=== PATIENT | female | born 1965 | race Caucasian/White ===

== ENCOUNTER 2022-12-15 07:59 | Outpatient (OUT) | payer OTHER, SELFPAY ==
--- NOTE | 2022-12-15 08:07 | CT_ITS ---
The [address] [address] Patient Name: JOSE THOMAS MRN: [id number] date: 1965 Sex: F Assigned Patient Location: CT Current Patient Location: CT Accession/Order Number: [id number] Exam Date: 12/15/2022 08:12 Report Date: 12/15/2022 09:00 At the request of: KAITLYN JOY Procedure: CT lung screening low-dose EXAMINATION: CT lung screening low-dose HISTORY: Nicotine dependence F17.210 COMPARISON: No relevant comparison available. TECHNIQUE: Axial, Coronal, and Sagittal images were created without the administration of IV contrast material. Dose reduction techniques were achieved by using automated exposure control and/or adjustment of mA and/or kV according to patient size and/or use of iterative reconstruction technique. FINDINGS: LUNGS: Mild centrilobular and paraseptal emphysema with an upper lobe predominance. 0.8 x 0.5 cm subpleural density posterior medial left upper lobe axial image 32, nonspecific. Few scattered punctate pulmonary nodules, nonspecific PLEURA: No mass, effusion, or pneumothorax. VASCULATURE: No abnormality. KAY: No mass or pathologic adenopathy. MEDIASTINUM: No mass or pathologic adenopathy. CARDIAC: No enlargement, pericardial thickening, or significant calcification. AORTA: No aneurysm or dissection. CHEST WALL: No mass or axillary adenopathy BONES: No bone lesion or fracture. LIMITED ABDOMEN: Surgical clips from cholecystectomy OTHER: Negative. IMPRESSION: LUNG SCREENING: Lung-RADS Category 2- Benign Appearance or Behavior. Nodules with a very low likelihood of becoming a clinically active cancer due to size or lack of growth. 2. Continue annual screening with LDCT in 12 months. Electronically authenticated by: GUERRERO VELASQUEZ Date: 12/15/2022 09:00
== END 2022-12-15 08:00 ==
LOC: CT 08:03
PROVIDERS: PCP Family Medicine; Visit Provider Family Medicine
DX: F17.210 Nicotine dependence, cigarettes, uncomplicated (principal)
CPT/HCPCS: 71271

== ENCOUNTER 2023-01-11 09:04 | Outpatient (OUT) | payer OTHER, SELFPAY ==
--- NOTE | 2023-01-11 09:09 | FL_ITS ---
The [address] [address] Patient Name: JOSE THOMAS MRN: [id number] date: 1965 Sex: F Assigned Patient Location: [place] Current Patient Location: [place] Accession/Order Number: [id number] Exam Date: 01/11/2023 09:30 Report Date: 01/11/2023 20:05 At the request of: KAITLYN JOY Procedure: FL upper GI w air PROCEDURE: FL upper GI w air, FL small bowel follow through, FL cineradiography COMPARISON: None. HISTORY: Gastroesophageal Reflux Disease K21.9 TECHNIQUE: An air contrast upper gastrointestinal series with small bowel follow-through was performed in the usual manner. Standard level fluoroscopic mode of operation utilized. FINDINGS: ESOPHAGUS:Normal. No visible obstruction, dilatation, reflux or hernia STOMACH: Normal. No obstruction, mass, or ulceration. Normal motility. DUODENUM:Normal. No ulceration or diverticulum. OTHER: The patient vomited during the procedure and declined further oral contrast. Oral contrast seen flowing through the duodenum and proximal to mid jejunum with no contrast identified past the mid jejunum at 120 minutes. The patient declined further imaging. FL/FL upper GI w air IMPRESSION: No gastroesophageal reflux disease Normal appearance of the stomach No contrast identified past the mid jejunum at 2 hours Electronically authenticated by: GUERRERO VELASQUEZ Date: 01/11/2023 20:05
--- NOTE | 2023-01-11 09:09 | FL_ITS ---
The [address] [address] Patient Name: JOSE THOMAS MRN: [id number] date: 1965 Sex: F Assigned Patient Location: [place] Current Patient Location: [place] Accession/Order Number: [id number] Exam Date: 01/11/2023 10:05 Report Date: 01/11/2023 20:05 At the request of: KAITLYN JOY Procedure: FL small bowel follow through PROCEDURE: FL upper GI w air, FL small bowel follow through, FL cineradiography COMPARISON: None. HISTORY: Gastroesophageal Reflux Disease K21.9 TECHNIQUE: An air contrast upper gastrointestinal series with small bowel follow-through was performed in the usual manner. Standard level fluoroscopic mode of operation utilized. FINDINGS: ESOPHAGUS:Normal. No visible obstruction, dilatation, reflux or hernia STOMACH: Normal. No obstruction, mass, or ulceration. Normal motility. DUODENUM:Normal. No ulceration or diverticulum. OTHER: The patient vomited during the procedure and declined further oral contrast. Oral contrast seen flowing through the duodenum and proximal to mid jejunum with no contrast identified past the mid jejunum at 120 minutes. The patient declined further imaging. FL/FL small bowel follow through IMPRESSION: No gastroesophageal reflux disease Normal appearance of the stomach No contrast identified past the mid jejunum at 2 hours Electronically authenticated by: GUERRERO VELASQUEZ Date: 01/11/2023 20:05
== END 2023-01-11 09:05 | disposition home or self-care (01) ==
LOC: FL 09:04
PROVIDERS: PCP Family Medicine; Visit Provider Family Medicine
DX: K21.9 Gastro-esophageal reflux disease without esophagitis (principal); E11.9 Type 2 diabetes mellitus without complications
CPT/HCPCS: 74246; 74248; 76120

== ENCOUNTER 2023-07-28 13:53 | Outpatient (OUT) | payer OTHER, SELFPAY | END 2023-07-28 13:54 | disposition home or self-care (01) | LOC: MN 13:54 | PROVIDERS: PCP Family Medicine | DX: E11.9 Type 2 diabetes mellitus without complications (principal) | CPT/HCPCS: G0108 ==

== ENCOUNTER 2023-09-23 09:41 | Outpatient (OUT) | payer OTHER, SELFPAY ==
[2023-09-23 09:58] LABS: Basophils Percent Auto 0.6 % (0.2-2.0); Eosinophils Absolute Auto 0.1 10^3/uL (0.0-0.7); Eosinophils Percent Auto 1.6 % (0.9-7.0); Hematocrit 32.9 % (36.0-48.0); Hemoglobin 11.3 g/dL (12.0-16.0); Immature Granulocytes Abs Auto 0.11 10^3/uL (0.00-0.03); Immature Granulocytes Pct Auto 1.6 % (0.0-0.5); Lymphocytes Absolute Auto 1.5 10^3/uL (1.2-3.8); Lymphocytes Percent Auto 21.7 % (20.5-60.0); Mean Corpuscular HGB Conc 34.3 g/dL (29.9-35.2); Mean Corpuscular Hemoglobin 41.4 pg (26.7-34.0); Mean Platelet Volume 10.1 fL (9.5-13.5); Monocytes Absolute Auto 0.4 10^3/uL (0.3-0.8); Neutrophils Absolute Auto 4.6 10^3/uL (1.4-6.5); Neutrophils Percent Auto 68.5 % (43.0-75.0); Platelet Count 192 10^3/uL (150-450); Red Blood Count 2.73 10^6/uL (4.20-5.40); Red Cell Distribution Width 14.9 % (11.0-15.0); White Blood Count 6.7 10^3/uL (4.0-11.0)
[2023-09-23 10:31] LABS: Mean Corpuscular Volume 120.5 fL (81.0-99.0)
[2023-09-23 11:26] LABS: Estimated Average Glucose 151 mg/dL; Glycohemoglobin A1C 6.9 % (4.5-6.2)
[2023-09-23 11:40] LABS: Free T4 1.23 ng/dL (0.76-1.46)
[2023-09-23 11:44] LABS: Alanine Aminotransferase 48 U/L (14-59); Albumin Level 3.6 g/dL (3.4-5.0); Alkaline Phosphatase 157 U/L (46-116); Anion Gap 13.9; Aspartate Amino Transferase 25 U/L (15-37); BUN Creatinine Ratio 17.9; Bilirubin Total 0.7 mg/dL (0.2-1.0); Calcium 8.8 mg/dL (8.5-10.1); Carbon Dioxide 28.3 mmol/L (21.0-32.0); Chloride 100 mmol/L (98-107); Chol HDL Ratio 5.2; Cholesterol 151 mg/dL (<=200); Estimated GFR (African America >60 (>=60); Estimated GFR (Non-African Ame >60 (>=60); Globulin 3.6 g/dL; Glucose 138 mg/dL (74-106); HDL Cholesterol 29 mg/dL (40-60); Potassium 4.2 mmol/L (3.5-5.1); Sodium 138 mmol/L (136-145); Thyroid Stimulating Hormone 1.845 uIU/mL (0.358-3.740); Total Protein 7.2 g/dL (6.4-8.2); Triglycerides 165 mg/dL (<=150)
== END 2023-09-23 09:42 | disposition home or self-care (01) ==
LOC: LAB 09:44
PROVIDERS: PCP Family Medicine; Visit Provider Family Medicine
DX: Z00.00 Encounter for general adult medical examination without abnormal findings (principal); E78.00 Pure hypercholesterolemia, unspecified; E03.9 Hypothyroidism, unspecified; K57.30 Diverticulosis of large intestine without perforation or abscess without bleeding; R53.83 Other fatigue
CPT/HCPCS: 36415; 80053; 80061; 83036; 84439; 84443; 84481; 85025

== ENCOUNTER 2023-11-24 08:07 | Outpatient (OUT) | payer OTHER, SELFPAY ==
--- NOTE | 2023-11-24 08:12 | FL_ITS ---
The [address] [address] Patient Name: JOSE THOMAS MRN: [id number] date: 1965 Sex: F Assigned Patient Location: [place] Current Patient Location: [place] Accession/Order Number: [id number] Exam Date: 11/24/2023 08:20 Report Date: 11/24/2023 10:31 At the request of: KAITLYN JOY Procedure: FL cineradiography EXAMINATION: FL upper GI w air, FL small bowel follow through, FL cineradiography HISTORY: Gastroesophageal Reflux Disease K21.9 COMPARISON: No relevant comparison available. TECHNIQUE: Upper GI and small bowel series was performed in the usual manner. Standard level fluoroscopic mode of operation utilized. FINDINGS: ESOPHAGUS: Normal. No visible obstruction, dilatation, reflux or hernia. STOMACH: Normal. No obstruction, mass, or ulceration. Normal motility. DUODENUM: Normal. No ulceration or diverticulum. JEJUNUM: Normal. Normal motility. No obstruction or visible lesion. ILEUM: Normal. Normal motility. No obstruction or visible lesion. OTHER: Internal Communications Specialist image demonstrates rotatory dextrocurvature of the spine. Surgical clips from cholecystectomy. Degenerative spondylosis. Small bowel transit time between 30 and 45 minutes FL/FL cineradiography IMPRESSION: Normal upper GI and small bowel follow-through Electronically authenticated by: GUERRERO VELASQUEZ Date: 11/24/2023 10:31
--- NOTE | 2023-11-24 08:12 | FL_ITS ---
The [address] [address] Patient Name: JOSE THOMAS MRN: [id number] date: 1965 Sex: F Assigned Patient Location: [place] Current Patient Location: [place] Accession/Order Number: [id number] Exam Date: 11/24/2023 08:20 Report Date: 11/24/2023 10:31 At the request of: KAITLYN JOY Procedure: FL small bowel follow through EXAMINATION: FL upper GI w air, FL small bowel follow through, FL cineradiography HISTORY: Gastroesophageal Reflux Disease K21.9 COMPARISON: No relevant comparison available. TECHNIQUE: Upper GI and small bowel series was performed in the usual manner. Standard level fluoroscopic mode of operation utilized. FINDINGS: ESOPHAGUS: Normal. No visible obstruction, dilatation, reflux or hernia. STOMACH: Normal. No obstruction, mass, or ulceration. Normal motility. DUODENUM: Normal. No ulceration or diverticulum. JEJUNUM: Normal. Normal motility. No obstruction or visible lesion. ILEUM: Normal. Normal motility. No obstruction or visible lesion. OTHER: Senior Pensions Administrator image demonstrates rotatory dextrocurvature of the spine. Surgical clips from cholecystectomy. Degenerative spondylosis. Small bowel transit time between 30 and 45 minutes FL/FL small bowel follow through IMPRESSION: Normal upper GI and small bowel follow-through Electronically authenticated by: GUERRERO VELASQUEZ Date: 11/24/2023 10:31
--- NOTE | 2023-11-24 08:12 | FL_ITS ---
The [address] [address] Patient Name: JOSE THOMAS MRN: [id number] date: 1965 Sex: F Assigned Patient Location: [place] Current Patient Location: [place] Accession/Order Number: [id number] Exam Date: 11/24/2023 08:20 Report Date: 11/24/2023 10:31 At the request of: KAITLYN JOY Procedure: FL upper GI w air EXAMINATION: FL upper GI w air, FL small bowel follow through, FL cineradiography HISTORY: Gastroesophageal Reflux Disease K21.9 COMPARISON: No relevant comparison available. TECHNIQUE: Upper GI and small bowel series was performed in the usual manner. Standard level fluoroscopic mode of operation utilized. FINDINGS: ESOPHAGUS: Normal. No visible obstruction, dilatation, reflux or hernia. STOMACH: Normal. No obstruction, mass, or ulceration. Normal motility. DUODENUM: Normal. No ulceration or diverticulum. JEJUNUM: Normal. Normal motility. No obstruction or visible lesion. ILEUM: Normal. Normal motility. No obstruction or visible lesion. OTHER: Industrial Relations Worker image demonstrates rotatory dextrocurvature of the spine. Surgical clips from cholecystectomy. Degenerative spondylosis. Small bowel transit time between 30 and 45 minutes FL/FL upper GI w air IMPRESSION: Normal upper GI and small bowel follow-through Electronically authenticated by: GUERRERO VELASQUEZ Date: 11/24/2023 10:31
== END 2023-11-24 08:08 | disposition home or self-care (01) ==
LOC: FL 08:07
PROVIDERS: PCP Family Medicine; Visit Provider Family Medicine
DX: K21.9 Gastro-esophageal reflux disease without esophagitis (principal)
CPT/HCPCS: 74246; 74248; 76120

== ENCOUNTER 2023-12-28 11:16 | Outpatient (OUT) | payer OTHER, SELFPAY ==
--- NOTE | 2023-12-28 | US_ITS ---
The [address] [address] Patient Name: JOSE THOMAS MRN: [id number] date: 1965 Sex: F Assigned Patient Location: [place] Current Patient Location: [place] Accession/Order Number: [id number] Exam Date: 12/28/2023 11:30 Report Date: 12/28/2023 13:04 At the request of: KAITLYN JOY Procedure: US venous doppler LE LT EXAMINATION: US venous doppler LE LT HISTORY: Cellulitis ; trauma to left gaona one week ago COMPARISON: No relevant comparison available. FINDINGS: REGION: Left lower extremity THROMBI: None. COMPRESSIBILITY: Normal compressibility. FLOW: Normal waveform and antegrade flow between 5 and 20 cm/s. OTHER: None. US/US venous doppler LE LT IMPRESSION: 1. No deep vein thrombus within the left lower extremity. Electronically authenticated by: TERELL HINTON Date: 12/28/2023 13:04
--- NOTE | 2023-12-28 11:22 | XR_ITS ---
The [address] [address] Patient Name: JOSE THOMAS MRN: [id number] date: 1965 Sex: F Assigned Patient Location: Current Patient Location: Accession/Order Number: [id number] Exam Date: 12/28/2023 11:25 Report Date: 12/29/2023 13:40 At the request of: KAITLYN JOY Procedure: XR ankle LT min 3V PROCEDURE: XR tibia fibula LT 2V, XR ankle LT min 3V HISTORY: Cellulitis COMPARISON: None. FINDINGS: BONES:Prior mechanical fusion of the first tarsal-metatarsal joint. Unremarkable knee joint and ankle joint. No fracture, acute abnormality, or significant arthropathy. SOFT TISSUES:No visible soft tissue swelling. EFFUSION:None visible. OTHER: Negative. XR/XR ankle LT min 3V IMPRESSION: 1. No acute bone abnormality. 2. No significant degenerative joint disease. 3. No suspicious radiopaque foreign body. Electronically authenticated by: TERELL HINTON Date: 12/29/2023 13:40
--- NOTE | 2023-12-28 11:22 | XR_ITS ---
The [address] [address] Patient Name: JOSE THOMAS MRN: [id number] date: 1965 Sex: F Assigned Patient Location: Current Patient Location: Accession/Order Number: [id number] Exam Date: 12/28/2023 11:25 Report Date: 12/29/2023 13:40 At the request of: KAITLYN JOY Procedure: XR tibia fibula LT 2V PROCEDURE: XR tibia fibula LT 2V, XR ankle LT min 3V HISTORY: Cellulitis COMPARISON: None. FINDINGS: BONES:Prior mechanical fusion of the first tarsal-metatarsal joint. Unremarkable knee joint and ankle joint. No fracture, acute abnormality, or significant arthropathy. SOFT TISSUES:No visible soft tissue swelling. EFFUSION:None visible. OTHER: Negative. XR/XR tibia fibula LT 2V IMPRESSION: 1. No acute bone abnormality. 2. No significant degenerative joint disease. 3. No suspicious radiopaque foreign body. Electronically authenticated by: TERELL HINTON Date: 12/29/2023 13:40
== END 2023-12-28 11:17 | disposition home or self-care (01) ==
LOC: US 11:16
PROVIDERS: PCP Family Medicine; Visit Provider Family Medicine
DX: L03.90 Cellulitis, unspecified (principal)
CPT/HCPCS: 73590; 73610; 93971

== ENCOUNTER 2024-05-10 09:23 | Outpatient (OUT) | payer OTHER, SELFPAY ==
--- NOTE | 2024-05-10 09:28 | CT_ITS ---
[address] [address] Patient Name: JOSE THOMAS MRN: [id number] date: 1965 Sex: F Assigned Patient Location: CT Current Patient Location: Accession/Order Number: [id number] Exam Date: 05/10/2024 09:32 Report Date: 05/11/2024 06:05 At the request of: KAITLYN JOY Procedure: CT lung screening low-dose EXAMINATION: CT lung screening low-dose HISTORY: Cigarette Nicotine Dependence COMPARISON: No relevant comparison available. TECHNIQUE: Axial, Coronal, and Sagittal images were created without the administration of IV contrast material. Dose reduction techniques were achieved by using automated exposure control and/or adjustment of mA and/or kV according to patient size and/or use of iterative reconstruction technique. FINDINGS: LUNGS: Stable 8 x 5 mm opacity/infiltrate within posterior medial right lung apex adjacent the spine (previously inadvertently described on the left). Mild emphysematous changes. PLEURA: No mass, effusion, or pneumothorax. VASCULATURE: No abnormality. KAY: No mass or pathologic adenopathy. MEDIASTINUM: No mass or pathologic adenopathy. CARDIAC: No enlargement, pericardial thickening, or pericardial effusion. Coronary Artery calcifications: Coronary calcifications are absent. AORTA: No aneurysm or dissection. CHEST WALL: No mass or axillary adenopathy BONES: No bone lesion or fracture. LIMITED ABDOMEN: No suspicious findings. Limited images of the upper abdomen. OTHER: Negative. CT/CT lung screening low-dose IMPRESSION: 1. Lung-RADS 2- Benign Appearance or Behavior. Nodules with a very low likelihood of becoming a clinically active cancer due to size or lack of growth. Follow-up CT Chest in 1 year. Electronically authenticated by: TERELL HINTON Date: 05/11/2024 06:05
--- OUTSIDE RECORDS SUMMARY | 2024-05-10 09:41 | XMS_ITS | CCD ---
Author Organization [facility] CliniSyoh Care Team Providers Care Tack Welder Name Role Phone Stuart Juan Unavailable Dewey Davidson Attending Unavailable Dewey Davidson Admitting Unavailable Kaitlyn Downing Primary Care Unavailable Kaitlyn Downing Primary Care Physician [phone] RUFINO ., DR SAHNI Admitting Unavailable HOY ., DR SAHNI Attending Unavailable HOY ., DR SAHNI Primary Care Unavailable HOY ., DR SAHNI Consulting Unavailable HOY ., DR SAHNI Admitting Unavailable HOY ., DR SAHNI Attending Unavailable HOY ., DR SAHNI Primary Care Unavailable HOY ., DR SAHNI Consulting Unavailable TIMMIS, SHANNAN Admitting Unavailable TIMMIS, SHANNAN Attending Unavailable HOY ., DR SAHNI Primary Care Unavailable TIMMIS, SHANNAN Consulting Unavailable ZIEBER, DR TERELL Gambino Consulting Unavailable HOY ., DR SAHNI Admitting Unavailable HOY ., DR SAHNI Attending Unavailable HOY ., DR SAHNI Primary Care Unavailable SALAM, Pandey Referring Unavailable SALAM, Pandey Attending Unavailable SALAM, Pandey Admitting Unavailable SALAM, Pandey Attending Unavailable Odalys Lozano Attending Unavailable Timmis, Shannan H Referring Unavailable Timmis, Shannan H Attending Unavailable Timmis, Shannan H Admitting Unavailable Kaitlyn Downing MD Primary Care Provider ROSA KEVIN Attending Unavailable TIMMIS, SHANNAN H Attending Unavailable TIMMIS, SHANNAN H Attending Unavailable MISTY RAYA Attending Unavailable Allergies Allergy Classification Reported Allergen(s) Allergy Type Date of Onset Reaction(s) Facility (7 sources) Sulfonamides (Antibiotic) Propensity to adverse reactions (John) 07/08/2011 Nausea/Vomiting/Di [facility] [employer] Other (12 sources) Simvastatin; Translations: [simvastatin] Drug Allergy Unknown (qualifier value) [facility] [place] (8 sources) Sulfamethoxazole / Trimethoprim; Translations: [sulfamethoxazole- trimethoprim] Drug Allergy Influenza-like illness (finding) [facility] (4 sources) Sulfamethoxazole; Translations: [sulfamethoxazole] Drug Allergy Unknown [facility] (1 source) Sulfamethoxazole / Trimethoprim Drug Allergy 017 [facility] (2 sources) Sulfonamides (Antibiotic) Drug allergy (disorder) 017 [facility] (2 sources) Simvastatin Allergy to substance 023 [facility] Healthcare Work Phone: (2 sources) Sulfonamides (Antibiotic) Drug Intolerance 018 [facility] Healthcare (2 sources) Trimethoprim Drug Allergy 023 [facility] Healthcare (3 sources) metFORMIN Drug Allergy 024 [facility] (3 sources) Sulfonamides (Antibiotic) Allergy to substance 024 (John) 07/08/2011 Nausea/Vomiting/Di arrhea Nausea/Vomiting... [facility] (3 sources) glimeperide Allergy to substance 024 Gastrointestinal Upset [facility] Medications Current Medications Medication Drug Class(es) Dates Sig (Normalized) Sig (Original) [id number] 200 actuat albuterol 0.09 mg/actuat metered dose inhaler (9 sources) beta2-Adrenergic Agonist albuterol HFA (Proventil HFA) 90 mcg/act inhaler every 4 (four) hours. 0 Active take 2 puff(s) by in halation every four hours as needed Proventil HFA 108 (90 Base) MCG/ACT 2 puff as needed Inhalation every 4 hrs Not-Taking Blood Glucose Meter - (7 sources) Blood Glucose Me ter - as directed Active Blood-Glucose Sensor (Freest yle Ravin 3 Sensor) device (4 sources) Start: 04-10-2024 Blood-Glucose Sensor (Freestyle Ravin 3 Sensor) device Active 0 .ROUTE .MEDSUPPLY April 10, 2024 11:09am change every 14 days Start: 03-08-2024 End: 04-10-2024 Blood-Glucose Sensor (Freest yle Ravin 3 Sensor) device Discontinued 0 .ROUTE .MEDSUPPLY 2 March 08, 2024 12:00am April 10, 2024 11:11am change every 14 days Start: 03-08-2024 Blood-Glucose Sensor (Freestyle Ravin 3 Sensor) device Active 0 .ROUTE .MEDSUPPLY 2 March 08, 2024 12:00am change every 14 days cetirizine hydrochloride 10 mg oral tablet (2 sources) Histamine-1 Receptor Antagonist Start: 05-03-2023 End: 05-02-2024 take 1 tablet by mouth once daily as needed cetirizine (ZyrTEC) 10 MG tablet Indications: Chronic pansinusitis Take 1 tablet (10 mg) by mouth Daily as needed for allergies. 30 tablet 05/03/2023 05/02/2024 Active cholecalciferol 0.05 mg oral capsule (7 sources) Vitamin D take 1 capsule by mouth every twenty-four hours Vitamin D3 50 MCG (1999 UT) 1 capsule Orally Once a day Active citalopram 20 mg oral tablet (19 sources) Serotonin Reuptake Inhibitor Start: 03-08-2024 take 20 mg by mouth once daily Citalopram Active 20 MG PO Daily March 08, 2024 12:00am Start: 08-27-2017 take 20 mg by mouth once daily Celexa 20 mg, Oral, Daily, Other (see comment) Start Date: 08/27/17 Status: Ordered clonazePAM 2 mg oral tablet (19 sources) Benzodiazepine Start: 03-08-2024 take 2 mg by mouth twice daily Clonazepam Active 2 MG PO Twice daily March 08, 2024 12:00am Start: 08-27-2017 take 2 mg by mouth t hree times daily Klonopin 2 mg, Oral, TID, Other (see comment) Start Date: 08/27/17 Status: Ordered KlonoPIN 2 MG ta blet every 8 (eight) hours. 0 Active dicyclomine hydrochloride 10 mg oral capsule (3 sources) Anticholinergic Start: 05-22-2022 End: 05-17-2023 take 1 capsule by mouth four times daily Bentyl 10 mg Cap 10 mg = 1 cap(s), Oral, QID, X 30 day(s), # 120 cap(s), Refills(s) 11, Pharmacy: [id number], 154, cm, 05/22/22 7:21:00 EST, Height/Length Dosing, 74, kg, 05/22/22 7:21:00 EST, Weight Dosing Start Date: 05/22/22 Stop Date: 05/17/23 Status: Ordered famotidine 20 mg oral tablet (2 sources) Histamine-2 Receptor Antagonist Start: 06-03-2022 End: 09-01-2022 take 1 tablet by mouth once daily at bedtime Pepcid 20 mg Tab 20 mg = 1 tab(s), Oral, Once a day (at bedtime), X 90 day(s), # 90 tab(s), Refills(s) 0, Pharmacy: [facility] #[id number], 154, cm, 06/03/22 14:37:00 EST, Height/Length Dosing, 74.5, kg, 06/03/22 14:37:00 EST, Weight Dosing Start Date: 06/03/22 Stop Date: 09/01/22 Status: Ordered fluticasone propionate 0.05 mg/actuat metered dose nasal spray (2 sources) Corticosteroid Start: 05-03-2023 End: 05-02-2024 take 2 spray(s) nasal route in the morning fluticasone (Flonase) 50 MCG/ACT nasal spray Indications: Chronic pansinusitis Administer 2 sprays into each nostril in the morning. Shake gently. Before first use, prime pump. After use, clean tip and replace cap.. 16 g 11 05/03/2023 05/02/2024 Active FreeStyle Ravin 2 Sensor Systm - (7 sources) Start: 02-18-2022 FreeStyle Ravin 2 Sensor Systm - as directed use with ravin reader change q 14 days, check glucose ac, hs and prn for 84 days Jan, Active FreeStyle Ravin 2 Sensor Systm - as directed use with ravin reader change q 14 days, check glucose ac, hs and prn for 84 days Active glimepiride 4 mg oral tablet (7 sources) Sulfonylurea Start: 02-07-2020 take 1 tablet by mouth once daily Amaryl 4 mg Tab 4 mg = 1 tab(s), Oral, Daily, Refills(s) 0, Blood glucose Start Date: 02/07/20 Status: Ordered glipiZIDE er 5 mg 24 hr extended release oral tablet (2 sources) Sulfonylurea take 1 tablet by mouth every twenty-four hours in the morning glipiZIDE XL (Glucotrol XL) 5 MG 24 hr tablet Take 5 mg by mouth in the morning. Do not crush, chew, or split. . 0 Active Insulin Glargine-Yfgn (Semglee(Insulin Glarg-Yfgn)Pen) 100 unit/mL (3 mL) insulin pen (5 sources) Start: 03-08-2024 Insulin Glargine-Yfgn (Semglee(Insulin Glarg-Yfgn)Pen) 100 unit/mL (3 mL) insulin pen Active 36 UNIT SUBCUT Every evening 40 March 08, 2024 1:00pm Start: 03-08-2024 End: 03-08-2024 Insulin Glargine-Yfgn (Semgl ee(Insulin Glarg-Yfgn)Pen) 100 unit/mL (3 mL) insulin pen Discontinued 36 UNIT SUBCUT Every evening March 08, 2024 12:00am March 08, 2024 1:01pm Start: 03-08-2024 Insulin Glargi ne-Yfgn (Semglee(Insulin Glarg-Yfgn)Pen) 100 unit/mL (3 mL) insulin pen Active 36 UNIT SUBCUT Every evening March 08, 2024 12:00am levothyroxine sodium 0.125 mg oral tablet (19 sources) l-Thyroxine Start: 03-08-2024 take 1 tablet by mouth once daily in the morning Levothyroxine (Synthroid) 125 mcg tablet Active 125 MCG PO Every morning March 08, 2024 12:00am Start: 08-27-2017 Synthroid 125 microgram, Oral, Daily, Thyroid Start Date: 08/27/17 Status: Ordered levothyroxine (S ynthroid, Levoxyl) 100 MCG tablet Take 125 mcg by mouth in the morning. 0 Active take 1 tablet by coleen th every twenty-four hours Synthroid 125 MCG 1 tablet Orally Once a day Active liothyronine sodium 0.005 mg oral tablet (19 sources) l-Triiodothyronine Start: 03-08-2024 take 10 ug by mouth once daily in the morning Liothyronine Active 10 MCG PO Every morning March 08, 2024 12:00am Start: 04-14-2022 take 1 ug by mouth once daily Cytomel 5 mcg Tab mcg tab(s), Oral, Daily, Refills(s) 0, Thyroid Start Date: 04/14/22 Status: Ordered liothyronine (Cy tomel) 5 MCG tablet 1 (one) time each day at the same time. 0 Active take 2 tablets by mo [facility] every twenty-four hours Liothyronine Sodium 5 MCG 2 tablet on an empty stomach Orally Once a day Active meclizine hydrochloride 25 mg oral tablet (1 source) Antiemetic Start: 04-10-2024 take 25 mg by mouth four times daily Meclizine Active 25 MG PO Four times daily April 10, 2024 12:00am pantoprazole 40 mg delayed release oral tablet (15 sources) Proton Pump Inhibitor Start: 04-10-2024 Pantoprazole Active MG PO April 10, 2024 12:00am Start: 04-14-2022 take 1 tablet by coleen once daily pantoprazole 40 mg Oral EC Tab 40 mg = 1 tab(s), Oral, Daily, # 30 tab(s), Refills(s) 3, Pharmacy: [facility] #[id number], 154, cm, 04/14/22 12:07:00 EDT, Height/Length Dosing, 74, kg, 04/14/22 12:07:00 EDT, Weight Dosing Start Date: 04/14/22 Status: Ordered Start: 04-14-2022 take 1 tablet by coleen once daily pantoprazole 40 mg Oral EC Tab 40 mg = 1 tab(s), Oral, Daily, # 30 tab(s), Refills(s) 3, Pharmacy: [facility] #[id number], 154, cm, 04/14/22 12:07:00 EDT, Height/Length Dosing, 74, kg, 04/14/22 12:07:00 EDT, Weight Dosing Start Date: 04/14/22 Status: Ordered rosuvastatin 5 mg oral capsule (20 sources) HMG-CoA Reductase Inhibitor Start: 03-08-2024 take 5 mg by mouth once daily at bedtime Rosuvastatin Active 5 MG PO Daily at bedtime March 08, 2024 12:00am Start: 08-27-2017 take 5 mg by mouth o nce daily at bedtime Crestor 5 mg, Oral, Once a day (at bedtime), High cholesterol Start Date: 08/27/17 Status: Ordered rosuvastatin (Cr estor) 5 MG tablet 1 (one) time each day at the same time. 0 Active take 1 tablet by coleen th in the morning rosuvastatin (Crestor) 10 MG tablet Take 10 mg by mouth in the morning. 0 Active 0.25 mg, 0.5 mg dose 1.5 ml semaglutide 1.34 mg/ml pen injector (6 sources) Start: 02-18-2022 Ozempic (0.25 or 0.5 MG/DOSE) 2 MG/1.5ML as directed Subcutaneous once weekly Jan, Active SITagliptin 100 mg oral tablet (7 sources) Dipeptidyl Peptidase 4 Inhibitor take 1 tablet by mouth every twenty-four hours Januvia 100 MG 1 tablet Orally Once a day for 90 days Active Tirzepatide (1 source) Start: 04-10-2024 Tirzepatide (Mounjaro) 5 mg/0.5 mL pen injector Active 5 MG SUBCUT every week April 10, 2024 12:00am Completed/Discontinued Medications Medication Drug Class(es) Dates Sig (Normalized) Sig (Original) CPAP Machine (7 sources) CPAP Machine Not-Taking hydrocortisone 25 mg/ml topical cream (7 sources) Corticosteroid Start: 08-17-2017 Anusol-HC 2.5 % 1 application to affected area Rectal Twice a day for 30 day(s) Jul, Not-Taking hyoscyamine sulfate 0.125 mg sublingual tablet (7 sources) take 1 tablet under the tongue three times daily as needed Levsin/SL 0.125 MG 1 tablet under the tongue and allow to dissolve as needed Sublingual Three times a day Not-Taking metFORMIN hydrochloride 500 mg oral tablet (7 sources) Biguanide Start: 01-08-2015 take 1 tablet by mouth twice daily at mealtime metFORMIN HCl 500 MG 1 tablet with meals Orally Twice a day for 90 days Dec, Not-Taking 24 hr mirabegron 25 mg extended release oral tablet (7 sources) beta3-Adrenergic Agonist take 1 tablet by mouth every twenty-four hours Myrbetriq 25 MG 1 tablet Orally Once a day Not-Taking simvastatin 20 mg oral tablet (7 sources) HMG-CoA Reductase Inhibitor take 1 tablet by mouth every twenty-four hours Zocor 20 MG 1 tablet in the evening Orally Once a day Not-Taking Tirzepatide (3 sources) Start: 03-08-2024 End: 04-10-2024 Tirzepatide (Mounjaro) 2.5 mg/0.5 mL pen injector Discontinued 2.5 MG SUBCUT every week 2 March 08, 2024 12:00am April 10, 2024 11:10am pt has free 1 month trial offer voucher Start: 03-08-2024 Tirzepatide (M ounjaro) 2.5 mg/0.5 mL pen injector Active 2.5 MG SUBCUT every week 2 March 08, 2024 12:00am pt has free 1 month trial offer voucher Problems Active Problems Problem Classification Problem Date Documented Da te Episodic/Chronic Abdominal pain (19 sources) Abdominal pain; Translations: [Abdominal pain, other specified site] Onset: 2 Episodic Administrative/social admission (9 sources) Dietary counseling and surveillance; Translations: [Patient encounter status] Onset: 2 Resolved: 2 Episodic Allergic reactions (2 sources) Atopic dermatitis; Translations: [Other atopic dermatitis] Onset: 3 04-29-2023 Chronic Anal and rectal conditions (7 sources) Rectal pain; Translations: [Other specified diseases of anus and rectum] Episodic Anxiety disorders (14 sources) Agoraphobia; Translations: [Panic disorder] 02-07-2020 Chronic Congestive heart failure; nonhypertensive (1 source) Unspecified diastolic (congestive) heart failure; Translations: [UNSPECIFIED DIASTOLIC HEART FAILURE] Onset: 3 Chronic Deficiency and other anemia (1 source) Anemia, unspecified; Translations: [ANEMIA UNSPECIFIED] Onset: 3 Episodic Diabetes mellitus with complications (20 sources) Hypoglycemia due to type 2 diabetes mellitus; Translations: [Type 2 diabetes mellitus with hypoglycemia without coma] Onset: 2 Resolved: 2 Chronic Diabetes mellitus without complication (20 sources) Diabetes mellitus; Translations: [Type 2 diabetes mellitus] Onset: 3 02-07-2020 Chronic Diabetes mellitus without complication (8 sources) Prediabetes; Translations: [Other abnormal glucose] Onset: 3 Episodic Disorders of lipid metabolism (20 sources) Hyperlipidemia; Translations: [Hyperlipidemia, unspecified] Onset: 2 Resolved: 2 Chronic Diverticulosis and diverticulitis (7 sources) Diverticulitis 02-07-2020 Chronic Esophageal disorders (11 sources) Gastroesophageal reflux disease; Translations: [Gastroesophageal reflux disease without esophagitis] Onset: 2 02-07-2020 Chronic Esophageal disorders (6 sources) Esophagitis; Translations: [Esophagitis, other specified type] Episodic Essential hypertension (9 sources) Essential hypertension; Translations: [Essential (primary) hypertension] Onset: 2 Resolved: 2 Chronic Gastritis and duodenitis (5 sources) Gastritis; Translations: [Gastritis, unspecified, without bleeding] Onset: 2 Episodic Genitourinary symptoms and ill-defined conditions (7 sources) Genuine stress incontinence 02-07-2020 Chronic Hemorrhoids (7 sources) External hemorrhoids; Translations: [Residual hemorrhoidal skin tags] Episodic Hypertension with complications and secondary hypertension (1 source) Hypertensive heart disease with heart failure; Translations: [HTN HEART DISEASE W/HEART FAIL] Onset: 3 Chronic Mood disorders (7 sources) Depressive disorder 02-07-2020 Chronic Nausea and vomiting (1 source) Nausea; Translations: [Nausea] Onset: 2 Episodic Nutritional deficiencies (8 sources) Vitamin D deficiency; Translations: [Vitamin D deficiency, unspecified] Onset: 3 Chronic Other and unspecified benign neoplasm (7 sources) Hyperplastic polyp of large intestine 02-07-2020 Episodic Other and unspecified benign neoplasm (4 sources) History of polyp of colon; Translations: [Personal history of colonic polyps] Onset: 2 Episodic Other ear and sense organ disorders (1 source) Bilateral hearing loss; Translations: [Conductive hearing loss, unilateral, right ear with restricted hearing on the contralateral side] 08-11-2023 Chronic Other ear and sense organ disorders (7 sources) Lesion of external ear 02-14-2020 Episodic Other endocrine disorders (1 source) Hypoglycemia, unspecified; Translations: [Hypoglycemia, unspecified] 04-10-2024 Chronic Other gastrointestinal disorders (8 sources) Heartburn; Translations: [Heartburn] Onset: 2 Episodic Other gastrointestinal disorders (7 sources) History of pancreatitis 02-07-2020 Episodic Other nutritional; endocrine; and metabolic disorders (9 sources) Body mass index 30+ - obesity; Translations: [Body mass index (BMI) 30.0-30.9, adult] 03-08-2024 Chronic Other nutritional; endocrine; and metabolic disorders (4 sources) Body mass index (BMI) 30.0-30.9, adult; Translations: [Body Mass Index 30.0-30.9, adult] Onset: 2 Resolved: 2 Chronic Other nutritional; endocrine; and metabolic disorders (7 sources) Body mass index 25-29 - overweight; Translations: [Body mass index (BMI) 28.0-28.9, adult] Episodic Other nutritional; endocrine; and metabolic disorders (7 sources) Overweight; Translations: [Overweight] Episodic Other screening for suspected conditions (not mental disorders or infectious disease) (2 sources) Screening for malignant neoplasm of colon done; Translations: [Encounter for screening for malignant neoplasm of colon] Onset: 2 Episodic Other upper respiratory disease (4 sources) Chronic rhinitis; Translations: [CHRONIC RHINITIS] Onset: 2 Chronic Other upper respiratory disease (2 sources) Chronic laryngitis; Translations: [Chronic laryngitis] Onset: 3 04-29-2023 Chronic Other upper respiratory disease (2 sources) Chronic rhinitis; Translations: [Chronic rhinitis] Onset: 3 04-29-2023 Chronic Other upper respiratory infections (3 sources) Other chronic sinusitis; Translations: [Chronic sinusitis] Onset: 2 04-29-2023 Chronic Otitis media and related conditions (3 sources) Otitis media; Translations: [Unspecified nonsuppurative otitis media, left ear] Onset: 3 06-09-2023 Episodic Residual codes; unclassified (9 sources) Sleep apnea; Translations: [Sleep apnea, unspecified] Onset: 3 02-07-2020 Chronic Residual codes; unclassified (6 sources) Tobacco user; Translations: [Tobacco use disorder, current] Episodic Spondylosis; intervertebral disc disorders; other back problems (13 sources) Cervical disc disorder; Translations: [Lumbosacral spondylosis] Onset: 3 02-07-2020 Chronic Substance-related disorders (7 sources) Smoker 08-27-2017 Chronic Comment on above: Added secondary to d ocumentation in Social History. Thyroid disorders (20 sources) Hypothyroidism; Translations: [Unspecified hypothyroidism] Onset: 3 02-07-2020 Chronic Thyroid disorders (7 sources) Thyroid dysfunction 08-27-2017 Episodic Unclassified (7 sources) Patient encounter status 04-14-2022 Past or Other Problems Problem Classification Problem Date Documented Da te Episodic/Chronic Conditions associated with dizziness or vertigo (2 sources) Peripheral vertigo; Translations: [Other peripheral vertigo, unspecified ear] Onset: 04-29-2023 04-29-2023 Episodic Diseases of mouth; excluding dental (2 sources) Leukoplakia of oral mucosa and tongue; Translations: [Leukoplakia of oral mucosa, including tongue] Onset: 04-29-2023 Resolved: 04-29-2023 04-29-2023 Episodic Other nervous system disorders (1 source) Anosmia; Translations: [ANOSMIA] Onset: 03-18-2022 Episodic Other nervous system disorders (2 sources) Loss of sense of smell; Translations: [Anosmia] Onset: 04-29-2023 04-29-2023 Episodic Other non-epithelial cancer of skin (2 sources) Squamous cell carcinoma of skin of trunk; Translations: [Squamous cell carcinoma of skin of other part of trunk] Onset: 04-29-2023 04-29-2023 Episodic Other non-traumatic joint disorders (4 sources) Pain in unspecified joint; Translations: [PAIN IN UNSPECIFIED JOINT] Onset: 01-15-2022 Episodic Other non-traumatic joint disorders (2 sources) Pain in right knee; Translations: [Pain in joint, lower leg] Onset: 04-29-2023 04-29-2023 Episodic Other nutritional; endocrine; and metabolic disorders (1 source) Body mass index (BMI) 29.0-29.9, adult Onset: 03-11-2022 Resolved: 03-11-2022 Episodic Results Test Name Value Interpretation Reference Range Facility HbA1c HPLC (Bld) [Mass fract ion]on 03-08-2024 HbA1c (Bld) [Mass fraction] 8.5 % [facility] No Panel Informationon 03-08 Bedside Glucose 243 [facility] Auditory function testson Right Ear: Mild conductive hearing loss above 3K Hz Left Ear: Mild to moderate sensorineural hearing loss above 3K Hz [facility]illofacial w/o Contras ton 05-31-2023 CT Maxillofacial w/o Contrast Exam Date/Time: 05/31/2023 09:56 EST Reason for Exam: J32.4 Report IMPRESSION: NO ACUTE FINDINGS. CT MAXILLOFACIAL WITHOUT INTRAVENOUS CONTRAST MEDIUM. History: Sinus pressure for 18 months.. Technical factors: CT maxillofacial was obtained and formatted as 1 mm contiguous axial images. Sagittal and coronal reconstruction obtained during postprocessing. Comparison: None. Findings: Bilateral frontal, ethmoid, sphenoid, and maxillary sinuses are patent. Radiopaque cutaneous marker identified lateral to mid right maxillary sinus. Nasal septum midline. Ostiomeatal complexes patent bilaterally. Mastoid air cells well pneumatized bilaterally. Bilateral ocular globes, extraocular muscles, optic nerves, retrobulbar fat without anomaly. No fracture. No bone lesion. All CT scans at this facility use dose modulation, iterative reconstruction, and/or weight based dosing when appropriate to reduce radiation dose to as low as reasonably achievable. Ordering Provider: Shannan Morales FINAL REPORT Dictated: 05/31/2023 2:22 pm Aneesh Crowe MD Signed (Electronic Signature): 05/31/2023 2:22 pm Signed by: Aneesh Crowe MD Transcribed by: KERVIN Technologist: [facility] Consent for Treatmenton Consent for Treatment [id number] DC#1.00[facility] Physician Orderon 05-03-2023 Physician Order [id number]. [id number] 4D#[id number] [facility] Physician Order [id number]. [id number] AA#1.00TIFF [facility] Coding Summary.on 10-07-2022 Coding Summary. CD:[id number] bWw+PGhlYWQ+VM0WUUR nJ35yqFGwcN0uO7SWFC lOSywgQVBQTElOSyIgb dLiNO8poLHkSYNm IC8+WE8dCAQhXnhrbWK zh4E2zEK3U36zeu6rJJ svsCT9KOFgKwWhhfbqj 7sxkMn6GKplLtuxHaRb BWQavN17XEN6aE63Bc6 8xWDlbXKmx2cktQm9Bs AoPLKbBUS2qUvzLDlpt 2MfPAUkN81flMAjp6Z0 IGNvbGxhcHNlOyBlbXB 7uR1yTVyrypjqi9dize yhSzf3od13mCPoh8G5l IA3U3RnznU4KHYksTDx QgugtCCSaI8jtzdxd5c govlyKvRaAYXuPLg5BH w2OBEoaAetOiEyQL68V BP1GXTkngJjC9UpHVCk oWrcXzG1i6H3Yz0DQ8S RBmxvI7IPCNJQRFjmgW Q+SA90xi30V8AsEizrT qg9QIGnQCR7gAD7zM4f YTVaPBcyy2L9dET5I5I wdlFqip5aq1nqEPUbIU upG17zuXTzw3K5LMOzi BO2EXOogAhrLoGplH73 Oyc+BTMivDnlz6FqBtg tl4rhs4shtBr2VctdFT GjdbVnqRhcUFM3y4GhC v5lSKNojSU4lFK5aG7x GbUxUfY1IBbwM985UyH efKAaPezlI03nT0AtcW A+MMXyOrt1XXWszJypM L5dB1QcBWKosxxnwTWk nHfxSP5uMTAulzctSQE mkN8pIGTbC4h9VyIfHk B3JBvzK0FwAINuylqlH v45zY1xBdOfPtQ2QTnr M2AyooG6KCHqyNZjPGi vWML6J02nc8B6OTMbFW UbMDU0vQW3kX3uvTrow jogbGVmdDsgdmVydGlj OMgmEGflI822IQCkeMs nPkNvZGluZyBEYXRlOi AgMDQvMTIvMjAyMzwvd GQ+ONYpBXE7kAufPFQn wPIlWUtnYn6lqMciiJw bVZ3tECTczryuIUAhdT 9aDDTvaXGzcAkwTB6lE VLvphjbw156NuUqLIL1 IJSgxPZvT3VvqE3aFzQ nOCXgYUBiG6EymDLjIN eoB345FEreZnU1HEBvx bPlE6RxOZTiaWfhTbE6 g5M1Qf9Bq4JicoprX2F puSMjMcWsAjchFMp4H9 RkPjwvdHI+SH68IUQcC I79HIb0JSV6zLnfBSuk QOPwI0HomA5nHyCzDKT kZGRkOyc+PHRhYmxlIH dpZHRoPScxMDAlJyBzd KqaZQ7dGn1oQUVfKHKp gIksiEDfYhEvf8yzVJL dLInpUW9ezSasX7ThtP Q7ZNBwm7a3Au73T59sQ 3JvdXA+HEGerXZ5mJS9 dY6sJdMzUqG2CUfjR04 3QyTosNYuTpwsx7ojf2 pysCd9EpB6WCLcxvMsl RifKPF9i9IbQa53X02z IHdpZHRoPSIxNSUiIHZ tqCnqov4sjN5yOx5+PG KodYM4qIJ1aA0nTcIfW iM4DXbvK725PlLwcOEi Syyrp7nwf5pnzTt1OtP nYSXjtcCohAtfMVA3t7 DnTz30Q8HgyYzwm5GhE yt9vj85pKOxx0U8cAR3 W7JhHZYfvvzktXFzaSd mMX5uKCEtgcbuPPQigE 8tGGWbM2j6WiCiYoQ7O QywX8UtjgW0WDTfbGPh BPArrEWDqY4khquwa4q ptwbdMxIePTHqJPa8EQ b7EZYliAcfDuZeEOG8B aC1DYW1lCVboE4xhGnx plpslH9yDzd+TJB8uRK eiJFXWB5hAvjutBQ+PH YnEWK4pIruDFqbYMCco O1wKKRgG7z4QwGgWfU3 CMslT2KrprM5ARNxcWT vNEFjmXHNvC5ehulol3 kcbhzwKzUiVTJuEGe9U Ya7XAKqqMobZgWlJGW1 JxN1PPR7jSKhtD7djXr ophfhdY9lRzn+QmlydG rjWRJ1ZTq2J6XfRld0K OToaBpcUZ4zmSVxGNac Bc0hsHqdrWzoAZ0tTJG jpxhzq540BoVks9hxHI UbcCEmBXnvEOB6F67kb 3S9DCHdQHVfQJT9lDR2 nF4zvButduxkpRBviRv gdmVydGljYWwtYWxpZ2 58GALzxMyoHhHpLSb3T 5FqXak4UGMppSinJP9o qKNjQNxxXj5juLgcpTu hAM0iMAZrovztl332Xz Krk5vzLGCnzUXzIAxnQ EZ4J62sl6W5BVVrBNLf SAB6zVI9hJ9agFxzfnp gbGVmdDsgdmVydGljYW kpDZsvT873IZNysEemE sSymRu3N6ZwBos8LDVu vXhpON7ixPSpTNmeMq9 kmTmbhAzvBQ2kANAwek jvb313SuJzz0evUNUwv KVyXCcvCWS4N47wm8Q5 XTApXMOyUME5xIJ7nR7 hbGlnbjogbGVmdDsgdm YsaQotBIpfPPqbF655V HRvcDsnPlBhdGllbnQg MAdbCNx2I2OeGgjnoHT +ST29XWUfGC39iWMmxG Ezu5qraWa8LcOqBSQeT AW2gJyoSSqlb8SqXTMu Z00mlWWbq7C0HJIxgRr jvSPpTkImuIZ1jQ6kGC bkckrog6uwqzikJyyur 5ycdc27lP28Y66qJSlf ZHRoPSIzMCUiIHZhbGl qpq1rhM5gWb9+PGNvbC Q0lSP5xB8yTPOfShB8V WpbN381NmSftNZxViwn s8xcq9dyrNx3RhN0FQX hjcQcmTccGDM5z3NhXp 81B69jXTimFYHqPBRdX KIsHIYxeLavod6jkN0g Ii8+HVKclCI9uCP7pE0 pIoItQhJ8NLsiO398Ba ZghWTbYvwhT36oB6Wti XA+HLYnPny2JQJawJmb WT2vnDPlZMazSu1mYLZ 2RoXfDzQuVPebD9JjMC LfqtaftooomLK6XOUnC SItmV22Ai7lhEgbNDRm vDCNvT7gbbnni8qmfpy sScFzCZFoDMn8JWm9XH MrhBoxIbUzAJF0VpQ3B LG1yIXgtO3qvSnpocyl aF0lI5RcYKWpzyrpIq0 2zE9hKwVjXoM4RZcyWj c+WklMTEVTLCBCUkVOR EEgRTwvdGQ+PHRkIHN0 kQjnUYkyOONkxA9qMSC vI3u1YoPaZjY6LPquF2 UiBAEfrtwvAx78wA4cW nCrIkC4ERlqI9UqriU5 GHDwyXFlNRndLVV7O56 qa1T2CXWoYXTrWMV6yF N4sI8dwVaxocmlqSRsl DsgdmVydGljYWwtYWxp B784LEEuoXktWjRvMiU mWqE7GlM1Q4NtLri6SG DqmBapES2osDNfOGsfR c8vbQnxaJfkDP0tDKKf zibpWUGqaJ5nUCDfhDU vaRpnKF9mCLAflccdj4 31JdLcGGO1CGIxvETsM 9IqwI3wXbBlNGUhDVMl Y4YbgLUtQQrxM510NLv sJeR8YPZobaTtQ7QdQG JnrKdsYwO0d7I8Wd63F SBZZWFyczwvdGQ+PHRk AED7aAjtAVumWZLvvH9 kLURhQ2t7AwAiVfD8JU kqK1ZxEQNuxwikGf31q A8tVpAeXhW4XQokN0Vy dfL2YQYpoNMuFNnvMMP 0E03ex4V8JUSeUFMyMC O0mVJ7hI8hnJfcdbdbu GVmdDsgdmVydGljYWwt OSgvZ003AMTriWpsLlK lbWFsZTwvdGQ+PHRkIH H0eXskGHkfJXRlhL7pJ DRaX8e4TlLgQmW0IAwv H7AfTRCqpxmyGw45qM5 hHnUyQdX4PPxyM1Xygx C4TIXsaTViXQbvNZS3D 73ov6G9NBQxMJCbJCD7 wIO1qI7ngKhkhfiymOQ mdDsgdmVydGljYWwtYW tnU481LHDxrOpqYr65o AZvsAtlniK2F1MoTgxs dHI+TQ89SYWeYH47oWB tpNEzo8ajeFd4ToByAZ FoFTA6rUqwUZgjr9XmP XFdQ30psZAgy5K6GXFb iJnrhNQbGoZzgEY0mC5 kOUpliiaqi6xyctptEv hbs9olve23cZ29Q46uD HdpZHRoPSIzMCUiIHZh wZcpsv5bfB5dVj4+PGN whVA3vSM5oH9lGzXbIn R2FLrcC430XrWbfYQvA xmij7dgl5ozmLn0UgXx BMEhhiUopNczQDX5y1O wJo42U89lPSazJCLyQZ NtYTQcGCDoqJmokc8lz G9wIi8+RA4th3xanw59 mH88gNG+GPOfURQ9kGi jNWmrFMFtvB0eSSfqDz R7IYFzLiWppX89iRJeS TgrXl9qoHgemUhjCT1g ELHtpymjp325GsJbt4h uGWUdcQDjCVbtYFP1T7 6mt9J2FKMuQASzAFQ4q ZN0fD5qyQfuoharvFZi dDsgdmVydGljYWwtYWx eX748WWEnbYodFqZwkG KyV7zmvpYQSA0nJwxek GQ+RXJuAHV1gSuiDInv RJNcjI5vOMVhR3x0XeC jRjV4BTdlB6KwlcZ6YO OysAHtWLUcvXUCvM7xy rlyx5fxvtnwNdZwIAEs ZRb0MBu7UNBsxXafKuI qUJJ2KiP1HRY0gQYdkE 8amJmsyyyuwA6lQyn+R klOOjwvdGQ+PHRkIHN0 eXemAJgoQFZilU5kRJV cF7n3EfAtOcM5CBxqP1 GbqcG9EAOreRAcSOZtj ZEUyG1gasnxk1holyvw OrVaLYJuUKz5HIk0OPW brGnoMsNbPGW5GiH8NB T6sMTgjX9ldGldnzqgc G9wOyc+TVJOOjwvdGQ+ AFHnTDK4zMnsNZjgLYP jfL9tPBMpB6b6IiVpTq Q9CHcgP7SdozT7MJObg SBrDYHjrVNBlD5zjudu s5tkwbfpYjAhMZTzASw 6NNf7SPIjjYaaDtDrYA C0IiE3EDG6dRHjyX8uu EpigmhbeJ5rAcb+UGF5 VTR2JC20BW89F6OtSmb vdGFibGU+PHRhYmxlIH dpZHRoPScxMDAlJyBzd OiaNM7eFw2tPNGrOQVn bGxhcHNl (more content not included)... Normal [facility] INSULINon 09-14-2022 Insulin 36.5 uIU/mL Critically high 2.6-24.9 [facility] Comment on above: Performed By: #### I NSULIN #### [facility] [address] [place] [address] Dr. Kizzy Lebron BNPon 09-12-2022 Natriuretic peptide B (Bld) [Mass/Vol] 44.0 pg/mL Normal <=900.0 [facility] Comment on above: Performed By: #### C MP, BNP, TSH, LIPID, T7 #### [facility] [address] [place] [address] Dr. Kizzy Lebron CBC AUTO DIFFon 09-12-2022 BASO # 0.1 103/ul Normal 0.0-0.1 [facility] Comment on above: Performed By: #### C BC #### [facility] [address] [place] [address] Dr. Kizzy Lebron Basophils/100 WBC (Bld) 0.8 % Normal 0.2-2.0 [facility] Comment on above: Performed By: #### C BC #### [facility] [address] [place] [address] Dr. Kizzy Lebron EO # 0.1 103/ul Normal 0.0-0.7 [facility] Comment on above: Performed By: #### C BC #### [facility] [address] [place] [address] Dr. Kizzy Lebron Eosinophils/100 WBC (Bld) 1.9 % Normal 0.9-7.0 [facility] Comment on above: Performed By: #### C BC #### [facility] [address] [place] [address] Dr. Kizzy Lebron Erythrocyte distribution width (RBC) [Ratio] 16.0 % Critically high 11.0-15.0 [facility] Comment on above: Performed By: #### C BC #### [facility] [address] [place] [address] Dr. Kizzy Lebron Hematocrit (Bld) [Volume fraction] 41.1 % Normal 36.0-48.0 [facility] Comment on above: Performed By: #### C BC #### [facility] [address] [place] [address] Dr. Kizzy Lebron Hemoglobin (Bld) [Mass/Vol] 13.5 g/dL Normal 12.0-16.0 [facility] Comment on above: Performed By: #### C BC #### [facility] [address] [place] [address] Dr. Kizzy Lebron IG # 0.09 10e3/ul Critically high 0.00-0.03 [facility] Comment on above: Performed By: #### C BC #### [facility] [address] [place] [address] Dr. Kizzy Lebron IG % 1.2 % Critically high 0.0-0.5 [facility] Comment on above: Performed By: #### C BC #### [facility] [address] [place] [address] Dr. Kizzy Lebron LYMPH # 2.0 103/ul Normal 1.2-3.8 [facility] Comment on above: Performed By: #### C BC #### [facility] [address] [place] [address] Dr. Kizzy Lebron Lymphocytes/100 WBC (Bld) 27.0 % Normal 20.5-60.0 [facility] Comment on above: Performed By: #### C BC #### [facility] [address] [place] [address] Dr. Kizzy Lebron MANUAL DIFF REQ NO Normal [facility] Comment on above: Performed By: #### C BC #### [facility] [address] [place] [address] Dr. Kizzy Lebron MCH (RBC) [Entitic mass] 35.8 pg Critically high 26.7-34.0 [facility] Comment on above: Performed By: #### C BC #### [facility] [address] [place] [address] Dr. Kizzy Lebron MCHC (RBC) [Mass/Vol] 32.8 g/dL Normal 29.9-35.2 [facility] Comment on above: Performed By: #### C BC #### [facility] [address] [place] [address] Dr. Kizzy Lebron MCV (RBC) [Entitic vol] 109.0 fL Critically high 81.0-99.0 [facility] Comment on above: Performed By: #### C BC #### [facility] [address] [place] [address] Dr. Kizzy Lebron MONO # 0.5 103/ul Normal 0.3-0.8 [facility] Comment on above: Performed By: #### C BC #### [facility] [address] [place] [address] Dr. Kizzy Lebron Monocytes/100 WBC (Bld) 6.9 % Normal 1.7-12.0 [facility] Comment on above: Performed By: #### C BC #### [facility] [address] [place] [address] Dr. Kizzy Lebron NEUT # 4.6 103/ul Normal 1.4-6.5 [facility] Comment on above: Performed By: #### C BC #### [facility] [address] [place] [address] Dr. Kizzy Lebron Neutrophils/100 WBC (Bld) 62.2 % Normal 43.0-75.0 [facility] Comment on above: Performed By: #### C BC #### [facility] [address] [place] [address] Dr. Kizzy Lebron Platelet mean volume (Bld) [Entitic vol] 9.7 fL Normal 9.5-13.5 [facility] Comment on above: Performed By: #### C BC #### [facility] [address] [place] [address] Dr. Kizzy Lebron PLT 208 103/ul Normal 150-450 [facility] Comment on above: Performed By: #### C BC #### [facility] [address] [address] [address] Kizzy Lebron RBC 3.77 106/ul Critically low 4.20-5.40 [facility] Comment on above: Performed By: #### C BC #### [facility] [address] [address] [address] Kizzy Lebron WBC 7.4 103/ul Normal 4.0-11.0 [facility] Comment on above: Performed By: #### C BC #### [facility] [address] [address] [address] Kizzy Lebron FREE THYROXINE INDEX T7on FTI 2.60 Normal 1.30-4.50 [facility] Comment on above: Performed By: #### C MP, BNP, TSH, LIPID, T7 #### [facility] [address] [address] [address] Kizzy Lebron T3U 31.0 % Normal 30.0-39.0 [facility] Comment on above: Performed By: #### C MP, BNP, TSH, LIPID, T7 #### [facility] [address] [address] [address] Kizzy Lebron T4 [Mass/Vol] 8.40 ug/dL Normal 4.80-13.90 [facility] Comment on above: Performed By: #### C MP, BNP, TSH, LIPID, T7 #### [facility] [address] [place] [address] Dr. Kizzy Lebron GLYCOHEMOGLOBIN A1Con 2022 ADA RECOMMENDATION SEE BELOW Normal [facility] Comment on above: Result Comment: ADA RECOMMENDED LIMIT 4.0 - 6.0 ADA THERAPEUTIC TARGET < 7.0 ACTION SUGGESTED > 7.0 Performed By: #### A 1C ####[facility] [address] [address]Dr. Kizzy Lebron Glucose [Mass/Vol] 151 mg/dL Normal [facility] Comment on above: Performed By: #### A 1C ####[facility] [address] [place], [place] [address]Ky. Kizzy Lebron HbA1c (Bld) [Mass fraction] 6.9 % Critically high 4.5-6.2 [facility] Comment on above: Performed By: #### A 1C ####[facility] [address] [place], [place] [address]Po. Kizzy Lebron IRONon 09-12-2022 Iron [Mass/Vol] 57.0 ug/dL Normal 50.0-170.0 [facility] Comment on above: Performed By: #### I DEDE, VITAD ####[facility] [address] [id number] Kizzy Lebron LIPID PROFILEon 09-12-2022 CHOL-HDL RATIO NORM SEE BELOW Normal [facility] Comment on above: Result Comment: 3.3 - 4.4 LOW RISK 4.4 - 7.1 AVERAGE RISK 7.1 - 11.0 MODERATE RISK >11.0 HIGH RISK Performed By: #### C MP, BNP, TSH, LIPID, T7 #### [facility] [address] [address] [address] Kizzy Lebron Cholesterol [Mass/Vol] 185 mg/dL Normal <=200 [facility] Comment on above: Performed By: #### C MP, BNP, TSH, LIPID, T7 #### [facility] [address] [address] [address] Kizzy Lebron Cholesterol in HDL [Mass/Vol] 31 mg/dL Critically low 40-60 [facility] Comment on above: Performed By: #### C MP, BNP, TSH, LIPID, T7 #### [facility] [address] [address] [address] Kizzy Lebron Cholesterol in LDL [Mass/Vol] 109.8 mg/dL Normal [facility] Comment on above: Performed By: #### C MP, BNP, TSH, LIPID, T7 #### [facility] [address] [address] [address] Kizzy Lebron Cholesterol.total/Cho lesterol in HDL [Mass ratio] 6.0 {ratio} Normal [facility] Comment on above: Performed By: #### C MP, BNP, TSH, LIPID, T7 #### [facility] [address] [address] [address] Kizzy Lebron HDL NORMAL > or = 60 mg/dl - LOW CARDIOVASCULAR RISK <40 mg/dl - HIGH CARDIOVASCULAR RISK Normal [facility] Comment on above: Performed By: #### C MP, BNP, TSH, LIPID, T7 #### [facility] [address] [address] [address] Kizzy Lebron LDL CALC NORMAL SEE BELOW Normal [facility] Comment on above: Result Comment: <100 mg/dl OPTIMAL 100 - 129 mg/dl NEAR OR ABOVE OPTIMAL 130 - 159 mg/dl BORDERLINE HIGH 160 - 189 mg/dl HIGH >190 mg/dl VERY HIGH Performed By: #### C MP, BNP, TSH, LIPID, T7 #### [facility] [address] [place] [address] Dr. Kizzy Lebron Triglyceride [Mass/Vol] 221 mg/dL Critically high <=150 [facility] Comment on above: Performed By: #### C MP, BNP, TSH, LIPID, T7 #### [facility] [address] [address] [address] Kizzy Lebron VLDL CALC 44.2 mg/dL Normal [facility] Comment on above: Performed By: #### C MP, BNP, TSH, LIPID, T7 #### [facility] [address] [address] [address] Kizzy Lebron PROF 14(COMP METB)on 023 Albumin [Mass/Vol] 3.7 g/dL Normal 3.4-5.0 [facility] Comment on above: Performed By: #### C MP, BNP, TSH, LIPID, T7 #### [facility] [address] [place] [address] Dr. Kizzy Lebron Albumin/Globulin [Mass ratio] 1.1 {ratio} Normal [facility] Comment on above: Performed By: #### C MP, BNP, TSH, LIPID, T7 #### [facility] [address] [address] [address] Kizzy Lebron ALP [Catalytic activity/Vol] 166 U/L Critically high 46-116 [facility] Comment on above: Performed By: #### C MP, BNP, TSH, LIPID, T7 #### [facility] [address] [place] [address] Dr. Kizzy Lebron ALT [Catalytic activity/Vol] 50 U/L Normal 14-59 [facility] Comment on above: Performed By: #### C MP, BNP, TSH, LIPID, T7 #### [facility] [address] [place] [address] Dr. Kizzy Lebron Anion gap [Moles/Vol] 13.2 mmol/L Normal Th e [facility] Comment on above: Performed By: #### C MP, BNP, TSH, LIPID, T7 #### [facility] [address] [place] [address] Dr. Kizzy Lebron AST [Catalytic activity/Vol] 34 U/L Normal 15-37 [facility] Comment on above: Performed By: #### C MP, BNP, TSH, LIPID, T7 #### [facility] [address] [place] [address] Dr. Kizzy Lebron Bilirubin [Mass/Vol] 0.4 mg/dL Normal 0.2-1.0 [facility] Comment on above: Performed By: #### C MP, BNP, TSH, LIPID, T7 #### [facility] [address] [place] [address] Dr. Kizzy Lebron Calcium [Mass/Vol] 9.3 mg/dL Normal 8.5-10.1 [facility] Comment on above: Performed By: #### C MP, BNP, TSH, LIPID, T7 #### [facility] [address] [place] [address] Dr. Kizzy Lebron Chloride [Moles/Vol] 105 mmol/L Normal 98-107 [facility] Comment on above: Performed By: #### C MP, BNP, TSH, LIPID, T7 #### [facility] [address] [place] [address] Dr. Kizzy Lebron CO2 [Moles/Vol] 28.1 mmol/L Normal 21.0-32.0 [facility] Comment on above: Performed By: #### C MP, BNP, TSH, LIPID, T7 #### [facility] [address] [address] [address] Kizzy Lebron Creatinine [Mass/Vol] 0.59 mg/dL Normal 0.55-1.02 [facility] Comment on above: Performed By: #### C MP, BNP, TSH, LIPID, T7 #### [facility] [address] [place] [address] Dr. Kizzy Lebron EGFR-AF MONEGASQUE >60 Normal >=60 [facility] Comment on above: Performed By: #### C MP, BNP, TSH, LIPID, T7 #### [facility] [address] [place] [address] Dr. Kizzy Lebron EGFR-NON AF MONEGASQUE >60 Normal >=60 [facility] Comment on above: Performed By: #### C MP, BNP, TSH, LIPID, T7 #### [facility] [address] [place] [address] Dr. Kizzy Lebron Globulin (S) [Mass/Vol] 3.4 g/dL Normal [facility] Comment on above: Performed By: #### C MP, BNP, TSH, LIPID, T7 #### [facility] [address] [place] [address] Dr. Kizzy Lebron Glucose [Mass/Vol] 105 mg/dL Normal 74-106 [facility] Comment on above: Performed By: #### C MP, BNP, TSH, LIPID, T7 #### [facility] [address] [place] [address] Dr. Kizzy Lebron Potassium [Moles/Vol] 4.3 mmol/L Normal 3.5-5.1 [facility] Comment on above: Performed By: #### C MP, BNP, TSH, LIPID, T7 #### [facility] [address] [place] [address] Dr. Kizzy Lebron Protein [Mass/Vol] 7.1 g/dL Normal 6.4-8.[address] [facility] Comment on above: Performed By: #### C MP, BNP, TSH, LIPID, T7 #### [facility] [address] [address] [address] Kizzy Lebron Sodium [Moles/Vol] 142 mmol/L Normal 136-145 [facility] Comment on above: Performed By: #### C MP, BNP, TSH, LIPID, T7 #### [facility] [address] [address] [address] Kizzy Lebron Urea nitrogen [Mass/Vol] 11.0 mg/dL Normal 7.0-18.0 [facility] Comment on above: Performed By: #### C MP, BNP, TSH, LIPID, T7 #### [facility] [address] [address] [address] Kizzy Lebron Urea nitrogen/Creatinine [Mass ratio] 18.6 mg/mg Normal [facility] Comment on above: Performed By: #### C MP, BNP, TSH, LIPID, T7 #### [facility] [address] [place] [address] Dr. Kizzy Lebron TSHon 09-12-2022 TSH 0.444 uIU/mL Normal 0.358-3.740 [facility] Comment on above: Performed By: #### C MP, BNP, TSH, LIPID, T7 #### [facility] [address] [address] [address] Kizzy Lebron VITAMIN D 25 OHon 09-12-2022 VIT D 25-OH 17.6 ng/mL Normal [facility] Comment on above: Performed By: #### I HEMANT AGUAYO ####[facility] [address] [address]DrRomana Lebron VIT D RANGES SEE BELOW Normal [facility] Comment on above: Result Comment: <20 ng/mL Vit D deficient 20 - <30 ng/mL Vit D insufficient 30 - 100 ng/mL Vit D sufficient >100 ng/mL Potential Toxicity Performed By: #### I DEDE VITABDIAZIZ ####[facility] [address] [id number]. Kizzy Lebron Transfer Inon 09-02-2022 Transfer In [id number] C5#[id number]:127 Normal [facility] Auth for Release of Medical Recordson 09-01-2022 Auth for Release of Medical Records [id number] 00#[id number]:127 Normal [facility] Physician Orderon 08-17-2022 Physician Order [id number] [id number]#1.00CD:127 Normal [facility] MRI Cholangiogram Pancreatog jaida (mrcp)on 06-18-2022 MRI Cholangiogram Pancreatography (mrcp) Exam Date/Time: 06/16/2022 09:17 EST Reason for Exam: Elevated LFTs;Other (please specify) Report IMPRESSION: Cholecystectomy. No bile duct dilation. Hepatomegaly. No focal liver lesion within limitations of the study. EXAMINATION: MRI Cholangiogram Pancreatography (mrcp) HISTORY: Elevated LFTs. Enlarged liver. Abdominal pain. Nausea and vomiting. History of cholecystectomy. TECHNIQUE: Multiplanar MRI with multiple sequences without contrast. 3-D images were post-processed on a dedicated off-line workstation and were reviewed by the interpreting physician. Comparison: None. Contrast: IV contrast: None. Oral Contrast: None Noncontrast imaging has limitations in evaluation of some pathology. RESULT: Liver: Overall not well assessed on this noncontrast study focused to the biliary system. Within these limits, no focal lesion. Hepatomegaly. Biliary: Cholecystectomy. No bile duct dilation or filling defects in the biliary system. Spleen: No mass or splenomegaly. Pancreas: No mass or duct dilation. Adrenals: No mass. Kidneys: No hydronephrosis. No suspicious lesion. GI tract: Visualized bowel unremarkable. Lymph nodes: No lymphadenopathy. Mesentery / Peritoneum / Retroperitoneum: No ascites or mass. Report Vasculature: No aortic aneurysm. Bones/Soft Tissues: Unremarkable within limits of the study. Lower chest: Unremarkable within limits of the study. FINAL REPORT Dictated: 06/18/2022 2:51 pm Lul Bustillos MD Signed (Electronic Signature): 06/18/2022 2:51 pm Signed by: Lul Bustillos MD Transcribed by: KERVIN Technologist: STACIA Normal [facility] Consent for Treatmenton 05-29 Consent for Treatment [id number] [id number]#1.00CD:127 Normal [facility] RAD - MRI Screening Formon 1 08-17-2021 RAD - MRI Screening Form [id number] 62#1.00CD:127 Normal [facility] Physician Orderon 06-08-2022 Physician Order [id number]#[id number]:127 Normal [facility] Ambulatory Visit Summaryon 1 08-04-2021 Ambulatory Visit Summary ANDREIA THOMAS :1965 Visit Date:06/03/2022 Ambulatory Visit Instructions Your Diagnosis Epigastric pain Gastritis GERD (gastroesophageal reflux disease) History of colon polyps Your Care Team Attending Physician - Odalys Lozano CNP Primary Care Physician - Kaitlyn Downing MD This Is Your Medications List famotidine (Pepcid 20 mg Tab) Contact prescribing physician if questions or concerns citalopram (Celexa) clonazepam (Klonopin) dicyclomine (Bentyl 10 mg Cap) glimepiride (Amaryl 4 mg Tab) levothyroxine (Synthroid) liothyronine (Cytomel 5 mcg Tab) pantoprazole (pantoprazole 40 mg Oral EC Tab) rosuvastatin (Crestor) Procedures Performed Esophagogastroduode noscopy (05/22/2022), TVT with sling (09/10/2017), Abdominal hysterectomy, Cholecystectomy, Closed fracture of right wrist, feet, History of arthroplasty of right knee. Discharge Vitals Temperature (Temporal Artery) 36.1 ?C Heart Rate (Peripheral) 92 Blood Pressure 128/84 Height 154 cm Height 61 in Weight 74.5 kg Weight 163.9 lb BMI 31.41 Medications What How Much When Why Instructions New famotidine (Pepcid 20 mg Tab) 1 Tablets By Mouth Once a day (at bedtime) GERD (gastroesophageal reflux disease) Duration: 90 Days Pickup at [facility] Unchanged citalopram (Celexa) 20 Milligram By Mouth Every day Contact prescribing physician if questions or concerns Unchanged clonazepam (Klonopin) 2 Milligram By Mouth 3 times a day Contact prescribing physician if questions or concerns Unchanged dicyclomine (Bentyl 10 mg Cap) 1 Capsules By Mouth 4 times a day Duration: 30 Days Contact prescribing physician if questions or concerns Unchanged glimepiride (Amaryl 4 mg Tab) 1 Tablets By Mouth Every day Contact prescribing physician if questions or concerns Unchanged levothyroxine (Synthroid) 125 Microgram By Mouth Every day Contact prescribing physician if questions or concerns Unchanged liothyronine (Cytomel 5 mcg Tab) By Mouth Every day Contact prescribing physician if questions or concerns Unchanged pantoprazole (pantoprazole 40 mg Oral EC Tab) 1 Tablets By Mouth Every day Acute epigastric pain Nausea Abdominal pain Heartburn Contact prescribing physician if questions or concerns Unchanged rosuvastatin (Crestor) 5 Milligram By Mouth Once a day (at bedtime) Contact prescribing physician if questions or concerns Pharmacy Information [id number]: [address] [place], [place] [phone] Medications and Immunizations Administered Not Given influenza virus vaccine, inactivated, Patient Refuses Allergies Bactrim (Flu-like symptoms) Zocor (Unknown) simvastatin (Unknown, Unknown) sulfamethoxazole (Unknown) Problems Ongoing - Any problem that you are currently receiving treatment for. Acute epigastric pain Agoraphobia Cervical disc disease Depression Diabetes mellitus Diverticulitis Epigastric pain Gastritis GERD (gastroesophageal reflux disease) Heartburn History of colon polyps History of pancreatitis Hypercholesterolemi a Hyperplastic colon polyp Hypothyroidism Lesion of earlobe Screen for colon cancer Sleep apnea Smoker Stress incontinence Thyromegaly Normal [facility] Gastroenterology Office/Clin ic Noteon 06-03-2022 Gastroenterology Office/Clinic Note Chief Complaint EGD followup. HPI Staff This is a 56 year old female who presents today for a follow up to EGD. History of Present Illness Patient is a 56-year-old female who presents for follow-up from EGD completed 05/22/[address] Starks. PMH of Hypothyroidism and HLD- managed by patient's PCP. Patient was previously evaluated by Dr. Starks 04/14/2022 for nausea and abdominal pain. Note also indicated patient had COVID-19 3 months prior. Note from evaluation with Dr. Starks indicated patient with epigastric pain and was started on pantoprazole 40 mg daily. Patient also with reported nausea, heartburn. Patient was ordered EGD to further evaluate. Note also indicated patient had previous colonoscopy at outside facility 2 to 3 years ago?no record available to review during today's encounter and was requested for record 06/02/2022- no record available to review during today's encounter. EGD completed 05/22/2022 revealed normal esophagus, mild antral erythema, normal duodenum, stomach biopsy revealed mild chronic gastritis and hyperplastic regenerative changes, negative for intestinal metaplasia, negative for H. pylori, duodenal biopsy within normal limits?Dr. Starks recommended for patient to have an MRCP given abdominal pain and elevated LFTs. MRCP was denied by insurance and peer to peer to be planned on behalf of Dr. Starks. Labs completed 04/14/2022 revealed normal H&H, elevated RDW of 18.3, normal BUN, normal creatinine, elevated alk phos of 170, ALT of 83, and AST of 58?patient to follow-up with Dr. Starks for further work-up of elevated liver enzymes. During today's visit, patient reports she has hx. of elevated liver enzymes for years and explains her PCP told her in the past that her liver was enlarged- no results available to review during today's encounter. Sent message to staff to obtain record of colonoscopy that patient reports having completed in [place], [place] 2 years ago. Patient reports previous colonoscopy 2 years ago at outside facility revealed 2 polyps and was reportedly told to repeat in 10 years. Patient reports having previous ultrasound of abdomen within the last year at [facility]- requested for staff to obtain record, no outside record available to review during today's encounter. Is having epigastric pain for the last 6-7 months that has improved. Hx. cholecystectomy 10-15 years ago. Patient explains acid reflux has improved with pantoprazole 40mg daily however, is still having acid reflux occurring every night. Denies NSAID use. Denies ETOH use. Patient denies having any further nausea/vomiting. Denies fevers/chills, denies diarrhea, denies having any other GI complaints. Review of Systems ROS - Provider Constitutional: no fever, no chills. Skin: no Jaundice. ENMT: Denies dysphagia. Yes acid reflux- occurring most often at night. Respiratory: no shortness of breath. Cardiovascular: no chest pain. Gastrointestinal: no nausea, no vomiting, no diarrhea, no GI bleeding. Physical Exam Vitals & Measurements T: 36.1 ?C(Temporal Artery) HR: 92(Peripheral) BP: 128/84 HT: 61 in HT: 154 cm WT: 74.5 kg WT: 163.9 lb BMI: 31.41 General: Well developed, well nourished, in no acute distress Head: Normocephalic/atrau matic Lungs: Normal respiratory effort and clear to auscultation Cardio: Regular rate and rhythm, normal S1 and S2, no murmur, no rub Abdomen: Soft, non-distended, non-tender. Normoactive bowel sounds present in all 4 abdominal quadrants, bilaterally. Mental Status: Alert and oriented x3. Normal mood and affect Assessment/Plan 1. Epigastric pain (R10.13: Epigastric pain) Is having epigastric pain for the last 6-7 months that has improved. Patient reports having previous ultrasound of abdomen within the last year at [facility]- requested for staff to obtain record, no outside record available to review during today's encounter. Labs completed 04/14/2022 revealed normal H&H, elevated RDW of 18.3, normal BUN, normal creatinine, elevated alk phos of 170, ALT of 83, and AST of 58?patient to follow-up with Dr. Starks for further work-up of elevated liver enzymes. Reportedly had previous ultrasound of abdomen within the last year- requested for outside records regarding. EGD completed 05/22/2022 revealed normal esophagus, mild antral erythema, normal duodenum, stomach biopsy revealed mild chronic gastritis and hyperplastic regenerative changes, negative for intestinal metaplasia, negative for H. pylori, duodenal biopsy within normal limits?Dr. Starks ordered MRCP given abdominal pain and elevated LFTs. MRCP was denied by insurance and peer to peer to be planned on behalf of Dr. Starks. 2. Gastritis (K29.70: Gastritis, unspecified, without bleeding) EGD completed 05/22/2022 revealed mild antral erythema, stomach biopsy revealed mild chronic gastritis and hyperplastic regenerative changes, negative for intestinal metaplasia, negative for H. pylori- See HPI for further details regarding. Avoid NSAIDs. Leidy (more content not included)... Normal [facility] Comment on above: Result Comment: Elec tronically Signed By: Odalys Lozano CNP\.br\Date and Time Signed: 06/03/22 16:28 EST IntraOperative Documentson 1 08-04-2021 IntraOperative Documents [id number] [id number]:127 Normal [facility] CHEMISTRYOrdered By: SYSTEM SYSTEM on 04-14-2022 Albumin [Mass/Vol] 4.4 g/dL Normal 3.3 - 5.0 gm/dL [facility] Rem[facility] Albumin/Globulin [Mass ratio] 1.3 {ratio} Normal 1.1 - 2.2 [facility] ALP [Catalytic activity/Vol] 170 [iU]/d High 21 - 98 Int._Unit/L [facility] ALT No additional P-5'-P [Catalytic activity/Vol] 83 [iU]/d High 6 - 46 Int._Unit/L [facility] Anion gap [Moles/Vol] 14 mmol/L Normal 6 - 16 mEq/L [facility] AST [Catalytic activity/Vol] 58 [iU]/d High 5 - 43 Int._Unit/L [facility] Bilirubin [Mass/Vol] 0.4 mg/dL Normal 0.0 - 1 .1 mg/dL [facility] Calcium [Mass/Vol] 9.7 mg/dL Normal 8.9 - 11. 1 mg/dL [facility] Chloride [Moles/Vol] 101 mmol/L Normal 101 - 1 11 mmol/L [facility] CO2 [Moles/Vol] 27 mmol/L Normal 21 - 31 mmol/L [facility] Creatinine [Mass/Vol] 0.7 mg/dL Normal 0.5 - 1.3 mg/dL [facility] GFR/1.73 sq M.predicted among blacks MDRD (S/P/Bld) [Vol rate/Area] mL/min/1.73 m2 Normal >=59mL/min/1. 73 m2 [facility] Chem S GFR/1.73 sq M.predicted among non-blacks MDRD (S/P/Bld) [Vol rate/Area] mL/min/1.73 m2 Normal >=59mL/min/1. 73 m2 [facility] Chem S Globulin (S) [Mass/Vol] 3.3 g/dL Normal 1.4 - 4.0 gm/dL [facility] Glucose [Mass/Vol] 159 mg/dL Normal 55 - 199 mg/dL [facility] Lipase [Catalytic activity/Vol] 48 U/L Normal 13 - 58 unit/L [facility] Potassium [Moles/Vol] 4.1 mmol/L Normal 3.5 - 5.3 mmol/L [facility] Protein [Mass/Vol] 7.7 g/dL Normal 6.0 - 7.8 gm/dL [facility] Sodium [Moles/Vol] 138 mmol/L Normal 135 - 145 mmol/L [facility] Urea nitrogen [Mass/Vol] 8 mg/dL Normal 5 - 21 mg/dL [facility] Urea nitrogen/Creatinine [Mass ratio] 11 mg/mg Normal 10 - 20 [facility] HEMATOLOGYOrdered By: SYSTEM SYSTEM on 04-14-2022 Basophils/100 WBC (Bld) 0.6 % Normal 0.0 - 2.0 % [facility] HemeAutoSS Basophils/Leukocytes Auto (Bld) [Pure # fraction] 0.1 E9/L Normal 0.0 - 0.2 E9/L [facility]eAutoSS Eosinophils/100 WBC (Bld) 0.9 % Normal 0.0 - 8.0 % [facility]eAutoSS Eosinophils/Leukocyte s Auto (Bld) [Pure # fraction] 0.1 E9/L Normal 0.0 - 0.5 E9/L [facility]eAutoSS Lymphocytes/100 WBC (Bld) 22.4 % Normal 14.0 - 50.0 % [facility] HemeAutoSS Lymphocytes/Leukocyte s Auto (Bld) [Pure # fraction] 2.1 E9/L Normal 1.0 - 4.0 E9/L [facility] HemeAutoSS Monocytes/100 WBC (Bld) 7.1 % Normal 4.0 - 14.0 % [facility]eAutoSS Monocytes/Leukocytes Auto (Bld) [Pure # fraction] 0.7 E9/L Normal 0.2 - 1.0 E9/L [facility]eAutoSS Neutrophils/100 WBC (Bld) 69.0 % Normal 36.0 - 75.0 % [facility] HemeAutoSS Neutrophils/Leukocyte s Auto (Bld) [Pure # fraction] 6.4 E9/L Normal 2.0 - 7.5 E9/L [facility] HemeAutoSS HEMATOLOGYOrdered By: Katya jerez on 04-14-2022 Erythrocyte distribution width (RBC) [Ratio] 18.3 % High 10.9 - 14.2 % [facility] HemeAutoSS Hematocrit (Bld) [Volume fraction] 45.3 % Normal 34.0 - 46.0 % [facility] HemeAutoS S Hemoglobin (Bld) [Mass/Vol] 14.6 g/dL Normal 12.0 - 16.0 gm/dL [facility] HemeAutoSS MCH (RBC) [Entitic mass] 29.9 pg Normal 27.0 - 34.0 pg FT HemeAutoSS MCHC (RBC) [Mass/Vol] 32.2 g/dL Normal 31.4 - 36.0 gm/dL [facility] HemeAutoSS MCV (RBC) [Entitic vol] 92.7 fL Normal 80.0 - 100.0 fL [facility] HemeAutoSS Platelet mean volume (Bld) [Entitic vol] 7.8 fL Normal 6.4 - 10.8 fL [facility] HemeAut oSS Platelets (Bld) [#/Vol] 260.0 E9/L Normal 150.0 - 500.0 E9/L [facility] HemeAutoSS RBC (Bld) [#/Vol] 4.9 E12/L Normal 4.3 - 5.9 E12/L [facility] HemeAutoSS WBC corrected for nucl RBC Auto (Bld) [#/Vol] 9.2 E9/L Normal 4.0 - 11.0 E9/L [facility] HemeAutoSS XR SINUSES 3 VIEWS OR GREATE Dede 03-17-2022 XR SINUSES 3 VIEWS OR GREATER EXAMINATION: XR SINUSES 3 VIEWS OR GREATER HISTORY: Chronic rhinitis , sinus pressure, congestion COMPARISON: No relevant comparison available. FINDINGS: MAXILLARY: Suspect mild mucosal thickening bilaterally. ETHMOID: No mucosal thickening or fluid level. FRONTAL: No developed frontal sinuses versus completely opacified sinuses. SPHENOID: No mucosal thickening or fluid level. OTHER: Negative. IMPRESSION: 1. No fluid levels to suggest acute sinusitis. 2. Suspect mild chronic sinusitis. Electronically authenticated by: TERELL HINTON Date: 2022-03-17 07:21 Normal [facility] Glucose - FINGER STICKon Glucose [Mass/Vol] 190 mg/dL [employer] Other A1C HEMOGLOBINon 02-18-2022 HbA1c (Bld) [Mass fraction] 6.8 % Narrative [facility] [employer] Other Glucose - FINGER STICKon Glucose [Mass/Vol] 113 mg/dL [employer] Other HbA1c (Bld) [Mass fraction]o n 02-18-2022 A1C HEMOGLOBIN [facility] [employer] Other CIPRIANO by IFAon 01-19-2022 Antinuclear Antibodies, IFA Negative Normal [facility] Comment on above: Result Comment: Nega tive <1:80 Borderline 1:80 Positive >1:80 ICAP nomenclature: AC-0 For more information about Hep-2 cell patterns use ANApatterns.org, the official website for the International Consensus on Antinuclear Antibody (CIPRIANO) Patterns (ICAP). Performed By: #### A NAIFA ####[facility] [address] [place] [address]Dr. Kizzy Lebron ANTISTREPTOLYSIN O AB (ASO)o n 01-17-2022 Antistreptolysin O Ab 55.0 IU/mL Normal 0.0-200.0 [facility] Comment on above: Performed By: #### A SOAB #### [facility] [address] [place] [address] Dr. Kizzy Lebron RHEUMATOID FACTORon 01-18-20 22 RA Latex Turbid. <10.0 Normal <14.0 [facility] Comment on above: Performed By: #### R F ####[facility] [address] [place] [address]Dr. Kizzy Lebron CBC AUTO DIFFon 01-15-2022 BASO # 0.1 103/ul Normal 0.0-0.1 [facility] Comment on above: Performed By: #### C BC #### [facility] [address] [address] [address] Kizzy Lebron Basophils/100 WBC (Bld) 0.6 % Normal 0.2-2.0 [facility] Comment on above: Performed By: #### C BC #### [facility] [address] [address] [address] Kizzy Lebron EO # 0.1 103/ul Normal 0.0-0.7 [facility] Comment on above: Performed By: #### C BC #### [facility] [address] [place] [address] Dr. Kizzy Lebron Eosinophils/100 WBC (Bld) 1.3 % Normal 0.9-7.0 [facility] Comment on above: Performed By: #### C BC #### [facility] [address] [place] [address] Dr. Kizzy Lebron Erythrocyte distribution width (RBC) [Ratio] 17.0 % Critically high 11.0-15.0 [facility] Comment on above: Performed By: #### C BC #### [facility] [address] [place] [address] Dr. Kizzy Lebron Hematocrit (Bld) [Volume fraction] 41.7 % Normal 36.0-48.0 [facility] Comment on above: Performed By: #### C BC #### [facility] [address] [place] [address] Dr. Kizzy Lebron Hemoglobin (Bld) [Mass/Vol] 13.5 g/dL Normal 12.0-16.0 [facility] Comment on above: Performed By: #### C BC #### [facility] [address] [place] [address] Dr. Kizzy Lebron IG # 0.08 10e3/ul Critically high 0.00-0.03 [facility] Comment on above: Performed By: #### C BC #### [facility] [address] [place] [address] Dr. Kizzy Lebron IG % 0.9 % Critically high 0.0-0.5 The [facility] Comment on above: Performed By: #### C BC #### [facility] [address] [place] [address] Dr. Kizzy Lebron LYMPH # 1.7 103/ul Normal 1.2-3.8 [facility] Comment on above: Performed By: #### C BC #### [facility] [address] [place] [address] Dr. Kizzy Lebron Lymphocytes/100 WBC (Bld) 19.1 % Critically low 20.5-60.0 [facility] Comment on above: Performed By: #### C BC #### [facility] [address] [place] [address] Dr. Kizzy Lebron MANUAL DIFF REQ NO Normal [facility] Comment on above: Performed By: #### C BC #### [facility] [address] [place] [address] Dr. Kizzy Lebron MCH (RBC) [Entitic mass] 31.2 pg Normal 26.7-34.0 [facility] Comment on above: Performed By: #### C BC #### [facility] [address] [place] [address] Dr. Kizzy Lebron MCHC (RBC) [Mass/Vol] 32.4 g/dL Normal 29.9-35.2 [facility] Comment on above: Performed By: #### C BC #### [facility] [address] [place] [address] Dr. Kizzy Lebron MCV (RBC) [Entitic vol] 96.3 fL Normal 81.0-99.0 [facility] Comment on above: Performed By: #### C BC #### [facility] [address] [place] [address] Dr. Kizzy Lebron MONO # 0.6 103/ul Normal 0.3-0.8 [facility] Comment on above: Performed By: #### C BC #### [facility] [address] [place] [address] Dr. Kizzy Lebron Monocytes/100 WBC (Bld) 6.7 % Normal 1.7-12.0 [facility] Comment on above: Performed By: #### C BC #### [facility] [address] [place] [address] Dr. Kizzy Lebron NEUT # 6.2 103/ul Normal 1.4-6.5 [facility] Comment on above: Performed By: #### C BC #### [facility] [address] [place] [address] Dr. Kizzy Lebron Neutrophils/100 WBC (Bld) 71.4 % Normal 43.0-75.0 [facility] Comment on above: Performed By: #### C BC #### [facility] [address] [place] [address] Dr. Kizzy Lebron Platelet mean volume (Bld) [Entitic vol] 9.5 fL Normal 9.5-13.5 [facility] Comment on above: Performed By: #### C BC #### [facility] [address] [address] [address] Kizzy Lebron PLT 272 103/ul Normal 150-450 [facility] Comment on above: Performed By: #### C BC #### [facility] [address] [place] [address] Dr. Kizzy Lebron RBC 4.33 106/ul Normal 4.20-5.40 [facility] Comment on above: Performed By: #### C BC #### [facility] [address] [place] [address] Dr. Kizzy Lebron WBC 8.7 103/ul Normal 4.0-11.0 [facility] Comment on above: Performed By: #### C BC #### [facility] [address] [place] [address] Dr. Kizyz Lebron CRPon 01-15-2022 CRP 0.6 mg/dL Normal <=1.0 [facility] Comment on above: Performed By: #### C MP, T7, CRP, TSH, URIC ####[facility] [address] [place] [id number]. Kizzy Lebron FREE THYROXINE INDEX T7on FTI 2.85 Normal 1.30-4.50 [facility] Comment on above: Performed By: #### C MP, T7, CRP, TSH, URIC ####[facility] [address] [place] [address]Dr. Kizzy Lebron T3U 30.0 % Normal 30.0-39.0 [facility] Comment on above: Performed By: #### C MP, T7, CRP, TSH, URIC ####[facility] [address] [place] [address]Dr. Kizzy Lebron T4 [Mass/Vol] 9.50 ug/dL Normal 4.80-13.90 [facility] Comment on above: Performed By: #### C MP, T7, CRP, TSH, URIC ####[facility] [address] [place] [address]Dr. Kizzy Lebron PROF 14(COMP METB)on 022 Albumin [Mass/Vol] 4.0 g/dL Normal 3.4-5.0 [facility] Comment on above: Performed By: #### C MP, T7, CRP, TSH, URIC ####[facility] [address] [place] [address]Dr. Kizzy Lebron Albumin/Globulin [Mass ratio] 1.1 {ratio} Normal [facility] Comment on above: Performed By: #### C MP, T7, CRP, TSH, URIC ####[facility] [address] [place] [address]Dr. Kizzy Lebron ALP [Catalytic activity/Vol] 188 U/L Critically high 46-116 [facility] Comment on above: Performed By: #### C MP, T7, CRP, TSH, URIC ####[facility] [address] [place] [address]Dr. Kizzy Lebron ALT [Catalytic activity/Vol] 60 U/L Critically high 14-59 [facility] Comment on above: Performed By: #### C MP, T7, CRP, TSH, URIC ####[facility] [address] [place] [address]Dr. Kizzy Lebron Anion gap [Moles/Vol] 13.7 mmol/L Normal [facility] Comment on above: Performed By: #### C MP, T7, CRP, TSH, URIC ####[facility] [address] [place] [address]Dr. Kizzy Lebron AST [Catalytic activity/Vol] 27 U/L Normal 15-37 [facility] Comment on above: Performed By: #### C MP, T7, CRP, TSH, URIC ####[facility] [address] [place] [address]Dr. Kizzy Lebron Bilirubin [Mass/Vol] 0.3 mg/dL Normal 0.2-1.0 [facility] Comment on above: Performed By: #### C MP, T7, CRP, TSH, URIC ####[facility] [address] [place] [address]Dr. Kizzy Lebron Calcium [Mass/Vol] 9.3 mg/dL Normal 8.5-10.[address] [facility] Comment on above: Performed By: #### C MP, T7, CRP, TSH, URIC ####[facility] [address] [place] [address]Dr. Kizzy Lebron Chloride [Moles/Vol] 101 mmol/L Normal 98-107 [facility] Comment on above: Performed By: #### C MP, T7, CRP, TSH, URIC ####[facility] [address] [place], [place] [address]Dr. Kizzy Lebron CO2 [Moles/Vol] 27.4 mmol/L Normal 21.0-32.0 [facility] Comment on above: Performed By: #### C MP, T7, CRP, TSH, URIC ####[facility] [address] [place], [place] [address]Dr. Kizzy Lebron Creatinine [Mass/Vol] 0.65 mg/dL Normal 0.55-1.02 [facility] Comment on above: Performed By: #### C MP, T7, CRP, TSH, URIC ####[facility] [address] [place], [place] [address]Dr. Kizzy Lebron EGFR-AF MONEGASQUE >60 Normal >=60 [facility] Comment on above: Performed By: #### C MP, T7, CRP, TSH, URIC ####[facility] [address] [place], [place] [address]Dr. Kizzy Lebron EGFR-NON AF MONEGASQUE >60 Normal >=60 [facility] Comment on above: Performed By: #### C MP, T7, CRP, TSH, URIC ####[facility] [address] [place], [place] [address]Dr. Kizzy Lebron Globulin (S) [Mass/Vol] 3.5 g/dL Normal [facility] Comment on above: Performed By: #### C MP, T7, CRP, TSH, URIC ####[facility] [address] [place] [address]Dr. Kizzy Lebron Glucose [Mass/Vol] 162 mg/dL Critically high 74-106 T [facility] Comment on above: Performed By: #### C MP, T7, CRP, TSH, URIC ####[facility] [address] [place], [place] [address]Dr. Kizzy Lebron Potassium [Moles/Vol] 4.1 mmol/L Normal 3.5-5.1 [facility] Comment on above: Performed By: #### C MP, T7, CRP, TSH, URIC ####[facility] [address] [place], [place] [address]Dr. Kizzy Lebron Protein [Mass/Vol] 7.5 g/dL Normal 6.4-8.[address] [facility] Comment on above: Performed By: #### C MP, T7, CRP, TSH, URIC ####[facility] [address] [place], [place] [address]Dr. Kizzy Lebron Sodium [Moles/Vol] 138 mmol/L Normal 136-[address] [facility] Comment on above: Performed By: #### C MP, T7, CRP, TSH, URIC ####[facility] [address] [place], [place] [address]Dr. Kizzy Lebron Urea nitrogen [Mass/Vol] 11.0 mg/dL Normal 7.0-18.0 [facility] Comment on above: Performed By: #### C MP, T7, CRP, TSH, URIC ####[facility] [address] [place], [place] [address]Dr. Kizzy Lebron Urea nitrogen/Creatinine [Mass ratio] 16.9 mg/mg Normal [facility] Comment on above: Performed By: #### C MP, T7, CRP, TSH, URIC ####[facility] [address] [place], [place] [address]Dr. Kizzy Lebron TSHon 01-15-2022 TSH 0.466 uIU/mL Normal 0.358-3.740 [facility] Comment on above: Performed By: #### C MP, T7, CRP, TSH, URIC ####[facility] [address] [place], [place] [address]Ng. Kizzy Lebron URIC ACID SERUMon 01-15-2022 Urate [Mass/Vol] 3.6 mg/dL Normal 2.6-6.0 [facility] Comment on above: Performed By: #### C MP, T7, CRP, TSH, URIC ####[facility] [address] [place], [place] [address]Gk. Kizzy Bernardino Vital Signs Date Time Vital Sign Value Performing Clinician Facility 04-10-2024 07:16-0400 Body height 157.48 cm [facility] 04-10-2024 07:16-0400 Body mass index (BMI) [Ratio] 30.4 kg/m2 [facility] 04-10-2024 07:16-0400 Body weight 75.4 kg [facility] 04-10-2024 07:16-0400 Diastolic blood pressure 75 mm[Hg] [facility] 04-10-2024 07:16-0400 Heart rate 84 /min [facility] 04-10-2024 07:16-0400 Respiratory rate 18 /min [facility] 04-10-2024 07:16-0400 SaO2% (BldA) [Mass fraction] 94 % [facility] 04-10-2024 07:16-0400 Systolic blood pressure 122 mm[Hg] [facility] 03-08-2024 10:56-0400 Body height 157.48 cm [facility] 03-08-2024 10:56-0400 Body mass index (BMI) [Ratio] 30.8 kg/m2 [facility] 03-08-2024 10:56-0400 Body weight 76.43 kg [facility] 03-08-2024 10:56-0400 Diastolic blood pressure 91 mm[Hg] [facility] 03-08-2024 10:56-0400 Heart rate 87 /min [facility] 03-08-2024 10:56-0400 Respiratory rate 18 /min [facility] 03-08-2024 10:56-0400 SaO2% (BldA) [Mass fraction] 94 % [facility] 03-08-2024 10:56-0400 Systolic blood pressure 134 mm[Hg] [facility] 06-03-2022 14:33-0500 Blood Pressure Location Odalys Lozano [facility] 06-03-2022 14:33-0500 Body temperature 96.98 [degF] Odalys Lozano [facility] 06-03-2022 14:33-0500 Diastolic blood pressure 84 mm[Hg] Odalys Cruzmetz [facility] 06-03-2022 14:33-0500 Heart rate 92 /min Odalys Cruzmetz [facility] 06-03-2022 14:33-0500 Systolic blood pressure 128 mm[Hg] Odalys Cruzmetz [facility] 05-22-2022 08:50-0500 Diastolic blood pressure 95 mm[Hg] Pandey SALAM [facility] 05-22-2022 08:50-0500 Heart rate 77 /min Pandey SALAM [facility] 05-22-2022 08:50-0500 Respiratory rate 17 /min Pandey SALAM [facility] 05-22-2022 08:50-0500 SaO2% (BldA) [Mass fraction] 95 % Pandey SALAM [facility] 05-22-2022 08:50-0500 Systolic blood pressure 133 mm[Hg] Pandey SALAM [facility] 05-22-2022 08:35-0500 Diastolic blood pressure 89 mm[Hg] Pandey SALAM [facility] 05-22-2022 08:35-0500 Heart rate 80 /min Pandey SALAM [facility] 05-22-2022 08:35-0500 Respiratory rate 20 /min Pandey SALAM [facility] 05-22-2022 08:35-0500 SaO2% (BldA) [Mass fraction] 95 % Pandey SALAM [facility] 05-22-2022 08:35-0500 Systolic blood pressure 127 mm[Hg] Pandey SALAM [facility] 05-22-2022 08:30-0500 Diastolic blood pressure 87 mm[Hg] Pandey SALAM [facility] 05-22-2022 08:30-0500 Heart rate 85 /min Pandey SALAM [facility] 05-22-2022 08:30-0500 Respiratory rate 20 /min Pandey SALAM [facility] 05-22-2022 08:30-0500 SaO2% (BldA) [Mass fraction] 96 % Pandey SALAM [facility] 05-22-2022 08:30-0500 Systolic blood pressure 126 mm[Hg] Pandey SALAM [facility] 05-22-2022 08:24-0500 Body temperature 97.52 [degF] Pandey SALAM [facility] 05-22-2022 07:20-0500 Blood Pressure Location Pandey SALAM [facility] 05-22-2022 07:20-0500 Body temperature 97.88 [degF] Pandey SALAM [facility] 04-14-2022 12:03-0400 Blood Pressure Location Pandey SALAM [facility] 04-14-2022 12:03-0400 Diastolic blood pressure 64 mm[Hg] Pandey SALAM [facility] 04-14-2022 12:03-0400 Heart rate 88 /min Pandey SALAM [facility] 04-14-2022 12:03-0400 SaO2% (BldA) [Mass fraction] 96 % Pandey SALAM [facility] 04-14-2022 12:03-0400 Systolic blood pressure 131 mm[Hg] Pandey SALAM [facility] 03-11-2022 10:45-0400 Body height 157.48 cm Tondra Mapus Other [employer] Other 03-11-2022 10:45-0400 Body mass index (BMI) [Ratio] 29.81 kg/m2 Tondra Mapus Other [employer] Other 03-11-2022 10:45-0400 Body weight 73.94 kg Tondra Mapus Other [employer] Other 03-11-2022 10:45-0400 Diastolic blood pressure 79 mm[Hg] Tondra Mapus Other [employer] Other 03-11-2022 10:45-0400 Respiratory rate 16 /min Tondra Mapus Other [employer] Other 03-11-2022 10:45-0400 SaO2% (BldA) [Mass fraction] 97 % Tondra Mapus Other [employer] Other 03-11-2022 10:45-0400 Systolic blood pressure 115 mm[Hg] Tondra Mapus Other [employer] Other 02-18-2022 12:00-0400 Body height 157.48 cm Tondra Mapus Other [employer] Other 02-18-2022 12:00-0400 Body mass index (BMI) [Ratio] 30.36 kg/m2 Tondra Mapus Other [employer] Other 02-18-2022 12:00-0400 Body weight 75.3 kg Tondra Mapus Other [employer] Other 02-18-2022 12:00-0400 Diastolic blood pressure 79 mm[Hg] Tondra Mapus Other [employer] Other 02-18-2022 12:00-0400 Respiratory rate 16 /min Tondra Mapus Other [employer] Other 02-18-2022 12:00-0400 SaO2% (BldA) [Mass fraction] 98 % Tondra Mapus Other [employer] Other 02-18-2022 12:00-0400 Systolic blood pressure 112 mm[Hg] Tondra Mapus Other [employer] Other Encounters Encounter Date Encounter Type Care Provider Facility Start: 04-10-2024 End: 04-10-2024 [facility] Work Phone: Start: 04-10-2024 End: 04-10-2024 Patient encounter procedure [facility] Physician [facility] Work Phone: Start: 03-09-2024 End: 03-09-[address] [facility] Work Phone: Start: 03-09-2024 End: 03-09-2024 Patient encounter procedure [facility] Work Phone: Start: 03-08-2024 End: 03-08-[address] [facility] Work Phone: Start: 03-08-2024 End: 03-08-2024 Patient encounter procedure 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 Facility: Start: 09-02-2022 ambulatory [facility] Start: [address] KAITLYN DOWNING . Facili ty: Start: 06-16-2022 End: 06-17-2022 ambulatory Pandey SALAM Facility:[facility] Start: 06-16-2022 End: 06-16-2022 Patient encounter procedure Dannie LOWYESSI [facility] Start: 06-03-2022 End: 06-04-2022 ambulatory Odalys Lozano Facility:[facility] Start: 06-03-2022 End: 06-03-2022 Patient encounter procedure Odalys Lozano [facility] Start: 05-26-2022 End: 05-26-2022 ambulatory Tondra Mapus Other [employer] Other Start: 05-26-2022 Telephone encounter Tondra Mapus [facility] Start: 05-22-2022 End: 05-22-2022 Patient encounter procedure Dannie LOWAM [facility] Start: 04-15-2022 End: 04-15-2022 ambulatory Tondra Mapus Other [employer] Other Start: 04-15-2022 Telephone encounter Tondra Mapus [facility] Start: 04-14-2022 End: 04-14-2022 Patient encounter procedure Pandey SALAM [facility] Start: 04-09-2022 End: 04-09-2022 ambulatory Tondra Mapus Other [employer] Other Start: 04-09-2022 Telephone encounter Tondra Stuart Natar[facility] Start: 03-24-2022 End: 04-30-2022 Pre-admission assessment Shannan Morales [facility] Start: 03-16-2022 End: 03-17-2022 ambulatory SHANNAN MORALES Facility: Start: 03-11-2022 (DM) Diabetes Tondra Saidaus [facility] Start: 03-11-2022 End: 03-11-2022 ambulatory Tondra K Mapus Facility:[facility] Start: 03-10-2022 End: 03-10-2022 ambulatory Tondra Mapus Other [employer] Other Start: 03-10-2022 Telephone encounter Tondra Stuart Natarajan [facility] Start: 03-03-2022 End: 03-03-2022 ambulatory Tondra Mapus Other [employer] Other Start: 03-03-2022 Telephone encounter Tondra Stuart Natarajan [facility] Start: 02-18-2022 End: 02-18-2022 ambulatory Tondra Mapus Other [employer] Other Start: 02-18-2022 FQHC visit new patient Juandrmed Davidson [facility] Start: 01-15-2022 End: 01-16-[address] KAITLYN DOWNING . Facility: Procedures Date Procedure Procedure Detail Performing Clinician Start: 08-11-2023 AUDITORY FUNCTION TESTS Rosa Kevin [facility] Work Phone: Start: 05-22-2022 Esophagogastroduodenoscopy Dannie STARKS Comment on above: gastric biopsy, gastritis, duodenal biop sy r/o celiac disease Start: 09-10-2017 TVT with sling Dannie STARKS Abdominal hysterectomy Dannie STARKS Cholecystectomy Dannie STARKS Closed fracture of r ight wrist (disorder) aDnnie STARKS ft (qualifier value) Dannie TELLO History of arthropla sty of right knee Dannie STARKS Plan of Treatment Date Care Activity Detail Author Start: 01-11-2024 End: 01-11-2024 Patient encounter procedure 01/11/2024 11:00 AM EDT Office Visit [facility] [address] [place] [address] Misty Raya MD [address] [place] [address] [facility] Start: 08-25-2023 End: 08-25-2023 Patient encounter procedure 08/25/2023 9:10 AM EST Office Visit [facility] [address] [facility] [address] [place] [id number] Shannan Morales MD [address] [facility] [address] [place] [address] [facility] Start: 08-11-2023 End: 08-11-2023 Clinical Support 08/11/2023 9:30 AM EST Clinical Support [facility] [address] [facility] [address] [place] [id number] Rosa Kevin, [facility] [address] [place] [address] Arrived [facility] Comment on above: Arrived Start: 02-26-2023 Influenza vaccination Influenza Vacc ine (#1) [facility] Start: 2003 Screening for malign ant neoplasm of breast Mammogram [facility] Start: 1993 Screening for malign ant neoplasm of cervix [facility] Start: 1984 Screening for malign ant neoplasm of cervix Pap Smear [facility] Start: 1963 Screening for malign ant neoplasm of colon [facility] Patient Education [facility] Work Phone: Immunizations Immunization Date Immunization Notes Care Provider Jem henry 03-28-2022 influenza virus vaccine, unspecified formulation Pandey SALAM [facility] 05-29-2021 influenza virus vaccine, unspecified formulation Pandey SALAM [facility] 05-29-2021 SARS-CoV-2 (COVID-19 ) mRNA BNT-162b2 vax Pandey SALAM [facility] 09-28-2020 SARS-CoV-2 (COVID-19 ) mRNA BNT-162b2 vax Pandey SALAM [facility] 09-07-2020 SARS-CoV-2 (COVID-19 ) mRNA BNT-162b2 vax Pandey SALAM [facility] 05-16-2018 influenza virus vaccine, unspecified formulation Pandey SALAM [facility] 05-04-2018 influenza virus vaccine, unspecified formulation Pandey SALAM [facility] 01-31-2010 tetanus toxoid, reduced diphtheria toxoid, and acellular pertussis vaccine, adsorbed Pandey SALAM [facility] NEGATED: Highlighted row has not occurred!06-03-2022 influenza virus vaccine, unspecified formulation Odalys Lozano [facility] Payers Date Payer Category Payer Medicare [id number] 2022 Medicare [id number] 2022 Unknown [employer] [id number] 2022-Present [address] [place] [address] [id number] 2021 Self-pay 2021 Unknown [id number] 1965 Unknown [id number] 1963 Unknown [id number] 1963 Unknown [id number] 1963 Unknown [id number] 1963 Unknown [id number] 1963 Unknown [id number] 1963 Unknown [id number] 1963 Unknown [id number] 1963 Unknown [id number] 1963 Unknown [id number] 1963 Unknown [id number] 1963 Unknown [id number] 1959 Self-pay [id number] 1959 Unknown [id number] Unknown [id number] Social History Date Type Detail Facility Unknown if ever smoked [employer] Other Start: 06-09-2023 Sex Assigned At F [facility] Start: 04-14-2022 End: 06-03-2022 Tobacco smoking status Heavy tobacco smoker (finding) [facility] Tobacco smoking status Never Stephanie [facility] Start: 1965 Sex Assigned At Female F [facility] Start: 04-29-2023 Tobacco smoking stat [facility] Smokes tobacco daily [facility] History of tobacco use Cigarette Smoker [facility] Start: 04-29-2023 End: 06-09-2023 Cigarettes smoked current (pack per day) - Reported 1.5 [facility] Start: 04-29-2023 Tobacco use and exposure Smokeless tobacco non-user [facility] Start: 06-09-2023 Alcohol intake Ex-drinker (finding) [facility] Start: 05-02-2023 Alcohol Comment caffeine: yes, coffe e [facility] Start: 1965 Sex Assigned At Not on file [facility] Start: 08-17-2017 Tobacco smoking stat [facility] Smoker (finding) [facility] Medical Equipment Procedure Code Equipment Code Equipment Origin al Text Equipment Identifier Dates Test Strips as directed Pen Needle, Diab etic (Bd Ultra-Fine Susan Pen Needle) 32 gauge x 5/32 needle Start: 03-09-2024 Pen Needle, Diab etic (Bd Ultra-Fine Susan Pen Needle) 32 gauge x 5/32 needle Start: 03-09-2024 Functional Status Date Assessment Result Facility 06-03-2022 Functional Status N/A [facility] 05-22-2022 Functional Status N/A [facility] 04-14-2022 Functional Status N/A [facility] Clinical Notes 02-18-2022 to 08-11-2023 Rosa Kevin, [facility] - 08/11/2023 9:30 AM EST Note Date & Type Note Facility 08-11-2023 History of Presen t illness Narrative History: Pt is here for hearing test. She saw Dr. Morales in May and was diagnosed with left otitis media with effusion. Pt states she is still having difficulties with her sinuses and her ears. The ear still feels plugged and hurts periodically. She also developed sores on her tongue. History is positive for noise exposure. Otoscopic Exam: Ear canal clear and TM intact AU Pure Tone Audiometry Right Ear: Mild conductive hearing loss above 3K Hz Left Ear: Mild to moderate sensorineural hearing loss above 3K Hz Speech Audiometry Right SRT = 30 dB and word discrimination score at 55 dBHL = 100% Left SRT = 20 dB and word discrimination score at 55 dBHL = 96% Tympanometry Right Ear: Type A tympanogram Left Ear: Type A tympanogram documented in this encounter [facility] 05-22-2022 Hospital Discharg e instructions Patient Education 05/22/2022 08:35:59 Upper Endoscopy, Adult, Care After Upper Endoscopy, Adult, Care After This sheet gives you information about how to care for yourself after your procedure. Your health care provider may also give you more specific instructions. If you have problems or questions, contact your health care provider. What can I expect after the procedure? After the procedure, it is common to have: A sore throat. Mild stomach pain or discomfort. Bloating. Nausea. Follow these instructions at home: Follow instructions from your health care provider about what to eat or drink after your procedure. Return to your normal activities as told by your health care provider. Ask your health care provider what activities are safe for you. Take jmgq-sbl-fxadxex and prescription medicines only as told by your health care provider. Do not drive for 24 hours if you were given a sedative during your procedure. Keep all follow-up visits as told by your health care provider. This is important. Contact a health care provider if you have: A sore throat that lasts longer than one day. Trouble swallowing. Get help right away if: You vomit blood or your vomit looks like coffee grounds. You have: ?A fever. ?Bloody, black, or tarry stools. ?A severe sore throat or you cannot swallow. ?Difficulty breathing. ?Severe pain in your chest or abdomen. Summary After the procedure, it is common to have a sore throat, mild stomach discomfort, bloating, and nausea. Do not drive for 24 hours if you were given a sedative during the procedure. Follow instructions from your health care provider about what to eat or drink after your procedure. Return to your normal activities as told by your health care provider. This information is not intended to replace advice given to you by your health care provider. Make sure you discuss any questions you have with your health care provider. Document Released: 12/13/2012 Document Revised: 12/06/2018 Document Reviewed: 11/14/2018 [employer] Patient Education 2020 [employer]. 05/22/2022 08:35:59 Gastritis, Adult Gastritis, Adult Gastritis is inflammation of the stomach. There are two kinds of gastritis: Acute gastritis. This kind develops suddenly. Chronic gastritis. This kind is much more common and lasts for a long time. Gastritis happens when the lining of the stomach becomes weak or gets damaged. Without treatment, gastritis can lead to stomach bleeding and ulcers. What are the causes? This condition may be caused by: An infection. Drinking too much alcohol. Certain medicines. These include steroids, antibiotics, and some xpvw-vsl-rfpnafj medicines, such as aspirin or ibuprofen. Having too much acid in the stomach. A disease of the intestines or stomach. Stress. An allergic reaction. Crohn's disease. Some cancer treatments (radiation). Sometimes the cause of this condition is not known. What are the signs or symptoms? Symptoms of this condition include: Pain or a burning sensation in the upper abdomen. Nausea. Vomiting. An uncomfortable feeling of fullness after eating. Weight loss. Bad breath. Blood in your vomit or stools. In some cases, there are no symptoms. How is this diagnosed? This condition may be diagnosed with: Your medical history and a description of your symptoms. A physical exam. Tests. These can include: ?Blood tests. ?Stool tests. ?A test in which a thin, flexible instrument with a light and a camera is passed down the esophagus and into the stomach (upper endoscopy). ?A test in which a sample of tissue is taken for testing (biopsy). How is this treated? This condition may be treated with medicines. The medicines that are used vary depending on the cause of the gastritis: If the condition is caused by a bacterial infection, you may be given antibiotic medicines. If the condition is caused by too much acid in the stomach, you may be given medicines called H2 blockers, proton pump inhibitors, or antacids. Treatment may also involve stopping the use of certain medicines, such as aspirin, ibuprofen, or other NSAIDs. Follow these instructions at home: Medicines Take plny-tdc-hqynkke and prescription medicines only as told by your health care provider. If you were prescribed an antibiotic medicine, take it as told by your health care provider. Do not stop taking the antibiotic even if you start to feel better. Eating and drinking Eat small, frequent meals instead of large meals. Avoid foods and drinks that make your symptoms worse. Drink enough fluid to keep your urine pale yellow. Alcohol use Do not drink alcohol if: ?Your health care provider tells you not to drink. ?You are , may be , or are planning to become . If you drink alcohol: ?Limit your use to: ?0 1 drink a day for women. ?0 2 drinks a day for men. ?Be aware of how much alcohol is in your drink. In the [place] one drink equals one 12 oz bottle of beer (355 mL), one 5 oz glass of wine (148 mL), or one 1 oz glass of hard liquor (44 mL). General instructions Talk with your health care provider about ways to manage stress, such as getting regular exercise or practicing deep breathing, meditation, or yoga. Do not use any products that contain nicotine or tobacco, such as cigarettes and e-cigarettes. If you need help quitting, ask your health care provider. Keep all follow-up visits as told by your health care provider. This is important. Contact a health care provider if: Your symptoms get worse. Your symptoms return after treatment. Get help right away if: You vomit blood or material that looks like coffee grounds. You have black or dark red stools. You are unable to keep fluids down. Your abdominal pain gets worse. You have a fever. You do not feel better after one week. Summary Gastritis is inflammation of the lining of the stomach that can occur suddenly (acute) or develop slowly over time (chronic). This condition is diagnosed with a medical history, a physical exam, or tests. This condition may be treated with medicines to treat infection or medicines to reduce the amount of acid in your stomach. Follow your health care provider's instructions about taking medicines, making changes to your diet, and knowing when to call for help. This information is not intended to replace advice given to you by your health care provider. Make sure you discuss any questions you have with your health care provider. Document Released: 06/08/2002 Document Revised: 11/01/2018 Document Reviewed: 11/01/2018 [employer] Patient Education 2020 [employer]. 05/22/2022 08:35:59 Gluten-Free Diet for Celiac Disease, Adult Gluten-Free Diet for Celiac Disease, Adult The gluten-free diet includes all foods that do not contain gluten. Gluten is a protein that is found in wheat, rye, barley, and some other grains. Following the gluten-free diet is the only treatment for people with celiac disease. It helps to prevent damage to the intestines and improves or eliminates the symptoms of celiac disease. Following the gluten-free diet requires some planning. It can be challenging at first, but it gets easier with time and practice. There are more gluten-free options available today than ever before. If you need help finding gluten-free foods or if you have questions, talk with your diet and news content specialist (registered dietitian) or your health care provider. What do I need to know about a gluten-free diet? All fruits, vegetables, and meats are safe to eat and do not contain gluten. When grocery shopping, start by shopping in the produce, meat, and dairy sections. These sections are more likely to contain gluten-free foods. Then move to the aisles that contain packaged foods if you need to. Read all food labels. Gluten is often added to foods. Always check the ingredient list and look for warnings, such as may contain gluten. Talk with your dietitian or health care provider before taking a gluten-free multivitamin or mineral supplement. Be aware of gluten-free foods having contact with foods that contain gluten (cross-contamination). This can happen at home and with any processed foods. ?Talk with your health care provider or dietitian about how to reduce the risk of cross-contamination in your home. ?If you have questions about how a food is processed, ask the dry kiln loader. What frazier words help to identify gluten? Foods that list any of these frazier words on the label usually contain gluten: Wheat, flour, enriched flour, bromated flour, white flour, durum flour, georgiana flour, phosphated flour, self-rising flour, semolina, farina, barley (malt), rye, and oats. Starch, dextrin, modified food starch, or cereal. Thickening, fillers, or emulsifiers. Malt flavoring, malt extract, or malt syrup. Hydrolyzed vegetable protein. In the [place] packaged foods that are gluten-free are required to be labeled GF. These foods should be easy to identify and are safe to eat. In the [place] food companies are also required to list common food allergens, including wheat, on their labels. Recommended foods Grains Amaranth, meneses flours, 100% buckwheat flour, corn, millet, nut flours or nut meals, GF oats, quinoa, rice, sorghum, teff, rice wafers, pure cornmeal tortillas, popcorn, and hot cereals made from cornmeal. Deer, rice, wild rice. Some rice noodles or meneses noodles. Arrowroot starch, corn bran, corn flour, corn germ, cornmeal, corn starch, potato flour, potato starch flour, and rice bran. Plain, brown, and sweet rice flours. Rice indonesian, soy flour, and tapioca starch. Vegetables All plain fresh, frozen, and canned vegetables. Fruits All plain fresh, frozen, canned, and dried fruits, and 100% fruit juices. Meats and other protein foods All fresh beef, pork, poultry, fish, seafood, and eggs. Fish canned in water, oil, brine, or vegetable broth. Plain nuts and seeds, peanut butter. Some lunch meat and some frankfurters. Dried beans, dried peas, and lentils. Dairy Fresh plain, dry, evaporated, or condensed milk. Cream, butter, sour cream, whipping cream, and most yogurts. Unprocessed cheese, most processed cheeses, some cottage cheese, some cream cheeses. Beverages Coffee, tea, most herbal teas. Carbonated beverages and some root beers. Wine, sake, and distilled spirits, such as gin, vodka, and whiskey. Most hard ciders. Fats and oils Butter, margarine, vegetable oil, hydrogenated butter, olive oil, shortening, lard, cream, and some mayonnaise. Some commercial salad dressings. Olives. Sweets and desserts Sugar, honey, some syrups, molasses, jelly, and jam. Plain hard candy, marshmallows, and gumdrops. Pure cocoa powder. Plain chocolate. Custard and some pudding mixes. Gelatin desserts, sorbets, frozen ice pops, and sherbet. Cake, cookies, and other desserts prepared with allowed flours. Some commercial ice creams. Cornstarch, tapioca, and rice puddings. Seasoning and other foods Some canned or frozen soups. Monosodium glutamate (MSG). Cider, rice, and wine vinegar. Baking soda and baking powder. Cream of tartar. Baking and nutritional yeast. Certain soy sauces made without wheat (ask your dietitian about specific brands that are allowed). Nuts, coconut, and chocolate. Salt, pepper, herbs, spices, flavoring extracts, imitation or artificial flavorings, natural flavorings, and food colorings. Some medicines and supplements. Some lip glosses and other cosmetics. Rice syrups. The items listed may not be a complete list. Talk with your dietitian about what dietary choices are best for you. Foods to avoid Grains Barley, bran, bulgur, couscous, cracked wheat, Mitchell, farro, georgiana, malt, matzo, semolina, wheat germ, and all wheat and rye cereals including spelt and kamut. Cereals containing malt as a flavoring, such as rice cereal. Noodles, spaghetti, macaroni, most packaged rice mixes, and all mixes containing wheat, rye, barley, or triticale. Vegetables Most creamed vegetables and most vegetables canned in sauces. Some commercially prepared vegetables and salads. Fruits Thickened or prepared fruits and some pie fillings. Some fruit snacks and fruit roll-ups. Meats and other protein foods Any meat or meat alternative containing wheat, rye, barley, or gluten stabilizers. These are often marinated or packaged meats and lunch meats. Bread-containing products, such as Macedonian steak, croquettes, meatballs, and meatloaf. Most tuna canned in vegetable broth and turkey with hydrolyzed vegetable protein (HVP) injected as part of the basting. Seitan. Imitation fish. Eggs in sauces made from ingredients to avoid. Dairy Commercial chocolate milk drinks and malted milk. Some non-dairy creamers. Any cheese product containing ingredients to avoid. Beverages Certain cereal beverages. Beer, nighat, malted milk, and some root beers. Some hard ciders. Some instant flavored coffees. Some herbal teas made with barley or with barley malt added. Fats and oils Some commercial salad dressings. Sour cream containing modified food starch. Sweets and desserts Some toffees. Chocolate-coated nuts (may be rolled in wheat flour) and some commercial candies and candy bars. Most cakes, cookies, donuts, pastries, and other baked goods. Some commercial ice cream. Ice cream cones. Commercially prepared mixes for cakes, cookies, and other desserts. Bread pudding and other puddings thickened with flour. Products containing brown rice syrup made with barley malt enzyme. Desserts and sweets made with malt flavoring. Seasoning and other foods Some soriano powders, some dry seasoning mixes, some gravy extracts, some meat sauces, some ketchups, some prepared mustards, and horseradish. Certain soy sauces. Malt vinegar. Bouillon and bouillon cubes that contain HVP. Some chip dips, and some chewing gum. Yeast extract. Tovar s yeast. Caramel color. Some medicines and supplements. Some lip glosses and other cosmetics. The items listed may not be a complete list. Talk with your dietitian about what dietary choices are best for you. Summary Gluten is a protein that is found in wheat, rye, barley, and some other grains. The gluten-free diet includes all foods that do not contain gluten. If you need help finding gluten-free foods or if you have questions, talk with your diet and news content specialist (registered dietitian) or your health care provider. Read all food labels. Gluten is often added to foods. Always check the ingredient list and look for warnings, such as may contain gluten. This information is not intended to replace advice given to you by your health care provider. Make sure you discuss any questions you have with your health care provider. Document Released: 06/14/2006 Document Revised: 05/27/2018 Document Reviewed: 03/29/2017 Elsevier Patient Education 2020 USB Promos. 05/22/2022 08:35:59 Celiac Disease Celiac Disease Celiac disease is an allergy to the protein called gluten. When a person with celiac disease eats a food that has gluten in it, his or her natural defense system (immune system) attacks the cells that line the small intestine. Over time, this reaction damages the small intestine and makes the small intestine unable to absorb nutrients from food. Gluten is found in wheat, rye, and barley and in foods like pasta, pizza, and cereal. Celiac disease is also known as celiac sprue, nontropical sprue, and gluten-sensitive enteropathy. What are the causes? This condition is caused by a gene that is passed down through families (inherited). What increases the risk? You are more likely to develop this condition if you: Have a family member with the disease. Have an autoimmune condition, such as type 1 diabetes or a thyroid disorder. Are female. What are the signs or symptoms? Symptoms of this condition include: Recurring bloating and pain in the abdomen. Gas. Long-term (chronic) diarrhea. Pale, bad-smelling, greasy, or oily stool. Weight loss. Missed menstrual periods. Weakening bones (osteoporosis). Fatigue and weakness. Tingling or other signs of nerve damage. Depression. Poor appetite. Rash. In some cases, there are no symptoms of this condition. How is this diagnosed? This condition is diagnosed with a physical exam and tests. Tests may include: Blood tests to check for nutritional deficiencies. Blood tests to look for evidence that the body is attacking cells in the small intestine. A test in which a sample of tissue is taken from the small intestine and examined under a microscope (biopsy). X-rays of the intestine. Stool tests. Tests to check for nutrient absorption from the intestine. How is this treated? There is no cure for this condition, but it may be managed with a gluten-free diet. Treatment may also involve avoiding dairy foods, such as milk and cheese, because they are hard to digest. Most people who follow a gluten-free diet feel better and stop having symptoms. The intestine usually heals within 3 months to 2 years. In a small percentage of people, this condition does not improve on the gluten-free diet. If your condition does not improve, more tests will be done. You will also need to work with a specialist in celiac disease to find the best treatment for you. Follow these instructions at home: Follow instructions from your health care provider about diet. Monitor your body's response to the gluten-free diet. Write down any changes in your symptoms and changes in how you feel. If you decide to eat outside of the home, prepare your meal ahead of time, or make sure that the place where you are going has gluten-free options. Keep all follow-up visits as told by your health care provider. This is important. Suggest to family members that they get screened for early signs of the disease. Contact a health care provider if: You continue to have symptoms, even when you are eating a gluten-free diet. You have trouble sticking to the gluten-free diet. You develop an itchy rash with groups of tiny blisters. You develop severe weakness. You develop balance problems. You develop new symptoms. Summary Celiac disease is an allergy to the protein called gluten. Over time, this reaction damages the small intestine and makes the small intestine unable to absorb nutrients from food. There is no cure for this condition, but it may be managed with a gluten-free diet and by avoiding dairy foods. Follow instructions from your health care provider about diet. Write down any changes in your symptoms and changes in how you feel. Contact a health care provider if you continue to have symptoms, even when you are eating a gluten-free diet, or you have new symptoms. Keep all follow-up visits as told by your health care provider. This is important. This information is not intended to replace advice given to you by your health care provider. Make sure you discuss any questions you have with your health care provider. Document Released: 06/14/2006 Document Revised: 11/02/2018 Document Reviewed: 11/02/2018 [employer] Patient Education 2020 USB Promos. Follow Up Care 04/14/2022 12:39:34 With:Dannie STARKS Address: [address] [place] [address] Business (1) When: Unknown [facility] 04-15-2022 Evaluation note Encounter Date Diagnosis Assessment Notes Mar, Type 2 diabetes mellitus with hyperglycemia , without long-term current use of insulin (ICD-10 - E11.65) [employer] Other 09-14-2022 Evaluation note* Encounter Date Diagnosis Assessment Notes Treatment Notes Treatment Clinical Notes 14 Feb, 2022 Type 2 diabetes mellitus with hyperglycemia, without long-term current use of insulin (ICD-10 - E11.65) Managing type 2 diabetes material was published 1. Controlled, a Type 2 diabetes with A1c of 6.8% 02/18/22 2. Blood glucose levels according to raivn 2 cgm 02/19/22-03/04/22: Avg glucose 103. >250-0%, >180-0%, 70-180-98%, <70-2%, <54-0%. CV 19.3%. Reviewed cgm download with pt. Pt experiencing g/i s/e after second dose of ozempic 0.25mg- discussed with pt option of stopping ozempic and going back to januvia 100mg once daily. She is happy with glucose control and weight loss after being on ozempic; however, concern with g/i s/e. She has apt scheduled with gastroenterology 06/18. Discussed with pt option of stopping ozempic for 1 week and restarting at 9 clicks back from 0.25mg once weekly to see if more tolerable. Reviewed importance of eating nutrient dense foods, avoid fatty foods, and meal skipping, and increase water intake to 8 8oz glasses of water/day. Pt verbalizes understanding. 3. Patient is alert, oriented and receptive to making changes or counseling. Notes: Seen for an assessment of current glucose pattern, changes in treatment plan, counseling and coordination of care related to diabetes, risks, and benefits of treatment, medications, side effects. Given handouts to reinforce concepts reviewed during counseling, see scanned notes. TOPICS REVIEWED: 1. Time was spent reviewing: a. Basic concepts of diabetes, progressive beta cell , concepts of basal/bolus/correctiv e insulin requirements. b. Nutrition: Concepts of healthy diet, encouraged to decrease saturated fat in diet and increase non-starchy vegetables and fruits in diet. BMI: Pt. needs to select one small change to decrease caloric intake or increase physical activity to help decrease weight. c. Correct treatment of hypoglycemia, carry a glucose source at all times on your person, in vehicles, and at bedside. Can use glucose tablets/4, four ounces of pop or juice equal to 15 G of carbohydrate. Blood glucose should be 100 mg/dl or higher when driving. d. ADA glucose goals for age and medical complexity reviewed e. Patient questions addressed 2. Activity/exercise: Encouraged to start any form of physical activity. Start low level and increase slowly to a minimal goal of 150 minutes/week. Limit activity to what is allowed by other issues such as cardiac, pulmonary or orthopedic restrictions. 3. Standards of care: Reminded to have an annual dilated eye exam, A1C every 3 months, urine testing for microalbumin once/year, check feet daily and report any cuts or sores that do not appear to be healing. 4. Meter: Plan to check blood glucose: Please check blood glucose levels 4 times/day. Back to back meals reveal effectiveness of bolus dosing. 5. [facility]. Contact office if any issues or concerns with patterns of hypoglycemia, hyperglycemia, or diabetes medication issues. 6. Prescriptions: Sample ozempic 0.5mg x1 pen given today. Feb, Hyperlipidemia, unspecified hyperlipidemia type (ICD-10 - E78.5) Managing your cholesterol material was published ldl 103 on statin Feb, Hypertension, unspecified type (ICD-10 - I10) Managing high blood pressure material was published Feb, Dietary counseling and surveillance (ICD-10 - Z71.3) Healthy eating material was published Feb, Hypoglycemia associated with type 2 diabetes mellitus (ICD-10 - E11.649) Diabetes and foot care material was published Feb, BMI 29.0-29.9,adult (ICD-10 - Z68.29) Setting weight-loss goals material was published 3 pound weight loss from last visit, continue with weight loss efforts [employer] Other 08-24-2022 Evaluation note* Encounter Date Diagnosis Assessment Notes Treatment Notes Treatment Clinical Notes Jan, Type 2 diabetes mellitus with hyperglycemia, without long-term current use of insulin (ICD-10 - E11.65) Managing type 2 diabetes material was published 1. Controlled, a Type 2 diabetes with A1c of 6.8% 2. Blood glucose levels pt experiencing incidence of hypoglycemia, she had stopped januvia. Recommend reducing risk of hypoglycemia and stopping glimeperide and switching to long acting glp1. Reviewed common s/e. No hx pancreatitis/men/m tc. Pt agreeable to starting ozempic- she was given sample 0.5mg pen and administered first dose of 0.25mg to right abdomen, tolerated well. Reviewed with pt dosing 0.25mg once weekly x4 weeks then increase to 0.5mg once weekly. She is agreeable to wearing sample ravin 2. Pt added ravin 2 sruthi to her phone. Reviewed with pt how to use sruthi/apply cgm. Applied ravin 2 cgm to back of left arm and started sensor. 3. Patient is alert, oriented and receptive to making changes or counseling. Notes: Seen for 60 minutes for an assessment of current glucose pattern, changes in treatment plan, counseling and coordination of care related to diabetes, risks, and benefits of treatment, medications, side effects. Given handouts to reinforce concepts reviewed during counseling, see scanned notes. TOPICS REVIEWED: 1. Time was spent reviewing: a. Basic concepts of diabetes, progressive beta cell , concepts of basal/bolus/correc tive insulin requirements. b. Nutrition: Concepts of healthy diet, encouraged to decrease saturated fat in diet and increase non-starchy vegetables and fruits in diet. BMI: Pt. needs to select one small change to decrease caloric intake or increase physical activity to help decrease weight. c. Correct treatment of hypoglycemia, carry a glucose source at all times on your person, in vehicles, and at bedside. Can use glucose tablets/4, four ounces of pop or juice equal to 15 G of carbohydrate. Blood glucose should be 100 mg/dl or higher when driving. d. ADA glucose goals for age and medical complexity reviewed e. Patient questions addressed 2. Activity/exercise: Encouraged to start any form of physical activity. Start low level and increase slowly to a minimal goal of 150 minutes/week. Limit activity to what is allowed by other issues such as cardiac, pulmonary or orthopedic restrictions. 3. Standards of care: Reminded to have an annual dilated eye exam, A1C every 3 months, urine testing for microalbumin once/year, check feet daily and report any cuts or sores that do not appear to be healing. 4. Meter: Plan to check blood glucose: Please check blood glucose levels 4 times/day. Back to back meals reveal effectiveness of bolus dosing. 5. [facility]. Contact office if any issues or concerns with patterns of hypoglycemia, hyperglycemia, or diabetes medication issues. 6. Prescriptions: Uses [facility] or [facility]. Sample ravin 2 cgm and ozempic 0.5mg pen given today. Sent rx for ravin 2 to [facility]. Pt is to notify office if tolerating ozempic after week 5 so prescription may be [facility]. Jan, Hyperlipidemia, unspecified hyperlipidemia type (ICD-10 - E78.5) Managing your cholesterol material was published ldl 103 on statin Jan, Hypertension, unspecified type (ICD-10 - I10) Managing high blood pressure material was published Jan, Dietary counseling and surveillance (ICD-10 - Z71.3) Healthy eating material was published Jan, BMI 30.0-30.9,adult (ICD-10 - Z68.30) Setting weight-loss goals material was published Jan, Hypoglycemia associated with type 2 diabetes mellitus (ICD-10 - E11.649) Diabetes and foot care material was published Pt would greatly benefit from alf personal use of CGM device such as a Freestyle Ravin 2 with ability for high/low alarm feature. A CGM would improve ease of access to glucose results and reduce risk of hypoglcyemia/hyper glycemia. [employer] Other chief complaint+Reason for visit Narrative* Chief Complaint no meter Reason for Visit Dietary counseling a nd surveillance Hyperlipidemia Type [address] diabetes [address] [facility] Work Phone: Chirc complaint+Reason for visit Narrative* Chief Complaint no meter Reason for Visit BMI 30.0-30.9,adult Dietary counseling and surveillance Hyperlipidemia Type 2 diabetes mellitus Type [address] diabetes [address] [facility] Work Phone: Evaluation + Plan note Future Appointments Appointment Date:04/24/2022 11:00:00 AM Scheduled Provider: Location:.[facility] Appointment Type:CT Sinus/Orbits/Maxillofacial (FT) Appointment Date:05/22/2022 08:15:00 AM Scheduled Provider: Location:[facility] Appointment Type:Surgery FT Future Scheduled Tests Radiology* CT Maxillofacial w/o Contrast 04/24/22 [facility] Evaluation + Plan note Future Appointments Appointment Date:05/22/2022 08:15:00 AM Scheduled Provider: Location[facility] Radiology* MRI Cholangiogram Pancreatography (m[facility]ments Appointment Date:09/02/2022 09:00:00 AM Scheduled Provider:Dannie STAKRS MD Location:[facility] Appointment Type:[facility] Follow Up Future Scheduled Tests Radiology* MRI Cholangiogram Pancreatography (mrcp) 06/05/22 [facility] Evaluation + Plan note Future Appointments Appointment Date:09/02/2022 09:00:00 AM Scheduled Provider:Dannie STARKS MD Location:[facility] Digestive [facility] App[facility]ment Type:[facility] InformationNort [employer] Other evaluation noteNo assessment information available [facility] Work Phone: evaluation note* Diagnosis OME (otitis media with effusion), left- Primary Conductive hearing loss of right ear with restricted hearing of left ear documented in this encounter [facility] Diagnosis Onset Date Resolution Status Dietary counseling and surveillance acute Hyperlipidemia acute Type 2 diabetes mellitus acu te [facility] Work Phone: Evaluation note* Diagnosis Onset Date Resolution Status BMI 30.0-30.9,adult acute Dietary counseling and surveillance acute Hyperlipidemia acute Type 2 diabetes mellitus acu te Type 2 diabetes mellitus acu te [facility] Work Phone: Evaluation note* Diagnosis Onset Date Resolution Status BMI 30.0-30.9,adult acute Dietary counseling and surveillance acute Hyperlipidemia acute Type 2 diabetes mellitus acu te Type 2 diabetes mellitus acu te BMI 30.0-30.9,adult acute Dietary counseling and surveillance acute Hyperlipidemia acute Type 2 diabetes mellitus acu te Hypoglycemia noneactive [facility] Work Phone: History general Narrative - Reported* Type Description Date Medical History HYPOTHYROIDISM Medical History prediabetes Medical History chest pain Medical History internal hemorrhoids Medical History GI bleed Medical History pelvic congestion syndrome Medical History meniscus tear Medical History colon polyps Surgical History total hystrectomy Surgical History tonsils and and adnoids Surgical History bitlater foot surgery, multiple (7) Surgical History gallbladder Surgical History RT wrist surgery Surgical History ORIF TARSAL METATARSAL Hospitalization History SEE ABOVE SURGERY [facility] [employer] Other Hospital course Narrative No data available for this section [facility] Hospital Discharge instructions No data available for this section [facility] Progress note No data available for this section [facility] Reason for visit NarrativeSelf Referral, New patient Type 2 NIDDM 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, 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, [facility] [employer] Other Summary Purpose Family History Relationship Condition Age at Onset Recorded Date/T christian brother Diabetes mellitus Unknown father Chronic obstructive pulmonary disease Unk nown family member Unknown grandparent Diabetes mellitus Unknown Unknown grandparent Unknown mother Heart disease Unknown Diabetes mellitus Unknown Hypertension Unknown Advance Directives Advance Directive Response Recorded Date/ Time Advance Directives No February 14, 2019 2:17pm Chief Complaint and Reason for Visit Chief Complaint no meter 1 month f/u / no meter Reason for Visit BMI 30.0-30.9,adult Dietary counseling and surveillance Hyperlipidemia Type 2 diabetes mellitus Type 2 diabetes mellitus BMI 30.0-30.9,adult Dietary counseling and surveillance Hyperlipidemia Type 2 diabetes mellitus Hypoglycemia Additional Source Comments REASON FOR VISIT (unrecogniz ed section and content) TKM [facility] Ozempic side effectsOzempic side effects, Type 2 NIDDM 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, 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, BC-ADMTKM Blood sugar logsTKM Side effectsTKM Cancelled appt INFORMATION SOURCE (unrecogn ized section and content) DATE CREATED AUTHOR 03/25/2022 [facility] DATE CREATED AUTHOR AUTHOR'S ORGANIZ ATION 09/20/2022 [facility] DATE CREATED AUTHOR AUTHOR'S ORGANIZ ATION 06/01/2023 [facility] DATE CREATED AUTHOR AUTHOR'S ORGANIZ ATION 01/15/[address] [facility] EPIC Patient Care team informatio n (unrecognized section and content) Tack [employer]der Relationship Specialty Start Date End Date Kaitlyn Downing MD [address] [place] [address] PCP - General Family Medicine 05/03/23 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 Relationship Specialty Start Date End Date Kaitlyn Downing MD [address] [place] [address] PCP - General [facility] 05/03/23 Team Status: Active Member Role Status Dates Kaitlyn Downing MD Primary Care Provider Active Team Status: Inactive Member Role Status Dates Kaitlyn Downing MD Primary Care Provider Active Start: March 08, 2024 End: March 08, 2024 Dewey Davidson APRN Attending Provider Active Start: March 08, 2024 End: March 08, 2024 Team Status: Inactive Member Role Status Dates Kaitlyn Downing MD Primary Care Provider Active Start: March 09, 2024 End: March 09, 2024 Sophy Christianson RN Attending Provider Active Start: March 09, 2024 End: March 09, 2024 Dewey Davidson APRN Active Start: March 09, 2024 End: March 09, 2024 Team Status: Inactive Member Role Status Dates Kaitlyn Downing MD Primary Care Provider Active Start: April 10, 2024 End: April 10, 2024 Dewey Davidson APRN Attending Provider Active Start: April 10, 2024 End: April 10, 2024 Goals (unrecognized section and content) Goals may be documented in a n alternate section FOR RECORDS PERTAINING TO PATIENTS WHO ARE OR HAVE BEEN ENROLLED IN A CHEMICAL DEPENDENCY/SUBSTANCEABUSE PROGRAM, SOME INFORMATION MAY BE OMITTED. This clinical summary was aggregated from multiple sources. Caution should be exercised in using it in the provision of clinical care. This summary normalizes information from multiple sources, and as a consequence, information in this document may materially change the coding, format and clinical context of patient data. In addition, data may be omitted in some cases. CLINICAL DECISIONS SHOULD BE BASED ON THE PRIMARY CLINICAL RECORDS. [facility] provides no warranty or guarantee of the accuracy or completeness of information in this document.
== END 2024-05-10 09:24 | disposition home or self-care (01) ==
LOC: CT 09:23
PROVIDERS: PCP Family Medicine; Visit Provider Family Medicine
DX: F17.210 Nicotine dependence, cigarettes, uncomplicated (principal)
CPT/HCPCS: 71271

== ENCOUNTER 2024-09-07 11:55 | Outpatient (OUT) | payer OTHER, SELFPAY ==
--- OUTSIDE RECORDS SUMMARY | 2024-09-07 11:58 | XMS_ITS | CCD ---
Author Organization [facility] Care Team Providers Care Telecom Field Technician Name Role Phone Dewey Davidson Unavailable Dewey Davidson Attending Unavailable Dewey Davidson Admitting Unavailable Kaitlyn Downing Primary Care Unavailable Kaitlyn Downing Primary Care Physician RUFINO ., DR SAHNI Admitting Unavailable HOY ., DR SAHNI Attending Unavailable HOY ., DR SAHNI Primary Care Unavailable HOY ., DR SAHNI Consulting Unavailable HOY ., DR SAHNI Admitting Unavailable HOY ., DR SAHNI Attending Unavailable HOY ., DR SAHNI Primary Care Unavailable HOY ., DR SAHNI Consulting Unavailable DI MORALESARY Admitting Unavailable SHANNAN MORALES Attending Unavailable RANJITY ., DR SAHNI Primary Care Unavailable YENMISSHANNAN Consulting Unavailable ZIEBER, DR TERELL Gambino Consulting Unavailable HOY ., DR SAHNI Admitting Unavailable HOY ., DR SAHNI Attending Unavailable HOY ., DR SAHNI Primary Care Unavailable Kaitlyn Downing MD Primary Care Provider ROSA KEVIN Attending Unavailable TIMMIS, SHANNAN H Attending Unavailable TIMMISDISHANNAN H Attending Unavailable MISTY RAYA A Attending Unavailable Morodolfo Mohamad ARomana Referring Unavailable Mouchli, Mohamad A. Admitting Unavailable Mouchli Mohamad A. Attending Unavailable Mouchli, Mohamad A. Attending Unavailable Mouchli, Mohamad A. Attending Unavailable Allergies Allergy Classification Reported Allergen(s) Allergy Type Date of Onset Reaction(s) Facility (7 sources) Sulfonamides (Antibiotic) Propensity to adverse reactions (John) 07/08/2011 Nausea/Vomiting/Di [facility] [employer] Other (16 sources) Simvastatin; Translations: [simvastatin] Drug Allergy Unknown (qualifier value) [facility] (10 sources) Sulfamethoxazole / Trimethoprim; Translations: [sulfamethoxazole- trimethoprim] Drug Allergy Influenza-like illness (finding) [facility] (6 sources) Sulfamethoxazole; Translations: [sulfamethoxazole] Drug Allergy Unknown [facility] (1 source) Sulfamethoxazole / Trimethoprim Drug Allergy 017 [facility] (2 sources) Sulfonamides (Antibiotic) Drug allergy (disorder) 017 [facility] Repository (2 sources) Simvastatin Allergy to substance 023 [facility] Healthcare Work Phone: (2 sources) Sulfonamides (Antibiotic) Drug Intolerance 018 [facility] Healthcare (2 sources) Trimethoprim Drug Allergy 023 [facility] Healthcare (3 sources) metFORMIN Drug Allergy Gastrointestinal [facility] (3 sources) Sulfonamides (Antibiotic) Allergy to substance 024 (John) 07/08/2011 Nausea/Vomiting/Di arrhea Nausea/Vomiting... [facility] (3 sources) glimeperide Allergy to substance 024 [facility]astro[facility] Medications Current Medications Medication Drug Class(es) Dates Sig (Normalized) Sig (Original) [id number] 200 actuat albuterol 0.09 mg/actuat metered dose [...] day Active citalopram 20 mg oral tablet (20 sources) Serotonin Reuptake Inhibitor Start: 08-27-2017 take 20 mg by mouth once daily Celexa 20 mg, Oral, Daily, Other (see comment) Start Date: 08/27/17 Status: Ordered clonazePAM 2 mg oral tablet (20 sources) Benzodiazepine Start: 03-08-2024 take 2 mg [...] day(s), # 120 cap(s), Refills(s) 11, Pharmacy: [facility] #[id number], 154, cm, 05/22/22 7:21:00 EST, Height/Length Dosing, [...] day(s), # 90 tab(s), Refills(s) 0, Pharmacy: [facility] #[id number], 154, cm, 06/03/22 14:37:00 EST, Height/Length Dosing, [...] days Active glimepiride 4 mg oral tablet (9 sources) Sulfonylurea Start: 02-07-2020 take 1 tablet [...] crush, chew, or split. . 0 Active Semglee (2 sources) Insulin Analog Start: 06-02-2024 Semglee SubCutaneous, Daily, Refills(s) 0 Start Date: 06/02/24 Status: Ordered Insulin Glargine-Yfgn (Semglee(Insulin Glarg-Yfgn)Pen) 100 unit/mL (3 [...] 12:00am levothyroxine sodium 0.125 mg oral tablet (20 sources) l-Thyroxine Start: 03-08-2024 take 1 tablet [...] Active liothyronine sodium 0.005 mg oral tablet (20 sources) l-Triiodothyronine Start: 03-08-2024 take 10 ug [...] 0 Active take 2 tablets by mo [facility] every twenty-four hours Liothyronine Sodium 5 MCG 2 tablet on an empty stomach Orally Once a day Active meclizine hydrochloride 25 mg oral tablet (1 source) Antiemetic Start: 04-10-2024 take 25 mg by mouth four times daily Meclizine Active 25 MG PO Four times daily April 10, 2024 12:00am pantoprazole 40 mg delayed release oral tablet (17 sources) Proton Pump Inhibitor Start: 04-10-2024 Pantoprazole Active MG PO April 10, 2024 12:00am Start: 04-14-2022 take 1 tablet by [facility] once daily pantoprazole 40 mg Oral EC Tab 40 mg = 1 tab(s), Oral, Daily, # 30 tab(s), Refills(s) 3, Pharmacy: [facility] #[id number], 154, cm, 04/14/22 12:07:00 EDT, Height/Length Dosing, 74, kg, 04/14/22 12:07:00 EDT, Weight Dosing Start Date: 04/14/22 Status: Ordered Start: 04-14-2022 take 1 tablet by [facility] once daily pantoprazole 40 mg Oral EC Tab 40 mg = 1 tab(s), Oral, Daily, # 30 tab(s), Refills(s) 3, Pharmacy: [facility] #[id number], 154, cm, 04/14/22 12:07:00 EDT, Height/Length Dosing, 74, kg, 04/14/22 12:07:00 EDT, Weight Dosing Start Date: 04/14/22 Status: Ordered rosuvastatin 5 mg oral capsule (20 sources) HMG-CoA Reductase Inhibitor Start: 08-27-2017 take 5 mg by mouth once daily at bedtime Crestor 5 mg, Oral, Once a day (at bedtime), High cholesterol Start Date: 08/27/17 Status: Ordered rosuvastatin (Cr estor) 5 MG tablet 1 (one) time each day at the same time. 0 Active take 1 tablet by mouth in the mo rning rosuvastatin (Crestor) 10 MG tablet Take 10 [...] Once a day for 90 days Active sucralfate 1000 mg oral tablet (2 sources) Aluminum Complex Start: 06-02-2024 take 1 tablet by mouth four times daily Carafate 1 gram Tab 1 gm = 1 tab(s), Oral, QID, # 120 tab(s), Refills(s) 4, Pharmacy: [facility] #[id number], 158, cm, 06/02/24 9:26:00 EST, Height/Length Dosing, 72.6, kg, 06/02/24 9:26:00 EST, Weight Dosing Start Date: 06/02/24 Status: Ordered Tirzepatide (1 source) Start: 04-10-2024 Tirzepatide (Mounjaro) [...] Date Documented Da te Episodic/Chronic Abdominal pain (20 sources) Abdominal pain; Translations: [Abdominal pain, other specified site] Onset: 2 Episodic Administrative/social admission (9 sources) Dietary counseling and surveillance; Translations: [Patient encounter status] Onset: 2 Resolved: 2 Episodic Allergic reactions (2 sources) Atopic dermatitis; Translations: [Other atopic dermatitis] Onset: 3 04-29-2023 Chronic Anal and rectal conditions (7 sources) Rectal pain; Translations: [Other specified diseases of anus and rectum] Episodic Anxiety disorders (18 sources) Agoraphobia; Translations: [Panic disorder] 02-07-2020 Chronic [...] 2 Resolved: 2 Chronic Diverticulosis and diverticulitis (10 sources) Diverticulitis; Translations: [Diverticula of intestine] Onset: 4 02-07-2020 Chronic Esophageal disorders (13 sources) Gastroesophageal reflux disease; Translations: [Gastroesophageal reflux disease without esophagitis] Onset: 2 02-07-2020 Chronic Esophageal disorders (6 sources) Esophagitis; Translations: [Esophagitis, other specified type] Episodic Essential hypertension (9 sources) Essential hypertension; Translations: [Essential (primary) hypertension] Onset: 2 Resolved: 2 Chronic Gastritis and duodenitis (7 sources) Gastritis; Translations: [Gastritis, unspecified, without bleeding] Onset: 2 Episodic Genitourinary symptoms and ill-defined conditions (9 sources) Genuine stress incontinence 02-07-2020 Chronic Hemorrhoids (7 sources) External hemorrhoids; Translations: [Residual hemorrhoidal skin tags] Episodic Hypertension with complications and secondary hypertension (1 source) Hypertensive heart disease with heart failure; Translations: [HTN HEART DISEASE W/HEART FAIL] Onset: 3 Chronic Mood disorders (9 sources) Depressive disorder 02-07-2020 Chronic Nausea and vomiting (2 sources) Nausea; Translations: [Nausea] Onset: 2 Episodic Nutritional deficiencies (8 sources) Vitamin D deficiency; Translations: [Vitamin D deficiency, unspecified] Onset: 3 Chronic Other and unspecified benign neoplasm (9 sources) Hyperplastic polyp of large intestine 02-07-2020 Episodic Other and unspecified benign neoplasm (6 sources) History of polyp of colon; Translations: [Personal history of colonic polyps] Onset: 2 Episodic Other ear and sense organ disorders (1 source) Bilateral hearing loss; Translations: [Conductive hearing loss, unilateral, right ear with restricted hearing on the contralateral side] 08-11-2023 Chronic Other ear and sense organ disorders (9 sources) Lesion of external ear 02-14-2020 Episodic Other endocrine disorders (1 source) Hypoglycemia, unspecified; Translations: [Hypoglycemia, unspecified] 04-10-2024 Chronic Other gastrointestinal disorders (11 sources) Heartburn; Translations: [Heartburn] Onset: 2 Episodic Other gastrointestinal disorders (9 sources) History of pancreatitis 02-07-2020 Episodic Other gastrointestinal disorders (1 source) H/O: gastrointestinal disease; Translations: [Personal history of other diseases of the digestive system] Onset: 4 Episodic Other liver diseases (1 source) Enzyme level - finding; Translations: [Abnormal levels of other serum enzymes] Onset: 4 Episodic Other liver diseases (2 sources) Alkaline phosphatase raised 06-02-2024 Episodic Other nutritional; endocrine; and metabolic disorders [...] Onset: 3 06-09-2023 Episodic Residual codes; unclassified (11 sources) Sleep apnea; Translations: [Sleep apnea, unspecified] Onset: 3 02-07-2020 Chronic Residual codes; unclassified (6 sources) Tobacco user; Translations: [Tobacco use disorder, current] Episodic Residual codes; unclassified (1 source) Acquired absence of organ; Translations: [Acquired absence of other specified parts of digestive tract] Onset: 4 Episodic Residual codes; unclassified (3 sources) Early satiety; Translations: [Early satiety] Onset: 4 Episodic Spondylosis; intervertebral disc disorders; other back problems (15 sources) Cervical disc disorder; Translations: [Lumbosacral spondylosis] Onset: 3 02-07-2020 Chronic Substance-related disorders (9 sources) Smoker 08-27-2017 Chronic Comment on above: Added secondary to d ocumentation in Social History. Thyroid disorders (20 sources) Hypothyroidism; Translations: [Unspecified hypothyroidism] Onset: 3 02-07-2020 Chronic Thyroid disorders (9 sources) Thyroid dysfunction 08-27-2017 Episodic Unclassified (9 sources) Patient encounter status 04-14-2022 Past or Other Problems Problem Classification Problem Date Documented Date Episodic/Chronic Conditions associated with dizziness or vertigo [...] 29.0-29.9, adult Onset: 03-11-2022 Resolved: 03-11-2022 Episodic Unclassified (2 sources) Family history of cholecystectomy 06-02-2024 Results Test Name Value Interpretation Reference Range Facility Patient Educationon 06-13-20 Patient Education Patient Education [facility] Patient Letter [facility] June 13, 2024 JOSE THOMAS [address] [place] [address] : 1965 The anti-dumping diet, also known as the post-gastrectomy diet, helps manage dumping syndrome by eating smaller meals more frequently and avoiding foods that can cause rapid blood sugar shifts ??? Meals: Eat six to eight small meals or snacks throughout the day instead of three large meals. ??? Food: Eat more protein and healthy fats, and limit simple sugars and carbohydrates. Good sources of protein include poultry, red meat, fish, eggs, tofu, nuts, milk, yogurt, cheese, and peanut butter. ??? Liquids: Avoid fluids with meals, and limit fluids to 4 oz during meals. Drink other liquids 30 minutes to 1 hour before or after eating. ??? Temperature: Avoid very hot or very cold foods and liquids. ??? Rest: Lie down on your back for 30 minutes after eating. ??? Fiber: Eat more dietary fiber to add bulk to your meal and slow down its transit time. ??? Milk: Initially, milk and milk products may not be tolerated. Try lactose-free milk instead. Other tips include: Chew your food thoroughly, Eat room temperature foods, Increase your pectin intake to manage diarrhea, and Use low-fat cooking methods Normal [facility] Gastric Emptying Studyon 06-12-2024 NM Gastric Emptying Study Exam Date/Time: 06/12/2024 10:21 EST Reason for Exam: Nausea Report IMPRESSION: ACCELERATED RATE OF GASTRIC EMPTYING OF A SOLID MEAL. EXAMINATION: NM Gastric Emptying Study HISTORY: Nausea. TECHNIQUE: 0.8 mCi Tc-99m sulfur colloid was given orally in a meal of 4 oz egg beaters, 2 slices of toast and 120 ml water. RESULT: Static images of the upper abdomen were obtained over 2 hours after the ingestion of the radionuclide. The percent gastric retention at 2 hours measures 0 %. There is evidence of accelerated emptying of gastric contents, with 20% retention at 1 hour (rapid emptying is <30% retention at 1 hour). Ordering Provider: Roseline Melendrez FINAL REPORT Dictated: 06/12/2024 2:34 pm Lul Bustillos MD. Signed (Electronic Signature): 06/12/2024 2:34 pm Signed by: Lul Bustillos MD Transcribed by: KERVIN Technologist: SONAM Technical Comments Dose (mCi Tc99m Sulfur Colloid): 0.8 Dose Administered With: 4 oz egg beaters, 2 slices of toast, 120 ml of water Time Frame Required to Ingest the Meal (mins): 10 % Remainin.5 hr (Lower Limit 70%) 74 1.0 hr (Lower Limit 30%, Upper Limit 90%) 20 2.0 hr (Upper Limit 60%) 0 Normal [facility] Ambulatory Visit Summaryon 1 08-03-2023 Ambulatory Visit Summary Ambulatory Visit Summary JOSE THOMAS :1965 Visit Date:06/02/2024 Ambulatory Visit Instructions Your Diagnosis Abdominal pain Nausea Epigastric pain Early satiety Diverticulitis Heartburn History of pancreatitis Status post cholecystectomy Elevated alkaline phosphatase level Your Care Team Attending Physician - Roseline Melendrez MD Primary Care Physician - Kaitlyn Downing MD This Is Your Medications List Contact prescribing physician if questions or concerns citalopram (Celexa) clonazepam (Klonopin) glimepiride (Amaryl 4 mg Tab) insulin glargine (Semglee) levothyroxine (Synthroid) liothyronine (Cytomel 5 mcg Tab) pantoprazole (pantoprazole 40 mg Oral EC Tab) rosuvastatin (Crestor) Procedures Performed Esophagogastroduoden oscopy (05/22/2022), TVT with sling (09/10/2017), Abdominal hysterectomy, Cholecystectomy, Closed fracture of right wrist, feet, History of arthroplasty of right knee. Discharge Vitals Respiratory Rate 16 Blood Pressure 118/83 Height 158 cm Height 62 in Weight 72.6 kg Weight 160.055 lb BMI 29.08 What to do next Scheduled Follow-Up Appointments Wednesday 8:15 AM EST With: Parvin LAND, Roseline Chase Where: [facility] [address] [place] [address] [address] [place], [place] [id number]- You Need to Complete the Following Alkaline Phosphatase Isoenzymes, Blood, Routine collect, 06/02/24, Order for future visit, Lab Collect, Abdominal pain Nausea Epigastric pain Early satiety Diverticulitis Heartburn History of pancreatitis Status post cholecystectomy Elevated alkaline phosphatase level... Antimitochondrial Antibody, Quantitative, Blood, Routine collect, 06/02/24, Order for future visit, Lab Collect, Abdominal pain Nausea Epigastric pain Early satiety Diverticulitis Heartburn History of pancreatitis Status post cholecystectomy Elevated alkaline phosphatase level... CBC w/ Auto Diff, Blood, Routine collect, 06/02/24, Order for future visit, Lab Collect, Abdominal pain Nausea Epigastric pain Early satiety, Print Label By Order Location Comprehensive Metabolic Panel, Blood, Routine collect, 06/02/24, Order for future visit, Lab Collect, Abdominal pain Nausea Epigastric pain Early satiety, Print Label By Order Location NM Gastric Emptying Study, 06/02/24, Routine, Order for Future Visit, Transport Mode: Ambulatory, Reason: Nausea, Abdominal pain Nausea Epigastric pain, No, pp_set_radiology_sub specialty, [facility] Medications What How Much When Why Instructions Unchanged citalopram (Celexa) 20 Milligram By Mouth Every day Contact prescribing physician if questions or concerns Unchanged clonazepam (Klonopin) 2 Milligram By Mouth 3 times a day Contact prescribing physician if questions or concerns Unchanged glimepiride (Amaryl 4 mg Tab) 1 Tablets By Mouth Every day Contact prescribing physician if questions or concerns Unchanged insulin glargine (Semglee) Subcutaneous Every day Contact prescribing physician if questions [...] Contact prescribing physician if questions or concerns Allergies Bactrim (Flu-like symptoms) Zocor (Unknown) simvastatin (Unknown, Unknown) sulfamethoxazole (Unknown) Problems Ongoing - Any problem that you are currently receiving treatment for. Acute epigastric pain Agoraphobia Cervical disc disease Depression Diabetes mellitus Diverticulitis Early satiety Elevated alkaline phosphatase level Epigastric pain Gastritis GERD (gastroesophageal reflux disease) Heartburn History of colon polyps History of pancreatitis Hypercholesterolemia Hyperplastic colon polyp Hypothyroidism Lesion of earlobe Screen for colon cancer Sleep apnea Smoker Status post cholecystectomy Stress incontinence Thyromegaly Historical - Any problem that you are no longer receiving treatment for. FH: cholecystectomy Patient Survey You may receive a survey via text or e-mail asking about your office visit. Please share your experience with us by completing your survey. We appreciate your feedback and thank you for choosing us for your care. Normal [facility] Gastroenterology Office/Clin ic Noteon 06-02-2024 Gastroenterology Office/Clinic Note Gastroenterology Office/Clinic Note Chief Complaint Abdominal pain, nausea HPI Staff This is a 58 year old female who presents today for a sick call for complaints of abdominal pain and nausea. Denies Blood Thinners Denies GLP-1 Agonists Denies any family history of colon cancer. Her son and granddaughter both have Crohn's. Denies Dysphagia, constipation, diarrhea or bloody stools. Abdominal pain: When did you first have this pain: intermittent for 1-2 years Quality (sharp, dull): varies Constant or comes or go: intermittent location and radiation: Above umbilicus Relation to food: Tomato products and spicy foods make it a little worse Improving or worsening factors factors: certain foods make it worse. She has some improvement if she massages the area. She has tried acid reducers OTC but no relief. Pantoprazole helped for a couple days but stopped. Last office visit w/ Odalys 06/03/22 Assessment/Plan 1. Epigastric pain (R10.13: Epigastric pain) Is having epigastric pain for the last 6-7 months that has improved. 2. Gastritis (K29.70: Gastritis, unspecified, without bleeding) Avoid NSAIDs. Continue pantoprazole 40mg daily. 3. GERD (gastroesophageal reflux disease) (K21.9: Gastro-esophageal reflux disease without esophagitis) Acid reflux has improved with pantoprazole 40mg daily however, is still having acid reflux occurring every night. Ordered to start pepcid 20mg at bedtime- instructed regarding use. 4. History of colon polyps (Z86.010: Personal history of colonic polyps) Patient reports having previous colonoscopy completed in [place], [place] 2 years ago. Patient reports previous colonoscopy 2 years ago at outside facility revealed 2 polyps and was reportedly told to repeat in 10 years. EGD w/ Dr Starks 05/24/22 Impression and Plan Mild antral erythema, random gastric and duodenal biopsies obtained Recommendations: - Proceed with MRCP ( abdominal pain and elevated LFTs) Final Diagnosis (Verified) A: STOMACH, BIOPSY: ??? ANTRAL MUCOSA WITH MILD CHRONIC GASTRITIS AND HYPERPLASTIC REGENERATIVE CHANGES. ??? NO INTESTINAL METAPLASIA IDENTIFIED. ??? NO H. PYLORI MICROORGANISMS IDENTIFIED WITH IMMUNOSTAIN. B: DUODENUM, BIOPSY: ??? DUODENAL MUCOSA WITHIN NORMAL LIMITS. MRCP 06/16/22 IMPRESSION: Cholecystectomy. No bile duct dilation. Hepatomegaly. No focal liver lesion within limitations of the study. Upper GI and Small bowel follow through 11/24/23 Impression: Normal upper GI and small bowel follow through Labs 09/23/23 Hemoglobin 11.3 low Hematocrit 32.9 low Alk Phos 157 high History of Present Illness I have reviewed HPI staff note, most recent labs and imaging, I agree with the above documentation with the following additions/exceptions : PT with epigastric pain for a while worse with tomato juice underwent work up in the past which was negative early satiety vomiting foamy stuff in am Review of Systems PHQ Score Initial Depression Screen Score: 0 SCORE All systems reviewed, negative except as mentioned above Physical Exam Vitals & Measurements RR: 16 BP: 118/83 HT: 62 in HT: 158 cm WT: 72.6 kg WT: 160.055 lb BMI: 29.08 General: alert, no acute distress HEENT: atraumatic normocephalic Cardiovascular: regular rate and rhythm, normal peripheral perfusion Respiratory: Lungs CTA, respirations non labored Extremities: no deformity, no trauma Abdomen: Benign, soft, tender nondistended Assessment/Plan 1. Abdominal pain (R10.9: Unspecified abdominal pain) Ordered: Alkaline Phosphatase Isoenzymes Antimitochondrial Antibody, Quantitative CBC w/ Auto Diff Comprehensive Metabolic Panel NM Gastric Emptying Study 2. Nausea (R11.0: Nausea) Ordered: Alkaline Phosphatase Isoenzymes Antimitochondrial Antibody, Quantitative CBC w/ Auto Diff Comprehensive Metabolic Panel NM Gastric Emptying Study 3. Epigastric pain (R10.13: Epigastric pain) Ordered: Alkaline Phosphatase Isoenzymes Antimitochondrial Antibody, Quantitative CBC w/ Auto Diff Comprehensive Metabolic Panel NM Gastric Emptying Study 4. Early satiety (R68.81: Early satiety) Ordered: Alkaline Phosphatase Isoenzymes Antimitochondrial Antibody, Quantitative CBC w/ Auto Diff Comprehensive Metabolic Panel 5. Diverticulitis (K57.92: Diverticulitis of intestine, part unspecified, without perforation or abscess without bleeding) Ordered: Alkaline Phosphatase Isoenzymes Antimitochondrial Antibody, Quantitative 6. Heartburn (R12: Heartburn) Ordered: Alkaline Phosphatase Isoenzymes Antimitochondrial Antibody, Quantitative 7. History of pancreatitis (Z87.19: Personal history of other diseases of the digestive system) Ordered: Alkaline Phosphatase Isoenzymes Antimitochondrial Antibody, Quantitative 8. Status post cholecystectomy (Z90.49: Acquired absence of other specified parts of digestive tract) Ordered: Alkaline Phosphatase Isoenzymes Antim (more content not included)... Normal [facility] Comment on above: Result Comment: Elec tronically Signed By: Parvin LAND, Roseline Chase\.br\Date and Time Signed: 06/02/24 09:52 EST HbA1c HPLC (Bld) [Mass fract ion]on 03-08-2024 HbA1c (Bld) [Mass fraction] 8.5 % [facility] No Panel Informationon 03-08 Bedside Glucose 243 [facility] Auditory function testson Right Ear: Mild conductive hearing loss above 3K Hz Left Ear: Mild to moderate sensorineural hearing loss above 3K Hz [facility] INSULINon 09-14-2022 Insulin 36.5 uIU/mL Critically high 2.6-24.9 [facility] Comment on above: Performed By: #### I NSULIN #### [facility] [address] [place] [address] Dr. Kizzy Lebron BNPon 09-12-2022 Natriuretic peptide B (Bld) [Mass/Vol] 44.0 pg/mL Normal <=900.0 [facility] Comment on above: Performed By: #### C MP, BNP, TSH, LIPID, T7 #### [facility] [address] [place] [address] Dr. Kizzy Lebron CBC AUTO DIFFon 09-12-2022 BASO # 0.1 103/ul Normal 0.0-0.1 [facility] Comment on above: Performed By: #### C BC #### [facility] [address] [place] [address] Dr. Kizzy Lebron Basophils/100 WBC (Bld) 0.8 % Normal 0.2-2.0 [facility] [facility] Comment on above: Performed By: #### C BC #### [facility] [address] [place] [address] Dr. Kizzy Lebron EO # 0.1 103/ul Normal 0.0-0.7 [facility] Comment on above: Performed By: #### C BC #### [facility] [address] [place] [address] Dr. Kizzy Lebron Eosinophils/100 WBC (Bld) 1.9 % Normal 0.9-7.0 [facility] Comment on above: Performed By: #### C BC #### [facility] [address] [place] [address] Dr. Kizzy Lebron Erythrocyte distribution width (RBC) [Ratio] 16.0 % Critically high 11.0-15.0 [facility] Comment on above: Performed By: #### C BC #### [facility] [address] [place] [address] Dr. Kizzy Lebron Hematocrit (Bld) [Volume fraction] 41.1 % Normal 36.0-48.0 [facility] Comment on above: Performed By: #### C BC #### [facility] [address] [place] [address] Dr. Kizzy Lebron Hemoglobin (Bld) [Mass/Vol] 13.5 g/dL Normal 12.0-16.0 [facility] Comment on above: Performed By: #### C BC #### [facility] [address] [place] [address] Dr. Kizzy Lebron IG # 0.09 10e3/ul Critically high 0.00-0.03 [facility] Comment on above: Performed By: #### C BC #### [facility] [address] [place] [address] Dr. Kizzy Lebron IG % 1.2 % Critically high 0.0-0.5 [facility] Comment on above: Performed By: #### C BC #### [facility] [address] [place] [address] Dr. Kizzy Lebron LYMPH # 2.0 103/ul Normal 1.2-3.8 [facility] Comment on above: Performed By: #### C BC #### [facility] [address] [place] [address] Dr. Kizzy Lebron Lymphocytes/100 WBC (Bld) 27.0 % Normal 20.5-60.0 [facility] Comment on above: Performed By: #### C BC #### [facility] [address] [place] [address] Dr. Kizzy Lebron MANUAL DIFF REQ NO Normal [facility] Comment on above: Performed By: #### C BC #### [facility] [address] [place] [address] Dr. Kizzy Lebron MCH (RBC) [Entitic mass] 35.8 pg Critically high 26.7-34.0 [facility] Comment on above: Performed By: #### C BC #### [facility] [address] [place] [address] Dr. Kizzy Lebron MCHC (RBC) [Mass/Vol] 32.8 g/dL Normal 29.9-35.2 [facility] Comment on above: Performed By: #### C BC #### [facility] [address] [place] [address] Dr. Kizzy Lebron MCV (RBC) [Entitic vol] 109.0 fL Critically high 81.0-99.0 [facility] Comment on above: Performed By: #### C BC #### [facility] [address] [place] [address] Dr. Kizzy Lebron MONO # 0.5 103/ul Normal 0.3-0.8 [facility] Comment on above: Performed By: #### C BC #### [facility] [address] [place] [address] Dr. Kizzy Lebron Monocytes/100 WBC (Bld) 6.9 % Normal 1.7-12.0 [facility] Comment on above: Performed By: #### C BC #### [facility] [address] [place] [address] Dr. Kizzy Lebron NEUT # 4.6 103/ul Normal 1.4-6.5 [facility] Comment on above: Performed By: #### C BC #### [facility] [address] [place] [address] Dr. Kizzy Lebron Neutrophils/100 WBC (Bld) 62.2 % Normal 43.0-75.0 [facility] Comment on above: Performed By: #### C BC #### [facility] [address] [place] [address] Dr. Kizzy Lebron Platelet mean volume (Bld) [Entitic vol] 9.7 fL Normal 9.5-13.5 [facility] Comment on above: Performed By: #### C BC #### [facility] [address] [place] [address] Dr. Kizzy Lebron PLT 208 103/ul Normal 150-450 [facility] Comment on above: Performed By: #### C BC #### [facility] [address] [address] [address] Kizzy Lebron RBC 3.77 106/ul Critically low 4.20-5.40 [facility] Comment on above: Performed By: #### C BC #### [facility] [address] [address] [address] Kizzy Lebron WBC 7.4 103/ul Normal 4.0-11.0 [facility] Comment on above: Performed By: #### C BC #### [facility] [address] [address] [address] Kizzy Lebron FREE THYROXINE INDEX T7on FTI 2.60 Normal 1.30-4.50 [facility] Comment on above: Performed By: #### C MP, BNP, TSH, LIPID, T7 #### [facility] [address] [address] [address] Kizzy Lebron T3U 31.0 % Normal 30.0-39.0 [facility] Comment on above: Performed By: #### C MP, BNP, TSH, LIPID, T7 #### [facility] [address] [address] [address] Kizzy Lebron T4 [Mass/Vol] 8.40 ug/dL Normal 4.80-13.90 [facility] Comment on above: Performed By: #### C MP, BNP, TSH, LIPID, T7 #### [facility] [address] [address] [address] Kizzy Lebron GLYCOHEMOGLOBIN A1Con 2022 ADA RECOMMENDATION SEE BELOW Normal [facility] Comment on above: Result Comment: ADA RECOMMENDED LIMIT 4.0 - 6.0 ADA THERAPEUTIC TARGET < 7.0 ACTION SUGGESTED > 7.0 Performed By: #### A 1C ####[facility] [address] [address]Dr. Kizzy Lebron Glucose [Mass/Vol] 151 mg/dL Normal [facility] Comment on above: Performed By: #### A 1C ####[facility] [address] [place], [place] [address]KbRomana Lebron HbA1c (Bld) [Mass fraction] 6.9 % Critically high 4.5-6.2 [facility] Comment on above: Performed By: #### A 1C ####[facility] [address] [place], [place] [address]UwDr. Kizzy Lebron IRONon 09-12-2022 Iron [Mass/Vol] 57.0 ug/dL Normal 50.0-170.0 [facility] Comment on above: Performed By: #### I DEDE VITAD ####[facility] [address] [place], [place] [address]AiRomana Lebron LIPID PROFILEon 09-12-2022 CHOL-HDL RATIO NORM SEE BELOW Normal [facility] Comment on above: Result Comment: 3.3 - 4.4 LOW RISK 4.4 - 7.1 AVERAGE RISK 7.1 - 11.0 MODERATE RISK >11.0 HIGH RISK Performed By: #### C MP, BNP, TSH, LIPID, T7 #### [facility] [address] [address] [address] Kizzy Lebron Cholesterol [Mass/Vol] 185 mg/dL Normal <=200 [facility] Comment on above: Performed By: #### C MP, BNP, TSH, LIPID, T7 #### [facility] [address] [address] [address] Kizzy Lebron Cholesterol in HDL [Mass/Vol] 31 mg/dL Critically low 40-60 [facility] Comment on above: Performed By: #### C MP, BNP, TSH, LIPID, T7 #### [facility] [address] [address] [address] Kizzy Lebron Cholesterol in LDL [Mass/Vol] 109.8 mg/dL Normal [facility] Comment on above: Performed By: #### C MP, BNP, TSH, LIPID, T7 #### [facility] [address] [address] [address] Kizzy Lebron Cholesterol.total/Cho lesterol in HDL [Mass ratio] 6.0 {ratio} Normal [facility] Comment on above: Performed By: #### C MP, BNP, TSH, LIPID, T7 #### [facility] [address] [address] [address] Kizzy Lebron HDL NORMAL > or = 60 mg/dl - LOW CARDIOVASCULAR RISK <40 mg/dl - HIGH CARDIOVASCULAR RISK Normal [facility] Comment on above: Performed By: #### C MP, BNP, TSH, LIPID, T7 #### [facility] [address] [address] [address] Kizzy Lebron LDL CALC NORMAL SEE BELOW Normal [facility] Comment on above: Result Comment: <100 mg/dl OPTIMAL 100 - 129 mg/dl NEAR OR ABOVE OPTIMAL 130 - 159 mg/dl BORDERLINE HIGH 160 - 189 mg/dl HIGH >190 mg/dl VERY HIGH Performed By: #### C MP, BNP, TSH, LIPID, T7 #### [facility] [address] [address] [address] Kizzy Lebron Triglyceride [Mass/Vol] 221 mg/dL Critically high <=150 [facility] Comment on above: Performed By: #### C MP, BNP, TSH, LIPID, T7 #### [facility] [address] [address] [address] Kizzy Lebron VLDL CALC 44.2 mg/dL Normal [facility] Comment on above: Performed By: #### C MP, BNP, TSH, LIPID, T7 #### [facility] [address] [address] [address] Kizzy Lebron PROF 14(COMP METB)on 023 Albumin [Mass/Vol] 3.7 g/dL Normal 3.4-5.0 [facility] [place] [facility] Comment on above: Performed By: #### C MP, BNP, TSH, LIPID, T7 #### [facility] [address] [address] [address] Kizzy Lebron Albumin/Globulin [Mass ratio] 1.1 {ratio} Normal [facility] Comment on above: Performed By: #### C MP, BNP, TSH, LIPID, T7 #### [facility] [address] [address] [address] Kizzy Lebron ALP [Catalytic activity/Vol] 166 U/L Critically high 46-116 [facility] Comment on above: Performed By: #### C MP, BNP, TSH, LIPID, T7 #### [facility] [address] [place] [address] Dr. Kizzy Lebron ALT [Catalytic activity/Vol] 50 U/L Normal 14-59 [facility] Comment on above: Performed By: #### C MP, BNP, TSH, LIPID, T7 #### [facility] [address] [place] [address] Dr. Kizzy Lebron Anion gap [Moles/Vol] 13.2 mmol/L Normal [facility] Comment on above: Performed By: #### C MP, BNP, TSH, LIPID, T7 #### [facility] [address] [place] [address] Dr. Kizzy Lebron AST [Catalytic activity/Vol] 34 U/L Normal 15-37 [facility] Comment on above: Performed By: #### C MP, BNP, TSH, LIPID, T7 #### [facility] [address] [place] [address] Dr. Kizzy Lebron Bilirubin [Mass/Vol] 0.4 mg/dL Normal 0.2-1.0 [facility] Comment on above: Performed By: #### C MP, BNP, TSH, LIPID, T7 #### [facility] [address] [place] [address] Dr. Kizzy Lebron Calcium [Mass/Vol] 9.3 mg/dL Normal 8.5-10.1 [facility] [place] [facility] Comment on above: Performed By: #### C MP, BNP, TSH, LIPID, T7 #### [facility] [address] [place] [address] Dr. Kizzy Lebron Chloride [Moles/Vol] 105 mmol/L Normal 98-107 [facility] Comment on above: Performed By: #### C MP, BNP, TSH, LIPID, T7 #### [facility] [address] [place] [address] Dr. Kizzy Lebron CO2 [Moles/Vol] 28.1 mmol/L Normal 21.0-32.0 [facility] Comment on above: Performed By: #### C MP, BNP, TSH, LIPID, T7 #### [facility] [address] [address] [address] Kizzy Lebron Creatinine [Mass/Vol] 0.59 mg/dL Normal 0.55-1.02 [facility] Comment on above: Performed By: #### C MP, BNP, TSH, LIPID, T7 #### [facility] [address] [place] [address] Dr. Kizzy Lebron EGFR-AF BRUNEIAN >60 Normal >=60 [facility] Comment on above: Performed By: #### C MP, BNP, TSH, LIPID, T7 #### [facility] [address] [place] [address] Dr. Kizzy Lebron EGFR-NON AF BRUNEIAN >60 Normal >=60 [facility] Comment on above: Performed By: #### C MP, BNP, TSH, LIPID, T7 #### [facility] [address] [place] [address] Dr. Kizzy Lebron Globulin (S) [Mass/Vol] 3.4 g/dL Normal [facility] Comment on above: Performed By: #### C MP, BNP, TSH, LIPID, T7 #### [facility] [address] [place] [address] Dr. Kizzy Lebron Glucose [Mass/Vol] 105 mg/dL Normal 74-106 [facility] [place] [facility] Comment on above: Performed By: #### C MP, BNP, TSH, LIPID, T7 #### [facility] [address] [place] [address] Dr. Kizzy Lebron Potassium [Moles/Vol] 4.3 mmol/L Normal 3.5-5.1 [facility] Comment on above: Performed By: #### C MP, BNP, TSH, LIPID, T7 #### [facility] [address] [place] [address] Dr. Kizzy Lebron Protein [Mass/Vol] 7.1 g/dL Normal 6.4-8.2 [facility] Comment on above: Performed By: #### C MP, BNP, TSH, LIPID, T7 #### [facility] [address] [place] [address] Dr. Kizzy Lebron Sodium [Moles/Vol] 142 mmol/L Normal 136-145 [facility] [place] [facility] Comment on above: Performed By: #### C MP, BNP, TSH, LIPID, T7 #### [facility] [address] [address] [address] Kizzy Lebron Urea nitrogen [Mass/Vol] 11.0 mg/dL Normal 7.0-18.0 [facility] Comment on above: Performed By: #### C MP, BNP, TSH, LIPID, T7 #### [facility] [address] [address] [address] Kizzy Lebron Urea nitrogen/Creatinine [Mass ratio] 18.6 mg/mg Normal [facility] Comment on above: Performed By: #### C MP, BNP, TSH, LIPID, T7 #### [facility] [address] [address] [address] Kizzy Lebron TSHon 09-12-2022 TSH 0.444 uIU/mL Normal 0.358-3.740 [facility] Comment on above: Performed By: #### C MP, BNP, TSH, LIPID, T7 #### [facility] [address] [address] [address] Kizzy Lebron VITAMIN D 25 OHon 09-12-2022 VIT D 25-OH 17.6 ng/mL Normal [facility] Comment on above: Performed By: #### I DEDE VITAD ####[facility] [id number] [address]Dr. Kizzy Lebron VIT D RANGES SEE BELOW Normal [facility] Comment on above: Result Comment: <20 ng/mL Vit D deficient 20 - <30 ng/mL Vit D insufficient 30 - 100 ng/mL Vit D sufficient >100 ng/mL Potential Toxicity Performed By: #### I DEDE VITAD ####[facility] [id number] [address]Dr. Kizzy Lebron CHEMISTRYOrdered By: SYSTEM SYSTEM on 04-14-2022 Albumin [Mass/Vol] 4.4 g/dL Normal 3.3 - 5.0 gm/dL [facility] Remisol Albumin/Globulin [Mass ratio] 1.3 {ratio} Normal [...] 0.7 mg/dL Normal 0.5 - 1.3 mg/dL [facility] Remisol GFR/1.73 sq M.predicted among blacks MDRD (S/P/Bld) [Vol rate/Area] mL/min/1.73 m2 Normal >=59mL/min/1. 73 m2 FT Chem S GFR/1.73 sq M.predicted among non-blacks MDRD (S/P/Bld) [Vol rate/Area] mL/min/1.73 m2 Normal >=59mL/min/1. 73 m2 FT Chem S Globulin (S) [Mass/Vol] 3.3 g/dL Normal 1.4 - 4.0 gm/dL [facility] Glucose [Mass/Vol] 159 mg/dL Normal 55 - 199 mg/dL [facility] Lipase [Catalytic activity/Vol] 48 U/L Normal [...] 18.3 % High 10.9 - 14.2 % [facility] HemeAutoSS Hematocrit (Bld) [Volume fraction] 45.3 % Normal 34.0 - 46.0 % [facility] HemeAutoS S Hemoglobin (Bld) [Mass/Vol] 14.6 g/dL Normal 12.0 - 16.0 gm/dL [facility] HemeAutoSS MCH (RBC) [Entitic mass] 29.9 pg Normal 27.0 - 34.0 pg [facility] HemeAutoSS MCHC (RBC) [Mass/Vol] 32.2 g/dL Normal 31.4 - 36.0 gm/dL [facility] HemeAutoSS MCV (RBC) [Entitic vol] 92.7 fL Normal 80.0 - 100.0 fL [facility] HemeAutoSS Platelet mean volume (Bld) [Entitic vol] 7.8 fL Normal 6.4 - 10.8 fL [facility] HemeAut oSS Platelets (Bld) [#/Vol] 260.0 E9/L Normal 150.0 - 500.0 E9/L [facility] HemeAutoSS RBC (Bld) [#/Vol] 4.9 E12/L Normal 4.3 - 5.9 E12/L [facility] HemeAutoSS WBC corrected for nucl RBC Auto (Bld) [#/Vol] 9.2 E9/L Normal 4.0 - 11.0 E9/L [facility] HemeAutoSS XR SINUSES 3 VIEWS OR GREATE [...] by: TERELL HINTON Date: 2022-03-17 07:21 Normal [facility] Glucose - FINGER STICKon Glucose [Mass/Vol] 190 mg/dL [employer] Other A1C HEMOGLOBINon 02-18-2022 HbA1c (Bld) [Mass fraction] 6.8 % [employer] Other Glucose - FINGER STICKon Glucose [Mass/Vol] 113 mg/dL [employer] Other HbA1c (Bld) [Mass fraction]o n 02-18-2022 A1C HEMOGLOBIN [facility] [employer] Other CIPRIANO by IFAon 01-19-2022 Antinuclear Antibodies, IFA Negative Normal [facility] Comment on above: Result Comment: Nega tive <1:80 Borderline 1:80 Positive >1:80 ICAP nomenclature: AC-0 For more information about Hep-2 cell patterns use ANApatterns.org, the official website for the International Consensus on Antinuclear Antibody (CIPRIANO) Patterns (ICAP). Performed By: #### A NAIFA ####[facility] [id number] [address]Dr. Kizzy Lebron ANTISTREPTOLYSIN O AB (ASO)o n 01-17-2022 Antistreptolysin O Ab 55.0 IU/mL Normal 0.0-200.0 [facility] Comment on above: Performed By: #### A SOAB #### [facility] [address] [place] [address] Dr. Kizzy Lebron RHEUMATOID FACTORon 01-18-20 RA Latex Turbid. <10.0 Normal <14.0 [facility] Comment on above: Performed By: #### R F ####[facility] [id number] [place], [place] [address]Dr. Kizzy Lebron CBC AUTO DIFFon 01-15-2022 BASO # 0.1 103/ul Normal 0.0-0.1 [facility] Comment on above: Performed By: #### C BC #### [facility] [address] [place] [address] Dr. Kizzy Lebron Basophils/100 WBC (Bld) 0.6 % Normal 0.2-2.0 [facility] Comment on above: Performed By: #### C BC #### [facility] [address] [place] [address] Dr. Kizzy Lebron EO # 0.1 103/ul Normal 0.0-0.7 [facility] Comment on above: Performed By: #### C BC #### [facility] [address] [place] [address] Dr. Kizzy Lebron Eosinophils/100 WBC (Bld) 1.3 % Normal 0.9-7.0 [facility] Comment on above: Performed By: #### C BC #### [facility] [address] [place] [address] Dr. Kizzy Lebron Erythrocyte distribution width (RBC) [Ratio] 17.0 % Critically high 11.0-15.0 [facility] Comment on above: Performed By: #### C BC #### [facility] [address] [place] [address] Dr. Kizzy Lebron Hematocrit (Bld) [Volume fraction] 41.7 % Normal 36.0-48.0 [facility] Comment on above: Performed By: #### C BC #### [facility] [address] [place] [address] Dr. Kizzy Lebron Hemoglobin (Bld) [Mass/Vol] 13.5 g/dL Normal 12.0-16.0 [facility] Comment on above: Performed By: #### C BC #### [facility] [address] [place] [address] Dr. Kizzy Lebron IG # 0.08 10e3/ul Critically high 0.00-0.03 [facility] Comment on above: Performed By: #### C BC #### [facility] [address] [place] [address] Dr. Kizzy Lebron IG % 0.9 % Critically high 0.0-0.5 [facility] Comment on above: Performed By: #### C BC #### [facility] [address] [place] [address] Dr. Kizzy Lebron LYMPH # 1.7 103/ul Normal 1.2-3.8 [facility] Comment on above: Performed By: #### C BC #### [facility] [address] [place] [address] Dr. Kizzy Lebron Lymphocytes/100 WBC (Bld) 19.1 % Critically low 20.5-60.0 [facility] Comment on above: Performed By: #### C BC #### [facility] [address] [place] [address] Dr. Kizzy Lebron MANUAL DIFF REQ NO Normal [facility] Comment on above: Performed By: #### C BC #### [facility] [address] [address] [address] Kizzy Lebron MCH (RBC) [Entitic mass] 31.2 pg Normal 26.7-34.0 [facility] Comment on above: Performed By: #### C BC #### [facility] [address] [place] [address] Dr. Kizzy Lebron MCHC (RBC) [Mass/Vol] 32.4 g/dL Normal 29.9-35.2 [facility] Comment on above: Performed By: #### C BC #### [facility] [address] [place] [address] Dr. Kizzy Lebron MCV (RBC) [Entitic vol] 96.3 fL Normal 81.0-99.0 [facility] Comment on above: Performed By: #### C BC #### [facility] [address] [place] [address] Dr. Kizzy Lebron MONO # 0.6 103/ul Normal 0.3-0.8 [facility] Comment on above: Performed By: #### C BC #### [facility] [address] [place] [address] Dr. Kizzy Lebron Monocytes/100 WBC (Bld) 6.7 % Normal 1.7-12.0 [facility] Comment on above: Performed By: #### C BC #### [facility] [address] [place] [address] Dr. Kizzy Lebron NEUT # 6.2 103/ul Normal 1.4-6.5 [facility] Comment on above: Performed By: #### C BC #### [facility] [address] [place] [address] Dr. Kizzy Lebron Neutrophils/100 WBC (Bld) 71.4 % Normal 43.0-75.0 [facility] Comment on above: Performed By: #### C BC #### [facility] [address] [place] [address] Dr. Kizzy Lebron Platelet mean volume (Bld) [Entitic vol] 9.5 fL Normal 9.5-13.5 [facility] Comment on above: Performed By: #### C BC #### [facility] [address] [address] [address] Kizzy Lebron PLT 272 103/ul Normal 150-450 [facility] Comment on above: Performed By: #### C BC #### [facility] [address] [address] [address] Kizzy Lebron RBC 4.33 106/ul Normal 4.20-5.40 [facility] Comment on above: Performed By: #### C BC #### [facility] [address] [address] [address] Kizzy Lebron WBC 8.7 103/ul Normal 4.0-11.0 [facility] Comment on above: Performed By: #### C BC #### [facility] [address] [address] [address] Kizzy Lebron CRPon 01-15-2022 CRP 0.6 mg/dL Normal <=1.0 [facility] Comment on above: Performed By: #### C MP, T7, CRP, TSH, URIC ####[facility] [address] [address]DrRomana Lebron FREE THYROXINE INDEX T7on FTI 2.85 Normal 1.30-4.50 [facility] Comment on above: Performed By: #### C MP, T7, CRP, TSH, URIC ####[facility] [address] [id number] Lebron T3U 30.0 % Normal 30.0-39.0 [facility] Comment on above: Performed By: #### C MP, T7, CRP, TSH, URIC ####[facility] [address] [id number] Lebron T4 [Mass/Vol] 9.50 ug/dL Normal 4.80-13.90 [facility] Comment on above: Performed By: #### C MP, T7, CRP, TSH, URIC ####[facility] [address] [id number] Lebron PROF 14(COMP METB)on 022 Albumin [Mass/Vol] 4.0 g/dL Normal 3.4-5.0 [facility] [place] [facility] Comment on above: Performed By: #### C MP, T7, CRP, TSH, URIC ####[facility] [id number] [address]Dr. Kizzy Lebron Albumin/Globulin [Mass ratio] 1.1 {ratio} Normal [facility] Comment on above: Performed By: #### C MP, T7, CRP, TSH, URIC ####[facility] [address] [place] [address]Dr. Kizzy Lebron ALP [Catalytic activity/Vol] 188 U/L Critically high 46-116 [facility] Comment on above: Performed By: #### C MP, T7, CRP, TSH, URIC ####[facility] [id number] [place], [place] [address]Dr. Kizzy Lebron ALT [Catalytic activity/Vol] 60 U/L Critically high 14-59 [facility] Comment on above: Performed By: #### C MP, T7, CRP, TSH, URIC ####[facility] Exmm[address] [place], [place] [address]Dr. Kizzy Lebron Anion gap [Moles/Vol] 13.7 mmol/L Normal [facility] Comment on above: Performed By: #### C MP, T7, CRP, TSH, URIC ####[facility] Wqnkpem[address] [place], [place] [address]Dr. Kizzy Lebron AST [Catalytic activity/Vol] 27 U/L Normal 15-37 [facility] Comment on above: Performed By: #### C MP, T7, CRP, TSH, URIC ####[facility] Wws[address] [place], [place] [address]Dr. Kizzy Lebron Bilirubin [Mass/Vol] 0.3 mg/dL Normal 0.2-1.0 [facility] Comment on above: Performed By: #### C MP, T7, CRP, TSH, URIC ####[facility] Q[address] [place], [place] [address]Dr. Kizzy Lebron Calcium [Mass/Vol] 9.3 mg/dL Normal 8.5-10.1 [facility] Comment on above: Performed By: #### C MP, T7, CRP, TSH, URIC ####[facility] [address] [place] [address]Dr. Kizzy Lebron Chloride [Moles/Vol] 101 mmol/L Normal 98-107 [facility] Comment on above: Performed By: #### C MP, T7, CRP, TSH, URIC ####[facility] [address] [place] [address]Dr. Kizzy Lebron CO2 [Moles/Vol] 27.4 mmol/L Normal 21.0-32.0 [facility] Comment on above: Performed By: #### C MP, T7, CRP, TSH, URIC ####[facility] K[address] [place], [place] [address]Dr. Kizzy Lebron Creatinine [Mass/Vol] 0.65 mg/dL Normal 0.55-1.02 [facility] Comment on above: Performed By: #### C MP, T7, CRP, TSH, URIC ####[facility] Uank[address] [place], [place] [address]Dr. Kizzy Lebron EGFR-AF BRUNEIAN >60 Normal >=60 [facility] Comment on above: Performed By: #### C MP, T7, CRP, TSH, URIC ####[facility] [address] [place] [address]Dr. Kizzy Lebron EGFR-NON AF BRUNEIAN >60 Normal >=60 [facility] Comment on above: Performed By: #### C MP, T7, CRP, TSH, URIC ####[facility] [address] [place] [address]Dr. Kizzy Lebron Globulin (S) [Mass/Vol] 3.5 g/dL Normal [facility] Comment on above: Performed By: #### C MP, T7, CRP, TSH, URIC ####[facility] [address] [place] [address]Dr. Kizzy Lebron Glucose [Mass/Vol] 162 mg/dL Critically high 74-106 [facility] Comment on above: Performed By: #### C MP, T7, CRP, TSH, URIC ####[facility] [address] [place] [address]Dr. Kizzy Lebron Potassium [Moles/Vol] 4.1 mmol/L Normal 3.5-5.1 [facility] Comment on above: Performed By: #### C MP, T7, CRP, TSH, URIC ####[facility] [address] [place] [address]Dr. Kizzy Lebron Protein [Mass/Vol] 7.5 g/dL Normal 6.4-8.2 [facility] Comment on above: Performed By: #### C MP, T7, CRP, TSH, URIC ####[facility] [address] [place] [address]Dr. Kizzy Lebron Sodium [Moles/Vol] 138 mmol/L Normal 136-145 [facility] Comment on above: Performed By: #### C MP, T7, CRP, TSH, URIC ####[facility] [address] [place] [address]Dr. Kizzy Lebron Urea nitrogen [Mass/Vol] 11.0 mg/dL Normal 7.0-18.0 [facility] Comment on above: Performed By: #### C MP, T7, CRP, TSH, URIC ####[facility] [address] [place], [place] [address]Dr. Kizzy Lebron Urea nitrogen/Creatinine [Mass ratio] 16.9 mg/mg Normal [facility] Comment on above: Performed By: #### C MP, T7, CRP, TSH, URIC ####[facility] [address] [place] [address]Dr. Kizzy Lebron TSHon 01-15-2022 TSH 0.466 uIU/mL Normal 0.358-3.740 [facility] Comment on above: Performed By: #### C MP, T7, CRP, TSH, URIC ####[facility] [address] [place] [address]Dr. Kizzy Lebron URIC ACID SERUMon 01-15-2022 Urate [Mass/Vol] 3.6 mg/dL Normal 2.6-6.0 [facility] Comment on above: Performed By: #### C MP, T7, CRP, TSH, URIC ####[facility] [address] [place], [place] [address]JoRomana Lebron Vital Signs Date Time Vital Sign Value Performing Clinician Facility 06-02-2024 09:22-0500 Blood Pressure Location Yeahka [facility] 06-02-2024 09:22-0500 Diastolic blood pressure 83 mm[Hg] Yeahka [facility] 06-02-2024 09:22-0500 Respiratory rate 16 /min Yeahka [facility] 06-02-2024 09:22-0500 Systolic blood pressure 118 mm[Hg] Yeahka [facility] 04-10-2024 07:16-0400 Body height 157.[address] [facility] 04-10-2024 07:16-0400 Body mass index (BMI) [Ratio] 30.4 kg/m2 [facility] 04-10-2024 07:16-0400 Body weight 75.[address] [facility] 04-10-2024 07:16-0400 Diastolic blood pressure 75 mm[Hg] [facility] 04-10-2024 07:16-0400 Heart rate 84 /min [facility] 04-10-2024 07:16-0400 Respiratory rate 18 /min [facility] 04-10-2024 07:16-0400 SaO2% (BldA) [Mass fraction] 94 % [facility] 04-10-2024 07:16-0400 Systolic blood pressure 122 mm[Hg] [facility] 03-08-2024 10:56-0400 Body height 157.[address] [facility] 03-08-2024 10:56-0400 Body mass index (BMI) [Ratio] 30.8 kg/m2 [facility] 03-08-2024 10:56-0400 Body weight 76.[address] [facility] 03-08-2024 10:56-0400 Diastolic blood pressure 91 mm[Hg] [facility] 03-08-2024 10:56-0400 Heart rate 87 /min [facility] 03-08-2024 10:56-0400 Respiratory rate 18 /min [facility] 03-08-2024 10:56-0400 SaO2% (BldA) [Mass fraction] 94 % [facility] 03-08-2024 10:56-0400 Systolic blood pressure 134 mm[Hg] [facility] 06-03-2022 14:33-0500 Blood Pressure Location Odalys Lozano [facility] 06-03-2022 14:33-0500 Body temperature 96.98 [degF] Odalys Lozano [facility] 06-03-2022 14:33-0500 Diastolic blood pressure 84 mm[Hg] Odalys Lozano [facility] 06-03-2022 14:33-0500 Heart rate 92 /min Odalys Lozano [facility] 06-03-2022 14:33-0500 Systolic blood pressure 128 mm[Hg] Odalys Lozano [facility] 05-22-2022 08:50-0500 Diastolic blood pressure 95 mm[Hg] Pandey SALAM [facility] 05-22-2022 08:50-0500 Heart rate 77 /min Pandey SALAM [facility] 05-22-2022 08:50-0500 Respiratory rate 17 /min Pandey SALAM [facility] 05-22-2022 08:50-0500 SaO2% (BldA) [Mass fraction] 95 % Pandey SALAM [facility] 05-22-2022 08:50-0500 Systolic blood pressure 133 mm[Hg] Pandey SALAM [facility] 05-22-2022 08:35-0500 Diastolic blood pressure 89 mm[Hg] Pandey SALAM [facility] 05-22-2022 08:35-0500 Heart rate 80 /min Pandey SALAM [facility] 05-22-2022 08:35-0500 Respiratory rate 20 /min Padney SALAM [facility] 05-22-2022 08:35-0500 SaO2% (BldA) [Mass fraction] 95 % Pandey SALAM [facility] 05-22-2022 08:35-0500 Systolic blood pressure 127 mm[Hg] Pandey SALAM [facility] 05-22-2022 08:30-0500 Diastolic blood pressure 87 mm[Hg] Pandey SALAM [facility] 05-22-2022 08:30-0500 Heart rate 85 /min Pandey SALAM [facility] 05-22-2022 08:30-0500 Respiratory rate 20 /min Pandey SALAM [facility] 05-22-2022 08:30-0500 SaO2% (BldA) [Mass fraction] 96 % Pandey SALAM [facility] 05-22-2022 08:30-0500 Systolic blood pressure 126 mm[Hg] Pandey SALAM [facility] 05-22-2022 08:24-0500 Body temperature 97.52 [degF] Pandey SALAM [facility] 05-22-2022 07:20-0500 Blood Pressure Location Pandey SALAM [facility] 05-22-2022 07:20-0500 Body temperature 97.88 [degF] Pandey SALAM [facility] 04-14-2022 12:03-0400 Blood Pressure Location Pandey SALAM [facility] 04-14-2022 12:03-0400 Diastolic blood pressure 64 mm[Hg] Pandey SALAM [facility] 04-14-2022 12:03-0400 Heart rate 88 /min Pandey SALAM [facility] 04-14-2022 12:03-0400 SaO2% (BldA) [Mass fraction] 96 % Pandey SALAM [facility] 04-14-2022 12:03-0400 Systolic blood pressure 131 mm[Hg] Pandey SALAM [facility] 03-11-2022 10:45-0400 Body height 157.48 cm [employer] Other [employer] Other 03-11-2022 10:45-0400 Body mass index (BMI) [Ratio] 29.81 kg/m2 Tondra [employer] Other [employer] Other 03-11-2022 10:45-0400 Body weight 73.94 kg [employer] Other [employer] Other 03-11-2022 10:45-0400 Diastolic blood pressure 79 mm[Hg] Tondra [employer] Other [employer] Other 03-11-2022 10:45-0400 Respiratory rate 16 /min Tondra Mapus Other [employer] Other 03-11-2022 10:45-0400 SaO2% (BldA) [Mass fraction] 97 % Tondra Mapus Other [employer] Other 03-11-2022 10:45-0400 Systolic blood pressure 115 mm[Hg] Tondra Mapus Other [employer] Other 02-18-2022 12:00-0400 Body height 157.48 cm Tondra Mapus Other [employer] Other 02-18-2022 12:00-0400 Body mass index (BMI) [Ratio] 30.36 kg/m2 Tondra Mapus Other [employer] Other 02-18-2022 12:00-0400 Body weight 75.3 kg Tondra Mapus Other [employer] Other 02-18-2022 12:00-0400 Diastolic blood pressure 79 mm[Hg] Tondra Mapus Other [employer] Other 02-18-2022 12:00-0400 Respiratory rate 16 /min Tondra Mapus Other [employer] Other 02-18-2022 12:00-0400 SaO2% (BldA) [Mass fraction] 98 % Tondra Mapus Other [employer] Other 02-18-2022 12:00-0400 Systolic blood pressure 112 mm[Hg] Tondra Mapus Other [employer] Other Encounters Encounter Date Encounter Type Care Provider Facility Start: 06-12-2024 End: 06-12-2024 ambulatory Roseline Melendrez Facility[facility] Start: 06-12-2024 End: 06-12-2024 Patient encounter procedure Roseline Melendrez [facility] Start: 06-02-2024 End: 06-02-2024 ambulatory Roseline Melendrez Facility:[facility] Start: 06-02-2024 End: 06-02-2024 Patient encounter procedure Roseline Melendrez [facility] Start: 04-10-2024 End: 04-10-2024 ambulatory [facility] Work Phone: Start: 04-10-2024 End: 04-10-2024 Patient encounter procedure [facility] Work Phone: Start: 03-09-2024 End: 03-09-2024 ambulatory [facility] Work Phone: Start: 03-09-2024 End: 03-09-2024 Patient encounter procedure [facility] Work Phone: Start: 03-08-2024 End: 03-08-2024 ambulatory [facility] Work Phone: Start: 03-08-2024 End: 03-08-2024 Patient encounter procedure [facility] Work Phone: Start: 01-11-2024 End: 01-11-2024 ambulatory MISTY Adair RAYA Not Available Start: 08-25-2023 End: 08-25-2023 ambulatory SHANNAN H TIMMIS Not Available Start: 08-11-2023 [facility] Work Phone: [facility] Start: 08-11-2023 Bamboo flowsheet Rosa jimenez CCC-A Work Phone: [facility] Start: 08-11-2023 End: 08-11-2023 Clinical Support Rosa Kevin CCC-A Work Phone: [facility] Comment on above: OME (otitis media wi th effusion), left (Primary Dx); Conductive hearing loss of right ear with restricted hearing of left ear Start: 06-09-2023 End: 06-09-2023 ambulatory SHANNAN MORALES Not Available Start: 05-31-2023 End: 05-31-2023 Patient encounter procedure Shannan H Yenreinaldobry [facility] Start: 09-12-2022 End: 09-13-[address] KAITLYN DOWNING . Facility: Start: [address] KAITLYN DOWNING . Facili ty:[facility]1 Start: 06-16-2022 End: 06-16-2022 Patient encounter procedure Pandey TAMMY [facility] Start: 06-03-2022 End: 06-03-2022 Patient encounter procedure Odalys Lozano [facility] Start: 05-26-2022 End: 05-26-2022 ambulatory Tondra Mapus Other [employer] Other Start: 05-26-2022 Telephone encounter Tondra Mapus [facility] Start: 05-22-2022 End: 05-22-2022 Patient encounter procedure Pandey SALAM [facility] Start: 04-15-2022 End: 04-15-2022 ambulatory Tondra Mapus Other [employer] Other Start: 04-15-2022 Telephone encounter Tondra Mapus [facility] Start: 04-14-2022 End: 04-14-2022 Patient encounter procedure Dannie STARKS [facility] Start: 04-09-2022 End: 04-09-2022 ambulatory Tondra Mapus Other [employer] Other Start: 04-09-2022 Telephone encounter Tondra Saidaus [facility] Start: 03-24-2022 End: 04-30-2022 Pre-admission assessment Shannan Morales [facility] Start: 03-16-2022 End: 03-17-2022 ambulatory SHANNAN BARLOWLAUREANO Facility: Start: 03-11-2022 (DM) Diabetes Tondra Mapus [facility] Start: 03-11-2022 End: 03-11-2022 ambulatory Tondra K Mapus Facility:[facility] Start: 03-10-2022 End: 03-10-2022 ambulatory Tondra Mapus Other [employer] Other Start: 03-10-2022 Telephone encounter Tondra Mapus [facility] Start: 03-03-2022 End: 03-03-2022 ambulatory Tondra Mapus Other [employer] Other Start: 03-03-2022 Telephone encounter Tondra Mapus [facility] Start: 02-18-2022 End: 02-18-2022 ambulatory Tondra Mapus Other [employer] Other Start: 02-18-2022 [facility] visit new patient Tondra Mapus [facility] Start: 01-15-2022 End: 01-16-[address] KAITLYN DOWNING . Facility: Procedures Date Procedure Procedure Detail Performing Clinician Start: 08-11-2023 AUDITORY FUNCTION TESTS Rosa Contiill [facility] Work Phone: Start: 05-22-2022 Esophagogastroduodenoscopy [employer] Comment on above: gastric biopsy, gastritis, duodenal biop sy r/o celiac disease Start: 09-10-2017 TVT with sling [employer] Abdominal hysterectomy [employer] Cholecystectomy Pandey [employer] Closed fracture of r ight wrist (disorder) [employer] ft (qualifier value) Pandey Bry ALAM History of arthropla sty of right knee [employer] History of cholecystectomy Statu s post cholecystectomy Cierrareena Melendrez Plan of Treatment Date Care Activity Detail Author Start: 09-11-2024 [facility]ulatory [facility] Start: 01-11-2024 End: 01-11-2024 Patient encounter procedure 01/11/2024 11:00 AM EDT Office Visit [facility] [address] [place] [address] Misty Raya MD [address] [place] [address] [facility] Start: 08-25-2023 End: 08-25-2023 Patient encounter procedure 08/25/2023 9:10 AM EST Office Visit [facility] [address] [facility] [address] [place] [id number] Shannan Morales MD [address] [place] [address] [facility] Start: 08-11-2023 End: 08-11-2023 Clinical Support 08/11/2023 9:30 AM EST Clinical Support [facility] [address] [place] [address] Rosa Kevin, [facility] [address] [place] [address] Arrived [facility] Comment on above: Arrived Start: 02-26-2023 Influenza vaccination Influenza Vacc ine (#1) [facility] Start: 2003 Screening for malign ant neoplasm of breast Mammogram [facility] Start: 1993 Screening for malign ant neoplasm of cervix [facility] Start: 1984 Screening for malign ant neoplasm of cervix Pap Smear [facility] Start: 1963 Screening for malign ant neoplasm of colon [facility] Patient Education [facility] Work Phone: Immunizations Immunization Date Immunization Notes Care Provider Fa cility 03-28-2022 influenza virus vaccine, unspecified formulation Pandey SALAM [facility] 05-29-2021 influenza virus vaccine, unspecified formulation Pandey SALAM [facility] 05-29-2021 SARS-CoV-2 (COVID-19 ) mRNA BNT-162z6 vax Pandey SALAM [facility] 09-28-2020 SARS-CoV-2 (COVID-19 ) mRNA BNT-162b2 vax Pandey SALAM [facility] 09-07-2020 SARS-CoV-2 (COVID-19 ) mRNA BNT-162w0 vax Pandey SALAM [facility] 05-16-2018 influenza virus vaccine, unspecified formulation Pandey SALAM [facility] 05-04-2018 influenza virus vaccine, unspecified formulation Pandey SALAM [facility] 03-28-2015 influenza virus vaccine, unspecified formulation Roseline Melendrez [facility] 01-31-2010 tetanus toxoid, reduced diphtheria toxoid, and acellular pertussis vaccine, adsorbed Pandey SALAM [facility] NEGATED: Highlighted row has not occurred!06-03-2022 influenza virus vaccine, unspecified formulation Odalys Lozano [facility] Payers Date Payer Category Payer Medicare [id number] 2022 Unknown [employer] [id number] 2022-Present [address] [place] [address] [id number] 2021 Self-pay 2021 Unknown [id number] 1965 Unknown [id number] 1963 Unknown [id number] 1963 Unknown [id number] 1963 Unknown [id number] 1963 Unknown [id number] 1963 Unknown [id number] 1963 Unknown [id number] 1963 Unknown [id number] 1963 Unknown [id number] 1963 Unknown [id number] 1963 Unknown [id number] 1959 Self-pay [id number] 1959 Unknown [id number] Unknown [id number] Social History Date Type Detail Facility Unknown if ever smoked [employer] Other Start: 06-09-2023 Sex Assigned At F [facility] Start: 04-14-2022 End: 06-02-2024 Tobacco smoking status Heavy tobacco smoker (finding) [facility] Tobacco smoking status Never [facility] Start: 1965 Sex Assigned At Female F [facility] Start: 04-29-2023 [facility] History of tobacco use Cigarette Smoker [facility] Start: 04-29-2023 End: 06-09-2023 Cigarettes smoked current (pack per day) - Reported 1.5 [facility] Start: 04-29-2023 Tobacco use and exposure Smokeless tobacco non-user [facility] Start: 06-09-2023 Alcohol intake Ex-drinker (finding) [facility] Start: 05-02-2023 Alcohol Comment caffeine: yes, coffe e [facility] Start: 1965 Sex Assigned At Not on file [facility] Start: 08-17-2017 [facility] Medical Equipment Procedure Code Equipment Code Equipment Origin al Text Equipment Identifier Dates Test Strips as directed Pen Needle, Diab etic (Bd Ultra-Fine Susan Pen Needle) 32 gauge x 5/32 needle Start: 03-09-2024 Pen Needle, Diab etic (Bd Ultra-Fine Susan Pen Needle) 32 gauge x 5/32 needle Start: 03-09-2024 Functional Status Date Assessment Result Facility 06-02-2024 Functional Status N/A [facility] 06-03-2022 Functional Status N/A [facility] 05-22-2022 Functional Status N/A [facility] 04-14-2022 Functional Status N/A [facility] Clinical Notes 02-18-2022 to 08-11-2023 SOPHIE Arellano - 08/11/2023 9:30 AM EST Note Date [...] tympanogram documented in this encounter [facility] 05-22-2022 Hospital Discharg e instructions [...] what activities are safe for you. Take aebz-qkz-bmkmhho and prescription medicines only as told by [...] 12/13/2012 Document Revised: 12/06/2018 Document Reviewed: 11/14/2018 [employer] Patient Education 2020 [employer]. 05/22/2022 08:35:59 Gastritis, Adult Gastritis, Adult Gastritis [...] medicines. These include steroids, antibiotics, and some hnjz-xcq-rfoayzx medicines, such as aspirin or ibuprofen. Having [...] Follow these instructions at home: Medicines Take kjng-vce-ldstckn and prescription medicines only as told by [...] 06/08/2002 Document Revised: 11/01/2018 Document Reviewed: 11/01/2018 [employer] Patient Education 2020 [employer]. 05/22/2022 08:35:59 Gluten-Free Diet for Celiac Disease, [...] have questions, talk with your diet and nutrition tech (registered dietitian) or your health care provider. [...] how a food is processed, ask the separating machine operator. What frazier words help to identify gluten? [...] popcorn, and hot cereals made from cornmeal. Caraway, rice, wild rice. Some rice noodles or meneses noodles. Arrowroot starch, corn bran, corn flour, corn germ, cornmeal, corn starch, potato flour, potato starch flour, and rice bran. Plain, brown, and sweet rice flours. Rice wolof, soy flour, and tapioca starch. Vegetables All [...] and lunch meats. Bread-containing products, such as [place] steak, croquettes, meatballs, and meatloaf. Most tuna [...] have questions, talk with your diet and nutrition tech (registered dietitian) or your health care provider. [...] 06/14/2006 Document Revised: 05/27/2018 Document Reviewed: 03/29/2017 [employer] Patient Education 2020 [employer]. 05/22/2022 08:35:59 Celiac Disease Celiac Disease Celiac [...] 06/14/2006 Document Revised: 11/02/2018 Document Reviewed: 11/02/2018 [employer] Patient Education 2020 [employer]. Follow Up Care 04/14/2022 12:39:34 With:Pandey DEVANTEYESSI Address: [facility] [address] [place] [address] Business (1) When: Unknown [facility] 04-15-2022 Evaluation note Encounter Date Diagnosis Assessment Notes Mar, Type 2 diabetes mellitus with hyperglycemia , without long-term current use of insulin (ICD-10 - E11.65) [employer] Other 09-14-2022 Evaluation note* Encounter Date Diagnosis Assessment Notes Treatment Notes Treatment Clinical Notes Feb, Type 2 diabetes mellitus with hyperglycemia, without long-term current use of insulin (ICD-10 - E11.65) Managing type 2 diabetes material was published 1. Controlled, a Type 2 diabetes with A1c of 6.8% 02/18/22 2. Blood glucose levels according to ravin 2 cgm 02/19/22-03/04/22: Avg glucose 103. >250-0%, [...] last visit, continue with weight loss efforts [employer] Other 08-24-2022 Evaluation note* Encounter Date Diagnosis [...] or diabetes medication issues. 6. Prescriptions: Uses Vaybee or RA Rubalcava. Sample ravin 2 cgm and ozempic 0.5mg pen given today. Sent rx for ravin 2 to [facility]. Pt is to notify office if tolerating ozempic after week 5 so prescription may be sent to [facility]. Jan, Hyperlipidemia, unspecified hyperlipidemia type (ICD-10 - [...] results and reduce risk of hypoglcyemia/hyper glycemia. [employer] Other Chidp complaint+Reason for visit Narrative* Chief Complaint no meter Reason for Visit Dietary counseling a nd surveillance Hyperlipidemia Type 2 diabetes mellitus [facility] Work Phone: Chiwe complaint+Reason for visit Narrative* Chief Complaint no meter Reason for Visit BMI 30.0-30.9,adult Dietary counseling and surveillance Hyperlipidemia Type 2 diabetes mellitus Type 2 diabetes mellitus [facility] Work Phone: Evaluation + Plan note Future Appointments Appointment Date:04/24/2022 11:00:00 AM Scheduled Provider: Location:.[facility] Appointment Type:CT Sinus/Orbits/Maxillofacial (FT) Appointment Date:05/22/2022 08:15:00 AM Scheduled Provider: Location:[facility] Appointment Type:Surgery FT Future Scheduled Tests Radiology* CT Maxillofacial w/o Contrast 04/24/22 [facility] Evaluation + Plan note Future Appointments Appointment Date:05/22/2022 08:15:00 AM Scheduled Provider: Location:[facility] Future Scheduled Tests Radiology* MRI Cholangiogram Pancreatography (mrcp) 06/05/[address] [address] [facility] Future Appointments Appointment Date:09/02/2022 09:00:00 AM Scheduled Provider:Dannie STARKS MD Location[place] Appointment Type:[facility] Follow Up Future Scheduled Tests Radiology* MRI Cholangiogram Pancreatography (mrcp) 06/05/22 [facility] Evaluation + Plan note Future Appointments Appointment Date:09/02/2022 09:00:00 AM Scheduled Provider:Dannie STARKS MD Location:[facility] Appointment Type:BAD [facility] Future Appointments Appointment Date:06/12/2024 08:00:00 AM Scheduled Provider: [facility] Appointment Type:NM Gastric Emptying Study () Appointment Date:07/28/2024 08:15:00 AM Scheduled Provider:Roseline Melendrez MD Location:[facility] Appointment Type:BAD Follow Up Future Scheduled Tests Laboratory* Antimitochondrial Antibody, Quantitative 06/02/24 * Alkaline Phosphatase Isoenzymes 06/02/24 * CBC w/ Auto Diff 06/02/24 * Comprehensive Metabolic Panel 06/02/24 Radiology* NM Gastric Emptying Study 06/12/24 [facility] Evaluation + Plan note Future Appointments Appointment Date:07/28/2024 08:15:00 AM Scheduled Provider:Roseline Melendrez MD Location:[facility] Appointment Type:[facility] Follow Up Future Scheduled Tests Laboratory* Antimitochondrial Antibody, Quantitative 06/02/24 * Alkaline Phosphatase Isoenzymes 06/02/24 * CBC w/ Auto Diff 06/02/24 * Comprehensive Metabolic Panel 06/02/[address] [facility] Evaluvgtyx noteNo InformationNort Focus IP Other Evsayyrumb noteNo assessment information available [facility] Work Phone: Evaluation note* Diagnosis OME (otitis media with effusion), left- Primary Conductive hearing loss of right ear with restricted hearing of left ear documented in this encounter [facility] Diagnosis Onset Date Resolution Status Dietary counseling and surveillance acute Hyperlipidemia acute Type 2 diabetes mellitus acu te [facility] Work Phone: Evaluation note* Diagnosis Onset Date Resolution Status BMI 30.0-30.9,adult acute Dietary counseling and surveillance acute Hyperlipidemia acute Type 2 diabetes mellitus acu te Type 2 diabetes mellitus acu te [facility] Work Phone: Evaluation note* Diagnosis Onset Date Resolution Status BMI 30.0-30.9,adult acute Dietary counseling and surveillance acute Hyperlipidemia acute Type 2 diabetes mellitus acu te Type 2 diabetes mellitus acu te BMI 30.0-30.9,adult acute Dietary counseling and surveillance acute Hyperlipidemia acute Type 2 diabetes mellitus acu te Hypoglycemia noneactive [facility] Work Phone: History general Narrative - Reported* [...] TARSAL METATARSAL Hospitalization History SEE ABOVE SURGERY [facility] [employer] Other Hospital course Narrative No data available for this section [facility] Hospital Discharge instructions No data available for this section [facility] Progress note No data available for this section [facility] Reason for visit NarrativeSelf Referral, New patient Type 2 NIDDM 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, 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, [facility] [employer] Other Summary Purpose Family History No Family History Records Found Relationship Condition Age at Onset Recorded Date/T christian brother Diabetes mellitus Unknown father Chronic obstructive pulmonary disease Unk nown family member Unknown grandparent Diabetes mellitus Unknown Unknown grandparent Unknown mother Heart disease Unknown Diabetes mellitus Unknown Hypertension Unknown Advance Directives No Advanced Directives Records Found Advance Directive Response Recorded Date/ Time Advance [...] effects, Type 2 NIDDM 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 DATE CREATED AUTHOR AUTHOR'S ORGANIZ ATION [facility] DATE CREATED AUTHOR AUTHOR'S ORGANIZ ATION 01/15/2024 [facility] EPIC DATE CREATED AUTHOR AUTHOR'S ORGANIZ ATION 08/19/2024 [facility] Patient Care team informatio n (unrecognized section and content) [employer] Field Technician Relationship Specialty Start Date End Date Kaitlyn Downing MD [address] [place] [address] PCP - General Family Medicine 05/03/23 [employer] Field Technician Relationship Specialty Start Date End Date Kaitlyn Downing MD [address] [place] [address] PCP - General Family Medicine 05/03/23 Team Status: Active Member Role Status [...] 2024 End: March 09, 2024 Dewey Davidson , RETORT FIREMAN Active Start: March 09, 2024 End: March [...] BE BASED ON THE PRIMARY CLINICAL RECORDS. [facility]. provides no warranty or guarantee of the accuracy or completeness of information in this document.
[2024-09-07 12:39] LABS: Estimated Average Glucose 154 mg/dL
[2024-09-07 12:54] LABS: Basophils Percent Auto 0.7 % (0.2-2.0); Eosinophils Absolute Auto 0.1 10^3/uL (0.0-0.7); Eosinophils Percent Auto 2.1 % (0.9-7.0); Hematocrit 33.4 % (36.0-48.0); Hemoglobin 11.4 g/dL (12.0-16.0); Immature Granulocytes Pct Auto 2.3 % (0.0-0.5); Lymphocytes Absolute Auto 1.1 10^3/uL (1.2-3.8); Lymphocytes Percent Auto 26.3 % (20.5-60.0); Mean Corpuscular HGB Conc 34.1 g/dL (29.9-35.2); Mean Corpuscular Hemoglobin 42.1 pg (26.7-34.0); Mean Corpuscular Volume 123.2 fL (81.0-99.0); Mean Platelet Volume 10.5 fL (9.5-13.5); Monocytes Absolute Auto 0.2 10^3/uL (0.3-0.8); Monocytes Percent Auto 4.2 % (1.7-12.0); Neutrophils Absolute Auto 2.8 10^3/uL (1.4-6.5); Neutrophils Percent Auto 64.4 % (43.0-75.0); Platelet Count 112 10^3/uL (150-450); Red Blood Count 2.71 10^6/uL (4.20-5.40); Red Cell Distribution Width 17.1 % (11.0-15.0); White Blood Count 4.3 10^3/uL (4.0-11.0)
[2024-09-07 12:58] LABS: Erythrocyte Sedimentation Rate 3 mm/hr (<=30)
[2024-09-07 13:06] LABS: Alanine Aminotransferase 31 U/L (14-59); Albumin Globulin Ratio 1.4; Albumin Level 3.8 g/dL (3.4-5.0); Alkaline Phosphatase 105 U/L (46-116); Anion Gap 10.3; Aspartate Amino Transferase 35 U/L (15-37); BUN Creatinine Ratio 17.7; Bilirubin Total 1.2 mg/dL (0.2-1.0); Calcium 8.9 mg/dL (8.5-10.1); Chloride 109 mmol/L (98-107); Chol HDL Ratio 4.5; Cholesterol 141 mg/dL (<=200); Estimated GFR (African America >60 (>=60 mL/min/1.73m^2); Estimated GFR (Non-African Ame >60 (>=60 mL/min/1.73m^2); Free T3 1.62 pg/mL (2.18-3.98); Globulin 2.7 g/dL; Glucose 103 mg/dL (74-106); HDL Cholesterol 31 mg/dL (40-60); Potassium 4.3 mmol/L (3.5-5.1); Sodium 146 mmol/L (136-145); Thyroid Stimulating Hormone 17.412 uIU/mL (0.358-3.740); Total Protein 6.5 g/dL (6.4-8.2); Triglycerides 154 mg/dL (<=150); VLDL CHOLESTEROL 30.8 mg/dL
== END 2024-09-07 11:56 | disposition home or self-care (01) ==
LOC: LAB 11:55
PROVIDERS: PCP Family Medicine; Visit Provider Family Medicine
DX: R00.2 Palpitations (principal); K21.9 Gastro-esophageal reflux disease without esophagitis; E03.9 Hypothyroidism, unspecified; M25.50 Pain in unspecified joint; R73.09 Other abnormal glucose; E55.9 Vitamin D deficiency, unspecified
CPT/HCPCS: 36415; 80053; 80061; 82306; 83036; 83540; 83880; 84436; 84443; 84481; 85025; 85652

== ENCOUNTER 2024-10-10 12:14 | Outpatient (OUT) | payer OTHER, SELFPAY ==
[2024-10-10 12:38] LABS: Basophils Percent Auto 0.5 % (0.2-2.0); Eosinophils Percent Auto 0.8 % (0.9-7.0); Hematocrit 24.8 % (36.0-48.0); Hemoglobin 8.6 g/dL (12.0-16.0); Immature Granulocytes Abs Auto 0.06 10^3/uL (0.00-0.03); Immature Granulocytes Pct Auto 1.5 % (0.0-0.5); Lymphocytes Absolute Auto 1.1 10^3/uL (1.2-3.8); Lymphocytes Percent Auto 27.3 % (20.5-60.0); Mean Corpuscular HGB Conc 34.7 g/dL (29.9-35.2); Mean Corpuscular Hemoglobin 42.6 pg (26.7-34.0); Monocytes Absolute Auto 0.1 10^3/uL (0.3-0.8); Monocytes Percent Auto 2.6 % (1.7-12.0); Neutrophils Absolute Auto 2.6 10^3/uL (1.4-6.5); Neutrophils Percent Auto 67.3 % (43.0-75.0); Platelet Count 73 10^3/uL (150-450); Red Blood Count 2.02 10^6/uL (4.20-5.40); Red Cell Distribution Width 13.2 % (11.0-15.0); White Blood Count 3.9 10^3/uL (4.0-11.0)
[2024-10-10 12:57] LABS: Alanine Aminotransferase 37 U/L (14-59); Albumin Globulin Ratio 1.4; Albumin Level 3.8 g/dL (3.4-5.0); Alkaline Phosphatase 83 U/L (46-116); Anion Gap 14.2; Aspartate Amino Transferase 61 U/L (15-37); BUN Creatinine Ratio 21.1; Bilirubin Total 1.2 mg/dL (0.2-1.0); Calcium 8.9 mg/dL (8.5-10.1); Carbon Dioxide 28.7 mmol/L (21.0-32.0); Chloride 105 mmol/L (98-107); Estimated GFR (African America >60 (>=60 mL/min/1.73m^2); Estimated GFR (Non-African Ame >60 (>=60 mL/min/1.73m^2); Globulin 2.7 g/dL; Glucose 95 mg/dL (74-106); Potassium 3.9 mmol/L (3.5-5.1); Sodium 144 mmol/L (136-145); Total Protein 6.5 g/dL (6.4-8.2)
[2024-10-10 13:00] LABS: Mean Corpuscular Volume 122.8 fL (81.0-99.0)
== END 2024-10-10 12:15 | disposition home or self-care (01) ==
LOC: LAB 12:14
PROVIDERS: PCP Family Medicine; Visit Provider Internal Medicine
DX: R68.81 Early satiety (principal); R74.8 Abnormal levels of other serum enzymes; R10.13 Epigastric pain; R10.9 Unspecified abdominal pain; R11.0 Nausea; K57.92 Diverticulitis of intestine, part unspecified, without perforation or abscess without bleeding; Z90.49 Acquired absence of other specified parts of digestive tract; Z87.19 Personal history of other diseases of the digestive system
CPT/HCPCS: 36415; 80053; 84080; 85025; 86381

== ENCOUNTER 2024-11-07 09:34 | Inpatient (IN) | payer OTHER, SELFPAY ==
[2024-11-07] VITALS (37 sets, daily range): BP systolic 71–114; BP diastolic 45–67; PULSE 72–93; TEMP 36.8–36.9; O2SAT 85–100; BMI 28.3; BMI 26.3
--- NOTE | 2024-11-07 09:45 | ECG_ITS ---
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 Measurements Intervals [place] Rate: 80 P: 61 MO: 132 QRS: 16 QRSD: 86 T: 38 QT: 404 QTc: 440 Interpretive Statements 1100 Sinus rhythm 8102 Low QRS voltage in chest leads Abnormal ECG No previous ECG available for comparison Electronically Signed On 11-07-2024 17:53:39 EDT by GONZALEZ BEVERLY M.D.
--- NOTE | 2024-11-07 09:46 | ED.GENADUL1 ---
HPI HPI - General Adult General Chief complaint: Syncope Stated complaint: WEAKVONNIE,SYNCOPAL EPISODE Time Seen by Provider: 11/07/24 09:37 History of Present Illness HPI narrative: 59-year-old female presents to the emergency for syncopal episode. She was apparently sitting in her wheelchair when she passed out. She did not fall but may have slid out of the wheelchair. There was no injury. She was reportedly coming to the hospital today for some outpatient blood test because she has been feeling weak for a few weeks. The patient is confused and is unable to give an accurate history. Related Data Home Medications ?Medication ?Instructions ?Recorded ?Confirmed citalopram 20 mg tablet 20 mg PO DAILY 11/07/24 11/07/24 clonazepam 2 mg tablet 2 mg PO Q12H 11/07/24 11/07/24 esomeprazole magnesium 40 mg 40 mg PO Q24H 11/07/24 11/07/24 capsule,delayed release insulin glargine-yfgn 100 unit/mL 20 unit subcut DAILY 11/07/24 11/07/24 (3 mL) subcutaneous pen (Semglee (insulin glargine-yfgn) Pen) levothyroxine 125 mcg tablet 125 mcg PO DAILY 11/07/24 11/07/24 (Levo-T) liothyronine 5 mcg tablet 5 mcg PO DAILY 11/07/24 11/07/24 pantoprazole 40 mg tablet,delayed 80 mg PO DAILY 11/07/24 11/07/24 release rosuvastatin 5 mg tablet 5 mg PO DAILY 11/07/24 11/07/24 sucralfate 100 mg/mL oral 10 ml PO Q6H 11/07/24 11/07/24 suspension Allergies Allergy/AdvReac Type Severity Reaction Status Date / Time Sulfa (Sulfonamide Allergy Unknown Unknown Verified 11/07/24 10:00 Antibiotics) Review of Systems ROS Narrative Not obtainable, not oriented Exam Narrative Exam Narrative: Nurses note and vital signs reviewed and patient is not hypoxic. General: The patient appears in no acute respiratory distress. Skin: Warm, dry, pallor noted. There is no rash noted. Head: Normocephalic, atraumatic Eye: Conjunctiva are pale Ears, Nose, Mouth, and Throat: oral mucosa is moist. Nares patent. Cardiovascular: Regular Rate and Rhythm Respiratory: Patient is in no distress, no accessory muscle use, lungs are clear to auscultation, no wheezing, rales or rhonchi Back: non-tender GI: Soft and nontender and nondistended. Musculoskeletal: The patient has no evidence of calf tenderness, no pitting edema, symmetrical pulses noted bilaterally Neurological: She is awake and alert. She is able to tell me her name but cannot tell me the year or where she is or why she is here. Psychiatric: Cooperative Constitutional Vital Signs, click to edit/add: Last Vital Signs Temp 98.3 F 11/07/24 09:40 Pulse 74 11/07/24 11:10 Resp 22 H 11/07/24 11:10 BP 89/58 11/07/24 11:01 Pulse Ox 100 11/07/24 11:10 O2 Del Method Room Air 11/07/24 10:46 Course Vital Signs Vital signs: Vital Signs Pulse Rate 80 11/07/24 09:39 Respiratory Rate 22 H 11/07/24 09:39 Temperature 98.3 F 11/07/24 09:40 Pulse Rate 74 11/07/24 11:10 Respiratory Rate 22 H 11/07/24 11:10 Blood Pressure 89/58 11/07/24 11:01 Pulse Oximetry 100 11/07/24 11:10 Oxygen Delivery Method Room Air 11/07/24 10:46 Medical Decision Making [facility] Narrative Medical decision making narrative: Her workup indicates a hemoglobin of 5.4 with heme-negative stool. The rest of her workup is essentially negative with ammonia level pending. Abdominal CT shows no acute abnormality in the CT brain also shows no acute intracranial abnormality. Case discussed with Dr. Downing and the patient will be admitted. Blood is ordered for transfusion. Differential Diagnosis Differential Diagnosis: Anemia, GI bleed, altered mental status Lab Data Lab results reviewed: Yes I reviewed the patient's lab results Labs: Lab Results 11/07/24 11/07/24 11/07/24 Range/Units 09:55 10:04 10:38 WBC 2.2 L (4.0-11.0) 10^3/uL RBC 1.26 L (4.20-5.40) 10^6/uL Hgb 5.3 L* (12.0-16.0) g/dL Hct 15.6 L* (36.0-48.0) % MCV 123.8 H (81.0-99.0) fL MCH 42.1 H (26.7-34.0) pg MCHC 34.0 (29.9-35.2) g/dL RDW 13.3 (11.0-15.0) % Plt Count 31 L (150-450) 10^3/uL MPV 12.2 (9.5-13.5) fL Neut % (Auto) Not Reportable Lymph % (Auto) Not Reportable [place] % (Auto) Not Reportable Eos % (Auto) Not Reportable Baso % (Auto) Not Reportable Neut # (Auto) Not Reportable Lymph # (Auto) Not Reportable [place] # (Auto) Not Reportable Eos # (Auto) Not Reportable Baso # (Auto) Not Reportable Abs Immat Gran (auto) Not Reportable Seg Neuts % (Manual) 56.0 (43.0-75.0) Lymphocytes % (Manual) 42.0 (20.5-60.0) % Monocytes % (Manual) 2.0 (1.7-12.0) % Eosinophils % (Manual) 0.0 L (0.9-7.0) % Basophils % (Manual) 0.0 L (0.2-2.0) % Imm/Tot Granulo (auto) Not Reportable Neutrophils # (Manual) 1.23 L (1.4-6.5) 10^3/uL Lymphocytes # (Manual) 0.92 L (1.20-3.80) 10^3/uL Monocytes # (Manual) 0.04 L (0.30-0.80) 10^3/uL Eosinophils # (Manual) 0.00 (0.00-0.70) 10^3/uL Basophils # (Manual) 0.00 (0.00-0.10) 10^3/uL Macrocytosis 2+ PT 13.7 H (9.0-11.6) sec INR 1.33 APTT 25.3 (22.3-36.2) sec Sodium 144 (136-145) mmol/L Potassium 2.7 L* (3.5-5.1) mmol/L Chloride 106 (98-107) mmol/L Carbon Dioxide 27.2 (21.0-32.0) mmol/L Anion Gap 13.5 BUN 28.0 H (7.0-18.0) mg/dL Creatinine 0.81 (0.55-1.02) mg/dL Est GFR ( Amer) >60 (>=60 mL/min/1.73m^2) Est GFR (Non-Af Amer) >60 (>=60 mL/min/1.73m^2) BUN/Creatinine Ratio 34.6 Glucose 109 H (74-106) mg/dL Calcium 8.3 L (8.5-10.1) mg/dL Total Bilirubin 1.7 H (0.2-1.0) mg/dL Direct Bilirubin 0.4 H (0.0-0.2) mg/dL AST 122 H (15-37) U/L ALT 30 (14-59) U/L Alkaline Phosphatase 98 (46-116) U/L Troponin I High Sens 4.2 (4.0-51.3) pg/mL Total Protein 5.7 L (6.4-8.2) g/dL Albumin 3.3 L (3.4-5.0) g/dL Globulin 2.4 g/dL Albumin/Globulin Ratio 1.4 Urine Color Yellow (YELLOW) Urine Clarity Cloudy A (CLEAR) Urine pH 6.0 (5.0-9.0) Ur Specific [place] 1.025 (1.005-1.025) Urine Protein 100 A (NEG/TRACE) mg/dL Urine Glucose (UA) Negative (NEGATIVE) mg/dL Urine Ketones Negative (NEGATIVE) mg/dL Urine Occult Blood Small A (NEGATIVE) Urine Nitrite Negative (NEGATIVE) Urine Bilirubin Small A (NEGATIVE) Urine Urobilinogen 2.0 A (0.2-1.0) EU/dL Ur Leukocyte Esterase Trace A (NEGATIVE) Urine RBC 2-5 A (0-2) #/HPF Urine WBC 5-10 A (NONE SEEN) #/HPF Ur Squamous Epith Cells Few A (NONE/RARE) #/LPF Urine Crystals None seen (None Seen) #/HPF Urine Bacteria Large A (NONE SEEN) #/HPF Urine Casts None seen (NONE SEEN) #/LPF Urine Mucus None seen (NONE SEEN) Ur Culture Indicated? Yes-[facility] Stool Occult Blood Negative Blood Type O Positive Antibody Screen Positive Imaging Data Chest x-ray: Radiologist's impression: No acute process CT brain, chest x-ray, CT abdomen: Radiologist's impression: CT brain: No acute intracranial abnormality CT abdomen: No acute abnormality Chest x-ray: No acute process ECG Data Attestation: I personally reviewed and interpreted this ECG as follows: (EKG on my interpretation shows sinus rhythm with rate of 80 and no acute change) Discharge Plan Discharge Chief Complaint: Syncope Clinical Impression: Anemia Patient Disposition: Admitted As Inpatient Time of Disposition Decision: 12:08 Condition: Fair
[2024-11-07] MEDS: 0.9 % SODIUM CHLORIDE 1,000 ML 1000 ML IV ×2 (10:00→10:46)
--- NOTE | 2024-11-07 10:08 | PC.NURSE ---
pt was sitting in rollator chair with next to her and had a syncopal episode. Pt was lowered to floor by no injuries. per pt , pt has been altered for approx 6 weeks and has been dealing with abd pain issues. has been seeing a Dr in [place] and has gotten some abd scans. unable to remember results. Pt has no complaints at this time. Pt had incontinent episode during syncope - this RN and other RN complleted skin care in room and linens were changed.
[2024-11-07 10:12] LABS: Internal Control Within Normal Limits; Occult Blood Negative
[2024-11-07 10:16] LABS: Mean Corpuscular Hemoglobin 42.1 pg (26.7-34.0); Mean Corpuscular Volume 123.8 fL (81.0-99.0); Mean Platelet Volume 12.2 fL (9.5-13.5); Platelet Count 31 10^3/uL (150-450); Red Blood Count 1.26 10^6/uL (4.20-5.40); Red Cell Distribution Width 13.3 % (11.0-15.0); White Blood Count 2.2 10^3/uL (4.0-11.0)
[2024-11-07 10:18] LABS: Hematocrit 15.6 % (36.0-48.0); Hemoglobin 5.3 g/dL (12.0-16.0)
[2024-11-07 10:27] LABS: Alanine Aminotransferase 30 U/L (14-59); Albumin Globulin Ratio 1.4; Albumin Level 3.3 g/dL (3.4-5.0); Alkaline Phosphatase 98 U/L (46-116); Aspartate Amino Transferase 122 U/L (15-37); Bilirubin Direct 0.4 mg/dL (0.0-0.2); Bilirubin Total 1.7 mg/dL (0.2-1.0); Globulin 2.4 g/dL; Total Protein 5.7 g/dL (6.4-8.2)
[2024-11-07 10:30] LABS: INR 1.33; Partial Thromboplastin Time 25.3 sec (22.3-36.2); Prothrombin Time 13.7 sec (9.0-11.6)
[2024-11-07 10:31] LABS: Anion Gap 13.5; BUN Creatinine Ratio 34.6; Calcium 8.3 mg/dL (8.5-10.1); Carbon Dioxide 27.2 mmol/L (21.0-32.0); Chloride 106 mmol/L (98-107); Estimated GFR (African America >60 (>=60 mL/min/1.73m^2); Estimated GFR (Non-African Ame >60 (>=60 mL/min/1.73m^2); Glucose 109 mg/dL (74-106); Sodium 144 mmol/L (136-145); Troponin I High Sensitivity 4.2 pg/mL (4.0-51.3)
[2024-11-07 10:35] LABS: Potassium 2.7 mmol/L (3.5-5.1)
--- NOTE | 2024-11-07 10:54 | PC.NURSE ---
1040 - assisted pt onto bedpan at this time, urine sample collected
[2024-11-07 10:57] LABS: Lymphocytes Absolute Manual 0.92 10^3/uL (1.20-3.80); Monocytes Absolute Manual 0.04 10^3/uL (0.30-0.80); Segmented Neut Absolute Manual 1.23 10^3/uL (1.4-6.5)
[2024-11-07 11:05] LABS: Bilirubin Urine SMALL (NEGATIVE); Blood Urine SMALL (NEGATIVE); Clarity Urine CLOUDY (CLEAR); Color Urine YELLOW (YELLOW); Glucose Urine UA NEGATIVE (NEGATIVE); Ketones Urine NEGATIVE (NEGATIVE); Leukocyte Esterase Urine TRACE (NEGATIVE); Nitrite Urine NEGATIVE (NEGATIVE); Protein Urine 100 mg/dL (NEG/TRACE); Specific Gravity Urine 1.025 (1.005-1.025)
[2024-11-07 11:10] LABS: Macrocytosis 2+
[2024-11-07 11:21] LABS: Bacteria Urine LARGE #/HPF (NONE SEEN); Squamous Epithelial Cell Urine FEW #/LPF (NONE/RARE)
[2024-11-07 11:22] LABS: Cast Seen? NONE SEEN #/LPF (NONE SEEN); Crystals Seen? None Seen #/HPF (None Seen); Mucus Urine NONE SEEN (NONE SEEN); Urine Culture Indicated YES-FRMC
[2024-11-07 12:21] LABS: Ammonia 16 umol/L (11-32)
--- NOTE | 2024-11-07 13:01 | P.HP_ITS ---
HPI H&P: HPI History of Present Illness Chief complaint: WEAKNES,SYNCOPAL EPISODE, ANEMIA Narrative: Pt seen in office with increasing weakness looked pale unable to get labs done last night - more confusing over night so brought to ER - in ER found hgb <6, plt <40, WBC <3 When i saw patient in ER resting comfortabley in bed, says confusion is better, no other complaints from patient Review of Systems ROS Status of ROS 10 or more systems reviewed and unremark able except as noted in history and below [facility] Medical History (Updated 11/07/24 @ 13:20 by Henrik Downing MD) Diabetes ?E11.9 - Type 2 diabetes mellitus without complications (ICD-10) Hypotension ?I95.9 - Hypotension, unspecified (ICD-10) Cirrhosis ?K74.60 - Unspecified cirrhosis of liver (ICD-10) Enlarged liver ?R16.0 - Hepatomegaly, not elsewhere classified (ICD-10) Panic attack ?F41.0 - Panic disorder [episodic paroxysmal anxiety] (ICD-10) Anxiety ?F41.9 - Anxiety disorder, unspecified (ICD-10) Surgical History (Updated 11/07/24 @ 13:11 by Tereza Tavera) Hx of tonsillectomy ?Z90.89 - Acquired absence of other organs (ICD-10) History of foot surgery ?Z98.890 - Other specified postprocedural states (ICD-10) Hx of appendectomy ?Z90.49 - Acquired absence of other specified parts of digestive tract (ICD- 10) History of hysterectomy ?Z90.710 - Acquired absence of both cervix and uterus (ICD-10) History of cholecystectomy ?Z90.49 - Acquired absence of other specified parts of digestive tract (ICD- 10) Family History (Updated 11/07/24 @ 13:12 by Tereza Tavera) Father Family history of COPD (chronic obstructive pulmonary disease) Mother Family history of COPD (chronic obstructive pulmonary disease) Family history of diabetes mellitus Brother Family history of cancer Family history of diabetes mellitus Family history of hypertension Grandmother Family history of stroke Social History (Updated 11/07/24 @ 13:13 by Tereza Tavera) Within the past year, how often did you have a drink containing alcohol: never Within the past year, how often did you have six or more drinks on one occasion: never Score interpretation: A score less than 3 is consistent with normal alcohol consumption. Smoking status: Current every day smoker Non-prescribed substance use: denies use Previous occupational history: retired Highest level of school completed/degree received: high school graduate Are you now , , , , never or living with a partner: In a typical week, how many times do you talk on the telephone with family, friends, or neighbors: 3 or more times per week How often do you get together with friends or relatives: 3 or more times per week How often do you attend baptism or latter day services: 4 or more times per year Do you belong to any clubs or organizations such as baptism groups unions, [employer] or athletic groups, or school groups: no Total score: 3 Score interpretation: A score of greater than or equal to 2 indicates the lowest level of social isolation. Little interest or pleasure in doing things: not at all Feeling down, depressed, or hopeless: not at all Feel stressed/tense/nervous/anxious/difficulty sleeping: not at all Do you think of yourself as: straight/heterosexual Gender Identity: female Meds Home Medications and Allergies Home Medications ?Medication ?Instructions ?Recorded ?Confirmed ?Type citalopram 20 mg tablet 20 mg PO DAILY 11/07/2410/26 History clonazepam 2 mg tablet 2 mg PO Q12H 11/07/24 History esomeprazole magnesium 40 mg 40 mg PO Q24H 11/07/24 History capsule,delayed release insulin glargine-yfgn 100 unit/mL 20 unit subcut DAILY 11/07/24 11/07/24 History (3 mL) subcutaneous pen (Semglee (insulin glargine-yfgn) Pen) levothyroxine 125 mcg tablet 125 mcg PO DAILY 11/07/24 11/07/24 History (Levo-T) liothyronine 5 mcg tablet 5 mcg PO DAILY 11/07/2410/26 History rosuvastatin 5 mg tablet 5 mg PO DAILY 11/07/2411/07 History sucralfate 100 mg/mL oral 10 ml PO Q6H 11/07/24 History suspension Allergies Allergy/AdvReac Type Severity Reaction Status Date / Time Sulfa (Sulfonamide Allergy Unknown Unknown Verified 11/07/24 10:00 Antibiotics) Exam Constitutional Vital Signs, click to edit/add: Last Vital Signs Temp 98.3 F 11/07/24 09:40 Pulse 75 11/07/24 12:30 Resp 19 11/07/24 12:30 BP 103/67 11/07/24 12:30 Pulse Ox 100 11/07/24 12:30 O2 Del Method Room Air 11/07/24 10:46 Documenting provider has reviewed patient's vital signs: yes Common normals: no apparent distress Respiratory Common normals: normal respiratory effort Cardio Common normals: regular rate, regular rhythm and no murmurs GI Common normals: Normal to inspection, nondistended, normoactive bowel sounds present and soft to palpation; tender (epigastric tenderness) Results Labs Labs: Short CBC 11/07/24 Range/Units 10:04 WBC 2.2 L (4.0-11.0) 10^3/uL Hgb 5.3 L* (12.0-16.0) g/dL Hct 15.6 L* (36.0-48.0) % Plt Count 31 L (150-450) 10^3/uL BMP 11/07/24 10:04 Sodium 144 Potassium 2.7 L* Chloride 106 Carbon Dioxide 27.2 BUN 28.0 H Creatinine 0.81 Glucose 109 H Calcium 8.3 L Liver Function 11/07/24 Range/Units 10:04 Total Bilirubin 1.7 H (0.2-1.0) mg/dL Direct Bilirubin 0.4 H (0.0-0.2) mg/dL AST 122 H (15-37) U/L ALT 30 (14-59) U/L Alkaline Phosphatase 98 (46-116) U/L Albumin 3.3 L (3.4-5.0) g/dL Urine 11/07/24 Range/Units 10:38 Urine Color Yellow (YELLOW) Urine Clarity Cloudy A (CLEAR) Urine pH 6.0 (5.0-9.0) Ur Specific [place] 1.025 (1.005-1.025) Urine Protein 100 A (NEG/TRACE) mg/dL Urine Glucose (UA) Negative (NEGATIVE) mg/dL Assessment and Plan Assessment and Plan (1) Anemia: (2) Diabetes: (3) Hypotension: (4) Cirrhosis: (5) Enlarged liver: (6) Neutropenia: (7) Thrombocytopenia: (8) Hypokalemia: (9) Acute UTI: (10) Coagulopathy: Plan admission finding: severe anemia, neutropenia, thrombocytopenia, hypokalmeia Severe anemia - recent endocopy negative, on PPI, hemoccult neg - type cross and transfuse 2 U - repeat cbc Thrombocytopenia - consult to oncology Neutropenia - consult ot oncology Cirrhosis with coagulopathy -= Vit k - may need FFP but no obvious active bleeding - recent endocscopy without esop[hageal varices Hypokalemia - supplement Hypotension (71/53) - likely related to anemia DM - insulin sliding scale Acute UTI - IV AB due to not sure her ability to absorb orally Admission status: Neutropenia, thrombocytopenia. sever anemia, with coagul opathy related to cirrhosis - medically neccessary treatment will span 2 midnights - inpatient status
--- NOTE | 2024-11-07 13:16 | CA_ITS ---
Patient Name: JOSE THOMAS MR#: [id number] : 1965 Exam Date: 11/07/2024 Ordering Doctor: DR KAITLYN JOY . ECHOCARDIOGRAM REPORT PROCEDURE: CA ECHO DOPPLER COMPLETE INDICATIONS: dyspnea, AMS COMPARISON: None. DESCRIPTION: COMPLETE ECHOCARDIOGRAM Real-time transthoracic echocardiography with 2D, M-mode, spectral and color flow Doppler performed. QUALITY: Technical quality was good. LEFT VENTRICLE: Normal chamber size. Normal left ventricular wall thickness. LV EF: Global left ventricular systolic function is hyperdynamic; visually estimated ejection fraction is 65 to 70%. No regional wall motion abnormalities. DIASTOLIC: Normal diastolic function. ATRIAL SEPTUM: Inadequately seen. LEFT ATRIUM: Normal chamber size. RIGHT ATRIUM: Normal chamber size. RIGHT VENTRICLE: Appears enlarged. Normal right ventricular systolic function. TRICUSPID VALVE: Normal mobility and thickness. Mild regurgitation. Doppler studies reveal mildly (35-45) elevated right sided pressures. RVSP 43 mmHg MITRAL VALVE: Normal mobility and thickness. No evidence of mitral valve stenosis. There is no mitral annular calcification. No mitral regurgitation. AORTIC VALVE: Normal trileaflet appearance. No visible sclerosis. Normal leaflet mobility. No evidence of aortic valve stenosis. No aortic regurgitation. AORTIC ROOT: Normal diameter and appearance. Ascending aorta is normal in size. PULMONIC VALVE: Normal thickness and mobility. No stenosis. No regurgitation. PERICARDIUM: Anterior free space; trivial effusion versus fat pad. IVC: IVC is normal in size, does not fully collapse. CONCLUSION: 1. Global left ventricular systolic function is hyperdynamic; visually estimated ejection fraction is 65 to 70% 2. The right ventricle appears enlarged with preserved systolic function 3. Normal diastolic function 4. The left atrium is normal in size 5. Mild tricuspid regurgitation 6. Mildly elevated right ventricular systolic pressure; RVSP 43 mmHg 7. Anterior free space; trivial effusion versus fat pad Adult Echocardiography Procedure Report Left Ventricle LVEDD (3.7 - 5.6 cm): 4.32 cm LVESD (2.2 - 4.0 cm): 2.58 cm LVIVS thickness (0.6 - 1.2 cm): 1.01 cm LVPW thickness (0.5 - 1.0 cm): 0.98 cm e': 0.10 m/s E - e': 11.10 LVOT Max Gradient: 7.52 mm[Hg], 7.91 mm[Hg] LVOT Area (cm2): 1.41 m/s, 1.37 m/s Peak Velocity (LVOT): 1.41 m/s, 1.37 m/s Mean Velocity (LVOT): 0.88 m/s LVOT Diameter 1.84 cm Left Atrium LA Volume Index (2D A2C): 30.38 ml/m2 Left Atrium Systolic Dimension: 4.57 cm Mitral Valve MV E to A Ratio: 0.94 Mitral Valve A-Wave Peak Velocity: 1.14 m/s Mitral Valve E-Wave Peak Velocity: 1.07 m/s Right Ventricle Aorta AO Root Diam: 3.01 cm Ascending Ao Diam: 2.87 cm Aortic Valve AoV Area (Peak Carlos A): 1.67 cm2, 1.67 cm2, 1.63 cm2, 1.63 cm2 AoV Area (VTI): 1.86 cm2, 1.86 cm2 Peak Velocity(Antegrade Flow): 2.23 m/s Peak Gradient(Antegrade Flow): 19.94 mm[Hg] Mean Velocity(Antegrade Flow): 1.31 m/s Mean Gradient(Antegrade Flow): 8.58 mm[Hg] Velocity Time Integral: 43.15 cm Tricuspid Valve Peak Velocity (Regurgitant Flow): 3.21 m/s, 2.96 m/s Pulmonic Valve Mean Gradient: 4.15 mm[Hg] Mean Velocity: 0.96 m/s Peak Velocity: 1.31 m/s, 1.20 m/s Peak Gradient: 6.88 mm[Hg], 5.80 mm[Hg] Right Atrium Right Atrium Systolic Pressure: 40.94 ml, 40.94 ml Dictated by: Sendy Sanabria M.D. on 11/08/2024 at 11:45 Approved by: Sendy Sanabria M.D. on 11/08/2024 at 11:48
[2024-11-07 13:52] LABS: PCO2 VBG 41.9 mmHg (40.0-52.0)
[2024-11-07 14:00] LABS: Free T3 1.85 pg/mL (2.18-3.98); Lactate Dehydrogenase 5257 U/L (81-234); Magnesium 1.9 mg/dL (1.8-2.4); Thyroid Stimulating Hormone 0.052 uIU/mL (0.358-3.740)
[2024-11-07 14:00] LABS: Lactate/Lactic Acid 0.9 mmol/L (0.4-2.0)
[2024-11-07 14:13] LABS: Fibrinogen 275 mg/dL (200-400)
[2024-11-07] MEDS: POTASSIUM CHLORIDE 40 MEQ in 0.9 % SODIUM CHLORIDE 250 ML 54 MEQ IV (14:37)
[2024-11-07] MEDS: PHYTONADIONE (VIT K1) 10 MG/ML AMPUL 5 MG PO (14:38)
[2024-11-07] MEDS: CEFTRIAXONE 1,000 MG in 0.9 % SODIUM CHLORIDE 50 ML 100 MG IV (14:38)
[2024-11-07] MEDS: LEVOFLOXACIN IN DEXTROSE 5 % 750 MG/150 ML PREMIX 100 MG IV (15:30)
[2024-11-07] MEDS: PANTOPRAZOLE SODIUM 40 MG VIAL IV ×2 (15:38→20:54)
--- NOTE | 2024-11-07 19:32 | PM.CN ---
Consult Note: HPI Data of Consult Requesting Physician: Henrik Downing MD Primary Care Provider: Henrik Downing MD Consult Narrative Reason for consult: anemia, thrombocytopenia, high LDH Narrative: 59 y/o female who follows with Dr Downing from primary care. We are consulted for anemia, thrombocytopenia, very high LDH. She was recently admitted to [facility] for abd pain and elevated LFTs. She was admitted for liver workup which was reportedly negative. She has had nausea, abd distension. She does have CT a/p on file showing no acute pathology, organomegaly, or hepatosplenomegaly. She has had AMS for the past 4-6 weeks per family at the bedside. She has had episode of syncope. She was admitted to [facility] for further evaluation. Work-up has shown WBC 2.2, Hgb 5.3, MCV 123, plt 31K. On 10/10, diff was WNL. Differential from 11/07/2024 is listed as not reportable, but manual performed shows diff is WNL. She has been informed that she has antibodies in her blood. She is awaiting [place] evaluation for T+S. She does have orders for PRBC transfusion. Her fibrinogen is 275. Bili is elevated at 1.7. LDH is 5257. Her med list was reviewed and is notable for Abx for UTI. She is on PPI. I discussed retic count, haptoglobin, direct antonella / CHARLIE, B12, folic acid, iron studies, flow cytometry. I have added ADAMTS-13 level. I have added peripheral smear to ensure no schistocytes or fragmented RBC. If she has signs of hemolysis and specifically schistocytes, she would need to be transferred for plasma exchange. In the interim, I will start prednisone 80 mg daily, and await peripheral smear review. ECOG PS 3. cc:: CC: Henrik Downing MD Review of Systems ROS Narrative A detailed 12 point review of systems was conducted and negative other than that reported in the history of present illness. [facility] Medical History (Updated 11/07/24 @ 19:43 by Margo Schwartz MD) Diabetes ?E11.9 - Type 2 diabetes mellitus without complications (ICD-10) Hypotension ?I95.9 - Hypotension, unspecified (ICD-10) Cirrhosis ?K74.60 - Unspecified cirrhosis of liver (ICD-10) Enlarged liver ?R16.0 - Hepatomegaly, not elsewhere classified (ICD-10) Panic attack ?F41.0 - Panic disorder [episodic paroxysmal anxiety] (ICD-10) Anxiety ?F41.9 - Anxiety disorder, unspecified (ICD-10) Surgical History (Updated 11/07/24 @ 13:11 by Tereza Tavera) Hx of tonsillectomy ?Z90.89 - Acquired absence of other organs (ICD-10) History of foot surgery ?Z98.890 - Other specified postprocedural states (ICD-10) Hx of appendectomy ?Z90.49 - Acquired absence of other specified parts of digestive tract (ICD-10) History of hysterectomy ?Z90.710 - Acquired absence of both cervix and uterus (ICD-10) History of cholecystectomy ?Z90.49 - Acquired absence of other specified parts of digestive tract (ICD-10) Family History (Updated 11/07/24 @ 13:12 by Tereza Tavera) Father Family history of COPD (chronic obstructive pulmonary disease) Mother Family history of COPD (chronic obstructive pulmonary disease) Family history of diabetes mellitus Brother Family history of cancer Family history of diabetes mellitus Family history of hypertension Grandmother Family history of stroke Social History (Updated 11/07/24 @ 13:13 by Tereza Tavera) Within the past year, how often did you have a drink containing alcohol: never Within the past year, how often did you have six or more drinks on one occasion: never Score interpretation: A score less than 3 is consistent with normal alcohol consumption. Smoking status: Current every day smoker Non-prescribed substance use: denies use Previous occupational history: retired Highest level of school completed/degree received: high school graduate Are you now , , , , never or living with a partner: In a typical week, how many times do you talk on the telephone with family, friends, or neighbors: 3 or more times per week How often do you get together with friends or relatives: 3 or more times per week How often do you attend adventist or mu-ism services: 4 or more times per year Do you belong to any clubs or organizations such as adventist groups unions, fraternal or athletic groups, or school groups: no Total score: 3 Score interpretation: A score of greater than or equal to 2 indicates the lowest level of social isolation. Little interest or pleasure in doing things: not at all Feeling down, depressed, or hopeless: not at all Feel stressed/tense/nervous/anxious/difficulty sleeping: not at all Do you think of yourself as: straight/heterosexual Gender Identity: female Meds Home Medications and Allergies Home Medications ?Medication ?Instructions ?Recorded ?Confirmed ?Type cholecalciferol (vitamin D3) 50 50 mcg PO DAILY 11/07/24 11/07/24 History mcg (2,000 unit) tablet citalopram 20 mg tablet 20 mg PO DAILY 11/07/24 11/07/24 History clonazepam 2 mg tablet 2 mg PO Q12H 11/07/24 11/07/24 History esomeprazole magnesium 40 mg 40 mg PO Q24H 11/07/24 11/07/24 History capsule,delayed release insulin glargine-yfgn 100 unit/mL 20 unit subcut .QHS 11/07/24 11/07/24 History (3 mL) subcutaneous pen (Semglee (insulin glargine-yfgn) Pen) levothyroxine 150 mcg tablet 150 mcg PO .ACB 11/07/24 11/07/24 History (Synthroid) liothyronine 5 mcg tablet 10 mcg PO DAILY 11/07/24 11/07/24 History rosuvastatin 5 mg tablet 5 mg PO DAILY 11/07/24 11/07/24 History sucralfate 100 mg/mL oral 10 ml PO Q6H 11/07/24 11/07/24 History suspension Allergies Allergy/AdvReac Type Severity Reaction Status Date / Time Sulfa (Sulfonamide Allergy Unknown Unknown Verified 11/07/24 10:00 Antibiotics) Exam Narrative Exam Narrative: General: The patient appears in no acute respiratory distress. Appears pale. Skin: Warm, dry, pallor noted. There is no rash noted. Head: Normocephalic, atraumatic Eye: Conjunctiva are pale Ears, Nose, Mouth, and Throat: oral mucosa is moist. Nares patent. Cardiovascular: Regular Rate and Rhythm Respiratory: Patient is in no distress, no accessory muscle use, lungs are clear to auscultation, no wheezing, rales or rhonchi Back: non-tender GI: Soft and nontender and nondistended. Musculoskeletal: The patient has no evidence of calf tenderness, no pitting edema, symmetrical pulses noted bilaterally Neurological: She is awake and alert. She is able to tell me her name but cannot tell me the year or where she is or why she is here. Psychiatric: Cooperative Constitutional Vital Signs, click to edit/add: Last Vital Signs Temp 98.4 F 11/07/24 13:00 Pulse 87 11/07/24 17:58 Resp 16 11/07/24 13:00 BP 84/53 L 11/07/24 13:00 Pulse Ox 98 11/07/24 14:37 O2 Del Method Nasal Cannula 11/07/24 14:37 O2 Flow Rate 2 11/07/24 14:37 Results Labs Labs: Short CBC 11/07/24 Range/Units 10:04 WBC 2.2 L (4.0-11.0) 10^3/uL Hgb 5.3 L* (12.0-16.0) g/dL Hct 15.6 L* (36.0-48.0) % Plt Count 31 L (150-450) 10^3/uL BMP 11/07/24 10:04 Sodium 144 Potassium 2.7 L* Chloride 106 Carbon Dioxide 27.2 BUN 28.0 H Creatinine 0.81 Glucose 109 H Calcium 8.3 L Liver Function 11/07/24 Range/Units 10:04 Total Bilirubin 1.7 H (0.2-1.0) mg/dL Direct Bilirubin 0.4 H (0.0-0.2) mg/dL AST 122 H (15-37) U/L ALT 30 (14-59) U/L Alkaline Phosphatase 98 (46-116) U/L Albumin 3.3 L (3.4-5.0) g/dL Urine 11/07/24 Range/Units 10:38 Urine Color Yellow (YELLOW) Urine Clarity Cloudy A (CLEAR) Urine pH 6.0 (5.0-9.0) Ur Specific [place] 1.025 (1.005-1.025) Urine Protein 100 A (NEG/TRACE) mg/dL Urine Glucose (UA) Negative (NEGATIVE) mg/dL ABG ABG results: 11/07/24 13:38 VBG pH 7.400 VBG pCO2 41.9 Assessment and Plan Assessment and Plan (1) Anemia: Qualifiers: Anemia type: unspecified type Qualified Code(s): D64.9 - Anemia, unspecified (2) Neutropenia: Qualifiers: Neutropenia type: unspecified Qualified Code(s): D70.9 - Neutropenia, unspecified (3) Thrombocytopenia: Plan 59 y/o female who follows with Dr Downing from primary care. We are consulted for anemia, thrombocytopenia, very high LDH. Impression: # Thrombocytopenia # Macrocytic anemia # Leukopenia / neutropenia # Markedly high LDH # Normal differential # AMS / confusion She was recently admitted to [facility] for abd pain and elevated LFTs. She was admitted for liver workup which was reportedly negative. She has had nausea, abd distension. She does have CT a/p on file showing no acute pathology, organomegaly, or hepatosplenomegaly. She has had AMS for the past 4-6 weeks per family at the bedside. She has had episode of syncope. She was admitted to [facility] for further evaluation. Work-up has shown WBC 2.2, Hgb 5.3, MCV 123, plt 31K. On 10/10, diff was WNL. Differential from 11/07/2024 is listed as not reportable, but manual performed shows diff is WNL. She has been informed that she has antibodies in her blood. She is awaiting [place] evaluation for T+S. She does have orders for PRBC transfusion. I would maintain Hgb > 7 g/dL. Her fibrinogen is 275. Bili is elevated at 1.7. LDH is 5257. Her med list was reviewed and is notable for Abx for UTI. She is on PPI. I discussed my concern for peripheral blood destruction / hemolysis. We will need to exlude hemolytic anemia and specifically MAHA / TTP. I will facilitate retic count, haptoglobin, direct antonella / CHARLIE, B12, folic acid, iron studies, flow cytometry. I have added ADAMTS-13 level. I have added peripheral smear to ensure no schistocytes or fragmented RBC. If she has signs of hemolysis and specifically schistocytes, she would need to be transferred for plasma exchange. In the interim, I will start prednisone 80 mg daily, and await peripheral smear review. I discussed above with pt, family at the bedside. Also RNs. Also Dr Downing. I will be available tomorrow via cell for any q's and concerns. Thank you for the consult. Will follow very closely. Margo Schwartz MD Hematology Oncology Face to face time: 60 mins
[2024-11-07] MEDS: LACTATED RINGER'S SOLUTION 1,000 ML 50 ML IV (19:37)
[2024-11-07 19:58] LABS: Glucometer 120 mg/dL (74-106)
[2024-11-07 20:21] LABS: Percent Iron Saturation 43.4 %
[2024-11-07 20:22] LABS: Bilirubin Direct 0.3 mg/dL (0.0-0.2); Bilirubin Total 1.3 mg/dL (0.2-1.0)
[2024-11-07 20:25] LABS: Mean Corpuscular HGB Conc 34.2 g/dL (29.9-35.2); Mean Corpuscular Hemoglobin 41.6 pg (26.7-34.0); Mean Corpuscular Volume 121.6 fL (81.0-99.0); Platelet Count 30 10^3/uL (150-450); Red Blood Count 1.25 10^6/uL (4.20-5.40); Red Cell Distribution Width 13.6 % (11.0-15.0); White Blood Count 1.9 10^3/uL (4.0-11.0)
[2024-11-07 20:29] LABS: Hemoglobin 5.2 g/dL (12.0-16.0)
[2024-11-07 20:30] LABS: Hematocrit 15.2 % (36.0-48.0)
[2024-11-07 20:32] LABS: Reticulocyte Pct Auto 1.31 % (0.60-3.10)
[2024-11-07] MEDS: CLONAZEPAM 0.5 MG TABLET 2 MG PO (20:54)
[2024-11-07] MEDS: PREDNISONE 20 MG TABLET 80 MG PO (20:55)
[2024-11-07] MEDS: SUCRALFATE 1 GM TABLET PO (20:55)
[2024-11-07] MEDS: POTASSIUM CHLORIDE 10 MEQ ER TABLET PO (20:55)
[2024-11-07] MEDS: FOLIC ACID 1 MG TABLET PO (20:55)
[2024-11-07 21:44] LABS: Lymphocytes Absolute Manual 0.98 10^3/uL (1.20-3.80); Segmented Neut Absolute Manual 0.89 10^3/uL (1.4-6.5)
[2024-11-07 21:51] LABS: Schistocytes 1+
[2024-11-07 21:53] LABS: Macrocytosis 1+
[2024-11-07 21:55] LABS: Monocytes Absolute Manual 0.01 10^3/uL (0.30-0.80)
[2024-11-08] VITALS (21 sets, daily range): BP systolic 107–145; BP diastolic 59–84; PULSE 69–87; TEMP 36.4–36.9; O2SAT 89–98
[2024-11-08 04:07] LABS: Vitamin B12 150 pg/mL (232-1245)
[2024-11-08] MEDS: FUROSEMIDE 40 MG/4 ML VIAL IV (05:46)
[2024-11-08] MEDS: LEVOTHYROXINE SODIUM 75 MCG TABLET 150 MCG PO (05:46)
--- NOTE | 2024-11-08 07:33 | P.PN_ITS ---
Progress Note: Subjective Subjective Interval history: Patient more awake and alert this morning, in room, no complaints, no flatus, no chest pain no shortness of breath, just generally weak currently getting her second transfusion Exam Constitutional Vital Signs, click to edit/add: Last Vital Signs Temp 98.1 F 11/08/24 06:41 Pulse 87 11/08/24 06:41 Resp 16 11/08/24 06:41 BP 116/75 11/08/24 06:41 Pulse Ox 90 L 11/08/24 06:41 O2 Del Method Room Air 11/08/24 06:41 O2 Flow Rate 1 11/08/24 05:10 Documenting provider has reviewed patient's vital signs: yes Common normals: no apparent distress Chest Common normals: inspection of chest normal and palpation of chest normal Respiratory Common normals: normal respiratory effort and no retractions Cardio Common normals: regular rate, regular rhythm and no murmurs GI Common normals: Normal to inspection, nondistended, normoactive bowel sounds present and soft to palpation; tender (Epigastric tenderness persisting) Progress Note: Objective Labs Labs: Short CBC 11/07/24 11/07/24 Range/Units 10:04 19:09 WBC 2.2 L 1.9 L (4.0-11.0) 10^3/uL Hgb 5.3 L* 5.2 L* (12.0-16.0) g/dL Hct 15.6 L* 15.2 L* (36.0-48.0) % Plt Count 31 L 30 L (150-450) 10^3/uL BMP 11/07/24 10:04 Sodium 144 Potassium 2.7 L* Chloride 106 Carbon Dioxide 27.2 BUN 28.0 H Creatinine 0.81 Glucose 109 H Calcium 8.3 L Liver Function 11/07/24 11/07/24 Range/Units 10:04 19:09 Total Bilirubin 1.7 H 1.3 H (0.2-1.0) mg/dL Direct Bilirubin 0.4 H 0.3 H (0.0-0.2) mg/dL AST 122 H (15-37) U/L ALT 30 (14-59) U/L Alkaline Phosphatase 98 (46-116) U/L Albumin 3.3 L (3.4-5.0) g/dL Urine 11/07/24 Range/Units 10:38 Urine Color Yellow (YELLOW) Urine Clarity Cloudy A (CLEAR) Urine pH 6.0 (5.0-9.0) Ur Specific [place] 1.025 (1.005-1.025) Urine Protein 100 A (NEG/TRACE) mg/dL Urine Glucose (UA) Negative (NEGATIVE) mg/dL Progress Note: A&P Assessment and Plan (1) Anemia: Qualifiers: Anemia type: unspecified type Qualified Code(s): D64.9 - Anemia, unspecified (2) Neutropenia: Qualifiers: Neutropenia type: unspecified Qualified Code(s): D70.9 - Neutropenia, unspecified (3) Thrombocytopenia: (4) Coagulopathy: (5) Acute UTI: (6) Hypokalemia: (7) Cirrhosis: (8) Hypotension: (9) Diabetes: (10) Enlarged liver: (11) Anxiety: (12) Elevated LDH: (13) Elevated liver enzymes: (14) B12 deficiency: (15) Hypothyroid: (16) Hypoxia, sleep related: (17) Vitamin D deficiency: (18) Hypercholesterolemia: (19) Depressed: (20) GERD (gastroesophageal reflux disease): Plan admission finding: severe anemia, neutropenia, thrombocytopenia, hypokalemia, acute UTI Severe anemia - recent endoscopy negative, on PPI, hemoccult neg -due to crossmatch issue she is just getting her second unit currently. Repeat CBC post, long discussion with family and with oncology, concern for myelo dyspl astic disorder with the thrombocytopenia progressive over the last month. Working on transfer to [facility] for further workup, bone marrow biopsy Thrombocytopenia -repeat labs are pending this morning, see above Neutropenia -repeat labs are pending this morning, see above Elevated liver function test with cirrhosis with coagulopathy -given vitamin K yesterday,, labs pending morning Hypokalemia - supplement Hypotension (71/53) --improved DM - insulin sliding scale-stable Acute UTI - IV AB due to not sure her ability to absorb orally Depression and anxiety-continue with home medications Hypercholesterolemia continue with home medications B12 deficiency-supplement supplement Acute hypoxia with sleep-improved and improved this morning off supplemental oxygen when I saw her in the room Hypothyroidism-continue supplementation, adding Cytomel-continue supplementation, adding Cytomel Admission status: Neutropenia, thrombocytopenia. sever anemia, with coagulopathy related to cirrhosis - medically neccessary treatment will span 2 midnights - inpatient status ?
[2024-11-08 07:34] LABS: Glucometer 203 mg/dL (74-106)
[2024-11-08] MEDS: SUCRALFATE 1 GM TABLET PO ×3 (08:31→21:23)
[2024-11-08] MEDS: PREDNISONE 20 MG TABLET 80 MG PO (08:32)
[2024-11-08] MEDS: FOLIC ACID 1 MG TABLET PO (08:32)
[2024-11-08] MEDS: LIOTHYRONINE SODIUM 5 MCG TABLET 15 MCG PO (08:32)
[2024-11-08] MEDS: CHOLECALCIFEROL (VITAMIN D3) 25 MCG/1,000 UNITS TABLET 50 MCG PO (08:32)
[2024-11-08] MEDS: INSULIN ASPART 300 UNIT/3 ML PEN SUBQ ×2 (08:33→16:37)
[2024-11-08] MEDS: CLONAZEPAM 0.5 MG TABLET 2 MG PO ×2 (08:33→21:23)
[2024-11-08] MEDS: POTASSIUM CHLORIDE 10 MEQ ER TABLET PO ×2 (08:33→21:23)
[2024-11-08] MEDS: CITALOPRAM HYDROBROMIDE 20 MG TABLET PO (08:33)
[2024-11-08] MEDS: CYANOCOBALAMIN 1,000 MCG/ML VIAL 1000 MCG IM (08:40)
[2024-11-08] MEDS: PANTOPRAZOLE SODIUM 40 MG VIAL IV ×2 (08:53→21:22)
--- NOTE | 2024-11-08 10:19 | SWNOTE1 ---
SW did see recommendation of home health. Plan is for pt to be transferred to higher level of care. SW to continue to follow.
[2024-11-08 10:55] LABS: Hematocrit 24.4 % (36.0-48.0); Hemoglobin 8.5 g/dL (12.0-16.0); Mean Corpuscular HGB Conc 34.8 g/dL (29.9-35.2); Mean Corpuscular Hemoglobin 36.2 pg (26.7-34.0); Mean Corpuscular Volume 103.8 fL (81.0-99.0); Platelet Count 34 10^3/uL (150-450); Red Blood Count 2.35 10^6/uL (4.20-5.40)
[2024-11-08 11:09] LABS: INR 1.19; Prothrombin Time 12.4 sec (9.0-11.6)
[2024-11-08 11:10] LABS: Alanine Aminotransferase 39 U/L (14-59); Albumin Globulin Ratio 1.4; Albumin Level 3.7 g/dL (3.4-5.0); Alkaline Phosphatase 118 U/L (46-116); Aspartate Amino Transferase 123 U/L (15-37); BUN Creatinine Ratio 26.6; Bilirubin Total 1.6 mg/dL (0.2-1.0); Calcium 8.9 mg/dL (8.5-10.1); Carbon Dioxide 27.8 mmol/L (21.0-32.0); Chloride 106 mmol/L (98-107); Estimated GFR (African America >60 (>=60 mL/min/1.73m^2); Estimated GFR (Non-African Ame >60 (>=60 mL/min/1.73m^2); Globulin 2.6 g/dL; Glucose 130 mg/dL (74-106); Potassium 3.8 mmol/L (3.5-5.1); Sodium 143 mmol/L (136-145); Total Protein 6.3 g/dL (6.4-8.2)
[2024-11-08 11:14] LABS: Glucometer 153 mg/dL (74-106)
[2024-11-08 11:36] LABS: Monocytes Absolute Manual 0.12 10^3/uL (0.30-0.80); Segmented Neut Absolute Manual 1.28 10^3/uL (1.4-6.5)
[2024-11-08 11:37] LABS: Anisocytosis 1+; Macrocytosis 1+
--- NOTE | 2024-11-08 13:23 | PC.NURSE ---
Patient oriented to self, current year and date of . Asked patient if she knew where she currently was, patient stated she is at Dr. Downing's apartment. When asked if she could recall any events from the day before (11/07/24), patient stated she went on a golf cart ride. Patient's spouse corrected her and stated she she took an ambulance ride and she responded with oh yeah thats right .
[2024-11-08] MEDS: CEFTRIAXONE 1,000 MG in 0.9 % SODIUM CHLORIDE 50 ML 100 MG IV (13:45)
[2024-11-08] MEDS: 0.9 % SODIUM CHLORIDE 250 ML 10 ML IV (13:45)
[2024-11-08] MEDS: LEVOFLOXACIN IN DEXTROSE 5 % 750 MG/150 ML PREMIX 100 MG IV (14:44)
[2024-11-08 16:10] LABS: Basophils Percent Auto 0.5 % (0.2-2.0); Hematocrit 24.4 % (36.0-48.0); Hemoglobin 8.4 g/dL (12.0-16.0); Immature Granulocytes Abs Auto 0.13 10^3/uL (0.00-0.03); Immature Granulocytes Pct Auto 6.5 % (0.0-0.5); Lymphocytes Absolute Auto 0.6 10^3/uL (1.2-3.8); Lymphocytes Percent Auto 32.2 % (20.5-60.0); Mean Corpuscular HGB Conc 34.4 g/dL (29.9-35.2); Mean Corpuscular Hemoglobin 35.4 pg (26.7-34.0); Monocytes Absolute Auto 0.1 10^3/uL (0.3-0.8); Neutrophils Absolute Auto 1.1 10^3/uL (1.4-6.5); Neutrophils Percent Auto 56.8 % (43.0-75.0); Platelet Count 30 10^3/uL (150-450); Red Blood Count 2.37 10^6/uL (4.20-5.40)
[2024-11-08 16:21] LABS: Alanine Aminotransferase 43 U/L (14-59); Albumin Globulin Ratio 1.4; Albumin Level 3.6 g/dL (3.4-5.0); Alkaline Phosphatase 121 U/L (46-116); Amylase 37 U/L (25-115); Anion Gap 11.4; Aspartate Amino Transferase 104 U/L (15-37); BUN Creatinine Ratio 26.5; Bilirubin Total 1.3 mg/dL (0.2-1.0); Calcium 9.1 mg/dL (8.5-10.1); Carbon Dioxide 28.7 mmol/L (21.0-32.0); Chloride 105 mmol/L (98-107); Estimated GFR (African America >60 (>=60 mL/min/1.73m^2); Estimated GFR (Non-African Ame >60 (>=60 mL/min/1.73m^2); Globulin 2.6 g/dL; Glucose 192 mg/dL (74-106); Potassium 4.1 mmol/L (3.5-5.1); Sodium 141 mmol/L (136-145); Total Protein 6.2 g/dL (6.4-8.2)
[2024-11-08 16:24] LABS: Lactate/Lactic Acid 0.8 mmol/L (0.4-2.0)
[2024-11-08 16:29] LABS: Ammonia 34 umol/L (11-32)
[2024-11-08 16:34] LABS: Glucometer 231 mg/dL (74-106)
[2024-11-08] MEDS: OLANZapine 5 MG TABLET 2.5 MG PO (18:14)
[2024-11-08 19:35] LABS: Glucometer 128 mg/dL (74-106)
[2024-11-08] MEDS: NICOTINE 21 MG PATCH.TD24 TD (21:22)
[2024-11-08] MEDS: QUETIAPINE FUMARATE 25 MG TABLET PO (21:23)
[2024-11-08] MEDS: OLANZAPINE 10 MG VIAL 5 MG IM (21:23)
[2024-11-08] MEDS: ZIPRASIDONE MESYLATE 20 MG VIAL 10 MG IM (23:11)
[2024-11-08] MEDS: LORAZEPAM 2 MG/ML VIAL 0.5 MG IV (23:30)
--- NOTE | 2024-11-09 00:28 | PC.NURSE ---
2014-Pt trying to leave the hospital stating she needed to go out to the garage and smoke. RN and aide tried to re-orient the patient to the hospital and patient was not understanding she was not at home. RN and aide did get the patient to turn around and walk back to her room. However, the patient stated this was not her room and still believed she was at home. RN tried to offer patient a nicotine patch at this time which the patient refused and continued to say she just wanted a cigarette. 2022- night hospitalist was made aware of the situation and added PRN order for Zyprexa which was given by RN per the order. hospitalist also ordered seroquel which was given with the patient's night time medications. 2129- pt was still trying to get out of bed and leave. At this time the aide director television was at the bedside continuously. 2229- pt was still continuing to try to leave and go outside to the garage. RN and supervisor files unable to orient patient (who still believed she was at home). Pt got upset that she could not go outside and then proceeded to sit on the floor in the middle of the hallway. RN convinced the patient to get off the floor and go back to her room by bribing her with a cup of coffee. At this time the patient went back to her room and sat on the couch. 2239- patient trying to go outside again. Pt stated that the window was the door to go out to her front deck. RN tried to explain that it was a window, pt then asked for it to be opened. RN told patient the window did not open. patient then began to head-butt the window. 2253- Night hospitalist messaged again and placed order for lance. Which was given by RN per the order.; Family was also called and daughter-in law, Dalia, stated she would be able to come in and try to help the patient. 2299- Pt again tried to leave and go to the front room and proceeded to walk into the wall and then tried to slam the bathroom door on the nurse supervisor files while screaming, get the oly out of my house pt's [id number] is currently in the room with the patient and another nurse was called in to be a 1:1. pt is still aggressive and uncooperative at this time with staff and family member.
--- NOTE | 2024-11-09 01:08 | PC.NURSE ---
patient very restless. Patient up and down, walks unsteadily around room, gets in recliner, gets in bed, back up. Patient finally in bed. Patient keeps asking for toast, chicken, biscuits and gravy. Patient keeps looking for doors to other rooms. Daughter in law in room. Daughter in law tries to keep patient in bed.
[2024-11-09] MEDS: LORAZEPAM 2 MG/ML VIAL 0.5 MG IV ×2 (01:14→06:22)
--- NOTE | 2024-11-09 02:06 | PC.NURSE ---
Patient resting in bed with eyes closed. Resp even and nonlabored. No s/s distress observed.
[2024-11-09 04:07] LABS: Vitamin B12 150 pg/mL (232-1245)
[2024-11-09 05:07] LABS: Haptoglobin <10 mg/dL (37-355)
[2024-11-09 05:43] VITALS: O2SAT 92
[2024-11-09 05:54] VITALS: BP 99/58; PULSE 77; TEMP 36.2; O2SAT 92
[2024-11-09] MEDS: LEVOTHYROXINE SODIUM 75 MCG TABLET 150 MCG PO (06:27)
--- NOTE | 2024-11-09 06:35 | PC.NURSE ---
Patient awake and knows she's in the hospital. She is cooperative at this time. electronics engineering technologist up to draw labs. Patient took am meds without difficulty
[2024-11-09 06:46] LABS: Basophils Percent Auto 0.3 % (0.2-2.0); Hematocrit 25.8 % (36.0-48.0); Hemoglobin 8.7 g/dL (12.0-16.0); Immature Granulocytes Pct Auto 3.2 % (0.0-0.5); Lymphocytes Absolute Auto 1.4 10^3/uL (1.2-3.8); Lymphocytes Percent Auto 45.3 % (20.5-60.0); Mean Corpuscular HGB Conc 33.7 g/dL (29.9-35.2); Mean Corpuscular Hemoglobin 35.7 pg (26.7-34.0); Monocytes Absolute Auto 0.3 10^3/uL (0.3-0.8); Monocytes Percent Auto 7.9 % (1.7-12.0); Neutrophils Absolute Auto 1.4 10^3/uL (1.4-6.5); Neutrophils Percent Auto 43.3 % (43.0-75.0); White Blood Count 3.2 10^3/uL (4.0-11.0)
[2024-11-09 06:55] LABS: Ammonia 15 umol/L (11-32)
[2024-11-09 06:57] LABS: Alanine Aminotransferase 39 U/L (14-59); Albumin Globulin Ratio 1.5; Albumin Level 3.7 g/dL (3.4-5.0); Alkaline Phosphatase 109 U/L (46-116); Anion Gap 11.1; Aspartate Amino Transferase 65 U/L (15-37); BUN Creatinine Ratio 29.6; Bilirubin Total 1.2 mg/dL (0.2-1.0); Calcium 9.4 mg/dL (8.5-10.1); Carbon Dioxide 31.1 mmol/L (21.0-32.0); Chloride 108 mmol/L (98-107); Estimated GFR (African America >60 (>=60 mL/min/1.73m^2); Estimated GFR (Non-African Ame >60 (>=60 mL/min/1.73m^2); Globulin 2.5 g/dL; Glucose 121 mg/dL (74-106); Potassium 3.2 mmol/L (3.5-5.1); Sodium 147 mmol/L (136-145); Total Protein 6.2 g/dL (6.4-8.2)
[2024-11-09 07:00] LABS: INR 1.14; Prothrombin Time 11.9 sec (9.0-11.6)
[2024-11-09 07:39] LABS: Platelet Count 29 10^3/uL (150-450)
[2024-11-09 07:40] LABS: Red Cell Distribution Width 23.9 % (11.0-15.0)
[2024-11-09 07:44] LABS: Mean Corpuscular Volume 105.7 fL (81.0-99.0)
[2024-11-09 07:45] LABS: Red Blood Count 2.44 10^6/uL (4.20-5.40)
--- NOTE | 2024-11-09 08:05 | P.PN_ITS ---
Progress Note: Subjective Subjective Interval history: Difficult night with increasing confusion Exam Constitutional Vital Signs, click to edit/add: Last Vital Signs Temp 97.2 F L 11/09/24 05:54 Pulse 77 11/09/24 05:54 Resp 18 11/09/24 05:54 BP 99/58 11/09/24 05:54 Pulse Ox 92 L 11/09/24 05:54 O2 Del Method Room Air 11/09/24 05:54 O2 Flow Rate 2 11/08/24 19:35 Documenting provider has reviewed patient's vital signs: yes Common normals: no apparent distress (Sedated) Chest Common normals: inspection of chest normal and palpation of chest normal Respiratory Common normals: normal respiratory effort, no retractions and clear to auscultation bilaterally Cardio Common normals: regular rate, regular rhythm, S1 normal heart sound and S2 normal heart sound GI Common normals: Normal to inspection, nondistended, normoactive bowel sounds present, soft to palpation and non-tender (no tendenress but pt sedated) Progress Note: Objective Labs Labs: Short CBC 11/08/24 11/08/24 11/09/24 Range/Units 10:41 15:53 06:34 WBC 2.0 L 2.0 L 3.2 L (4.0-11.0) 10^3/uL Hgb 8.5 L 8.4 L 8.7 L (12.0-16.0) g/dL Hct 24.4 L 24.4 L 25.8 L (36.0-48.0) % Plt Count 34 L 30 L 29 L* (150-450) 10^3/uL BMP 11/08/24 11/08/24 11/09/24 10:41 15:53 06:34 Sodium 143 141 147 H Potassium 3.8 4.1 3.2 L Chloride 106 105 108 H Carbon Dioxide 27.8 28.7 31.1 BUN 17.0 18.0 24.0 H Creatinine 0.64 0.68 0.81 Glucose 130 H 192 H 121 H Calcium 8.9 9.1 9.4 Liver Function 11/08/24 11/08/24 11/09/24 Range/Units 10:41 15:53 06:34 Total Bilirubin 1.6 H 1.3 H 1.2 H (0.2-1.0) mg/dL AST 123 H 104 H 65 H (15-37) U/L ALT 39 43 39 (14-59) U/L Alkaline Phosphatase 118 H 121 H 109 (46-116) U/L Albumin 3.7 3.6 3.7 (3.4-5.0) g/dL Progress Note: A&P Assessment and Plan (1) Anemia: Qualifiers: Anemia type: unspecified type Qualified Code(s): D64.9 - Anemia, unspecified (2) Neutropenia: Qualifiers: Neutropenia type: unspecified Qualified Code(s): D70.9 - Neutropenia, unspecified (3) Thrombocytopenia: (4) Coagulopathy: (5) Acute UTI: (6) Hypokalemia: (7) Cirrhosis: (8) Hypotension: (9) Diabetes: (10) Enlarged liver: (11) Anxiety: (12) Elevated LDH: (13) Elevated liver enzymes: (14) B12 deficiency: (15) Hypothyroid: (16) Hypoxia, sleep related: (17) Vitamin D deficiency: (18) Hypercholesterolemia: (19) Depressed: (20) GERD (gastroesophageal reflux disease): Plan admission finding: severe anemia, neutropenia, thrombocytopenia, hypokalemia, acute UTI Severe anemia - recent endoscopy negative, on PPI, hemoccult neg -2 units of blood yesterday hemoglobin remaining stable remaining stable, platelet count Thrombocytopenia -down down slightly today Neutropenia -improved today Altered mental status, deteriorated overnight, really started yesterday afternoon, ammonia levels up yesterday and added lactulose that is better today, medications adjusted overnight we will continue to adjust throughout the day today, CT head was negative, consider MRI but no focal neurological deficits Elevated liver function test with cirrhosis with coagulopathy - and hyperammnemia - better today Hypokalemia - supplement Hypotension (71/53) --Down slightly today, add IV fluids back DM - insulin sliding scale-stable Acute UTI - IV AB due to not sure her ability to absorb orally-culture pending Depression and anxiety-continue with home medications Hypercholesterolemia continue with home medications B12 deficiency-supplement supplement Acute hypoxia with sleep-improved and improved this morning off supplemental oxygen when I saw her in the room Hypothyroidism-continue supplementation, adding Cytomel-continue supplementation, adding Cytomel Admission status: Neutropenia, thrombocytopenia. sever anemia, with coagulopathy related to cirrhosis - medically neccessary treatment will span 2 midnights - inpatient status-still awaiting transfer, medically necessary treatment persists ?
[2024-11-09] MEDS: PANTOPRAZOLE SODIUM 40 MG VIAL IV (08:33)
[2024-11-09] MEDS: LACTATED RINGER'S SOLUTION 1,000 ML 75 ML IV (08:33)
--- NOTE | 2024-11-09 11:00 | PT.DAILY ---
Physical Therapy Daily Note PT Daily Note/Assess Start: 11/09/24 10:59 Freq: Status: Active Protocol: Document 11/09/24 10:59 ANTONY (Rec: 11/09/24 11:00 ANTONY [id number]) Visit Not Completed Visit Not Completed Visit Not Completed Inability to participate Due to: Other Reason Visit Nursing reports that patient is very drowsy this Not Completed morning, and would not be able to participate in purposeful skilled therapy. Will attempt RX this PM if able. Physical Therapy Daily Note/Assessment Time In/Time Out Time In 11:00 Time Out 11:00 GG. Functional Abilities and Goals-Complete for Swing Bed Patients Only [id number]. Self-Care [id number]. Mobility
[2024-11-09] MEDS: CEFTRIAXONE 1,000 MG in 0.9 % SODIUM CHLORIDE 50 ML 100 MG IV (11:14)
[2024-11-09 11:22] VITALS: BP 90/44; PULSE 63; TEMP 37.2; O2SAT 93
[2024-11-09 11:27] LABS: Glucometer 104 mg/dL (74-106)
[2024-11-09 12:04] VITALS: O2SAT 83
[2024-11-09] MEDS: LEVOFLOXACIN IN DEXTROSE 5 % 750 MG/150 ML PREMIX 100 MG IV (12:07)
[2024-11-09 15:27] VITALS: BP 102/63; PULSE 64; TEMP 36.7; O2SAT 94
[2024-11-09] MEDS: SUCRALFATE 1 GM TABLET PO (15:34)
--- NOTE | 2024-11-09 16:20 | PC.NURSE ---
report called to Lizabeth VIZCAINO at [facility], Dr Colbert accepting physician. Informed will be leaving here by squad at approx 17:15-17:30
== END 2024-11-09 17:18 | disposition short-term general hospital (02) | DRG 812 ==
LOC: ER 12:08 → MS 13:05
PROVIDERS: Internal Medicine Hematology & Oncology; Admitting Provider Family Medicine; Emergency Provider Emergency Medicine; PCP Family Medicine; Visit Provider Family Medicine
DX: D50.9 Iron deficiency anemia, unspecified (principal); D68.4 Acquired coagulation factor deficiency; N39.0 Urinary tract infection, site not specified; J96.11 Chronic respiratory failure with hypoxia; E72.20 Disorder of urea cycle metabolism, unspecified; D51.9 Vitamin B12 deficiency anemia, unspecified; R74.02 Elevation of levels of lactic acid dehydrogenase [LDH]; E87.6 Hypokalemia; E11.9 Type 2 diabetes mellitus without complications; K74.60 Unspecified cirrhosis of liver; F41.9 Anxiety disorder, unspecified; F17.200 Nicotine dependence, unspecified, uncomplicated; Z79.899 Other long term (current) drug therapy; Z79.4 Long term (current) use of insulin; Z79.890 Hormone replacement therapy; Z88.2 Allergy status to sulfonamides; D70.9 Neutropenia, unspecified; D75.839 Thrombocytosis, unspecified; E03.9 Hypothyroidism, unspecified; E55.9 Vitamin D deficiency, unspecified; E78.00 Pure hypercholesterolemia, unspecified; F32.A Depression, unspecified; K21.9 Gastro-esophageal reflux disease without esophagitis
CPT/HCPCS: 36415; 36430; 70450; 71045; 74177; 80048; 80053; 80076; 81001; 82140; 82150; 82247; 82248; 82607; 82728; 82746; 82800; 82948; 83010; 83540; 83550; 83605; 83615; 83690; 83735; 84436; 84443; 84481; 84484; 85007; 85025; 85027; 85045; 85384; 85397; 85610; 85730; 86850; 86870; 86880; 86885; 86900; 86901; 86905; 86906; 86922; 87040; 87086; 87088; 87186; 93005; 93306; 93880; 94761; 97161; 97165; 97530; 97535; 99285; 99406; 99999; G0328; J0696; J1938; J2060; J2359; J3420; J3430; J3480; J3486; J7512; P9016; Q9967

== ENCOUNTER 2024-11-17 07:38 | Outpatient (OUT) | payer OTHER, SELFPAY ==
--- OUTSIDE RECORDS SUMMARY | 2024-11-09 18:46 | XMS_ITS | Encounter Summary ---
Author Organization [facility] Address [address] [place] [address] Care Team Providers Care Teacher Resource Name Role Phone Henrik Downing MD Primary Care Provider [phone] Reason for Referral * (Emergency) - Pending Review Specialty Diagnoses / Procedures Referred By Contac t Referred To Contact Procedures ECG 12 lead Rebecca Lang CNP [address] [place] [address] Referral ID Status Reason Start Date Expiration Date V isits Requested Visits Authorized [id number] Pending Review 11/09/2024 11/09/2025 1 1 Reason for Visit * Auth/Cert (Routine) Specialty Diagnoses / Procedures Referred By Contac t Referred To Contact Diagnoses Pancytopenia (CMS/HCC) neutropenia, anemia, thromboctyopenia Procedures NO CODED SERVICE Micky Colbert MD [address] [place] [address] [place] [address] Referral ID Status Reason Start Date Expiration Date Visits Re quested Visits Authorized [id number] 1 1 Encounter Details Date Type Department Care Team (Late st Contact Info) Description 11/09/2024 6:46 PM EDT - 11/14/2024 2:56 PM EDT Hospital Encounter [facility] 4AB Urology [address] [place] [address] Micky Colbert MD [address] [facility] [place] [address] Hal Bajwa MD [address] [place], [place] [id number] Harry Lebron MD [address] [place], [place] [id number] Pancytopenia (CMS/HCC) (Primary Dx); Vitamin D deficiency; Vitamin B12 deficiency Discharge Disposition: Home or Self Care () Social History Tobacco Use Types Packs/Day Years Used Date Smoking Tobacco: Former Cigarettes 1 48.4 S tarted: 06/28/1976 Smokeless Tobacco: Never Tobacco Cessation:Counseling Given: Not Answered Alcohol Use Standard Drinks/Week Comments Never 0 (1 standard drink = 0.6 oz pur e alcohol) [facility] Utilities Answer Date Recorded In the past 12 months has th e Tasted Menu, gas, oil, or water [employer] threatened to shut off services in your home? No 11/09/2024 Humiliation, Afraid, Rape, and Kick questionnair e Answer Date Recorded Within the last year, have y ou been afraid of your partner or ex-partner? No 11/09/2024 Emotionally Abused Not on file 11/09/2024 Physically Abused Not on file 11/09/2024 Sexually Abused Not on file 11/09/2024 Overall Financial Resource Strain (CARDIA) Answe r Date Recorded How hard is it for you to pa y for the very basics like food, housing, medical care, and heating? Not hard at all 11/09/2024 Transportation Answer Date Recorded In the past 12 months, has l ack of transportation kept you from medical appointments or from getting medications? No 11/09/2024 Lack of Transportation (Non-Medical) Not on file 11/09/2024 Housing Stability Vital Sign Answer Juan Manuel e Recorded Unable to Pay for Housing in the Last Year Not o n file 11/09/2024 Number of Times Moved in the Last Year Not on fi le 11/09/2024 At any time in the past 12 m [facility], were you homeless or living in a longterm (including now)? No 11/09/2024 Hunger Vital Sign Answer Date Recorded Within the past 12 months, y ou worried that your food would run out before you got the money to buy more. Never true 11/10/19 25 Ran Out of Food in the Last Year Not on file 11/09/2024 Sex and Gender Information Value Date Recorded Sex Assigned at Female 11/10/2024 8:57 AM EDT Gender Identity Female 11/10/2024 8:57 AM EDT Sexual Orientation Heterosexual or Straight 10/26 8:57 AM EDT documented as of this encounter Last Filed Vital Signs Vital Sign Reading Time Taken Comments Blood Pressure 128/67 11/14/2024 1:15 PM EDT Pulse 67 11/14/2024 1:15 PM EDT Temperature 36.6 C (97.9 F) 11/14/2024 1:15 PM EDT Respiratory Rate 19 11/14/2024 1:1 5 PM EDT Oxygen Saturation 97% 11/14/2024 1:15 PM EDT Inhaled Oxygen Concentration - - Weight 70.3 kg (154 lb 15.7 oz) 11/14/2024 4:39 AM EDT Height 157.5 cm (5' 2 ) 11/09/2024 8:36 PM EDT Body Mass Index 28.35 11/09/2024 8:36 PM EDT documented in this encounter Discharge Summaries * Harry Lebron MD - 11/14/2024 1:49 PM EDT Images from the original note were not included. Hospital Medicine Discharge Summary Final Discharge Diagnosis: Pancytopenia - improving Status post bone marrow biopsy Symptomatic anemia Syncope - resolved Vitamin B12 deficiency Iron deficiency Acute encephalopathy - resolved Acute cystitis without hematuria Vitamin D deficiency Transaminitis - resolved Insulin dependent diabetes mellitus type II Acquired hypothyroidism GERD Anxiety Moderate protein-calorie malnutrition Admission Diagnosis: Pancytopenia (CMS/HCC) [D61.818] Hospital course: Ms. Andreia Cid is an 59 y.o. female who came from home with past medical history of DM2, hypothyroidism, GERD, hyperlipidemia, anxiety. She presented as a direct admission from [facility] with pancytopenia. Patient reports that she has had intermittent confusion over the last few days. at bedside also reports a syncopal episode this past Wednesday. Patient denies any prodromal symptoms. She is unclear if she hit her head. At [facility], CT of the head was completed showing no acute intracranial abnormality. CT ofthe abdomen was completed showing no acute abnormality. Initial labs were completed showing WBC 2.2, RBC 1.26, hemoglobin 5.3, hematocrit 15.6, platelet count 31, INR 1.33, sodium 144, potassium 2.7, chloride 106, BUN 28, creatinine 0.81, calcium 8.3, total bilirubin 1.7, direct bilirubin 0.4, AST 122, ALT 30, alkaline phosphatase 98, troponin 4.2. UA was reportedly found positive for UTI and patient was started on ceftriaxone. Patient was given 2 units of blood which did improve hemoglobin. Physician at [facility] reached out to her hematology/oncology team and they recommend transferring patient for further workup and bone marrow biopsy. Patient was admitted to hospitalist services for further evaluation and management. Patient was seen by hematology team as inpatient. She underwent significant work up for her pancytopenia. Labs ordered include, HIV (negative), [id number], LDH (high), retic count (normal). Sneha negative. CT chest, CT abd/pelvis were negative for lymphadenopathy. Patient underwent bone marrow biopsy on 11/10. Patient's blood count improved during hospitalization and her hemoglobin stabilized around 8.5 as well as leukopenia stabilizing around 3.3. Platelet count has improved from 26 to 113. Patient was seen and examined on 5 AM. She was resting in bed. She was doing well and was feeling ready to be discharged. Patient denied chest pain, shortness of breath, abdominal pain. She did not have any recurrence of syncopal episodes. Although the syncopal episodes are most likely due to significant anemia (5.3 at outside hospital while 2019 CBC showed Hgb 14), other etiologies are possible. This was discussed with the family and instructions placed into DC paperwork and they were agreeable to discuss with PCP about possible further syncopal work up. Of note, ECG and telemetry were reviewed and they only showed sinus rhythm and occasional sinus bradycardia. Hematology was agreeable to discharging the patient. Patient is discharged in stable condition to home on 11/14/2024. Surgical, Invasive or Diagnostic Procedures Done During Admission: Biopsy of bone marrow Consultations During Admission: Hematology/Oncology Dear MD Downing Brenda is advised to follow up with you within 1-2 weeks. Items to follow up in ambulatory setting: Follow-up serial CBCs, Follow-up serial BMPs, and Follow-up serial LFTs Follow-up with: Hematology/Oncology Scheduled appointments: Future Appointments Date Time Provider Department Center 11/30/2024 10:00 AM Haroldo Brown MD [facility] Your medication list START taking these medications Instructions Last Dose Given Next Dose Due cyanocobalamin 1,000 mcg tablet Commonly known as: Vitamin B-12 Start taking on: November 15, 2024 Take 1 tablet (1,000 mcg) by mouth in the morning for 97 doses. ergocalciferol 1.25 MG (00746 Units) capsule Commonly known as: Vitamin D-2 Start taking on: November 20, 2024 Take 1 capsule (50,000 Units) by mouth 1 (one) time per week for 14 doses. CONTINUE taking these medications Instructions Last Dose Given Next Dose Due citalopram 20 mg tablet Commonly known as: CeleXA clonazePAM 2 mg tablet Commonly known as: KlonoPIN esomeprazole [address] capsule Commonly known as: NexIUM levothyroxine 125 mcg tablet Commonly known as: Synthroid, Levoxyl liothyronine 5 mcg tablet Commonly known as: Cytomel rosuvastatin 5 mg tablet Commonly known as: Crestor sucralfate 100 mg/mL suspension Commonly known as: Carafate STOP taking these medications insulin glargine 100 unit/mL injection vial Commonly known as: Lantus Where to Get Your Medications These medications were sent to [facility] - [address] [place] [address] [address] [place] [address], [facility] [address] cyanocobalamin 1,000 mcg tablet ergocalciferol 1.25 MG (62881 Units) capsule Andreia has No Known Allergies. Disposition: Home or Self Care () Discharge Condition: Stable Code Status: Full Code Diagnostic Results Hematology: Results from last 7 days Lab Units 11/14/24 0453 11/13/24 0443 11/10/24 0513 11/09/24 1946 WBC AUTO 10*3/uL 3.30* 2.60* < > 3.49* HEMOGLOBIN g/dL 8.5* 8.2* < > 8.4* HEMATOCRIT % 27.7* 26.4* < > 24.8* MCV fL 106.9* 109.5* < > 103.8* PLATELETS AUTO 10*3/uL 113* 36* < > 26* INR -- -- -- 1.20* < > = values in this interval not displayed. Chemistry: Results from last 7 days Lab Units 11/14/24 0453 11/13/24 0443 11/10/24 0513 11/09/24 1946 SODIUM mmol/L 142 143 143 142 POTASSIUM mmol/L 3.8 3.4* 3.6 3.6 CHLORIDE mmol/L 111* 110* 109* 107 CO2 mmol/L 29 30 33* 37* BUN mg/dL 11 10 20 23 CREATININE mg/dL 0.58* 0.48* 0.76 0.79 GLUCOSE mg/dL 122* 120* 92 93 MAGNESIUM mg/dL -- 2.1 -- 1.9 CALCIUM mg/dL 8.3* 8.2* 8.8 8.9 PHOSPHORUS mg/dL -- -- -- 2.9 Results from last 7 days Lab Units 11/13/243 11/09/24 1946 AMMONIA umol/L -- 31 AST U/L 12* 27 ALT U/L 12 22 ALK PHOS U/L 81 89 BILIRUBIN TOTAL mg/dL 0.7 1.0 Test Results Pending At Discharge: Pending Labs Order Current Status HIV COMBO 4G Collected (11/12/24 1041) CIPRIANO In process Bone marrow cell differential In process Bone marrow exam In process CMV IgM In process Cold agglutinin screen In process Mari-Rivas virus VCA, IgM In process HSV 1 and 2 glycoprotein g-specific antibody, IgG In process IMMUNOFIXATION ELECTROPHORESIS & KAPPA/LAMBDA LIGHT CHAINS, BLOOD In process Immunofixation electrophoresis In process [place]: LCMS, CHRBM, EXHD, HOLDF - Miscellaneous Test In process Methylmalonic acid, serum In process Parvovirus B19 antibody, IgG and IgM In process Protein electrophoresis, serum In process Blood culture, peripheral #1 Preliminary result Blood culture, peripheral #2 Preliminary result Diet at the time of discharge: regular diet Nutrition Screen Clinical Indicators of Malnutrition: reduced energy intake, unintentional weight loss, impaired ability to prepare meals, poor appetite, loss of subcutaneous fat with locations identified, loss of muscle mass with location identified Malnutrition Assessment (Completed by RD) Moderate (non-severe) PCM: Acute Illness: severity of body fat loss (mild depletion), severity of reduced muscle mass (mild depletion), decreased energy intake (<75% for > 7days) Treatment & Intervention Plan: RD to change supplement, monitor intakes and adjust recommendations as needed, recommend ordering snacks, vitamin/medication recommendations Nutrition Goals: intake > 75% meals, intake > 75% supplements, wt maintenance, advance diet, maitain visceral protein Activity: Objective Blood pressure 128/67, pulse 67, temperature 36.6 ??C (97.9 ??F), resp. rate 19, height 1.575 m (5'2 ), weight 70.3 kg (154 lb 15.7 oz), SpO2 97%. Physical Exam Vitals reviewed. Constitutional: General: She is not in acute distress. Appearance: She is not ill-appearing or toxic-appearing. HENT: Head: Normocephalic and atraumatic. Mouth/Throat: Mouth: Mucous membranes are moist. Eyes: General: No scleral icterus. Extraocular Movements: Extraocular movements intact. Pupils: Pupils are equal, round, and reactive to light. Cardiovascular: Rate and Rhythm: Normal rate. Pulmonary: Effort: Pulmonary effort is normal. No respiratory distress. Breath sounds: No stridor. Abdominal: General: There is no distension. Palpations: Abdomen is soft. Skin: Findings: No rash. Neurological: Mental Status: She is alert. Cranial Nerves: No cranial nerve deficit. Psychiatric: Mood and Affect: Mood normal. Behavior: Behavior normal. Thought Content: Thought content normal. Judgment: Judgment normal. Total time for discharge - review of data, exam, discussion with providers and care-team, med-rec and orders, arranging follow up, counseling of patient and/or family and documentation was 38 minutes. Signed Harry Lebron MD [facility] Medicine 11/14/2024 1:49 PM CC: MD [place] documented in this encounter Discharge Instructions * Discharge Instructions* Harry Lebron MD - 11/14/2024 11:59 AM EDT Please follow up with primary care physician within 1 week. - Ultrasound of your thyroid showed Small heterogeneous thyroid gland likely sequelae of chronic thyroiditis. Please discuss this finding with your primary care physician. - Please discuss regarding further syncopal work up with your primary care physician. Please follow up with hematology within 1 week. Please take medications as prescribed. Please have lab works (CBC and BMP) done on 11/17/2024. Please do not hesitate to return to the hospital if you have any concerning symptoms. * Discharge Instr - Activity* Shannen Leonard RN - 11/14/2024 11:05 AM EDT * Discharge Instr - Diet* Bessie Feldman LPN - 11/14/2024 11:04 AM EDT * Appointments* Shannen Leonard RN - 11/14/2024 11:05 AM EDT Office Visit DERMATOLOGY 12/27/2024 9:00 AM EDT [address] [place] [id number] Misty Peng MD [address] [place] [address] documented in this encounter Medications at Time of Discharge Medication Sig Dispensed Refills Start Date End Date citalopram (CeleXA) 20 mg tablet Take 20 mg by mouth in the morning. clonazePAM (KlonoPIN) 2 mg tablet Take 2 mg by mouth if needed in the morning, at noon, and at bedtime for anxiety. May take 2-3 tablets daily cyanocobalamin (Vitamin B-12) 1,000 mcg tabletIndications:Vitam in B12 deficiency Take 1 tablet (1,000 mcg) by mouth in the morning for 97 doses. 30 tablet 3 11/15/2024 02/20/2025 ergocalciferol (Vitamin D-2) 1.25 MG (16866 Units) capsuleIndications:Zofia min D deficiency Take 1 capsule (50,000 Units) by mouth 1 (one) time per week for 14 doses. 4 capsule 3 11/20/2024 02/20/2025 esomeprazole (NexIUM) [address] capsule Take 40 mg by mouth before breakfast. Do not open capsule. folic acid (Folvite) 1 mg tabletIndications:Pancy topenia (CMS/HCC) Take 1 tablet (1 mg) by mouth in the morning. 30 tablet 11/14/2024 12/14/2024 levothyroxine (Synthroid, Levoxyl) 125 mcg tablet Take 125 mcg by mouth before breakfast. liothyronine (Cytomel) 5 mcg tablet Take 2 tablets by mouth in the morning. rosuvastatin (Crestor) 5 mg tablet Take 5 mg by mouth in the morning. sucralfate (Carafate) 100 mg/mL suspension Take 10 mL by mouth four times daily. X14 days 11/02/2024 11/16/2024 documented as of this encounter Progress Notes * Kevin Morales MD - 11/14/2024 1:41 PM EDT Images from the original note were not included. HEMATOLOGY and MEDICAL ONCOLOGY: [facility] ([facility]) MD Dr. Юлия Mehta MD Patient name: Andreia Cid Patient Today's Date and Time: 11/14/2024, 1:41 PM Admission Date: 11/09/2024 Impression: New onset pancytopenia Peripheral smear showed pancyopenia, LDH high, Haptoglobin low, bili was slightly elevated at [facility], normal here. Altered mental status, resolved here Macrocytosis Hypothyroidism DM2 Anxiety Recommendations: Bone marrow biopsy result pending, initial eval did not show schistocytes, blasts or promyelocytes.LDH high, Haptoglobin is low, retic count is normal, Sneha negative. [facility] flow cytometry, cold agglutinins and myeloma work up pending. BM biopsy done. Iron levels, B12 and Folate levels are adequate. ADAMTS [address] C/A/P negative for LAD to r/o lymphoma due to elevated LDH. Hb has been stable since 2 U PRBC transfusion at [facility]. PLT count has now improved over past 2 days from 17-36-113, WBC is 2-3 with ANC 1800. We will see her in office to recheck counts and discuss biopsy report and other work up. OK to discharge from Hem-Onc standpoint. Kevin Morales MD PGY-4 Hematology & Oncology Fellow Inpatient Hematology/Oncology Fellow availability Wednesday - 830am-500pm, Wednesday 830am-430pm and Wednesday 830am-1200pm During these hours, Please contact Hematology/Oncology Fellow through [employer] Chat first For Hematology Oncology needs on weekends and after hours, please page the on- call fellow through the hospital spreader operator automatic. Subjective Reason for consultation / Chief complaint: Pancytopenia History of Present Illness Andreia Cid is a 59 y.o.-year-old female with PMH of DM2, dyslipidemia, hypothyroidism and anxiety who was admitted to [facility] due to confusion and weakness for the past 4-6 weeks. Spouseat bedside reports that she had been confused ON and OFF, although she is completely alert and oriented today. CT Head at [facility] was unremarkable, CT A/P was unremarkable. She was noted to have pancytopenia with WBC 2.2, Hb 5.3 and PLT 31, for which she was transferred to [facility]. Her blood work up available from 2019 showed normal counts. Pt reports that she had recently blood work up done and it was normal. We are waiting on records to be faxed. She reports fatigue for past few weeks. She denies blood in stool or urine, or vomiting blood. She denies bruising. She had a colonoscopy around 5 years ago which was normal. Blood work up done here showed WBC 3.49 with neutrophil count 1.4, Hb 8.4, MCV 103.8, INR 1.20, LFTs normal, TSH 0.13, LD 3489, Haptoglobin <3.5, peripheral smear showed leukopenia, anemia and thrombocytopenia without specific cell type. Interval History: Pt is doing well. She wants to go Home. Objective Past Medical History: History reviewed. No pertinent past medical history. Past Surgical History: History reviewed. No pertinent surgical history. Medications: Scheduled: citalopram, 20 mg, oral, Nightly cyanocobalamin, 1,000 mcg, oral, Daily ergocalciferol, 50,000 Units, oral, Weekly insulin lispro, 0-5 Units, subcutaneous, TID with meals And insulin lispro, 0-4 Units, subcutaneous, Nightly iron sucrose, 200 mg, intravenous, q24h levothyroxine, 125 mcg, oral, Daily before breakfast liothyronine, 10 mcg, oral, Daily pantoprazole, 40 mg, oral, Daily rosuvastatin, 5 mg, oral, Nightly sucralfate, 1 g, oral, 4x daily Infusions: Social History: Social History Socioeconomic History Marital status: Spouse name: None Number of children: None Years of education: None Highest education level: None Occupational History None Tobacco Use Smoking status: Former Current packs/day: 1.00 Average packs/day: 1 pack/day for 48.4 years (48.4 ttl pk-yrs) Types: Cigarettes Start date: 06/28/1976 Smokeless tobacco: Never Vaping Use Vaping status: Never Used Substance and Sexual Activity Alcohol use: Never Drug use: Never Sexual activity: None Other Topics Concern None Social History Narrative None Social Determinants of Health Financial Resource Strain: Low Risk (11/09/2024) Overall Financial Resource Strain (CARDIA) Difficulty of Paying Living Expenses: Not hard at all Food Insecurity: No Food Insecurity (11/09/2024) Hunger Vital Sign Worried About Running Out of Food in the Last Year: Never true Ran Out of Food in the Last Year: Not on file Transportation Needs: No Transportation Needs (11/09/2024) Transportation Lack of Transportation (Medical): No Lack of Transportation (Non-Medical): Not on file Physical Activity: Not on file Stress: Not on file Social Connections: Not on file Intimate Partner Violence: Unknown (11/09/2024) Humiliation, Afraid, Rape, and Kick questionnaire Fear of Current or Ex-Partner: No Emotionally Abused: Not on file Physically Abused: Not on file Sexually Abused: Not on file Housing Stability: Low Risk (11/09/2024) Housing Stability Vital Sign Unable to Pay for Housing in the Last Year: Not on file Number of Times Moved in the Last Year: Not on file Homeless in the Last Year: No Family History: No family history on file. Oncology History: Oncology History No history exists. Physical Examination: BP 128/67 Pulse 67 Temp 36.6 ??C (97.9 ??F) Resp 19 Ht 1.575 m (5' 2 ) Wt 70.3 kg (154 lb15.7 oz) SpO2 97% BMI 28.35 kg/m?? Temperature Range: Temp: 36.6 ??C (97.9 ??F) Temp Av.5 ??C (97.7 ??F) Min: 36.2 ??C (97.1 ??F)Max: 36.7 ??C (98.1 ??F) General Appearance: Awake, alert, and in no apparent distress Eyes: Sclera anicteric Neck: Supple. Pulmonary/Chest: Regular respiratory rate, no resp distress Cardiovascular: Regular rate Abdomen: soft, non distended Extremities: No cyanosis, edema, erythema. No rash. Neurologic: Alert and oriented x 3, nonfocal; strength and sensation grossly normal Skin: No rash no lesions. + pallor Labs: Results from last 7 days Lab Units 11/14/2445211/13/24 0443 11/12/24 0444 WBC AUTO 10*3/uL 3.30* 2.60* 2.32* HEMOGLOBIN g/dL 8.5* 8.2* 8.2* HEMATOCRIT % 27.7* 26.4* 25.4* MCV fL 106.9* 109.5* 108.5* PLATELETS AUTO 10*3/uL 113* 36* 17* NEUTROS ABS 10*3/uL 1.8 1.2* 1.0* EOS ABSOLUTE 10*3/uL 0.07 0.04 0.03 BASOS ABSOLUTE 10*3/uL 0.01 0.01 0.00 Results from last 7 days Lab Units 11/14/24 0453 11/13/24 0443 11/10/24 0513 11/09/24 1946 POTASSIUM mmol/L 3.8 3.4* 3.6 3.6 CHLORIDE mmol/L 111* 110* 109* 107 CO2 mmol/L 29 30 33* 37* BUN mg/dL 11 10 20 23 CREATININE mg/dL 0.58* 0.48* 0.76 0.79 CALCIUM mg/dL 8.3* 8.2* 8.8 8.9 TOTAL PROTEIN g/dL -- 5.1* -- 5.9* BILIRUBIN TOTAL mg/dL -- 0.7 -- 1.0 ALK PHOS U/L -- 81 -- 89 ALT U/L -- 12 -- 22 AST U/L -- 12* -- 27 Lab Results Component Value Date INR 1.20 (H) 11/09/2024 PATHOLOGY RESULTS: Imaging Studies: I have reviewed myself the following imaging studies performed in the past 3 days: No X-ray results found for the past [address] results found for the past 3 days No MRI results found for the past 3 days Associated attestation - Betty Edmondson MD - 11/15/2024 1:59 PM EDT Images from the original note were not included. Late Entry, patient was not seen during bedside rounds 11/14/2024 with fellow, Dr Morales. Has follow up scheduled with hem/onc. By using the attestations below, the signing clinician agrees that I have read and verify that thedocumentation has been personally reviewed by me and ensure that the documentation accurately reflects the encounter. GC: I personally DID NOT see this patient on the day of the encounter, performed the frazier portion(s)of the service and participated in the management and confirm the resident's documentation. Please note there may be an additional personal documentation from me. Additional Comments: (as above or edited in note) Betty Edmondson MD [employer]ger Benjamin Shell M.D. Endowed Professor in Hematology Chief of Hematology/Oncology Technician Automatic, Hematology and Medical Oncology Fellowship Hematology/Oncology. Internal Medicine. [place] [facility]. [facility]. Clinic: [phone] Office: [phone] * Hal Bajwa MD - 11/13/2024 6:50 AM EDT Images from the original note were not included. [facility] Medicine Daily Progress Note - 11/13/2024 6:50 AM; Room: [address] [place] [address] Admission: 11/09/2024 6:46 PM; Length of stay: 4 days THE HOSPITALIST TEAM PREFERS TO USE [employer] FOR NON-URGENT COMMUNICATION 7AM- 7PM. IF I DO NOT RESPOND WITHIN 20 MINUTES OR URGENT MATTERS, PLEASE CALL THROUGH THE TECH INTERN. FROM 7PM-7AM, PLEASE PAGE [phone](COVR). Code Status: Full Code Barriers to Discharge: Pancytopenia Expected Discharge Date: 1-2 days Discharge Destination: TBD Overview Patient is seen for evaluation and management of pancytopenia. Subjective Patient seen and examined. patient continues to do well with no acute complaints today. She is hopeful for discharging home today. Platelets are somewhat improved Physical Exam Visit Vitals BP 122/74 (BP Location: Right arm, Patient Position: Lying) Pulse 68 Temp 36.3 ??C (97.3 ??F) (Temporal) Resp 16 Intake/Output Summary (Last 24 hours) at 11/13/2024 0650 Last data filed at 11/12/2024 1741 Gross per 24 hour Intake 1100 ml Output -- Net 1100 ml Estimated body mass index is 28.23 kg/m?? as calculated from the following: Height as of this encounter: 1.575 m (5' 2 ). Weight as of this encounter: 70 kg (154 lb 5.2 oz). Constitutional: NAD, AOx3 Eyes: EOMI, normal conjunctiva Mouth: Moist, no lesions CV: RRR, normal S1-S2, systolic murmur Resp: CTA, no crackles or wheezing Lymph: no appreciable LAD Neck: tender R thyroid with small goiter Abd: Soft, non-tender Extremities: No swelling, 2+ distal pulses Skin : Warm, dry Neuro: AOx3, no focal deficits Psych: Appropriate mood and affect Assessment and Plan Assessment & Plan Pancytopenia (CMS/HCC) -Concerning for B12 deficiency vs iatrogenic vs MDS vs MPN vs malignancy, less likely MAHA process -OSH smear showing rare schistocytes, repeat smear here negative for schistocytes -[id number] activity mildly low which is nonspecific, however patient did receive blood products at OSH -f/u [facility] flow, BMBx results -CT imaging negative for LAD -Did have 5 days nitrofurantoin appx 1 month ago -HemOnc on board, grateful for their input -Daily CBC however minimize phlebotomy as much as possible (re: CMP every Mon/Thurs) -Transfuse for Hgb <7 -Transfuse for Plt <10 or <20 and active bleeding Vitamin B12 deficiency -Low at OSH and received multiple doses IM replacement -Appropriate levels on recheck here Acute encephalopathy -?2/2 UTI vs above process -Aox2 on presentation however improved today -Did have syncopal episode prior to initial presentation -CT of the head negative at outside hospital Acute cystitis without hematuria -Treated with 3 days CTX and levofloxacin 11/07-15 at outside hospital -UA negative -Currently asymptomatic Transaminitis -Elevated at OSH but were unremarkable here -Hyperbilirubinemia, AST>ALT DM2 (diabetes mellitus, type 2) (CMS/HCC) -ISS, ACHS Acquired hypothyroidism -Continue levothyroxine -TSH low with normal T4 -Does have tender thyroid, check US thyroid -On chart review, several changes to liothyronine, check T3 GERD (gastroesophageal reflux disease) -Continue Protonix HLD (hyperlipidemia) -Continue rosuvastatin Anxiety -Continue Celexa Heart murmur -quiet systolic murmur that was not heard on admission -likely this is high output -without schistocytes I do not feel overly compelled to obtain TTE at this point Moderate protein-calorie malnutrition -RD following, see below Nutrition Screen: Clinical Indicators of Malnutrition: reduced energy intake, unintentional weight loss, impaired ability to prepare meals, poor appetite, loss of subcutaneous fat with locations identified, loss of muscle mass with location identified Malnutrition Assessment (Completed by RD) Moderate (non-severe) PCM: Acute Illness: severity of body fat loss (mild depletion), severity of reduced muscle mass (mild depletion), decreased energy intake (<75% for > 7days) Treatment & Intervention Plan: RD to change supplement, monitor intakes and adjust recommendations as needed, recommend ordering snacks, vitamin/medication recommendations Nutrition Goals: intake > 75% meals, intake > 75% supplements, wt maintenance, advance diet, maitain visceral protein Malnutrition Attestation: I attest to the following: I have personally seen this patient. The patient has been assessed for malnutrition as documentation above, and based on the criteria set by the Academy of [employer] and Dietetics and the [place] [employer] Enteral and Parenteral Nutrition, meets the diagnosis for malnutrition. A care plan has been established for this patient. VTE Prophylaxis: Contraindicated due to thrombocytopenia Scheduled Meds citalopram, 20 mg, oral, Nightly ergocalciferol, 50,000 Units, oral, Weekly insulin lispro, 0-5 Units, subcutaneous, TID with meals And insulin lispro, 0-4 Units, subcutaneous, Nightly iron sucrose, 200 mg, intravenous, q24h levothyroxine, 125 mcg, oral, Daily before breakfast liothyronine, 10 mcg, oral, Daily pantoprazole, 40 mg, oral, Daily potassium chloride CR, 20 mEq, oral, q1h rosuvastatin, 5 mg, oral, Nightly sucralfate, 1 g, oral, 4x daily Pertinent Investigations Hematology: Results from last 7 days Lab Units 11/12/2444311/11/24 0734 11/10/2451211/09/241945 WBC AUTO 10*3/uL 2.32* 2.87* < > 3.49* HEMOGLOBIN g/dL 8.2* 8.2* < > 8.4* HEMATOCRIT % 25.4* 25.4* < > 24.8* MCV fL 108.5* 108.1* < > 103.8* PLATELETS AUTO 10*3/uL 17* 19* < > 26* INR -- -- -- 1.20* < > = values in this interval not displayed. Chemistry: Results from last 7 days Lab Units 11/13/2444211/10/2451211/09/241945 SODIUM mmol/L 143 143 142 POTASSIUM mmol/L 3.4* 3.6 3.6 CHLORIDE mmol/L 110* 109* 107 CO2 mmol/L 30 33* 37* BUN mg/dL 10 20 23 CREATININE mg/dL 0.48* 0.76 0.79 GLUCOSE mg/dL 120* 92 93 MAGNESIUM mg/dL -- -- 1.9 CALCIUM mg/dL 8.2* 8.8 8.9 PHOSPHORUS mg/dL -- -- 2.9 Results from last 7 days Lab Units 11/13/2444211/09/241945 AMMONIA umol/L -- 31 AST U/L 12* 27 ALT U/L 12 22 ALK PHOS U/L 81 89 BILIRUBIN TOTAL mg/dL 0.7 1.0 Results from last 7 days Lab Units 11/12/24 2133 11/12/24 1653 11/12/24 1125 11/12/24 0758 11/11/24205611/11/24 1624 POCT GLUCOSE mg/dL 156* 144* 149* 135* 190* 144* Historical Values: (Includes values prior to this admission) Lab Results Component Value Date TSH 0.13 (L) 11/09/2024 T3FREE 3.0 11/12/2024 FREET4 1.41 11/09/2024 Lab Results Component Value Date [id number] 1,113 (H) 11/09/2024 IRON 24 (L) 11/10/2024 TIBC 247 (L) 11/10/2024 Imaging US thyroid Narrative: US THYROID 11/11/2024 3:27 PM CLINICAL INDICATIONS]: Right-sided thyroid enlargement COMPARISON: None. FINDINGS: Right and left thyroid lobes are normal in size and echotexture. The right thyroid lobe measures 3.1 x 1.2 x 0.9 cm and the left thyroid lobe measures 3.3 x 1.5 x 0.9 cm. The isthmus measures 0.2 cm. Gland is heterogeneous. No thyroid nodules are present. No cervical lymphadenopathy is noted. Impression: Small heterogeneous thyroid gland likely sequelae of chronic thyroiditis Electronically signed: David Law. Discharge Planning Expected Discharge Disposition: Home or Self Care () Signed Hal Bajwa MD Hospital Medicine 11/13/2024 6:50 AM * Hal Bajwa MD - 11/12/2024 10:16 AM EDT Images from the original note were not included. [facility] Daily Progress Note - 11/12/2024 10:16 AM; Room: [address] [place], [place] [id number]- Admission: 11/09/2024 6:46 PM; Length of stay: 3 days THE HOSPITALIST TEAM PREFERS TO USE [employer] FOR NON-URGENT COMMUNICATION 7AM- 7PM. IF I DO NOT RESPOND WITHIN 20 MINUTES OR URGENT MATTERS, PLEASE CALL THROUGH THE TECH INTERN. FROM 7PM-7AM, PLEASE PAGE [phone](COVR). Code Status: Full Code Barriers to Discharge: Pancytopenia Expected Discharge Date: 3-4 days Discharge Destination: TBD Overview Patient is seen for evaluation and management of pancytopenia. Subjective Patient seen and examined. patient is doing well today and mentation has seemed to have improved aswell. No episodes of bleeding and patient is asymptomatic today overall. Physical Exam Visit Vitals BP 115/65 Pulse 70 Temp 36.4 ??C (97.5 ??F) Resp 24 No intake or output data in the 24 hours ending 11/12/24 1016 Estimated body mass index is 26.01 kg/m?? as calculated from the following: Height as of this encounter: 1.575 m (5' 2 ). Weight as of this encounter: 64.5 kg (142 lb 3.2 oz). Constitutional: NAD, AOx3 Eyes: EOMI, normal conjunctiva Mouth: Moist, no lesions CV: RRR, normal S1-S2, systolic murmur Resp: CTA, no crackles or wheezing Lymph: no appreciable LAD Neck: tender R thyroid with small goiter Abd: Soft, non-tender Extremities: No swelling, 2+ distal pulses Skin : Warm, dry Neuro: AOx3, no focal deficits Psych: Appropriate mood and affect Assessment and Plan Assessment & Plan Pancytopenia (CMS/HCC) -Concerning for B12 deficiency vs iatrogenic vs MDS vs MPN vs malignancy, less likely MAHA process -OSH smear showing rare schistocytes, repeat smear here negative for schistocytes -f/u [id number] activity, [facility] flow, BMBx results -CT imaging negative for LAD -Did have 5 days nitrofurantoin appx 1 month ago -HemOnc on board, grateful for their input -Daily CBC however minimize phlebotomy as much as possible (re: CMP every Mon/Thurs) -Transfuse for Hgb <7 -Transfuse for Plt <10 or <20 and active bleeding Vitamin B12 deficiency -Low at OSH and received multiple doses IM replacement -Appropriate levels on recheck here Acute encephalopathy -?2/2 UTI vs above process -Aox2 on presentation however improved today -Did have syncopal episode prior to initial presentation -CT of the head negative at outside hospital Acute cystitis without hematuria -Treated with 3 days CTX and levofloxacin 11/07-15 at outside hospital -UA negative -Currently asymptomatic Transaminitis -Elevated at OSH but were unremarkable here -Hyperbilirubinemia, AST>ALT DM2 (diabetes mellitus, type 2) (CMS/HCC) -ISS, ACHS Acquired hypothyroidism -Continue levothyroxine -TSH low with normal T4 -Does have tender thyroid, check US thyroid -On chart review, several changes to liothyronine, check T3 GERD (gastroesophageal reflux disease) -Continue Protonix HLD (hyperlipidemia) -Continue rosuvastatin Anxiety -Continue Celexa Heart murmur -quiet systolic murmur that was not heard on admission -likely this is high output -without schistocytes I do not feel overly compelled to obtain TTE at this point Moderate protein-calorie malnutrition -RD following, see below Nutrition Screen: Clinical Indicators of Malnutrition: reduced energy intake, unintentional weight loss, impaired ability to prepare meals, poor appetite, loss of subcutaneous fat with locations identified, loss of muscle mass with location identified Malnutrition Assessment (Completed by RD) Moderate (non-severe) PCM: Acute Illness: severity of body fat loss (mild depletion), severity of reduced muscle mass (mild depletion), decreased energy intake (<75% for > 7days) Treatment & Intervention Plan: RD to change supplement, monitor intakes and adjust recommendations as needed, recommend ordering snacks, vitamin/medication recommendations Nutrition Goals: intake > 75% meals, intake > 75% supplements, wt maintenance, advance diet, maitain visceral protein Malnutrition Attestation: I attest to the following: I have personally seen this patient. The patient has been assessed for malnutrition as documentation above, and based on the criteria set by the Academy of [employer] and Dietetics and the [place] [employer] Enteral and Parenteral Nutrition, meets the diagnosis for malnutrition. A care plan has been established for this patient. VTE Prophylaxis: Contraindicated due to thrombocytopenia Scheduled Meds citalopram, 20 mg, oral, Nightly insulin lispro, 0-5 Units, subcutaneous, TID with meals And insulin lispro, 0-4 Units, subcutaneous, Nightly iron sucrose, 200 mg, intravenous, q24h levothyroxine, 125 mcg, oral, Daily before breakfast liothyronine, 10 mcg, oral, Daily pantoprazole, 40 mg, oral, Daily rosuvastatin, 5 mg, oral, Nightly sucralfate, 1 g, oral, 4x daily Pertinent Investigations Hematology: Results from last 7 days Lab Units 11/12/24 0444 11/11/24 0734 11/10/24 0513 11/09/241945 WBC AUTO 10*3/uL 2.32* 2.87* < > 3.49* HEMOGLOBIN g/dL 8.2* 8.2* < > 8.4* HEMATOCRIT % 25.4* 25.4* < > 24.8* MCV fL 108.5* 108.1* < > 103.8* PLATELETS AUTO 10*3/uL 17* 19* < > 26* INR -- -- -- 1.20* < > = values in this interval not displayed. Chemistry: Results from last 7 days Lab Units 11/10/24 0513 11/09/241945 SODIUM mmol/L 143 142 POTASSIUM mmol/L 3.6 3.6 CHLORIDE mmol/L 109* 107 CO2 mmol/L 33* 37* BUN mg/dL 20 23 CREATININE mg/dL 0.76 0.79 GLUCOSE mg/dL 92 93 MAGNESIUM mg/dL -- 1.9 CALCIUM mg/dL 8.8 8.9 PHOSPHORUS mg/dL -- 2.9 Results from last 7 days Lab Units 11/09/24 194 AMMONIA umol/L 31 AST U/L 27 ALT U/L 22 ALK PHOS U/L 89 BILIRUBIN TOTAL mg/dL 1.0 Results from last 7 days Lab Units 11/12/24 0758 11/11/24 2057 11/11/24 1624 11/11/24 1113 11/11/24 0707 11/10/242050 POCT GLUCOSE mg/dL 135* 190* 144* 133* 115* 156* Historical Values: (Includes values prior to this admission) Lab Results Component Value Date TSH 0.13 (L) 11/09/2024 FREET4 1.41 11/09/2024 Lab Results Component Value Date [id number] 1,113 (H) 11/09/2024 IRON 24 (L) 11/10/2024 TIBC 247 (L) 11/10/2024 Imaging US thyroid Narrative: US THYROID 11/11/2024 3:27 PM CLINICAL INDICATIONS]: Right-sided thyroid enlargement COMPARISON: None. FINDINGS: Right and left thyroid lobes are normal in size and echotexture. The right thyroid lobe measures 3.1 x 1.2 x 0.9 cm and the left thyroid lobe measures 3.3 x 1.5 x 0.9 cm. The isthmus measures 0.2 cm. Gland is heterogeneous. No thyroid nodules are present. No cervical lymphadenopathy is noted. Impression: Small heterogeneous thyroid gland likely sequelae of chronic thyroiditis Electronically signed: David Law. Discharge Planning Expected Discharge Disposition: Home or Self Care (01) Signed Hal Bajwa MD [facility] 11/12/2024 10:16 AM * Hal Bajwa MD - 11/11/2024 6:52 AM EDT Images from the original note were not included. [facility] Daily Progress Note - 11/11/2024 6:52 AM; Room: [address] [place] [address] Admission: 11/09/2024 6:46 PM; Length of stay: 2 days THE HOSPITALIST TEAM PREFERS TO USE [employer] FOR NON-URGENT COMMUNICATION 7AM- 7PM. IF I DO NOT RESPOND WITHIN 20 MINUTES OR URGENT MATTERS, PLEASE CALL THROUGH THE TECH INTERN. FROM 7PM-7AM, PLEASE PAGE [phone](COVR). Code Status: Full Code Barriers to Discharge: Pancytopenia Expected Discharge Date: 3-4 days Discharge Destination: TBD Overview Patient is seen for evaluation and management of pancytopenia. Subjective Patient seen and examined. Overnight the patient had persistent bleeding from peripheral IV site. She denies any other signs or symptoms of bleeding at this point. She denies lightheadedness, dizziness, shortness of breath, chest pain. She does admit to right sided neck tenderness with mild swelling that she states has been there for a while as she has thyroid issues Physical Exam Visit Vitals BP 93/55 Pulse 53 Temp 36.4 ??C (97.5 ??F) Resp 15 Intake/Output Summary (Last 24 hours) at 11/11/2024 0640 Last data filed at 11/11/2024 0336 Gross per 24 hour Intake 250 ml Output -- Net 250 ml Estimated body mass index is 26.01 kg/m?? as calculated from the following: Height as of this encounter: 1.575 m (5' 2 ). Weight as of this encounter: 64.5 kg (142 lb 3.2 oz). Constitutional: NAD, AOx2 Eyes: EOMI, normal conjunctiva Mouth: Moist, no lesions CV: RRR, normal S1-S2, systolic murmur Resp: CTA, no crackles or wheezing Lymph: no appreciable LAD Neck: tender R thyroid with small goiter Abd: Soft, non-tender Extremities: No swelling, 2+ distal pulses Skin : Warm, dry Neuro: AOx2, no focal deficits Psych: Appropriate mood and affect Assessment and Plan Assessment & Plan Pancytopenia (CMS/HCC) -Concerning for MDS vs MPN vs malignancy, less likely MAHA process -OSH smear showing rare schistocytes, repeat smear here negative for schistocytes -f/u [id number] activity, [facility] flow, BMBx results -CT imaging negative for LAD -HemOnc on board, grateful for their input -Daily CBC however minimize phlebotomy as much as possible (re: BMP every Mon/Thurs) -Transfuse for Hgb <7 -Transfuse for Plt <10 or <20 and active bleeding Acute encephalopathy -?2/2 UTI vs above process -Aox2, reporting delirium that pt herself denies -Did have syncopal episode -CT of the head negative at outside hospital Acute cystitis without hematuria -Treated with CTX at outside hospital -UA negative -Currently asymptomatic DM2 (diabetes mellitus, type 2) (CMS/HCC) -ISS, ACHS Acquired hypothyroidism -Continue levothyroxine -TSH low with normal T4 -Does have tender thyroid, check US thyroid GERD (gastroesophageal reflux disease) -Continue Protonix HLD (hyperlipidemia) -Continue rosuvastatin Anxiety -Continue Celexa Heart murmur -quiet systolic murmur that was not heard on admission -likely this is high output -without schistocytes I do not feel overly compelled to obtain TTE at this point Moderate protein-calorie malnutrition -RD following, see below Nutrition Screen: Clinical Indicators of Malnutrition: reduced energy intake, unintentional weight loss, impaired ability to prepare meals, poor appetite, loss of subcutaneous fat with locations identified, loss of muscle mass with location identified Malnutrition Assessment (Completed by RD) Moderate (non-severe) PCM: Acute Illness: severity of body fat loss (mild depletion), severity of reduced muscle mass (mild depletion), decreased energy intake (<75% for > 7days) Treatment & Intervention Plan: RD to change supplement, monitor intakes and adjust recommendations as needed, recommend ordering snacks, vitamin/medication recommendations Nutrition Goals: intake > 75% meals, intake > 75% supplements, wt maintenance, advance diet, mabriseydain visceral protein Malnutrition Attestation: I attest to the following: I have personally seen this patient. The patient has been assessed for malnutrition as documentation above, and based on the criteria set by the Academy of [employer] and Dietetics and the [place] [employer] Enteral and Parenteral Nutrition, meets the diagnosis for malnutrition. A care plan has been established for this patient. VTE Prophylaxis: Contraindicated due to thrombocytopenia Scheduled Meds citalopram, 20 mg, oral, Daily insulin lispro, 0-5 Units, subcutaneous, TID with meals And insulin lispro, 0-4 Units, subcutaneous, Nightly levothyroxine, 125 mcg, oral, Daily before breakfast liothyronine, 10 mcg, oral, Daily pantoprazole, 40 mg, oral, Daily rosuvastatin, 5 mg, oral, Daily sucralfate, 1 g, oral, 4x daily Pertinent Investigations Hematology: Results from last 7 days Lab Units 11/10/2451211/09/241945 WBC AUTO 10*3/uL 3.48* 3.49* HEMOGLOBIN g/dL 8.7* 8.4* HEMATOCRIT % 25.9* 24.8* MCV fL 107.0* 103.8* PLATELETS AUTO 10*3/uL 24* 26* INR -- 1.20* Chemistry: Results from last 7 days Lab Units 11/10/2451211/09/241945 SODIUM mmol/L 143 142 POTASSIUM mmol/L 3.6 3.6 CHLORIDE mmol/L 109* 107 CO2 mmol/L 33* 37* BUN mg/dL 20 23 CREATININE mg/dL 0.76 0.79 GLUCOSE mg/dL 92 93 MAGNESIUM mg/dL -- 1.9 CALCIUM mg/dL 8.8 8.9 PHOSPHORUS mg/dL -- 2.9 Results from last 7 days Lab Units 11/09/241945 AMMONIA umol/L 31 AST U/L 27 ALT U/L 22 ALK PHOS U/L 89 BILIRUBIN TOTAL mg/dL 1.0 Results from last 7 days Lab Units 11/10/24 2051 11/10/24 1728 11/10/24 1112 11/10/24 0750 11/09/24 2109 POCT GLUCOSE mg/dL 156* 125* 105 108* 156* Historical Values: (Includes values prior to this admission) Lab Results Component Value Date TSH 0.13 (L) 11/09/2024 FREET4 1.41 11/09/2024 Lab Results Component Value Date [id number] 1,113 (H) 11/09/2024 IRON 24 (L) 11/10/2024 TIBC 247 (L) 11/10/[address] guided biopsy bone marrow Narrative: History: Pancytopenia Procedure: 1. CT guided bone marrow aspiration. 2. CT guided bone marrow biopsy. Radiologist: Dr. Rodriguez Anesthesia: Continuous cardiopulmonary monitoring and sedation provided by independent qualified radiology nursing personnel under physician supervision. Medications: 1 mg of Versed and 50 mcg of fentanyl Contrast: None Dose: 178.50 mGy*centimeter = dose length product Complications None. Conscious sedation time: 30 minutes Technique: Risks, benefits, and alternatives were discussed. All questions were answered and informed consent was obtained. All CT scans at this facility use dose modulation, iterative reconstruction, and/or weight based dosing when appropriate to reduce radiation dose to as low as reasonably achievable. All elements of maximal sterile barrier techniques followed including: cap and mask and sterile gown and sterile gloves and a large sterile sheet and hand hygiene and 2% chlorhexidine for cutaneous antiseptics. The patient was placed in the prone position on the CT table, and the left lower back was prepped and draped in a sterile fashion and the skin was infiltrated with 1% lidocaine to the level of the iliac bone periosteum. A small skin serina with an 11 blade was made. Under CT guidance, an 11-gauge bone biopsy needle was advanced in the left iliac bone from a posterior approach, and CT images were obtained and saved in PACS. Using a 10 cc syringe, a bone marrow aspirate was obtained, and the preliminary interpretation by the hematology [facility] revealed adequate spicules. Repeat bone marrow aspirate with a heparinized syringe was obtained. After confirming the presence of adequate spicules, I proceeded for a core biopsy. The 11-gauge needle was advanced using CT guidance in the left iliac bone, and an 11-gauge core biopsy was obtained and submitted in formalin. The needle was removed and hemostasis obtained by manual compression. A dressing was placed. Patient left the angiography suite in stable condition. Impression: Impression: Status post CT-guided bone marrow aspiration and bone marrow biopsy Electronically signed: Scott Rodriguez. Discharge Planning Expected Discharge Disposition: Home or Self Care () Signed Hal Bajwa MD [facility] 11/11/2024 6:52 AM * Kerrie Barba, BRANDON - 11/10/2024 1:29 PM EDT Adult Nutrition Assessment: Name: Andreia Cid Date: 1965 Date of Visit: 11/10/24 Admission Dx: Pancytopenia (CMS/HCC) [D61.818] Reason for assessment: high risk Information obtained from: patient, family, and medical record ( at bedside) PMH: DM 2, hypothyroid, GERD, HLD, anxiety Current Medications: citalopram, 20 mg, oral, Daily insulin lispro, 0-5 Units, subcutaneous, TID with meals And insulin lispro, 0-4 Units, subcutaneous, Nightly levothyroxine, 125 mcg, oral, Daily before breakfast liothyronine, 10 mcg, oral, Daily pantoprazole, 40 mg, oral, Daily rosuvastatin, 5 mg, oral, Daily sucralfate, 1 g, oral, 4x daily Labs: 0 Lab Value Date/Time POCGLU 105 11/10/2024 1112 BUN 20 11/10/2024 0513 CREATININE 0.76 11/10/2024 0513 NA 143 11/10/2024 0513 K 3.6 11/10/2024 0513 PHOS 2.9 11/09/2024 194 MG 1.9 11/09/20241945 HGB 8.7 (L) 11/10/2024 0513 AMMONIA 31 11/09/20241945 WBC 3.48 (L) 11/10/2024 0513 POC glucose 105-156 Allergies: No Known Allergies Nutrition Problems: Swallowing Assessment: No chewing or swallowing problems. Appetite: Poor Cognition: Confusion Nutrition Deficits Prior to Admission: Calories and protein Feeding Skills: has been preparing meals at home. NFPE, completed on (11/10/24): Muscle depletion: Temporalis (head): Mild Deltoid (shoulder): Mild Quadriceps (patellar region, anterior thigh): Mild Gastrocnemius (post-calf region): Mild Adipose depletion: Triceps: Mild Skin Integrity: intact Edema: BL LE edema Other Factors: UTI Nutrition Data/Clinical Indicators of Nutrition Status: Height: 157.5 cm (5' 2 ) Weight: 64.5 kg (142 lb 3.2 oz) BMI (Calculated): 26 Wt Readings from Last 10 Encounters: 11/09/24 64.5 kg (142 lb 3.2 oz) IBW: 50 kg Weight change: reports weight loss 7# over the past month. Last documented weight was 74.8kg 08/25/23 % weight change: -4.7% in one month -13.8% in the past year Severity of weight change: moderate Nutrition Assessment: 11/10/24: The patient was seen today for high risk nutrition assessment due to weight loss and decreased PO intakes. The patient states that her weight loss was intentional after her doctor told her to lose weight. Her replied that she has been confused and has been to sick/weak to eat anything over the past 6-8 weeks. He states she would only take a few bites of eggs or toast in the morning and would skip meals. She reports having abdominal pain for several weeks. Normally follows a regular diet. She does not use oral nutrition supplements. Dietary Orders (From admission, onward) Start Ordered 11/10/24 1400 Regular Diet Diabetic Female (carb 45g/meal) Diet effective now Question Answer Comment Room Service? Yes Carbohydrate restriction: Diabetic Female (carb 45g/meal) 11/10/24 1359 Meal Intakes: 0-25% Nutrition Risk: High Nutrition Needs: Needs based on: ideal body weight (50 kg) Calorie needs: 2456-1861 kcals/day based on Equation: 25-30 kcal/kg Protein needs: 50- 60g/day based on 1-1.2 g/kg Fluid needs: 1500 ml/day based on 30 ml/kg Nutrition Diagnosis: Moderate PCM r/t acute illness as evidenced by <75% energy intake compared to estimated energy needs for >7 days and mild depletion of body fat and muscle mass. Malnutrition Assessment: Assessment Reason for Referral: high risk Nutrition information obtained from:: Patient, Family Clinical Indicators of Malnutrition: reduced energy intake, unintentional weight loss, impaired ability to prepare meals, poor appetite, loss of subcutaneous fat with locations identified, loss of muscle mass with location identified Malnutrition Assessment (Completed by RD) Moderate (non-severe) PCM: Acute Illness: severity of body fat loss (mild depletion), severity of reduced muscle mass (mild depletion), decreased energy intake (<75% for > 7days) Nutritional Problems: Abdominal:: Abdominal pain Nutrition Treatment and Intervention Plan Treatment & Intervention Plan: RD to change supplement, monitor intakes and adjust recommendations as needed, recommend ordering snacks, vitamin/medication recommendations Nutrition Goals: intake > 75% meals, intake > 75% supplements, wt maintenance, advance diet, maitain visceral protein Inflammation: Effectiveness of interventions: pt continues to have decreased intakes Treatment Plan: Diet: Regular, diabetic. Small frequent meals while appetite is poor. Supplements: Boost glucose control 8oz BID (190kcal, 16g protein each) Recommend daily MVI Monitor PO intakes. Monitor weight daily Monitor nutrition labs (potassium, phosphorus and magnesium) Goals: Adequate po intakes (kcals and protein); >75% meals Adherence/tolerance to ONS; >75% supplements Weight maintenance Maintain visceral protein Tolerate diet advancements Nutrition-related labs (magnesium, phosphorus, BMP) wnl To reach the Clinical Dietitian, please utilize [employer] chat Wednesday-Wednesday from 8AM-4PM or call extension [phone]. For weekends (Wednesday-Wednesday) and holidays, the Clinical Dietitian can be reached via pager [phone]) from 9AM-3PM. The Clinical Nutrition Department is unable to respond to [employer] chat messages on Sundays and s. * Hal Bajwa MD - 11/10/2024 11:12 AM EDT Images from the original note were not included. Hospital Medicine Daily Progress Note - 11/10/2024 3:16 PM; Room: [address] [place], [place] [address] Admission: 11/09/2024 6:46 PM; Length of stay: 1 days THE HOSPITALIST TEAM PREFERS TO USE [employer] FOR NON-URGENT COMMUNICATION 7AM- 7PM. IF I DO NOT RESPOND WITHIN 20 MINUTES OR URGENT MATTERS, PLEASE CALL THROUGH THE TECH INTERN. FROM 7PM-7AM, PLEASE PAGE [phone](COVR). Code Status: Full Code Barriers to Discharge: BMBx Expected Discharge Date: 3-4 days Discharge Destination: TBD Overview Patient is seen for evaluation and management of pancytopenia. Subjective Patient seen and examined. AOx2, however in no distress. she denies fever, sweats, chills, lightheadedness, chest pain, shortness of breath, abdominal pain, issues with urination. No signs or symptoms of bleeding. Patient is due for bone marrow biopsy today Physical Exam Visit Vitals BP 122/78 (BP Location: Right arm, Patient Position: Lying) Pulse 62 Temp 36.6 ??C (97.9 ??F) Resp 18 No intake or output data in the 24 hours ending 11/10/24 1516 Estimated body mass index is 26.01 kg/m?? as calculated from the following: Height as of this encounter: 1.575 m (5' 2 ). Weight as of this encounter: 64.5 kg (142 lb 3.2 oz). Constitutional: NAD, AOx2 Eyes: EOMI, normal conjunctiva Mouth: Moist, no lesions CV: RRR, normal S1-S2, no murmurs Resp: CTA, no crackles or wheezing, satting well on 2 L Abd: Soft, non-tender Extremities: No swelling, 2+ distal pulses Skin : Warm, dry Neuro: AOx2, no focal deficits Psych: Appropriate mood and affect Assessment and Plan Assessment & Plan Pancytopenia (CMS/HCC) -Concerning for MDS vs MPN vs malignancy, less likely MAHA process -OSH smear showing rare schistocytes, repeat smear here -Check hemolysis labs, [id number] -HemOnc on board, grateful for their input -Will be undergoing BMBx today -Daily CBC however minimize phlebotomy as much as possible Acute encephalopathy -?2/2 UTI vs above process -Aox2, reporting delirium that pt herself denies -Did have syncopal episode -CT of the head negative at outside hospital Acute cystitis without hematuria -Treated with CTX at outside hospital -Currently asymptomatic DM2 (diabetes mellitus, type 2) (CMS/HCC) -ISS, ACHS Acquired hypothyroidism -Continue levothyroxine -TSH low with normal T4 GERD (gastroesophageal reflux disease) -Continue Protonix HLD (hyperlipidemia) -Continue rosuvastatin Anxiety -Continue Celexa Moderate protein-calorie malnutrition -RD following, see below Nutrition Screen: Clinical Indicators of Malnutrition: reduced energy intake, unintentional weight loss, impaired ability to prepare meals, poor appetite, loss of subcutaneous fat with locations identified, loss of muscle mass with location identified Malnutrition Assessment (Completed by RD) Moderate (non-severe) PCM: Acute Illness: severity of body fat loss (mild depletion), severity of reduced muscle mass (mild depletion), decreased energy intake (<75% for > 7days) Treatment & Intervention Plan: RD to change supplement, monitor intakes and adjust recommendations as needed, recommend ordering snacks, vitamin/medication recommendations Nutrition Goals: intake > 75% meals, intake > 75% supplements, wt maintenance, advance diet, maitain visceral protein Malnutrition Attestation: I attest to the following: I have personally seen this patient. The patient has been assessed for malnutrition as documentation above, and based on the criteria set by the Academy of Nutrition and Dietetics and the [place] [employer] Enteral and Parenteral Nutrition, meets the diagnosis for malnutrition. A care plan has been established for this patient. VTE Prophylaxis: Contraindicated due to thrombocytopenia Scheduled Meds citalopram, 20 mg, oral, Daily insulin lispro, 0-5 Units, subcutaneous, TID with meals And insulin lispro, 0-4 Units, subcutaneous, Nightly levothyroxine, 125 mcg, oral, Daily before breakfast liothyronine, 10 mcg, oral, Daily pantoprazole, 40 mg, oral, Daily rosuvastatin, 5 mg, oral, Daily sucralfate, 1 g, oral, 4x daily Pertinent Investigations Hematology: Results from last 7 days Lab Units 11/10/2451211/09/241945 WBC AUTO 10*3/uL 3.48* 3.49* HEMOGLOBIN g/dL 8.7* 8.4* HEMATOCRIT % 25.9* 24.8* MCV fL 107.0* 103.8* PLATELETS AUTO 10*3/uL 24* 26* INR -- 1.20* Chemistry: Results from last 7 days Lab Units 11/10/2451211/09/241945 SODIUM mmol/L 143 142 POTASSIUM mmol/L 3.6 3.6 CHLORIDE mmol/L 109* 107 CO2 mmol/L 33* 37* BUN mg/dL 20 23 CREATININE mg/dL 0.76 0.79 GLUCOSE mg/dL 92 93 MAGNESIUM mg/dL -- 1.9 CALCIUM mg/dL 8.8 8.9 PHOSPHORUS mg/dL -- 2.9 Results from last 7 days Lab Units 11/09/24 1946 AMMONIA umol/L 31 AST U/L 27 ALT U/L 22 ALK PHOS U/L 89 BILIRUBIN TOTAL mg/dL 1.0 Results from last 7 days Lab Units 11/10/24 1112 11/10/24 0750 11/09/24 2109 POCT GLUCOSE mg/dL 105 108* 156* Historical Values: (Includes values prior to this admission) Lab Results Component Value Date TSH 0.13 (L) 11/09/2024 FREET4 1.41 11/09/2024 Lab Results Component Value Date [id number] 1,113 (H) 11/09/[address] guided biopsy bone marrow Narrative: History: Pancytopenia Procedure: 1. CT guided bone marrow aspiration. 2. CT guided bone marrow biopsy. Radiologist: Dr. Rodriguez Anesthesia: Continuous cardiopulmonary monitoring and sedation provided by independent qualified radiology nursing personnel under physician supervision. Medications: 1 mg of Versed and 50 mcg of fentanyl Contrast: None Dose: 178.50 mGy*centimeter = dose length product Complications None. Conscious sedation time: 30 minutes Technique: Risks, benefits, and alternatives were discussed. All questions were answered and informed consent was obtained. All CT scans at this facility use dose modulation, iterative reconstruction, and/or weight based dosing when appropriate to reduce radiation dose to as low as reasonably achievable. All elements of maximal sterile barrier techniques followed including: cap and mask and sterile gown and sterile gloves and a large sterile sheet and hand hygiene and 2% chlorhexidine for cutaneous antiseptics. The patient was placed in the prone position on the CT table, and the left lower back was prepped and draped in a sterile fashion and the skin was infiltrated with 1% lidocaine to the level of the iliac bone periosteum. A small skin serina with an 11 blade was made. Under CT guidance, an 11-gauge bone biopsy needle was advanced in the left iliac bone from a posterior approach, and CT images were obtained and saved in PACS. Using a 10 cc syringe, a bone marrow aspirate was obtained, and the preliminary interpretation by the hematology [facility] revealed adequate spicules. Repeat bone marrow aspirate with a heparinized syringe was obtained. After confirming the presence of adequate spicules, I proceeded for a core biopsy. The 11-gauge needle was advanced using CT guidance in the left iliac bone, and an 11-gauge core biopsy was obtained and submitted in formalin. The needle was removed and hemostasis obtained by manual compression. A dressing was placed. Patient left the angiography suite in stable condition. Impression: Impression: Status post CT-guided bone marrow aspiration and bone marrow biopsy Electronically signed: Scott Rodriguez. Discharge Planning Expected Discharge Disposition: Home or Self Care () Signed Hal Bajwa MD Hospital Medicine 11/10/2024 3:16 PM documented in this encounter H&P Notes * Cookie Louis MD - 11/10/2024 4:26 AM EDT Case was discussed with the NANCY on 11/09/2024. I agree with the history, physical, assessment, and plan of care. I discussed the findings and therapeutic plan. I agree with the documentation, except for any updates below. Cookie Louis MD * Rebecca Lang CNP - 11/09/2024 11:22 PM EDT Images from the original note were not included. Hospital Medicine History and Physical 11/09/2024 11:41 PM THE HOSPITALIST TEAM PREFERS TO USE [employer] CHAT FOR NON-URGENT COMMUNICATION 7AM- 7PM. IF I DO NOT RESPOND WITHIN 20 MINUTES OR URGENT MATTERS, PLEASE CALL THROUGH THE TECH INTERN. FROM 7PM-7AM, PLEASE PAGE [phone](COVR). Chief Complaint Direct admission with pancytopenia History of Present Illness Andreia Cid is an 59 y.o. female who came from home with past medical history of DM2, hypothyroidism, GERD, hyperlipidemia, anxiety presents as a direct admission from [facility] with pancytopenia. Patient reports that she has had intermittent confusion over the last few days. at bedside also reports a syncopal episode this past Wednesday. Patient denies any prodromal symptoms. She is unclear if she hit her head. At [facility], CT of the head was completed showing no acute intracranial abnormality. CT of the abdomen was completed showing no acute abnormality. Initial labswere completed showing WBC 2.2, RBC 1.26, hemoglobin 5.3, hematocrit 15.6, platelet count 31, INR 1.33, sodium 144, potassium 2.7, chloride 106, BUN 28, creatinine 0.81, calcium 8.3, total bilirubin 1.7, direct bilirubin 0.4, AST 122, ALT 30, alkaline phosphatase 98, troponin 4.2. UA was reportedlyfound positive for UTI and patient was started on ceftriaxone. Patient was given 2 units of blood which did improve hemoglobin. Physician at [facility] reached out to her hematology/oncology team and they recommend transferring patient for further workup and bone marrow biopsy. Review of System and Physical Exam Temp: [36.6 ??C (97.9 ??F)-36.9 ??C (98.5 ??F)] 36.6 ??C (97.9 ??F) Heart Rate: [70] 70 Resp: [21-22] 22 BP: (101-112)/(47-78) 101/47 Physical Exam Vitals reviewed. Constitutional: Appearance: She is normal weight. HENT: Head: Normocephalic and atraumatic. Nose: Nose normal. Mouth/Throat: Mouth: Mucous membranes are dry. Pharynx: Oropharynx is clear. Eyes: Conjunctiva/sclera: Conjunctivae normal. Cardiovascular: Rate and Rhythm: Normal rate and regular rhythm. Pulses: Normal pulses. Heart sounds: Normal heart sounds. Pulmonary: Effort: Pulmonary effort is normal. Breath sounds: Normal breath sounds. Abdominal: General: Abdomen is flat. Bowel sounds are normal. Palpations: Abdomen is soft. Musculoskeletal: General: Normal range of motion. Skin: General: Skin is warm and dry. Capillary Refill: Capillary refill takes less than 2 seconds. Neurological: General: No focal deficit present. Mental Status: She is alert and oriented to person, place, and time. Mental status is at baseline. Psychiatric: Mood and Affect: Mood normal. Review of Systems Constitutional: Positive for fatigue. Negative for chills and diaphoresis. HENT: Negative for congestion and dental problem. Eyes: Negative for photophobia and visual disturbance. Respiratory: Negative for chest tightness and shortness of breath. Gastrointestinal: Positive for nausea and vomiting. Negative for abdominal pain, constipation and diarrhea. Genitourinary: Negative for difficulty urinating and dyspareunia. Musculoskeletal: Negative for arthralgias and back pain. Skin: Negative for color change and pallor. Neurological: Positive for dizziness, syncope, weakness and light-headedness. Negative for seizures, facial asymmetry, speech difficulty, numbness and headaches. Psychiatric/Behavioral: Positive for confusion and decreased concentration. Negative for agitation and behavioral problems. Assessment and Plan Assessment & Plan Pancytopenia ([facility]) - Initial labs at [facility] found to be WBC 2.2, hemoglobin 5.3, platelet count 31 Repeat labs at [facility] show WBC 3.49, hemoglobin 8.4, platelet count 26 -Concern for TTP -Type and screen is been completed -Transfuse for hemoglobin less than 7 and a platelet count less than 10 unless actively bleeding -Hematology/oncology consult -N.p.o. at midnight for bone marrow biopsy Acute encephalopathy - Patient with intermittent confusion as well as a syncopal episode which has since resolved -CT of the head negative at outside hospital -Suspect likely secondary to low hemoglobin Acute cystitis without hematuria - Patient reportedly with a positive UTI at outside hospital and was given Rocephin, patient currently denies any UTI symptoms, will hold on antibiotics at this time DM2 (diabetes mellitus, type 2) ([facility]) - ISS, ACHS Acquired hypothyroidism - Continue levothyroxine GERD (gastroesophageal reflux disease) - Continue Protonix HLD (hyperlipidemia) - Continue rosuvastatin Anxiety - Continue Celexa VTE Prophylaxis: Contraindicated due to thrombocytopenia ----- Focus of this inpatient stay will remain on problems that need acute care setting for care. We will review available studies and will order additional labs, imaging and other studies as appropriate. As needed medicines are ordered as appropriate. VTE Prophylaxis will be ordered as appropriate. Please see above for management plan for individual hospital problems. Home medications are reviewed and will be continued as appropriate. Patient will be continued to be followed during this hospital stay by a member of [facility]. Past Medical History History reviewed. No pertinent past medical history. Past Surgical History History reviewed. No pertinent surgical history. Social History Social History Socioeconomic History Marital status: Spouse name: Not on file Number of children: Not on file Years of education: Not on file Highest education level: Not on file Occupational History Not on file Tobacco Use Smoking status: Former Current packs/day: 1.00 Average packs/day: 1 pack/day for 48.4 years (48.4 ttl pk-yrs) Types: Cigarettes Start date: 06/28/1976 Smokeless tobacco: Never Vaping Use Vaping status: Never Used Substance and Sexual Activity Alcohol use: Never Drug use: Never Sexual activity: Not on file Other Topics Concern Not on file Social History Narrative Not on file Social Determinants of Health Financial Resource Strain: Low Risk (11/09/2024) Overall Financial Resource Strain (CARDIA) Difficulty of Paying Living Expenses: Not hard at all Food Insecurity: No Food Insecurity (11/09/2024) Hunger Vital Sign Worried About Running Out of Food in the Last Year: Never true Ran Out of Food in the Last Year: Not on file Transportation Needs: No Transportation Needs (11/09/2024) Transportation Lack of Transportation (Medical): No Lack of Transportation (Non-Medical): Not on file Physical Activity: Not on file Stress: Not on file Social Connections: Not on file Intimate Partner Violence: Unknown (11/09/2024) Humiliation, Afraid, Rape, and Kick questionnaire Fear of Current or Ex-Partner: No Emotionally Abused: Not on file Physically Abused: Not on file Sexually Abused: Not on file Housing Stability: Low Risk (11/09/2024) Housing Stability Vital Sign Unable to Pay for Housing in the Last Year: Not on file Number of Times Moved in the Last Year: Not on file Homeless in the Last Year: No Family History family history is not on file. Allergies has No Known Allergies. Prior to Admission Medications Medications Prior to Admission Medication Sig Dispense Refill Last Dose citalopram (CeleXA) 20 mg tablet Take 20 mg by mouth in the morning. clonazePAM (KlonoPIN) 2 mg tablet Take 2 mg by mouth if needed in the morning, at noon, and at bedtime for anxiety. May take 2-3 tablets daily esomeprazole (NexIUM) [address] capsule Take 40 mg by mouth before breakfast. Do not open capsule. insulin glargine (Lantus) 100 unit/mL injection vial Inject 20 Units under the skin at bedtime. levothyroxine (Synthroid, Levoxyl) 125 mcg tablet Take 125 mcg by mouth before breakfast. liothyronine (Cytomel) 5 mcg tablet Take 2 tablets by mouth in the morning. rosuvastatin (Crestor) 5 mg tablet Take 5 mg by mouth in the morning. sucralfate (Carafate) 100 mg/mL suspension Take 10 mL by mouth four times daily. X14 days Labs Labs Reviewed COMPREHENSIVE METABOLIC PANEL - Abnormal Result Value Sodium 142 Potassium 3.6 Chloride 107 CO2 37 (*) Anion Gap 2 (*) BUN 23 Creatinine 0.79 BUN/Creatinine Ratio 29.1 Glucose 93 Calcium 8.9 AST 27 ALT (SGPT) 22 Alkaline Phosphatase 89 Total Protein 5.9 (*) Albumin 4.0 Total Bilirubin 1.0 eGFR 85.0 PROTIME-INR - Abnormal Protime 15.1 (*) INR 1.20 (*) CBC WITH AUTO DIFFERENTIAL - Abnormal Auto WBC 3.49 (*) RBC 2.39 (*) Hemoglobin 8.4 (*) Hematocrit 24.8 (*) MCV 103.8 (*) MCH 35.1 (*) MCHC 33.9 Platelets 26 (*) nRBC % 2.9 (*) Immature Platelet Fraction % 8.0 (*) VENOUS BLOOD GAS WITH IONIZED CALCIUM - Abnormal pH, Krystian 7.43 (*) pCO2, Krystian 44 pO2, Krystian 45 HCO3, Venous 29.2 Calcium, Ion 1.24 O2 Sat, Krystian 75.0 Base Excess, Krystian 4.2 CK TOTAL AND CKMB - Abnormal Total CK 43.0 CK-MB Index 3.0 (*) CK-MB 1.3 VITAMIN B12 - Abnormal Vitamin B-12 1,113 (*) TSH3 REFLEX TO FT4 - Abnormal TSH 0.13 (*) VITAMIN D 25 HYDROXY - Abnormal Vit D, 25-Hydroxy 10.2 (*) POCT GLUCOSE METER UNSOLICITED RESULTS - Abnormal Glucose POC 156 (*) Narrative: Waived Testing in the ED is performed under the ED CLIA certificate #[id number]. MANUAL DIFFERENTIAL - Abnormal Immature Granulocytes % 3.4 (*) Neutrophils Absolute 1.4 (*) Lymphocytes Absolute 1.63 Monocytes Absolute 0.29 Eosinophils Absolute 0.00 Basophils Absolute 0.01 Anisocytosis Moderate Poikilocytes Slight Polychromasia Slight Neutrophils % 41.3 Lymphocytes % 46.7 (*) Monocytes % 8.3 Eosinophils % 0.0 Basophils % 0.3 Immature Granulocytes Absolute 0.12 MAGNESIUM - Normal Magnesium 1.9 PHOSPHORUS - Normal Phosphorus 2.9 LACTIC ACID, PLASMA - Normal Lactate 0.7 AMMONIA - Normal Ammonia 31 HIGH SENSITIVITY TROPONIN I - Normal High Sensitivity Troponin I 7 T4, FREE - Normal Free T4 1.41 BLOOD CULTURE BLOOD CULTURE CBC AND DIFFERENTIAL Narrative: The following orders were created for panel order CBC and differential. Procedure Abnormality Status --------- ------ CBC auto differential[[id number]] Abnormal Final result Manual Differential[[id number]] Abnormal Final result Please view results for these tests on the individual orders. TYPE AND SCREEN ABO Grouping O Rh Type POS Ab Scrn POS ANTI IGG JUAN MANUEL Anti IgG JUAN MANUEL NEG ANTIBODY IDENTIFICATION Antibody ID E POCT GLUCOSE METER Imaging ECG 12 lead Sinus bradycardia Otherwise normal ECG No previous ECGs available Confirmed by Amadou Gage ([id number]) on 11/09/2024 9:47:55 PM [facility] 11/09/2024 11:41 PM documented in this encounter Consult Notes * Kevin Morales MD - 11/11/2024 3:09 PM EDT Images from the original note were not included. HEMATOLOGY and MEDICAL ONCOLOGY: [facility] ([facility]) MD Dr. Юлия Mehta MD Patient name: Andreia Cid Patient Today's Date and Time: 11/11/2024, 3:09 PM Admission Date: 11/09/2024 Impression: New onset pancytopenia Peripheral smear showed pancyopenia, LDH high, Haptoglobin low, bili was slightly elevated at [facility], normal here. Altered mental status, resolved here Macrocytosis Hypothyroidism DM2 Anxiety Recommendations: Bone marrow biopsy done yesterday, initial eval did not show schistocytes, blasts or promyelocytes.LDH high, Haptoglobin is low, retic count is normal, Sneha negative. PN flow cytometry, cold agglutinins and myeloma work up pending. Follow BM biopsy report. Iron levels, B12 and Folate levels are adequate. ADAMTS [address] C/A/P negative for LAD to r/o lymphoma due to elevated LDH. Continue to monitor Hb with transfusion for Hb<7, PLT<10,000 or PLT<20,000 with bleeding. Will continue to follow. Kevin oMrales MD PGY-4 Hematology & Oncology Fellow Inpatient Hematology/Oncology Fellow availability Wednesday - 830am-500pm, Wednesday 830am-430pm and Wednesday 830am-1200pm During these hours, Please contact Hematology/Oncology Fellow through [employer] Chat first For Hematology Oncology needs on weekends and after hours, please page the on- call fellow through the hospital spreader operator automatic. Subjective Reason for consultation / Chief complaint: Pancytopenia History of Present Illness Andreia Cid is a 59 y.o.-year-old female with PMH of DM2, dyslipidemia, hypothyroidism and anxiety who was admitted to [facility] due to confusion and weakness for the past 4-6 weeks. Spouseat bedside reports that she had been confused ON and OFF, although she is completely alert and oriented today. CT Head at [facility] was unremarkable, CT A/P was unremarkable. She was noted to have pancytopenia with WBC 2.2, Hb 5.3 and PLT 31, for which she was transferred to [facility]. Her blood work up available from 2019 showed normal counts. Pt reports that she had recently blood work up done and it was normal. We are waiting on records to be faxed. She reports fatigue for past few weeks. She denies blood in stool or urine, or vomiting blood. She denies bruising. She had a colonoscopy around 5 years ago which was normal. Blood work up done here showed WBC 3.49 with neutrophil count 1.4, Hb 8.4, MCV 103.8, INR 1.20, LFTs normal, TSH 0.13, LD 3489, Haptoglobin <3.5, peripheral smear showed leukopenia, anemia and thrombocytopenia without specific cell type. Interval History: Pt is doing well. Spouse reports she has trouble recalling certain events. She is alert and oriented. Objective Past Medical History: History reviewed. No pertinent past medical history. Past Surgical History: History reviewed. No pertinent surgical history. Medications: Scheduled: citalopram, 20 mg, oral, Daily insulin lispro, 0-5 Units, subcutaneous, TID with meals And insulin lispro, 0-4 Units, subcutaneous, Nightly iron sucrose, 200 mg, intravenous, q24h levothyroxine, 125 mcg, oral, Daily before breakfast liothyronine, 10 mcg, oral, Daily pantoprazole, 40 mg, oral, Daily rosuvastatin, 5 mg, oral, Daily sucralfate, 1 g, oral, 4x daily Infusions: Social History: Social History Socioeconomic History Marital status: Spouse name: None Number of children: None Years of education: None Highest education level: None Occupational History None Tobacco Use Smoking status: Former Current packs/day: 1.00 Average packs/day: 1 pack/day for 48.4 years (48.4 ttl pk-yrs) Types: Cigarettes Start date: 06/28/1976 Smokeless tobacco: Never Vaping Use Vaping status: Never Used Substance and Sexual Activity Alcohol use: Never Drug use: Never Sexual activity: None Other Topics Concern None Social History Narrative None Social Determinants of Health Financial Resource Strain: Low Risk (11/09/2024) Overall Financial Resource Strain (CARDIA) Difficulty of Paying Living Expenses: Not hard at all Food Insecurity: No Food Insecurity (11/09/2024) Hunger Vital Sign Worried About Running Out of Food in the Last Year: Never true Ran Out of Food in the Last Year: Not on file Transportation Needs: No Transportation Needs (11/09/2024) Transportation Lack of Transportation (Medical): No Lack of Transportation (Non-Medical): Not on file Physical Activity: Not on file Stress: Not on file Social Connections: Not on file Intimate Partner Violence: Unknown (11/09/2024) Humiliation, Afraid, Rape, and Kick questionnaire Fear of Current or Ex-Partner: No Emotionally Abused: Not on file Physically Abused: Not on file Sexually Abused: Not on file Housing Stability: Low Risk (11/09/2024) Housing Stability Vital Sign Unable to Pay for Housing in the Last Year: Not on file Number of Times Moved in the Last Year: Not on file Homeless in the Last Year: No Family History: No family history on file. Oncology History: Oncology History No history exists. Physical Examination: BP 97/55 Pulse 59 Temp 36.4 ??C (97.5 ??F) Resp 15 Ht 1.575 m (5' 2 ) Wt 64.5 kg (142 lb 3.2 oz) SpO2 96% BMI 26.01 kg/m?? Temperature Range: Temp: 36.4 ??C (97.5 ??F) Temp Av.6 ??C (97.9 ??F) Min: 36.4 ??C (97.5 ??F)Max: 36.8 ??C (98.2 ??F) General Appearance: Awake, alert, and in no apparent distress Eyes: Sclera anicteric Neck: Supple. Pulmonary/Chest: Regular respiratory rate, no resp distress Cardiovascular: Regular rate Abdomen: soft, non distended Extremities: No cyanosis, edema, erythema. No rash. Neurologic: Alert and oriented x 3, nonfocal; strength and sensation grossly normal Skin: No rash no lesions. + pallor Labs: Results from last 7 days Lab Units 11/11/24 0734 11/10/2451211/09/241945 WBC AUTO 10*3/uL 2.87* 3.48* 3.49* HEMOGLOBIN g/dL 8.2* 8.7* 8.4* HEMATOCRIT % 25.4* 25.9* 24.8* MCV fL 108.1* 107.0* 103.8* PLATELETS AUTO 10*3/uL 19* 24* 26* NEUTROS ABS 10*3/uL 1.1* -- 1.4* EOS ABSOLUTE 10*3/uL 0.01 -- 0.00 BASOS ABSOLUTE 10*3/uL 0.01 -- 0.01 Results from last 7 days Lab Units 11/10/2451211/09/241945 POTASSIUM mmol/L 3.6 3.6 CHLORIDE mmol/L 109* 107 CO2 mmol/L 33* 37* BUN mg/dL 20 23 CREATININE mg/dL 0.76 0.79 CALCIUM mg/dL 8.8 8.9 TOTAL PROTEIN g/dL -- 5.9* BILIRUBIN TOTAL mg/dL -- 1.0 ALK PHOS U/L -- 89 ALT U/L -- 22 AST U/L -- 27 Lab Results Component Value Date INR 1.20 (H) 11/09/2024 PATHOLOGY RESULTS: Imaging Studies: I have reviewed myself the following imaging studies performed in the past 3 days: No X-ray results found for the past [address] chest w IV contrast Result Date: 11/11/2024 * No acute findings in the chest. * No lymphadenopathy. Electronically signed: Yordy Brothers MD. IR CT guided biopsy bone marrow Result Date: 11/10/2024 Impression: Status post CT-guided bone marrow aspiration and bone marrow biopsy Electronically signed: Scott Leiwerner. No MRI results found for the past 3 days Associated attestation - Haroldo Brown MD - 11/11/2024 6:50 PM EDT I performed a history and physical examination of the patient and discussed his management with theresident. I reviewed the resident???s note and agree with the documented findings and plan of care. Aaron Brown MD [facility] [place]ematology [place] [address] * Kevin Morales MD - 11/10/2024 11:08 AM EDTAssociated Order(s): IP CONSULT TO HEMATOLOGY ONCOLOGY Images from the original note were not included. HEMATOLOGY and MEDICAL ONCOLOGY: [facility] ([facility] MD Dr. Юлия Mehta MD Patient name: Andreia Cid Patient Today's Date and Time: 11/10/2024, 11:08 AM Admission Date: 11/09/2024 Impression: New onset pancytopenia Peripheral smear showed pancyopenia, LDH high, Haptoglobin low, bili was slightly elevated at [facility], normal here. Altered mental status, resolved here Macrocytosis Hypothyroidism DM2 Anxiety Recommendations: We suspect MPS given pancytopenia. We have ordered BM biopsy which will be done today. Meanwhile, continue to monitor Hb with transfusion for Hb<7, PLT<10,000 or PLT<20,000 with bleeding. Check iron levels, Ferritin, B12 and Folate. ADAMTS 13 activity pending. Check retic count, PNH screen. Kevin Morales MD PGY-4 Hematology & Oncology Fellow Inpatient Hematology/Oncology Fellow availability Wednesday - 830am-500pm, Wednesday 830am-430pm and Wednesday 830am-1200pm During these hours, Please contact Hematology/Oncology Fellow through [employer] Chat first For Hematology Oncology needs on weekends and after hours, please page the on- call fellow through the hospital spreader operator automatic. Subjective Reason for consultation / Chief complaint: Pancytopenia History of Present Illness Andreia Cid is a 59 y.o.-year-old female with PMH of DM2, dyslipidemia, hypothyroidism and anxiety who was admitted to [facility] due to confusion and weakness for the past 4-6 weeks. Spouseat bedside reports that she had been confused ON and OFF, although she is completely alert and oriented today. CT Head at [facility] was unremarkable, CT A/P was unremarkable. She was noted to have pancytopenia with WBC 2.2, Hb 5.3 and PLT 31, for which she was transferred to [facility]. Her blood work up available from 2019 showed normal counts. Pt reports that she had recently blood work up done and it was normal. We are waiting on records to be faxed. She reports fatigue for past few weeks. She denies blood in stool or urine, or vomiting blood. She denies bruising. She had a colonoscopy around 5 years ago which was normal. Blood work up done here showed WBC 3.49 with neutrophil count 1.4, Hb 8.4, MCV 103.8, INR 1.20, LFTs normal, TSH 0.13, LD 3489, Haptoglobin <3.5, peripheral smear showed leukopenia, anemia and thrombocytopenia without specific cell type. Objective Past Medical History: History reviewed. No pertinent past medical history. Past Surgical History: History reviewed. No pertinent surgical history. Medications: Scheduled: citalopram, 20 mg, oral, Daily insulin lispro, 0-5 Units, subcutaneous, TID with meals And insulin lispro, 0-4 Units, subcutaneous, Nightly levothyroxine, 125 mcg, oral, Daily before breakfast liothyronine, 10 mcg, oral, Daily pantoprazole, 40 mg, oral, Daily rosuvastatin, 5 mg, oral, Daily sucralfate, 1 g, oral, 4x daily Infusions: Social History: Social History Socioeconomic History Marital status: Spouse name: None Number of children: None Years of education: None Highest education level: None Occupational History None Tobacco Use Smoking status: Former Current packs/day: 1.00 Average packs/day: 1 pack/day for 48.4 years (48.4 ttl pk-yrs) Types: Cigarettes Start date: 06/28/1976 Smokeless tobacco: Never Vaping Use Vaping status: Never Used Substance and Sexual Activity Alcohol use: Never Drug use: Never Sexual activity: None Other Topics Concern None Social History Narrative None Social Determinants of Health Financial Resource Strain: Low Risk (11/09/2024) Overall Financial Resource Strain (CARDIA) Difficulty of Paying Living Expenses: Not hard at all Food Insecurity: No Food Insecurity (11/09/2024) Hunger Vital Sign Worried About Running Out of Food in the Last Year: Never true Ran Out of Food in the Last Year: Not on file Transportation Needs: No Transportation Needs (11/09/2024) Transportation Lack of Transportation (Medical): No Lack of Transportation (Non-Medical): Not on file Physical Activity: Not on file Stress: Not on file Social Connections: Not on file Intimate Partner Violence: Unknown (11/09/2024) Humiliation, Afraid, Rape, and Kick questionnaire Fear of Current or Ex-Partner: No Emotionally Abused: Not on file Physically Abused: Not on file Sexually Abused: Not on file Housing Stability: Low Risk (11/09/2024) Housing Stability Vital Sign Unable to Pay for Housing in the Last Year: Not on file Number of Times Moved in the Last Year: Not on file Homeless in the Last Year: No Family History: No family history on file. Oncology History: Oncology History No history exists. Physical Examination: BP 133/79 Pulse 67 Temp 36.6 ??C (97.9 ??F) Resp 19 Ht 1.575 m (5' 2 ) Wt 64.5 kg (142 lb3.2 oz) SpO2 100% BMI 26.01 kg/m?? Temperature Range: Temp: 36.6 ??C (97.9 ??F) Temp Av.7 ??C (98.1 ??F) Min: 36.6 ??C (97.9 ??F)Max: 36.9 ??C (98.5 ??F) General Appearance: Awake, alert, and in no apparent distress Eyes: Sclera anicteric Neck: Supple. Pulmonary/Chest: Regular respiratory rate, no resp distress Cardiovascular: Regular rate Abdomen: soft, non distended Extremities: No cyanosis, edema, erythema. No rash. Neurologic: Alert and oriented x 3, nonfocal; strength and sensation grossly normal Skin: No rash no lesions. + pallor Labs: Results from last 7 days Lab Units 11/10/24 0513 11/09/24 194 WBC AUTO 10*3/uL 3.48* 3.49* HEMOGLOBIN g/dL 8.7* 8.4* HEMATOCRIT % 25.9* 24.8* MCV fL 107.0* 103.8* PLATELETS AUTO 10*3/uL 24* 26* NEUTROS ABS 10*3/uL -- 1.4* EOS ABSOLUTE 10*3/uL -- 0.00 BASOS ABSOLUTE 10*3/uL -- 0.01 Results from last 7 days Lab Units 11/10/24 0513 11/09/241945 POTASSIUM mmol/L 3.6 3.6 CHLORIDE mmol/L 109* 107 CO2 mmol/L 33* 37* BUN mg/dL 20 23 CREATININE mg/dL 0.76 0.79 CALCIUM mg/dL 8.8 8.9 TOTAL PROTEIN g/dL -- 5.9* BILIRUBIN TOTAL mg/dL -- 1.0 ALK PHOS U/L -- 89 ALT U/L -- 22 AST U/L -- 27 Lab Results Component Value Date INR 1.20 (H) 11/09/2024 PATHOLOGY RESULTS: Imaging Studies: I have reviewed myself the following imaging studies performed in the past 3 days: No X-ray results found for the past [address] results found for the past 3 days No MRI results found for the past 3 days Associated attestation - Юлия Guerra MD - 11/10/2024 4:10 PM EDT By using the attestations below, the signing clinician agrees that I have read and verify that thedocumentation has been personally reviewed by me and ensure that the documentation accurately reflects the encounter. As noted by Dr. Andrew OLIVERA: I personally saw this patient on the day of the encounter, performed the frazier portion(s) of the service and participated in the management and confirm the resident's documentation. Please note there may be an additional personal documentation from me. Additional Comments: Patient is a 59-year-old admitted in [place] since Wednesday with pancytopenia , mild neutropenia [id number] and (confusion which currently is fully resolved) Patients records from [place] is currently pending Thereby the tempo of the pancytopenia unknown Patient was transfused The pancytopenia Personally discussed with pathology and no evidence of schistocytes blast or promyelocytes on the smear. Personally discussed with pathology and radiology and set up a bone marrow expeditiously and also discussed with pathology with no initial pointers on the bone marrow smear from today as well No evidence of nutritional deficiency like B12 folate leading to the hemolysis as B12 level was high unclear if she was repleted in [place] Will add a comprehensive workup not limited to consumptive disorders, production disorders( bone marrow ) and peripheral destruction Independently with LDH elevated and haptoglobin reduced and bilirubin normal she did have Sneha which was negative,. We will expand that workup to evaluate for Sneha negative hemolysis and PNH. Ferritin was normal thereby ruling out HLH Will get scans from [place]. Will add CT of the chest Reticulocyte count added as well No evidence of schistocytes on smear and personally discussed with pathology As data unfold for recommendations will be made Patient's PT marginal and fibrinogen and PTT normal as well Patient seen for the first time today after transfer from [place] and appreciate radiology pathology hospitalists for expeditious workup which is currently underway . We will Follow along Юлия Guerra MD documented in this encounter Miscellaneous Notes * Care Plan - Sulema Ku RN - 11/14/2024 11:52 AM EDT The patient is Moderately Stable - Low risk of patient condition declining or worsening The patient's goals for the shift include sleep The clinical goals for the shift include vss, improved labs , free from falls, comfort, sleep * Care Plan - Ebony Rojas RN - 11/14/2024 1:03 AM EDT The patient is Moderately Stable - Low risk of patient condition declining or worsening The patient's goals for the shift include sleep The clinical goals for the shift include VSS, improved labs, free from falls, comfort, sleep * Assessment & Plan Note - Hal Bajwa MD - 11/13/2024 7:00 AM EDT Associated Problem(s): Pancytopenia (CMS/HCC) -Concerning for B12 deficiency vs iatrogenic vs MDS vs MPN vs malignancy, less likely MAHA process -OSH smear showing rare schistocytes, repeat smear here negative for schistocytes -[id number] activity mildly low which is nonspecific, however patient did receive blood products at OSH -f/u PNH flow, BMBx results -CT imaging negative for LAD -Did have 5 days nitrofurantoin appx 1 month ago -HemOnc on board, grateful for their input -Daily CBC however minimize phlebotomy as much as possible (re: CMP every Mon/Thurs) -Transfuse for Hgb <7 -Transfuse for Plt <10 or <20 and active bleeding * Assessment & Plan Note - Hal Bajwa MD - 11/13/2024 6:50 AM EDT Associated Problem(s): Acute cystitis without hematuria -Treated with 3 days CTX and levofloxacin 11/07-15 at outside hospital -UA negative -Currently asymptomatic * Assessment & Plan Note - Hal Bajwa MD - 11/13/2024 6:50 AM EDT Associated Problem(s): Transaminitis -Elevated at OSH but were unremarkable here -Hyperbilirubinemia, AST>ALT * Assessment & Plan Note - Hal Bajwa MD - 11/13/2024 6:50 AM EDT Associated Problem(s): DM2 (diabetes mellitus, type 2) ([facility]) -ISS, ACHS * Assessment & Plan Note - Hal Bajwa MD - 11/13/2024 6:50 AM EDT Associated Problem(s): Acquired hypothyroidism -Continue levothyroxine -TSH low with normal T4 -Does have tender thyroid, check US thyroid -On chart review, several changes to liothyronine, check T3 * Assessment & Plan Note - Hal Bajwa MD - 11/13/2024 6:50 AM EDT Associated Problem(s): GERD (gastroesophageal reflux disease) -Continue Protonix * Assessment & Plan Note - Hal Bajwa MD - 11/13/2024 6:50 AM EDT Associated Problem(s): HLD (hyperlipidemia) -Continue rosuvastatin * Assessment & Plan Note - Hal Bajwa MD - 11/13/2024 6:50 AM EDT Associated Problem(s): Anxiety -Continue Celexa * Assessment & Plan Note - Hal Bajwa MD - 11/13/2024 6:50 AM EDT Associated Problem(s): Heart murmur -quiet systolic murmur that was not heard on admission -likely this is high output -without schistocytes I do not feel overly compelled to obtain TTE at this point * Assessment & Plan Note - Hal Bajwa MD - 11/13/2024 6:50 AM EDT Associated Problem(s): Moderate protein-calorie malnutrition -RD following, see below * Assessment & Plan Note - Hal Bajwa MD - 11/13/2024 6:50 AM EDT Associated Problem(s): Vitamin B12 deficiency -Low at OSH and received multiple doses IM replacement -Appropriate levels on recheck here * Assessment & Plan Note - Hal Bajwa MD - 11/13/2024 6:50 AM EDT Associated Problem(s): Acute encephalopathy -?2/2 UTI vs above process -Aox2 on presentation however improved today -Did have syncopal episode prior to initial presentation -CT of the head negative at outside hospital * Care Plan - Justino Ledezma RN - 11/12/2024 11:44 PM EDT The patient is Moderately Stable - Low risk of patient condition declining or worsening The patient's goals for the shift include sleep The clinical goals for the shift include VSS, improved labs, free from falls, comfort, sleep Problem: Neurosensory - Adult Goal: Achieves stable or improved neurological status Outcome: Progressing Problem: Neurosensory - Adult Goal: Achieves maximal functionality and self care Outcome: Progressing Problem: Respiratory - Adult Goal: Achieves optimal ventilation and oxygenation Outcome: Progressing Problem: Cardiovascular - Adult Goal: Maintains optimal cardiac output and hemodynamic stability Outcome: Progressing Goal: Absence of cardiac dysrhythmias or at baseline Outcome: Progressing Problem: Skin/Tissue Integrity - Adult Goal: Skin integrity remains intact Outcome: Progressing Problem: Musculoskeletal - Adult Goal: Return mobility to safest level of function Outcome: Progressing Problem: Musculoskeletal - Adult Goal: Return ADL status to a safe level of function Outcome: Progressing Problem: Gastrointestinal - Adult Goal: Minimal or absence of nausea and vomiting Outcome: Progressing Problem: Gastrointestinal - Adult Goal: Maintains or returns to baseline bowel function Outcome: Progressing Problem: Gastrointestinal - Adult Goal: Maintains adequate nutritional intake Outcome: Progressing Problem: Genitourinary - Adult Goal: Absence of urinary retention Outcome: Progressing Problem: Infection - Adult Goal: Absence of infection at discharge Outcome: Progressing Flowsheets (Taken 11/12/20242029) Absence of infection at discharge: Assess and monitor for signs and symptoms of infection Monitor lab/diagnostic results Monitor all insertion sites i.e., indwelling lines, tubes and drains Administer medications as ordered Instruct and encourage patient and family to use good hand hygiene technique Identify and instruct in appropriate isolation precautions for identified infection/condition Problem: Infection - Adult Goal: Absence of infection during hospitalization Outcome: Progressing Problem: Infection - Adult Goal: Absence of fever/infection during anticipated neutropenic period Outcome: Progressing Flowsheets (Taken 11/12/20242029) Absence of fever/infection during anticipated neutropenic period: Monitor white blood cell count Problem: Metabolic/Fluid and Electrolytes - Adult Goal: Electrolytes maintained within normal limits Outcome: Progressing Flowsheets (Taken 11/12/20242029) Electrolytes maintained within normal limits: Monitor response to electrolyte replacements, including repeat lab results as appropriate Monitor labs and assess patient for signs and symptoms of electrolyte imbalances Administer electrolyte replacement as ordered Instruct patient on fluid and nutrition restrictions as appropriate Goal: Hemodynamic stability and optimal renal function maintained Outcome: Progressing Flowsheets (Taken 11/12/20242029) Hemodynamic stability and optimal renal function maintained: Monitor labs and assess for signs and symptoms of volume excess or deficit Monitor intake, output and patient weight Monitor response to interventions for patient's volume status, including labs, urine output, blood pressure (other measures as available) Encourage oral intake as appropriate Instruct patient on fluid and nutrition restrictions as appropriate Goal: Glucose maintained within prescribed range Outcome: Progressing Flowsheets (Taken 11/12/20242029) Glucose maintained within prescribed range: Monitor blood glucose as ordered Assess for signs and symptoms of hyperglycemia and hypoglycemia Problem: Hematologic - Adult Goal: Maintains hematologic stability Outcome: Progressing Flowsheets (Taken 11/12/20242029) Maintains hematologic stability: Assess for signs and symptoms of bleeding or hemorrhage Monitor labs for bleeding or clotting disorders Administer blood products/factors as ordered Problem: Pain - Adult Goal: Verbalizes/displays adequate comfort level or baseline comfort level Outcome: Progressing Problem: Safety - Adult Goal: Free from fall injury Outcome: Progressing Flowsheets (Taken 11/12/20242029) Free from fall injury: Assess patient frequently for physical needs Identify cognitive and physical deficits and behaviors that affect risk of falls [place] fall precautions as indicated by assessment Educate patient/family on patient safety, including physical limitations Instruct patient to call for assistance with activity based on assessment Modify environment to reduce risk of injury Problem: Discharge Planning Goal: Discharge to home or other facility with appropriate resources Outcome: Progressing Problem: Chronic Conditions and Co-morbidities Goal: Patient's chronic conditions and co-morbidity symptoms are monitored and maintained or improved Outcome: Progressing Flowsheets (Taken 11/12/20242029) Care Plan - Patient's Chronic Conditions and Co-Morbidity Symptoms are Monitored and Maintained or Improved: Monitor and assess patient's chronic conditions and comorbid symptoms for stability, deterioration,or improvement Collaborate with multidisciplinary team to address chronic and comorbid conditions and prevent exacerbation or deterioration Update acute care plan with appropriate goals if chronic or comorbid symptoms are exacerbated and prevent overall improvement and discharge * Assessment & Plan Note - Hal Bajwa MD - 11/12/2024 12:41 PM EDT Associated Problem(s): Acute encephalopathy -?2/2 UTI vs above process -Aox2 on presentation however improved today -Did have syncopal episode prior to initial presentation -CT of the head negative at outside hospital * Assessment & Plan Note - Hal Bajwa MD - 11/12/2024 10:40 AM EDT Associated Problem(s): Acute cystitis without hematuria -Treated with 3 days CTX and levofloxacin 11/07- at outside hospital -UA negative -Currently asymptomatic * Assessment & Plan Note - Hal Bajwa MD - 11/12/2024 10:40 AM EDT Associated Problem(s): DM2 (diabetes mellitus, type 2) ([facility]) -ISS, ACHS * Assessment & Plan Note - Hal Bajwa MD - 11/12/2024 10:40 AM EDT Associated Problem(s): Acquired hypothyroidism -Continue levothyroxine -TSH low with normal T4 -Does have tender thyroid, check US thyroid -On chart review, several changes to liothyronine, check T3 * Assessment & Plan Note - Hal Bajwa MD - 11/12/2024 10:40 AM EDT Associated Problem(s): GERD (gastroesophageal reflux disease) -Continue Protonix * Assessment & Plan Note - Hal Bajwa MD - 11/12/2024 10:40 AM EDT Associated Problem(s): HLD (hyperlipidemia) -Continue rosuvastatin * Assessment & Plan Note - Hal Bajwa MD - 11/12/2024 10:40 AM EDT Associated Problem(s): Anxiety -Continue Celexa * Assessment & Plan Note - Hal Bajwa MD - 11/12/2024 10:40 AM EDT Associated Problem(s): Heart murmur -quiet systolic murmur that was not heard on admission -likely this is high output -without schistocytes I do not feel overly compelled to obtain TTE at this point * Assessment & Plan Note - Hal Bajwa MD - 11/12/2024 10:40 AM EDT Associated Problem(s): Moderate protein-calorie malnutrition -RD following, see below * Assessment & Plan Note - Hal Bajwa MD - 11/12/2024 10:40 AM EDT Associated Problem(s): Vitamin B12 deficiency -Low at OSH and received multiple doses IM replacement -Appropriate levels on recheck here * Assessment & Plan Note - Hal Bajwa MD - 11/12/2024 10:40 AM EDT Associated Problem(s): Transaminitis -Elevated at OSH but were unremarkable here -Hyperbilirubinemia, AST>ALT * Assessment & Plan Note - Hal Bajwa MD - 11/12/2024 10:40 AM EDT Associated Problem(s): Pancytopenia (CMS/HCC) -Concerning for B12 deficiency vs iatrogenic vs MDS vs MPN vs malignancy, less likely MAHA process -OSH smear showing rare schistocytes, repeat smear here negative for schistocytes -f/u [id number] activity, [facility] flow, BMBx results -CT imaging negative for LAD -Did have 5 days nitrofurantoin appx 1 month ago -HemOnc on board, grateful for their input -Daily CBC however minimize phlebotomy as much as possible (re: CMP every Wed/Th) -Transfuse for Hgb <7 -Transfuse for Plt <10 or <20 and active bleeding * Care Plan - Linh Schmitt RN - 11/12/2024 8:09 AM EDT The patient is Moderately Stable - Low risk of patient condition declining or worsening The patient's goals for the shift include comfort, rest The clinical goals for the shift include VSS, safety Problem: Pain - Adult Goal: Verbalizes/displays adequate comfort level or baseline comfort level Outcome: Progressing Flowsheets (Taken 11/12/2024807) Verbalizes/displays adequate comfort level or baseline comfort level: Encourage patient to monitor pain and request assistance Assess pain using appropriate pain scale Administer analgesics based on type and severity of pain and evaluate response Problem: Safety - Adult Goal: Free from fall injury Outcome: Progressing Flowsheets (Taken 11/12/2024807) Free from fall injury: Assess patient frequently for physical needs [place] fall precautions as indicated by assessment Problem: Discharge Planning Goal: Discharge to home or other facility with appropriate resources Outcome: Progressing Flowsheets (Taken 11/12/2024807) Discharge to home or other facility with appropriate resources: Identify barriers to discharge with patient and caregiver Arrange for needed discharge resources and transportation as appropriate Identify discharge learning needs (meds, wound care, etc) Problem: Chronic Conditions and Co-morbidities Goal: Patient's chronic conditions and co-morbidity symptoms are monitored and maintained or improved Outcome: Progressing Flowsheets (Taken 11/12/2024807) Care Plan - Patient's Chronic Conditions and Co-Morbidity Symptoms are Monitored and Maintained or Improved: Monitor and assess patient's chronic conditions and comorbid symptoms for stability, deterioration, or improvement * Care Plan - Joaquina Tavera RN - 11/11/2024 10:20 PM EDT The patient is Moderately Stable - Low risk of patient condition declining or worsening The patient's goals for the shift include Rest The clinical goals for the shift include VSS safety * Assessment & Plan Note - Hal Bajwa MD - 11/11/2024 2:30 PM EDT Associated Problem(s): Pancytopenia (CMS/HCC) -Concerning for MDS vs MPN vs malignancy, less likely MAHA process -OSH smear showing rare schistocytes, repeat smear here negative for schistocytes -f/u [id number] activity, [facility] flow, BMBx results -CT imaging negative for LAD -HemOnc on board, grateful for their input -Daily CBC however minimize phlebotomy as much as possible (re: BMP every Mon/Thurs) -Transfuse for Hgb <7 -Transfuse for Plt <10 or <20 and active bleeding * Assessment & Plan Note - Hal Bajwa MD - 11/11/2024 2:30 PM EDT Associated Problem(s): Acute cystitis without hematuria -Treated with CTX at outside hospital -UA negative -Currently asymptomatic * Assessment & Plan Note - Hal Bajwa MD - 11/11/2024 2:30 PM EDT Associated Problem(s): Acquired hypothyroidism -Continue levothyroxine -TSH low with normal T4 -Does have tender thyroid, check US thyroid * Assessment & Plan Note - Hal Bajwa MD - 11/11/2024 2:18 PM EDT Associated Problem(s): Heart murmur -quiet systolic murmur that was not heard on admission -likely this is high output -without schistocytes I do not feel overly compelled to obtain TTE at this point * Assessment & Plan Note - Hal Bajwa MD - 11/11/2024 6:52 AM EDT Associated Problem(s): Acute encephalopathy -?2/2 UTI vs above process -Aox2, reporting delirium that pt herself denies -Did have syncopal episode -CT of the head negative at outside hospital * Assessment & Plan Note - Hal Bajwa MD - 11/11/2024 6:52 AM EDT Associated Problem(s): DM2 (diabetes mellitus, type 2) ([facility]) -ISS, ACHS * Assessment & Plan Note - Hal Bajwa MD - 11/11/2024 6:52 AM EDT Associated Problem(s): GERD (gastroesophageal reflux disease) -Continue Protonix * Assessment & Plan Note - Hal Bajwa MD - 11/11/2024 6:52 AM EDT Associated Problem(s): HLD (hyperlipidemia) -Continue rosuvastatin * Assessment & Plan Note - Hal Bajwa MD - 11/11/2024 6:52 AM EDT Associated Problem(s): Anxiety -Continue Celexa * Assessment & Plan Note - Hal Bajwa MD - 11/11/2024 6:52 AM EDT Associated Problem(s): Moderate protein-calorie malnutrition -RD following, see below * Care Plan - Joaquina Tavera RN - 11/11/2024 6:31 AM EDT The patient is Moderately Stable - Low risk of patient condition declining or worsening The patient's goals for the shift include rest The clinical goals for the shift include VSS * Assessment & Plan Note - Hal Bajwa MD - 11/10/2024 3:28 PM EDT Associated Problem(s): Pancytopenia (CMS/HCC) -Concerning for MDS vs MPN vs malignancy, less likely MAHA process -OSH smear showing rare schistocytes, repeat smear here -Check hemolysis labs, [id number] -HemOnc on board, grateful for their input -Will be undergoing BMBx today -Daily CBC however minimize phlebotomy as much as possible * Assessment & Plan Note - Hal Bajwa MD - 11/10/2024 3:28 PM EDT Associated Problem(s): Acute encephalopathy -?2/2 UTI vs above process -Aox2, reporting delirium that pt herself denies -Did have syncopal episode -CT of the head negative at outside hospital * Assessment & Plan Note - Hal Bajwa MD - 11/10/2024 3:28 PM EDT Associated Problem(s): Acute cystitis without hematuria -Treated with CTX at outside hospital -Currently asymptomatic * Assessment & Plan Note - Hal Bajwa MD - 11/10/2024 3:28 PM EDT Associated Problem(s): DM2 (diabetes mellitus, type 2) (CMS/[facility]) -ISS, ACHS * Assessment & Plan Note - Hal Bajwa MD - 11/10/2024 3:28 PM EDT Associated Problem(s): Acquired hypothyroidism -Continue levothyroxine -TSH low with normal T4 * Assessment & Plan Note - Hal Bajwa MD - 11/10/2024 3:28 PM EDT Associated Problem(s): GERD (gastroesophageal reflux disease) -Continue Protonix * Assessment & Plan Note - Hal Bajwa MD - 11/10/2024 3:28 PM EDT Associated Problem(s): HLD (hyperlipidemia) -Continue rosuvastatin * Assessment & Plan Note - Hal Bajwa MD - 11/10/2024 3:28 PM EDT Associated Problem(s): Anxiety -Continue Celexa * Assessment & Plan Note - Hal Bajwa MD - 11/10/2024 3:28 PM EDT Associated Problem(s): Moderate protein-calorie malnutrition -RD following, see below * Significant Event - Earline Lemons RN - 11/10/2024 11:08 AM EDT 11/10/24 1100 Admission Assessment Questions Verify insurance with patient Yes Do you understand medical disease or what brought you into the hospital? Yes Who is your current PCP? Henrik Downing Can I schedule a follow up appointment for you at the time of discharge? Yes Do you understand why you are taking your current medications? Yes Are you taking your medications as prescribed? Yes Did patient provide teach back? No Pharmacy Bedside Delivery Status Interested Does the patient have a rn case management assigned to them through their insurance? No Living Arrangement (Current/Prior to Hospitalization) Home self care (Lives at home with ) Does the patient have history of HHC or SNF? No Assistive Device Other (Comment) (Has a scooter) Patient's goal for discharge Goal is to discharge home Was patient reminded that goal for discharge is 11am? No Does the patient have transportation at discharge? Yes Type of Residence Private residence Is PT/OT appropriate? No Is PT/OT ordered? No Is SW consult appropriate? No Is SW consult ordered? No Do you understand the benefits of MyChart? Yes Were you able to send link and activate MyChart? No * Care Arleth - Migdalia Denton RN - 11/10/2024 9:14 AM EDT Problem: Infection - Adult Goal: Absence of infection at discharge Outcome: Progressing Goal: Absence of infection during hospitalization Outcome: Progressing Goal: Absence of fever/infection during anticipated neutropenic period Outcome: Progressing Problem: Metabolic/Fluid and Electrolytes - Adult Goal: Electrolytes maintained within normal limits Outcome: Progressing Goal: Hemodynamic stability and optimal renal function maintained Outcome: Progressing Goal: Glucose maintained within prescribed range Outcome: Progressing Problem: Pain - Adult Goal: Verbalizes/displays adequate comfort level or baseline comfort level Outcome: Progressing Problem: Safety - Adult Goal: Free from fall injury Outcome: Progressing Problem: Discharge Planning Goal: Discharge to home or other facility with appropriate resources Outcome: Progressing Problem: Chronic Conditions and Co-morbidities Goal: Patient's chronic conditions and co-morbidity symptoms are monitored and maintained or improved Outcome: Progressing The patient is Moderately Stable - Low risk of patient condition declining or worsening The patient's goals for the shift include rest The clinical goals for the shift include VSS, safety * Care Plan - Joaquina Tavera RN - 11/10/2024 1:48 AM EDT The patient is Moderately Stable - Low risk of patient condition declining or worsening The patient's goals for the shift include rest The clinical goals for the shift include VSS, safety * Assessment & Plan Note - Rebecca Lang CNP - 11/09/2024 11:41 PM EDTAssociated Problem(s): Pancytopenia (CMS/HCC) - Initial labs at [facility] found to be WBC 2.2, hemoglobin 5.3, platelet count 31 Repeat labs at [facility] show WBC 3.49, hemoglobin 8.4, platelet count 26 -Concern for TTP -Type and screen is been completed -Transfuse for hemoglobin less than 7 and a platelet count less than 10 unless actively bleeding -Hematology/oncology consult -N.p.o. at midnight for bone marrow biopsy * Assessment & Plan Note - Rebecca Lang CNP - 11/09/2024 11:34 PM EDTAssociated Problem(s): Acquired hypothyroidism - Continue levothyroxine * Assessment & Plan Note - Rebecca Lang CNP - 11/09/2024 11:34 PM EDTAssociated Problem(s): GERD (gastroesophageal reflux disease) - Continue Protonix * Assessment & Plan Note - Rebecca Lang CNP - 11/09/2024 11:34 PM EDTAssociated Problem(s): HLD (hyperlipidemia) - Continue rosuvastatin * Assessment & Plan Note - Rebecca Lang CNP - 11/09/2024 11:34 PM EDTAssociated Problem(s): Anxiety - Continue Celexa * Assessment & Plan Note - Rebecca Lang CNP - 11/09/2024 11:34 PM EDTAssociated Problem(s): Acute encephalopathy - Patient with intermittent confusion as well as a syncopal episode which has since resolved -CT of the head negative at outside hospital -Suspect likely secondary to low hemoglobin * Assessment & Plan Note - Rebecca Lang CNP - 11/09/2024 11:34 PM EDTAssociated Problem(s): Acute cystitis without hematuria - Patient reportedly with a positive UTI at outside hospital and was given Rocephin, patient currently denies any UTI symptoms, will hold on antibiotics at this time * Assessment & Plan Note - Rebecca Lang CNP - 11/09/2024 11:34 PM EDTAssociated Problem(s): DM2 (diabetes mellitus, type 2) ([facility]) - ISS, ACHS * Care Plan - Migdalia Denton RN - 11/09/2024 7:01 PM EDT The patient is Moderately Stable - Low risk of patient condition declining or worsening The patient's goals for the shift include feel better The clinical goals for the shift include documented in this encounter Plan of Treatment Upcoming Encounters Date Type Department Care Team (Late st Contact Info) Description 11/23/2024 10:00 AM EDT Follow-Up [facility] [address] [place] [address] Юлия Guerra MD [address] [place] [address] Pending Results Name Type Priority Associated Diagnoses Date/Time Bone marrow exam Pathology and Cytology Routine Pancytopenia (CMS/HCC) 11/10/2024 1:00 PM EDT Bone marrow cell differential Pathology and Cytology Routine 11/10/2024 2:00 PM EDT [place]: LCMS, CHRBM, EXHD, HOLDF - Miscellaneous Test Lab Routine 11/10/2024 2: 00 PM EDT Methylmalonic acid, serum Lab Pending Discharge 11/12/2024 10:41 AM EDT IMMUNOFIXATION ELECTROPHORESIS & KAPPA/LAMBDA LIGHT CHAINS, BLOOD Lab Add-On 11/12/2024 10:41 AM EDT Immunofixation electrophoresis Lab Add-On 11/12/2024 10:41 AM EDT Scheduled Orders Name Type Priority Associated Diagnoses Order Schedule Bone marrow exam Pathology and Cytology Timed Pancytopenia (CMS/HCC) Release Upon Ordering for 1 Occurrences starting 11/10/2024, 1 completed Bone marrow cell differential Pathology and Cytology Routine Once (Lab) for 1 Occurrences starting 11/10/2024 until 11/10/2024 [place]: LCMS, CHRBM, EXHD, HOLDF - Miscellaneous Test Lab Routine Once (Lab) fo r 1 Occurrences starting 11/10/2024 until 11/10/2024 IMMUNOFIXATION ELECTROPHORESIS & KAPPA/LAMBDA LIGHT CHAINS, BLOOD Lab Add-On Once (Lab) for 1 Occurrences starting 11/13/2024 until 11/13/2024 HIV COMBO 4G Lab Add-On Once (Lab) f or 1 Occurrences starting 11/12/2024 until 11/12/2024 Methylmalonic acid, serum Lab Routine Once (Lab) for 1 Occurrences starting 11/12/2024 until 11/12/2024 Immunofixation electrophoresis Lab Add-On Once (Lab) for 1 Occurrences starting 11/13/2024 until 11/13/2024, 1 completed Basic metabolic panel Lab Routine Pancytopenia (CMS/HCC) Expected: 11/17/2024 (Approximate), Expires: 11/14/2025 CBC and differential Lab Routine Pancytopenia (CMS/[facility]) Expected: 11/17/2024 (Approximate), Expires: 11/14/2025 documented as of this encounter Procedures Procedure Name Priority Date/Time Associated Diagnosis Comments POCT GLUCOSE METER UNSOLICITED RESULTS Routine 11/14/2024 11:33 AM EDT POCT GLUCOSE METER UNSOLICITED RESULTS Routine 11/14/2024 7:07 AM EDT HIV COMBO 4G STAT Add-on 11/14/2024 4:53 AM EDT EXTRA TUBES Routine 11/14/2024 4:53 AM EDT CBC WITH AUTO DIFFERENTIAL Pending Discharge 11/14/2024 4:53 AM EDT LIGHT GREEN TOP Routine 11/14/2024 4:53 AM EDT MANUAL DIFFERENTIAL Pending Discharge 11/14/2024 4:53 AM EDT CBC AND DIFFERENTIAL Routine 11/14/2024 4:53 AM EDT BASIC METABOLIC PANEL STAT Add-on 11/14/2024 4:53 AM EDT POCT GLUCOSE METER UNSOLICITED RESULTS Routine 11/13/2024 9:34 PM EDT POCT GLUCOSE METER UNSOLICITED RESULTS Routine 11/13/2024 5:07 PM EDT POCT GLUCOSE METER UNSOLICITED RESULTS Routine 11/13/2024 11:40 AM EDT POCT GLUCOSE METER UNSOLICITED RESULTS Routine 11/13/2024 7:35 AM EDT PREPARE RBC Routine 11/13/2024 7:33 AM EDT CBC WITH AUTO DIFFERENTIAL Pending Discharge 11/13/2024 4:43 AM EDT HSV 1 AND 2 GLYCOPROTEIN G-SPECIFIC ANTIBODY, IGG Pending Discharge 11/13/2024 4:43 AM EDT COLD AGGLUTININ SCREEN Pending Discharge 11/13/2024 4:43 AM EDT MANUAL DIFFERENTIAL Pending Discharge 11/13/2024 4:43 AM EDT CBC AND DIFFERENTIAL Routine 11/13/2024 4:43 AM EDT PROTEIN ELECTROPHORESIS, SERUM Pending Discharge 11/13/2024 4:43 AM EDT MAGNESIUM Add-On 11/13/2024 4:43 AM EDT COMPREHENSIVE METABOLIC PANEL Pending Discharge 11/13/2024 4:43 AM EDT POCT GLUCOSE METER UNSOLICITED RESULTS Routine 11/12/2024 9:33 PM EDT POCT GLUCOSE METER UNSOLICITED RESULTS Routine 11/12/2024 4:53 PM EDT POCT GLUCOSE METER UNSOLICITED RESULTS Routine 11/12/2024 11:25 AM EDT HOMOCYSTEINE (CARDIO), FPIA Pending Discharge 11/12/2024 10:41 AM EDT PARVOVIRUS B19 ANTIBODY, IGG AND IGM Pending Discharge 11/12/2024 10:41 AM EDT MARI-RIVAS VIRUS VCA, IGM Add-On 11/12/2024 10:41 AM EDT CMV IGM Add-On 11/12/2024 10:41 AM EDT POCT GLUCOSE METER UNSOLICITED RESULTS Routine 11/12/2024 7:58 AM EDT CBC WITH AUTO DIFFERENTIAL Pending Discharge 11/12/2024 4:44 AM EDT LIGHT GREEN TOP Routine 11/12/2024 4:44 AM EDT RAINBOW DRAW Routine 11/12/2024 4:44 AM EDT HEPATITIS PANEL, ACUTE Add-On 11/12/2024 4:44 AM EDT MANUAL DIFFERENTIAL Pending Discharge 11/12/2024 4:44 AM EDT CBC AND DIFFERENTIAL Routine 11/12/2024 4:44 AM EDT CIPRIANO Pending Discharge 11/12/2024 4:44 AM EDT T3, FREE Add-On 11/12/2024 4:44 AM EDT POCT GLUCOSE METER UNSOLICITED RESULTS Routine 11/11/2024 8:57 PM EDT US THYROID Routine 11/11/2024 4:31 PM EDT POCT GLUCOSE METER UNSOLICITED RESULTS Routine 11/11/2024 4:24 PM EDT POCT GLUCOSE METER UNSOLICITED RESULTS Routine 11/11/2024 11:13 AM EDT MISCELLANEOUS LAB TEST Routine 11/11/2024 9:51 AM EDT EXTRA TUBES Routine 11/11/2024 7:34 AM EDT CBC WITH AUTO DIFFERENTIAL Pending Discharge 11/11/2024 7:34 AM EDT LAVENDER TOP Routine 11/11/2024 7:34 AM EDT LIGHT GREEN TOP Routine 11/11/2024 7:34 AM EDT COPPER, SERUM Routine 11/11/2024 7:34 AM EDT MANUAL DIFFERENTIAL Pending Discharge 11/11/2024 7:34 AM EDT CBC AND DIFFERENTIAL Routine 11/11/2024 7:34 AM EDT POCT GLUCOSE METER UNSOLICITED RESULTS Routine 11/11/2024 7:07 AM EDT POCT GLUCOSE METER UNSOLICITED RESULTS Routine 11/10/2024 8:51 PM EDT POCT GLUCOSE METER UNSOLICITED RESULTS Routine 11/10/2024 5:28 PM EDT URINALYSIS WITH REFLEX CULTURE Routine 11/10/2024 5:26 PM EDT PROTEIN, URINE, RANDOM Add-On 11/10/2024 5:26 PM EDT CREATININE, URINE, RANDOM Add-On 11/10/2024 5:[address] CHEST W IV CONTRAST Routine 11/10/2024 4:[address] GUIDED BIOPSY BONE MARROW STAT 11/10/2024 2:21 PM EDT ADAMTS 13 ACTIVITY Routine 11/10/2024 11 :55 AM EDT APTT Routine 11/10/2024 11:55 AM EDT FIBRINOGEN Routine 11/10/2024 11:55 AM EDT HAPTOGLOBIN Routine 11/10/2024 11:55 AM EDT POCT GLUCOSE METER UNSOLICITED RESULTS Routine 11/10/2024 11:12 AM EDT POCT GLUCOSE METER UNSOLICITED RESULTS Routine 11/10/2024 7:50 AM EDT IRON AND TIBC Add-On 11/10/2024 5:13 AM EDT PERIPHERAL BLOOD SMEAR Add-On 11/10/2024 5:13 AM EDT RETICULOCYTE PANEL Add-On 11/10/2024 5: 13 AM EDT CBC Routine 11/10/2024 5:13 AM EDT LACTATE DEHYDROGENASE Add-On 11/10/2024 5:13 AM EDT FOLATE Add-On 11/10/2024 5:13 AM EDT FERRITIN Add-On 11/10/2024 5:13 AM EDT BASIC METABOLIC PANEL Routine 11/10/2024 5:13 AM EDT POCT GLUCOSE METER UNSOLICITED RESULTS Routine 11/09/2024 9:09 PM EDT PREPARE RBC Routine 11/09/2024 9:04 PM EDT ECG 12-LEAD STAT 11/09/2024 8:20 PM EDT BLOOD CULTURE STAT 11/09/2024 7:47 PM EDT BLOOD CULTURE STAT 11/09/2024 7:47 PM EDT LACTIC ACID, PLASMA STAT 11/09/2024 7 :47 PM EDT HIGH SENSITIVITY TROPONIN I STAT 11/09/2024 7:46 PM EDT TSH3 REFLEX TO FT4 STAT 11/09/2024 7: 46 PM EDT VENOUS BLOOD GAS WITH IONIZED CALCIUM STAT 11/09/2024 7:46 PM EDT CBC WITH AUTO DIFFERENTIAL STAT 11/09/2024 7:46 PM EDT ANTI C3 JUAN MANUEL Routine 11/09/2024 7:46 PM EDT ANTI IGG JUAN MANUEL Routine 11/09/2024 7:46 PM EDT ANTIBODY IDENTIFICATION Routine 11/09/2024 7:46 PM EDT VITAMIN D 25 HYDROXY STAT 11/09/2024 7:46 PM EDT MANUAL DIFFERENTIAL STAT 11/09/2024 7 :46 PM EDT PROTIME-INR STAT 11/09/2024 7:46 PM EDT CBC AND DIFFERENTIAL STAT 11/09/2024 7:46 PM EDT TYPE AND SCREEN Routine 11/09/2024 7:46 PM EDT T4, FREE STAT 11/09/2024 7:46 PM EDT PHOSPHORUS STAT 11/09/2024 7:46 PM EDT MAGNESIUM STAT 11/09/2024 7:46 PM EDT VITAMIN B12 STAT 11/09/2024 7:46 PM EDT CK TOTAL AND CKMB STAT 11/09/2024 7:4 6 PM EDT AMMONIA STAT 11/09/2024 7:46 PM EDT COMPREHENSIVE METABOLIC PANEL STAT 11/09/2024 7:46 PM EDT documented in this encounter Results * (ABNORMAL) POCT glucose meter (11/14/2024 11:33 AM EDT) [facility] Glucose POC 134(H) 70 - 105 mg/dL 11/14/2024 11:43 AM EDT [facility] ([facility]) Comment:[email or web address] Blood Capillary blood specimen / Unknown 11/14/2024 11:33 AM EDT 11/14/2024 11:43 AM EDT [facility] ([facility]) - 11/14/2024 11:43 AM EDT Waived Testing in the ED is performed under the ED CLIA certificate #[id number]. Harry Lebron MD LAB BLOOD ORDERABLES Performing Organization Address City/[facility]/ZIP Co de Phone Number [facility] ([facility]) [address] [place] [address] * (ABNORMAL) POCT glucose meter (11/14/2024 7:07 AM EDT) Glucose POC 155(H) 70 - 105 mg/dL 11/14/2024 7:17 AM EDT [facility] ([facility]) Comment:[email or web address] Blood Capillary blood specimen / Unknown 11/14/2024 7:07 AM EDT 11/14/2024 7:17 AM EDT [facility] ([facility]) - 11/14/2024 7:17 AM EDT Waived Testing in the ED is performed under the ED CLIA certificate #[id number]. Hal Bajwa MD LAB BLOOD ORDERABLES Performing Organization Address [facility] Co de Phone Number [facility]) [address] [place] [address] * (ABNORMAL) Basic metabolic panel (11/14/2024 4:53 AM EDT) Sodium 142 136 - 145 mmol/L 11/14/2024 1:25 PM EDT [facility] ([facility]) Potassium 3.8 3.5 - 5.1 mmol/L 11/14/2024 1:25 PM EDT [facility] ([facility]) Chloride 111(H) 98 - 107 mmol/L 11/14/2024 1:25 PM EDT [facility] ([facility]) CO2 29 21 - 31 mmol/L 11/14/2024 1:25 PM EDT [facility] ([facility]) BUN 11 7 - 25 mg/dL 11/14/2024 1:25 PM EDT [facility] ([facility]) Creatinine 0.58(L) 0.60 - 1.20 mg/dL 11/14/2024 1:25 PM EDT [facility] ([facility]) Glucose 122(H) 70 - 100 mg/dL 11/14/2024 1:25 PM EDT [facility] ([facility]) Calcium 8.3(L) 8.6 - 10.3 mg/dL 11/14/2024 1:25 PM EDT [facility] ([facility]) Anion Gap 6(L) 7 - 20 mmol/L 11/14/2024 1:25 PM EDT [facility] ([facility]) eGFR 102.9 >60.0 mL/min/1. 73m*2 11/14/2024 1:25 PM EDT [facility] ([facility]) Comment:The [facility] s estimated glomerular filtration rate (eGFR) will no longer include consideration of race in its calculation. The [employer] s eGFR Task Force developed new recommendations for the estimation of the glomerular filtration rate in the [place] They recommend immediate implementation of the new equation refit without the race variable in all laboratories because the calculation does not include race. In addition to not including race in the calculation and reporting, it included diversity in its development, and has acceptable performance characteristics and potential consequences that do not disproportionately affect any one group of individuals. BUN/Creatinine Ratio 19.0 10/27 1:25 PM EDT [facility] ([facility]) Blood Venous blood specimen / Unknown Venipuncture / Unknown 11/14/2024 4:53 AM EDT 11/14/2024 5:03 AM EDT Harry Lebron MD LAB BLOOD ORDERABLES [facility]) [address] [place] [address] * HIV COMBO 4G (11/14/2024 4:53 AM EDT) HIV Combo 4G Negative Negative 11/14/2024 10:06 AM EDT [facility] ([facility]) Comment:Received comment: Us er comments: Slide comments: Blood Venous blood specimen / Unknown Venipuncture / Unknown 11/14/2024 4:53 AM EDT 11/14/2024 4:56 AM EDT Harry Lebron MD LAB BLOOD ORDERABLES [facility] ([facility]) [address] [place] [address] * (ABNORMAL) Manual Differential (11/14/2024 4:53 AM EDT) Pathologist [facility] Immature Granulocytes % 2.4(H) 0.0 - 1.0 % 11/14/2024 7:54 AM EDT [facility] ([facility]) Neutrophils Absolute 1.8 1.6 - 7.6 10*3/uL 11/14/2024 7:54 AM EDT [facility] ([facility]) Lymphocytes Absolute 0.82(L) 1.20 - 4.00 10*3/uL 11/14/2024 7:54 AM EDT [facility] ([facility]) Monocytes Absolute 0.55 0.10 - 1.00 10*3/uL 11/14/2024 7:54 AM EDT [facility] ([facility]) Eosinophils Absolute 0.07 0.00 - 0.50 10*3/uL 11/14/2024 7:54 AM EDT [facility] ([facility]) Basophils Absolute 0.01 0.00 - 0.20 10*3/uL 11/14/2024 7:54 AM EDT [facility] ([facility]) Anisocytosis Moderate 11/14/2024 7:54 AM EDT [facility] ([facility]) Poikilocytes Slight 11/14/2024 7:54 AM EDT [facility] ([facility]) Polychromasia Slight 11/14/2024 7:54 AM EDT [facility] ([facility]) Neutrophils % 53.7 40.0 - 72.0 % 11/14/2024 7:54 AM EDT [facility] ([facility]) Lymphocytes % 24.8 20.0 - 45.0 % 11/14/2024 7:54 AM EDT [facility] ([facility]) Monocytes % 16.7(H) 5.0 - 12.0 % 11/14/2024 7:54 AM EDT [facility] ([facility]) Eosinophils % 2.1 0.0 - 6.0 % 11/14/2024 7:54 AM EDT [facility] ([facility]) Basophils % 0.3 0.0 - 1.0 % 11/14/2024 7:54 AM EDT [facility] ([facility]) Immature Granulocytes Absolute 0.08 0.00 - 0.20 10*3/uL 11/14/2024 7:54 AM EDT [facility] ([facility]) Blood Venous blood specimen / Unknown Venipuncture / Unknown 11/14/2024 4:53 AM EDT 11/14/2024 4:56 AM EDT Hal Bajwa MD LAB BLOOD ORDERABLES [facility]) [address] [place] [address] * Light Green Top (11/14/2024 4:53 AM EDT) Pathologist [facility] Extra Tube Hold for add-ons. 11/14/2024 7:01 AM EDT [facility]) Comment:Auto resulted. Blood Venous blood specimen / Unknown Venipuncture / Unknown 11/14/2024 4:53 AM EDT 11/14/2024 5:03 AM EDT Hal Bajwa MD LAB BLOOD ORDERABLES [facility]) [address] [place] [address] * (ABNORMAL) CBC auto differential (11/14/2024 4:53 AM EDT) Pathologist [facility] Auto WBC 3.30(L) 4.00 - 10.60 10*3/uL 11/14/2024 5:48 AM EDT [facility] ([facility]) RBC 2.59(L) 3.80 - 5.00 10*6/uL 11/14/2024 5:48 AM EDT [facility] ([facility]) Hemoglobin 8.5(L) 12.0 - 15.0 g/dL 11/14/2024 5:48 AM EDT [facility] ([facility]) Hematocrit 27.7(L) 36.0 - 45.0 % 11/14/2024 5:48 AM EDT [facility] ([facility]) MCV 106.9(H) 82.0 - 98.0 fL 11/14/2024 5:48 AM EDT [facility] ([facility]) MCH 32.8 27.0 - 33.0 pg 11/14/2024 5:48 AM EDT [facility] ([facility]) MCHC 30.7(L) 32.0 - 35.0 g/dL 11/14/2024 5:48 AM EDT [facility] ([facility]) RDW 20.9(H) 11.5 - 15.0 % 11/14/2024 5:48 AM EDT [facility] ([facility]) Platelets 113(L) 150 - 400 10*3/uL 11/14/2024 5:48 AM EDT [facility] ([facility]) nRBC % 1.8(H) 0 % 11/14/2024 5:48 AM EDT [facility] ([facility]) Immature Platelet Fraction % 5.0 0.8 - 6.3 % 11/14/2024 5:48 AM EDT [facility] ([facility]) Blood Venous blood specimen / Unknown Venipuncture / Unknown 11/14/2024 4:53 AM EDT 11/14/2024 4:56 AM EDT Hal Bajwa MD LAB BLOOD ORDERABLES [facility] ([facility]) [address] [place] [address] * (ABNORMAL) POCT glucose meter (11/13/2024 9:34 PM EDT) Glucose POC 141(H) 70 - 105 mg/dL 11/13/2024 9:47 PM EDT [facility] ([facility]) Comment:[email or web address] Blood Capillary blood specimen / Unknown 11/13/2024 9:34 PM EDT 11/13/2024 9:47 PM EDT [facility] ([facility]) - 11/13/2024 9:47 PM EDT Waived Testing in the ED is performed under the ED CLIA certificate #[id number]. Hal Bajwa MD LAB BLOOD ORDERABLES Performing Organization Address City/[facility]/ZIP Co de Phone Number [facility] ([facility]) [address] [place] [address] * (ABNORMAL) POCT glucose meter (11/13/2024 5:07 PM EDT) Glucose POC 156(H) 70 - 105 mg/dL 11/13/2024 5:17 PM EDT [facility] ([facility]) Comment:[email or web address] Blood Capillary blood specimen / Unknown 11/13/2024 5:07 PM EDT 11/13/2024 5:17 PM EDT [facility] ([facility]) - 11/13/2024 5:17 PM EDT Waived Testing in the ED is performed under the ED CLIA certificate #[id number]. Hal Bajwa MD LAB BLOOD ORDERABLES [facility] ([facility]) [address] [place] [address] * (ABNORMAL) POCT glucose meter (11/13/2024 11:40 AM EDT) Glucose POC 129(H) 70 - 105 mg/dL 11/13/2024 11:51 AM EDT [facility] ([facility]) Comment:[email or web address] Blood Capillary blood specimen / Unknown 11/13/2024 11:40 AM EDT 11/13/2024 11:51 AM EDT Narrative [facility] ([facility]) - 11/13/2024 11:51 AM EDT Waived Testing in the ED is performed under the ED CLIA certificate #[id number]. Hal Bajwa MD LAB BLOOD ORDERABLES Performing Organization Address City/[facility]/ZIP Co de Phone Number [facility] ([facility]) [address] [place] [address] * (ABNORMAL) POCT glucose meter (11/13/2024 7:35 AM EDT) Glucose POC 139(H) 70 - 105 mg/dL 11/13/2024 7:46 AM EDT [facility] ([facility]) Comment:[email or web address] Blood Capillary blood specimen / Unknown 11/13/2024 7:35 AM EDT 11/13/2024 7:46 AM EDT Narrative [facility] ([facility]) - 11/13/2024 7:46 AM EDT Waived Testing in the ED is performed under the ED CLIA certificate #[id number]. Hal Bajwa MD LAB BLOOD ORDERABLES Performing Organization Address City/[facility]/ZIP Co de Phone Number [facility] ([facility]) [address] [place] [address] * Prepare RBC (11/13/2024 7:33 AM EDT) PRODUCT CODE [id number] [facility] Unit Number [id number] [facility] Unit ABO O [facility] Unit Rh POS [facility] Dispense Status RE [facility] Blood Expiration Date [id number] [facility] Product Blood Type 5100 [facility]LO[facility] Unit Volume 300 mL [facility] BLO OD BANK PRODUCT CODE [id number] [facility] Unit Number [id number] [facility] BLOOD [facility] Unit ABO O [facility] BLOOD [facility] Unit Rh POS [facility] BLOOD [facility] Dispense Status RE [facility]LOOD [facility] Blood Expiration Date [id number] [facility] Product Blood Type 5100 [facility]LO[facility] Rebecca Lang CNP BLOOD BANK PRODUCT O RDERABLES [facility] * Magnesium (11/13/2024 4:43 AM EDT) Magnesium 2.1 1.9 - 2.7 mg/dL 11/13/2024 7:25 AM EDT [facility] ([facility]) Blood Venous blood specimen / Unknown Venipuncture / Unknown 11/13/2024 4:43 AM EDT 11/13/2024 5:20 AM EDT Hal Bajwa MD LAB BLOOD ORDERABLES [facility] ([facility]) [address] [place] [address] * (ABNORMAL) Manual Differential (11/13/2024 4:43 AM EDT) Immature Granulocytes % 3.8(H) 0.0 - 1.0 % 11/13/2024 7:14 AM EDT [facility] ([facility]) Neutrophils Absolute 1.2(L) 1.6 - 7.6 10*3/uL 11/13/2024 7:14 AM EDT [facility] ([facility]) Lymphocytes Absolute 0.78(L) 1.20 - 4.00 10*3/uL 11/13/2024 7:14 AM EDT [facility] ([facility]) Monocytes Absolute 0.45 0.10 - 1.00 10*3/uL 11/13/2024 7:14 AM EDT [facility] ([facility]) Eosinophils Absolute 0.04 0.00 - 0.50 10*3/uL 11/13/2024 7:14 AM EDT [facility] ([facility]) Basophils Absolute 0.01 0.00 - 0.20 10*3/uL 11/13/2024 7:14 AM EDT [facility] ([facility]) Anisocytosis Moderate 11/13/2024 7:14 AM EDT [facility] ([facility]) Poikilocytes Slight 11/13/2024 7:14 AM EDT [facility] ([facility]) Polychromasia Slight 11/13/2024 7:14 AM EDT [facility] ([facility]) Macrocytes Slight 11/13/2024 7:14 AM EDT [facility] ([facility]) Neutrophils % 47.0 40.0 - 72.0 % 11/13/2024 7:14 AM EDT [facility] ([facility]) Lymphocytes % 30.0 20.0 - 45.0 % 11/13/2024 7:14 AM EDT [facility] ([facility]) Monocytes % 17.3(H) 5.0 - 12.0 % 11/13/2024 7:14 AM EDT [facility] ([facility]) Eosinophils % 1.5 0.0 - 6.0 % 11/13/2024 7:14 AM EDT [facility] ([facility]) Basophils % 0.4 0.0 - 1.0 % 11/13/2024 7:14 AM EDT [facility] ([facility]) Immature Granulocytes Absolute 0.10 0.00 - 0.20 10*3/uL 11/13/2024 7:14 AM EDT [facility] ([facility]) Blood Venous blood specimen / Unknown Venipuncture / Unknown 11/13/2024 4:43 AM EDT 11/13/2024 5:20 AM EDT Hal Bajwa MD LAB BLOOD ORDERABLES [facility] ([facility]) [address] [place] [address] * (ABNORMAL) CBC auto differential (11/13/2024 4:43 AM EDT) Auto WBC 2.60(L) 4.00 - 10.60 10*3/uL 11/13/2024 7:07 AM EDT [facility] ([facility]) RBC 2.41(L) 3.80 - 5.00 10*6/uL 11/13/2024 7:07 AM EDT [facility] ([facility]) Hemoglobin 8.2(L) 12.0 - 15.0 g/dL 11/13/2024 7:07 AM EDT [facility] ([facility]) Hematocrit 26.4(L) 36.0 - 45.0 % 11/13/2024 7:07 AM EDT [facility] ([facility]) MCV 109.5(H) 82.0 - 98.0 fL 11/13/2024 7:07 AM EDT [facility] ([facility]) MCH 34.0(H) 27.0 - 33.0 pg 11/13/2024 7:07 AM EDT [facility] ([facility]) MCHC 31.1(L) 32.0 - 35.0 g/dL 11/13/2024 7:07 AM EDT [facility] ([facility]) RDW 21.3(H) 11.5 - 15.0 % 11/13/2024 7:07 AM EDT [facility] ([facility]) Platelets 36(L) 150 - 400 10*3/uL 11/13/2024 7:07 AM EDT [facility] ([facility]) nRBC % 3.1(H) 0 % 11/13/2024 7:07 AM EDT [facility] ([facility]) Immature Platelet Fraction % 6.7(H) 0.8 - 6.3 % 11/13/2024 7:07 AM T [facility] ([facility]) Blood Venous blood specimen / Unknown Venipuncture / Unknown 11/13/2024 4:43 AM EDT 11/13/2024 5:20 AM EDT Hal Bajwa MD LAB BLOOD ORDERABLES [facility] ([facility]) [address] [place] [address] * (ABNORMAL) Comprehensive metabolic panel (11/13/2024 4:43 AM EDT) Sodium 143 136 - 145 mmol/L 11/13/2024 5:46 AM [facility] ([facility]) Potassium 3.4(L) 3.5 - 5.1 mmol/L 11/13/2024 5:46 AM [facility] ([facility]) Chloride 110(H) 98 - 107 mmol/L 11/13/2024 5:46 AM [facility] ([facility]) CO2 30 21 - 31 mmol/L 11/13/2024 5:46 AM [facility] ([facility]) Anion Gap 6(L) 7 - 20 mmol/L 11/13/2024 5:46 AM [facility] ([facility]) BUN 10 7 - 25 mg/dL 11/13/2024 5:46 AM [facility] ([facility]) Creatinine 0.48(L) 0.60 - 1.20 mg/dL 11/13/2024 5:46 AM [facility] ([facility]) BUN/Creatinine Ratio 20.8 10/26 5:46 AM [facility] ([facility]) Glucose 120(H) 70 - 100 mg/dL 11/13/2024 5:46 AM [facility] ([facility]) Calcium 8.2(L) 8.6 - 10.3 mg/dL 11/13/2024 5:46 AM [facility] ([facility]) AST 12(L) 13 - 39 U/L 11/13/2024 5:46 AM [facility] ([facility]) ALT (SGPT) 12 7 - 52 U/L 11/13/2024 5:46 AM [facility] ([facility]) Alkaline Phosphatase 81 34 - 104 U/L 11/13/2024 5:46 AM [facility] ([facility]) Total Protein 5.1(L) 6.0 - 8.3 g/dL 11/13/2024 5:46 AM [facility] ([facility]) Albumin 3.2(L) 3.5 - 5.7 g/dL 11/13/2024 5:46 AM [facility] ([facility]) Total Bilirubin 0.7 0.3 - 1.0 mg/dL 11/13/2024 5:46 AM [facility] ([facility]) eGFR 107.7 >60.0 mL/min/1. 73m*2 11/13/2024 5:46 AM EDT [facility] ([facility]) Comment:The [facility] s estimated glomerular filtration rate (eGFR) will no longer include consideration of race in its calculation. The [employer] s eGFR Task Force developed new recommendations for the estimation of the glomerular filtration rate in the [place] They recommend immediate implementation of the new equation refit without the race variable in all laboratories because the calculation does not include race. In addition to not including race in the calculation and reporting, it included diversity in its development, and has acceptable performance characteristics and potential consequences that do not disproportionately affect any one group of individuals. Blood Venous blood specimen / Unknown Venipuncture / Unknown 11/13/2024 4:43 AM EDT 11/13/2024 5:20 AM EDT Hal Bajwa MD LAB BLOOD ORDERABLES [facility] ([facility]) [address] [place] [address] * (ABNORMAL) HSV 1 and 2 glycoprotein g-specific antibody, IgG (11/13/2024 4:43 AM EDT) [facility] HSV 1 Glycoprotein G Ab, IgG 8.77(H) <=0.89 IV 11/15/2024 1:11 AM EDT [facility]) Comment: REFERENCE INTERVAL: HSV 1 Glycoprotein G Ab, IgG 0.89 IV or less ...... Negative - No significant level of detectable IgG antibody to HSV type 1 glycoprotein G. 0.90 - 1.09 IV ....... Equivocal - Questionable presence of IgG antibody to HSV type 1 glycoprotein G. Repeat testing in 10 - 14 days may be helpful. 1.10 IV or greater ... Positive - IgG antibody to HSV type 1 glycoprotein G detected, which may indicate a current or past HSV infection. Individuals infected with HSV may not exhibit detectable IgG antibody to type-specific HSV antigens 1 and 2 in early stages of infection. Detection of antibody presence in these cases may only be possible using a non-type specific screening test. HSV 2 Glycoprotein G Ab, IgG 0.13 <=0.89 IV 11/15/2024 1:11 AM EDT [facility] ([facility]) Comment: REFERENCE INTERVAL: HSV 2 Glycoprotein G Ab, IgG 0.89 IV or less ....... Negative - No significant level of detectable IgG antibody to HSV type 2 glycoprotein G. 0.90 - 1.09 IV ........ Equivocal - Questionable presence of IgG antibody to HSV type 2 glycoprotein G. Repeat testing in 10 - 14 days may be helpful. 1.10 IV or greater .... Positive - IgG antibody to HSV type 2 glycoprotein G detected, which may indicate a current or past HSV infection. Individuals infected with HSV may not exhibit detectable IgG antibody to type-specific HSV antigens 1 and 2 in early stages of infection. Detection of antibody presence in these cases may only be possible using a non-type specific screening test. False positive results are possible. Consider additional testing for HSV-2, particularly if the result for HSV-2 is </= 3.0 IV. Performed By: [employer] [address] [place] [id number] Sales Technician: Cal Delgado MD, PhD CLIA Number: [id number] Blood Venous blood specimen / Unknown Venipuncture / Unknown 11/13/2024 4:43 AM EDT 11/13/2024 5:07 AM EDT Hal Bajwa MD LAB BLOOD ORDERABLES [facility]) [address] [place] [address] * (ABNORMAL) Protein electrophoresis, serum (11/13/2024 4:43 AM EDT) [facility] Total Protein 4.8(L) 6.0 - 8.3 g/dL 11/15/2024 2:20 PM EDT [facility] ([employer]) Protein Electrophoresis Interpretation Please see attached report. 11/15/2024 2:20 PM EDT [facility] ([facility]) Blood Venous blood specimen / Unknown Venipuncture / Unknown 11/13/2024 4:43 AM EDT 11/13/2024 5:20 AM EDT Hal Bajwa MD LAB BLOOD ORDERABLES Performing Organization Address City/State/[facility] Co de Phone Number [facility] ([facility]) [address] [place] [address] * Cold agglutinin screen (11/13/2024 4:43 AM EDT) Cold Agglutinin Titer <1:32 <1:32 11/15/2024 10:52 PM EDT [facility] ([facility]) Comment: INTERPRETIVE INFORMATION: Cold Agglutinins Titers of 1:32 or higher are considered elevated by this technique. Elevated titers are rarely seen except in primary atypical pneumonia and in certain hemolytic anemias. If the agglutination is not reversible after incubation at 37 degrees Celsius, then the reaction is not due to cold agglutinins. Primary atypical pneumonia can be caused by Mycoplasma pneumoniae, influenza A, influenza B, parainfluenza, and adenoviruses. However, a fourfold rise in the cold agglutinins usually begins to appear late in the first week or during the second week of the disease and begins to decrease between the fourth and sixth week. Low titers of cold agglutinins have been demonstrated in malaria, peripheral vascular disease, and common respiratory disease. Performed By: [employer] [address] [place] [address] Sales Technician: Cal Delgado MD, PhD CLIA Number: [id number] Blood Venous blood specimen / Unknown Venipuncture / Unknown 11/13/2024 4:43 AM EDT 11/13/2024 5:07 AM EDT Hal Bajwa MD LAB BLOOD ORDERABLES [facility] ([facility]) [address] [place] [address] * (ABNORMAL) POCT glucose meter (11/12/2024 9:33 PM EDT) Glucose POC 156(H) 70 - 105 mg/dL 11/12/2024 9:45 PM EDT [facility] ([facility]) Comment:[email or web address] Blood Capillary blood specimen / Unknown 11/12/2024 9:33 PM EDT 11/12/2024 9:45 PM EDT [facility] ([facility]) - 11/12/2024 9:45 PM EDT Waived Testing in the ED is performed under the ED CLIA certificate #[id number]. Hal Bajwa MD LAB BLOOD ORDERABLES Performing Organization Address [facility]/ZIP Co de Phone Number [facility] ([facility]) [address] [place] [address] * (ABNORMAL) POCT glucose meter (11/12/2024 4:53 PM EDT) Glucose POC 144(H) 70 - 105 mg/dL 11/12/2024 5:04 PM EDT [facility] ([facility]) Comment:[email or web address] Blood Capillary blood specimen / Unknown 11/12/2024 4:53 PM EDT 11/12/2024 5:04 PM EDT [facility] ([facility]) - 11/12/2024 5:04 PM EDT Waived Testing in the ED is performed under the ED CLIA certificate #[id number]. Hal Bajwa MD LAB BLOOD ORDERABLES Performing Organization Address [facility] Co de Phone Number [facility] ([facility]) [address] [place] [address] * (ABNORMAL) POCT glucose meter (11/12/2024 11:25 AM EDT) Glucose POC 149(H) 70 - 105 mg/dL 11/12/2024 11:36 AM EDT [facility] ([facility]) Comment:[email or web address] Blood Capillary blood specimen / Unknown 11/12/2024 11:25 AM EDT 11/12/2024 11:36 AM EDT [facility] ([facility]) - 11/12/2024 11:36 AM EDT Waived Testing in the ED is performed under the ED CLIA certificate #[id number]. Hal Bajwa MD LAB BLOOD ORDERABLES [facility] ([facility]) [address] [place], [place] [id number] * (ABNORMAL) Homocysteine (cardio), FPIA (11/12/2024 10:41 AM EDT) [facility] Homocysteine 20.5(H) 0.0 - 15.0 umol/L 11/12/2024 6:48 PM EDT [facility] Comment:Test Performed by [facility] [employer] [address] [place] [address] [id number] - [email or web address] 11/12/2024 18:48 Blood Venous blood specimen / Unknown Venipuncture / Unknown 11/12/2024 10:41 AM EDT 11/12/2024 10:46 AM EDT Hal Bajwa MD LAB BLOOD ORDERABLES Performing Organization Address City/[facility]/ZIP Co de Phone Number [facility] [address] [place] [address] * (ABNORMAL) Mari-Rivas virus VCA, IgM (11/12/2024 10:41 AM EDT) [facility] EBV VCA IGM INTERPRETATION Positive( A) Negative 11/15/2024 1:19 PM EDT [facility] ([facility]) MARI-RIVAS VIRUS VCA IGM 50.5(H) < 36.0 U/mL U/mL 11/15/2024 1:19 PM EDT [facility] ([facility]) Comment: NORMAL RANGE < 36.0 NEGATIVE ; NO SIGNIFICANT LEVEL OF DETECTABLE EBV-VCA IgM AB >= 36.0 AND < 44.0 EQUIVOCAL; REPEAT TESTING SUGGESTED >= 44.0 POSITIVE ; SIGNIFICANT LEVEL OF DETECTABLE EBV-VCA IgM AB Blood Venous blood specimen / Unknown Venipuncture / Unknown 11/12/2024 10:41 AM EDT 11/12/2024 10:48 AM EDT Hal Bajwa MD LAB BLOOD ORDERABLES Performing Organization Address [facility] Co de Phone Number [facility]) [address] [place] [address] * CMV IgM (11/12/2024 10:41 AM EDT) Pathologist [facility] Cytomegalovirus IgM Ab Interpretation Negative Negative 11/15/2024 1:11 PM EDT [facility] ([facility]) CYTOMEGALOVIRUS IGM ANTIBODY <8.0 < 30.0 AU/mL AU/mL 11/15/2024 1:11 PM EDT [facility] ([facility]) Comment: NORMAL RANGES: < 30.0 NEGATIVE; NO DETECTABLE IgM ANTIBODY TO CMV >= 30.0 and < 35.0 EQUIVOCAL; REPEAT TESTING SUGGESTED >= 35.0 POSITIVE; INDICATES PRESENCE OF DETECTABLE IgM ANTIBODY TO CMV Blood Venous blood specimen / Unknown Venipuncture / Unknown 11/12/2024 10:41 AM EDT 11/12/2024 10:48 AM EDT Hal Bajwa MD LAB BLOOD ORDERABLES Performing Organization Address [facility] Co de Phone Number [facility] [facility] [address] [place] [address] * (ABNORMAL) Parvovirus B19 antibody, IgG and IgM (11/12/2024 10:41 AM EDT) [facility] Parvovirus B19 IgG 7.31(H) <=0.90 IV 11/15/2024 5:15 AM EDT [facility] ([facility]) Comment: INTERPRETIVE INFORMATION: Parvovirus B19 Antibody, IgG 0.90 IV or less .......... Negative - No significant level of detectable Parvovirus B19 IgG antibody. 0.91 - 1.09 IV ........... Equivocal - Repeat testing in 7-21 days may be helpful. 1.10 IV or greater ....... Positive - IgG antibody to Parvovirus B19 detected which may indicate a current or past infection. The best evidence for current infection is a significant change on two appropriately timed specimens, where both tests are done in the same laboratory at the same time. Parvovirus B19 IgM 0.42 <=0.89 IV 11/15/2024 5:15 AM EDT [facility] ([facility]) Comment: INTERPRETIVE INFORMATION: Parvovirus B19 Antibody, IgM 0.89 IV or less .......... Negative - No significant level of detectable Parvovirus B19 IgM antibody. 0.90 - 1.10 IV ........... Equivocal - Repeat testing in 7-21 days may be helpful. 1.11 IV or greater ........ Positive - IgM antibody to Parvovirus B19 detected which may indicate a current or recent infection. However, low levels of IgM antibodies may occasionally persist for more than 12 months post-infection. The best evidence for current infection is a significant change on two appropriately timed specimens, where both tests are done in the same laboratory at the same time. Appearance of an IgM antibody response normally occurs 7 to 14 days after the onset of disease. Testing immediately post-exposure is of no value without a later convalescent specimen. A residual IgM response may be distinguished from early IgM response to infection by testing sera from patients three to four weeks later for changing levels of specific IgM antibodies. Performed By: [facility] [address] [place] [address] Sales Technician: Cal Delgado MD, PhD CLIA Number: [id number] Blood Venous blood specimen / Unknown Venipuncture / Unknown 11/12/2024 10:41 AM EDT 11/12/2024 10:48 AM EDT Hal Bajwa MD LAB BLOOD ORDERABLES [facility] ([facility]) [address] [place] [address] * (ABNORMAL) POCT glucose meter (11/12/2024 7:58 AM EDT) [facility] Glucose POC 135(H) 70 - 105 mg/dL 11/12/2024 8:09 AM EDT [facility] ([facility]) Comment:[email or web address] Blood Capillary blood specimen / Unknown 11/12/2024 7:58 AM EDT 11/12/2024 8:09 AM EDT Narrative [facility] ([facility]) - 11/12/2024 8:09 AM EDT Waived Testing in the ED is performed under the ED CLIA certificate #[id number]. Hal Bajwa MD LAB BLOOD ORDERABLES Performing Organization Address City/[facility]/ZIP Co de Phone Number [facility]) [address] [place] [address] * Hepatitis panel, acute (11/12/2024 4:44 AM EDT) Hepatitis B Surface Ag Nonreactive Nonreactive 11/12/2024 12:59 PM EDT [facility]) Hep A IgM Nonreactive Nonreactive 11/12/2024 12:59 PM EDT [facility] ([facility]) Hepatitis C Ab Nonreactive Nonreactive 11/12/2024 12:59 PM EDT [facility]) Hep B Core Total Ab Nonreactive Nonreactive 11/12/2024 12:59 PM EDT [facility] ([facility]) Blood Venous blood specimen / Unknown 11/12/2024 4:44 AM EDT 11/12/2024 4:53 AM EDT Hal Bajwa MD LAB BLOOD ORDERABLES Performing Organization Address [facility] Co de Phone Number [facility]) [address] [place] [id number] * T3, free (11/12/2024 4:44 AM EDT) T3, Free 3.0 2.5 - 3.9 pg/mL 11/12/2024 11:22 AM EDT [facility]) Blood Venous blood specimen / Unknown 11/12/2024 4:44 AM EDT 11/12/2024 4:53 AM EDT Hal Bajwa MD LAB BLOOD ORDERABLES [facility] ([facility]) [address] [place] [address] * (ABNORMAL) Manual Differential (11/12/2024 4:44 AM EDT) Metamyelocytes % 0.7(H) 0.0 - 0.0 % 11/12/2024 5:45 AM EDT [facility] ([facility]) Myelocytes % 2.7(H) 0.0 - 0.0 % 11/12/2024 5:45 AM EDT [facility] ([facility]) Atypical Lymphocytes % 0.0 0.0 - 0.0 % 11/12/2024 5:45 AM EDT [facility] ([facility]) Neutrophils Absolute 1.0(L) 1.6 - 7.6 10*3/uL 11/12/2024 5:45 AM EDT [facility] ([facility]) Lymphocytes Absolute 1.11(L) 1.20 - 4.00 10*3/uL 11/12/2024 5:45 AM EDT [facility] ([facility]) Monocytes Absolute 0.14 0.10 - 1.00 10*3/uL 11/12/2024 5:45 AM EDT [facility] ([facility]) Eosinophils Absolute 0.03 0.00 - 0.50 10*3/uL 11/12/2024 5:45 AM EDT [facility] ([facility]) Basophils Absolute 0.00 0.00 - 0.20 10*3/uL 11/12/2024 5:45 AM EDT [facility] ([facility]) Metamyelocytes Absolute 0.02(H) 0.00 10*3/uL 11/12/2024 5:45 AM EDT [facility] ([facility]) Myelocytes Absolute 0.06(H) 0.00 10*3/uL 11/12/2024 5:45 AM EDT [facility] ([facility]) Atypical Lymphs Absolute 0.00 0.00 10*3/uL 11/12/2024 5:45 AM EDT [facility] ([facility]) Anisocytosis Moderate 11/12/2024 5:45 AM EDT [facility] ([facility]) Poikilocytes Slight 11/12/2024 5:45 AM EDT [facility] ([facility]) Polychromasia Slight 11/12/2024 5:45 AM EDT [facility] ([facility]) Macrocytes Moderate 11/12/2024 5:45 AM EDT [facility] ([facility]) Giant PLTs Present 11/12/2024 5:45 AM EDT [facility] ([facility]) Neutrophils % 41.3 40.0 - 72.0 % 11/12/2024 5:45 AM EDT [facility] ([facility]) Lymphocytes % 48.0(H) 20.0 - 45.0 % 11/12/2024 5:45 AM EDT [facility] ([facility]) Monocytes % 6.0 5.0 - 12.0 % 11/12/2024 5:45 AM EDT [facility] ([facility]) Eosinophils % 1.3 0.0 - 6.0 % 11/12/2024 5:45 AM EDT [facility] ([facility]) Basophils % 0.0 0.0 - 1.0 % 11/12/2024 5:45 AM EDT [facility] ([facility]) Plasma Cells % 0 0 % 11/12/2024 5:45 AM EDT [facility] ([facility]) nRBC Present 11/12/2024 5:45 AM EDT [facility] ([facility]) Blood Venous blood specimen / Unknown Venipuncture / Unknown 11/12/2024 4:44 AM EDT 11/12/2024 4:51 AM EDT Hal Bajwa MD LAB BLOOD ORDERABLES [facility] ([facility]) [address] [place] [address] * Light Green Top (11/12/2024 4:44 AM EDT) Extra Tube Hold for add-ons. 11/12/2024 6:01 AM EDT [facility] ([facility]) Comment:Auto resulted. Blood Venous blood specimen / Unknown 11/12/2024 4:44 AM EDT 11/12/2024 4:53 AM EDT Hal Bajwa MD LAB BLOOD ORDERABLES [facility] ([facility]) [address] [place], [place] [id number] * (ABNORMAL) CBC auto differential (11/12/2024 4:44 AM EDT) Auto WBC 2.32(L) 4.00 - 10.60 10*3/uL 11/12/2024 5:27 AM EDT [facility] ([facility]) RBC 2.34(L) 3.80 - 5.00 10*6/uL 11/12/2024 5:27 AM EDT [facility] ([facility]) Hemoglobin 8.2(L) 12.0 - 15.0 g/dL 11/12/2024 5:27 AM EDT [facility] ([facility]) Hematocrit 25.4(L) 36.0 - 45.0 % 11/12/2024 5:27 AM EDT [facility] ([facility]) MCV 108.5(H) 82.0 - 98.0 fL 11/12/2024 5:27 AM EDT [facility] ([facility]) MCH 35.0(H) 27.0 - 33.0 pg 11/12/2024 5:27 AM EDT [facility] ([facility]) MCHC 32.3 32.0 - 35.0 g/dL 11/12/2024 5:27 AM EDT [facility] ([facility]) RDW 11/12/2024 5:27 AM EDT [facility] ([facility]) Comment:Unable to calculate Platelets 17(LL) 150 - 400 10*3/uL 11/12/2024 5:27 AM EDT [facility] ([facility]) nRBC % 4.7(H) 0 % 11/12/2024 5:27 AM EDT [facility] ([facility]) Immature Platelet Fraction % 7.7(H) 0.8 - 6.3 % 11/12/2024 5:27 AM EDT [facility] ([facility]) Blood Venous blood specimen / Unknown Venipuncture / Unknown 11/12/2024 4:44 AM EDT 11/12/2024 4:51 AM EDT Hal Bajwa MD LAB BLOOD ORDERABLES [facility] ([facility]) [address] [place] [address] * CIPRIANO (11/12/2024 4:44 AM EDT) CIPRIANO Titer <1:40 <=1:40 11/16/2024 7:08 PM EDT [facility] ([facility]) Comment:Test performed using [employer] IFA CIPRIANO Hep-2 Test, a pre-standardized assay designed for the qualitative and semi-quantitative detection of antinuclear antibodies. Blood Venous blood specimen / Unknown Venipuncture / Unknown 11/12/2024 4:44 AM EDT 11/14/2024 12:50 PM EDT Hal Bajwa MD LAB BLOOD ORDERABLES Performing Organization Address [facility] Co de Phone Number [facility] ([facility]) [address] [place] [address] * (ABNORMAL) POCT glucose meter (11/11/2024 8:57 PM EDT) Glucose POC 190(H) 70 - 105 mg/dL 11/11/2024 9:16 PM EDT [facility] ([facility]) Comment:[email or web address] Blood Capillary blood specimen / Unknown 11/11/2024 8:57 PM EDT 11/11/2024 9:16 PM EDT Narrative [facility] ([facility]) - 11/11/2024 9:16 PM EDT Waived Testing in the ED is performed under the ED CLIA certificate #[id number]. Hal Bajwa MD LAB BLOOD ORDERABLES [facility] ([facility]) [address] [place] [address] * US thyroid (11/11/2024 4:31 PM EDT) Anatomical Region Laterality Modality Head, Neck Ultrasound 11/12/2024 9:56 AM EDT Impressions 11/12/2024 9:57 AM EDT Small heterogeneous thyroid gland likely sequelae of chronic thyroiditis Electronically signed: David Law. Narrative 11/12/2024 9:57 AM EDT US THYROID 11/11/2024 3:27 PM CLINICAL INDICATIONS]: Right-sided thyroid enlargement COMPARISON: None. FINDINGS: Right and left thyroid lobes are normal in size and echotexture. The right thyroid lobe measures 3.1 x 1.2 x 0.9 cm and the left thyroid lobe measures 3.3 x 1.5 x 0.9 cm. The isthmus measures 0.2 cm. Gland is heterogeneous. No thyroid nodules are present. No cervical lymphadenopathy is noted. Procedure Note David Law MD - 11/12/2024 US THYROID 11/11/2024 3:27 PM CLINICAL INDICATIONS]: Right-sided thyroid enlargement COMPARISON: None. FINDINGS: Right and left thyroid lobes are normal in size and echotexture. Theright thyroid lobe measures 3.1 x 1.2 x 0.9 cm and the left thyroid lobemeasures 3.3 x 1.5 x 0.9 cm. The isthmus measures 0.2 cm. Gland is heterogeneous. No thyroid nodules are present. No cervical lymphadenopathy is noted. IMPRESSION: Small heterogeneous thyroid gland likely sequelae of chronic thyroiditis Electronically signed: David Law. Hal Bajwa MD IMG US PROCEDURES * (ABNORMAL) POCT glucose meter (11/11/2024 4:24 PM EDT) Glucose POC 144(H) 70 - 105 mg/dL 11/11/2024 4:36 PM EDT [facility] ([facility]) Comment:[email or web address] Blood Capillary blood specimen / Unknown 11/11/2024 4:24 PM EDT 11/11/2024 4:35 PM EDT Narrative [facility] ([facility]) - 11/11/2024 4:36 PM EDT Waived Testing in the ED is performed under the ED CLIA certificate #[id number]. Hal Bajwa MD LAB BLOOD ORDERABLES [facility] ([facility]) [address] [place] [address] * (ABNORMAL) POCT glucose meter (11/11/2024 11:13 AM EDT) Glucose POC 133(H) 70 - 105 mg/dL 11/11/2024 11:24 AM EDT [facility] ([facility]) Comment:[email or web address] Blood Capillary blood specimen / Unknown 11/11/2024 11:13 AM EDT 11/11/2024 11:24 AM EDT [facility] ([facility]) - 11/11/2024 11:24 AM EDT Waived Testing in the ED is performed under the ED CLIA certificate #[id number]. Hal Bajwa MD LAB BLOOD ORDERABLES Performing Organization Address City/[facility]/ZIP Co de Phone Number [facility] ([facility]) [address] [place] [address] * [facility] flow cytometry - Miscellaneous Test (11/11/2024 9:51 AM EDT) Blood Venous blood specimen / Unknown Venipuncture / Unknown 11/11/2024 9:51 AM EDT 11/11/2024 10:10 AM EDT [facility] [employer]) - 11/13/2024 12:41 PM EDT See scanned result. Hal Bajwa MD LAB BLOOD ORDERABLES [facility] ([employer]) [address] [place] [address] * (ABNORMAL) Manual Differential (11/11/2024 7:34 AM EDT) Immature Granulocytes % 2.8(H) 0.0 - 1.0 % 11/11/2024 12:15 PM EDT [facility] ([facility]) Neutrophils Absolute 1.1(L) 1.6 - 7.6 10*3/uL 11/11/2024 12:15 PM EDT [facility] ([facility]) Lymphocytes Absolute 1.33 1.20 - 4.00 10*3/uL 11/11/2024 12:15 PM T [facility] ([facility]) Monocytes Absolute 0.37 0.10 - 1.00 10*3/uL 11/11/2024 12:15 PM EDT [facility] ([facility]) Eosinophils Absolute 0.01 0.00 - 0.50 10*3/uL 11/11/2024 12:15 PM T [facility] ([facility]) Basophils Absolute 0.01 0.00 - 0.20 10*3/uL 11/11/2024 12:15 PM T [facility] ([facility]) Anisocytosis Moderate 11/11/2024 12:15 PM [facility] ([facility]) Poikilocytes Slight 11/11/2024 12:15 PM [facility] ([facility]) Polychromasia Slight 11/11/2024 12:15 PM [facility] ([facility]) Neutrophils % 37.4(L) 40.0 - 72.0 % 11/11/2024 12:15 PM [facility] ([facility]) Lymphocytes % 46.3(H) 20.0 - 45.0 % 11/11/2024 12:15 PM [facility] ([facility]) Monocytes % 12.9(H) 5.0 - 12.0 % 11/11/2024 12:15 PM [facility] ([facility]) Eosinophils % 0.3 0.0 - 6.0 % 11/11/2024 12:15 PM [facility] ([facility]) Basophils % 0.3 0.0 - 1.0 % 11/11/2024 12:15 PM T [facility] ([facility]) Immature Granulocytes Absolute 0.08 0.00 - 0.20 10*3/uL 11/11/2024 12:15 PM EDT [facility] ([facility]) Blood Venous blood specimen / Unknown 11/11/2024 7:34 AM EDT 11/11/2024 7:49 AM EDT Hal Bajwa MD LAB BLOOD ORDERABLES [facility] ([facility]) [address] [place] [address] * (ABNORMAL) CBC auto differential (11/11/2024 7:34 AM EDT) Auto WBC 2.87(L) 4.00 - 10.60 10*3/uL 11/11/2024 11:49 AM EDT [facility] ([facility]) RBC 2.35(L) 3.80 - 5.00 10*6/uL 11/11/2024 11:49 AM EDT [facility] ([facility]) Hemoglobin 8.2(L) 12.0 - 15.0 g/dL 11/11/2024 11:49 AM EDT [facility] ([facility]) Hematocrit 25.4(L) 36.0 - 45.0 % 11/11/2024 11:49 AM EDT [facility] ([facility]) MCV 108.1(H) 82.0 - 98.0 fL 11/11/2024 11:49 AM EDT [facility] ([facility]) MCH 34.9(H) 27.0 - 33.0 pg 11/11/2024 11:49 AM EDT [facility] ([facility]) MCHC 32.3 32.0 - 35.0 g/dL 11/11/2024 11:49 AM EDT [facility] ([facility]) RDW 11/11/2024 11:49 AM EDT [facility] ([facility]) Comment:Unable to calculate Platelets 19(LL) 150 - 400 10*3/uL 11/11/2024 11:49 AM EDT [facility] ([facility]) nRBC % 4.2(H) 0 % 11/11/2024 11:49 AM EDT [facility] ([facility]) Immature Platelet Fraction % 7.8(H) 0.8 - 6.3 % 11/11/2024 11:49 AM EDT [facility] ([facility]) Blood Venous blood specimen / Unknown 11/11/2024 7:34 AM EDT 11/11/2024 7:49 AM EDT Hal Bajwa MD LAB BLOOD ORDERABLES Performing Organization Address City/[facility]/ZIP Co de Phone Number [facility]) [address] [place] [address] * Lavender Top (11/11/2024 7:34 AM EDT) Extra Tube Hold for add-ons. 11/11/2024 9:01 AM EDT [facility]) Comment:Auto resulted. Blood Venous blood specimen / Unknown 11/11/2024 7:34 AM EDT 11/11/2024 7:49 AM EDT Hal Bajwa MD LAB BLOOD ORDERABLES Performing Organization Address [facility] Co de Phone Number [facility]) [address] [place] [address] * Light Green Top (11/11/2024 7:34 AM EDT) Extra Tube Hold for add-ons. 11/11/2024 9:01 AM EDT [facility] ([facility]) Comment:Auto resulted. Blood Venous blood specimen / Unknown 11/11/2024 7:34 AM EDT 11/11/2024 7:49 AM EDT Hal Bajwa MD LAB BLOOD ORDERABLES Performing Organization Address City/[facility] Co de Phone Number [facility]) [address] [place] [address] * Copper, serum (11/11/2024 7:34 AM EDT) Copper 129.2 80.0 - 155.0 ug/dL 11/13/2024 1:54 AM EDT [facility] ([facility]) Comment: INTERPRETIVE INFORMATION: Copper, Serum or Plasma Elevated results may be due to skin or collection-related contamination, including the use of a noncertified metal-free collection/transport tube. If contamination concerns exist due to elevated levels of serum/plasma copper, confirmation with a second specimen collected in a certified metal-free tube is recommended. Serum copper may be elevated with infection, inflammation, stress, and copper supplementation. In females, elevated copper may also be caused by oral contraceptives and (concentrations may be elevated up to 3 times normal during the third trimester). This test was developed and its performance characteristics determined by [facility]. It has not been cleared or approved by the [place] Food and Drug Administration. This test was performed in a CLIA certified laboratory and is intended for clinical purposes. Performed By: [facility] [address] [place] [address] Sales Technician: Cal Delgado MD, PhD CLIA Number: [id number] Blood Venous blood specimen / Unknown Venipuncture / Unknown 11/11/2024 7:34 AM EDT 11/11/2024 7:49 AM EDT Hal Bajwa MD LAB BLOOD ORDERABLES [facility] ([facility]) [address] [place] [address] * (ABNORMAL) POCT glucose meter (11/11/2024 7:07 AM EDT) [facility] Signature Glucose POC 115(H) 70 - 105 mg/dL 11/11/2024 7:18 AM EDT [facility] ([facility]) Comment:[email or web address] Blood Capillary blood specimen / Unknown 11/11/2024 7:07 AM EDT 11/11/2024 7:18 AM EDT Narrative [facility] ([facility]) - 11/11/2024 7:18 AM EDT Waived Testing in the ED is performed under the ED CLIA certificate #[id number]. Hal Bajwa MD LAB BLOOD ORDERABLES [facility] ([facility]) [address] [place] [address] * (ABNORMAL) POCT glucose meter (11/10/2024 8:51 PM EDT) Glucose POC 156(H) 70 - 105 mg/dL 11/10/2024 9:03 PM EDT [facility] ([facility]) Comment:[email or web address] Blood Capillary blood specimen / Unknown 11/10/2024 8:51 PM EDT 11/10/2024 9:03 PM EDT [facility] ([facility]) - 11/10/2024 9:03 PM EDT Waived Testing in the ED is performed under the ED CLIA certificate #[id number]. Hal Bajwa MD LAB BLOOD ORDERABLES Performing Organization Address [facility]/ZIP Co de Phone Number [facility] ([facility]) [address] [place] [address] * (ABNORMAL) POCT glucose meter (11/10/2024 5:28 PM EDT) Glucose POC 125(H) 70 - 105 mg/dL 11/10/2024 5:39 PM EDT [facility] ([facility]) Comment:[email or web address] Blood Capillary blood specimen / Unknown 11/10/2024 5:28 PM EDT 11/10/2024 5:39 PM EDT [facility] ([facility]) - 11/10/2024 5:39 PM EDT Waived Testing in the ED is performed under the ED CLIA certificate #[id number]. Hal Bjawa MD LAB BLOOD ORDERABLES [facility] ([facility]) [address] [place] [address] * Creatinine, urine, random (11/10/2024 5:26 PM EDT) Creatinine, Ur 142.0 26 - 299 mg/dL 11/12/2024 12:39 PM EDT [facility] ([facility]) Urine Urine specimen obtained by clean catch procedure / Unknown Non-blood Collection / Unknown 11/10/2024 5:26 PM EDT 11/10/2024 6:52 PM EDT Hal Bajwa MD LAB URINE ORDERABLES Performing Organization Address [facility] Co de Phone Number [facility] ([facility]) [address] [place] [address] * Protein, urine, random (11/10/2024 5:26 PM EDT) Protein, Ur 14.7 mg/dL 11/12/2024 12:39 PM EDT [facility] ([facility]) Comment:There are no establi shed reference values for random urine specimens. Urine Urine specimen obtained by clean catch procedure / Unknown Non-blood Collection / Unknown 11/10/2024 5:26 PM EDT 11/10/2024 6:52 PM EDT Hal Bajwa MD LAB URINE ORDERABLES Performing Organization Address [facility] Co de Phone Number [facility] ([facility]) [address] [place] [address] * (ABNORMAL) Urinalysis with reflex culture (11/10/2024 5:26 PM EDT) Color, Urine Yellow Colorless, Yellow, Light-Yellow 11/10/2024 7:15 PM EDT [facility] ([facility]) Clarity, Urine Clear Clear 11/10/2024 7:15 PM EDT [facility] ([facility]) pH, Urine 6.0 5.0 - 8.0 pH 11/10/2024 7:15 PM EDT [facility] ([facility]) Leukocytes, Urine Negative Negative 11/10/2024 7:15 PM EDT [facility] ([facility]) Nitrite, Urine Negative Negative 11/10/2024 7:15 PM EDT [facility] ([facility]) Protein, Urine Negative Negative mg/dL 11/10/2024 7:15 PM EDT [facility] ([facility]) Glucose, Urine Normal Normal mg/dL 11/10/2024 7:15 PM EDT [facility] ([facility]) Bilirubin, Urine Negative Negative 11/10/2024 7:15 PM EDT [facility] ([facility]) Specific [place], Urine >1.050(H) 1.010 - 1.030 11/10/2024 7:15 PM EDT [facility] ([facility]) Ketones, Urine Negative Negative mg/dL 11/10/2024 7:15 PM EDT [facility] ([facility]) Blood, Urine Negative Negative 11/10/2024 7:15 PM EDT [facility] ([facility]) Urobilinogen, Urine Normal Normal mg/dL 11/10/2024 7:15 PM EDT [facility] ([facility]) Urine Urine specimen obtained by clean catch procedure / Unknown Non-blood Collection / Unknown 11/10/2024 5:26 PM EDT 11/10/2024 6:52 PM EDT Narrative [facility] ([facility]) - 11/10/2024 7:15 PM EDT Microscopics not performed on urines with negative chemical reactions unless requested on original order. Hal Bajwa MD LAB URINE ORDERABLES [facility]) [address] [place] [address] * CT chest w IV contrast (11/10/2024 4:58 PM EDT) Anatomical Region Laterality Modality Body, Chest Computed Tomogra phy 11/11/2024 8:02 AM EDT Impressions 11/11/2024 8:04 AM EDT * No acute findings in the chest. * No lymphadenopathy. Electronically signed: Yordy Brothers MD. Narrative 11/11/2024 8:[address] CHEST W IV CONTRAST CLINICAL INFORMATION: Lymphoma.. COMPARISON: None. PROCEDURE: Routine CT chest obtained after the uncomplicated intravenous administration of contrast material. Multiplanar reformats were obtained from the axial data. All CT scans at this facility use dose modulation, iterative reconstruction, and/or weight based dosing when appropriate to reduce radiation dose to as low as reasonably achievable. FINDINGS: Arterial enhancement pattern in the spleen, spleen is borderline measuring 12.2 cm. Bibasilar atelectasis. Some scarring noted. Mild emphysema. No effusions. Atherosclerotic calcifications in the aorta. Mild coronary artery calcifications. Pulmonary arteries are of normal caliber. No enlarged lymph nodes. Trace fluid in the pericardial recesses. Degenerative changes. Old rib fractures. Procedure Note Yordy Brothers MD - 11/11/2024 CT CHEST W IV CONTRAST CLINICAL INFORMATION: Lymphoma.. COMPARISON: None. PROCEDURE: Routine CT chest obtained after the uncomplicated intravenous administration of contrast material. Multiplanar reformats were obtainedfrom the axial data. All CT scans at this facility use dose modulation,iterative reconstruction, and/or weight based dosing when appropriate to reduceradiation dose to as low as reasonably achievable. FINDINGS: Arterial enhancement pattern in the spleen, spleen is borderline [id number] cm. Bibasilar atelectasis. Some scarring noted. Mild emphysema. Noeffusions. Atherosclerotic calcifications in the aorta. Mild coronary artery calcifications. Pulmonary arteries are of normal caliber. No enlargedlymph nodes. Trace fluid in the pericardial recesses. Degenerative changes. Oldrib fractures. IMPRESSION: *No acute findings in the chest. *No lymphadenopathy. Electronically signed: Yordy Brothers MD. Hal Bajwa MD IMG CT PROCEDURES * IR CT guided biopsy bone marrow (11/10/2024 2:21 PM EDT) Anatomical Region Laterality Modality Body Computed Tomogra phy 11/10/2024 2:54 PM EDT Impressions 11/10/2024 3:03 PM EDT Impression: Status post CT-guided bone marrow aspiration and bone marrow biopsy Electronically signed: Scott Rodriguez. Narrative 11/10/2024 3:03 PM EDT History: Pancytopenia Procedure: 1. CT guided bone marrow aspiration. 2. CT guided bone marrow biopsy. Radiologist: Dr. Rodriguez Anesthesia: Continuous cardiopulmonary monitoring and sedation provided by independent qualified radiology nursing personnel under physician supervision. Medications: 1 mg of Versed and 50 mcg of fentanyl Contrast: None Dose: 178.50 mGy*centimeter = dose length product Complications None. Conscious sedation time: 30 minutes Technique: Risks, benefits, and alternatives were discussed. All questions were answered and informed consent was obtained. All CT scans at this facility use dose modulation, iterative reconstruction, and/or weight based dosing when appropriate to reduce radiation dose to as low as reasonably achievable. All elements of maximal sterile barrier techniques followed including: cap and mask and sterile gown and sterile gloves and a large sterile sheet and hand hygiene and 2% chlorhexidine for cutaneous antiseptics. The patient was placed in the prone position on the CT table, and the left lower back was prepped and draped in a sterile fashion and the skin was infiltrated with 1% lidocaine to the level of the iliac bone periosteum. A small skin serina with an 11 blade was made. Under CT guidance, an 11-gauge bone biopsy needle was advanced in the left iliac bone from a posterior approach, and CT images were obtained and saved in PACS. Using a 10 cc syringe, a bone marrow aspirate was obtained, and the preliminary interpretation by the [facility] revealed adequate spicules. Repeat bone marrow aspirate with a heparinized syringe was obtained. After confirming the presence of adequate spicules, I proceeded for a core biopsy. The 11-gauge needle was advanced using CT guidance in the left iliac bone, and an 11-gauge core biopsy was obtained and submitted in formalin. The needle was removed and hemostasis obtained by manual compression. A dressing was placed. Patient left the angiography suite in stable condition. Procedure Note Scott Rodriguez MD - 11/10/2024 History: Pancytopenia Procedure: 1. CT guided bone marrow aspiration. 2. CT guided bone marrow biopsy. Radiologist: Dr. Rodriguez Anesthesia: Continuous cardiopulmonary monitoring and sedation providedby independent qualified radiology nursing personnel under physiciansupervision. Medications: 1 mg of Versed and 50 mcg of fentanyl Contrast: None Dose: 178.50 mGy*centimeter = dose length product Complications None. Conscious sedation time: 30 minutes Technique: Risks, benefits, and alternatives were discussed. Allquestions were answered and informed consent was obtained. [facility] use dose modulation, iterative reconstruction, and/or weight based dosingwhen appropriate to reduce radiation dose to as low as reasonably achievable.All elements of maximal sterile barrier techniques followed including: cap andmask and sterile gown and sterile gloves and a large sterile sheet and handhygiene and 2% chlorhexidine for cutaneous antiseptics. The patient was placed inthe prone position on the CT table, and the left lower back was prepped anddraped in a sterile fashion and the skin was infiltrated with 1% lidocaine to thelevel of the iliac bone periosteum. A small skin serina with an 11 blade was made[address] CT guidance, an 11-gauge bone biopsy needle was advanced in the left iliacbone from a posterior approach, and CT images were obtained and saved in PACS.Using a 10 cc syringe, a bone marrow aspirate was obtained, and thepreliminary interpretation by the [facility] revealed adequatespicules. Repeat bone marrow aspirate with a heparinized syringe was obtained.After confirming the presence of adequate spicules, I proceeded for a corebiopsy. The 11-gauge needle was advanced using CT guidance in the left iliac bone, andan 11-gauge core biopsy was obtained and submitted in formalin. The needlewas removed and hemostasis obtained by manual compression. A dressing wasplaced. Patient left the angiography suite in stable condition. IMPRESSION: Impression: Status post CT-guided bone marrow aspiration and bone marrowbiopsy Electronically signed: Scott Rodriguez. Hal Bajwa MD IMG CT PROCEDURES * APTT (11/10/2024 11:55 AM EDT) aPTT 32.5 25.0 - 35.0 Seconds 11/10/2024 12:22 PM EDT [facility] ([facility]) Comment:Clinical significanc e of the APTT is questionable in the presence of heparin. Blood Venous blood specimen / Unknown Venipuncture / Unknown 11/10/2024 11:55 AM EDT 11/10/2024 12:01 PM EDT Hal Bajwa MD LAB BLOOD ORDERABLES [facility] ([facility]) [address] [place] [address] * Fibrinogen (11/10/2024 11:55 AM EDT) Fibrinogen 259 150 - 425 mg/dL 11/10/2024 12:21 PM EDT [facility] ([facility]) Blood Venous blood specimen / Unknown Venipuncture / Unknown 11/10/2024 11:55 AM EDT 11/10/2024 12:01 PM EDT Hal Bajwa MD LAB BLOOD ORDERABLES [facility] ([facility]) [address] [place] [id number] * (ABNORMAL) Haptoglobin (11/10/2024 11:55 AM EDT) Pathologist [facility] Haptoglobin <3.5(L) 32.0 - 197.0 mg/dL 11/10/2024 2:04 PM EDT [facility] ([facility]) Comment:Testing performed us ing a new methodology, turbidimetry. Normal ranges have been updated. Old normal range was 26-164 mg/dL. Blood Venous blood specimen / Unknown Venipuncture / Unknown 11/10/2024 11:55 AM EDT 11/10/2024 12:01 PM EDT Hal Bajwa MD LAB BLOOD ORDERABLES Performing Organization Address City/[facility]/ZIP Co de Phone Number [facility] ([facility]) [address] [place] [phone] * (ABNORMAL) ADAMTS 13 activity (11/10/2024 11:55 AM EDT) [id number] Activity 53(L) >=61 % 025 7:00 PM EDT [facility] ([facility]) Comment: INTERPRETIVE INFORMATION: [id number] Activity [id number] levels of less than 10 percent may be associated with either inherited (Wilmer-Felipe Syndrome) or acquired thrombotic thrombocytopenic purpura (TTP). A variety of medical conditions may result in a mild to moderate deficiency of RMCALL53 activity. Recent plasma exchange therapy may raise the observed FMXOLA53 activity. This test was developed and its performance characteristics determined by [facility]. It has not been cleared or approved by the [place] Food and Drug Administration. This test was performed in a CLIA certified laboratory and is intended for clinical purposes. Performed By: [facility] [address] [place] [address] Sales Technician: Cal Delgado MD, PhD CLIA Number: [id number] Blood Venous blood specimen / Unknown Venipuncture / Unknown 11/10/2024 11:55 AM EDT 11/10/2024 12:01 PM EDT Hal Bajwa MD LAB BLOOD ORDERABLES Performing Organization Address City/[facility]/ZIP Co de Phone Number [facility] [address] [place] [address] * POCT glucose meter (11/10/2024 11:12 AM EDT) Glucose POC 105 70 - 105 mg/dL 11/10/2024 11:25 AM EDT [facility] Comment:[email or web address] Blood Capillary blood specimen / Unknown 11/10/2024 11:12 AM EDT 11/10/2024 11:24 AM EDT Narrative [facility] ([facility]) - 11/10/2024 11:25 AM EDT Waived Testing in the ED is performed under the ED CLIA certificate #[id number]. Hal Bajwa MD LAB BLOOD ORDERABLES [facility] ([facility]) [address] [place] [address] * (ABNORMAL) POCT glucose meter (11/10/2024 7:50 AM EDT) Glucose POC 108(H) 70 - 105 mg/dL 11/10/2024 8:06 AM EDT [facility] Comment: Blood Capillary blood specimen / Unknown 11/10/2024 7:50 AM EDT 11/10/2024 8:06 AM EDT Narrative [facility] ([facility]) - 11/10/2024 8:06 AM EDT Waived Testing in the ED is performed under the ED CLIA certificate #[id number]. Hal Bajwa MD LAB BLOOD ORDERABLES [facility]) [address] [place], [place] [id number] * (ABNORMAL) Reticulocyte panel (11/10/2024 5:13 AM EDT) Retic Ct Abs 0.0425 0.0250 - 0.1000 10*6/uL 11/10/2024 5:28 PM EDT [facility] ([facility]) Retic Ct Pct 1.75 0.50 - 1.80 % 11/10/2024 5:28 PM EDT [facility] ([facility]) Immature Reticulocyte Fraction % 22.4(H) 2 - 16 % 11/10/2024 5:28 PM EDT [facility] ([facility]) Reticulocyte Hemoglobin 37.6(H) 28.0 - 36.0 pg 11/10/2024 5:28 PM EDT [facility] ([facility]) Blood Venous blood specimen / Unknown Venipuncture / Unknown 11/10/2024 5:13 AM EDT 11/10/2024 5:41 AM EDT Hal Bajwa MD LAB BLOOD ORDERABLES [facility]) [address] [place] [address] * Ferritin (11/10/2024 5:13 AM EDT) Ferritin 156.0 11.0 - 307.0 ng/mL 11/10/2024 12:36 PM EDT [facility] ([facility]) Blood Venous blood specimen / Unknown Venipuncture / Unknown 11/10/2024 5:13 AM EDT 11/10/2024 5:39 AM EDT Hal Bajwa MD LAB BLOOD ORDERABLES [facility]) [address] [place] [address] * (ABNORMAL) Iron and TIBC (11/10/2024 5:13 AM EDT) Iron 24(L) 50 - 212 ug/dL 11/10/2024 10:34 PM EDT [facility] ([facility]) TIBC 247(L) 250 - 450 ug/dL 11/10/2024 10:34 PM EDT [facility] ([facility]) Iron Saturation 10(L) 20 - 50 % 10:34 PM EDT [facility] ([facility]) UIBC 223.0 155.0 - 355.0 ug/dL 11/10/2024 10:34 PM EDT [facility] ([facility]) Blood Venous blood specimen / Unknown Venipuncture / Unknown 11/10/2024 5:13 AM EDT 11/10/2024 5:39 AM EDT Hal Bajwa MD LAB BLOOD ORDERABLES Performing Organization Address [facility] Co de Phone Number [facility]) [address] [place] [address] * Folate (11/10/2024 5:13 AM EDT) Folate 10.24 6.6 - 1,000 ng/mL 11/10/2024 12:41 PM EDT [facility]) Blood Venous blood specimen / Unknown Venipuncture / Unknown 11/10/2024 5:13 AM EDT 11/10/2024 5:39 AM EDT Hal Bajwa MD LAB BLOOD ORDERABLES [facility] ([facility]) [address] [place] [address] * (ABNORMAL) Lactate dehydrogenase (11/10/2024 5:13 AM EDT) Pathologist [facility] LD 3,489(H) 140 - 271 U/L 11/10/2024 12:12 PM EDT [facility] ([facility]) Blood Venous blood specimen / Unknown Venipuncture / Unknown 11/10/2024 5:13 AM EDT 11/10/2024 5:39 AM EDT Hal Bajwa MD LAB BLOOD ORDERABLES Performing Organization Address [facility]/ZIP Co de Phone Number [facility] ([facility]) [address] [place] [address] * Peripheral blood smear, path review (11/10/2024 5:13 AM EDT) [facility] WBC Comment Leukopenia, no abnormal cells seen. 11/10/2024 2:00 PM EDT [facility] ([facility]) RBC Comment Anemia, no specific RBC morphology. Macrocytosis , check B12, folate, liver and thyroid function. 11/10/2024 2:00 PM EDT [facility] ([facility]) Platelet Comment Severely decreased. 11/10/2024 2:00 PM EDT [facility] ([facility]) Blood Venous blood specimen / Unknown Venipuncture / Unknown 11/10/2024 5:13 AM EDT 11/10/2024 5:41 AM EDT Narrative [facility] ([facility]) - 11/10/2024 2:00 PM EDT Pancytopenia, bone marrow pending. . Hal Bajwa MD LAB PATHOLOGY ORDERA BLES Performing Organization Address City/[facility]/ZIP Co de Phone Number [facility] ([facility]) [address] [place] [address] * (ABNORMAL) CBC (11/10/2024 5:13 AM EDT) Auto WBC 3.48(L) 4.00 - 10.60 10*3/uL 11/10/2024 6:20 AM EDT [facility] ([facility]) RBC 2.42(L) 3.80 - 5.00 10*6/uL 11/10/2024 6:20 AM EDT [facility] ([facility]) Hemoglobin 8.7(L) 12.0 - 15.0 g/dL 11/10/2024 6:20 AM EDT [facility] ([facility]) Hematocrit 25.9(L) 36.0 - 45.0 % 11/10/2024 6:20 AM EDT [facility] ([facility]) MCV 107.0(H) 82.0 - 98.0 fL 11/10/2024 6:20 AM EDT [facility] ([facility]) MCH 36.0(H) 27.0 - 33.0 pg 11/10/2024 6:20 AM EDT [facility] ([facility]) MCHC 33.6 32.0 - 35.0 g/dL 11/10/2024 6:20 AM EDT [facility] ([facility]) RDW 11/10/2024 6:20 AM EDT [facility] ([facility]) Comment:Unable to calculate Platelets 24(L) 150 - 400 10*3/uL 11/10/2024 6:20 AM EDT [facility] ([facility]) Immature Platelet Fraction % 7.4(H) 0.8 - 6.3 % 11/10/2024 6:20 AM EDT [facility] ([facility]) Blood Venous blood specimen / Unknown Venipuncture / Unknown 11/10/2024 5:13 AM EDT 11/10/2024 5:41 AM EDT Rebecca Lang [facility] LAB BLOOD ORDERABLES [facility]) [address] [place] [address] * (ABNORMAL) Basic metabolic panel (11/10/2024 5:13 AM EDT) Sodium 143 136 - 145 mmol/L 11/10/2024 6:32 AM [facility] ([facility]) Potassium 3.6 3.5 - 5.1 mmol/L 11/10/2024 6:32 AM [facility] ([facility]) Chloride 109(H) 98 - 107 mmol/L 11/10/2024 6:32 AM T [facility] ([facility]) CO2 33(H) 21 - 31 mmol/L 11/10/2024 6:32 AM [facility] ([facility]) BUN 20 7 - 25 mg/dL 11/10/2024 6:32 AM [facility] ([facility]) Creatinine 0.76 0.60 - 1.20 mg/dL 11/10/2024 6:32 AM [facility] ([facility]) Glucose 92 70 - 100 mg/dL 11/10/2024 6:32 AM [facility] ([facility]) Calcium 8.8 8.6 - 10.3 mg/dL 11/10/2024 6:32 AM [facility] ([facility]) Anion Gap 5(L) 7 - 20 mmol/L 11/10/2024 6:32 AM [facility] ([facility]) eGFR 89.1 >60.0 mL/min/1. 73m*2 11/10/2024 6:32 AM [facility] ([facility]) Comment:The [facility] s estimated glomerular filtration rate (eGFR) will no longer include consideration of race in its calculation. The [employer] s eGFR Task Force developed new recommendations for the estimation of the glomerular filtration rate in the [place] They recommend immediate implementation of the new equation refit without the race variable in all laboratories because the calculation does not include race. In addition to not including race in the calculation and reporting, it included diversity in its development, and has acceptable performance characteristics and potential consequences that do not disproportionately affect any one group of individuals. BUN/Creatinine Ratio 26.3 10/26 6:32 AM [facility] ([facility]) Blood Venous blood specimen / Unknown Venipuncture / Unknown 11/10/2024 5:13 AM EDT 11/10/2024 5:39 AM EDT Rebecca Rickey CARDOZA LAB BLOOD ORDERABLES [facility] ([facility]) [address] [place] [address] * (ABNORMAL) POCT glucose meter (11/09/2024 9:09 PM EDT) Glucose POC 156(H) 70 - 105 mg/dL 11/09/2024 9:21 PM EDT [facility] ([facility]) Comment:[email or web address] Blood Capillary blood specimen / Unknown 11/09/2024 9:09 PM EDT 11/09/2024 9:21 PM EDT Narrative [facility] ([facility]) - 11/09/2024 9:21 PM EDT Waived Testing in the ED is performed under the ED CLIA certificate #[id number]. Micky Colbert MD LAB BLOOD ORDERABLES [facility] ([facility]) [address] [place] [address] * Prepare RBC (11/09/2024 9:04 PM EDT) PRODUCT CODE [id number] [facility] Unit Number [id number] [facility] Unit ABO O [facility] Unit Rh POS [facility] Crossmatch Interpretation COMP [facility] Dispense Status XM [facility] Blood Expiration Date [facility] Product Blood Type 5100 [facility] Unit Volume 300 mL [facility] PRODUCT CODE [id number] [facility] Unit Number [id number] [facility] Unit ABO O [facility] Unit Rh POS [facility] Crossmatch Interpretation COMP [facility] Dispense Status XM [facility] Blood Expiration Date [facility] Product Blood Type 5100 [facility] 11/09/2024 9:04 PM EDT Rebecca Lang [facility] PRODUCT O RDERABLES [facility] * ECG 12 lead (11/09/2024 8:20 PM EDT) Ventricular Rate 58 BPM GE MUSE Atrial Rate 58 BPM GE MUSE ID Interval 126 ms GE MUSE QRS DURATION 80 ms GE MUSE QT Interval 442 ms GE MUSE QTC CALCULATION(BAZE TT) 433 ms GE MUSE P [place] 37 degrees GE MUSE R-[place] -7 degrees GE MUSE T Wave [place] 18 degrees GE MUSE 11/09/2024 8:02 PM EDT 11/09/2024 9:47 PM EDT Impressions GE MUSE - 11/09/2024 9:47 PM EDT Sinus bradycardia Otherwise normal ECG No previous ECGs available Confirmed by Amadou Gage ([id number]) on 11/09/2024 9:47:55 PM Narrative Procedure Note Amadou Gage MD - 11/09/2024 IMPRESSION: Sinus bradycardia Otherwise normal ECG No previous ECGs available Confirmed by Amadou Gage ([id number]) on 11/09/2024 9:47:55 PM [facility] Performing Organization Address [facility] Co de Phone Number GE MUSE * Blood culture, peripheral #2 (11/09/2024 7:47 PM EDT) Blood Culture No growth at 5 days ILIA 11/14/2024 10:01 PM EDT [facility] ([facility]) Blood Venous blood specimen / Unknown Venipuncture / Unknown 11/09/2024 7:47 PM EDT 11/09/2024 9:01 PM EDT [facility]OLOGY - G ENERAL ORDERABLES Performing Organization Address City/[facility]/ZIP Co de Phone Number [facility] (BEAKER) [address] [place] [address] * Blood culture, peripheral #1 (11/09/2024 7:47 PM EDT) Blood Culture No growth at 5 days ILIA 11/14/2024 9:01 PM EDT [facility] ([facility]) Blood Venous blood specimen / Unknown Venipuncture / Unknown 11/09/2024 7:47 PM EDT 11/09/2024 9:00 PM EDT [facility] LAB MICROBIOLOGY - G ENERAL ORDERABLES [facility] ([facility]) [address] [place] [address] * Lactic acid, plasma (11/09/2024 7:47 PM EDT) Lactate 0.7 0.5 - 2.2 mmol/L 11/09/2024 8:52 PM EDT [facility]) Blood Venous blood specimen / Unknown Venipuncture / Unknown 11/09/2024 7:47 PM EDT 11/09/2024 8:05 PM EDT [facility] LAB BLOOD ORDERABLES [facility] ([facility]) [address] [place] [address] * Anti C3 JUAN MANUEL (11/09/2024 7:46 PM EDT) Anti C3 JUAN MANUEL NEG 11/09/2024 11:50 PM EDT [facility] Blood Venous blood specimen / Unknown Venipuncture / Unknown 11/09/2024 7:46 PM EDT 11/09/2024 9:01 PM EDT [facility] LAB BLOOD BANK TEST ORDERABLES [facility] * Antibody identification (11/09/2024 7:46 PM EDT) Antibody ID E 11/09/2024 11:27 PM EDT [facility] Blood Venous blood specimen / Unknown Venipuncture / Unknown 11/09/2024 7:46 PM EDT 11/09/2024 9:01 PM EDT Rebecca [facility] LAB BLOOD BANK TEST ORDERABLES Performing Organization Address City/[facility]/ZIP Co de Phone Number [facility] * Anti IgG JUAN MANUEL (11/09/2024 7:46 PM EDT) Anti IgG JUAN MANUEL NEG 11/09/2024 10:36 PM EDT [facility] Blood Venous blood specimen / Unknown Venipuncture / Unknown 11/09/2024 7:46 PM EDT 11/09/2024 9:01 PM EDT [facility] LAB BLOOD BANK TEST ORDERABLES Performing Organization Address City/[facility] Co de Phone Number [facility] * T4, free (11/09/2024 7:46 PM EDT) Free T4 1.41 0.71 - 1.85 ng/dL 11/09/2024 11:25 PM EDT [facility] Blood Venous blood specimen / Unknown Venipuncture / Unknown 11/09/2024 7:46 PM EDT 11/09/2024 9:03 PM EDT [facility] LAB BLOOD ORDERABLES Performing Organization Address City/[facility] Co de Phone Number [facility] (BEAKER) [address] [place], [place] [id number] * (ABNORMAL) Manual Differential (11/09/2024 7:46 PM EDT) Pathologist [facility] Immature Granulocytes % 3.4(H) 0.0 - 1.0 % 11/09/2024 9:46 PM EDT [facility] (BEAKER) Neutrophils Absolute 1.4(L) 1.6 - 7.6 10*3/uL 11/09/2024 9:46 PM EDT [facility] ([facility]) Lymphocytes Absolute 1.63 1.20 - 4.00 10*3/uL 11/09/2024 9:46 PM EDT [facility] ([facility]) Monocytes Absolute 0.29 0.10 - 1.00 10*3/uL 11/09/2024 9:46 PM EDT [facility] ([facility]) Eosinophils Absolute 0.00 0.00 - 0.50 10*3/uL 11/09/2024 9:46 PM T [facility] ([facility]) Basophils Absolute 0.01 0.00 - 0.20 10*3/uL 11/09/2024 9:46 PM T [facility] ([facility]) Anisocytosis Moderate 11/09/2024 9:46 PM [facility]) Poikilocytes Slight 11/09/2024 9:46 PM T [facility] ([facility]) Polychromasia Slight 11/09/2024 9:46 PM T [facility] ([facility]) Neutrophils % 41.3 40.0 - 72.0 % 11/09/2024 9:46 PM T [facility] ([facility]) Lymphocytes % 46.7(H) 20.0 - 45.0 % 11/09/2024 9:46 PM [facility] ([facility]) Monocytes % 8.3 5.0 - 12.0 % 11/09/2024 9:46 PM T [facility]) Eosinophils % 0.0 0.0 - 6.0 % 11/09/2024 9:46 PM [facility] ([facility]) Basophils % 0.3 0.0 - 1.0 % 11/09/2024 9:46 PM T [facility]) Immature Granulocytes Absolute 0.12 0.00 - 0.20 10*3/uL 11/09/2024 9:46 PM [facility]) Blood Venous blood specimen / Unknown Venipuncture / Unknown 11/09/2024 7:46 PM EDT 11/09/2024 9:03 PM EDT [facility] LAB BLOOD ORDERABLES [facility] ([facility]) [address] [place] [address] * Type and screen (11/09/2024 7:46 PM EDT) ABO Grouping O 11/09/2024 10:22 PM EDT [facility] Rh Type POS 11/09/2024 10:22 PM EDT [facility] Ab Scrn POS 11/09/2024 10:22 PM EDT [facility] Blood Venous blood specimen / Unknown Venipuncture / Unknown 11/09/2024 7:46 PM EDT 11/09/2024 9:01 PM EDT [facility] LAB BLOOD BANK TEST ORDERABLES Performing Organization Address City/[facility]/ZIP Co de Phone Number [facility] * (ABNORMAL) Vitamin D 25 hydroxy (11/09/2024 7:46 PM EDT) Vit D, 25-Hydroxy 10.2(L) 30.0 - 80.0 ng/mL 11/09/2024 9:54 PM EDT [facility] ([facility]) Comment:>80.0 Toxicity possi ble Blood Venous blood specimen / Unknown Venipuncture / Unknown 11/09/2024 7:46 PM EDT 11/09/2024 9:03 PM EDT [facility] LAB BLOOD ORDERABLES Performing Organization Address City/[facility]/ZIP Co de Phone Number [facility] ([facility]) [address] [place] [address] * (ABNORMAL) TSH3 Reflex to FT4 (11/09/2024 7:46 PM EDT) TSH 0.13(L) 0.34 - 5.60 mIU/L 11/09/2024 9:53 PM EDT [facility] ([facility]) Blood Venous blood specimen / Unknown Venipuncture / Unknown 11/09/2024 7:46 PM EDT 11/09/2024 9:03 PM EDT [facility] BLOOD ORDERABLES [facility] ([facility]) [address] [place] [address] * (ABNORMAL) Vitamin B12 (11/09/2024 7:46 PM EDT) [facility] Vitamin B-12 1,113(H) 180 - 914 pg/mL 11/09/2024 9:56 PM EDT [facility] ([facility]) Comment: REFERENCE RANGES: 180-914 pg/mL Normal 145-179 pg/mL Indeterminate <145 pg/mL Deficient Blood Venous blood specimen / Unknown Venipuncture / Unknown 11/09/2024 7:46 PM EDT 11/09/2024 9:03 PM EDT Rebecca [facility] LAB BLOOD ORDERABLES [facility]) [address] [place], [place] [id number] * High Sensitivity Troponin I (11/09/2024 7:46 PM EDT) [facility] High Sensitivity Troponin I 7 <15 ng/L 11/09/2024 9:39 PM EDT [facility]) Blood Venous blood specimen / Unknown Venipuncture / Unknown 11/09/2024 7:46 PM EDT 11/09/2024 9:03 PM EDT [facility] LAB BLOOD ORDERABLES [facility]) [address] [place] [address] * (ABNORMAL) CK total and CKMB (11/09/2024 7:46 PM EDT) [facility] Total CK 43.0 30.0 - 223.0 U/L 11/09/2024 9:39 PM EDT [facility] ([facility]) CK-MB Index 3.0(H) 0.0 - 1.9 11/09/2024 9:39 PM EDT [facility] ([facility]) CK-MB 1.3 0.0 - 5.0 ng/mL 11/09/2024 9:39 PM EDT [facility] ([facility]) Blood Venous blood specimen / Unknown Venipuncture / Unknown 11/09/2024 7:46 PM EDT 11/09/2024 9:03 PM EDT [facility] LAB BLOOD ORDERABLES [facility] (JOSEY) [address] [place] [address] * (ABNORMAL) Venous blood gas with ionized calcium (11/09/2024 7:46 PM EDT) pH, Krystian 7.43(H) 7.31 - 7.41 11/09/2024 8:17 PM EDT [facility] pCO2, Krystian 44 40 - 50 mmHg 11/09/2024 8:17 PM EDT [facility] pO2, Krystian 45 35 - 45 mmHg 11/09/2024 8:17 PM EDT [facility] HCO3, Venous 29.2 mmol/L 11/09/2024 8:17 PM EDT [facility] Calcium, Ion 1.24 1.15 - 1.33 mmol/L 11/09/2024 8:17 PM EDT [facility] O2 Sat, Krystian 75.0 65.0 - 75.0 % 11/09/2024 8:17 PM EDT [facility]ER[facility] Base Excess, Krystian 4.2 mmol/L 11/09/2024 8:17 PM EDT [facility] Blood Venous blood specimen / Unknown Venipuncture / Unknown 11/09/2024 7:46 PM EDT 11/09/2024 8:15 PM EDT [facility] LAB BLOOD ORDERABLES [facility] [address] [place] [address], * Ammonia (11/09/2024 7:46 PM EDT) [facility] Ammonia 31 18 - 72 umol/L 11/09/2024 8:53 PM EDT [facility] ([facility]) Blood Venous blood specimen / Unknown Venipuncture / Unknown 11/09/2024 7:46 PM EDT 11/09/2024 8:05 PM EDT [facility] LAB BLOOD ORDERABLES [facility] ([facility]) [address] [place] [address] * (ABNORMAL) CBC auto differential (11/09/2024 7:46 PM EDT) [facility] Auto WBC 3.49(L) 4.00 - 10.60 10*3/uL 11/09/2024 9:46 PM EDT [facility] ([facility]) RBC 2.39(L) 3.80 - 5.00 10*6/uL 11/09/2024 9:46 PM EDT [facility] ([facility]) Hemoglobin 8.4(L) 12.0 - 15.0 g/dL 11/09/2024 9:46 PM EDT [facility] ([facility]) Hematocrit 24.8(L) 36.0 - 45.0 % 11/09/2024 9:46 PM EDT [facility] ([facility]) MCV 103.8(H) 82.0 - 98.0 fL 11/09/2024 9:46 PM EDT [facility] ([facility]) MCH 35.1(H) 27.0 - 33.0 pg 11/09/2024 9:46 PM EDT [facility] ([facility]) MCHC 33.9 32.0 - 35.0 g/dL 11/09/2024 9:46 PM EDT [facility] ([facility]) Platelets 26(L) 150 - 400 10*3/uL 11/09/2024 9:46 PM EDT [facility] ([facility]) nRBC % 2.9(H) 0 % 11/09/2024 9:46 PM EDT [facility] ([facility]) Immature Platelet Fraction % 8.0(H) 0.8 - 6.3 % 11/09/2024 9:46 PM EDT [facility] ([facility]) Blood Venous blood specimen / Unknown Venipuncture / Unknown 11/09/2024 7:46 PM EDT 11/09/2024 9:03 PM EDT [facility] BLOOD ORDERABLES [facility] ([facility]) [address] [place] [address] * (ABNORMAL) Protime-INR (11/09/2024 7:46 PM EDT) Protime 15.1(H) 12.3 - 14.8 Seconds 11/09/2024 9:23 PM EDT [facility] ([facility]) INR 1.20(H) 0.90 - 1.10 11/09/2024 9:23 PM EDT [facility] ([facility]) Comment: [facility] RECOMMENDED INR FOR [facility] THERAPY CONDITION INR PROPHYLAXIS OF VENOUS THROMBOSIS 2-3 (HIGH-RISK SURGERY) TREATMENT OF VENOUS THROMBOSIS 2-3 TREATMENT OF PULMONARY EMBOLISM 2-3 PREVENTION OF SYSTEMIC EMBOLISM: 2-3 ACUTE MYOCARDIAL INFARCTION TISSUE HEART VALVES VALVULAR HEART DISEASE ATRIAL FIBRILLATION RECURRENT SYSTEMIC EMBOLISM MECHANICAL HEART VALVE 2.5-3.5 FROM: ORAL ANTICOAGULANTS. MECHANISM OF ACTION, CLINICAL EFFECTIVENESS, AND OPTIMAL THERAPEUTIC RANGE. CHEST 1995;[id number]. Blood Venous blood specimen / Unknown Venipuncture / Unknown 11/09/2024 7:46 PM EDT 11/09/2024 9:01 PM EDT Rebecca [facility] LAB BLOOD ORDERABLES Performing Organization Address City/[facility]/ZIP Co de Phone Number [facility]) [address] [place] [phone] * Phosphorus (11/09/2024 7:46 PM EDT) Phosphorus 2.9 2.5 - 5.0 mg/dL 11/09/2024 9:28 PM EDT [facility]) Blood Venous blood specimen / Unknown Venipuncture / Unknown 11/09/2024 7:46 PM EDT 11/09/2024 9:03 PM EDT [facility] LAB BLOOD ORDERABLES Performing Organization Address [facility]/ZIP Co de Phone Number [facility]) [address] [place] [phone] * Magnesium (11/09/2024 7:46 PM EDT) Magnesium 1.9 1.9 - 2.7 mg/dL 11/09/2024 9:28 PM EDT [facility]) Blood Venous blood specimen / Unknown Venipuncture / Unknown 11/09/2024 7:46 PM EDT 11/09/2024 9:03 PM EDT [facility] LAB BLOOD ORDERABLES Performing Organization Address City/[facility]/ZIP Co de Phone Number [facility]) [address] [place] [phone] * (ABNORMAL) Comprehensive metabolic panel (11/09/2024 7:46 PM EDT) Sodium 142 136 - 145 mmol/L 11/09/2024 9:28 PM EDT [facility] ([facility]) Potassium 3.6 3.5 - 5.1 mmol/L 11/09/2024 9:28 PM EDT [facility] ([facility]) Chloride 107 98 - 107 mmol/L 11/09/2024 9:28 PM EDT [facility] ([facility]) CO2 37(H) 21 - 31 mmol/L 11/09/2024 9:28 PM EDT [facility] ([facility]) Anion Gap 2(L) 7 - 20 mmol/L 11/09/2024 9:28 PM EDT [facility] ([facility]) BUN 23 7 - 25 mg/dL 11/09/2024 9:28 PM EDT [facility] ([facility]) Creatinine 0.79 0.60 - 1.20 mg/dL 11/09/2024 9:28 PM EDT [facility] ([facility]) BUN/Creatinine Ratio 29.1 10/26 9:28 PM EDT [facility] ([facility]) Glucose 93 70 - 100 mg/dL 11/09/2024 9:28 PM T [facility] ([facility]) Calcium 8.9 8.6 - 10.3 mg/dL 11/09/2024 9:28 PM EDT [facility] ([facility]) AST 27 13 - 39 U/L 11/09/2024 9:28 PM T [facility] ([facility]) ALT (SGPT) 22 7 - 52 U/L 11/09/2024 9:28 PM EDT [facility] ([facility]) Alkaline Phosphatase 89 34 - 104 U/L 11/09/2024 9:28 PM T [facility] ([facility]) Total Protein 5.9(L) 6.0 - 8.3 g/dL 11/09/2024 9:28 PM T [facility] ([facility]) Albumin 4.0 3.5 - 5.7 g/dL 11/09/2024 9:28 PM T [facility] ([facility]) Total Bilirubin 1.0 0.3 - 1.0 mg/dL 11/09/2024 9:28 PM EDT [facility] ([facility]) eGFR 85.0 >60.0 mL/min/1. 73m*2 11/09/2024 9:28 PM EDT [facility]) Comment:The [facility] s estimated glomerular filtration rate (eGFR) will no longer include consideration of race in its calculation. The [employer] s eGFR Task Force developed new recommendations for the estimation of the glomerular filtration rate in the [place] They recommend immediate implementation of the new equation refit without the race variable in all laboratories because the calculation does not include race. In addition to not including race in the calculation and reporting, it included diversity in its development, and has acceptable performance characteristics and potential consequences that do not disproportionately affect any one group of individuals. Blood Venous blood specimen / Unknown Venipuncture / Unknown 11/09/2024 7:46 PM EDT 11/09/2024 9:03 PM EDT Rebecca Rickey [facility] LAB BLOOD ORDERABLES [facility]) [address] [place] [address] documented in this encounter Visit Diagnoses Diagnosis Pancytopenia (CMS/HCC)- Primary Pancytopenia (CMS/HCC) Vitamin D deficiency Vitamin B12 deficiency Other B-complex deficiencies Acute encephalopathy Acute cystitis without hematuria DM2 (diabetes mellitus, type 2) (CMS/HCC) Acquired hypothyroidism Unspecified hypothyroidism GERD (gastroesophageal reflux disease) Esophageal reflux HLD (hyperlipidemia) Other and unspecified hyperlipidemia Anxiety Anxiety state, unspecified Moderate protein-calorie malnutrition Heart murmur Undiagnosed cardiac murmurs Vitamin B12 deficiency Other B-complex deficiencies Transaminitis Nonspecific elevation of levels of transaminase or lactic acid dehydrogenase (LDH) documented in this encounter Admitting Diagnoses Diagnosis Pancytopenia (CMS/HCC) documented in this encounter Administered Medications Inactive Administered Medications - up to 3 most recent administrations Medication Order MAR Action Action Date Dose Rate Site citalopram (CeleXA) tablet 20 mg 20 mg, oral, Daily, First dose on Wed11/10/24 at 1000, For 99 days Given 11/11/2024 9:48 AM EDT 20 mg Given 11/10/2024 10:27 AM EDT 20 mg citalopram (CeleXA) tablet 20 mg 20 mg, oral, Nightly, First dose (after last modification) on Wed11/12/24 at 2200 Given 11/13/2024 9:36 PM EDT 20 mg Given 11/12/2024 9:39 PM EDT 20 mg clonazePAM (KlonoPIN) tablet 2 mg 2 mg, oral, 3 times daily PRN, anxiety, Starting on Wed11/09/24 at 2320, For 99 days Given 11/14/2024 1:39 PM EDT 2 mg Given 11/13/2024 1:00 PM EDT 2 mg Given 11/11/2024 10:02 PM EDT 2 mg cyanocobalamin (Vitamin B-12) tablet 1,000 mcg 1,000 mcg, oral, Daily, First dose on Wed11/13/24 at 1000, For 99 days Given 11/14/2024 9:27 AM EDT 1,000 mcg Given 11/13/2024 9:08 AM EDT 1,000 mcg dextrose 50 % in water (D50W) syringe 25 g 25 g, intravenous, Every 15 min PRN, capillary blood glucose < 70 mg/dL and patient unable to take oral and has IV access, Starting on Dee 11/09/24 at 1947, For 99 days, - Recheck blood glucose 5 minutes after dextrose administration. - Repeat treatment as ordered until blood glucose is greater than or equal to 80 mg/dL. - Provide a snack/meal within 1 hour after correction of hypoglycemia if not NPO. - If patient NPO or on enteral tube feeds, contact physician for potential additional interventions(s) (i.e. 5% or 10% dextrose IV fluids or tube feeding bolus) ergocalciferol (Vitamin D-2) capsule 50,000 Units 50,000 Units, oral, Weekly, First dose on Wed11/13/24 at 0700, For 99 days Given 11/13/2024 6:31 AM EDT 50,000 Units fentaNYL (Sublimaze) injection intravenous, As needed, Starting on Wed11/10/24 at 1404, Intraprocedure Given 11/10/2024 2:04 PM EDT 50 mcg glucose chewable tablet 24 g 24 g, oral, Every 15 min PRN, capillary blood glucose < 70 mg/dL and patient alert and eating, Starting on Dee 11/09/24 at 1947, For 99 days, - Recheck blood glucose 5 minutes after dextrose administration. - Repeat treatment as ordered until blood glucose is greater than or equal to 80 mg/dL. - Provide a snack/meal within 1 hour after correction of hypoglycemia if not NPO. - If patient NPO or on enteral tube feeds, contact physician for potential additional interventions(s) (i.e. 5% or 10% dextrose IV fluids or tube feeding bolus) insulin lispro (HumaLOG) injection 0-4 Units 0-4 Units, subcutaneous, Nightly, First dose on Dee 11/09/24 at 2200, For 99 days, BG less than 110 instructions: Hold Insulin. If BG below 70, implement hypoglycemia orders., BG 110-150: 0, BG 151-200: 0, BG 201-250: 1, BG 251-300: 2, BG 301-350: 3, BG 351-400: 4, BG greater than 400 instructions: Call Physician insulin lispro (HumaLOG) injection 0-5 Units 0-5 Units, subcutaneous, 3 times daily with meals, First dose on Wed11/10/24 at 0800, For 99 days, BG less than 110 instructions: Hold Insulin. If BG below 70, implement hypoglycemia orders., BG 110-150: 0, BG 151-200: 1, BG 201-250: 2, BG 251-300: 3, BG 301-350: 4, BG 351-400: 5, BG greater than 400 instructions: Call Physician Given 11/14/2024 9:27 AM EDT 1 Units Left Lower Abdomen Given 11/13/2024 5:10 PM EDT 1 Units Le ft Upper Arm (Back) iohexol (OMNIPaque) 350 mg iodine/mL injection 100 mL 100 mL, intravenous, Once in imaging, Starting on Wed11/10/24 at 1658, For 1 dose Given 11/10/2024 4:58 PM E DT 100 mL iron sucrose (Venofer) injection 200 mg 200 mg, intravenous, Every 24 hours, First dose on Wed11/11/24 at 1315, For 5 doses, Give undiluted IV Push over 2 to 5 minutes. Given 11/14/2024 1:29 PM E DT 200 mg Given 11/13/2024 1:00 PM EDT 200 mg Given 11/12/2024 1:58 PM EDT 200 mg levothyroxine (Synthroid, Levoxyl) tablet 125 mcg 125 mcg, oral, Daily before breakfast, First dose on Wed11/10/24 at 0730, For 99 days Given 11/14/2024 6:46 AM EDT 125 mcg Given 11/13/2024 6:32 AM EDT 125 mcg Given 11/12/2024 6:34 AM EDT 125 mcg lidocaine HCl (Xylocaine) 10 mg/mL (1 %) injection infiltration, As needed, Starting on Wed11/10/24 at 1404, Intraprocedure Given 11/10/2024 2:04 PM EDT 20 mL Lower Back liothyronine (Cytomel) tablet 10 mcg 10 mcg, oral, Daily, First dose on Wed11/10/24 at 1000, For 99 days Given 11/14/2024 9:27 AM EDT 10 mcg Given 11/13/2024 9:08 AM EDT 10 mcg Given 11/12/2024 9:28 AM EDT 10 mcg midazolam (Versed) injection intravenous, As needed, Starting on Wed11/10/24 at 1400, Intraprocedure Given 11/10/2024 2:00 PM EDT 1 mg ondansetron HCl (PF) (Zofran) injection 4 mg 4 mg, intravenous, Every 6 hours PRN, nausea, vomiting, Starting on Wed11/09/24 at 2049, For 99 days, Give IV if patient is unable to take orally. Administer as an IV push over 2 to 5 minutes. ondansetron ODT (Zofran-ODT) disintegrating tablet 4 mg 4 mg, oral, Every 8 hours PRN, nausea, vomiting, Starting on Wed11/09/24 at 2049, For 99 days pantoprazole (ProtoNix) EC tablet 40 mg 40 mg, oral, Daily at 7am, First dose on Wed11/10/24 at 0700, Do not crush, chew, or split., Indication: GERD Given 11/14/2024 6:46 AM EDT 40 mg Given 11/13/2024 6:32 AM EDT 40 mg Given 11/12/2024 6:34 AM EDT 40 mg potassium chloride CR (Klor-Con M20) ER tablet 20 mEq 20 mEq, oral, Every 1 hour, First dose on Wed11/13/24 at 0615, For 2 doses, Serum K 3-3.4 Do not crush or chew. Given 11/13/2024 7:26 AM EDT 20 mEq Given 11/13/2024 6:32 AM EDT 20 mEq rosuvastatin (Crestor) tablet 5 mg 5 mg, oral, Daily, First dose on Wed11/10/24 at 1000, For 99 days Given 11/11/2024 9:48 AM EDT 5 mg Given 11/10/2024 10:27 AM EDT 5 mg rosuvastatin (Crestor) tablet 5 mg 5 mg, oral, Nightly, First dose (after last modification) on 11/12/24 at 2200 Given 11/13/2024 9:36 PM EDT 5 mg Given 11/12/2024 9:39 PM EDT 5 mg sodium chloride 0.9 % bolus 250 mL 250 mL, intravenous, at 250 mL/hr, Administer over 1 Hours, Once, On 11/11/24 at 0245, For 1 dose, Indication: low blood pressure New Bag 11/11/2024 2:37 AM EDT 250 mL 250 mL/hr sodium chloride flush 10 mL 10 mL, intravenous, Every 8 hours PRN, line care, Starting on Dee 11/09/24 at 2048, For 99 days sucralfate (Carafate) suspension 1 g 1 g, oral, 4 times daily, First dose on Dee 11/09/24 at 2330, For 99 days Given 11/14/2024 1:29 PM EDT 1 g Given 11/14/2024 9:27 AM EDT 1 g Given 11/13/2024 9:36 PM EDT 1 g documented in this encounter Active and Recently Administered Medications Times are shown in EDT. Scheduled Medication Order 11/12/2024 11/13/2024 11/14/2024 citalopram (CeleXA) tablet 20 mg 20 mg, oral, Nightly, First dose (after last modification) on Wed11/12/24 at 2200 213 (Given - Provider: Justino Ledezma RN) 2135 (Given - Provider: Ebony Rojas RN) cyanocobalamin (Vitamin B-12) tablet 1,000 mcg 1,000 mcg, oral, Daily, First dose on Wed11/13/24 at 1000, For 99 days 0908 (Given - Provider: Kady Guy RN) 0927 (Given - Provider: Sulema Ku RN) ergocalciferol (Vitamin D-2) capsule 50,000 Units 50,000 Units, oral, Weekly, First dose on Wed11/13/24 at 0700, For 99 days 0631 (Given - Provider: Justino Ledezma RN) insulin lispro (HumaLOG) injection 0-4 Units(Linked Group 1) 0-4 Units, subcutaneous, Nightly, First dose on Wed11/09/24 at 2200, For 99 days, BG less than 110 instructions: Hold Insulin. If BG below 70, implement hypoglycemia orders., BG 110-150: 0, BG 151-200: 0, BG 201-250: 1, BG 251-300: 2, BG 301-350: 3, BG 351-400: 4, BG greater than 400 instructions: Call Physician 2199 (Not Given - Provider: Justino Ledezma RN - Reason: Order parameters not met) 2199 (Not Given - Provider: Ebony Rojas RN - Reason: Order parameters not met) insulin lispro (HumaLOG) injection 0-5 Units(Linked Group 1) 0-5 Units, subcutaneous, 3 times daily with meals, First dose on Wed11/10/24 at 0800, For 99 days, BG less than 110 instructions: Hold Insulin. If BG below 70, implement hypoglycemia orders., BG 110-150: 0, BG 151-200: 1, BG 201-250: 2, BG 251-300: 3, BG 301-350: 4, BG 351-400: 5, BG greater than 400 instructions: Call Physician 0800 (Not Given - Provider: Linh Schmitt RN - Reason: Order parameters not met)1200 (Not Given - Provider: Linh Schmitt RN - Reason: Order parameters not met)1700 (Not Given - Provider: Linh Schmitt RN - Reason: Order parameters not met) 0800 (Not Given - Provider: Kady Guy RN - Reason: Order parameters not met)1200 (Not Given - Provider: Kady Guy RN - Reason: Order parameters not met)1710 (Given - Provider: Kady Guy RN) 0927 (Given - Provider: Sulema Ku, CHARIS)1200 (Not Given - Provider: Sulema Ku RN - Reason: Order parameters not met)1700 (Canceled Entry - Provider: Automatic Discharge Provider - Comment: Automatically canceled at discontinue of medication order) iron sucrose (Venofer) injection 200 mg 200 mg, intravenous, Every 24 hours, First dose on Wed11/11/24 at 1315, For 5 doses, Give undiluted IV Push over 2 to 5 minutes. 1358 (Given - Provider: Linh Schmitt RN) 1300 (Given - Provider: Kady Guy RN) 1329 (Given - Provider: Sulema Ku RN) levothyroxine (Synthroid, Levoxyl) tablet 125 mcg 125 mcg, oral, Daily before breakfast, First dose on Wed11/10/24 at 0730, For 99 days 0634 (Given - Provider: Joaquina Tavera RN) 0632 (Given - Provider: Justino Ledezma RN) 0646 (Given - Provider: Ebony Rojas, CHARIS) liothyronine (Cytomel) tablet 10 mcg 10 mcg, oral, Daily, First dose on Wed11/10/24 at 1000, For 99 days 0928 (Given - Provider: Linh Schmitt RN) 0908 (Given - Provider: Kady Guy, CHARIS) 0927 (Given - Provider: Sulema Ku, CHARIS) pantoprazole (ProtoNix) EC tablet 40 mg 40 mg, oral, Daily at 7am, First dose on Wed11/10/24 at 0700, Do not crush, chew, or split., Indication: GERD 0634 (Given - Provider: Joaquina Tavera RN) 0632 (Given - Provider: Justino Ledezma RN) 0646 (Given - Provider: Ebony Rojas RN) potassium chloride CR (Klor-Con M20) ER tablet 20 mEq (COMPLETED) 20 mEq, oral, Every 1 hour, First dose on Wed11/13/24 at 0615, For 2 doses, Serum K 3-3.4 Do not crush or chew. 0632 (Given - Provider: Justino Ledezma RN)0726 (Given - Provider: Justino Ledezma RN) rosuvastatin (Crestor) tablet 5 mg 5 mg, oral, Nightly, First dose (after last modification) on [place] 11/12/24 at 2200 2139 (Given - Provider: Justino Ledezma RN) 213 (Given - Provider: Ebony Rojas, CHARIS) sucralfate (Carafate) suspension 1 g 1 g, oral, 4 times daily, First dose on Dee 11/09/24 at 2330, For 99 days 0928 (Given - Provider: Linh Schmitt RN)1358 (Given - Provider: Linh Schmitt RN)1738 (Given - Provider: Linh Schmitt RN)213 (Given - Provider: Justino Ledezma RN) 0908 (Given - Provider: Kady Guy, CHARIS)1300 (Given - Provider: Kady Guy, RN)1711 (Given - Provider: Kady Guy, RN)213 (Given - Provider: Ebony Rojas, CHARIS) 0927 (Given - Provider: Sulema Ku, CHARIS)1329 (Given - Provider: Sulema Ku, CHARIS) PRN Medication Order 11/12/2024 11/13/2024 11/14/2024 acetaminophen (Tylenol) tablet 650 mg 650 mg, oral, Every 6 hours PRN, mild pain (1-3 pain score), (1-3), Starting on Dee 11/09/24 at 2048, For 99 days clonazePAM (KlonoPIN) tablet 2 mg 2 mg, oral, 3 times daily PRN, anxiety, Starting on Dee 11/09/24 at 2320, For 99 days 1300 (Given - Provider: Kady Guy, CHARIS) 1339 (Given - Provider: Sulema Ku, CHARIS) dextrose 50 % in water (D50W) syringe 25 g(Linked Group 2) 25 g, intravenous, Every 15 min PRN, capillary blood glucose < 70 mg/dL and patient unable to take oral and has IV access, Starting on Dee 11/09/24 at 1947, For 99 days, - Recheck blood glucose 5 minutes after dextrose administration. - Repeat treatment as ordered until blood glucose is greater than or equal to 80 mg/dL. - Provide a snack/meal within 1 hour after correction of hypoglycemia if not NPO. - If patient NPO or on enteral tube feeds, contact physician for potential additional interventions(s) (i.e. 5% or 10% dextrose IV fluids or tube feeding bolus) glucose chewable tablet 24 g(Linked Group 2) 24 g, oral, Every 15 min PRN, capillary blood glucose < 70 mg/dL and patient alert and eating, Starting on Dee 11/09/24 at 1947, For 99 days, - Recheck blood glucose 5 minutes after dextrose administration. - Repeat treatment as ordered until blood glucose is greater than or equal to 80 mg/dL. - Provide a snack/meal within 1 hour after correction of hypoglycemia if not NPO. - If patient NPO or on enteral tube feeds, contact physician for potential additional interventions(s) (i.e. 5% or 10% dextrose IV fluids or tube feeding bolus) melatonin tablet 5 mg 5 mg, oral, Nightly PRN, sleep, Starting on Wed11/09/24 at 2047, For 99 days ondansetron HCl (PF) (Zofran) injection 4 mg(Linked Group 3) 4 mg, intravenous, Every 6 hours PRN, nausea, vomiting, Starting on Dee 11/09/24 at 2049, For 99 days, Give IV if patient is unable to take orally. Administer as an IV push over 2 to 5 minutes. ondansetron ODT (Zofran-ODT) disintegrating tablet 4 mg(Linked Group 3) 4 mg, oral, Every 8 hours PRN, nausea, vomiting, Starting on Dee 11/09/24 at 2049, For 99 days sodium chloride flush 10 mL(Linked Group 4) 10 mL, intravenous, Every 8 hours PRN, line care, Starting on Dee 11/09/24 at 2047, For 99 days Linked Groups Order Group 1: insulin lispro (HumaLOG) injection 0-5 UnitsJump to med 0-5 Units, subcutaneous, 3 times daily with meals, First dose on Wed11/10/24 at 0800, For 99 days, BG less than 110 instructions: Hold Insulin. If BG below 70, implement hypoglycemia orders., BG 110-150: 0, BG 151-200: 1, BG 201-250: 2, BG 251-300: 3, BG 301-350: 4, BG 351-400: 5, BG greater than 400 instructions: Call Physician And insulin lispro (HumaLOG) injection 0-4 UnitsJump to med 0-4 Units, subcutaneous, Nightly, First dose on Wed11/09/24 at 2200, For 99 days, BG less than 110 instructions: Hold Insulin. If BG below 70, implement hypoglycemia orders., BG 110-150: 0, BG 151-200: 0, BG 201-250: 1, BG 251-300: 2, BG 301-350: 3, BG 351-400: 4, BG greater than 400 instructions: Call Physician Group 2: glucose chewable tablet 24 gJump to med 24 g, oral, Every 15 min PRN, capillary blood glucose < 70 mg/dL and patient alert and eating, Starting on Dee 11/09/24 at 1947, For 99 days, - Recheck blood glucose 5 minutes after dextrose administration. - Repeat treatment as ordered until blood glucose is greater than or equal to 80 mg/dL. - Provide a snack/meal within 1 hour after correction of hypoglycemia if not NPO. - If patient NPO or on enteral tube feeds, contact physician for potential additional interventions(s) (i.e. 5% or 10% dextrose IV fluids or tube feeding bolus) Or dextrose 50 % in water (D50W) syringe 25 gJump to med 25 g, intravenous, Every 15 min PRN, capillary blood glucose < 70 mg/dL and patient unable to take oral and has IV access, Starting on Dee 11/09/24 at 1947, For 99 days, - Recheck blood glucose 5 minutes after dextrose administration. - Repeat treatment as ordered until blood glucose is greater than or equal to 80 mg/dL. - Provide a snack/meal within 1 hour after correction of hypoglycemia if not NPO. - If patient NPO or on enteral tube feeds, contact physician for potential additional interventions(s) (i.e. 5% or 10% dextrose IV fluids or tube feeding bolus) Group 3: ondansetron ODT (Zofran-ODT) disintegrating tablet 4 mgJump to med 4 mg, oral, Every 8 hours PRN, nausea, vomiting, Starting on Dee 11/09/24 at 2050, For 99 days Or ondansetron HCl (PF) (Zofran) injection 4 mgJump to med 4 mg, intravenous, Every 6 hours PRN, nausea, vomiting, Starting on Dee 11/09/24 at 2050, For 99 days, Give IV if patient is unable to take orally. Administer as an IV push over 2 to 5 minutes. Group 4: Insert peripheral IV (CANCELED) Once, On Dee 11/09/24 at 2048, For 1 occurrence And Saline lock IV (CANCELED) Once, On Dee 11/09/24 at 2048, For 1 occurrence And sodium chloride flush 10 mLJump to med 10 mL, intravenous, Every 8 hours PRN, line care, Starting on Dee 11/09/24 at 2047, For 99 days documented in this encounter Care Teams Teacher Resource Relationship Specialty Start Date End Date Henrik Downing MD [address] [place], [place] [id number] [id number] PCP - General Family Medicine 11/10/24 documented as of this encounter
--- OUTSIDE RECORDS SUMMARY | 2024-11-11 15:27 | XMS_ITS ---
Author Name Auto Generated Organization OHIP Care Team Providers Care Denture Model Maker Name Role Phone HAL BRAN Referring Unavailable PIRKL, REBECCA Referring Unavailable HOY, KAITLYN Referring Unavailable HORANI, DAYTON Admitting Unavailable ROSA MARIA HOOK Attending Unavailable HAL BRAN T Referring Unavailable HAL BRAN T Referring Unavailable CADE RAYA A Attending Unavailable Mouchli, Mohamad A. Attending Unavailable Mouchli, Mohamad A. Referring Unavailable Mouchli, Mohamad A. Admitting Unavailable Mouchli, Mohamad A. Referring Unavailable Mouchli, Mohamad A. Admitting Unavailable Mouchli, Mohamad A. Attending Unavailable Mouchli, Mohamad A. Attending Unavailable Mouchli, Mohamad A. Referring Unavailable Mouchli, Mohamad A. Admitting Unavailable Mouchli, Mohamad A. Attending Unavailable Mouchli, Mohamad A. Attending Unavailable Mouchli, Mohamad A. Attending Unavailable Mouchli, Mohamad A. Attending Unavailable Mouchli, Mohamad A. Referring Unavailable Mouchli, Mohamad A. Admitting Unavailable Mouchli, Mohamad A. Attending Unavailable Mouchli, Mohamad A. Referring Unavailable Mouchli, Mohamad A. Admitting Unavailable Roseline Melendrez Attending Unavailable Roseline Melendrez Referring Unavailable Roseline Melendrez. Admitting Unavailable Roseline Melendrez Attending Unavailable Jose Eduardo Ann Attending Unavailable Jose Eduardo Ann Admitting Unavailable Kaitlyn Downing Attending Unavailable Kaitlyn Downing Admitting Unavailable PROBLEMS DATE TYPE CONDITION / CODE ATTENDING STATUS [facility] 11/12/2024 Admitting Diagnosis Deficiency of other specified B group vitamins / E53.8(ICD-10) ROSA MARIA HOOK Active [facility] 11/09/2024 Admitting Diagnosis Other pancytopenia / D61.818(ICD-10) ROSA MARIA HOOK Active [facility] 11/09/2024 Admitting Diagnosis Vitamin D deficiency, unspecified / E55.9(ICD-10) [facility] ROSA MARIALora LINK Active [facility] PROCEDURES No Procedure Records Found RESULTS DS Observed: 11/14/2024 1:49 PM Status: COMPLETED Source: [facility] Hospital Medicine Discharge Summary Final Discharge Diagnosis: Pancytopenia - improving Status post bone marrow biopsy Symptomatic anemia Syncope - resolved Vitamin B12 deficiency Iron deficiency Acute encephalopathy - resolved Acute cystitis without hematuria Vitamin D deficiency Transaminitis - resolved Insulin dependent diabetes mellitus type II Acquired hypothyroidism GERD Anxiety Moderate protein-calorie malnutrition Admission Diagnosis: Pancytopenia (CMS/[facility]) [D61.818] Hospital course: Ms. Andreia Thomas is an 59 y.o. female who came from home with past medical history of DM2, hypothyroidism, GERD, hyperlipidemia, anxiety. She presented as a direct admission from [facility] with pancytopenia. Patient reports that she has had intermittent confusion over the last few days. at bedside also reports a syncopal episode this past Wednesday. Patient denies any prodromal symptoms. She is unclear if she hit her head. At [facility], CT of the head was completed showing [...] blood which did improve hemoglobin. Physician at [facility] reached out to her hematology/oncology team and they recommend transferring patient for further workup and bone marrow biopsy. Patient was admitted to hospitalist services for further evaluation and management. Patient was seen by hematology team as inpatient. She underwent significant work up for her pancytopenia. Labs ordered include, HIV (negative), [id number], LDH (high), retic count (normal). Sneha negative. CT chest, CT abd/pelvis were negative for lymphadenopathy. Patient underwent bone marrow biopsy on 11/10. Patient's blood count improved during hospitalization and her hemoglobin stabilized around 8.5 as well as leukopenia stabilizing around 3.3. Platelet count has improved from 26 to 113. Patient was seen and examined on 11/14 AM. She was resting in bed. She [...] morning for 97 doses. ergocalciferol 1.25 MG (03087 Units) capsule Commonly known as: Vitamin D-2 [...] Medications These medications were sent to [facility] - [address] [place] [address] [address] [facility] [place] [address], [place] [id number] cyanocobalamin 1,000 mcg tablet ergocalciferol 1.25 MG (10214 Units) capsule Andreia has No Known Allergies. [...] In process Cold agglutinin screen In process Mari-Hernandez virus VCA, IgM In process HSV 1 and 2 glycoprotein g-specific antibody, IgG In process IMMUNOFIXATION ELECTROPHORESIS & KAPPA/LAMBDA LIGHT CHAINS, BLOOD In process Immunofixation electrophoresis In process RAVENNA: LCMS, CHRBM, EXHD, HOLDF - Miscellaneous Test [...] Blood pressure 128/67, pulse 67, temperature 36.6 ???C (97.9 ???F), resp. rate 19, height 1.575 m (5' 2 ), weight 70.3 kg (154 lb 15.7 [...] family and documentation was 38 minutes. Signed Rosa Maria Hook MD [facility] Medicine 11/14/2024 1:49 PM CC: MD [place] PROGRESS Observed: 11/14/2024 1:41 PM Status: COMPLETED Source: [facility] Attestation signed by Betty Edmondson MD at 11/15/2024 1:59 PM Late Entry, patient was not seen during bedside rounds 11/14/2024 with fellow, Dr Morales. Has follow up scheduled with hem/onc. By using the attestations below, the signing clinician agrees that I have read and verify that the documentation has been personally reviewed by me and [...] or edited in note) Betty Edmondson MD Manager Brand Benjamin Shell M.D. Endowed Professor in Hematology Chief of Hematology/Oncology [facility], Hematology and Medical Oncology Fellowship Hematology/Oncology. Internal Medicine. [facility]. [facility]. Clinic: [phone] Office: [phone] HEMATOLOGY and MEDICAL ONCOLOGY: [facility] MD Dr. Юлия Mehta MD Patient name: Andreia Thomas Patient Today's Date and Time: 11/14/2024, 1:41 PM Admission Date: 11/09/2024 Impression: New onset pancytopenia Peripheral smear showed pancyopenia, LDH high, Haptoglobin low, bili was slightly elevated at [facility], normal here. Altered mental status, resolved here Macrocytosis Hypothyroidism DM2 Anxiety Recommendations: Bone marrow biopsy result pending, initial eval did not show schistocytes, blasts or promyelocytes. LDH high, Haptoglobin is low, retic count is normal, Sneha negative. [facility] flow cytometry, cold agglutinins and myeloma work up pending. BM biopsy done. Iron levels, B12 and Folate levels are adequate. ADAMTS [address] C/A/P negative for LAD to r/o lymphoma due to elevated LDH. Hb has been stable since [address] [facility]. PLT count has now improved over past [...] these hours, Please contact Hematology/Oncology Fellow through [employer] Chat first For Hematology Oncology needs on weekends and after hours, please page the on-call fellow through the hospital acid retort operator. Subjective Reason for consultation / Chief complaint: Pancytopenia History of Present Illness Andreia Thomas is a 59 y.o.-year-old female with PMH of DM2, dyslipidemia, hypothyroidism and anxiety who was admitted to [facility] due to confusion and weakness for the past 4-6 weeks. Spouse at bedside reports that she had been confused ON and OFF, although she is completely alert and oriented today. CT Head at [facility] was unremarkable, CT A/P was unremarkable. She was noted to have pancytopenia with WBC 2.2, Hb 5.3 and PLT 31, for which she was transferred to [facility]. Her blood work up available from 2019 [...] Examination: BP 128/67 Pulse 67 Temp 36.6 ???C (97.9 ???F) Resp 19 Ht 1.575 m (5' 2 ) Wt 70.3 kg (154 lb 15.7 oz) SpO2 97% BMI 28.35 kg/m??? Temperature Range: Temp: 36.6 ???C (97.9 ???F) Temp Av.5 ???C (97.7 ???F) Min: 36.2 ???C (97.1 ???F) Max: 36.7 ???C (98.1 ???F) General Appearance: Awake, alert, and in no apparent distress Eyes: Sclera anicteric Neck: Supple. Pulmonary/Chest: Regular respiratory rate, no resp distress Cardiovascular: Regular rate Abdomen: soft, non distended Extremities: No cyanosis, edema, erythema. No rash. Neurologic: Alert and oriented x 3, nonfocal; strength and sensation grossly normal Skin: No rash no lesions. + pallor Labs: Results from last 7 days Lab Units 11/14/2445211/13/2444211/12/24 0444 WBC AUTO 10*3/uL 3.30* 2.60* 2.32* HEMOGLOBIN g/dL 8.5* 8.2* 8.2* HEMATOCRIT % 27.7* 26.4* 25.4* MCV fL 106.9* 109.5* 108.5* PLATELETS AUTO 10*3/uL 113* 36* 17* NEUTROS ABS 10*3/uL 1.8 1.2* 1.0* EOS ABSOLUTE 10*3/uL 0.07 0.04 0.03 BASOS ABSOLUTE 10*3/uL 0.01 0.01 0.00 Results from last 7 days Lab Units 11/14/2445211/13/24 0443 11/10/24 0513 11/09/24 1946 POTASSIUM mmol/L [...] results found for the past 3 days 30 Observed: 11/14/2024 11:52 AM Status: COMPLETED Source: [facility] The patient is Moderately St able - Low risk of patient condition declining or worsening The patient's goals for the shift include sleep The clinical goals for the shift include vss, improved labs , free from falls, comfort, sleep POCT GLUCOSE METER UNSOLICIT ED RESULTS Collected: 11/14/2024 11:33 AM Status: UNK Source: [facility] Order Comment: Waived Testin g in the ED is performed under the ED CLIA certificate #[id number]. TYPE CODE TESTS RESULT OUT OF RANGE REFERENCE UNITS LAB 885 POCT GLUCOSE 134 High 70-105 mg/dL Result Comment: [email or web address] Performed By: #### [id number] #### [facility] ([facility]) [address] [place] [address] POCT GLUCOSE METER UNSOLICIT ED RESULTS Collected: 11/14/2024 7:07 AM Status: UNK Source: [facility] Order Comment: Waived Testin g in the ED is performed under the ED CLIA certificate #[id number]. TYPE CODE TESTS RESULT OUT OF RANGE REFERENCE UNITS LAB 885 POCT GLUCOSE 155 High 70-105 mg/dL Result Comment: [email or web address] Performed By: #### [id number] #### [facility] (BEAKER) [address] [place] [address] HIV COMBO 4G Collected: 11/14/2024 4:53 AM Status: U NK Source: [facility] TYPE CODE TESTS RESULT OUT OF RANGE REFERENCE UNITS LAB 1388 HIV COMBO 4G Negative Negative Result Comment: Received com ment: User comments: Slide comments: Performed By: #### [id number] # ### [facility] ([facility]) [address] [place] [address] BASIC METABOLIC PANEL Collected: 2024 4:53 AM Status: UNK Source: [facility] TYPE CODE TESTS RESULT OUT OF RANGE REFERENCE UNITS LAB 8145318 SODIUM (MMOL/L) IN SER/PLAS 142 136-145 mmol/L LAB 0978909 POTASSIUM (MMOL/L) IN SER/PLAS 3.8 3.5-5.1 mmol/L LAB 7784953 CHLORIDE (MMOL/L) IN SER/PLAS 111 High 98-107 mmol/L LAB 3005207 CARBON DIOXIDE, TOTAL (MMOL/L) IN SER/PLAS 29 21-31 mmol/L LAB 1712460 UREA NITROGEN (MG/DL) IN SER/PLAS 11 7-25 mg/dL LAB 4956360 CREATININE (MG/DL) IN SER/PLAS 0.58 Low 0.60-1.20 mg/dL LAB 1376618 GLUCOSE (MG/DL) IN SER/PLAS 122 High 70-100 mg/dL LAB 1882002 CALCIUM (MG/DL) IN SER/PLAS 8.3 Low 8.6-10.3 mg/dL LAB 7372057 ANION GAP IN SER/PLAS 6 Low 7-20 mmol/L LAB 9107398 GLOMERULAR FILTRATION RATE ML/MIN/1.73 SQ M.PREDICTED 102.9 >60.0 mL/min/ 1.73m*2 Result Comment: [facility]???s estimated glomerular filtration rate (eGFR) will no longer include consideration of race in its calculation. The National Kidney Foundation???s eGFR Task Force developed new recommendations for [...] disproportionately affect any one group of individuals. LAB 0983905 UREA NITROGEN/CREA TININE (MASS RATIO) IN SER/PLAS 19.0 NA Performed By: #### [id number] ### # [facility] (BEAKER) [address] [place] [address] CBC WITH AUTO DIFFERENTIAL Collected: 11/14/2024 4:53 AM Status: UNK Source: [facility] TYPE CODE TESTS RESULT OUT OF RANGE REFERENCE UNITS LAB 8851668 LEUKOCYTES(10*3/ UL) IN BLOOD BY AUTOMATED COUNT 3.30 Low 4.00-10.60 10*3/uL LAB 3055833 ERYTHROCYTES (10*6/UL) IN BLOOD BY AUTOMATED COUNT 2.59 Low 3.80-5.00 10*6/uL LAB 8347026 HEMOGLOBIN (G/DL) IN BLOOD 8.5 Low 12.0-15.0 g/dL LAB 0529754 HEMATOCRIT (%) IN BLOOD BY AUTOMATED COUNT 27.7 Low 36.0-45.0 % LAB 3925631 ERYTHROCYTE MEAN CORPUSCULAR VOLUME (FL) BY AUTOMATED COUNT 106.9 High 82.0-98.0 fL LAB 1278899 ERYTHROCYTE MEAN CORPUSCULAR HEMOGLOBIN (PG) BY AUTOMATED COUNT 32.8 27.0-33.0 pg LAB 4534612 ERYTHROCYTE MEAN CORPUSCULAR HEMOGLOBIN CONCENTRATION (G/DL) BY AUTOMATED 30.7 Low 32.0-35.0 g/dL LAB 7176042 ERYTHROCYTE DISTRIBUTION WIDTH (RATIO) BY AUTOMATED COUNT 20.9 High 11.5-15.0 % LAB 9806845 PLATELETS (10*3/UL) IN BLOOD AUTOMATED COUNT 113 Low 150-400 10*3/uL LAB 254 NRBC (PER 100 WBCS) BY AUTOMATED COUNT 1.8 High 0 % LAB 2878 IMMATURE PLATELET FRACTION % 5.0 0.8-6.3 % Performed By: #### [id number] # ### [facility] (BEAKER) [address] [place] [address] MANUAL DIFFERENTIAL Collected: 11/14/2024 4:[address] atus: UNK Source: [facility] TYPE CODE TESTS RESULT OUT OF RANGE REFERENCE UNITS LAB 1767 IMMATURE GRANULOCYTES/100 LEUKOCYTES IN BLOOD BY AUTOMATED COUNT 2.4 High 0.0-1.0 % LAB 6839027 NEUTROPHILS (10*3/UL) IN BLOOD BY CALCULATION 1.8 1.6-7.6 10*3/uL LAB 7958538 LYMPHOCYTES (10*3/UL) IN BLOOD BY CALCULATION 0.82 Low 1.20-4.00 10*3/uL LAB 0684965 MONOCYTES (10*3/UL) IN BLOOD BY CALCUATION 0.55 0.10-1.00 10*3/uL LAB 3772600 EOSINOPHILS (10*3/UL) IN BLOOD BY CALCULATION 0.07 0.00-0.50 10*3/uL LAB 1115985 BASOPHILS (10*3/UL) IN BLOOD BY CALCULATION 0.01 0.00-0.20 10*3/uL LAB 6919402 ANISOCYTOSIS PRESENCE IN BLOOD BY LIGHT MICROSCOPY Moderate LAB 6121046 POIKILOCYTOSIS (PRESENCE) IN BLOOD BY LIGHT MICROSCOPY Slight LAB 9016226 POLYCHROMASIA IN BLOOD BY LIGHT MICROSCOPY Slight LAB 0524264 NEUTROPHILS/100 LEUKOCYTES IN BLOOD BY AUTOMATED COUNT 53.7 40.0-72.0 % LAB 2751113 LYMPHOCYTES/100 LEUKOCYTES IN BLOOD BY AUTOMATED COUNT 24.8 20.0-45.0 % LAB 4349506 MONOCYTES/100 LEUKOCYTES IN BLOOD BY AUTOMATED COUNT 16.7 High 5.0-12.0 % LAB 0417413 EOSINOPHILS/100 LEUKOCYTES IN BLOOD BY AUTOMATED COUNT 2.1 0.0-6.0 % LAB 1599684 BASOPHILS/100 LEUKOCYTES IN BLOOD BY AUTOMATED COUNT 0.3 0.0-1.0 % LAB 2631 IMMATURE GRANULOCYTES (10*3/UL) IN BLOOD BY CALCULATION 0.08 0.00-0.20 10*3/uL Performed By: #### [id number] # ### [facility] (BEAKER) [address] [place] [address] 30 Observed: 11/14/2024 1:03 AM Status: COMPLETED Source: [facility] The patient is Moderately St able - Low risk of patient condition declining or worsening The patient's goals for the shift include sleep The clinical goals for the shift include VSS, improved labs, free from falls, comfort, sleep POCT GLUCOSE METER UNSOLICIT ED RESULTS Collected: 11/13/2024 9:34 PM Status: UNK Source: [facility] Order Comment: Waived Testin g in the ED is performed under the ED CLIA certificate #[id number]. TYPE CODE TESTS RESULT OUT OF RANGE REFERENCE UNITS LAB 885 POCT GLUCOSE 141 High 70-105 mg/dL Result Comment: [email or web address] Performed By: #### [id number] #### [facility] (BEAKER) [address] [place] [address] POCT GLUCOSE METER UNSOLICIT ED RESULTS Collected: 11/13/2024 5:07 PM Status: UNK Source: [facility] Order Comment: Waived Testin g in the ED is performed under the ED CLIA certificate #[id number]. TYPE CODE TESTS RESULT OUT OF RANGE REFERENCE UNITS LAB 885 POCT GLUCOSE 156 High 70-105 mg/dL Result Comment: [email or web address] Performed By: #### [id number] #### [facility] (BEAKER) [address] [place] [address] POCT GLUCOSE METER UNSOLICIT ED RESULTS Collected: 11/13/2024 11:40 AM Status: UNK Source: [facility] Order Comment: Waived Testin g in the ED is performed under the ED CLIA certificate #[id number]. TYPE CODE TESTS RESULT OUT OF RANGE REFERENCE UNITS LAB 885 POCT GLUCOSE 129 High 70-105 mg/dL Result Comment: [email or web address] Performed By: #### [id number] #### [facility] [address] [place] [address] POCT GLUCOSE METER UNSOLICIT ED RESULTS Collected: 11/13/2024 7:35 AM Status: UNK Source: [facility] Order Comment: Waived Testin g in the ED is performed under the ED CLIA certificate #[id number]. TYPE CODE TESTS RESULT OUT OF RANGE REFERENCE UNITS LAB 885 POCT GLUCOSE 139 High 70-105 mg/dL Result Comment: [email or web address] Performed By: #### [id number] #### [facility] ([facility]) [address] [place] [address] PROGRESS Observed: 11/13/2024 7:00 AM Status: COMPLETED Source: [facility] -Concerning for B12 deficien cy vs iatrogenic vs MDS vs MPN vs malignancy, less likely MAHA process -OSH smear showing rare schistocytes, repeat smear here negative for schistocytes -[id number] activity mildly low which is nonspecific, however [...] Plt <10 or <20 and active bleeding PROGRESS Observed: 11/13/2024 6:50 AM Status: COMPLETED Source: [facility] -quiet systolic murmur that was not heard on admission -likely this is high output -without schistocytes I do not feel overly compelled to obtain TTE at this point PROGRESS Observed: 11/13/2024 6:50 AM Status: COMPLETED Source: [facility] -Continue rosuvastatin PROGRESS Observed: 11/13/2024 6:50 AM Status: COMPLETED Source: [facility] -Continue Protonix PROGRESS Observed: 11/13/2024 6:50 AM Status: COMPLETED Source: [facility] -Treated with 3 days CTX and levofloxacin 11/07- at outside hospital -UA negative -Currently asymptomatic PROGRESS Observed: 11/13/2024 6:50 AM Status: COMPLETED Source: [facility] -RD following, see below PROGRESS Observed: 11/13/2024 6:50 AM Status: COMPLETED Source: [facility] -Continue levothyroxine -TSH low with normal T4 -Does have tender thyroid, check US thyroid -On chart review, several changes to liothyronine, check T3 PROGRESS Observed: 11/13/2024 6:50 AM Status: COMP LETED Source: [facility] -ISS, ACHS PROGRESS Observed: 11/13/2024 6:50 AM Status: COMPLETED Source: [facility] -Elevated at OSH but were un remarkable here -Hyperbilirubinemia, AST>ALT PROGRESS Observed: 11/13/2024 6:50 AM Status: COMPLETED Source: [facility] -Continue Celexa PROGRESS Observed: 11/13/2024 6:50 AM Status: COMPLETED Source: [facility] -Low at OSH and received mul tiple doses IM replacement -Appropriate levels on recheck here PROGRESS Observed: 11/13/2024 6:50 AM Status: COMPLETED Source: [facility] -?2/2 UTI vs above process -Aox2 on presentation however improved today -Did have syncopal episode prior to initial presentation -CT of the head negative at outside hospital PROGRESS Observed: 11/13/2024 6:50 AM Status: COMPLETED Source: [facility] Hospital Medicine Daily Progress Note - 11/13/2024 6:50 AM; Room: [address] [place] [address] Admission: 11/09/2024 6:46 PM; Length of stay: 4 days THE HOSPITALIST TEAM PREFERS TO USE [facility] FOR NON-URGENT COMMUNICATION 7AM-7PM. IF I DO NOT RESPOND WITHIN 20 MINUTES OR URGENT MATTERS, PLEASE CALL THROUGH THE OCEAN IMPORT REPRESENTATIVE. FROM 7PM-7AM, PLEASE PAGE [phone](COVR). Code Status: Full Code Barriers to Discharge: [...] Patient Position: Lying) Pulse 68 Temp 36.3 ???C (97.3 ???F) (Temporal) Resp 16 Intake/Output Summary (Last 24 hours) at 11/13/2024 0650 Last data filed at 11/12/2024 1741 Gross per 24 hour Intake 1100 ml Output -- Net 1100 ml Estimated body mass index is 28.23 kg/m??? as calculated from the following: Height as [...] schistocytes, repeat smear here negative for schistocytes -[id number] activity mildly low which is nonspecific, however [...] > 75% supplements, wt maintenance, advance diet, rajwinder visceral protein Malnutrition Attestation: I attest to the following: I have personally seen this patient. The patient has been assessed for malnutrition as documentation above, and based on the criteria set by the Academy of Nutrition and Dietetics and the [place] [employer] of Enteral and Parenteral Nutrition, meets [...] Units 11/12/24 0444 11/11/24 0734 11/10/24 0513 11/09/246 WBC AUTO 10*3/uL 2.32* 2.87* < > 3.49* HEMOGLOBIN g/dL 8.2* 8.2* < > 8.4* HEMATOCRIT % 25.4* 25.4* < > 24.8* MCV fL 108.5* 108.1* < > 103.8* PLATELETS AUTO 10*3/uL 17* 19* < > 26* INR -- -- -- 1.20* < > = values in this interval not displayed. Chemistry: Results from last 7 days Lab Units 11/13/24 0443 11/10/24 0513 11/09/241945 SODIUM mmol/L 143 143 142 POTASSIUM mmol/L 3.4* 3.6 3.6 CHLORIDE mmol/L 110* 109* 107 CO2 mmol/L 30 33* 37* BUN mg/dL 10 20 23 CREATININE mg/dL 0.48* 0.76 0.79 GLUCOSE mg/dL 120* 92 93 MAGNESIUM mg/dL -- -- 1.9 CALCIUM mg/dL 8.2* 8.8 8.9 PHOSPHORUS mg/dL -- -- 2.9 Results from last 7 days Lab Units 11/13/24 0443 11/09/24 1946 AMMONIA umol/L -- 31 AST [...] 1.41 11/09/2024 Lab Results Component Value Date [id number] 1,113 (H) 11/09/2024 IRON 24 (L) 11/10/2024 [...] Home or Self Care () Signed Hal Bran MD Hospital Medicine 11/13/2024 6:50 AM CBC WITH AUTO DIFFERENTIAL Collected: 11/13/2024 4:43 AM Status: UNK Source: [facility] TYPE CODE TESTS RESULT OUT OF RANGE REFERENCE UNITS LAB [id number] LEUKOCYTES(10*3/ UL) IN BLOOD BY AUTOMATED COUNT 2.60 Low 4.00-10.60 10*3/uL LAB 4736610 ERYTHROCYTES (10*6/UL) IN BLOOD BY AUTOMATED COUNT 2.41 Low 3.80-5.00 10*6/uL LAB 0049624 HEMOGLOBIN (G/DL) IN BLOOD 8.2 Low 12.0-15.0 g/dL LAB 7521781 HEMATOCRIT (%) IN BLOOD BY AUTOMATED COUNT 26.4 Low 36.0-45.0 % LAB 2310264 ERYTHROCYTE MEAN CORPUSCULAR VOLUME (FL) BY AUTOMATED COUNT 109.5 High 82.0-98.0 fL LAB 0699346 ERYTHROCYTE MEAN CORPUSCULAR HEMOGLOBIN (PG) BY AUTOMATED COUNT 34.0 High 27.0-33.0 pg LAB 0972768 ERYTHROCYTE MEAN CORPUSCULAR HEMOGLOBIN CONCENTRATION (G/DL) BY AUTOMATED 31.1 Low 32.0-35.0 g/dL LAB 9993047 ERYTHROCYTE DISTRIBUTION WIDTH (RATIO) BY AUTOMATED COUNT 21.3 High 11.5-15.0 % LAB 6790683 PLATELETS (10*3/UL) IN BLOOD AUTOMATED COUNT 36 Low 150-400 10*3/uL LAB 254 NRBC (PER 100 WBCS) BY AUTOMATED COUNT 3.1 High 0 % LAB 2878 IMMATURE PLATELET FRACTION % 6.7 High 0.8-6.3 % Performed By: #### [id number] # ### [facility] (BEAKER) [address] [place] [address] MANUAL DIFFERENTIAL Collected: 11/13/2024 4:[address] atus: TUCKER Source: [facility] TYPE CODE TESTS RESULT OUT OF RANGE REFERENCE UNITS LAB 1767 IMMATURE GRANULOCYTES/100 LEUKOCYTES IN BLOOD BY AUTOMATED COUNT 3.8 High 0.0-1.0 % LAB 0835133 NEUTROPHILS (10*3/UL) IN BLOOD BY CALCULATION 1.2 Low 1.6-7.6 10*3/uL LAB 7551995 LYMPHOCYTES (10*3/UL) IN BLOOD BY CALCULATION 0.78 Low 1.20-4.00 10*3/uL LAB 5221952 MONOCYTES (10*3/UL) IN BLOOD BY CALCUATION 0.45 0.10-1.00 10*3/uL LAB 0355254 EOSINOPHILS (10*3/UL) IN BLOOD BY CALCULATION 0.04 0.00-0.50 10*3/uL LAB 6562636 BASOPHILS (10*3/UL) IN BLOOD BY CALCULATION 0.01 0.00-0.20 10*3/uL LAB 3471513 ANISOCYTOSIS PRESENCE IN BLOOD BY LIGHT MICROSCOPY Moderate LAB 6918569 POIKILOCYTOSIS (PRESENCE) IN BLOOD BY LIGHT MICROSCOPY Slight LAB 1460432 POLYCHROMASIA IN BLOOD BY LIGHT MICROSCOPY Slight LAB 5862625 MACROCYTES (PRESENCE) IN BLOOD BY LIGHT MICROSCOPY Slight LAB 6527119 NEUTROPHILS/100 LEUKOCYTES IN BLOOD BY AUTOMATED COUNT 47.0 40.0-72.0 % LAB 0651553 LYMPHOCYTES/100 LEUKOCYTES IN BLOOD BY AUTOMATED COUNT 30.0 20.0-45.0 % LAB 7772544 MONOCYTES/100 LEUKOCYTES IN BLOOD BY AUTOMATED COUNT 17.3 High 5.0-12.0 % LAB 3523111 EOSINOPHILS/100 LEUKOCYTES IN BLOOD BY AUTOMATED COUNT 1.5 0.0-6.0 % LAB 5033502 BASOPHILS/100 LEUKOCYTES IN BLOOD BY AUTOMATED COUNT 0.4 0.0-1.0 % LAB 2631 IMMATURE GRANULOCYTES (10*3/UL) IN BLOOD BY CALCULATION 0.10 0.00-0.20 10*3/uL Performed By: #### [id number] # ### [facility] (BEAKER) [address] [place] [address] COLD AGGLUTININ SCREEN Collected: 11/13/2024 4:43 AM Status: UNK Source: [facility] Order Comment: Retime per CHARIS Hall TYPE CODE TESTS RESULT OUT OF RANGE REFERENCE UNITS LAB [id number] COLD AGGLUTININ TITER <1:32 <1:32 Result Comment: INTERPRETIVE INFORMATION: Cold Agglutinins Titers of [...] disease, and common respiratory disease. Performed By: [facility] [address] [place] [address] Care Aide: Cal Delgado MD, PhD CLIA Number: [id number] Performed By: #### [id number] # ### [facility] (BEAKER) [address] [place] [address] MAGNESIUM Collected: 11/13/2024 4:43 AM Status: UN K Source: [facility] TYPE CODE TESTS RESULT OUT OF RANGE REFERENCE UNITS LAB [id number] MAGNESIUM (MG/DL) IN SER/PLAS 2.1 1.9-2.7 mg/dL Performed By: #### [id number] ## ## [facility] (BEAKER) [address] [place] [address] COMPREHENSIVE METABOLIC PANEL Collected: 11/13/2024 4 :43 AM Status: UNK Source: [facility] TYPE CODE TESTS RESULT OUT OF RANGE REFERENCE UNITS LAB 1639354 SODIUM (MMOL/L) IN SER/PLAS 143 136-145 mmol/L LAB 4768739 POTASSIUM (MMOL/ L) IN SER/PLAS 3.4 Low 3.5-5.1 mmol/L LAB 0230138 CHLORIDE (MMOL/L ) IN SER/PLAS 110 High 98-107 mmol/L LAB 0837889 CARBON DIOXIDE, TOTAL (MMOL/L) IN SER/PLAS 30 21-31 mmol/L LAB 2903648 ANION GAP IN SER/PLAS 6 Low 7-20 mmol/L LAB 7734697 UREA NITROGEN (MG/DL) IN SER/PLAS 10 7-25 mg/dL LAB 1324776 CREATININE (MG/D L) IN SER/PLAS 0.48 Low 0.60-1.20 mg/dL LAB 5206096 UREA NITROGEN/CREATININ E (MASS RATIO) IN SER/PLAS 20.8 NA LAB 2779143 GLUCOSE (MG/DL) IN SER/PLAS 120 High 70-100 mg/dL LAB 7717409 CALCIUM (MG/DL) IN SER/PLAS 8.2 Low 8.6-10.3 mg/dL LAB 1389525 ASPARTATE AMINOTRANSFERASE (SGOT) (U/L) IN SER/PLAS 12 Low 13-39 U/L LAB 1909156 ALANINE AMINOTRANSFERASE (SGPT) (U/L) IN SER/PLAS 12 7-52 U/L LAB 3368620 ALKALINE PHOSPHATASE (U/L) IN SER/PLAS 81 34-104 U/L LAB 8295737 PROTEIN (G/DL) I N SER/PLAS 5.1 Low 6.0-8.3 g/dL LAB 9309588 ALBUMIN (G/DL) I N SER/PLAS 3.2 Low 3.5-5.7 g/dL LAB 4497216 BILIRUBIN TOTAL (MG/DL) IN SER/PLAS 0.7 0.3-1.0 mg/dL LAB 8097521 GLOMERULAR FILTRATION RATE ML/MIN/1.73 SQ M.PREDICTED 107.7 >60.0 mL/min /1.73m *2 Result Comment: [facility]???s estimated glomerular filtration rate (eGFR) will no longer include consideration of race in its calculation. The National Kidney Foundation???s eGFR Task Force developed new recommendations for [...] disproportionately affect any one group of individuals. Performed By: #### [id number] ### # [facility] (BEAKER) [address] [place] [address] HSV 1 AND 2 GLYCOPROTEIN G-SPECIFIC ANTIBODY, IGG Collected: 11/13/2024 4:43 AM Status: FRANCHESCAK Binta e: [facility] TYPE CODE TESTS RESULT OUT OF RANGE REFERENCE UNITS LAB [id number] HSV 1 GLYCOPROTEIN G AB, IGG 8.77 High <=0.89 IV Result Comment: REFERENCE IN TERVAL: HSV 1 Glycoprotein G Ab, IgG 0.89 [...] possible using a non-type specific screening test. LAB [id number] HSV 2 GLYCOPROTEIN G AB, IGG 0.13 <=0.89 IV Result Comment: REFERENCE IN TERVAL: HSV 2 Glycoprotein G Ab, IgG 0.89 [...] HSV-2 is </= 3.0 IV. Performed By: [facility] [address] [place] [address] Care Aide: Cal Delgado MD, PhD CLIA Number: [id number] Performed By: #### [id number] # ### [facility] (BEAKER) [address] [place] [address] PROTEIN ELECTROPHORESIS, SERUM Collected: 11/13/2024 4:43 AM Status: UNK Source: [facility] Order Comment: Retime per CHARIS Hall TYPE CODE TESTS RESULT OUT OF RANGE REFERENCE UNITS LAB 7343468 PROTEIN (G/DL) I N SER/PLAS 4.8 Low 6.0-8.3 g/dL LAB 1681 PROTEIN FRACTION (INTERPRETATION) IN SER/PLAS BY ELECTROPHORESIS Please see attached report. Performed By: #### [id number] ## ## [facility] (BEAKER) [address] [place] [address] 30 Observed: 11/12/2024 11:44 PM Status: COMPLETED Source: [facility] The patient is Moderately St able - Low risk of patient condition declining [...] and behaviors that affect risk of falls [place] fall precautions as indicated by assessment Educate [...] comorbid symptoms for stability, deterioration, or improvement Collaborate with multidisciplinary team to address chronic and comorbid conditions and prevent exacerbation or deterioration Update acute care plan with appropriate goals if chronic or comorbid symptoms are exacerbated and prevent overall improvement and discharge POCT GLUCOSE METER UNSOLICIT ED RESULTS Collected: 11/12/2024 9:33 PM Status: UNK Source: [facility] Order Comment: Waived Testin g in the ED is performed under the ED CLIA certificate #[id number]. TYPE CODE TESTS RESULT OUT OF RANGE REFERENCE UNITS LAB 885 POCT GLUCOSE 156 High 70-105 mg/dL Result Comment: [email or web address] Performed By: #### [id number] #### [facility] (BEAKER) [address] [place] [address] POCT GLUCOSE METER UNSOLICIT ED RESULTS Collected: 11/12/2024 4:53 PM Status: UNK Source: [facility] Order Comment: Waived Testin g in the ED is performed under the ED CLIA certificate #[id number]. TYPE CODE TESTS RESULT OUT OF RANGE REFERENCE UNITS LAB 885 POCT GLUCOSE 144 High 70-105 mg/dL Result Comment: [email or web address] Performed By: #### [id number] #### [facility] (AKER) [address] [place] [address] PROGRESS Observed: 11/12/2024 12:41 PM Status: COMPLETED Source: [facility] -?2/2 UTI vs above process -Aox2 on presentation however improved today -Did have syncopal episode prior to initial presentation -CT of the head negative at outside hospital POCT GLUCOSE METER UNSOLICIT ED RESULTS Collected: 11/12/2024 11:25 AM Status: UNK Source: [facility] Order Comment: Waived Testin g in the ED is performed under the ED CLIA certificate #[id number]. TYPE CODE TESTS RESULT OUT OF RANGE REFERENCE UNITS LAB 885 POCT GLUCOSE 149 High 70-105 mg/dL Result Comment: [email or web address] Performed By: #### [id number] #### [facility] (BEAKER) [address] [place] [address] PARVOVIRUS B19 ANTIBODY, IGG AND IGM Collected: 11/12/2024 10:41 AM Status: UNK Source: [facility] TYPE CODE TESTS RESULT OUT OF RANGE REFERENCE UNITS LAB [id number] PARVOVIRUS B19 IGG ANTIBODY 7.31 High <=0.90 IV Result Comment: INTERPRETIVE INFORMATION: Parvovirus B19 Antibody, IgG [...] the same laboratory at the same time. LAB [id number] PARVOVIRUS B19 IGM ANTIBODY 0.42 <=0.89 IV Result Comment: INTERPRETIVE INFORMATION: Parvovirus B19 Antibody, IgM [...] levels of specific IgM antibodies. Performed By: [facility] [address] [place] [address] Care Aide: Cal Delgado MD, PhD CLIA Number: [id number] Performed By: #### [id number] ## ## [facility] (BEAKER) [address] [place] [address] HOMOCYSTEINE (CARDIO), FPIA Collected: 11/12/2024 10:41 AM Status: UNK Source: [facility] TYPE CODE TESTS RESULT OUT OF RANGE REFERENCE UNITS LAB [id number] HOMOCYSTEINE 20.5 High 0.0-15.0 umol/L Result Comment: Test Perform ed by [facility] [address] [place] [address] - Released 11/12/2024 18:48 Performed By: #### [id number] ## ## [facility] [address] [place] [address] PROGRESS Observed: 11/12/2024 10:40 AM Status: COMPLETED Source: [facility] -Continue levothyroxine -TSH low with normal T4 -Does have tender thyroid, check US thyroid -On chart review, several changes to liothyronine, check T3 PROGRESS Observed: 11/12/2024 10:40 AM Status: COMPLETED Source: [facility] -quiet systolic murmur that was not heard on admission -likely this is high output -without schistocytes I do not feel overly compelled to obtain TTE at this point PROGRESS Observed: 11/12/2024 10:40 AM Status: COMPLETED Source: [facility] -Elevated at OSH but were un remarkable here -Hyperbilirubinemia, AST>ALT PROGRESS Observed: 11/12/2024 10:40 AM Status: COMPLETED Source: [facility] -Low at OSH and received mul tiple doses IM replacement -Appropriate levels on recheck here PROGRESS Observed: 11/12/2024 10:40 AM Status: COMPLETED Source: [facility] -RD following, see below PROGRESS Observed: 11/12/2024 10:40 AM Status: COMPLETED Source: [facility] -Continue Celexa PROGRESS Observed: 11/12/2024 10:40 AM Status: COMPLETED Source: [facility] -ISS, ACHS PROGRESS Observed: 11/12/2024 10:40 AM Status: COMPLETED Source: [facility] -Treated with 3 days CTX and levofloxacin 11/07- at outside hospital -UA negative -Currently asymptomatic PROGRESS Observed: 11/12/2024 10:40 AM Status: COMPLETED Source: [facility] -Continue Protonix PROGRESS Observed: 11/12/2024 10:40 AM Status: COMPLETED Source: [facility] -Continue rosuvastatin PROGRESS Observed: 11/12/2024 10:40 AM Status: COMPLETED Source: [facility] -Concerning for B12 deficien cy vs iatrogenic vs MDS vs MPN vs malignancy, less likely MAHA process -OSH smear showing rare schistocytes, repeat smear here negative for schistocytes -f/u [id number] activity, PNH flow, BMBx results -CT imaging negative for LAD -Did have 5 days nitrofurantoin appx 1 month ago -HemOnc on board, grateful for their input -Daily CBC however minimize phlebotomy as much as possible (re: CMP every Mon/Thurs) -Transfuse for Hgb <7 -Transfuse for Plt <10 or <20 and active bleeding PROGRESS Observed: 11/12/2024 10:16 AM Status: COMPLETED Source: [facility] Hospital Medicine Daily Progress Note - 11/12/2024 10:16 AM; Room: [address] [place] [address] Admission: 11/09/2024 6:46 PM; Length of stay: 3 days THE HOSPITALIST TEAM PREFERS TO USE [employer] CHAT FOR NON-URGENT COMMUNICATION 7AM-7PM. IF I DO NOT RESPOND WITHIN 20 MINUTES OR URGENT MATTERS, PLEASE CALL THROUGH THE OCEAN IMPORT REPRESENTATIVE. FROM 7PM-7AM, PLEASE PAGE [phone](COVR). Code Status: Full Code Barriers to Discharge: Pancytopenia Expected Discharge Date: 3-4 days Discharge Destination: TBD Overview Patient is seen for evaluation and management of pancytopenia. Subjective Patient seen and examined. patient is doing well today and mentation has seemed to have improved as well. No episodes of bleeding and patient is asymptomatic today overall. Physical Exam Visit Vitals BP 115/65 Pulse 70 Temp 36.4 ???C (97.5 ???F) Resp 24 No intake or output data in the 24 hours ending 11/12/24 1016 Estimated body mass index is 26.01 kg/m??? as calculated from the following: Height as [...] repeat smear here negative for schistocytes -f/u [id number] activity, PNH flow, BMBx results -CT imaging [...] Academy of [employer] Dietetics and the [place] [employer]al [employer] Parenteral [employer], meets [...] from last 7 days Lab Units 11/10/24 0511/09/241945 SODIUM mmol/L 143 142 POTASSIUM mmol/L 3.6 [...] last 7 days Lab Units 11/12/24 0758 11/11/247 11/11/24 1624 11/11/24 1113 11/11/24 0707 11/10/242050 POCT GLUCOSE mg/dL 135* 190* 144* 133* 115* 156* Historical Values: (Includes values prior to this admission) Lab Results Component Value Date TSH 0.13 (L) 11/09/2024 FREET4 1.41 11/09/2024 Lab Results Component Value Date [id number] 1,113 (H) 11/09/2024 IRON 24 (L) 11/10/2024 [...] Home or Self Care () Signed Hal Bran MD [facility] Medicine 11/12/2024 10:16 AM 30 Observed: 11/12/2024 8:09 AM Status: COMPLETED Source: [facility] The patient is Moderately St able - Low risk of patient condition declining [...] from fall injury Outcome: Progressing Flowsheets (Taken 11/12/2024 08) Free from fall injury: Assess patient frequently for physical needs [place] fall precautions as indicated by assessment Problem: Discharge Planning Goal: Discharge to home or other facility with appropriate resources Outcome: Progressing Flowsheets (Taken 11/12/2024 08) Discharge to home or other facility with appropriate resources: Identify barriers to discharge with patient and caregiver Arrange for needed discharge resources and transportation as appropriate Identify discharge learning needs (meds, wound care, etc) Problem: Chronic Conditions and Co-morbidities Goal: Patient's chronic conditions and co-morbidity symptoms are monitored and maintained or improved Outcome: Progressing Flowsheets (Taken 11/12/2024 08) Care Plan - Patient's Chronic Conditions and Co-Morbidity Symptoms are Monitored and Maintained or Improved: Monitor and assess patient's chronic conditions and comorbid symptoms for stability, deterioration, or improvement POCT GLUCOSE METER UNSOLICIT ED RESULTS Collected: 11/12/2024 7:58 AM Status: UNK Source: [facility] Order Comment: Waived Testin g in the ED is performed under the ED CLIA certificate #[id number]. TYPE CODE TESTS RESULT OUT OF RANGE REFERENCE UNITS LAB 885 POCT GLUCOSE 135 High 70-105 mg/dL Result Comment: [email or web address] Performed By: #### [id number] #### [facility] (BEAKER) [address] [place] [address] MANUAL DIFFERENTIAL Collected: 11/12/2024 4:[address] atus: UNK Source: [facility] TYPE CODE TESTS RESULT OUT OF RANGE REFERENCE UNITS LAB 107 METAMYELOCYTES/1 0 0 LEUKOCYTES IN BLOOD CELLAVISION 0.7 High 0.0-0.0 % LAB [id number] MYELOCYTES/100 LEUKOCYTES IN BLOOD CELLAVISION 2.7 High 0.0-0.0 % LAB 109 VARIANT LYMPHOCYTES/100 LEUKOCYTES IN BLOOD CELLAVISION 0.0 0.0-0.0 % LAB 1971439 NEUTROPHILS (10*3/UL) IN BLOOD BY CALCULATION 1.0 Low 1.6-7.6 10*3/uL LAB 7763543 LYMPHOCYTES (10*3/UL) IN BLOOD BY CALCULATION 1.11 Low 1.20-4.00 10*3/uL LAB 3184802 MONOCYTES (10*3/UL) IN BLOOD BY CALCUATION 0.14 0.10-1.00 10*3/uL LAB 9024324 EOSINOPHILS (10*3/UL) IN BLOOD BY CALCULATION 0.03 0.00-0.50 10*3/uL LAB 3486659 BASOPHILS (10*3/UL) IN BLOOD BY CALCULATION 0.00 0.00-0.20 10*3/uL LAB 110 METAMYELOCYTES (10*3/UL) IN BLOOD BY CALCULATION 0.02 High 0.00 10*3/uL LAB 1410 MYELOCYTES (10*3/UL) IN BLOOD BY CALCULATION 0.06 High 0.00 10*3/uL LAB 114 VARIANT LYMPHOCYTES (10*3/UL) IN BLOOD BY CALCULATION 0.00 0.00 10*3/uL LAB 7217745 ANISOCYTOSIS PRESENCE IN BLOOD BY LIGHT MICROSCOPY Moderate LAB 3950714 POIKILOCYTOSIS (PRESENCE) IN BLOOD BY LIGHT MICROSCOPY Slight LAB 0469995 POLYCHROMASIA IN BLOOD BY LIGHT MICROSCOPY Slight LAB 5003356 MACROCYTES (PRESENCE) IN BLOOD BY LIGHT MICROSCOPY Moderate LAB 5396967 PLATELETS GIANT PRESENCE IN BLOOD BY LIGHT MICROSCOPY Present LAB 8559627 NEUTROPHILS/100 LEUKOCYTES IN BLOOD BY AUTOMATED COUNT 41.3 40.0-72.0 % LAB 7703325 LYMPHOCYTES/100 LEUKOCYTES IN BLOOD BY AUTOMATED COUNT 48.0 High 20.0-45.0 % LAB 2621543 MONOCYTES/100 LEUKOCYTES IN BLOOD BY AUTOMATED COUNT 6.0 5.0-12.0 % LAB 3236689 EOSINOPHILS/100 LEUKOCYTES IN BLOOD BY AUTOMATED COUNT 1.3 0.0-6.0 % LAB 3525529 BASOPHILS/100 LEUKOCYTES IN BLOOD BY AUTOMATED COUNT 0.0 0.0-1.0 % LAB 2633 PLASMA CELLS/100 LEUKOCYTES IN BLOOD 0 0 % LAB 6829589 NUCLEATED RED BLOOD CELLS IN BLOOD BY LIGHT MICROSCOPY Present Performed By: #### [id number] # ### [facility] ([facility]) [address] [place] [address] T3, FREE Collected: 11/12/2024 4:44 AM Status: UN K Source: [facility] TYPE CODE TESTS RESULT OUT OF RANGE REFERENCE UNITS LAB 2904954 TRIIODOTHYRONINE (T3) FREE (PG/ML) IN SER/PLAS 3.0 2.5-3.9 pg/mL Performed By: #### [id number] ## ## [facility] ([facility]) [address] [place] [address] CIPRIANO Collected: 4:44 AM Status: UNK Source: [facility] TYPE CODE TESTS RESULT OUT OF RANGE REFERENCE UNITS LAB 4127796 CIPRIANO TITER <1:40 <=1:40 NA Result Comment: Test perform ed using [employer]FA CIPRIANO Hep-2 Test, a pre-standardized assay designed for the qualitative and semi-quantitative detection of antinuclear antibodies. Performed By: #### [id number] ## ## [facility] ([facility]) [address] [place] [address] HEPATITIS PANEL, ACUTE Collected: 11/12/2024 4:44 AM Status: UNK Source: [facility] TYPE CODE TESTS RESULT OUT OF RANGE REFERENCE UNITS LAB 8621166 HEPATITIS B VIRUS SURFACE AG PRESENCE IN SERUM Nonreactive Nonreactive LAB 0445351 HEPATITIS A VIRUS IGM AB PRESENCE IN SER/PLAS Nonreactive Nonreactive LAB 8924850 HEPATITIS C VIRUS AB PRESENCE IN SERUM Nonreactive Nonreactive LAB 9944451 HEPATITIS B VIRUS CORE AB (PRESENCE) IN SER/PLAS BY IMM Nonreactive Nonreactive Performed By: #### [id number] ## ## [facility] [address] [place] [address] CBC WITH AUTO DIFFERENTIAL Collected: 11/12/2024 4:44 AM Status: UNK Source: [facility] TYPE CODE TESTS RESULT OUT OF RANGE REFERENCE UNITS LAB 5346401 LEUKOCYTES(10*3/ UL) IN BLOOD BY AUTOMATED COUNT 2.32 Low 4.00-10.60 10*3/uL LAB 9441068 ERYTHROCYTES (10*6/UL) IN BLOOD BY AUTOMATED COUNT 2.34 Low 3.80-5.00 10*6/uL LAB 8679980 HEMOGLOBIN (G/DL) IN BLOOD 8.2 Low 12.0-15.0 g/dL LAB 6404743 HEMATOCRIT (%) IN BLOOD BY AUTOMATED COUNT 25.4 Low 36.0-45.0 % LAB 3271360 ERYTHROCYTE MEAN CORPUSCULAR VOLUME (FL) BY AUTOMATED COUNT 108.5 High 82.0-98.0 fL LAB 8581989 ERYTHROCYTE MEAN CORPUSCULAR HEMOGLOBIN (PG) BY AUTOMATED COUNT 35.0 High 27.0-33.0 pg LAB 5196733 ERYTHROCYTE MEAN CORPUSCULAR HEMOGLOBIN CONCENTRATION (G/DL) BY AUTOMATED 32.3 32.0-35.0 g/dL LAB 6498247 ERYTHROCYTE DISTRIBUTION WIDTH (RATIO) BY AUTOMATED COUNT Result Comment: Unable to ca lculate LAB 1870952 PLATELETS (10*3/UL) IN BLOOD AUTOMATED COUNT 17 Unknown 150-400 10*3/uL LAB 254 NRBC (PER 100 WBCS) BY AUTOMATED COUNT 4.7 High 0 % LAB 2878 IMMATURE PLATELET FRACTION % 7.7 High 0.8-6.3 % Performed By: #### [id number] # ### [facility] (BEAKER) [address] [place] [address] 30 Observed: 11/11/2024 10:20 PM Status: COMPLETED Source: [facility] The patient is Moderately St able - Low risk of patient condition declining or worsening The patient's goals for the shift include Rest The clinical goals for the shift include VSS safety POCT GLUCOSE METER UNSOLICIT ED RESULTS Collected: 11/11/2024 8:57 PM Status: UNK Source: [facility] Order Comment: Waived Testin g in the ED is performed under the ED CLIA certificate #[id number]. TYPE CODE TESTS RESULT OUT OF RANGE REFERENCE UNITS LAB 885 POCT GLUCOSE 190 High 70-105 mg/dL Result Comment: [email or web address] Performed By: #### [id number] #### [facility] ([facility]) [address] [place] [address] POCT GLUCOSE METER UNSOLICIT ED RESULTS Collected: 11/11/2024 4:24 PM Status: UNK Source: [facility] Order Comment: Waived Testin g in the ED is performed under the ED CLIA certificate #[id number]. TYPE CODE TESTS RESULT OUT OF RANGE REFERENCE UNITS LAB 885 POCT GLUCOSE 144 High 70-105 mg/dL Result Comment: khai Performed By: #### [id number] #### [facility] ([facility]) [address] [place] [address] CONSULT Observed: 11/11/2024 3:09 PM Status: COMPLETED Source: [facility] Attestation signed by Haroldo Brown MD at 11/11/2024 6:50 PM I performed a history and physical examination of the patient and discussed his management with the resident. I reviewed the resident???s note and agree with the documented findings and plan of care. Aaron Brown MD [facility] Hematology and Oncology at [facility] [address] [facility] [place] [address] HEMATOLOGY and MEDICAL ONCOLOGY: [facility] MD Dr. Юлия Mehta MD Patient name: Andreia Thomas Patient Today's Date and Time: 11/11/2024, 3:09 PM Admission Date: 11/09/2024 Impression: New onset pancytopenia Peripheral smear showed pancyopenia, LDH high, Haptoglobin low, bili was slightly elevated at [facility], normal here. Altered mental status, resolved here Macrocytosis Hypothyroidism DM2 Anxiety Recommendations: Bone marrow biopsy done yesterday, initial eval did not show schistocytes, blasts or promyelocytes. LDH high, Haptoglobin is low, retic count is [...] with bleeding. Will continue to follow. Kevin Morales MD PGY-4 Hematology & Oncology Fellow Inpatient Hematology/Oncology Fellow availability Wednesday - 830am-500pm, Wednesday 830am-430pm and Wednesday 830am-1200pm During these hours, Please contact Hematology/Oncology Fellow through [employer] Chat first For Hematology Oncology needs on weekends and after hours, please page the on-call fellow through the hospital acid retort operator. Subjective Reason for consultation / Chief complaint: Pancytopenia History of Present Illness Andreia Thomas is a 59 y.o.-year-old female with PMH of DM2, dyslipidemia, hypothyroidism and anxiety who was admitted to [facility] due to confusion and weakness for the past 4-6 weeks. Spouse at bedside reports that she had been confused ON and OFF, although she is completely alert and oriented today. CT Head at [facility] was unremarkable, CT A/P was unremarkable. She was noted to have pancytopenia with WBC 2.2, Hb 5.3 and PLT 31, for which she was transferred to [facility]. Her blood work up available from 2019 [...] Examination: BP 97/55 Pulse 59 Temp 36.4 ???C (97.5 ???F) Resp 15 Ht 1.575 m (5' 2 ) Wt 64.5 kg (142 lb 3.2 oz) SpO2 96% BMI 26.01 kg/m??? Temperature Range: Temp: 36.4 ???C (97.5 ???F) Temp Av.6 ???C (97.9 ???F) Min: 36.4 ???C (97.5 ???F) Max: 36.8 ???C (98.2 ???F) General Appearance: Awake, alert, and in no [...] bone marrow biopsy Electronically signed: Scott Rodriguez. No MRI results found for the past 3 days PROGRESS Observed: 11/11/2024 2:30 PM Status: COMPLETED Source: [facility] -Continue levothyroxine -TSH low with normal T4 -Does have tender thyroid, check US thyroid PROGRESS Observed: 11/11/2024 2:30 PM Status: COMPLETED Source: [facility] -Concerning for MDS vs MPN v s malignancy, less likely MAHA process -OSH smear showing rare schistocytes, repeat smear here negative for schistocytes -f/u [id number] activity, PNH flow, BMBx results -CT imaging negative for LAD -HemOnc on board, grateful for their input -Daily CBC however minimize phlebotomy as much as possible (re: BMP every Wed/Thurs) -Transfuse for Hgb <7 -Transfuse for Plt <10 or <20 and active bleeding PROGRESS Observed: 11/11/2024 2:30 PM Status: COMPLETED Source: [facility] -Treated with CTX at outside hospital -UA negative -Currently asymptomatic PROGRESS Observed: 11/11/2024 2:18 PM Status: COMPLETED Source: [facility] -quiet systolic murmur that was not heard on admission -likely this is high output -without schistocytes I do not feel overly compelled to obtain TTE at this point POCT GLUCOSE METER UNSOLICIT ED RESULTS Collected: 11/11/2024 11:13 AM Status: UNK Source: [facility] Order Comment: Waived Testin g in the ED is performed under the ED CLIA certificate #[id number]. TYPE CODE TESTS RESULT OUT OF RANGE REFERENCE UNITS LAB 885 POCT GLUCOSE 133 High 70-105 mg/dL Result Comment: khai Performed By: #### [id number] #### [facility] (BEAKER) [address] [place] [address] CBC WITH AUTO DIFFERENTIAL Collected: 11/11/2024 7:34 AM Status: UNK Source: [facility] TYPE CODE TESTS RESULT OUT OF RANGE REFERENCE UNITS LAB 8583822 LEUKOCYTES(10*3/ UL) IN BLOOD BY AUTOMATED COUNT 2.87 Low 4.00-10.60 10*3/uL LAB 4714438 ERYTHROCYTES (10*6/UL) IN BLOOD BY AUTOMATED COUNT 2.35 Low 3.80-5.00 10*6/uL LAB 0174443 HEMOGLOBIN (G/DL) IN BLOOD 8.2 Low 12.0-15.0 g/dL LAB 0318732 HEMATOCRIT (%) IN BLOOD BY AUTOMATED COUNT 25.4 Low 36.0-45.0 % LAB 7251360 ERYTHROCYTE MEAN CORPUSCULAR VOLUME (FL) BY AUTOMATED COUNT 108.1 High 82.0-98.0 fL LAB 0306796 ERYTHROCYTE MEAN CORPUSCULAR HEMOGLOBIN (PG) BY AUTOMATED COUNT 34.9 High 27.0-33.0 pg LAB 7793174 ERYTHROCYTE MEAN CORPUSCULAR HEMOGLOBIN CONCENTRATION (G/DL) BY AUTOMATED 32.3 32.0-35.0 g/dL LAB 8587188 ERYTHROCYTE DISTRIBUTION WIDTH (RATIO) BY AUTOMATED COUNT Result Comment: Unable to ca lculate LAB [id number] PLATELETS (10*3/UL) IN BLOOD AUTOMATED COUNT 19 Unknown 150-400 10*3/uL LAB 254 NRBC (PER 100 WBCS) BY AUTOMATED COUNT 4.2 High 0 % LAB 2878 IMMATURE PLATELET FRACTION % 7.8 High 0.8-6.3 % Performed By: #### [id number] # ### [facility] (BEAKER) [address] [place] [address] MANUAL DIFFERENTIAL Collected: 11/11/2024 7:[address] atus: UNK Source: [facility] TYPE CODE TESTS RESULT OUT OF RANGE REFERENCE UNITS LAB 1767 IMMATURE GRANULOCYTES/100 LEUKOCYTES IN BLOOD BY AUTOMATED COUNT 2.8 High 0.0-1.0 % LAB [id number] NEUTROPHILS (10*3/UL) IN BLOOD BY CALCULATION 1.1 Low 1.6-7.6 10*3/uL LAB 0182545 LYMPHOCYTES (10*3/UL) IN BLOOD BY CALCULATION 1.33 1.20-4.00 10*3/uL LAB 1209118 MONOCYTES (10*3/UL) IN BLOOD BY CALCUATION 0.37 0.10-1.00 10*3/uL LAB 8422002 EOSINOPHILS (10*3/UL) IN BLOOD BY CALCULATION 0.01 0.00-0.50 10*3/uL LAB 1698725 BASOPHILS (10*3/UL) IN BLOOD BY CALCULATION 0.01 0.00-0.20 10*3/uL LAB 2172384 ANISOCYTOSIS PRESENCE IN BLOOD BY LIGHT MICROSCOPY Moderate LAB 6309607 POIKILOCYTOSIS (PRESENCE) IN BLOOD BY LIGHT MICROSCOPY Slight LAB 6074546 POLYCHROMASIA IN BLOOD BY LIGHT MICROSCOPY Slight LAB 6825446 NEUTROPHILS/100 LEUKOCYTES IN BLOOD BY AUTOMATED COUNT 37.4 Low 40.0-72.0 % LAB 7891256 LYMPHOCYTES/100 LEUKOCYTES IN BLOOD BY AUTOMATED COUNT 46.3 High 20.0-45.0 % LAB 4772776 MONOCYTES/100 LEUKOCYTES IN BLOOD BY AUTOMATED COUNT 12.9 High 5.0-12.0 % LAB 1346178 EOSINOPHILS/100 LEUKOCYTES IN BLOOD BY AUTOMATED COUNT 0.3 0.0-6.0 % LAB 9936674 BASOPHILS/100 LEUKOCYTES IN BLOOD BY AUTOMATED COUNT 0.3 0.0-1.0 % LAB 2631 IMMATURE GRANULOCYTES (10*3/UL) IN BLOOD BY CALCULATION 0.08 0.00-0.20 10*3/uL Performed By: #### [id number] # ### [facility] (BEAKER) [address] [place] [address] COPPER, SERUM Collected: 7:34 AM Status: UNK Source: [facility] TYPE CODE TESTS RESULT OUT OF RANGE REFERENCE UNITS LAB [id number] COPPER 129.2 80.0-155.0 ug/dL Result Comment: INTERPRETIVE INFORMATION: Copper, Serum or Plasma [...] developed and its performance characteristics determined by [facility]. It has not been cleared or approved by the US Food and Drug Administration. This test was performed in a CLIA certified laboratory and is intended for clinical purposes. Performed By: [facility] [address] [place] [address] Care Aide: Cal Delgado MD, PhD CLIA Number: [id number] Performed By: #### [id number] ## ## [facility] (BEAKER) [address] [place] [address] POCT GLUCOSE METER UNSOLICIT ED RESULTS Collected: 11/11/2024 7:07 AM Status: UNK Source: [facility] Order Comment: Waived Testin g in the ED is performed under the ED CLIA certificate #[id number]. TYPE CODE TESTS RESULT OUT OF RANGE REFERENCE UNITS LAB 885 POCT GLUCOSE 115 High 70-105 mg/dL Result Comment: [email or web address] Performed By: #### [id number] #### [facility] (LEANNA) [address] [place] [address] PROGRESS Observed: 11/11/2024 6:52 AM Status: COMPLETED Source: [facility] -Continue Protonix PROGRESS Observed: 11/11/2024 6:52 AM Status: COMPLETED Source: [facility] -Continue Celexa PROGRESS Observed: 11/11/2024 6:52 AM Status: COMP LETED Source: [facility] -ISS, ACHS PROGRESS Observed: 11/11/2024 6:52 AM Status: COMPLETED Source: [facility] -RD following, see below PROGRESS Observed: 11/11/2024 6:52 AM Status: COMPLETED Source: [facility] -Continue rosuvastatin PROGRESS Observed: 11/11/2024 6:52 AM Status: COMPLETED Source: [facility] -?2/2 UTI vs above process -Aox2, reporting delirium that pt herself denies -Did have syncopal episode -CT of the head negative at outside hospital PROGRESS Observed: 11/11/2024 6:52 AM Status: COMPLETED Source: [facility] Hospital Medicine Daily Progress Note - 11/11/2024 6:52 AM; Room: [address] [place] [address] Admission: 11/09/2024 6:46 PM; Length of stay: 2 days THE HOSPITALIST TEAM PREFERS TO USE [employer] FOR NON-URGENT COMMUNICATION 7AM-7PM. IF I DO NOT RESPOND WITHIN 20 MINUTES OR URGENT MATTERS, PLEASE CALL THROUGH THE OCEAN IMPORT REPRESENTATIVE. FROM 7PM-7AM, PLEASE PAGE [phone](COVR). Code Status: Full Code Barriers to Discharge: [...] Vitals BP 93/55 Pulse 53 Temp 36.4 ???C (97.5 ???F) Resp 15 Intake/Output Summary (Last 24 hours) at 11/11/2024 0652 Last data filed at 11/11/2024 0337 Gross per 24 hour Intake 250 ml Output -- Net 250 ml Estimated body mass index is 26.01 kg/m??? as calculated from the following: Height as [...] repeat smear here negative for schistocytes -f/u [id number] activity, PNH flow, BMBx results -CT imaging [...] Academy of Nutrition and Dietetics and the [place] [employer] of Enteral and Parenteral Nutrition, meets [...] from last 7 days Lab Units 11/10/24 20511/10/24 1728 11/10/24 1112 11/10/24 0750 11/09/24 2109 POCT GLUCOSE mg/dL 156* 125* 105 108* 156* Historical Values: (Includes values prior to this admission) Lab Results Component Value Date TSH 0.13 (L) 11/09/2024 FREET4 1.41 11/09/2024 Lab Results Component Value Date [id number] 1,113 (H) 11/09/2024 IRON 24 (L) 11/10/2024 [...] and the preliminary interpretation by the hematology nursery laborer revealed adequate spicules. Repeat bone marrow aspirate [...] Home or Self Care () Signed Hal Bran MD [facility] Medicine 11/11/2024 6:52 AM 30 Observed: 11/11/2024 6:31 AM Status: COMPLETED Source: [facility] The patient is Moderately St able - Low risk of patient condition declining or worsening The patient's goals for the shift include rest The clinical goals for the shift include VSS POCT GLUCOSE METER UNSOLICIT ED RESULTS Collected: 11/10/2024 8:51 PM Status: UNK Source: [facility] Order Comment: Waived Testin g in the ED is performed under the ED CLIA certificate #[id number]. TYPE CODE TESTS RESULT OUT OF RANGE REFERENCE UNITS LAB 885 POCT GLUCOSE 156 High 70-105 mg/dL Result Comment: [email or web address] Performed By: #### [id number] #### [facility] (BEAKER) [address] [place] [address] POCT GLUCOSE METER UNSOLICIT ED RESULTS Collected: 11/10/2024 5:28 PM Status: UNK Source: [facility] Order Comment: Waived Testin g in the ED is performed under the ED CLIA certificate #[id number]. TYPE CODE TESTS RESULT OUT OF RANGE REFERENCE UNITS LAB 885 POCT GLUCOSE 125 High 70-105 mg/dL Result Comment: [email or web address] Performed By: #### [id number] #### [facility] ([facility]) [address] [place] [address] URINALYSIS WITH REFLEX CULTURE Collected: 11/10/2024 5:26 PM Status: UNK Source: [facility] Order Comment: Microscopics not performed on urines with negative chemical reactions unless requested on original order. TYPE CODE TESTS RESULT OUT OF RANGE REFERENCE UNITS LAB 2343881 COLOR OF URINE Yellow Color less, Yellow, Light-Yellow LAB 0081222 CLARITY OF URINE Clear Clear LAB 2985887 PH OF URINE 6.0 5.0-8.0 pH LAB 1770266 LEUKOCYTE ESTERASE PRESENCE IN URINE BY TEST STRIP Negative Negative LAB 9204959 NITRITE PRESENCE IN URINE Negative Negative LAB 7875397 PROTEIN (MG/DL) IN URINE BY TEST STRIP Negative Negative mg/dL LAB 4652950 GLUCOSE (MG/DL) IN URINE Normal Normal mg/dL LAB 4571559 BILIRUBIN, TOTAL PRESENCE IN URINE Negative Negative LAB 9 SPECIFIC GRAVITY OF URINE >1.050 High 1.010-1.030 NA LAB 548 KETONES (MG/DL) IN URINE Negative Negative mg/dL LAB 549 HEMOGLOBIN PRESENCE IN URINE Negative Negative LAB 0285675 UROBILINOGEN (MG/DL) IN URINE Normal Normal mg/dL Performed By: #### [id number] # ### [facility] ([facility]) [address] [place] [address] PROTEIN, URINE, RANDOM Collected: 11/10 5:26 PM Status: UNK Source: [facility] TYPE CODE TESTS RESULT OUT OF RANGE REFERENCE UNITS LAB 11 PROTEIN (MG/DL) IN URINE 14.7 mg/dL Result Comment: There are no established reference values for random urine specimens. Performed By: #### [id number] ## ## [facility] ([facility]) [address] [place] [address] CREATININE, URINE, RANDOM Collected: 11/10/2024 5:26 PM Status: UNK Source: [facility] TYPE CODE TESTS RESULT OUT OF RANGE REFERENCE UNITS LAB 936 CREATININE (MG/DL) IN URINE 142.0 26-299 mg/dL Performed By: #### [id number] ## ## [facility] ([facility]) [address] [place] [address] CT CHEST W IV CONTRAST Observed: 025 3:40 PM Status: UNK Source: [facility] CT CHEST W IV CONTRAST CLINICAL INFORMATION: [...] pericardial recesses. Degenerative changes. Old rib fractures. IMPRESSION: * No acute findings in the chest. * No lymphadenopathy. Electronically signed: Yordy Brothers MD. Not Vldtd PROGRESS Observed: 11/10/2024 3:28 PM Status: COMPLETED Source: [facility] -?2/2 UTI vs above process -Aox2, reporting delirium that pt herself denies -Did have syncopal episode -CT of the head negative at outside hospital PROGRESS Observed: 11/10/2024 3:28 PM Status: COMPLETED Source: [facility] -Concerning for MDS vs MPN v s malignancy, less likely MAHA process -OSH smear showing rare schistocytes, repeat smear here -Check hemolysis labs, [id number] -HemOnc on board, grateful for their input -Will be undergoing BMBx today -Daily CBC however minimize phlebotomy as much as possible PROGRESS Observed: 11/10/2024 3:28 PM Status: COMPLETED Source: [facility] -Continue Protonix PROGRESS Observed: 11/10/2024 3:28 PM Status: COMPLETED Source: [facility] -Treated with CTX at outside hospital -Currently asymptomatic PROGRESS Observed: 11/10/2024 3:28 PM Status: COMPLETED Source: [facility] -RD following, see below PROGRESS Observed: 11/10/2024 3:28 PM Status: COMP LETED Source: [facility] -ISS, ACHS PROGRESS Observed: 11/10/2024 3:28 PM Status: COMPLETED Source: [facility] -Continue rosuvastatin PROGRESS Observed: 11/10/2024 3:28 PM Status: COMPLETED Source: [facility] -Continue levothyroxine -TSH low with normal T4 PROGRESS Observed: 11/10/2024 3:28 PM Status: COMPLETED Source: [facility] -Continue Celexa PROGRESS Observed: 11/10/2024 1:29 PM Status: COMPLETED Source: [facility] Adult Nutrition Assessment: Name: Andreia Thomas Date: 1965 Date of Visit: 11/10/24 Admission [...] 0513 K 3.6 11/10/2024 0513 PHOS 2.9 11/09/20241945 MG 1.9 11/09/20241945 HGB 8.7 (L) 11/10/2024 [...] ideal body weight (50 kg) Calorie needs: 0344-8654 kcals/day based on Equation: 25-30 kcal/kg Protein [...] To reach the Clinical Dietitian, please utilize [employer] chat Wednesday-Wednesday from 8AM-4PM or call extension [phone]. For weekends (Wednesday-Wednesday) and holidays, the Clinical Dietitian can be reached via pager ([phone]) from 9AM-3PM. The Clinical Nutrition Department is unable to respond to [employer] chat messages on Sundays and s. FIBRINOGEN Collected: 11/10/2024 11:55 AM Status: U NK Source: [facility] TYPE CODE TESTS RESULT OUT OF RANGE REFERENCE UNITS LAB 3041591 FIBRINOGEN (MG/DL) IN PPP BY COAGULATION ASSAY 259 150-425 mg/dL Performed By: #### [id number] ## ## [facility] (BEAKER) [address] [place] [address] ADAMTS 13 ACTIVITY Collected: 11:55 AM Status: UNK Source: [facility] TYPE CODE TESTS RESULT OUT OF RANGE REFERENCE UNITS LAB [id number] BMFSYM21 ACTIVITY 53 Low >=61 % Result Comment: INTERPRETIVE INFORMATION: [id number] Activity EZAPCR16 levels of less than 10 percent may be associated with either inherited (Wilmer-Felipe Syndrome) or acquired thrombotic thrombocytopenic purpura (TTP). A variety of medical conditions may result in a mild to moderate deficiency of PKITTE37 activity. Recent plasma exchange therapy may raise the observed PHSFDM25 activity. This test was developed and its performance characteristics determined by [facility]. It has not been cleared or approved by the US Food and Drug Administration. This test was performed in a CLIA certified laboratory and is intended for clinical purposes. Performed By: [email or web address] [address] [place] [address] Care Aide: Cal Delgado MD, PhD CLIA Number: [id number] Performed By: #### [id number] # ### [facility] (BEAKER) [address] [place] [address] APTT Collected: 11/10/2024 11:55 AM Status: U NK Source: [facility] TYPE CODE TESTS RESULT OUT OF RANGE REFERENCE UNITS LAB 2293036 ACTIVATED PARTIA L THROMBOPLASTIN TIME IN PPP BY COAGULATION ASSAY 32.5 25.0-35.0 Seconds Result Comment: Clinical sig nificance of the APTT is questionable in the presence of heparin. Performed By: #### [id number] ## ## [facility] (BEAKER) [address] [place] [address] CT GUIDED BIOPSY BONE MARROW Observed: 0 11/10/2024 11:44 AM Status: UNK Source: [facility] History: Pancytopenia Procedure: 1. CT guided bone [...] and the preliminary interpretation by the hematology nursery laborer revealed adequate spicules. Repeat bone marrow aspirate [...] bone marrow biopsy Electronically signed: Scott Rodriguez. Not Vldtd PROGRESS Observed: 11/10/2024 11:12 AM Status: COMPLETED Source: [facility] Hospital Medicine Daily Progress Note - 11/10/2024 3:16 PM; Room: [address] [place] [address] Admission: 11/09/2024 6:46 PM; Length of stay: 1 days THE HOSPITALIST TEAM PREFERS TO USE [employer] CHAT FOR NON-URGENT COMMUNICATION 7AM-7PM. IF I DO NOT RESPOND WITHIN 20 MINUTES OR URGENT MATTERS, PLEASE CALL THROUGH THE OCEAN IMPORT REPRESENTATIVE. FROM 7PM-7AM, PLEASE PAGE [phone](COVR). Code Status: Full Code Barriers to Discharge: [...] Patient Position: Lying) Pulse 62 Temp 36.6 ???C (97.9 ???F) Resp 18 No intake or output data in the 24 hours ending 11/10/24 1516 Estimated body mass index is 26.01 kg/m??? as calculated from the following: Height as [...] schistocytes, repeat smear here -Check hemolysis labs, [id number] -HemOnc on board, grateful for their input [...] Academy of Nutrition and Dietetics and the [place] [employer] of Enteral and Parenteral Nutrition, meets [...] 1.41 11/09/2024 Lab Results Component Value Date [id number] 1,113 (H) 11/09/[address] guided [...] and the preliminary interpretation by the hematology nursery laborer revealed adequate spicules. Repeat bone marrow aspirate [...] Home or Self Care () Signed Hal Bran MD [facility] Medicine 11/10/2024 3:16 PM POCT GLUCOSE METER UNSOLICIT ED RESULTS Collected: 11/10/2024 11:12 AM Status: UNK Source: [facility] Order Comment: Waived Testin g in the ED is performed under the ED CLIA certificate #[id number]. TYPE CODE TESTS RESULT OUT OF RANGE REFERENCE UNITS LAB 885 POCT GLUCOSE 105 70-105 mg/dL Result Comment: [email or web address] Performed By: #### [id number] #### [facility] (BEAKER) [address] [place] [address] PROGRESS Observed: 11/10/2024 11:08 AM Status: COMPLETED Source: [facility] 11/10/24 1100 Admission Assessment Questions Verify insurance with patient Yes Do you understand medical disease or what brought you into the hospital? Yes Who is your current PCP? Kaitlyn Downing Can I schedule a follow up appointment for you at the time of discharge? Yes Do you understand why you are taking your current medications? Yes Are you taking your medications as prescribed? Yes Did patient provide teach back? No Pharmacy Bedside Delivery Status Interested Does the patient have a showcase trimmer assigned to them through their insurance? No [...] to send link and activate MyChart? No CONSULT Observed: 11/10/2024 11:08 AM Status: COMPLETED Source: [facility] Attestation signed by Юлия Guerra MD at 11/10/2024 4:10 PM By using the attestations below, the signing clinician agrees that I have read and verify that the documentation has been personally reviewed by me and [...] Comments: Patient is a 59-year-old admitted in [place] since Wednesday with pancytopenia , mild neutropenia at 1400 and (confusion which currently is fully resolved) Patients records from [place] is currently pending Thereby the tempo of [...] high unclear if she was repleted in [place] Will add a comprehensive workup not limited to consumptive disorders, production disorders( bone marrow ) and peripheral destruction Independently with LDH elevated and haptoglobin reduced and bilirubin normal she did have Sneha which was negative,. We will expand that workup to evaluate for Sneha negative hemolysis and PNH. Ferritin was normal thereby ruling out HLH Will get scans from [place]. Will add CT of the chest Reticulocyte count added as well No evidence of schistocytes on smear and personally discussed with pathology As data unfold for recommendations will be made Patient's PT marginal and fibrinogen and PTT normal as well Patient seen for the first time today after transfer from [place] and appreciate radiology pathology hospitalists for expeditious workup which is currently underway . We will Follow along Юлия Guerra MD HEMATOLOGY and MEDICAL ONCOLOGY: [facility] MD Dr. Юлия Mehta MD Patient name: Andreia Thomas Patient Today's Date and Time: 11/10/2024, 11:08 AM Admission Date: 11/09/2024 Impression: New onset pancytopenia Peripheral smear showed pancyopenia, LDH high, Haptoglobin low, bili was slightly elevated at [facility], normal here. Altered mental status, resolved here [...] these hours, Please contact Hematology/Oncology Fellow through [employer] Chat first For Hematology Oncology needs on weekends and after hours, please page the on-call fellow through the hospital acid retort operator. Subjective Reason for consultation / Chief complaint: Pancytopenia History of Present Illness Andreia Thomas is a 59 y.o.-year-old female with PMH of DM2, dyslipidemia, hypothyroidism and anxiety who was admitted to [facility] due to confusion and weakness for the past 4-6 weeks. Spouse at bedside reports that she had been confused ON and OFF, although she is completely alert and oriented today. CT Head at [facility] was unremarkable, CT A/P was unremarkable. She was noted to have pancytopenia with WBC 2.2, Hb 5.3 and PLT 31, for which she was transferred to [facility]. Her blood work up available from 2019 [...] Examination: BP 133/79 Pulse 67 Temp 36.6 ???C (97.9 ???F) Resp 19 Ht 1.575 m (5' 2 ) Wt 64.5 kg (142 lb 3.2 oz) SpO2 100% BMI 26.01 kg/m??? Temperature Range: Temp: 36.6 ???C (97.9 ???F) Temp Av.7 ???C (98.1 ???F) Min: 36.6 ???C (97.9 ???F) Max: 36.9 ???C (98.5 ???F) General Appearance: Awake, alert, and in no [...] results found for the past 3 days 30 Observed: 11/10/2024 9:14 AM Status: COMPLETED Source: [facility] Problem: Infection - Adult Goal: Absence of [...] goals for the shift include VSS, safety POCT GLUCOSE METER UNSOLICIT ED RESULTS Collected: 11/10/2024 7:50 AM Status: UNK Source: [facility] Order Comment: Waived Testin g in the ED is performed under the ED CLIA certificate #[id number]. TYPE CODE TESTS RESULT OUT OF RANGE REFERENCE UNITS LAB 885 POCT GLUCOSE 108 High 70-105 mg/dL Result Comment: lori Performed By: #### [id number] #### [facility] (BEAKER) [address] [place] [address] RETICULOCYTE PANEL Collected: 11/10/2024 5:13 AM Sta tus: UNK Source: [facility] TYPE CODE TESTS RESULT OUT OF RANGE REFERENCE UNITS LAB 1090400 RETICULOCYTES (10*6/UL) IN BLOOD 0.0425 0.0250-0.100 0 10*6/uL LAB 8501702 RETICULOCYTES/10 0 ERYTHROCYTES IN BLOOD BY AUTOMATED COUNT 1.75 0.50-1.80 % LAB 382 IMMATURE RETICULOCYTE FRACTION (%) 22.4 High 2-16 % LAB 923 HEMOGLOBIN (PG) IN RETICULOCYTES 37.6 High 28.0-36.0 pg Performed By: #### [id number] ## ## [facility] (BEAKER) [address] [place] [address] BASIC METABOLIC PANEL Collected: 2024 5:13 AM Status: UNK Source: [facility] TYPE CODE TESTS RESULT OUT OF RANGE REFERENCE UNITS LAB 7081725 SODIUM (MMOL/L) IN SER/PLAS 143 136-145 mmol/L LAB 9944223 POTASSIUM (MMOL/L) IN SER/PLAS 3.6 3.5-5.1 mmol/L LAB 2357765 CHLORIDE (MMOL/L) IN SER/PLAS 109 High 98-107 mmol/L LAB 8599422 CARBON DIOXIDE, TOTAL (MMOL/L) IN SER/PLAS 33 High 21-31 mmol/L LAB 1010049 UREA NITROGEN (MG/DL) IN SER/PLAS 20 7-25 mg/dL LAB 2738237 CREATININE (MG/DL) IN SER/PLAS 0.76 0.60-1.20 mg/dL LAB 8247463 GLUCOSE (MG/DL) IN SER/PLAS 92 70-100 mg/dL LAB 8652374 CALCIUM (MG/DL) IN SER/PLAS 8.8 8.6-10.3 mg/dL LAB 6871160 ANION GAP IN SER/PLAS 5 Low 7-20 mmol/L LAB 5587989 GLOMERULAR FILTRATION RATE ML/MIN/1.73 SQ M.PREDICTED 89.1 >60.0 mL/min/ 1.73m*2 Result Comment: [facility]???s estimated glomerular filtration rate (eGFR) will no longer include consideration of race in its calculation. The National Kidney Foundation???s eGFR Task Force developed new recommendations for [...] disproportionately affect any one group of individuals. LAB 2260605 UREA NITROGEN/CREA TININE (MASS RATIO) IN SER/PLAS 26.3 NA Performed By: #### [id number] ### # [facility] ([facility]) [address] [place] [address] CBC Collected: 11/10/2024 5:13 AM Status: UN K Source: [facility] TYPE CODE TESTS RESULT OUT OF RANGE REFERENCE UNITS LAB 8968732 LEUKOCYTES(10*3/ U L) IN BLOOD BY AUTOMATED COUNT 3.48 Low 4.00-10.60 10*3/uL LAB 6566089 ERYTHROCYTES (10*6/UL) IN BLOOD BY AUTOMATED COUNT 2.42 Low 3.80-5.00 10*6/uL LAB 8631534 HEMOGLOBIN (G/DL ) IN BLOOD 8.7 Low 12.0-15.0 g/dL LAB 3195507 HEMATOCRIT (%) I N BLOOD BY AUTOMATED COUNT 25.9 Low 36.0-45.0 % LAB 8232610 ERYTHROCYTE MEAN CORPUSCULAR VOLUME (FL) BY AUTOMATED COUNT 107.0 High 82.0-98.0 fL LAB 1027853 ERYTHROCYTE MEAN CORPUSCULAR HEMOGLOBIN (PG) BY AUTOMATED COUNT 36.0 High 27.0-33.0 pg LAB 1817996 ERYTHROCYTE MEAN CORPUSCULAR HEMOGLOBIN CONCENTRATION (G/DL) BY AUTOMATED 33.6 32.0-35.0 g/dL LAB 1109608 ERYTHROCYTE DISTRIBUTION WIDTH (RATIO) BY AUTOMATED COUNT Result Comment: Unable to ca lculate LAB 5439940 PLATELETS (10*3/UL) IN BLOOD AUTOMATED COUNT 24 Low 150-400 10*3/uL LAB 2878 IMMATURE PLATELE T FRACTION % 7.4 High 0.8-6.3 % Performed By: #### [id number] ## ## [facility] ([facility]) [address] [place] [address] FERRITIN Collected: 5:13 AM Status: UNK Source: [facility] TYPE CODE TESTS RESULT OUT OF RANGE REFERENCE UNITS LAB 2059402 FERRITIN (NG/ML) IN SER/PLAS 156.0 11.0-307.0 ng/mL Performed By: #### [id number] ### # [facility] ([facility]) [address] [place] [address] FOLATE Collected: 11/10/2024 5:13 AM Status: UN K Source: [facility] TYPE CODE TESTS RESULT OUT OF RANGE REFERENCE UNITS LAB 9658265 FOLATE (NG/ML) IN SER/PLAS 10.24 6.6-1000 ng/mL Performed By: #### [id number] ### # [facility] ([facility]) [address] [place] [address] LACTATE DEHYDROGENASE Collected: 11/10/2024 5:13 AM Status: UNK Source: [facility] TYPE CODE TESTS RESULT OUT OF RANGE REFERENCE UNITS LAB 7821425 LACTATE DEHYDROGENASE (U/L) IN SER/PLAS BY LAC->PYR RXN 3489 High 140-271 U/L Performed By: #### [id number] ### # [facility] ([facility]) [address] [place] [address] IRON AND TIBC Collected: 11/10/2024 5:13 AM Status: UNK Source: [facility] TYPE CODE TESTS RESULT OUT OF RANGE REFERENCE UNITS LAB 8936332 IRON (UG/DL) IN SER/PLAS 24 Low 50-212 ug/dL LAB 5234110 IRON BINDING CAPACITY (UG/DL) IN SER/PLAS 247 Low 250-450 ug/dL LAB 0477927 IRON SATURATION (%) IN SER/PLAS 10 Low 20-50 % LAB [id number] IRON BINDING CAPACITY.UNSATU RATED (UG/DL) IN SER/PLAS 223.0 155.0-355.0 ug/dL Performed By: #### [id number] ## ## [facility] ([facility]) [address] [place] [address] HP Observed: 11/10/2024 4:26 AM Status: COMPLETED Source: [facility] Case was discussed with the NANCY on 11/09/2024. I agree with the history, physical, assessment, and plan of care. I discussed the findings and therapeutic plan. I agree with the documentation, except for any updates below. Cookie Louis MD 30 Observed: 11/10/2024 1:48 AM Status: COMPLETED Source: [facility] The patient is Moderately St able - Low risk of patient condition declining or worsening The patient's goals for the shift include rest The clinical goals for the shift include VSS, safety PROGRESS Observed: 11/09/2024 11:41 PM Status: COMPLETED Source: [facility] - Initial labs at [facility] found to be WBC 2.2, hemoglobin 5.3, platelet count 31 Repeat labs at [facility] show WBC 3.49, hemoglobin 8.4, platelet count 26 -Concern for TTP -Type and screen is been completed -Transfuse for hemoglobin less than 7 and a platelet count less than 10 unless actively bleeding -Hematology/oncology consult -N.p.o. at midnight for bone marrow biopsy PROGRESS Observed: 11/09/2024 11:34 PM Status: COMPLETED Source: [facility] - Patient reportedly with a positive UTI at outside hospital and was given Rocephin, patient currently denies any UTI symptoms, will hold on antibiotics at this time PROGRESS Observed: 11/09/2024 11:34 PM Status: COMPLETED Source: [facility] - Continue rosuvastatin PROGRESS Observed: 11/09/2024 11:34 PM Status: COMPLETED Source: [facility] - Continue Celexa PROGRESS Observed: 11/09/2024 11:34 PM Status: COMPLETED Source: [facility] - ISS, ACHS PROGRESS Observed: 11/09/2024 11:34 PM Status: COMPLETED Source: [facility] - Continue Protonix PROGRESS Observed: 11/09/2024 11:34 PM Status: COMPLETED Source: [facility] - Continue levothyroxine PROGRESS Observed: 11/09/2024 11:34 PM Status: COMPLETED Source: [facility] - Patient with intermittent confusion as well as a syncopal episode which has since resolved -CT of the head negative at outside hospital -Suspect likely secondary to low hemoglobin HP Observed: 11/09/2024 11:22 PM Status: COMPLETED Source: [facility] Hospital Medicine History and Physical 11/09/2024 11:41 PM THE HOSPITALIST TEAM PREFERS TO USE [facility] FOR NON-URGENT COMMUNICATION 7AM-7PM. IF I DO NOT RESPOND WITHIN 20 MINUTES OR URGENT MATTERS, PLEASE CALL THROUGH THE [employer] REPRESENTATIVE. FROM 7PM-7AM, PLEASE PAGE [phone](COVR). Chief Complaint Direct admission with pancytopenia History of Present Illness Andreia Thomas is an 59 y.o. female who came from home with past medical history of DM2, hypothyroidism, GERD, hyperlipidemia, anxiety presents as a direct admission from [facility] with pancytopenia. Patient reports that she has had intermittent confusion over the last few days. at bedside also reports a syncopal episode this past Wednesday. Patient denies any prodromal symptoms. She is unclear if she hit her head. At [facility], CT of the head was completed showing no acute intracranial abnormality. CT of the abdomen was completed showing no acute abnormality. Initial labs were completed showing WBC 2.2, RBC 1.26, hemoglobin 5.3, hematocrit 15.6, platelet count 31, INR 1.33, sodium 144, potassium 2.7, chloride 106, BUN 28, creatinine 0.81, calcium 8.3, total bilirubin 1.7, direct bilirubin 0.4, AST 122, ALT 30, alkaline [id number], troponin 4.2. UA was reportedly found positive for UTI and patient was started on ceftriaxone. Patient was given 2 units of blood which did improve hemoglobin. Physician at [facility] reached out to her hematology/oncology team and they recommend transferring patient for further workup and bone marrow biopsy. Review of System and Physical Exam Temp: [36.6 ???C (97.9 ???F)-36.9 ???C (98.5 ???F)] 36.6 ???C (97.9 ???F) Heart Rate: [70] 70 Resp: [21-22] 22 [...] Assessment and Plan Assessment & Plan Pancytopenia ([facility]) - Initial labs at [facility] found to be WBC 2.2, hemoglobin 5.3, platelet count 31 Repeat labs at [facility] show WBC 3.49, hemoglobin 8.4, platelet count [...] this time DM2 (diabetes mellitus, type 2) ([facility]) - ISS, ACHS Acquired hypothyroidism - Continue [...] this hospital stay by a member of [facility]. Past Medical History History reviewed. No [...] is performed under the ED CLIA certificate #[id number]. MANUAL DIFFERENTIAL - Abnormal Immature Granulocytes % [...] Procedure Abnormality Status --------- ------ CBC auto differential[[id number]] Abnormal Final result Manual Differential[[id number]] Abnormal Final result Please view results for these tests on the individual orders. TYPE AND SCREEN ABO Grouping O Rh Type POS Ab Scrn POS ANTI IGG CHARLIE Anti IgG CHARLIE NEG ANTIBODY IDENTIFICATION Antibody ID E POCT GLUCOSE METER Imaging ECG 12 lead Sinus bradycardia Otherwise normal ECG No previous ECGs available Confirmed by Amadou Gage ([id number]) on 11/09/2024 9:47:55 PM [facility] 11/09/2024 11:41 PM POCT GLUCOSE METER UNSOLICIT ED RESULTS Collected: 11/09/2024 9:09 PM Status: UNK Source: [facility] Order Comment: Waived Testin g in the ED is performed under the ED CLIA certificate #[id number]. TYPE CODE TESTS RESULT OUT OF RANGE REFERENCE UNITS LAB 885 POCT GLUCOSE 156 High 70-105 mg/dL Result Comment: [email or web address] Performed By: #### [id number] #### [facility] ([facility]) [address] [place] [address] BLOOD CULTURE Collected: 11/09/2024 7:47 PM Status: UNK Source: [facility] Order Comment: From a differ ent site than #1., Blood TYPE CODE TESTS RESULT OUT OF RANGE REFERENCE UNITS LAB 1015048 BLOOD CULTURE No growth at 5 days Performed By: #### [id number] ## ## [facility] ([facility]) [address] [place] [address] LACTIC ACID, PLASMA Collected: 11/10/19 7:47 PM Status: UNK Source: [facility] TYPE CODE TESTS RESULT OUT OF RANGE REFERENCE UNITS LAB 1174945 LACTATE (MMOL/L) IN SER/PLAS 0.7 0.5-2.2 mmol/L Performed By: #### [id number] ### # [facility] ([facility]) [address] [place] [address] BLOOD CULTURE Collected: 11/09/2024 7:47 PM Status: UNK Source: [facility] TYPE CODE TESTS RESULT OUT OF RANGE REFERENCE UNITS LAB 5772539 BLOOD CULTURE No growth at 5 days Performed By: #### [id number] ## ## [facility] ([facility]) [address] [place] [address] VITAMIN B12 Collected: 7:46 PM Status: UNK Source: [facility] TYPE CODE TESTS RESULT OUT OF RANGE REFERENCE UNITS LAB [id number] COBALAMIN (VITAMIN B12) (PG/ML) IN SER/PLAS 1113 High 180-914 pg/mL Result Comment: REFERENCE RA NGES: 180-914 pg/mL Normal 145-179 pg/mL Indeterminate <145 pg/mL Deficient Performed By: #### [id number] ### # [facility] ([facility]) [address] [place] [address] VITAMIN D 25 HYDROXY Collected: 11/09/2024 7:46 PM S tatus: UNK Source: [facility] TYPE CODE TESTS RESULT OUT OF RANGE REFERENCE UNITS LAB 0994002 CALCIDIOL (25 [place] VITAMIN D3) (NG/ML) IN SER/PLAS 10.2 Low 30.0-80.0 ng/mL Result Comment: >80.0 Toxici ty possible Performed By: #### [id number] ## ## [facility] ([facility]) [address] [place] [address] TSH3 REFLEX TO FT4 Collected: 11/09/2024 7:46 PM Sta tus: UNK Source: [facility] TYPE CODE TESTS RESULT OUT OF RANGE REFERENCE UNITS LAB 8079015 THYROTROPIN (MIU/L) IN SER/PLAS BY DETECTION LIMIT <= 0.05 MIU/L 0.13 Low 0.34-5.60 mIU/L Performed By: #### [id number] # ### [facility] ([facility]) [address] [place] [address] CK TOTAL AND CKMB Collected: 11/09/2024 7:46 PM Stat us: UNK Source: [facility] TYPE CODE TESTS RESULT OUT OF RANGE REFERENCE UNITS LAB [id number] CREATINE KINASE (U/L) IN SER/PLAS 43.0 30.0-223.0 U/L LAB 8993628 CREATINE KINASE MB/CREATINE KINASE TOTAL BY CALCULATION 3.0 High 0.0-1.9 NA LAB 6894926 CREATINE KINASE-MB (NG/ML) IN SER/PLAS 1.3 0.0-5.0 ng/mL Performed By: #### [id number] ### # [facility] ([facility]) [address] [place] [address] COMPREHENSIVE METABOLIC PANEL Collected: 11/09/2024 7 :46 PM Status: UNK Source: [facility] TYPE CODE TESTS RESULT OUT OF RANGE REFERENCE UNITS LAB 4875966 SODIUM (MMOL/L) IN SER/PLAS 142 136-145 mmol/L LAB 9841446 POTASSIUM (MMOL/ L) IN SER/PLAS 3.6 3.5-5.1 mmol/L LAB 2894247 CHLORIDE (MMOL/L ) IN SER/PLAS 107 98-107 mmol/L LAB 7592968 CARBON DIOXIDE, TOTAL (MMOL/L) IN SER/PLAS 37 High 21-31 mmol/L LAB 0681804 ANION GAP IN SER/PLAS 2 Low 7-20 mmol/L LAB 1762547 UREA NITROGEN (MG/DL) IN SER/PLAS 23 7-25 mg/dL LAB 1497581 CREATININE (MG/D L) IN SER/PLAS 0.79 0.60-1.20 mg/dL LAB 3830211 UREA NITROGEN/CREATININ E (MASS RATIO) IN SER/PLAS 29.1 NA LAB 3652982 GLUCOSE (MG/DL) IN SER/PLAS 93 70-100 mg/dL LAB 4642860 CALCIUM (MG/DL) IN SER/PLAS 8.9 8.6-10.3 mg/dL LAB 8369547 ASPARTATE AMINOTRANSFERASE (SGOT) (U/L) IN SER/PLAS 27 13-39 U/L LAB 4348116 ALANINE AMINOTRANSFERASE (SGPT) (U/L) IN SER/PLAS 22 7-52 U/L LAB 4002569 ALKALINE PHOSPHATASE (U/L) IN SER/PLAS 89 34-104 U/L LAB 7474641 PROTEIN (G/DL) I N SER/PLAS 5.9 Low 6.0-8.3 g/dL LAB 3457749 ALBUMIN (G/DL) I N SER/PLAS 4.0 3.5-5.7 g/dL LAB 0232273 BILIRUBIN TOTAL (MG/DL) IN SER/PLAS 1.0 0.3-1.0 mg/dL LAB 6320295 GLOMERULAR FILTRATION RATE ML/MIN/1.73 SQ M.PREDICTED 85.0 >60.0 mL/min /1.73m *2 Result Comment: [facility]???s estimated glomerular filtration rate (eGFR) will no longer include consideration of race in its calculation. The National Kid[employer]???s eGFR Task Force developed new recommendations for [...] disproportionately affect any one group of individuals. Performed By: #### [id number] ### # [facility] ([facility]) [address] [place] [address] PHOSPHORUS Collected: 11/09/2024 7:46 PM Status: UN K Source: [facility] TYPE CODE TESTS RESULT OUT OF RANGE REFERENCE UNITS LAB 6400580 PHOSPHATE (MG/DL) IN SER/PLAS 2.9 2.5-5.0 mg/dL Performed By: #### [id number] ## ## [facility] ([facility]) [address] [place] [address] PROTIME-INR Collected: 11/09/2024 7:46 PM Status: UN K Source: [facility] TYPE CODE TESTS RESULT OUT OF RANGE REFERENCE UNITS LAB 0646144 PROTHROMBIN TIME (PT) IN PPP BY COAGULATION ASSAY 15.1 High 12.3-14.8 Seconds LAB 0160972 INR IN PPP BY COAGULATION ASSAY 1.20 High 0.90-1.10 NA Result Comment: [facility] RECOMM ENDED INR FOR [facility]ARFARIN THERAPY CONDITION INR PROPHYLAXIS OF VENOUS THROMBOSIS 2-3 (HIGH-RISK SURGERY) TREATMENT OF VENOUS THROMBOSIS 2-3 TREATMENT OF PULMONARY EMBOLISM 2-3 PREVENTION OF SYSTEMIC EMBOLISM: 2-3 ACUTE MYOCARDIAL INFARCTION TISSUE HEART VALVES VALVULAR HEART DISEASE ATRIAL FIBRILLATION RECURRENT SYSTEMIC EMBOLISM MECHANICAL HEART VALVE 2.5-3.5 FROM: ORAL ANTICOAGULANTS. MECHANISM OF ACTION, CLINICAL EFFECTIVENESS, AND OPTIMAL THERAPEUTIC RANGE. CHEST 1995;108:231S-246S. Performed By: #### [id number] ## ## [facility] ([facility]) [address] [place] [address] VENOUS BLOOD GAS WITH IONIZE D CALCIUM Collected: 11/09/2024 7:46 PM Status: UNK [facility]: [facility] TYPE CODE TESTS RESULT OUT OF RANGE REFERENCE UNITS LAB 9675543 PH OF VENOUS BLOOD 7.43 High 7.31-7.41 NA LAB 0710740 CARBON DIOXIDE (MM HG) IN VENOUS BLOOD 44 40-50 mmHg LAB 5932582 OXYGEN (MM HG) IN VENOUS BLOOD 45 35-45 mmHg LAB 3310469 BICARBONATE IN VENOUS BLOOD 29.2 mmol/L LAB 0331334 CALCIUM IONIZED (MMOL/L) IN BLOOD 1.24 1.15-1.33 mmol/L LAB 5192573 OXYGEN SATURATION (%) IN VENOUS BLOOD 75.0 65.0-75.0 % LAB 9886024 BASE EXCESS (MMOL/L) IN VENOUS BLOOD BY CALCULATION 4.2 mmol/L Performed By: #### [id number] # ### [facility] RESPIRATORY THERAPY [address] TYPE AND SCREEN Collected: 11/09/2024 7:46 PM Status : UNK Source: [facility] TYPE CODE TESTS RESULT OUT OF RANGE REFERENCE UNITS LAB [id number] ABO GROUP (TYPE) IN BLOOD O LAB [id number] RH TYPE IN BLOOD POS LAB [id number] AB SCREEN POS Performed By: #### [id number] ## ## [facility] BLOOD BANK , ANTI IGG CHARLIE Collected: 11/09/2024 7:46 PM Status: U NK Source: [facility] TYPE CODE TESTS RESULT OUT OF RANGE REFERENCE UNITS LAB [id number] ANTI IGG CHARLIE NEG Performed By: #### [id number] # ### [facility] BLOOD BANK , ANTI C3 CHARLIE Collected: 7:46 PM Status: UNK Source: [facility] TYPE CODE TESTS RESULT OUT OF RANGE REFERENCE UNITS LAB [id number] ANTI C3 CHARLIE NEG Performed By: #### [id number] # ### [facility] BLOOD BANK , MANUAL DIFFERENTIAL Collected: 11/09/2024 7:[address] atus: UNK Source: [facility] TYPE CODE TESTS RESULT OUT OF RANGE REFERENCE UNITS LAB 1767 IMMATURE GRANULOCYTES/100 LEUKOCYTES IN BLOOD BY AUTOMATED COUNT 3.4 High 0.0-1.0 % LAB 5110255 NEUTROPHILS (10*3/UL) IN BLOOD BY CALCULATION 1.4 Low 1.6-7.6 10*3/uL LAB 6716996 LYMPHOCYTES (10*3/UL) IN BLOOD BY CALCULATION 1.63 1.20-4.00 10*3/uL LAB 5877419 MONOCYTES (10*3/UL) IN BLOOD BY CALCUATION 0.29 0.10-1.00 10*3/uL LAB 5444669 EOSINOPHILS (10*3/UL) IN BLOOD BY CALCULATION 0.00 0.00-0.50 10*3/uL LAB 0937196 BASOPHILS (10*3/UL) IN BLOOD BY CALCULATION 0.01 0.00-0.20 10*3/uL LAB 6118190 ANISOCYTOSIS PRESENCE IN BLOOD BY LIGHT MICROSCOPY Moderate LAB 4880162 POIKILOCYTOSIS (PRESENCE) IN BLOOD BY LIGHT MICROSCOPY Slight LAB 6563888 POLYCHROMASIA IN BLOOD BY LIGHT MICROSCOPY Slight LAB 8008214 NEUTROPHILS/100 LEUKOCYTES IN BLOOD BY AUTOMATED COUNT 41.3 40.0-72.0 % LAB 3707925 LYMPHOCYTES/100 LEUKOCYTES IN BLOOD BY AUTOMATED COUNT 46.7 High 20.0-45.0 % LAB 7960313 MONOCYTES/100 LEUKOCYTES IN BLOOD BY AUTOMATED COUNT 8.3 5.0-12.0 % LAB 9459941 EOSINOPHILS/100 LEUKOCYTES IN BLOOD BY AUTOMATED COUNT 0.0 0.0-6.0 % LAB 3210727 BASOPHILS/100 LEUKOCYTES IN BLOOD BY AUTOMATED COUNT 0.3 0.0-1.0 % LAB 2631 IMMATURE GRANULOCYTES (10*3/UL) IN BLOOD BY CALCULATION 0.12 0.00-0.20 10*3/uL Performed By: #### [id number] # ### [facility] ([facility]) [address] [place] [address] CBC WITH AUTO DIFFERENTIAL Collected: 11/09/2024 7:46 PM Status: UNK Source: [facility] TYPE CODE TESTS RESULT OUT OF RANGE REFERENCE UNITS LAB 9410868 LEUKOCYTES(10*3/ UL) IN BLOOD BY AUTOMATED COUNT 3.49 Low 4.00-10.60 10*3/uL LAB 7841969 ERYTHROCYTES (10*6/UL) IN BLOOD BY AUTOMATED COUNT 2.39 Low 3.80-5.00 10*6/uL LAB 8149641 HEMOGLOBIN (G/DL) IN BLOOD 8.4 Low 12.0-15.0 g/dL LAB 5898259 HEMATOCRIT (%) IN BLOOD BY AUTOMATED COUNT 24.8 Low 36.0-45.0 % LAB 4088491 ERYTHROCYTE MEAN CORPUSCULAR VOLUME (FL) BY AUTOMATED COUNT 103.8 High 82.0-98.0 fL LAB 7082723 ERYTHROCYTE MEAN CORPUSCULAR HEMOGLOBIN (PG) BY AUTOMATED COUNT 35.1 High 27.0-33.0 pg LAB 2665471 ERYTHROCYTE MEAN CORPUSCULAR HEMOGLOBIN CONCENTRATION (G/DL) BY AUTOMATED 33.9 32.0-35.0 g/dL LAB 7164049 PLATELETS (10*3/UL) IN BLOOD AUTOMATED COUNT 26 Low 150-400 10*3/uL LAB 254 NRBC (PER 100 WBCS) BY AUTOMATED COUNT 2.9 High 0 % LAB 2878 IMMATURE PLATELET FRACTION % 8.0 High 0.8-6.3 % Performed By: #### [id number] # ### [facility] ([facility]) [address] [place] [address] MAGNESIUM Collected: 11/09/2024 7:46 PM Status: UN K Source: [facility] TYPE CODE TESTS RESULT OUT OF RANGE REFERENCE UNITS LAB 7102088 MAGNESIUM (MG/DL) IN SER/PLAS 1.9 1.9-2.7 mg/dL Performed By: #### [id number] ## ## [facility] ([facility]) [address] [place] [address] ANTIBODY IDENTIFICATION Collected: 11/09/2024 7:46 PM Status: UNK Source: [facility] TYPE CODE TESTS RESULT OUT OF RANGE REFERENCE UNITS LAB [id number] ANTIBODY IDENTIFICATION E Performed By: #### [id number] ## ## [facility] BLOOD BANK , HIGH SENSITIVITY TROPONIN I Collected: 11/09/2024 7:46 PM Status: UNK Source: [facility] TYPE CODE TESTS RESULT OUT OF RANGE REFERENCE UNITS LAB 3630 HS TROPONIN I (NG/L) 7 <15 ng/L Performed By: #### [id number] # ### [facility] ([facility]) [address] [place] [address] AMMONIA Collected: 7:46 PM Status: UNK Source: [facility] TYPE CODE TESTS RESULT OUT OF RANGE REFERENCE UNITS LAB 1981658 AMMONIA (UMOL/L) IN PLASMA 31 18-72 umol/L Performed By: #### [id number] ### # [facility] ([facility]) [address] [place] [address] 35849 T4, FREE Collected: 11/09/2024 7:46 PM Status: UN K Source: [facility] TYPE CODE TESTS RESULT OUT OF RANGE REFERENCE UNITS LAB 4363964 THYROXINE (T4) FREE (NG/DL) IN SER/PLAS 1.41 0.71-1.85 ng/dL Performed By: #### [id number] ## ## [facility] ([facility]) [address] [place] [address] 30 Observed: 11/09/2024 7:01 PM Status: COMPLETED Source: [facility] The patient is Moderately St able - Low risk of patient condition declining or worsening The patient's goals for the shift include feel better The clinical goals for the shift include L Observed: 11/07/2024 7:36 PM Status: F Source: [facility] ----- ------- Specimen: [id number] Received: 11/09/24 Status: DEZ Caal Num: [id number] Spec Type: Impression Subm Dr: Kaitlyn Downing MD Tissues: PATHPER Procedures: PATHREVIEW ----- ------- Age/ Patient Sex Location Account Attending Physician ----- ------- Andreia Thomas 59/F [facility] [id number] Kaitlyn Downing MD ----- ------- SPEC NUM: [id number] RECD: 11/09/24 STATUS: DEZ CAAL NUM: [id number] ROWENA: 11/07/[address] [facility] [address]: Kaitlyn Downing MD ENTERED: 11/09/[address] [facility] [address]: Joselyn Pantoja MD SPEC TYPE: Impression DEPT: RAUL Villalpando ENTERED BY: [id number] RECV BY: [id number] ORDERED: PATHREVIEW ORDERED: PATHREVIEW Pathologist Review Abnormal CBC for peripheral blood smear review - The findings of peripheral blood smear is compatible with the findings of CBC report - Severe pancytopenia, including moderate leukopenia with mild lymphocytopenia, moderate neutropenia, and severe monocytopenia, severe anemia of moderate macrocytic type, and severe thrombocytopenia - Mild macrocytosis with a few ovalocytes and teardrop cells, occasional schistocytes including occasional tiny microcytes, and rare polychromatophils - No morphological abnormality of the granulocyte population - No immature blast, granulocytic dysplasia, or any obvious precursor granulocytes - Rare reactive lymphocytes - Rare hypogranular platelets without other morphological abnormality of the platelet population Comment: - The cause of severe pancytopenia is compatible with the severe bone marrow suppression including aplastic or hypoplastic marrow. The other possibility is usually due to the suppression effect from treatment of malignancy requiring clinical correlation if applicable. There is significant teardrop cells suggesting possible underlying myelofibrosis. There is no obvious atypical cytological changes of the leukocyte popula tion, excluding the possibility of underlying hematological or lymphoid malignancy. Although there are occasional schistocytes, the normal percentage reticulocyte count without obvious polychromasia is not compatible with the features or effect of ongoing hemolysis. The patient is not in the advanced old age group, excluding possibility of the aging related ----- ------- Specimen: [id number] Received: 11/09/24 Status: DEZ Caal Num: [id number] Spec Type: Impression Subm Dr: Kaitlyn Downnig MD Tissues: PATHPER Procedures: PATHREVIEW ----- ------- Patient: Andreia Thomas [id number] (Continued) ----- ------- Specimen: [id number] Received: 11/09/24 (Continued) Pathologist Review (Continued) Signed (signature on file) Prema Hook MD 11/09/24 1025 ----- ------- Specimen: [id number] Received: 11/09/24 Status: DEZ Caal Num: [id number] Spec Type: Impression Subm Dr: Kaitlyn Downing MD Tissues: PATHPER Procedures: PATHREVIEW ----- ------- Patient: Andreia Thomas [id number] (Continued) ----- ------- Specimen: [id number] Received: 11/09/24 (Continued) Pathologist Review (Continued) effect. Continuous clinical and etiological correlation for the cause of marrow suppression, appropriate supportive medical management, and CBC laboratory follow-ups are also suggested. CPT 74644. ----- ------- ----- ------- Specimen: [id number] Received: 11/09/24 Status: DEZ Caal Num: [id number] Spec Type: Impression Subm Dr: Kaitlyn Downing MD Tissues: PATHPER Procedures: PATHREVIEW ----- ------- Patient: Andreia Thomas [id number] (Continued) ----- ------- Signed (signature on file) Prema Hook MD 11/09/24 1025 URINE CULTURE Observed: 11/07/2024 10:38 AM Status: F Source: [facility] ORGANISM: Escherichia coli ( O:ESCCOL) [place] Count >100,000 Aerobic ILIA Charge ([id number]) SUSCEPTIBILITY ORGANISM: O:ESCCOL ANTIBIOTIC INTERPRETATION ILIA Amikacin S <16 Amoxacillin/K Clavulanate S <8 Ampicillin S <8 Ampicillin/Sulbactam S <4 Aztreonam S <4 Cefazolin S <2 Cefepime S <2 Ceftazidime S <1 Ceftazidime/Avibactam S <4 Ceftolozane/Tazobactam S <2 Ceftriaxone S <1 Cefuroxime S <4 Ciprofloxacin S <0.25 Ertapenem S <0.5 Gentamicin S <2 Levofloxacin S <0.5 Meropenem S <1 Meropenem/Vaborbactam S <2 Nitrofurantoin S <32 Piperacillin/Tazobactam S <8 Tetracycline S <4 Tigecycline S <2 Tobramycin S <2 Trimethoprim/Sulfamethoxazole S <0.5 S = SUSCEPTIBLE I = INTERMEDIATE R = RESISTANT BLANK = DATA NOT AVAILABLE, OR DRUG NOT ADVISABLE OR TESTED R* = RESISTANCE DUE TO EXTENDED SPECTRUM BETA-LACTAMASES ESBL = EXTENDED SPECTRUM BETA-LACTAMASE TFG = THYMIDINE-DEPENDENT STRAIN CADEN = BETA-LACTAMASE POSITIVE IB = INDUCIBLE BETA-LACTAMASE. APPEARS IN PLACE OF 'S' WITH SPECIES KNOWN TO POSSESS INDUCIBLE BETA-LACTAMASES. POTENTIALLY THEY MAY BECOME RESISTANT TO ALL B-LACTAM DRUGS. PERFORMED BY: [place] [address] PATHOLOGIST CATTLE BROKER SOLANGE HAMMOND M.D. Performed By: #### CUU #### [address] GASTROENTEROLOGY OFFICE/CLINIC NOTE Obse rved: 10/31/2024 12:45 PM Status: F Source: [facility] Gastroenterology Office/Clin ic Note Chief Complaint f/u EGD, labs HPI Staff This is a 59 year old female who presents today for a follow up to EGD. Continues to have same symptoms as previous visit. Last office visit w/ Dr Melendrez History of Present Illness Patient continues to have pain in the epigastric area Just got blood work at [facility] and showed platelet count of 73 Other complaints Blood sugars not under good control Has had diabetes for a very long time Patient drinks coffee every day She does not drink alcohol at all Assessment/Plan 1. Abdominal pain (R10.9: Unspecified abdominal pain) 2. Nausea (R11.0: Nausea) 3. Epigastric pain (R10.13: Epigastric pain) 4. Early satiety (R68.81: Early satiety) 5. Diverticulitis (K57.92: Diverticulitis of intestine, part unspecified, without perforation or abscess without bleeding) 6. Heartburn (R12: Heartburn) 7. History of pancreatitis (Z87.19: Personal history of other diseases of the digestive system) 8. Status post cholecystectomy (Z90.49: Acquired absence of other specified parts of digestive tract) 9. Elevated alkaline phosphatase level (R74.8: Abnormal levels of other serum enzymes) 10. Thrombocytopenia (D69.6: Thrombocytopenia, unspecified) 11. Cirrhosis (K74.60: Unspecified cirrhosis of liver) 12. 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 If positive, will proceed with colonoscopy Obtain ultrasound of the abdomen to check for cirrhosis and ascites Obtain iron studies, hepatitis panel, autoimmune panel, AMA, Pressman, and alpha antitrypsin Check alpha-1 protein Advised to drink 2 to 3 cups of medium roast coffee every day Advised to lose 10% of current weight Advised to avoid drinking alcohol Advised to avoid hepatotoxic medications Also get diabetes under good control Cologuard 10/19/24- Negative US 10/27/24 IMPRESSION: CHOLECYSTECTOMY. EGD w/ Dr Melendrez 10/16/24 Findings 1. Normal esophagus. Small hernia. Mild reflux apicitis 2. Erythema in the antrum, patchy with erosions. Biopsies of the stomach were taken to rule out H. pylori. 3. 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 Biopsies obtained Impression and Plan hiatal hernia Reflux esophagitis Gastropathy Lymph ectasia of the duodenum Final Diagnosis (Verified) A: STOMACH, BIOPSY: MILD CHRONIC GASTRITIS; REACTIVE GASTROPATHY - CAN NOT EXCLUDE RARE FOCAL EARLY INTESTINAL METAPLASIA - SPECIAL IHC STAIN FOR H. pylori: NEGATIVE B: DUODENUM, BIOPSY: NORMAL TO MILD VILLOUS BLUNDED VILLOUS INTESTINAL MUCOSA; - QUANTITATIVELY LIMITED SPECIMEN Laboratory Results CBC CMP PT Basophil Absolute: 0 E9/L (10/27/24) A/G Ratio: 2.1 (10/27/24) INR: 1.23 (10/27/24) Basophil Auto: 0.4 % (10/27/24) AGAP: 9 mEq/L (10/27/24) PT: 13.8 second(s) High (10/27/24) Eos Absolute: 0 E9/L (10/27/24) Albumin Lvl: 4.6 gm/dL (10/27/24) Eos Auto: 1.1 % (10/27/24) Alk Phos: 85 Int._Unit/L (10/27/24) Hct: 21.8 % Low (10/27/24) ALT: 38 Int._Unit/L (10/27/24) HGB: 7.5 gm/dL Low (10/27/24) AST: 59 Int._Unit/L High (10/27/24) Lymph Absolute: 0.8 E9/L Low (10/27/24) Bili Total: 1.6 mg/dL High (10/27/24) Lymph Auto: 27.9 % (10/27/24) BUN: 16 mg/dL (10/27/24) MCH: 43 pg High (10/27/24) BUN/Creat Ratio: 27 High (10/27/24) MCHC: 34.5 gm/dL (10/27/24) Calcium Lvl: 9.3 mg/dL (10/27/24) MCV: 124.6 fL High (10/27/24) Chloride: 105 mmol/L (10/27/24) Hunt Absolute: 0.1 E9/L Low (10/27/24) CO2: 31 mmol/L (10/27/24) Hunt Auto: 2 % Low (10/27/24) Creatinine: 0.6 mg/dL (10/27/24) MPV: 8.2 fL (10/27/24) Globulin: 2.2 gm/dL (10/27/24) Neutro Absolute: 2 E9/L (10/27/24) Glucose Lvl: 103 mg/dL (10/27/24) Neutro Auto: 68.6 % (10/27/24) Potassium Lvl: 3.5 mmol/L (10/27/24) Platelet: 60 E9/L Low (10/27/24) Sodium Lvl: 141 mmol/L (10/27/24) RBC: 1.8 E12/L Low (10/27/24) Total Protein: 6.8 gm/dL (10/27/24) RDW: 14.9 % High (10/27/24) WBC: 2.9 E9/L Low (10/27/24) Liver Studies A-1-AT: 219 High (10/27/24) AMA Ab Scr: <20.0 (10/27/24) CIPRIANO Direct: Negative (10/27/24) Ceruloplasmin: 36.3 (10/27/24) HCV Ab: Non Reactive (10/27/24) Hep A Ab: Negative (10/27/24) Hep A IgM: Negative (10/27/24) Hep B Core IgM: Negative (10/27/24) Hep Bs Ag: Negative (10/27/24) Iron: 127 mcg/dL (10/27/24) SMA Scr: 19 (10/27/24) TIBC: 301 mcg/dL (10/27/24) Celiac Panel IgA Quant: 118 (10/27/24) t-Transglutaminase IgA: <2 (10/27/24) MELD Lab Values Event Name Event Result Date/Time INR 1.23 10/27/24 Creatinine 0.6 mg/dL 10/27/24 Sodium Lvl 141 mmol/L 10/27/24 Albumin Lvl 4.6 gm/dL 10/27/24 Bili Total 1.6 mg/dL High 10/27/24 History of Present Illness I have reviewed HPI staff note, most recent labs and imaging, I agree with the above documentation with the following additions/exceptions : Patient continues to have pain in the epigastric area and continues to have forming reflux and nausea She could be performed History of gastric emptying test with no gastroparesis History of cholecystectomy Repeat liver imaging did not show cirrhosis Review of Systems PHQ Score Initial Depression Screen Score: 0 SCORE All systems reviewed, negative except as mentioned above Physical Exam Vitals & Measurements BP: 102/71 HT: 158 cm HT: 62 in WT: 65.5 kg WT: 144.403 lb BMI: 26.24 General: alert, no acute distress HEENT: atraumatic normocephalic Cardiovascular: regular rate and rhythm, normal peripheral perfusion Respiratory: Lungs CTA, respirations non labored Extremities: no deformity, no trauma Abdomen: Benign, soft, tender nondistended Assessment/Plan 1. Elevated alkaline phosphatase level (R74.8: Abnormal levels of other serum enzymes) Ordered: esomeprazole, 40 mg = 1 cap(s), Oral, Daily, # 30 cap(s), Refills(s) 8, Pharmacy: [facility] #[id number], 158, cm, 10/31/24 13:10:00 EDT, Height/Length Dosing, 65.5, kg, 10/31/24 13:10:00 EDT, Weight Dosing sucralfate, 1 gm = 10 mL, Oral, QID, X 14 day(s), # 560 mL, Refills(s) 5, Pharmacy: [email or web address] #[id number], 158, cm, 10/31/24 13:10:00 EDT, Height/Length Dosing, 65.5, kg, 10/31/24 13:10:00 EDT, Weight Dosing Acute Hepatitis A B C Panel Alkaline Phosphatase Isoenzymes Alpha Fetoprotein Tumor Marker Yrtcb-5-Uobefciywbf CIPRIANO w/Reflex if POS Antimitochondrial Antibody, Quantitative CBC w/ Auto Diff Ceruloplasmin Comprehensive Metabolic Panel Hepatitis A Virus (HAV) Antibody, Total Hepatitis B Surface Antibody IgA, Quant. IgG, Quant. Smooth Muscle Antibody Screen t-Transglutaminase IgA 2. Thrombocytopenia (D69.6: Thrombocytopenia, unspecified) Ordered: esomeprazole, 40 mg = 1 cap(s), Oral, Daily, # 30 cap(s), Refills(s) 8, Pharmacy: [email or web address] #[id number], 158, cm, 10/31/24 13:10:00 EDT, Height/Length Dosing, 65.5, kg, 10/31/24 13:10:00 EDT, Weight Dosing sucralfate, 1 gm = 10 mL, Oral, QID, X 14 day(s), # 560 mL, Refills(s) 5, Pharmacy: [email or web address] #[id number], 158, cm, 10/31/24 13:10:00 EDT, Height/Length Dosing, 65.5, kg, 10/31/24 13:10:00 EDT, Weight Dosing CBC w/ Auto Diff Comprehensive Metabolic Panel 3. 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 Abdominal pain (R10.9: Unspecified abdominal pain) Ordered: esomeprazole, 40 mg = 1 cap(s), Oral, Daily, # 30 cap(s), Refills(s) 8, Pharmacy: [email or web address] #[id number], 158, cm, 10/31/24 13:10:00 EDT, Height/Length Dosing, 65.5, kg, 10/31/24 13:10:00 EDT, Weight Dosing sucralfate, 1 gm = 10 mL, Oral, QID, X 14 day(s), # 560 mL, Refills(s) 5, Pharmacy: [email or web address] #[id number], 158, cm, 10/31/24 13:10:00 EDT, Height/Length Dosing, 65.5, kg, 10/31/24 13:10:00 EDT, Weight Dosing Acute Hepatitis A B C Panel Alkaline Phosphatase Isoenzymes Alpha Fetoprotein Tumor Marker Waczb-7-Jpskyyipddk CIPRIANO w/Reflex if POS Antimitochondrial Antibody, Quantitative Ceruloplasmin Hepatitis A Virus (HAV) Antibody, Total Hepatitis B Surface Antibody IgA, Quant. IgG, Quant. Smooth Muscle Antibody Screen t-Transglutaminase IgA 5. Nausea (R11.0: Nausea) Ordered: esomeprazole, 40 mg = 1 cap(s), Oral, Daily, # 30 cap(s), Refills(s) 8, Pharmacy: [email or web address] #[id number], 158, cm, 10/31/24 13:10:00 EDT, Height/Length Dosing, 65.5, kg, 10/31/24 13:10:00 EDT, Weight Dosing sucralfate, 1 gm = 10 mL, Oral, QID, X 14 day(s), # 560 mL, Refills(s) 5, Pharmacy: [email or web address] #[id number], 158, cm, 10/31/24 13:10:00 EDT, Height/Length Dosing, 65.5, kg, 10/31/24 13:10:00 EDT, Weight Dosing Acute Hepatitis A B C Panel Alkaline Phosphatase Isoenzymes Alpha Fetoprotein Tumor Marker Pojrg-3-Otaqipnoivg CIPRIANO w/Reflex if POS Antimitochondrial Antibody, Quantitative Ceruloplasmin Hepatitis A Virus (HAV) Antibody, Total Hepatitis B Surface Antibody IgA, Quant. IgG, Quant. Smooth Muscle Antibody Screen t-Transglutaminase IgA 6. Epigastric pain (R10.13: Epigastric pain) Ordered: esomeprazole, 40 mg = 1 cap(s), Oral, Daily, # 30 cap(s), Refills(s) 8, Pharmacy: [email or web address] #[id number], 158, cm, 10/31/24 13:10:00 EDT, Height/Length Dosing, 65.5, kg, 10/31/24 13:10:00 EDT, Weight Dosing sucralfate, 1 gm = 10 mL, Oral, QID, X 14 day(s), # 560 mL, Refills(s) 5, Pharmacy: [email or web address] #[id number], 158, cm, 10/31/24 13:10:00 EDT, Height/Length Dosing, 65.5, kg, 10/31/24 13:10:00 EDT, Weight Dosing Acute Hepatitis A B C Panel Alkaline Phosphatase Isoenzymes Alpha Fetoprotein Tumor Marker Wkhrl-5-Mthzdzuuuov CIPRIANO w/Reflex if POS Antimitochondrial Antibody, Quantitative Ceruloplasmin Hepatitis A Virus (HAV) Antibody, Total Hepatitis B Surface Antibody IgA, Quant. IgG, Quant. Smooth Muscle Antibody Screen t-Transglutaminase IgA 7. Early satiety (R68.81: Early satiety) Ordered: esomeprazole, 40 mg = 1 cap(s), Oral, Daily, # 30 cap(s), Refills(s) 8, Pharmacy: [email or web address] #[id number], 158, cm, 10/31/24 13:10:00 EDT, Height/Length Dosing, 65.5, kg, 10/31/24 13:10:00 EDT, Weight Dosing sucralfate, 1 gm = 10 mL, Oral, QID, X 14 day(s), # 560 mL, Refills(s) 5, Pharmacy: [email or web address] #[id number], 158, cm, 10/31/24 13:10:00 EDT, Height/Length Dosing, 65.5, kg, 10/31/24 13:10:00 EDT, Weight Dosing Acute Hepatitis A B C Panel Alkaline Phosphatase Isoenzymes Alpha Fetoprotein Tumor Marker Eowiv-6-Zouqunothzy CIPRIANO w/Reflex if POS Antimitochondrial Antibody, Quantitative Ceruloplasmin Hepatitis A Virus (HAV) Antibody, Total Hepatitis B Surface Antibody IgA, Quant. IgG, Quant. Smooth Muscle Antibody Screen t-Transglutaminase IgA 8. Heartburn (R12: Heartburn) Ordered: esomeprazole, 40 mg = 1 cap(s), Oral, Daily, # 30 cap(s), Refills(s) 8, Pharmacy: [email or web address] #[id number], 158, cm, 10/31/24 13:10:00 EDT, Height/Length Dosing, 65.5, kg, 10/31/24 13:10:00 EDT, Weight Dosing sucralfate, 1 gm = 10 mL, Oral, QID, X 14 day(s), # 560 mL, Refills(s) 5, Pharmacy: [email or web address] #[id number], 158, cm, 10/31/24 13:10:00 EDT, Height/Length Dosing, 65.5, kg, 10/31/24 13:10:00 EDT, Weight Dosing Acute Hepatitis A B C Panel Alkaline Phosphatase Isoenzymes Alpha Fetoprotein Tumor Marker Mdksu-7-Bcyofdanowl CIPRIANO w/Reflex if POS Antimitochondrial Antibody, Quantitative Ceruloplasmin Hepatitis A Virus (HAV) Antibody, Total Hepatitis B Surface Antibody IgA, Quant. IgG, Quant. Smooth Muscle Antibody Screen t-Transglutaminase IgA 9. History of pancreatitis (Z87.19: Personal history of other diseases of the digestive system) Ordered: esomeprazole, 40 mg = 1 cap(s), Oral, Daily, # 30 cap(s), Refills(s) 8, Pharmacy: [email or web address] #[id number], 158, cm, 10/31/24 13:10:00 EDT, Height/Length Dosing, 65.5, kg, 10/31/24 13:10:00 EDT, Weight Dosing sucralfate, 1 gm = 10 mL, Oral, QID, X 14 day(s), # 560 mL, Refills(s) 5, [facility][id number], 158, cm, 10/31/24 13:10:00 EDT, Height/Length Dosing, 65.5, kg, 10/31/24 13:10:00 EDT, Weight Dosing Acute Hepatitis A B C Panel Alkaline Phosphatase Isoenzymes Alpha Fetoprotein Tumor Marker Gyddd-3-Nlusrhfrluq CIPRIANO w/Reflex if POS Antimitochondrial Antibody, Quantitative Ceruloplasmin Hepatitis A Virus (HAV) Antibody, Total Hepatitis B Surface Antibody IgA, Quant. IgG, Quant. Smooth Muscle Antibody Screen t-Transglutaminase IgA 10. Gastropathy (K31.9: Disease of stomach and duodenum, unspecified) Orders: .Interpretation: WRITTEN AUTHORIZATION Advised the patient to start Nexium 40 mg and Carafate 1 g 4 times daily Patient may benefit from Questran or ursodiol for possible bile reflux Follow antidumping diet Repeat CBC and CMP and consider repeating liver imaging in the future Continue to drink 2 to 3 cups of medium roast coffee every day Continue to avoid alcohol consumption Follow-up No qualifying data available Problem List/Past Medical History Ongoing Abdominal pain Acute epigastric pain Agoraphobia Blood loss anemia Cervical disc disease Cirrhosis Depression Diabetes mellitus Diverticulitis Early satiety Elevated alkaline phosphatase level Epigastric pain Gastritis Gastropathy GERD (gastroesophageal reflux disease) Heartburn History of colon polyps History of pancreatitis Hypercholesterolemia Hyperplastic colon polyp Hypothyroidism Lesion of earlobe Nausea Screen for colon cancer Sleep apnea Smoker Status post cholecystectomy Stress incontinence Thrombocytopenia Thyromegaly Historical FH: cholecystectomy Procedure/Surgical History Esophagogastroduodenoscopy (10/16/2024), Esophagogastroduodenoscopy (05/22/2022), TVT with sling (09/10/2017), Abdominal hysterectomy, Cholecystectomy, Closed fracture of right wrist, feet, History of arthroplasty of right knee, History of cholecystectomy. Medications Amaryl 4 mg Tab, 4 mg= 1 tab(s), Oral, Daily Carafate 1 g/10 mL Susp-Oral, 1 gm= 10 mL, Oral, QID, 5 refills Carafate 1 gram Tab, 1 gm= 1 tab(s), Oral, QID, 4 refills, Not taking Celexa, 20 mg, Oral, Daily Crestor, 5 mg, Oral, Once a day (at bedtime) Cytomel 5 mcg Tab, Oral, Daily Klonopin, 2 mg, Oral, TID Nexium 40 mg Cap-EC, 40 mg= 1 cap(s), Oral, Daily, 8 refills pantoprazole 40 mg Oral EC Tab, 40 mg= 1 tab(s), Oral, Daily, 3 refills, Not taking Semglee, SubCutaneous, Daily Synthroid, 125 mcg, Oral, Daily Allergies Bactrim (Flu-like symptoms) Zocor (Unknown) simvastatin (Unknown, Unknown) sulfamethoxazole (Unknown) Social History Alcohol - Denies Alcohol Use, 08/27/2017 Never., 05/30/2024 Substance Abuse - Denies Substance Abuse, 08/27/2017 Never., 05/30/2024 Tobacco - High Risk, 08/27/2017 10 or more cigarettes (1/2 pack or more)/day in last 30 days Tobacco Use:., 10/31/2024 Family History Diabetes mellitus type 2: Mother and Brother. Hypertension: Mother and Brother. Primary malignant neoplasm of brain: Brother. Primary malignant neoplasm of prostate: Father. Immunizations Vaccine Date Status Comments influenza virus vaccine, inactivated - Not Given Patient Refuses influenza virus vaccine, inactivated 03/2022 Recorded influenza virus vaccine, inactivated 05/29/2021 Recorded SARS-CoV-2 (COVID-19) mRNA BNT-162b2 vax 05/29/2021 Recorded SARS-CoV-2 (COVID-19) mRNA BNT-162b2 vax 09/28/2020 Recorded SARS-CoV-2 (COVID-19) mRNA BNT-162b2 vax 09/07/2020 Recorded influenza virus vaccine, inactivated 05/16/2018 Recorded influenza virus vaccine, inactivated 05/04/2018 Recorded influenza virus vaccine, inactivated 03/28/2015 Recorded diphtheria/pertussis, acel/tetanus adult 01/31/2010 Recorded Result Comment: Electronical ly Signed By: Parvin LAND, Roseline Cook.[email or web address]\Date and Time Signed: 10/31/24 13:37 EDT AMBULATORY VISIT SUMMARY Observed: 10/31 12:45 PM Status: F Source: [facility] Ambulatory Visit Summary ANDREIA THOMAS :1965 Visit Date:10/31/2024 Ambulatory Visit Instructions Your Diagnosis Elevated alkaline phosphatase level Thrombocytopenia Blood loss anemia Abdominal pain Nausea Epigastric pain Early satiety Heartburn History of pancreatitis Gastropathy Your Care Team Attending Physician - Parvin LAND, Roseline Chase Primary Care Physician - Kaitlyn Downing MD This Is Your Medications List citalopram (Celexa) clonazepam (Klonopin) esomeprazole (Nexium 40 mg Cap-EC) glimepiride (Amaryl 4 mg Tab) insulin glargine (Semglee) levothyroxine (Synthroid) liothyronine (Cytomel 5 mcg Tab) pantoprazole (pantoprazole 40 mg Oral EC Tab) rosuvastatin (Crestor) sucralfate (Carafate 1 g/10 mL Susp-Oral) sucralfate (Carafate 1 gram Tab) Procedures Performed Esophagogastroduodenoscopy (10/16/2024), Esophagogastroduodenoscopy (05/22/2022), TVT with sling (09/10/2017), Abdominal hysterectomy, Cholecystectomy, Closed fracture of right wrist, feet, History of arthroplasty of right knee, History of cholecystectomy. Discharge Vitals Blood Pressure 102/71 Height 158 cm Height 62 in Weight 65.5 kg Weight 144.403 lb BMI 26.24 What to do next Scheduled Follow-Up Appointments 2024 9:30 AM EDT With: Parvin LAND, Roseline Chase Where: [facility] [address] [place] [address] [place] [phone]- Medications What How Much When Why Instructions New esomeprazole (Nexium 40 mg Cap-EC) 1 Capsules By Mouth Every day Elevated alkaline phosphatase level Cirrhosis Thrombocytopenia Blood loss anemia Abdominal pain Nausea Epigastric pain Early satiety Heartburn History of pancreatitis Refills: 8 Pickup at [email or web address] #[id number] Changed sucralfate (Carafate 1 g/ 10 mL Susp-Oral) 10 Milliliter By Mouth 4 times a day Elevated alkaline phosphatase level Cirrhosis Thrombocytopenia Blood loss anemia Abdominal pain Nausea Epigastric pain Early satiety Heartburn History of pancreatitis Duration: 14 Days Pickup at [email or web address] #[id number] Changed sucralfate (Carafate 1 gram Tab) 1 Tablets By Mouth 4 times a day Unchanged citalopram (Celexa) 20 Milligram By Mouth Every day Unchanged clonazepam (Klonopin) 2 Milligram By Mouth 3 times a day Unchanged glimepiride (Amaryl 4 mg Tab) 1 Tablets By Mouth Every day Unchanged insulin glargine (Semglee) Subcutaneous Every day Unchanged levothyroxine (Synthroid) 125 Microgram By Mouth Every day Unchanged liothyronine (Cytomel 5 mcg Tab) By Mouth Every day Unchanged pantoprazole (pantoprazole 40 mg Oral EC Tab) 1 Tablets By Mouth Every day Acute epigastric pain Nausea Abdominal pain Heartburn Unchanged rosuvastatin (Crestor) 5 Milligram By Mouth Once a day (at bedtime) Pharmacy Information [facility] #[id number]: [address], [place] [id number] [phone] Allergies Bactrim (Flu-like symptoms) Zocor (Unknown) simvastatin (Unknown, Unknown) sulfamethoxazole (Unknown) Problems Ongoing - Any problem that you are currently receiving treatment for. Abdominal pain Acute epigastric pain Agoraphobia Blood loss anemia Cervical disc disease Cirrhosis Depression Diabetes mellitus Diverticulitis Early satiety Elevated alkaline phosphatase level Epigastric pain Gastritis Gastropathy GERD (gastroesophageal reflux disease) Heartburn History of colon polyps History of pancreatitis Hypercholesterolemia Hyperplastic colon polyp Hypothyroidism Lesion of earlobe Nausea Screen for colon cancer Sleep apnea Smoker Status post cholecystectomy Stress incontinence Thrombocytopenia Thyromegaly Historical - Any problem that you are no longer receiving treatment for. FH: cholecystectomy Patient Survey You may receive a survey via text or e-mail asking about your office visit. Please share your experience with us by completing your survey. We appreciate your feedback and thank you for choosing us for your care. CBC W/ AUTO DIFF Collected: 10/27/2024 9:23 AM Statu s: F Source: [facility] TYPE CODE TESTS RESULT OUT OF RANGE REFERENCE UNITS LAB 63181-0(LOINC) LEUKOCYTES^^COR RECTED FOR NUCLEATED ERYTHROCYTES:NC NC:PT:BLD:QN:AU TOMATED COUNT 2.9 Low 4.0-11.0 E9/L LAB 789-8(LOINC) ERYTHROCYTES:NC NC:PT:BLD:QN:AU TOMATED COUNT 1.8 Low 4.3-5.9 E12/L LAB 718-7([facility]) HEMOGLOBIN:MCNC :PT:BLD:QN: 7.5 Low 12.0-16.0 gm/dL LAB 4544-3([facility]) ERYTHROCYTE/BLO OD:VFR:PT:BLD:Q N:AUTOMATED COUNT 21.8 Low 34.0-46.0 % LAB 788-0([facility]) OBSERVATION:DIS TWIDTH:PT:RBC:Q N:AUTOMATED COUNT 14.9 High 10.9-14.2 % LAB 785-6([facility]) HEMOGLOBIN:ENTM ASS:PT:RBC:QN:A UTOMATED COUNT 43.0 High 27.0-34.0 pg LAB 786-4([facility]) HEMOGLOBIN:ENTM CNC:PT:RBC:QN:A UTOMATED COUNT 34.5 Normal 31.4-36.0 gm/dL LAB 787-2([facility]) OBSERVATION:ENT MEANVOL:PT:RBC: QN:AUTOMATED COUNT 124.6 High 80.0-100.0 fL LAB 54738-8([facility]) PLATELET:ENTMEA NVOL:PT:BLD:QN: AUTOMATED COUNT 8.2 Normal 6.4-10.8 fL LAB 777-3([facility]) PLATELETS:NCNC: PT:BLD:QN:AUTOM ATED COUNT 60.0 Low 150.0-500.0 E9/L LAB 92605-8([facility]) NEUTROPHILS/SHAR KOCYTES:NFR:PT: BLD:QN: 68.6 Normal 36.0-75.0 % LAB 731-0([facility]) LYMPHOCYTES:NCN C:PT:BLD:QN:AUT OMATED COUNT 27.9 Normal 14.0-50.0 % LAB 742-7([facility]) MONOCYTES:NCNC: PT:BLD:QN:AUTOM ATED COUNT 0.1 Low 0.2-1.0 E9/L LAB 713-8([facility]) EOSINOPHILS/SHAR KOCYTES:NFR:PT: BLD:QN:AUTOMATE D COUNT 1.1 Normal 0.0-8.0 % LAB 704-7([facility]) BASOPHILS:NCNC: PT:BLD:QN:AUTOM ATED COUNT 0.4 Normal 0.0-2.0 % LAB 751-8([facility]) NEUTROPHILS:NCN C:PT:BLD:QN:AUT OMATED COUNT 2.0 Normal 2.0-7.5 E9/L LAB 42595-3([facility]) LYMPHOCYTES:NCN C:PT:BLD:QN: 0.8 Low 1.0-4.0 E9/L LAB 43520-5([facility]) EOSINOPHILS:NCN C:PT:BLD:QN: 0.0 Normal 0.0-0.5 E9/L LAB 17736-9([facility]) BASOPHILS/LEUKO CYTES:NFR.DF:PT :BLD:QN:AUTOMAT ED COUNT 0.0 Normal 0.0-0.2 E9/L LAB 46138-8([facility]) ERYTHROCYTE SIZE:MORPH:PT:B LD:NOM: SEE MORPHOLOGY Unknown LAB 74378-1([facility]) HYPOCHROMIA:PRT HR:PT:BLD:ORD:A UTOMATED COUNT PRESENT Unknown LAB 38113-6([facility]) POLYCHROMASIA:P RTHR:PT:BLD:ORD :MICROSCOPY.LIG HT PRESENT Unknown LAB 702-1([facility]) ANISOCYTOSIS:OK THR:PT:BLD:ORD: MICROSCOPY.LIGH T PRESENT Unknown LAB 79879-3([facility]) MICROCYTES:PRTH R:PT:BLD:ORD:AU TOMATED COUNT PRESENT Unknown LAB 774-0([facility]) OVALOCYTES:PRTH R:PT:BLD:ORD:AR CROSCOPY.LIGHT PRESENT Unknown Performed By: #### [id number] # ### [facility] [address] [place] [address] HEP BS AB Collected: 5 9:23 AM Status: F Source: [facility] TYPE CODE TESTS RESULT OUT OF RANGE REFERENCE UNITS LAB 74115-4([facility]) HEPATITIS B VIRUS SURFACE AB:PRTHR:PT:S ER:ORD: Non Reactive Unknown Result Comment: Non Reactive : Not immune to HBV infection. Equivocal: Unable to determine if anti-HBs is present at levels consistent with immunity. Reactive: Anti-HBs concentration detected at greater than 10 mIU/mL. Individual is considered to be immune to infection with HBV. Performed at: [address] [id number] PhD Jean Schmidt Performed By: #### [id number] # ### [facility] [address] [place] [id number] HEPATITIS A VIRUS (HAV) ANTI BODY, TOTAL Collected: 10/27/2024 9:23 AM Status: F Source: [facility] TYPE CODE TESTS RESULT OUT OF RANGE REFERENCE UNITS LAB 85349-9(LOINC) HEPATITIS A VIRUS AB:PRTHR:PT:S ER:ORD:IA Negative Unknown Negative Result Comment: Comment: The HAV total antibody assay detects both IgG and IgM but does not differentiate between them. A negative result suggests susceptibility to infection. A positive result could be due to vaccination, previously resolved infection or active infection. Testing for HAV IgM should be performed if active HAV infection is suspected. [facility] offers profiles that will automatically reflex positive HAV total antibody results to IgM (e.g., panel #[id number] HAV Antibody w/ Rfx). Performed at: [address] [id number] PhD Jean Schmidt Performed By: #### [id number] #### [facility] [address] [place] [id number] AFP Collected: 9:23 AM Status: F Source: [facility] TYPE CODE TESTS RESULT OUT OF RANGE REFERENCE UNITS LAB 17511-4(LOINC ) ALPHA-1-FE TOPROTEIN. TUMOR MARKER:MCN C:PT:SER/P LAS:QN: 3.6 Unknown 0.0-9.2 ng/mL Result Comment: [employer] Electrochemiluminescence Immunoassay (ECLIA) Values obtained with different assay methods or kits cannot be used interchangeably. Results cannot be interpreted as absolute evidence of the presence or absence of malignant disease. This test is not interpretable in females. Performed at: [address] [id number] PhD Jean Schmidt Performed By: #### [id number] # ### [facility] [address] [place] [address] 33558 ALK PHOS ISOS Collected: 9:23 AM Status: F Source: [facility] TYPE CODE TESTS RESULT OUT OF RANGE REFERENCE UNITS LAB 11344-1([facility]) ALKALINE PHOSPHATASE.B ONE/ALKALINE PHOSPHATASE.T OTAL:CFR:PT:S ER/PLAS:QN: 28 Unknown 14-68 % LAB 26301-4([facility]) ALKALINE PHOSPHATASE.I NTESTINAL/ALK NIC PHOSPHATASE.T OTAL:CFR:PT:S ER/PLAS:QN: 0 Unknown 0-18 % Result Comment: Performed at : [address] [id number] PhD Jean Schmidt LAB 72154-2([facility]) ALKALINE PHOSPHATASE.L IVER/ALKALINE PHOSPHATASE.T OTAL:CFR:PT:S ER/PLAS:QN: 72 Unknown 18-85 % LAB 6768-6([facility]) ALKALINE PHOSPHATASE:C CNC:PT:SER/PL :QN: 104 Unknown 44-121 Int._Unit /L Performed By: #### [id number] #### [facility] [address] [place] [address] 12642 IGA, QUANT. Collected: 10/27/2024 9:23 AM Status: F Source: [facility] TYPE CODE TESTS RESULT OUT OF RANGE REFERENCE UNITS LAB 2458-8([facility]) IGA:MCNC:PT:S ER/PLAS:QN: 118 Unknown 87-352 mg/dL Result Comment: Performed at : [address] [id number] PhD Jean Schmidt Performed By: #### [id number] #### [facility] [address] [place] [address] IGG, QUANT. Collected: 10/27/2024 9:23 AM Status: F Source: [facility] TYPE CODE TESTS RESULT OUT OF RANGE REFERENCE UNITS LAB 2465-3([facility]) IGG:MCNC:PT:S ER/PLAS:QN: 652 Unknown 586-1602 mg/dL Result Comment: Performed at : [address] [id number] PhD Jean Schmidt Performed By: #### [id number] #### [facility] [address] [place] [address] PT Collected: 5 9:23 AM Status: F Source: [facility] TYPE CODE TESTS RESULT OUT OF RANGE REFERENCE UNITS LAB 6301-6([facility]) COAGULATION TISSUE FACTOR INDUCED.INR:RE LTIME:PT:PPP:Q N:COAG 1.23 Unknown Result Comment: INR results are specifically intended to assess patients stabilized on long-term Anticoagulation therapy suggested INR???s ???Less Intensive Anticoagulation??? 2.0 ??? 3.0 Conventional Range 3.0 ??? 4.5 LAB 5902-2([facility]) COAGULATION TISSUE FACTOR INDUCED:TIME:P T:PPP:QN:COAG 13.8 High 9.4-12.5 second(s ) Result Comment: 15 days - 4 weeks 1 - 5 months 6 -11 months 1 ??? 5 years 6 ??? 10 years 11 -17 years Mean: 11.2 (9.5 ??? 12.6) Mean: 11.0 (9.7 ??? 12.8) Mean: 11.0 (9.8 ??? 13.0) Mean: 11.3 (9.9 ??? 13.4) Mean: 11.7 (10.0 ??? 14.6) Mean: 11.8 (10.0 - 14.1) Pediatric Reference ranges were obtained from a study by Cali Conde et al. prepared from 1437 samples obtained at 7 different centers using the same coagulation reagent and instrumentation as [facility]. Currently there are no coagulation studies available worldwide for children to 14 days, and no normal ranges. Performed By: #### [id number] # ### [facility] [address] [place] [address] EGFR Collected: 5 9:23 AM Status: F Source: [facility] TYPE CODE TESTS RESULT OUT OF RANGE REFERENCE UNITS LAB 73309756(INC) eGFR 102 Normal >=59 mL/min/1 .7 3 m2 Performed By: #### [id number] #### [facility] [address] [place] [address] 73592 IRON Collected: 9:23 AM Status: F Source: [facility] TYPE CODE TESTS RESULT OUT OF RANGE REFERENCE UNITS LAB 2498-4([facility]) IRON:MCNC:PT :SER/PLAS:QN : 127 Normal 35-153 microgram/ dL Performed By: #### [id number] # ### [facility] [address] [place] [address] 80564 ALPHA 1 ANTITRP Collected: 10/27/2024 9:23 AM Status : F Source: [facility] TYPE CODE TESTS RESULT OUT OF RANGE REFERENCE UNITS LAB 1825-9([facility]) ALPHA 1 ANTITRYPSIN:M CNC:PT:SER/PL :QN: 219 High 101-187 mg/dL Result Comment: Performed at : [facility] [address] [id number] PhD Jean Schmidt Performed By: #### [id number] #### [facility] [address] [place] [address] 35648 VITAMIN D 25 HYDROXY Collected: 10/27/2024 9:23 AM S tatus: F Source: [facility] TYPE CODE TESTS RESULT OUT OF RANGE REFERENCE UNITS LAB 1988-3([facility]) CALCIDIOL:MCN C:PT:SER/PLAS :QN: 9.6 Low 30.0-100.0 ng/mL Performed By: #### [id number] #### [facility] [address] [place] [address] 21720 ACUTE HEPATITIS A B C PANEL Collected: 10/27/2024 9:23 AM Status: F Source: [facility] TYPE CODE TESTS RESULT OUT OF RANGE REFERENCE UNITS LAB 21214-4([facility]) HEPATITIS A VIRUS AB.IGM:PRTHR: PT:SER/PLAS:O RD:IA Negative Unknown Negative Result Comment: A negative a nti-HAV IgM result suggests no recent or current HAV infection. LAB 5196-1([facility]) HEPATITIS B VIRUS SURFACE AG:PRTHR:PT:S ER/PLAS:ORD:I A Negative Unknown Negative LAB 85374-7([facility]) HEPATITIS B VIRUS CORE AB.IGM:PRTHR: PT:SER/PLAS:O RD:IA Negative Unknown Negative LAB 44805-7([facility]) HEPATITIS C VIRUS AB:PRTHR:PT:S ER/PLAS:ORD:I A Non Reactive Unknown Non Reactive Result Comment: Performed at : [address] [id number] PhD Jean cShmidt Performed By: #### [id number] #### [facility] [address] [place] [address] SMOOTH MUSCLE AB Collected: 9:23 AM Status: F Source: [facility] TYPE CODE TESTS RESULT OUT OF RANGE REFERENCE UNITS LAB 93868-5([facility]) ACTIN.SMOOTH MUSCLE AB.IGG:ACNC: PT:SER:QN: 19 Unknown 0-19 unit(s) Result Comment: Negative 0 - 19 Weak positive 20 - 30 Moderate to strong positive >30 Actin Antibodies are found in 52-85% of patients with autoimmune hepatitis or chronic active hepatitis and in 22% of patients with primary biliary cirrhosis. Performed at: [address] [id number] PhD Jean Schmidt Performed By: #### [id number] #### [facility] [address] [place], [place] [id number] .INTERPRETATION: Collected: 9:23 AM Status: F Source: [facility] TYPE CODE TESTS RESULT OUT OF RANGE REFERENCE UNITS LAB 92893-9([facility]) HEPATITIS C VIRUS AB:PRTHR:PT:S ER/PLAS:ORD:I A Comment Unknown Result Comment: Not infected with HCV unless early or acute infection is suspected (which may be delayed in an immunocompromised individual), or other evidence exists to indicate HCV infection. Performed at: [address] [id number] PhD Jean Schmidt Performed By: #### [id number] #### [facility] [address] [place] [address] WRITTEN AUTHORIZATION Collected: 10/27/2024 9:23 AM Status: F Source: [facility] TYPE CODE TESTS RESULT OUT OF RANGE REFERENCE UNITS LAB [id number]([facility] ) Written Authorization Comment Unknown Result Comment: Written Auth orization Received. Authorization received from [employer] 10-30-2024 Logged by Kateryna Bowser Performed at: [facility] [address] [id number] PhD Jean Schmidt Performed By: #### [id number] #### [facility] [address] [place] [address] CMP Collected: 10/27/2024 9:23 AM Status: F Source: [facility] TYPE CODE TESTS RESULT OUT OF RANGE REFERENCE UNITS LAB 2345-7([facility]) GLUCOSE:MCNC:P T:SER/PLAS:QN: 103 Normal 55-199 mg/dL LAB 3094-0([facility]) UREA NITROGEN:MCNC: PT:SER/PLAS:QN : 16 Normal 5-21 mg/dL LAB 2160-0([facility]) CREATININE:MCN C:PT:SER/PLAS: QN: 0.6 Normal 0.5-1.3 mg/dL LAB 57601-2([facility]) CALCIUM:MCNC:P T:SER/PLAS:QN: 9.3 Normal 8.9-11.1 mg/dL LAB 2951-2([facility]) SODIUM:SCNC:PT :SER/PLAS:QN: 141 Normal 135-145 mmol/L LAB 2823-3([facility]) POTASSIUM:SCNC :PT:SER/PLAS:Q N: 3.5 Normal 3.5-5.3 mmol/L LAB 2075-0([facility]) CHLORIDE:SCNC: PT:SER/PLAS:QN : 105 Normal 101-111 mmol/L LAB 8-9([facility]) CARBON DIOXIDE:SCNC:P T:SER/PLAS:QN: 31 Normal 21-31 mmol/L LAB 6768-6([facility]) ALKALINE PHOSPHATASE:CC NC:PT:SER/PLAS :QN: 85 Normal 21-98 Int._Unit /L LAB 1975-2([facility]) BILIRUBIN:MCNC :PT:SER/PLAS:Q N: 1.6 High 0.0-1.1 mg/dL LAB 1751-7([facility]) ALBUMIN:MCNC:P T:SER/PLAS:QN: 4.6 Normal 3.3-5.0 gm/dL LAB 2885-2([facility]) PROTEIN:MCNC:P T:SER/PLAS:QN: 6.8 Normal 6.0-7.8 gm/dL LAB 1744-2([facility]) ALANINE AMINOTRANSFERA SE:CCNC:PT:SER /PLAS:QN:NO ADDITION OF P-5'-P 38 Normal 6-46 Int._Unit /L LAB 1920-8([facility]) ASPARTATE AMINOTRANSFERA SE:CCNC:PT:SER /PLAS:QN: 59 High 5-43 Int._Unit /L LAB 3097-3([facility]) UREA NITROGEN/CREAT ININE:MRTO:PT: SER/PLAS:QN: 27 High 10-20 No Units LAB 98805-3([facility]) ANION GAP:SCNC:PT:SE R/PLAS:QN:CALC ULATED 9 Normal 6-16 mEq/L LAB 75030-0([facility]) GLOBULIN:MCNC: PT:SER:QN:CALC ULATED 2.2 Normal 1.4-4.0 gm/dL LAB 79753-2([facility]) ALBUMIN/GLOBUL IN:MCRTO:PT:SE R:QN: 2.1 Normal 1.1-2.2 Performed By: #### [id number] # ### [facility] [address] [place] [address] AMA AB SCR Collected: 10/27/2024 9:23 AM Status: F Source: [facility] TYPE CODE TESTS RESULT OUT OF RANGE REFERENCE UNITS LAB 15865-9([facility]) MITOCHONDRIA M2 AB.IGG:ACNC:PT:S ER:QN: <20.0 Unknown 0.0-20.0 unit(s) Result Comment: Negative 0.0 - 20.0 Equivocal 20.1 - 24.9 Positive >24.9 Mitochondrial (M2) Antibodies are found in 90-96% of patients with primary biliary cirrhosis. Performed at: [facility] [address] [place], [place] [id number] PhD Jean Schmidt Performed By: #### [id number] #### [facility] [address] [place] [address] CIPRIANO W/REFLEX IF POS Collected: 10/28/19 9:23 AM Status: F Source: [facility] TYPE CODE TESTS RESULT OUT OF RANGE REFERENCE UNITS LAB 8061-4([facility]) NUCLEAR AB:PRTHR:PT: SER:ORD: Negative Unknown Negative Result Comment: Performed at : [address] [id number] PhD Jean Schmidt Performed By: #### [id number] #### [facility] [address] [place] [address]158 CERULOPLASMIN Collected: 9:23 AM Status: F Source: [facility] TYPE CODE TESTS RESULT OUT OF RANGE REFERENCE UNITS LAB 2064-4([facility]) CERULOPLASMI N:MCNC:PT:SE R/PLAS:QN: 36.3 Unknown 19.0-39.0 mg/dL Result Comment: Performed at : [address] [id number] PhD Jean Schmidt Performed By: #### [id number] #### [facility] [address] [place] [address] 52256 T-TG IGA Collected: 10/27/2024 9:23 AM Status: F Source: [facility] TYPE CODE TESTS RESULT OUT OF RANGE REFERENCE UNITS LAB 79196-3([facility] ) TISSUE TRANSGLUTAMINASE AB.IGA:ACNC:PT:SER :QN: <2 Unknown 0-3 unit/mL Result Comment: Negative 0 - 3 Weak Positive 4 - 10 Positive >10 Tissue Transglutaminase (tTG) has been identified as the endomysial antigen. Studies have demonstr- ated that endomysial IgA antibodies have over 99% specificity for gluten sensitive enteropathy. Performed at: [address] [id number] PhD Jean Schmidt Performed By: #### [id number] #### [facility] [address] [place] [address] 72663 TIBC CALCULATED Collected: 10/27/2024 9:23 AM Status : F Source: [facility] TYPE CODE TESTS RESULT OUT OF RANGE REFERENCE UNITS LAB 2500-7([facility]) IRON BINDING CAPACITY:MCNC:P T:SER/PLAS:QN: 301 Normal 250-400 microgram /dL LAB 82381332([facility]) Transferrin 215 Normal 200-370 mg/d L Performed By: #### [id number] #### [facility] [address] [place] [address] US ABDOMEN, LIMITED Observed: 10/27/2024 8:46 AM Status: F Source: [facility] Exam Date/Time: 10/27/2024 09:17 EDT Reason for Exam: K74.60;Cirrhosis Report IMPRESSION: CHOLECYSTECTOMY. CLINICAL HISTORY: Cirrhosis, K74.60 COMPARISON: NONE. FINDINGS: Liver normal in size, shape, and echogenicity. No intrahepatic, and no extrahepatic ductal dilatation identified. Common duct measures 2 mm. Color-flow without anomaly. Gallbladder surgically absent. Pancreas obscured by overlying bowel gas. Technical Comments: Ordering Provider: Roseline Melendrez FINAL REPORT Dictated: 10/27/2024 9:54 am Aneesh Crowe MD Signed (Electronic Signature): 10/27/2024 9:54 am Signed by: Aneesh Crowe MD Transcribed by: KERVIN Technologist: ABDIAZIZ REMINDERS Observed: 10/24/2024 12:21 PM Status: F Source: [facility] Reminders From: Tamiko Celis MA To: Sowmya Estes Michelle L; Sent: 10/24/2024 12:21:39 EDT Show up: 11/26/2024 12:21:00 EDT Subject: Ambulatory Reminder Due Date/Time: 01/15/2025 12:21:00 EDT Reminder/Recall EGD 12/2024 Addendum by Tamiko Celis MA on October 24, 2024 12:20:36 EDT order placed, reminder in chart From: Roseline Melendrez MD To: Tamiko Celis MA; Sent: 10/24/2024 07:58:11 EDT Subject: General Message Caller Name: ANDREIA THOMAS; Caller Number: Main , M repeat EGD after 3 months with mapping bx PROVIDER LETTER Observed: 10/19/2024 1:03 PM Status: F Source: [facility] Provider Letter October 19, 2024 ANDREIA THOMAS [address] [place] [address] : 1965 To Whom It May Concern, Please excuse the patient above from Jury Duty. They have multiple medical conditions that would prohibit sitting through jury duty. Respectfully, Roseline Melendrez MD [facility] P: [phone] F: [phone] PROGRESS NOTE-PHYSICIAN Observed: 2024 2:59 PM Status: F Source: [facility] Progress Note-Physician Patient: ANDREIA THOMAS Age: 59 years Sex: Female : 1965 Associated Diagnoses: None Author: Mike Cheng Jr, DO Postoperative Information Postoperative disposition: Postoperative disposition: To PACU. Optimetrix number: Optimetrix number [phone]. Anesthetic utilized: General. Health Status Allergies: Allergic Reactions (Selected) Severity Not Documented Bactrim- Flu-like symptoms. Simvastatin- Unknown and unknown. Sulfamethoxazole- Unknown. Zocor- Unknown. Physical Examination Vital Signs 10/16/2024 10:20 EDT Heart Rate Monitored 73 bpm Respiratory Rate Monitored 18 br/min Systolic Blood Pressure 120 mmHg Diastolic Blood Pressure 76 mmHg Mean Arterial Pressure, Cuff 91 mmHg SpO2 97 % 10/16/2024 10:05 EDT SpO2 96 % 10/16/2024 10:05 EDT Respiratory Rate Monitored 18 br/min 10/16/2024 10:05 EDT Heart Rate Monitored 77 bpm 10/16/2024 10:05 EDT Systolic Blood Pressure 90 mmHg Diastolic Blood Pressure 52 mmHg LOW Mean Arterial Pressure, Cuff 65 mmHg 10/16/2024 10:00 EDT Heart Rate Monitored 78 bpm 10/16/2024 10:00 EDT SpO2 97 % 10/16/2024 10:00 EDT Respiratory Rate Monitored 19 br/min 10/16/2024 10:00 EDT Temperature Temporal Artery 36.5 DegC Systolic Blood Pressure 87 mmHg LOW Diastolic Blood Pressure 54 mmHg LOW Mean Arterial Pressure, Cuff 65 mmHg Pain Assessment: Controlled. General: Awake, Alert, Appropriate. Respiratory: Adequate air exchange. Cardiovascular: Stable, Normal peripheral perfusion. Neurological: Normal sensory function, Normal motor function. Assessment Anesthetic outcome No anesthetic complications noted. Adequate pain relief. able to void without difficulty, able to ambulate with assist, tolerating PO intake, no N/V. Review / Management Condition: Stable. Plan Transfer/Discharge: Transfer/Discharge Discharge when meets criteria ( To home ). Result Comment: Electronical ly Signed By: Mike Cheng Jr, DO\.br\Date and Time Signed: 10/18/24 07:31 EDT PATIENT EDUCATION - TEXT Observed: 10/16 10:08 AM Status: C Source: [facility] Patient Education - Text Endoscopy Care After Procedure Please read the instructions outlined below and refer to this sheet in the next few weeks. These discharge instructions provide you with general information on caring for yourself after you leave the hospital. Your doctor may also give you specific instructions. While your treatment has been planned according to the most current medical practices available, unavoidable complications occasionally occur. If you have any problems or questions after discharge, please call your doctor. ACTIVITY ??? You may resume your regular activity but move at a slower pace for the next 24 hours. ??? Take frequent rest periods for the next 24 hours. ??? Walking will help expel (get rid of) the air and reduce the bloated feeling in your abdomen. ??? No driving for 24 hours (because of the anesthesia (medicine) used during the test). ??? You may shower. ??? Do not sign any important legal documents or operate any machinery for 24 hours (because of the anesthesia used during the test). NUTRITION ??? Drink plenty of fluids. ??? You may resume your normal diet. ??? Begin with a light meal and progress to your normal diet. ??? Avoid alcoholic beverages for 24 hours or as instructed by your caregiver. MEDICATIONS ??? You may resume your normal medications unless your caregiver tells you otherwise. WHAT YOU CAN EXPECT TODAY ??? You may experience abdominal discomfort such as a feeling of fullness or ???gas??? pains. FOLLOW-UP ??? Your doctor will discuss the results of your test with you. seek immediate medical attention if any of the following occur: ??? Excessive nausea (feeling sick to your stomach) and/or vomiting. ??? Severe abdominal pain and distention (swelling). ??? Trouble swallowing. ??? Temperature over 100 F (37.8??? C). ??? Rectal bleeding or vomiting of blood. Document Released: 01/26/2005 Document Re-Released: 12/06/2006 ExitCare??? Patient Information ???2009 [employer]. Gastroenterology Esophagitis Esophagitis is inflammation of the esophagus. The esophagus is the tube that carries food from the mouth to the stomach. Esophagitis can cause soreness or pain in the esophagus. This condition can make it difficult and painful to swallow. What are the causes? Most causes of esophagitis are not serious. Common causes of this condition include: ??? Gastroesophageal reflux disease (GERD). This is when stomach contents move back up into the esophagus (reflux). ??? Repeated vomiting. ??? An allergic reaction, especially caused by food allergies (eosinophilic esophagitis). ??? Injury to the esophagus by swallowing large pills with or without water, or swallowing certain types of medicines. ??? Swallowing harmful chemicals, such as household cleaning products. ??? Drinking a lot of alcohol. ??? An infection of the esophagus. This most often occurs in people who have a weakened immune system. ??? Radiation or chemotherapy treatment for cancer. ??? Certain diseases such as sarcoidosis, Crohn's disease, and scleroderma. What are the signs or symptoms? Symptoms of this condition include: ??? Difficult or painful swallowing. ??? Pain with swallowing acidic liquids, such as citrus juices. You may also have pain when you burp. ??? Chest pain and difficulty breathing. ??? Nausea and vomiting. ??? Pain in the abdomen. ??? Weight loss. ??? Ulcers in the mouth and white patches in the mouth (candidiasis). ??? Fever. ??? Coughing up blood or vomiting blood. ??? Stool that is black, tarry, or bright red. How is this diagnosed? This condition may be diagnosed based on your medical history and a physical exam. You may also have other tests, including: ??? A test to examine your esophagus and stomach with a small flexible tube with a camera (endoscopy). ??? A test that measures the acidity level in your esophagus. ??? A test that measures how much pressure is on your esophagus. ??? A barium swallow or modified barium swallow to show the shape, size, and functioning of your esophagus. ??? Allergy tests. How is this treated? Treatment for this condition depends on the cause of your esophagitis. In some cases, steroids or other medicines may be given to help relieve your symptoms or to treat the underlying cause of your condition. You may have to make some lifestyle changes, such as: ??? Avoiding alcohol. ??? Quitting any products that contain nicotine or tobacco. These products include cigarettes, chewing tobacco, and vaping devices, such as e-cigarettes. If you need help quitting, ask your health care provider. ??? Changing your diet. ??? Exercising. ??? Changing your sleep habits and your sleep environment. Follow these instructions at home: Medicines ??? Take hdvd-uyr-ejswxth and prescription medicines only as told by your health care provider. ??? Do not take aspirin, ibuprofen, or other NSAIDs unless your health care provider told you to do so. ??? If you have trouble taking pills: ? Use a pill splitter to decrease the size of the pill. This will decrease the chance of the pill getting stuck or injuring your esophagus. ? Drink water after you take a pill. Eating and drinking ??? Avoid foods and drinks that seem to make your symptoms worse. ??? Follow a diet as recommended by your health care provider. This may involve avoiding foods and drinks such as: ? Coffee and tea, with or without caffeine. ? Drinks that contain alcohol. ? Energy drinks and sports drinks. ? Carbonated drinks or sodas. ? Chocolate and cocoa. ? Peppermint and mint flavorings. ? Garlic and onions. ? Horseradish. ? Spicy and acidic foods, including peppers, chili powder, soriano powder, vinegar, hot sauces, and barbecue sauce. ? Anon Raices fruit juices and citrus fruits, such as oranges, karl, and limes. ? Tomato-based foods, such as red sauce, chili, salsa, and pizza with red sauce. ? Fried and fatty foods, such as donuts, paraguayan fries, potato chips, and high- fat dressings. ? High-fat meats, such as hot dogs and fatty cuts of red and white meats, such as rib eye steak, sausage, ham, and jasso. ? High-fat dairy items, such as whole milk, butter, and cream cheese. Lifestyle ??? Eat small, frequent meals instead of large meals. ??? Avoid drinking large amounts of liquid with your meals. ??? Avoid eating meals during the 2?3 hours before bedtime. ??? Avoid lying down right after you eat. ??? Do not exercise right after you eat. ??? Do not use any products that contain nicotine or tobacco. These products include cigarettes, chewing tobacco, and vaping devices, such as e-cigarettes. If you need help quitting, ask your health care provider. General instructions ??? Pay attention to any changes in your symptoms. Let your health care provider know about them. ??? Wear loose-fitting clothing. Do not wear anything tight around your waist that causes pressure on your abdomen. ??? Raise (elevate) the head of your bed about 6 inches (15 cm). You may need to use a wedge to do this. ??? Try relaxation strategies such as yoga, deep breathing, or meditation to manage stress. If you need help reducing stress, ask your health care provider. ??? If you are overweight, reduce your weight to an amount that is healthy for you. Ask your health care provider for guidance about a safe weight loss goal. ??? Keep all follow-up visits. This is important. Contact a health care provider if: ??? You have new symptoms. ??? You have unexplained weight loss. ??? You have difficulty swallowing, or it hurts to swallow. ??? You have wheezing or a cough that does not go away. ??? Your symptoms do not improve with treatment. ??? You have frequent heartburn for more than two weeks. Get help right away if: ??? You have sudden severe pain in your arms, neck, jaw, teeth, or back. ??? You suddenly feel sweaty, dizzy, or light-headed. ??? You have chest pain or shortness of breath. ??? You vomit and the vomit is green, yellow, or black, or it looks like blood or coffee grounds. ??? Your stool is red, bloody, or black. ??? You have a fever. ??? You cannot swallow, drink, or eat. These symptoms may represent a serious problem that is an emergency. Do not wait to see if the symptoms will go away. Get medical help right away. Call your local emergency services (911 in the [place] Do not drive yourself to the hospital. Summary ??? Esophagitis is inflammation of the esophagus. ??? Most causes of esophagitis are not serious. ??? Follow your health care provider's instructions about eating and drinking. ??? Contact a health care provider if you have new symptoms, have weight loss, or coughing that does not stop. ??? Get help right away if you have severe pain in the arms, neck, jaw, teeth, or back, or if you have chest pain, shortness of breath, or fever. This information is not intended to replace advice given to you by your health care provider. Make sure you discuss any questions you have with your health care provider. Document Revised: 12/23/2020 Document Reviewed: 12/23/2020 [email or web address] Patient Education ? 2023 [employer].Hiatal Hernia A hiatal hernia occurs when part of the stomach slides above the muscle that separates the abdomen from the chest (diaphragm). A person can be born with a hiatal hernia (congenital), or it may develop over time. In almost all cases of hiatal hernia, only the top part of the stomach pushes through the diaphragm. Many people have a hiatal hernia with no symptoms. The larger the hernia, the more likely it is that you will have symptoms. In some cases, a hiatal hernia allows stomach acid to flow back into the tube that carries food from your mouth to your stomach (esophagus). This may cause heartburn symptoms. The development of heartburn symptoms may mean that you have a condition called gastroesophageal reflux disease (GERD). What are the causes? This condition is caused by a weakness in the opening (hiatus) where the esophagus passes through the diaphragm to attach to the upper part of the stomach. A person may be born with a weakness in the hiatus, or a weakness can develop over time. What increases the risk? This condition is more likely to develop in: ??? Older people. Age is a major risk factor for a hiatal hernia, especially if you are over the age of 50. ??? women. ??? People who are overweight. ??? People who have frequent constipation. What are the signs or symptoms? Symptoms of this condition usually develop in the form of GERD symptoms. Symptoms include: ??? Heartburn. ??? Upset stomach (indigestion). ??? Trouble swallowing. ??? Coughing or wheezing. Wheezing is making high-pitched whistling sounds when you breathe. ??? Sore throat. ??? Chest pain. ??? Nausea and vomiting. How is this diagnosed? This condition may be diagnosed during testing for GERD. Tests that may be done include: ??? X-rays of your stomach or chest. ??? An upper gastrointestinal (GI) series. This is an X-ray exam of your GI tract that is taken after you swallow a chalky liquid that shows up clearly on the X- ray. ??? Endoscopy. This is a procedure to look into your stomach using a thin, flexible tube that has a tiny camera and light on the end of it. How is this treated? This condition may be treated by: ??? Dietary and lifestyle changes to help reduce GERD symptoms. ??? Medicines. These may include: ? Nxer-cty-cbmqmjp antacids. ? Medicines that make your stomach empty more quickly. ? Medicines that block the production of stomach acid (H2 blockers). ? Stronger medicines to reduce stomach acid (proton pump inhibitors). ??? Surgery to repair the hernia, if other treatments are not helping. If you have no symptoms, you may not need treatment. Follow these instructions at home: Lifestyle and activity ??? Do not use any products that contain nicotine or tobacco. These products include cigarettes, chewing tobacco, and vaping devices, such as e-cigarettes. If you need help quitting, ask your health care provider. ??? Try to achieve and maintain a healthy body weight. ??? Avoid putting pressure on your abdomen. Anything that puts pressure on your abdomen increases the amount of acid that may be pushed up into your esophagus. ? Avoid bending over, especially after eating. ? Raise the head of your bed by putting blocks under the legs. This keeps your head and esophagus higher than your stomach. ? Do not wear tight clothing around your chest or stomach. ? Try not to strain when having a bowel movement, when urinating, or when lifting heavy objects. Eating and drinking ??? Avoid foods that can worsen GERD symptoms. These may include: ? Fatty foods, like fried foods. ? Anon Raices fruits, like oranges or lemon. ? Other foods and drinks that contain acid, like orange juice or tomatoes. ? Spicy food. ? Chocolate. ??? Eat frequent small meals instead of three large meals a day. This helps prevent your stomach from getting too full. ? Eat slowly. ? Do not lie down right after eating. ? Do not eat 1?2 hours before bed. ??? Do not drink beverages with caffeine. These include cola, coffee, cocoa, and tea. ??? Do not drink alcohol. General instructions ??? Take eikc-fch-zygeywh and prescription medicines only as told by your health care provider. ??? Keep all follow-up visits. Your health care provider will want to check that any new prescribed medicines are helping your symptoms. Contact a health care provider if: ??? Your symptoms are not controlled with medicines or lifestyle changes. ??? You are having trouble swallowing. ??? You have coughing or wheezing that will not go away. ??? Your pain is getting worse. ??? Your pain spreads to your arms, neck, jaw, teeth, or back. ??? You feel nauseous or you vomit. Get help right away if: ??? You have shortness of breath. ??? You vomit blood. ??? You have bright red blood in your stools. ??? You have black, tarry stools. These symptoms may be an emergency. Get help right away. Call 911. ??? Do not wait to see if the symptoms will go away. ??? Do not drive yourself to the hospital. Summary ??? A hiatal hernia occurs when part of the stomach slides above the muscle that separates the abdomen from the chest. ??? A person may be born with a weakness in the hiatus, or a weakness can develop over time. ??? Symptoms of a hiatal hernia may include heartburn, trouble swallowing, or sore throat. ??? Management of a hiatal hernia includes eating frequent small meals instead of three large meals a day. ??? Get help right away if you vomit blood, have bright red blood in your stools, or have black, tarry stools. This information is not intended to replace advice given to you by your health care provider. Make sure you discuss any questions you have with your health care provider. Document Revised: 08/11/2022 Document Reviewed: 08/11/2022 [email or web address] Patient Education ? 2023 [employer].Infectious Disease Gastritis, Adult Gastritis is irritation and swelling (inflammation) of the stomach. There are two kinds of gastritis: ??? Acute gastritis. This kind develops quickly. ??? Chronic gastritis. This kind is much more common. It develops slowly and lasts for a long time. It is important to get help for this condition. If you do not get help, your stomach can bleed, and you can get sores (ulcers) in your stomach. What are the causes? This condition may be caused by: ??? Germs that get to your stomach and cause an infection. ??? Drinking too much alcohol. ??? Medicines you are taking. ??? Having too much acid in the stomach. ??? Having a disease of the stomach. Other causes may include: ??? An allergic reaction. ??? Some cancer treatments (radiation). ??? Smoking cigarettes or using products that contain nicotine or tobacco. In some cases, the cause of this condition is not known. What increases the risk? Having a disease of the intestines. ??? Having Crohn's disease. ??? Using aspirin or ibuprofen and other NSAIDs to treat other conditions. ??? Stress. What are the signs or symptoms? Pain in your stomach. ??? A burning feeling in your stomach. ??? Feeling like you may vomit (nauseous). ??? Vomiting or vomiting blood. ??? Feeling too full after you eat. ??? Weight loss. ??? Bad breath. ??? Blood in your poop (stool). In some cases, there are no symptoms. How is this treated? This condition is treated with medicines. The medicines that are used depend on what caused the condition. You may be given: ??? Antibiotic medicine, if your condition was caused by an infection from germs. ??? H2 blockers and similar medicines, if your condition was caused by too much acid in the stomach. Treatment may also include stopping the use of certain medicines, such as aspirin or ibuprofen. Follow these instructions at home: Medicines ??? Take ggfh-aje-vxikcrt and prescription medicines only as told by your doctor. ??? If you were prescribed an antibiotic medicine, take it as told by your doctor. Do not stop taking it even if you start to feel better. Alcohol use ??? Do not drink alcohol if: ? Your doctor tells you not to drink. ? You are , may be , or are planning to become . ??? If you drink alcohol: ? Limit your use to: ? 0?1 drink a day for women. ? 0?2 drinks a day for men. ? Know how much alcohol is in your drink. In the [place] one drink equals one 12 oz bottle of beer (355 mL), one 5 oz glass of wine (148 mL), or one 1? oz glass of hard liquor (44 mL). General instructions ??? Eat small meals often, instead of large meals. ??? Avoid foods and drinks that make you feel worse. ??? Drink enough fluid to keep your pee (urine) pale yellow. ??? Talk with your doctor about ways to manage stress. You can exercise or do deep breathing, meditation, or yoga. ??? Do not smoke or use any products that contain nicotine or tobacco. If you need help quitting, ask your doctor. ??? Keep all follow-up visits. Contact a doctor if: ??? Your symptoms get worse. ??? Your stomach pain gets worse. ??? Your symptoms go away and then come back. ??? You have a fever. Get help right away if: ??? You vomit blood or something that looks like coffee grounds. ??? You have black or dark red poop. ??? You throw up any time you try to drink fluids. These symptoms may be an emergency. Get help right away. Call your local emergency services (911 in the [place] ??? Do not wait to see if the symptoms will go away. ??? Do not drive yourself to the hospital. Summary ??? Gastritis is irritation and swelling (inflammation) of the stomach. ??? You must get help for this condition. If you do not get help, your stomach can bleed, and you can get sores (ulcers) in your stomach. ??? You can be treated with medicines for germs or medicines to block too much acid in your stomach. This information is not intended to replace advice given to you by your health care provider. Make sure you discuss any questions you have with your health care provider. Document Revised: 10/18/2021 Document Reviewed: 10/18/2021 [email or web address] Patient Education ? 2023 [employer]. OPERATIVE REPORT Observed: 10/16/2024 9:55 AM Status: F Source: [facility] Operative Report Patient: ANDREIA THOMAS Age: 59 years Sex: Female : 1965 Associated Diagnoses: None Author: Roseline Melendrez MD Pre-Procedure Procedure Date 10/16/2024 09:56:00 . Procedure Type: Esophagogastroduodenoscopy with biopsy. Procedure provider Performed by Roseline Melendrez MD. Current history and physical Documented on chart. Informed Consent After discussing the rationale, risks and benefits, and alternatives to this procedure, the patient provided signed consent for the procedure. Pre-procedure diagnosis: anemia. Medications (Selected) Inpatient Medications Ordered Sodium Chloride 0.9% IV Cheri 1000 mL 1,000 mL: 1,000 mL, IV, 20 mL/hr, Routine, Start date 10/16/24 6:38:00 EDT, 50 hour(s), Total volume (mL): 1,000, 68.5 kg, 1.73, m2 Prescriptions Prescribed Carafate 1 gram Tab: 1 gm = 1 tab(s), Oral, QID, # 120 tab(s), Refills(s) 4, [id number], 158, cm, 06/02/24 9:26:00 EST, Height/Length Dosing, 72.6, kg, 06/02/24 9:26:00 EST, Weight Dosing pantoprazole 40 mg Oral EC Tab: 40 mg = 1 tab(s), Oral, Daily, # 30 tab(s), Refills(s) 3, Pharmacy: [id number], 154, cm, 04/14/22 12:07:00 EDT, Height/Length Dosing, 74, kg, 04/14/22 12:07:00 EDT, Weight Dosing Documented Medications Documented Amaryl 4 mg Tab: 4 mg = 1 tab(s), Oral, Daily, Refills(s) 0, Blood glucose Celexa: 20 mg, Oral, Daily, Other (see comment) Crestor: 5 mg, Oral, Once a day (at bedtime), High cholesterol Cytomel 5 mcg Tab: mcg tab(s), Oral, Daily, Refills(s) 0, Thyroid Klonopin: 2 mg, Oral, TID, Other (see comment) Semglee: SubCutaneous, Daily, Refills(s) 0 Synthroid: 125 microgram, Oral, Daily, Thyroid Anticoagulant/antiplatelet None. ASA Classification: Class II. . Monitoring: See anesthesia record. . Procedure The procedure was performed in the hospital. See anesthesia record for sedation given during procedure. The patient was positioned starting in the left lateral decubitus position and with safety measures. Endoscope type used was an adult-size, introduced orally, advanced to the 3rd portion of the duodenum. No difficulty was encountered during the procedure. Views were excellent. The patient tolerated the procedure well. Findings 1. Normal esophagus. Small hernia. Mild reflux apicitis 2. Erythema in the antrum, patchy with erosions. Biopsies of the stomach were taken to rule out H. pylori. 3. 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 Biopsies obtained Images Procedure images: Rec_hd_video____[id number].jpg Rec_hd_video 572.jpg Rec_hd_video____[id number].jpg Rec_hd_video____[id number].jpg Rec1_hd_video__[id number].jpg Rec1_hd_video____[id number].jpg Rec1_hd_video__[id number].jpg Rec1_hd_video_2024__[id number].jpg Rec1_hd_video__09__[id number].jpg . Post-Procedure Complications: none. Estimated blood loss: minimal. Specimens: sent to pathology. Devices/ implants: none left in place. Impression and Plan hiatal hernia Reflux esophagitis Gastropathy Lymph ectasia of the duodenum Recommendations: -Resume previous diet -Resume home medications -Await pathology results, follow in GI clinic in 1-2 after discharge Result Comment: Electronical ly Signed By: Parvin LAND, Roseline Cook.br\Date and Time Signed: 10/16/24 09:57 EDT Other Comment: Missing Attac hment - attachment storage system not supported [id number] Can be viewed in source system Missing Attachment - attachment storage system not supported [id number] Can be viewed in source systemMissing Attachment - attachment storage system not supported [id number] Can be viewed in source systemMissing Attachment - attachment storage system not supported [id number] Can be viewed in source systemMissing Attachment - attachment storage system not supported [id number] Can be viewed in source systemMissing Attachment - attachment storage system not supported [id number] Can be viewed in source systemMissing Attachment - attachment storage system not supported [id number] Can be viewed in source systemMissing Attachment - attachment storage system not supported [id number] Can be viewed in source systemMissing Attachment - attachment storage system not supported [id number] Can be viewed in source system SURGICAL PATHOLOGY REPORT Observed: 09/27 9:51 AM Status: F Source: [facility] [place] [address]- Surgical Pathology Report Collected Date/Time: 10/16/2024 09:51 EDT Pathologist: Pepito Rueda MD Received Date/Time: 10/16/2024 10:39 EDT Roseline Melendrez MD, MD, Mohamad A. 07 Surgical Pathology Report - 10/20/2024 13:12 EDT - Auth (Verified) Final Diagnosis A: STOMACH, BIOPSY: MILD CHRONIC GASTRITIS; REACTIVE GASTROPATHY - CAN NOT EXCLUDE RARE FOCAL EARLY INTESTINAL METAPLASIA - SPECIAL IHC STAIN FOR H. pylori: NEGATIVE B: DUODENUM, BIOPSY: NORMAL TO MILD VILLOUS BLUNDED VILLOUS INTESTINAL MUCOSA; - QUANTITATIVELY LIMITED SPECIMEN (Electronic Signature) Pepito Rueda MD 10/20/2024 13:12 Clinical Information Epigastric pain, anemia Pre-Op Diagnosis: Epigastric pain, anemia Procedure: EGD Post-Op Diagnosis: 1. Hiatal hernia 2. Reflux esophagitis 3. Gastropathy 4. Lymphectasia of the duodenum Specimen(s) Received A.Gastric biopsy B.Duodenal biopsy Gross Description A: Received in formalin labeled with patient name, number, and gastric biopsy are multiple fragments of ortiz/pink tissue ranging from less than 0.1 cm up to 0.4 cm in greatest dimension. Specimen is entirely submitted in one cassette. B: Received in formalin labeled with patient name, number, and duodenal biopsy are two fragments of ortiz/pink tissue measuring 0.1 and 0.3 cm. Specimen is entirely submitted in one cassette. (DC) DC:MCA Microscopic Description Microscopic examination performed unless gross only specified. This report was transcribed using voice recognition technology and might contain unintended computerized pick pulling machine operator errors.The use of one or more reagents in the above tests is regulated as an analyte specific reagent (ASR). The test or tests are ordered following initial H&E microscopic examination. The performance characteristics were determined by the [facility] Surgical Pathology. They have not been cleared or approved by the US Food and Drug Administration. The FDA has determined that such clearance or approval is not necessary. These tests are used for clinical Surgical Pathology Report Collected Date/Time: 10/16/2024 09:51 EDT Pathologist: Pepito Rueda MD Received Date/Time: 10/16/2024 10:39 EDT Mouchli MD, Roseline Melendrez MD, Roseline Chase Microscopic Description purposes. They should not be regarded as investigational or for research. Appropriate positive and negative controls are performed and are acceptable. This report was transcribed using voice recognition technology and might contain unintended computerized pick pulling machine operator errors. Performed By: #### [id number] # ### [facility] [address] [place] [address] SURGICAL PATHOLOGY REPORT Observed: 09/27 9:51 AM Status: F Source: [facility] [address] [facility] [place] [address]- Surgical Pathology Report Collected Date/Time: 10/16/2024 09:51 EDT Pathologist: Pepito Rueda MD Received Date/Time: 10/16/2024 10:39 EDT Parvin LAND, Roseline Melendrez MD, Roseline Cahse 07 Surgical Pathology Report - 10/20/2024 13:12 EDT - Auth (Verified) Final Diagnosis A: STOMACH, BIOPSY: MILD CHRONIC GASTRITIS; REACTIVE GASTROPATHY - CAN NOT EXCLUDE RARE FOCAL EARLY INTESTINAL METAPLASIA - SPECIAL IHC STAIN FOR H. pylori: NEGATIVE B: DUODENUM, BIOPSY: NORMAL TO MILD VILLOUS BLUNDED VILLOUS INTESTINAL MUCOSA; - QUANTITATIVELY LIMITED SPECIMEN (Electronic Signature) Pepito Rueda MD 10/20/2024 13:12 Clinical Information Epigastric pain, anemia Pre-Op Diagnosis: Epigastric pain, anemia Procedure: EGD Post-Op Diagnosis: 1. Hiatal hernia 2. Reflux esophagitis 3. Gastropathy 4. Lymphectasia of the duodenum Specimen(s) Received A.Gastric biopsy B.Duodenal biopsy Gross Description A: Received in formalin labeled with patient name, number, and gastric biopsy are multiple fragments of ortiz/pink tissue ranging from less than 0.1 cm up to 0.4 cm in greatest dimension. Specimen is entirely submitted in one cassette. B: Received in formalin labeled with patient name, number, and duodenal biopsy are two fragments of ortiz/pink tissue measuring 0.1 and 0.3 cm. Specimen is entirely submitted in one cassette. (DC) DC:MCA Microscopic Description Microscopic examination performed unless gross only specified. This report was transcribed using voice recognition technology and might contain unintended computerized pick pulling machine operator errors.The use of one or more reagents in the above tests is regulated as an analyte specific reagent (ASR). The test or tests are ordered following initial H&E microscopic examination. The performance characteristics were determined by the [facility] Surgical Pathology. They have not been cleared or approved by the [place] Food and Drug Administration. The FDA has determined that such clearance or approval is not necessary. These tests are used for clinical Surgical Pathology Report Collected Date/Time: 10/16/2024 09:51 EDT Pathologist: Pepito Rueda MD Date/Time: 10/16/2024 10:39 EDT Roseline Melendrez MD, MD, Mohamad A. Microscopic Description purposes. They should not be regarded as investigational or for research. Appropriate positive and negative controls are performed and are acceptable. This report was transcribed using voice recognition technology and might contain unintended computerized pick pulling machine operator errors. Performed By: #### [id number] # ### [facility] [address] [place] [address] MAIN OR PACU II RECORD Observed: 025 9:49 AM Status: F Source: [facility] Main OR PACU II Record PACU Phase II Document Type FT Summary Primary Physician: Roseline Melendrez MD Finalized Date/Time: 10/16/24 10:29:38 Pt. Name: ANDREIA THOMAS/Sex: 1965 Female Med Rec #: [id number] Physician: Roseline Melendrez MD Financial #: [id number] Pt. Type: O Room/Bed: / Admit/Disch: 10/16/24 08:00:41 - Institution: Case Times PACU II FT Pre-Care Text: Identifies barriers to communication and implements measures to provide psychological support and determines knowledge level Develops individualized plan of care, and ensures continuity of care Maintains patient's dignity and privacy, and maintains patient confidentiality Identifies and reports philosophical, cultural, and spiritual beliefs and values Identifies individual values and wishes concerning care administers prescribed antibiotic therapy and immunizing agents as ordered, Evaluates postoperative tissue perfusion Implements thermoregulation measures, and monitors body temperature Evaluates postoperative respiratory status Evaluates postoperative cardiac status Evaluates postoperative neurological status Assesses pain control, collaborated in initiating patient-controlled analgesia and implements alternative methods of pain control Verifies allergies, administers prescribed medications and solutions, evaluates response to medications Entry 1 In PACU II 10/16/24 10:00:00 Discharge from PACU 10/16/24 10:25:00 II Outcomes Met? Yes Last Modified By: Guerita Jones I 10/16/24 10:29:34 Post-Care Text: The patient demonstrates knowledge of the expected response to the operative or invasive procedure The patient's care is consistent with the individualized perioperative plan of care The patient's right to privacy is maintained The patient's value system, lifestyle, ethnicity, and culture are considered, respected, and incorporated into the perioperative plan of care The patient participates in decisions affecting his or her perioperative plan of care. The patient is free from signs and symptoms of infection The patient has wound/tissue perfusion consistent with or improved from baseline levels established preoperatively The patient is at or returning to normothermia at the conclusion of the immediate postoperative period The patient's respiratory function is consistent with or improved from baseline levels established preoperatively The patient's cardiovascular status is consistent with or improved from baseline levels established preoperatively The patient's neurological status is consistent with or improved from baseline levels established preoperatively The patient demonstrates and/or reports adequate pain control throughout the perioperative period The patient received appropriate medication(s), safely administered during the perioperative period Finalized By: Guerita Jones I Document Signatures Signed By: Guerita Jones I 10/16/24 10:29 MAIN OR INTRAOPERATIVE RECORD Observed: 10/16/2024 9:49 AM Status: C Source: [facility] Main OR Intraoperative Recor d IntraOp Document Type FT Summary Primary Physician: Roseline Melendrez MD Finalized Date/Time: 10/17/24 10:13:23 Pt. Name: ANDREIA THOMAS/Sex: 1965 Female Med Rec #: [id number] Physician: Roseline Melendrez MD Financial #: [id number] Pt. Type: O Room/Bed: / Admit/Disch: 10/16/24 08:00:41 - 10/16/24 23:59:59 Institution: Case Times FT Entry 1 Patient Times In Room 10/16/24 09:44:00 Out Room 10/16/24 09:57:00 Procedure Times Start 10/16/24 09:49:00 Stop 10/16/24 09:54:00 Anesthesia Times Start 10/16/24 09:44:00 Stop 10/16/24 09:57:00 Last Modified By: Martha VIZCAINO, Cassy 10/16/24 09:57:35 Case Attendance FT Entry 1 Entry 2 Entry 3 Case Attendee Chasity DNP, ETCH OPERATOR [employer] WAFERS, Queen Martha VIZCAINO, Sissy Browning Role Performed ETCH OPERATOR [employer] Supplier Quality Engineer - Primary Staff - Other Time In 10/16/24 09:44:00 10/16/24 09:44:00 10/16/24 09:44:00 Time Out 10/16/24 09:57:00 10/16/24 09:57:00 10/16/24 09:57:00 Procedure EGD(.) EGD(.) EGD(.) Comments Dr. Cheng supervising help in room Last Modified By: Martha RN, Cassy Thomas RN, Cassy Thomas RN, Cassy 10/16/24 09:57:36 10/16/24 09:57:36 10/16/24 09:57:36 Entry 4 Entry 5 Case Attendee Marty FLOOD, Pretty Melendrez MD, Roseline Nieto Role Performed Scrub - Primary Surgeon - Primary Time In 10/16/24 09:44:00 10/16/24 09:44:00 Time Out 10/16/24 09:57:00 10/16/24 09:57:00 Procedure EGD(.) EGD(.) Comments Last Modified By: Martha VIZCAINO, Cassy Thomas RN, Cassy 10/16/24 09:57:36 10/16/24 09:57:36 Perioperative Protocols FT Pre-Care Text: Implements protective measures prior to operative or invasive procedure, confirms identity before the operative or invasive procedure, verifies operative procedure, surgical site, and laterality Entry 1 Procedure(s) EGD(.) Patient Identity Birthday, ID Band Verified (select at Check, Patient least 2): Participation Consents / H and P Anesthesia Consent, Operative Site N/A Verified H&P, Surgery/Procedure Marking Verified Consent Surgical Site No Laterality Verified n/a Verified Procedure Verified Yes Correct Patient Yes Position Verified Availability Equipment, Medication Prep Dry n/a Verified (If Applicable) PreOp Antibiotic No Time Out Chasity HARMON, ETCH OPERATOR [employer] WAFERS, Queen Lyssa Harley NRomana, Cassy Thomas RN, Miles, Kirstyn K, Marty DIET ATTENDANT, Parvin Tanner MD, Roseline Chase Time Out Complete 10/16/24 09:47:00 Outcomes Met? Yes Last Modified By: Cassy Thomas RN 10/16/24 09:48:22 Post-Care Text: The patient is free from signs and symptoms of injury caused by extraneous objects Allergy Information FT Pre-Care Text: Verifies allergies Entry 1 Allergies Reviewed? Yes Allergies Reviewed Self/Patient With Outcomes Met? Yes Last Modified By: Cassy Thomas RN 10/16/24 09:48:31 Post-Care Text: The patient received appropriate medication(s) safely administered during the perioperative period Surgical Procedures FT Entry 1 Procedure Description Procedure EGD Modifiers . Surgeon Description EGD with duodenal and gastric biopsies Primary Procedure Yes Primary Surgeon Parvin LAND, Roseline Chase Start 10/16/24 09:49:00 Stop 10/16/24 09:54:00 Anesthesia Type General Surgical Service Gastroenterology Wound Class 2 - Clean-Contaminated Last Modified By: Cassy Thomas RN 10/16/24 09:55:45 General Case Data FT Pre-Care Text: Classifies surgical wound, implements aseptic technique, initiates traffic control Entry 1 Case Information OR ENDO 1 FT Case Level Level 2 Wound Class 2 - Clean-Contaminated Specialty Gastroenterology ASA Class 3 Preop Diagnosis Epigastric pain, anemia Postop Same As Preop No Postop Diagnosis Erosive Outcomes Met? Yes gastropathy,lymphangiect tamiko, hiatal hernia, reflux esophagitis Last Modified By: Cassy Thomas RN 10/16/24 09:57:32 Post-Care Text: The patient is free from signs and symptoms of infection Skin Assessment (Pre Procedure) FT Pre-Care Text: Implements protective measures to prevent skin/ tissue injury due to thermal or mechanical sources Evaluates for signs and symptoms of physical injury to skin and tissue Entry 1 Skin Integrity Intact, Marquez, Warm, & Skin Abnormality No Dry Outcomes Met? Yes Last Modified By: Cassy Thomas RN 10/16/24 09:49:23 Post-Care Text: The patient is free from signs and symptoms of injury caused by extraneous objects Patient Positioning FT Pre-Care Text: Identifies physical alterations that require additional precautions for procedure-specific positioning, verifies presence of prosthetics or corrective devices, positions the patient, evaluates the patient for signs and symptoms of injury as a result of positioning Entry 1 Procedure EGD(.) Body Position Lateral, right side up Feet Uncrossed? Yes Left Arm Position Resting at Side Right Arm Position Resting at Side Left Leg Position Extended Right Leg Position Extended Positioning Device Safety Strap, Pillow Under Head Large Press Points Checked Yes By Cassy Thomas RN Outcomes Met? Yes Last Modified By: Cassy Thomas RN 10/16/24 09:49:31 Post-Care Text: The patient is free from signs and symptoms of injury related to positioning Patient Care Devices FT Pre-Care Text: Implements protective measures to prevent skin/ tissue injury due to thermal or mechanical sources Entry 1 Entry 2 Equipment Type ENDOSCOPY VIDEO SYSTEM MONITOR CHARGE SURGERY Equipment Number [id number] [id number] Equipment Setting Outcomes Met? Yes Yes Last Modified By: Cassy Thomas RN, RN, Angela 10/16/24 09:49:51 10/16/24 09:49:51 Post-Care Text: The patient is free from signs and symptoms of injury caused by extraneous objects Transport To OR Pre-Care Text: Transports according to individual needs. Evaluates for signs and symptoms of skin and tissue injury as a result of transfer or transport Entry 1 Via Cart By Cassy Thomas RN Safety Precautions Side Rails Up Outcomes Met? Yes Last Modified By: Cassy Thomas RN 10/16/24 09:49:57 Post-Care Text: The patient is free from signs and symptoms of injury related to transfer/transport Departure From OR Pre-Care Text: Transports according to individual needs. Evaluates for signs and symptoms of skin and tissue injury as a result of transfer or transport. Entry 1 Via Cart Safety Precautions Side Rails Up PostOp Destination PACU Transported By Cassy Thomas RN Patient Status Stable Skin. Condition Intact, Marquez, Warm, & Dry Airway Maintenance Oxygen in Use? No Airway Device N/A Outcomes Met? Yes Last Modified By: Cassy Thomas RN 10/16/24 09:50:15 Post-Care Text: The patient is free from signs and symptoms of injury related to transfer/transport General Comments: Report given to NETWORK ANALYST/AW salesperson men's furnishings Administration FT Pre-Care Text: Verifies allergies, administers prescribed medications and solutions, administers prescribed antibiotic therapy and immunizing agents as ordered, evaluates response to medications Administers prescribed medications and solutions Entry 1 Expiration Date Yes Outcomes Met? Yes Verified Last Modified By: Cassy Thomas RN 10/16/24 09:50:21 Post-Care Text: The patient received appropriate medication(s) safely administered during the perioperative period For [facility] please see scanned medication reconcilliation form for medications used at the field during the procedure. Cultures & Specimens FT Pre-Care Text: Manages specimen handling and disposition Manages culture specimen collection Entry 1 Cultures Ordered n/a Specimens Ordered Yes Specimen Disposition Designated OR Area Frozen Section Times Outcomes Met? Yes Last Modified By: Cassy Thomas RN 10/16/24 09:50:28 Post-Care Text: The patient is free from signs and symptoms of injury caused by extraneous objects The patient is free from signs and symptoms of infection Sign Out FT Entry 1 Before Patient Leaves OR Nurse verbally Yes Nurse verbally n/a confirms with the confirms with the team the name of team that the procedure(s) instrument, sponge, recorded and needle counts are correct (or N/A) Nurse verbally Yes Nurse verbally Yes confirms with the confirms with the team how the team whether there specimen is labeled are any equipment (including patient problems to be name), if applicable addressed Sign Out Complete 10/16/24 09:54:00 Last Modified By: Cassy Thomas RN 10/16/24 09:55:50 Case Comments <None> Finalized By: Mery VIZCAINO, Ashley WILSON Document Signatures Signed By: Cassy Thomas RN 10/16/24 09:58 KATIE Ordonez RN, Melinda 10/17/24 10:13 Unfinalized History Date/Time Username Reason for Unfinalizing Freetext Reason for Unfinalizing 10/17/24 10:10 [id number] Other - See Nurses Notes Opened for charge review. H&P UPDATE Observed: 10/16/2024 9:46 AM Status: F Source: [facility] H&P Update Patient: ANDREIA THOMAS Age: 59 years Sex: Female : 1965 Associated Diagnoses: None Author: Roseline Melendrez MD Preoperative Information Chief compliant/Indication for procedure: Epigastric pain and anemia Chief Complaint as above Review of Systems All systems reviewed, negative except as mentioned above Physical Examination Vital Signs (last 24 hrs) Last Charted Temp Temporal L 36 DegC (OCT 16 08:13) Heart Rate Monitored 81 bpm (OCT 16 08:13) SBP 111 mmHg (OCT 16 08:) DBP 76 mmHg (OCT 16 08:13) Weight 68.5 kg (OCT 16 08:08) General: in Nad Abdomen: Soft, NTND Impression and Plan Diagnosis: Epigastric pain and anemia -EGD MAIN OR PREOPERATIVE RECORD Observed: 9:00 AM Status: F Source: [facility] Main OR Preoperative Record Holding Area Document Type FT Summary Primary Physician: Roseline Melendrez MD Finalized Date/Time: 10/16/24 08:12:24 Pt. Name: TERRANCESALOMEANDREIA/Sex: 1965 Female Med Rec #: [id number] Physician: Roseline Melendrez MD Financial #: [id number] Pt. Type: O Room/Bed: / Admit/Disch: 10/16/24 08:00:41 - Institution: Case Times Holding FT Pre-Care Text: Verifies consent for planned procedure, identifies individual values and wishes concerning care, includes family members in perioperative teaching Secures patient's records' belongings, and valuables, maintains patient's dignity and privacy, and maintains patient confidentiality Entry 1 In Holding 10/16/24 08:04:00 Outcomes Met? Yes Last Modified By: Macie Sorto RN 10/16/24 08:08:33 Post-Care Text: The patient participates in decisions affecting his or her perioperative plan of care The patient's right to privacy is maintained Surgery Checklist FT Entry 1 Patient Birthday, ID Band Procedure History and Physical, Identification: Check, Patient Verification: Surgical Consent, With Participation Patient NPO after Midnight: Yes Results Reviewed n/a Comments: Personal Items: Cataract Lens Implant, Personal Items Glassess, dentures, Dentures, Glasses Comment: left foot metal, bilat IOL Limitations: Vision Complaints of Pain: Yes Pain Comment: Abd 01/04 Operative Site n/a Marking: Availability Equipment Verified: Does Patient Smoke Yes If Yes to Smoking. 1ppd Cigars or Cigarettes. How much per day? Patient states Yes Comment - Adult Spouse postop adult Supervision supervision available Case Cancelled in No Holding Area see comments below for reason Last Modified By: Macie Sorto RN 10/16/24 08:12:19 Finalized By: Macie Sorto RN Document Signatures Signed By: Macie Sorto RN 10/16/24 08:12 DISCHARGE INSTRUCTIONS Observed: 025 8:00 AM Status: F Source: [facility] Discharge Instructions TERRANCESALOMEANDREIA :1965 Visit Date:10/16/2024 Inpatient Discharge Instructions Your Care Team Admitting Physician - Roseline Melendrez MD Referring Physician - Roseline Melendrez MD Reason for Your Visit ABDOMINAL PAIN, NAUSEA, EPIGASTRIC PAIN, EARLY SATIETY Your Diagnosis Erosive gastropathy Hernia, hiatal Tests Performed Pathology Tissue Exam -- Results Pending -- Please visit your patient portal for your results or contact your primary care physician. This Is Your Medications List citalopram (Celexa) clonazepam (Klonopin) glimepiride (Amaryl 4 mg Tab) insulin glargine (Semglee) levothyroxine (Synthroid) liothyronine (Cytomel 5 mcg Tab) pantoprazole (pantoprazole 40 mg Oral EC Tab) rosuvastatin (Crestor) sucralfate (Carafate 1 gram Tab) What to do next Instructions From Your Doctor No qualifying data available. Previously Scheduled Follow-Up Appointments Wednesday 9:00 AM EDT With: Where: [facility] Wednesday 12:45 PM EDT With: Roselnie Melendrez MD Where: [facility] [address] [place] [address] [place] [phone]- Medications What How Much When Why Instructions Next Dose Unchanged citalopram (Celexa) 20 Milligram By Mouth Every day Unchanged clonazepam (Klonopin) 2 Milligram By Mouth 3 times a day Unchanged glimepiride (Amaryl 4 mg Tab) 1 Tablets By Mouth Every day Unchanged insulin glargine (Semglee) Subcutaneous Every day Unchanged levothyroxine (Synthroid) 125 Microgram By Mouth Every day Unchanged liothyronine (Cytomel 5 mcg Tab) By Mouth Every day Unchanged pantoprazole (pantoprazole 40 mg Oral EC Tab) 1 Tablets By Mouth Every day Acute epigastric pain Nausea Abdominal pain Heartburn Unchanged rosuvastatin (Crestor) 5 Milligram By Mouth Once a day (at bedtime) Unchanged sucralfate (Carafate 1 gram Tab) 1 Tablets By Mouth 4 times a day Test Results No qualifying data available. Allergies Bactrim (Flu-like symptoms) Zocor (Unknown) simvastatin (Unknown, Unknown) sulfamethoxazole (Unknown) Problems Ongoing - Any problem that you are currently receiving treatment for. Abdominal pain Acute epigastric pain Agoraphobia Blood loss anemia Cervical disc disease Cirrhosis Depression Diabetes mellitus Diverticulitis Early satiety Elevated alkaline phosphatase level Epigastric pain Gastritis GERD (gastroesophageal reflux disease) Heartburn History of colon polyps History of pancreatitis Hypercholesterolemia Hyperplastic colon polyp Hypothyroidism Lesion of earlobe Nausea Screen for colon cancer Sleep apnea Smoker Status post cholecystectomy Stress incontinence Thrombocytopenia Thyromegaly Historical - Any problem that you are no longer receiving treatment for. FH: cholecystectomy Education Materials Esophagitis Esophagitis is inflammation of the esophagus. The esophagus is the tube that carries food from the mouth to the stomach. Esophagitis can cause soreness or pain in the esophagus. This condition can make it difficult and painful to swallow. What are the causes? Most causes of esophagitis are not serious. Common causes of this condition include: ??? Gastroesophageal reflux disease (GERD). This is when stomach contents move back up into the esophagus (reflux). ??? Repeated vomiting. ??? An allergic reaction, especially caused by food allergies (eosinophilic esophagitis). ??? Injury to the esophagus by swallowing large pills with or without water, or swallowing certain types of medicines. ??? Swallowing harmful chemicals, such as household cleaning products. ??? Drinking a lot of alcohol. ??? An infection of the esophagus. This most often occurs in people who have a weakened immune system. ??? Radiation or chemotherapy treatment for cancer. ??? Certain diseases such as sarcoidosis, Crohn's disease, and scleroderma. What are the signs or symptoms? Symptoms of this condition include: ??? Difficult or painful swallowing. ??? Pain with swallowing acidic liquids, such as citrus juices. You may also have pain when you burp. ??? Chest pain and difficulty breathing. ??? Nausea and vomiting. ??? Pain in the abdomen. ??? Weight loss. ??? Ulcers in the mouth and white patches in the mouth (candidiasis). ??? Fever. ??? Coughing up blood or vomiting blood. ??? Stool that is black, tarry, or bright red. How is this diagnosed? This condition may be diagnosed based on your medical history and a physical exam. You may also have other tests, including: ??? A test to examine your esophagus and stomach with a small flexible tube with a camera (endoscopy). ??? A test that measures the acidity level in your esophagus. ??? A test that measures how much pressure is on your esophagus. ??? A barium swallow or modified barium swallow to show the shape, size, and functioning of your esophagus. ??? Allergy tests. How is this treated? Treatment for this condition depends on the cause of your esophagitis. In some cases, steroids or other medicines may be given to help relieve your symptoms or to treat the underlying cause of your condition. You may have to make some lifestyle changes, such as: ??? Avoiding alcohol. ??? Quitting any products that contain nicotine or tobacco. These products include cigarettes, chewing tobacco, and vaping devices, such as e-cigarettes. If you need help quitting, ask your health care provider. ??? Changing your diet. ??? Exercising. ??? Changing your sleep habits and your sleep environment. Follow these instructions at home: Medicines ??? Take [id number] and prescription medicines only as told by your health care provider. ??? Do not take aspirin, ibuprofen, or other NSAIDs unless your health care provider told you to do so. ??? If you have trouble taking pills: ? Use a pill splitter to decrease the size of the pill. This will decrease the chance of the pill getting stuck or injuring your esophagus. ? Drink water after you take a pill. Eating and drinking ??? Avoid foods and drinks that seem to make your symptoms worse. ??? Follow a diet as recommended by your health care provider. This may involve avoiding foods and drinks such as: ? Coffee and tea, with or without caffeine. ? Drinks that contain alcohol. ? Energy drinks and sports drinks. ? Carbonated drinks or sodas. ? Chocolate and cocoa. ? Peppermint and mint flavorings. ? Garlic and onions. ? Horseradish. ? Spicy and acidic foods, including peppers, chili powder, soriano powder, vinegar, hot sauces, and barbecue sauce. ? Anon Raices fruit juices and citrus fruits, such as oranges, karl, and limes. ? Tomato-based foods, such as red sauce, chili, salsa, and pizza with red sauce. ? Fried and fatty foods, such as donuts, paraguayan fries, potato chips, and high-fat dressings. ? High-fat meats, such as hot dogs and fatty cuts of red and white meats, such as rib eye steak, sausage, ham, and jasso. ? High-fat dairy items, such as whole milk, butter, and cream cheese. Lifestyle ??? Eat small, frequent meals instead of large meals. ??? Avoid drinking large amounts of liquid with your meals. ??? Avoid eating meals during the 2???3 hours before bedtime. ??? Avoid lying down right after you eat. ??? Do not exercise right after you eat. ??? Do not use any products that contain nicotine or tobacco. These products include cigarettes, chewing tobacco, and vaping devices, such as e-cigarettes. If you need help quitting, ask your health care provider. General instructions ??? Pay attention to any changes in your symptoms. Let your health care provider know about them. ??? Wear loose-fitting clothing. Do not wear anything tight around your waist that causes pressure on your abdomen. ??? Raise (elevate) the head of your bed about 6 inches (15 cm). You may need to use a wedge to do this. ??? Try relaxation strategies such as yoga, deep breathing, or meditation to manage stress. If you need help reducing stress, ask your health care provider. ??? If you are overweight, reduce your weight to an amount that is healthy for you. Ask your health care provider for guidance about a safe weight loss goal. ??? Keep all follow-up visits. This is important. Contact a health care provider if: ??? You have new symptoms. ??? You have unexplained weight loss. ??? You have difficulty swallowing, or it hurts to swallow. ??? You have wheezing or a cough that does not go away. ??? Your symptoms do not improve with treatment. ??? You have frequent heartburn for more than two weeks. Get help right away if: ??? You have sudden severe pain in your arms, neck, jaw, teeth, or back. ??? You suddenly feel sweaty, dizzy, or light-headed. ??? You have chest pain or shortness of breath. ??? You vomit and the vomit is green, yellow, or black, or it looks like blood or coffee grounds. ??? Your stool is red, bloody, or black. ??? You have a fever. ??? You cannot swallow, drink, or eat. These symptoms may represent a serious problem that is an emergency. Do not wait to see if the symptoms will go away. Get medical help right away. Call your local emergency services (911 in the [place] Do not drive yourself to the hospital. Summary ??? Esophagitis is inflammation of the esophagus. ??? Most causes of esophagitis are not serious. ??? Follow your health care provider's instructions about eating and drinking. ??? Contact a health care provider if you have new symptoms, have weight loss, or coughing that does not stop. ??? Get help right away if you have severe pain in the arms, neck, jaw, teeth, or back, or if you have chest pain, shortness of breath, or fever. This information is not intended to replace advice given to you by your health care provider. Make sure you discuss any questions you have with your health care provider. Document Revised: 12/23/2020 Document Reviewed: 12/23/2020 [email or web address] Patient Education ??? 2023 [employer] Gastritis, Adult Gastritis is irritation and swelling (inflammation) of the stomach. There are two kinds of gastritis: ??? Acute gastritis. This kind develops quickly. ??? Chronic gastritis. This kind is much more common. It develops slowly and lasts for a long time. It is important to get help for this condition. If you do not get help, your stomach can bleed, and you can get sores (ulcers) in your stomach. What are the causes? This condition may be caused by: ??? Germs that get to your stomach and cause an infection. ??? Drinking too much alcohol. ??? Medicines you are taking. ??? Having too much acid in the stomach. ??? Having a disease of the stomach. Other causes may include: ??? An allergic reaction. ??? Some cancer treatments (radiation). ??? Smoking cigarettes or using products that contain nicotine or tobacco. In some cases, the cause of this condition is not known. What increases the risk? Having a disease of the intestines. ??? Having Crohn's disease. ??? Using aspirin or ibuprofen and other NSAIDs to treat other conditions. ??? Stress. What are the signs or symptoms? Pain in your stomach. ??? A burning feeling in your stomach. ??? Feeling like you may vomit (nauseous). ??? Vomiting or vomiting blood. ??? Feeling too full after you eat. ??? Weight loss. ??? Bad breath. ??? Blood in your poop (stool). In some cases, there are no symptoms. How is this treated? This condition is treated with medicines. The medicines that are used depend on what caused the condition. You may be given: ??? Antibiotic medicine, if your condition was caused by an infection from germs. ??? H2 blockers and similar medicines, if your condition was caused by too much acid in the stomach. Treatment may also include stopping the use of certain medicines, such as aspirin or ibuprofen. Follow these instructions at home: Medicines ??? Take mjvt-izr-voowgoq and prescription medicines only as told by your doctor. ??? If you were prescribed an antibiotic medicine, take it as told by your doctor. Do not stop taking it even if you start to feel better. Alcohol use ??? Do not drink alcohol if: ? Your doctor tells you not to drink. ? You are , may be , or are planning to become . ??? If you drink alcohol: ? Limit your use to: ? 0???1 drink a day for women. ? 0???2 drinks a day for men. ? Know how much alcohol is in your drink. In the [place] one drink equals one 12 oz bottle of beer (355 mL), one 5 oz glass of wine (148 mL), or one 1??? oz glass of hard liquor (44 mL). General instructions ??? Eat small meals often, instead of large meals. ??? Avoid foods and drinks that make you feel worse. ??? Drink enough fluid to keep your pee (urine) pale yellow. ??? Talk with your doctor about ways to manage stress. You can exercise or do deep breathing, meditation, or yoga. ??? Do not smoke or use any products that contain nicotine or tobacco. If you need help quitting, ask your doctor. ??? Keep all follow-up visits. Contact a doctor if: ??? Your symptoms get worse. ??? Your stomach pain gets worse. ??? Your symptoms go away and then come back. ??? You have a fever. Get help right away if: ??? You vomit blood or something that looks like coffee grounds. ??? You have black or dark red poop. ??? You throw up any time you try to drink fluids. These symptoms may be an emergency. Get help right away. Call your local emergency services (911 in the [place] ??? Do not wait to see if the symptoms will go away. ??? Do not drive yourself to the hospital. Summary ??? Gastritis is irritation and swelling (inflammation) of the stomach. ??? You must get help for this condition. If you do not get help, your stomach can bleed, and you can get sores (ulcers) in your stomach. ??? You can be treated with medicines for germs or medicines to block too much acid in your stomach. This information is not intended to replace advice given to you by your health care provider. Make sure you discuss any questions you have with your health care provider. Document Revised: 10/18/2021 Document Reviewed: 10/18/2021 [email or web address] Patient Education ??? 2023 [email or web address] Hiatal Hernia A hiatal hernia occurs when part of the stomach slides above the muscle that separates the abdomen from the chest (diaphragm). A person can be born with a hiatal hernia (congenital), or it may develop over time. In almost all cases of hiatal hernia, only the top part of the stomach pushes through the diaphragm. Many people have a hiatal hernia with no symptoms. The larger the hernia, the more likely it is that you will have symptoms. In some cases, a hiatal hernia allows stomach acid to flow back into the tube that carries food from your mouth to your stomach (esophagus). This may cause heartburn symptoms. The development of heartburn symptoms may mean that you have a condition called gastroesophageal reflux disease (GERD). What are the causes? This condition is caused by a weakness in the opening (hiatus) where the esophagus passes through the diaphragm to attach to the upper part of the stomach. A person may be born with a weakness in the hiatus, or a weakness can develop over time. What increases the risk? This condition is more likely to develop in: ??? Older people. Age is a major risk factor for a hiatal hernia, especially if you are over the age of 50. ??? women. ??? People who are overweight. ??? People who have frequent constipation. What are the signs or symptoms? Symptoms of this condition usually develop in the form of GERD symptoms. Symptoms include: ??? Heartburn. ??? Upset stomach (indigestion). ??? Trouble swallowing. ??? Coughing or wheezing. Wheezing is making high-pitched whistling sounds when you breathe. ??? Sore throat. ??? Chest pain. ??? Nausea and vomiting. How is this diagnosed? This condition may be diagnosed during testing for GERD. Tests that may be done include: ??? X-rays of your stomach or chest. ??? An upper gastrointestinal (GI) series. This is an X-ray exam of your GI tract that is taken after you swallow a chalky liquid that shows up clearly on the X-ray. ??? Endoscopy. This is a procedure to look into your stomach using a thin, flexible tube that has a tiny camera and light on the end of it. How is this treated? This condition may be treated by: ??? Dietary and lifestyle changes to help reduce GERD symptoms. ??? Medicines. These may include: ? Ohkc-wnu-twqcztq antacids. ? Medicines that make your stomach empty more quickly. ? Medicines that block the production of stomach acid (H2 blockers). ? Stronger medicines to reduce stomach acid (proton pump inhibitors). ??? Surgery to repair the hernia, if other treatments are not helping. If you have no symptoms, you may not need treatment. Follow these instructions at home: Lifestyle and activity ??? Do not use any products that contain nicotine or tobacco. These products include cigarettes, chewing tobacco, and vaping devices, such as e-cigarettes. If you need help quitting, ask your health care provider. ??? Try to achieve and maintain a healthy body weight. ??? Avoid putting pressure on your abdomen. Anything that puts pressure on your abdomen increases the amount of acid that may be pushed up into your esophagus. ? Avoid bending over, especially after eating. ? Raise the head of your bed by putting blocks under the legs. This keeps your head and esophagus higher than your stomach. ? Do not wear tight clothing around your chest or stomach. ? Try not to strain when having a bowel movement, when urinating, or when lifting heavy objects. Eating and drinking ??? Avoid foods that can worsen GERD symptoms. These may include: ? Fatty foods, like fried foods. ? Anon Raices fruits, like oranges or lemon. ? Other foods and drinks that contain acid, like orange juice or tomatoes. ? Spicy food. ? Chocolate. ??? Eat frequent small meals instead of three large meals a day. This helps prevent your stomach from getting too full. ? Eat slowly. ? Do not lie down right after eating. ? Do not eat 1???2 hours before bed. ??? Do not drink beverages with caffeine. These include cola, coffee, cocoa, and tea. ??? Do not drink alcohol. General instructions ??? Take jyna-fpw-nkrwljq and prescription medicines only as told by your health care provider. ??? Keep all follow-up visits. Your health care provider will want to check that any new prescribed medicines are helping your symptoms. Contact a health care provider if: ??? Your symptoms are not controlled with medicines or lifestyle changes. ??? You are having trouble swallowing. ??? You have coughing or wheezing that will not go away. ??? Your pain is getting worse. ??? Your pain spreads to your arms, neck, jaw, teeth, or back. ??? You feel nauseous or you vomit. Get help right away if: ??? You have shortness of breath. ??? You vomit blood. ??? You have bright red blood in your stools. ??? You have black, tarry stools. These symptoms may be an emergency. Get help right away. Call 911. ??? Do not wait to see if the symptoms will go away. ??? Do not drive yourself to the hospital. Summary ??? A hiatal hernia occurs when part of the stomach slides above the muscle that separates the abdomen from the chest. ??? A person may be born with a weakness in the hiatus, or a weakness can develop over time. ??? Symptoms of a hiatal hernia may include heartburn, trouble swallowing, or sore throat. ??? Management of a hiatal hernia includes eating frequent small meals instead of three large meals a day. ??? Get help right away if you vomit blood, have bright red blood in your stools, or have black, tarry stools. This information is not intended to replace advice given to you by your health care provider. Make sure you discuss any questions you have with your health care provider. Document Revised: 08/11/2022 Document Reviewed: 08/11/2022 [email or web address] Patient Education ??? 2023 [email or web address] Endoscopy Care After Procedure Please read the instructions outlined below and refer to this sheet in the next few weeks. These discharge instructions provide you with general information on caring for yourself after you leave the hospital. Your doctor may also give you specific instructions. While your treatment has been planned according to the most current medical practices available, unavoidable complications occasionally occur. If you have any problems or questions after discharge, please call your doctor. ACTIVITY ??? You may resume your regular activity but move at a slower pace for the next 24 hours. ??? Take frequent rest periods for the next 24 hours. ??? Walking will help expel (get rid of) the air and reduce the bloated feeling in your abdomen. ??? No driving for 24 hours (because of the anesthesia (medicine) used during the test). ??? You may shower. ??? Do not sign any important legal documents or operate any machinery for 24 hours (because of the anesthesia used during the test). NUTRITION ??? Drink plenty of fluids. ??? You may resume your normal diet. ??? Begin with a light meal and progress to your normal diet. ??? Avoid alcoholic beverages for 24 hours or as instructed by your caregiver. MEDICATIONS ??? You may resume your normal medications unless your caregiver tells you otherwise. WHAT YOU CAN EXPECT TODAY ??? You may experience abdominal discomfort such as a feeling of fullness or ???gas??? pains. FOLLOW-UP ??? Your doctor will discuss the results of your test with you. SEEK IMMEDIATE MEDICAL ATTENTION IF ANY OF THE FOLLOWING OCCUR: ??? Excessive nausea (feeling sick to your stomach) and/or vomiting. ??? Severe abdominal pain and distention (swelling). ??? Trouble swallowing. ??? Temperature over 100 F (37.8??? C). ??? Rectal bleeding or vomiting of blood. Document Released: 01/26/2005 Document Re-Released: 12/06/2006 [employer]Care??? Patient Information ???2010 [employer]. Common Emergency Awareness Tips IS IT A STROKE? Act FAST and Check for these signs: FACE Does the face look uneven? ARM Does one arm drift down? SPEECH Does their speech sound strange? TIME Call at any sign of stroke Heart Attack Signs Chest discomfort: Most heart attacks involve discomfort in the center of the chest and lasts more than a few minutes, or goes away and comes back. It can feel like uncomfortable pressure, squeezing, fullness or pain. Discomfort in upper body: Symptoms can include pain or discomfort in one or both arms, back, neck, jaw or stomach. Shortness of breath: With or without discomfort. Other signs: Breaking out in a cold sweat, nausea, or lightheaded. Remember, MINUTES DO MATTER. If you experience any of these heart attack warning signs, call to get immediate medical attention! Patient Survey You may receive a survey in the mail asking you about your stay with us. We want to hear from you, please share your experience with us by completing your survey. Thank you for choosing [facility] Award Nomination The JAYESH (Diseases Attacking the Immune SYstem) Award is an international recognition program that honors and celebrates the skillful, compassionate care nurses provide every day. Anyone who experiences or observes amazing care being provided by a nurse is encouraged to submit a nomination. To nominate your nurse, use your smart phone to scan the QR code below. Patient Portal You may access all of your results and other medical record information on our secure patient portal. If you are not signed up for this yet, please contact [facility] at [phone] to get signed up today. Patient Name: ANDREIA THOMAS I have received this information and my questions have been answered. 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 Anesthesia history: Patient history: None. Family history+: None. Informed consent: Signed by patient. Re-evaluation prior to induction: Initial evaluation reviewed: No significant change. Review of Systems Eye: Negative except as documented in history of present illness. Ear/Nose/Mouth/Throat: Negative except as documented in history of present illness. Respiratory: Negative except as documented in history of present illness. Cardiovascular: Negative except as documented in history of present illness. Musculoskeletal: Negative except as documented in history of present illness. Neurologic: Negative except as documented in history of present illness. Health Status Allergies: Allergic Reactions (Selected) Severity Not Documented Bactrim- Flu-like symptoms. Simvastatin- Unknown and unknown. Sulfamethoxazole- Unknown. Zocor- Unknown. Problem list: All Problems Type 2 diabetes mellitus / SNOMED CT 696860722 / Confirmed Thrombocytopenia / SNOMED CT 066295085 / Confirmed Smoker / IMO 022647 / Confirmed Added secondary to documentation in Social History. Sleep apnea / SNOMED CT 938972277 / Confirmed Pure hypercholesterolemia / SNOMED CT 055332657 / Confirmed Screen for colon cancer / SNOMED CT 054101175 / Confirmed Nausea / SNOMED CT 8405230451 / Confirmed Lesion of earlobe / SNOMED CT 967002730 / Confirmed Hypothyroidism / SNOMED CT 13409641 / Confirmed Hyperplastic colon polyp / SNOMED CT 2378479678 / Confirmed Hypercholesterolemia / SNOMED CT 84880669 / Confirmed History of colon polyps / SNOMED CT 0839004266 / Confirmed History of pancreatitis / SNOMED CT 6082897166 / Confirmed Status post cholecystectomy / SNOMED CT 1599164944 / Confirmed Heartburn / SNOMED CT 27239937 / Confirmed Thyromegaly / SNOMED CT 8308017 / Confirmed Stress incontinence / SNOMED CT 022884673 / Confirmed GERD (gastroesophageal reflux disease) / SNOMED CT 113016201 / Confirmed Gastritis / SNOMED CT 6013802 / Confirmed Acute epigastric pain / SNOMED CT 793307148 / Confirmed Epigastric pain / SNOMED CT 301200171 / Confirmed Early satiety / SNOMED CT 2594833958 / Confirmed Diverticulitis / SNOMED CT 421524997 / Confirmed Diabetes mellitus / SNOMED CT 609804456 / Confirmed Depression / SNOMED CT 78045071 / Confirmed Cirrhosis / SNOMED CT 08599092 / Confirmed Cervical disc disease / SNOMED CT 1443681705 / Confirmed Blood loss anemia / SNOMED CT 0605167174 / Confirmed Elevated alkaline phosphatase level / SNOMED CT 3115886615 / Confirmed Agoraphobia / SNOMED CT 072624009 / Confirmed Abdominal pain / SNOMED CT 04652795 / Confirmed Resolved: Thyroid dysfunction / SNOMED CT 624394457 Resolved: Panic disorder / SNOMED CT 8775762023 Resolved: FH: cholecystectomy / SNOMED CT 0536762576 Canceled: Abnormal cardiac CT angiography / SNOMED CT 9957876606 Histories Procedure history: Esophagogastroduodenoscopy (714045725) on 05/22/2022 at 56 Years. Comments: 05/22/2022 9:42 Salena Davidson RN gastric biopsy, gastritis, duodenal biopsy r/o celiac disease TVT with sling on 09/10/2017 at 52 Years. Abdominal hysterectomy (543334370). Cholecystectomy (41719593). History of arthroscopy right knee (821959290682314). feet b/l surgery (126803286). Closed fracture of right wrist (430447567004932). History of cholecystectomy (situation) (0113469606). Social History Social & Psychosocial Habits Alcohol 10/10/2024 Risk Assessment: Denies Alcohol Use Substance Abuse 10/10/2024 Risk Assessment: Denies Substance Abuse Tobacco 10/10/2024 Risk Assessment: High Risk 10/10/2024 Tobacco Use: 10 or more cigarettes (1/ . Physical Examination Airway: Mallampati classification: II (soft palate, fauces, uvula visible). Respiratory: adequate air exchange. Cardiovascular: Regular rhythm. Plan [place] [employer]est[employer] (ASA) physical status classification: Class III. Anesthetic Preoperative Plan: Anesthesia General, and Patient educated on benefits, alternatives and inherent risk of anesthesia including, but not all inclusive, Allergic reactions, dental damage, nerve damage and cardio-pulmonary complications and wishes to proceed with anesthetic plan.. Result Comment: Electronical ly Signed By: Mike Cheng Jr, DO\aliyah\Date and Time Signed: 10/18/24 07:32 EDT GASTROENTEROLOGY OFFICE/CLIN IC NOTE Observed: 10/10/2024 1:10 PM Status: F Source: [facility] Gastroenterology Office/Clin ic Note Chief Complaint 4 month follow up HPI Staff Established patient is a(n) 59 year old female who presents today for a(n) 4 month follow up. Labs done at [facility] She can pull the results up on her portal Still having abdominal pain, some days are worse Constant No known triggers Any blood thinners? no Any GLP-1 agonists? no Last visit 06/02/24 w/Dr. Melendrez: History of Present Illness PT with epigastric pain for a while worse with tomato juice underwent work up in the past which was negative early satiety vomiting foamy stuff in am Assessment/Plan 1. Abdominal pain (R10.9: Unspecified abdominal pain) 2. Nausea (R11.0: Nausea) 3. Epigastric pain (R10.13: Epigastric pain) 4. Early satiety (R68.81: Early satiety) 5. Diverticulitis (K57.92: Diverticulitis of intestine, part unspecified, without perforation or abscess without bleeding) 6. Heartburn (R12: Heartburn) 7. History of pancreatitis (Z87.19: Personal history of other diseases of the digestive system) 8. Status post cholecystectomy (Z90.49: Acquired absence of other specified parts of digestive tract) 9. Elevated alkaline phosphatase level (R74.8: Abnormal levels of other serum enzymes) Obtain CBC and CMP And alkaline phosphatase isoenzymes and AMA Might benefit from further workup for elevated alkaline phosphatase Obtain gastric emptying test Start on Carafate 1 g 4 times daily Might benefit from neuromodulator such as amitriptyline versus Questran in the future GES 06/12/24: IMPRESSION: ACCELERATED RATE OF GASTRIC EMPTYING OF A SOLID MEAL. Technical Comments Dose (mCi Tc99m Sulfur Colloid): 0.8 Dose Administered With: 4 oz egg beaters, 2 slices of toast, 120 ml of water Time Frame Required to Ingest the Meal (mins): 10 % Remainin.5 hr (Lower Limit 70%) 74 1.0 hr (Lower Limit 30%, Upper Limit 90%) 20 2.0 hr (Upper Limit 60%) 0 EGD w/ Dr Starks 05/24/22 Impression and [...] GI and small bowel follow through Labs 09/07/24 @ [facility]: RBC 2.71 (L) HGB 11.4 (L) HCT 33.4 (L) MCV 123.2 (H) MCH 42.1 (H) RDW 17.1 (H) Platelet 112 (L) Immature Granulocytes Pct Auto 2.3 (H) Lymphocytes Absolute Auto 1.1 (L) Monocytes Absolute Auto 0.2 (L) Immature Granulocytes Abs Auto 0.10 (H) Sodium 146 (H) Chloride 109 (H) Bilirubin Total 1.2 (H) TSH 17.412 (H) History of Present Illness I have reviewed HPI staff note, most recent labs and imaging, I agree with the above documentation with the following additions/exceptions : Patient continues to have pain in the epigastric area Just got blood work at [facility] and showed platelet count of 73 Other complaints Blood sugars not under good control Has had diabetes for a very long time Patient drinks coffee every day She does not drink alcohol at all Review of Systems PHQ Score Initial Depression Screen Score: 0 SCORE All systems reviewed, negative except as mentioned above Physical Exam Vitals & Measurements HR: 85(Peripheral) RR: 12 BP: 107/68 HT: 158 cm HT: 62 in WT: 68.5 kg WT: 151.016 lb BMI: 27.44 General: alert, no acute distress HEENT: atraumatic normocephalic Cardiovascular: regular rate and rhythm, normal peripheral perfusion Respiratory: Lungs CTA, respirations non labored Extremities: no deformity, no trauma Abdomen: Benign, soft, nontender nondistended Assessment/Plan 1. Abdominal pain (R10.9: Unspecified abdominal pain) Ordered: Acute Hepatitis A B C Panel Alpha Fetoprotein Tumor Marker Alpha Fetoprotein Tumor Marker Qttqv-4-Aspkhlvcwiq CIPRIANO w/Reflex if POS Antimitochondrial Antibody, Quantitative Ceruloplasmin EGD Endoscopy (Hospital Procedure) Hepatitis A Virus (HAV) Antibody, Total Hepatitis B Surface Antibody IgA, Quant. IgG, Quant. Iron Level PT Smooth Muscle Antibody Screen t-Transglutaminase IgA TIBC Calculated US Abdomen Complete Vitamin D 25 Hydroxy 2. Nausea (R11.0: Nausea) Ordered: Acute Hepatitis A B C Panel Alpha Fetoprotein Tumor Marker Alpha Fetoprotein Tumor Marker Dfzaf-6-Drvfgyrhhos CIPRIANO w/Reflex if POS Antimitochondrial Antibody, Quantitative Ceruloplasmin EGD Endoscopy (Hospital Procedure) Hepatitis A Virus (HAV) Antibody, Total Hepatitis B Surface Antibody IgA, Quant. IgG, Quant. Iron Level PT Smooth Muscle Antibody Screen t-Transglutaminase IgA TIBC Calculated Vitamin D 25 Hydroxy 3. Epigastric pain (R10.13: Epigastric pain) Ordered: Acute Hepatitis A B C Panel Alpha Fetoprotein Tumor Marker Alpha Fetoprotein Tumor Marker Ssrlz-8-Gdwczpxrgnm CIPRIANO w/Reflex if POS Antimitochondrial Antibody, Quantitative Ceruloplasmin EGD Endoscopy (Hospital Procedure) Hepatitis A Virus (HAV) Antibody, Total Hepatitis B Surface Antibody IgA, Quant. IgG, Quant. Iron Level PT Smooth Muscle Antibody Screen t-Transglutaminase IgA TIBC Calculated Vitamin D 25 Hydroxy 4. Early satiety (R68.81: Early satiety) Ordered: Acute Hepatitis A B C Panel Alpha Fetoprotein Tumor Marker Alpha Fetoprotein Tumor Marker Tcpti-4-Ndieidnfkqx CIPRIANO w/Reflex if POS Antimitochondrial Antibody, Quantitative Ceruloplasmin EGD Endoscopy (Hospital Procedure) Hepatitis A Virus (HAV) Antibody, Total Hepatitis B Surface Antibody IgA, Quant. IgG, Quant. Iron Level PT Smooth Muscle Antibody Screen t-Transglutaminase IgA TIBC Calculated Vitamin D 25 Hydroxy 5. Diverticulitis (K57.92: Diverticulitis of intestine, part unspecified, without perforation or abscess without bleeding) Ordered: Acute Hepatitis A B C Panel Alpha Fetoprotein Tumor Marker Alpha Fetoprotein Tumor Marker Lpjzf-8-Xqtyyywlezm CIPRIANO w/Reflex if POS Antimitochondrial Antibody, Quantitative Ceruloplasmin EGD Endoscopy (Hospital Procedure) Hepatitis A Virus (HAV) Antibody, Total Hepatitis B Surface Antibody IgA, Quant. IgG, Quant. Iron Level PT Smooth Muscle Antibody Screen t-Transglutaminase IgA TIBC Calculated Vitamin D 25 Hydroxy 6. Heartburn (R12: Heartburn) Ordered: Acute Hepatitis A B C Panel Alpha Fetoprotein Tumor Marker Alpha Fetoprotein Tumor Marker Wuyrv-5-Odzbaornrsg CIPRIANO w/Reflex if POS Antimitochondrial Antibody, Quantitative Ceruloplasmin EGD Endoscopy (Hospital Procedure) Hepatitis A Virus (HAV) Antibody, Total Hepatitis B Surface Antibody IgA, Quant. IgG, Quant. Iron Level PT Smooth Muscle Antibody Screen t-Transglutaminase IgA TIBC Calculated Vitamin D 25 Hydroxy 7. History of pancreatitis (Z87.19: Personal history of other diseases of the digestive system) Ordered: Acute Hepatitis A B C Panel Alpha Fetoprotein Tumor Marker Alpha Fetoprotein Tumor Marker Hawoj-0-Fvbalexgbei CIPRIANO w/Reflex if POS Antimitochondrial Antibody, Quantitative Ceruloplasmin EGD Endoscopy (Hospital Procedure) Hepatitis A Virus (HAV) Antibody, Total Hepatitis B Surface Antibody IgA, Quant. IgG, Quant. Iron Level PT Smooth Muscle Antibody Screen t-Transglutaminase IgA TIBC Calculated US Abdomen Complete Vitamin D 25 Hydroxy 8. Status post cholecystectomy (Z90.49: Acquired absence of other specified parts of digestive tract) Ordered: Acute Hepatitis A B C Panel Alpha Fetoprotein Tumor Marker Alpha Fetoprotein Tumor Marker Etmhp-4-Zvkitbpghsr CIPRIANO w/Reflex if POS Antimitochondrial Antibody, Quantitative Ceruloplasmin EGD Endoscopy (Hospital Procedure) Hepatitis A Virus (HAV) Antibody, Total Hepatitis B Surface Antibody IgA, Quant. IgG, Quant. Iron Level PT Smooth Muscle Antibody Screen t-Transglutaminase IgA TIBC Calculated Vitamin D 25 Hydroxy 9. Elevated alkaline phosphatase level (R74.8: Abnormal levels of other serum enzymes) Ordered: Acute Hepatitis A B C Panel Alpha Fetoprotein Tumor Marker Alpha Fetoprotein Tumor Marker Bjunh-3-Orabdjmqcxv CIPRIANO w/Reflex if POS Antimitochondrial Antibody, Quantitative Ceruloplasmin EGD Endoscopy (Hospital Procedure) Hepatitis A Virus (HAV) Antibody, Total Hepatitis B Surface Antibody IgA, Quant. IgG, Quant. Iron Level PT Smooth Muscle Antibody Screen t-Transglutaminase IgA TIBC Calculated Vitamin D 25 Hydroxy 10. Thrombocytopenia (D69.6: Thrombocytopenia, unspecified) 11. Cirrhosis (K74.60: Unspecified cirrhosis of liver) Ordered: US Abdomen Complete 12. 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 If positive, will proceed with colonoscopy Obtain ultrasound of the abdomen to check for cirrhosis and ascites Obtain iron studies, hepatitis panel, autoimmune panel, AMA, Pressman, and alpha antitrypsin Check alpha-1 protein Advised to drink 2 to 3 cups of medium roast coffee every day Advised to lose 10% of current weight Advised to avoid drinking alcohol Advised to avoid hepatotoxic medications Also get diabetes under good control Follow-up No qualifying data available Problem List/Past Medical History Ongoing Abdominal pain Acute epigastric pain Agoraphobia Blood loss anemia Cervical disc disease Cirrhosis Depression Diabetes mellitus Diverticulitis Early satiety Elevated alkaline phosphatase level Epigastric pain Gastritis GERD (gastroesophageal reflux disease) Heartburn History of colon polyps History of pancreatitis Hypercholesterolemia Hyperplastic colon polyp Hypothyroidism Lesion of earlobe Nausea Screen for colon cancer Sleep apnea Smoker Status post cholecystectomy Stress incontinence Thrombocytopenia Thyromegaly Historical FH: cholecystectomy Procedure/Surgical History Esophagogastroduodenoscopy (05/22/2022), TVT with sling (09/10/2017), Abdominal hysterectomy, Cholecystectomy, Closed fracture of right wrist, feet, History of arthroplasty of right knee, History of cholecystectomy. Medications Amaryl 4 mg Tab, 4 mg= 1 tab(s), Oral, Daily, Not taking Carafate 1 gram Tab, 1 gm= 1 tab(s), Oral, QID, 4 refills, Not taking Celexa, 20 mg, Oral, Daily Crestor, 5 mg, Oral, Once a day (at bedtime) Cytomel 5 mcg Tab, Oral, Daily Klonopin, 2 mg, Oral, TID pantoprazole 40 mg Oral EC Tab, 40 mg= 1 tab(s), Oral, Daily, 3 refills Semglee, SubCutaneous, Daily Synthroid, 125 mcg, Oral, Daily Allergies Bactrim (Flu-like symptoms) Zocor (Unknown) simvastatin (Unknown, Unknown) sulfamethoxazole (Unknown) Social History Alcohol - Denies Alcohol Use, 08/27/2017 Never., 05/30/2024 Substance Abuse - Denies Substance Abuse, 08/27/2017 Never., 05/30/2024 Tobacco - High Risk, 08/27/2017 10 or more cigarettes (1/2 pack or more)/day in last 30 days Tobacco Use:., 10/10/2024 Family History Diabetes mellitus type 2: Mother and Brother. Hypertension: Mother and Brother. Primary malignant neoplasm of brain: Brother. Primary malignant neoplasm of prostate: Father. Immunizations Vaccine Date Status Comments influenza virus vaccine, inactivated - Not Given Patient Refuses influenza virus vaccine, inactivated 03/2022 Recorded influenza virus vaccine, inactivated 05/29/2021 Recorded SARS-CoV-2 (COVID-19) mRNA BNT-162b2 vax 05/29/2021 Recorded SARS-CoV-2 (COVID-19) mRNA BNT-162b2 vax 09/28/2020 Recorded SARS-CoV-2 (COVID-19) mRNA BNT-162b2 vax 09/07/2020 Recorded influenza virus vaccine, inactivated 05/16/2018 Recorded influenza virus vaccine, inactivated 05/04/2018 Recorded influenza virus vaccine, inactivated 03/28/2015 Recorded diphtheria/pertussis, acel/tetanus adult 01/31/2010 Recorded Result Comment: Electronical ly Signed By: Parvin LAND, Roseline Chase\.br\Date and Time Signed: 10/10/24 14:17 EDT AMBULATORY VISIT SUMMARY Observed: 10/10 1:10 PM Status: F Source: [facility] Ambulatory Visit Summary ANDREIA THOMAS :1965 Visit Date:10/10/2024 Ambulatory Visit Instructions Your Diagnosis Abdominal pain Nausea Epigastric pain Early satiety Diverticulitis Heartburn History of pancreatitis Status post cholecystectomy Elevated alkaline phosphatase level Thrombocytopenia Cirrhosis Blood loss anemia Your Care Team Attending Physician - Roseline Melendrez MD Primary Care Physician - Kaitlyn Downing MD This Is Your Medications List Contact prescribing physician if questions or concerns citalopram (Celexa) clonazepam (Klonopin) glimepiride (Amaryl 4 mg Tab) insulin glargine (Semglee) levothyroxine (Synthroid) liothyronine (Cytomel 5 mcg Tab) pantoprazole (pantoprazole 40 mg Oral EC Tab) rosuvastatin (Crestor) sucralfate (Carafate 1 gram Tab) Procedures Performed Esophagogastroduodenoscopy (05/22/2022), TVT with sling (09/10/2017), Abdominal hysterectomy, Cholecystectomy, Closed fracture of right wrist, feet, History of arthroplasty of right knee, History of cholecystectomy. Discharge Vitals Heart Rate (Peripheral) 85 Respiratory Rate 12 Blood Pressure 107/68 Height 158 cm Height 62 in Weight 68.5 kg Weight 151.016 lb BMI 27.44 What to do next Scheduled Follow-Up Appointments Wednesday. 2024 12:45 PM EDT With: Parvin LAND, Roseline Chase Where: [facility] [address] [place] [address] [place], [place] [id number]- You Need to Complete the Following Acute Hepatitis A B C Panel, Blood, Routine collect, 10/10/24, Order for future visit, Lab Collect, Abdominal pain Nausea Epigastric pain Early satiety Diverticulitis Heartburn History of pancreatitis Status post cholecystectomy Elevated alkaline phosphatase level... Alpha Fetoprotein Tumor Marker, Blood, Routine collect, *Est. 10/10/24 +/- 28 day(s), Order for future visit, Lab Collect, Abdominal pain Nausea Epigastric pain Early satiety Diverticulitis Heartburn History of pancreatitis Status post cholecystectomy Elevated alkali... Alpha Fetoprotein Tumor Marker, Blood, Routine collect, *Est. 04/11/25 +/- 28 day(s), Order for future visit, Lab Collect, Abdominal pain Nausea Epigastric pain Early satiety Diverticulitis Heartburn History of pancreatitis Status post cholecystectomy Elevated alkali... [id number], Blood, Routine collect, 10/10/24, Order for future visit, Lab Collect, Abdominal pain Nausea Epigastric pain Early satiety Diverticulitis Heartburn History of pancreatitis Status post cholecystectomy Elevated alkaline phosphatase level... CIPRIANO w/Reflex if POS, Blood, Routine collect, 10/10/24, Order for future visit, Lab Collect, Abdominal pain Nausea Epigastric pain Early satiety Diverticulitis Heartburn History of pancreatitis Status post cholecystectomy Elevated alkaline phosphatase level... Antimitochondrial Antibody, Quantitative, Blood, Routine collect, 10/10/24, Order for future visit, Lab Collect, Abdominal pain Nausea Epigastric pain Early satiety Diverticulitis Heartburn History of pancreatitis Status post cholecystectomy Elevated alkaline phosphatase level... Ceruloplasmin, Blood, Routine collect, 10/10/24, Order for future visit, Lab Collect, Abdominal pain Nausea Epigastric pain Early satiety Diverticulitis Heartburn History of pancreatitis Status post cholecystectomy Elevated alkaline phosphatase level... Hepatitis A Virus (HAV) Antibody, Total, Blood, Routine collect, 10/10/24, Order for future visit, Lab Collect, Abdominal pain Nausea Epigastric pain Early satiety Diverticulitis Heartburn History of pancreatitis Status post cholecystectomy Elevated alkaline phosphatase level... Hepatitis B Surface Antibody, Blood, Routine collect, 10/10/24, Order for future visit, Lab Collect, Abdominal pain Nausea Epigastric pain Early satiety Diverticulitis Heartburn History of pancreatitis Status post cholecystectomy Elevated alkaline phosphatase level... IgA, Quant., Blood, Routine collect, 10/10/24, Order for future visit, Lab Collect, Abdominal pain Nausea Epigastric pain Early satiety Diverticulitis Heartburn History of pancreatitis Status post cholecystectomy Elevated alkaline phosphatase level... IgG, Quant., Blood, Routine collect, 10/10/24, Order for future visit, Lab Collect, Abdominal pain Nausea Epigastric pain Early satiety Diverticulitis Heartburn History of pancreatitis Status post cholecystectomy Elevated alkaline phosphatase level... Iron Level, Blood, Routine collect, 10/10/24, Order for future visit, Lab Collect, Abdominal pain Nausea Epigastric pain Early satiety Diverticulitis Heartburn History of pancreatitis Status post cholecystectomy Elevated alkaline phosphatase level... PT, Blood, Routine collect, 10/10/24, Order for future visit, Lab Collect, Abdominal pain Nausea Epigastric pain Early satiety Diverticulitis Heartburn History of pancreatitis Status post cholecystectomy Elevated alkaline phosphatase level... Smooth Muscle Antibody Screen, Blood, Routine collect, 10/10/24, Order for future visit, Lab Collect, Abdominal pain Nausea Epigastric pain Early satiety Diverticulitis Heartburn History of pancreatitis Status post cholecystectomy Elevated alkaline phosphatase level... t-Transglutaminase IgA, Blood, Routine collect, 10/10/24, Order for future visit, Lab Collect, Abdominal pain Nausea Epigastric pain Early satiety Diverticulitis Heartburn History of pancreatitis Status post cholecystectomy Elevated alkaline phosphatase level... TIBC Calculated, Blood, Routine collect, 10/10/24, Order for future visit, Lab Collect, Abdominal pain Nausea Epigastric pain Early satiety Diverticulitis Heartburn History of pancreatitis Status post cholecystectomy Elevated alkaline phosphatase level... Vitamin D 25 Hydroxy, Blood, Routine collect, 10/10/24, Order for future visit, Lab Collect, Abdominal pain Nausea Epigastric pain Early satiety Diverticulitis Heartburn History of pancreatitis Status post cholecystectomy Elevated alkaline phosphatase level... US Abdomen Complete, 10/10/24, Routine, Order for future visit, Transport Mode: Ambulatory, Reason: Cirrhosis, No, Liver cirrhosis Abdominal pain History of pancreatitis, pp_set_radiology_subspecialty, [facility] [place] Medications What How Much When Why Instructions [...] prescribing physician if questions or concerns Unchanged sucralfate (Carafate 1 gram Tab) 1 Tablets By Mouth 4 times a day Contact prescribing physician if questions or concerns Allergies Bactrim (Flu-like symptoms) Zocor (Unknown) simvastatin (Unknown, Unknown) sulfamethoxazole (Unknown) Problems Ongoing - Any problem that you are currently receiving treatment for. Abdominal pain Acute epigastric pain Agoraphobia Blood loss anemia Cervical disc disease Cirrhosis Depression Diabetes mellitus Diverticulitis Early satiety Elevated alkaline phosphatase level Epigastric pain Gastritis GERD (gastroesophageal reflux disease) Heartburn History of colon polyps History of pancreatitis Hypercholesterolemia Hyperplastic colon polyp Hypothyroidism Lesion of earlobe Nausea Screen for colon cancer Sleep apnea Smoker Status post cholecystectomy Stress incontinence Thrombocytopenia Thyromegaly Historical - Any problem that you are no longer receiving treatment for. FH: cholecystectomy Patient Survey You may receive a survey via text or e-mail asking about your office visit. Please share your experience with us by completing your survey. We appreciate your feedback and thank you for choosing us for your care. PATIENT LETTER [facility] Observed: 06/13/2024 1:07 PM Status: F Source: [facility] Patient Letter [facility] June 13, 2024 ANDREIA GIPSONARNOLDSALOME [address] [place] [address] : 1965 The anti-dumping diet, also known [...] milk products may not be tolerated. Try lactose- free milk instead. Other tips include: Chew your food thoroughly, Eat room temperature foods, Increase your pectin intake to manage diarrhea, and Use low-fat cooking methods PATIENT EDUCATION Observed: 06/13/2024 1:02 PM Status: C Source: [facility] Patient Education NM GASTRIC EMPTYING STUDY Observed: 05/28 7:53 AM Status: F Source: [facility] Exam Date/Time: 06/12/2024 10:21 EST Reason for [...] REPORT Dictated: 06/12/2024 2:34 pm Lul Bustillos MD Signed (Electronic Signature): 06/12/2024 2:34 pm Signed [...] 20 2.0 hr (Upper Limit 60%) 0 AMBULATORY VISIT SUMMARY Observed: 06/02 9:52 AM Status: F Source: [facility] Ambulatory Visit Summary ANDREIA THOMAS :1965 Visit Date:06/02/2024 Ambulatory Visit Instructions [...] Oral EC Tab) rosuvastatin (Crestor) Procedures Performed Esophagogastroduodenoscopy (05/22/2022), TVT with sling (09/10/2017), Abdominal hysterectomy, Cholecystectomy, Closed fracture of right wrist, feet, History of arthroplasty of right knee. Discharge Vitals Respiratory Rate 16 Blood Pressure 118/83 Height 158 cm Height 62 in Weight 72.6 kg Weight 160.055 lb BMI 29.08 What to do next Scheduled Follow-Up Appointments Wednesday 8:15 AM EST With: Parvin LAND, Roseline Chase Where: [facility] [address] [place], [place] [address]- You Need to Complete the Following Alkaline [...] Nausea, Abdominal pain Nausea Epigastric pain, No, pp_set_radiology_subspecialty, [facility] Medications What How Much When Why Instructions [...] you for choosing us for your care. GASTROENTEROLOGY OFFICE/CLIN IC NOTE Observed: 06/02/2024 9:52 AM Status: F Source: [facility] Gastroenterology Office/Clin ic Note Chief Complaint Abdominal pain, nausea HPI [...] Patient reports having previous colonoscopy completed in [place], [place] 2 years ago. Patient reports previous [...] of digestive tract) Ordered: Alkaline Phosphatase Isoenzymes Antimitochondrial Antibody, Quantitative 9. Elevated alkaline phosphatase level (R74.8: Abnormal levels of other serum enzymes) Ordered: Alkaline Phosphatase Isoenzymes Antimitochondrial Antibody, Quantitative Obtain CBC and CMP And alkaline phosphatase isoenzymes and AMA Might benefit from further workup for elevated alkaline phosphatase Obtain gastric emptying test Start on Carafate 1 g 4 times daily Might benefit from neuromodulator such as amitriptyline versus Questran in the future Follow-up No qualifying data available Problem List/Past Medical History Ongoing Acute epigastric pain Agoraphobia Cervical disc disease Depression Diabetes mellitus Diverticulitis Early satiety Elevated alkaline phosphatase level Epigastric pain Gastritis GERD (gastroesophageal reflux disease) Heartburn History of colon polyps History of pancreatitis Hypercholesterolemia Hyperplastic colon polyp Hypothyroidism Lesion of earlobe Screen for colon cancer Sleep apnea Smoker Status post cholecystectomy Stress incontinence Thyromegaly Historical FH: cholecystectomy Procedure/Surgical History Esophagogastroduodenoscopy (05/22/2022), TVT with sling (09/10/2017), Abdominal hysterectomy, Cholecystectomy, Closed fracture of right wrist, feet, History of arthroplasty of right knee. Medications Amaryl 4 mg Tab, 4 mg= 1 tab(s), Oral, Daily Celexa, 20 mg, Oral, Daily Crestor, 5 mg, Oral, Once a day (at bedtime) Cytomel 5 mcg Tab, Oral, Daily Klonopin, 2 mg, Oral, TID pantoprazole 40 mg Oral EC Tab, 40 mg= 1 tab(s), Oral, Daily, 3 refills, Not taking Semglee, SubCutaneous, Daily Synthroid, 125 mcg, Oral, Daily Allergies Bactrim (Flu-like symptoms) Zocor (Unknown) simvastatin (Unknown, Unknown) sulfamethoxazole (Unknown) Social History Alcohol - Denies Alcohol Use, 08/27/2017 Never., 05/30/2024 Substance Abuse - Denies Substance Abuse, 08/27/2017 Never., 05/30/2024 Tobacco - High Risk, 08/27/2017 10 or more cigarettes (1/2 pack or more)/day in last 30 days Tobacco Use:., 06/02/2024 Family History Diabetes mellitus type 2: Mother and Brother. Hypertension: Mother and Brother. Primary malignant neoplasm of brain: Brother. Primary malignant neoplasm of prostate: Father. Immunizations Vaccine Date Status Comments influenza virus vaccine, inactivated - Not Given Patient Refuses influenza virus vaccine, inactivated 03/2022 Recorded influenza virus vaccine, inactivated 05/29/2021 Recorded SARS-CoV-2 (COVID-19) mRNA BNT-162b2 vax 05/29/2021 Recorded SARS-CoV-2 (COVID-19) mRNA BNT-162b2 vax 09/28/2020 Recorded SARS-CoV-2 (COVID-19) mRNA BNT-162b2 vax 09/07/2020 Recorded influenza virus vaccine, inactivated 05/16/2018 Recorded influenza virus vaccine, inactivated 05/04/2018 Recorded influenza virus vaccine, inactivated 03/28/2015 Recorded diphtheria/pertussis, acel/tetanus adult 01/31/2010 Recorded Result Comment: Electronical ly Signed By: Parvin LAND, Roseline Chase\.br\Date and Time Signed: 06/02/24 09:52 EST ALLERGIES DATE TYPE / CODE NAME / CODE REACTION SEVERITY SOURCE SYSTEMIC/[id number](SNOMED CT) NO KNOWN ALLERGIES [facility] [place] /[id number](S NOMED CT) sulfamethoxazole Unknown Primitivo [facility] [id number](S NOMED CT) simvastatin [id number]~Unknown [facility] [id number](S NOMED CT) Bactrim [id number] [facility] [place] [facility] ical [place] [id number](S NOMED CT) Zocor [id number] [facility] ENCOUNTERS ADMIT/DISCHARGE ACCOUNT NUMBER ADMITTING ENCOUNTER CLASS LOCATION SOURCE 11/11/2024 [id number] Inpatient Encounter Buildin [id number] [facility] 11/10/2024 [id number] Inpatient Encounter Buildin 15452 [facility] 11/10/2024 [id number] Inpatient Encounter Buildin 40586 [facility] 11/09/2024 [id number] Inpatient Encounter Building:[facility] 11/09/2024/11/15/19 [id number] [place] [facility] Inpatient Encounter Building:MED SURGRoom: [id number]: 4116-01 [facility] 11/07/2024/11/08/19 [id number] [facility] Downing [facility] 11/07/2024/11/08/19 [id number] Jose Eduardo Ann [facility] 10/31/2024/11/01/19 [id number] Ambulatory [facility] DHBuilding:[facility] DHRoom: CD:[id number] [address] [place] [address] 10/27/2024/10/28/19 [id number] Roseline Melendrez Ambulatory FTBuilding :[facility] 10/27/2024 [id number] Roseline Melendrez Ambulatory FTBuilding :[facility] 10/27/2024/10/28/19 [id number] Roseline Melendrez Ambulatory FTBuilding :[facility] 10/16/2024/10/17/19 [id number] Roseline Melendrez Ambulatory FTBuilding :FT END [facility] 10/16/2024/10/17/19 [id number] Roseline Melendrez [facility] 10/10/2024/10/11/19 [id number] [facility] DHRoom: CD:[id number] [facility] 09/11/2024/09/12/19 [id number] Ambulatory [facility] DHBuilding:F [facility] 06/12/2024/06/12/20 24 [id number] Roseline Melendrez [facility] [place] [facility] 06/02/2024/06/02/20 24 [id number] [facility] DHRoom: CD:[id number] [facility] 01/11/2024/01/11/20 24 [id number] Ambulatory Building:[facility] 03/13/2022 [id number] Ambulatory [facility] DHBuilding:F [facility] PAYERS ENCOUNTER GUARANTOR PAYER SUBSCRIBER SOURCE 11/11/2024 Primary Insurance:MEDICAL MUTUALPolicy Number: [id number] e Date:2024-06-28 RICCI LARSEN: [id number] [place], [place] [address] [place] [address] 11/10/2024 Primary Insurance:MEDICAL MUTUALPolicy Number: [id number] e Date:2024-06-28 RICCI LARSEN: [id number] [place] [address] [facility] 11/10/2024 Primary Insurance:MEDICAL MUTUALPolicy Number: [id number] e Date:2024-06-28 RICIC SPAULDINGB: [id number] [place], [place] [address] [place] [address] 11/09/2024 Primary Insurance:MEDICAL MUTUALPolicy Number: [id number] e Date:2024-06-28 RICCI THOMASB: [id number] [place] [address] [facility] 11/09/2024 Primary Insurance:MEDICAL MUTUALPolicy Number: [id number] e Date:2024-06-28 RICCI Hall BRANDANKWADWOB: [id number] [place] [address] [facility] 10/31/2024 ANDREIA E JASSONB: [place] LNTel: ~~(4 1 (HP) Primary Insurance:MEDICAL MUTUALPolicy Number: [id number] e Date:9260-42-94[address] [address], [place] [address]KU: [facility] 10/27/2024 ANDREIA E JASSONB: [place] LNTel: ~~(4 1 (HP) Primary Insurance:MEDICAL MUTUALPolicy Number: [id number] e Date:9679-10-19[address] [address], [place] [address]SZ: [facility] 10/27/2024 Secondary Insurance:MEDICAREPo licy Number: [id number] Date:5894-73-83[address], [place] [address]QO: ANDREIA E ZIARNOLDSNOW [facility] 10/27/2024 ANDREIA Devora JASSONB: [place] LNTel: ~~(4 1 (HP) Primary Insurance:MEDICAL MUTUALPolicy Number: [id number] e Date:2516-91-26[address] [address], [place] [address]OR: RICCI BUCKLEY [facility] 10/27/2024 Secondary Insurance:MEDICAREPo licy Number: [id number] Date:1104-85-27E[address], [place] [address]SG: ANDREIAAdair BUCKLEY [facility] 10/16/2024 ANDREIA Devora BRANDANLLESDOB: [place] LNTel: ~~(4 1 (HP) Primary Insurance:MEDICAL MUTUALPolicy Number: [id number] e Date:7550-44-52[address] [address], [place] [address]UM: RICCI BUCKLEY [facility] 10/16/2024 Secondary Insurance:MEDICAREPo licy Number: [id number] Date:1600-10-83ET [address], [place] [address]MH: ANDREIAAdair BUCKLEY [facility] 10/16/2024 ANDREIA Devora ZILLESDOB: [place] LNTel: ~~(4 1 (HP) Primary Insurance:MEDICAL MUTUALPolicy Number: [id number] e Date:[id number] [address]OO: RICCI BUCKLEY [facility] 10/16/2024 Secondary Insurance:MEDICAREPo licy Number: [id number] Date:9356-29-94[address] [place] [address]SR: ANDREIAAdair BUCKLEY [facility] 10/10/2024 ANDREIA E ZILLESDOB: [place] LNTel: ~~(4 1 (HP) Primary Insurance:MEDICAL MUTUALPolicy Number: [id number] e Date:1086-08-49[address] [address], [place] [address]PO: RICCI BUCKLEY [facility] 09/11/2024 ANDREIA Devora TERRANCEESDOB: [place] LNTel: ~~(4 1 (HP) Primary Insurance:MEDICAL MUTUALPolicy Number: [id number] e Date:0600-15-16[address] [address], [place] [address]MB: RICCI BUCKLEY [facility] 06/12/2024 ANDREIA E WILLIAMDOB: [place] LNTel: ~~(4 1 (HP) Primary Insurance:MEDICAL MUTUALPolicy Number: [id number] e Date:1991-51-57[address] [place] [address]DL: RICCI BUCKLEY [facility] 06/12/2024 Secondary Insurance:MEDICAREPo licy Number: [id number] Date:7937-64-40LC [address]vf, [place] [address]ZX: ANDREIAAdair BUCKLEY [facility] 06/02/2024 ANDREIA Devora CARLOSESDOB: [place] LNTel: ~~(4 1 (HP) Primary Insurance:MEDICAL MUTUALPolicy Number: [id number] e Date:1609-07-45JM [address] [address], [place] [address]MJ: RICCI BUCKLEY [facility] 01/11/2024 ANDREIA Devora BRANDANLLESD[place]: [place] [address]Zea: () Primary Insurance:MEDICAL MUTUALPolicy Number: [id number] e Date:2022-06-28 ANDREIA LARSEN: [id number] [place], [place] [address] [place] [address] [facility]
--- OUTSIDE RECORDS SUMMARY | 2024-11-15 04:43 | XMS_ITS ---
Author Organization [facility] [place] Address [address] [place] [address] Care Team Providers Care Churn Driller Helper Name Role Phone Salazar Downing Primary Care Provider [phone] Encounters Encounter Location Date Provider Diagnosis [facility] [address] [place] [address] 11/15/2024 Salazar Downing Plan Of Treatment Next Appt Details Provider Name:Salazar Gerson Downing, 02:00:00 PM, [address] [place], [address], Progress Notes * Andreia CID EDOB:[birth year] (59 yo F)Acc No.[id number]:11/15/2024 Patient: Andreia OLIVIER :1965 A ge:59 Y S ex:Female Address:[address] [place], [address] * true * Date: Generated for Printi ng/Faxing/eTransmitting on: 0 11/17/2024 07:41 AM EDT
--- OUTSIDE RECORDS SUMMARY | 2024-11-16 12:26 | XMS_ITS ---
Author Organization [facility] [place] Address [address] [place] [address] Care Team Providers Care Service Writer Name Role Phone Salazar Downing Primary Care Provider [phone] Encounters Encounter Location Date Provider Diagnosis [facility] [address] [place] [id number] 11/16/2024 Salazar Downing Plan Of Treatment Next Appt Details Provider Name:Salazar Gerson Downing, 02:00:00 PM, [address] [place], [address], Progress Notes * Andreia CID EDOB:[birth year] (59 yo F)Acc No.[id number]:11/16/2024 Patient: Andreia OLIVIER :1965 A ge:59 Y S ex:Female Address:[address] [place], [address] * true * Date: Generated for Printi ng/Faxing/eTransmitting on: 0 11/17/2024 07:40 AM EDT
--- OUTSIDE RECORDS SUMMARY | 2024-11-17 07:41 | XMS_ITS | Patient Health Record ---
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 Name Role Phone Salazar Downing Primary Care Provider [phone] KAITLYN DOWNING Unavailable [phone] Allergies Allergen (clinical drug ingredient) Drug/Non Drug Allergy documented on EMR Reaction Allergy Type Onset Date Status sulfamethoxazole / trimethoprim Bactrim flu like symptoms Drug Allergy Active simvastatin Zocor muscle aching Drug Allergy A ctive Substance with sulfonamide structure and antibacterial mechanism of action (substance) Sulfa Antibiotics diarrhea Drug Allergy Active Results Component Value Reference Range Notes AMMONIA Reviewed date:11/07/2024 03:13:58 PM Interpretation: Performing Lab: Notes/Report: [facility] , Ammonia 16 11-32 umol/L Performing Lab: see note ML - The [facility] LB PTT Reviewed date:11/07/2024 03:13:58 PM Interpretation: Performing Lab: Notes/Report: [facility] , Partial Thromboplastin Time 25.3 22.3-36.2 sec Performing Lab: see note ML - The [facility] LB US venous doppler LE BI Reviewed date:12/28/2023 10:20:20 PM Interpretation: Performing Lab: Notes/Report: Source Facility: [facility]-[address] [place] [address] [place] [address] Ultrasound Report Signed Patient: WILLIAMANDREIA Devora MR#: [id number] : 1965 Acct:[id number] Age/Sex: 58 / F ADM Date: 12/28/23 Loc: US Attending Dr: Kaitlyn Downing M.D. Ordering Physician: Kaitlyn Downing M.D. Date of Service: 12/28/23 Procedure(s): US venous doppler LE LT Accession Number(s): [id number] cc: Kaitlyn Downing M.D. [address] [id number] Patient Name: ANDREIA THOMAS MRN: [id number] date: 1965 Sex: F Assigned Patient Location: US Current Patient Location: US Accession/Order Number: [id number] Exam Date: 12/28/2023 11:30 Report Date: 12/28/2023 13:04 At the request of: KAITLYN DOWNING Procedure: US venous doppler LE LT EXAMINATION: US venous doppler LE LT HISTORY: Cellulitis ; trauma to left gaona one week ago COMPARISON: No relevant comparison available. FINDINGS: REGION: Left lower extremity THROMBI: None. COMPRESSIBILITY: Normal compressibility. FLOW: Normal waveform and antegrade flow between 5 and 20 cm/s. OTHER: None. US/US venous doppler LE LT IMPRESSION: 1. No deep vein thrombus within the left lower extremity. Electronically authenticated by: АЛЕКСАНДР VELIZ Date: 12/28/2023 13:04 Dictated By: Александр Veliz M.D. Signed By: 12/28/23 1306 DD/ 1304 TD/TT: Brick Off Bearer: [place] [address] Ultrasound Report Signed Patient: TY THOMAS MR#: [id number] : 1965 Acct:[id number] Age/Sex: 58 / F ADM Date: 12/28/23 Loc: US Attending Dr: Monica Downing M.D. Ordering Physician: Kaitlyn Downing M.D. Date of Service: 12/28/23 Procedure(s): US davi ous doppler LE LT Accession Number(s): [id number] cc: Kaitlyn Downing M.D. [address] [address] Patient Name: ANDREIA THOMAS MRN: [id number] date: 1965 Sex: F Assigned Patient Location: US Current Patient Location: US Accession/Order Numb er: [id number] Exam Date: 12/28/2023 11:30 Report Date: 12/28/2023 13:04 At the request of: KAITLYN DOWNING Procedure: US venous doppler LE LT EXAMINATION: US veno us doppler LE LT HISTORY: Cellulitis ; trauma to left gaona one week ago COMPARISON: No relev ant comparison available. FINDINGS: REGION: Left lower extremity THROMBI: None. COMPRESSIBILITY: Nor mal compressibility. FLOW: Normal wavefor m and antegrade flow between 5 and 20 cm/s. OTHER: None. U S/US venous doppler LE LT IMPRESSION: 1. No deep vein thro mbus within the left lower extremity. Electronically authenticated by: АЛЕКСАНДР VELIZ Date: 12/28/2023 13:04 Dictated By: Александр Veliz M.D. Signed By: 12/28/23 1306 DD/ 1304 TD/TT: Brick Off Bearer: CT lung screening low-dose Reviewed date:05/14/2024 02:32:46 PM Interpretation: Performing Lab: Notes/Report: Source Facility: [place] [address] [place] [address] CT Scan Report Signed Patient: ANDREIA THOMAS MR#: [id number] : 1965 Acct:[id number] Age/Sex: 58 / F ADM Date: 05/10/24 Loc: CT Attending Dr: Kaitlyn Downing M.D. Ordering Physician: Kaitlyn Downing M.D. Date of Service: 05/10/24 Procedure(s): CT lung screening low-dose Accession Number(s): [id number] cc: Kailtyn Downing M.D. [place] [address] Patient Name: ANDREIA THOMAS MRN: [id number] date: 1965 Sex: F Assigned Patient Location: CT Current Patient Location: Accession/Order Number: [id number] Exam Date: 05/10/2024 09:32 Report Date: 05/11/2024 06:05 At the request of: KAITLYN DOWNING Procedure: CT lung screening low-dose EXAMINATION: CT lung screening low-dose HISTORY: Cigarette Nicotine Dependence COMPARISON: No relevant comparison available. TECHNIQUE: Axial, Coronal, and Sagittal images were created without the administration of IV contrast material. Dose reduction techniques were achieved by using automated exposure control and/or adjustment of mA and/or kV according to patient size and/or use of iterative reconstruction technique. FINDINGS: LUNGS: Stable 8 x 5 mm opacity/infiltrate within posterior medial right lung apex adjacent the spine (previously inadvertently described on the left). Mild emphysematous changes. PLEURA: No mass, effusion, or pneumothorax. VASCULATURE: No abnormality. KAY: No mass or pathologic adenopathy. MEDIASTINUM: No mass or pathologic adenopathy. CARDIAC: No enlargement, pericardial thickening, or pericardial effusion. Coronary Artery calcifications: Coronary calcifications are absent. AORTA: No aneurysm or dissection. CHEST WALL: No mass or axillary adenopathy BONES: No bone lesion or fracture. LIMITED ABDOMEN: No suspicious findings. Limited images of the upper abdomen. OTHER: Negative. CT/CT lung screening low-dose IMPRESSION: 1. Lung-RADS 2- Benign Appearance or Behavior. Nodules with a very low likelihood of becoming a clinically active cancer due to size or lack of growth. Follow-up CT Chest in 1 year. Electronically authenticated by: АЛЕКСАНДР VELIZ Date: 05/11/2024 06:05 Dictated By: Александр Veliz M.D. Signed By: 05/11/2408 DD/ 4 TD/TT: Brick Off Bearer: [place] [address] CT Scan Report Signed Patient: TY THOMAS MR#: [id number] : 1965 Acct:[id number] Age/Sex: 58 / F ADM Date: 05/10/24 Loc: CT Attending Dr: Monica Downing M.D. Ordering Physician: Kaitlyn Downing M.D. Date of Service: 05/10/24 Procedure(s): CT ketan g screening low-dose Accession Number(s): [id number] cc: Kaitlyn Downing M.D. [address] [address] Patient Name: ANDREIA THOMAS MRN: [id number] date: 1965 Sex: F Assigned Patient Location: CT Current Patient Location: Accession/Order Numb er: [id number] Exam Date: 09:32 Report Date: 05/11/2024 06:05 At the request of: KAITLYN DOWNING Procedure: CT lung screening low-dose EXAMINATION: CT lung screening low-dose HISTORY: Cigarette Nicotine Dependence COMPARISON: No relev ant comparison available. TECHNIQUE: Axial, Coronal, and Sagittal images were created without the administration of IV contrast material. Dose reduction techniques were achieved by using automated exposure control and/or adjustment of mA and/or kV according to patient size and/ or use of iterative reconstruction technique. FINDINGS: LUNGS: Stable 8 x 5 mm opacity/infiltrate within posterior medial right lung apex adjacent the sp ine (previously inadvertently described on the left). Mild emphysematous changes. PLEURA: No mass, effusion, or pneumothorax. VASCULATURE: No abnormality. KAY: No mass or pathologic adenopathy. MEDIASTINUM: No mass or pathologic adenopathy. CARDIAC: No enlargem ent, pericardial thickening, or pericardial effusion. Coronary Artery calcifications: Coronary calcifications are absent. AORTA: No aneurysm o r dissection. CHEST WALL: No mass or axillary adenopathy BONES: No bone lesio n or fracture. LIMITED ABDOMEN: No suspicious findings. Limited images of the upper abdomen. OTHER: Negative. C T/CT lung screening low-dose IMPRESSION: 1. Lung-RADS 2- Stephen gn Appearance or Behavior. Nodules with a very low likelihood of becomi ng a clinically active cancer due to size or lack of growth. Follow-up CT Chest in 1 year. Electronically authenticated by: АЛЕКСАНДР VELIZ Date: 05/11/2024 06:05 Dictated By: Александр Veliz M.D. Signed By: 05/11/24607 DD/ 4 TD/TT: Brick Off Bearer: ALVARADO T3 Reviewed date:11/07/2024 03:13:58 PM Interpretation: Performing Lab: Notes/Report: [facility] , Free T3 1.85 2.18-3.98 pg/mL Performing Lab: see note ML - [facility] LB LACTATE or LACTIC ACID Reviewed date:11/07/2024 03:13:58 PM Interpretation: Performing Lab: Notes/Report: [facility] , Lactate/Lactic Acid 0.9 0.4-2.0 mmol/L Performing Lab: see note ML - [facility] LB LDH Reviewed date:11/07/2024 03:13:58 PM Interpretation: Performing Lab: Notes/Report: [facility] , Lactate Dehydrogenase 5257 81-234 U/L Performing Lab: see note ML - [facility] LB LIVER PROFILE Reviewed date:11/07/2024 03:13:58 PM Interpretation: Performing Lab: Notes/Report: [facility] , Bilirubin Total 1.7 0.2-1.0 mg/dL Bilirubin Direct 0.4 0.0-0.2 mg/dL Aspartate Amino Transferase 122 15-37 U/L Alanine Aminotransferase 30 14-59 U/L Alkaline Phosphatase 98 46-116 U/L Total Protein 5.7 6.4-8.2 g/dL Albumin Level 3.3 3.4-5.0 g/dL Globulin 2.4 Albumin Globulin Ratio 1.4 Performing Lab: see note ML - [facility] LB MAGNESIUM Reviewed date:11/07/2024 03:13:58 PM Interpretation: Performing Lab: Notes/Report: [facility] , Magnesium 1.9 1.8-2.4 mg/dL Performing Lab: see note ML - [facility] LB PERIPHERAL SMEAR Reviewed date:11/09/2024 09:02:01 PM Interpretation: Performing Lab: Notes/Report: [facility] , Peripheral Smear SEE SCANNED REPORT Performing Lab: see note ML - [facility] LB T4 Reviewed date:11/07/2024 03:13:58 PM Interpretation: Performing Lab: Notes/Report: [facility] , T4 Thyroxine 10.50 4.80-13.90 ug/dL Performing Lab: see note ML - [facility] LB TSH Reviewed date:11/07/2024 03:13:58 PM Interpretation: Performing Lab: Notes/Report: [facility] , Thyroid Stimulating Hormone 0.052 0.358-3.740 uIU/mL Performing Lab: see note - [facility] LB UA RANDOM W or MICROSCOPIC Reviewed date:11/07/2024 03:13:58 PM Interpretation: Performing Lab: Notes/Report: [facility] , Color Urine YELLOW YELLOW Clarity Urine CLOUDY CLEAR Specific [place] Urine 1.025 1.005-1.025 pH Urine 6.0 5.0-9.0 Protein Urine 100 NEG/TRACE mg/dL Glucose Urine UA NEGATIVE NEGATIVE mg/dL Bilirubin Urine SMALL NEGATIVE Ketones Urine NEGATIVE NEGATIVE mg/dL Blood Urine SMALL NEGATIVE Nitrite Urine NEGATIVE NEGATIVE Urobilinogen Urine 2.0 0.2-1.0 EU/dL Leukocyte Esterase Urine TRACE NEGATIVE WBC Urine 5-10 NONE SEEN #/HPF RBC Urine 2-5 0-2 #/HPF Bacteria Urine LARGE NONE SEEN #/HPF Mucus Urine NONE SEEN NONE SEEN Squamous Epithelial Cell Urine FEW NONE/RARE #/LPF Crystals Seen? None Seen None Seen #/HPF Cast Seen? NONE SEEN NONE SEEN #/LPF Urine Culture Indicated YES-[facility] [place] Performing Lab: see note ML - [facility] LB Manual Differential Reviewed date:11/07/2024 03:13:58 PM Interpretation: Performing Lab: Notes/Report: [facility] , Segmented Neutrophils % Manual 56.0 43.0-75.0 Lymphocytes Percent Manual 42.0 20.5-60.0 % Monocytes Percent Manual 2.0 1.7-12.0 % Eosinophils Percent Manual 0.0 0.9-7.0 % Basophils Percent Manual 0.0 0.2-2.0 % Segmented Neut Absolute Manual 1.23 1.4-6.5 10 3/uL Lymphocytes Absolute Manual 0.92 1.20-3.80 10 3/uL Monocytes Absolute Manual 0.04 0.30-0.80 10 3/uL Eosinophils Absolute Manual 0.00 0.00-0.70 10 3/uL Basophils Abs Manual 0.00 0.00-0.10 1 0 3/uL Macrocytosis 2+ Performing Lab: see note ML - [facility] LB Troponin I High Sensitivity Reviewed date:11/07/2024 03:13:58 PM Interpretation: Performing Lab: Notes/Report: [facility] , Troponin I High Sensitivity 4.2 4.0-51.3 pg/mL CUT-OFF POINTS HAVE BEEN ESTABLISHED BASED ON THE FOURTH UNIVERSAL DEFINITION OF MYOCARDIAL INFARCTION. THE UPPER REFERENCE LIMIT (URL) OF TROPONIN, DEFINED THE 99TH PERCENTILE OF cTnI DISTRIBUTION IN A REFERENCE POPULATION, HAS BEEN CONFIRMED THE DECISION THRESHOLD FOR ME DIAGNOSIS. 99TH PERCENTILE = 51.4 PG/ML NOTE: HIGH-SENSITIVITY TROPONIN ASSAY IS NOT INTENDED TO BE USED IN ISOLATION BUT SHOULD BE INTERPRETED IN CONJUNCTION WITH OTHER DIAGNOSTIC AND CLINICAL INFORMATION. Performing Lab: see note ML - [facility] Venous Blood Gas Reviewed date:11/07/2024 03:13:58 PM Interpretation: Performing Lab: Notes/Report: [facility] , pH VBG 7.400 7.330-7.430 PCO2 VBG 41.9 40.0-52.0 mmHg Performing Lab: see note - [facility] LAB TESTING Reviewed date:11/12/2024 10:59:29 PM Interpretation: Performing Lab: Notes/Report: [id number] ACTIVITY [facility] , Miscellaneous Test COMMENT . Test Ordered: [id number] Activity [id number] Activity 92.0 % Reference Range: >66.8 This test was developed and its performance characteristics determined by [facility]. It has not been cleared or approved by the Food and Drug Administration. Comment Comment BN Reference Range: . Severe deficiency of AFOFNY29 (less than 10% activity) is a relatively specific finding in patients with a clinical diagnosis of either hereditary or acquired thrombotic thrombocytopenic purpura (TTP). Normal to moderately reduced BOTFIQ53 activity results do not exclude a diagnosis of TTP. Conditions that could have PXNVLU56 activity greater than 10% include hemolytic uremic syndrome (HUS), atypical hemolytic uremic syndrome (aHUS), and other thrombotic microangiopathies associated with hematopoietic stem cell and solid organ transplantation, liver disease, DIC, sepsis, , or effects of certain medications (eg, clopidogrel, cyclosporine, mitomycin C, quinine). Performed at: [facility] [address] [id number] Computer Network Support Specialist: Ana Cristina Torres MD, Phone: [phone] Performed at: [address] [id number] Computer Network Support Specialist: Brayan Pena PhD, Phone: [phone] Performing Lab: see note LC - [facility] LB Prothrombin Time INR Reviewed date:11/09/2024 09:02:01 PM Interpretation: Performing Lab: Notes/Report: [facility] , Prothrombin Time 11.9 9.0-11.6 sec INR 1.14 DESIRED INR: 2.0-3.0 CONDITIONS NOT LISTED BELOW 2.5-3.5 FOR PROSTHETIC HEART VALVE REPLACEMENT 2.5-3.5 RECURRENT THROMBOSIS Performing Lab: see note - [facility] LB PROF 14(COMP METB) Reviewed date:11/09/2024 09:02:01 PM Interpretation: Performing Lab: Notes/Report: [facility] , Sodium 147 136-145 mmol/L Potassium 3.2 3.5-5.1 mmol/L Chloride 108 98-107 mmol/L Carbon Dioxide 31.1 21.0-32.0 mmol/L Anion Gap 11.1 Glucose 121 74-106 mg/dL Blood Urea Nitrogen 24.0 7.0-18.0 mg/dL Creatinine 0.81 0.55-1.02 mg/dL Estimated GFR ( Mendy >60 >=60 mL/min/1.73m 2 Estimated GFR (Non- Radha >60 >=60 mL/min/1.73m 2 BUN Creatinine Ratio 29.6 Calcium 9.4 8.5-10.1 mg/dL Bilirubin Total 1.2 0.2-1.0 mg/dL Aspartate Amino Transferase 65 15-37 U/L Alanine Aminotransferase 39 14-59 U/L Alkaline Phosphatase 109 46-116 U/L Total Protein 6.2 6.4-8.2 g/dL Albumin Level 3.7 3.4-5.0 g/dL Globulin 2.5 Albumin Globulin Ratio 1.5 Performing Lab: see note ML - [facility] LB CBC AUTO DIFF Reviewed date:11/09/2024 09:02:01 PM Interpretation: Performing Lab: Notes/Report: [facility] , White Blood Count 3.2 4.0-11.0 10 3/uL Red Blood Count 2.44 4.20-5.40 10 6/uL TEAR DROP 1+ DIMORPHIC POPULATION 2+ Hemoglobin 8.7 12.0-16.0 g/dL Hematocrit 25.8 36.0-48.0 % Mean Corpuscular Volume 105.7 81.0-99.0 fL MACR OCYTOSIS 2+ Mean Corpuscular Hemoglobin 35.7 26.7-34.0 pg Mean Corpuscular HGB Conc 33.7 29.9-35.2 g/dL Red Cell Distribution Width 23.9 11.0-15.0 % ANISOCYTOSIS 3+ Platelet Count 29 150-450 10 3/uL RESULTS CA LLED TO KACY REYES RN at 0736 Neutrophils Percent Auto 43.3 43.0-75.0 % Lymphocytes Percent Auto 45.3 20.5-60.0 % Monocytes Percent Auto 7.9 1.7-12.0 % Eosinophils Percent Auto 0.0 0.9-7.0 % Basophils Percent Auto 0.3 0.2-2.0 % Immature Granulocytes Pct Auto 3.2 0.0-0.5 % Neutrophils Absolute Auto 1.4 1.4-6.5 10 3/uL Lymphocytes Absolute Auto 1.4 1.2-3.8 10 3/uL Monocytes Absolute Auto 0.3 0.3-0.8 10 3/uL Eosinophils Absolute Auto 0.0 0.0-0.7 10 3/uL Basophils Absolute Auto 0.0 0.0-0.1 10 3/uL Immature Granulocytes Abs Auto 0.10 0.00-0.03 10 3/uL Performing Lab: see note [facility] LB AMMONIA Reviewed date:11/09/2024 09:02:01 PM Interpretation: Performing Lab: Notes/Report: [facility] , Ammonia 15 11-32 umol/L Performing Lab: see note - [facility] Comp panel: Leukemia/Lymphom a Reviewed date:11/12/2024 10:59:29 PM Interpretation: Performing Lab: Notes/Report: [facility] , Flow Interpretation Comment . No significant immunophenotypic abnormality detected. B cell clonality could not be evaluated due to non specific staining, see comment. Flow Comment Comment . Nonspecific light chain binding can sometimes be seen in the setting of increased serum proteins. Clinical correlation is recommended. Repeat testing may be useful. Clinical Information Comment . A recent CBC was not available for review at the time this report was prepared. Specimen Type Comment . Peripheral blo od Assessment of Leukocytes Comment . Cool and lambda staining cannot be interpreted due to nonspecific light chain binding. There is no loss of, or aberrant expression of, the ramos T cell antigens to suggest a neoplastic T cell process. CD4:CD8 ratio 6.0 1% myeloblasts with normal phenotype are detected. Granulocytes show left-shifted maturation. Viability Comment . 74% Cell viability in this sample is sufficient for analysis but is less than optimal. Analysis and Gating Strategy Comment . 8 color analysis with CD45/SSC gating Technical-Analysis performed at [place] [address], [facility], [address], [facility] [address], Director: Alon Altman, [facility], Phenotype Chart Comment . CD2 Normal CD3 Normal CD4 Normal CD5 Normal CD7 Normal CD8 Normal CD10 Normal CD11b Normal CD13 Normal CD14 Normal CD16 Normal CD19 Normal CD20 Normal CD33 Normal CD34 Normal CD38 Normal CD45 Normal CD56 Normal CD57 Normal CD64 Normal CD117 Normal HLA-DR Normal KAPPA See Text LAMBDA See Text Resulting Path Name Comment . Nivia mcclendon M.D. Comment: Comment . Each antibody in this assay was utilized to assess for potential abnormalities of studied cell populations or to characterize identified abnormalities. This test was developed and its performance characteristics determined by [facility]. It has not been cleared or approved by the U.S. Food and Drug Administration. The FDA has determined that such clearance or approval is not necessary. This test is used for clinical purposes. It should not be regarded as investigational or for research. Performed at: -Y - [facility] [address] [place], [place] [id number] Computer Network Support Specialist: Alon Altman [facility], Phone: [phone] Performed at: - [facility] [address] [place], [place] [id number] Computer Network Support Specialist: Alon Altman [facility], Phone: [phone] Performing Lab: see note - [facility] LB PROF 14(COMP METB) Reviewed date:11/08/2024 05:26:51 PM Interpretation: Performing Lab: Notes/Report: [facility] , Sodium 141 136-145 mmol/L Potassium 4.1 3.5-5.1 mmol/L Chloride 105 98-107 mmol/L Carbon Dioxide 28.7 21.0-32.0 mmol/L Anion Gap 11.4 Glucose 192 74-106 mg/dL Blood Urea Nitrogen 18.0 7.0-18.0 mg/dL Creatinine 0.68 0.55-1.02 mg/dL Estimated GFR ( Mendy >60 >=60 mL/min/1.73m 2 Estimated GFR (Non- Radha >60 >=60 mL/min/1.73m 2 BUN Creatinine Ratio 26.5 Calcium 9.1 8.5-10.1 mg/dL Bilirubin Total 1.3 0.2-1.0 mg/dL Aspartate Amino Transferase 104 15-37 U/L Alanine Aminotransferase 43 14-59 U/L Alkaline Phosphatase 121 46-116 U/L Total Protein 6.2 6.4-8.2 g/dL Albumin Level 3.6 3.4-5.0 g/dL Globulin 2.6 Albumin Globulin Ratio 1.4 Performing Lab: see note ML - [facility] LB CBC AUTO DIFF Reviewed date:11/08/2024 05:26:51 PM Interpretation: Performing Lab: Notes/Report: [facility] , White Blood Count 2.0 4.0-11.0 10 3/uL Red Blood Count 2.37 4.20-5.40 10 6/uL Hemoglobin 8.4 12.0-16.0 g/dL Hematocrit 24.4 36.0-48.0 % Mean Corpuscular Volume 103.0 81.0-99.0 fL Mean Corpuscular Hemoglobin 35.4 26.7-34.0 pg Mean Corpuscular HGB Conc 34.4 29.9-35.2 g/dL Platelet Count 30 150-450 10 3/uL Neutrophils Percent Auto 56.8 43.0-75.0 % Lymphocytes Percent Auto 32.2 20.5-60.0 % Monocytes Percent Auto 4.0 1.7-12.0 % Eosinophils Percent Auto 0.0 0.9-7.0 % Basophils Percent Auto 0.5 0.2-2.0 % Immature Granulocytes Pct Auto 6.5 0.0-0.5 % Neutrophils Absolute Auto 1.1 1.4-6.5 10 3/uL Lymphocytes Absolute Auto 0.6 1.2-3.8 10 3/uL Monocytes Absolute Auto 0.1 0.3-0.8 10 3/uL Eosinophils Absolute Auto 0.0 0.0-0.7 10 3/uL Basophils Absolute Auto 0.0 0.0-0.1 10 3/uL Immature Granulocytes Abs Auto 0.13 0.00-0.03 10 3/uL Performing Lab: see note ML - [facility] LB PROF 14(COMP METB) Reviewed date:11/08/2024 05:26:51 PM Interpretation: Performing Lab: Notes/Report: [facility] , Sodium 143 136-145 mmol/L Potassium 3.8 3.5-5.1 mmol/L Chloride 106 98-107 mmol/L Carbon Dioxide 27.8 21.0-32.0 mmol/L Anion Gap 13.0 Glucose 130 74-106 mg/dL Blood Urea Nitrogen 17.0 7.0-18.0 mg/dL Creatinine 0.64 0.55-1.02 mg/dL Estimated GFR ( Mendy >60 >=60 mL/min/1.73m 2 Estimated GFR (Non- Radha >60 >=60 mL/min/1.73m 2 BUN Creatinine Ratio 26.6 Calcium 8.9 8.5-10.1 mg/dL Bilirubin Total 1.6 0.2-1.0 mg/dL Aspartate Amino Transferase 123 15-37 U/L Alanine Aminotransferase 39 14-59 U/L Alkaline Phosphatase 118 46-116 U/L Total Protein 6.3 6.4-8.2 g/dL Albumin Level 3.7 3.4-5.0 g/dL Globulin 2.6 Albumin Globulin Ratio 1.4 Performing Lab: see note ML - [facility] LIPASE Reviewed date:11/08/2024 05:26:51 PM Interpretation: Performing Lab: Notes/Report: [facility] , Lipase 55.0 16.0-77.0 U/L Performing Lab: see note ML - [facility] LB LACTATE or LACTIC ACID Reviewed date:11/08/2024 05:26:51 PM Interpretation: Performing Lab: Notes/Report: [facility] , Lactate/Lactic Acid 0.8 0.4-2.0 mmol/L Performing Lab: see note ML - [facility] LB AMYLASE Reviewed date:11/08/2024 05:26:51 PM Interpretation: Performing Lab: Notes/Report: [facility] , Amylase 37 25-115 U/L Performing Lab: see note ML - [facility] LB AMMONIA Reviewed date:11/08/2024 05:26:51 PM Interpretation: Performing Lab: Notes/Report: [facility] , Ammonia 34 11-32 umol/L Performing Lab: see note - [facility] LB Bilirubin Total Reviewed date:11/08/2024 05:26:51 PM Interpretation: Performing Lab: Notes/Report: [facility] , Bilirubin Total 1.3 0.2-1.0 mg/dL Performing Lab: see note - [facility] LB Reticulocyte Pct Auto Reviewed date:11/08/2024 05:26:51 PM Interpretation: Performing Lab: Notes/Report: [facility] [facility] , Reticulocyte Pct Auto 1.31 0.60-3.10 % Performing Lab: see note - [facility] Manual Differential Reviewed date:11/08/2024 05:26:51 PM Interpretation: Performing Lab: Notes/Report: [facility] , Segmented Neutrophils % Manual 47.0 43.0-75.0 Lymphocytes Percent Manual 52.0 20.5-60.0 % Monocytes Percent Manual 1.0 1.7-12.0 % Eosinophils Percent Manual 0.0 0.9-7.0 % Basophils Percent Manual 0.0 0.2-2.0 % Segmented Neut Absolute Manual 0.89 1.4-6.5 10 3/uL Lymphocytes Absolute Manual 0.98 1.20-3.80 10 3/uL Monocytes Absolute Manual 0.01 0.30-0.80 10 3/uL Eosinophils Absolute Manual 0.00 0.00-0.70 10 3/uL Basophils Abs Manual 0.00 0.00-0.10 1 0 3/uL Macrocytosis 1+ Schistocytes 1+ Performing Lab: see note - [facility] LB IRON AND TIBC Reviewed date:11/08/2024 05:26:51 PM Interpretation: Performing Lab: Notes/Report: [facility] , Iron 95.0 50.0-170.0 ug/dL Total Iron Binding Capacity 219.0 250.0-450.0 ug/dL Percent Iron Saturation 43.4 Performing Lab: see note - [facility] LB FOLATE Reviewed date:11/08/2024 05:26:51 PM Interpretation: Performing Lab: Notes/Report: [facility] , Folate 22.30 8.60-58.90 ng/mL Performing Lab: see note ML - [facility] LB FERRITIN Reviewed date:11/08/2024 05:26:51 PM Interpretation: Performing Lab: Notes/Report: [facility] , Ferritin 300.0 8.0-252.0 ng/mL Performing Lab: see note ML - [facility] LB CBC AUTO DIFF Reviewed date:11/08/2024 05:26:51 PM Interpretation: Performing Lab: Notes/Report: [facility] , White Blood Count 1.9 4.0-11.0 10 3/uL Red Blood Count 1.25 4.20-5.40 10 6/uL Hemoglobin 5.2 12.0-16.0 g/dL RESULTS JACOBS D TO JUANA HERNANDEZ RN at 2027 Hematocrit 15.2 36.0-48.0 % RESULTS CALLED TO JUANA HERNANDEZ RN at 2027 Mean Corpuscular Volume 121.6 81.0-99.0 fL Mean Corpuscular Hemoglobin 41.6 26.7-34.0 pg Mean Corpuscular HGB Conc 34.2 29.9-35.2 g/dL Red Cell Distribution Width 13.6 11.0-15.0 % Platelet Count 30 150-450 10 3/uL Performing Lab: see note ML - [facility] LB BILIRUBIN CONJUGATED (DIRECT ) Reviewed date:11/08/2024 05:26:51 PM Interpretation: Performing Lab: Notes/Report: [facility] , Bilirubin Direct 0.3 0.0-0.2 mg/dL Performing Lab: see note ML - [facility] LB ECG 12 lead Reviewed date:11/07/2024 06:10:41 PM Interpretation: Performing Lab: Notes/Report: Source Facility: [facility]-[address] [place] [address] [place] [address] Electrocardiograph Report Signed Patient: ANDREIA THOMAS MR#: [id number] : 1965 Acct:[id number] Age/Sex: 59 / F ADM Date: 11/07/24 Loc: [place] 218-[address]: Kaitlyn Downing M.D. Ordering Physician: Chance Ware M.D. Date of Service: 11/07/24 Procedure(s): ECG 12 lead Accession Number(s): [id number] cc: [facility] Test Date: 2024-11-07 Pat Name: ANDREIA THOMAS Department: Room: - Gender: Female Tafe Registrar: : 1965 Requested By: 1030 Order Number: [id number] Reading MD: GONZALEZ BEVERLY M.D. Measurements Intervals [place] Rate: 80 P: 61 LA: 132 QRS: 16 QRSD: 86 T: 38 QT: 404 QTc: 440 Interpretive Statements 1100 Sinus rhythm 8102 Low QRS voltage in chest leads Abnormal ECG No previous ECG available for comparison Electronically Signed On 11-07-2024 17:53:39 EDT by GONZALEZ BEVERLY M.D. Dictated By: GONZALEZ BEVERLY Signed By: 11/07/24 1753 DD/ 0939 TD/TT: Brick [employer] Bearer: [place] [address] Electrocardiograph Report Signed Patient: TY THOMAS MR#: [id number] : 1965 Acct:[id number] Age/Sex: 59 / F ADM Date: 11/07/24 Loc: MS 218-[address]: Monica Downing M.D. Ordering Physician: Chance Ware M.D. Date of Service: 11/07/24 Procedure(s): ECG 12 lead Accession Number(s): [id number] cc: [facility] Test Date: 2024-11-07 Pat Name: ANDREIA TREVINO Department: 07 Room: - Gender: Female Tafe Registrar: : 1965 Requested By: 1030 Order Number: [id number] Reading MD: GONZALEZ BEVERLY M.D. Measurements Intervals [place] Rate: 80 P: 61 LA: 132 QRS: 16 QRSD: 86 T: 38 QT: 404 QTc: 440 Interpretive Statements 1100 Sinus rhythm 8102 Low QRS voltage in chest leads Abnormal ECG No previous ECG available for comparison Electronically Reena d On 11-07-2024 17:53:39 EDT by GONZALEZ BEVERLY M.D. Dictated By: GONZALEZ BEVERLY Signed By: 11/07/24 1753 DD/ 0939 TD/TT: Brick Off Bearer: Urine Culture - [facility] Reviewed date:11/09/2024 09:02:01 PM Interpretation: Performing Lab: Notes/Report: [facility] , Urine Culture - [facility] See Below For Report Urine [facility] - [facility] Testing performed at [facility] O:ESCCOL Isolated Urine Culture - [facility] Panaca Count Organism: 1.1 Antibiotic Interpretation ILIA Status Urine Culture - [facility] [address] [place] [address] Urine Culture - [facility] Testing performed at [facility] O:ESCCOL Isolated Urine Culture - [facility] Panaca Count Organism: 1.1 Antibiotic Interpretation ILIA Status Urine Culture - [facility] See Below For Report Urine Culture - [facility] Testing performed at [facility] O:ESCCOL Isolated Urine Culture - [facility] Panaca Count Organism: 1.1 Antibiotic Interpretation ILIA Status Urine Culture - [facility] See Below For Report Urine Culture - [facility] Testing performed at [facility] O:ESCCOL Isolated Urine Culture - [facility] Panaca Count Organism: 1.1 Antibiotic Interpretation ILIA Status Urine Culture [facility] >100,000 Urine Culture - [facility] Testing performed at [facility] O:ESCCOL Isolated Urine Culture - [facility] Panaca Count Organism: 1.1 Antibiotic Interpretation ILIA Status Urine Culture - [facility] See Below For Report Urine Culture - [facility] Testing performed at [facility] O:ESCCOL Isolated Urine Culture - [facility] Panaca Count Organism: 1.1 Antibiotic Interpretation ILIA Status Urine Culture - [facility] Amikacin S F Urine Culture - [facility] Testing performed at [facility] O:ESCCOL Isolated Urine Culture - [facility] Panaca Count Organism: 1.1 Antibiotic Interpretation ILIA Status Urine Culture - [facility] Amoxicillin/Clavula gonsalo S F Urine Culture - [facility] Testing performed at [facility] O:ESCCOL Isolated Urine Culture - [facility] Panaca Count Organism: 1.1 Antibiotic Interpretation ILIA Status Urine Culture - [facility] Ampicillin S F Urine Culture - [facility] Testing performed at [facility] O:ESCCOL Isolated Urine Culture - [facility] Panaca Count Organism: 1.1 Antibiotic Interpretation ILIA Status Urine Culture [facility] Aztreonam S F Urine Culture - [facility] Testing performed at [facility] O:ESCCOL Isolated Urine Culture - [facility] Panaca Count Organism: 1.1 Antibiotic Interpretation ILIA Status Urine Culture - [facility] Ceftazidime S F Urine Culture - [facility] Testing performed at [facility] O:ESCCOL Isolated Urine Culture - [facility] Panaca Count Organism: 1.1 Antibiotic Interpretation ILIA Status Urine Culture - [facility] Ceftazidime/Avibact am S F Urine Culture - [facility] Testing performed at [facility] O:ESCCOL Isolated Urine Culture - [facility] Panaca Count Organism: 1.1 Antibiotic Interpretation ILIA Status Urine Culture - [facility] Ceftolozane/Tazobac cohn S F Urine Culture - [facility] Testing performed at [facility] O:ESCCOL Isolated Urine Culture - [facility] Panaca Count Organism: 1.1 Antibiotic Interpretation ILIA Status Urine Culture - [facility] Ciprofloxacin S F Urine Culture - [facility] Testing performed at [facility] O:ESCCOL Isolated Urine Culture - [facility] Panaca Count Organism: 1.1 Antibiotic Interpretation ILIA Status Urine Culture - [facility] Ertapenem S F Urine Culture - [facility] Testing performed at [facility] O:ESCCOL Isolated Urine Culture - [facility] Panaca Count Organism: 1.1 Antibiotic Interpretation ILIA Status Urine Culture - [facility] Gentamicin S F Urine Culture - [facility] Testing performed at [facility] O:ESCCOL Isolated Urine Culture - [facility] Panaca Count Organism: 1.1 Antibiotic Interpretation ILIA Status Urine Culture [facility] Levofloxacin S F Urine Culture - [facility] Testing performed at [facility] O:ESCCOL Isolated Urine Culture - [facility] Panaca Count Organism: 1.1 Antibiotic Interpretation ILIA Status Urine [facility] Meropenem S F Urine Culture - [facility] Testing performed at [facility] O:ESCCOL Isolated Urine Culture - [facility] Panaca Count Organism: 1.1 Antibiotic Interpretation ILIA Status Urine Culture [facility] Meropenem/Vaborbact am S F Urine Culture - [facility] Testing performed at [facility] O:ESCCOL Isolated Urine Culture - [facility] Panaca Count Organism: 1.1 Antibiotic Interpretation ILIA Status Urine Culture - [facility] Nitrofurantoin S F Urine Culture - [facility] Testing performed at [facility] O:ESCCOL Isolated Urine Culture - [facility] Panaca Count Organism: 1.1 Antibiotic Interpretation ILIA Status Urine Culture [facility] Tetracycline S F Urine Culture - [facility] Testing performed at [facility] O:ESCCOL Isolated Urine Culture - [facility] Panaca Count Organism: 1.1 Antibiotic Interpretation ILIA Status Urine Culture [facility] Tigecycline S F Urine Culture - [facility] Testing performed at [facility] O:ESCCOL Isolated Urine Culture - [facility] Panaca Count Organism: 1.1 Antibiotic Interpretation ILIA Status Urine Culture [facility] Tobramycin S F Urine Culture - [facility] Testing performed at [facility] O:ESCCOL Isolated Urine Culture - [facility] Panaca Count Organism: 1.1 Antibiotic Interpretation ILIA Status Urine Culture [facility] Ampicillin/Sulbactam S F Urine Culture - [facility] Testing performed at [facility] O:ESCCOL Isolated Urine Culture - [facility] Panaca Count Organism: 1.1 Antibiotic Interpretation ILIA Status Urine Culture [facility] Cefazolin S F Urine Culture - [facility] Testing performed at [facility] O:ESCCOL Isolated Urine Culture - [facility] Panaca Count Organism: 1.1 Antibiotic Interpretation ILIA Status Urine Culture [facility] Cefepime S F Urine Culture - [facility] Testing performed at [facility] O:ESCCOL Isolated Urine Culture - [facility] Panaca Count Organism: 1.1 Antibiotic Interpretation ILIA Status Urine Culture [facility] Ceftriaxone S F Urine Culture - [facility] Testing performed at [facility] O:ESCCOL Isolated Urine Culture - [facility] Panaca Count Organism: 1.1 Antibiotic Interpretation ILIA Status Urine Culture [facility] Cefuroxime S F Urine Culture - [facility] Testing performed at [facility] O:ESCCOL Isolated Urine Culture - [facility] Panaca Count Organism: 1.1 Antibiotic Interpretation ILIA Status Urine Culture [facility] Piperacillin/Tazoba ctam S F Urine Culture - [facility] Testing performed at [facility] O:ESCCOL Isolated Urine Culture - [facility] Panaca Count Organism: 1.1 Antibiotic Interpretation ILIA Status Urine Culture [facility] Trimethoprim/Sulfa S F Urine Culture - [facility] Testing performed at [facility] O:ESCCOL Isolated Urine Culture - [facility] Panaca Count Organism: 1.1 Antibiotic Interpretation ILIA Status Performing Lab: see note ML - [facility] SEE REPORT - Edge Cutter Id information not found for OBX-specific remote operations producer legend Vitamin B12 Reviewed date:11/08/2024 05:26:51 PM Interpretation: Performing Lab: Notes/Report: [facility] , Vitamin B12 [phone] pg/mL Performed at: [facility] [address] [id number] Computer Network Support Specialist: Brayan Pena PhD, Phone: [phone] Performing Lab: see note [facility] LB Occult Blood* Reviewed date:11/07/2024 03:13:58 PM Interpretation: Performing Lab: Notes/Report: [facility] , Occult Blood Negative Performing Lab: see note [facility] LB Type and Screen Reviewed date:11/08/2024 07:38:21 PM Interpretation: Performing Lab: Notes/Report: [facility] , Blood Type O Positive Antibody Screen POSITIVE Packed Red Blood Cells Reviewed date:11/08/2024 07:38:21 PM Interpretation: Performing Lab: Notes/Report: Packed Red Blood Cells [id number] OP RC TRANSFUSED 11/08/24 0241 [id number] OP RC TRANSFUSED 11/08/24 0617 Second ABO/RH Type Reviewed date:11/07/2024 03:13:58 PM Interpretation: Performing Lab: Notes/Report: [facility] , Blood Type #2 O Positive Prothrombin Time INR Reviewed date:11/07/2024 03:13:58 PM Interpretation: Performing Lab: Notes/Report: [facility] , Prothrombin Time 13.7 9.0-11.6 sec INR 1.33 DESIRED INR: 2.0-3.0 CONDITIONS NOT LISTED BELOW 2.5-3.5 FOR PROSTHETIC HEART VALVE REPLACEMENT 2.5-3.5 RECURRENT THROMBOSIS Performing Lab: see note [facility] LB Blood Culture 2 Reviewed date:11/12/2024 10:59:29 PM Interpretation: Performing Lab: Notes/Report: [facility] , Blood Culture 2 See Below For Report Blood Culture 2 NG5D NO GROWTH AT 5 DAYS.^NO GROWTH AT 5 DAYS. Performing Lab: see note [facility] LB Blood Culture 1 Reviewed date:11/12/2024 10:59:29 PM Interpretation: Performing Lab: Notes/Report: [facility] , Blood Culture 1 See Below For Report Blood Culture 1 NG5D NO GROWTH AT 5 DAYS.^NO GROWTH AT 5 DAYS. Performing Lab: see note [facility] LB PROF CHEM 8 (BAS METB) Reviewed date:11/07/2024 03:13:58 PM Interpretation: Performing Lab: Notes/Report: [facility] , Sodium 144 136-145 mmol/L Potassium 2.7 3.5-5.1 mmol/L RESULTS JACOBS D TO Dr. Ware Chloride 106 98-107 mmol/L Carbon Dioxide 27.2 21.0-32.0 mmol/L Anion Gap 13.5 Glucose 109 74-106 mg/dL Blood Urea Nitrogen 28.0 7.0-18.0 mg/dL Creatinine 0.81 0.55-1.02 mg/dL Estimated GFR ( Mendy >60 >=60 mL/min/1.73m 2 Estimated GFR (Non- Radha >60 >=60 mL/min/1.73m 2 BUN Creatinine Ratio 34.6 Calcium 8.3 8.5-10.1 mg/dL Performing Lab: see note ML - [facility] LB FOLATE Reviewed date:11/07/2024 03:13:58 PM Interpretation: Performing Lab: Notes/Report: [facility] , Folate 21.10 8.60-58.90 ng/mL Performing Lab: see note ML - [facility] LB FIBRINOGEN Reviewed date:11/07/2024 03:13:58 PM Interpretation: Performing Lab: Notes/Report: [facility] , Fibrinogen 275 200-400 mg/dL Performing Lab: see note ML - [facility] LB CBC AUTO DIFF Reviewed date:11/07/2024 03:13:58 PM Interpretation: Performing Lab: Notes/Report: [facility] , White Blood Count 2.2 4.0-11.0 10 3/uL Red Blood Count 1.26 4.20-5.40 10 6/uL Hemoglobin 5.3 12.0-16.0 g/dL RESULTS JACOBS D TO DR. CHANCE WARE at 1016 Hematocrit 15.6 36.0-48.0 % RESULTS CALLED TO DR. CHANCE WARE at 1016 Mean Corpuscular Volume 123.8 81.0-99.0 fL Mean Corpuscular Hemoglobin 42.1 26.7-34.0 pg Mean Corpuscular HGB Conc 34.0 29.9-35.2 g/dL Red Cell Distribution Width 13.3 11.0-15.0 % Platelet Count 31 150-450 10 3/uL Mean Platelet Volume 12.2 9.5-13.5 fL Performing Lab: see note ML - [facility] LB ANTIBODY ID PANEL Reviewed date:11/08/2024 07:38:21 PM Interpretation: Performing Lab: Notes/Report: [facility] , Antibody Identification E LAB TESTING Reviewed date:10/11/2024 08:14:00 PM Interpretation: Performing Lab: Notes/Report: [id number] Alkaline Phosphatase Isoenzymes [facility] , Miscellaneous Test COMMENT . Test Ordered: [id number] Alk Phos Isoenzyme Alkaline Phosphatase 80 IU/L CB Reference Range: 44-121 Liver Fraction: 78 % CB Reference Range: 18-85 Bone Fraction: 22 % CB Reference Range: 14-68 Intestinal Frac.: 0 % CB Reference Range: 0-18 Performed at: CB - [facility] [address] [id number] Computer Network Support Specialist: Brayan Pena PhD, Phone: [phone] Performing Lab: see note - [facility] LB PROF 14(COMP METB) Reviewed date:10/10/2024 01:39:20 PM Interpretation: Performing Lab: Notes/Report: [facility] , Sodium 144 136-145 mmol/L Potassium 3.9 3.5-5.1 mmol/L Chloride 105 98-107 mmol/L Carbon Dioxide 28.7 21.0-32.0 mmol/L Anion Gap 14.2 Glucose 95 74-106 mg/dL Blood Urea Nitrogen 15.0 7.0-18.0 mg/dL Creatinine 0.71 0.55-1.02 mg/dL Estimated GFR ( Mendy >60 >=60 mL/min/1.73m 2 Estimated GFR (Non- Radha >60 >=60 mL/min/1.73m 2 BUN Creatinine Ratio 21.1 Calcium 8.9 8.5-10.1 mg/dL Bilirubin Total 1.2 0.2-1.0 mg/dL Aspartate Amino Transferase 61 15-37 U/L Alanine Aminotransferase 37 14-59 U/L Alkaline Phosphatase 83 46-116 U/L Total Protein 6.5 6.4-8.2 g/dL Albumin Level 3.8 3.4-5.0 g/dL Globulin 2.7 Albumin Globulin Ratio 1.4 Performing Lab: see note ML - [facility] LB LAB TESTING Reviewed date:10/11/2024 08:14:00 PM Interpretation: Performing Lab: Notes/Report: [id number] Mitochondrial (M2) Antibody [facility] , Miscellaneous Test COMMENT . Test Ordered: [id number] Mitochondrial (M2) Antibody Mitochondrial (M2) Antibody <20.0 Units CB Reference Range: 0.0-20.0 Negative 0.0 - 20.0 Equivocal 20.1 - 24.9 Positive >24.9 Mitochondrial (M2) Antibodies are found in 90-96% of patients with primary biliary cirrhosis. Performed at: - [facility] [address] [id number] Computer Network Support Specialist: Brayan Pena PhD, Phone: [phone] Performing Lab: see note - [facility] LB CBC AUTO DIFF Reviewed date:10/10/2024 01:39:20 PM Interpretation: Performing Lab: Notes/Report: [facility] , White Blood Count 3.9 4.0-11.0 10 3/uL Red Blood Count 2.02 4.20-5.40 10 6/uL Hemoglobin 8.6 12.0-16.0 g/dL Hematocrit 24.8 36.0-48.0 % Mean Corpuscular Volume 122.8 81.0-99.0 fL MACR OCYTOSIS 3+ Mean Corpuscular Hemoglobin 42.6 26.7-34.0 pg Mean Corpuscular HGB Conc 34.7 29.9-35.2 g/dL Red Cell Distribution Width 13.2 11.0-15.0 % Platelet Count 73 150-450 10 3/uL Mean Platelet Volume 12.0 9.5-13.5 fL Neutrophils Percent Auto 67.3 43.0-75.0 % Lymphocytes Percent Auto 27.3 20.5-60.0 % Monocytes Percent Auto 2.6 1.7-12.0 % Eosinophils Percent Auto 0.8 0.9-7.0 % Basophils Percent Auto 0.5 0.2-2.0 % Immature Granulocytes Pct Auto 1.5 0.0-0.5 % Neutrophils Absolute Auto 2.6 1.4-6.5 10 3/uL Lymphocytes Absolute Auto 1.1 1.2-3.8 10 3/uL Monocytes Absolute Auto 0.1 0.3-0.8 10 3/uL Eosinophils Absolute Auto 0.0 0.0-0.7 10 3/uL Basophils Absolute Auto 0.0 0.0-0.1 10 3/uL Immature Granulocytes Abs Auto 0.06 0.00-0.03 10 3/uL Performing Lab: see note ML - [facility] LB VITAMIN D 25 [place] Reviewed date:09/07/2024 07:57:57 PM Interpretation: Performing Lab: Notes/Report: [facility] , Vitamin D 13.2 <20 ng/mL Vit D deficient 20-<30 ng/mL Vit D insufficient 30-100 ng/mL Vit D sufficient >100 ng/mL Potential Toxicity Performing Lab: see note ML - [facility] LB CBC AUTO DIFF Reviewed date:09/07/2024 07:57:57 PM Interpretation: Performing Lab: Notes/Report: [facility] , White Blood Count 4.3 4.0-11.0 10 3/uL Red Blood Count 2.71 4.20-5.40 10 6/uL Hemoglobin 11.4 12.0-16.0 g/dL Hematocrit 33.4 36.0-48.0 % Mean Corpuscular Volume 123.2 81.0-99.0 fL Mean Corpuscular Hemoglobin 42.1 26.7-34.0 pg Mean Corpuscular HGB Conc 34.1 29.9-35.2 g/dL Red Cell Distribution Width 17.1 11.0-15.0 % Platelet Count 112 150-450 10 3/uL Mean Platelet Volume 10.5 9.5-13.5 fL Neutrophils Percent Auto 64.4 43.0-75.0 % Lymphocytes Percent Auto 26.3 20.5-60.0 % Monocytes Percent Auto 4.2 1.7-12.0 % Eosinophils Percent Auto 2.1 0.9-7.0 % Basophils Percent Auto 0.7 0.2-2.0 % Immature Granulocytes Pct Auto 2.3 0.0-0.5 % Neutrophils Absolute Auto 2.8 1.4-6.5 10 3/uL Lymphocytes Absolute Auto 1.1 1.2-3.8 10 3/uL Monocytes Absolute Auto 0.2 0.3-0.8 10 3/uL Eosinophils Absolute Auto 0.1 0.0-0.7 10 3/uL Basophils Absolute Auto 0.0 0.0-0.1 10 3/uL Immature Granulocytes Abs Auto 0.10 0.00-0.03 10 3/uL Performing Lab: see note ML - [facility] LB XR tibia fibula LT 2V Reviewed date:12/30/2023 01:03:25 PM Interpretation: Performing Lab: Notes/Report: Source Facility: [place] [address] [place] [address] XRay Report Signed Patient: ANDREIA THOMAS MR#: [id number] : 1965 Acct:[id number] Age/Sex: 58 / F ADM Date: 12/28/23 Loc: US Attending Dr: Kaitlyn Downing M.D. Ordering Physician: Kaitlyn Downing M.D. Date of Service: 12/28/23 Procedure(s): XR tibia fibula LT 2V Accession Number(s): [id number] cc: Kaitlyn Downing M.D. [place] [address] Patient Name: ANDREIA THOMAS MRN: [id number] date: 1965 Sex: F Assigned Patient Location: Current Patient Location: Accession/Order Number: [id number] Exam Date: 12/28/2023 11:25 Report Date: 12/29/2023 13:40 At the request of: KAITLYN DOWNING Procedure: XR tibia fibula LT 2V PROCEDURE: XR tibia fibula LT 2V, XR ankle LT min 3V HISTORY: Cellulitis COMPARISON: None. FINDINGS: BONES:Prior mechanical fusion of the first tarsal-metatarsal joint. Unremarkable knee joint and ankle joint. No fracture, acute abnormality, or significant arthropathy. SOFT TISSUES:No visible soft tissue swelling. EFFUSION:None visible. OTHER: Negative. XR/XR tibia fibula LT 2V IMPRESSION: 1. No acute bone abnormality. 2. No significant degenerative joint disease. 3. No suspicious radiopaque foreign body. Electronically authenticated by: АЛЕКСАНДР VELIZ Date: 12/29/2023 13:40 Dictated By: Александр Veliz M.D. Signed By: 12/29/23 134 DD/ 1340 TD/TT: Brick Off Bearer: [facility] [place] [id number] XRay Report Signed Patient: TY THOMAS MR#: [id number] : 1965 Acct:[id number] Age/Sex: 58 / F ADM Date: 12/28/23 Loc: US Attending Dr: Monica Downing M.D. Ordering Physician: Kaitlyn Downing M.D. Date of Service: 12/28/23 Procedure(s): XR tib ia fibula LT 2V Accession Number(s): [id number] cc: Kaitlyn Downing M.D. [place] [address] Patient Name: ANDREIA THOMAS MRN: [id number] date: 1965 Sex: F Assigned Patient Location: Current Patient Location: Accession/Order Numb er: [id number] Exam Date: 12/28/2023 11:25 Report Date: 12/29/2023 13:40 At the request of: KAITLYN DOWNING Procedure: XR tibia fibula LT 2V PROCEDURE: XR tibia fibula LT 2V, XR ankle LT min 3V HISTORY: Cellulitis COMPARISON: None. 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 Unremarkable knee zac int and ankle joint. No fracture, acute abnormality, or significant arthropathy. SOFT TISSUES:No visi ble soft tissue swelling. EFFUSION:None visible. OTHER: Negative. X R/XR tibia fibula LT 2V IMPRESSION: 1. No acute bone abnormality. 2. No significant degenerative joint disease. 3. No suspicious radiopaque foreign body. Electronically authenticated by: АЛЕКСАНДР VELIZ Date: 12/29/2023 13:40 Dictated By: Александр Veliz M.D. Signed By: 12/29/23 134 DD/ 1340 TD/TT: Brick Off Bearer: XR ankle LT min 3V Reviewed date:12/30/2023 01:03:25 PM Interpretation: Performing Lab: Notes/Report: Source Facility: [place] [address] [place] [address] XRay Report Signed Patient: ANDREIA THOMAS MR#: [id number] : 1965 Acct:[id number] Age/Sex: 58 / F ADM Date: 12/28/23 Loc: US Attending Dr: Kaitlyn Downing M.D. Ordering Physician: Kaitlyn Downing M.D. Date of Service: 12/28/23 Procedure(s): XR ankle LT min 3V Accession Number(s): [id number] cc: Kaitlyn Downing M.D. [place] [address] Patient Name: ANDREIA THOMAS MRN: [id number] date: 1965 Sex: F Assigned Patient Location: Current Patient Location: Accession/Order Number: [id number] Exam Date: 12/28/2023 11:25 Report Date: 12/29/2023 13:40 At the request of: KAITLYN DOWNING Procedure: XR ankle LT min 3V PROCEDURE: XR tibia fibula LT 2V, XR ankle LT min 3V HISTORY: Cellulitis COMPARISON: None. FINDINGS: BONES:Prior mechanical fusion of the first tarsal-metatarsal joint. Unremarkable knee joint and ankle joint. No fracture, acute abnormality, or significant arthropathy. SOFT TISSUES:No visible soft tissue swelling. EFFUSION:None visible. OTHER: Negative. XR/XR ankle LT min 3V IMPRESSION: 1. No acute bone abnormality. 2. No significant degenerative joint disease. 3. No suspicious radiopaque foreign body. Electronically authenticated by: АЛЕКСАНДР VELIZ Date: 12/29/2023 13:40 Dictated By: Александр Veliz M.D. Signed By: 12/29/23 1342 DD/ 1340 TD/TT: Brick Off Bearer: [place] [address] XRay Report Signed Patient: TY THOMAS MR#: [id number] : 1965 Acct:[id number] Age/Sex: 58 / F ADM Date: 12/28/23 Loc: US Attending Dr: Monica Downing M.D. Ordering Physician: Kaitlyn Downing M.D. Date of Service: 12/28/23 Procedure(s): XR ank le LT min 3V Accession Number(s): [id number] cc: Kaitlyn Downing M.D. [facility] [place] [address] Patient Name: ANDREIA THOMAS MRN: [id number] date: 1965 Sex: F Assigned Patient Location: [place] Current Patient Location: Accession/Order Numb er: [id number] Exam Date: 12/28/2023 11:25 Report Date: 12/29/2023 13:40 At the request of: KAITLYN ODWNING Procedure: XR ankle LT min 3V PROCEDURE: XR tibia fibula LT 2V, XR ankle LT min 3V HISTORY: Cellulitis COMPARISON: None. 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 Unremarkable knee zac int and ankle joint. No fracture, acute abnormality, or significant arthropathy. SOFT TISSUES:No visi ble soft tissue swelling. EFFUSION:None visible. OTHER: Negative. X R/XR ankle LT min 3V IMPRESSION: 1. No acute bone abnormality. 2. No significant degenerative joint disease. 3. No suspicious radiopaque foreign body. Electronically authenticated by: АЛЕКСАНДР VELIZ Date: 12/29/2023 13:40 Dictated By: Александр Veliz M.D. Signed By: 12/29/23 1342 DD/ 1340 TD/TT: Brick Off Bearer: MARTI echo doppler complete Reviewed date:11/08/2024 05:26:51 PM Interpretation: Performing Lab: Notes/Report: Source Facility: [place] [address] [place] [address] Cardiology Report Signed Patient: ANDREIA THOMAS MR#: [id number] : 1965 Acct:[id number] Age/Sex: 59 / F ADM Date: 11/07/24 Loc: [place] 218-[address]: Kaitlyn Downing M.D. Ordering Physician: Kaitlyn Downing M.D. Date of Service: 11/07/24 Procedure(s): CA echo doppler complete Accession Number(s): [id number] cc: Kaitlyn Downing M.D. Patient Name: ANDREIA THOMAS MR#: [id number] : 1965 Exam Date: 11/07/2024 Ordering Doctor: DR KAITLYN DOWNING . ECHOCARDIOGRAM REPORT PROCEDURE: CA ECHO DOPPLER COMPLETE INDICATIONS: dyspnea, AMS COMPARISON: None. DESCRIPTION: COMPLETE ECHOCARDIOGRAM Real-time transthoracic echocardiography with 2D, M-mode, spectral and color flow Doppler performed. QUALITY: Technical quality was good. LEFT VENTRICLE: Normal chamber size. Normal left ventricular wall thickness. LV EF: Global left ventricular systolic function is hyperdynamic; visually estimated ejection fraction is 65 to 70%. No regional wall motion abnormalities. DIASTOLIC: Normal diastolic function. ATRIAL SEPTUM: Inadequately seen. LEFT ATRIUM: Normal chamber size. RIGHT ATRIUM: Normal chamber size. RIGHT VENTRICLE: Appears enlarged. Normal right ventricular systolic function. TRICUSPID VALVE: Normal mobility and thickness. Mild regurgitation. Doppler studies reveal mildly (35-45) elevated right sided pressures. RVSP 43 mmHg MITRAL VALVE: Normal mobility and thickness. No evidence of mitral valve stenosis. There is no mitral annular calcification. No mitral regurgitation. AORTIC VALVE: Normal trileaflet appearance. No visible sclerosis. Normal leaflet mobility. No evidence of aortic valve stenosis. No aortic regurgitation. AORTIC ROOT: Normal diameter and appearance. Ascending aorta is normal in size. PULMONIC VALVE: Normal thickness and mobility. No stenosis. No regurgitation. PERICARDIUM: Anterior free space; trivial effusion versus fat pad. IVC: IVC is normal in size, does not fully collapse. CONCLUSION: 1. Global left ventricular systolic function is hyperdynamic; visually estimated ejection fraction is 65 to 70% 2. The right ventricle appears enlarged with preserved systolic function 3. Normal diastolic function 4. The left atrium is normal in size 5. Mild tricuspid regurgitation 6. Mildly elevated right ventricular systolic pressure; RVSP 43 mmHg 7. Anterior free space; trivial effusion versus fat pad Adult Echocardiography Procedure Report Left Ventricle LVEDD (3.7 - 5.6 cm): 4.32 cm LVESD (2.2 - 4.0 cm): 2.58 cm LVIVS thickness (0.6 - 1.2 cm): 1.01 cm LVPW thickness (0.5 - 1.0 cm): 0.98 cm e': 0.10 m/s E - e': 11.10 LVOT Max Gradient: 7.52 mm[Hg], 7.91 mm[Hg] LVOT Area (cm2): 1.41 m/s, 1.37 m/s Peak Velocity (LVOT): 1.41 m/s, 1.37 m/s Mean Velocity (LVOT): 0.88 m/s LVOT Diameter 1.84 cm Left Atrium LA Volume Index (2D A2C): 30.38 ml/m2 Left Atrium Systolic Dimension: 4.57 cm Mitral Valve MV E to A Ratio: 0.94 Mitral Valve A-Wave Peak Velocity: 1.14 m/s Mitral Valve E-Wave Peak Velocity: 1.07 m/s Right Ventricle Aorta AO Root Diam: 3.01 cm Ascending Ao Diam: 2.87 cm Aortic Valve AoV Area (Peak Carlos A): 1.67 cm2, 1.67 cm2, 1.63 cm2, 1.63 cm2 AoV Area (VTI): 1.86 cm2, 1.86 cm2 Peak Velocity(Antegrade Flow): 2.23 m/s Peak Gradient(Antegrade Flow): 19.94 mm[Hg] Mean Velocity(Antegrade Flow): 1.31 m/s Mean Gradient(Antegrade Flow): 8.58 mm[Hg] Velocity Time Integral: 43.15 cm Tricuspid Valve Peak Velocity (Regurgitant Flow): 3.21 m/s, 2.96 m/s Pulmonic Valve Mean Gradient: 4.15 mm[Hg] Mean Velocity: 0.96 m/s Peak Velocity: 1.31 m/s, 1.20 m/s Peak Gradient: 6.88 mm[Hg], 5.80 mm[Hg] Right Atrium Right Atrium Systolic Pressure: 40.94 ml, 40.94 ml Dictated by: Sendy Sanabria M.D. on 11/08/2024 at 11:45 Approved by: Sendy Sanabria M.D. on 11/08/2024 at 11:48 Dictated By: Sendy Sanabria M.D. Signed By: 11/08/24 1149 DD/ 1148 TD/TT: Brick Off Bearer: [place] [address] Cardiology Report Signed Patient: TY THOMAS MR#: [id number] : 1965 Acct:[id number] Age/Sex: 59 / F ADM Date: 11/07/24 Loc: [place] 218-[address]: Monica Downing M.D. Ordering Physician: Kaitlyn Downing M.D. Date of Service: 11/07/24 Procedure(s): CA ech o doppler complete Accession Number(s): [id number] cc: Kaitlyn Downing M.D. Patient Name: ANDREIA THOMAS MR#: [id number] : 1965 Exam Date: 11/07/2024 Ordering Doctor: DR KAITLYN DOWNING . ECHOCARDIOGRAM REPORT PROCEDURE: CA ECHO DOPPLER COMPLETE INDICATIONS: dyspnea , AMS COMPARISON: None. DESCRIPTION: COMPLET E ECHOCARDIOGRAM Real-time transthoracic echocardiography wit h 2D, M-mode, spectral and color flow Doppler performed. QUALITY: Technical quality was good. LEFT VENTRICLE: Norm al chamber size. Normal left ventricular wall thickness. LV EF: Global left ventricular systolic function is hyperdynamic; visually estimated ejection fraction is 65 to 70%. No regional wall motion abnormalities. DIASTOLIC: Normal diastolic function. ATRIAL SEPTUM: Inadequately seen. LEFT ATRIUM: Normal chamber size. RIGHT ATRIUM: Normal chamber size. RIGHT VENTRICLE: Eliana ears enlarged. Normal right ventricular systolic function. TRICUSPID VALVE: Nor mal mobility and thickness. Mild regurgitation. Doppler studies reve al mildly (35-45) elevated right sided pressures. RVSP 43 mmHg MITRAL VALVE: Normal mobility and thickness. No evidence of mitral valve stenosis. There is n o mitral annular calcification. No mitral regurgitation. AORTIC VALVE: Normal trileaflet appearance. No visible sclerosis. Normal leaflet mobility. No evidence of aortic valve stenosis. No aortic regurgitation. AORTIC ROOT: Normal diameter and appearance. Ascending aorta is normal in size. PULMONIC VALVE: Norm al thickness and mobility. No stenosis. No regurgitation. PERICARDIUM: Anterio r free space; trivial effusion versus fat pad. IVC: IVC is normal i n size, does not fully collapse. CONCLUSION: 1. Global left ventricular systolic function is hyperdynamic; visually estimated ejection fraction is 65 to 70% 2. The right ventric le appears enlarged with preserved systolic function 3. Normal diastolic function 4. The left atrium i s normal in size 5. Mild tricuspid regurgitation 6. Mildly elevated r ight ventricular systolic pressure; RVSP 43 mmHg 7. Anterior free spa ce; trivial effusion versus fat pad Adult Echocardiograp hy Procedure Report Left Ventricle LVEDD (3.7 - 5.6 cm) : 4.32 cm LVESD (2.2 - 4.0 cm) : 2.58 cm LVIVS thickness (0.6 - 1.2 cm): 1.01 cm LVPW thickness (0.5 - 1.0 cm): 0.98 cm e': 0.10 m/s E - e': 11.10 LVOT Max Gradient: 7 .52 mm[Hg], 7.91 mm[Hg] LVOT Area (cm2): 1.4 1 m/s, 1.37 m/s Peak Velocity (LVOT) : 1.41 m/s, 1.37 m/s Mean Velocity (LVOT) : 0.88 m/s LVOT Diameter 1.84 cm Left Atrium LA Volume Index (2D A2C): 30.38 ml/m2 Left Atrium Systolic Dimension: 4.57 cm Mitral Valve MV E to A Ratio: 0.94 Mitral Valve A-Wave Peak Velocity: 1.14 m/s Mitral Valve E-Wave Peak Velocity: 1.07 m/s Right Ventricle Aorta AO Root Diam: 3.01 cm Ascending Ao Diam: 2 .87 cm Aortic Valve AoV Area (Peak Carlos A): 1.67 cm2, 1.67 cm2, 1.63 cm2, 1.63 cm2 AoV Area (VTI): 1.86 cm2, 1.86 cm2 Peak Velocity(Antegr kenny Flow): 2.23 m/s Peak Gradient(Antegr kenny Flow): 19.94 mm[Hg] Mean Velocity(Antegr kenny Flow): 1.31 m/s Mean Gradient(Antegr kenny Flow): 8.58 mm[Hg] Velocity Time Integr al: 43.15 cm Tricuspid Valve Peak Velocity (Regurgitant Flow): 3.21 m/s, 2.96 m/s Pulmonic Valve Mean Gradient: 4.15 mm[Hg] Mean Velocity: 0.96 m/s Peak Velocity: 1.31 m/s, 1.20 m/s Peak Gradient: 6.88 mm[Hg], 5.80 mm[Hg] Right Atrium Right Atrium Systoli c Pressure: 40.94 ml, 40.94 ml Dictated by: Sendy Sanabria M.D. on 11/08/2024 at 11:45 Approved by: Sendy Sanabria M.D. on 11/08/2024 at 11:48 Dictated By: Sendy Sanabria M.D. Signed By: 11/08/24 1149 DD/ 1148 TD/TT: Brick Off Bearer: Manual Differential Reviewed date:11/08/2024 05:26:51 PM Interpretation: Performing Lab: Notes/Report: [facility] , Segmented Neutrophils % Manual 64.0 43.0-75.0 Lymphocytes Percent Manual 30.0 20.5-60.0 % Monocytes Percent Manual 6.0 1.7-12.0 % Eosinophils Percent Manual 0.0 0.9-7.0 % Basophils Percent Manual 0.0 0.2-2.0 % Segmented Neut Absolute Manual 1.28 1.4-6.5 10 3/uL Lymphocytes Absolute Manual 0.60 1.20-3.80 10 3/uL Monocytes Absolute Manual 0.12 0.30-0.80 10 3/uL Eosinophils Absolute Manual 0.00 0.00-0.70 10 3/uL Basophils Abs Manual 0.00 0.00-0.10 1 0 3/uL Anisocytosis 1+ Macrocytosis 1+ Performing Lab: see note - [facility] LB Prothrombin Time INR Reviewed date:11/08/2024 05:26:51 PM Interpretation: Performing Lab: Notes/Report: [facility] , Prothrombin Time 12.4 9.0-11.6 sec INR 1.19 DESIRED INR: 2.0-3.0 CONDITIONS NOT LISTED BELOW 2.5-3.5 FOR PROSTHETIC HEART VALVE REPLACEMENT 2.5-3.5 RECURRENT THROMBOSIS Performing Lab: see note - [facility] LB CBC AUTO DIFF Reviewed date:11/08/2024 05:26:51 PM Interpretation: Performing Lab: Notes/Report: [facility] , White Blood Count 2.0 4.0-11.0 10 3/uL Red Blood Count 2.35 4.20-5.40 10 6/uL Hemoglobin 8.5 12.0-16.0 g/dL Hematocrit 24.4 36.0-48.0 % Mean Corpuscular Volume 103.8 81.0-99.0 fL Mean Corpuscular Hemoglobin 36.2 26.7-34.0 pg Mean Corpuscular HGB Conc 34.8 29.9-35.2 g/dL Platelet Count 34 150-450 10 3/uL Performing Lab: see note - [facility] LB Vitamin B12 Reviewed date:11/09/2024 09:02:01 PM Interpretation: Performing Lab: Notes/Report: [facility] , Vitamin B12 765 382-0103 pg/mL Performed at: [place] [address] Computer Network Support Specialist: Brayan Pena PhD, Phone: [employer] Performing Lab: see note [facility] LB Haptoglobin Reviewed date:11/09/2024 09:02:01 PM Interpretation: Performing Lab: Notes/Report: [facility] , Haptoglobin <10 37-355 mg/dL Performed at: [address] [id number] Computer Network Support Specialist: Brayan Pena PhD, Phone: [employer] Performing Lab: see note [facility] LB Erythrocyte Sedimentation Ra te Reviewed date:09/07/2024 07:57:57 PM Interpretation: Performing Lab: Notes/Report: [facility] , Erythrocyte Sedimentation Rate 3 <=30 mm/hr Performing Lab: see note - [facility] LB TSH Reviewed date:09/07/2024 07:57:57 PM Interpretation: Performing Lab: Notes/Report: [facility] , Thyroid Stimulating Hormone 17.412 0.358-3.740 uIU/mL Performing Lab: see note - [facility] LB T4 Reviewed date:09/07/2024 07:57:57 PM Interpretation: Performing Lab: Notes/Report: [facility] , T4 Thyroxine 5.10 4.80-13.90 ug/dL Performing Lab: see note ML - [facility] LB PROF 14(COMP METB) Reviewed date:09/07/2024 07:57:57 PM Interpretation: Performing Lab: Notes/Report: [facility] , Sodium 146 136-145 mmol/L Potassium 4.3 3.5-5.1 mmol/L Chloride 109 98-107 mmol/L Carbon Dioxide 31.0 21.0-32.0 mmol/L Anion Gap 10.3 Glucose 103 74-106 mg/dL Blood Urea Nitrogen 11.0 7.0-18.0 mg/dL Creatinine 0.62 0.55-1.02 mg/dL Estimated GFR ( Mendy >60 >=60 mL/min/1.73m 2 Estimated GFR (Non- Radha >60 >=60 mL/min/1.73m 2 BUN Creatinine Ratio 17.7 Calcium 8.9 8.5-10.1 mg/dL Bilirubin Total 1.2 0.2-1.0 mg/dL Aspartate Amino Transferase 35 15-37 U/L Alanine Aminotransferase 31 14-59 U/L Alkaline Phosphatase 105 46-116 U/L Total Protein 6.5 6.4-8.2 g/dL Albumin Level 3.8 3.4-5.0 g/dL Globulin 2.7 Albumin Globulin Ratio 1.4 Performing Lab: see note ML - [facility] LB LIPID PROFILE Reviewed date:09/07/2024 07:57:57 PM Interpretation: Performing Lab: Notes/Report: [facility] , Triglycerides 154 <=150 mg/dL Cholesterol 141 <=200 mg/dL HDL Cholesterol 31 40-60 mg/dL > or =60 mg/dl - LOW CARDIOVASCULAR RISK <40 mg/dl - HIGH CARDIOVASCULAR RISK LDL Cholesterol Calculated 80.0 <100 mg/dl OPTIMAL 100-129 mg/dl NEAR OR ABOVE OPTIMAL 130-159 mg/dl BORDERLINE HIGH 160-189 mg/dl HIGH >190 mg/dl VERY HIGH VLDL CHOLESTEROL 30.8 Chol HDL Ratio 4.5 3.3 - 4.4 LOW RISK 4.4 - 7.1 AVERAGE RISK 7.1 - 11.0 MODERATE RISK >11.0 HIGH RISK Performing Lab: see note ML - [facility] LB IRON Reviewed date:09/07/2024 07:57:57 PM Interpretation: Performing Lab: Notes/Report: [facility] , Iron 134.0 50.0-170.0 ug/dL Performing Lab: see note - [facility] LB GLYCOHEMOGLOBIN A1C Reviewed date:09/07/2024 07:57:57 PM Interpretation: Performing Lab: Notes/Report: [facility] , Glycohemoglobin A1C 7.0 4.5-6.2 % ADA RECOMMENDED LIMIT 4.0 - 6.0 ADA THERAPEUTIC TARGET < 7.0 ACTION SUGGESTED > 7.0 Estimated Average Glucose 154 Performing Lab: see note - [facility] FREE T3 Reviewed date:09/07/2024 07:57:57 PM Interpretation: Performing Lab: Notes/Report: [facility] , Free T3 1.62 2.18-3.98 pg/mL Performing Lab: see note - [facility] FL small bowel follow throug h Reviewed date:11/24/2023 12:33:15 PM Interpretation: Performing Lab: Notes/Report: Source Facility: [place] [address] Fluoroscopy Report Signed Patient: ANDREIA THOMAS MR#: [id number] : 1965 Acct:[id number] Age/Sex: 58 / F ADM Date: 11/24/23 Loc: [place] Attending Dr: Kaitlyn Downing M.D. Ordering Physician: Kaitlyn Downing M.D. Date of Service: 11/24/23 Procedure(s): FL small bowel follow through Accession Number(s): [id number] cc: Kaitlyn Downing M.D. [place] [address] Patient Name: ANDREIA THOMAS MRN: [id number] date: 1965 Sex: F Assigned Patient Location: [facility] Current Patient Location: [place] Accession/Order Number: [id number] Exam Date: 11/24/2023 08:20 Report Date: 11/24/2023 10:31 At the request of: KAITLYN DOWNING Procedure: FL small bowel follow through EXAMINATION: FL upper GI w air, FL small bowel follow through, FL cineradiography HISTORY: Gastroesophageal Reflux Disease K21.9 COMPARISON: No relevant comparison available. TECHNIQUE: Upper GI and small bowel series was performed in the usual manner. Standard level fluoroscopic mode of operation utilized. FINDINGS: ESOPHAGUS: Normal. No visible obstruction, dilatation, reflux or hernia. STOMACH: Normal. No obstruction, mass, or ulceration. Normal motility. DUODENUM: Normal. No ulceration or diverticulum. JEJUNUM: Normal. Normal motility. No obstruction or visible lesion. ILEUM: Normal. Normal motility. No obstruction or visible lesion. OTHER: Pattern Duplicator image demonstrates rotatory dextrocurvature of the spine. Surgical clips from cholecystectomy. Degenerative spondylosis. Small bowel transit time between 30 and 45 minutes FL/FL small bowel follow through IMPRESSION: Normal upper GI and small bowel follow-through Electronically authenticated by: GUERRERO VELASQUEZ Date: 11/24/2023 10:31 Dictated By: Guerrero Velasquez M.D. Signed By: 11/24/23 1034 DD/ 1031 TD/TT: Brick Off Bearer: [place] [address] Fluoroscopy Report Signed Patient: TY THOMAS MR#: [id number] : 1965 Acct:[id number] Age/Sex: 58 / F ADM Date: 11/24/23 Loc: [place] Att[place] Dr: Monica Downing M.D. Ordering Physician: Kaitlyn Downing M.D. Date of Service: 11/24/23 Procedure(s): FL sma ll bowel follow through Accession Number(s): [id number] cc: Kaitlyn Downing M.D. [place] [address] Patient Name: ANDREIA THOMAS MRN: [id number] date: 1965 Sex: F Assigned Patient Location: [facility] Current Patient Location: [facility] Accession/Order Numb er: [id number] Exam Date: 11/24/2023 08:20 Report Date: 11/24/2023 10:31 At the request of: KAITLYN DOWNING Procedure: FL small bowel follow through EXAMINATION: FL uppe r GI w air, [place] small bowel follow through, [place] cineradiography HISTORY: Gastroesophageal Reflux Disease K21.9 COMPARISON: No relev ant comparison available. TECHNIQUE: Upper GI and small bowel series was performed in the usual manner. Standard level fluoroscopic mode of operation utilized. FINDINGS: ESOPHAGUS: Normal. N o visible obstruction, dilatation, reflux or hernia. STOMACH: Normal. No obstruction, mass, or ulceration. Normal motility. DUODENUM: Normal. No ulceration or diverticulum. JEJUNUM: Normal. Nor mal motility. No obstruction or visible lesion. ILEUM: Normal. Bety l motility. No obstruction or visible lesion. OTHER: Pattern Duplicator image demonstrates rotatory dextrocurvature of the spine. Surgical clips from cholecystectomy. Degenerative spondylosis. Small bowel transit time between 30 and 45 minutes F L/FL small bowel follow through IMPRESSION: Normal upper GI and small bowel follow-through Electronically authenticated by: GUERRERO VELASQUEZ Date: 11/24/2023 10:31 Dictated By: Scott Velasquez M.D. Signed By: 11/24/23 1034 DD/ 1031 TD/TT: Brick Off Bearer: [place] upper GI w air Reviewed date:11/24/2023 12:33:15 PM Interpretation: Performing Lab: Notes/Report: Source Facility: [place] [address] Fluoroscopy Report Signed Patient: ANDREIA THOMAS MR#: [id number] : 1965 Acct:[id number] Age/Sex: 58 / F ADM Date: 11/24/23 Loc: [place] Attending Dr: Kaitlyn Downing M.D. Ordering Physician: Kaitlyn Downing M.D. Date of Service: 11/24/23 Procedure(s): [place] upper GI w air Accession Number(s): [id number] cc: Kaitlyn Downing M.D. [place] [address] Patient Name: ANDREIA THOMAS MRN: [id number] date: 1965 Sex: F Assigned Patient Location: [facility] Current Patient Location: [facility] Accession/Order Number: [id number] Exam Date: 11/24/2023 08:20 Report Date: 11/24/2023 10:31 At the request of: KAITLYN DOWNING Procedure: FL upper GI w air EXAMINATION: FL upper GI w air, FL small bowel follow through, FL cineradiography HISTORY: Gastroesophageal Reflux Disease K21.9 COMPARISON: No relevant comparison available. TECHNIQUE: Upper GI and small bowel series was performed in the usual manner. Standard level fluoroscopic mode of operation utilized. FINDINGS: ESOPHAGUS: Normal. No visible obstruction, dilatation, reflux or hernia. STOMACH: Normal. No obstruction, mass, or ulceration. Normal motility. DUODENUM: Normal. No ulceration or diverticulum. JEJUNUM: Normal. Normal motility. No obstruction or visible lesion. ILEUM: Normal. Normal motility. No obstruction or visible lesion. OTHER: Pattern Duplicator image demonstrates rotatory dextrocurvature of the spine. Surgical clips from cholecystectomy. Degenerative spondylosis. Small bowel transit time between 30 and 45 minutes FL/FL upper GI w air IMPRESSION: Normal upper GI and small bowel follow-through Electronically authenticated by: GUERRERO VELASQUEZ Date: 11/24/2023 10:31 Dictated By: Guerrero Velasquez M.D. Signed By: 11/24/23 1034 DD/ 1031 TD/TT: Brick Off Bearer: [place] [address] Fluoroscopy Report Signed Patient: TY THOMAS MR#: [id number] : 1965 Acct:[id number] Age/Sex: 58 / F ADM Date: 11/24/23 Loc: [facility] Att[facility] Dr: Monica Downing M.D. Ordering Physician: Kaitlyn Downing M.D. Date of Service: 11/24/23 Procedure(s): FL upp er GI w air Accession Number(s): [id number] cc: Kaitlyn Downing M.D. [address] [address] Patient Name: ANDREIA THOMAS MRN: [id number] date: 1965 Sex: F Assigned Patient Location: [facility] Current Patient Location: [facility] Accession/Order Numb er: [id number] Exam Date: 11/24/2023 08:20 Report Date: 11/24/2023 10:31 At the request of: KAITLYN DOWNING Procedure: FL upper GI w air EXAMINATION: FL uppe r GI w air, FL small bowel follow through, FL cineradiography HISTORY: Gastroesophageal Reflux Disease K21.9 COMPARISON: No relev ant comparison available. TECHNIQUE: Upper GI and small bowel series was performed in the usual manner. Standard level fluoroscopic mode of operation utilized. FINDINGS: ESOPHAGUS: Normal. N o visible obstruction, dilatation, reflux or hernia. STOMACH: Normal. No obstruction, mass, or ulceration. Normal motility. DUODENUM: Normal. No ulceration or diverticulum. JEJUNUM: Normal. Nor mal motility. No obstruction or visible lesion. ILEUM: Normal. Bety l motility. No obstruction or visible lesion. OTHER: Pattern Duplicator image demonstrates rotatory dextrocurvature of the spine. Surgical clips from cholecystectomy. Degenerative spondylosis. Small bowel transit time between 30 and 45 minutes F L/FL upper GI w air IMPRESSION: Normal upper GI and small bowel follow-through Electronically authenticated by: GUERRERO VELASQUEZ Date: 11/24/2023 10:31 Dictated By: Scott Velasquez M.D. Signed By: 11/24/23 1034 DD/ 1031 TD/TT: Brick Off Bearer: [facility] cineradiography Reviewed date:11/24/2023 12:33:15 PM Interpretation: Performing Lab: Notes/Report: Source Facility: [place] [address] [place] [address] Fluoroscopy Report Signed Patient: ANDREIA THOMAS MR#: [id number] : 1965 Acct:[id number] Age/Sex: 58 / F ADM Date: 11/24/23 Loc: [place] Att[place] Dr: Kaitlyn Downing M.D. Ordering Physician: Kaitlyn Downing M.D. Date of Service: 11/24/23 Procedure(s): [place] cineradiography Accession Number(s): [id number] cc: Kaitlyn Downing M.D. [place] [address] Patient Name: ANDREIA THOMAS MRN: [id number] date: 1965 Sex: F Assigned Patient Location: [facility] Current Patient Location: [facility] Accession/Order Number: [id number] Exam Date: 11/24/2023 08:20 Report Date: 11/24/2023 10:31 At the request of: KAITLYN DOWNING Procedure: FL cineradiography EXAMINATION: FL upper GI w air, FL small bowel follow through, FL cineradiography HISTORY: Gastroesophageal Reflux Disease K21.9 COMPARISON: No relevant comparison available. TECHNIQUE: Upper GI and small bowel series was performed in the usual manner. Standard level fluoroscopic mode of operation utilized. FINDINGS: ESOPHAGUS: Normal. No visible obstruction, dilatation, reflux or hernia. STOMACH: Normal. No obstruction, mass, or ulceration. Normal motility. DUODENUM: Normal. No ulceration or diverticulum. JEJUNUM: Normal. Normal motility. No obstruction or visible lesion. ILEUM: Normal. Normal motility. No obstruction or visible lesion. OTHER: Pattern Duplicator image demonstrates rotatory dextrocurvature of the spine. Surgical clips from cholecystectomy. Degenerative spondylosis. Small bowel transit time between 30 and 45 minutes FL/FL cineradiography IMPRESSION: Normal upper GI and small bowel follow-through Electronically authenticated by: GUERRERO VELASQUEZ Date: 11/24/2023 10:31 Dictated By: Guerrero Velasquez M.D. Signed By: 11/24/23 1034 DD/ 1031 TD/TT: Brick Off Bearer: [place] [address] Fluoroscopy Report Signed Patient: TY THOMAS MR#: [id number] : 1965 Acct:[id number] Age/Sex: 58 / F ADM Date: 11/24/23 Loc: [facility] Att[facility] Dr: Monica Downing M.D. Ordering Physician: Kaitlyn Downing M.D. Date of Service: 11/24/23 Procedure(s): FL cineradiography Accession Number(s): [id number] cc: Kaitlyn Downing M.D. The [address] [address] Patient Name: ANDREIA THOMAS MRN: [id number] date: 1965 Sex: F [facility] Accession/Order Numb er: [id number] Exam Date: 11/24/2023 08:20 Report Date: 11/24/2023 10:31 At the request of: KAITLYN DOWNING Procedure: FL cineradiography EXAMINATION: FL uppe r GI w air, FL small bowel follow through, FL cineradiography HISTORY: Gastroesophageal Reflux Disease K21.9 COMPARISON: No relev ant comparison available. TECHNIQUE: Upper GI and small bowel series was performed in the usual manner. Standard level fluoroscopic mode of operation utilized. FINDINGS: ESOPHAGUS: Normal. N o visible obstruction, dilatation, reflux or hernia. STOMACH: Normal. No obstruction, mass, or ulceration. Normal motility. DUODENUM: Normal. No ulceration or diverticulum. JEJUNUM: Normal. Nor mal motility. No obstruction or visible lesion. ILEUM: Normal. Bety l motility. No obstruction or visible lesion. OTHER: Pattern Duplicator image demonstrates rotatory dextrocurvature of the spine. Surgical clips from cholecystectomy. Degenerative spondylosis. Small bowel transit time between 30 and 45 minutes F L/FL cineradiography IMPRESSION: Normal upper GI and small bowel follow-through Electronically authenticated by: GUERRERO VELASQUEZ Date: 11/24/2023 10:31 Dictated By: Scott Velasquez M.D. Signed By: 11/24/23 1034 DD/ 1031 TD/TT: Brick Off Bearer: NKECHI Reviewed date:09/07/2024 07:57:57 PM Interpretation: Performing Lab: Notes/Report: [facility] , NT Pro B Type Natriuretic Pept 168.0 <=900.0 pg/mL Performing Lab: see note ML - [facility] Reason For Referral Diagnosis 1 GERD (gastroesophage al reflux disease) (K21.9) Referral Organization [facility] Referring Provider First Name Salazar Referring Provider Last Name Salina Referring Provider Speciality Family [facility] alexandra Referred Provider Kenan Wynne Referred Provider Specialty General Surg eugenia Referral Priority Routine Medications Medication SIG (Take, Route, Frequency, Duration) Notes Start Date End Date Status Pyridium 200 MG 1 tablet after meals Orally Three times a day for 2 days 09/28/2024 Active Protonix 40 MG 2 tablet Orally Once a day for 30 days 04/04/2024 Active Meclizine HCl 25 MG 1 tablet as needed Orally Q 6 hours PRN 04/04/2024 Active Levothyroxine Sodium 150 MCG 1 tablet Or ally in the morning on an empty stomach for 90 days Active DULoxetine HCl 30 MG 1 capsule Orally On ce a day for 30 day(s) 07/03/2024 Active clonazePAM 2 MG 2-3 Oral daily for 9 0 days 09/13/2024 Active Vitamin D 50 MCG (1999) 1 tablet Oral ly Once a day for 90 day(s) 09/08/2024 Active Liothyronine Sodium 5 MCG TAKE 2 TABLETS DAILY Active Esomeprazole Magnesium 40 MG 1 capsule 1 /2 to 1 hour before morning meal Orally Once a day Active Sucralfate 1 GM 1 tablet on an empty stomach Orally qid for 30 days 05/10/2024 Active Rosuvastatin Calcium 5 mg TAKE 1 TABLET DAILY Active Reglan 10 MG 1 tablet before meal s Orally ac and hs for 7 days 07/03/2024 Active Ondansetron 4 MG 1 tablet on the tong ue and allow to dissolve Orally qid 11/06/2024 Active Social History Tobacco Use: Social History Observation Description Date Details (start date - stop date) Current Smoker 06/28/1974 - NA Tobacco Use/Smoking Question Answer Notes Patient is a current smoker When did you start smoking? 06/28/1974 How often do you smoke cigarettes? every day How many cigarettes a day do you smoke? 11-20 How soon after you wake up do you smoke your fir st cigarette? 6-30 minutes Are you interested in quitting? Not ready to carla t Alcohol Screen (Audit-C) Question Answer Notes Did you have a drink containing alcohol in the p ast year? No Points 0 Interpretation Negative AUDIT-C (Standard) Question Answer Notes Did you have a drink containing alcohol in the p ast year? No Points 0 Interpretation Negative Problems Problem Type SNOMED Code ICD Code Onset Dates Problem Status W/U Status Risk Notes Problem [id number] Unspecified nonsuppurative otitis media, left ear (H65.92) Active confirmed Problem 699272164 Other diseases o f tongue (K14.8) Active confirmed Problem Palpitations (30980437) Palpitations (R00.2) Active confirmed Problem 98586318 Nasal congestion (R09.81) Active confirmed Problem 913225251 Solitary pulmona ry nodule (R91.1) Active confirmed Problem Gastroesophageal reflux disease (179027001) GERD (gastroesophageal reflux disease) (K21.9) Active confirmed Problem Hypothyroid (03115527) Hypothyroid (E03.9) Activ e confirmed Problem Sleep apnea (34935454) Sleep clinical quality analyst ea (G47.30) Active confirmed Problem Vertigo (436796788) Vertigo (R42) Active confir med Problem Elevated liver enzym es level (561204475) Elevated liver enzymes (R74.8) Active confirmed Problem Vitamin D deficiency (02699017) Vitamin D deficiency (E55.9) Active confirmed Problem Arthralgia (15471635) Arthralgia (M25.50) Active confirmed Problem Allergic rhinitis (07173035) Allergic rhinitis (J30.9) Active confirmed Problem Cervical disc diseas e (383805030) Cervical disc disease (M50.90) Active confirmed Problem Cellulitis (185215038) Cellulitis (L03.90) Activ e confirmed Problem Degenerative disc disease (53039633) DDD (degenerative disc disease), lumbar (M51.36) Active confirmed Problem Tobacco user (032128695) Cigarette nicotine dependence without complication (F17.210) Active confirmed Problem Thrombocytopenia (857418577) Thrombocytopenia (D69.6) Active confirmed Problem Diabetic neuropathy (704124358) Diabetic neuropathy (E11.40) Active confirmed Problem Neutropenia (111976442) Neutropenia (D70.9) Active confirmed Problem Diverticular disease of colon (398200225) Diverticula of colon (K57.30) Active confirmed Problem Anemia (903151209) Severe anemia (D64.9) Active confirmed Problem Abnormal hemoglobin (4774678) Abnormal hemoglobin (D58.2) Active confirmed Problem SI - Stress incontinence (01558959) Stress incontinence (N39.3) Active confirmed Problem Acute urinary tract infection (923299396) Acute UTI (N39.0) Active confirmed Problem Agoraphobia (38886509) Agoraphob ia (F40.00) Active confirmed Problem 58847272 Acute non-recurr ent sinusitis, unspecified location (J01.90) Active confirmed Problem hypercholesterolemia (disorder) (65416819) Hypercholesteremia (E78.00) Active confirmed Problem Type II diabetes mellitus without complication (748886890) Controlled type 2 diabetes mellitus (E11.9) Active confirmed Problem Thyromegaly (8650890) Thyromegaly (E01.0) Active confirmed Vital Signs Blood pressure diastolic 64 mm Hg 11/06/2024 Height 62 in 11/06/2024 Blood pressure systolic 104 mm Hg 11/06/2024 Weight 156.6 lbs 09/27/2024 BMI 28.64 kg/m2 09/27/2024 Encounters Encounter Location Date Provider Diagnosis [facility] [address] [facility] [place] [address] 11/09/2024 [facility] [address] [facility] [place] [address] 11/09/2024 [facility] [address] [place] [address] 11/14/2024 [facility] [address] [place] [address] 11/15/2024 Salazar [facility] [address] [place] [address] 11/16/2024 Salazar [facility] [address] [place] [address] 09/07/2024 Salazar Downing Abnormal hemoglobin D58.2 [facility] [address] [place] [address] 09/27/2024 Salazar Downing Acute non-recurrent sinusitis, unspecified location J01.90 [facility] [address] [facility] [place] [address] 09/28/2024 Salazar [facility] [address] [place] [address] 10/10/2024 Salazar [facility] [address] [place] [address] 10/18/2024 [facility] [address] [place] [address] 11/06/[address] [facility] [address] [place] [address] 04/28/2024 Salazar Downing Cigarette nicotine dependence without complication F17.210 [facility] [address] [place] [address] 05/11/[address] [facility] [address] [place] [address] 05/14/[address] [facility] [address] [place] [address] 06/30/2024 Salazar Downing Controlled type 2 diabetes mellitus E11.9 [facility] [address] [place] [address] 08/01/[address] [facility] [address] [place] [address] 08/28/2024 Salazar Downing Wellness examination Z01.89 [facility] [address] [place] [address] 01/07/[address] [facility] [address] [place] [address] 01/10/[address] [facility] [address] [place] [address] 01/10/2024 Salazar Downing Controlled type [address] [facility] [address] [place] [address] 01/14/2024 Salazar Churchy [facility] [address] [place] [address] 02/10/[address] [facility] [address] [place] [address] 02/25/2024 Salazar Downing Controlled type 2 diabetes mellitus E11.9 [facility] [address] [place] [address] 11/24/2023 KAITLYN DOWNING [facility] [address] [place] [address] 12/23/[address] [facility] [address] [place] [address] 12/28/[address] [facility] [address] [place] [address] 12/30/[address] [facility] [address] [place] [address] 01/04/[address] [facility] [address] [place] [address] 02/15/2024 Salazar Churchy Controlled type [address] [facility] [address] [place] [address] 04/04/2024 Salazar Downing Acute non-recurrent sinusitis, unspecified location J01.90 ; Nasal congestion R09.81 ; Vertigo R42 ; GERD (gastroesophageal reflux disease) K21.9 and Diabetic neuropathy E11.40 [facility] [address] [place] [address] 05/10/2024 Salazar Hoy GERD (gastroesophage al reflux disease) K21.9 [facility] [address] [place] [address] 07/03/2024 Salazar Hoy GERD (gastroesophage al reflux disease) K21.9 ; Hypothyroid E03.9 ; Controlled type 2 diabetes mellitus E11.9 ; Solitary pulmonary nodule R91.[address] [facility] [address] [place] [address] 09/27/2024 Salazar Hoy Hypothyroid E03.9 an d GERD (gastroesophageal reflux disease) K21.9 [facility] [address] [place] [address] 11/06/2024 Salazar Hoy GERD (gastroesophage al reflux disease) K21.9 ; Elevated liver enzymes R74.[address] [facility] [address] [place] [address] 01/10/2024 Salazar Hoy Controlled type 2 diabetes mellitus E11.[address] [facility] [address] [place] [address] 09/05/2024 Salazar Hoy Palpitations R00.2 ; GERD (gastroesophageal reflux disease) K21.9 and Hypothyroid E03.9 [facility] [place] [address] [place] [address] 12/28/2023 Salazar Hoy Cellulitis L03.90 Assessments Encounter Date Diagnosis (ICD Code) Assessment Notes Treatment Notes Treatment Clinical Notes Section Notes 12/28/2023 Cellulitis (ICD-10 - L03.90) 01/10/2024 Controlled type 2 diabetes mellitus (ICD-10 - E11.9) 01/10/2024 Cellulitis (ICD-10 - L03.90) 02/15/2024 Controlled type 2 diabetes mellitus (ICD-10 - E11.9) Sugars up - inc to 26 U [employer]glee 04/04/2024 Acute non-recurrent sinusitis, unspecified location (ICD-10 - J01.90) Rest and drink more liquids, especially water. You may use a humidifier or vaporizer to help keep the drainage moist. Ntlk-vqk-jabaqmj Nasal Saline may help the stuffy and runny nose. Use Ibuprofen and or Tylenol as needed for fever, chills, body aches or pain. Children 5 years old should not be given lewo-rwo-dlqxfpg cough and cold medications such as guaifenesin and dextromethorphan. If you're over age 5, you may try iozb-qeq-crixday cold medications such as guaifenesin and dextromethorphan, or multi-symptom cold reliever such as Dayquil to help reduce the symptoms. Antibiotics have been prescribed. You should take these until completed and follow the directions. Antibiotics can sometimes cause upset stomach, and in rare cases, serious allergic reactions or serious gastrointestinal problems. If you start having severe abdominal pain, severe vomiting, or bloody diarrhea, you should be reevaluated by your physician or urgent care immediately. Follow up with your Primary Care Provider or return to clinic if symptoms do not improve within 3-5 days 04/04/2024 Nasal congestion (ICD-10 - R09.81) 05/10/2024 GERD (gastroesophagea l reflux disease) (ICD-10 - K21.9) 07/03/2024 GERD (gastroesophagea l reflux disease) (ICD-10 - K21.9) 07/03/2024 Hypothyroid (ICD-10 - E03.9) 09/05/2024 Palpitations (ICD-10 - R00.2) 09/05/2024 GERD (gastroesophagea l reflux disease) (ICD-10 - K21.9) 09/27/2024 Hypothyroid (ICD-10 - E03.9) 09/27/2024 GERD (gastroesophagea l reflux disease) (ICD-10 - K21.9) 11/06/2024 GERD (gastroesophagea l reflux disease) (ICD-10 - K21.9) 11/06/2024 Elevated liver enzymes (ICD-10 - R74.8) 01/10/2024 Controlled type 2 diabetes mellitus (ICD-10 - E11.9) 02/25/2024 Controlled type 2 diabetes mellitus (ICD-10 - E11.9) 04/28/2024 Cigarette nicotine dependence without complication (ICD-10 - F17.210) 06/30/2024 Controlled type 2 diabetes mellitus (ICD-10 - E11.9) 08/28/2024 Wellness examination (ICD-10 - Z01.89) 09/07/2024 Abnormal hemoglobin (ICD-10 - D58.2) 09/27/2024 Acute non-recurrent sinusitis, unspecified location (ICD-10 - J01.90) 11/06/2024 Hypothyroid (ICD-10 - E03.9) 09/05/2024 Hypothyroid (ICD-10 - E03.9) 07/03/2024 Controlled type 2 diabetes mellitus (ICD-10 - E11.9) 04/04/2024 Vertigo (ICD-10 - R42) 04/04/2024 GERD (gastroesophagea l reflux disease) (ICD-10 - K21.9) 07/03/2024 Solitary pulmonary nodule (ICD-10 - R91.1) 07/03/2024 Vertigo (ICD-10 - R42) 04/04/2024 Diabetic neuropathy (ICD-10 - E11.40) Plan Of Treatment Pending Test Test Name Order Date CMP (COMPLETE METABOLIC PANEL) HEMOGLOBIN A1C (GLYCO) 09/05/2024 IRON, TOTAL 09/05/2024 IRON, TOTAL 11/06/2024 LIPID PANEL (CHOL/TRIG/HDL/LDL) 09/06/19 25 VITAMIN D, 25 LEVEL (TOTAL) 09/05/2024 T3 FREE, T4 FREE and TSH 09/17/2023 FECAL OCCULT BLOOD 09/17/2023 FECAL OCCULT BLOOD 08/28/2024 CMP - Comprehensive Metabolic Panel 08/2024 CT Chest Low Dose for Screening* 023 CBC W/AUTO DIFF 09/07/2024 FLUORO UPPER GI WITH AIR WITH KUB AND SM ALL BOWEL 12/04/2022 STOOL OCCULT BLOOD 09/05/2024 BNP 11/06/2024 CBC AUTO DIFF 08/28/2024 GLYCOHEMOGLOBIN A1C 08/28/2024 LIPID PROFILE 08/28/2024 PROTIME 11/06/2024 SED RATE WESTERGREN 09/05/2024 US DVAI DOP LEG LT 12/28/2023 XR ANKLE LT MIN 3 V 12/28/2023 XR GI UPPER AIR KUB DUAL CONTRAST 2023 XR SMALL BOWEL FOLLOW THOUGH 11/11/2023 XR TIB_FIB LT 2V 12/28/2023 THYROID PANEL (T4/TSH/FREE T3) 5 THYROID PANEL (T4/TSH/FREE T3) 5 THYROID PANEL (T4/TSH/FREE T3) 5 CT LUNG CANCER SCREENING 04/28/2024 CMP (COMP MET RAMOS) w/eGFR CKD-EPI 2024 CMP (COMP MET RAMOS) w/eGFR CKD-EPI 2024 CBC WITH DIFF 09/05/2024 CBC WITH DIFF 11/06/2024 Next Appt Details Provider Name:Salazar Downing, 02:00:00 PM, [address] [place], [address], Insurance Providers Payer Name Payer Address Payer Phone Subscriber Number Group Number Insured Name Patient Relationship to Insured Coverage Start Date Coverage End Date MMO [employer] [address] [place] [address] [id number] Yemi Thomas Spouse - patient is the spouse of the insured Medical (General) History Medical History History ICD Code GI bleed K92.2 Colon polyps K63.5 Meniscus tear S83.209A Elevated liver enzymes R74.8 Arthralgia M25.50 Gastritis K29.70 Vitamin D deficiency E55.9 Pancreatitis 577.0 Vertigo R42 Near syncope R55 Diverticula of colon K57.30 Stress incontinence N39.3 Controlled type 2 diabetes mellitus E11. 9 Cervical disc disease M50.90 DDD (degenerative disc disease), lumbar M51.36 Diverticula of colon K57.30 Hyperplastic colonic polyp K63.5 Thyromegaly E01.0 Sleep apnea G47.30 GERD (gastroesophageal reflux disease) K 21.9 Palpitations R00.2 Agoraphobia F40.00 Hypercholesteremia E78.00 Hypothyroid E03.9 Allergic rhinitis J30.9 Surgical History Surgery Date(Month/Year) EGD 10/16/24 Appendix Right Knee Left Foot Right Wrist Tonsills Total Hysterectomy ORIF Tarsal Metatarsal
--- OUTSIDE RECORDS SUMMARY | 2024-11-17 07:41 | XMS_ITS | Clinical Summary ---
Author Organization [facility] Address [address] [place] [address] Care Team Providers Care Automotive Lube Technician Name Role Phone Henrik Downing MD Primary Care Provider [phone] Allergies Active Allergy Reactions Criticality Noted Date Comments Simvastatin 04/29/2023 Other Reaction(s): Unknown Sulfa Antibiotics 11/14/2017 Other Reaction(s): Unknown, Vomiting Trimethoprim 04/29/2023 Other Reaction(s): Unknown Medications albuterol HFA (Proventil HFA) 90 mcg/act inhaler every 4 (four) hours. Active CeleXA 20 MG tablet 1 (one) time each day at the same time. Active KlonoPIN 2 MG tablet every 8 (eight) hours. Active levothyroxine (Synthroid, Levoxyl) 100 MCG tablet Take 125 mcg by mouth in the morning. Active liothyronine (Cytomel) 5 MCG tablet 1 (one) time each day at the same time. Active rosuvastatin (Crestor) 10 MG tablet Take 10 mg by mouth in the morning. Active rosuvastatin (Crestor) 5 MG tablet 1 (one) time each day at the same time. Active glipiZIDE XL (Glucotrol XL) 5 MG 24 hr tablet Take 5 mg by mouth in the morning. Do not crush, chew, or split. . Active fluticasone (Flonase) 50 MCG/ACT nasal sprayIndications: Chronic pansinusitis Administer 2 sprays into each nostril in the morning. Shake gently. Before first use, prime pump. After use, clean tip and replace cap.. 16 g 11 3 Active cetirizine (ZyrTEC) 10 MG tabletIndications :Chronic pansinusitis Take 1 tablet (10 mg) by mouth Daily as needed for allergies. 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 04/29/2023 Other atopic dermatitis 04/29/2023 Chronic laryngitis 04/29/2023 Chronic rhinitis 04/29/2023 Other chronic sinusitis 04/29/2023 Pain in right knee 04/29/2023 Peripheral vertigo 04/29/2023 Pure hypercholesterolemia 04/29/2023 Sleep apnea 04/29/2023 Spondylosis of lumbosacral region 04/29/2023 Squamous cell carcinoma of skin of trunk 023 Hypothyroidism 04/29/2023 Thyromegaly 04/29/2023 DDD (degenerative disc disease), cervical 2022 DDD (degenerative disc disease), lumbar 04/29/20 23 Resolved Problems Problem Noted Date Diagnosed Date Resolved Date 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 04/29/2023 Immunizations Immunization Administration Dates Next Due Tdap 01/31/2010 Family History Medical History Relation Name Comments Cancer Father Diabetes Mother Hypertension Mother Brain cancer Sister Diabetes Sister Hypertension Sister Multiple myeloma Neg Hx Relation Name Status Comments Father Alive Mother Alive Sister Social History Tobacco Use Types Packs/Day Years Used Date Smoking Tobacco: Every Day Cigarettes Smokeless Tobacco: Never Tobacco Cessation:Ready to Q uit: Not Asked; Counseling Given: Not Answered Alcohol Use Standard Drinks/Week Comments Not Currently 0 (1 standard drink = 0.6 oz pur e alcohol) caffeine: yes, coffee Comments Unknown Sex and Gender Information Value Date Recorded Sex Assigned at Not on file Legal Sex Female 6:59 PM EDT Gender Identity Not on file Sexual Orientation Not on file Last Filed Vital Signs Vital Sign Reading Time Taken Comments Blood Pressure 145/83 08/25/2023 9:03 AM EST Pulse - - Temperature - - Respiratory Rate - - Oxygen Saturation - - Inhaled Oxygen Concentration - - Weight 74.8 kg (165 lb) 08/25/2023 9:03 AM EST Height 157.5 cm (5' 2 ) 08/25/2023 9:03 AM EST Body Mass Index 30.18 08/25/2023 9:03 AM EST Plan of Treatment Upcoming Encounters Date Type Department Care Team (Late st Contact Info) Description 12/27/2024 9:00 AM EDT Office Visit [facility] [address] [place] [address] Misty Peng MD [address] [place] [address] Health Maintenance Due Date Last Done Comments CT Colonography 1965 Colonoscopy 1965 Colorectal Cancer Screening 1965 FIT-DNA 1965 FIT 1965 FOBT 1965 Sigmoidoscopy 1965 Pap Smear 1984 Cervical Cancer Screening 1993 HPV/Cotest 1993 Mammogram 2003 Influenza Vaccine (Season Ended) 2025 05/29/2021, 05/16/2018, 05/04/2018, Additional history exists Insurance [employer] Care Teams Automotive Lube Technician Relationship Specialty Start Date End Date Henrik Downing MD PCP - General Family Medicine 05/03/23
--- OUTSIDE RECORDS SUMMARY | 2024-11-17 07:41 | XMS_ITS | Clinical Summary ---
Author Organization [facility] Address [address] [place] [address] Care Team Providers Care Salon Assistant Name Role Phone Unavailable Primary Care Provider Unavailabl e Allergies Active Allergy Reactions Criticality Noted Date Comments Simvastatin Unknown 04/29/2023 Other Reaction(s): Unknown Sulfa (Sulfonamide Antibiotics) Vomiting 11/14/2017 Other Reaction(s): Unknown, Vomiting Trimethoprim Unknown 04/29/2023 Other Reaction(s): Unknown Medications levothyroxine (SYNTHROID) 100 mcg tablet Take 125 mcg by mouth once daily. Active liothyronine (CYTOMEL) 5 mcg tablet Take 5 mcg by mouth once daily. Active rosuvastatin (CRESTOR) 5 mg tablet Take 5 mg by mouth once daily. 03/29/[address] (PROTONIX) 40 mg tablet Take 2 tablets by mouth once daily. 09/27/2024 Active RESTASIS 0.05 % ophthalmic emulsion Use 1 drop in both eyes two times a day. 08/09/2024 Active CELEXA 20 mg tablet Take 20 mg by mouth once daily. 12/07/2018 Active KLONOPIN 2 mg tablet Take 2 mg by mouth three times a day as needed for anxiety. 11/23/2018 Active cholecalciferol (VITAMIN D3) 50 mcg (2,000 unit) tablet Take 2,000 Units by mouth once daily. 09/08/2024 Active Active Problems Problem Noted Date Diagnosed Date Vitamin D deficiency 11/08/2024 Vertigo 11/08/2024 Type 2 diabetes mellitus without complications 0 11/08/2024 Tobacco user 11/08/2024 Stress incontinence of urine 11/08/2024 Solitary pulmonary nodule 11/08/2024 Elevated liver enzymes 11/08/2024 Diverticular disease of colon 11/08/2024 Diabetic neuropathy 11/08/2024 Agoraphobia 11/08/2024 Abnormal hemoglobin 11/08/2024 Gastroesophageal reflux disease 04/29/2023 Hypothyroidism 04/29/2023 Pure hypercholesterolemia 04/29/2023 Sleep apnea 04/29/2023 DDD (degenerative disc disease), lumbar 04/29/20 23 DDD (degenerative disc disease), cervical 2022 Squamous cell carcinoma of skin of trunk 023 Peripheral vertigo 04/29/2023 Other atopic dermatitis 04/29/2023 Encounters Date Type Department Care Team Description 11/08/2024 [place] [address] Gael Pandey MD from Last 3 Months Immunizations Immunization Administration Dates Next Due tetanus diphtheria pertussis (Tdap) vaccine, age 7+ yr (ADACEL, BOOSTRIX) 01/31/2010 Social History Tobacco Use Types Packs/Day Years Used Date Smoking Tobacco: Never Assessed Comments Unknown Sex and Gender Information Value Date Recorded Sex Assigned at Not on file Legal Sex Female 7:19 AM EDT Gender Identity Not on file Sexual Orientation Not on file Last Filed Vital Signs Vital Sign Reading Time Taken Comments Blood Pressure 116/75 11/08/2024 7:22 AM EDT Pulse 87 11/08/2024 7:22 AM EDT Temperature 36.7 C (98.1 F) 11/08/2024 7:22 AM EDT Respiratory Rate 16 11/08/2024 7:22 AM EDT Oxygen Saturation 90% 11/08/2024 7:22 AM EDT Inhaled Oxygen Concentration - - Weight 65 kg (143 lb 4.8 oz) 11/08/2024 7:22 AM EDT Height - - Body Mass Index - - Plan of Treatment Not on file Procedures Procedure Name Priority Date/Time Associated Diagnosis Comments CT OUTSIDE CD DICOM IMPORT 11/07/2024 US OUTSIDE CD DICOM IMPORT 11/07/2024 XR OUTSIDE CD DICOM IMPORT 11/07/2024 CT OUTSIDE CD DICOM IMPORT 11/07/2024 from Last 3 Months Results * OT-XR CHEST 1V IMPORT (11/07/2024) Anatomical Region Laterality Modality Other 11/07/2024 Narrative 11/08/2024 2:22 PM EDT Images were obtained outside of [facility] Procedure Note Provider, [facility] [place] - 11/08/2024 Images were obtained outside of [facility] us [facility] Provider RADIOLOGY Final Result * US-US CAROTID DUPLEX BI IMPORT (11/07/2024) Anatomical Region Laterality Modality Other 11/07/2024 Narrative 11/08/2024 2:22 PM EDT Images were obtained outside of [facility] Procedure Note Provider, [facility] [place] - 11/08/2024 Images were obtained outside of [facility] Provider RADIOLOGY Final Result * CT-CT HEAD/BRAIN WO CON IMPORT (11/07/2024) Anatomical Region Laterality Modality Other 11/07/2024 Narrative 11/08/2024 2:42 PM EDT Images were obtained outside of [facility] Procedure Note Provider, [facility] [place] - 11/08/2024 Images were obtained outside of [facility] us [facility] Provider RADIOLOGY Final Result * CT-CT ABDOMEN PELVIS W CON IMPORT (11/07/2024) Anatomical Region Laterality Modality Other 11/07/2024 Narrative 11/08/2024 2:18 PM EDT Images were obtained outside of [facility] Procedure Note Provider, [facility] [place] - 11/08/2024 Images were obtained outside of [facility] us [facility] Provider RADIOLOGY Final Result from Last 3 Months Insurance MEDICARE [facility] PPO
--- OUTSIDE RECORDS SUMMARY | 2024-11-17 07:41 | XMS_ITS | Clinical Summary ---
Author Organization [facility] Address [id number] [address] [place] [address] Care Team Providers Care Plant Maintenance Technician Name Role Phone Henrik Downing MD Primary Care Provider [phone] Allergies Active Allergy Reactions Criticality Noted Date Comments Sulfa (Sulfonamide Antibiotics) Vomiting 10/27 Medications rosuvastatin (CRESTOR) 10 mg tablet Take 10 mg by mouth daily. Active levothyroxine (SYNTHROID, LEVOTHROID) 100 MCG tablet Take 125 mcg by mouth daily. Active citalopram (CeleXA) 20 mg tablet 9 Active glimepiride (AMARYL) 4 mg tablet 9 Active clonazePAM (KlonoPIN) 2 mg tablet 9 Active oxyCODONE-acetam inophen (PERCOCET) 5-325 mg per tabletIndication s:Hemorrhoids, unspecified hemorrhoid type Take 1 tablet by mouth every 6 (six) hours as needed for pain for up to 20 doses. Max Daily Amount: 4 tablets 20 tablet 9 Active Additional Information Patient not taking.Reported on 04/24/2019 erythromycin (ILOTYCIN) ophthalmic ointment apply to BILATERAL UPPER EYELIDS (INCISIONS) three times a day 0 9 Active SYNTHROID 125 mcg tablet 9 Active rosuvastatin (CRESTOR) 5 mg tablet 9 Active Active Problems No known active problems Family History Medical History Relation Name Comments Brain cancer Brother 1 Prostate cancer Brother 2 Prostate cancer Father Relation Name Status Comments Brother 1 Brother 2 Alive Father Alive Mother Alive Social History Tobacco Use Types Packs/Day Years Used Date Smoking Tobacco: Every Day Cigarettes Smokeless Tobacco: Never Tobacco Cessation:Ready to Q uit: No; Counseling Given: Yes Alcohol Use Standard Drinks/Week Comments No 0 (1 standard drink = 0.6 oz pur e alcohol) Childcare Answer Date Recorded Childcare Unknown 12/07/2018 Employment Answer Date Recorded Employment Unknown 12/07/2018 Purpose - Life Answer Date Recorded Purpose and direction in life Unknown Comments No Sex and Gender Information Value Date Recorded Sex Assigned at Not on file Legal Sex Female 11:21 AM EDT Gender Identity Not on file Sexual Orientation Not on file Last Filed Vital Signs Vital Sign Reading Time Taken Comments Blood Pressure 138/80 04/24/2019 2:24 PM EDT Pulse 72 02/28/2019 9:40 AM EDT Temperature 36.4 C (97.5 F) 02/28/2019 8:30 AM EDT Respiratory Rate 14 02/28/2019 8:50 AM EDT Oxygen Saturation 93% 02/28/2019 9:40 AM EDT Inhaled Oxygen Concentration - - Weight 67.6 kg (149 lb) 04/24/2019 2:24 PM EDT Height 157.5 cm (5' 2 ) 04/24/2019 2:24 PM EDT Body Mass Index 27.25 04/24/2019 2:24 PM EDT Plan of Treatment Health Maintenance Due Date Last Done Comments Depression Screening 1975 Tobacco Screening 1975 Adult BMI Screening 1981 DTaP,Tdap and Td Vaccines (1 - Tdap) 1982 Zoster (Shingles) Vaccine (1 of 2) 2013 Colonoscopy 02/28/2022 02/28/2019, 02/28/2019 Influenza Vaccine 02/26/2025 Medical Devices Not on file Procedures Procedure Name Priority Date/Time Associated Diagnosis Comments COLONOSCOPY 02/28/2019 7:14 AM EDT from Last 3 Months or Most Recently Relevant to Health Maintenance Results * Colonoscopy (02/28/2019 7:14 AM EDT) 02/28/2019 7:14 AM EDT Narrative PM CARDIOVASCULAR - 02/28/2019 8:13 AM [facility] Patient Name: Andreia Thomas Procedure Date No Time: 02/28/2019 CSN : [id number] Date of : 1965 Admit Type: Outpatient Age: 53 Room: [place] [address] Gender: Female Note Status: Finalized Attending MD: Kenan Johnson DO Procedure: Colonoscopy Indications: Rectal bleeding Providers: Kenan Johnson DO Referring MD: Kenan Johnson DO Medicines: General Anesthesia Complications: No immediate complications. Procedure: After I obtained informed consent, the scope was passed under direct vision. Throughout the procedure, the patient's blood pressure, pulse, and oxygen saturations were monitored continuously. The OLYMPUS CF-190L # [id number] ADULT COLONOSCOPE was introduced through the anus and advanced to the cecum, identified by appendiceal orifice and ileocecal valve. The colonoscopy was performed without difficulty. The patient tolerated the procedure well. The quality of the bowel preparation was adequate to identify polyps. Findings: Hemorrhoids were found on perianal exam. Five sessile polyps were found in the rectum and splenic flexure. The polyps were 4 to 7 mm in size. These polyps were removed with a hot snare. Resection and retrieval were complete. A localized area of mildly ulcerated mucosa was found at the splenic flexure. Biopsies were taken with a cold forceps for histology. A 4 mm polyp was found in the recto-sigmoid colon. The polyp was sessile. Fulguration to ablate the lesion by monopolar probe was successful. Estimated Blood Loss: Estimated blood loss was minimal. Impression: - Hemorrhoids found on perianal exam. - Five 4 to 7 mm polyps in the rectum and at the splenic flexure, removed with a hot snare. Resected and retrieved. - Ulcerated mucosa at the splenic flexure. Biopsied. - One 4 mm polyp at the recto-sigmoid colon. Treated with a monopolar probe. Recommendation: - Repeat colonoscopy in 3 years for surveillance based on pathology results. - Return to my office in 1 week. Procedure Code(s): --- Professional --- 18997, Colonoscopy, flexible; with ablation of tumor(s), polyp(s), or other lesion(s) (includes pre- and post-dilation and guide wire passage, when performed) 76598, 59, Colonoscopy, flexible; with removal of tumor(s), polyp(s), or other lesion(s) by snare technique [id number], 59, Colonoscopy, flexible; with biopsy, single or multiple Diagnosis Code(s): --- Professional --- K64.9, Unspecified hemorrhoids K62.1, Rectal polyp D12.3, Benign neoplasm of transverse colon (hepatic flexure or splenic flexure) K63.3, Ulcer of intestine D12.7, Benign neoplasm of rectosigmoid junction CPT copyright 2017 [employer]. All rights reserved. The codes documented in this report are preliminary and upon surgical coder review may be revised to meet current compliance requirements. DO Kenan Wang DO 02/28/2019 8:10:51 AM Number of Addenda: 0 Note Initiated On: 02/28/2019 7:14 AM Procedure Note Kenan Johnson DO - 02/28/2019 [facility] Patient Name: Andreia Thomas Procedure Date No Time: 02/28/2019 CSN : [id number] Date of : 1965 Admit Type: Outpatient Age: 53 Room: [place] [address] Gender: Female Note Status: Finalized Attending MD: Kenan Johnson DO Procedure: Colonoscopy Indications: Rectal bleeding Providers: Kenan Johnson DO Referring MD: Kenan Johnson DO Medicines: General Anesthesia Complications: No immediate complications. Procedure: After I obtained informed consent, the scope waspassed under direct vision. Throughout the procedure, the patient's blood pressure, pulse, and oxygensaturations were monitored continuously. The OLYMPUS CF-190L # [id number] ADULT COLONOSCOPE was introduced through the anus and advanced to the cecum, identified by appendiceal orifice and ileocecal valve. The colonoscopy was performed without difficulty. The patient tolerated the procedure well. The quality of the bowel preparation was adequate to identifypolyps. Findings: Hemorrhoids were found on perianal exam. Five sessile polyps were found in the rectum and splenic flexure. The polyps were 4 to 7 mm in size. These polyps were removed with a hot snare. Resection and retrieval were complete. A localized area of mildly ulcerated mucosa was found at the splenic flexure. Biopsies were taken with a cold forceps for histology. A 4 mm polyp was found in the recto-sigmoid colon. The polyp was sessile. Fulguration to ablate the lesion by monopolar probe was successful. Estimated Blood Loss: Estimated blood loss was minimal. Impression: - Hemorrhoids found on perianal exam. - Five 4 to 7 mm polyps in the rectum and at the splenic flexure, removed with a hot snare. Resectedand retrieved. - Ulcerated mucosa at the splenic flexure.Biopsied. - One 4 mm polyp at the recto-sigmoid colon. Treated with a monopolar probe. Recommendation: - Repeat colonoscopy in 3 years for surveillancebased on pathology results. - Return to my office in 1 week. Procedure Code(s): --- Professional --- 27873, Colonoscopy, flexible; with ablation of tumor(s), polyp(s), or other lesion(s) (includespre- and post-dilation and guide wire passage, when performed) 05313, 59, Colonoscopy, flexible; with removal of tumor(s), polyp(s), or other lesion(s) by snare technique [id number], 59, Colonoscopy, flexible; with biopsy,single or multiple Diagnosis Code(s): --- Professional --- K64.9, Unspecified hemorrhoids K62.1, Rectal polyp D12.3, Benign neoplasm of transverse colon (hepatic flexure orsplenic flexure) K63.3, Ulcer of intestine D12.7, Benign neoplasm of rectosigmoid junction CPT copyright 2017 [employer]. All rights reserved. The codes documented in this report are preliminary and upon surgical coder reviewmay be revised to meet current compliance requirements. DO Kenan Wang DO 02/28/2019 8:10:51 AM Number of Addenda: 0 Note Initiated On: 02/28/2019 7:14 AM Kenan Johnson DO GI PROCEDURE ORDERABLES Fin al Result PM CARDIOVASCULAR from Last 3 Months or Most Recently Relevant to Health Maintenance Insurance [employer] Care Teams Plant Maintenance Technician Relationship Specialty Start Date End Date Henrik Downing MD PCP - General 11/14/17
--- OUTSIDE RECORDS SUMMARY | 2024-11-17 07:41 | XMS_ITS | Encounter Summary ---
Author Organization [facility] Address [address] [place] [address] Care Team Providers Care Satellite Project Site Monitor Name Role Phone Henrik Downing MD Primary Care Provider [phone] Encounter Details Date Type Department Care Team (Late st Contact Info) Description 05/31/2023 Clinisync Result Encounter [facility] External Department Unsolicited Shannan Velez MD [address] [facility] [address] [place] [address] Social History Tobacco Use Types Packs/Day Years Used Date Smoking Tobacco: Every Day Cigarettes Smokeless Tobacco: Never Alcohol Use Standard Drinks/Week Comments Not Currently 0 (1 standard drink = 0.6 oz pur e alcohol) caffeine: yes, coffee Comments Unknown Sex and Gender Information Value Date Recorded Sex Assigned at Not on file Legal Sex Female 6:59 PM EDT Gender Identity Not on file Sexual Orientation Not on file documented as of this encounter Plan of Treatment Upcoming Encounters Date Type Department Care Team (Late st Contact Info) Description 12/27/2024 9:00 AM EDT Office Visit [facility] [address] [place] [address] Misty Peng MD [address] [place] [address] documented as of this encounter Procedures Procedure Name Priority Date/Time Associated Diagnosis Comments CT MAXILLOFACIAL W/O CONTRAST 05/31/2023 9:41 AM EST documented in this encounter Results * CT MAXILLOFACIAL W/O CONTRAST (05/31/2023 9:41 AM EST) Anatomical Region Laterality Modality Other 05/31/2023 9:41 AM EST Narrative 05/31/2023 2:25 PM EST Exam Date/Time: 05/31/2023 09:56 EST Reason for [...] low as reasonably achievable. Ordering Provider: Shannan Velez FINAL REPORT Dictated: 05/31/2023 2:22 pm SignAneesh stevens MD Signed (Electronic Signature): 05/31/2023 2:22 pm Signed by: Aneesh Crowe MD Transcribed by: KERVIN Technologist: MATTI Procedure Note Radiology, Radiologist, - 05/31/2023 Exam Date/Time: 05/31/2023 09:56 EST Reason for Exam: J32.4 Report IMPRESSION: NO ACUTE FINDINGS. CT MAXILLOFACIAL WITHOUT INTRAVENOUS CONTRAST MEDIUM. History: Sinus pressure for 18 months.. Technical factors: CT maxillofacial was obtained and formatted as 1 mmcontiguous axial images. Sagittal and coronal reconstruction obtained duringpostprocessing. Comparison: None. Findings: Bilateral frontal, ethmoid, sphenoid, and maxillary sinuses are patent. Radiopaque cutaneous marker identified lateral to mid right maxillarysinus. Nasal septum midline. Ostiomeatal complexes patent bilaterally. Mastoid air cells well pneumatized bilaterally. Bilateral ocular globes, extraocular muscles, optic nerves, retrobulbarfat without anomaly. No fracture. No bone lesion. All CT scans at this facility use dose modulation, iterativereconstruction, and/or weight based dosing when appropriate to reduce radiation dose to as low asreasonably achievable. Ordering Provider: Shannan Velez FINAL REPORT Dictated: 05/31/2023 2:22 pm Aneesh Crowe MD Signed (Electronic Signature): 05/31/2023 2:22 pm Signed by: Aneesh Crowe MD Transcribed by: DP Technologist: MATTI Shannan Velez MD [facility] Final Resul t documented in this encounter Visit Diagnoses Not on filedocumented in this encounter Care Teams Satellite Project Site Monitor Relationship Specialty Start Date End Date Henrik Downing MD PCP - General Family Medicine 05/03/23 documented as of this encounter
--- OUTSIDE RECORDS SUMMARY | 2024-11-17 07:41 | XMS_ITS | Encounter Summary ---
Author Organization [facility] Address [address] [place] [address] Care Team Providers Care Boom Pump Operator Name Role Phone Unavailable Primary Care Provider Unavailabl e Encounter Details Date Type Department Care Team (Latest Contact Info) Description 11/09/2024 Travel Social History Tobacco Use Types Packs/Day Years Used Date Smoking Tobacco: Former Cigarettes 1 48.4 S tarted: 06/28/1976 Smokeless Tobacco: Never Alcohol Use Standard Drinks/Week Comments Never 0 (1 standard drink = 0.6 oz pur e alcohol) [facility] Utilities Answer Date Recorded In the past 12 months has th e electric, gas, oil, or water company threatened to shut off services in your [...] any time in the past 12 m [facility], were you homeless or living in a custodial (including now)? No 11/09/2024 Hunger Vital Sign [...] AM EDT documented as of this encounter Plan of Treatment Upcoming Encounters Date Type Department Care Team (Late st Contact Info) Description 11/23/2024 10:00 AM EDT Follow-Up [facility] [address] [place] [address] Юлия Guerra MD [address] [place] [address] documented as of this encounter Visit Diagnoses Not on filedocumented in this encounter
--- OUTSIDE RECORDS SUMMARY | 2024-11-17 07:41 | XMS_ITS | Encounter Summary ---
Author Organization [facility] Address [address] [place], [place] [id number] Care Team Providers Care Drywall Mechanic Name Role Phone Unavailable Primary Care Provider Unavailabl e Source Comments In the event this information is protected by the Federal Confidentiality of Alcohol and Drug AbusePatient Records regulations: The Federal rules restrict any use of the information to criminally investigate or prosecute any alcohol or drug abuse patient.[facility] Encounter Details Date Type Department Care Team (Late st Contact Info) Description 11/08/2024 Orders Only Pediatrics [facility] [address] [place] [address] Gael Pandey MD [address] [place] [address] Social History Tobacco Use Types Packs/Day Years Used Date Smoking Tobacco: Never Assessed Comments Unknown Sex and Gender Information Value Date Recorded Sex Assigned at Not on file Legal Sex Female 7:19 AM EDT Gender Identity Not on file Sexual Orientation Not on file documented as of this encounter Plan of Treatment Not on file documented as of this encounter Visit Diagnoses Not on filedocumented in this encounter
--- OUTSIDE RECORDS SUMMARY | 2024-11-17 07:42 | XMS_ITS | Referral Summary ---
Author Organization [facility] Address [address] [place] [address] Care Team Providers Care Junior Net Developer Name Role Phone Henrik Downing MD Primary Care Provider [phone] Encounters Date Type Department Care Team Description 11/09/2024 6:46 PM EDT - 11/14/2024 2:56 PM EDT Hospital Encounter [facility] 4AB Urology [address] [place] [id number] Micky Colbert MD Spencer, Caleb T, MD Chang, Kyu Chul, MD Pancytopenia (CMS/HCC) (Primary Dx); Vitamin D deficiency; Vitamin B12 deficiency Discharge Disposition: Home or Self Care () 11/09/2024 Travel from Last 3 Months Allergies No known active allergies Medications Medication Sig Dispensed Refills Start Date End Date Status levothyroxine (Synthroid, Levoxyl) 125 mcg tablet Take 125 mcg by mouth before breakfast. Active liothyronine (Cytomel) 5 mcg tablet Take 2 tablets by mouth in the morning. Active citalopram (CeleXA) 20 mg tablet Take 20 mg by mouth in the morning. Active rosuvastatin (Crestor) 5 mg tablet Take 5 mg by mouth in the morning. Active clonazePAM (KlonoPIN) 2 mg tablet Take 2 mg by mouth if needed in the morning, at noon, and at bedtime for anxiety. May take 2-3 tablets daily Active esomeprazole (NexIUM) [address] capsule Take 40 mg by mouth before breakfast. Do not open capsule. Active ergocalciferol (Vitamin D-2) 1.25 MG (69423 Units) capsuleIndication s:Vitamin D deficiency Take 1 capsule (50,000 Units) by mouth 1 (one) time per week for 14 doses. 4 capsule 3 11/20/2024 02/20/2025 Active cyanocobalamin (Vitamin B-12) 1,000 mcg tabletIndications :Vitamin B12 deficiency Take 1 tablet (1,000 mcg) by mouth in the morning for 97 doses. 30 tablet 3 11/15/2024 02/20/2025 Active folic acid (Folvite) 1 mg tabletIndications :Pancytopenia (CMS/HCC) Take 1 tablet (1 mg) by mouth in the morning. 30 tablet 11/14/2024 12/14/2024 Active sucralfate (Carafate) 100 mg/mL suspension Take 10 mL by mouth four times daily. X14 days 11/02/2024 11/16/2024 insulin glargine (Lantus) 100 unit/mL injection vial Inject 20 Units under the skin at bedtime. 11/14/2024 Discontinued( Stop Taking at Discharge) Active Problems Problem Noted Date Diagnosed Date Vitamin B12 deficiency 11/12/2024 Assessment & Plan (11/13/2024 6:50 AM EDT): -Low at OSH and received multiple doses IM replacement -Appropriate levels on recheck here Assessment & Plan (11/12/2024 10:40 AM EDT): -Low at OSH and received multiple doses IM replacement -Appropriate levels on recheck here Transaminitis 11/12/2024 Assessment & Plan (11/13/2024 6:50 AM EDT): -Elevated at OSH but were unremarkable here -Hyperbilirubinemia, AST>ALT Assessment & Plan (11/12/2024 10:40 AM EDT): -Elevated at OSH but were unremarkable here -Hyperbilirubinemia, AST>ALT Heart murmur 11/11/2024 Assessment & Plan (11/13/2024 6:50 AM EDT): -quiet systolic murmur that was not heard on admission -likely this is high output -without schistocytes I do not feel overly compelled to obtain TTE at this point Assessment & Plan (11/12/2024 10:40 AM EDT): -quiet systolic murmur that was not heard on admission -likely this is high output -without schistocytes I do not feel overly compelled to obtain TTE at this point Assessment & Plan (11/11/2024 2:18 PM EDT): -quiet systolic murmur that was not heard on admission -likely this is high output -without schistocytes I do not feel overly compelled to obtain TTE at this point Moderate protein-calorie malnutrition 11/10/2024 Assessment & Plan (11/13/2024 6:50 AM EDT): -RD following, see below Assessment & Plan (11/12/2024 10:40 AM EDT): -RD following, see below Assessment & Plan (11/11/2024 6:52 AM EDT): -RD following, see below Assessment & Plan (11/10/2024 3:28 PM EDT): -RD following, see below Pancytopenia 11/09/2024 Assessment & Plan (11/13/2024 7:00 AM EDT): -Concerning for B12 deficiency vs iatrogenic vs MDS vs MPN vs malignancy, less likely MAHA process -OSH smear showing rare schistocytes, repeat smear here negative for schistocytes -[id number] activity mildly low which is nonspecific, however [...] Plt <10 or <20 and active bleeding Assessment & Plan (11/12/2024 10:40 AM EDT): -Concerning for B12 deficiency vs iatrogenic vs MDS vs MPN vs malignancy, less likely MAHA process -OSH smear showing rare schistocytes, repeat smear here negative for schistocytes -f/u [id number] activity, P[facility] flow, BMBx results -CT imaging negative for LAD -Did have 5 days nitrofurantoin appx 1 month ago -HemOnc on board, grateful for their input -Daily CBC however minimize phlebotomy as much as possible (re: CMP every Mon/Th) -Transfuse for Hgb <7 -Transfuse for Plt <10 or <20 and active bleeding Assessment & Plan (11/11/2024 2:30 PM EDT): -Concerning for MDS vs MPN vs malignancy, less likely MAHA process -OSH smear showing rare schistocytes, repeat smear here negative for schistocytes -f/u [id number] activity, PNH flow, BMBx results -CT imaging negative for LAD -HemOnc on board, grateful for their input -Daily CBC however minimize phlebotomy as much as possible (re: BMP every Mon/) -Transfuse for Hgb <7 -Transfuse for Plt <10 or <20 and active bleeding Assessment & Plan (11/10/2024 3:28 PM EDT): -Concerning for MDS vs MPN vs malignancy, less likely MAHA process -OSH smear showing rare schistocytes, repeat smear here -Check hemolysis labs, [id number] -HemOnc on board, grateful for their input -Will be undergoing BMBx today -Daily CBC however minimize phlebotomy as much as possible Assessment & Plan (11/09/2024 11:41 PM EDT): - Initial labs at [facility] found to be WBC 2.2, hemoglobin 5.3, platelet count 31 Repeat labs at [facility] show WBC 3.49, hemoglobin 8.4, platelet count 26 -Concern for TTP -Type and screen is been completed -Transfuse for hemoglobin less than 7 and a platelet count less than 10 unless actively bleeding -Hematology/oncology consult -N.p.o. at midnight for bone marrow biopsy Acute encephalopathy 11/09/2024 Assessment & Plan (11/13/2024 6:50 AM EDT): -?2/2 UTI vs above process -Aox2 on presentation however improved today -Did have syncopal episode prior to initial presentation -CT of the head negative at outside hospital Assessment & Plan (11/12/2024 12:41 PM EDT): -?2/2 UTI vs above process -Aox2 on presentation however improved today -Did have syncopal episode prior to initial presentation -CT of the head negative at outside hospital Assessment & Plan (11/11/2024 6:52 AM EDT): -?2/2 UTI vs above process -Aox2, reporting delirium that pt herself denies -Did have syncopal episode -CT of the head negative at outside hospital Assessment & Plan (11/10/2024 3:28 PM EDT): -?2/2 UTI vs above process -Aox2, reporting delirium that pt herself denies -Did have syncopal episode -CT of the head negative at outside hospital Assessment & Plan (11/09/2024 11:34 PM EDT): - Patient with intermittent confusion as well as a syncopal episode which has since resolved -CT of the head negative at outside hospital -Suspect likely secondary to low hemoglobin Acute cystitis without hematuria 11/09/2024 Assessment & Plan (11/13/2024 6:50 AM EDT): -Treated with 3 days CTX and levofloxacin 5/-15 at outside hospital -UA negative -Currently asymptomatic Assessment & Plan (11/12/2024 10:40 AM EDT): -Treated with 3 days CTX and levofloxacin 5/13-15 at outside hospital -UA negative -Currently asymptomatic Assessment & Plan (11/11/2024 2:30 PM EDT): -Treated with CTX at outside hospital -UA negative -Currently asymptomatic Assessment & Plan (11/10/2024 3:28 PM EDT): -Treated with CTX at outside hospital -Currently asymptomatic Assessment & Plan (11/09/2024 11:34 PM EDT): - Patient reportedly with a positive UTI at outside hospital and was given Rocephin, patient currently denies any UTI symptoms, will hold on antibiotics at this time DM2 (diabetes mellitus, type 2) 11/09/2024 Assessment & Plan (11/13/2024 6:50 AM EDT): -ISS, ACHS Assessment & Plan (11/12/2024 10:40 AM EDT): -ISS, ACHS Assessment & Plan (11/11/2024 6:52 AM EDT): -ISS, ACHS Assessment & Plan (11/10/2024 3:28 PM EDT): -ISS, ACHS Assessment & Plan (11/09/2024 11:34 PM EDT): - ISS, ACHS Acquired hypothyroidism 11/09/2024 Assessment & Plan (11/13/2024 6:50 AM EDT): -Continue levothyroxine -TSH low with normal T4 -Does have tender thyroid, check US thyroid -On chart review, several changes to liothyronine, check T3 Assessment & Plan (11/12/2024 10:40 AM EDT): -Continue levothyroxine -TSH low with normal T4 -Does have tender thyroid, check US thyroid -On chart review, several changes to liothyronine, check T3 Assessment & Plan (11/11/2024 2:30 PM EDT): -Continue levothyroxine -TSH low with normal T4 -Does have tender thyroid, check US thyroid Assessment & Plan (11/10/2024 3:28 PM EDT): -Continue levothyroxine -TSH low with normal T4 Assessment & Plan (11/09/2024 11:34 PM EDT): - Continue levothyroxine GERD (gastroesophageal reflux disease) Assessment & Plan (11/13/2024 6:50 AM EDT): -Continue Protonix Assessment & Plan (11/12/2024 10:40 AM EDT): -Continue Protonix Assessment & Plan (11/11/2024 6:52 AM EDT): -Continue Protonix Assessment & Plan (11/10/2024 3:28 PM EDT): -Continue Protonix Assessment & Plan (11/09/2024 11:34 PM EDT): - Continue Protonix HLD (hyperlipidemia) 11/09/2024 Assessment & Plan (11/13/2024 6:50 AM EDT): -Continue rosuvastatin Assessment & Plan (11/12/2024 10:40 AM EDT): -Continue rosuvastatin Assessment & Plan (11/11/2024 6:52 AM EDT): -Continue rosuvastatin Assessment & Plan (11/10/2024 3:28 PM EDT): -Continue rosuvastatin Assessment & Plan (11/09/2024 11:34 PM EDT): - Continue rosuvastatin Anxiety 11/09/2024 Assessment & Plan (11/13/2024 6:50 AM EDT): -Continue Celexa Assessment & Plan (11/12/2024 10:40 AM EDT): -Continue Celexa Assessment & Plan (11/11/2024 6:52 AM EDT): -Continue Celexa Assessment & Plan (11/10/2024 3:28 PM EDT): -Continue Celexa Assessment & Plan (11/09/2024 11:34 PM EDT): - Continue Celexa Social History Tobacco Use Types Packs/Day Years Used Date Smoking Tobacco: Former Cigarettes 1 48.4 S tarted: 06/28/1976 Smokeless Tobacco: Never Tobacco Cessation:Counseling Given: Not Answered Alcohol Use Standard Drinks/Week Comments Never 0 (1 standard drink = 0.6 oz pur e alcohol) [facility] Utilities Answer Date Recorded In the [...] time in the past 12 m [facility], were you homeless or living in a jail (including now)? No 11/09/2024 Hunger Vital Sign [...] Heterosexual or Straight 10/26 8:57 AM EDT Last Filed Vital Signs Vital Sign Reading Time Taken Comments Blood Pressure 128/67 11/14/2024 1:15 PM EDT Pulse 67 11/14/2024 1:15 PM EDT Temperature 36.6 C (97.9 F) 11/14/2024 1:15 PM EDT Respiratory Rate 19 11/14/2024 1:15 PM EDT Oxygen Saturation 97% 11/14/2024 1:15 PM EDT Inhaled Oxygen Concentration - - Weight 70.3 kg (154 lb 15.7 oz) 11/14/2024 4:39 AM EDT Height 157.5 cm (5' 2 ) 11/09/2024 8:36 PM EDT Body Mass Index 28.35 11/09/2024 8:36 PM EDT Plan of Treatment Upcoming Encounters Date Type Department Care Team (Late st Contact Info) Description 11/23/2024 10:00 AM EDT Follow-Up Liat Toscano [facility] [address] [place] [phone] Юлия Guerra MD [address] [place] [phone] Procedures Procedure Name Priority Date/Time Associated Diagnosis Comments POCT GLUCOSE METER UNSOLICITED RESULTS Routine 11/14/2024 11:33 AM EDT POCT GLUCOSE METER UNSOLICITED RESULTS Routine 11/14/2024 7:07 AM EDT MANUAL DIFFERENTIAL Pending Discharge 11/14/2024 4:53 AM EDT BASIC METABOLIC PANEL STAT Add-on 11/14/2024 4:53 AM EDT HIV COMBO 4G STAT Add-on 11/14/2024 4:53 AM EDT LIGHT GREEN TOP Routine 11/14/2024 4:53 AM EDT EXTRA TUBES Routine 11/14/2024 4:53 AM EDT CBC WITH AUTO DIFFERENTIAL Pending Discharge 11/14/2024 4:53 AM EDT CBC AND DIFFERENTIAL Routine 11/14/2024 4:53 AM EDT POCT GLUCOSE METER UNSOLICITED RESULTS Routine 11/13/2024 9:34 PM EDT POCT GLUCOSE METER UNSOLICITED RESULTS Routine 11/13/2024 5:07 PM EDT POCT GLUCOSE METER UNSOLICITED RESULTS Routine 11/13/2024 11:40 AM EDT POCT GLUCOSE METER UNSOLICITED RESULTS Routine 11/13/2024 7:35 AM EDT PREPARE RBC Routine 11/13/2024 7:33 AM EDT MANUAL DIFFERENTIAL Pending Discharge 11/13/2024 4:43 AM EDT MAGNESIUM Add-On 11/13/2024 4:43 AM EDT CBC WITH AUTO DIFFERENTIAL Pending Discharge 11/13/2024 4:43 AM EDT HSV 1 AND 2 GLYCOPROTEIN G-SPECIFIC ANTIBODY, IGG Pending Discharge 11/13/2024 4:43 AM EDT COMPREHENSIVE METABOLIC PANEL Pending Discharge 11/13/2024 4:43 AM EDT PROTEIN ELECTROPHORESIS, SERUM Pending Discharge 11/13/2024 4:43 AM EDT COLD AGGLUTININ SCREEN Pending Discharge 11/13/2024 4:43 AM EDT CBC AND DIFFERENTIAL Routine 11/13/2024 4:43 AM EDT POCT GLUCOSE METER UNSOLICITED RESULTS Routine 11/12/2024 9:33 PM EDT POCT GLUCOSE METER UNSOLICITED RESULTS Routine 11/12/2024 4:53 PM EDT POCT GLUCOSE METER UNSOLICITED RESULTS Routine 11/12/2024 11:25 AM EDT HOMOCYSTEINE (CARDIO), FPIA Pending Discharge 11/12/2024 10:41 AM EDT MARI-RIVAS VIRUS VCA, IGM Add-On 11/12/2024 10:41 AM EDT CMV IGM Add-On 11/12/2024 10:41 AM EDT PARVOVIRUS B19 ANTIBODY, IGG AND IGM Pending Discharge 11/12/2024 10:41 AM EDT POCT GLUCOSE METER UNSOLICITED RESULTS Routine 11/12/2024 7:58 AM EDT MANUAL DIFFERENTIAL Pending Discharge 11/12/2024 4:44 AM EDT HEPATITIS PANEL, ACUTE Add-On 11/12/2024 4:44 AM EDT T3, FREE Add-On 11/12/2024 4:44 AM EDT LIGHT GREEN TOP Routine 11/12/2024 4:44 AM EDT RAINBOW DRAW Routine 11/12/2024 4:44 AM EDT CBC WITH AUTO DIFFERENTIAL Pending Discharge 11/12/2024 4:44 AM EDT CIPRIANO Pending Discharge 11/12/2024 4:44 AM EDT CBC AND DIFFERENTIAL Routine 11/12/2024 4:44 AM EDT POCT GLUCOSE METER UNSOLICITED RESULTS Routine 11/11/2024 8:57 PM EDT US THYROID Routine 11/11/2024 4:31 PM EDT POCT GLUCOSE METER UNSOLICITED RESULTS Routine 11/11/2024 4:24 PM EDT POCT GLUCOSE METER UNSOLICITED RESULTS Routine 11/11/2024 11:13 AM EDT MISCELLANEOUS LAB TEST Routine 11/11/2024 9:51 AM EDT MANUAL DIFFERENTIAL Pending Discharge 11/11/2024 7:34 AM EDT CBC WITH AUTO DIFFERENTIAL Pending Discharge 11/11/2024 7:34 AM EDT CBC AND DIFFERENTIAL Routine 11/11/2024 7:34 AM EDT LAVENDER TOP Routine 11/11/2024 7:34 AM EDT LIGHT GREEN TOP Routine 11/11/2024 7:34 AM EDT EXTRA TUBES Routine 11/11/2024 7:34 AM EDT COPPER, SERUM Routine 11/11/2024 7:34 AM EDT POCT GLUCOSE METER UNSOLICITED RESULTS Routine 11/11/2024 7:07 AM EDT POCT GLUCOSE METER UNSOLICITED RESULTS Routine 11/10/2024 8:51 PM EDT POCT GLUCOSE METER UNSOLICITED RESULTS Routine 11/10/2024 5:28 PM EDT CREATININE, URINE, RANDOM Add-On 11/10/2024 5:26 PM EDT PROTEIN, URINE, RANDOM Add-On 11/10/2024 5:26 PM EDT URINALYSIS WITH REFLEX CULTURE Routine 11/10/2024 5:[address] CHEST W IV CONTRAST Routine 11/10/2024 4:[address] GUIDED BIOPSY BONE MARROW STAT 11/10/2024 2:21 PM EDT APTT Routine 11/10/2024 11:55 AM EDT FIBRINOGEN Routine 11/10/2024 11:55 AM EDT HAPTOGLOBIN Routine 11/10/2024 11:55 AM EDT ADAMTS 13 ACTIVITY Routine 11/10/2024 11 :55 AM EDT POCT GLUCOSE METER UNSOLICITED RESULTS Routine 11/10/2024 11:12 AM EDT POCT GLUCOSE METER UNSOLICITED RESULTS Routine 11/10/2024 7:50 AM EDT PERIPHERAL BLOOD SMEAR Add-On 11/10/2024 5:13 AM EDT RETICULOCYTE PANEL Add-On 11/10/2024 5: 13 AM EDT FERRITIN Add-On 11/10/2024 5:13 AM EDT IRON AND TIBC Add-On 11/10/2024 5:13 AM EDT FOLATE Add-On 11/10/2024 5:13 AM EDT LACTATE DEHYDROGENASE Add-On 11/10/2024 5:13 AM EDT CBC Routine 11/10/2024 5:13 AM EDT BASIC METABOLIC PANEL Routine 11/10/2024 5:13 AM EDT POCT GLUCOSE METER UNSOLICITED RESULTS Routine 11/09/2024 9:09 PM EDT PREPARE RBC Routine 11/09/2024 9:04 PM EDT ECG 12-LEAD STAT 11/09/2024 8:20 PM EDT LACTIC ACID, PLASMA STAT 11/09/2024 7 :47 PM EDT BLOOD CULTURE STAT 11/09/2024 7:47 PM EDT BLOOD CULTURE STAT 11/09/2024 7:47 PM EDT MANUAL DIFFERENTIAL STAT 11/09/2024 7 :46 PM EDT ANTI C3 JUAN MANUEL Routine 11/09/2024 7:46 PM EDT ANTIBODY IDENTIFICATION Routine 11/09/2024 7:46 PM EDT ANTI IGG JUAN MANUEL Routine 11/09/2024 7:46 PM EDT T4, FREE STAT 11/09/2024 7:46 PM EDT TYPE AND SCREEN Routine 11/09/2024 7:46 PM EDT VITAMIN D 25 HYDROXY STAT 11/09/2024 7:46 PM EDT TSH3 REFLEX TO FT4 STAT 11/09/2024 7: 46 PM EDT VITAMIN B12 STAT 11/09/2024 7:46 PM EDT HIGH SENSITIVITY TROPONIN I STAT 11/09/2024 7:46 PM EDT CK TOTAL AND CKMB STAT 11/09/2024 7:4 6 PM EDT VENOUS BLOOD GAS WITH IONIZED CALCIUM STAT 11/09/2024 7:46 PM EDT AMMONIA STAT 11/09/2024 7:46 PM EDT CBC WITH AUTO DIFFERENTIAL STAT 11/09/2024 7:46 PM EDT PROTIME-INR STAT 11/09/2024 7:46 PM EDT CBC AND DIFFERENTIAL STAT 11/09/2024 7:46 PM EDT PHOSPHORUS STAT 11/09/2024 7:46 PM EDT MAGNESIUM STAT 11/09/2024 7:46 PM EDT COMPREHENSIVE METABOLIC PANEL STAT 11/09/2024 7:46 PM EDT from Last 3 Months Results * (ABNORMAL) POCT glucose meter (11/14/2024 11:33 AM EDT) Only the most recent of19 resultswithin the time period is included. Glucose POC 134(H) 70 - 105 mg/dL 11/14/2024 11:43 AM EDT [facility] ([place]) Comment:[email or web address] Blood Capillary blood specimen / Unknown 11/14/2024 11:33 AM EDT 11/14/2024 11:43 AM EDT Narrative [facility] ([place]) - 11/14/2024 11:43 AM EDT Waived Testing in the ED is performed under the ED CLIA certificate #[id number]. Harry Lebron MD LAB BLOOD ORDERABLES [facility] ([facility]) [address] [place] [address] * HIV COMBO 4G (11/14/2024 4:53 AM EDT) HIV Combo 4G Negative Negative 11/14/2024 10:06 AM EDT [facility] ([facility]) Comment:Received comment: Us er comments: Slide comments: Blood Venous blood specimen / Unknown Venipuncture / Unknown 11/14/2024 4:53 AM EDT 11/14/2024 4:56 AM EDT Harry Lebron MD LAB BLOOD ORDERABLES [facility] ([facility]) [address] [place] [address] * (ABNORMAL) CBC auto differential (11/14/2024 4:53 AM EDT) Only the most recent of5 resultswithin the time period is included. Pathologist [facility] Auto WBC 3.30(L) 4.00 - 10.60 10*3/uL 11/14/2024 5:48 AM EDT [facility] ([facility]) RBC 2.59(L) 3.80 - 5.00 10*6/uL 11/14/2024 5:48 AM EDT [facility] ([facility]) Hemoglobin 8.5(L) 12.0 - 15.0 g/dL 11/14/2024 5:48 AM EDT [facility] ([facility]) Hematocrit 27.7(L) 36.0 - 45.0 % 11/14/2024 5:48 AM EDT [facility] ([facility]) MCV 106.9(H) 82.0 - 98.0 fL 11/14/2024 5:48 AM EDT [facility] ([facility]) MCH 32.8 27.0 - 33.0 pg 11/14/2024 5:48 AM EDT [facility] ([facility]) MCHC 30.7(L) 32.0 - 35.0 g/dL 11/14/2024 5:48 AM EDT [facility] ([facility]) RDW 20.9(H) 11.5 - 15.0 % 11/14/2024 5:48 AM EDT [facility] ([facility]) Platelets 113(L) 150 - 400 10*3/uL 11/14/2024 5:48 AM EDT [facility] ([facility]) nRBC % 1.8(H) 0 % 11/14/2024 5:48 AM EDT [facility] ([facility]) Immature Platelet Fraction % 5.0 0.8 - 6.3 % 11/14/2024 5:48 AM EDT [facility] ([facility]) Blood Venous blood specimen / Unknown Venipuncture / Unknown 11/14/2024 4:53 AM EDT 11/14/2024 4:56 AM EDT Hal Bajwa MD LAB BLOOD ORDERABLES Performing Organization Address City/[facility]/ZIP Co de Phone Number [facility]) [address] [place] [id number] * Light Green Top (11/14/2024 4:53 AM EDT) Only the most recent of3 resultswithin the time period is included. Extra Tube Hold for add-ons. 11/14/2024 7:01 AM EDT [facility]) Comment:Auto resulted. Blood Venous blood specimen / Unknown Venipuncture / Unknown 11/14/2024 4:53 AM EDT 11/14/2024 5:03 AM EDT Hal Bajwa MD LAB BLOOD ORDERABLES Performing Organization Address City/[facility]/ZIP Co de Phone Number [facility]) [address] [place] [address] * (ABNORMAL) Manual Differential (11/14/2024 4:53 AM EDT) Only the most recent of5 resultswithin the time period is included. Immature Granulocytes % 2.4(H) 0.0 - 1.0 % 11/14/2024 7:54 AM EDT [facility]) Neutrophils Absolute 1.8 1.6 - 7.6 10*3/uL 11/14/2024 7:54 AM EDT [facility] ([facility]) Lymphocytes Absolute 0.82(L) 1.20 - 4.00 10*3/uL 11/14/2024 7:54 AM EDT [facility] ([facility]) Monocytes Absolute 0.55 0.10 - 1.00 10*3/uL 11/14/2024 7:54 AM EDT [facility] ([facility]) Eosinophils Absolute 0.07 0.00 - 0.50 10*3/uL 11/14/2024 7:54 AM EDT [facility] ([facility]) Basophils Absolute 0.01 0.00 - 0.20 10*3/uL 11/14/2024 7:[address] [facility] ([facility]) Anisocytosis Moderate 11/14/2024 7:[address] [facility] ([facility]) Poikilocytes Slight 11/14/2024 7:[address] [facility] ([facility]) Polychromasia Slight 11/14/2024 7:54 AM [facility] ([facility]) Neutrophils % 53.7 40.0 - 72.0 % 11/14/2024 7:54 AM T [facility] ([facility]) Lymphocytes % 24.8 20.0 - 45.0 % 11/14/2024 7:[address] [facility] ([facility]) Monocytes % 16.7(H) 5.0 - 12.0 % 11/14/2024 7:54 AM [facility] ([facility]) Eosinophils % 2.1 0.0 - 6.0 % 11/14/2024 7:54 AM T [facility] ([facility]) Basophils % 0.3 0.0 - 1.0 % 11/14/2024 7:54 AM [facility] ([facility]) Immature Granulocytes Absolute 0.08 0.00 - 0.20 10*3/uL 11/14/2024 7:54 AM [facility]) Blood Venous blood specimen / Unknown Venipuncture / Unknown 11/14/2024 4:53 AM EDT 11/14/2024 4:56 AM EDT Hal Bajwa MD LAB BLOOD ORDERABLES [facility] ([facility]) [address] [place] [address] * (ABNORMAL) Basic metabolic panel (11/14/2024 4:53 AM EDT) Only the most recent of2 resultswithin the time period is included. Sodium 142 136 - 145 mmol/L 11/14/2024 1:25 PM EDT [facility] ([facility]) Potassium 3.8 3.5 - 5.1 mmol/L 11/14/2024 1:25 PM EDT [facility] ([facility]) Chloride 111(H) 98 - 107 mmol/L 11/14/2024 1:25 PM EDT [facility] ([facility]) CO2 29 21 - 31 mmol/L 11/14/2024 1:25 PM EDT [facility] ([facility]) BUN 11 7 - 25 mg/dL 11/14/2024 1:25 PM EDT [facility] ([facility]) Creatinine 0.58(L) 0.60 - 1.20 mg/dL 11/14/2024 1:25 PM EDT [facility] ([facility]) Glucose 122(H) 70 - 100 mg/dL 11/14/2024 1:25 PM EDT [facility] ([facility]) Calcium 8.3(L) 8.6 - 10.3 mg/dL 11/14/2024 1:25 PM EDT [facility] ([facility]) Anion Gap 6(L) 7 - 20 mmol/L 11/14/2024 1:25 PM EDT [facility] ([facility]) eGFR 102.9 >60.0 mL/min/1. 73m*2 11/14/2024 1:25 PM EDT [facility] ([facility]) Comment:[facility] s estimated glomerular filtration rate (eGFR) [...] BUN/Creatinine Ratio 19.0 10/27 1:25 PM EDT [facility] ([place]) Blood Venous blood specimen / Unknown Venipuncture / Unknown 11/14/2024 4:53 AM EDT 11/14/2024 5:03 AM EDT Harry Lebron MD LAB BLOOD ORDERABLES [facility] ([facility]) [address] [place] [address] * Prepare RBC (11/13/2024 7:33 AM EDT) Only the most recent of2 resultswithin the time period is included. PRODUCT CODE [id number] [facility] Unit Number [id number] [facility] Unit ABO O [facility] Unit Rh POS [facility] Dispense Status RE [facility] Blood Expiration Date [facility] Product Blood Type 5100 [facility] Unit Volume 300 mL [facility] PRODUCT CODE [id number] [facility] Unit Number [id number] [facility] Unit ABO O [facility] Unit Rh POS [facility] Dispense Status RE [facility] Blood Expiration Date [id number] [facility] Product Blood Type 5100 [facility] Rebecca Lang [facility] PRODUCT O RDERABLES [facility] * (ABNORMAL) HSV 1 and 2 glycoprotein g-specific antibody, IgG (11/13/2024 4:43 AM EDT) HSV 1 Glycoprotein G Ab, IgG 8.77(H) <=0.89 IV 11/15/2024 1:11 AM EDT [facility] ([facility]) Comment: REFERENCE INTERVAL: HSV 1 Glycoprotein G [...] 0.13 <=0.89 IV 11/15/2024 1:11 AM EDT [facility]) Comment: REFERENCE INTERVAL: HSV 2 Glycoprotein G [...] HSV-2 is </= 3.0 IV. Performed By: [facility] [address] [place] [id number] [employer] Operator: Cal Delgado MD, PhD CLIA Number: [id number] Blood Venous blood specimen / Unknown Venipuncture / Unknown 11/13/2024 4:43 AM EDT 11/13/2024 5:07 AM EDT Hal Bajwa MD LAB BLOOD ORDERABLES [email or web address]) [address] [place] [address] * Cold agglutinin screen (11/13/2024 4:43 AM EDT) Cold Agglutinin Titer <1:32 <1:32 11/15/2024 10:52 PM EDT [facility] ([place]) Comment: INTERPRETIVE INFORMATION: Cold Agglutinins Titers of [...] disease, and common respiratory disease. Performed By: [facility] [employer] [address] [place] [address] [employer] Operator: Cal Delgado MD, PhD CLIA Number: [id number] Blood Venous blood specimen / Unknown Venipuncture / Unknown 11/13/2024 4:43 AM EDT 11/13/2024 5:07 AM EDT Hal Bajwa MD LAB BLOOD ORDERABLES [facility] ([facility]) [address] [place], [place] [id number] * (ABNORMAL) Protein electrophoresis, serum (11/13/2024 4:43 AM EDT) Pathologist [facility] Total Protein 4.8(L) 6.0 - 8.3 g/dL 11/15/2024 2:20 PM EDT [facility] ([place]) Protein Electrophoresis Interpretation Please see attached report. 11/15/2024 2:20 PM EDT [facility] ([place]) Blood Venous blood specimen / Unknown Venipuncture / Unknown 11/13/2024 4:43 AM EDT 11/13/2024 5:20 AM EDT Hal Bajwa MD LAB BLOOD ORDERABLES Performing Organization Address City/[facility]/ZIP Co de Phone Number [facility]) [address] [place] [address] * Magnesium (11/13/2024 4:43 AM EDT) Only the most recent of2 resultswithin the time period is included. Magnesium 2.1 1.9 - 2.7 mg/dL 11/13/2024 7:25 AM EDT [facility] ([facility]) Blood Venous blood specimen / Unknown Venipuncture / Unknown 11/13/2024 4:43 AM EDT 11/13/2024 5:20 AM EDT Hal Bajwa MD LAB BLOOD ORDERABLES Performing Organization Address City/[facility] Co de Phone Number [facility] ([facility]) [address] [place] [address] * (ABNORMAL) Comprehensive metabolic panel (11/13/2024 4:43 AM EDT) Only the most recent of2 resultswithin the time period is included. Sodium 143 136 - 145 mmol/L 11/13/2024 5:46 AM EDT [facility] ([facility]) Potassium 3.4(L) 3.5 - 5.1 mmol/L 11/13/2024 5:46 AM EDT [facility] ([facility]) Chloride 110(H) 98 - 107 mmol/L 11/13/2024 5:46 AM EDT [facility] ([facility]) CO2 30 21 - 31 mmol/L 11/13/2024 5:46 AM EDT [facility] ([facility]) Anion Gap 6(L) 7 - 20 mmol/L 11/13/2024 5:46 AM EDT [facility] ([facility]) BUN 10 7 - 25 mg/dL 11/13/2024 5:46 AM EDT [facility] ([facility]) Creatinine 0.48(L) 0.60 - 1.20 mg/dL 11/13/2024 5:46 AM [facility] ([facility]) BUN/Creatinine Ratio 20.8 10/26 5:46 AM [facility] ([facility]) Glucose 120(H) 70 - 100 mg/dL 11/13/2024 5:46 AM [facility] ([facility]) Calcium 8.2(L) 8.6 - 10.3 mg/dL 11/13/2024 5:46 AM [facility] ([facility]) AST 12(L) 13 - 39 U/L 11/13/2024 5:46 AM [facility] ([facility]) ALT (SGPT) 12 7 - 52 U/L 11/13/2024 5:46 AM [facility] ([facility]) Alkaline Phosphatase 81 34 - 104 U/L 11/13/2024 5:46 AM [facility] ([facility]) Total Protein 5.1(L) 6.0 - 8.3 g/dL 11/13/2024 5:46 AM [facility] ([facility]) Albumin 3.2(L) 3.5 - 5.7 g/dL 11/13/2024 5:46 AM [facility] ([facility]) Total Bilirubin 0.7 0.3 - 1.0 mg/dL 11/13/2024 5:46 AM [facility] ([facility]) eGFR 107.7 >60.0 mL/min/1. 73m*2 11/13/2024 5:46 AM [facility] ([facility]) Comment:[facility] s estimated glomerular filtration rate (eGFR) [...] EDT Hal Bajwa MD LAB BLOOD ORDERABLES [facility] ([place]) [address] [place] [address] * (ABNORMAL) Homocysteine (cardio), FPIA (11/12/2024 10:41 AM EDT) [facility] Homocysteine 20.5(H) 0.0 - 15.0 umol/L 11/12/2024 6:48 PM EDT [facility] Comment:Test Performed by [facility] [employer] [facility] [place] [address] - Released 11/12/2024 18:48 Blood Venous blood specimen / Unknown Venipuncture / Unknown 11/12/2024 10:41 AM EDT 11/12/2024 10:46 AM EDT Hal Bajwa MD LAB BLOOD ORDERABLES Performing Organization Address City/[facility]/ZIP Co de Phone Number [facility] [address] [place] [address] * (ABNORMAL) Parvovirus B19 antibody, IgG and IgM (11/12/2024 10:41 AM EDT) [facility] Parvovirus B19 IgG 7.31(H) <=0.90 IV 11/15/2024 5:15 AM EDT [facility] ([place]) Comment: INTERPRETIVE INFORMATION: Parvovirus B19 Antibody, IgG [...] 0.42 <=0.89 IV 11/15/2024 5:15 AM EDT [facility] ([place]) Comment: INTERPRETIVE INFORMATION: Parvovirus B19 [...] levels of specific IgM antibodies. Performed By: [facility] [address] [place] [address] [employer] Operator: Cal Delgado MD, PhD CLIA Number: [id number] Blood Venous blood specimen / Unknown Venipuncture / Unknown 11/12/2024 10:41 AM EDT 11/12/2024 10:48 AM EDT Hal Bajwa MD LAB BLOOD ORDERABLES [facility] [place] ([place]) [address] [place] [address] * (ABNORMAL) Mari-Rivas virus VCA, IgM (11/12/2024 10:41 AM EDT) [facility] EBV VCA IGM INTERPRETATION Positive( A) Negative 11/15/2024 1:19 PM EDT [facility] ([place]) MARI-RIVAS VIRUS VCA IGM 50.5(H) < 36.0 U/mL U/mL 11/15/2024 1:19 PM EDT [facility] ([facility]) Comment: NORMAL RANGE < 36.0 NEGATIVE ; NO SIGNIFICANT LEVEL OF DETECTABLE EBV-VCA IgM AB >= 36.0 AND < 44.0 EQUIVOCAL; REPEAT TESTING SUGGESTED >= 44.0 POSITIVE ; SIGNIFICANT LEVEL OF DETECTABLE EBV-VCA IgM AB Blood Venous blood specimen / Unknown Venipuncture / Unknown 11/12/2024 10:41 AM EDT 11/12/2024 10:48 AM EDT Hal Bajwa MD LAB BLOOD ORDERABLES Performing Organization Address [facility]/ZIP Co de Phone Number [facility] ([facility]) [address] [place] [address] * CMV IgM (11/12/2024 10:41 AM EDT) Pathologist [facility] Cytomegalovirus IgM Ab Interpretation Negative Negative 11/15/2024 1:11 PM EDT [facility] ([facility]) CYTOMEGALOVIRUS IGM ANTIBODY <8.0 < 30.0 AU/mL AU/mL 11/15/2024 1:11 PM EDT [facility] ([facility]) Comment: NORMAL RANGES: < 30.0 NEGATIVE; NO DETECTABLE IgM ANTIBODY TO CMV >= 30.0 and < 35.0 EQUIVOCAL; REPEAT TESTING SUGGESTED >= 35.0 POSITIVE; INDICATES PRESENCE OF DETECTABLE IgM ANTIBODY TO CMV Blood Venous blood specimen / Unknown Venipuncture / Unknown 11/12/2024 10:41 AM EDT 11/12/2024 10:48 AM EDT Hal Bajwa MD LAB BLOOD ORDERABLES [facility]) [address] [place] [address] * Hepatitis panel, acute (11/12/2024 4:44 AM EDT) Pathologist [facility] Hepatitis B Surface Ag Nonreactive Nonreactive 11/12/2024 12:59 PM EDT [facility] ([facility]) Hep A IgM Nonreactive Nonreactive 11/12/2024 12:59 PM EDT [facility] ([facility]) Hepatitis C Ab Nonreactive Nonreactive 11/12/2024 12:59 PM EDT [facility] ([facility]) Hep B Core Total Ab Nonreactive Nonreactive 11/12/2024 12:59 PM EDT [facility] ([facility]) Blood Venous blood specimen / Unknown 11/12/2024 4:44 AM EDT 11/12/2024 4:53 AM EDT Hal Bajwa MD LAB BLOOD ORDERABLES Performing Organization Address City/[facility] Co de Phone Number [facility]) [address] [place] [address] * CIPRIANO (11/12/2024 4:44 AM EDT) CIPRIANO Titer <1:40 <=1:40 11/16/2024 7:08 PM EDT [facility]) Comment:Test performed using [employer]FA CIPRIANO Hep-2 Test, a pre-standardized assay designed for the qualitative and semi-quantitative detection of antinuclear antibodies. Blood Venous blood specimen / Unknown Venipuncture / Unknown 11/12/2024 4:44 AM EDT 11/14/2024 12:50 PM EDT Hal Bajwa MD LAB BLOOD ORDERABLES Performing Organization Address [facility] de Phone Number [facility]) [address] [place] [address] * T3, free (11/12/2024 4:44 AM EDT) T3, Free 3.0 2.5 - 3.9 pg/mL 11/12/2024 11:22 AM EDT [facility]) Blood Venous blood specimen / Unknown 11/12/2024 4:44 AM EDT 11/12/2024 4:53 AM EDT Hal Bajwa MD LAB BLOOD ORDERABLES Performing Organization Address City/[facility] Co de Phone Number [facility] ([place]) [address] [place] [address] * US thyroid (11/11/2024 4:31 PM EDT) [...] Hal Bajwa MD IMG US PROCEDURES * [facility] flow cytometry - Miscellaneous Test (11/11/2024 9:51 AM EDT) Blood Venous blood specimen / Unknown Venipuncture / Unknown 11/11/2024 9:51 AM EDT 11/11/2024 10:10 AM EDT Narrative [facility] ([place]) - 11/13/2024 12:41 PM EDT See scanned result. Hal Bajwa MD LAB BLOOD ORDERABLES [facility] ([facility]) [address] [place] [address] * Lavender Top (11/11/2024 7:34 AM EDT) Extra Tube Hold for add-ons. 11/11/2024 9:01 AM EDT [facility] ([facility]) Comment:Auto resulted. Blood Venous blood specimen / Unknown 11/11/2024 7:34 AM EDT 11/11/2024 7:49 AM EDT Hal Bajwa MD LAB BLOOD ORDERABLES [facility] ([facility]) [address] [place] [address] * Copper, serum (11/11/2024 7:34 AM EDT) Copper 129.2 80.0 - 155.0 ug/dL 11/13/2024 1:54 AM EDT [facility] ([facility]) Comment: INTERPRETIVE INFORMATION: Copper, Serum or Plasma [...] developed and its performance characteristics determined by [facility]. It has not been cleared or approved by the US Food and Drug Administration. This test was performed in a CLIA certified laboratory and is intended for clinical purposes. Performed By: [facility] [address] [place] [address] [employer] Operator: Cal Delgado MD, PhD CLIA Number: [id number] Blood Venous blood specimen / Unknown Venipuncture / Unknown 11/11/2024 7:34 AM EDT 11/11/2024 7:49 AM EDT Hal Bajwa MD LAB BLOOD ORDERABLES [facility] ([facility]) [address] [place] [address] * (ABNORMAL) Urinalysis with reflex culture (11/10/2024 5:26 PM EDT) Color, Urine Yellow Colorless, Yellow, Light-Yellow 11/10/2024 7:15 PM EDT [facility] ([facility]) Clarity, Urine Clear Clear 11/10/2024 7:15 PM EDT [facility] ([facility]) pH, Urine 6.0 5.0 - 8.0 pH 11/10/2024 7:15 PM EDT [facility] ([facility]) Leukocytes, Urine Negative Negative 11/10/2024 7:15 PM EDT [facility] ([facility]) Nitrite, Urine Negative Negative 11/10/2024 7:15 PM EDT [facility] ([facility]) Protein, Urine Negative Negative mg/dL 11/10/2024 7:15 PM EDT [facility] ([facility]) Glucose, Urine Normal Normal mg/dL 11/10/2024 7:15 PM EDT [facility] ([facility]) Bilirubin, Urine Negative Negative 11/10/2024 7:15 PM EDT [facility] ([facility]) Specific [place], Urine >1.050(H) 1.010 - 1.030 11/10/2024 7:15 PM EDT [facility] ([facility]) Ketones, Urine Negative Negative mg/dL 11/10/2024 7:15 PM EDT [facility] Blood, Urine Negative Negative 11/10/2024 7:15 PM EDT [facility] ([facility]) Urobilinogen, Urine Normal Normal mg/dL 11/10/2024 7:15 PM EDT [facility] ([facility]) Urine Urine specimen obtained by clean catch procedure / Unknown Non-blood Collection / Unknown 11/10/2024 5:26 PM EDT 11/10/2024 6:52 PM EDT Narrative [facility] ([facility]) - 11/10/2024 7:15 PM EDT Microscopics not performed on urines with negative chemical reactions unless requested on original order. Hal Bajwa MD LAB URINE ORDERABLES Performing Organization Address City/[facility]/ZIP Co de Phone Number [facility] ([facility]) [address] [place] [address] * Protein, urine, random (11/10/2024 5:26 PM EDT) Protein, Ur 14.7 mg/dL 11/12/2024 12:39 PM EDT [facility] ([facility]) Comment:There are no establi shed reference values for random urine specimens. Urine Urine specimen obtained by clean catch procedure / Unknown Non-blood Collection / Unknown 11/10/2024 5:26 PM EDT 11/10/2024 6:52 PM EDT Hal Bajwa MD LAB URINE ORDERABLES Performing Organization Address [facility]/ZIP Co de Phone Number [facility] ([facility]) [address] [place] [address] * Creatinine, urine, random (11/10/2024 5:26 PM EDT) Creatinine, Ur 142.0 26 - 299 mg/dL 11/12/2024 12:39 PM EDT [facility] ([facility]) Urine Urine specimen obtained by clean catch procedure / Unknown Non-blood Collection / Unknown 11/10/2024 5:26 PM EDT 11/10/2024 6:52 PM EDT Hal Bajwa MD LAB URINE ORDERABLES [facility] ([facility]) [address] [place] [address] * CT chest w IV contrast (11/10/2024 4:58 PM EDT) Anatomical Region Laterality Modality Body, Chest Computed Tomogra phy 11/11/2024 8:0 2 AM EDT Impressions 11/11/2024 8:04 AM EDT [...] pattern in the spleen, spleen is borderline [id number] cm. Bibasilar atelectasis. Some scarring noted. Mild [...] and the preliminary interpretation by the hematology optical laboratory technician revealed adequate spicules. Repeat bone marrow aspirate [...] consent was obtained. All CT scans at [facility] use dose modulation, iterative reconstruction, and/or weight [...] obtained, and thepreliminary interpretation by the hematology optical laboratory technician revealed adequatespicules. Repeat bone marrow aspirate with [...] Electronically signed: Scott Rodriguez. Hal Bajwa MD [facility] CT PROCEDURES * (ABNORMAL) ADAMTS 13 activity (11/10/2024 11:55 AM EDT) [id number] Activity 53(L) >=61 % 025 7:00 PM EDT [facility] ([facility]) Comment: INTERPRETIVE INFORMATION: [id number] Activity [id number] levels of less than 10 percent may be associated with either inherited (Wilmer-Felipe Syndrome) or acquired thrombotic thrombocytopenic purpura (TTP). A variety of medical conditions may result in a mild to moderate deficiency of FEYHOE10 activity. Recent plasma exchange therapy may raise the observed [id number] activity. This test was developed and its performance characteristics determined by [employer]. It has not been cleared or approved by the [place] Food and Drug Administration. This test was performed in a CLIA certified laboratory and is intended for clinical purposes. Performed By: [facility] [employer] [address] [place] [address] [employer] Operator: Cal Delgado MD, PhD CLIA Number: [id number] Blood Venous blood specimen / Unknown Venipuncture / Unknown 11/10/2024 11:55 AM EDT 11/10/2024 12:01 PM EDT Hal Bajwa MD LAB BLOOD ORDERABLES Performing Organization Address City/[facility]/ZIP Co de Phone Number [facility] ([facility]) [address] [place] [address] * APTT (11/10/2024 11:55 AM EDT) aPTT 32.5 25.0 - 35.0 Seconds 11/10/2024 12:22 PM EDT [facility] ([facility]) Comment:Clinical significanc e of the APTT is questionable in the presence of heparin. Blood Venous blood specimen / Unknown Venipuncture / Unknown 11/10/2024 11:55 AM EDT 11/10/2024 12:01 PM EDT Hal Bajwa MD LAB BLOOD ORDERABLES [facility] ([facility]) [address] [place] [address] * Fibrinogen (11/10/2024 11:55 AM EDT) Fibrinogen 259 150 - 425 mg/dL 11/10/2024 12:21 PM EDT [facility] ([facility]) Blood Venous blood specimen / Unknown Venipuncture / Unknown 11/10/2024 11:55 AM EDT 11/10/2024 12:01 PM EDT Hal Bajwa MD LAB BLOOD ORDERABLES Performing Organization Address City/[facility]/ZIP Co de Phone Number [facility] ([facility]) [address] [place] [address] * (ABNORMAL) Haptoglobin (11/10/2024 11:55 AM EDT) Haptoglobin <3.5(L) 32.0 - 197.0 mg/dL 11/10/2024 2:04 PM EDT [facility] ([facility]) Comment:Testing performed us ing a new methodology, turbidimetry. Normal ranges have been updated. Old normal range was 26-164 mg/dL. Blood Venous blood specimen / Unknown Venipuncture / Unknown 11/10/2024 11:55 AM EDT 11/10/2024 12:01 PM EDT Hal Bajwa MD LAB BLOOD ORDERABLES Performing Organization Address City/[facility]/ZIP Co de Phone Number [facility] ([facility]) [address] [place] [address] * (ABNORMAL) Iron and TIBC (11/10/2024 5:13 AM EDT) Iron 24(L) 50 - 212 ug/dL 11/10/2024 10:34 PM EDT [facility] ([facility]) TIBC 247(L) 250 - 450 ug/dL 11/10/2024 10:34 PM EDT [facility] ([facility]) Iron Saturation 10(L) 20 - 50 % 10:34 PM EDT [facility] ([facility]) UIBC 223.0 155.0 - 355.0 ug/dL 11/10/2024 10:34 PM EDT [facility] ([facility]) Blood Venous blood specimen / Unknown Venipuncture / Unknown 11/10/2024 5:13 AM EDT 11/10/2024 5:39 AM EDT Hal Bajwa MD LAB BLOOD ORDERABLES Performing Organization Address [facility]/ZIP Co de Phone Number [facility] ([facility]) [address] [place] [address] * Peripheral blood smear, path review (11/10/2024 5:13 AM EDT) WBC Comment Leukopenia, no abnormal cells seen. 11/10/2024 2:00 PM EDT [facility] ([facility]) RBC Comment Anemia, no specific RBC morphology. Macrocytosis , check B12, folate, liver and thyroid function. 11/10/2024 2:00 PM EDT [facility] ([facility]) Platelet Comment Severely decreased. 11/10/2024 2:00 PM EDT [facility] ([facility]) Blood Venous blood specimen / Unknown Venipuncture / Unknown 11/10/2024 5:13 AM EDT 11/10/2024 5:41 AM EDT Narrative [facility] ([facility]) - 11/10/2024 2:00 PM EDT Pancytopenia, bone marrow pending. . Hal Bajwa MD LAB PATHOLOGY ORDERA BLES Performing Organization Address [facility] Co de Phone Number [facility] ([facility]) [address] [place] [address] * (ABNORMAL) Reticulocyte panel (11/10/2024 5:13 AM EDT) Retic Ct Abs 0.0425 0.0250 - 0.1000 10*6/uL 11/10/2024 5:28 PM EDT [facility] ([facility]) Retic Ct Pct 1.75 0.50 - 1.80 % 11/10/2024 5:28 PM EDT [facility] ([facility]) Immature Reticulocyte Fraction % 22.4(H) 2 - 16 % 11/10/2024 5:28 PM EDT [facility] ([facility]) Reticulocyte Hemoglobin 37.6(H) 28.0 - 36.0 pg 11/10/2024 5:28 PM EDT [facility] ([facility]) Blood Venous blood specimen / Unknown Venipuncture / Unknown 11/10/2024 5:13 AM EDT 11/10/2024 5:41 AM EDT Hal Bajwa MD LAB BLOOD ORDERABLES [facility] ([facility]) [address] [place] [address] * (ABNORMAL) CBC (11/10/2024 5:13 AM EDT) Auto WBC 3.48(L) 4.00 - 10.60 10*3/uL 11/10/2024 6:20 AM EDT [facility] ([facility]) RBC 2.42(L) 3.80 - 5.00 10*6/uL 11/10/2024 6:20 AM EDT [facility] ([facility]) Hemoglobin 8.7(L) 12.0 - 15.0 g/dL 11/10/2024 6:20 AM EDT [facility] ([facility]) Hematocrit 25.9(L) 36.0 - 45.0 % 11/10/2024 6:20 AM EDT [facility] ([facility]) MCV 107.0(H) 82.0 - 98.0 fL 11/10/2024 6:20 AM EDT [facility] ([facility]) MCH 36.0(H) 27.0 - 33.0 pg 11/10/2024 6:20 AM EDT [facility] ([facility]) MCHC 33.6 32.0 - 35.0 g/dL 11/10/2024 6:20 AM EDT [facility] ([facility]) RDW 11/10/2024 6:20 AM EDT [facility] ([facility]) Comment:Unable to calculate Platelets 24(L) 150 - 400 10*3/uL 11/10/2024 6:20 AM EDT [facility] ([facility]) Immature Platelet Fraction % 7.4(H) 0.8 - 6.3 % 11/10/2024 6:20 AM EDT [facility] ([facility]) Blood Venous blood specimen / Unknown Venipuncture / Unknown 11/10/2024 5:13 AM EDT 11/10/2024 5:41 AM EDT Rebecca Garsiamaylin CARDOZA LAB BLOOD ORDERABLES [facility]) [address] [place] [address] * (ABNORMAL) Lactate dehydrogenase (11/10/2024 5:13 AM EDT) LD 3,489(H) 140 - 271 U/L 11/10/2024 12:12 PM EDT [facility]) Blood Venous blood specimen / Unknown Venipuncture / Unknown 11/10/2024 5:13 AM EDT 11/10/2024 5:39 AM EDT Hal Bajwa MD LAB BLOOD ORDERABLES Performing Organization Address [facility] Co de Phone Number [facility]) [address] [place] [address] * Folate (11/10/2024 5:13 AM EDT) Folate 10.24 6.6 - 1,000 ng/mL 11/10/2024 12:41 PM EDT [facility]) Blood Venous blood specimen / Unknown Venipuncture / Unknown 11/10/2024 5:13 AM EDT 11/10/2024 5:39 AM EDT Hal Bajwa MD LAB BLOOD ORDERABLES Performing Organization Address City/[facility]/ZIP Co de Phone Number [facility]) [address] [place] [address] * Ferritin (11/10/2024 5:13 AM EDT) Ferritin 156.0 11.0 - 307.0 ng/mL 11/10/2024 12:36 PM EDT [facility] ([facility]) Blood Venous blood specimen / Unknown Venipuncture / Unknown 11/10/2024 5:13 AM EDT 11/10/2024 5:39 AM EDT Hal Bajwa MD LAB BLOOD ORDERABLES [facility] ([facility]) [address] [place] [address] * ECG 12 lead (11/09/2024 8:20 PM EDT) Ventricular Rate 58 BPM GE MUSE Atrial Rate 58 BPM GE MUSE TX Interval 126 ms GE MUSE QRS DURATION 80 ms GE MUSE QT Interval 442 ms GE MUSE QTC CALCULATION(BAZE TT) 433 ms GE MUSE P Humble 37 degrees GE MUSE R-Humble -7 degrees GE MUSE T Wave Humble 18 degrees GE MUSE 11/09/2024 8:02 PM [...] Gage (80) on 11/09/2024 9:47:55 PM Rebecca Lang CNP ECG ORDERABLES [employer] MUSE * Blood culture, peripheral #2 (11/09/2024 7:47 PM EDT) Only the most recent of2 resultswithin the time period is included. Blood Culture No growth at 5 days ILIA 11/14/2024 10:01 PM EDT [facility] ([facility]) Blood Venous blood specimen / Unknown Venipuncture / Unknown 11/09/2024 7:47 PM EDT 11/09/2024 9:01 PM EDT [facility] MICROBIOLOGY - G ENERAL ORDERABLES [facility]) [address] [place], [place] [id number] * Lactic acid, plasma (11/09/2024 7:47 PM EDT) Pathologist [facility] Lactate 0.7 0.5 - 2.2 mmol/L 11/09/2024 8:52 PM EDT [facility]) Blood Venous blood specimen / Unknown Venipuncture / Unknown 11/09/2024 7:47 PM EDT 11/09/2024 8:05 PM EDT [facility] LAB BLOOD ORDERABLES [facility]) [address] [place] [address] * High Sensitivity Troponin I (11/09/2024 7:46 PM EDT) Pathologist [facility] High Sensitivity Troponin I 7 <15 ng/L 11/09/2024 9:39 PM EDT [facility]) Blood Venous blood specimen / Unknown Venipuncture / Unknown 11/09/2024 7:46 PM EDT 11/09/2024 9:03 PM EDT [facility] LAB BLOOD ORDERABLES [facility]) [address] [place] [address] * (ABNORMAL) TSH3 Reflex to FT4 (11/09/2024 7:46 PM EDT) TSH 0.13(L) 0.34 - 5.60 mIU/L 11/09/2024 9:53 PM EDT [facility] ([facility]) Blood Venous blood specimen / Unknown Venipuncture / Unknown 11/09/2024 7:46 PM EDT 11/09/2024 9:03 PM EDT Rebecca Lang [facility] BLOOD ORDERABLES [facility] ([facility]) [address] [place] [address] * (ABNORMAL) Venous blood gas with ionized calcium (11/09/2024 7:46 PM EDT) Pathologist [facility] pH, Krystian 7.43(H) 7.31 - 7.41 11/09/2024 8:17 PM EDT [facility] pCO2, Krystian 44 40 - 50 mmHg 11/09/2024 8:17 PM EDT [facility] pO2, Krystian 45 35 - 45 mmHg 11/09/2024 8:17 PM EDT [facility] HCO3, Venous 29.2 mmol/L 11/09/2024 8:17 PM EDT [facility] Calcium, Ion 1.24 1.15 - 1.33 mmol/L 11/09/2024 8:17 PM EDT [facility] O2 Sat, Krystian 75.0 65.0 - 75.0 % 11/09/2024 8:17 PM EDT [facility] Base Excess, Krystian 4.2 mmol/L 11/09/2024 8:17 PM EDT [facility] Blood Venous blood specimen / Unknown Venipuncture / Unknown 11/09/2024 7:46 PM EDT 11/09/2024 8:15 PM EDT Rebecca Lang [facility] BLOOD ORDERABLES [facility] [address] [place] [address], * Anti C3 JUAN MANUEL (11/09/2024 7:46 PM EDT) Pathologist [facility] Anti C3 JUAN MANUEL NEG 11/09/2024 11:50 PM EDT [facility] Blood Venous blood specimen / Unknown Venipuncture / Unknown 11/09/2024 7:46 PM EDT 11/09/2024 9:01 PM EDT [facility] BLOOD BANK TEST ORDERABLES Performing Organization Address City/[facility]/ZIP Co de Phone Number [facility] * Anti IgG JUAN MANUEL (11/09/2024 7:46 PM EDT) Anti IgG JUAN MANUEL NEG 11/09/2024 10:36 PM EDT [facility] Blood Venous blood specimen / Unknown Venipuncture / Unknown 11/09/2024 7:46 PM EDT 11/09/2024 9:01 PM EDT [facility] BLOOD BANK TEST ORDERABLES Performing Organization Address City/[facility] Co de Phone Number [facility] * Antibody identification (11/09/2024 7:46 PM EDT) Antibody ID E 11/09/2024 11:27 PM EDT [facility] Blood Venous blood specimen / Unknown Venipuncture / Unknown 11/09/2024 7:46 PM EDT 11/09/2024 9:01 PM EDT [facility] BLOOD BANK TEST ORDERABLES Performing Organization Address City/[facility] Co de Phone Number [facility] * (ABNORMAL) Vitamin D 25 hydroxy (11/09/2024 7:46 PM EDT) Vit D, 25-Hydroxy 10.2(L) 30.0 - 80.0 ng/mL 11/09/2024 9:54 PM EDT [facility] ([facility]) Comment:>80.0 Toxicity possi ble Blood Venous blood specimen / Unknown Venipuncture / Unknown 11/09/2024 7:46 PM EDT 11/09/2024 9:03 PM EDT Rebecca Lang [facility] BLOOD ORDERABLES Performing Organization Address City/[facility]/ZIP Co de Phone Number [facility]) [address] [place], [place] [id number] * (ABNORMAL) Protime-INR (11/09/2024 7:46 PM EDT) Protime 15.1(H) 12.3 - 14.8 Seconds 11/09/2024 9:23 PM EDT [facility] ([facility]) INR 1.20(H) 0.90 - 1.10 11/09/2024 9:23 PM EDT [facility] ([facility]) Comment: [facility] RECOMMENDED INR FOR WARFARIN THERAPY CONDITION INR [...] PM EDT 11/09/2024 9:01 PM EDT Rebecca Lang [facility] BLOOD ORDERABLES Performing Organization Address City/[facility]/ZIP Co de Phone Number [facility]) [address] [place], [place] [phone] * Type and screen (11/09/2024 7:46 PM EDT) ABO Grouping O 11/09/2024 10:22 PM EDT [facility] Rh Type POS 11/09/2024 10:22 PM EDT [facility] Ab Scrn POS 11/09/2024 10:22 PM EDT [facility] Blood Venous blood specimen / Unknown Venipuncture / Unknown 11/09/2024 7:46 PM EDT 11/09/2024 9:01 PM EDT [facility] TEST ORDERABLES [facility] * T4, free (11/09/2024 7:46 PM EDT) Free T4 1.41 0.71 - 1.85 ng/dL 11/09/2024 11:25 PM EDT [facility] ([facility]) Blood Venous blood specimen / Unknown Venipuncture / Unknown 11/09/2024 7:46 PM EDT 11/09/2024 9:03 PM EDT [facility] BLOOD ORDERABLES Performing Organization Address City/[facility]/ZIP Co de Phone Number [facility] ([facility]) [address] [place] [address] * Phosphorus (11/09/2024 7:46 PM EDT) Phosphorus 2.9 2.5 - 5.0 mg/dL 11/09/2024 9:28 PM EDT [facility] ([facility]) Blood Venous blood specimen / Unknown Venipuncture / Unknown 11/09/2024 7:46 PM EDT 11/09/2024 9:03 PM EDT [facility] BLOOD ORDERABLES Performing Organization Address City/[facility]/ZIP Co de Phone Number [facility] ([facility]) [address] [place] [address] * (ABNORMAL) Vitamin B12 (11/09/2024 7:46 PM EDT) Vitamin B-12 1,113(H) 180 - 914 pg/mL 11/09/2024 9:56 PM EDT [facility] ([facility]) Comment: REFERENCE RANGES: 180-914 pg/mL Normal 145-179 pg/mL Indeterminate <145 pg/mL Deficient Blood Venous blood specimen / Unknown Venipuncture / Unknown 11/09/2024 7:46 PM EDT 11/09/2024 9:03 PM EDT [facility] BLOOD ORDERABLES [facility]) [address] [place] [address] * (ABNORMAL) CK total and CKMB (11/09/2024 7:46 PM EDT) Total CK 43.0 30.0 - 223.0 U/L 11/09/2024 9:39 PM EDT [facility] ([facility]) CK-MB Index 3.0(H) 0.0 - 1.9 11/09/2024 9:39 PM EDT [facility] ([facility]) CK-MB 1.3 0.0 - 5.0 ng/mL 11/09/2024 9:39 PM EDT [facility] ([facility]) Blood Venous blood specimen / Unknown Venipuncture / Unknown 11/09/2024 7:46 PM EDT 11/09/2024 9:03 PM EDT [facility] LAB BLOOD ORDERABLES [facility]) [address] [place] [address] * Ammonia (11/09/2024 7:46 PM EDT) Ammonia 31 18 - 72 umol/L 11/09/2024 8:53 PM EDT [facility] ([facility]) Blood Venous blood specimen / Unknown Venipuncture / Unknown 11/09/2024 7:46 PM EDT 11/09/2024 8:05 PM EDT Rebecca Lang [employer] LAB BLOOD ORDERABLES [facility] ([facility]) [address] [place] [address] from Last 3 Months Advance Directives * Full Code (Latest Code Status on File) Date Activated Date Inactivated Comments 11/09/2024 8:51 PM 11/14/2024 5:06 PM Care Teams Junior Net Developer Relationship Specialty Start Date End Date Henrik Downing MD [address] [facility] [place] [address] PCP - General Family Medicine 11/10/24
--- OUTSIDE RECORDS SUMMARY | 2024-11-17 07:43 | XMS_ITS | Clinical Summary ---
Author Organization [facility] Address [address] [place] [address] Care Team Providers Care Filter Tank Operator Name Role Phone Henrik Downing MD Primary Care Provider [phone] Allergies No known active allergies Medications Medication [...] capsule. Active ergocalciferol (Vitamin D-2) 1.25 MG (78727 Units) capsuleIndication s:Vitamin D deficiency Take 1 [...] schistocytes, repeat smear here negative for schistocytes -[id number] activity mildly low which is nonspecific, however [...] repeat smear here negative for schistocytes -f/u [id number] activity, [facility] flow, BMBx results -CT imaging [...] repeat smear here negative for schistocytes -f/u [id number] activity, [facility] flow, BMBx results -CT imaging negative for LAD -HemOnc on board, grateful for their input -Daily CBC however minimize phlebotomy as much as possible (re: BMP every Wed/) -Transfuse for Hgb <7 -Transfuse for Plt <10 or <20 and active bleeding Assessment & Plan (11/10/2024 3:28 PM EDT): -Concerning for MDS vs MPN vs malignancy, less likely MAHA process -OSH smear showing rare schistocytes, repeat smear here -Check hemolysis labs, [id number] -HemOnc on board, grateful for their input -Will be undergoing BMBx today -Daily CBC however minimize phlebotomy as much as possible Assessment & Plan (11/09/2024 11:41 PM EDT): - Initial labs at [facility] found to be WBC 2.2, hemoglobin 5.3, platelet count 31 Repeat labs at [facility] show WBC 3.49, hemoglobin 8.4, platelet count [...] (11/09/2024 11:34 PM EDT): - Continue Celexa Encounters Date Type Department Care Team Description 11/09/2024 6:46 PM EDT - 11/14/2024 2:56 PM EDT Hospital Encounter [facility] 4AB Urology [address] [place] [address] Micky Colbert MD Spencer, Caleb T, MD Chang, Kyu Chul, MD Pancytopenia (CMS/HCC) (Primary Dx); Vitamin D deficiency; Vitamin B12 deficiency Discharge Disposition: Home or Self Care () 11/09/2024 Travel from Last 3 Months Social History Tobacco Use Types Packs/Day Years Used Date Smoking Tobacco: Former Cigarettes 1 48.4 S tarted: 06/28/1976 Smokeless Tobacco: Never Tobacco Cessation:Counseling Given: Not Answered Alcohol Use Standard Drinks/Week Comments Never 0 (1 standard drink = 0.6 oz pur e alcohol) [facility] Utilities Answer Date Recorded In the [...] any time in the past 12 m onths, were you homeless or living in a half-way (including now)? No 11/09/2024 Hunger Vital Sign [...] Description 11/23/2024 10:00 AM EDT [facility] [address] [place] [address] Юлия Guerra MD [address] [place] [address] Health Maintenance Due Date Last Done Comments CT Colonography 1963 Diabetes: Hemoglobin A1C 1963 FIT-DNA 1963 FIT 1963 FOBT 1963 Sigmoidoscopy 1963 Pneumococcal Vaccine: Pediatrics (0 to 5 Years) and At-Risk Patients (6 to 64 Years) (1 of 2 - PCV) 1969 Diabetes: Retinopathy Screening 1973 Depression Screening 1975 Diabetes: Urine Protein Screening 1982 Pap Smear 1984 Cervical Cancer Screening 1993 HPV/Cotest 1993 Mammogram 2003 Zoster Vaccines (1 of 2) 2013 Adult Tetanus 02/01/2020 01/31/2010 COVID-19 Vaccine ( season) 2024 05/29/2021, 09/28/2020, 09/07/2020 Influenza Vaccine (Season Ended) 2025 05/29/2021, 05/16/2018, 05/04/2018, Additional history exists Colonoscopy 02/28/2029 02/28/2019 Colorectal Cancer Screening 02/28/2029 HIB Vaccines Aged Out No longer eligi ble based on patient's age to complete this topic HPV Vaccines Aged Out No longer eligi ble based on patient's age to complete this topic IPV Vaccines Aged Out No longer eligi ble based on patient's age to complete this topic Meningococcal B Vaccine Aged Out No l onger eligible based on patient's age to complete this topic Meningococcal Vaccine Aged Out No masood don eligible based on patient's age to complete this topic Rotavirus Vaccines Aged Out No longer eligible based on patient's age to complete this topic Procedures Procedure Name Priority Date/Time Associated Diagnosis [...] - 105 mg/dL 11/14/2024 11:43 AM EDT [facility] Comment:[email or web address] Blood Capillary blood specimen / Unknown 11/14/2024 11:33 AM EDT 11/14/2024 11:43 AM EDT Narrative [facility] - 11/14/2024 11:43 AM EDT Waived Testing in the ED is performed under the ED CLIA certificate #[id number]. Harry Lebron MD LAB BLOOD ORDERABLES Performing Organization Address City/[facility]/ZIP Co de Phone Number [facility]) [address] [place] [address] * HIV COMBO 4G (11/14/2024 4:53 AM EDT) HIV Combo 4G Negative Negative 11/14/2024 10:06 AM EDT [facility] Comment:Received comment: Us er comments: Slide comments: Blood Venous blood specimen / Unknown Venipuncture / Unknown 11/14/2024 4:53 AM EDT 11/14/2024 4:56 AM EDT Harry Lebron MD LAB BLOOD ORDERABLES [facility] [address] [place] [address] * (ABNORMAL) CBC auto differential (11/14/2024 4:53 AM EDT) Only the most recent of5 resultswithin the time period is included. Auto WBC 3.30(L) 4.00 - 10.60 10*3/uL 11/14/2024 5:48 AM EDT [facility] RBC 2.59(L) 3.80 - 5.00 10*6/uL 11/14/2024 5:48 AM EDT [facility] Hemoglobin 8.5(L) 12.0 - 15.0 g/dL 11/14/2024 5:48 AM EDT [facility] Hematocrit 27.7(L) 36.0 - 45.0 % 11/14/2024 5:48 AM EDT [facility] MCV 106.9(H) 82.0 - 98.0 fL 11/14/2024 5:48 AM EDT [facility] MCH 32.8 27.0 - 33.0 pg 11/14/2024 5:48 AM EDT [facility] MCHC 30.7(L) 32.0 - 35.0 g/dL 11/14/2024 5:48 AM EDT [facility] RDW 20.9(H) 11.5 - 15.0 % 11/14/2024 5:48 AM EDT [facility] Platelets 113(L) 150 - 400 10*3/uL 11/14/2024 5:48 AM EDT [facility] nRBC % 1.8(H) 0 % 11/14/2024 5:48 AM EDT [facility] Immature Platelet Fraction % 5.0 0.8 - 6.3 % 11/14/2024 5:48 AM EDT [facility] Blood Venous blood specimen / Unknown Venipuncture / Unknown 11/14/2024 4:53 AM EDT 11/14/2024 4:56 AM EDT Hal Bajwa MD LAB BLOOD ORDERABLES [facility]) [address] [place] [address] * Light Green Top (11/14/2024 4:53 AM EDT) Only the most recent of3 resultswithin the time period is included. Extra Tube Hold for add-ons. 11/14/2024 7:01 AM EDT [facility] Comment:Auto resulted. Blood Venous blood specimen / Unknown Venipuncture / Unknown 11/14/2024 4:53 AM EDT 11/14/2024 5:03 AM EDT Hal Bajwa MD LAB BLOOD ORDERABLES Performing Organization Address City/[facility]/ZIP Co de Phone Number [facility] [address] [place] [address] * (ABNORMAL) Manual Differential (11/14/2024 4:53 AM EDT) Only the most recent of5 resultswithin the time period is included. Immature Granulocytes % 2.4(H) 0.0 - 1.0 % 11/14/2024 7:54 AM EDT [facility]) Neutrophils Absolute 1.8 1.6 - 7.6 10*3/uL 11/14/2024 7:54 AM EDT [facility] Lymphocytes Absolute 0.82(L) 1.20 - 4.00 10*3/uL 11/14/2024 7:54 AM EDT [facility] Monocytes Absolute 0.55 0.10 - 1.00 10*3/uL 11/14/2024 7:54 AM EDT [facility] Eosinophils Absolute 0.07 0.00 - 0.50 10*3/uL 11/14/2024 7:54 AM EDT [facility] Basophils Absolute 0.01 0.00 - 0.20 10*3/uL 11/14/2024 7:54 AM EDT [facility] Anisocytosis Moderate 11/14/2024 7:54 AM EDT [facility] Poikilocytes Slight 11/14/2024 7:54 AM EDT [facility] Polychromasia Slight 11/14/2024 7:54 AM EDT [facility] Neutrophils % 53.7 40.0 - 72.0 % 11/14/2024 7:54 AM EDT [facility] Lymphocytes % 24.8 20.0 - 45.0 % 11/14/2024 7:54 AM EDT [facility] Monocytes % 16.7(H) 5.0 - 12.0 % 11/14/2024 7:54 AM EDT [facility] Eosinophils % 2.1 0.0 - 6.0 % 11/14/2024 7:54 AM EDT [facility] Basophils % 0.3 0.0 - 1.0 % 11/14/2024 7:54 AM EDT [facility] Immature Granulocytes Absolute 0.08 0.00 - 0.20 10*3/uL 11/14/2024 7:54 AM EDT [facility] Blood Venous blood specimen / Unknown Venipuncture / Unknown 11/14/2024 4:53 AM EDT 11/14/2024 4:56 AM EDT Hal Bajwa MD LAB BLOOD ORDERABLES [facility] [address] [place] [address] * (ABNORMAL) Basic metabolic panel (11/14/2024 4:53 AM EDT) Only the most recent of2 resultswithin the time period is included. Sodium 142 136 - 145 mmol/L 11/14/2024 1:25 PM EDT [facility] Potassium 3.8 3.5 - 5.1 mmol/L 11/14/2024 1:25 PM EDT [facility] Chloride 111(H) 98 - 107 mmol/L 11/14/2024 1:25 PM EDT [facility] CO2 29 21 - 31 mmol/L 11/14/2024 1:25 PM EDT [facility] BUN 11 7 - 25 mg/dL 11/14/2024 1:25 PM T [facility] Creatinine 0.58(L) 0.60 - 1.20 mg/dL 11/14/2024 1:25 PM T [facility] Glucose 122(H) 70 - 100 mg/dL 11/14/2024 1:25 PM T [facility] Calcium 8.3(L) 8.6 - 10.3 mg/dL 11/14/2024 1:25 PM T [facility] Anion Gap 6(L) 7 - 20 mmol/L 11/14/2024 1:25 PM T [facility] eGFR 102.9 >60.0 mL/min/1. 73m*2 11/14/2024 1:25 PM T [facility] Comment:[facility] s estimated glomerular filtration rate (eGFR) [...] individuals. BUN/Creatinine Ratio 19.0 10/27 1:25 PM T [facility] Blood Venous blood specimen / Unknown Venipuncture / Unknown 11/14/2024 4:53 AM EDT 11/14/2024 5:03 AM EDT Harry Lebron MD LAB BLOOD ORDERABLES [facility] [address] [place] [address] * Prepare RBC (11/13/2024 7:33 AM EDT) Only the most recent of2 resultswithin the time period is included. PRODUCT CODE [id number] [facility] Unit Number [id number] [facility] Unit ABO O [facility] Unit Rh POS [facility] Dispense Status RE [facility] Blood Expiration Date [facility] Product Blood Type 5100 [facility] Unit Volume 300 mL [facility] PRODUCT CODE [id number] [facility] Unit Number [id number] [facility] Unit ABO O [facility] Unit Rh POS [facility] Dispense Status RE [facility] Blood Expiration Date [facility] Product Blood Type 5100 [facility] Rebecca Lang [facility] PRODUCT O RDERABLES [facility] * (ABNORMAL) HSV 1 and 2 glycoprotein g-specific antibody, IgG (11/13/2024 4:43 AM EDT) HSV 1 Glycoprotein G Ab, IgG 8.77(H) <=0.89 IV 11/15/2024 1:11 AM EDT [facility] ([facility]) Comment: REFERENCE INTERVAL: HSV 1 Glycoprotein G [...] 0.13 <=0.89 IV 11/15/2024 1:11 AM EDT [facility] [employer]) Comment: REFERENCE INTERVAL: HSV 2 Glycoprotein G [...] HSV-2 is </= 3.0 IV. Performed By: [facility] [address] [place] [address] Olive Pitter: Cal Delgado MD, PhD CLIA Number: [id number] Blood Venous blood specimen / Unknown Venipuncture / Unknown 11/13/2024 4:43 AM EDT 11/13/2024 5:07 AM EDT Hal Bajwa MD LAB BLOOD ORDERABLES [facility]) [address] [place] [address] * Cold agglutinin screen (11/13/2024 4:43 AM EDT) Pathologist [facility] Cold Agglutinin Titer <1:32 <1:32 11/15/2024 10:52 PM EDT [facility] [employer]) Comment: INTERPRETIVE INFORMATION: Cold Agglutinins Titers of [...] disease, and common respiratory disease. Performed By: [facility] [address] [place] [address] Olive Pitter: Cal Delgado MD, PhD CLIA Number: [id number] Blood Venous blood specimen / Unknown Venipuncture / Unknown 11/13/2024 4:43 AM EDT 11/13/2024 5:07 AM EDT Hal Bajwa MD LAB BLOOD ORDERABLES Performing Organization Address City/[facility]/ZIP Co de Phone Number [facility] ([facility] [address] [place] [address] * (ABNORMAL) Protein electrophoresis, serum (11/13/2024 4:43 AM EDT) Total Protein 4.8(L) 6.0 - 8.3 g/dL 11/15/2024 2:20 PM EDT [facility] Protein Electrophoresis Interpretation Please see attached report. 11/15/2024 2:20 PM EDT [facility] Blood Venous blood specimen / Unknown Venipuncture / Unknown 11/13/2024 4:43 AM EDT 11/13/2024 5:20 AM EDT Hal Bajwa MD LAB BLOOD ORDERABLES Performing Organization Address City/[facility]/ZIP Co de Phone Number [facility] [address] [place] [address] * Magnesium (11/13/2024 4:43 AM EDT) Only the most recent of2 resultswithin the time period is included. Magnesium 2.1 1.9 - 2.7 mg/dL 11/13/2024 7:25 AM EDT [facility] Blood Venous blood specimen / Unknown Venipuncture / Unknown 11/13/2024 4:43 AM EDT 11/13/2024 5:20 AM EDT Hal Bajwa MD LAB BLOOD ORDERABLES [facility] [address] [place] [address] * (ABNORMAL) Comprehensive metabolic panel (11/13/2024 4:43 AM EDT) Only the most recent of2 resultswithin the time period is included. Sodium 143 136 - 145 mmol/L 11/13/2024 5:46 AM EDT [facility] Potassium 3.4(L) 3.5 - 5.1 mmol/L 11/13/2024 5:46 AM EDT [facility] Chloride 110(H) 98 - 107 mmol/L 11/13/2024 5:46 AM EDT [facility] CO2 30 21 - 31 mmol/L 11/13/2024 5:46 AM EDT [facility] Anion Gap 6(L) 7 - 20 mmol/L 11/13/2024 5:46 AM EDT [facility] BUN 10 7 - 25 mg/dL 11/13/2024 5:46 AM EDT [facility] Creatinine 0.48(L) 0.60 - 1.20 mg/dL 11/13/2024 5:46 AM EDT [facility] BUN/Creatinine Ratio 20.8 10/26 5:46 AM EDT [facility] Glucose 120(H) 70 - 100 mg/dL 11/13/2024 5:46 AM EDT [facility] Calcium 8.2(L) 8.6 - 10.3 mg/dL 11/13/2024 5:46 AM EDT [facility] AST 12(L) 13 - 39 U/L 11/13/2024 5:46 AM EDT [facility] ALT (SGPT) 12 7 - 52 U/L 11/13/2024 5:46 AM EDT [facility] Alkaline Phosphatase 81 34 - 104 U/L 11/13/2024 5:46 AM EDT [facility] Total Protein 5.1(L) 6.0 - 8.3 g/dL 11/13/2024 5:46 AM EDT [facility] Albumin 3.2(L) 3.5 - 5.7 g/dL 11/13/2024 5:46 AM EDT [facility] Total Bilirubin 0.7 0.3 - 1.0 mg/dL 11/13/2024 5:46 AM EDT [facility] eGFR 107.7 >60.0 mL/min/1. 73m*2 11/13/2024 5:46 AM EDT [facility] Comment:[facility] s estimated glomerular filtration rate (eGFR) [...] EDT Hal Bajwa MD LAB BLOOD ORDERABLES [facility] [address] [place] [address] * (ABNORMAL) Homocysteine (cardio), FPIA (11/12/2024 10:41 AM EDT) Homocysteine 20.5(H) 0.0 - 15.0 umol/L 11/12/2024 6:48 PM EDT [facility] Comment:Test Performed by [facility] [address] [place] [address] - Released 11/12/2024 18:48 Blood Venous blood specimen / Unknown Venipuncture / Unknown 11/12/2024 10:41 AM EDT 11/12/2024 10:46 AM EDT Hal Bajwa MD LAB BLOOD ORDERABLES [facility] [address] [place] [address] * (ABNORMAL) Parvovirus B19 antibody, IgG and IgM (11/12/2024 10:41 AM EDT) Parvovirus B19 IgG 7.31(H) <=0.90 IV 11/15/2024 5:15 AM EDT [facility] ([facility]) Comment: INTERPRETIVE INFORMATION: Parvovirus B19 [...] 0.42 <=0.89 IV 11/15/2024 5:15 AM EDT [employer] ([facility]) Comment: INTERPRETIVE INFORMATION: Parvovirus B19 Antibody, IgM [...] levels of specific IgM antibodies. Performed By: [facility] [address] [place] [address] Olive Pitter: Cal Delgado MD, PhD CLIA Number: [id number] Blood Venous blood specimen / Unknown Venipuncture / Unknown 11/12/2024 10:41 AM EDT 11/12/2024 10:48 AM EDT Hal Bajwa MD LAB BLOOD ORDERABLES [facility] ([facility]) [address] [place] [address] * (ABNORMAL) Mari-Rivas virus VCA, IgM (11/12/2024 10:41 AM EDT) Pathologist [facility] EBV VCA IGM INTERPRETATION Positive( A) Negative 11/15/2024 1:19 PM EDT [facility]) MARI-RIVAS VIRUS VCA IGM 50.5(H) < 36.0 U/mL U/mL 11/15/2024 1:19 PM EDT [facility]) Comment: NORMAL RANGE < 36.0 NEGATIVE ; NO SIGNIFICANT LEVEL OF DETECTABLE EBV-VCA IgM AB >= 36.0 AND < 44.0 EQUIVOCAL; REPEAT TESTING SUGGESTED >= 44.0 POSITIVE ; SIGNIFICANT LEVEL OF DETECTABLE EBV-VCA IgM AB Blood Venous blood specimen / Unknown Venipuncture / Unknown 11/12/2024 10:41 AM EDT 11/12/2024 10:48 AM EDT Hal Bajwa MD LAB BLOOD ORDERABLES Performing Organization Address City/[facility]/ZIP Co de Phone Number [facility]) [address] [place] [address] * CMV IgM (11/12/2024 10:41 AM EDT) [facility] Cytomegalovirus IgM Ab Interpretation Negative Negative 11/15/2024 1:11 PM EDT [facility] CYTOMEGALOVIRUS IGM ANTIBODY <8.0 < 30.0 AU/mL AU/mL 11/15/2024 1:11 PM EDT [facility] Comment: NORMAL RANGES: < 30.0 NEGATIVE; NO DETECTABLE IgM ANTIBODY TO CMV >= 30.0 and < 35.0 EQUIVOCAL; REPEAT TESTING SUGGESTED >= 35.0 POSITIVE; INDICATES PRESENCE OF DETECTABLE IgM ANTIBODY TO CMV Blood Venous blood specimen / Unknown Venipuncture / Unknown 11/12/2024 10:41 AM EDT 11/12/2024 10:48 AM EDT Hal Bajwa MD LAB BLOOD ORDERABLES Performing Organization Address City/[facility]/ZIP Co de Phone Number [facility]) [address] [place] [address] * Hepatitis panel, acute (11/12/2024 4:44 AM EDT) [facility] Hepatitis B Surface Ag Nonreactive Nonreactive 11/12/2024 12:59 PM EDT [facility] Hep A IgM Nonreactive Nonreactive 11/12/2024 12:59 PM EDT [facility] Hepatitis C Ab Nonreactive Nonreactive 11/12/2024 12:59 PM EDT [facility] Hep B Core Total Ab Nonreactive Nonreactive 11/12/2024 12:59 PM EDT [facility] Blood Venous blood specimen / Unknown 11/12/2024 4:44 AM EDT 11/12/2024 4:53 AM EDT Hal Bajwa MD LAB BLOOD ORDERABLES [facility]) [address] [place] [address] * CIPRIANO (11/12/2024 4:44 AM EDT) CIPRIANO Titer <1:40 <=1:40 11/16/2024 7:08 PM EDT [facility] Comment:Test performed using LEXX IFA CIPRIANO Hep-2 Test, a pre-standardized assay designed for the qualitative and semi-quantitative detection of antinuclear antibodies. Blood Venous blood specimen / Unknown Venipuncture / Unknown 11/12/2024 4:44 AM EDT 11/14/2024 12:50 PM EDT Hal Bajwa MD LAB BLOOD ORDERABLES Performing Organization Address [facility] Co de Phone Number [facility]) [address] [place] [address] * T3, free (11/12/2024 4:44 AM EDT) T3, Free 3.0 2.5 - 3.9 pg/mL 11/12/2024 11:22 AM EDT [facility] Blood Venous blood specimen / Unknown 11/12/2024 4:44 AM EDT 11/12/2024 4:53 AM EDT Hal Bajwa MD LAB BLOOD ORDERABLES Performing Organization Address City/[facility] Co de Phone Number [facility]) [address] [place] [address] * US thyroid (11/11/2024 4:31 PM EDT) Anatomical Region Laterality Modality Head, Neck Ultrasound 11/12/2024 9:56 AM EDT Impressions 11/12/2024 9:57 AM EDT Small heterogeneous thyroid gland likely sequelae of chronic thyroiditis Electronically signed: David Villarreal Narrative 11/12/2024 9:57 AM EDT US THYROID [...] Hal Bajwa MD IMG US PROCEDURES * [facility] flow cytometry - Miscellaneous Test (11/11/2024 9:51 AM EDT) Blood Venous blood specimen / Unknown Venipuncture / Unknown 11/11/2024 9:51 AM EDT 11/11/2024 10:10 AM EDT Narrative [facility] - 11/13/2024 12:41 PM EDT See scanned result. Hal Bajwa MD LAB BLOOD ORDERABLES [facility] ([facility]) [address] [place] [address] * Lavender Top (11/11/2024 7:34 AM EDT) Extra Tube Hold for add-ons. 11/11/2024 9:01 AM EDT [facility] Comment:Auto resulted. Blood Venous blood specimen / Unknown 11/11/2024 7:34 AM EDT 11/11/2024 7:49 AM EDT Hal Bajwa MD LAB BLOOD ORDERABLES [facility]) [address] [place] [address] * Copper, serum (11/11/2024 7:34 AM EDT) Copper 129.2 80.0 - 155.0 ug/dL 11/13/2024 1:54 AM EDT [facility] Comment: INTERPRETIVE INFORMATION: Copper, Serum or Plasma [...] developed and its performance characteristics determined by [facility]. It has not been cleared or approved by the [place] Food and Drug Administration. This test was performed in a CLIA certified laboratory and is intended for clinical purposes. Performed By: [facility] [address] [place] [address] Olive Pitter: Cal Delgado MD, PhD CLIA Number: [id number] Blood Venous blood specimen / Unknown Venipuncture / Unknown 11/11/2024 7:34 AM EDT 11/11/2024 7:49 AM EDT Hal Bajwa MD LAB BLOOD ORDERABLES [facility] [address] [place] [address] * (ABNORMAL) Urinalysis with reflex culture (11/10/2024 5:26 PM EDT) Color, Urine Yellow Colorless, Yellow, Light-Yellow 11/10/2024 7:15 PM EDT [facility] Clarity, Urine Clear Clear 11/10/2024 7:15 PM EDT [facility] pH, Urine 6.0 5.0 - 8.0 pH 11/10/2024 7:15 PM EDT [facility] Leukocytes, Urine Negative Negative 11/10/2024 7:15 PM EDT [facility] Nitrite, Urine Negative Negative 11/10/2024 7:15 PM EDT [facility] Protein, Urine Negative Negative mg/dL 11/10/2024 7:15 PM EDT [facility] Glucose, Urine Normal Normal mg/dL 11/10/2024 7:15 PM EDT [facility] Bilirubin, Urine Negative Negative 11/10/2024 7:15 PM EDT [facility] Specific [place], Urine >1.050(H) 1.010 - 1.030 11/10/2024 7:15 PM EDT [facility] Ketones, Urine Negative Negative mg/dL 11/10/2024 7:15 PM EDT [facility] Blood, Urine Negative Negative 11/10/2024 7:15 PM EDT [facility] Urobilinogen, Urine Normal Normal mg/dL 11/10/2024 7:15 PM EDT [facility] Urine Urine specimen obtained by clean catch procedure / Unknown Non-blood Collection / Unknown 11/10/2024 5:26 PM EDT 11/10/2024 6:52 PM EDT Narrative [facility] - 11/10/2024 7:15 PM EDT Microscopics not performed on urines with negative chemical reactions unless requested on original order. Hal Bajwa MD LAB URINE ORDERABLES [facility]) [address] [place] [address] * Protein, urine, random (11/10/2024 5:26 PM EDT) Protein, Ur 14.7 mg/dL 11/12/2024 12:39 PM EDT [facility] Comment:There are no establi shed reference values for random urine specimens. Urine Urine specimen obtained by clean catch procedure / Unknown Non-blood Collection / Unknown 11/10/2024 5:26 PM EDT 11/10/2024 6:52 PM EDT Hal Bajwa MD LAB URINE ORDERABLES Performing Organization Address City/[facility]/ZIP Co de Phone Number [facility]) [address], [place] [id number] * Creatinine, urine, random (11/10/2024 5:26 PM EDT) Creatinine, Ur 142.0 26 - 299 mg/dL 11/12/2024 12:39 PM EDT [facility] Urine Urine specimen obtained by clean catch procedure / Unknown Non-blood Collection / Unknown 11/10/2024 5:26 PM EDT 11/10/2024 6:52 PM EDT Hal Bajwa MD LAB URINE ORDERABLES Performing Organization Address City/[facility] Co de Phone Number [facility] [address] [place] [address] * CT chest w IV contrast (11/10/2024 [...] Degenerative changes. Old rib fractures. Procedure Note oYrdy Brothers MD - 11/11/2024 CT CHEST W [...] pattern in the spleen, spleen is borderline [id number] cm. Bibasilar atelectasis. Some scarring noted. Mild [...] and the preliminary interpretation by the hematology orthodontic laboratory technician revealed adequate spicules. Repeat bone [...] consent was obtained. All CT scans at [facility] use dose modulation, iterative reconstruction, [...] obtained, and thepreliminary interpretation by the hematology orthodontic laboratory technician revealed adequatespicules. Repeat bone marrow [...] Electronically signed: Scott Rodriguez. Hal Bajwa MD IM CT PROCEDURES * (ABNORMAL) ADAMTS 13 activity (11/10/2024 11:55 AM EDT) [id number] Activity 53(L) >=61 % 025 7:00 PM EDT [facility] ([place]) Comment: INTERPRETIVE INFORMATION: IGETIG20 Activity [id number] levels of less than 10 percent may be associated with either inherited (Wilmer-Felipe Syndrome) or acquired thrombotic thrombocytopenic purpura (TTP). A variety of medical conditions may result in a mild to moderate deficiency of YOQEPW21 activity. Recent plasma exchange therapy may raise the observed BFAIAI52 activity. This test was developed and its performance characteristics determined by [facility]. It has not been cleared or approved by the US Food and Drug Administration. This test was performed in a CLIA certified laboratory and is intended for clinical purposes. Performed By: [facility] [address] [place] [address] Olive Pitter: Cal Delgado MD, PhD CLIA Number: [id number] Blood Venous blood specimen / Unknown Venipuncture / Unknown 11/10/2024 11:55 AM EDT 11/10/2024 12:01 PM EDT Hal Bajwa MD LAB BLOOD ORDERABLES Performing Organization Address City/[facility]/ZIP Co de Phone Number [facility] ([facility]) [address] [place] [address] * APTT (11/10/2024 11:55 AM EDT) aPTT 32.5 25.0 - 35.0 Seconds 11/10/2024 12:22 PM EDT [facility] ([facility]) Comment:Clinical significanc e of the APTT is questionable in the presence of heparin. Blood Venous blood specimen / Unknown Venipuncture / Unknown 11/10/2024 11:55 AM EDT 11/10/2024 12:01 PM EDT Hal Bajwa MD LAB BLOOD ORDERABLES Performing Organization Address [facility] Co de Phone Number [facility]) [address] [place] [address] * Fibrinogen (11/10/2024 11:55 AM EDT) Fibrinogen 259 150 - 425 mg/dL 11/10/2024 12:21 PM EDT [facility] ([facility]) Blood Venous blood specimen / Unknown Venipuncture / Unknown 11/10/2024 11:55 AM EDT 11/10/2024 12:01 PM EDT Hal Bajwa MD LAB BLOOD ORDERABLES Performing Organization Address City/[facility]/ZIP Co de Phone Number [facility] ([facility]) [address] [place] [address] * (ABNORMAL) Haptoglobin (11/10/2024 11:55 AM EDT) Pathologist [facility] Haptoglobin <3.5(L) 32.0 - 197.0 mg/dL 11/10/2024 2:04 PM EDT [facility] ([facility]) Comment:Testing performed us ing a new methodology, turbidimetry. Normal ranges have been updated. Old normal range was 26-164 mg/dL. Blood Venous blood specimen / Unknown Venipuncture / Unknown 11/10/2024 11:55 AM EDT 11/10/2024 12:01 PM EDT Hal Bajwa MD LAB BLOOD ORDERABLES Performing Organization Address City/[facility]/ZIP Co de Phone Number [facility] ([facility]) [address], [place] [phone] * (ABNORMAL) Iron and TIBC (11/10/2024 5:13 AM EDT) [facility] Iron 24(L) 50 - 212 ug/dL 11/10/2024 10:34 PM EDT [facility] ([facility]) TIBC 247(L) 250 - 450 ug/dL 11/10/2024 10:34 PM EDT [facility] ([facility]) Iron Saturation 10(L) 20 - 50 % 10:34 PM EDT [facility] ([facility]) UIBC 223.0 155.0 - 355.0 ug/dL 11/10/2024 10:34 PM EDT [facility] ([facility]) Blood Venous blood specimen / Unknown Venipuncture / Unknown 11/10/2024 5:13 AM EDT 11/10/2024 5:39 AM EDT Hal Bajwa MD LAB BLOOD ORDERABLES Performing Organization Address City/[facility]/ZIP Co de Phone Number [facility] ([facility]) [address] [place] [address] * Peripheral blood smear, path review (11/10/2024 5:13 AM EDT) Pathologist [facility] WBC Comment Leukopenia, no abnormal cells seen. 11/10/2024 2:00 PM EDT [facility] ([facility]) RBC Comment Anemia, no specific RBC morphology. Macrocytosis , check B12, folate, liver and thyroid function. 11/10/2024 2:00 PM EDT [facility] ([facility]) Platelet Comment Severely decreased. 11/10/2024 2:00 PM EDT [facility] ([facility]) Blood Venous blood specimen / Unknown Venipuncture / Unknown 11/10/2024 5:13 AM EDT 11/10/2024 5:41 AM EDT Narrative [facility] ([facility]) - 11/10/2024 2:00 PM EDT Pancytopenia, bone marrow pending. . Hal Bajwa MD LAB PATHOLOGY ORDERA BLES Performing Organization Address City/State/[facility] Co de Phone Number [facility] ([facility]) [address] [place] [address] * (ABNORMAL) Reticulocyte panel (11/10/2024 5:13 AM EDT) Retic Ct Abs 0.0425 0.0250 - 0.1000 10*6/uL 11/10/2024 5:28 PM EDT [facility] ([facility]) Retic Ct Pct 1.75 0.50 - 1.80 % 11/10/2024 5:28 PM EDT [facility] ([facility]) Immature Reticulocyte Fraction % 22.4(H) 2 - 16 % 11/10/2024 5:28 PM EDT [facility] ([facility]) Reticulocyte Hemoglobin 37.6(H) 28.0 - 36.0 pg 11/10/2024 5:28 PM EDT [facility] ([facility]) Blood Venous blood specimen / Unknown Venipuncture / Unknown 11/10/2024 5:13 AM EDT 11/10/2024 5:41 AM EDT Hal Bajwa MD LAB BLOOD ORDERABLES [facility] ([facility]) [address] [place] [address] * (ABNORMAL) CBC (11/10/2024 5:13 AM EDT) Auto WBC 3.48(L) 4.00 - 10.60 10*3/uL 11/10/2024 6:20 AM EDT [facility] ([facility]) RBC 2.42(L) 3.80 - 5.00 10*6/uL 11/10/2024 6:20 AM EDT [facility] ([facility]) Hemoglobin 8.7(L) 12.0 - 15.0 g/dL 11/10/2024 6:20 AM EDT [facility] ([facility]) Hematocrit 25.9(L) 36.0 - 45.0 % 11/10/2024 6:20 AM EDT [facility] ([facility]) MCV 107.0(H) 82.0 - 98.0 fL 11/10/2024 6:20 AM EDT [facility] ([facility]) MCH 36.0(H) 27.0 - 33.0 pg 11/10/2024 6:20 AM EDT [facility] ([facility]) MCHC 33.6 32.0 - 35.0 g/dL 11/10/2024 6:20 AM EDT [facility] ([facility]) RDW 11/10/2024 6:20 AM EDT [facility] ([facility]) Comment:Unable to calculate Platelets 24(L) 150 - 400 10*3/uL 11/10/2024 6:20 AM EDT [facility] ([facility]) Immature Platelet Fraction % 7.4(H) 0.8 - 6.3 % 11/10/2024 6:20 AM EDT [facility] ([facility]) Blood Venous blood specimen / Unknown Venipuncture / Unknown 11/10/2024 5:13 AM EDT 11/10/2024 5:41 AM EDT Rebecca Lang CNP LAB BLOOD ORDERABLES [facility]) [address] [place] [address] * (ABNORMAL) Lactate dehydrogenase (11/10/2024 5:13 AM EDT) LD 3,489(H) 140 - 271 U/L 11/10/2024 12:12 PM EDT [facility] ([facility]) Blood Venous blood specimen / Unknown Venipuncture / Unknown 11/10/2024 5:13 AM EDT 11/10/2024 5:39 AM EDT Hal Bajwa MD LAB BLOOD ORDERABLES [facility]) [address], [place] [phone] * Folate (11/10/2024 5:13 AM EDT) Folate 10.24 6.6 - 1,000 ng/mL 11/10/2024 12:41 PM EDT [facility] ([facility]) Blood Venous blood specimen / Unknown Venipuncture / Unknown 11/10/2024 5:13 AM EDT 11/10/2024 5:39 AM EDT Hal Bajwa MD LAB BLOOD ORDERABLES [facility]) [address], [place] [id number] * Ferritin (11/10/2024 5:13 AM EDT) Ferritin 156.0 11.0 - 307.0 ng/mL 11/10/2024 12:36 PM EDT [facility]) Blood Venous blood specimen / Unknown Venipuncture / Unknown 11/10/2024 5:13 AM EDT 11/10/2024 5:39 AM EDT Hal Bajwa MD LAB BLOOD ORDERABLES Performing Organization Address City/[facility]/ZIP Co de Phone Number [facility] ([facility]) [address] [place] [address] * ECG 12 lead (11/09/2024 8:20 PM EDT) Ventricular Rate 58 BPM GE MUSE Atrial Rate 58 BPM GE MUSE ND Interval 126 ms GE MUSE QRS DURATION 80 ms GE MUSE QT Interval 442 ms GE MUSE QTC CALCULATION(BAZE TT) 433 ms GE MUSE P [place] 37 degrees GE MUSE R-[place] -7 degrees GE MUSE T Wave [place] 18 degrees GE MUSE 11/09/2024 8:02 PM [...] 9:47:55 PM Rebecca Lang CNP ECG ORDERABLES Performing Organization Address [facility] Co de Phone Number MUSE * Blood culture, peripheral #2 (11/09/2024 7:47 PM EDT) Only the most recent of2 resultswithin the time period is included. Blood Culture No growth at 5 days ILIA 11/14/2024 10:01 PM EDT [facility] ([facility]) Blood Venous blood specimen / Unknown Venipuncture / Unknown 11/09/2024 7:47 PM EDT 11/09/2024 9:01 PM EDT Rebecca Lang [facility] LAB MICROBIOLOGY - G ENERAL ORDERABLES Performing Organization Address City/[facility]/ZIP Co de Phone Number [facility] ([place]) [address], [place] [phone] * Lactic acid, plasma (11/09/2024 7:47 PM EDT) [facility] Lactate 0.7 0.5 - 2.2 mmol/L 11/09/2024 8:52 PM EDT [facility]) Blood Venous blood specimen / Unknown Venipuncture / Unknown 11/09/2024 7:47 PM EDT 11/09/2024 8:05 PM EDT [facility] LAB BLOOD ORDERABLES [facility]) [address] [place] [address] * High Sensitivity Troponin I (11/09/2024 7:46 PM EDT) [facility] High Sensitivity Troponin I 7 <15 ng/L 11/09/2024 9:39 PM EDT [facility]) Blood Venous blood specimen / Unknown Venipuncture / Unknown 11/09/2024 7:46 PM EDT 11/09/2024 9:03 PM EDT Rebecca [facility]De[facility] LAB BLOOD ORDERABLES Performing Organization Address City/[facility]/ZIP Co de Phone Number [facility]) [address] [place] [address] * (ABNORMAL) TSH3 Reflex to FT4 (11/09/2024 7:46 PM EDT) [facility] TSH 0.13(L) 0.34 - 5.60 mIU/L 11/09/2024 9:53 PM EDT [facility]) Blood Venous blood specimen / Unknown Venipuncture / Unknown 11/09/2024 7:46 PM EDT 11/09/2024 9:03 PM EDT RebeccaUrvew [facility] LAB BLOOD ORDERABLES Performing Organization Address City/[facility]/ZIP Co de Phone Number [facility]) [address] [place] [address] * (ABNORMAL) Venous blood gas with ionized calcium (11/09/2024 7:46 PM EDT) pH, Krystian 7.43(H) 7.31 - 7.41 11/09/2024 8:17 PM EDT [facility] RESPIRATORY THERAPY pCO2, Krystian 44 40 - 50 mmHg 11/09/2024 8:17 PM EDT [facility] RESPIRATORY THERAPY pO2, Krystian 45 35 - 45 mmHg 11/09/2024 8:17 PM EDT [facility] RESPIRATORY THERAPY HCO3, Venous 29.2 mmol/L 11/09/2024 8:17 PM EDT [facility] RESPIRATORY THERAPY Calcium, Ion 1.24 1.15 - 1.33 mmol/L 11/09/2024 8:17 PM EDT [facility] RESPIRATORY THERAPY O2 Sat, Krystian 75.0 65.0 - 75.0 % 11/09/2024 8:17 PM EDT [facility] RESPIRATORY THERAPY Base Excess, Krystian 4.2 mmol/L 11/09/2024 8:17 PM EDT [facility] RESPIRATORY THERAPY Blood Venous blood specimen / Unknown Venipuncture / Unknown 11/09/2024 7:46 PM EDT 11/09/2024 8:[address] [facility] LAB BLOOD ORDERABLES [facility] RESPIRATORY THERAPY [address] [place] [address], * Anti C3 JUAN MANUEL (11/09/2024 7:46 PM EDT) Anti C3 JUAN MANUEL NEG 11/09/2024 11:50 PM EDT [facility] B[facility]OD [facility]ANK Blood Venous blood specimen / Unknown Venipuncture / Unknown 11/09/2024 7:46 PM EDT 11/09/2024 9:[address] [facility] LAB BLOOD BANK TEST ORDERABLES [facility] BLOOD [facility] * Anti IgG JUAN MANUEL (11/09/2024 7:46 PM EDT) Pathologist [facility] Anti IgG JUAN MANUEL NEG 11/09/2024 10:36 PM EDT [facility] B[facility]OD [facility] Blood Venous blood specimen / Unknown Venipuncture / Unknown 11/09/2024 7:46 PM EDT 11/09/2024 9:[address] [facility] LAB BLOOD BANK TEST ORDERABLES Performing Organization Address City/[facility]/ZIP Co de Phone Number [facility] B[facility]OD [facility] * Antibody identification (11/09/2024 7:46 PM EDT) Pathologist [facility] Antibody ID E 11/09/2024 11:27 PM EDT [facility] Blood Venous blood specimen / Unknown Venipuncture / Unknown 11/09/2024 7:46 PM EDT 11/09/2024 9:[address] [facility] LAB BLOOD BANK TEST ORDERABLES Performing Organization Address City/[facility] Co de Phone Number [facility] B[facility]OD [facility] * (ABNORMAL) Vitamin D 25 hydroxy (11/09/2024 7:46 PM EDT) Pathologist [facility] Vit D, 25-Hydroxy 10.2(L) 30.0 - 80.0 ng/mL 11/09/2024 9:54 PM EDT [facility] ([facility]) Comment:>80.0 Toxicity possi ble Blood Venous blood specimen / Unknown Venipuncture / Unknown 11/09/2024 7:46 PM EDT 11/09/2024 9:[address] [facility] LAB BLOOD ORDERABLES Performing Organization Address City/[facility]/ZIP Co de Phone Number [facility] ([facility]) [address] [place] [address] * (ABNORMAL) Protime-INR (11/09/2024 7:46 PM EDT) Pathologist [facility] Protime 15.1(H) 12.3 - 14.8 Seconds 11/09/2024 9:23 PM EDT [facility] [place]) INR 1.20(H) 0.90 - 1.10 11/09/2024 9:23 PM EDT [facility] ([place]) Comment: [facility] RECOMMENDED INR FOR WARFARIN THERAPY CONDITION INR [...] EDT 11/09/2024 9:01 PM EDT Rebecca Lang [facility] LAB BLOOD ORDERABLES [facility] [place]) [address] [place] [phone] * Type and screen (11/09/2024 7:46 PM EDT) ABO Grouping O 11/09/2024 10:22 PM EDT [facility] Rh Type POS 11/09/2024 10:22 PM EDT [facility] Ab Scrn POS 11/09/2024 10:22 PM EDT [facility] Blood Venous blood specimen / Unknown Venipuncture / Unknown 11/09/2024 7:46 PM EDT 11/09/2024 9:01 PM EDT [facility] TEST ORDERABLES [facility] B[facility]OD [facility] * T4, free (11/09/2024 7:46 PM EDT) Pathologist [facility] Free T4 1.41 0.71 - 1.85 ng/dL 11/09/2024 11:25 PM EDT [facility] ([facility]) Blood Venous blood specimen / Unknown Venipuncture / Unknown 11/09/2024 7:46 PM EDT 11/09/2024 9:03 PM EDT [facility]asrini [facility] LAB BLOOD ORDERABLES Performing Organization Address City/[facility]/ZIP Co de Phone Number [facility] ([facility]) [address] [place] [address] * Phosphorus (11/09/2024 7:46 PM EDT) [facility] Phosphorus 2.9 2.5 - 5.0 mg/dL 11/09/2024 9:28 PM EDT [facility] ([facility]) Blood Venous blood specimen / Unknown Venipuncture / Unknown 11/09/2024 7:46 PM EDT 11/09/2024 9:03 PM EDT [facility]asrini [facility] LAB BLOOD ORDERABLES Performing Organization Address City/[facility]/ZIP Co de Phone Number [facility] ([facility]) [address] [place] [address] * (ABNORMAL) Vitamin B12 (11/09/2024 7:46 PM EDT) Pathologist [facility] Vitamin B-12 1,113(H) 180 - 914 pg/mL 11/09/2024 9:56 PM EDT [facility] ([facility]) Comment: REFERENCE RANGES: 180-914 pg/mL Normal 145-179 pg/mL Indeterminate <145 pg/mL Deficient Blood Venous blood specimen / Unknown Venipuncture / Unknown 11/09/2024 7:46 PM EDT 11/09/2024 9:03 PM EDT Rebecca Lang [facility] LAB BLOOD ORDERABLES [facility] ([facility]) [address] [facility] [place], [place] [id number] * (ABNORMAL) CK total and CKMB (11/09/2024 7:46 PM EDT) Total CK 43.0 30.0 - 223.0 U/L 11/09/2024 9:39 PM EDT [facility] ([facility]) CK-MB Index 3.0(H) 0.0 - 1.9 11/09/2024 9:39 PM EDT [facility] ([facility]) CK-MB 1.3 0.0 - 5.0 ng/mL 11/09/2024 9:39 PM EDT [facility] ([facility]) Blood Venous blood specimen / Unknown Venipuncture / Unknown 11/09/2024 7:46 PM EDT 11/09/2024 9:03 PM EDT Rebecca Lang [facility] LAB BLOOD ORDERABLES Performing Organization Address City/[facility]/ZIP Co de Phone Number [facility] ([facility]) [address], [place] [phone] * Ammonia (11/09/2024 7:46 PM EDT) Ammonia 31 18 - 72 umol/L 11/09/2024 8:53 PM EDT [facility] ([facility]) Blood Venous blood specimen / Unknown Venipuncture / Unknown 11/09/2024 7:46 PM EDT 11/09/2024 8:05 PM EDT Rebecca Lang [facility] LAB BLOOD ORDERABLES [facility] ([facility]) [address], [place] [phone] from Last 3 Months Advance Directives * Full Code (Latest Code Status on File) Date Activated Date Inactivated Comments 11/09/2024 8:51 PM 11/14/2024 5:06 PM Care Teams Filter Tank Operator Relationship Specialty Start Date End Date Henrik Downing MD [address] [facility] [place] [address] PCP - General Family Medicine 11/10/24
[2024-11-17 08:02] LABS: Hematocrit 33.3 % (36.0-48.0); Hemoglobin 10.3 g/dL (12.0-16.0); Mean Corpuscular HGB Conc 30.9 g/dL (29.9-35.2); Mean Corpuscular Hemoglobin 32.7 pg (26.7-34.0); Mean Corpuscular Volume 105.7 fL (81.0-99.0); Mean Platelet Volume 9.7 fL (9.5-13.5); Platelet Count 375 10^3/uL (150-450); Red Blood Count 3.15 10^6/uL (4.20-5.40); Red Cell Distribution Width 19.1 % (11.0-15.0); White Blood Count 6.1 10^3/uL (4.0-11.0)
[2024-11-17 08:32] LABS: Anion Gap 13.1; BUN Creatinine Ratio 18.4; Calcium 8.7 mg/dL (8.5-10.1); Carbon Dioxide 29.5 mmol/L (21.0-32.0); Chloride 109 mmol/L (98-107); Estimated GFR (African America >60 (>=60 mL/min/1.73m^2); Estimated GFR (Non-African Ame >60 (>=60 mL/min/1.73m^2); Glucose 104 mg/dL (74-106); Potassium 3.6 mmol/L (3.5-5.1); Sodium 148 mmol/L (136-145)
[2024-11-17 08:44] LABS: Anisocytosis 2+; Band Neutrophils Absolute 0.1 10^3/uL (0.0-0.3); Eosinophils Absolute Manual 0.18 10^3/uL (0.00-0.70); Lymphocytes Absolute Manual 1.15 10^3/uL (1.20-3.80); Macrocytosis 2+; Ovalocytes 1+; Polychromasia 1+; Segmented Neut Absolute Manual 4.39 10^3/uL (1.4-6.5)
--- OUTSIDE RECORDS SUMMARY | 2024-11-17 10:00 | XMS_ITS ---
Author Organization The [facility] in [place] Address [address] [place] [address] Care Team Providers Care Boom Stick Worker Name Role Phone Salazar Downing Primary Care Provider REASON FOR VISIT [facility] / Encounters Encounter Location Date Provider Diagnosis [facility] [address] [place] [address] 11/17/2024 Salazar Downing Plan Of Treatment Next Appt Details Provider Name:Salazar Downing, 02:00:00 PM, [address] [place], [address], Progress Notes * Andreia THOMAS EDOB:[birth year] (59 yo F)Acc No.[id number]:11/17/2024 UNLOCKED PROGRESS NOTE Progress Note Patient: Britta OLIVIERnda Devora Provider: Miguel Angel Downing ([facility] Henrik :1965 A ge:59 Y S ex:Female Date:11/17/2024 [address] [phone] Subjective: * Chief Complaints: * 1 . [facility] /. * Medical History: Objective: * Vitals: Assessment: Plan: * Treatment: * * Electronic signature of Salazar Downing MD, [id number] on 11/17/2024 at 07:41 AM EDT Sign off status: Pending Visit Status: Duncan BORGES (Voice) * Provider: Miguel Angel Downing ([facility])MD Date: 11/17/2024 Generated for Konstantin choi/Jose D/Rufusitting on: 11/17/2024 07:41 AM EDT
== END 2024-11-17 07:39 | disposition home or self-care (01) ==
PROVIDERS: PCP Family Medicine; Visit Provider Student in an Organized Health Care Education/Training Program
DX: D61.818 Other pancytopenia (principal)
CPT/HCPCS: 36415; 80048; 85007; 85027

== ENCOUNTER 2025-02-28 09:52 | Outpatient (OUT) | payer OTHER, SELFPAY ==
--- OUTSIDE RECORDS SUMMARY | 2025-01-22 12:14 | XMS_ITS ---
Author Organization The [facility] in [place] Address [address] [place] [address] Care Team Providers Care Pattern Chain Maker Supervisor Name Role Phone Salazar Downing Primary Care Provider REASON FOR VISIT Refill Clonazepam Medications Medication SIG (Take, Route, Fr equency, Duration) Notes Start Date End Date Status clonazePAM 2 MG 2-3 Oral daily for 90 days 025 Active Encounters Encounter Location Date Provider Diagnosis [address] [address] 01/22/2025 Salazar Downing GERD (gastroesophage al reflux disease) K21.9 Assessments Encounter Date Diagnosis (ICD Code) Assessment Notes Treatment Notes Treatment Clinical Notes Section Notes 01/22/2025 GERD (gastroesophage al reflux disease) (ICD-10 - K21.9) Plan Of Treatment Medication Medication Name Sig Start Date Stop Date Notes clonazePAM 2 MG 2-3 Oral daily for 90 days 01/22/2025 Progress Notes * Andreia THOMAS EDOB:[birth year] (59 yo F)Acc No.[id number]:01/22/2025 Patient: Taylor JOSEPHINEIsabel Andreia Lozoya :1965 A ge:59 Y S ex:Female Address:[address] [place] [address], [phone] * Refills Refill clonazePAM Tablet, 2 MG, Oral, 270, 2-3, daily, 90 days, Refills=0 * true * Date: Generated for Konstantin choi/Jose D/Rufusitting on: 0 02/28/2025 09:55 AM EDT
--- OUTSIDE RECORDS SUMMARY | 2025-01-29 07:48 | XMS_ITS ---
Author Organization The [facility] in [place] Address [address] [place] [address] Care Team Providers Care Farm Implement Engine Mechanic Name Role Phone Salazar Downing Primary Care Provider REASON FOR VISIT Refill Clonazepam Medications Medication SIG (Take, Route, Fr equency, Duration) Notes Start Date End Date Status clonazePAM 2 MG 2-3 Oral daily for 90 days 025 Active Encounters Encounter Location Date Provider Diagnosis [address] [address] 01/29/2025 Salazar Downing GERD (gastroesophage al reflux [...] Andreia THOMAS EDOB:[birth year] (59 yo F)Acc No.[id number]:01/29/2025 Patient: Taylor JOSEPHINEIsabel Andreia Lozoya :1965 A ge:59 Y S ex:Female Address:[address] [place] [address], [address] * Refills Refill clonazePAM Tablet, 2 MG, Oral, 270, 2-3, daily, 90 days, Refills=0 * true * Date: Generated for Konstantin choi/Jose D/Rufusitting on: 0 02/28/2025 09:54 AM EDT
--- OUTSIDE RECORDS SUMMARY | 2025-02-05 12:00 | XMS_ITS ---
Author Organization The [facility] in [place] Address [address] [place] [address] Care Team Providers Care Research Professor Of Biostatistics Name Role Phone Salazar Downing Primary Care [...] PRN 04/04/2024 Active Vitamin D3 1.25 MG (17308 UT) 1 capsule Orally weekly for 90 days 02/05/2025 Active Levothyroxine Sodium 150 MCG 1 tablet Orally in the morning on an empty stomach for 90 days Active DULoxetine HCl 20 MG 1 capsule Orally On ce a day for 30 days 07/03/2024 Active Cholecalciferol 1.25 MG (23233 UT) 1 capsule Orally once weekly for [...] W/U Status Risk Notes Problem Fatty liver (K76.0) Active confirmed Problem Anxiety state (144811001) Acute anxiety (F41.9) Active confirmed Vital Signs Blood pressure systolic 138 mm Hg 02/06/20 25 Blood pressure diastolic 72 mm Hg 025 Height 62 in 02/05/2025 Weight 147.8 lbs 02/05/2025 BMI 27.03 kg/m2 02/05/2025 Procedures Procedure Date Ordered Date Performed Result Body Sit e Holter Monitor - 3 days up to 14 days 02/05/2025 N/A Encounters Encounter Location Date Provider Diagnosis [facility] [address] [place] [address] 02/05/2025 Salazar Hoy Fatty liver K76.0 ; Palpitation R00.2 and Acute anxiety F41.9 Assessments Encounter Date Diagnosis (ICD Code) Assessment Notes Treatment Notes Treatment Clinical Notes Section Notes 02/05/2025 Fatty liver (ICD-10 - K76.0) 02/05/2025 Palpitation (ICD-10 - R00.2) 02/05/2025 Acute anxiety (ICD-10 - F41.9) Plan Of Treatment Medication Medication Name Sig Start Date Stop Date Notes Vitamin D3 1.25 MG (09421 UT) 1 capsule Orally weekly for 90 [...] Andreia THOMAS EDOB:[birth year] (59 yo F)Acc No.[id number]:02/05/2025 Progress Note Patient: Andreia OLIVIER Provider: Miguel Angel Downing ([facility])MD :1965 A ge:59 Y S ex:Female Date:02/05/2025 Address:[address] , [facility], [id number] Check In:03:44 PM ESTCheck O ut:04:47 PM [...] On:12/04/2022 Status:confirmed K57.30 Diverticula of colon Modified On:12/04/2022 Status:confirmed N39.3 Stress incontinence Modified On:12/04/2022 Status:confirmed F40.00 Agoraphobia Modified On:12/04/2022 Status:confirmed E78.00 [...] anemia Modified On:11/09/2024 Status:confirmed D61.818 Pancytopenia Modified On:11/17/2024U Status:confirmed D68.9 Coagulopathy Modified On:11/23/2024 Status:confirmed K74.60 Cirrhosis Modified On:11/23/2024 Status:confirmed J96.11 Chronic respiratory failure with hypoxia Modified On:12/13/2024U Status:confirmed E53.8 Vitamin B12 deficien cy Modified On:01/26/2025U Status:confirmed K76.0 Fatty liver Modified On:02/05/2025W/U Status:confirmed F41.9 Acute anxiety Modified On:02/05/2025W/U Status:confirmed * Medical History: * Surgical History: [...] egative * Medications: T akingCholecalciferol 1.25 MG (27776 UT) Capsule 1 capsule Orally once weekly [...] Once a day Taking Cholecalciferol 1.25 MG (81531 UT) Capsule 1 capsule Orally once weekly [...] Procedure Codes: * Preventive Medicine: Screenings/Counseling: B IN ACTION PLAN Above Normal BMI Follow-up D ietary management education, guidance, and counseling * * Sign off status: Completed Visit Status: C HK (Check Out) true * Provider: Miguel Angel Downing ([facility])MD Date: 0 02/05/2025 Generated for Printi ng/Faxing/eTransmitting on: 0 02/28/2025 09:55 AM EDT History and Physical Notes * HPI [...]
--- OUTSIDE RECORDS SUMMARY | 2025-02-05 12:33 | XMS_ITS ---
Author Organization The [facility] in [place] Address [address] [place] [address] Care Team Providers Care Diorama Model Maker Name Role Phone Salazar Downing Primary Care Provider REASON FOR VISIT looking for [facility] records Encounters Encounter Location Date Provider Diagnosis [address] [address] 02/05/2025 Salazar Downing Plan Of Treatment No Information Progress Notes * Andreia CID EDOB:[birth year] (59 yo F)Acc No.[id number]:02/05/2025 Patient: Taylor JOSEPHINEIsabel Andreia Lozoya :1965 A ge:59 Y S ex:Female Address:[address] [place], [address] * true * Date: Generated for Shashii steph/Fadomingog/eTransmitting on: 0 02/28/2025 09:54 AM EDT
--- OUTSIDE RECORDS SUMMARY | 2025-02-27 10:54 | XMS_ITS ---
Author Organization The [facility] in [place] Address [address] [place] [address] Care Team Providers Care Athletics Director Name Role Phone Salazar Downing Primary Care Provider [phone] REASON FOR VISIT Crestor refill Medications Medication SIG (Take, Route, Frequency, Duration) Notes Start Date End Date Status Rosuvastatin Calcium 5 mg TAKE 1 TABLET DAILY Active Encounters Encounter Location Date Provider Diagnosis [facility] [address] [place] [address] 02/27/2025 Salazar Downing Plan Of Treatment Medication Medication Name Sig Start Date Stop Date Notes Rosuvastatin Calcium 5 mg TAKE 1 TABLET DAILY Progress Notes * Andreia THOMAS EDOB:[birth year] (59 yo F)Acc No.[id number]:02/27/2025 Patient: Taylor Andreia GONZALEZ :1965 A ge:59 Y S ex:Female Address:[address] [facility] [place], [address] * Refills Refill Rosuvastatin Calcium Tablet, 5 mg, 90 Tablet, TAKE 1 TABLET DAILY, Refills=3 * true * Date: Generated for Konstantin choi/Jose D/eTransmitting on: 0 02/28/2025 09:55 AM EDT
--- OUTSIDE RECORDS SUMMARY | 2025-02-28 09:55 | XMS_ITS | Encounter Summary ---
Author Organization [facility] Address [address] [place] [address] Care Team Providers Care Money Room Supervisor Name Role Phone Henrik Downing MD Primary Care Provider [phone] Юлия Guerra MD Unavailable [phone] Encounter Details Date Type Department Care Team (Late st Contact Info) Description 02/23/2025 Results Follow-Up [facility] [address] [place] [address] Юлия Guerra MD [address] [place] [address] Comprehensive metabolic panel, Vitamin B12, CBC auto differential Social History Tobacco Use Types Packs/Day Years Used Date Smoking Tobacco: Former Cigarettes 1 48.3 S tarted: 06/28/1976 Smokeless Tobacco: Never Alcohol Use Standard Drinks/Week Comments Never 0 (1 standard drink = 0.6 oz pur e alcohol) [facility] Utilities Answer Date Recorded In the past 12 months has [employer], gas, oil, or water Lightera threatened to shut off services in your home? No 11/09/2024 Humiliation, Afraid, Rape, and Kick questionnair e Answer Date Recorded Within the last year, have y ou been afraid of your partner or ex-partner? No 01/23/2025 Emotionally Abused Not on file 01/23/2025 Physically Abused Not on file 01/23/2025 Sexually Abused Not on file 01/23/2025 Overall Financial Resource Strain (CARDIA) Answe r Date Recorded How hard is it for you to pa y for the very basics like food, housing, medical care, and heating? Not hard at all 11/09/2024 PHQ-2 Answer Date Recorded Patient Health Questionnaire-2 Score 0 01/23/2025 Transportation Answer Date Recorded In the past [...] any time in the past 12 [facility], were you homeless or living in a jail (including now)? No 11/09/2024 Hunger Vital Sign Answer Date Recorded Within the past 12 months, y ou worried that your food would run out before you got the money to buy more. Never true 11/10/19 25 Ran Out of Food in the Last Year Not on file 11/09/2024 Comments Unknown Sex and Gender Information Value Date Recorded Sex Assigned at Female 11/10/2024 8:57 AM EDT Legal Sex Female 10:47 PM EDT Gender Identity Female 11/10/2024 8:57 AM EDT Sexual Orientation Heterosexual or Straight 10/26 8:57 AM EDT documented as of this encounter Miscellaneous Notes * Result Encounter Note - Claudia Merrill RN - 02/27/2025 11:20 AM EDT Please send these results to patient's PCP * Result Encounter Note - Юлия Guerra MD - 02/23/2025 7:16 PM EDT Patient to follow up with pcp on elevated Ast and alphos . Ally, please give her a call on the same and ensure these results are sent to pcp . She may also follow up with me but pcp closer to home Юлия Guerra MD documented in this encounter Plan of Treatment Upcoming Encounters Date Type Department Care Team (Late st Contact Info) Description 07/24/2025 11:00 AM EST [facility] [address] [place] [address] Юлия Guerra MD [address] [place] [address] documented as of this encounter Visit Diagnoses Not on filedocumented in this encounter Care Teams Money Room Supervisor Relationship Specialty Start Date End Date Henrik Downing MD [address] [facility] [address] [address] PCP - General Family Medicine 11/10/24 Юлия Guerra MD [address] [place] [address] Consulting Physician Hematology and Oncology 11/23/24 documented as of this encounter
--- OUTSIDE RECORDS SUMMARY | 2025-02-28 09:55 | XMS_ITS | Clinical Summary ---
Author Organization [facility] Address [address] [place] [address] Care Team Providers Care Conference Center Manager Name Role Phone Henrik Downing MD Primary Care Provider [phone] Allergies Active Allergy Reactions Criticality Noted Date [...] of oral mucosa and tongue 04/29/2023 04/29/2023 Encounters Date Type Department Care Team Description 01/11/2025 2:45 PM EDT Office Visit [facility] [address] [place] [address] Misty Peng MD Seborrheic keratosis (Primary Dx); Lentigines; Epidermal inclusion cyst; Capillary angioma 01/11/2025 Bamboo flowsheet [facility] [address] [place] [address] Misty Peng MD 01/11/2025 Travel from Last 3 Months Immunizations Immunization Administration Dates Next Due Tdap [...] Care Team (Late st Contact Info) Description 01/10/2026 10:20 AM EDT Office Visit [facility] [address] [place] [address] Misty Peng MD [address] [place] [address] Health Maintenance Due Date Last Done Comments CT Colonography 1963 Colonoscopy 1963 Colorectal Cancer Screening 1963 FIT-DNA 1963 FIT 1963 FOBT 1963 Sigmoidoscopy 1963 Pap Smear 1984 Cervical Cancer Screening 1993 HPV/Cotest 1993 Mammogram 2003 Influenza Vaccine (#1) 2025 , 05/16/2018, 05/04/2018, Additional history exists Insurance [employer] Care Teams Conference Center Manager Relationship Specialty Start Date End Date Henrik Downing MD [address] [place] [address] PCP - General Family Medicine 05/03/23
--- OUTSIDE RECORDS SUMMARY | 2025-02-28 09:55 | XMS_ITS | Patient Health Record ---
Author Organization [facility] in [place] Address [address] [place] [address] Care Team Providers Care Window Caser Name Role Phone Salazar Downing Primary Care [...] Active Results Component Value Reference Range Notes PROF CHEM 8 (BAS METB) Reviewed date:11/07/2024 03:13:58 PM Interpretation: Performing Lab: Notes/Report: [facility] , Sodium 144 136-145 mmol/L Potassium 2.7 [...] Performing Lab: see note ML - [facility] LB UA RANDOM W or MICROSCOPIC Reviewed date:11/07/2024 03:13:58 PM Interpretation: Performing Lab: Notes/Report: [facility] , Color Urine YELLOW YELLOW Clarity Urine CLOUDY CLEAR Specific [place] Urine 1.025 1.005-1.025 pH Urine 6.0 5.0-9.0 [...] SEEN NONE SEEN #/LPF Urine Culture Indicated [facility] [place] Performing Lab: see note ML - [facility] LB Prothrombin Time INR Reviewed date:11/07/2024 03:13:58 PM Interpretation: Performing Lab: Notes/Report: [facility] , Prothrombin Time 13.7 9.0-11.6 sec INR 1.33 DESIRED INR: 2.0-3.0 CONDITIONS NOT LISTED BELOW 2.5-3.5 FOR PROSTHETIC HEART VALVE REPLACEMENT 2.5-3.5 RECURRENT THROMBOSIS Performing Lab: see note ML - [facility] LB Second ABO/RH Type Reviewed date:11/07/2024 03:13:58 PM Interpretation: Performing Lab: Notes/Report: [facility] , Blood Type #2 O Positive Packed Red Blood Cells Reviewed date:11/08/2024 07:38:21 PM Interpretation: Performing Lab: Notes/Report: Packed Red Blood Cells [id number] OP RC TRANSFUSED 11/08/24 0241 [id number] OP RC TRANSFUSED 11/08/24 0617 Type and Screen Reviewed date:11/08/2024 07:38:21 PM Interpretation: Performing Lab: Notes/Report: [facility] , Blood Type O Positive Antibody Screen POSITIVE Troponin I High Sensitivity Reviewed date:11/07/2024 03:13:58 PM Interpretation: Performing Lab: Notes/Report: [facility] , Troponin I High Sensitivity 4.2 4.0-51.3 pg/mL CUT-OFF POINTS HAVE BEEN ESTABLISHED BASED ON THE FOURTH UNIVERSAL DEFINITION OF MYOCARDIAL INFARCTION. THE UPPER REFERENCE LIMIT (URL) OF TROPONIN, DEFINED THE 99TH PERCENTILE OF cTnI DISTRIBUTION IN A REFERENCE POPULATION, HAS BEEN CONFIRMED THE DECISION THRESHOLD FOR IA DIAGNOSIS. 99TH PERCENTILE = 51.4 PG/ML NOTE: HIGH-SENSITIVITY TROPONIN ASSAY IS NOT INTENDED TO BE USED IN ISOLATION BUT SHOULD BE INTERPRETED IN CONJUNCTION WITH OTHER DIAGNOSTIC AND CLINICAL INFORMATION. Performing Lab: see note ML - [facility] LB Venous Blood Gas Reviewed date:11/07/2024 03:13:58 PM Interpretation: Performing Lab: Notes/Report: [facility] , pH VBG 7.400 7.330-7.430 PCO2 VBG 41.9 40.0-52.0 mmHg Performing Lab: see note ML - [facility] LB Occult Blood* Reviewed date:11/07/2024 03:13:58 PM Interpretation: Performing Lab: Notes/Report: [facility] , Occult Blood Negative Performing Lab: see note - [facility] LB Urine Culture - [facility] Reviewed date:11/09/2024 09:02:01 PM Interpretation: Performing Lab: Notes/Report: [facility] , Urine Culture - [facility] See Below For Report Urine Culture - [facility] Testing performed at [facility] O:ESCCOL Isolated Urine Culture - [facility] [place] Count Organism: 1.1 Antibiotic Interpretation ILIA Status Urine Culture - [facility] [address] [place] [address] Urine Culture - [facility] Testing performed at [facility] O:ESCCOL Isolated Urine Culture - [facility] [place] Count Organism: 1.1 Antibiotic Interpretation ILIA Status Urine Culture - [facility] See Below For Report Urine Culture - [facility] Testing performed at [facility] O:ESCCOL Isolated Urine Culture - [facility] [place] Count Organism: 1.1 Antibiotic Interpretation ILIA Status Urine Culture - [facility] See Below For Report Urine Culture - [facility] Testing performed at [facility] O:ESCCOL Isolated Urine Culture - [facility] [place] Count Organism: 1.1 Antibiotic Interpretation ILIA Status Urine Culture - [facility] >100,000 Urine Culture - [facility] Testing performed at [facility] O:ESCCOL Isolated Urine Culture - [facility] [place] Count Organism: 1.1 Antibiotic Interpretation ILIA Status Urine Culture - [facility] See Below For Report Urine Culture - [facility] Testing performed at [facility] O:ESCCOL Isolated Urine Culture - [facility] [place] Count Organism: 1.1 Antibiotic Interpretation ILIA Status Urine Culture - [facility] Amikacin S F Urine Culture - [facility] Testing performed at [facility] O:ESCCOL Isolated Urine Culture - [facility] [place] Count Organism: 1.1 Antibiotic Interpretation ILIA Status Urine Culture - [facility] Amoxicillin/Clavula gonsalo S F Urine Culture - [facility] Testing performed at [facility] O:ESCCOL Isolated Urine Culture - [facility] [place] Count Organism: 1.1 Antibiotic Interpretation ILIA Status Urine Culture - [facility] Ampicillin S F Urine Culture - [facility] Testing performed at [facility] O:ESCCOL Isolated Urine Culture - [facility] [place] Count Organism: 1.1 Antibiotic Interpretation ILIA Status Urine Culture - [facility] Aztreonam S F Urine Culture - [facility] Testing performed at [facility] O:ESCCOL Isolated Urine Culture - [facility] [place] Count Organism: 1.1 Antibiotic Interpretation ILIA Status Urine Culture - [facility] Ceftazidime S F Urine Culture - [facility] Testing performed at [facility] O:ESCCOL Isolated Urine Culture - [facility] [place] Count Organism: 1.1 Antibiotic Interpretation ILIA Status Urine Culture - [facility] Ceftazidime/Avibact am S F Urine Culture - [facility] Testing performed at [facility] O:ESCCOL Isolated Urine Culture - [facility] [place] Count Organism: 1.1 Antibiotic Interpretation ILIA Status Urine Culture - [facility] Ceftolozane/Tazobac cohn S F Urine Culture - [facility] Testing performed at [facility] O:ESCCOL Isolated Urine Culture - [facility] [place] Count Organism: 1.1 Antibiotic Interpretation ILIA Status Urine Culture - [facility] Ciprofloxacin S F Urine Culture - [facility] Testing performed at [facility] O:ESCCOL Isolated Urine Culture - [facility] [place] Count Organism: 1.1 Antibiotic Interpretation ILIA Status Urine Culture - [facility] Ertapenem S F Urine Culture - [facility] Testing performed at [facility] O:ESCCOL Isolated Urine Culture - [facility] [place] Count Organism: 1.1 Antibiotic Interpretation ILIA Status Urine Culture - [facility] Gentamicin S F Urine Culture - [facility] Testing performed at [facility] O:ESCCOL Isolated Urine Culture - [facility] [place] Count Organism: 1.1 Antibiotic Interpretation ILIA Status Urine Culture - [facility] Levofloxacin S F Urine Culture - [facility] Testing performed at [facility] O:ESCCOL Isolated Urine Culture - [facility] [place] Count Organism: 1.1 Antibiotic Interpretation ILIA Status Urine Culture - [facility] Meropenem S F Urine Culture - [facility] Testing performed at [facility] O:ESCCOL Isolated Urine Culture - [facility] [place] Count Organism: 1.1 Antibiotic Interpretation ILIA Status Urine Culture - [facility] Meropenem/Vaborbact am S F Urine Culture - [facility] Testing performed at [facility] O:ESCCOL Isolated Urine Culture - [facility] [place] Count Organism: 1.1 Antibiotic Interpretation ILIA Status Urine Culture - [facility] Nitrofurantoin S F Urine Culture - [facility] Testing performed at [facility] O:ESCCOL Isolated Urine Culture - [facility] [place] Count Organism: 1.1 Antibiotic Interpretation ILIA Status Urine Culture - [facility] Tetracycline S F Urine Culture - [facility] Testing performed at [facility] O:ESCCOL Isolated Urine Culture - [facility] [place] Count Organism: 1.1 Antibiotic Interpretation ILIA Status Urine Culture - [facility] Tigecycline S F Urine Culture - [facility] Testing performed at [facility] O:ESCCOL Isolated Urine Culture - [facility] [place] Count Organism: 1.1 Antibiotic Interpretation ILIA Status Urine Culture - [facility] Tobramycin S F Urine Culture - [facility] Testing performed at [facility] O:ESCCOL Isolated Urine Culture - [facility] [place] Count Organism: 1.1 Antibiotic Interpretation ILIA Status Urine Culture - [facility] Ampicillin/Sulbactam S F Urine Culture - [facility] Testing performed at [facility] O:ESCCOL Isolated Urine Culture - [facility] [place] Count Organism: 1.1 Antibiotic Interpretation ILIA Status Urine Culture - [facility] Cefazolin S F Urine Culture - [facility] Testing performed at [facility] O:ESCCOL Isolated Urine Culture - [facility] [place] Count Organism: 1.1 Antibiotic Interpretation ILIA Status Urine Culture - [facility] Cefepime S F Urine Culture - [facility] Testing performed at [facility] O:ESCCOL Isolated Urine Culture - [facility] [place] Count Organism: 1.1 Antibiotic Interpretation ILIA Status Urine Culture - [facility] Ceftriaxone S F Urine Culture - [facility] Testing performed at [facility] O:ESCCOL Isolated Urine Culture - [facility] [place] Count Organism: 1.1 Antibiotic Interpretation ILIA Status Urine Culture - [facility] Cefuroxime S F Urine Culture - [facility] Testing performed at [facility] O:ESCCOL Isolated Urine Culture - [facility] [place] Count Organism: 1.1 Antibiotic Interpretation ILIA Status Urine Culture - [facility] Piperacillin/Tazoba ctam S F Urine Culture - [facility] Testing performed at [facility] O:ESCCOL Isolated Urine Culture - [facility] [place] Count Organism: 1.1 Antibiotic Interpretation ILIA Status Urine Culture - [facility] Trimethoprim/Sulfa S F Urine Culture - [facility] Testing performed at [facility] O:ESCCOL Isolated Urine Culture - [facility] [place] Count Organism: 1.1 Antibiotic Interpretation ILIA Status Performing Lab: see note ML - [facility] LB SEE REPORT - Engineering Drawings Checker Id information not found for OBX-specific palliative care coordinator legend AMYLASE Reviewed date:11/08/2024 05:26:51 PM Interpretation: Performing Lab: Notes/Report: [facility] , Amylase 37 25-115 U/L Performing Lab: see note ML - [facility] LB LIPASE Reviewed date:11/08/2024 05:26:51 PM Interpretation: Performing Lab: Notes/Report: [facility] , Lipase 55.0 16.0-77.0 U/L Performing Lab: see note ML - [facility] LB PROF 14(COMP METB) Reviewed date:11/08/2024 05:26:51 PM Interpretation: Performing Lab: Notes/Report: [facility] , Sodium 141 136-145 mmol/L Potassium 4.1 [...] 1.4 Performing Lab: see note ML - [facility] LB PROF CHEM 8 (BAS METB) Reviewed date:11/18/2024 12:00:18 PM Interpretation: Performing Lab: Notes/Report: [facility] , Sodium 148 136-145 mmol/L Potassium 3.6 3.5-5.1 mmol/L Chloride 109 98-107 mmol/L Carbon Dioxide 29.5 21.0-32.0 mmol/L Anion Gap 13.1 Glucose 104 74-106 mg/dL Blood Urea Nitrogen 9.0 7.0-18.0 mg/dL Creatinine 0.49 0.55-1.02 mg/dL Estimated GFR ( Mendy >60 >=60 mL/min/1.73m 2 Estimated GFR (Non- Radha >60 >=60 mL/min/1.73m 2 BUN Creatinine Ratio 18.4 Calcium 8.7 8.5-10.1 mg/dL Performing Lab: see note ML - [facility] LB Manual Differential Reviewed date:11/18/2024 12:00:18 PM Interpretation: Performing Lab: Notes/Report: [facility] , Segmented Neutrophils % Manual 72.0 43.0-75.0 Band Neutrophils % 1.0 0-5 % Lymphocytes Percent Manual 19.0 20.5-60.0 % Monocytes Percent Manual 5.0 1.7-12.0 % Eosinophils Percent Manual 3.0 0.9-7.0 % Basophils Percent Manual 0.0 0.2-2.0 % Segmented Neut Absolute Manual 4.39 1.4-6.5 10 3/uL Band Neutrophils Absolute 0.1 0.0-0.3 10 3/uL Lymphocytes Absolute Manual 1.15 1.20-3.80 10 3/uL Monocytes Absolute Manual 0.30 0.30-0.80 10 3/uL Eosinophils Absolute Manual 0.18 0.00-0.70 10 3/uL Basophils Abs Manual 0.00 0.00-0.10 1 0 3/uL Polychromasia 1+ Anisocytosis 2+ Macrocytosis 2+ Ovalocytes 1+ Performing Lab: see note ML - [facility] LB CBC AUTO DIFF Reviewed date:11/18/2024 12:00:18 PM Interpretation: Performing Lab: Notes/Report: [facility] , White Blood Count 6.1 4.0-11.0 10 3/uL Red Blood Count 3.15 4.20-5.40 10 6/uL Hemoglobin 10.3 12.0-16.0 g/dL Hematocrit 33.3 36.0-48.0 % Mean Corpuscular Volume 105.7 81.0-99.0 fL Mean Corpuscular Hemoglobin 32.7 26.7-34.0 pg Mean Corpuscular HGB Conc 30.9 29.9-35.2 g/dL Red Cell Distribution Width 19.1 11.0-15.0 % Platelet Count 375 150-450 10 3/uL Mean Platelet Volume 9.7 9.5-13.5 fL Performing Lab: see note - [facility] LB Prothrombin Time INR Reviewed date:11/09/2024 09:02:01 PM Interpretation: Performing Lab: Notes/Report: [facility] , Prothrombin Time 11.9 9.0-11.6 sec INR 1.14 DESIRED INR: 2.0-3.0 CONDITIONS NOT LISTED BELOW 2.5-3.5 FOR PROSTHETIC HEART VALVE REPLACEMENT 2.5-3.5 RECURRENT THROMBOSIS Performing Lab: see note - [facility] LB PROF 14(COMP METB) Reviewed date:11/09/2024 09:02:01 PM Interpretation: Performing Lab: Notes/Report: [facility] , Sodium 147 136-145 mmol/L Potassium 3.2 [...] 1.5 Performing Lab: see note ML - [facility] LB AMMONIA Reviewed date:11/09/2024 09:02:01 PM Interpretation: Performing Lab: Notes/Report: [facility] , Ammonia 15 11-32 umol/L Performing Lab: see note ML - [facility] LB Comp panel: Leukemia/Lymphom a Reviewed date:11/12/2024 10:59:29 [...] blo od Assessment of Leukocytes Comment . Wilmore and lambda staining cannot be interpreted due [...] analysis with CD45/SSC gating Technical-Analysis performed at [place] [address], [employer] [facility], [address], [facility] [address], Director: Alon Altman, [facility], Phenotype Chart Comment . CD2 Normal CD3 [...] Performed at: -Y - [facility] [address] [facility] [place], [place] [id number] Liquor Merchant: Alon Altman [facility], Phone: [phone] Performed at: TG - [facility] [address] [facility] [place] [id number] Liquor Merchant: Alon Altman [facility], Phone: [phone] Performing Lab: see note - [facility] LB LAB TESTING Reviewed date:11/12/2024 10:59:29 PM Interpretation: Performing Lab: Notes/Report: [id number] ACTIVITY [facility] , Miscellaneous Test COMMENT . Test Ordered: [id number] Activity XVRJCC65 Activity 92.0 % Reference Range: >66.8 This test was developed and its performance characteristics determined by [facility]. It has not been cleared or approved by the Food and Drug Administration. Comment Comment BN Reference Range: . Severe deficiency of DIVAGO53 (less than 10% activity) is a relatively specific finding in patients with a clinical diagnosis of either hereditary or acquired thrombotic thrombocytopenic purpura (TTP). Normal to moderately reduced GBNJDU92 activity results do not exclude a diagnosis of TTP. Conditions that could have BVOUZM07 activity greater than 10% include hemolytic uremic syndrome (HUS), atypical hemolytic uremic syndrome (aHUS), and other thrombotic microangiopathies associated with hematopoietic stem cell and solid organ transplantation, liver disease, DIC, sepsis, , or effects of certain medications (eg, clopidogrel, cyclosporine, mitomycin C, quinine). Performed at: BN - [facility] [id number] Liquor Merchant: Ana Cristina Torres MD, Phone: [phone] Performed at: - [facility] [id number] Liquor Merchant: Brayan Pena PhD, Phone: [phone] Performing Lab: see note - [facility] LB CBC AUTO DIFF Reviewed date:11/08/2024 05:26:51 PM Interpretation: Performing Lab: Notes/Report: [facility] , White Blood Count 2.0 4.0-11.0 10 [...] Performing Lab: see note ML - [facility] CA echo doppler complete Reviewed date:11/08/2024 05:26:51 PM Interpretation: Performing Lab: Notes/Report: Source Facility: [facility] [place] [address] [place] [address] Cardiology Report Signed Patient: ANDREIA THOMAS MR#: [id number] : 1965 Acct:[id number] Age/Sex: 59 / F ADM Date: 11/07/24 Loc: [place] 218-[address]: Kaitlyn Downing M.D. Ordering Physician: Kaitlyn Downing M.D. Date of Service: 11/07/24 Procedure(s): CA echo doppler complete Accession Number(s): [id number] cc: Kaitlyn Downing M.D. Patient Name: ANDREIA THOMAS MR#: [id number] : 1965 Exam Date: 11/07/2024 Ordering Doctor: [...] Signed By: 11/08/24 1149 DD/ 1148 TD/TT: Muffle Worker: [place] [address] Cardiology Report Signed Patient: TY THOMAS MR#: [id number] : 1965 Acct:[id number] Age/Sex: 59 / F ADM Date: 11/07/24 Loc: [place] 218-[address]: Monica Downing M.D. Ordering Physician: Kaitlyn Downing M.D. Date of Service: 11/07/24 Procedure(s): CA ech o doppler complete Accession Number(s): [id number] cc: Kaitlyn Downing M.D. Patient Name: ANDREIA THOMAS MR#: [id number] : 1965 Exam Date: 11/07/2024 Ordering Doctor: [...] Signed By: 11/08/24 1149 DD/ 1148 TD/TT: Muffle Worker: Manual Differential Reviewed date:11/08/2024 05:26:51 PM Interpretation: Performing Lab: Notes/Report: [facility] , Segmented Neutrophils % Manual 64.0 43.0-75.0 [...] 1+ Macrocytosis 1+ Performing Lab: see note ML - [facility] LB Prothrombin Time INR Reviewed date:11/08/2024 05:26:51 PM Interpretation: Performing Lab: Notes/Report: [facility] , Prothrombin Time 12.4 9.0-11.6 sec INR 1.19 DESIRED INR: 2.0-3.0 CONDITIONS NOT LISTED BELOW 2.5-3.5 FOR PROSTHETIC HEART VALVE REPLACEMENT 2.5-3.5 RECURRENT THROMBOSIS Performing Lab: see note ML - [facility] LB PROF 14(COMP METB) Reviewed date:11/08/2024 05:26:51 PM Interpretation: Performing Lab: Notes/Report: [facility] , Sodium 143 136-145 mmol/L Potassium 3.8 [...] Globulin Ratio 1.4 Performing Lab: see note - [facility] LB LACTATE or LACTIC ACID Reviewed date:11/08/2024 05:26:51 PM Interpretation: Performing Lab: Notes/Report: [facility] , Lactate/Lactic Acid 0.8 0.4-2.0 mmol/L Performing Lab: see note - [facility] CBC AUTO DIFF Reviewed date:11/08/2024 05:26:51 PM Interpretation: Performing Lab: Notes/Report: [facility] , White Blood Count 2.0 4.0-11.0 10 3/uL Red Blood Count 2.35 4.20-5.40 10 6/uL Hemoglobin 8.5 12.0-16.0 g/dL Hematocrit 24.4 36.0-48.0 % Mean Corpuscular Volume 103.8 81.0-99.0 fL Mean Corpuscular Hemoglobin 36.2 26.7-34.0 pg Mean Corpuscular HGB Conc 34.8 29.9-35.2 g/dL Platelet Count 34 150-450 10 3/uL Performing Lab: see note - [facility] LB AMMONIA Reviewed date:11/08/2024 05:26:51 PM Interpretation: Performing Lab: Notes/Report: [facility] , Ammonia 34 11-32 umol/L Performing Lab: see note [facility] LB Bilirubin Total Reviewed date:11/08/2024 05:26:51 PM Interpretation: Performing Lab: Notes/Report: [facility] , Bilirubin Total 1.3 0.2-1.0 mg/dL Performing Lab: see note [facility] LB Vitamin B12 Reviewed date:11/09/2024 09:02:01 PM Interpretation: Performing Lab: Notes/Report: [facility] , Vitamin B12 526 614-0737 pg/mL Performed at: [address] [id number] Liquor Merchant: Brayan Pena PhD, Phone: [phone] Performing Lab: see note [facility] Haptoglobin Reviewed date:11/09/2024 09:02:01 PM Interpretation: Performing Lab: Notes/Report: [facility] , Haptoglobin <10 37-355 mg/dL Performed at: [address] [id number] Liquor Merchant: Brayan Pena PhD, Phone: [phone] Performing Lab: see note [facility] LB Reticulocyte Pct Auto Reviewed date:11/08/2024 05:26:51 PM Interpretation: Performing Lab: Notes/Report: [facility] , Reticulocyte Pct Auto 1.31 0.60-3.10 % Performing Lab: see note [facility] LB Manual Differential Reviewed date:11/08/2024 05:26:51 PM Interpretation: Performing Lab: Notes/Report: [facility] , Segmented Neutrophils % Manual 47.0 43.0-75.0 [...] 1+ Schistocytes 1+ Performing Lab: see note [facility] LB IRON AND TIBC Reviewed date:11/08/2024 05:26:51 PM Interpretation: Performing Lab: Notes/Report: [facility] , Iron 95.0 50.0-170.0 ug/dL Total Iron Binding Capacity 219.0 250.0-450.0 ug/dL Percent Iron Saturation 43.4 Performing Lab: see note ML - [facility] LB FOLATE Reviewed date:11/08/2024 05:26:51 PM Interpretation: Performing Lab: Notes/Report: [facility] , Folate 22.30 8.60-58.90 ng/mL Performing Lab: see note ML - [facility] LB FERRITIN Reviewed date:11/08/2024 05:26:51 PM Interpretation: Performing Lab: Notes/Report: [facility] , Ferritin 300.0 8.0-252.0 ng/mL Performing Lab: see note ML - [facility] LB CBC AUTO DIFF Reviewed date:11/08/2024 05:26:51 PM Interpretation: Performing Lab: Notes/Report: [facility] , White Blood Count 1.9 4.0-11.0 10 [...] Performing Lab: see note ML - [facility] LB BILIRUBIN CONJUGATED (DIRECT ) Reviewed date:11/08/2024 05:26:51 PM Interpretation: Performing Lab: Notes/Report: [facility] , Bilirubin Direct 0.3 0.0-0.2 mg/dL Performing Lab: see note ML - [facility] LB ECG 12 lead Reviewed date:11/07/2024 06:10:41 PM Interpretation: Performing Lab: Notes/Report: Source Facility: [facility] [place] [address] [place] [address] Electrocardiograph Report Signed Patient: ANDREIA THOMAS MR#: [id number] : 1965 Acct:[id number] Age/Sex: 59 / F ADM Date: 11/07/24 Loc: [place] 218-[address]: Kaitlyn Downing M.D. Ordering Physician: Chance Ware M.D. Date of Service: 11/07/24 Procedure(s): ECG 12 lead Accession Number(s): [id number] cc: [facility] Test Date: 2024-11-07 Pat Name: ANDREIA THOMAS Department: Room: - Gender: Female Test Architect: : 1965 Requested By: 1030 Order Number: [id number] Reading MD: GONZALEZ BEVERLY M.D. Measurements Intervals [place] Rate: 80 P: 61 [place]: 132 QRS: 16 QRSD: 86 T: 38 QT: 404 QTc: 440 Interpretive Statements 1100 Sinus rhythm 8102 Low QRS voltage in chest leads Abnormal ECG No previous ECG available for comparison Electronically Signed On 11-07-2024 17:53:39 EDT by GONZALEZ BEVERLY M.D. Dictated By: GONZALEZ BEVERLY Signed By: 11/07/24 1753 DD/ 0939 TD/TT: Muffle Worker: [place] [address] Electrocardiograph Report Signed Patient: TY THOMAS MR#: [id number] : 1965 Acct:[id number] Age/Sex: 59 / F ADM Date: 11/07/24 Loc: [place] 218-[address]: Monica Downing M.D. Ordering Physician: Chance Ware M.D. Date of Service: 11/07/24 Procedure(s): ECG 12 lead Accession Number(s): [id number] cc: [facility] Test Date: 2024-11-07 Pat Name: ANDREIA TREVINO Department: 07 Room: - Gender: Female Test Architect: : 1965 Requested By: 1030 Order Number: [id number] Reading MD: GONZALEZ BEVERLY M.D. Measurements Intervals [place] Rate: 80 P: 61 [place]: 132 QRS: 16 QRSD: 86 T: 38 QT: 404 QTc: 440 Interpretive Statements 1100 Sinus rhythm 8102 Low QRS voltage in chest leads Abnormal ECG No previous ECG available for comparison Electronically Reena d On 11-07-2024 17:53:39 EDT by GONZALEZ BEVERLY M.D. Dictated By: GONZALEZ BEVERLY Signed By: 11/07/24 1753 DD/ 0939 TD/TT: Muffle Worker: Vitamin B12 Reviewed date:11/08/2024 05:26:51 PM Interpretation: Performing Lab: Notes/Report: [facility] , Vitamin B12 065 279-2962 pg/mL Performed at: [facility] [address] [id number] Liquor Merchant: Brayan Pena PhD, Phone: [phone] Performing Lab: see note [facility] LB Manual Differential Reviewed date:11/07/2024 03:13:58 PM Interpretation: Performing Lab: Notes/Report: [facility] , Segmented Neutrophils % Manual 56.0 43.0-75.0 [...] 3/uL Macrocytosis 2+ Performing Lab: see note - [facility] LB Blood Culture 2 Reviewed date:11/12/2024 10:59:29 PM Interpretation: Performing Lab: Notes/Report: PEDS [facility] , Blood Culture 2 See Below For Report Blood Culture 2 NG5D NO GROWTH AT 5 DAYS.^NO GROWTH AT 5 DAYS. Performing Lab: see note ML - [facility] LB Blood Culture 1 Reviewed date:11/12/2024 10:59:29 PM Interpretation: Performing Lab: Notes/Report: [facility] , Blood Culture 1 See Below For Report Blood Culture 1 NG5D NO GROWTH AT 5 DAYS.^NO GROWTH AT 5 DAYS. Performing Lab: see note ML - [facility] LB TSH Reviewed date:11/07/2024 03:13:58 PM Interpretation: Performing Lab: Notes/Report: [facility] , Thyroid Stimulating Hormone 0.052 0.358-3.740 uIU/mL Performing Lab: see note ML - [facility] LB T4 Reviewed date:11/07/2024 03:13:58 PM Interpretation: Performing Lab: Notes/Report: [facility] , T4 Thyroxine 10.50 4.80-13.90 ug/dL Performing Lab: see note - [facility] LB PERIPHERAL SMEAR Reviewed date:11/09/2024 09:02:01 PM Interpretation: Performing Lab: Notes/Report: [facility] , Peripheral Smear SEE SCANNED REPORT Performing Lab: see note - [facility] LB MAGNESIUM Reviewed date:11/07/2024 03:13:58 PM Interpretation: Performing Lab: Notes/Report: [facility] , Magnesium 1.9 1.8-2.4 mg/dL Performing Lab: see note ML - [facility] LB LIVER PROFILE Reviewed date:11/07/2024 03:13:58 PM Interpretation: Performing Lab: Notes/Report: [facility] , Bilirubin Total 1.7 0.2-1.0 mg/dL Bilirubin Direct 0.4 0.0-0.2 mg/dL Aspartate Amino Transferase 122 15-37 U/L Alanine Aminotransferase 30 14-59 U/L Alkaline Phosphatase 98 46-116 U/L Total Protein 5.7 6.4-8.2 g/dL Albumin Level 3.3 3.4-5.0 g/dL Globulin 2.4 Albumin Globulin Ratio 1.4 Performing Lab: see note - [facility] LB LDH Reviewed date:11/07/2024 03:13:58 PM Interpretation: Performing Lab: Notes/Report: [facility] , Lactate Dehydrogenase 5257 81-234 U/L Performing Lab: see note ML - [facility] LB LACTATE or LACTIC ACID Reviewed date:11/07/2024 03:13:58 PM Interpretation: Performing Lab: Notes/Report: [facility] , Lactate/Lactic Acid 0.9 0.4-2.0 mmol/L Performing Lab: see note ML - [facility] LB FREE T3 Reviewed date:11/07/2024 03:13:58 PM Interpretation: Performing Lab: Notes/Report: [facility] , Free T3 1.85 2.18-3.98 pg/mL Performing Lab: see note ML - [facility] LB FOLATE Reviewed date:11/07/2024 03:13:58 PM Interpretation: Performing Lab: Notes/Report: [facility] , Folate 21.10 8.60-58.90 ng/mL Performing Lab: see note ML - [facility] LB FIBRINOGEN Reviewed date:11/07/2024 03:13:58 PM Interpretation: Performing Lab: Notes/Report: [facility] , Fibrinogen 275 200-400 mg/dL Performing Lab: see note ML - [facility] LB CBC AUTO DIFF Reviewed date:11/07/2024 03:13:58 PM Interpretation: Performing Lab: Notes/Report: [facility] , White Blood Count 2.2 4.0-11.0 10 [...] Performing Lab: see note ML - [facility] LB ANTIBODY ID PANEL Reviewed date:11/08/2024 07:38:21 PM Interpretation: Performing Lab: Notes/Report: [facility] , Antibody Identification E LAB TESTING Reviewed date:10/11/2024 08:14:00 PM Interpretation: Performing Lab: Notes/Report: [id number] Alkaline Phosphatase Isoenzymes [facility] , Miscellaneous Test COMMENT . Test Ordered: [id number] Alk Phos Isoenzyme Alkaline Phosphatase 80 IU/L CB Reference Range: 44-121 Liver Fraction: 78 % CB Reference Range: 18-85 Bone Fraction: 22 % CB Reference Range: 14-68 Intestinal Frac.: 0 % CB Reference Range: 0-18 Performed at: - [facility] [address] [id number] Liquor Merchant: Brayan Pena PhD, Phone: [phone] Performing Lab: see note - [facility] LB PROF 14(COMP METB) Reviewed date:10/10/2024 01:39:20 PM Interpretation: Performing Lab: Notes/Report: [facility] , Sodium 144 136-145 mmol/L Potassium 3.9 [...] 1.4 Performing Lab: see note ML - [facility] LB LAB TESTING Reviewed date:10/11/2024 08:14:00 PM Interpretation: Performing Lab: Notes/Report: [id number] Mitochondrial (M2) Antibody [facility] , Miscellaneous Test COMMENT . Test Ordered: [id number] Mitochondrial (M2) Antibody Mitochondrial (M2) Antibody <20.0 Units Reference Range: 0.0-20.0 Negative 0.0 - 20.0 Equivocal 20.1 - 24.9 Positive >24.9 Mitochondrial (M2) Antibodies are found in 90-96% of patients with primary biliary cirrhosis. Performed at: [facility] [address] [id number] Liquor Merchant: Brayan Pena PhD, Phone: [phone] Performing Lab: see note - [facility] LB CBC AUTO DIFF Reviewed date:10/10/2024 01:39:20 PM Interpretation: Performing Lab: Notes/Report: [facility] , White Blood Count 3.9 4.0-11.0 10 [...] 3/uL Performing Lab: see note ML - [facility] LB Erythrocyte Sedimentation Ra te Reviewed date:09/07/2024 07:57:57 PM Interpretation: Performing Lab: Notes/Report: [facility] , Erythrocyte Sedimentation Rate 3 <=30 mm/hr Performing Lab: see note ML - [facility] LB VITAMIN D 25 [place] Reviewed date:09/07/2024 07:57:57 PM Interpretation: Performing Lab: Notes/Report: [facility] , Vitamin D 13.2 <20 ng/mL Vit D deficient 20-<30 ng/mL Vit D insufficient 30-100 ng/mL Vit D sufficient >100 ng/mL Potential Toxicity Performing Lab: see note ML - [facility] LB TSH Reviewed date:09/07/2024 07:57:57 PM Interpretation: Performing Lab: Notes/Report: [facility] , Thyroid Stimulating Hormone 17.412 0.358-3.740 uIU/mL Performing Lab: see note ML - [facility] LB T4 Reviewed date:09/07/2024 07:57:57 PM Interpretation: Performing Lab: Notes/Report: [facility] , T4 Thyroxine 5.10 4.80-13.90 ug/dL Performing Lab: see note ML - [facility] LB PROF 14(COMP METB) Reviewed date:09/07/2024 07:57:57 PM Interpretation: Performing Lab: Notes/Report: [facility] , Sodium 146 136-145 mmol/L Potassium 4.3 [...] Performing Lab: see note ML - [facility] LB LIPID PROFILE Reviewed date:09/07/2024 07:57:57 PM Interpretation: Performing Lab: Notes/Report: [facility] , Triglycerides 154 <=150 mg/dL Cholesterol 141 [...] RISK Performing Lab: see note ML - [facility] IRON Reviewed date:09/07/2024 07:57:57 PM Interpretation: Performing Lab: Notes/Report: [facility] , Iron 134.0 50.0-170.0 ug/dL Performing Lab: see note ML - [facility] GLYCOHEMOGLOBIN A1C Reviewed date:09/07/2024 07:57:57 PM Interpretation: Performing Lab: Notes/Report: [facility] , Glycohemoglobin A1C 7.0 4.5-6.2 % ADA RECOMMENDED LIMIT 4.0 - 6.0 ADA THERAPEUTIC TARGET < 7.0 ACTION SUGGESTED > 7.0 Estimated Average Glucose 154 Performing Lab: see note ML - [facility] FREE T3 Reviewed date:09/07/2024 07:57:57 PM Interpretation: Performing Lab: Notes/Report: [facility] , Free T3 1.62 2.18-3.98 pg/mL Performing Lab: see note ML - [facility] CBC AUTO DIFF Reviewed date:09/07/2024 07:57:57 PM Interpretation: Performing Lab: Notes/Report: [facility] , White Blood Count 4.3 4.0-11.0 10 [...] Performing Lab: see note ML - [facility] CT lung screening low-dose Reviewed date:05/14/2024 02:32:46 PM Interpretation: Performing Lab: Notes/Report: Source Facility: [facility] [place] [address] [place] [address] [place] Scan Report Signed Patient: ANDREIA THOMAS MR#: [id number] : 1965 Acct:[id number] Age/Sex: 58 / F ADM Date: 05/10/24 Loc: CT Attending Dr: Kaitlyn Downing M.D. Ordering Physician: Kaitlyn Downing M.D. Date of Service: 05/10/24 Procedure(s): CT lung screening low-dose Accession Number(s): [id number] cc: Kaitlyn Downing M.D. The [address] [address] Patient Name: ANDREIA THOMAS MRN: [id number] date: 1965 Sex: F Assigned Patient Location: CT Current Patient Location: Accession/Order Number: [id number] Exam Date: 05/10/2024 09:32 Report Date: 05/11/2024 [...] M.D. Signed By: 05/11/24607 DD/ 4 TD/TT: Muffle Worker: [place] [address] CT Scan Report Signed Patient: TY THOMAS MR#: [id number] : 1965 Acct:[id number] Age/Sex: 58 / F ADM Date: 05/10/24 Loc: CT Attending Dr: Monica Downing M.D. Ordering Physician: Kaitlyn Downign M.D. Date of Service: 05/10/24 Procedure(s): CT ketan g screening low-dose Accession Number(s): [id number] cc: Kaitlyn Downing M.D. [place] [address] Patient Name: ANDREIA THOMAS MRN: [id number] date: 1965 Sex: F Assigned Patient Location: CT Current Patient Location: Accession/Order Numb er: [id number] Exam Date: 09:32 Report Date: 05/11/2024 06:05 [...] M.D. Signed By: 05/11/24607 DD/ 4 TD/TT: Muffle Worker: PTT Reviewed date:11/07/2024 03:13:58 PM Interpretation: Performing Lab: Notes/Report: [facility] , Partial Thromboplastin Time 25.3 22.3-36.2 sec Performing Lab: see note ML - [facility] LB AMMONIA Reviewed date:11/07/2024 03:13:58 PM Interpretation: Performing Lab: Notes/Report: [facility] , Ammonia 16 11-32 umol/L Performing Lab: see note ML - [facility] LB BNP Reviewed date:09/07/2024 07:57:57 PM Interpretation: Performing Lab: Notes/Report: [facility] , NT Pro B Type Natriuretic Pept 168.0 <=900.0 pg/mL Performing Lab: see note ML - [facility] LB CBC AUTO DIFF Reviewed date:11/09/2024 09:02:01 PM Interpretation: Performing Lab: Notes/Report: [facility] , White Blood Count 3.2 4.0-11.0 10 [...] Performing Lab: see note ML - [facility] LB Reason For Referral Diagnosis 1 GERD (gastroesophage al reflux disease) (K21.9) Referral Organization [facility] Referring Provider First Name Salazar Referring Provider Last Name Salina Referring Provider [facility] alexandra Referred Provider Kenan Wynne Referred Provider Specialty General Surg eugenia Referral Priority Routine Reason home health and phys ical therapy Diagnosis 1 Weakness (R53.1) Diagnosis 2 Vertigo (R42) Diagnosis 3 Arthralgia (M25.50) Referral Organization [facility] Referring Provider First Name Salazar Referring Provider Last Name Salina [facility] Referral Priority Routine Diagnosis 1 Neutropenia (D70.9) Diagnosis 2 Cirrhosis (K74.60) Diagnosis 3 Coagulopathy (D68.9) Diagnosis 4 Pancytopenia (D61.81 8) Diagnosis 5 Severe anemia (D64.9 ) Diagnosis 6 Thrombocytopenia (D6 9.6) Diagnosis 7 Diabetic neuropathy (E11.40) Referral Organization [facility] Referring Provider First Name Salazar Referring Provider Last Name Salina Referring Provider [facility] icine Referred Provider [facility] Referred Provider Specialty Home Health Agency Referral Priority Routine Medications Medication SIG (Take, Route, Frequency, Duration) Notes Start Date End Date Status Levothyroxine Sodium 150 MCG 1 tablet Orally in the morning on an empty stomach for 90 days Active DULoxetine HCl 20 MG 1 capsule Orally On ce a day for 30 days 07/03/2024 Active Cholecalciferol 1.25 MG (83584 UT) 1 capsule Orally once weekly for 90 days 12/15/2024 Active Ferrous Sulfate 325 (65 Fe) MG 1 tablet Orally twice a day for 90 days Active Folic Acid 1 MG 1 tablet Orally Once a day for 90 days 12/11/2024 Active Rosuvastatin Calcium 5 mg TAKE 1 TABLET DAILY Active clonazePAM 2 MG 1 tablets Oral BID - TID for 90 days 02/05/2025 Active Vitamin B12 1000 MCG 1 tablet Orally Onc e a day for 90 days Active Ondansetron 4 MG 1 tablet on the tongue and allow to dissolve Orally qid 11/06/2024 Not-Taking Meclizine HCl 25 MG 1 tablet as needed Orally Q 6 hours PRN 04/04/2024 Active Vitamin D3 1.25 MG (57608 UT) 1 capsule Orally weekly for 90 days 02/05/2025 Active Liothyronine Sodium 5 MCG TAKE 2 TABLETS DAILY Active Social History Tobacco Use: Social History Observation Description Date Details (start date - stop date) Former Smoker NA - NA Alcohol Screen (Audit-C) Question Answer Notes Did you have a drink containing alcohol in the p ast year? No Points 0 Interpretation Negative Tobacco Control (Standard) Question Answer Notes Tobacco use: Former smoker AUDIT-C (Standard) Question Answer Notes Did you have a drink containing alcohol in the p ast year? No Points 0 Interpretation Negative Problems Problem Type SNOMED Code ICD Code Onset Dates Problem Status W/U Status Risk Notes Problem [id number] Unspecified nonsuppurative otitis media, left ear (H65.92) Active confirmed Problem Chronic respiratory failure (06979579) Chronic respiratory failure with hypoxia (J96.11) Active confirmed Problem 151635621 Other diseases o f tongue (K14.8) Active confirmed Problem Palpitations (70651893) Palpitations (R00.2) Active confirmed Problem 05573970 Nasal congestion (R09.81) Active confirmed Problem 720009349 Solitary pulmona ry nodule (R91.1) Active confirmed Problem Gastroesophageal reflux disease (234380914) GERD (gastroesophageal reflux disease) (K21.9) Active confirmed Problem Hypothyroid (63220645) Hypothyroid (E03.9) Activ e confirmed Problem Anxiety state (306662632) Acute anxiety (F41.9) Active confirmed Problem Vitamin B12 deficien cy (092701501) Vitamin B12 deficiency (E53.8) Active confirmed Problem Sleep apnea (77502192) 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) Active confirmed Problem Vertigo (325454184) Vertigo (R42) Active confir med Problem Elevated liver enzym es level (536561464) Elevated liver enzymes (R74.8) Active confirmed Problem Vitamin D deficiency (46049146) Vitamin D deficiency (E55.9) Active confirmed Problem Arthralgia (51961884) Arthralgia (M25.50) Active confirmed Problem Allergic rhinitis (09809035) Allergic rhinitis (J30.9) Active confirmed Problem Fatty liver (457700487) Fatty liver (K76.0) Active confirmed Problem Cirrhotic (902508906) Cirrhosis (K74.60) Active confirmed Problem Cervical disc diseas e (799607209) Cervical disc disease (M50.90) Active confirmed Problem Cellulitis (039342954) Cellulitis (L03.90) Activ e confirmed Problem Pancytopenia (220529402) Pancytopenia (D61.818) Active confirmed Problem Degenerative disc disease (02894944) DDD (degenerative disc disease), lumbar (M51.36) Active confirmed Problem Tobacco user (020759491) Cigarette nicotine dependence without complication (F17.210) Active confirmed Problem Thrombocytopenia (638004259) Thrombocytopenia (D69.6) Active confirmed Problem Diabetic neuropathy (114405444) Diabetic neuropathy (E11.40) Active confirmed Problem Neutropenia (745009951) Neutropenia (D70.9) Active confirmed Problem Diverticular disease of colon (186837730) Diverticula of colon (K57.30) Active confirmed Problem Coagulopathy (73094323) Coagulopathy (D68.9) Active confirmed Problem Anemia (926253406) Severe anemia (D64.9) Active confirmed Problem Polycythemia (947216285) Polycythemia (D75.1) Active confirmed Problem Abnormal hemoglobin (0388928) Abnormal hemoglobin (D58.2) Active confirmed Problem SI - Stress incontinence (65667777) Stress incontinence (N39.3) Active confirmed Problem Acute urinary tract infection (129056451) Acute UTI (N39.0) Active confirmed Problem Agoraphobia (54400277) Agoraphob ia (F40.00) Active confirmed Problem 24734600 Acute non-recurr ent sinusitis, unspecified location (J01.90) Active confirmed Problem hypercholesterolemia (disorder) (12351949) Hypercholesteremia (E78.00) Active confirmed Problem Type II diabetes mellitus without complication (009678429) Controlled type 2 diabetes mellitus (E11.9) Active confirmed Problem Thyromegaly (1554453) Thyromegaly (E01.0) Active confirmed Vital Signs Blood pressure diastolic 72 mm Hg 02/05/2025 Height 62 in 02/05/2025 Blood pressure systolic 138 mm Hg 02/05/2025 Weight 147.8 lbs 02/05/2025 BMI 27.03 kg/m2 02/05/2025 Procedures Procedure Date Ordered Date Performed Result Body Sit e Holter Monitor - 3 days up to 14 days 02/05/2025 N/A Encounters Encounter Location Date Provider Diagnosis [address] [address] 01/29/2025 Salazar Downing GERD (gastroesophage al reflux disease) K21.[address] [address] 02/05/[address] [address] 02/27/2025 Salazar werner [address] [address] 11/17/2024 Salazar Downing Weakness R53.1 ; Arthralgia M25.50 and Vertigo R42 [address] [address] 11/23/2024 Salazar Hoy Neutropenia D70.9 ; Coagulopathy D68.9 ; UTI (urinary tract infection) N39.0 ; Hypokalemia E87.6 and Cirrhosis K74.[address] [address] 12/11/[address] [address] 12/15/[address] [address] 01/10/2025 Salazar werner [address] [place] [address] 01/22/2025 Salazar Downing GERD (gastroesophage al reflux disease) K21.9 [facility] [address] [place] [address] 11/09/2024 Salazar Riverawerner [facility] [address] [facility] [address] 11/09/2024 Salazar Downing [facility] [address] [place] [facility] [address] 11/14/2024 Salazar Downing [facility] [address] [place] [facility] [address] 11/15/2024 Salazar werner [facility] [address] [place] [facility] [address] 11/16/2024 Salazar werner [facility] [address] [place] [facility] [address] 11/17/2024 Salazar Downing [facility] [address] [place] [facility] [place] [address] 09/07/2024 Salazar Downing Abnormal hemoglobin D58.2 [facility] [address] [facility] [address] 09/27/2024 Salazar Downing Acute non-recurrent sinusitis, unspecified location J01.90 [facility] [address] [place] [address] 09/28/2024 Salazar Downing [facility] [address] [facility] [address] 10/10/2024 Salazar Downing [facility] [address] [place] [facility] [address] 10/18/2024 Salazar werner [facility] [address] [place] [facility] [address] 11/06/2024 Salazar Downing [facility] [address] [place] [facility] [address] 04/28/2024 Salazar Downing Cigarette nicotine dependence without complication F17.210 [facility] [address] [place] [place] [address] 05/11/2024 Salazar Miguely [facility] [address] [facility] [address] 05/14/2024 Salazar Miguely [facility] [address] [place] [facility] [address] 06/30/2024 Salazar Downing Controlled type 2 diabetes mellitus E11.9 [facility] [address] [place] [place] [facility] [address] 08/01/2024 Salazar Riveray [facility] [address] [facility] [address] 08/28/2024 Salazar Downing Wellness examination Z01.89 [facility] [address] [place] [address] 04/04/2024 Salazar Riveray Acute non-recurrent sinusitis, unspecified location J01.90 ; Nasal congestion R09.81 ; Vertigo R42 ; GERD (gastroesophageal reflux disease) K21.9 and Diabetic neuropathy E11.40 [facility] [address] [facility] [address] 05/10/2024 Salazar Hoy GERD (gastroesophage al reflux disease) K21.9 [facility] [address] [place] [facility] [address] 07/03/2024 Salazar Hoy GERD (gastroesophage al reflux disease) K21.9 ; Hypothyroid E03.9 ; Controlled type 2 diabetes mellitus E11.9 ; Solitary pulmonary nodule R91.1 and Vertigo R42 [facility] [address] [place] [address] 09/27/2024 Salazar Hoy Hypothyroid E03.9 an d GERD (gastroesophageal reflux disease) K21.9 [facility] [address] [place] [address] 02/05/2025 Salazar Hoy Fatty liver K76.0 ; Palpitation R00.2 and Acute anxiety F41.9 [facility] [address] [place] [address] 11/06/2024 Salazar Hoy GERD (gastroesophage al reflux disease) K21.9 ; Elevated liver enzymes R74.8 and Hypothyroid E03.9 [facility] [address] [place] [address] 11/17/2024 Salazar Downing Hypothyroid E03.9 ; GERD (gastroesophageal reflux disease) K21.9 and Pancytopenia D61.818 [facility] [address] [place] [address] 09/05/2024 Salazar Downing Palpitations R00.2 ; GERD (gastroesophageal reflux disease) K21.9 and Hypothyroid E03.9 Assessments Encounter Date Diagnosis (ICD Code) Assessment Notes Treatment Notes Treatment Clinical Notes Section Notes 04/04/2024 Acute non-recurrent sinusitis, unspecified location (ICD-10 - J01.90) Rest and drink more liquids, especially water. You may use a humidifier or vaporizer to help keep the drainage moist. Dauj-ffo-twgfuqz Nasal Saline may help the stuffy and runny nose. Use Ibuprofen and or Tylenol as needed for fever, chills, body aches or pain. Children 5 years old should not be given tcqp-jsf-eycziqe cough and cold medications such as guaifenesin and dextromethorphan. If you're over age 5, you may try zurf-xpa-vijlbhr cold medications such as guaifenesin and dextromethorphan, [...] 11/06/2024 Elevated liver enzymes (ICD-10 - R74.8) 04/28/2024 Cigarette nicotine dependence without complication (ICD-10 - F17.210) 06/30/2024 Controlled type 2 diabetes mellitus (ICD-10 - E11.9) 08/28/2024 Wellness examination (ICD-10 - Z01.89) 09/07/2024 Abnormal hemoglobin (ICD-10 - D58.2) 09/27/2024 Acute non-recurrent sinusitis, unspecified location (ICD-10 - J01.90) 11/17/2024 Weakness (ICD-10 - R53.1) 11/17/2024 Arthralgia (ICD-10 - M25.50) 11/17/2024 Hypothyroid (ICD-10 - E03.9) 11/17/2024 GERD (gastroesophagea l reflux disease) (ICD-10 - K21.9) 02/05/2025 Fatty liver (ICD-10 - K76.0) 11/23/2024 Neutropenia (ICD-10 - D70.9) 11/23/2024 Coagulopathy (ICD-10 - D68.9) 01/22/2025 GERD (gastroesophagea l reflux disease) (ICD-10 - K21.9) 01/29/2025 GERD (gastroesophagea l reflux disease) (ICD-10 - K21.9) 11/23/2024 UTI (urinary tract infection) (ICD-10 - N39.0) 02/05/2025 Palpitation (ICD-10 - R00.2) 11/17/2024 Pancytopenia (ICD-10 - D61.818) 11/17/2024 Vertigo (ICD-10 - R42) 11/06/2024 Hypothyroid (ICD-10 - E03.9) 09/05/2024 Hypothyroid (ICD-10 - E03.9) 07/03/2024 Controlled type 2 diabetes mellitus (ICD-10 - E11.9) 04/04/2024 Vertigo (ICD-10 - R42) 04/04/2024 GERD (gastroesophagea l reflux disease) (ICD-10 - K21.9) 07/03/2024 Solitary pulmonary nodule (ICD-10 - R91.1) 02/05/2025 Acute anxiety (ICD-10 - F41.9) 11/23/2024 Hypokalemia (ICD-10 - E87.6) 11/23/2024 Cirrhosis (ICD-10 - K74.60) 07/03/2024 Vertigo (ICD-10 - R42) 04/04/2024 Diabetic [...] PROTIME 11/06/2024 SED RATE WESTERGREN 09/05/2024 US ROC DOP LEG LT 12/28/2023 XR ANKLE LT MIN 3 V 12/28/2023 XR GI UPPER AIR KUB DUAL CONTRAST 2023 XR SMALL BOWEL FOLLOW THOUGH 11/11/2023 XR TIB_FIB LT 2V 12/28/2023 THYROID PANEL (T4/TSH/FREE T3) 5 THYROID PANEL (T4/TSH/FREE T3) 5 THYROID PANEL (T4/TSH/FREE T3) 5 CT LUNG CANCER SCREENING 04/28/2024 Holter Monitor - 3 days up to 14 days CMP (COMP MET RAMOS) w/eGFR CKD-EPI 2024 CMP (COMP MET RAMOS) w/eGFR CKD-EPI 2024 CBC WITH DIFF 09/05/2024 CBC WITH DIFF 11/06/2024 Insurance Providers Payer Name Payer Address Payer Phone Subscriber Number Group Number Insured Name Patient Relationship to Insured Coverage Start Date Coverage End Date [employer]MO [employer] [address] [place] [phone] [id number] Yemi Thomas Spouse - patient is the [...] Appendix Right Knee Left Foot Right Wrist Total Hysterectomy Tonsills ORIF Tarsal Metatarsal
--- OUTSIDE RECORDS SUMMARY | 2025-02-28 09:56 | XMS_ITS | Clinical Summary ---
Author Organization [facility] Address [address] [place] [address] Care Team Providers Care Ingredient Scaler Helper Name Role Phone Юлия Guerra MD Unavailable [phone] Henrik Downing MD Primary Care Provider [phone] Allergies Active Allergy Reactions Criticality Noted Date [...] Encounters Date Type Department Care Team Description 01/31/2025 12:30 PM EDT Visit (SP) Office Hematology/Oncolo gy [address] [place] [address] Loc Toribio MD, PhD Clonal hematopoiesis of indeterminate potential (Primary Dx) 01/31/2025 Abstract Hematology/Oncolo gy [address] [place] [address] Salome Cornejo, Research Coordinator Research (IRB [id number] Informed Consent) 01/31/2025 Travel 01/26/2025 Lab Requisition [facility] [address] [place] [address] Loc Toribio MD, PhD Person encountering health services to consult on behalf of another person from Last 3 Months Immunizations Immunization Administration Dates Next Due tetanus diphtheria pertussis (Tdap) vaccine, age 7+ yr (ADACEL, BOOSTRIX) 01/31/2010 Social History Tobacco Use Types Packs/Day Years Used Date Smoking Tobacco: Former Cigarettes Tobacco Cessation:Counseling Given: Not Answered Area Deprivation Index Answer Date Zi rded National Score (1-100), lower number is lower ri sk 83 01/31/2025 State Score (1-10), lower number is lower risk 7 01/31/2025 Data from: https://www.neighborhoodatlas.medicine.[facility].edu/. Last address used for calculation [address] 01/31/2025 Comments Unknown Sex and Gender Information Value Date Recorded Sex Assigned at Not on file Legal Sex Female 7:19 AM EDT Gender Identity Not on file Sexual Orientation Not on file Last Filed Vital Signs Vital Sign Reading Time Taken Comments Blood Pressure 146/95 01/31/2025 12:38 PM EDT Left arm sitting Pulse 85 01/31/2025 12:38 PM EDT Temperature 36.7 C (98 F) 01/31/2025 12:38 PM EDT Respiratory Rate 15 01/31/2025 12:3 8 PM EDT Oxygen Saturation 99% 01/31/2025 12: 38 PM EDT Inhaled Oxygen Concentration - - Weight 65 kg (143 lb 4.8 oz) 01/31/2025 12:38 PM EDT Height 156 cm (5' 1.42 ) 01/31/2025 12: 38 PM EDT Body Mass Index 26.71 01/31/2025 12:38 PM EDT Plan of Treatment Upcoming Encounters Date Type Department Care Team (Late st Contact Info) Description 05/02/2025 2:00 PM EST Visit (SP) Office Hematology/Oncology [address] [place] [address] [place] [address] [place] [address] FOLLOW UP Health Maintenance Due Date Last Done Comments Hib Vaccine (1 of 1 - Risk 1 -dose series) 09/27/1964 Meningococcal Conjugate Vacc ine (1 - Risk 2-dose series) 1965 HbA1C 1968 Diabetic Foot Exam 1973 Dilated Retinal Exam 1973 Meningococcal B Vaccine (1 o f 4 - Increased Risk) 1973 Urine Albumin:Creatinine Ratio 1973 Annual PCP Team Chronic Dise ase Visit 1981 Depression Screening 1981 Hepatitis C Screening 1981 LDL Cholesterol 1981 Pneumococcal Vaccine: 50+ (1 of 2 - PCV) 1982 Shingrix Vaccine (1 of 2) 1982 Cervical Cancer Screening [address] Colonography 2008 Fecal Occult Blood 2008 Sigmoidoscopy 2008 DTaP,Tdap,Td Vaccine (2 - Td or Tdap) 02/01/2020 01/31/2010 Colonoscopy 02/29/2020 02/28/2019 RSV Vaccine (1 - Risk 60-74 years 1-dose series) 2023 Influenza Vaccine (#1) 2025 , 05/16/2018, 05/04/2018, Additional history exists Cologuard (FIT-DNA) 10/20/2027 10/19/2024 Colorectal Cancer Screening 10/20/2027 HIV Screening Completed 11/14/2024 Procedures Procedure Name Priority Date/Time Associated Diagnosis Comments RBC MORPHOLOGY Routine 01/31/2025 2:22 PM EDT Clonal hematopoiesis of indeterminate potential IMMUNOFIXATION SCREEN, SERUM Routine 01/31/2025 2:22 PM EDT Clonal hematopoiesis of indeterminate potential PROTEIN TOTAL BLD Routine 01/31/2025 2:2 2 PM EDT Clonal hematopoiesis of indeterminate potential PROTEIN ELECTROPHORESIS SERUM WITH EFFIE (P) Routine 01/31/2025 2:22 PM EDT Clonal hematopoiesis of indeterminate potential LARGE GRANULAR LYMPH COUNT Routine 01/31/2025 2:22 PM EDT Clonal hematopoiesis of indeterminate potential PATHOLOGIST INTERPRETATION CBC/DIFF Routine 01/31/2025 2:22 PM EDT Clonal hematopoiesis of indeterminate potential CBC + DIFF Routine 01/31/2025 2:22 PM EDT Clonal hematopoiesis of indeterminate potential MISC SEND OUT TST 1 Routine 01/31/2025 2 :22 PM EDT Clonal hematopoiesis of indeterminate potential PROT ELECT SERUM WITH EFFIE AND INTERP Routine 01/31/2025 2:22 PM EDT Clonal hematopoiesis of indeterminate potential COPPER BLOOD Routine 01/31/2025 2:22 PM EDT Clonal hematopoiesis of indeterminate potential LEAD BLOOD Routine 01/31/2025 2:22 PM EDT Clonal hematopoiesis of indeterminate potential ZINC BLD Routine 01/31/2025 2:22 PM EDT Clonal hematopoiesis of indeterminate potential ERYTHROPOIETIN/EPO Routine 01/31/2025 2: 22 PM EDT Clonal hematopoiesis of indeterminate potential IMMUNOGLOBULINS GRAHAM Routine 01/31/2025 2 :22 PM EDT Clonal hematopoiesis of indeterminate potential LARGE GRANULAR LYMPH COUNT Routine 01/31/2025 2:22 PM EDT Clonal hematopoiesis of indeterminate potential LD LACTATE DEHYDRO Routine 01/31/2025 2: 22 PM EDT Clonal hematopoiesis of indeterminate potential COMPREHENSIVE METABOLIC PANEL Routine 01/31/2025 2:22 PM EDT Clonal hematopoiesis of indeterminate potential IMMATURE PLATELET FRACTION Routine 01/31/2025 2:22 PM EDT Clonal hematopoiesis of indeterminate potential HAPTOGLOBIN BLD Routine 01/31/2025 2:22 PM EDT Clonal hematopoiesis of indeterminate potential OUTSIDE BONE MARROW SLIDE REVIEW Routine 01/26/2025 11:03 AM EDT Person encountering health services to consult on behalf of another person from Last 3 Months Results * (ABNORMAL) IMMUNOFIXATION SCREEN, SERUM (01/31/2025 2:22 PM EDT) Pathologist [facility] MPA Result A poorly defined region of restricted mobility is present that may represent an M protein.(A) No M protein is identifie d. 02/04/2025 11:02 AM EDT [facility] Interpretation (MPA) Poorly defined region of restricted mobility in IgG and kappa lanes. Pattern is less well defined or fainter than typically seen in monoclonal gammopathy. This could represent either an atypical presentation of polyclonal immunoglobulins or the presence of a low level IgG kappa monoclonal gammopathy. If clinically indicated, urine monoclonal protein analysis and serum free light chain measurements are recommended to evaluate further for monoclonal gammopathy. Clinical correlation is necessary. 02/04/2025 11:02 AM EDT [facility] Staff Review (MPA) Reviewed by Dr. Benjamin Rai MD 02/04/2025 11:02 AM EDT [facility] Blood BLOOD SPECIMEN / Unknown Venipuncture / Unknown 01/31/2025 2:22 PM EDT 01/31/2025 2:23 PM EDT us Loc Toribio MD, PhD LABORATORY Fin al Result [facility] [address] [facility] [place] [address], * (ABNORMAL) PROTEIN ELECTROPHORESIS SERUM WITH EFFIE (P) (01/31/2025 2:22 PM EDT) Albumin for SPE 4.64 3.43 - 5.41 g/dL 02/05/2025 9:26 AM EDT [facility] Alpha 1 Globulin 0.36 0.18 - 0.43 g/dL 02/05/2025 9:26 AM T [facility] Alpha 2 Globulin 0.81 0.42 - 0.98 g/dL 02/05/2025 9:26 AM EDT [facility] Beta Globulin 0.93 0.61 - 1.17 g/dL 02/05/2025 9:26 AM T [facility] Gamma Globulin 1.07 0.53 - 1.51 g/dL 02/05/2025 9:26 AM T [facility] Interpretation (Prot Electro) An atypical region of restricted mobility is identified on protein electrophoresi s.(A) No definitive M protein is identified on protein electrophore sis. 02/05/2025 9:26 AM EDT [facility] M-Protein Location 02/05/2025 9:26 AM EDT [facility] Comment:Not Applicable. M-Protein Concentration 0.00 <=0.00 g/dL 02/05/2025 9:26 AM T [facility] SPE Staff Review Reviewed by Dr. Benjamin Rai MD 02/05/2025 9:26 AM EDT [facility] Comment (Serum Prot Electro) A reflex test for Monoclonal Protein analysis (immunofixatio n) has been ordered. 02/05/2025 9:26 AM EDT [facility] Interpretation Comment for Protein Electrophoresis The atypical region is relatively poorly defined and may represent an unusual presentation of polyclonal immunoglobulin s, but cannot rule out the presence of a low level M protein. If clinically indicated, monoclonal protein analysis and serum free light chain analysis are suggested to evaluate further for monoclonal gammopathy. 02/05/2025 9:26 AM EDT [facility] Blood BLOOD SPECIMEN / Unknown Venipuncture / Unknown 01/31/2025 2:22 PM EDT 01/31/2025 2:23 PM EDT Narrative [facility] - 02/05/2025 9:26 AM EDT Serum electrophoresis test was performed using the Ubiterra V8 NEXUS capillary electrophoresis method. Results obtained with different assay methods or kits cannot be used interchangeably. us Loc Toribio MD, PhD LABORATORY Fin al Result Performing Organization Address City/[facility]/ZIP Co de Phone Number [facility] [address] [place] [address], [place] * RBC MORPHOLOGY (01/31/2025 2:22 PM EDT) Platelet Estimate Adequate 02/01/2025 6:50 PM EDT [facility] Red Cell Morph Reviewed: unremarkable 02/01/2025 6:50 PM EDT [facility] Blood BLOOD SPECIMEN / Unknown Venipuncture / Unknown 01/31/2025 2:22 PM EDT 01/31/2025 2:23 PM EDT us Loc Toribio MD, PhD LABORATORY Fin al Result Performing Organization Address City/[facility]/ZIP Co de Phone Number [facility] [address] [address], [place] * LARGE GRANULAR LYMPH COUNT (01/31/2025 2:22 PM EDT) Percent LGL 7.0 % of Lymphocytes 025 6:53 PM EDT [facility] Absolute LGL 0.15 k/uL 02/01/2025 6:53 PM EDT [facility] Blood BLOOD SPECIMEN / Unknown Venipuncture / Unknown 01/31/2025 2:22 PM EDT 01/31/2025 2:23 PM EDT us Loc Toribio MD, PhD LABORATORY Fin al Result Performing Organization Address [facility]/ZIP Co de Phone Number [facility] [address] [place] [address], [place] * IMMATURE PLATELET FRACTION (01/31/2025 2:22 PM EDT) Pathologist [facility] Immature PLT Fract 4.4 0.9 - 7.2 % 01/31/2025 2:39 PM EDT [facility] Blood BLOOD SPECIMEN / Unknown Venipuncture / Unknown 01/31/2025 2:22 PM EDT 01/31/2025 2:23 PM EDT us Loc Toribio MD, PhD LABORATORY Fin al Result Performing Organization Address City/[facility] Co de Phone Number [place] [address], [place] * (ABNORMAL) LACTATE DEHYDROGENASE (01/31/2025 2:22 PM EDT) LD 218(H) 135 - 214 U/L 01/31/2025 3:44 PM EDT [facility] Blood BLOOD SPECIMEN / Unknown Venipuncture / Unknown 01/31/2025 2:22 PM EDT 01/31/2025 2:23 PM EDT us Loc Toribio MD, PhD LABORATORY Fin al Result [facility] [address] [facility] [address] [place] [address], [place] * MISC SEND OUT TST 1 (01/31/2025 2:22 PM EDT) Test 1 02/07/2025 3:01 PM EDT [facility] Comment:Research Test Results 1 02/07/2025 3:01 PM EDT [facility] Comment:Research Referral Lab 1 02/07/2025 3:01 PM EDT [facility] Comment:Research Blood BLOOD SPECIMEN / Unknown Venipuncture / Unknown 01/31/2025 2:22 PM EDT 01/31/2025 2:23 PM EDT us Loc Toribio MD, PhD LABORATORY Fin al Result Performing Organization Address [facility] Co de Phone Number [facility] [address] [place] [address] * ZINC BLD (01/31/2025 2:22 PM EDT) Zinc 77 60 - 120 ug/dL 02/01/2025 12:26 PM EDT [facility] Comment:This test was develo ped, and its performance characteristics determined by the [facility] Department of Pathology and Laboratory Medicine. It has not been cleared or approved by the FDA. The [facility] Department of Pathology and Laboratory Medicine is regulated under CLIA as qualified to perform high- complexity testing. This test is used for clinical purposes. It should not be regarded as investigational or for research. Blood BLOOD SPECIMEN / Unknown Venipuncture / Unknown 01/31/2025 2:22 PM EDT 01/31/2025 2:23 PM EDT us Loc Toribio MD, PhD LABORATORY Fin al Result [facility] [address] [facility] [address] [place] [address], [place] * PATHOLOGIST INTERPRETATION CBC/DIFF (01/31/2025 2:22 PM EDT) Pathologist Interpretation, CBCDIF Elevated hemoglobin 02/01/2025 6:54 PM EDT [facility] CBCDIF Pathologist Reviewed by Reviewed by Aysha Moseley M.D. 02/01/2025 6:54 PM EDT [facility] Blood BLOOD SPECIMEN / Unknown Venipuncture / Unknown 01/31/2025 2:22 PM EDT 01/31/2025 2:23 PM EDT us Loc Toribio MD, PhD LABORATORY Fin al Result Performing Organization Address City/[facility]/ZIP Co de Phone Number [facility] [address] [place] [address], [place] * PROTEIN, TOTAL (01/31/2025 2:22 PM EDT) Protein, Total 7.8 6.3 - 8.0 g/dL 01/31/2025 4:08 PM EDT [facility] Blood BLOOD SPECIMEN / Unknown Venipuncture / Unknown 01/31/2025 2:22 PM EDT 01/31/2025 2:23 PM EDT us Loc Toribio MD, PhD LABORATORY Fin al Result Performing Organization Address City/[facility] Co de Phone Number [facility] [address] [place] [address], [place] * LEAD BLOOD (01/31/2025 2:22 PM EDT) Lead <1.0 <3.5 ug/dL 02/01/2025 3:24 PM EDT [facility] Comment: The Centers for Disease Control and Prevention (CDC) recommends a blood lead reference value of less than 3.5 g/dL (Update of the Blood Lead Reference Value - [place], 2020). The CDC's updated Recommended Actions Based on Blood Lead Level can be accessed at www.cdc.gov. Consult your State Department of Health and/or applicable regulatory agencies for specific guidance on testing follow up and patient management. This test was developed, and its performance characteristics determined by the [facility] Department of Pathology and Laboratory Medicine. It has not been cleared or approved by the FDA. The [facility] Department of Pathology and Laboratory Medicine is regulated under CLIA as qualified to perform high- complexity testing. This test is used for clinical purposes. It should not be regarded as investigational or for research. Blood, Venous BLOOD SPECIMEN / Unknown Venipuncture / Unknown 01/31/2025 2:22 PM EDT 01/31/2025 2:23 PM EDT Loc Toribio MD, PhD LABORATORY Fin al Result Performing Organization Address [facility] Co de Phone Number [facility] [address] [place], [place] [id number], [place] * (ABNORMAL) IMMUNOGLOBULINS,IGG,IGA,IGM (01/31/2025 2:22 PM EDT) IgG 978 700 - 1,600 mg/dL 01/31/2025 8:02 PM EDT [facility] IgA 218 70 - 400 mg/dL 01/31/2025 8:02 PM EDT [facility] IgM 302(H) 40 - 230 mg/dL 01/31/2025 8:02 PM EDT [facility] Blood BLOOD SPECIMEN / Unknown Venipuncture / Unknown 01/31/2025 2:22 PM EDT 01/31/2025 2:23 PM EDT Loc Toribio MD, PhD LABORATORY Fin al Result Performing Organization Address City/[facility]/ZIP Co de Phone Number [facility] [address] [place], [place] [id number], [place] * HAPTOGLOBIN (01/31/2025 2:22 PM EDT) Haptoglobin 204 31 - 238 mg/dL 01/31/2025 4:08 PM EDT [facility] Blood BLOOD SPECIMEN / Unknown Venipuncture / Unknown 01/31/2025 2:22 PM EDT 01/31/2025 2:23 PM EDT us Loc Toribio MD, PhD LABORATORY Fin al Result Performing Organization Address [facility]/ZIP Co de Phone Number [facility] [address] [place] [address], [place] * (ABNORMAL) ERYTHROPOIETIN/EPO (01/31/2025 2:22 PM EDT) Erythropoietin 2.4(L) 2.6 - 18.5 mIU/mL 02/01/2025 10:09 AM EDT [facility] Blood BLOOD SPECIMEN / Unknown Venipuncture / Unknown 01/31/2025 2:22 PM EDT 01/31/2025 2:23 PM EDT Narrative [facility] - 02/01/2025 10:09 AM EDT Test analyzed by the Sharri DxI method. us Loc Toribio MD, PhD LABORATORY Fin al Result Performing Organization Address [facility] Co de Phone Number [facility] [place] [address], [place] * COPPER BLOOD (01/31/2025 2:22 PM EDT) Copper 155 80 - 155 ug/dL 02/01/2025 12:26 PM EDT [facility] Comment:This test was devfredio ped, and its performance characteristics determined by the [facility] Department of Pathology and Laboratory Medicine. It has not been cleared or approved by the FDA. The [facility] Department of Pathology and Laboratory Medicine is regulated under CLIA as qualified to perform high- complexity testing. This test is used for clinical purposes. It should not be regarded as investigational or for research. Blood BLOOD SPECIMEN / Unknown Venipuncture / Unknown 01/31/2025 2:22 PM EDT 01/31/2025 2:23 PM EDT us Loc Toribio MD, PhD LABORATORY Fin al Result [facility] [address] [facility] [address] [place] [address], [place] * (ABNORMAL) COMPREHENSIVE METABOLIC PANEL (01/31/2025 2:22 PM EDT) Protein, Total 8.2(H) 6.3 - 8.0 g/dL 01/31/2025 2:52 PM EDT [facility] Albumin 4.6 3.9 - 4.9 g/dL 01/31/2025 2:52 PM EDT [facility] Calcium, Total 10.1 8.5 - 10.2 mg/dL 01/31/2025 2:52 PM EDT [facility] Bilirubin, Total 0.3 0.2 - 1.3 mg/dL 01/31/2025 2:52 PM EDT [facility] Alkaline Phosphatase 271(H) 34 - 123 U/L 01/31/2025 2:52 PM EDT [facility] AST 26 13 - 35 U/L 01/31/2025 2:52 PM EDT [facility] ALT 46(H) 7 - 38 U/L 01/31/2025 2:52 PM EDT [facility] Glucose 119(H) 74 - 99 mg/dL 01/31/2025 2:52 PM EDT [facility] Comment: The [place] Diabetes Association (ADA) provides guidance for cutoff values for fasting glucose and random glucose. The ADA defines fasting as no caloric intake for at least 8 hours. Fasting plasma glucose results between 100 to 125 mg/dL indicate increased risk for diabetes (prediabetes). Fasting plasma glucose results greater than or equal to 126 mg/dL meet the criteria for diagnosis of diabetes. In the absence of unequivocal hyperglycemia, results should be confirmed by repeat testing. In a patient with classic symptoms of hyperglycemia or hyperglycemic crisis, random plasma glucose results greater than or equal to 200 mg/dL meet the criteria for diagnosis of diabetes. Reference: Standards of Medical Care in Diabetes 2016, [place] [employer]. Diabetes Care. 2016.39(Suppl 1). BUN 12 7 - 21 mg/dL 01/31/2025 2:52 PM EDT [facility] Creatinine 0.60 0.58 - 0.96 mg/dL 01/31/2025 2:52 PM EDT [facility] Sodium 141 136 - 144 mmol/L 01/31/2025 2:52 PM EDT [facility] Potassium 5.1 3.7 - 5.1 mmol/L 01/31/2025 2:52 PM EDT [facility] Chloride 101 98 - 107 mmol/L 01/31/2025 2:52 PM EDT [facility] CO2 28 22 - 30 mmol/L 01/31/2025 2:52 PM EDT [facility] Anion Gap 12 8 - 15 mmol/L 01/31/2025 2:52 PM EDT [facility] Estimated Glomerular Filtration Rate 102 >=60 mL/min/1.7 3m 01/31/2025 2:52 PM EDT [facility] Comment:Estimated Glomerular Filtration Rate (eGFR) is calculated using the 2020 CKD-EPI creatinine equation. This equation utilizes serum creatinine, sex, and age as parameters. The creatinine assay has traceable calibration to isotope dilution- mass spectrometry. Refer to KDIGO guidelines for clinical interpretation. In patients with unstable renal function, e.g. those with acute kidney injury, the eGFR may not accurately reflect actual GFR. Blood BLOOD SPECIMEN / Unknown Venipuncture / Unknown 01/31/2025 2:22 PM EDT 01/31/2025 2:23 PM EDT us Loc Toribio MD, PhD LABORATORY Fin al Result [facility] [address] [place] [address], [place] * (ABNORMAL) COMPLETE BLOOD COUNT AND DIFFERENTIAL (01/31/2025 2:22 PM EDT) WBC 10.28 3.70 - 11.00 k/uL 01/31/2025 2:39 PM EDT [facility] Comment:Results checked and verified.No clot detected. RBC 6.33(H) 3.90 - 5.20 m/uL 01/31/2025 2:39 PM EDT [facility] Hemoglobin 17.4(H) 11.5 - 15.5 g/dL 01/31/2025 2:39 PM EDT [facility] Hematocrit 53.4(H) 36.0 - 46.0 % 01/31/2025 2:39 PM EDT [facility] MCV 84.4 80.0 - 100.0 fL 01/31/2025 2:39 PM EDT [facility] MCH 27.5 26.0 - 34.0 pg 01/31/2025 2:39 PM EDT [facility] MCHC 32.6 30.5 - 36.0 g/dL 01/31/2025 2:39 PM EDT [facility] RDW-CV 12.7 11.5 - 15.0 % 01/31/2025 2:39 PM EDT [facility] Platelet Count 259 150 - 400 k/uL 01/31/2025 2:39 PM EDT [facility] MPV 10.0 9.0 - 12.7 fL 01/31/2025 2:39 PM EDT [facility] Neutrophils % 68.8 % 01/31/2025 2:39 PM EDT [facility] Abs Neut 7.08 1.45 - 7.50 k/uL 01/31/2025 2:39 PM EDT [facility] Lymphocytes % 20.6 % 01/31/2025 2:39 PM EDT [facility] Abs Lymph 2.12 1.00 - 4.00 k/uL 01/31/2025 2:39 PM EDT [facility] Monocytes % 8.0 % 01/31/2025 2:39 PM EDT [facility] Abs Shelby 0.82 <0.87 k/uL 01/31/2025 2:39 PM EDT [facility] Eosinophils % 1.3 % 01/31/2025 2:39 PM EDT [facility] Abs Eosin 0.13 <0.46 k/uL 01/31/2025 2:39 PM EDT [facility] Basophils % 0.8 % 01/31/2025 2:39 PM EDT [facility] Abs Baso 0.08 <0.11 k/uL 01/31/2025 2:39 PM EDT [facility] Immature Granulocytes % 0.5 % 01/31/2025 2:39 PM EDT [facility] Abs Immature Gran 0.05 <0.10 k/uL 025 2:39 PM EDT [facility] NRBC 0.0 /100 WBC 01/31/2025 2:39 PM EDT [facility] Absolute nRBC <0.01 <0.01 k/uL 01/31/2025 2:39 PM EDT [facility] Diff Type Auto 01/31/2025 2:39 PM EDT [facility] Blood BLOOD SPECIMEN / Unknown Venipuncture / Unknown 01/31/2025 2:22 PM EDT 01/31/2025 2:23 PM EDT us Loc Toribio MD, PhD LABORATORY Fin al Result Performing Organization Address City/State/[facility] Co de Phone Number [facility] [address] * OUTSIDE BONE MARROW SLIDE REVIEW (01/26/2025 11:03 AM EDT) Case Report Bone Marrow Patholog y Report Case: [id number] Authorizing Provider: Loc Toribio MD, Collected: 01/26/2025 11:03 AM PhD Ordering Location: [facility] Received: 01/26/2025 11:02 AM [facility] Pathologist: Luis Enrique Andrea MD Specimen: Slide(s), 13 SLIDES [id number] / [id number] 02/08/2025 10:15 AM EDT [facility] FINAL DIAGNOSIS A. [facility], [place], [place] [address]. [id number], 11/10/2024: Bone marrow, aspirate, core biopsy, and clot section: - Hypercellular bone marrow with prominent eythroid hyperplasia and occasional atypical erythroid precursors - Adequate megakaryocytes with unremarkable morphology - Increased iron stores without ring sideroblasts - See comment Peripheral blood, smear: - Pancytopenia with macrocytic anemia and thrombocytopenia - Neutropenia 02/08/2025 10:15 AM EDT [facility] at 1015 EDT Diagnosis Comment This 59-year-old female presented to an outside institution with pancytopenia and a history of vitamin B12 deficiency. The patient underwent a bone marrow study which was submitted to the [facility] for review. The bone marrow is hypercellular with prominent erythroid hyperplasia. Occasional atypical erythroid precursors (<5%) are present without evidence of significant dysmegakaryopoiesis or dysgranulopoiesis. There is no evidence of increased blasts. Received immunohistochemistry showed no evidence of parvovirus. Iron stores are increased without ring sideroblasts. 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 Conventional cytogenetics reported an abnormal female karyotype. Flow cytometry was unremarkable. The precise etiology of the bone marrow findings is not entirely certain. A component of reactive or secondary causes, such as therapy/drug, infection, nutriotional and others, should be excluded. A component or underlying evolving myeloid neoplasm may be considered in the right clinical and laboratory setting. There is no evidence of a myelodysplastic syndrome, but a clonal cytopenia of undetermined significance cannot be excluded (CCUS). Both the WHO 5th Edition and ICC 2021 suggest a minimum VAF threshold of >2% for a diagnosis of CCUS as a component of diagnosis. Correlation with the clinical findings is suggested. 02/08/2025 10:15 AM EDT [facility] Performing Lab Diagnostic interpretation performed at: [facility], [address] [place] [address], [address] [id number] Toter: León Eubanks MD 02/08/2025 10:15 AM EDT [facility] Microscopic Description PERIPHERAL BLOOD: CBC (11/10/2024) Diff: By Report WBC 3.47 k/uL Neutrophils % 33.7 Hemoglobin 8.6 g/dL Lymphocytes % 53.9 MCV 107.4 fL Monocytes % 8.9 RDW-CV N/A % Eosinophils % 0.6 Platelet Count 24 k/uL Basophils % 0.3 Immature Granulocytes % Morphology/Interpretat ion: Macrocytic anemia with occasional ovalocytes and teardrop cells. Leukopenia with neutropenia. Thrombocytopenia. BONE MARROW ASPIRATE: Result Normal Range 0 % Blasts 0-2 1 % Promyelocytes 1-5 21 % Myelos/Metas/Bands/Seg s 32-72 3 % Eosinophils 1-6 0 % Basophils 0-1 1 % Monocytes 0-4 68 % Erythroid precursors 13-37 5 % Lymphocytes 7-23 1 % Plasma cells 0-2 Myeloid/Erythro (1.5-4): 0.38. Cells counted: 300. Iron stain result: Increased iron. No evidence of ring sideroblasts. Specimen Quality: Cellular with spicules. Megakaryocytes: Present, unremarkable. Erythropoiesis: Progressive maturation with occasional atypical forms including irregular nuclear contours, nuclear budding, and megaloblastoid forms. Granulopoiesis: Progressive maturation. BONE MARROW BIOPSY: Adequacy: Adequate. Cellularity: Increased, 90%. ME ratio: Decreased. Hematopoiesis: Prominent erythroid hyperplasia. Megakaryocytes: Normal to mildly increased. Megakaryocyte morphology: Unremarkable. Lymphoid infiltrate: Not identified. Bone trabeculae: Unremarkable. Other: Received immunohistochemistry from the outside institution includes staining of the core biopsy for parvovirus which was negative. CLOT SECTION: Marrow particles: Many. Morphology: Similar to biopsy. Other: Received immunohistochemistry from the outside institution includes staining of the clot section for parvovirus which was negative. Received iron staining of the clot biopsy highlights increased stainable iron. ANCILLARY TESTS: Flow cytometry: Per the pathology report, flow cytometry reported a normal immunophenotyping result. No monotypic B-cell population or increase in blasts identified. Cytogenetics: Per the pathology report, conventional cytogenetics reported a normal female karyotype, 46,XX[20]. FISH: Not received. 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 02/08/2025 10:15 AM EDT [facility] Disclaimer Laboratory Developed Test (LDT) Disclaimer: Performance characteristics of immunohistochemical, immunofluorescent, and chromogenic in-situ hybridization tests have been determined by the performing laboratory within [facility]'s [facility] Laboratory Medicine Department ([facility], [facility], [facility], [facility], [facility], [facility], or [facility]) in a manner consistent with CLIA requirements. One or more of these tests may not have been cleared or approved by the FDA. [facility] is regulated under CLIA as qualified to perform high-complexity testing. These tests are used for clinical purposes. These should not be regarded as investigational or for research. Positive and negative controls stain appropriately. 02/08/2025 10:15 AM EDT [facility] Blocks or Slides MICROSCOPE SLIDE / Unknown 01/26/2025 11:03 AM EDT 01/26/2025 11:02 AM EDT us Loc Toribio MD, PhD SURGICAL PATHOLOGY Final Result [facility] [address] [facility] [address] [place] [address], [place] from Last 3 Months Insurance [facility] Care Teams Ingredient Scaler Helper Relationship Specialty Start Date End Date Henrik Downing MD [address] [place] [address] PCP - General Family Medicine 01/24/25 Юлия Guerra MD [address] [place] [phone] Referring Hematology/Oncology 01/24/25
--- OUTSIDE RECORDS SUMMARY | 2025-02-28 09:56 | XMS_ITS | Encounter Summary ---
Author Organization [facility] Address [address] [place] [address] Care Team Providers Care [employer] Name Role Phone Henrik Downing MD Primary Care Provider [phone] Encounter Details Date Type Department Care Team (Late st Contact Info) Description 05/31/2023 Clinisync Result Encounter [facility] Unsolicited Shannan Velez MD [address] [facility] [address] [place] [address] Social History Tobacco Use Types Packs/Day Years [...] Description 01/10/2026 10:20 AM EDT Office Visit [facility] [address] [place] [phone] Misty Peng MD [address] [facility] [address] [place] [address] documented as of this encounter [...] Crowe MD Transcribed by: KERVIN Technologist: MATTI us Shannan Velez MD [facility] Final Resul t documented in this encounter Visit Diagnoses Not on filedocumented in this encounter Care Teams [employer] Relationship Specialty Start Date End Date Henrik Downing MD [address] [place] [address] PCP - General Family Medicine 05/03/23 documented as of this encounter
--- OUTSIDE RECORDS SUMMARY | 2025-02-28 09:56 | XMS_ITS | Clinical Summary ---
Author Organization [facility] Address [id number] [address] [place] [address] Care Team Providers Care Locomotive Engineer Diesel Name Role Phone Henrik Downing MD Primary Care Provider [phone] Allergies Active Allergy Reactions Criticality Noted Date [...] Narrative PM CARDIOVASCULAR - 02/28/2019 8:13 AM [facility] Patient Name: Andreia Thomas Procedure Date No Time: 02/28/2019 CSN : [id number] Date of : 1965 Admit Type: Outpatient Age: 53 Room: [place] [address] Gender: Female Note Status: Finalized Attending MD: Kenan Johnson DO Procedure: Colonoscopy Indications: Rectal bleeding Providers: Kenan Johnson DO Referring MD: Kenan Johnson DO Medicines: General Anesthesia Complications: No immediate complications. Procedure: After I obtained informed consent, the scope was passed under direct vision. Throughout the procedure, the patient's blood pressure, pulse, and oxygen saturations were monitored continuously. The OLYMPUS CF-190L # [id number] ADULT COLONOSCOPE was introduced through the anus [...] 1 week. Procedure Code(s): --- Professional --- 33583, Colonoscopy, flexible; with ablation of tumor(s), polyp(s), or other lesion(s) (includes pre- and post-dilation and guide wire passage, when performed) 23853, 59, Colonoscopy, flexible; with removal of tumor(s), polyp(s), or other lesion(s) by snare technique 32388, 59, Colonoscopy, flexible; with biopsy, single or multiple Diagnosis Code(s): --- Professional --- K64.9, Unspecified hemorrhoids K62.1, Rectal polyp D12.3, Benign neoplasm of transverse colon (hepatic flexure or splenic flexure) K63.3, Ulcer of intestine D12.7, Benign neoplasm of rectosigmoid junction CPT copyright 2017 [employer]. All rights reserved. The codes documented in this report are preliminary and upon agricultural extension agent review may be revised to meet current compliance requirements. DO Kenan Wang DO 02/28/2019 8:10:51 AM Number of Addenda: 0 Note Initiated On: 02/28/2019 7:14 AM Procedure Note Kenan Johnson DO - 02/28/2019 [facility] Patient Name: Andreia Thomas Procedure Date No Time: 02/28/2019 CSN : [id number] Date of : 1965 Admit Type: Outpatient Age: 53 Room: [place] [address] Gender: Female Note Status: Finalized Attending MD: Kenan Johnson DO Procedure: Colonoscopy Indications: Rectal bleeding Providers: Kenan Johnson DO Referring MD: Kenan Johnson DO Medicines: General Anesthesia Complications: No immediate complications. Procedure: After I obtained informed consent, the scope waspassed under direct vision. Throughout the procedure, the patient's blood pressure, pulse, and oxygensaturations were monitored continuously. The OLYMPUS CF-190L # [id number] ADULT COLONOSCOPE was introduced through the anus [...] 1 week. Procedure Code(s): --- Professional --- 94117, Colonoscopy, flexible; with ablation of tumor(s), polyp(s), or other lesion(s) (includespre- and post-dilation and guide wire passage, when performed) 29051, 59, Colonoscopy, flexible; with removal of tumor(s), polyp(s), or other lesion(s) by snare technique 82532, 59, Colonoscopy, flexible; with biopsy,single or multiple Diagnosis Code(s): --- Professional --- K64.9, Unspecified hemorrhoids K62.1, Rectal polyp D12.3, Benign neoplasm of transverse colon (hepatic flexure orsplenic flexure) K63.3, Ulcer of intestine D12.7, Benign neoplasm of rectosigmoid junction CPT copyright 2017 [employer]. All rights reserved. The codes documented in this report are preliminary and upon agricultural extension agent reviewmay be revised to meet current compliance requirements. DO Kenan Wang DO 02/28/2019 8:10:51 AM Number of Addenda: 0 Note Initiated On: 02/28/2019 7:14 AM Kenan Johnson DO GI PROCEDURE ORDERABLES Fin al Result PM CARDIOVASCULAR from Last 3 Months or Most Recently Relevant to Health Maintenance Insurance [employer] Care Teams Locomotive Engineer Diesel Relationship Specialty Start Date End Date Henrik Downing MD PCP - General 11/14/17
--- OUTSIDE RECORDS SUMMARY | 2025-02-28 09:56 | XMS_ITS | Clinical Summary ---
Author Organization [facility] Address [address] [place] [address] Care Team Providers Care Predictive Maintenance Technician Name Role Phone Henrik Downing MD Primary Care Provider [phone] Юлия Guerra MD Unavailable Allergies No known active allergies Medications levothyroxine (Synthroid, Levoxyl) 125 mcg tablet Take [...] before breakfast. Do not open capsule. Active ferrous sulfate 325 (65 Fe) MG EC tablet Take 65 mg of iron by mouth in the morning. Do not crush, chew, or split. Active ergocalciferol (Vitamin D-2) 1.25 MG (34962 Units) capsuleIndicati ons:Vitamin D deficiency Take 1 capsule (50,000 Units) by mouth 1 (one) time per week for 14 doses. 4 capsule 3 11/20/2024 02/21/20 25 cyanocobalamin (Vitamin B-12) 1,000 mcg tabletIndicatio ns:Vitamin B12 deficiency Take 1 tablet (1,000 mcg) by mouth in the morning for 97 doses. 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 Vitamin B12 deficiency 11/12/2024 Assessment & Plan [...] schistocytes, repeat smear here negative for schistocytes -[id number] activity mildly low which is nonspecific, however [...] repeat smear here negative for schistocytes -f/u [id number] activity, PNH flow, BMBx results -CT imaging [...] repeat smear here negative for schistocytes -f/u [id number] activity, PNH flow, BMBx results -CT imaging [...] schistocytes, repeat smear here -Check hemolysis labs, [id number] -HemOnc on board, grateful for their input -Will be undergoing BMBx today -Daily CBC however minimize phlebotomy as much as possible Assessment & Plan (11/09/2024 11:41 PM EDT): - Initial labs at [facility] found to be WBC 2.2, hemoglobin 5.3, platelet count 31 Repeat labs at [facility] show WBC 3.49, hemoglobin 8.4, platelet [...] Encounters Date Type Department Care Team Description 02/23/2025 [facility] [address] [place] [phone] Юлия Guerra MD Comprehensive metabolic panel, Vitamin B12, CBC auto differential 01/23/2025 3:50 PM EDT Lab [facility] Station [address] [place] [address] Vitamin B12 deficiency 01/23/2025 3:00 PM EDT Office Visit [facility] [address] [place] [address] Юлия Guerra MD Vitamin B12 deficiency (Primary Dx); Bone marrow erythroid hyperplasia 01/19/2025 2:25 PM EDT [facility] [address] [place] [address] Pancytopenia (CMS/HCC) 01/04/2025 Abstract [facility] [address] [place] [address] Quique Thurman MD 12/27/2024 10:15 AM EDT Office Visit [facility] [address] [place] [address] Quique Thurman MD Pancytopenia (CMS/HCC) (Primary Dx); Recurrent cold sores 12/05/2024 Telephone [facility] [address] [place] [address] Samantha Patino MA from Last 3 Months Family History Medical History Relation Name Comments Brain cancer Brother COPD Father Prostate cancer Father Thyroid disease Father COPD Mother Heart failure Mother Thyroid disease Mother ckd Mother htn Mother Relation Name Status Comments Brother Father Mother Social History Tobacco Use Types Packs/Day Years Used Date Smoking Tobacco: Former Cigarettes 1 48.3 S tarted: 06/28/1976 Smokeless Tobacco: Never Tobacco Cessation:Counseling Given: Not Answered Alcohol Use Standard Drinks/Week Comments Never 0 (1 standard drink = 0.6 oz pur e alcohol) [facility] Utilities Answer Date Recorded In the past 12 months has e [employer], gas, oil, or water [employer] threatened to shut off services in your [...] any time in the past 12 [facility], were you homeless or living in a assisted (including now)? No 11/09/2024 Hunger Vital Sign Answer Date Recorded Within the past 12 months, y ou worried that your food would run out before you got the money to buy more. Never true 11/10/19 Ran Out of Food in the Last Year Not on file 11/09/2024 Comments Unknown Sex and Gender Information Value Date Recorded Sex Assigned at Female 11/10/2024 8:57 AM EDT Legal Sex Female 10:47 PM EDT Gender Identity Female 11/10/2024 8:57 AM EDT Sexual Orientation Heterosexual or Straight 10/26 8:57 AM EDT Last Filed Vital Signs Vital Sign Reading Time Taken Comments Blood Pressure 123/83 01/23/2025 3:19 PM EDT Pulse 92 01/23/2025 3:19 PM EDT Temperature 36.8 C (98.3 F) 01/23/2025 3:19 PM EDT Respiratory Rate 14 11/23/2024 10:03 AM EDT Oxygen Saturation 96% 01/23/2025 3:19 PM EDT Inhaled Oxygen Concentration - - Weight 67.6 kg (149 lb) 01/23/2025 3:19 PM EDT Height 157.5 cm (5' 2 ) 12/27/2024 10:13 AM EDT Body Mass Index 27.25 12/27/2024 10:13 AM EDT Plan of Treatment Upcoming Encounters Date Type Department Care Team (Late st Contact Info) Description 07/24/2025 11:00 AM EST Office Visit [facility] [address] [place] [address] Юлия Guerra MD [address] [place] [address] Health Maintenance Due Date Last Done Comments CT Colonography 1963 Diabetes: Hemoglobin A1C 1963 FOBT 1963 Sigmoidoscopy 1963 Diabetes: Retinopathy Screening 1973 Diabetes: Urine Protein Screening 1982 Pneumococcal Vaccine: Pediatrics (0 to 5 Years) and At-Risk Patients (6 to 64 Years) (1 of 2 - PCV) 1982 Pap Smear 1984 Cervical Cancer Screening 1993 HPV/Cotest 1993 Mammogram 2003 Zoster Vaccines (1 of 2) 2013 Adult Tetanus 02/01/2020 01/31/2010 COVID-19 Vaccine ( season) 2025 05/29/2021, 09/28/2020, 09/07/2020 Influenza Vaccine (#1) 2025 , 05/16/2018, 05/04/2018, Additional history exists FIT 10/19/2025 10/19/2024 Depression Screening 01/23/2026 01/23/2025 FIT-DNA 10/20/2027 10/19/2024 Colonoscopy 02/28/2029 02/28/2019 Colorectal Cancer Screening 02/28/2029 [...] Procedure Name Priority Date/Time Associated Diagnosis Comments CBC WITH AUTO DIFFERENTIAL Routine 01/23/2025 3:49 PM EDT Vitamin B12 deficiency VITAMIN B12 Routine 01/23/2025 3:49 PM EDT Vitamin B12 deficiency COMPREHENSIVE METABOLIC PANEL Routine 01/23/2025 3:49 PM EDT Vitamin B12 deficiency CBC AND DIFFERENTIAL Routine 01/23/2025 3:49 PM EDT Vitamin B12 deficiency CBC WITH AUTO DIFFERENTIAL Routine 01/19/2025 2:24 PM EDT Pancytopenia (CMS/HCC) CBC AND DIFFERENTIAL Routine 01/19/2025 2:24 PM EDT Pancytopenia (CMS/HCC) COMPREHENSIVE METABOLIC PANEL Routine 01/19/2025 2:24 PM EDT Pancytopenia (CMS/HCC) from Last 3 Months Results * (ABNORMAL) CBC auto differential (01/23/2025 3:49 PM EDT) Only the most recent of2 resultswithin the time period is included. Auto WBC 8.24 4.00 - 10.60 10*3/uL 01/23/2025 4:48 PM EDT [facility] ([facility]) RBC 5.82(H) 3.80 - 5.00 10*6/uL 01/23/2025 4:48 PM EDT [facility] ([facility]) Hemoglobin 16.0(H) 12.0 - 15.0 g/dL 01/23/2025 4:48 PM EDT [facility] ([facility]) Hematocrit 49.7(H) 36.0 - 45.0 % 01/23/2025 4:48 PM EDT [facility] ([facility]) MCV 85.4 82.0 - 98.0 fL 01/23/2025 4:48 PM EDT [facility] ([facility]) MCH 27.5 27.0 - 33.0 pg 01/23/2025 4:48 PM EDT [facility] ([facility]) MCHC 32.2 32.0 - 35.0 g/dL 01/23/2025 4:48 PM EDT [facility] ([facility]) RDW 12.9 11.5 - 15.0 % 01/23/2025 4:48 PM EDT [facility] ([facility]) Neutrophils % 67.5 40.0 - 72.0 % 01/23/2025 4:48 PM EDT [facility] ([facility]) Lymphocytes % 22.3 20.0 - 45.0 % 01/23/2025 4:48 PM EDT [facility] ([facility]) Monocytes % 7.4 5.0 - 12.0 % 01/23/2025 4:48 PM EDT [facility] ([facility]) Eosinophils % 1.6 0.0 - 6.0 % 01/23/2025 4:48 PM EDT [facility] ([facility]) Basophils % 0.7 0.0 - 1.0 % 01/23/2025 4:48 PM EDT [facility] ([facility]) Neutrophils Absolute 5.56 1.60 - 7.60 10*3/uL 01/23/2025 4:48 PM EDT [facility] ([facility]) Lymphocytes Absolute 1.84 1.20 - 4.00 10*3/uL 01/23/2025 4:48 PM EDT [facility] ([facility]) Monocytes Absolute 0.61 0.10 - 1.00 10*3/uL 01/23/2025 4:48 PM EDT [facility] ([facility]) Eosinophils Absolute 0.13 0.00 - 0.50 10*3/uL 01/23/2025 4:48 PM EDT [facility] ([facility]) Basophils Absolute 0.06 0.00 - 0.20 10*3/uL 01/23/2025 4:48 PM EDT [facility] ([facility]) Platelets 223 150 - 400 10*3/uL 01/23/2025 4:48 PM EDT [facility] ([facility]) nRBC % 0.0 0 % 01/23/2025 4:48 PM EDT [facility] ([facility]) Immature Granulocytes % 0.5 0.0 - 1.0 % 01/23/2025 4:48 PM EDT [facility] ([facility]) Immature Granulocytes Absolute 0.04 0.00 - 0.20 10*3/uL 01/23/2025 4:48 PM EDT [facility] ([facility]) Blood Venous blood specimen / Unknown Venipuncture / Unknown 01/23/2025 3:49 PM EDT 01/23/2025 4:33 PM EDT us Юлия Guerra MD LAB BLOOD ORDERABLES Final Res ult Performing Organization Address City/[facility]/ZIP Co de Phone Number [facility] ([facility]) [address] [place], [place] [id number] * Vitamin B12 (01/23/2025 3:49 PM EDT) Vitamin B-12 488 180 - 914 pg/mL 01/23/2025 5:24 PM EDT [facility]) Comment: REFERENCE RANGES: 180-914 pg/mL Normal 145-179 pg/mL Indeterminate <145 pg/mL Deficient Blood Venous blood specimen / Unknown Venipuncture / Unknown 01/23/2025 3:49 PM EDT 01/23/2025 4:32 PM EDT us Юлия Guerra MD LAB BLOOD ORDERABLES Final Res ult Performing Organization Address City/[facility]/ZIP Co de Phone Number [facility] ([facility]) [address] [place] [address] * (ABNORMAL) Comprehensive metabolic panel (01/23/2025 3:49 PM EDT) Only the most recent of2 resultswithin the time period is included. Sodium 135(L) 136 - 145 mmol/L 01/23/2025 5:01 PM EDT [facility] ([facility]) Potassium 4.5 3.5 - 5.1 mmol/L 01/23/2025 5:01 PM EDT [facility] ([facility]) Chloride 101 98 - 107 mmol/L 01/23/2025 5:01 PM T [facility] ([facility]) CO2 26 21 - 31 mmol/L 01/23/2025 5:[address] [facility] ([facility]) Anion Gap 13 7 - 20 mmol/L 01/23/2025 5:[address] [facility] ([facility]) BUN 10 7 - 25 mg/dL 01/23/2025 5:[address] [facility] ([facility]) Creatinine 0.62 0.60 - 1.20 mg/dL 01/23/2025 5:[address] [facility] ([facility]) BUN/Creatinine Ratio 16.1 12/27 5:[address] [facility] ([facility]) Glucose 204(H) 70 - 100 mg/dL 01/23/2025 5:[address] [facility] ([facility]) Calcium 9.5 8.6 - 10.3 mg/dL 01/23/2025 5:[address] [facility] ([facility]) AST 36 13 - 39 U/L 01/23/2025 5:[address] [facility] ([facility]) ALT (SGPT) 75(H) 7 - 52 U/L 01/23/2025 5:[address] [facility] ([facility]) Alkaline Phosphatase 248(H) 34 - 104 U/L 01/23/2025 5:[address] [facility] ([facility]) Total Protein 7.2 6.0 - 8.3 g/dL 01/23/2025 5:[address] [facility] ([facility]) Albumin 4.2 3.5 - 5.7 g/dL 01/23/2025 5:[address] [facility] ([facility]) Total Bilirubin 0.3 0.3 - 1.0 mg/dL 01/23/2025 5:[address] [facility] ([facility]) eGFR 101.3 >60.0 mL/min/1. 73m*2 01/23/2025 5:[address] [facility] ([facility]) Comment:[facility] s estimated glomerular filtration rate (eGFR) [...] blood specimen / Unknown Venipuncture / Unknown 01/23/2025 3:49 PM EDT 01/23/2025 4:32 PM EDT us Юлия Guerra MD LAB BLOOD ORDERABLES Final Res ult [facility] ([facility]) [address] [place] [address] from Last 3 Months Insurance [employer] Advance Directives * Full Code (Latest Code Status on File) Date Activated Date Inactivated Comments 11/09/2024 8:51 PM 11/14/2024 5:06 PM Care Teams Predictive Maintenance Technician Relationship Specialty Start Date End Date Henrik Downing MD [address] [facility] [place] [place] [address] PCP - General Family Medicine 11/10/24 Юлия Guerra MD [address] [place] [phone] Consulting Physician Hematology and Oncology 11/23/24
--- OUTSIDE RECORDS SUMMARY | 2025-02-28 09:56 | XMS_ITS | Encounter Summary ---
Author Organization [facility] Address [address] [place] [address] Care Team Providers Care Cooker Operator Name Role Phone Юлия Guerra MD Unavailable [phone] Henrik Downing MD Primary Care Provider [phone] Source Comments In the event this information is protected by the Federal Confidentiality of Alcohol and Drug AbusePatient Records regulations: The Federal rules restrict any use of the information to criminally investigate or prosecute any alcohol or drug abuse patient.[facility] Encounter Details Date Type Department Care Team ([facility] Contact Info) Description 01/26/2025 Lab Requisition [facility] [place] [address] [place] [address] [place] [phone] Person encountering health services to consult on behalf of another person Social History Tobacco Use Types Packs/Day Years Used Date Smoking Tobacco: Never Assessed Comments Unknown Sex and Gender Information Value Date Recorded Sex Assigned at Not on file Legal Sex Female 7:19 AM EDT Gender Identity Not on file Sexual Orientation Not on file documented as of this encounter Plan of Treatment Upcoming Encounters Date Type Department Care Team (Late Contact Info) Description 05/02/2025 2:00 PM EST Visit (SP) Office Hematology/Oncology [address] [place] [address] [place] [address] [place] [address] FOLLOW UP documented as of this encounter Procedures Procedure Name Priority Date/Time Associated Diagnosis Comments OUTSIDE BONE MARROW SLIDE REVIEW Routine 01/26/2025 11:03 AM EDT Person encountering health services to consult on behalf of another person documented in this encounter Results * OUTSIDE BONE MARROW SLIDE REVIEW (01/26/2025 11:03 AM EDT) Case Report Bone Marrow Patholog y Report Case: [id number] Authorizing Provider: Loc Toribio MD, Collected: 01/26/2025 11:03 AM PhD Ordering Location: [facility] Received: 01/26/2025 11:02 AM [facility] Pathologist: Luis Enrique Andrea MD Specimen: Slide(s), 13 SLIDES [id number] / [id number] 02/08/2025 10:15 AM EDT [facility] FINAL DIAGNOSIS A. [facility], [place], [place] [address]. [id number], 11/10/2024: Bone marrow, aspirate, core biopsy, and clot section: - Hypercellular bone marrow with prominent eythroid hyperplasia and occasional atypical erythroid precursors - Adequate megakaryocytes with unremarkable morphology - Increased iron stores without ring sideroblasts - See comment Peripheral blood, smear: - Pancytopenia with macrocytic anemia and thrombocytopenia - Neutropenia 02/08/2025 10:15 AM EDT [facility] at 1015 EDT Diagnosis Comment This 59-year-old female presented to an outside institution with pancytopenia and a history of vitamin B12 deficiency. The patient underwent a bone marrow study which was submitted to the [facility] for review. The bone marrow is [...] clinical findings is suggested. 02/08/2025 10:15 AM [facility] Performing Lab Diagnostic interpretation performed at: [facility], [address] [place] [address]# [id number] Front Desk Supervisor: León Eubanks MD 02/08/2025 10:15 AM [facility] Microscopic Description PERIPHERAL BLOOD: CBC (11/10/2024) [...] VAF of 3%. 02/08/2025 10:15 AM EDT [facility] Disclaimer Laboratory Developed Test (LDT) Disclaimer: Performance characteristics of immunohistochemical, immunofluorescent, and chromogenic in-situ hybridization tests have been determined by the performing laboratory within [facility]'s [facility] Pathology and Laboratory Medicine Department ([facility], [facility], [facility], [facility], [facility], [facility], or [facility]) in a manner consistent with CLIA requirements. One or more of these tests may not have been cleared or approved by the FDA. [facility] is regulated under CLIA as qualified to perform high-complexity testing. These tests are used for clinical purposes. These should not be regarded as investigational or for research. Positive and negative controls stain appropriately. 02/08/2025 10:15 AM EDT [facility] Blocks or Slides MICROSCOPE SLIDE / Unknown 01/26/2025 11:03 AM EDT 01/26/2025 11:02 AM EDT us Loc Toribio MD, PhD SURGICAL PATHOLOGY Final Result [facility] [address] [facility] [address] [place] [address], documented in this encounter Visit Diagnoses Diagnosis Person encountering health services to consult on behalf of another person Other person consulting on behalf of another person documented in this encounter Care Teams Cooker Operator Relationship Specialty Start Date End Date Henrik Downing MD [address] [place] [address] PCP - General Family Medicine 01/24/25 Юлия Guerra MD [address] [place] [address] Referring Hematology/Oncology 01/24/25 documented as of this encounter
--- OUTSIDE RECORDS SUMMARY | 2025-02-28 11:19 | XMS_ITS | CCD ---
Author Organization [facility] Care Team Providers Care Veterinarian Poultry Name Role Phone Dewey Davidson Unavailable Kaitlyn Joy Primary Care Physician [phone] RU[address] ., DR SAHNI Admitting Unavailable HOY ., DR SANHI Attending Unavailable HOY ., DR SAHNI Primary Care Unavailable HOY ., DR SAHNI Consulting Unavailable HOY ., DR SAHNI Admitting Unavailable HOY ., DR SAHNI Attending Unavailable HOY ., DR SAHNI Primary Care Unavailable HOY ., DR SAHNI Consulting Unavailable TIMMIS, SARAN Admitting Unavailable TIMMIS, SARAN Attending Unavailable HOY ., DR SAHNI Primary Care Unavailable TIMMIS, SARAN Consulting Unavailable ZIEBER, DR TERELL Gambino Consulting Unavailable HOY ., DR SAHNI Admitting Unavailable HOY ., DR SAHNI Attending Unavailable HOY ., DR SAHNI Primary Care Unavailable Kaitlyn Joy MD Primary Care Provider [phone] Mouchli, Mohamad A. Admitting Unavailable Mouchli, Mohamad A. Attending Unavailable Mouchli, Mohamad A. Referring Unavailable Mouchli, Mohamad A. Admitting Unavailable Mouchli, Mohamad A. Attending Unavailable Mouchli, Mohamad A. Referring Unavailable Mouchli, Mohamad A. Attending Unavailable Mouchli, Mohamad A. Attending Unavailable Mouchli, Mohamad A. Referring Unavailable Mouchli, Mohamad A. Admitting Unavailable Mouchli, Mohamad A. Attending Unavailable Mouchli, Mohamad A. Attending Unavailable Parvin, Mohamad ARomana Attending Unavailable Kaitlyn Joy Attending Unavailable Kaitlyn Joy Admitting Unavailable Jose Eduardo Ann Attending Unavailable Jose Eduardo Ann Admitting Unavailable Jose Eduardo Ann DO Attending Provider [phone] Kaitlyn Joy MD Attending Provider Roseline Melendrez Attending Unavailable Roseline Melendrez Admitting Unavailable Roseline Melendrez Attending Unavailable Roseline Melendrez Referring Unavailable Kaitlyn Joy MD Primary Care Provider [phone] ACDE PENG Attending Unavailable Юлия Starks MD Unavailable Kaitlyn Joy MD Primary Care Provider [phone] KAITLYN JOY Primary Care Unavailable ЮЛИЯ STARKS Referring Unavailab le SERENITY SAAVEDRA Attending Unavailabl e KAITLYN JOY Primary Care Unavailable SERENITY SAAVEDRA Referring Unavailabl e RAGUNANTQUIQUE BLANCO Attending Unavailabl e PIRKL, CORETTA Referring Unavailable KAITLYN JOY Referring Unavailable DAYTON SAVAGE Admitting Unavailable ROSA MARIA HOOK Attending Unavailable SHANT, HAL T Referring Unavailable SHANT, HAL T Referring Unavailable SHANT, HAL T Referring Unavailable VIJEJUNA PABLO RUBINYA Attending Unavailable ЮЛИЯ STARKS Attending Unavailable Allergies Allergy Classification Reported Allergen(s) Allergy Type Date of Onset Reaction(s) Facility (7 sources) Sulfonamides (Antibiotic) Propensity to adverse reactions (John) 07/08/2011 Nausea/Vomiting/Di arrhea Nausea/Vomiting/Di arrhea [employer] Other (20 sources) Simvastatin; Translations: [simvastatin] Drug Allergy 023 Unknown (qualifier value), Unknown [facility] (15 sources) Sulfamethoxazole / Trimethoprim; Translations: [sulfamethoxazole- trimethoprim] Drug Allergy Influenza-like illness (finding) [facility] (11 sources) Sulfamethoxazole; Translations: [sulfamethoxazole] Drug Allergy Unknown [facility] (1 source) Sulfamethoxazole / Trimethoprim Drug Allergy 017 [facility] (2 sources) Sulfonamides (Antibiotic) Drug allergy (disorder) 017 [facility] (5 sources) Simvastatin Allergy to substance [facility] Work Phone: (6 sources) Sulfonamides (Antibiotic) Drug Intolerance Vomiting [facility] (7 sources) Trimethoprim; Translations: [TRIMETHOPRIM] Drug Allergy 023 Unknown [facility] Healthcare (5 sources) metFORMIN Drug Allergy Gastrointestinal Upset [facility] (6 sources) Sulfonamides (Antibiotic); Translations: [SULFA (SULFONAMIDE ANTIBIOTICS)] Allergy to substance ([facility]) 07/08/2011 Nausea/Vomiting/Di arrhea Nausea/Vomiting... [facility] Comment on above: Reaction: ([facility]) 07/08/2011 Nausea/Vomiti ng/Diarrhea Nausea/Vomiting/Diarrhea (5 sources) glimeperide Allergy to substance Gastrointestinal Upset [facility] Medications Current Medications Medication Drug Class(es) Dates Sig (Normalized) Sig (Original) [id number] 200 actuat albuterol 0.09 mg/actuat metered dose inhaler (12 sources) beta2-Adrenergic Agonist albuterol HFA (Proventil HFA) 90 mcg/act inhaler every 4 (four) hours. Active take 2 puff(s) by in halation every four hours as needed Proventil HFA 108 (90 Base) MCG/ACT 2 puff as needed Inhalation every 4 hrs Not-Taking Blood Glucose Meter - (7 sources) Blood Glucose Me ter - as directed Active Blood-Glucose Sensor (Freest yle Aline 3 Sensor) device (8 sources) Start: 04-10-2024 Blood-Glucose Sensor (Freestyle Aline 3 Sensor) device Active 0 .ROUTE .MEDSUPPLY April 10, 2024 11:09am change every 14 days Start: 03-08-2024 End: 04-10-2024 Blood-Glucose Sensor (Freest yle Aline 3 Sensor) device Discontinued 0 .ROUTE .MEDSUPPLY March 08, 2024 12:00am April 10, 2024 11:11am change every 14 days Start: 03-08-2024 Blood-Glucose Sensor (Freestyle Aline 3 Sensor) device Active 0 .ROUTE .MEDSUPPLY 2 March 08, 2024 12:00am change every 14 days cetirizine hydrochloride 10 mg oral tablet (5 sources) Histamine-1 Receptor Antagonist Start: 05-03-2023 End: 05-02-2024 take 1 tablet by mouth once daily as needed cetirizine (ZyrTEC) 10 MG tablet Indications: Chronic pansinusitis Take 1 tablet (10 mg) by mouth Daily as needed for allergies. 30 tablet 11 05/03/2023 Active cholecalciferol 0.05 mg oral tablet (8 sources) Vitamin D Start: 09-08-2024 take 1 tablet by mouth once daily cholecalciferol (VITAMIN D3) 50 mcg (2,000 unit) tablet Take 2,000 Units by mouth once daily. 09/08/2024 Active take 1 capsule by [facility] every twenty-four hours Vitamin D3 50 MCG (2000 UT) 1 capsule Orally Once a day Active citalopram 20 mg oral tablet (20 sources) Serotonin Reuptake Inhibitor Start: 08-27-2017 take 1 tablet by mouth once daily CELEXA 20 mg tablet Take 20 mg by mouth once daily. 12/07/2018 Active clonazePAM 2 mg oral tablet (20 sources) Benzodiazepine Start: 03-08-2024 take 1 tablet by mouth twice daily Clonazepam 2 mg tablet Active 2 MG PO Twice daily March 08, 2024 12:00am Start: 08-27-2017 take 1 tablet by [facility] every eight hours as needed KLONOPIN 2 mg tablet Take 2 mg by mouth three times a day as needed for anxiety. 11/23/2018 Active KlonoPIN 2 MG ta blet every 8 (eight) hours. Active cycloSPORINE 0.5 mg/ml ophthalmic suspension (1 source) Calcineurin Inhibitor Immunosuppressant Start: 08-09-2024 take 1 drop(s) into the eye(s) twice daily RESTASIS 0.05 % ophthalmic emulsion Use 1 drop in both eyes two times a day. 08/09/2024 Active dicyclomine hydrochloride 10 mg oral capsule (3 sources) Anticholinergic Start: 05-22-2022 End: 05-17-2023 take 1 capsule by mouth four times daily Bentyl 10 mg Cap 10 mg = 1 cap(s), Oral, QID, X 30 day(s), # 120 cap(s), Refills(s) 11, [id number], 154, cm, 11/25/22 7:21:00 EST, Height/Length Dosing, 74, kg, 05/22/22 [...] day(s), # 90 tab(s), Refills(s) 0, [facility]acy: [facility] #[id number], 154, cm, 06/03/22 14:37:00 EST, Height/Length Dosing, 74.5, kg, 06/03/22 14:37:00 EST, Weight Dosing Start Date: 06/03/22 Stop Date: 09/01/22 Status: Ordered fluticasone propionate 0.05 mg/actuat metered dose nasal spray (5 sources) Corticosteroid Start: 05-03-2023 End: 05-02-2024 take 2 spray(s) nasal route in the morning fluticasone (Flonase) 50 MCG/ACT nasal spray Indications: Chronic pansinusitis Administer 2 sprays into each nostril in the morning. Shake gently. Before first use, prime pump. After use, clean tip and replace cap.. 16 g 11 05/03/2023 Active FreeStyle Aline 2 Sensor Systm - (7 sources) Start: 02-18-2022 FreeStyle Aline 2 Sensor Systm - as directed use with aline reader change q 14 days, check glucose ac, hs and prn for 84 days Jan, Active FreeStyle Aline 2 Sensor Systm - as directed use with aline reader change q 14 days, check glucose ac, hs and prn for 84 days Active glimepiride 4 mg oral tablet (9 sources) Sulfonylurea Start: 02-07-2020 take 1 tablet by mouth once daily Amaryl 4 mg Tab 4 mg = 1 tab(s), Oral, Daily, Refills(s) 0, Blood glucose Start Date: 02/07/20 Status: Ordered glipiZIDE er 5 mg 24 hr extended release oral tablet (5 sources) Sulfonylurea take 1 tablet by mouth every twenty-four hours in the morning glipiZIDE XL (Glucotrol XL) 5 MG 24 hr tablet Take 5 mg by mouth in the morning. Do not crush, chew, or split. . Active Semglee (5 sources) Insulin Analog Start: 06-02-2024 Semglee SubCutaneous, Daily, Refills(s) 0 Start Date: 06/02/24 Status: Ordered insulin glargine (Lantus) 100 UNIT/ML injection Inject under the skin at bedtime Active Insulin Glargine-Yfgn (Semglee(Insulin Glarg-Yfgn)Pen) 100 unit/mL (3 mL) insulin pen (11 sources) Start: 2024 Insulin Glargi ne-Yfgn (Semglee(Insulin Glarg-Yfgn)Pen) 100 unit/mL (3 mL) insulin pen Active 36 UNIT SUBCUT Every evening 2024 1:50pm Start: 03-08-2024 End: 2024 Insulin Glargine-Yfgn (Semgl ee(Insulin Glarg-Yfgn)Pen) 100 unit/mL (3 mL) insulin pen Discontinued 36 UNIT SUBCUT Every evening March 08, 2024 1:00pm 2024 1:50pm Start: 03-08-2024 Insulin Glargi ne-Yfgn (Semglee(Insulin Glarg-Yfgn)Pen) 100 unit/mL (3 mL) insulin pen Active 36 UNIT SUBCUT Every evening March 08, 2024 1:00pm Start: 03-08-2024 End: [...] Start Date: 08/27/17 Status: Ordered levothyroxine (S YNTHROID) 100 mcg tablet Take 125 mcg by mouth once daily. Active take 1 tablet by coleen every twenty-four hours Synthroid 125 MCG 1 tablet Orally Once a day Active liothyronine sodium 0.005 mg oral tablet (20 sources) l-Triiodothyronine Start: 03-08-2024 take 1 tablet by mouth once daily in the morning Liothyronine 5 mcg tablet Active 10 MCG PO Every morning March 08, 2024 12:00am Start: 03-08-2024 take 10 ug by mouth once daily in the morning Liothyronine Active 10 MCG PO Every morning March 08, 2024 12:00am Start: 04-14-2022 take 1 ug by mouth once daily Cytomel 5 mcg Tab mcg tab(s), Oral, Daily, Refills(s) 0, Thyroid Start Date: 04/14/22 Status: Ordered take 2 tablets by mo [facility] every twenty-four hours Liothyronine Sodium 5 MCG 2 tablet on an empty stomach Orally Once a day Active meclizine hydrochloride 25 mg oral tablet (3 sources) Antiemetic Start: 04-10-2024 take 1 tablet by mouth four times daily as needed Meclizine 25 mg tablet Active 25 MG PO Four times daily as needed April 10, 2024 12:00am pantoprazole 40 mg delayed release oral tablet (20 sources) Proton Pump Inhibitor Start: 09-27-2024 take 2 tablets by mouth once daily pantoprazole DR (PROTONIX) 40 mg tablet Take 2 tablets by mouth once daily. 09/27/2024 Active Start: 04-10-2024 Pantoprazole 4 0 mg tablet,delayed release (DR/EC) Active MG PO April 10, 2024 12:00am Start: 04-10-2024 Pantoprazole A ctive MG PO April 10, 2024 12:00am Start: 04-14-2022 take 1 tablet by coleen th once daily pantoprazole 40 mg Oral EC Tab 40 mg = 1 tab(s), Oral, Daily, # 30 tab(s), Refills(s) 3, [facility]acy: [facility] #[id number], 154, cm, 04/14/22 12:07:00 EDT, Height/Length Dosing, 74, kg, 04/14/22 12:07:00 EDT, Weight Dosing Start Date: 04/14/22 Status: Ordered Start: 04-14-2022 take 1 tablet by coleen th once daily pantoprazole 40 mg Oral EC Tab 40 mg = 1 tab(s), Oral, Daily, # 30 tab(s), Refills(s) 3, [facility]acy: [facility] #[id number], 154, cm, 04/14/22 12:07:00 EDT, Height/Length Dosing, 74, kg, 04/14/22 12:07:00 EDT, Weight Dosing Start Date: 04/14/22 Status: Ordered rosuvastatin calcium 5 mg oral tablet (20 sources) HMG-CoA Reductase Inhibitor Start: 03-29-2019 take 1 tablet by mouth once daily rosuvastatin (CRESTOR) 5 mg tablet Take 5 mg by mouth once daily. 03/29/2019 Active Start: 08-27-2017 take 1 tablet by coleen th once daily at bedtime Rosuvastatin 5 mg tablet Active 5 MG PO Daily at bedtime March 08, 2024 12:00am take 1 tablet by coleen th in the morning rosuvastatin (Crestor) 10 MG tablet Take 10 mg by mouth in the morning. Active 0.25 mg, 0.5 mg dose 1.5 [...] QID, # 120 tab(s), Refills(s) 4, Pharmacy: [facility] #[id number], 158, cm, 06/02/24 9:26:00 EST, Height/Length Dosing, 72.6, kg, 06/02/24 9:26:00 EST, Weight Dosing Start Date: 06/02/24 Status: Ordered Completed/Discontinued Medications Medication Drug Class(es) Dates Sig [...] evening Orally Once a day Not-Taking Tirzepatide (5 sources) Start: 03-08-2024 End: 04-10-2024 Tirzepatide (Mounjaro) 2.5 mg/0.5 mL pen injector Discontinued 2.5 MG SUBCUT every week 2 March 08, 2024 12:00am April 10, 2024 11:10am pt has free 1 month trial offer voucher Start: 03-08-2024 Tirzepatide (M raqueljaro) 2.5 mg/0.5 mL pen injector Active 2.5 MG SUBCUT every week 2 March 08, 2024 12:00am pt has free 1 month trial offer voucher Tirzepatide (3 sources) Start: 04-10-2024 End: 06-13-2024 Tirzepatide (Mounjaro) 5 mg/ 0.5 mL pen injector Discontinued 5 MG SUBCUT every week April 10, 2024 12:00am June 13, 2024 5:25pm Start: 04-10-2024 Tirzepatide (M ounjaro) 5 mg/0.5 mL pen injector Active 5 MG SUBCUT every week April 10, 2024 12:00am Problems Active Problems Problem Classification Problem Date Documented Da te Episodic/Chronic Abdominal pain (20 sources) Abdominal pain; Translations: [Abdominal pain, other specified site] Onset: 2 Episodic Administrative/social admission (11 sources) Dietary counseling and surveillance; Translations: [Patient encounter status] Onset: 2 Resolved: 2 Episodic Allergic reactions (6 sources) Atopic dermatitis; Translations: [Other atopic dermatitis] Onset: 3 04-29-2023 Chronic Anal and rectal conditions (7 sources) Rectal pain; Translations: [Other specified diseases of anus and rectum] Episodic Anxiety disorders (20 sources) Agoraphobia; Translations: [Panic disorder] Onset: 5 02-07-2020 Chronic Coagulation and hemorrhagic disorders (2 sources) Thrombocytopenic disorder 10-10-2024 Chronic Congestive heart failure; nonhypertensive (1 source) Unspecified diastolic (congestive) heart failure; Translations: [UNSPECIFIED DIASTOLIC HEART FAILURE] Onset: 3 Chronic Deficiency and other anemia (2 sources) Anemia due to blood loss 10-10-2024 Chronic Deficiency and other anemia (1 source) Hemoglobinopathy; Translations: [Other hemoglobinopathies] Onset: 5 11-08-2024 Chronic Deficiency and other anemia (2 sources) Other pancytopenia; Translations: [Other pancytopenia] Onset: 5 Chronic Deficiency and other anemia (2 sources) Acquired hemolytic anemia, unspecified; Translations: [Acquired hemolytic anemia, unspecified] Onset: 5 Chronic Deficiency and other anemia (1 source) [...] 2 Resolved: 2 Chronic Diverticulosis and diverticulitis (13 sources) Diverticulitis; Translations: [Diverticula of intestine] Onset: 4 02-07-2020 Chronic Esophageal disorders (19 sources) Gastroesophageal reflux disease; Translations: [Gastroesophageal reflux disease without esophagitis] Onset: 2 02-07-2020 Chronic Esophageal disorders (6 sources) Esophagitis; Translations: [Esophagitis, other specified type] Episodic Essential hypertension (9 sources) Essential hypertension; Translations: [Essential (primary) hypertension] Onset: 2 Resolved: 2 Chronic Gastritis and duodenitis (9 sources) Gastritis; Translations: [Gastritis, unspecified, without bleeding] Onset: 2 Episodic Genitourinary symptoms and ill-defined conditions (12 sources) Genuine stress incontinence; Translations: [Stress incontinence (female) (male)] Onset: 5 02-07-2020 Chronic Hemorrhoids (7 sources) External hemorrhoids; Translations: [Residual hemorrhoidal skin tags] Episodic Hypertension with complications and secondary hypertension (1 source) Hypertensive heart disease with heart failure; Translations: [HTN HEART DISEASE W/HEART FAIL] Onset: 3 Chronic Mood disorders (11 sources) Depressive disorder 02-07-2020 Chronic Nausea and vomiting (6 sources) Nausea; Translations: [Nausea] Onset: 2 Episodic Nutritional deficiencies (11 sources) Vitamin D deficiency; Translations: [Vitamin D deficiency, unspecified] Onset: 3 11-08-2024 Chronic Other and unspecified benign neoplasm (11 sources) Hyperplastic polyp of large intestine 02-07-2020 Episodic Other and unspecified benign neoplasm (8 sources) History of polyp of colon; Translations: [Personal history of colonic polyps] Onset: 2 Episodic Other circulatory disease (2 sources) Spider nevus; Translations: [Nevus, non-neoplastic] 01-11-2025 Episodic Other ear and sense organ disorders (1 source) Bilateral hearing loss; Translations: [Conductive hearing loss, unilateral, right ear with restricted hearing on the contralateral side] 08-11-2023 Chronic Other ear and sense organ disorders (11 sources) Lesion of external ear 02-14-2020 Episodic Other endocrine disorders (1 source) Hypoglycemia, unspecified; Translations: [Hypoglycemia, unspecified] 04-10-2024 Chronic Other gastrointestinal disorders (13 sources) Heartburn; Translations: [Heartburn] Onset: 2 Episodic Other gastrointestinal disorders (11 sources) History of pancreatitis 02-07-2020 Episodic Other gastrointestinal disorders (1 source) H/O: gastrointestinal disease; Translations: [Personal history of other diseases of the digestive system] Onset: 4 Episodic Other hematologic conditions (1 source) Disorder of hematopoietic morphology; Translations: [Other specified diseases of blood and blood-forming organs] 01-31-2025 Chronic Other hematologic conditions (1 source) Other specified diseases of blood and blood-forming organs; Translations: [Clonal hematopoiesis of indeterminate potential] Onset: 5 Chronic Other liver diseases (2 sources) Cirrhosis of liver 10-10-2024 Chronic Other liver diseases (1 source) Enzyme level - finding; Translations: [Abnormal levels of other serum enzymes] Onset: 4 Episodic Other liver diseases (4 sources) Alkaline phosphatase raised 06-02-2024 Episodic Other nutritional; endocrine; and metabolic disorders (11 sources) Body mass index 30+ - obesity; [...] (7 sources) Overweight; Translations: [Overweight] Episodic Other skin disorders (2 sources) Seborrheic keratosis; Translations: [Other seborrheic keratosis] 01-11-2025 Episodic Other skin disorders (2 sources) Lentiginosis; Translations: [Other melanin hyperpigmentation] 01-11-2025 Episodic Other skin disorders (2 sources) Epidermoid cyst; Translations: [Epidermal cyst] 01-11-2025 Episodic Other upper respiratory disease (4 sources) Chronic rhinitis; Translations: [CHRONIC RHINITIS] Onset: 2 Chronic Other upper respiratory disease (5 sources) Chronic laryngitis; Translations: [Chronic laryngitis] Onset: 3 04-29-2023 Chronic Other upper respiratory disease (5 sources) Chronic rhinitis; Translations: [Chronic rhinitis] Onset: 3 04-29-2023 Chronic Other upper respiratory infections (6 sources) Other chronic sinusitis; Translations: [Chronic sinusitis] Onset: 2 04-29-2023 Chronic Residual codes; unclassified (17 sources) Sleep apnea; Translations: [Sleep apnea, unspecified] Onset: 3 02-07-2020 Chronic Residual codes; unclassified (1 source) Acquired absence of organ; Translations: [Acquired absence of other specified parts of digestive tract] Onset: 4 Episodic Residual codes; unclassified (5 sources) Early satiety; Translations: [Early satiety] Onset: 4 Episodic Spondylosis; intervertebral disc disorders; other back problems (20 sources) Cervical disc disorder; Translations: [Lumbosacral spondylosis] Onset: 3 02-07-2020 Chronic Substance-related disorders (11 sources) Smoker 08-27-2017 Chronic Comment on above: Added secondary to d ocumentation in Social History. Thyroid disorders (20 sources) Hypothyroidism; Translations: [Unspecified hypothyroidism] Onset: 3 02-07-2020 Chronic Thyroid disorders (11 sources) Thyroid dysfunction 08-27-2017 Episodic Unclassified (11 sources) Patient encounter status 04-14-2022 Past or Other Problems Problem Classification Problem Date Documented Date Episodic/Chronic Conditions associated with dizziness or vertigo (7 sources) Peripheral vertigo; Translations: [Other peripheral vertigo, unspecified ear] Onset: 04-29-2023 04-29-2023 Episodic Diseases of mouth; excluding dental (5 sources) Leukoplakia of oral mucosa and tongue; Translations: [Leukoplakia of oral mucosa, including tongue] Onset: 04-29-2023 Resolved: 04-29-2023 04-29-2023 Episodic Nutritional deficiencies (2 sources) Deficiency of other specified B group vitamins; Translations: [Deficiency of other specified B group vitamins] Onset: 11-09-2024 Episodic Other liver diseases (1 source) Elevated liver enzymes level; Translations: [Abnormal levels of other serum enzymes] Onset: 11-08-2024 11-08-2024 Episodic Other lower respiratory disease (1 source) Solitary nodule of lung; Translations: [Solitary pulmonary nodule] Onset: 11-08-2024 11-08-2024 Episodic Other nervous system disorders (1 source) Anosmia; Translations: [ANOSMIA] Onset: 03-18-2022 Episodic Other nervous system disorders (5 sources) Loss of sense of smell; Translations: [Anosmia] Onset: 04-29-2023 04-29-2023 Episodic Other non-epithelial cancer of skin (6 sources) Squamous cell carcinoma of skin of trunk; Translations: [Squamous cell carcinoma of skin of other part of trunk] Onset: 04-29-2023 04-29-2023 Episodic Other non-traumatic joint disorders (4 sources) Pain in unspecified joint; Translations: [PAIN IN UNSPECIFIED JOINT] Onset: 01-15-2022 Episodic Other non-traumatic joint disorders (5 sources) Pain in right knee; Translations: [Pain in joint, lower leg] Onset: 04-29-2023 04-29-2023 Episodic Other nutritional; endocrine; and metabolic disorders (1 source) Body mass index (BMI) 29.0-29.9, adult Onset: 03-11-2022 Resolved: 03-11-2022 Episodic Other screening for suspected conditions (not mental disorders or infectious disease) (4 sources) Screening for malignant neoplasm of colon done; Translations: [Encounter for screening for malignant neoplasm of colon] Onset: 04-14-2022 Episodic Otitis media and related conditions (6 sources) Otitis media; Translations: [Unspecified nonsuppurative otitis media, left ear] Onset: 06-09-2023 06-09-2023 Episodic Residual codes; unclassified (7 sources) Tobacco user; Translations: [Tobacco use disorder, current] Onset: 11-08-2024 11-08-2024 Episodic Unclassified (4 sources) Family history of cholecystectomy 06-02-2024 Viral infection (6 sources) Herpesviral infection, unspecified; Translations: [Parvovirus infection, unspecified] Onset: 11-23-2024 Episodic Results Test Name Value Interpretation Reference Range Facility MISC SEND OUT TST 1on 2024 Test 1 [facility] Comment on above: Research Test Results 1 [facility] Comment on above: Research [facility] COPPER BLOODon 02-01-2025 Copper [Mass/Vol] 155 ug/dL 80 - 155 ug/dL [facility] Comment on above: This test was [facility], and its performance characteristics determined by the [facility] Department of Pathology and Laboratory Medicine. It has not been cleared or approved by the FDA. The [facility] Department of Pathology and Laboratory Medicine is regulated under CLIA as qualified to perform high-complexity testing. This test is used for clinical purposes. It should not be regarded as investigational or for research. ERYTHROPOIETIN/EPOon 025 Erythropoietin (EPO) Qn 2.4 [IU]/L Low [facility] Erythropoietin (EPO) Qnon Interpretation and review of laboratory results Abnormal [facility] Test analyzed by the Sharri DxI method. [facility] Lead (Bld) [Mass/Vol]Ordered By: Danielle Mariscal on 02-01-2025 Interpretation and review of laboratory results Normal [facility] Lead (BldV) [Mass/Vol] ug/dL NINF - 3.5 ug/dL [facility] Comment on above: The Centers for Dise ase Control and Prevention (CDC) recommends a blood [...] and its performance characteristics determined by the [facility] Department of Pathology and Laboratory Medicine. It has not been cleared or approved by the FDA. The [facility] Department of Pathology and Laboratory Medicine is regulated under CLIA as qualified to perform high-complexity testing. This test is used for clinical purposes. It should not be regarded as investigational or for research. [facility] No Panel Informationon 02-01 Interpretation and review of laboratory results Normal [facility] ZINC BLDOrdered By: Eulalia Shukla on 02-01-2025 Zinc [Mass/Vol] 77 ug/dL 60 - 120 ug/dL [facility] Comment on above: This test was develo ped, and its performance characteristics determined by the [facility] Department of Pathology and Laboratory Medicine. It has not been cleared or approved by the FDA. The [facility] Department of Pathology and Laboratory Medicine is regulated under CLIA as qualified to perform high-complexity testing. This test is used for clinical purposes. It should not be regarded as investigational or for research. CBC W Auto Differential pane l (Bld)on 01-31-2025 Basophils (Bld) [#/Vol] 0.08 10*3/uL Normal <0.11 [facility] Comment on above: Order Comment: Speci men Type: BLOOD SPECIMEN Ordering Facility: [facility] Address: [address] [place] [address] Performed By: #### 5 7021-8, IPFR #### [facility] [place] [id number] [address] [place] [address] [place] #### [id number], [id number], STFREV #### [facility] CLIA [id number] [address] [place] [address] [place] Basophils/100 WBC (Bld) 0.8 % Normal [facility] Comment on above: Order Comment: Speci men Type: BLOOD SPECIMEN Ordering Facility: [facility] Address: [address] [place] [address] Performed By: #### 5 7021-8, IPFR #### [facility] CLIA [id number] [address] [place] [address] [place] #### [id number], [id number], STFREV #### [facility] CLIA [id number] [address] [place] [address] [place] Differential cell count method Nom (Bld) Auto Normal [facility] Comment on above: Order Comment: Speci men Type: BLOOD SPECIMEN Ordering Facility: [facility] Address: [address] [place] [address] Performed By: #### 5 7021-8, IPFR #### [facility] [place] [id number] [address] [place] [address] [place] #### [id number], [id number], STFREV #### [facility] CLIA [id number] [address] [place] [address] [place] Eosinophils (Bld) [#/Vol] 0.13 10*3/uL Normal <0.46 [facility] Comment on above: Order Comment: Speci men Type: BLOOD SPECIMEN Ordering Facility: [facility] Address: [address] [place] [address] Performed By: #### 5 7021-8, IPFR #### [facility] [place] [id number] [address] [place] [address] [place] #### [id number], [id number], STFREV #### [facility] CLIA [id number] [address] [place] [address] [place] Eosinophils/100 WBC (Bld) 1.3 % Normal [facility] Comment on above: Order Comment: Speci men Type: BLOOD SPECIMEN Ordering Facility: [facility] Address: [address] [place] [address] Performed By: #### 5 7021-8, IPFR #### [facility] CLIA [id number] [address] [id number] [address] [place] #### [id number], [id number], STFREV #### [facility] CLIA [id number] [address] [place] [address] [place] Erythrocyte distribution width (RBC) [Ratio] 12.7 % Normal 11.5-15.0 [facility] Comment on above: Order Comment: Speci men Type: BLOOD SPECIMEN Ordering Facility: [facility] Address: [address] [place] [address] Performed By: #### 5 7021-8, IPFR #### [facility] [place] [id number] [address] [place] [address] [place] #### [id number], [id number], STFREV #### [facility] [place] [id number] [address] [place] [address] [place] Hematocrit (Bld) [Volume fraction] 53.4 % High 36.0-46.0 [facility] Comment on above: Order Comment: Speci men Type: BLOOD SPECIMEN Ordering Facility: [facility] Address: [address] [place] [address] Performed By: #### 5 7021-8, IPFR #### [facility] [place] [id number] [address] [place] [address] [place] #### [id number], [id number], STFREV #### [facility] CLIA [id number] [address] [place] [address] [place] Hemoglobin (Bld) [Mass/Vol] 17.4 g/dL High 11.5-15.5 [facility] Comment on above: Order Comment: Speci men Type: BLOOD SPECIMEN Ordering Facility: [facility] Address: [address] [place] [address] Performed By: #### 5 7021-8, IPFR #### [facility] [place] [id number] [address] [place] [address] [place] #### [id number], [id number], STFREV #### [facility] CLIA [id number] [address] [place] [address] [place] Immature granulocytes (Bld) [#/Vol] 0.05 10*3/uL Normal <0.10 [facility] Comment on above: Order Comment: Speci men Type: BLOOD SPECIMEN Ordering Facility: [facility] Address: [address] [place] [address] Performed By: #### 5 7021-8, IPFR #### [facility] [place] [id number] [address] [place] [address] [place] #### [id number], [id number], STFREV #### [facility] CLIA [id number] [address] [place] [address] [place] Immature granulocytes/100 WBC (Bld) 0.5 % Normal [facility] Comment on above: Order Comment: Speci men Type: BLOOD SPECIMEN Ordering Facility: [facility] Address: [address] [place] [address] Performed By: #### 5 7021-8, IPFR #### [facility] [place] [id number] [address] [place] [address] [place] #### [id number], [id number], STFREV #### [facility] CLIA [id number] [address] [place] [address] [place] Lymphocytes (Bld) [#/Vol] 2.12 10*3/uL Normal 1.00-4.00 [facility] Comment on above: Order Comment: Speci men Type: BLOOD SPECIMEN Ordering Facility: [facility] Address: [address] [place] [address] Performed By: #### 5 7021-8, IPFR #### [facility] CLIA [id number] [address] [place] [address] [place] #### [id number], [id number], STFREV #### [facility] CLIA [id number] [address] [place] [address] [place] Lymphocytes/100 WBC (Bld) 20.6 % Normal [facility] Comment on above: Order Comment: Speci men Type: BLOOD SPECIMEN Ordering Facility: [facility] Address: [address] [place] [address] Performed By: #### 5 7021-8, IPFR #### [facility] [place] [id number] [address] [place] [address] [place] #### [id number], [id number], STFREV #### [facility] [place] [id number] [address] [place] [address] [place] MCH (RBC) [Entitic mass] 27.5 pg Normal 26.0-34.0 [facility] Comment on above: Order Comment: Speci men Type: BLOOD SPECIMEN Ordering Facility: [facility] Address: [address] [place] [address] Performed By: #### 5 7021-8, IPFR #### [facility] [place] [id number] [address] [place] [address] [place] #### [id number], [id number], STFREV #### [facility] CLIA [id number] [address] [place] [address] [place] MCHC (RBC) [Mass/Vol] 32.6 g/dL Normal 30.5-36.0 [facility] Comment on above: Order Comment: Speci men Type: BLOOD SPECIMEN Ordering Facility: [facility] Address: [address] [place] [address] Performed By: #### 5 7021-8, IPFR #### [facility] [place] [id number] [address] [place] [address] [place] #### [id number], [id number], STFREV #### [facility] CLIA [id number] [address] [place] [address] [place] MCV (RBC) [Entitic vol] 84.4 fL Normal 80.0-100.0 [facility] Comment on above: Order Comment: Speci men Type: BLOOD SPECIMEN Ordering Facility: [facility] Address: [address] [place] [address] Performed By: #### 5 7021-8, IPFR #### [facility] [id number] [address] [place] [address] [place] #### [id number], [id number], STFREV #### [facility] CLIA [id number] [address] [place] [address] [place] Monocytes (Bld) [#/Vol] 0.82 10*3/uL Normal <0.87 [facility] Comment on above: Order Comment: Speci men Type: BLOOD SPECIMEN Ordering Facility: [facility] Address: [address] [place] [address] Performed By: #### 5 7021-8, IPFR #### [facility] [place] [id number] [address] [place] [address] [place] #### [id number], [id number], STFREV #### [facility] CLIA [id number] [address] [place] [address] [place] Monocytes/100 WBC (Bld) 8.0 % Normal [facility] Comment on above: Order Comment: Speci men Type: BLOOD SPECIMEN Ordering Facility: [facility] Address: [address] [place] [address] Performed By: #### 5 7021-8, IPFR #### [facility] CLIA [id number] [address] [place] [address] [place] #### [id number], [id number], STFREV #### [facility] CLIA [id number] [address] [place] [address] [place] Neutrophils (Bld) [#/Vol] 7.08 10*3/uL Normal 1.45-7.50 [facility] Comment on above: Order Comment: Speci men Type: BLOOD SPECIMEN Ordering Facility: [facility] Address: [address] [place] [address] Performed By: #### 5 7021-8, IPFR #### [facility] [place] [id number] [address] [place] [address] [place] #### [id number], [id number], STFREV #### [facility] CLIA [id number] [address] [place] [address] [place] Neutrophils/100 WBC (Bld) 68.8 % Normal [facility] Comment on above: Order Comment: Speci men Type: BLOOD SPECIMEN Ordering Facility: [facility] Address: [address] [place] [address] Performed By: #### 5 7021-8, IPFR #### [facility] [place] [id number] [address] [place] [address] [place] #### [id number], [id number], STFREV #### [facility] CLIA [id number] [address] [place] [address] [place] Nucleated RBC (Bld) [#/Vol] 10*3/uL Normal <0.01 [facility] Comment on above: Order Comment: Speci men Type: BLOOD SPECIMEN Ordering Facility: [facility] Address: [address] [place] [address] Performed By: #### 5 7021-8, IPFR #### [facility] CLIA [id number] [address] [place] [address] [place] #### [id number], [id number], STFREV #### [facility] CLIA [id number] [address] [place] [address] [place] Nucleated RBC/100 WBC (Bld) [Ratio] 0.0 /100 WBC Normal [facility] Comment on above: Order Comment: Speci men Type: BLOOD SPECIMEN Ordering Facility: [facility] Address: [address] [place] [address] Performed By: #### 5 7021-8, IPFR #### [facility] [id number] [address] [place] [address] [place] #### [id number], [id number], STFREV #### [facility] CLIA [id number] [address] [place] [address] [place] Platelet mean volume (Bld) [Entitic vol] 10.0 fL Normal 9.0-12.7 [facility] Comment on above: Order Comment: Speci men Type: BLOOD SPECIMEN Ordering Facility: [facility] Address: [address] [place] [address] Performed By: #### 5 7021-8, IPFR #### [facility] [id number] [address] [place] [address] [place] #### [id number], [id number], STFREV #### [facility] CLIA [id number] [address] [place] [address] [place] Platelets (Bld) [#/Vol] 259 10*3/uL Normal 150-400 [facility] Comment on above: Order Comment: Speci men Type: BLOOD SPECIMEN Ordering Facility: [facility] Address: [address] [place] [address] Performed By: #### 5 7021-8, IPFR #### [facility] CLIA [id number] [address] [place] [address] [place] #### [id number], [id number], STFREV #### [facility] [place] [id number] [address] [place] [address] [place] RBC (Bld) [#/Vol] 6.33 10*6/uL High 3.90-5.20 [facility] Comment on above: Order Comment: Speci men Type: BLOOD SPECIMEN Ordering Facility: [facility] Address: [address] [place] [address] Performed By: #### 5 7021-8, IPFR #### [facility] [place] [id number] [address] [place] [address] [place] #### [id number], [id number], STFREV #### [facility] [place] [id number] [address] [place] [address] [place] WBC (Bld) [#/Vol] 10.28 10*3/uL Normal 3.70-11.00 [facility] Comment on above: Order Comment: Speci men Type: BLOOD SPECIMEN Ordering Facility: [facility] Address: [address] [place] [address] Result Comment: Resu lts checked and verified.No clot detected. Performed By: #### 5 7021-8, IPFR #### [facility] [place] [id number] [address] [place] [address] [place] #### [id number], [id number], STFREV #### [facility] [place] [id number] [address] [place] [address] [place] CNOVSPon 01-31-2025 CNOVSP Visit (SP) Office (H EMAVA) -- ANDREIA THOMAS ([id number]) 1965 F Date Time Provider Department 01/31/25 12:30 PM SERENITY SAAVEDRA During your visit today, we recorded the following information about you: Temperature Pulse Respiration Blood pressure 98 degrees 85/minute 15/minute 146/95 Weight Height 65 kg 1.56 m Angi Haley MD 02/08/2025 1:11 PM Signed [facility] DEPARTMENT OF HEMATOLOGY AND MEDICAL ONCOLOGY [facility] NEW CONSULT STAFF PHYSICIAN: Dr. Serenity Saavedra MD, PhD Patient Name: Andreia Thomas DATE of SERVICE: February 01, 2025 Primary Care Physician: Kaitlyn Joy MD Reason for visit: pancytopenia r/o aplastic anemia History of Present Illness: Andreia Thomas is a 59 year old female with a PMHx of T2DM, hypothyroidism, presenting from [facility] after presenting with pancytopenia. Patient was initially admitted on 11/09/2024 at [facility] for confusion and weakness for the past 6 weeks. Her lab work was significant for pancytopenia (WBC 2.2, RBC 1.26, hemoglobin 5.3, hematocrit 15.6, platelet count 31, total bilirubin 1.7, direct bilirubin 0.4, Haptoglobin <3.5, LD 3489, AST 122, ALT 30, alkaline phosphatase 98), previous lab work in 2019 was normal. Patient required 2 U PRBCs. Her Plasma cell dyscrasia work up was negative, HIV, cold agglutinin and PNH panels reported negative. CT C/A/P was done to rule out lymphoma which was negative. Parvovirus IgG, EBV IgM and HSV IgG reported positive. Her blood count improved during her hospital stay and didn't require additional transfusions. BM on 11/10/2024 showed Hypercellular bone marrow for age with erythroid predominance and trilineage dysplasia; no increase in blasts. Mildly increased storage iron; ring sideroblasts present (5% of erythroid precursors DNMT3A: Chr2 (GRCh37):[id number]>A; NM_022552.4(DNMT3A):c.2311 C>T; p.Acl308* (3%). Karyotype: 46,XX[20]. Interval History: Patient, accompanied by her , presents to [facility]. She states that she feels well overall. She complaints of chronic earache and chronic mild lightheadedness when going from lying to standing. She denies fever, chills, chest pain, palpitations, sob, abdominal pain, changes in bowel or bladder habits. Past Medical History: No past medical history on file. Medications: Current Outpatient Medications Medication Sig levothyroxine (SYNTHROID) 100 mcg tablet Take 125 mcg by mouth once daily. liothyronine (CYTOMEL) 5 mcg tablet Take 5 mcg by mouth once daily. rosuvastatin (CRESTOR) 5 mg tablet Take 5 mg by mouth once daily. pantoprazole DR (PROTONIX) 40 mg tablet Take 2 tablets by mouth once daily. RESTASIS 0.05 % ophthalmic emulsion Use 1 drop in both eyes two times a day. CELEXA 20 mg tablet Take 20 mg by mouth once daily. KLONOPIN 2 mg tablet Take 2 mg by mouth three times a day as needed for anxiety. cholecalciferol (VITAMIN D3) 50 mcg (2,000 unit) tablet Take 2,000 Units by mouth once daily. No current facility-administered medications for this visit. Allergies: ALLERGIES Allergen Reactions Simvastatin Unknown Other Reaction(s): Unknown Sulfa (Sulfonamide * Vomiting Other Reaction(s): Unknown, Vomiting Trimethoprim Unknown Other Reaction(s): Unknown Family Hx: No family history on file. 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 Vital Signs: There were no vitals taken for this visit. Physical Exam: ECOG/KPS: 0 General appearance: Well appearing, alert, in no acute distress, well-hydrated, well nourished. Head: Normocephalic, no masses, lesions, tenderness or abnormalities Lungs: Lungs clear to auscultation. No wheezing, rhonchi, rales. Heart: RRR without murmur, gallop, or rubs. No ectopy Abdomen: Normal abdominal exam, Abdomen soft, non-tender. Bowel sounds normal. No masses, organomegaly Extremities: No deformities, edema, skin discoloration, clubbing or cyanosis. Good capillary refill. Neuro: Gait normal. Reflexes normal and symmetric. Sensation grossly intact. Labs: Recent Labs 01/31/25 1422 WBC 10.28 HB 17.4* HCT 53.4* PLT 259 (more content not included)... Normal [facility] COPPER BLOODon 01-31-2025 Copper [Mass/Vol] 155 ug/dL Normal 80-155 [facility] Comment on above: Order Comment: Speci men Type: BLOOD SPECIMEN Ordering Facility: [facility] Address: [address] [place] [address] Result Comment: This test was developed, and its performance characteristics determined by the [facility] Department of Pathology and Laboratory Medicine. It has not been cleared or approved by the FDA. The [facility] Department of Pathology and Laboratory Medicine is regulated under CLIA as qualified to perform high-complexity testing. This test is used for clinical purposes. It should not be regarded as investigational or for research. Performed By: #### 2 4323-8 #### [facility] CLIA [id number] [address] [place], [place] [address] [place] [address] [place] Comprehensive metabolic 2000 panelon 01-31-2025 Albumin [Mass/Vol] 4.6 g/dL 3.9 - 4.9 g/dL [facility] ALP [Catalytic activity/Vol] 271 U/L High 34 - 123 U/L [facility] ALT [Catalytic activity/Vol] 46 U/L High 7 - 38 U/L [facility] Anion gap [Moles/Vol] 12 mmol/L 8 - 15 mmol/L [facility] AST [Catalytic activity/Vol] 26 U/L 13 - 35 U/L [facility] Bilirubin [Mass/Vol] 0.3 mg/dL 0.2 - 1.3 mg/dL [facility] Calcium [Mass/Vol] 10.1 mg/dL 8.5 - 10. 2 mg/dL [facility] Chloride [Moles/Vol] 101 mmol/L 98 - 107 mmol/L [facility] CO2 [Moles/Vol] 28 mmol/L 22 - 30 mmol/L [facility] Creatinine [Mass/Vol] 0.60 mg/dL 0.58 - 0.96 mg/dL [facility] GFR/1.73 sq M.predicted among non-blacks MDRD (S/P/Bld) [Vol rate/Area] 102 mL/min/{1.73_m2} - PINF [facility] Comment on above: Estimated Glomerular Filtration Rate (eGFR) is calculated using the 2020 CKD-EPI creatinine equation. This equation utilizes serum creatinine, sex, and age as parameters. The creatinine assay has traceable calibration to isotope dilution-mass spectrometry. Refer to KDIGO guidelines for clinical interpretation. In patients with unstable renal function, e.g. those with acute kidney injury, the eGFR may not accurately reflect actual GFR. Glucose [Mass/Vol] 119 mg/dL High 74 - 99 mg/dL [facility] Comment on above: The [place] Diab[employer] Association (ADA) provides guidance for cutoff values [...] Standards of Medical Care in Diabetes 2016, [place] [employer]. Diabetes Care. 2016.39(Suppl 1). Interpretation and review of laboratory results Abnormal [facility] Potassium [Moles/Vol] 5.1 mmol/L 3.7 - 5.1 mmol/L [facility] Protein [Mass/Vol] 8.2 g/dL High 6.3 - 8.0 g/dL [facility] Sodium [Moles/Vol] 141 mmol/L 136 - 144 mmol/L [facility] Urea nitrogen [Mass/Vol] 12 mg/dL 7 - 21 mg/dL [facility] Albumin [Mass/Vol] 4.6 g/dL Normal 3.9-4.9 [facility] Comment on above: Order Comment: Speci men Type: BLOOD SPECIMEN Ordering Facility: [facility] Address: [address] [place] [address] Performed By: #### 2 4323-8 #### [facility] [id number] [address] [place] [address] [place] ALP [Catalytic activity/Vol] 271 U/L High 34-123 [facility] Comment on above: Order Comment: Speci men Type: BLOOD SPECIMEN Ordering Facility: [facility] Address: [address] [place] [address] Performed By: #### 2 4323-8 #### [facility] [id number] [address] [place] [address] [place] ALT [Catalytic activity/Vol] 46 U/L High 7-38 [facility] Comment on above: Order Comment: Speci men Type: BLOOD SPECIMEN Ordering Facility: [facility] Address: [address] [place] [address] Performed By: #### 2 4323-8 #### [facility] [id number] [address] [place] [address] [place] Anion gap [Moles/Vol] 12 mmol/L Normal 8-15 [facility] Comment on above: Order Comment: Speci men Type: BLOOD SPECIMEN Ordering Facility: [facility] Address: [address] [place] [address] Performed By: #### 2 4323-8 #### [facility] CLIA [id number] [address] [place] [address] [place] AST [Catalytic activity/Vol] 26 U/L Normal 13-35 [facility] Comment on above: Order Comment: Speci men Type: BLOOD SPECIMEN Ordering Facility: [facility] Address: [address] [place] [address] Performed By: #### 2 4323-8 #### [facility] [place] [id number] [address] [place] [address] [place] Bilirubin [Mass/Vol] 0.3 mg/dL Normal 0.2-1.3 [facility] Comment on above: Order Comment: Speci men Type: BLOOD SPECIMEN Ordering Facility: [facility] Address: [address] [place] [address] Performed By: #### 2 4323-8 #### [facility] [id number] [address] [place] [address] [place] Calcium [Mass/Vol] 10.1 mg/dL Normal 8.5-10.2 [facility] Comment on above: Order Comment: Speci men Type: BLOOD SPECIMEN Ordering Facility: [facility] Address: [address] [place] [address] Performed By: #### 2 4323-8 #### [facility] [id number] [address] [place] [address] [place] Chloride [Moles/Vol] 101 mmol/L Normal 98-107 [facility] Comment on above: Order Comment: Speci men Type: BLOOD SPECIMEN Ordering Facility: [facility] Address: [address] [place] [address] Performed By: #### 2 4323-8 #### [facility] CLIA [id number] [address] [place] [address] [place] CO2 [Moles/Vol] 28 mmol/L Normal 22-30 [facility] Comment on above: Order Comment: Speci men Type: BLOOD SPECIMEN Ordering Facility: [facility] Address: [address] [place] [address] Performed By: #### 2 4323-8 #### [facility] [id number] [address] [place] [address] [place] Creatinine [Mass/Vol] 0.60 mg/dL Normal 0.58-0.96 [facility] Comment on above: Order Comment: Felixi men Type: BLOOD SPECIMEN Ordering Facility: [facility] Address: [address] [place] [address] Performed By: #### 2 4323-8 #### [facility] [id number] [address] [place] [address] [place] eGFRcr SerPlBld CKD-EPI 2020 102 mL/min/1.73m??? Normal >=60 [facility] Comment on above: Order Comment: Gris juarez Type: BLOOD SPECIMEN Ordering Facility: [facility] Address: [address] [place] [address] Result Comment: Talita mated Glomerular Filtration Rate (eGFR) is calculated using the 2020 CKD-EPI creatinine equation. This equation utilizes serum creatinine, sex, and age as parameters. The creatinine assay has traceable calibration to isotope dilution-mass spectrometry. Refer to KDIGO guidelines for clinical interpretation. In patients with unstable renal function, e.g. those with acute kidney injury, the eGFR may not accurately reflect actual GFR. Performed By: #### 2 4323-8 #### [facility] [id number] [address] [place] [address] [place] Glucose [Mass/Vol] 119 mg/dL High 74-99 [facility] Comment on above: Order Comment: Felixi ann Type: BLOOD SPECIMEN Ordering Facility: [facility] Address: [address] [place] [address] Result Comment: The [place] [employer] (ADA) provides guidance for cutoff [...] Standards of Medical Care in Diabetes 2016, [place] [employer]. Diabetes Care. 2016.39(Suppl 1). Performed By: #### 2 4323-8 #### [facility] [id number] [address] [place] [address] [place] Potassium [Moles/Vol] 5.1 mmol/L Normal 3.7-5.1 [facility] Comment on above: Order Comment: Felixi ann Type: BLOOD SPECIMEN Ordering Facility: [facility] Address: [address] [place] [address] Performed By: #### 2 4323-8 #### [facility] [id number] [address] [place] [address] [place] Protein [Mass/Vol] 8.2 g/dL High 6.3-8.0 [facility] Comment on above: Order Comment: Felixi ann Type: BLOOD SPECIMEN Ordering Facility: [facility] Address: [address] [place] [address] Performed By: #### 2 4323-8 #### [facility] [place] [id number] [address] [place] [address] [place] Sodium [Moles/Vol] 141 mmol/L Normal 136-144 [facility] Comment on above: Order Comment: Felixi men Type: BLOOD SPECIMEN Ordering Facility: [facility] Address: [address] [place] [address] Performed By: #### 2 4323-8 #### [facility] [id number] [address] [place] [address] [place] Urea nitrogen [Mass/Vol] 12 mg/dL Normal 7-21 [facility] Comment on above: Order Comment: Speci men Type: BLOOD SPECIMEN Ordering Facility: [facility] Address: [address] [place] [address] Performed By: #### 2 4323-8 #### [facility] CLIA [id number] [address] [place] [address] [place] EPO SerPl-aCncon 01-31-2025 Erythropoietin (EPO) Qn 2.4 mIU/mL Low 2.6-18.5 [facility] Comment on above: Order Comment: Speci men Type: BLOOD SPECIMEN Ordering Facility: [facility] Address: [address] [place] [address] Performed By: #### 1 5061-5 #### [facility] CLIA [id number] [address] [place] [address] [place] HAPTOGLOBINon 01-31-2025 Haptoglobin [Mass/Vol] 204 mg/dL 31 - 238 mg/dL [facility] Haptoglob SerPl-mCncon 01-31 Haptoglobin [Mass/Vol] 204 mg/dL Normal 31-238 [facility] Comment on above: Order Comment: Felixi ann Type: BLOOD SPECIMEN Ordering Facility: [facility] Address: [address] [place] [address] Performed By: #### S ERIMM #### [facility] CLIA [id number] [address] [place] [address] [place] Haptoglobin [Mass/Vol]on Interpretation and review of laboratory results Normal [facility] IMMATURE PLATELET FRACTIONon 01-31-2025 Interpretation and review of laboratory results Normal [facility] Platelets reticulated/100 platelets Auto (Bld) 4.4 % 0.9 - 7.2 % [facility] Platelets reticulated/100 platelets Auto (Bld) 4.4 % Normal 0.9-7.2 [facility] Comment on above: Order Comment: Felixi men Type: BLOOD SPECIMEN Ordering Facility: [facility] Address: [address] [place] [address] Performed By: #### 5 7021-8, IPFR #### [facility] CLIA [id number] [address] [place] [address] [place] #### [id number], [id number], STFREV #### [facility] CLIA [id number] [address] [place] [address] [place] IMMUNOFIXATION SCREEN, SERUM on 01-31-2025 INTERPRETATION (MPA) Poorly defined region of restricted mobility [...] for monoclonal gammopathy. Clinical correlation is necessary. Normal [facility] Comment on above: Order Comment: Speci men Type: BLOOD SPECIMEN Ordering Facility: [facility] Address: [address] [place] [address] Performed By: #### L [id number], IFESC #### [facility] CLIA [id number] [address] [place] [address] MPA RESULT A poorly defined reg ion of restricted mobility is present that may represent an M protein. Abnormal No M protein is identified. [facility] Comment on above: Order Comment: Speci men Type: BLOOD SPECIMEN Ordering Facility: [facility] Address: [address] [place] [address] Performed By: #### L [id number], IFESC #### [facility] CLIA [id number] [address] [place] [address] [place] STAFF REVIEW (MPA) Reviewed by Dr. Sal Rai MD Normal [facility] Comment on above: Order Comment: Gris juarez Type: BLOOD SPECIMEN Ordering Facility: [facility] Address: [address] [place] [address] Performed By: #### L [id number], IFESC #### [facility] CLIA [id number] [address] [place] [address] [place] IMMUNOGLOBULINS,IGG,IGA,IGMo n 01-31-2025 IgA [Mass/Vol] 218 mg/dL 70 - 400 mg/dL [facility] IgG [Mass/Vol] 978 mg/dL 700 - 1600 mg/dL [facility] IgM [Mass/Vol] 302 mg/dL High 40 - 230 mg/dL [facility] Interpretation and review of laboratory results Abnormal [facility] IgA [Mass/Vol] 218 mg/dL Normal 70-400 [facility] Comment on above: Order Comment: Speci men Type: BLOOD SPECIMEN Ordering Facility: [facility] Address: [address] [place] [address] Performed By: #### S ERIMM #### [facility] CLIA [id number] [address] [place] [address] [place] IgG [Mass/Vol] 978 mg/dL Normal 700-1600 [facility] Comment on above: Order Comment: Speci men Type: BLOOD SPECIMEN Ordering Facility: [facility] Address: [address] [place] [address] Performed By: #### S ERIMM #### [facility] CLIA [id number] [address] [place] [address] [place] IgM [Mass/Vol] 302 mg/dL High 40-230 [facility] Comment on above: Order Comment: Speci men Type: BLOOD SPECIMEN Ordering Facility: [facility] Address: [address] [place] [address] Performed By: #### S ERIMM #### [facility] CLIA [id number] [address] [place] [address] [place] LACTATE DEHYDROGENASEon LDH [Catalytic activity/Vol] 218 U/L High 135 - 214 U/L [facility] LARGE GRANULAR LYMPH COUNTon 01-31-2025 ABSOLUTE LGL 0.15 k/uL Normal [facility] Comment on above: Order Comment: Speci men Type: BLOOD SPECIMEN Ordering Facility: [facility] Address: [address] [place] [address] Performed By: #### 5 7021-8, IPFR #### [facility] CLIA [id number] [address] [place] [address] [place] #### [id number], [id number], STFREV #### [facility] CLIA [id number] [address] [place] [address] [place] PERCENT LGL 7.0 % of Lymphocytes Normal [facility] Comment on above: Order Comment: Speci men Type: BLOOD SPECIMEN Ordering Facility: [facility] Address: [address] [place] [address] Performed By: #### 5 7021-8, IPFR #### [facility] CLIA [id number] [address] [place] [address] [place] #### [id number], [id number], STFREV #### [facility] CLIA [id number] [address] [place] [address] [place] LDH SerPl-cCncon 01-31-2025 LDH [Catalytic activity/Vol] 218 U/L High 135-214 [facility] Comment on above: Order Comment: Speci men Type: BLOOD SPECIMEN Ordering Facility: [facility] Address: [address] [place] [address] Performed By: #### S ERIMM #### [facility] CLIA [id number] [address] [place] [address] [place] LDH [Catalytic activity/Vol] on 01-31-2025 Interpretation and review of laboratory results Abnormal [facility] Lead (Bld) [Mass/Vol]on Lead (BldV) [Mass/Vol] <1.0 Normal <3.5 [facility] Comment on above: Order Comment: Speci men Type: BLOOD SPECIMEN Ordering Facility: [facility] Address: [address] [place] [address] Result Comment: The Centers for Disease Control and Prevention (CDC) recommends a blood lead reference value of less than 3.5 ???g/dL (Update of the Blood Lead Reference Value - [facility], 2020). The CDC's updated Recommended Actions Based on Blood Lead Level can be accessed at www.cdc.gov. Consult [facility] Department of Health and/or applicable regulatory agencies for specific guidance on testing follow up and patient management. This test was developed, and its performance characteristics determined by the [facility] Department of Pathology and Laboratory Medicine. It has not been cleared or approved by the FDA. The [facility] Department of Pathology and Laboratory Medicine is regulated under CLIA as qualified to perform high-complexity testing. This test is used for clinical purposes. It should not be regarded as investigational or for research. Performed By: #### S MARLENEIM #### [facility] CLIA [id number] [address] [place], [place] [address]K [address] [place] MISC SEND OUT TST 2024 MISC SCAN TEST RESULTS 1 Normal [facility] Comment on above: Order Comment: Speci men Type: BLOOD SPECIMEN Ordering Facility: [facility] Address: [address] [place] [address] Result Comment: Rese arch REFERRAL LAB 1 (DROP-DOWN) Normal [facility] Comment on above: Order Comment: Speci men Type: BLOOD SPECIMEN Ordering Facility: [facility] Address: [address] [place] [address] Result Comment: Rese arch TEST 1 Normal [facility] Comment on above: Order Comment: Speci men Type: BLOOD SPECIMEN Ordering Facility: [facility] Address: [address] [place] [address] Result Comment: Rese arch PATHOLOGIST INTERPRETATION C BC/DIFFon 01-31-2025 Base Draw Operator review Nba (Unsp spec) [Interp] Reviewed by Aysha Moseley M.D. Normal [facility] Comment on above: Order Comment: Speci men Type: BLOOD SPECIMEN Ordering Facility: [facility] Address: [address] [place] [address] Performed By: #### 5 7021-8, IPFR #### [facility] CLIA [id number] [address] [place] [address] [place] #### [id number], [id number], STFREV #### [facility] CLIA [id number] [address] [place] [address] [place] STAFF REVIEW, CBCDIF Elevated hemoglobin Normal [facility] Comment on above: Order Comment: Speci men Type: BLOOD SPECIMEN Ordering Facility: [facility] Address: [address] [place] [address] Performed By: #### 5 7021-8, IPFR #### [facility] CLIA [id number] [address] [place] [address] [place] #### [id number], [id number], STFREV #### [facility] CLIA [id number] [address] [place] [address] [place] PROTEIN ELECTROPHORESIS SERU M WITH EFFIE (P)on 01-31-2025 Albumin [Mass/Vol] 4.64 g/dL Normal 3.43-5.41 [facility] Comment on above: Order Comment: Speci men Type: BLOOD SPECIMEN Ordering Facility: [facility] Address: [address] [place] [address] Performed By: #### L [id number], IFESC #### [facility] CLIA [id number] [address] [place] [address] [place] Alpha 1 globulin Elph [Mass/Vol] 0.36 g/dL Normal 0.18-0.43 [facility] Comment on above: Order Comment: Speci men Type: BLOOD SPECIMEN Ordering Facility: [facility] Address: [address] [place] [address] Performed By: #### L [id number], IFESC #### [facility] CLIA [id number] [address] [place] [address] [place] Alpha 2 globulin Elph [Mass/Vol] 0.81 g/dL Normal 0.42-0.98 [facility] Comment on above: Order Comment: Speci men Type: BLOOD SPECIMEN Ordering Facility: [facility] Address: [address] [place] [address] Performed By: #### L [id number], IFESC #### [facility] CLIA [id number] [address] [place] [address] [place] Beta globulin Elph [Mass/Vol] 0.93 g/dL Normal 0.61-1.17 [facility] Comment on above: Order Comment: Speci men Type: BLOOD SPECIMEN Ordering Facility: [facility] Address: [address] [place] [address] Performed By: #### L [id number], IFESC #### [facility] CLIA [id number] [address] [place] [address] [place] COMMENT (SERUM PROT ELECTRO) A reflex test for Monoclonal Protein analysis (immunofixation) has been ordered. Normal [facility] Comment on above: Order Comment: Speci men Type: BLOOD SPECIMEN Ordering Facility: [facility] Address: [address] [place] [address] Performed By: #### L [id number], IFESC #### [facility] CLIA [id number] [address] [place] [address] [place] Gamma globulin Elph [Mass/Vol] 1.07 g/dL Normal 0.53-1.51 [facility] Comment on above: Order Comment: Speci men Type: BLOOD SPECIMEN Ordering Facility: [facility] Address: [address] [place] [address] Performed By: #### L [id number], IFESC #### [facility] CLIA [id number] [address] [place] [address] [place] INTERPRETATION COMMENT FOR PROTEIN ELECTROPHORESIS The atypical region is relatively poorly defined and may represent an unusual presentation of polyclonal immunoglobulins, but cannot rule out the presence of a low level M protein. If clinically indicated, monoclonal protein analysis and serum free light chain analysis are suggested to evaluate further for monoclonal gammopathy. Normal [facility] Comment on above: Order Comment: Gris juarez Type: BLOOD SPECIMEN Ordering Facility: [facility] Address: [address] [place] [address] Performed By: #### L [id number], IFESC #### [facility] CLIA [id number] [address] [place] [address] STATES [facility] M-PROTEIN LOCATION Normal [facility] Comment on above: Order Comment: Gris juarez Type: BLOOD SPECIMEN Ordering Facility: [facility] Address: [address] [place] [address] Result Comment: Not Applicable. Performed By: #### L [id number], IFESC #### [facility] CLIA [id number] [address] [place] [address] [place] Protein Fractions [Interp] An atypical region of restricted mobility is identified on protein electrophoresis. Abnormal No definitive M protein is identified on protein electrophore sis. [facility] Comment on above: Order Comment: Gris juarez Type: BLOOD SPECIMEN Ordering Facility: [facility] Address: [address] [place] [address] Performed By: #### L [id number], IFESC #### [facility] CLIA [id number] [address] [place] [address] [place] Protein.monoclonal Elph [Mass/Vol] 0.00 g/dL Normal <=0.00 [facility] Comment on above: Order Comment: Gris juarez Type: BLOOD SPECIMEN Ordering Facility: [facility] Address: [address] [place] [address] Performed By: #### L [id number], IFESC #### [facility] CLIA [id number] [address] [place] [address] [place] SPE STAFF REVIEW Reviewed by Dr. Sal Rai MD Normal [facility] Comment on above: Order Comment: Speci men Type: BLOOD SPECIMEN Ordering Facility: [facility] Address: [address] [place] [address] Performed By: #### L [id number], IFESC #### [facility] CLIA [id number] [address] [place] [address] [place] Prot SerPl-mCncon 01-31-2025 Protein [Mass/Vol] 7.8 g/dL Normal 6.3-8.0 [facility] Comment on above: Order Comment: Speci men Type: BLOOD SPECIMEN Ordering Facility: [facility] Address: [address] [place] [address] Performed By: #### S ERANNAM #### [facility] CLIA [id number] [address] [place] [address] [place] RBC MORPHOLOGYon 01-31-2025 Platelets Estimate (Bld) [#/Vol] Adequate Normal [facility] Comment on above: Order Comment: Speci men Type: BLOOD SPECIMEN Ordering Facility: [facility] Address: [address] [place] [address] Performed By: #### 5 7021-8, IPFR #### [facility] CLIA [id number] [address] [place] [address] [place] #### [id number], [id number], STFREV #### [facility] CLIA [id number] [address] [place] [address] [place] RBC morphology finding Nom (Bld) Reviewed: unremarkable Normal [facility] Comment on above: Order Comment: Speci men Type: BLOOD SPECIMEN Ordering Facility: [facility] Address: [address] [place] [address] Performed By: #### 5 7021-8, IPFR #### [facility] CLIA [id number] [address] [place] [address] [place] #### [id number], [id number], STFREV #### [facility] CLIA [id number] [address] [place] [address] [place] Zinc SerPl-mCncon 01-31-2025 Zinc [Mass/Vol] 77 ug/dL Normal 60-120 [facility] Comment on above: Order Comment: Gris juarez Type: BLOOD SPECIMEN Ordering Facility: [facility] Address: [address] [place] [address] Result Comment: This test was developed, and its performance characteristics determined by the [facility] Department of Pathology and Laboratory Medicine. It has not been cleared or approved by the FDA. The [facility] Department of Pathology and Laboratory Medicine is regulated under CLIA as qualified to perform high-complexity testing. This test is used for clinical purposes. It should not be regarded as investigational or for research. Performed By: #### S ERIMM #### [facility] CLIA [id number] [address] [place] [address] [place] OUTSIDE BONE MARROW SLIDE RE VIEWon 01-26-2025 AP DISCLAIMER Normal [facility] Comment on above: Order Comment: Gris juarez Type: BLOOD SPECIMEN Ordering Facility: [facility] Address: [address] [place] [address] Result Comment: Freddy powers Developed Test (LDT) Disclaimer: Performance characteristics of immunohistochemical, immunofluorescent, and chromogenic in-situ hybridization tests have been determined by the performing laboratory within [facility]'s [facility] Pathology and Laboratory Medicine Department ([facility], [facility], [facility], [facility], [facility], [facility], or [facility]) in a manner consistent with CLIA requirements. One or more of these tests may not have been cleared or approved by the FDA. [facility] is regulated under CLIA as qualified to perform high-complexity testing. These tests are used for clinical purposes. These should not be regarded as investigational or for research. Positive and negative controls stain appropriately. Performed By: #### S ERIMM #### [facility] CLIA [id number] [address] [place] [address] CASE REPORT Normal [facility] Comment on above: Order Comment: Gris juarez Type: BLOOD SPECIMEN Ordering Facility: [facility] Address: [address] [place] [address] Result Comment: Bone Marrow Pathology Report Case: [id number] Authorizing Provider: Serenity Saavedra MD, Collected: 01/26/2025 11:03 AM PhD Ordering Location: [facility] Received: 01/26/2025 11:02 AM [facility] Pathologist: Luis Enrique Andrea MD Specimen: Slide(s), 13 SLIDES [id number] / [id number] Performed By: #### S [facility] #### [facility] CLIA [id number] [address] [place] [address] DIAGNOSIS COMMENT Normal [facility] Comment on above: Order Comment: Gris juarez Type: BLOOD SPECIMEN Ordering Facility: [facility] Address: [address] [place] [address] Result Comment: This 59-year-old female presented to an outside institution with pancytopenia and a history of vitamin B12 deficiency. The patient underwent a bone marrow study which was submitted to the [facility] for review. The bone marrow is hypercellular [...] Correlation with the clinical findings is suggested. Performed By: #### S ERIMM #### [facility] CLIA [id number] [address] [place] [address] FINAL DIAGNOSIS Normal [facility] Comment on above: Order Comment: Speci men Type: BLOOD SPECIMEN Ordering Facility: [facility] Address: [address] [place] [address] Result Comment: Rena dela cruz [facility], [place], [place] [address]. [id number], 11/10/2024: Bone marrow, aspirate, core biopsy, and clot section: - Hypercellular bone marrow with prominent eythroid hyperplasia and occasional atypical erythroid precursors - Adequate megakaryocytes with unremarkable morphology - Increased iron stores without ring sideroblasts - See comment Peripheral blood, smear: - Pancytopenia with macrocytic anemia and thrombocytopenia - Neutropenia at 1015 EDT Performed By: #### S ERIMM #### [facility] CLIA [id number] [address] [place] [address] FINAL PERFORMING LAB Normal [facility] Comment on above: Order Comment: Gris juarez Type: BLOOD SPECIMEN Ordering Facility: [facility] Address: [address] [place] [address] Result Comment: Diag nostic interpretation performed at: [facility], [address] [place] [address] CLIA# [id number] Wildlife Management Professor: León Eubanks MD Performed By: #### S ERIMM #### [facility] CLIA [id number] [address] [place] [address] OF [place] MICROSCOPIC DESCRIPTION Normal [facility] Comment on above: Order Comment: Gris juarez Type: BLOOD SPECIMEN Ordering Facility: [facility] Address: [address] [place] [address] Result Comment: ZAYDA PHERAL BLOOD: CBC (11/10/2024) Diff: By Report WBC 3.47 k/uL Neutrophils % 33.7 Hemoglobin 8.6 g/dL Lymphocytes % 53.9 MCV 107.4 fL Monocytes % 8.9 RDW-CV N/A % Eosinophils % 0.6 Platelet Count 24 k/uL Basophils % 0.3 Immature Granulocytes % Morphology/Interpretation: Macrocytic anemia with occasional ovalocytes and teardrop cells. Leukopenia with neutropenia. Thrombocytopenia. BONE MARROW ASPIRATE: Result Normal Range 0 % Blasts 0-2 1 % Promyelocytes 1-5 21 % Myelos/Metas/Bands/Segs 32-72 3 % Eosinophils 1-6 0 % [...] involving DNMT3A with a VAF of 3%. Performed By: #### S GEMA #### [facility] CLIA [id number] [address] [place] [address] [place] CBC WITH AUTO DIFFERENTIALon 01-23-2025 Basophils (Bld) [#/Vol] 0.06 10*3/uL Normal 0.00-0.20 [facility] Comment on above: Performed By: #### L [id number] #### [facility] (BEAKER) [address] [place] [address] Basophils/100 WBC (Bld) 0.7 % Normal 0.0-1.0 [facility] Comment on above: Performed By: #### L [id number] #### [facility] [address] [place] [address] Eosinophils (Bld) [#/Vol] 0.13 10*3/uL Normal 0.00-0.50 [facility] Comment on above: Performed By: #### L [id number] #### [facility] ([facility]) [address] [place] [address] Eosinophils/100 WBC (Bld) 1.6 % Normal 0.0-6.0 [facility] Comment on above: Performed By: #### L [id number] #### [facility] ([facility]) [address] [place] [address] Erythrocyte distribution width (RBC) [Ratio] 12.9 % Normal 11.5-15.0 [facility] Comment on above: Performed By: #### L [id number] #### [facility] ([facility] [address] [place] [address] ERYTHROCYTE MEAN CORPUSCULAR HEMOGLOBIN CONCENTRATION (G/DL) BY AUTOMATED 32.2 g/dL Normal 32.0-35.0 [facility] Comment on above: Performed By: #### L [id number] #### [facility] ([facility] [address] [place] [address] Hematocrit (Bld) [Volume fraction] 49.7 % High 36.0-45.0 [facility] Comment on above: Performed By: #### L [id number] #### [facility] (BEAKER) [address] [place] [address] Hemoglobin (Bld) [Mass/Vol] 16.0 g/dL High 12.0-15.0 [facility] Comment on above: Performed By: #### L [id number] #### [facility] (BEAKER) [address] [place] [address] Immature granulocytes (Bld) [#/Vol] 0.04 10*3/uL Normal 0.00-0.20 [facility] Comment on above: Performed By: #### L [id number] #### [facility] (BE[facility]ER) [address] [address] Immature granulocytes/100 WBC (Bld) 0.5 % Normal 0.0-1.0 [facility] Comment on above: Performed By: #### L [id number] #### [facility] ([facility] [address] [place] [address] Lymphocytes (Bld) [#/Vol] 1.84 10*3/uL Normal 1.20-4.00 [facility] Comment on above: Performed By: #### L [id number] #### [facility] (BEAKER) [address] [place] [address] Lymphocytes/100 WBC (Bld) 22.3 % Normal 20.0-45.0 [facility] Comment on above: Performed By: #### L [id number] #### [facility] ([facility]) [address] [address] MCH (RBC) [Entitic mass] 27.5 pg Normal 27.0-33.0 [facility] Comment on above: Performed By: #### L [id number] #### [facility] (BEAKER) [address] [place] [address] MCV (RBC) [Entitic vol] 85.4 fL Normal 82.0-98.0 [facility] Comment on above: Performed By: #### L [id number] #### [facility] (BEAKER) [address] [place] [address] Monocytes (Bld) [#/Vol] 0.61 10*3/uL Normal 0.10-1.00 [facility] Comment on above: Performed By: #### L [id number] #### [facility] ([facility]) [address] [place] [address] Monocytes/100 WBC (Bld) 7.4 % Normal 5.0-12.0 [facility] Comment on above: Performed By: #### L [id number] #### [facility] ([facility]) [address] [place] [address] Neutrophils (Bld) [#/Vol] 5.56 10*3/uL Normal 1.60-7.60 [facility] Comment on above: Performed By: #### L [id number] #### [facility] ([facility]) [address] [place] [address] Neutrophils/100 WBC (Bld) 67.5 % Normal 40.0-72.0 [facility] Comment on above: Performed By: #### L [id number] #### [facility] ([facility]) [address] [place] [address] NRBC (PER 100 WBCS) BY AUTOMATED COUNT 0.0 % Normal 0 [facility] Comment on above: Performed By: #### L [id number] #### [facility] ([facility]) [address] [place] [address] PLATELETS (10*3/UL) IN BLOOD AUTOMATED COUNT 223 10*3/uL Normal 150-400 [facility] Comment on above: Performed By: #### L [id number] #### [facility] ([facility]) [address] [place] [address] RBC (Bld) [#/Vol] 5.82 10*6/uL High 3.80-5.00 [facility] Comment on above: Performed By: #### L [id number] #### [facility] ([facility] [address] [place] [address] WBC (Bld) [#/Vol] 8.24 10*3/uL Normal 4.00-10.60 [facility] Comment on above: Performed By: #### L [id number] #### [facility] ([facility]) [address] [place] [address] COMPREHENSIVE METABOLIC PANE Dayo 01-23-2025 Albumin [Mass/Vol] 4.2 g/dL Normal 3.5-5.7 [facility] Comment on above: Performed By: #### L [id number] #### [facility] ([facility]) [address] [place] [address] ALP [Catalytic activity/Vol] 248 U/L High 34-104 [facility] Comment on above: Performed By: #### L [id number] #### [facility] ([facility]) [address] [place] [address] ALT [Catalytic activity/Vol] 75 U/L High 7-52 [facility] Comment on above: Performed By: #### L [id number] #### [facility] ([facility]) [address] [place] [address] Anion gap [Moles/Vol] 13 mmol/L Normal 7-20 [facility] Comment on above: Performed By: #### L [id number] #### [facility] ([facility]) [address] [place] [address] AST [Catalytic activity/Vol] 36 U/L Normal 13-39 [facility] Comment on above: Performed By: #### L [id number] #### [facility] ([facility]) [address] [place] [address] Bilirubin [Mass/Vol] 0.3 mg/dL Normal 0.3-1.0 [facility] Comment on above: Performed By: #### L [id number] #### [facility] ([facility]) [address] [place] [address] Calcium [Mass/Vol] 9.5 mg/dL Normal 8.6-10.3 [facility] Comment on above: Performed By: #### L [id number] #### [facility] ([facility] [address] [place] [address] Chloride [Moles/Vol] 101 mmol/L Normal 98-107 [facility] Comment on above: Performed By: #### L [id number] #### [facility] ([facility]) [address] [place] [address] CO2 [Moles/Vol] 26 mmol/L Normal 21-31 [facility] Comment on above: Performed By: #### L [id number] #### [facility] ([facility]) [address] [place] [address] Creatinine [Mass/Vol] 0.62 mg/dL Normal 0.60-1.20 [facility] Comment on above: Performed By: #### L [id number] #### [facility] ([facility]) [address] [place] [address] GLOMERULAR FILTRATION RATE ML/MIN/1.73 SQ M.PREDICTED 101.3 mL/min/1.73m*2 Normal >60.0 [facility] Comment on above: Result Comment: The [facility]???s estimated glomerular filtration rate (eGFR) will no [...] one group of individuals. Performed By: #### L [id number] #### [facility] ([facility]) [address] [place] [address] Glucose [Mass/Vol] 204 mg/dL High 70-100 [facility] Comment on above: Performed By: #### L [id number] #### [facility] ([facility]) [address] [place] [address] Potassium [Moles/Vol] 4.5 mmol/L Normal 3.5-5.1 [facility] Comment on above: Performed By: #### L [id number] #### [facility] ([facility]) [address] [place] [address] Protein [Mass/Vol] 7.2 g/dL Normal 6.0-8.3 [facility] Comment on above: Performed By: #### L [id number] #### [facility] ([facility]) [address] [place] [address] Sodium [Moles/Vol] 135 mmol/L Low 136-145 [facility] Comment on above: Performed By: #### L [id number] #### [facility] ([facility]) [address] [place] [address] Urea nitrogen [Mass/Vol] 10 mg/dL Normal 7-25 [facility] Comment on above: Performed By: #### L [id number] #### [facility] ([facility]) [address] [place] [address] UREA NITROGEN/CREATININE (MASS RATIO) IN SER/PLAS 16.1 Normal [facility] Comment on above: Performed By: #### L [id number] #### [facility] ([facility]) [address] [place] [address] Labon 01-23-2025 Lab [id number] Elaine Thomas 1965 F Date Provider Department [place] 01/23/2025 2243-[facility] RESOURCE DCC DRAW DCC Family History Problem Relation Age of Onset COPD Mother Other Mother Thyroid disease Mother Heart failure Mother Other Mother COPD Father Thyroid disease Father Prostate cancer Father Brain cancer Brother Family Status - Relation Status Age at Mother Father Brother Normal [facility] VITAMIN B12on 01-23-2025 Cobalamin (Vitamin B12) [Mass/Vol] 488 pg/mL Normal 180-914 [facility] Comment on above: Result Comment: REFE RENCE RANGES: 180-914 pg/mL Normal 145-179 pg/mL Indeterminate <145 pg/mL Deficient Performed By: #### L [id number] #### [facility] [address] [place] [address] CBC WITH AUTO DIFFERENTIALon 01-19-2025 Basophils (Bld) [#/Vol] 0.07 10*3/uL Normal 0.00-0.20 [facility] Comment on above: Performed By: #### L [id number] #### [facility] ([facility]) [address] [place] [address] Basophils/100 WBC (Bld) 1.0 % Normal 0.0-1.0 [facility] Comment on above: Performed By: #### L [id number] #### [facility] ([facility]) [address] [place] [address] Eosinophils (Bld) [#/Vol] 0.15 10*3/uL Normal 0.00-0.50 [facility] Comment on above: Performed By: #### L [id number] #### [facility] ([facility]) [address] [place] [address] Eosinophils/100 WBC (Bld) 2.1 % Normal 0.0-6.0 [facility] Comment on above: Performed By: #### L [id number] #### [facility] ([facility]) [address] [place] [address] Erythrocyte distribution width (RBC) [Ratio] 12.7 % Normal 11.5-15.0 [facility] Comment on above: Performed By: #### L [id number] #### [facility] ([facility]) [address] [place] [address] ERYTHROCYTE MEAN CORPUSCULAR HEMOGLOBIN CONCENTRATION (G/DL) BY AUTOMATED 32.3 g/dL Normal 32.0-35.0 [facility] Comment on above: Performed By: #### L [id number] #### [facility] ([facility]) [address] [place] [address] Hematocrit (Bld) [Volume fraction] 49.3 % High 36.0-45.0 [facility] Comment on above: Performed By: #### L [id number] #### [facility] ([facility]) [address] [place] [address] Hemoglobin (Bld) [Mass/Vol] 15.9 g/dL High 12.0-15.0 [facility] Comment on above: Performed By: #### L [id number] #### [facility] (BEAKER) [address] [place] [address] Immature granulocytes (Bld) [#/Vol] 0.04 10*3/uL Normal 0.00-0.20 [facility] Comment on above: Performed By: #### L [id number] #### [facility] ([facility]) [address] [place] [address] Immature granulocytes/100 WBC (Bld) 0.6 % Normal 0.0-1.0 [facility] Comment on above: Performed By: #### L [id number] #### [facility] ([facility]) [address] [place] [address] Lymphocytes (Bld) [#/Vol] 1.57 10*3/uL Normal 1.20-4.00 [facility] Comment on above: Performed By: #### L [id number] #### [facility] [address] [place] [address] Lymphocytes/100 WBC (Bld) 21.7 % Normal 20.0-45.0 [facility] Comment on above: Performed By: #### L [id number] #### [facility] (BEAKER) [address] [place] [address] MCH (RBC) [Entitic mass] 27.4 pg Normal 27.0-33.0 [facility] Comment on above: Performed By: #### L [id number] #### [facility] (BEAKER) [address] [place] [address] MCV (RBC) [Entitic vol] 85.0 fL Normal 82.0-98.0 [facility] Comment on above: Performed By: #### L [id number] #### [facility] (BEAKER) [address] [place] [address] Monocytes (Bld) [#/Vol] 0.57 10*3/uL Normal 0.10-1.00 [facility] Comment on above: Performed By: #### L [id number] #### [facility] ([facility]) [address] [place] [address] Monocytes/100 WBC (Bld) 7.9 % Normal 5.0-12.0 [facility] Comment on above: Performed By: #### L [id number] #### [facility] ([facility]) [address] [place] [address] Neutrophils (Bld) [#/Vol] 4.84 10*3/uL Normal 1.60-7.60 [facility] Comment on above: Performed By: #### L [id number] #### [facility] ([facility]) [address] [place] [address] Neutrophils/100 WBC (Bld) 66.7 % Normal 40.0-72.0 [facility] Comment on above: Performed By: #### L [id number] #### [facility] ([facility]) [address] [place] [address] NRBC (PER 100 WBCS) BY AUTOMATED COUNT 0.0 % Normal 0 [facility] Comment on above: Performed By: #### L [id number] #### [facility] ([facility]) [address] [place] [address] PLATELETS (10*3/UL) IN BLOOD AUTOMATED COUNT 218 10*3/uL Normal 150-400 [facility] Comment on above: Performed By: #### L [id number] #### [facility] ([facility]) [address] [place] [address] RBC (Bld) [#/Vol] 5.80 10*6/uL High 3.80-5.00 [facility] Comment on above: Performed By: #### L [id number] #### [facility] ([facility]) [address] [place] [address] WBC (Bld) [#/Vol] 7.24 10*3/uL Normal 4.00-10.60 [facility] Comment on above: Performed By: #### L [id number] #### [facility] ([facility]) [address] [place] [address] COMPREHENSIVE METABOLIC PANE Dayo 01-19-2025 Albumin [Mass/Vol] 4.1 g/dL Normal 3.5-5.7 [facility] Comment on above: Performed By: #### L [id number] #### [facility] ([facility]) [address] [place] [address] ALP [Catalytic activity/Vol] 254 U/L High 34-104 [facility] Comment on above: Performed By: #### L [id number] #### [facility] ([facility]) [address] [place] [address] ALT [Catalytic activity/Vol] 96 U/L High 7-52 [facility] Comment on above: Performed By: #### L [id number] #### [facility] ([facility]) [address] [place] [address] Anion gap [Moles/Vol] 11 mmol/L Normal 7-20 [facility] Comment on above: Performed By: #### L [id number] #### [facility] ([facility]) [address] [place] [address] AST [Catalytic activity/Vol] 50 U/L High 13-39 [facility] Comment on above: Performed By: #### L [id number] #### [facility] ([facility]) [address] [place] [address] Bilirubin [Mass/Vol] 0.3 mg/dL Normal 0.3-1.0 [facility] Comment on above: Performed By: #### L [id number] #### [facility] ([facility]) [address] [place] [address] Calcium [Mass/Vol] 8.8 mg/dL Normal 8.6-10.3 [facility] Comment on above: Performed By: #### L [id number] #### [facility] [address] [place] [address] Chloride [Moles/Vol] 100 mmol/L Normal 98-107 [facility] Comment on above: Performed By: #### L [id number] #### [facility] ([facility]) [address] [place] [address] CO2 [Moles/Vol] 27 mmol/L Normal 21-31 [facility] Comment on above: Performed By: #### L [id number] #### [facility] ([facility]) [address] [place] [address] Creatinine [Mass/Vol] 0.57 mg/dL Low 0.60-1.20 [facility] Comment on above: Performed By: #### L [id number] #### [facility] ([facility]) [address] [place] [address] GLOMERULAR FILTRATION RATE ML/MIN/1.73 SQ M.PREDICTED 103.3 mL/min/1.73m*2 Normal >60.0 [facility] Comment on above: Result Comment: [facility]???s estimated glomerular filtration rate (eGFR) will no [...] one group of individuals. Performed By: #### L [id number] #### [facility] ([facility]) [address] [place] [address] Glucose [Mass/Vol] 173 mg/dL High 70-100 [facility] Comment on above: Performed By: #### L [id number] #### [facility] ([facility]) [address] [place] [address] Potassium [Moles/Vol] 4.2 mmol/L Normal 3.5-5.1 [facility] Comment on above: Performed By: #### L [id number] #### [facility] ([facility]) [address] [place] [address] Protein [Mass/Vol] 7.2 g/dL Normal 6.0-8.3 [facility] Comment on above: Performed By: #### L [id number] #### [facility] ([facility]) [address] [place] [address] Sodium [Moles/Vol] 134 mmol/L Low 136-145 [facility] Comment on above: Performed By: #### L [id number] #### [facility] ([facility]) [address] [place] [address] Urea nitrogen [Mass/Vol] 12 mg/dL Normal 7-25 [facility] Comment on above: Performed By: #### L [id number] #### [facility] ([facility]) [address] [place] [address] UREA NITROGEN/CREATININE (MASS RATIO) IN SER/PLAS 21.1 Normal [facility] Comment on above: Performed By: #### L [id number] #### [facility] ([facility]) [address] [place] [address] Labon 01-19-2025 Lab [id number] Elaine Thomas 1965 F Date Provider Department [place] 01/19/2025 2243-[facility] RESOURCE [facility] DRAW [facility] Family History Problem Relation Age of Onset COPD Mother Other Mother Thyroid disease Mother Heart failure Mother Other Mother COPD Father Thyroid disease Father Prostate cancer Father Brain cancer Brother Family Status - Relation Status Age at Mother Father Brother Normal [facility] Abstracton 01-04-2025 Abstract [id number] Elaine Thomas 1965 F Date Provider Department [place] 01/04/2025 [id number] THURMAN INF [facility] Family History Problem Relation Age of Onset COPD Mother Other Mother Thyroid disease Mother Heart failure Mother Other Mother COPD Father Thyroid disease Father Prostate cancer Father Brain cancer Brother Family Status - Relation Status Age at Mother Father Brother Normal [facility] Office Visiton 12-27-2024 Follow-up visit [id number] Elaine Thomas angie 1965 F Date Provider Department Center 12/27/2024 [id number] HERNADEZ INF [facility] Family History Problem Relation Age of Onset COPD Mother Other Mother Thyroid disease Mother Heart failure Mother Other Mother COPD Father Thyroid disease Father Prostate cancer Father Brain cancer Brother Family Status - Relation Status Age at Mother Father Brother Level of Service:54040 DE OFFICE/OUTPATIENT NEW MODERATE MDM 45 MINUTES (GC) Reason for Visit and Comments: HSV Infection [Other] Normal [facility] Reminderson 12-25-2024 Reminders Reminders From: Tamiko Celis MA To: Sowmya Estes; Ting Bueno; Sent: 10/24/2024 12:21:39 EDT Show up: 11/26/2024 12:21:00 EDT Subject: Ambulatory Reminder Due Date/Time: 01/15/2025 12:21:00 EDT Reminder/Recall EGD 12/2024 Addendum by Tamiko Celis MA on October 24, 2024 12:20:36 EDT order placed, reminder in chart From: Parvin LAND, Roseline Chase To: Tamiko Celis MA; Sent: 10/24/2024 07:58:11 EDT Subject: General Message Caller Name: ANDREIA THOMAS; Caller Number: Main , M repeat EGD after 3 months with mapping bx Patient has an appointment on 12/25/24. I called patient because she cancelled her appointment for 12/25/24. She stated she was unaware she needed a repeat. I sent to [employer] voicemail to call patient back to explain this. made Patient aware, they are willing to proceed with EGD patient is scheduled for 01/15/25 Normal [facility] CBC WITH AUTO DIFFERENTIALon 11-23-2024 Basophils (Bld) [#/Vol] 0.11 10*3/uL Normal 0.00-0.20 [facility] Comment on above: Order Comment: Pleas e fax to primary care physician and [facility] Hematology/oncology Clinic. Performed By: #### L [id number] #### [facility] ([facility]) [address] [place] [address] Basophils/100 WBC (Bld) 1.3 % High 0.0-1.0 [facility] Comment on above: Order Comment: Pleas e fax to primary care physician and [facility] Hematology/oncology Clinic. Performed By: #### L [id number] #### [facility] ([facility]) [address] [place] [address] Eosinophils (Bld) [#/Vol] 0.09 10*3/uL Normal 0.00-0.50 [facility] Comment on above: Order Comment: Pleas e fax to primary care physician and [facility] Hematology/oncology Clinic. Performed By: #### L [id number] #### [facility] ([facility]) [address] [place] [address] Eosinophils/100 WBC (Bld) 1.0 % Normal 0.0-6.0 [facility] Comment on above: Order Comment: Pleas e fax to primary care physician and [facility] Hematology/oncology Clinic. Performed By: #### L [id number] #### [facility] ([facility]) [address] [place] [address] Erythrocyte distribution width (RBC) [Ratio] 16.1 % High 11.5-15.0 [facility] Comment on above: Order Comment: Pleas e fax to primary care physician and [facility] Hematology/oncology Clinic. Performed By: #### L [id number] #### [facility] ([facility]) [address] [place] [address] ERYTHROCYTE MEAN CORPUSCULAR HEMOGLOBIN CONCENTRATION (G/DL) BY AUTOMATED 31.1 g/dL Low 32.0-35.0 [facility] Comment on above: Order Comment: Pleas e fax to primary care physician and [facility] Hematology/oncology Clinic. Performed By: #### L [id number] #### [facility] ([facility]) [address] [place] [address] Hematocrit (Bld) [Volume fraction] 39.5 % Normal 36.0-45.0 [facility] Comment on above: Order Comment: Pleas e fax to primary care physician and [facility] Hematology/oncology Clinic. Performed By: #### L [id number] #### [facility] ([facility]) [address] [place] [address] Hemoglobin (Bld) [Mass/Vol] 12.3 g/dL Normal 12.0-15.0 [facility] Comment on above: Order Comment: Pleas e fax to primary care physician and [facility] Hematology/oncology Clinic. Performed By: #### L [id number] #### [facility] [address] [place] [address] Immature granulocytes (Bld) [#/Vol] 0.05 10*3/uL Normal 0.00-0.20 [facility] Comment on above: Order Comment: Pleas e fax to primary care physician and [facility] Hematology/oncology Clinic. Performed By: #### L [id number] #### [facility] ([facility]) [address] [place] [address] Immature granulocytes/100 WBC (Bld) 0.6 % Normal 0.0-1.0 [facility] Comment on above: Order Comment: Pleas e fax to primary care physician and [facility] Hematology/oncology Clinic. Performed By: #### L [id number] #### [facility] ([facility]) [address] [place] [address] Lymphocytes (Bld) [#/Vol] 1.04 10*3/uL Low 1.20-4.00 [facility] Comment on above: Order Comment: Pleas e fax to primary care physician and [facility] Hematology/oncology Clinic. Performed By: #### L [id number] #### [facility] ([facility]) [address] [place] [address] Lymphocytes/100 WBC (Bld) 12.0 % Low 20.0-45.0 [facility] Comment on above: Order Comment: Pleas e fax to primary care physician and [facility] Hematology/oncology Clinic. Performed By: #### L [id number] #### [facility] ([facility]) [address] [place] [address] MCH (RBC) [Entitic mass] 30.5 pg Normal 27.0-33.0 [facility] Comment on above: Order Comment: Pleas e fax to primary care physician and [facility] Hematology/oncology Clinic. Performed By: #### L [id number] #### [facility] ([facility]) [address] [place] [address] MCV (RBC) [Entitic vol] 98.0 fL Normal 82.0-98.0 [facility] Comment on above: Order Comment: Pleas e fax to primary care physician and [facility] Hematology/oncology Clinic. Performed By: #### L [id number] #### [facility] ([facility]) [address] [place] [address] Monocytes (Bld) [#/Vol] 0.51 10*3/uL Normal 0.10-1.00 [facility] Comment on above: Order Comment: Pleas e fax to primary care physician and [facility] Hematology/oncology Clinic. Performed By: #### L [id number] #### [facility] ([facility]) [address] [place] [address] Monocytes/100 WBC (Bld) 5.9 % Normal 5.0-12.0 [facility] Comment on above: Order Comment: Pleas e fax to primary care physician and [facility] Hematology/oncology Clinic. Performed By: #### L [id number] #### [facility] ([facility]) [address] [place] [address] Neutrophils (Bld) [#/Vol] 6.86 10*3/uL Normal 1.60-7.60 [facility] Comment on above: Order Comment: Pleas e fax to primary care physician and [facility] Hematology/oncology Clinic. Performed By: #### L [id number] #### [facility] ([facility]) [address] [place] [address] Neutrophils/100 WBC (Bld) 79.2 % High 40.0-72.0 [facility] Comment on above: Order Comment: Pleas e fax to primary care physician and [facility] Hematology/oncology Clinic. Performed By: #### L [id number] #### [facility] ([facility]) [address] [place] [address] NRBC (PER 100 WBCS) BY AUTOMATED COUNT 0.0 % Normal 0 [facility] Comment on above: Order Comment: Pleas e fax to primary care physician and [facility] Hematology/oncology Clinic. Performed By: #### L [id number] #### [facility] ([facility]) [address] [place] [address] PLATELETS (10*3/UL) IN BLOOD AUTOMATED COUNT 419 10*3/uL High 150-400 [facility] Comment on above: Order Comment: Pleas e fax to primary care physician and [facility] Hematology/oncology Clinic. Performed By: #### L [id number] #### [facility] ([facility]) [address] [place] [address] RBC (Bld) [#/Vol] 4.03 10*6/uL Normal 3.80-5.00 [facility] Comment on above: Order Comment: Pleas e fax to primary care physician and [facility] Hematology/oncology Clinic. Performed By: #### L [id number] #### [facility] ([facility]) [address] [place] [address] WBC (Bld) [#/Vol] 8.66 10*3/uL Normal 4.00-10.60 [facility] Comment on above: Order Comment: Pleas e fax to primary care physician and [facility] Hematology/oncology Clinic. Performed By: #### L [id number] #### [facility] ([facility]) [address] [place] [address] COMPREHENSIVE METABOLIC PANE Dayo 11-23-2024 Albumin [Mass/Vol] 3.8 g/dL Normal 3.5-5.7 [facility] Comment on above: Performed By: #### L [id number] #### [facility] ([facility]) [address] [place] [address] ALP [Catalytic activity/Vol] 180 U/L High 34-104 [facility] Comment on above: Performed By: #### L [id number] #### [facility] ([facility]) [address] [place] [address] ALT [Catalytic activity/Vol] 12 U/L Normal 7-52 [facility] Comment on above: Performed By: #### L [id number] #### [facility] ([facility]) [address] [place] [address] Anion gap [Moles/Vol] 12 mmol/L Normal 7-20 [facility] Comment on above: Performed By: #### L [id number] #### [facility] ([facility]) [address] [place] [address] AST [Catalytic activity/Vol] 12 U/L Low 13-39 [facility] Comment on above: Performed By: #### L [id number] #### [facility] ([facility]) [address] [place] [address] Bilirubin [Mass/Vol] 0.6 mg/dL Normal 0.3-1.0 [facility] Comment on above: Performed By: #### L [id number] #### [facility] ([facility]) [address] [place] [address] Calcium [Mass/Vol] 8.9 mg/dL Normal 8.6-10.3 [facility] Comment on above: Performed By: #### L [id number] #### [facility] ([facility]) [address] [place] [address] Chloride [Moles/Vol] 105 mmol/L Normal 98-107 [facility] Comment on above: Performed By: #### L [id number] #### [facility] ([facility]) [address] [place] [address] CO2 [Moles/Vol] 27 mmol/L Normal 21-31 [facility] Comment on above: Performed By: #### L [id number] #### [facility] ([facility]) [address] [place] [address] Creatinine [Mass/Vol] 0.52 mg/dL Low 0.60-1.20 [facility] Comment on above: Performed By: #### L [id number] #### [facility] ([facility]) [address] [place] [address] GLOMERULAR FILTRATION RATE ML/MIN/1.73 SQ M.PREDICTED 105.6 mL/min/1.73m*2 Normal >60.0 [facility] Comment on above: Result Comment: [facility]???s estimated glomerular filtration rate (eGFR) will no [...] one group of individuals. Performed By: #### L [id number] #### [facility] ([facility]) [address] [place] [address] Glucose [Mass/Vol] 118 mg/dL High 70-100 [facility] Comment on above: Performed By: #### L [id number] #### [facility] ([facility]) [address] [place] [address] Potassium [Moles/Vol] 3.8 mmol/L Normal 3.5-5.1 [facility] Comment on above: Performed By: #### L [id number] #### [facility] ([facility]) [address] [facility] [place] [address] Protein [Mass/Vol] 6.7 g/dL Normal 6.0-8.3 [facility] Comment on above: Performed By: #### L [id number] #### [facility] ([facility]) [address] [place] [address] Sodium [Moles/Vol] 140 mmol/L Normal 136-145 [facility] Comment on above: Performed By: #### L [id number] #### [facility] ([facility]) [address] [place] [address] Urea nitrogen [Mass/Vol] 8 mg/dL Normal 7-25 [facility] Comment on above: Performed By: #### L [id number] #### [facility] ([facility]) [address] [place] [address] UREA NITROGEN/CREATININE (MASS RATIO) IN SER/PLAS 15.4 Normal [facility] Comment on above: Performed By: #### L [id number] #### [facility] ([facility]) [address] [place] [address] LACTATE DEHYDROGENASEon 10-27 LACTATE DEHYDROGENASE (U/L) IN SER/PLAS BY LAC->PYR RXN 273 U/L High 140-271 [facility] Comment on above: Performed By: #### L [id number] #### [facility] ([facility]) [address] [place] [address] Labon 11-23-2024 Lab [id number] Elaine Thomas 1965 F Date Provider Department [place] 11/23/2024 2243-[facility] LAB RESOURCE [facility] DRAW [facility] No family history on file Normal [facility] 30on 11-14-2024 30 The patient is Moder ately Stable - Low risk of patient condition declining or worsening The patient's goals for the shift include sleep The clinical goals for the shift include vss, improved labs , free from falls, comfort, sleep Normal [facility] 30 The patient is Moder ately Stable - Low risk of patient condition declining or worsening The patient's goals for the shift include sleep The clinical goals for the shift include VSS, improved labs, free from falls, comfort, sleep Normal [facility] BASIC METABOLIC PANELon 05-2 0-2024 Anion gap [Moles/Vol] 6 mmol/L Low 7-20 [facility] Comment on above: Performed By: #### L [id number] ####[facility] ([facility] [place] [address] Calcium [Mass/Vol] 8.3 mg/dL Low 8.6-10.3 [facility] Comment on above: Performed By: #### L [id number] ####[facility] ([facility])[address] [place] [address] Chloride [Moles/Vol] 111 mmol/L High 98-107 [facility] Comment on above: Performed By: #### L [id number] ####[facility] ([facility] [place] [address] CO2 [Moles/Vol] 29 mmol/L Normal 21-31 [facility] Comment on above: Performed By: #### L [id number] ####[facility] ([facility])[address] [place] [address] Creatinine [Mass/Vol] 0.58 mg/dL Low 0.60-1.20 [facility] Comment on above: Performed By: #### L [id number] ####[facility] ([facility])[address] [place] [address] GLOMERULAR FILTRATION RATE ML/MIN/1.73 SQ M.PREDICTED 102.9 mL/min/1.73m*2 Normal >60.0 [facility] Comment on above: Result Comment: [facility]???s estimated glomerular filtration rate (eGFR) will no [...] one group of individuals. Performed By: #### L [id number] ####[facility] ([facility])[address] [place] [address] Glucose [Mass/Vol] 122 mg/dL High 70-100 [facility] Comment on above: Performed By: #### L [id number] ####[facility] ([facility])[address] [place] [address] Potassium [Moles/Vol] 3.8 mmol/L Normal 3.5-5.1 [facility] Comment on above: Performed By: #### L [id number] ####[facility] ([facility])[address] [place] [address] Sodium [Moles/Vol] 142 mmol/L Normal 136-145 [facility] Comment on above: Performed By: #### L [id number] ####[facility] ([facility])[address] [place] [address] Urea nitrogen [Mass/Vol] 11 mg/dL Normal 7-25 [facility] Comment on above: Performed By: #### L [id number] ####[facility] ([facility])[address] [place] [address] UREA NITROGEN/CREATININE (MASS RATIO) IN SER/PLAS 19.0 Normal [facility] Comment on above: Performed By: #### L [id number] ####[facility] ([facility])[address] [place] [address] CBC WITH AUTO DIFFERENTIALon 11-14-2024 Erythrocyte distribution width (RBC) [Ratio] 20.9 % High 11.5-15.0 [facility] Comment on above: Performed By: #### L [id number] #### [facility] ([facility]) [address] [place] [address] ERYTHROCYTE MEAN CORPUSCULAR HEMOGLOBIN CONCENTRATION (G/DL) BY AUTOMATED 30.7 g/dL Low 32.0-35.0 [facility] Comment on above: Performed By: #### L [id number] #### [facility] ([facility]) [address] [place] [address] Hematocrit (Bld) [Volume fraction] 27.7 % Low 36.0-45.0 [facility] Comment on above: Performed By: #### L [id number] #### [facility] ([facility]) [address] [place] [address] Hemoglobin (Bld) [Mass/Vol] 8.5 g/dL Low 12.0-15.0 [facility] Comment on above: Performed By: #### L [id number] #### [facility] ([facility]) [address] [place] [address] IMMATURE PLATELET FRACTION % 5.0 % Normal 0.8-6.3 [facility] Comment on above: Performed By: #### L [id number] #### [facility] ([facility]) [address] [place] [address] MCH (RBC) [Entitic mass] 32.8 pg Normal 27.0-33.0 [facility] Comment on above: Performed By: #### L [id number] #### [facility] ([facility]) [address] [place] [address] MCV (RBC) [Entitic vol] 106.9 fL High 82.0-98.0 [facility] Comment on above: Performed By: #### L [id number] #### [facility] ([facility]) [address] [place] [address] NRBC (PER 100 WBCS) BY AUTOMATED COUNT 1.8 % High 0 [facility] Comment on above: Performed By: #### L [id number] #### [facility] ([facility]) [address] [place] [address] PLATELETS (10*3/UL) IN BLOOD AUTOMATED COUNT 113 10*3/uL Low 150-400 [facility] Comment on above: Performed By: #### L [id number] #### [facility] ([facility]) [address] [place] [address] RBC (Bld) [#/Vol] 2.59 10*6/uL Low 3.80-5.00 [facility] Comment on above: Performed By: #### L [id number] #### [facility] ([facility]) [address] [place] [address] WBC (Bld) [#/Vol] 3.30 10*3/uL Low 4.00-10.60 [facility] Comment on above: Performed By: #### L [id number] #### [facility] ([facility]) [address] [place] [address] HIV COMBO 4Gon 11-14-2024 HIV COMBO 4G Negative Normal Negative [facility] Comment on above: Result Comment: Rece ived comment: User comments: Slide comments: Performed By: #### L [id number] #### [facility] ([facility]) [address] [place] [address] MANUAL DIFFERENTIALon 2024 ANISOCYTOSIS PRESENCE IN BLOOD BY LIGHT MICROSCOPY Moderate Normal [facility] Comment on above: Performed By: #### L [id number] ####[facility] ([facility])[address] [place] [address] BASOPHILS (10*3/UL) IN BLOOD BY CALCULATION 0.01 10*3/uL Normal 0.00-0.20 [facility] Comment on above: Performed By: #### L [id number] ####[facility] ([facility])[address] [place] [address] BASOPHILS/100 LEUKOCYTES IN BLOOD BY AUTOMATED COUNT 0.3 % Normal 0.0-1.0 [facility] Comment on above: Performed By: #### L [id number] ####[facility] ([facility])[address] [place] [address] EOSINOPHILS (10*3/UL) IN BLOOD BY CALCULATION 0.07 10*3/uL Normal 0.00-0.50 [facility] Comment on above: Performed By: #### L [id number] ####[facility] ([facility])[address] [place] [address] EOSINOPHILS/100 LEUKOCYTES IN BLOOD BY AUTOMATED COUNT 2.1 % Normal 0.0-6.0 [facility] [facility] Comment on above: Performed By: #### L [id number] ####[facility] ([facility])[address] [place] [address] IMMATURE GRANULOCYTES (10*3/UL) IN BLOOD BY CALCULATION 0.08 10*3/uL Normal 0.00-0.20 [facility] Comment on above: Performed By: #### L [id number] ####[facility] ([facility])[address] [place] [address] IMMATURE GRANULOCYTES/100 LEUKOCYTES IN BLOOD BY AUTOMATED COUNT 2.4 % High 0.0-1.0 [facility] Comment on above: Performed By: #### L [id number] ####[facility] ([facility])[address] [place] [address] LYMPHOCYTES (10*3/UL) IN BLOOD BY CALCULATION 0.82 10*3/uL Low 1.20-4.00 [facility] Comment on above: Performed By: #### L [id number] ####[facility] ([facility])[address] [place] [address] LYMPHOCYTES/100 LEUKOCYTES IN BLOOD BY AUTOMATED COUNT 24.8 % Normal 20.0-45.0 [facility] Comment on above: Performed By: #### L [id number] ####[facility] ([facility])[address] [place] [address] MONOCYTES (10*3/UL) IN BLOOD BY CALCUATION 0.55 10*3/uL Normal 0.10-1.00 [facility] Comment on above: Performed By: #### L [id number] ####[facility] ([facility])[address] [place] [address] MONOCYTES/100 LEUKOCYTES IN BLOOD BY AUTOMATED COUNT 16.7 % High 5.0-12.0 [facility] Comment on above: Performed By: #### L [id number] ####[facility] ([facility])[address] [place] [address] NEUTROPHILS (10*3/UL) IN BLOOD BY CALCULATION 1.8 10*3/uL Normal 1.6-7.6 [facility] Comment on above: Performed By: #### L [id number] ####[facility] ([facility])[address] [place] [address] NEUTROPHILS/100 LEUKOCYTES IN BLOOD BY AUTOMATED COUNT 53.7 % Normal 40.0-72.0 [facility] Comment on above: Performed By: #### L [id number] ####[facility] ([facility])[address] [place] [address] POIKILOCYTOSIS (PRESENCE) IN BLOOD BY LIGHT MICROSCOPY Slight Normal [facility] Comment on above: Performed By: #### L [id number] ####[facility] ([facility])[address] [place] [address] POLYCHROMASIA IN BLOOD BY LIGHT MICROSCOPY Slight Normal [facility] Comment on above: Performed By: #### L [id number] ####[facility] ([facility])[address] [place] [address] POCT GLUCOSE METER UNSOLICIT ED RESULTSon 11-14-2024 Glucose [Mass/Vol] 134 mg/dL High 70-105 [facility] Comment on above: Order Comment: Waive d Testing in the ED is performed under the ED CLIA certificate #[id number]. Result Comment: [email or web address] Performed By: #### L [id number] #### [facility] ([facility]) [address] [place] [address] Glucose [Mass/Vol] 155 mg/dL High 70-105 [facility] Comment on above: Order Comment: Waive d Testing in the ED is performed under the ED CLIA certificate #[id number]. Result Comment: [email or web address] Performed By: #### L [id number] #### [facility] ([facility]) [address] [place] [address] CBC WITH AUTO DIFFERENTIALon 11-13-2024 Erythrocyte distribution width (RBC) [Ratio] 21.3 % High 11.5-15.0 [facility] Comment on above: Performed By: #### L [id number] #### [facility] ([facility]) [address] [place] [address] ERYTHROCYTE MEAN CORPUSCULAR HEMOGLOBIN CONCENTRATION (G/DL) BY AUTOMATED 31.1 g/dL Low 32.0-35.0 [facility] Comment on above: Performed By: #### L [id number] #### [facility] ([facility]) [address] [address] Hematocrit (Bld) [Volume fraction] 26.4 % Low 36.0-45.0 [facility] Comment on above: Performed By: #### L [id number] #### [facility] ([facility]) [address] [place] [address] Hemoglobin (Bld) [Mass/Vol] 8.2 g/dL Low 12.0-15.0 [facility] Comment on above: Performed By: #### L [id number] #### [facility] ([facility]) [address] [place] [address] IMMATURE PLATELET FRACTION % 6.7 % High 0.8-6.3 [facility] Comment on above: Performed By: #### L [id number] #### [facility] ([facility]) [address] [address] MCH (RBC) [Entitic mass] 34.0 pg High 27.0-33.0 [facility] Comment on above: Performed By: #### L [id number] #### [facility] ([facility]) [address] [place] [address] MCV (RBC) [Entitic vol] 109.5 fL High 82.0-98.0 [facility] Comment on above: Performed By: #### L [id number] #### [facility] ([facility]) [address] [address] NRBC (PER 100 WBCS) BY AUTOMATED COUNT 3.1 % High 0 [facility] Comment on above: Performed By: #### L [id number] #### [facility] ([facility]) [address] [place] [address] PLATELETS (10*3/UL) IN BLOOD AUTOMATED COUNT 36 10*3/uL Low 150-400 [facility] Comment on above: Performed By: #### L [id number] #### [facility] ([facility]) [address] [place] [address] RBC (Bld) [#/Vol] 2.41 10*6/uL Low 3.80-5.00 [facility] Comment on above: Performed By: #### L [id number] #### [facility] ([facility]) [address] [place] [address] WBC (Bld) [#/Vol] 2.60 10*3/uL Low 4.00-10.60 [facility] Comment on above: Performed By: #### L [id number] #### [facility] ([facility]) [address] [place] [address] COLD AGGLUTININ SCREENon COLD AGGLUTININ TITER <1:32 Normal <1:32 [facility] Comment on above: Order Comment: Bubba Hillman S Result Comment: INTE RPRETIVE INFORMATION: Cold Agglutinins Titers of 1:32 or [...] disease, and common respiratory disease. Performed By: [facility] [address] [place] [address] Wildlife [employer] Professor: Cal Delgado MD, PhD CLIA Number: [id number] Performed By: #### L [id number] ####[facility] ([facility])[address] [place] [address] COMPREHENSIVE METABOLIC PANE Dayo 11-13-2024 Albumin [Mass/Vol] 3.2 g/dL Low 3.5-5.7 [facility] Comment on above: Performed By: #### L [id number] ####[facility] ([facility])[address] [place] [address] ALP [Catalytic activity/Vol] 81 U/L Normal 34-104 [facility] Comment on above: Performed By: #### L [id number] ####[facility] ([facility])[address] [place] [address] ALT [Catalytic activity/Vol] 12 U/L Normal 7-52 [facility] Comment on above: Performed By: #### L [id number] ####[facility] ([facility])[address] [place] [address] Anion gap [Moles/Vol] 6 mmol/L Low 7-20 [facility] Comment on above: Performed By: #### L [id number] ####[facility] ([facility])[address] [place] [address] AST [Catalytic activity/Vol] 12 U/L Low 13-39 [facility] Comment on above: Performed By: #### L [id number] ####[facility] ([facility])[address] [place] [address] Bilirubin [Mass/Vol] 0.7 mg/dL Normal 0.3-1.0 [facility] Comment on above: Performed By: #### L [id number] ####[facility] ([facility])[address] [place] [address] Calcium [Mass/Vol] 8.2 mg/dL Low 8.6-10.3 [facility] Comment on above: Performed By: #### L [id number] ####[facility] ([facility])[address] [place] [address] Chloride [Moles/Vol] 110 mmol/L High 98-107 [facility] Comment on above: Performed By: #### L [id number] ####[facility] ([facility])[address] [place] [address] CO2 [Moles/Vol] 30 mmol/L Normal 21-31 [facility] Comment on above: Performed By: #### L [id number] ####[facility] ([facility])[address] [place] [address] Creatinine [Mass/Vol] 0.48 mg/dL Low 0.60-1.20 [facility] Comment on above: Performed By: #### L [id number] ####[facility] ([facility])[address] [place] [address] GLOMERULAR FILTRATION RATE ML/MIN/1.73 SQ M.PREDICTED 107.7 mL/min/1.73m*2 Normal >60.0 [facility] Comment on above: Result Comment: [facility]???s estimated glomerular filtration rate (eGFR) will no [...] one group of individuals. Performed By: #### L [id number] ####[facility] ([facility])[address] [place] [address] Glucose [Mass/Vol] 120 mg/dL High 70-100 [facility] Comment on above: Performed By: #### L [id number] ####[facility] ([facility])[address] [place] [address] Potassium [Moles/Vol] 3.4 mmol/L Low 3.5-5.1 [facility] Comment on above: Performed By: #### L [id number] ####[facility] ([facility])[address] [place] [address] Protein [Mass/Vol] 5.1 g/dL Low 6.0-8.3 [facility] Comment on above: Performed By: #### L [id number] ####[facility] ([facility])[address] [place] [address] Sodium [Moles/Vol] 143 mmol/L Normal 136-145 [facility] Comment on above: Performed By: #### L [id number] ####[facility] ([facility])[address] [place] [address] Urea nitrogen [Mass/Vol] 10 mg/dL Normal 7-25 [facility] Comment on above: Performed By: #### L [id number] ####[facility] ([facility])[address] [place] [address] UREA NITROGEN/CREATININE (MASS RATIO) IN SER/PLAS 20.8 Normal [facility] Comment on above: Performed By: #### L [id number] ####[facility] ([facility])[address] [place] [address] HSV 1 AND 2 GLYCOPROTEIN G-S PECIFIC ANTIBODY, IGGon 11-13-2024 HSV 1 GLYCOPROTEIN G AB, IGG 8.77 IV High <=0.89 [facility] Comment on above: Result Comment: REFE RENCE INTERVAL: HSV 1 Glycoprotein G Ab, IgG [...] possible using a non-type specific screening test. Performed By: #### L [id number] #### [facility] ([facility]) [address] [place] [address] HSV 2 GLYCOPROTEIN G AB, IGG 0.13 IV Normal <=0.89 [facility] Comment on above: Result Comment: REFE RENCE INTERVAL: HSV 2 Glycoprotein G Ab, IgG [...] particularly if the result for HSV-2 is Performed By: [facility] [address] [place] [address] Wildlife Management Professor: Cal Delgado MD, PhD CLIA Number: [id number] Performed By: #### L [id number] #### [facility] ([facility]) [address] [place] [address] MAGNESIUMon 11-13-2024 Magnesium [Mass/Vol] 2.1 mg/dL Normal 1.9-2.7 [facility] Comment on above: Performed By: #### L [id number] ####[facility] ([facility])[address] [place] [address] MANUAL DIFFERENTIALon 2024 ANISOCYTOSIS PRESENCE IN BLOOD BY LIGHT MICROSCOPY Moderate Normal [facility] Comment on above: Performed By: #### L [id number] #### [facility] ([facility]) [address] [place] [address] BASOPHILS (10*3/UL) IN BLOOD BY CALCULATION 0.01 10*3/uL Normal 0.00-0.20 [facility] Comment on above: Performed By: #### L [id number] #### [facility] ([facility]) [address] [place] [address] BASOPHILS/100 LEUKOCYTES IN BLOOD BY AUTOMATED COUNT 0.4 % Normal 0.0-1.0 [facility] Comment on above: Performed By: #### L [id number] #### [facility] ([facility]) [address] [place] [address] EOSINOPHILS (10*3/UL) IN BLOOD BY CALCULATION 0.04 10*3/uL Normal 0.00-0.50 [facility] Comment on above: Performed By: #### L [id number] #### [facility] ([facility]) [address] [place] [address] EOSINOPHILS/100 LEUKOCYTES IN BLOOD BY AUTOMATED COUNT 1.5 % Normal 0.0-6.0 [facility] Comment on above: Performed By: #### L [id number] #### [facility] ([facility]) [address] [place] [address] IMMATURE GRANULOCYTES (10*3/UL) IN BLOOD BY CALCULATION 0.10 10*3/uL Normal 0.00-0.20 [facility] Comment on above: Performed By: #### L [id number] #### [facility] ([facility]) [address] [place] [address] IMMATURE GRANULOCYTES/100 LEUKOCYTES IN BLOOD BY AUTOMATED COUNT 3.8 % High 0.0-1.0 [facility] Comment on above: Performed By: #### L [id number] #### [facility] ([facility]) [address] [place] [address] LYMPHOCYTES (10*3/UL) IN BLOOD BY CALCULATION 0.78 10*3/uL Low 1.20-4.00 [facility] Comment on above: Performed By: #### L [id number] #### [facility] ([facility]) [address] [place] [address] LYMPHOCYTES/100 LEUKOCYTES IN BLOOD BY AUTOMATED COUNT 30.0 % Normal 20.0-45.0 [facility] Comment on above: Performed By: #### L [id number] #### [facility] ([facility]) [address] [place] [address] MACROCYTES (PRESENCE) IN BLOOD BY LIGHT MICROSCOPY Slight Normal [facility] Comment on above: Performed By: #### L [id number] #### [facility] ([facility]) [address] [place] [address] MONOCYTES (10*3/UL) IN BLOOD BY CALCUATION 0.45 10*3/uL Normal 0.10-1.00 [facility] Comment on above: Performed By: #### L [id number] #### [facility] ([facility]) [address] [place] [address] MONOCYTES/100 LEUKOCYTES IN BLOOD BY AUTOMATED COUNT 17.3 % High 5.0-12.0 [facility] Comment on above: Performed By: #### L [id number] #### [facility] ([facility]) [address] [place] [address] NEUTROPHILS (10*3/UL) IN BLOOD BY CALCULATION 1.2 10*3/uL Low 1.6-7.6 [facility] Comment on above: Performed By: #### L [id number] #### [facility] ([facility]) [address] [place] [address] NEUTROPHILS/100 LEUKOCYTES IN BLOOD BY AUTOMATED COUNT 47.0 % Normal 40.0-72.0 [facility] Comment on above: Performed By: #### L [id number] #### [facility] ([facility]) [address] [place] [address] POIKILOCYTOSIS (PRESENCE) IN BLOOD BY LIGHT MICROSCOPY Slight Normal [facility] Comment on above: Performed By: #### L [id number] #### [facility] ([facility]) [address] [place] [address] POLYCHROMASIA IN BLOOD BY LIGHT MICROSCOPY Slight Normal [facility] Comment on above: Performed By: #### L [id number] #### [facility] ([facility]) [address] [place] [address] POCT GLUCOSE METER UNSOLICIT ED RESULTSon 11-13-2024 Glucose [Mass/Vol] 141 mg/dL High 70-105 [facility] Comment on above: Order Comment: Waive d Testing in the ED is performed under the ED CLIA certificate #[id number]. Result Comment: [email or web address] Performed By: #### L [id number] #### [facility] ([facility]) [address] [place] [address] Glucose [Mass/Vol] 156 mg/dL High 70-105 [facility] Comment on above: Order Comment: Waive d Testing in the ED is performed under the ED CLIA certificate #[id number]. Result Comment: kat [email or web address] Performed By: #### L [id number] #### [facility] ([facility]) [address] [place] [address] Glucose [Mass/Vol] 129 mg/dL High 70-105 [facility] Comment on above: Order Comment: Waive d Testing in the ED is performed under the ED CLIA certificate #[id number]. Result Comment: [email or web address] Performed By: #### L [id number] #### [facility] ([facility]) [address] [place] [address] Glucose [Mass/Vol] 139 mg/dL High 70-105 [facility] Comment on above: Order Comment: Waive d Testing in the ED is performed under the ED CLIA certificate #[id number]. Result Comment: [email or web address] Performed By: #### L [id number] #### [facility] ([facility]) [address] [place] [address] PROTEIN ELECTROPHORESIS, SER UMon 11-13-2024 Protein [Mass/Vol] 4.8 g/dL Low 6.0-8.3 [facility] Comment on above: Order Comment: Retim e per CHARIS Hillman S Performed By: #### L [id number] ####[facility] ([facility])[address] [place] [address] PROTEIN FRACTION (INTERPRETATION) IN SER/PLAS BY ELECTROPHORESIS Please see attached report. [facility] Comment on above: Order Comment: Retim e per RN Kady S Performed By: #### L [id number] ####[facility] ([facility])[address] [place] [address] 30on 11-12-2024 30 The patient is Moder ately Stable - Low risk of patient condition [...] and behaviors that affect risk of falls [place] fall precautions as indicated by assessment Educate [...] symptoms are monitored and maintained or improved Outc (more content not included)... Normal [facility] 30 The patient is Moder ately Stable - Low risk of patient condition declining or worsening The patient's goals for the shift include comfort, rest The clinical goals for the shift include VSS, safety Problem: Pain - Adult Goal: Verbalizes/displays adequate comfort level or baseline comfort level Outcome: Progressing Flowsheets (Taken 11/12/2024 0808) Verbalizes/displays adequate comfort level or baseline comfort level: Encourage patient to monitor pain and request assistance Assess pain using appropriate pain scale Administer analgesics based on type and severity of pain and evaluate response Problem: Safety - Adult Goal: Free from fall injury Outcome: Progressing Flowsheets (Taken 11/12/2024807) Free from fall injury: Assess patient frequently for physical needs [place] fall precautions as indicated by assessment Problem: [...] comorbid symptoms for stability, deterioration, or improvement Normal [facility] ANAon 11-12-2024 CIPRIANO TITER <1:40 Normal <=1:40 [facility] Comment on above: Result Comment: Test performed using LEXX IFA CIPRIANO Hep-2 Test, a pre-standardized assay designed for the qualitative and semi-quantitative detection of antinuclear antibodies. Performed By: #### L [id number] ####[facility] ([facility])[address] [place] [address] CBC WITH AUTO DIFFERENTIALon 11-12-2024 ERYTHROCYTE DISTRIBUTION WIDTH (RATIO) BY AUTOMATED COUNT Normal [facility] Comment on above: Result Comment: Unab le to calculate Performed By: #### L [id number] #### [facility] ([facility]) [address] [place] [address] ERYTHROCYTE MEAN CORPUSCULAR HEMOGLOBIN CONCENTRATION (G/DL) BY AUTOMATED 32.3 g/dL Normal 32.0-35.0 [facility] Comment on above: Performed By: #### L [id number] #### [facility] ([facility]) [address] [place] [address] Hematocrit (Bld) [Volume fraction] 25.4 % Low 36.0-45.0 [facility] Comment on above: Performed By: #### L [id number] #### [facility] ([facility]) [address] [place] [address] Hemoglobin (Bld) [Mass/Vol] 8.2 g/dL Low 12.0-15.0 [facility] Comment on above: Performed By: #### L [id number] #### [facility] ([facility]) [address] [place] [address] IMMATURE PLATELET FRACTION % 7.7 % High 0.8-6.3 [facility] Comment on above: Performed By: #### L [id number] #### [facility] ([facility]) [address] [place] [address] MCH (RBC) [Entitic mass] 35.0 pg High 27.0-33.0 [facility] Comment on above: Performed By: #### L [id number] #### [facility] ([facility]) [address] [place] [address] MCV (RBC) [Entitic vol] 108.5 fL High 82.0-98.0 [facility] Comment on above: Performed By: #### L [id number] #### [facility] ([facility]) [address] [place] [address] NRBC (PER 100 WBCS) BY AUTOMATED COUNT 4.7 % High 0 [facility] Comment on above: Performed By: #### L [id number] #### [facility] ([facility]) [address] [place] [address] PLATELETS (10*3/UL) IN BLOOD AUTOMATED COUNT 17 10*3/uL Invalid Interpretation Code 150-400 [facility] Comment on above: Performed By: #### L [id number] #### [facility] ([facility]) [address] [place] [address] RBC (Bld) [#/Vol] 2.34 10*6/uL Low 3.80-5.00 [facility] Comment on above: Performed By: #### L [id number] #### [facility] ([facility]) [address] [place] [address] WBC (Bld) [#/Vol] 2.32 10*3/uL Low 4.00-10.60 [facility] Comment on above: Performed By: #### L [id number] #### [facility] ([facility]) [address] [place] [address] HEPATITIS PANEL, ACUTEon HEPATITIS A VIRUS IGM AB PRESENCE IN SER/PLAS Non-Reactive Normal Nonreactive [facility] Comment on above: Performed By: #### L [id number] #### [facility] ([facility]) [address] [place] [address] HEPATITIS B VIRUS CORE AB (PRESENCE) IN SER/PLAS BY IMM Non-Reactive Normal Nonreactive [facility] Comment on above: Performed By: #### L [id number] #### [facility] ([facility]) [address] [place] [address] HEPATITIS B VIRUS SURFACE AG PRESENCE IN SERUM Non-Reactive Normal Nonreactive [facility] Comment on above: Performed By: #### L [id number] #### [facility] ([facility]) [address] [place] [address] HEPATITIS C VIRUS AB PRESENCE IN SERUM Non-Reactive Normal Nonreactive [facility] Comment on above: Performed By: #### L [id number] #### [facility] ([facility]) [address] [place] [address] HOMOCYSTEINE (CARDIO), FPIAo n 11-12-2024 HOMOCYSTEINE 20.5 umol/L High 0.0-15.0 [facility] Comment on above: Result Comment: Test Performed by [facility] [place] [address] - Released 11/12/2024 18:48 Performed By: #### L [id number] #### [facility] LAB ([facility]) [address] [place] [address] MANUAL DIFFERENTIALon 2024 ANISOCYTOSIS PRESENCE IN BLOOD BY LIGHT MICROSCOPY Moderate Normal [facility] Comment on above: Performed By: #### L [id number] #### [facility] ([facility]) [address] [place] [address] BASOPHILS (10*3/UL) IN BLOOD BY CALCULATION 0.00 10*3/uL Normal 0.00-0.20 [facility] Comment on above: Performed By: #### L [id number] #### [facility] ([facility]) [address] [place] [address] BASOPHILS/100 LEUKOCYTES IN BLOOD BY AUTOMATED COUNT 0.0 % Normal 0.0-1.0 [facility] Comment on above: Performed By: #### L [id number] #### [facility] ([facility]) [address] [place] [address] EOSINOPHILS (10*3/UL) IN BLOOD BY CALCULATION 0.03 10*3/uL Normal 0.00-0.50 [facility] Comment on above: Performed By: #### L [id number] #### [facility] ([facility]) [address] [place] [address] EOSINOPHILS/100 LEUKOCYTES IN BLOOD BY AUTOMATED COUNT 1.3 % Normal 0.0-6.0 [facility] Comment on above: Performed By: #### L [id number] #### [facility] ([facility]) [address] [place] [address] LYMPHOCYTES (10*3/UL) IN BLOOD BY CALCULATION 1.11 10*3/uL Low 1.20-4.00 [facility] Comment on above: Performed By: #### L [id number] #### [facility] ([facility]) [address] [place] [address] LYMPHOCYTES/100 LEUKOCYTES IN BLOOD BY AUTOMATED COUNT 48.0 % High 20.0-45.0 [facility] Comment on above: Performed By: #### L [id number] #### [facility] ([facility]) [address] [place] [address] MACROCYTES (PRESENCE) IN BLOOD BY LIGHT MICROSCOPY Moderate Normal [facility] Comment on above: Performed By: #### L [id number] #### [facility] ([facility]) [address] [place] [address] METAMYELOCYTES (10*3/UL) IN BLOOD BY CALCULATION 0.02 10*3/uL High 0.00 [facility] Comment on above: Performed By: #### L [id number] #### [facility] ([facility]) [address] [place] [address] METAMYELOCYTES/100 LEUKOCYTES IN BLOOD CELLAVISION 0.7 % High 0.0-0.0 [facility] Comment on above: Performed By: #### L [id number] #### [facility] ([facility]) [address] [place] [address] MONOCYTES (10*3/UL) IN BLOOD BY CALCUATION 0.14 10*3/uL Normal 0.10-1.00 [facility] Comment on above: Performed By: #### L [id number] #### [facility] ([facility]) [address] [place] [address] MONOCYTES/100 LEUKOCYTES IN BLOOD BY AUTOMATED COUNT 6.0 % Normal 5.0-12.0 [facility] Comment on above: Performed By: #### L [id number] #### [facility] ([facility]) [address] [place] [address] MYELOCYTES (10*3/UL) IN BLOOD BY CALCULATION 0.06 10*3/uL High 0.00 [facility] Comment on above: Performed By: #### L [id number] #### [facility] ([facility]) [address] [place] [address] MYELOCYTES/100 LEUKOCYTES IN BLOOD CELLAVISION 2.7 % High 0.0-0.0 [facility] Comment on above: Performed By: #### L [id number] #### [facility] ([facility]) [address] [place] [address] NEUTROPHILS (10*3/UL) IN BLOOD BY CALCULATION 1.0 10*3/uL Low 1.6-7.6 [facility] Comment on above: Performed By: #### L [id number] #### [facility] ([facility]) [address] [place] [address] NEUTROPHILS/100 LEUKOCYTES IN BLOOD BY AUTOMATED COUNT 41.3 % Normal 40.0-72.0 [facility] Comment on above: Performed By: #### L [id number] #### [facility] ([facility]) [address] [place] [address] NUCLEATED RED BLOOD CELLS IN BLOOD BY LIGHT MICROSCOPY Present Normal [facility] Comment on above: Performed By: #### L [id number] #### [facility] ([facility]) [address] [place] [address] PLASMA CELLS/100 LEUKOCYTES IN BLOOD 0 % Normal 0 [facility] Comment on above: Performed By: #### L [id number] #### [facility] ([facility]) [address] [place] [address] PLATELETS GIANT PRESENCE IN BLOOD BY LIGHT MICROSCOPY Present Normal [facility] Comment on above: Performed By: #### L [id number] #### [facility] ([facility]) [address] [place] [address] POIKILOCYTOSIS (PRESENCE) IN BLOOD BY LIGHT MICROSCOPY Slight Normal [facility] Comment on above: Performed By: #### L [id number] #### [facility] ([facility]) [address] [place] [address] POLYCHROMASIA IN BLOOD BY LIGHT MICROSCOPY Slight Normal [facility] Comment on above: Performed By: #### L [id number] #### [facility] ([facility]) [address] [facility] [place] [address] VARIANT LYMPHOCYTES (10*3/UL) IN BLOOD BY CALCULATION 0.00 10*3/uL Normal 0.00 [facility] Comment on above: Performed By: #### L [id number] #### [facility] ([facility]) [address] [place] [address] VARIANT LYMPHOCYTES/100 LEUKOCYTES IN BLOOD CELLAVISION 0.0 % Normal 0.0-0.0 [facility] Comment on above: Performed By: #### L [id number] #### [facility] ([facility]) [address] [place] [address] METHYLMALONIC ACID, SERUMon 11-12-2024 METHYLMALONIC ACID, S 3.04 umol/L High 0.00-0.40 [facility] Comment on above: Result Comment: Slight elevation 0.41-0.99 umol/L Consistent with mild vitamin B12 deficiency, renal insufficiency, or intravascular volume contraction. Moderate elevation 1.00-9.99 umol/L Consistent with mild vitamin B12 deficiency. Massive elevation - Greater than or equal to 10 umol/L Consistent with significant vitamin B12 deficiency or with inborn errors of metabolism. INTERPRETIVE INFORMATION: MMA Serum/Plasma, Vitamin B12 Status This test was developed and its performance characteristics determined by [facility]. It has not been cleared or approved by the US Food and Drug Administration. This test was performed in a CLIA certified laboratory and is intended for clinical purposes. Performed By: [facility] [address] [place] [address] Wildlife Management Professor: Cal Delgado MD, PhD CLIA Number: [id number] Performed By: #### L [id number] ####[facility] (BEAKER)[address] [place] [address] PARVOVIRUS B19 ANTIBODY, IGG AND IGMon 11-12-2024 PARVOVIRUS B19 IGG ANTIBODY 7.31 IV High <=0.90 [facility] Comment on above: Result Comment: INTE RPRETIVE INFORMATION: Parvovirus B19 Antibody, IgG 0.90 IV [...] the same laboratory at the same time. Performed By: #### L [id number] #### [facility] ([facility]ER) [address] [place] [address] PARVOVIRUS B19 IGM ANTIBODY 0.42 IV Normal <=0.89 [facility] Comment on above: Result Comment: INTE RPRETIVE INFORMATION: Parvovirus B19 Antibody, IgM 0.89 IV [...] levels of specific IgM antibodies. Performed By: [facility] [address] [place] [id number] Wildlife Management Professor: Cal Delgado MD, PhD CLIA Number: [id number] Performed By: #### L [id number] #### [facility] ([facility]) [address] [place] [address] POCT GLUCOSE METER UNSOLICIT ED RESULTSon 11-12-2024 Glucose [Mass/Vol] 156 mg/dL High 70-105 [facility] Comment on above: Order Comment: Waive d Testing in the ED is performed under the ED CLIA certificate #[id number]. Result Comment: fbar aka Performed By: #### L [id number] #### [facility] ([facility]) [address] [place] [address] Glucose [Mass/Vol] 144 mg/dL High 70-105 [facility] Comment on above: Order Comment: Waive d Testing in the ED is performed under the ED CLIA certificate #[id number]. Result Comment: smap e Performed By: #### L [id number] ####[facility] ([facility])[address] [place] [address] Glucose [Mass/Vol] 149 mg/dL High 70-105 [facility] Comment on above: Order Comment: Waive d Testing in the ED is performed under the ED CLIA certificate #[id number]. Result Comment: [email or web address] [email or web address] Performed By: #### L [id number] ####[facility] ([facility])[address] [place] [address] Glucose [Mass/Vol] 135 mg/dL High 70-105 [facility] Comment on above: Order Comment: Waive d Testing in the ED is performed under the ED CLIA certificate #[id number]. Result Comment: [email or web address] [email or web address] Performed By: #### L [id number] #### [facility] ([facility]) [address] [place] [address] T3, FREEon 11-12-2024 TRIIODOTHYRONINE (T3) FREE (PG/ML) IN SER/PLAS 3.0 pg/mL Normal 2.5-3.9 [facility] Comment on above: Performed By: #### L [id number] #### [facility] ([facility]) [address] [place] [address] 30on 11-11-2024 30 The patient is Moder ately Stable - Low risk of patient condition declining or worsening The patient's goals for the shift include Rest The clinical goals for the shift include VSS safety Normal [facility] 30 The patient is Moder ately Stable - Low risk of patient condition declining or worsening The patient's goals for the shift include rest The clinical goals for the shift include VSS Normal [facility] CBC WITH AUTO DIFFERENTIALon 11-11-2024 ERYTHROCYTE DISTRIBUTION WIDTH (RATIO) BY AUTOMATED COUNT Normal [facility] Comment on above: Result Comment: Unab le to calculate Performed By: #### L [id number] ####[facility] ([facility])[address] [place] [address] ERYTHROCYTE MEAN CORPUSCULAR HEMOGLOBIN CONCENTRATION (G/DL) BY AUTOMATED 32.3 g/dL Normal 32.0-35.0 [facility] Comment on above: Performed By: #### L [id number] ####[facility] LAB (BEAKER)[address] [place] [address] Hematocrit (Bld) [Volume fraction] 25.4 % Low 36.0-45.0 [facility] Comment on above: Performed By: #### L [id number] ####[facility] LAB (BEAKER)[address] [place] [address] Hemoglobin (Bld) [Mass/Vol] 8.2 g/dL Low 12.0-15.0 [facility] Comment on above: Performed By: #### L [id number] ####[facility] [place] [address] IMMATURE PLATELET FRACTION % 7.8 % High 0.8-6.3 [facility] Comment on above: Performed By: #### L [id number] ####[facility] [place] [address] MCH (RBC) [Entitic mass] 34.9 pg High 27.0-33.0 [facility] Comment on above: Performed By: #### L [id number] ####[facility] (BEAKER)[address] [place] [address] MCV (RBC) [Entitic vol] 108.1 fL High 82.0-98.0 [facility] Comment on above: Performed By: #### L [id number] ####[facility] [place] [address] NRBC (PER 100 WBCS) BY AUTOMATED COUNT 4.2 % High 0 [facility] Comment on above: Performed By: #### L [id number] ####[facility] ([facility] [place] [address] PLATELETS (10*3/UL) IN BLOOD AUTOMATED COUNT 19 10*3/uL Invalid Interpretation Code 150-400 [facility] Comment on above: Performed By: #### L [id number] ####[facility] LAB (BEAKER)[address] [place] [address] RBC (Bld) [#/Vol] 2.35 10*6/uL Low 3.80-5.00 [facility] Comment on above: Performed By: #### L [id number] ####[facility] (BEAKER)[address] [place] [address] WBC (Bld) [#/Vol] 2.87 10*3/uL Low 4.00-10.60 [facility] Comment on above: Performed By: #### L [id number] ####[facility] (BEAKER)[address] [place] [address] CONSULTon 11-11-2024 CONSULT ------ -- Attestation signed by Haroldo Brown MD at 11/11/2024 6:50 PM I performed a history and physical examination of the patient and discussed his management with the resident. I reviewed the resident???s note and agree with the documented findings and plan of care. Aaron Brown MD [facility] Hematology and Oncology at [facility] [address] [place] [address] -- HEMATOLOGY and MEDICAL ONCOLOGY: [facility] MD Dr. Юлия Mehta MD Patient name: Andreia Thomas Patient Today's Date and Time: 11/11/2024, 3:09 PM Admission Date: 11/09/2024 Impression: New onset pancytopenia Peripheral smear showed pancyopenia, LDH high, Haptoglobin low, bili was slightly elevated at [facility], normal here. Altered mental status, [...] these hours, Please contact Hematology/Oncology Fellow through [employer] first For Hematology Oncology needs on weekends and after hours, please page the on-call fellow through the hospital refining still operator. Subjective Reason for consultation / Chief complaint: Pancytopenia History of Present Illness Andreia Thomas is a 59 y.o.-year-old female with PMH of DM2, dyslipidemia, hypothyroidism and anxiety who was admitted to [facility] due to confusion and weakness for the past 4-6 weeks. Spouse at bedside reports that she had been confused ON and OFF, although she is completely alert and oriented today. CT Head at [facility] was unremarkable, CT A/P was unremarkable. She was noted to have pancytopenia with WBC 2.2, Hb 5.3 and PLT 31, for which she was transferred to [facility]. Her blood work up available from 2018 showed normal counts. Pt reports that she [...] of Food in the Last Year: Not o (more content not included)... Normal [facility] COPPER, SERUMon 11-11-2024 COPPER 129.2 ug/dL Normal 80.0-155.0 [facility] Comment on above: Result Comment: INTE RPRETIVE INFORMATION: Copper, Serum or Plasma Elevated results [...] developed and its performance characteristics determined by [facility]. It has not been cleared or approved by the US Food and Drug Administration. This test was performed in a CLIA certified laboratory and is intended for clinical purposes. Performed By: [facility] [address] [place] [address] Wildlife Management Professor: Cal Delgado MD, PhD CLIA Number: [id number] Performed By: #### L [id number] ####[facility] ([facility])[address] [place] [address] MANUAL DIFFERENTIALon 2024 ANISOCYTOSIS PRESENCE IN BLOOD BY LIGHT MICROSCOPY Moderate Normal [facility] Comment on above: Performed By: #### L [id number] #### [facility] (BEAKER) [address] [place] [address] BASOPHILS (10*3/UL) IN BLOOD BY CALCULATION 0.01 10*3/uL Normal 0.00-0.20 [facility] Comment on above: Performed By: #### L [id number] #### [facility] (BEAKER) [address] [place] [address] BASOPHILS/100 LEUKOCYTES IN BLOOD BY AUTOMATED COUNT 0.3 % Normal 0.0-1.0 [facility] Comment on above: Performed By: #### L [id number] #### [facility] (BEAKER) [address] [place] [address] EOSINOPHILS (10*3/UL) IN BLOOD BY CALCULATION 0.01 10*3/uL Normal 0.00-0.50 [facility] Comment on above: Performed By: #### L [id number] #### [facility] (BEAKER) [address] [place] [address] EOSINOPHILS/100 LEUKOCYTES IN BLOOD BY AUTOMATED COUNT 0.3 % Normal 0.0-6.0 [facility] Comment on above: Performed By: #### L [id number] #### [facility] ([facility]) [address] [place] [address] IMMATURE GRANULOCYTES (10*3/UL) IN BLOOD BY CALCULATION 0.08 10*3/uL Normal 0.00-0.20 [facility] Comment on above: Performed By: #### L [id number] #### [facility] ([facility]) [address] [place] [address] IMMATURE GRANULOCYTES/100 LEUKOCYTES IN BLOOD BY AUTOMATED COUNT 2.8 % High 0.0-1.0 [facility] Comment on above: Performed By: #### L [id number] #### [facility] ([facility]) [address] [place] [address] LYMPHOCYTES (10*3/UL) IN BLOOD BY CALCULATION 1.33 10*3/uL Normal 1.20-4.00 [facility] Comment on above: Performed By: #### L [id number] #### [facility] ([facility]) [address] [place] [address] LYMPHOCYTES/100 LEUKOCYTES IN BLOOD BY AUTOMATED COUNT 46.3 % High 20.0-45.0 [facility] Comment on above: Performed By: #### L [id number] #### [facility] ([facility]) [address] [place] [address] MONOCYTES (10*3/UL) IN BLOOD BY CALCUATION 0.37 10*3/uL Normal 0.10-1.00 [facility] Comment on above: Performed By: #### L [id number] #### [facility] ([facility]) [address] [place] [address] MONOCYTES/100 LEUKOCYTES IN BLOOD BY AUTOMATED COUNT 12.9 % High 5.0-12.0 [facility] Comment on above: Performed By: #### L [id number] #### [facility] ([facility]) [address] [place] [address] NEUTROPHILS (10*3/UL) IN BLOOD BY CALCULATION 1.1 10*3/uL Low 1.6-7.6 [facility] Comment on above: Performed By: #### L [id number] #### [facility] ([facility]) [address] [place] [address] NEUTROPHILS/100 LEUKOCYTES IN BLOOD BY AUTOMATED COUNT 37.4 % Low 40.0-72.0 [facility] Comment on above: Performed By: #### L [id number] #### [facility] ([facility]) [address] [place] [address] POIKILOCYTOSIS (PRESENCE) IN BLOOD BY LIGHT MICROSCOPY Slight Normal [facility] Comment on above: Performed By: #### L [id number] #### [facility] ([facility]) [address] [place] [address] POLYCHROMASIA IN BLOOD BY LIGHT MICROSCOPY Slight Normal [facility] Comment on above: Performed By: #### L [id number] #### [facility] ([facility]) [address] [place] [address] POCT GLUCOSE METER UNSOLICIT ED RESULTSon 11-11-2024 Glucose [Mass/Vol] 190 mg/dL High 70-105 [facility] Comment on above: Order Comment: Waive d Testing in the ED is performed under the ED CLIA certificate #[id number]. Result Comment: judy pedro Performed By: #### L [id number] ####[facility] ([facility])[address] [facility] [place] [place] [address] Glucose [Mass/Vol] 144 mg/dL High 70-105 [facility] Comment on above: Order Comment: Waive d Testing in the ED is performed under the ED CLIA certificate #[id number]. Result Comment: sara soto Performed By: #### L [id number] #### [facility] ([facility]) [address] [place] [address] Glucose [Mass/Vol] 133 mg/dL High 70-105 [facility] Comment on above: Order Comment: Waive d Testing in the ED is performed under the ED CLIA certificate #[id number]. Result Comment: saraosmany soto Performed By: #### L [id number] ####[facility] (BEAKER)[address] [place] [address] Glucose [Mass/Vol] 115 mg/dL High 70-105 [facility] Comment on above: Order Comment: Waive d Testing in the ED is performed under the ED CLIA certificate #[id number]. Result Comment: saraosmany soto Performed By: #### L [id number] ####[facility] (BEAKER)[address] [place] [address] 30on 11-10-2024 30 Problem: Infection - Adult Goal: Absence of [...] goals for the shift include VSS, safety Normal [facility] 30 The patient is Moder ately Stable - Low risk of patient condition declining or worsening The patient's goals for the shift include rest The clinical goals for the shift include VSS, safety Normal [facility] ADAMTS 13 ACTIVITYon 025 [id number] ACTIVITY 53 % Low >=61 [facility] Comment on above: Result Comment: INTE RPRETIVE INFORMATION: [id number] Activity [id number] levels of less than 10 percent may be associated with either inherited (Wilmer-Felipe Syndrome) or acquired thrombotic thrombocytopenic purpura (TTP). A variety of medical conditions may result in a mild to moderate deficiency of USRRSV68 activity. Recent plasma exchange therapy may raise the observed LLDVGC54 activity. This test was developed and its performance characteristics determined by [facility]. It has not been cleared or approved by the [place] Food and Drug Administration. This test was performed in a CLIA certified laboratory and is intended for clinical purposes. Performed By: [facility] [address] [place] [address] Wildlife Management Professor: Cal Delgado MD, PhD CLIA Number: [id number] Performed By: #### L [id number] ####[facility] [place] [address] APTTon 11-10-2024 ACTIVATED PARTIAL THROMBOPLASTIN TIME IN PPP BY COAGULATION ASSAY 32.5 Seconds Normal 25.0-35.0 [facility] Comment on above: Result Comment: Clin ical significance of the APTT is questionable in the presence of heparin. Performed By: #### L [id number] ####[facility] ([facility])[address] [place] [address] BASIC METABOLIC PANELon 10-26 Anion gap [Moles/Vol] 5 mmol/L Low 7-20 [facility] Comment on above: Performed By: #### L [id number] #### [facility] ([facility]) [address] [place] [address] Calcium [Mass/Vol] 8.8 mg/dL Normal 8.6-10.3 [facility] Comment on above: Performed By: #### L [id number] #### [facility] ([facility]) [address] [place] [address] Chloride [Moles/Vol] 109 mmol/L High 98-107 [facility] Comment on above: Performed By: #### L [id number] #### [facility] [address] [place] [address] CO2 [Moles/Vol] 33 mmol/L High 21-31 [facility] Comment on above: Performed By: #### L [id number] #### [facility] LAB (BEAKER) [address] [facility] [address] Creatinine [Mass/Vol] 0.76 mg/dL Normal 0.60-1.20 [facility] Comment on above: Performed By: #### L [id number] #### [facility] ([facility]) [address] [place] [address] GLOMERULAR FILTRATION RATE ML/MIN/1.73 SQ M.PREDICTED 89.1 mL/min/1.73m*2 Normal >60.0 [facility] Comment on above: Result Comment: [facility]???s estimated glomerular filtration rate (eGFR) will no [...] one group of individuals. Performed By: #### L [id number] #### [facility] ([facility]) [address] [place] [address] Glucose [Mass/Vol] 92 mg/dL Normal 70-100 [facility] [facility] Comment on above: Performed By: #### L [id number] #### [facility] ([facility]) [address] [place] [address] Potassium [Moles/Vol] 3.6 mmol/L Normal 3.5-5.1 [facility] Comment on above: Performed By: #### L [id number] #### [facility] ([facility]) [address] [place] [address] Sodium [Moles/Vol] 143 mmol/L Normal 136-145 [facility] Comment on above: Performed By: #### L [id number] #### [facility] ([facility]) [address] [place] [address] Urea nitrogen [Mass/Vol] 20 mg/dL Normal 7-25 [facility] Comment on above: Performed By: #### L [id number] #### [facility] ([facility]) [address] [place] [address] UREA NITROGEN/CREATININE (MASS RATIO) IN SER/PLAS 26.3 Normal [facility] Comment on above: Performed By: #### L [id number] #### [facility] ([facility]) [address] [place] [address] BONE MARROW CELL DIFFERENTIA Dayo 11-10-2024 BM TOTAL CELLS COUNTED Normal [facility] Comment on above: Order Comment: See B one Marrow Exam Report Performed By: #### L [id number] ####[facility] ([facility])[address] [place] [address] BONE MARROW EXAMon 5 LAB AP ADDENDUM 1 Normal [facility] Comment on above: Result Comment: Anci llary studies were completed at [facility]: Chromosomes, hematologic, bone marrow: - 46,XX[20]. 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 Addendum electronically signed by Krysten Foster MD on 11/28/2024 at 11:50 AM Performed By: #### L [id number] #### [facility] ([facility]) [address] [place] [address] LAB AP ADDENDUM 3 Normal [facility] Comment on above: Result Comment: Parv ovirus immunostains completed on the aspirate clot section and core biopsy are negative. Addendum electronically signed by Krysten Foster MD on 12/05/2024 at 3:01 PM Performed By: #### L [id number] #### [facility] ([facility]) [address] [place] [address] LAB AP ANCILLARY RESULTS Normal [facility] Comment on above: Result Comment: Emily alvarez studies were completed at [facility]: Chromosomes, hematologic, bone marrow: - Pending. Performed By: #### L [id number] #### [facility] ([facility]) [address] [place] [address] LAB AP ASPIRATE SMEAR Normal [facility] Comment on above: Result Comment: The aspirate smears are adequately spiculate. The irhvdwj-jq-phgaroclr ratio is decreased. Cells of the myeloid lineage are relatively decreased in number with nuclear/cytoplasmic dyssynchrony. There is no increase in blasts identified. Cells of the erythroid lineage are relatively increased in number with normal maturation. Occasional forms show irregular nuclear contours and/or nuclear budding. Megakaryocytes appear adequate in number with occasional dysplastic forms ( nuclear lobes and markedly hyperlobated nuclei). Plasma cells are not increased in number and show no atypical features. Cell count: Blasts, 1%; progranulocytes, 2%; myelocytes, 8%; metamyelocytes, 3%: bands/segmented neutrophils, 10%; eosinophils, 0%; basophils, 0%; monocytes, 1%; lymphocytes, 9%; plasma cells, 0%; nucleated erythroid precursors, 66% (500 cells counted). Performed By: #### L [id number] #### [facility] ([facility]) [address] [place] [address] LAB AP ASR DISCLAIMER The interpretation of this case included the use of immunohistochemistry or special stains. These tests have not been cleared or approved by the U.S. Food and Drug Administration. The FDA has determined that such clearance or approval is not necessary. These tests are used for clinical purposes and should not be regarded as investigational or for research. This laboratory is certified to perform high complexity testing under the Clinical Laboratory Improvement Amendments of 1998. Normal [facility] Comment on above: Performed By: #### L [id number] #### [facility] ([facility]) [address] [place] [address] LAB AP CASE REPORT Normal [facility] Comment on above: Result Comment: Bone Marrow Case: [id number] Authorizing Provider: Hal Bajwa MD Collected: 11/10/2024 1300 Ordering Location: [address] Urology Received: 11/10/2024 1449 Pathologist: Krysten Foster MD Specimens: A) - Bone Marrow Clot B) - Bone Marrow Biopsy C) - Bone Marrow Aspirate Performed By: #### L [id number] #### [facility] ([facility]) [address] [place] [address] LAB AP CBC AND DIFFERENTIAL Normal [facility] Comment on above: Result Comment: Comp lete blood count (CBC) done on 11/10/24 shows the following: WBC, 3.47 x 10^3/???L; hemoglobin, 8.6 g/dL; hematocrit, 26.1%; MCV, 107.4 fL; and platelet count, 24 x10^3/???L. Absolute neutrophil count, 1.17 x 10^3/???L; absolute lymphocyte count, 1.87 x 10^3/???L; absolute monocyte count, 0.31 x 10^3/???L; absolute eosinophil count, 0.02 x 10^3/???L; and absolute basophil count, 0.01 x 10^3/???L. Review of the peripheral blood smear reveals macrocytic anemia with anisocytosis and occasional ovalocytes and teardrop cells. There is mild neutropenia with adequate lymphocytes and monocytes; few immature granulocytes are present with rare circulating immature mononuclear cells and occasional dysplastic neutrophils. Thrombocytopenia is present with no evidence of hemolysis or platelet clumping. Performed By: #### L [id number] #### [facility] ([facility]) [address] [place] [address] LAB AP CLINICAL INFORMATION Order Diagnoses Normal [facility] Comment on above: Result Comment: D61. 818 - Pancytopenia (CMS/HCC) [ICD-10-CM] Performed By: #### L [id number] #### [facility] ([facility]) [address] [place] [address] LAB AP CLOT SECTION Normal [facility] Comment on above: Result Comment: The aspirate clot section reveals adequate marrow particles. Marrow cellularity and composition are similar to that identified in the core biopsy. Performed By: #### L [id number] #### [facility] ([facility]) [address] [place] [address] LAB AP CORE BIOPSY Normal [facility] Comment on above: Result Comment: The fragmented core biopsy reveals 1.6 cm of evaluable marrow with mild aspiration artifact. Marrow cellularity approximates 90%, markedly cellular for age. There is relative erythroid hyperplasia with dysplastic morphology. Megakaryocytes appear mildly increased in number with occasional loose clusters; subset shows atypical morphology. 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 OncoHeme NGS and karyotype evaluations are pending; results will be reported in an addendum. Performed By: #### L [id number] #### [facility] ([facility]) [address] [place] [address] LAB AP FLOW CYTOMETRY SUMMARY Normal [facility] Comment on above: Result Comment: Flow cytometry studies were completed at [facility]: Bone marrow, flow cytometric immunophenotyping: - Normal immunophenotyping results. No monotypic B-cell population or increase in blasts identified. Performed By: #### L [id number] #### [facility] ([facility]) [address] [place] [address] LAB AP GROSS DESCRIPTION Normal [facility] Comment on above: Result Comment: A. B one Marrow Clot. Received in formalin is a reddish-brown blood clot measuring 3.0 x 2.2 0.2 cm. It is submitted for routine histology in one cassette. B. Bone Marrow Biopsy. Received in formalin is a hard, reddish-ortiz, cylindrical fragment of tissue measuring 2.0 x 0.2 x 0.2 cm. The specimen is submitted for decalcification and subsequent microscopy. C. Bone Marrow Aspirate. Received are multiple prepared glass slides for Cool Giemsa staining. One slide is stained for iron. Performed By: #### L [id number] #### [facility] ([facility]) [address] [place] [address] LAB AP REPORT FINAL DIAGNOSIS NARRATIVE Normal [facility] Comment on above: Result Comment: A-C. Bone marrow, aspirate smears, aspirate clot section, core biopsy and peripheral blood smear: - Hypercellular bone marrow for age with erythroid predominance and trilineage dysplasia; no increase in blasts. - Mildly increased storage iron; ring sideroblasts present (5% of erythroid precursors). - See comment. Performed By: #### L [id number] #### [facility] ([facility]) [address] [place] [address] LAB AP SPECIAL STAINS Normal [facility] Comment on above: Result Comment: Iron stains were completed on the aspirate clot section, core biopsy and aspirate smear. Storage iron is mildly increased; few ring sideroblasts are identified (5% of erythroid precursors). Performed By: #### L [id number] #### [facility] ([facility]) [address] [place] [address] CBCon 11-10-2024 ERYTHROCYTE DISTRIBUTION WIDTH (RATIO) BY AUTOMATED COUNT Normal [facility] Comment on above: Result Comment: Unab le to calculate Performed By: #### L [id number] ####[facility] ([facility])[address] [place] [address] ERYTHROCYTE MEAN CORPUSCULAR HEMOGLOBIN CONCENTRATION (G/DL) BY AUTOMATED 33.6 g/dL Normal 32.0-35.0 [facility] Comment on above: Performed By: #### L [id number] ####[facility] ([facility])[address] [place] [address] Hematocrit (Bld) [Volume fraction] 25.9 % Low 36.0-45.0 [facility] Comment on above: Performed By: #### L [id number] ####[facility] ([facility])[address] [place] [address] Hemoglobin (Bld) [Mass/Vol] 8.7 g/dL Low 12.0-15.0 [facility] Comment on above: Performed By: #### L [id number] ####[facility] ([facility])[address] [place] [address] IMMATURE PLATELET FRACTION % 7.4 % High 0.8-6.3 [facility] Comment on above: Performed By: #### L [id number] ####[facility] ([facility])[place] [address] MCH (RBC) [Entitic mass] 36.0 pg High 27.0-33.0 [facility] Comment on above: Performed By: #### L [id number] ####[facility] ([facility])[address] [place] [address] MCV (RBC) [Entitic vol] 107.0 fL High 82.0-98.0 [facility] Comment on above: Performed By: #### L [id number] ####[facility] ([facility])[address] [place] [address] PLATELETS (10*3/UL) IN BLOOD AUTOMATED COUNT 24 10*3/uL Low 150-400 [facility] Comment on above: Performed By: #### L [id number] ####[facility] ([facility])[address] [place] [address] RBC (Bld) [#/Vol] 2.42 10*6/uL Low 3.80-5.00 [facility] Comment on above: Performed By: #### L [id number] ####[facility] ([facility])[address] [place] [address] WBC (Bld) [#/Vol] 3.48 10*3/uL Low 4.00-10.60 [facility] Comment on above: Performed By: #### L [id number] ####[facility] ([facility])[address] [place] [address] CONSULTon 11-10-2024 CONSULT ------ -- Attestation signed by Юлия Starks MD at 11/10/2024 4:10 PM By using [...] Comments: Patient is a 59-year-old admitted in [place] since Wednesday with pancytopenia , mild neutropenia at 1400 and (confusion which currently is fully resolved) Patients records from [place] is currently pending Thereby the tempo of [...] high unclear if she was repleted in [place] Will add a comprehensive workup not limited to consumptive disorders, production disorders( bone marrow ) and peripheral destruction Independently with LDH elevated and haptoglobin reduced and bilirubin normal she did have Sneha which was negative,. We will expand that workup to evaluate for Sneha negative hemolysis and PNH. Ferritin was normal thereby ruling out HLH Will get scans from [place]. Will add CT of the chest Reticulocyte count added as well No evidence of schistocytes on smear and personally discussed with pathology As data unfold for recommendations will be made Patient's PT marginal and fibrinogen and PTT normal as well Patient seen for the first time today after transfer from [place] and appreciate radiology pathology hospitalists for expeditious workup which is currently underway . We will Follow along Юлия Starks MD -- HEMATOLOGY and MEDICAL ONCOLOGY: [facility] MD Dr. Юлия Mehta MD Patient name: Andreia Thomas Patient Today's Date and Time: 11/10/2024, 11:08 AM Admission Date: 11/09/2024 Impression: New onset pancytopenia Peripheral smear showed pancyopenia, LDH high, Haptoglobin low, bili was slightly elevated at [facility], normal here. Altered mental status, [...] these hours, Please contact Hematology/Oncology Fellow through [employer] first For Hematology Oncology needs on weekends and after hours, please page the on-call fellow through the hospital refining still operator. Subjective Reason for consultation / Chief complaint: Pancytopenia History of Present Illness Andreia Thomas is a 59 y.o.-year-old female with PMH of DM2, dyslipidemia, hypothyroidism and anxiety who was admitted to [facility] due to confusion and weakness for the past 4-6 weeks. Spouse at bedside reports that she had been confused ON and OFF, although she is completely alert and oriented today. CT Head at [facility] was unremarkable, CT A/P was unremarkable. She was noted to have pancytopenia with WBC 2.2, Hb 5.3 and PLT 31, for which she was transferred to [facility]. Her blood work up [...] reviewed. No pertinent surgical history. Medications: Scheduled: (more content not included)... Normal [facility] CREATININE, URINE, RANDOMon 11-10-2024 Creatinine (U) [Mass/Vol] 142.0 mg/dL Normal 26-299 [facility] Comment on above: Performed By: #### L [id number] ####[facility] ([facility])[address] [place] [address] CT CHEST W IV CONTRASTon CT CHEST W IV CONTRAST CT CHEST W IV CONTRAST CLINICAL INFORMATION: [...] Electronically signed: Yordy Brothers MD. Not Vldtd Invalid Interpretation Code [facility] FERRITINon 11-10-2024 FERRITIN (NG/ML) IN SER/PLAS 156.0 ng/mL Normal 11.0-307.0 [facility] Comment on above: Performed By: #### L [id number] ####[facility] ([facility])[address] [place] [address] FIBRINOGENon 11-10-2024 Magnesium [Mass/Vol] 259 mg/dL Normal 150-425 [facility] Comment on above: Performed By: #### L [id number] #### [facility] ([facility]) [address] [place] [address] FOLATEon 11-10-2024 FOLATE (NG/ML) IN SER/PLAS 10.24 ng/mL Normal 6.6-1000 [facility] Comment on above: Performed By: #### L [id number] #### [facility] ([facility]) [address] [place] [address] IRON AND TIBCon 11-10-2024 IRON (UG/DL) IN SER/PLAS 24 ug/dL Low 50-212 [facility] Comment on above: Performed By: #### L [id number] #### [facility] ([employer]) [address] [place] [address] IRON BINDING CAPACITY (UG/DL) IN SER/PLAS 247 ug/dL Low 250-450 [facility] Comment on above: Performed By: #### L [id number] #### [facility] ([facility]) [address] [place] [address] IRON BINDING CAPACITY.UNSATURATE D (UG/DL) IN SER/PLAS 223.0 ug/dL Normal 155.0-355.0 [facility] Comment on above: Performed By: #### L [id number] #### [facility] ([facility]) [address] [place] [address] IRON SATURATION (%) IN SER/PLAS 10 % Low 20-50 [facility] Comment on above: Performed By: #### L [id number] #### [facility] ([facility]) [address] [place] [address] LACTATE DEHYDROGENASEon 10-26 LACTATE DEHYDROGENASE (U/L) IN SER/PLAS BY LAC->PYR RXN 3489 U/L High 140-271 [facility] Comment on above: Performed By: #### L [id number] #### [facility] ([facility]) [address] [place] [address] POCT GLUCOSE METER UNSOLICIT ED RESULTSon 11-10-2024 Glucose [Mass/Vol] 156 mg/dL High 70-105 [facility] Comment on above: Order Comment: Waive d Testing in the ED is performed under the ED CLIA certificate #[id number]. Result Comment: [email or web address] Performed By: #### L [id number] ####[facility] ([facility])[address] [place] [address] Glucose [Mass/Vol] 125 mg/dL High 70-105 [facility] Comment on above: Order Comment: Waive d Testing in the ED is performed under the ED CLIA certificate #[id number]. Result Comment: [email or web address] Performed By: #### L [id number] ####[facility] ([facility])[address] [place] [address] Glucose [Mass/Vol] 105 mg/dL Normal 70-105 [facility] Comment on above: Order Comment: Waive d Testing in the ED is performed under the ED CLIA certificate #[id number]. Result Comment: [email or web address] Performed By: #### L [id number] #### [facility] ([facility]) [address] [place] [address] Glucose [Mass/Vol] 108 mg/dL High 70-105 [facility] Comment on above: Order Comment: Waive d Testing in the ED is performed under the ED CLIA certificate #[id number]. Result Comment: [email or web address] Performed By: #### L [id number] #### [facility] ([facility]) [address] [place] [address] PROTEIN, URINE, RANDOMon Protein (U) [Mass/Vol] 14.7 mg/dL Normal [facility] Comment on above: Result Comment: Ther e are no established reference values for random urine specimens. Performed By: #### L [id number] #### [facility] ([facility]) [address] [place] [address] RETICULOCYTE PANELon 025 HEMOGLOBIN (PG) IN RETICULOCYTES 37.6 pg High 28.0-36.0 [facility] Comment on above: Performed By: #### L [id number] ####[facility] ([facility])[address] [place] [address] IMMATURE RETICULOCYTE FRACTION (%) 22.4 % High - [facility] Comment on above: Performed By: #### L [id number] ####[facility] ([facility])[address] [place] [address] RETICULOCYTES (10*6/UL) IN BLOOD 0.0425 10*6/uL Normal 0.0250-0.100 0 [facility] Comment on above: Performed By: #### L [id number] ####[facility] ([facility])[address] [place] [address] Reticulocytes/100 RBC (Bld) 1.75 % Normal 0.50-1.80 [facility] Comment on above: Performed By: #### L [id number] ####[facility] ([facility])[address] [place] [address] URINALYSIS WITH REFLEX CULTU REon 11-10-2024 BILIRUBIN, TOTAL PRESENCE IN URINE Negative Normal Negative [facility] Comment on above: Order Comment: Micro scopics not performed on urines with negative chemical reactions unless requested on original order. Performed By: #### L [id number] #### [facility] ([facility]) [address] [place] [address] Clarity (U) Clear Normal Clear [facility] Comment on above: Order Comment: Micro scopics not performed on urines with negative chemical reactions unless requested on original order. Performed By: #### L [id number] #### [facility] [address] [place] [address] Color (U) Yellow Normal Colorless, Yellow, Light-Yellow [facility] Comment on above: Order Comment: Micro scopics not performed on urines with negative chemical reactions unless requested on original order. Performed By: #### L [id number] #### [facility] ([facility]) [address] [place] [address] GLUCOSE (MG/DL) IN URINE Normal Normal Normal [facility] Comment on above: Order Comment: Micro scopics not performed on urines with negative chemical reactions unless requested on original order. Performed By: #### L [id number] #### [facility] ([facility]) [address] [place] [address] HEMOGLOBIN PRESENCE IN URINE Negative Normal Negative [facility] Comment on above: Order Comment: Micro scopics not performed on urines with negative chemical reactions unless requested on original order. Performed By: #### L [id number] #### [facility] ([facility]) [address] [place] [address] Ketones Ql (U) Negative Normal Negative [facility] Comment on above: Order Comment: Micro scopics not performed on urines with negative chemical reactions unless requested on original order. Performed By: #### L [id number] #### [facility] ([facility]) [address] [place] [address] LEUKOCYTE ESTERASE PRESENCE IN URINE BY TEST STRIP Negative Normal Negative [facility] Comment on above: Order Comment: Micro scopics not performed on urines with negative chemical reactions unless requested on original order. Performed By: #### L [id number] #### [facility] ([facility]) [address] [place] [address] NITRITE PRESENCE IN URINE Negative Normal Negative [facility] Comment on above: Order Comment: Micro scopics not performed on urines with negative chemical reactions unless requested on original order. Performed By: #### L [id number] #### [facility] ([facility]) [address] [place] [address] pH (U) 6.0 [pH] Normal 5.0-8.0 [facility] Comment on above: Order Comment: Micro scopics not performed on urines with negative chemical reactions unless requested on original order. Performed By: #### L [id number] #### [facility] ([facility]) [address] [address] Protein (U) [Mass/Vol] Negative Normal Negative [facility] Comment on above: Order Comment: Micro scopics not performed on urines with negative chemical reactions unless requested on original order. Performed By: #### L [id number] #### [facility] ([facility]) [address] [address] Specific gravity (U) [Rel density] >1.050 High 1.010-1.030 [facility] Comment on above: Order Comment: Micro scopics not performed on urines with negative chemical reactions unless requested on original order. Performed By: #### L [id number] #### [facility] ([facility]) [address] [place] [address] UROBILINOGEN (MG/DL) IN URINE Normal Normal Normal [facility] Comment on above: Order Comment: Micro scopics not performed on urines with negative chemical reactions unless requested on original order. Performed By: #### L [id number] #### [facility] ([facility]) [address] [place] [address] 30on 11-09-2024 30 The patient is Moder ately Stable - Low risk of patient condition declining or worsening The patient's goals for the shift include feel better The clinical goals for the shift include Normal [facility] AMMONIAon 11-09-2024 AMMONIA (UMOL/L) IN PLASMA 31 umol/L Normal 18-72 [facility] Comment on above: Performed By: #### L [id number] ####[facility] ([facility])[address] [place] [address] ANTI C3 DATon 11-09-2024 ANTI C3 CHARLIE Negative Normal [facility] Comment on above: Performed By: #### L [id number] ####[facility], ANTI IGG DATon 11-09-2024 ANTI IGG CHARLIE Negative Normal [facility] Comment on above: Performed By: #### L [id number] #### [facility] ([facility]) [address] [place] [address] ANTIBODY IDENTIFICATIONon ANTIBODY IDENTIFICATION E Normal [facility] Comment on above: Performed By: #### L [id number] ####[facility], BLOOD CULTUREon 11-09-2024 Bacteria identified Cx Nom (Bld) No growth at 5 days Normal [facility] Comment on above: Performed By: #### L [id number] ####[facility] ([facility])[address] [place] [address] Order Comment: From a different site than #1., Blood Performed By: #### L [id number] #### [facility] ([facility]) [address] [place] [address] CBC WITH AUTO DIFFERENTIALon 11-09-2024 ERYTHROCYTE MEAN CORPUSCULAR HEMOGLOBIN CONCENTRATION (G/DL) BY AUTOMATED 33.9 g/dL Normal 32.0-35.0 [facility] Comment on above: Performed By: #### L [id number] #### [facility] ([facility]) [address] [place] [address] Hematocrit (Bld) [Volume fraction] 24.8 % Low 36.0-45.0 [facility] Comment on above: Performed By: #### L [id number] #### [facility] ([facility]) [address] [place] [address] Hemoglobin (Bld) [Mass/Vol] 8.4 g/dL Low 12.0-15.0 [facility] Comment on above: Performed By: #### L [id number] #### [facility] ([facility]) [address] [place] [address] IMMATURE PLATELET FRACTION % 8.0 % High 0.8-6.3 [facility] Comment on above: Performed By: #### L [id number] #### [facility] ([facility]) [address] [place] [address] MCH (RBC) [Entitic mass] 35.1 pg High 27.0-33.0 [facility] Comment on above: Performed By: #### L [id number] #### [facility] ([facility]) [address] [place] [address] MCV (RBC) [Entitic vol] 103.8 fL High 82.0-98.0 [facility] Comment on above: Performed By: #### L [id number] #### [facility] ([facility]) [address] [place] [address] NRBC (PER 100 WBCS) BY AUTOMATED COUNT 2.9 % High 0 [facility] Comment on above: Performed By: #### L [id number] #### [facility] ([facility]) [address] [place] [address] PLATELETS (10*3/UL) IN BLOOD AUTOMATED COUNT 26 10*3/uL Low 150-400 [facility] Comment on above: Performed By: #### L [id number] #### [facility] ([facility]) [address] [place] [address] RBC (Bld) [#/Vol] 2.39 10*6/uL Low 3.80-5.00 [facility] Comment on above: Performed By: #### L [id number] #### [facility] ([facility]) [address] [place] [address] WBC (Bld) [#/Vol] 3.49 10*3/uL Low 4.00-10.60 [facility] Comment on above: Performed By: #### L [id number] #### [facility] ([facility]) [address] [address] CK TOTAL AND CKMBon 05-15-20 25 CREATINE KINASE (U/L) IN SER/PLAS 43.0 U/L Normal 30.0-223.0 [facility] Comment on above: Performed By: #### L [id number] #### [facility] [address] [place] [address] CREATINE KINASE MB/CREATINE KINASE TOTAL BY CALCULATION 3.0 High 0.0-1.9 [facility] Comment on above: Performed By: #### L [id number] #### [facility] ([facility]) [address] [place] [address] CREATINE KINASE-MB (NG/ML) IN SER/PLAS 1.3 ng/mL Normal 0.0-5.0 [facility] Comment on above: Performed By: #### L [id number] #### [facility] [address] [place] [address] COMPREHENSIVE METABOLIC PANE Dayo 11-09-2024 Albumin [Mass/Vol] 4.0 g/dL Normal 3.5-5.7 [facility] Comment on above: Performed By: #### L [id number] #### [facility] ([facility]) [address] [place] [address] ALP [Catalytic activity/Vol] 89 U/L Normal 34-104 [facility] Comment on above: Performed By: #### L [id number] #### [facility] ([facility]) [address] [place] [address] ALT [Catalytic activity/Vol] 22 U/L Normal 7-52 [facility] Comment on above: Performed By: #### L [id number] #### [facility] ([facility]) [address] [place] [address] Anion gap [Moles/Vol] 2 mmol/L Low 7-20 [facility] Comment on above: Performed By: #### L [id number] #### [facility] [address] [place] [address] AST [Catalytic activity/Vol] 27 U/L Normal 13-39 [facility] Comment on above: Performed By: #### L [id number] #### [facility] [address] [place] [address] Bilirubin [Mass/Vol] 1.0 mg/dL Normal 0.3-1.0 [facility] Comment on above: Performed By: #### L [id number] #### [facility] [address] [place] [address] Calcium [Mass/Vol] 8.9 mg/dL Normal 8.6-10.3 [facility] Comment on above: Performed By: #### L [id number] #### [facility] ([facility]) [address] [place] [address] Chloride [Moles/Vol] 107 mmol/L Normal 98-107 [facility] Comment on above: Performed By: #### L [id number] #### [facility] ([facility]) [address] [place] [address] CO2 [Moles/Vol] 37 mmol/L High 21-31 [facility] Comment on above: Performed By: #### L [id number] #### [facility] ([facility]) [address] [place] [address] Creatinine [Mass/Vol] 0.79 mg/dL Normal 0.60-1.20 [facility] Comment on above: Performed By: #### L [id number] #### [facility] ([facility]) [address] [place] [address] GLOMERULAR FILTRATION RATE ML/MIN/1.73 SQ M.PREDICTED 85.0 mL/min/1.73m*2 Normal >60.0 [facility] Comment on above: Result Comment: [facility]???s estimated glomerular filtration rate (eGFR) will no [...] one group of individuals. Performed By: #### L [id number] #### [facility] ([facility]) [address] [place] [address] Glucose [Mass/Vol] 93 mg/dL Normal 70-100 [facility] Comment on above: Performed By: #### L [id number] #### [facility] ([facility]) [address] [place] [address] Potassium [Moles/Vol] 3.6 mmol/L Normal 3.5-5.1 [facility] Comment on above: Performed By: #### L [id number] #### [facility] ([facility]) [address] [place] [address] Protein [Mass/Vol] 5.9 g/dL Low 6.0-8.3 [facility] Comment on above: Performed By: #### L [id number] #### [facility] ([facility]) [address] [place] [address] Sodium [Moles/Vol] 142 mmol/L Normal 136-145 [facility] Comment on above: Performed By: #### L [id number] #### [facility] ([facility]) [address] [place] [address] Urea nitrogen [Mass/Vol] 23 mg/dL Normal 7-25 [facility] Comment on above: Performed By: #### L [id number] #### [facility] ([facility]) [address] [place] [address] UREA NITROGEN/CREATININE (MASS RATIO) IN SER/PLAS 29.1 Normal [facility] Comment on above: Performed By: #### L [id number] #### [facility] ([facility]) [address] [place] [address] HIGH SENSITIVITY TROPONIN Io n 11-09-2024 HS TROPONIN I (NG/L) 7 ng/L Normal <15 [facility] Comment on above: Performed By: #### L [id number] ####[facility] ([facility])[address] [place] [address] LACTIC ACID, PLASMAon 2024 LACTATE (MMOL/L) IN SER/PLAS 0.7 mmol/L Normal 0.5-2.2 [facility] Comment on above: Performed By: #### L [id number] #### [facility] ([facility]) [address] [place] [address] MAGNESIUMon 11-09-2024 Magnesium [Mass/Vol] 1.9 mg/dL Normal 1.9-2.7 [facility] Comment on above: Performed By: #### L [id number] #### [facility] ([facility]) [address] [place] [address] MANUAL DIFFERENTIALon 2024 ANISOCYTOSIS PRESENCE IN BLOOD BY LIGHT MICROSCOPY Moderate Normal [facility] Comment on above: Performed By: #### L [id number] #### [facility] ([facility]) [address] [place] [address] BASOPHILS (10*3/UL) IN BLOOD BY CALCULATION 0.01 10*3/uL Normal 0.00-0.20 [facility] Comment on above: Performed By: #### L [id number] #### [facility] ([facility]) [address] [place] [address] BASOPHILS/100 LEUKOCYTES IN BLOOD BY AUTOMATED COUNT 0.3 % Normal 0.0-1.0 [facility] Comment on above: Performed By: #### L [id number] #### [facility] ([facility]) [address] [place] [address] EOSINOPHILS (10*3/UL) IN BLOOD BY CALCULATION 0.00 10*3/uL Normal 0.00-0.50 [facility] Comment on above: Performed By: #### L [id number] #### [facility] ([facility]) [address] [place] [address] EOSINOPHILS/100 LEUKOCYTES IN BLOOD BY AUTOMATED COUNT 0.0 % Normal 0.0-6.0 [facility] Comment on above: Performed By: #### L [id number] #### [facility] ([facility]) [address] [place] [address] IMMATURE GRANULOCYTES (10*3/UL) IN BLOOD BY CALCULATION 0.12 10*3/uL Normal 0.00-0.20 [facility] Comment on above: Performed By: #### L [id number] #### [facility] ([facility]) [address] [place] [address] IMMATURE GRANULOCYTES/100 LEUKOCYTES IN BLOOD BY AUTOMATED COUNT 3.4 % High 0.0-1.0 [facility] Comment on above: Performed By: #### L [id number] #### [facility] ([facility]) [address] [place] [address] LYMPHOCYTES (10*3/UL) IN BLOOD BY CALCULATION 1.63 10*3/uL Normal 1.20-4.00 [facility] Comment on above: Performed By: #### L [id number] #### [facility] ([facility]) [address] [place] [address] LYMPHOCYTES/100 LEUKOCYTES IN BLOOD BY AUTOMATED COUNT 46.7 % High 20.0-45.0 [facility] Comment on above: Performed By: #### L [id number] #### [facility] ([facility]) [address] [place] [address] MONOCYTES (10*3/UL) IN BLOOD BY CALCUATION 0.29 10*3/uL Normal 0.10-1.00 [facility] Comment on above: Performed By: #### L [id number] #### [facility] ([facility]) [address] [place] [address] MONOCYTES/100 LEUKOCYTES IN BLOOD BY AUTOMATED COUNT 8.3 % Normal 5.0-12.0 [facility] Comment on above: Performed By: #### L [id number] #### [facility] ([facility]) [address] [place] [address] NEUTROPHILS (10*3/UL) IN BLOOD BY CALCULATION 1.4 10*3/uL Low 1.6-7.6 [facility] Comment on above: Performed By: #### L [id number] #### [facility] ([facility]) [address] [place] [address] NEUTROPHILS/100 LEUKOCYTES IN BLOOD BY AUTOMATED COUNT 41.3 % Normal 40.0-72.0 [facility] Comment on above: Performed By: #### L [id number] #### [facility] ([facility]) [address] [place] [address] POIKILOCYTOSIS (PRESENCE) IN BLOOD BY LIGHT MICROSCOPY Slight Normal [facility] Comment on above: Performed By: #### L [id number] #### [facility] ([facility]) [address] [place] [address] POLYCHROMASIA IN BLOOD BY LIGHT MICROSCOPY Slight Normal [facility] Comment on above: Performed By: #### L [id number] #### [facility] ([facility]) [address] [place] [address] PHOSPHORUSon 11-09-2024 Magnesium [Mass/Vol] 2.9 mg/dL Normal 2.5-5.0 [facility] Comment on above: Performed By: #### L [id number] #### [facility] ([facility]) [address] [place] [address] POCT GLUCOSE METER UNSOLICIT ED RESULTSon 11-09-2024 Glucose [Mass/Vol] 156 mg/dL High 70-105 [facility] Comment on above: Order Comment: Waive d Testing in the ED is performed under the ED CLIA certificate #[id number]. Result Comment: judy pedro Performed By: #### L [id number] #### [facility] ([facility]) [address] [place] [address] PROTIME-INRon 11-09-2024 INR IN PPP BY COAGULATION ASSAY 1.20 High 0.90-1.10 [facility] Comment on above: Result Comment: ACCC P RECOMMENDED INR FOR WARFARIN THERAPY CONDITION INR [...] THERAPEUTIC RANGE. CHEST 1995;108:231S-246S. Performed By: #### L [id number] #### [facility] ([employer]) [address] [place] [address] PROTHROMBIN TIME (PT) IN PPP BY COAGULATION ASSAY 15.1 Seconds High 12.3-14.8 [facility] Comment on above: Performed By: #### L [id number] #### [facility] ([facility]) [address] [place] [address] Pathology study report docum entOrdered By: Prema Hook on 11-09-2024 Pathology study [facility] Other T4, FREEon 11-09-2024 THYROXINE (T4) FREE (NG/DL) IN SER/PLAS 1.41 ng/dL Normal 0.71-1.85 [facility] Comment on above: Performed By: #### L [id number] #### [facility] ([facility]) [address] [place] [address] TSH3 REFLEX TO FT4on 025 THYROTROPIN (MIU/L) IN SER/PLAS BY DETECTION LIMIT <= 0.05 MIU/L 0.13 mIU/L Low 0.34-5.60 [facility] Comment on above: Performed By: #### L [id number] #### [facility] ([facility]) [address] [place] [address] TYPE AND SCREENon 11-09-2024 AB SCREEN Positive Normal [facility] Comment on above: Performed By: #### L [id number] ####[facility], ABO group Nom (Bld) O Normal [facility] Comment on above: Performed By: #### L [id number] ####[facility], RH TYPE IN BLOOD Positive [facility] Comment on above: Performed By: #### L [id number] ####[facility], VENOUS BLOOD GAS WITH IONIZE D CALCIUMon 11-09-2024 Base excess Calc (BldV) [Moles/Vol] 4.2 mmol/L Normal [facility] Comment on above: Performed By: #### L [id number] #### [facility] ([facility]ER) [address] [place] [address] CALCIUM IONIZED (MMOL/L) IN BLOOD 1.24 mmol/L Normal 1.15-1.33 [facility] Comment on above: Performed By: #### L [id number] #### [facility] ([facility]ER) [address] [place] [address] CO2 (BldV) [Partial pressure] 44 mm[Hg] Normal 40-50 [facility] Comment on above: Performed By: #### L [id number] #### [facility] ([facility]ER) [address] [place] [address] HCO3 (Bld) [Moles/Vol] 29.2 mmol/L Normal [facility] Comment on above: Performed By: #### L [id number] #### [facility] ([facility]AKER) [address] [place] [address] Oxygen (BldV) [Partial pressure] 45 mm[Hg] Normal 35-45 [facility] Comment on above: Performed By: #### L [id number] #### [facility] ([facility]AKER) [address] [place] [address] OXYGEN SATURATION (%) IN VENOUS BLOOD 75.0 % Normal 65.0-75.0 [facility] Comment on above: Performed By: #### L [id number] #### [facility] (BEAKER) [address] [place] [address] PH OF VENOUS BLOOD 7.43 High 7.31-7.41 [facility] Comment on above: Performed By: #### L [id number] #### [facility] (BEAKER) [address] [place] [address] VITAMIN B12on 11-09-2024 Cobalamin (Vitamin B12) [Mass/Vol] 1113 pg/mL High 180-914 [facility] Comment on above: Result Comment: REFE RENCE RANGES: 180-914 pg/mL Normal 145-179 pg/mL Indeterminate <145 pg/mL Deficient Performed By: #### L [id number] #### [facility] (BEAKER) [address] [place] [address] VITAMIN D 25 HYDROXYon 11-09 CALCIDIOL (25 [place] VITAMIN D3) (NG/ML) IN SER/PLAS 10.2 ng/mL Low 30.0-80.0 [facility] Comment on above: Result Comment: >80. 0 Toxicity possible Performed By: #### L [id number] #### [facility] ([employer]) [address] [place] [address] [facility] 11-07-2024 L ------ Specimen: [id number] Received: 11/09/24 Status: DEZ Jackson Num: [id number] Spec Type: Impression Subm Dr: Kaitlyn Joy MD Tissues: PATHPER Procedures: PATHREVIEW Age/ Patient Sex Location Account Attending Physician Jose RobertoSelinaadair Lozoya 59/F [place] [id number] Kaitlyn Joy MD SPEC NUM: [id number] RECD: 11/09/24 STATUS: DEZ TEN NUM: [id number] ROWENA: 11/07/[address] [facility] DR: Kaitlyn Joy MD ENTERED: 11/09/[address] [facility] [address]: Joselyn Pantoja MD SPEC TYPE: Impression DEPT: RAUL Villalpando ENTERED BY: [id number] RECV BY: [id number] ORDERED: PATHREVIEW ORDERED: PATHREVIEW Pathologist Review Abnormal [...] group, excluding possibility of the aging related Specimen: [id number] Received: 11/09/24 Status: DEZ Jackson Num: [id number] Spec Type: Impression Subm Dr: Kaitlyn Joy MD Tissues: PATHPER Procedures: PATHREVIEW Patient: Andreia Thomas [id number] (Continued) Specimen: [id number] Received: 11/09/24 (Continued) Pathologist Review (Continued) Signed (signature on file) Prema Hook MD 11/09/24 1025 Specimen: [id number] Received: 11/09/24 Status: DEZ Jackson Num: [id number] Spec Type: Impression Subm Dr: Kaitlyn Joy MD Tissues: PATHPER Procedures: PATHREVIEW Patient: Andreia Thomas [id number] (Continued) Specimen: [id number] Received: 11/09/24 (Continued) Pathologist Review (Continued) effect. Continuous clinical and etiological correlation for the cause of marrow suppression, appropriate supportive medical management, and CBC laboratory follow-ups are also suggested. CPT 58496. Specimen: [id number] Received: 11/09/243426 Status: DEZ Jackson Num: [id number] Spec Type: Impression Subm Dr: Kaitlyn Joy MD Tissues: PATHPER Procedures: PATHREVIEW Patient: Andreia Thomas [id number] (Continued) Signed (signature on file) Prema Hook MD 11/09/24 1025 [facility] Urine Cultureon 11-07-2024 Bacteria identified Cx Nom (U) ORGANISM: Escherichia coli (O:ESCCOL) [place] Count >100,000 Aerobic ILIA Charge ([id number]) SUSCEPTIBILITY [...] <4 Tigecycline S <2 Tobramycin S <2 Trimethoprim/Sulfamethoxaz ole S <0.5 S = SUSCEPTIBLE I = INTERMEDIATE R = RESISTANT BLANK = DATA NOT AVAILABLE, OR DRUG NOT ADVISABLE OR TESTED R* = RESISTANCE DUE TO EXTENDED SPECTRUM BETA-LACTAMASES ESBL = EXTENDED SPECTRUM BETA-LACTAMASE TFG = THYMIDINE-DEPENDENT STRAIN ACDEN = BETA-LACTAMASE POSITIVE IB = INDUCIBLE BETA-LACTAMASE. APPEARS IN PLACE OF 'S' WITH SPECIES KNOWN TO POSSESS INDUCIBLE BETA-LACTAMASES. POTENTIALLY THEY MAY BECOME RESISTANT TO ALL B-LACTAM DRUGS. PERFORMED BY: [place] [address] PATHOLOGIST SKI PATROL SOLANGE HAMMOND M.D. Normal [facility] Comment on above: Performed By: #### C UU #### [address] Ambulatory Visit Summaryon 0 10-31-2024 Ambulatory Visit Summary Ambulatory Visit Summary ANDREIA THOMAS :1965 Visit Date:10/31/2024 Ambulatory Visit Instructions Your Diagnosis Elevated alkaline phosphatase level Thrombocytopenia Blood loss anemia Abdominal pain Nausea Epigastric pain Early satiety Heartburn History of pancreatitis Gastropathy Your Care Team Attending Physician - Parvin LAND, Roseline Chase Primary Care Physician - Kaitlyn Joy MD This Is Your Medications List citalopram [...] EDT With: Parvin LAND, Roseline Chase Where: [place] [phone] Medications What How Much When Why Instructions New esomeprazole (Nexium 40 mg Cap-EC) 1 Capsules By Mouth Every day Elevated alkaline phosphatase level Cirrhosis Thrombocytopenia Blood loss anemia Abdominal pain Nausea Epigastric pain Early satiety Heartburn History of pancreatitis Refills: 8 Pickup at [id number] Changed sucralfate (Carafate 1 g/ 10 mL Susp-Oral) 10 Milliliter By Mouth 4 times a day Elevated alkaline phosphatase level Cirrhosis Thrombocytopenia Blood loss anemia Abdominal pain Nausea Epigastric pain Early satiety Heartburn History of pancreatitis Duration: 14 Days Pickup at [facility] #[id number] Changed sucralfate (Carafate 1 gram Tab) 1 [...] Once a day (at bedtime) Pharmacy Information [facility] #[id number]: [address] [place], [place] [id number] [phone] Allergies Bactrim (Flu-like symptoms) Zocor (Unknown) simvastatin [...] for choosing us for your care. Normal [facility] Gastroenterology Office/Clin ic Noteon 10-31-2024 Gastroenterology Office/Clinic Note Gastroenterology Office/Clinic Note Chief Complaint f/u EGD, labs HPI Staff This is a 59 year old female who presents today for a follow up to EGD. Continues to have same symptoms as previous visit. Last office visit w/ Dr Melendrez History of Present Illness Patient continues to have pain in the epigastric area Just got blood work at [facility] and showed platelet count of 73 Other [...] fL High (10/27/24) Chloride: 105 mmol/L (10/27/24) Marin Absolute: 0.1 E9/L Low (10/27/24) CO2: 31 mmol/L (10/27/24) [place] Auto: 2 % Low (10/27/24) Creatinine: 0.6 [...] have reviewed HPI staff note, most recent la (more content not included)... Normal [facility] Comment on above: Result Comment: Elec tronically Signed By: Parvin LAND, Roseline Chase\.br\Date and Time Signed: 10/31/24 13:37 EDT .Interpretation:on HCV Ab IA Ql Comment Invalid Interpretation Code [facility] Comment on above: Result Comment: Not infected with HCV unless early or acute infection is suspected (which may be delayed in an immunocompromised individual), or other evidence exists to indicate HCV infection. Performed at: [facility] [address] [place], [place] [id number] [phone] PhD Jean Schmidt Performed By: #### 2 [id number] #### [facility] [address] [place] [address] AFPon 10-30-2024 AFP.tumor marker [Mass/Vol] 3.6 ng/mL Invalid Interpretation Code 0.0-9.2 [facility] Comment on above: Result Comment: [employer] Electrochemiluminescence Immunoassay (ECLIA) Values obtained with different assay methods or kits cannot be used interchangeably. Results cannot be interpreted as absolute evidence of the presence or absence of malignant disease. This test is not interpretable in females. Performed at: [address] [id number] [id number] PhD Jean Schmidt Performed By: #### 2 [id number] #### [facility] [address] [place] [address] AMA Ab Scron 10-30-2024 Mitochondria M2 IgG Qn (S) <20.0 Invalid Interpretation Code 0.0-20.0 [facility] Comment on above: Result Comment: Nega tive 0.0 - 20.0 Equivocal 20.1 - 24.9 Positive >24.9 Mitochondrial (M2) Antibodies are found in 90-96% of patients with primary biliary cirrhosis. Performed at: [address] [id number] [id number] PhD Jean Schmidt Performed By: #### 1 [id number] #### [facility] [address] [place] [address] CIPRIANO w/Reflex if POSon 2024 Nuclear Ab Ql (S) Negative Invalid Interpretation Code Negative [facility] Comment on above: Result Comment: Perf ormed at: [address] [id number] [id number] PhD Jean Schmidt Performed By: #### 1 [id number] #### [facility] [address] [place] [address] Acute Hepatitis A B C Panelo n 10-30-2024 HAV IgM IA Ql Negative Invalid Interpretation Code Negative [facility] Comment on above: Result Comment: A ne gative anti-HAV IgM result suggests no recent or current HAV infection. Performed By: #### 3 [id number] #### [facility] [address] [place] [address] HBV core IgM IA Ql Negative Invalid Interpretation Code Negative [facility] Comment on above: Performed By: #### 3 [id number] #### [facility] [address] [place], [place] [id number] HBV surface Ag IA Ql Negative Invalid Interpretation Code Negative [facility] Comment on above: Performed By: #### 3 [id number] #### [facility] [address] [place] [address] HCV Ab IA Ql Non-Reactive Invalid Interpretation Code Non Reactive [facility] Comment on above: Result Comment: Perf ormed at: [address] [id number] PhD Jean Schmidt Performed By: #### 3 [id number] #### [facility] [address] [place] [address] Alk Phos Isoson 10-30-2024 ALP [Catalytic activity/Vol] 104 Int._Unit/L Invalid Interpretation Code 44-121 [facility] Comment on above: Performed By: #### 1 [id number] #### [facility] [address] [place] [address] ALP Bone [Catalytic fraction] 28 % Invalid Interpretation Code 14 [facility] Comment on above: Performed By: #### 1 [id number] #### [facility] [address] [place] [address] ALP Intest [Catalytic fraction] 0 % Invalid Interpretation Code 0-18 [facility] Comment on above: Result Comment: Perf ormed at: [address] [id number] [id number] PhD Jean Schmidt Performed By: #### 1 [id number] #### [facility] [address] [place] [address] ALP Liver [Catalytic fraction] 72 % Invalid Interpretation Code 18 [facility] Comment on above: Performed By: #### 1 [id number] #### [facility] [address] [place] [address] Alpha 1 Antitrpon 10-30-2024 Alpha 1 antitrypsin [Mass/Vol] 219 mg/dL High 101-187 [facility] Comment on above: Result Comment: Perf ormed at: [place] [id number] [place], [place] [id number] PhD Jean Schmidt Performed By: #### 1 [id number] #### [facility] [address] [place] [address] Ceruloplasminon 10-30-2024 Ceruloplasmin [Mass/Vol] 36.3 mg/dL Invalid Interpretation Code 19.0-39.0 [facility] Comment on above: Result Comment: Perf ormed at: [address] [id number] PhD Jean Schmidt Performed By: #### 1 [id number] #### [facility] [address] [place] [address] Hep Bs Abon 10-30-2024 HBV surface Ab Ql (S) Non-Reactive Invalid Interpretation Code [facility] Comment on above: Result Comment: Non Reactive: Not immune to HBV infection. Equivocal: Unable to determine if anti-HBs is present at levels consistent with immunity. Reactive: Anti-HBs concentration detected at greater than 10 mIU/mL. Individual is considered to be immune to infection with HBV. Performed at: [address] [id number] [id number] PhD Jean Tangreyna Performed By: #### 2 [id number] #### [facility] [address] [place] [address] Hepatitis A Virus (HAV) Anti body, Totalon 10-30-2024 HAV Ab IA Ql (S) Negative Invalid Interpretation Code Negative [facility] Comment on above: Result Comment: Comm ent: The HAV total antibody assay detects both IgG and IgM but does not differentiate between them. A negative result suggests susceptibility to infection. A positive result could be due to vaccination, previously resolved infection or active infection. Testing for HAV IgM should be performed if active HAV infection is suspected. [facility] offers profiles that will automatically reflex positive HAV total antibody results to IgM (e.g., panel #[id number] HAV Antibody w/ Rfx). Performed at: [address] [id number] [id number] PhD Jean Schmidt Performed By: #### 1 [id number] #### [facility] [address] [place] [address] IgA, Quant.on 10-30-2024 IgA [Mass/Vol] 118 mg/dL Invalid Interpretation Code 87-352 [facility] Comment on above: Result Comment: Perf ormed at: [address] [id number] PhD Jean Schmidt Performed By: #### 1 [id number] #### [facility] [address] [place] [address] IgG, Quant.on 10-30-2024 IgG [Mass/Vol] 652 mg/dL Invalid Interpretation Code 586-6682 [facility] Comment on above: Result Comment: Perf ormed at: [address] [id number] [id number] PhD Jean Schmidt Performed By: #### 1 [id number] #### [facility] [address] [place] [address] Smooth Muscle Abon 5 Actin smooth muscle IgG Qn (S) 19 unit(s) Invalid Interpretation Code 0-19 [facility] Comment on above: Result Comment: Nega tive 0 - 19 Weak positive 20 - 30 Moderate to strong positive >30 Actin Antibodies are found in 52-85% of patients with autoimmune hepatitis or chronic active hepatitis and in 22% of patients with primary biliary cirrhosis. Performed at: [address] [id number] [phone] PhD Jean Schmidt Performed By: #### 1 [id number] #### [facility] [address] [place] [address] T-TG IGAon 10-30-2024 tTG IgA Qn (S) <2 Invalid Interpretation Code 0-3 [facility] Comment on above: Result Comment: Nega tive 0 - 3 Weak Positive 4 - 10 Positive >10 Tissue Transglutaminase (tTG) has been identified as the endomysial antigen. Studies have demonstr- ated that endomysial IgA antibodies have over 99% specificity for gluten sensitive enteropathy. Performed at: [address] [place] [id number] [id number] PhD Jean Schmidt Performed By: #### 1 [id number] #### [facility] [address] [place] [address] WRITTEN AUTHORIZATIONon Written Authorization Comment Invalid Interpretation Code [facility] Comment on above: Result Comment: Writ ten Authorization Received. Authorization received from [facility] DATA 10-30-2024 Logged by Kateryna Bowser Performed at: [facility] [place] [id number] [place], [place] [id number] [id number] PhD Jean Schmidt Performed By: #### 3 [id number] #### [facility] [address] [place] [address] CBC w/ Auto Diffon Anisocytosis Ql (Bld) PRESENT Invalid Interpretation Code [facility] Comment on above: Performed By: #### 2 [id number] #### [facility] [address] [place] [address] Basophils/100 WBC (Bld) 0.4 % Normal 0.0-2.0 [facility] Comment on above: Performed By: #### 2 [id number] #### [facility] [address] [place] [address] Basophils/Leukocyte s Auto (Bld) [Pure # fraction] 0.0 E9/L Normal 0.0-0.2 [facility] Comment on above: Performed By: #### 2 [id number] #### [facility] [address] [place] [address] Eosinophils (Bld) [#/Vol] 0.0 E9/L Normal 0.0-0.5 [facility] Comment on above: Performed By: #### 2 [id number] #### [facility] [address] [place] [address] Eosinophils/100 WBC (Bld) 1.1 % Normal 0.0-8.0 [facility] Comment on above: Performed By: #### 2 [id number] #### [facility] [address] [place] [address] Erythrocyte distribution width (RBC) [Ratio] 14.9 % High 10.9-14.2 [facility] Comment on above: Performed By: #### 2 [id number] #### [facility] [address] [place] [address] Hematocrit (Bld) [Volume fraction] 21.8 % Low 34.0-46.0 [facility] Comment on above: Performed By: #### 2 [id number] #### [facility] [address] [place] [address] Hemoglobin (Bld) [Mass/Vol] 7.5 g/dL Low 12.0-16.0 [facility] Comment on above: Performed By: #### 2 [id number] #### [facility] [address] [place] [address] Hypochromia Auto Ql (Bld) PRESENT Invalid Interpretation Code [facility] Comment on above: Performed By: #### 2 [id number] #### [facility] [address] [place] [address] Lymphocytes (Bld) [#/Vol] 0.8 E9/L Low 1.0-4.0 [facility] Comment on above: Performed By: #### 2 [id number] #### [facility] [address] [place] [address] Lymphocytes/100 WBC (Bld) 27.9 % Normal 14.0-50.0 [facility] Comment on above: Performed By: #### 2 [id number] #### [facility] [address] [place] [address] MCH (RBC) [Entitic mass] 43.0 pg High 27.0-34.0 [facility] Comment on above: Performed By: #### 2 [id number] #### [facility] [address] [place] [address] MCHC (RBC) [Mass/Vol] 34.5 g/dL Normal 31.4-36.0 [facility] Comment on above: Performed By: #### 2 [id number] #### [facility] [address] [place] [address] MCV (RBC) [Entitic vol] 124.6 fL High 80.0-100.0 [facility] Comment on above: Performed By: #### 2 [id number] #### [facility] [address] [place] [address] Microcytes Ql (Bld) PRESENT Invalid Interpretation Code [facility] Comment on above: Performed By: #### 2 [id number] #### [facility] [address] [place] [address] Monocytes (Bld) [#/Vol] 0.1 E9/L Low 0.2-1.0 [facility] Comment on above: Performed By: #### 2 [id number] #### [facility] [address] [place] [address] Neutrophils (Bld) [#/Vol] 2.0 E9/L Normal 2.0-7.5 [facility] Comment on above: Performed By: #### 2 [id number] #### [facility] [address] [place] [address] Neutrophils/100 WBC (Bld) 68.6 % Normal 36.0-75.0 [facility] Comment on above: Performed By: #### 2 [id number] #### [facility] [address] [place] [address] Ovalocytes LM Ql (Bld) PRESENT Invalid Interpretation Code [facility] Comment on above: Performed By: #### 2 [id number] #### [facility] [address] [place] [address] Platelet mean volume (Bld) [Entitic vol] 8.2 fL Normal 6.4-10.8 [facility] Comment on above: Performed By: #### 2 [id number] #### [facility] [address] [place] [address] Platelets (Bld) [#/Vol] 60.0 E9/L Low 150.0-500.0 [facility] Comment on above: Performed By: #### 2 [id number] #### [facility] [address] [place] [address] Polychromasia LM Ql (Bld) PRESENT Invalid Interpretation Code [facility] Comment on above: Performed By: #### 2 [id number] #### [facility] [address] [place] [address] RBC (Bld) [#/Vol] 1.8 E12/L Low 4.3-5.9 [facility] Comment on above: Performed By: #### 2 [id number] #### [facility] [address] [place] [address] RBC size Nom (Bld) SEE MORPHOLOGY Invalid Interpretation Code [facility] Comment on above: Performed By: #### 2 [id number] #### [facility] [address] [place] [address] WBC corrected for nucl RBC Auto (Bld) [#/Vol] 2.9 E9/L Low 4.0-11.0 [facility] Comment on above: Performed By: #### 2 488991 #### [facility] [address] [place] [address] CHEMISTRYOrdered By: SYSTEM SYSTEM on 10-27-2024 25-hydroxyvitamin D3 [Mass/Vol] 9.6 ng/mL Low 30.0 - 100.0 ng/mL Remisol Chem Albumin [Mass/Vol] 4.6 g/dL Normal 3.3 - 5.0 gm/dL Remisol Chem Albumin/Globulin [Mass ratio] 2.1 {ratio} Normal 1.1 - 2.2 Remisol Chem ALP [Catalytic activity/Vol] 85 [iU]/d Normal 21 - 98 Int._Unit/L Remisol Chem ALT No additional P-5'-P [Catalytic activity/Vol] 38 [iU]/d Normal 6 - 46 Int._Unit/L [facility] Chem Anion gap [Moles/Vol] 9 mmol/L Normal 6 - 16 mEq/L [facility] Chem AST [Catalytic activity/Vol] 59 [iU]/d High 5 - 43 Int._Unit/L [facility] Chem Bilirubin [Mass/Vol] 1.6 mg/dL High 0.0 - 1.1 mg/dL [facility] Chem Calcium [Mass/Vol] 9.3 mg/dL Normal 8.9 - 11. 1 mg/dL [facility] Chem Chloride [Moles/Vol] 105 mmol/L Normal 101 - 111 mmol/L [facility] Chem CO2 [Moles/Vol] 31 mmol/L Normal 21 - 31 mmol/L [facility] Chem Creatinine [Mass/Vol] 0.6 mg/dL Normal 0.5 - 1.3 mg/dL Rem[facility] Chem eGFR 102 mL/min/1.73 m2 Normal >=59mL/mi n/1 .73 m2 [facility] Chem Globulin (S) [Mass/Vol] 2.2 g/dL Normal 1.4 - 4.0 gm/dL [facility] Chem Glucose [Mass/Vol] 103 mg/dL Normal 55 - 199 mg/dL [facility] Chem Iron [Mass/Vol] 127 ug/dL Normal 35 - 153 mcg/dL [facility] Chem Iron binding capacity [Mass/Vol] 301 ug/dL Normal 250 - 400 mcg/dL [facility] Chem Potassium [Moles/Vol] 3.5 mmol/L Normal 3.5 - 5.3 mmol/L Remisol Chem Protein [Mass/Vol] 6.8 g/dL Normal 6.0 - 7.8 gm/dL [facility] Chem Sodium [Moles/Vol] 141 mmol/L Normal 135 - 145 mmol/L [facility] Chem Transferrin [Mass/Vol] 215 mg/dL Normal 200 - 370 mg/dL [facility] Urea nitrogen [Mass/Vol] 16 mg/dL Normal 5 - 21 mg/dL [facility] Chem Urea nitrogen/Creatinine [Mass ratio] 27 mg/mg High 10 - 20 Remisol Chem CMPon 10-27-2024 Albumin [Mass/Vol] 4.6 g/dL Normal 3.3-5.0 [facility] Comment on above: Performed By: #### 2 [id number] #### [facility] [address] [place] [address] Albumin/Globulin (S) [Mass conc ratio] 2.1 Normal 1.1-2.2 [facility] Comment on above: Performed By: #### 2 [id number] #### [facility] [address] [place] [address] ALP [Catalytic activity/Vol] 85 Int._Unit/L Normal 21-98 [facility] Comment on above: Performed By: #### 2 [id number] #### [facility] [address] [place] [address] ALT No additional P-5'-P [Catalytic activity/Vol] 38 Int._Unit/L Normal 6-46 [facility] Comment on above: Performed By: #### 2 [id number] #### [facility] [address] [place] [address] Anion gap [Moles/Vol] 9 mmol/L Normal 6-16 [facility] Comment on above: Performed By: #### 2 [id number] #### [facility] [address] [place] [address] AST [Catalytic activity/Vol] 59 Int._Unit/L High 5-43 [facility] Comment on above: Performed By: #### 2 [id number] #### [facility] [address] [place] [address] Bilirubin [Mass/Vol] 1.6 mg/dL High 0.0-1.1 [facility] Comment on above: Performed By: #### 2 115330 #### [facility] [address] [place] [address] Calcium [Mass/Vol] 9.3 mg/dL Normal 8.9-11.1 [facility] Comment on above: Performed By: #### 2 [id number] #### [facility] [address] [place] [address] Chloride [Moles/Vol] 105 mmol/L Normal 101-111 [facility] Comment on above: Performed By: #### 2 [id number] #### [facility] [address] [place] [address] CO2 [Moles/Vol] 31 mmol/L Normal 21-31 [facility] Comment on above: Performed By: #### 2 [id number] #### [facility] [address] [place] [address] Creatinine [Mass/Vol] 0.6 mg/dL Normal 0.5-1.3 [facility] Comment on above: Performed By: #### 2 [id number] #### [facility] [address] [place] [address] Globulin (S) [Mass/Vol] 2.2 g/dL Normal 1.4-4.0 [facility] Comment on above: Performed By: #### 2 [id number] #### [facility] [address] [place] [address] Glucose [Mass/Vol] 103 mg/dL Normal 55-199 [facility] Comment on above: Performed By: #### 2 [id number] #### [facility] [address] [place] [address] Potassium [Moles/Vol] 3.5 mmol/L Normal 3.5-5.3 [facility] Comment on above: Performed By: #### 2 [id number] #### [facility] [address] [place] [address] Protein [Mass/Vol] 6.8 g/dL Normal 6.0-7.8 [facility] Comment on above: Performed By: #### 2 [id number] #### [facility] [address] [place] [address] Sodium [Moles/Vol] 141 mmol/L Normal 135-145 [facility] Comment on above: Performed By: #### 2 038106 #### [facility] [address] [place] [address] Urea nitrogen [Mass/Vol] 16 mg/dL Normal 5-21 [facility] Comment on above: Performed By: #### 2 [id number] #### [facility] [address] [place] [address] Urea nitrogen/Creatinine [Mass ratio] 27 No Units High 10-20 [facility] Comment on above: Performed By: #### 2 [id number] #### [facility] [address] [place] [address] COAGULATIONOrdered By: Micah Jaeger on 10-27-2024 INR Coag (PPP) [Relative time] 1.23 {INR} Invalid Interpretation Code [facility] [place] [facility] Auto Coag Comment on above: Interpretive Data: I NR results are specifically intended to assess patients stabilized on long-term Anticoagulation therapy suggested INR s Less Intensive Anticoagulation 2.0 3.0 Conventional Range 3.0 4.5 PT Coag (PPP) [Time] 13.8 s High 9.4 - 12.5 second(s) [facility] [place] Auto Coag Comment on above: Interpretive Data: 1 5 days - 4 weeks 1 - 5 months 6 -11 months 1 5 years 6 10 years 11 -17 years Mean: 11.2 (9.5 12.6) Mean: 11.0 (9.7 12.8) Mean: 11.0 (9.8 13.0) Mean: 11.3 (9.9 13.4) Mean: 11.7 (10.0 14.6) Mean: 11.8 (10.0 - 14.1) Pediatric Reference ranges were obtained from a study by kelsea Cazares al. prepared from 1437 samples obtained at 7 different centers using the same coagulation reagent and instrumentation as [facility] [place]. Currently there are no coagulation studies available worldwide for children to 14 days, and no normal ranges. HEMATOLOGYOrdered By: SYSTEM SYSTEM on 10-27-2024 Anisocytosis Ql (Bld) PRESENT *NA* (10/27/24 9:23 AM) Invalid Interpretation Code Remisol Heme Basophils/100 WBC (Bld) 0.4 % Normal 0.0 - 2.0 % [facility] Heme Basophils/Leukocyte s Auto (Bld) [Pure # fraction] 0.0 E9/L Normal 0.0 - 0.2 E9/L [facility] Eosinophils (Bld) [#/Vol] 0.0 E9/L Normal 0.0 - 0.5 E9/L [facility] Eosinophils/100 WBC (Bld) 1.1 % Normal 0.0 - 8.0 % [facility] Erythrocyte distribution width (RBC) [Ratio] 14.9 % High 10.9 - 14.2 % [facility] Hematocrit (Bld) [Volume fraction] 21.8 % Low 34.0 - 46.0 % [facility] Hemoglobin (Bld) [Mass/Vol] 7.5 g/dL Low 12.0 - 16.0 gm/dL [facility] Hypochromia Auto Ql (Bld) PRESENT *NA* (10/27/24 9:23 AM) Invalid Interpretation Code [facility] Lymphocytes (Bld) [#/Vol] 0.8 E9/L Low 1.0 - 4.0 E9/L [facility] Lymphocytes/100 WBC (Bld) 27.9 % Normal 14.0 - 50.0 % [facility] MCH (RBC) [Entitic mass] 43.0 pg High 27.0 - 34.0 pg Rem[facility] Heme MCHC (RBC) [Mass/Vol] 34.5 g/dL Normal 31.4 - 36.0 gm/dL [facility] MCV (RBC) [Entitic vol] 124.6 fL High 80.0 - 100.0 fL [facility] Microcytes Ql (Bld) PRESENT *NA* (10/27/24 9:23 AM) Invalid Interpretation Code [facility] Monocytes (Bld) [#/Vol] 0.1 E9/L Low 0.2 - 1.0 E9/L [facility] Monocytes/100 WBC (Bld) 2.0 % Low 4.0 - 14.0 % [facility] Hem[facility] Neutrophils (Bld) [#/Vol] 2.0 E9/L Normal 2.0 - 7.5 E9/L [facility] Heme Neutrophils/100 WBC (Bld) 68.6 % Normal 36.0 - 75.0 % [facility] Heme Ovalocytes LM Ql (Bld) PRESENT *NA* (10/27/24 9:23 AM) Invalid Interpretation Code [facility]e Platelet mean volume (Bld) [Entitic vol] 8.2 fL Normal 6.4 - 10.8 fL [facility] Platelets (Bld) [#/Vol] 60.0 E9/L Low 150.0 - 500.0 E9/L [facility] Heme Polychromasia LM Ql (Bld) PRESENT *NA* (10/27/24 9:23 AM) Invalid Interpretation Code [facility] Heme RBC (Bld) [#/Vol] 1.8 E12/L Low 4.3 - 5.9 E12/L Rem[facility] Heme RBC size Nom (Bld) SEE MORPHOLOGY *NA* (10/27/24 9:23 AM) Invalid Interpretation Code [facility] Heme WBC corrected for nucl RBC Auto (Bld) [#/Vol] 2.9 E9/L Low 4.0 - 11.0 E9/L [facility] Heme Ironon 10-27-2024 Iron [Mass/Vol] 127 microgram/dL Normal 35-153 [facility] Comment on above: Performed By: #### 2 [id number] #### [facility] [address] [place] [address] TIBC Calculatedon 10-27-2024 Iron binding capacity [Mass/Vol] 301 microgram/dL Normal 250-400 [facility] Comment on above: Performed By: #### 1 [id number] #### [facility] [address] [place] [address] Transferrin [Mass/Vol] 215 mg/dL Normal 200-370 [facility] Comment on above: Performed By: #### 1 [id number] #### [facility] [address] [place] [address] Vitamin D 25 Hydroxyon 10-27 25-hydroxyvitamin D3 [Mass/Vol] 9.6 ng/mL Low 30.0-100.0 [facility] Comment on above: Performed By: #### 5 [id number] #### [facility] [address] [place] [address] eGFRon 10-27-2024 eGFR 102 mL/min/1.73 m2 Normal >=59 [facility] Comment on above: Performed By: #### 1 [id number] #### [facility] [address] [place] [address] Surgical Pathology Reporton 10-20-2024 Surgical Pathology Report [address] [address]- Surgical Pathology Report Collected Date/Time: 10/16/2024 09:51 EDT Pathologist: Pepito Rueda MD Date/Time: 10/16/2024 10:39 EDT Parvin LAND, Roseline Melendrez MD, Mohamad A. 07 Surgical Pathology Report [...] is entirely submitted in one cassette. (DC) DC:[facility] Microscopic Description Microscopic examination performed unless gross only specified. This report was transcribed using voice recognition technology and might contain unintended computerized wagon washer errors. The use of one or more reagents in the above tests is regulated as an analyte specific reagent (ASR). The test or tests are ordered following initial H&E microscopic examination. The performance characteristics were determined by the Laboratory of [facility] Surgical Pathology. They have not been cleared or approved by the US Food and Drug Administration. The FDA has determined that such clearance or approval is not necessary. These tests are used for clinical Surgical Pathology Report Collected Date/Time: 10/16/2024 09:51 EDT Pathologist: Pepito Rueda MD Received Date/Time: 10/16/2024 10:39 EDT Parvin LAND, Roseline Melendrez MD, Roseline Borrero. Microscopic Description purposes. They should not be regarded as investigational or for research. Appropriate positive and negative controls are performed and are acceptable. This report was transcribed using voice recognition technology and might contain unintended computerized wagon washer errors. [facility] Comment on above: Performed By: #### [id number] #### [facility] [address] [place] [address] Provider Letteron 10-19-2024 Provider Letter Provider Letter October 19, 2024 ANDREIA THOMAS [address] [place] [address] : 1965 To Whom It May Concern, Please excuse the patient above from Jury Duty. They have multiple medical conditions that would prohibit sitting through jury duty. Respectfully, Roseline Melendrez MD [facility] P: [phone] F: [phone] Normal [facility] Main OR Intraoperative Recor don 10-17-2024 Main OR Intraoperative Record Main OR Intraoperative Record IntraOp Document Type FT Summary Primary Physician: Roseline Melendrez MD Finalized Date/Time: 10/17/24 10:13:23 Pt. Name: ANDREIA THOMAS/Sex: 1965 Female Med Rec #: [id number] Physician: Roseline Melendrez MD Financial #: [id number] Pt. 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 Cheng supervising help in room Last Modified By: Martha VIZCAINO, Cassy Thomas RN, Cassy Thomas RN, Cassy [...] PreOp Antibiotic No Time Out Chasity HARMON, JORGE, [facility] Participants [place], Cassy Thomas RN, Miles, Kirstyn K, Schafer CST, Parvin Tanner MD, Roseline Chase Time Out [...] gastric biopsies Primary Procedure Yes Primary Surgeon Roseline Melendrez MD Start 10/16/24 09:49:00 Stop 10/16/24 09:54:00 Anesthesia [...] and tissue Entry 1 Skin Integrity Intact, [place], Warm, & Skin Abnormality No Dry Outcomes [...] Position Resting at Side Left Leg Position E (more content not included)... Normal [facility] Discharge Instructionson Discharge Instructions Discharge Instructions ANDREIA THOMAS :1965 Visit Date:10/16/2024 Inpatient Discharge Instructions Your [...] qualifying data available. Previously Scheduled Follow-Up Appointments Wednesday. 2024 9:00 AM EDT With: Where: [facility] Sound Wednesday 12:45 PM EDT With: Roseline Melendrez MD Where: [facility] [address] [place], [place] [id number]- Medications What How Much When Why Instructions [...] much pressure is on your esophagus. ??? (more content not included)... Normal [facility] Comment on above: Result Comment: Elec tronically Signed By: Guerita Jones I\.craig\Date and Time Signed: 10/16/24 10:08 EDT H&P Updateon 10-16-2024 H&P Update H&P Update Patient: ANDREIA THOMAS Age: 59 [...] 16 08:13) SBP 111 mmHg (OCT 16 08:13) DBP 76 mmHg (OCT 16 08:13) Weight 68.5 kg (OCT 16 08:08) General: in Nad Abdomen: Soft, NTND Impression and Plan Diagnosis: Epigastric pain and anemia -EGD Normal [facility] Main OR PACU II Recordon Main OR PACU II Record Main OR PACU II Record PACU Phase II Document Type FT Summary Primary Physician: Roseline Melendrez MD Finalized Date/Time: 10/16/24 10:29:38 Pt. Name: ANDREIA THOMAS Devora CornellB./Sex: 1965 Female Med Rec #: [id number] Physician: Roseline Melendrez MD Financial #: [id number] Pt. Type: O Room/Bed: / Admit/Disch: 10/16/24 [...] Signed By: Guerita Jones I 10/16/24 10:29 [facility] Main OR Preoperative Recordo n 10-16-2024 Main OR Preoperative Record Main OR Preoperative Record Holding Area Document Type FT Summary Primary Physician: Roseline Melendrez MD Finalized Date/Time: 10/16/24 08:12:24 Pt. Name: ANDREIA THOMAS./Sex: 1965 Female Med Rec #: [id number] Physician: Roseline Melendrez MD Financial #: [id number] Pt. Type: O Room/Bed: / Admit/Disch: 10/16/24 [...] Macie Sorto RN Document Signatures Signed By: aMcie Sorto RN 10/16/24 08:12 Normal [facility] Operative Reporton Operative Report Operative Report Patient: ANDREIA THOMAS Age: 59 [...] QID, # 120 tab(s), Refills(s) 4, Pharmacy: [facility] #[id number], 158, cm, 06/02/24 9:26:00 EST, Height/Length Dosing, 72.6, kg, 06/02/24 9:26:00 EST, Weight Dosing pantoprazole 40 mg Oral EC Tab: 40 mg = 1 tab(s), Oral, Daily, # 30 tab(s), Refills(s) 3, Pharmacy: [facility] #[id number], 154, cm, 04/14/22 12:07:00 EDT, Height/Length Dosing, [...] the duodenum. Biopsies obtained Images Procedure images: [id number]_hd_[id number]__[id number].jpg [id number]_hd_video__[id number].jpg [id number]_hd_video_[id number]__[id number] [id number].jpg [id number]_hd_video_2024__T0 9__[id number].jpg [id number]_hd_video_2024__[id number] 9__[id number].jpg [id number]_hd_video_2024__[id number] 9__[id number].jpg Rec1_hd_video_2024__[id number] 9__[id number].jpg Rec1_hd_video__21T0 9__04_136.jpg Rec1_hd_video__21T0 9__[id number].jpg . Post-Procedure Complications: none. Estimated blood loss: minimal. Specimens: sent to pathology. Devices/ implants: none left in place. Impression and Plan hiatal hernia Reflux esophagitis Gastropathy Lymph ectasia of the duodenum Recommendations: -Resume previous diet -Resume home medications -Await pathology results, follow in GI clinic in 1-2 after discharge [facility] Comment on above: Result Comment: Elec tronically Signed By: Parvin LAND, Roseline Cook.br\Date and Time Signed: 10/16/24 09:57 EDT Other Comment: Jessica choi Attachment - attachment storage system not supported [id number] Can be viewed in source systemMissing Attachment - attachment storage system not supported [id number] Can be viewed in source systemMissing Attachment - attachment storage system not supported [id number] Can be viewed in source systemMissing Attachment - attachment storage system not supported [id number] Can be viewed in source systemMissing Attachment - attachment storage system not supported [id number] Can be viewed in source systemMissing Attachment - attachment storage system not supported [id number] Can be viewed in source systemMissing Attachment - attachment storage system not supported [id number] Can be viewed in source systemMissing Attachment - attachment storage system not supported [id number] Can be viewed in source systemMissing Attachment - attachment storage system not supported [id number] Can be viewed in source system Ambulatory Visit Summaryon 0 10-10-2024 Ambulatory Visit Summary Ambulatory Visit Summary ANDREIA THOMAS :1965 Visit Date:10/10/2024 Ambulatory Visit Instructions Your Diagnosis Abdominal pain Nausea Epigastric pain Early satiety Diverticulitis Heartburn History of pancreatitis Status post cholecystectomy Elevated alkaline phosphatase level Thrombocytopenia Cirrhosis Blood loss anemia Your Care Team Attending Physician - Roseline Melendrez MD Primary Care Physician - Kaitlyn Joy MD This Is Your Medications List Contact [...] Appointments Wednesday. 2024 12:45 PM EDT With: Roseline Melendrez MD Where: [facility] [address] [place] [phone]- You Need to Complete the Following Acute [...] of pancreatitis Status post cholecystectomy Elevated alkali... Sccxr-9-Xssnptksxwk, Blood, Routine collect, 10/10/24, Order for future [...] cholecystectomy Elevated alkaline phosphatase level... PT, Blood, Routi (more content not included)... Normal [facility] Gastroenterology Office/Clin ic Noteon 10-10-2024 Gastroenterology Office/Clinic Note Gastroenterology Office/Clinic Note Chief Complaint 4 month follow up HPI Staff Established patient is a(n) 59 year old female who presents today for a(n) 4 month follow up. Labs done at [facility] She can pull the results up on [...] small bowel follow through Labs 09/07/24 @ [facility]: RBC 2.71 (L) HGB 11.4 (L) HCT [...] epigastric area Just got blood work at [facility] and showed platelet count of 73 Other [...] Fetoprotein Tumor Marker Alpha Fetoprotein Tumor Marker Afiwf-3-Xcwblfcytxv CIPRIANO w/Reflex if POS Antimitochondrial Antibody, Quantitative Ceruloplasmin EGD Endoscopy (Hospital Procedure) Hepatitis A Virus (HAV) Antibody, Total Hepatitis B Surface Antibody IgA, Quant. IgG, Quant. Iron Level PT Smooth Muscle Antibody Screen t-Transglutaminase IgA TIBC Calculated US Abdomen Complete Vitamin D 25 Hydroxy 2. Nausea (R11.0: Nausea) Ordered: Acute Hepatitis A B C Panel Alpha Fetoprotein Tumor Marker Alpha Fetoprotein Tumor Marker Wtpzn-1-Wkequvgqeik CIPRIANO w/Reflex if POS Antimitochondrial Antibody, Quantitative Ceruloplasmin EGD Endoscopy (Hospital Procedure) Hepatitis A Virus (HAV) Antibody, Total Hepatitis B (more content not included)... Normal [facility] Comment on above: Result Comment: Elec tronically Signed By: Parvin LAND, Roseline Chase\.br\Date and Time Signed: 10/10/24 14:17 EDT Patient Educationon 06-13-20 Patient Education Patient Education Normal [facility] Patient Letter FTon 2023 Patient Letter [facility] Patient Letter [facility] [facility] June 13, 20[address] TH[address]AS [address] [place] [address] : 1965 The anti-dumping diet, also known [...] manage diarrhea, and Use low-fat cooking methods [facility] Gastric Emptying Studyon 06-12-2024 [place] Gastric Emptying Study Exam Date/Time: 06/12/2024 10:21 EST Reason for Exam: Nausea Report IMPRESSION: ACCELERATED RATE OF GASTRIC EMPTYING OF A SOLID MEAL. EXAMINATION: [place] Gastric Emptying Study HISTORY: Nausea. TECHNIQUE: 0.8 [...] 2.0 hr (Upper Limit 60%) 0 Normal [facility] Ambulatory Visit Summaryon 1 08-03-2023 Ambulatory Visit Summary Ambulatory Visit Summary ANDREIA THOMAS :1965 Visit Date:06/02/2024 Ambulatory Visit Instructions Your Diagnosis Abdominal pain Nausea Epigastric pain Early satiety Diverticulitis Heartburn History of pancreatitis Status post cholecystectomy Elevated alkaline phosphatase level Your Care Team Attending Physician - Parvin LAND, Roseline Chase Primary Care Physician - Kaitlyn Joy MD This Is Your Medications List Contact [...] Follow-Up Appointments Wednesday 8:15 AM EST With: Pravin LAND, Roseline Chase Where: [facility] [address] [place], [place] [address] [address] [place] [phone]- You Need to Complete the Following Alkaline [...] Nausea, Abdominal pain Nausea Epigastric pain, No, pp_set_radiology_subspecia lty, [facility] Medications What How Much When Why Instructions [...] you for choosing us for your care. [facility] Gastroenterology Office/Clin ic Noteon 06-02-2024 Gastroenterology Office/Clinic [...] Patient reports having previous colonoscopy completed in [place], [place] 2 years ago. Patient reports previous [...] Isoenzymes Antim (more content not included)... Normal [facility] Comment on above: Result Comment: Elec tronically Signed By: Parvin LAND, Roseline Cook.br\Date and Time Signed: 06/02/24 09:52 EST HbA1c HPLC (Bld) [Mass fract ion]on 03-08-2024 HbA1c (Bld) [Mass fraction] 8.5 % [facility] No Panel Informationon 03-08 Bedside Glucose 243 [facility] Auditory function testson Right Ear: Mild cond uctive hearing loss above 3K Hz Left Ear: Mild to moderate sensorineural hearing loss above 3K Hz [facility] INSULINon 09-14-2022 Insulin 36.5 uIU/mL Critically high 2.6-24.9 [facility] Comment on above: Performed By: #### I NSULIN #### [facility] [address] [place] [address] Dr. Kizzy Hook BNPon 09-12-2022 Natriuretic peptide B (Bld) [Mass/Vol] 44.0 pg/mL Normal <=900.0 [facility] Comment on above: Performed By: #### C MP, BNP, TSH, LIPID, T7 #### [facility] [address] [address] [address] Kizzy Hook CBC AUTO DIFFon 09-12-2022 BASO # 0.1 103/ul Normal 0.0-0.1 [facility] Comment on above: Performed By: #### C BC #### [facility] [address] [place] [address] Dr. Kizzy Hook Basophils/100 WBC (Bld) 0.8 % Normal 0.2-2.0 [facility] Comment on above: Performed By: #### C BC #### [facility] [address] [place] [address] Dr. Kizzy Hook EO # 0.1 103/ul Normal 0.0-0.7 [facility] Comment on above: Performed By: #### C BC #### [facility] [address] [place] [address] Dr. Kizzy Hook Eosinophils/100 WBC (Bld) 1.9 % Normal 0.9-7.0 [facility] Comment on above: Performed By: #### C BC #### [facility] [address] [place] [address] Dr. Kizzy Hook Erythrocyte distribution width (RBC) [Ratio] 16.0 % Critically high 11.0-15.0 [facility] Comment on above: Performed By: #### C BC #### [facility] [address] [place] [address] Dr. Kizzy Hook Hematocrit (Bld) [Volume fraction] 41.1 % Normal 36.0-48.0 [facility] Comment on above: Performed By: #### C BC #### [facility] [address] [place] [address] Dr. Kizzy Hook Hemoglobin (Bld) [Mass/Vol] 13.5 g/dL Normal 12.0-16.0 [facility] Comment on above: Performed By: #### C BC #### [facility] [address] [place] [address] Dr. Kizzy Hook IG # 0.09 10e3/ul Critically high 0.00-0.03 [facility] Comment on above: Performed By: #### C BC #### [facility] [address] [place] [address] Dr. Kizzy Hook IG % 1.2 % Critically high 0.0-0.5 [facility] Comment on above: Performed By: #### C BC #### [facility] [address] [place] [address] Dr. Kizzy Hook LYMPH # 2.0 103/ul Normal 1.2-3.8 [facility] Comment on above: Performed By: #### C BC #### [facility] [address] [place] [address] Dr. Kizzy Hook Lymphocytes/100 WBC (Bld) 27.0 % Normal 20.5-60.0 [facility] Comment on above: Performed By: #### C BC #### [facility] [address] [place] [address] Dr. Kizzy Hook MANUAL DIFF REQ NO Normal [facility] Comment on above: Performed By: #### C BC #### [facility] [address] [place] [address] Dr. Kizzy Hook MCH (RBC) [Entitic mass] 35.8 pg Critically high 26.7-34.0 [facility] Comment on above: Performed By: #### C BC #### [facility] [address] [place] [address] Dr. Kizzy Hook MCHC (RBC) [Mass/Vol] 32.8 g/dL Normal 29.9-35.2 [facility] Comment on above: Performed By: #### C BC #### [facility] [address] [place] [address] Dr. Kizzy Hook MCV (RBC) [Entitic vol] 109.0 fL Critically high 81.0-99.0 [facility] Comment on above: Performed By: #### C BC #### [facility] [address] [place] [address] Dr. Kizzy Hook MONO # 0.5 103/ul Normal 0.3-0.8 [facility] Comment on above: Performed By: #### C BC #### [facility] [address] [place] [address] Dr. Kizzy Hook Monocytes/100 WBC (Bld) 6.9 % Normal 1.7-12.0 [facility] Comment on above: Performed By: #### C BC #### [facility] [address] [place] [address] Dr. Kizzy Hook NEUT # 4.6 103/ul Normal 1.4-6.5 [facility] Comment on above: Performed By: #### C BC #### [facility] [address] [place] [address] Dr. Kizzy Hook Neutrophils/100 WBC (Bld) 62.2 % Normal 43.0-75.0 [facility] Comment on above: Performed By: #### C BC #### [facility] [address] [place] [address] Dr. Kizzy Hook Platelet mean volume (Bld) [Entitic vol] 9.7 fL Normal 9.5-13.5 [facility] Comment on above: Performed By: #### C BC #### [facility] [address] [place] [address] Dr. Kizzy Hook PLT 208 103/ul Normal 150-450 [facility] Comment on above: Performed By: #### C BC #### [facility] [address] [place] [address] Dr. Kizzy Hook RBC 3.77 106/ul Critically low 4.20-5.40 [facility] Comment on above: Performed By: #### C BC #### [facility] [address] [place] [address] Dr. Kizzy Hook WBC 7.4 103/ul Normal 4.0-11.0 [facility] Comment on above: Performed By: #### C BC #### [facility] [address] [place] [address] Dr. Kizzy Hook FREE THYROXINE INDEX T7on FTI 2.60 Normal 1.30-4.50 [facility] Comment on above: Performed By: #### C MP, BNP, TSH, LIPID, T7 #### [facility] [address] [place] [address] Dr. Kizzy Hook T3U 31.0 % Normal 30.0-39.0 [facility] Comment on above: Performed By: #### C MP, BNP, TSH, LIPID, T7 #### [facility] [address] [place] [address] Dr. Kizzy Hook T4 [Mass/Vol] 8.40 ug/dL Normal 4.80-13.90 [facility] [place] [facility] Comment on above: Performed By: #### C MP, BNP, TSH, LIPID, T7 #### [facility] [address] [place] [address] Dr. Kizzy Hook GLYCOHEMOGLOBIN A1Con 2022 ADA RECOMMENDATION SEE BELOW Normal [facility] Comment on above: Result Comment: ADA RECOMMENDED LIMIT 4.0 - 6.0 ADA THERAPEUTIC TARGET < 7.0 ACTION SUGGESTED > 7.0 Performed By: #### A 1C ####[facility] [address] [place], [place] [address]WnRomana Hook Glucose [Mass/Vol] 151 mg/dL Normal [facility] Comment on above: Performed By: #### A 1C ####[facility] [address] [id number][address] Kizzy Hook HbA1c (Bld) [Mass fraction] 6.9 % Critically high 4.5-6.2 [facility] Comment on above: Performed By: #### A 1C ####[facility] [address] [id number] Hook IRONon 09-12-2022 Iron [Mass/Vol] 57.0 ug/dL Normal 50.0-170.0 [facility] Comment on above: Performed By: #### I RAGHAV VITAD ####[facility] [address] [id number] Hook LIPID PROFILEon 09-12-2022 CHOL-HDL RATIO NORM SEE BELOW Normal [facility] Comment on above: Result Comment: 3.3 - 4.4 LOW RISK 4.4 - 7.1 AVERAGE RISK 7.1 - 11.0 MODERATE RISK >11.0 HIGH RISK Performed By: #### C MP, BNP, TSH, LIPID, T7 #### [facility] [address] [address] [address] Kizzy Hook Cholesterol [Mass/Vol] 185 mg/dL Normal <=200 [facility] Comment on above: Performed By: #### C MP, BNP, TSH, LIPID, T7 #### [facility] [address] [id number] Kizzy Hook Cholesterol in HDL [Mass/Vol] 31 mg/dL Critically low 40-60 [facility] Comment on above: Performed By: #### C MP, BNP, TSH, LIPID, T7 #### [facility] [address] [address] [address] Kizzy Hook Cholesterol in LDL [Mass/Vol] 109.8 mg/dL Normal [facility] Comment on above: Performed By: #### C MP, BNP, TSH, LIPID, T7 #### [facility] [address] [address] [address] Kizzy Hook Cholesterol.total/C holesterol in HDL [Mass ratio] 6.0 {ratio} Normal [facility] Comment on above: Performed By: #### C MP, BNP, TSH, LIPID, T7 #### [facility] [address] [address] [address] Kizzy Hook HDL NORMAL > or = 60 mg/dl - LO W CARDIOVASCULAR RISK <40 mg/dl - HIGH CARDIOVASCULAR RISK Normal [facility] Comment on above: Performed By: #### C MP, BNP, TSH, LIPID, T7 #### [facility] [address] [address] [address] Kizzy Hook LDL CALC NORMAL SEE BELOW Normal [facility] Comment on above: Result Comment: <100 mg/dl OPTIMAL 100 - 129 mg/dl NEAR OR ABOVE OPTIMAL 130 - 159 mg/dl BORDERLINE HIGH 160 - 189 mg/dl HIGH >190 mg/dl VERY HIGH Performed By: #### C MP, BNP, TSH, LIPID, T7 #### [facility] [address] [address] [address] Kizzy Hook Triglyceride [Mass/Vol] 221 mg/dL Critically high <=150 [facility] Comment on above: Performed By: #### C MP, BNP, TSH, LIPID, T7 #### [facility] [address] [address] [address] Kizzy Hook VLDL CALC 44.2 mg/dL Normal [facility] Comment on above: Performed By: #### C MP, BNP, TSH, LIPID, T7 #### [facility] [address] [address] [address] Kizzy Hook PROF 14(COMP METB)on 023 Albumin [Mass/Vol] 3.7 g/dL Normal 3.4-5.0 [facility] Comment on above: Performed By: #### C MP, BNP, TSH, LIPID, T7 #### [facility] [address] [address] [address] Kizzy Hook Albumin/Globulin [Mass ratio] 1.1 {ratio} Normal [facility] Comment on above: Performed By: #### C MP, BNP, TSH, LIPID, T7 #### [facility] [address] [place] [address] Dr. Kizzy Hook ALP [Catalytic activity/Vol] 166 U/L Critically high 46-116 [facility] Comment on above: Performed By: #### C MP, BNP, TSH, LIPID, T7 #### [facility] [address] [place] [address] Dr. Kizzy Hook ALT [Catalytic activity/Vol] 50 U/L Normal 14-59 [facility] Comment on above: Performed By: #### C MP, BNP, TSH, LIPID, T7 #### [facility] [address] [place] [address] Dr. Kizzy Hook Anion gap [Moles/Vol] 13.2 mmol/L Normal [facility] Comment on above: Performed By: #### C MP, BNP, TSH, LIPID, T7 #### [facility] [address] [place] [address] Dr. Kizzy Hook AST [Catalytic activity/Vol] 34 U/L Normal 15-37 [facility] Comment on above: Performed By: #### C MP, BNP, TSH, LIPID, T7 #### [facility] [address] [address] [address] Kizzy Hook Bilirubin [Mass/Vol] 0.4 mg/dL Normal 0.2-1.0 [facility] Comment on above: Performed By: #### C MP, BNP, TSH, LIPID, T7 #### [facility] [address] [place] [address] Dr. Kizzy Hook Calcium [Mass/Vol] 9.3 mg/dL Normal 8.5-10.1 [facility] Comment on above: Performed By: #### C MP, BNP, TSH, LIPID, T7 #### [facility] [address] [place] [address] Dr. Kizzy Hook Chloride [Moles/Vol] 105 mmol/L Normal 98-107 [facility] Comment on above: Performed By: #### C MP, BNP, TSH, LIPID, T7 #### [facility] [address] [address] [address] Kizzy Hook CO2 [Moles/Vol] 28.1 mmol/L Normal 21.0-32.0 [facility] Comment on above: Performed By: #### C MP, BNP, TSH, LIPID, T7 #### [facility] [address] [address] [address] Kizzy Hook Creatinine [Mass/Vol] 0.59 mg/dL Normal 0.55-1.02 [facility] Comment on above: Performed By: #### C MP, BNP, TSH, LIPID, T7 #### [facility] [address] [address] [address] Kizzy Hook EGFR-AF FILIPINO >60 Normal >=60 [facility] Comment on above: Performed By: #### C MP, BNP, TSH, LIPID, T7 #### [facility] [address] [address] [address] iKzzy Hook EGFR-NON AF FILIPINO >60 Normal >=60 [facility] Comment on above: Performed By: #### C MP, BNP, TSH, LIPID, T7 #### [facility] [address] [address] [address] Kizzy Hook Globulin (S) [Mass/Vol] 3.4 g/dL Normal [facility] Comment on above: Performed By: #### C MP, BNP, TSH, LIPID, T7 #### [facility] [address] [address] [address] Kizzy Hook Glucose [Mass/Vol] 105 mg/dL Normal 74-106 [facility] Comment on above: Performed By: #### C MP, BNP, TSH, LIPID, T7 #### [facility] [address] [address] [address] Kizzy Hook Potassium [Moles/Vol] 4.3 mmol/L Normal 3.5-5.1 [facility] Comment on above: Performed By: #### C MP, BNP, TSH, LIPID, T7 #### [facility] [address] [address] [address] Kizzy Hook Protein [Mass/Vol] 7.1 g/dL Normal 6.4-8.2 [facility] Comment on above: Performed By: #### C MP, BNP, TSH, LIPID, T7 #### [facility] [address] [address] [address] Kizzy Hook Sodium [Moles/Vol] 142 mmol/L Normal 136-145 [facility] Comment on above: Performed By: #### C MP, BNP, TSH, LIPID, T7 #### [facility] [address] [place] [address] Dr. Kizzy Hook Urea nitrogen [Mass/Vol] 11.0 mg/dL Normal 7.0-18.0 [facility] Comment on above: Performed By: #### C MP, BNP, TSH, LIPID, T7 #### [facility] [address] [address] [address] Kizzy Hook Urea nitrogen/Creatinine [Mass ratio] 18.6 mg/mg Normal [facility] Comment on above: Performed By: #### C MP, BNP, TSH, LIPID, T7 #### [facility] [address] [address] [address] Kizzy Hook TSHon 09-12-2022 TSH 0.444 uIU/mL Normal 0.358-3.740 [facility] Comment on above: Performed By: #### C MP, BNP, TSH, LIPID, T7 #### [facility] [address] [address] [address] Kizzy Hook VITAMIN D 25 OHon 09-12-2022 VIT D 25-OH 17.6 ng/mL Normal [facility] Comment on above: Performed By: #### I RAGHAV VITAD ####[facility] [address] [place] [address]Dr. Kizzy Hook VIT D RANGES SEE BELOW Normal [facility] Comment on above: Result Comment: <20 ng/mL Vit D deficient 20 - <30 ng/mL Vit D insufficient 30 - 100 ng/mL Vit D sufficient >100 ng/mL Potential Toxicity Performed By: #### I HEMANT AGUAYO ####[facility] [address] [place], [place] [address]CqRomana Hook CHEMISTRYOrdered By: SYSTEM SYSTEM on 04-14-2022 Albumin [...] 14 mmol/L Normal 6 - 16 mEq/L [facility] Remisol AST [Catalytic activity/Vol] 58 [iU]/d High 5 - 43 Int._Unit/L [facility] Remisol Bilirubin [Mass/Vol] 0.4 mg/dL Normal 0.0 - 1.1 mg/dL [facility] Remisol Calcium [Mass/Vol] 9.7 mg/dL Normal 8.9 - 11. 1 mg/dL [facility] Remisol Chloride [Moles/Vol] 101 mmol/L Normal 101 - 111 mmol/L [facility] Remisol CO2 [Moles/Vol] 27 mmol/L Normal 21 - 31 mmol/L [facility] Remisol Creatinine [Mass/Vol] 0.7 mg/dL Normal 0.5 - 1.3 mg/dL [facility] Remisol GFR/1.73 sq M.predicted among blacks MDRD (S/P/Bld) [Vol rate/Area] mL/min/1.73 m2 Normal >=59mL/min/1 .73 m2 [facility] Chem S GFR/1.73 sq M.predicted among non-blacks MDRD (S/P/Bld) [Vol rate/Area] mL/min/1.73 m2 Normal >=59mL/min/1 .73 m2 [facility] Chem S Globulin (S) [Mass/Vol] [...] Normal 0.0 - 2.0 % [facility] HemeAutoSS Basophils/Leukocyte s Auto (Bld) [Pure # fraction] 0.1 E9/L Normal 0.0 - 0.2 E9/L [facility] HemeAutoSS Eosinophils/100 WBC (Bld) 0.9 % Normal 0.0 - 8.0 % [facility] HemeAutoSS Eosinophils/Leukocy sravani Auto (Bld) [Pure # fraction] 0.1 E9/L Normal 0.0 - 0.5 E9/L [facility] HemeAutoSS Lymphocytes/100 WBC (Bld) 22.4 % Normal 14.0 - 50.0 % [facility] HemeAutoSS Lymphocytes/Leukocy sravani Auto (Bld) [Pure # fraction] 2.1 E9/L Normal 1.0 - 4.0 E9/L [facility] HemeAutoSS Monocytes/100 WBC (Bld) 7.1 % Normal 4.0 - 14.0 % [facility] HemeAutoSS Monocytes/Leukocyte s Auto (Bld) [Pure # fraction] 0.7 E9/L Normal 0.2 - 1.0 E9/L [facility] HemeAutoSS Neutrophils/100 WBC (Bld) 69.0 % Normal 36.0 - 75.0 % [facility] HemeAutoSS Neutrophils/Leukocy sravani Auto (Bld) [Pure # fraction] 6.4 E9/L Normal 2.0 - 7.5 E9/L [facility] HemeAutoSS HEMATOLOGYOrdered By: Katya jerez on 04-14-2022 Erythrocyte distribution width (RBC) [Ratio] 18.3 % High 10.9 - 14.2 % [facility]eAutoSS Hematocrit (Bld) [Volume fraction] 45.3 % Normal 34.0 - 46.0 % [facility] HemeAutoSS Hemoglobin (Bld) [Mass/Vol] 14.6 g/dL Normal 12.0 - 16.0 gm/dL [facility]eAutoSS MCH (RBC) [Entitic mass] 29.9 pg Normal 27.0 - 34.0 pg [facility]eAutoSS MCHC (RBC) [Mass/Vol] 32.2 g/dL Normal 31.4 - 36.0 gm/dL [facility]eAutoSS MCV (RBC) [Entitic vol] 92.7 fL Normal 80.0 - 100.0 fL [facility] HemeAutoSS Platelet mean volume (Bld) [Entitic vol] 7.8 fL Normal 6.4 - 10.8 fL [facility] HemeAutoSS Platelets (Bld) [#/Vol] 260.0 E9/L Normal 150.0 - 500.0 E9/L [facility]eAutoSS RBC (Bld) [#/Vol] 4.9 E12/L Normal 4.3 - 5.9 E12/L [facility]eAutoSS WBC corrected for nucl RBC Auto (Bld) [#/Vol] 9.2 E9/L Normal 4.0 - 11.0 E9/L [facility] HemeAutoSS XR SINUSES 3 VIEWS OR GREATE Raghav 03-17-2022 XR SINUSES 3 VIEWS OR GREATER [...] by: TERELL HINTON Date: 2022-03-17 07:21 Normal [facility] Glucose - FINGER STICKon Glucose [Mass/Vol] 190 mg/dL [employer] Other A1C HEMOGLOBINon 02-18-2022 HbA1c (Bld) [Mass fraction] 6.8 % [facility] [employer] Other Glucose - FINGER STICKon Glucose [Mass/Vol] 113 mg/dL [facility] [employer] Other HbA1c (Bld) [Mass fraction]o n 02-18-2022 A1C HEMOGLOBIN [facility] [employer] Other CIPRIANO by IFAon 01-19-2022 Antinuclear Antibodies, IFA Negative Normal [facility] Comment on above: Result Comment: Nega tive <1:80 Borderline 1:80 Positive >1:80 ICAP nomenclature: AC-0 For more information about Hep-2 cell patterns use ANApatterns.org, the official website for the International Consensus on Antinuclear Antibody (CIPRIANO) Patterns (ICAP). Performed By: #### A NAIFA ####[facility] [id number] [place] [address]Dr. Kizzy Hook ANTISTREPTOLYSIN O AB (ASO)o n 01-17-2022 Antistreptolysin O Ab 55.0 IU/mL Normal 0.0-200.0 [facility] Comment on above: Performed By: #### A SOAB #### [facility] [address] [address] [address] Kizzy Hook RHEUMATOID FACTORon 01-18-20 RA Latex Turbid. <10.0 Normal <14.0 [facility] Comment on above: Performed By: #### R F ####[facility] [id number] [place] [id number]. Kizzy Hook CBC AUTO DIFFon 01-15-2022 BASO # 0.1 103/ul Normal 0.0-0.1 [facility] Comment on above: Performed By: #### C BC #### [facility] [address] [address] [address] Kizzy Hook Basophils/100 WBC (Bld) 0.6 % Normal 0.2-2.0 [facility] Comment on above: Performed By: #### C BC #### [facility] [address] [address] [address] Kizzy Hook EO # 0.1 103/ul Normal 0.0-0.7 [facility] Comment on above: Performed By: #### C BC #### [facility] [address] [address] [address] Kizzy Hook Eosinophils/100 WBC (Bld) 1.3 % Normal 0.9-7.0 [facility] Comment on above: Performed By: #### C BC #### [facility] [address] [place] [address] Dr. Kizzy Hook Erythrocyte distribution width (RBC) [Ratio] 17.0 % Critically high 11.0-15.0 [facility] Comment on above: Performed By: #### C BC #### [facility] [address] [place] [address] Dr. Kizzy Hook Hematocrit (Bld) [Volume fraction] 41.7 % Normal 36.0-48.0 [facility] Comment on above: Performed By: #### C BC #### [facility] [address] [place] [address] Dr. Kizzy Hook Hemoglobin (Bld) [Mass/Vol] 13.5 g/dL Normal 12.0-16.0 [facility] Comment on above: Performed By: #### C BC #### [facility] [address] [place] [address] Dr. Kizzy Hook IG # 0.08 10e3/ul Critically high 0.00-0.03 [facility] Comment on above: Performed By: #### C BC #### [facility] [address] [place] [address] Dr. Kizzy Hook IG % 0.9 % Critically high 0.0-0.5 [facility] Comment on above: Performed By: #### C BC #### [facility] [address] [place] [address] Dr. Kizzy Hook LYMPH # 1.7 103/ul Normal 1.2-3.8 [facility] Comment on above: Performed By: #### C BC #### [facility] [address] [place] [address] Dr. Kizzy Hook Lymphocytes/100 WBC (Bld) 19.1 % Critically low 20.5-60.0 [facility] Comment on above: Performed By: #### C BC #### [facility] [address] [place] [address] Dr. Kizzy Hook MANUAL DIFF REQ NO Normal [facility] Comment on above: Performed By: #### C BC #### [facility] [address] [place] [address] Dr. Kizzy Hook MCH (RBC) [Entitic mass] 31.2 pg Normal 26.7-34.0 [facility] Comment on above: Performed By: #### C BC #### [facility] [address] [place] [address] Dr. Kizzy Hook MCHC (RBC) [Mass/Vol] 32.4 g/dL Normal 29.9-35.2 [facility] Comment on above: Performed By: #### C BC #### [facility] [address] [place] [address] Dr. Kizzy Hook MCV (RBC) [Entitic vol] 96.3 fL Normal 81.0-99.0 [facility] Comment on above: Performed By: #### C BC #### [facility] [address] [place] [address] Dr. Kizzy Hook MONO # 0.6 103/ul Normal 0.3-0.8 [facility] Comment on above: Performed By: #### C BC #### [facility] [address] [place] [address] Dr. Kizzy Hook Monocytes/100 WBC (Bld) 6.7 % Normal 1.7-12.0 [facility] Comment on above: Performed By: #### C BC #### [facility] [address] [place] [address] Dr. Kizzy Hook NEUT # 6.2 103/ul Normal 1.4-6.5 [facility] Comment on above: Performed By: #### C BC #### [facility] [address] [address] [address] Kizzy Hoko Neutrophils/100 WBC (Bld) 71.4 % Normal 43.0-75.0 [facility] Comment on above: Performed By: #### C BC #### [facility] [address] [address] [address] Kizzy Hook Platelet mean volume (Bld) [Entitic vol] 9.5 fL Normal 9.5-13.5 [facility] Comment on above: Performed By: #### C BC #### [facility] [address] [address] [address] Kizzy Hook PLT 272 103/ul Normal 150-450 [facility] Comment on above: Performed By: #### C BC #### [facility] [address] [address] [address] Kizzy Hook RBC 4.33 106/ul Normal 4.20-5.40 [facility] Comment on above: Performed By: #### C BC #### [facility] [address] [address] [address] Kizzy Hook WBC 8.7 103/ul Normal 4.0-11.0 [facility] Comment on above: Performed By: #### C BC #### [facility] [address] [place] [address] Dr. Kizzy Hook CRPon 01-15-2022 CRP 0.6 mg/dL Normal <=1.0 [facility] Comment on above: Performed By: #### C MP, T7, CRP, TSH, URIC ####[facility] [address] [place] [id number]. Kizzy Hook FREE THYROXINE INDEX T7on FTI 2.85 Normal 1.30-4.50 [facility] Comment on above: Performed By: #### C MP, T7, CRP, TSH, URIC ####[facility] [address] [place] [id number]. Kizzy Hook T3U 30.0 % Normal 30.0-39.0 [facility] Comment on above: Performed By: #### C MP, T7, CRP, TSH, URIC ####[facility] [address] [place] [address]Dr. Kizzy Hook T4 [Mass/Vol] 9.50 ug/dL Normal 4.80-13.90 [facility] Comment on above: Performed By: #### C MP, T7, CRP, TSH, URIC ####[facility] [address] [place] [address]Dr. Kizzy Hook PROF 14(COMP METB)on 022 Albumin [Mass/Vol] 4.0 g/dL Normal 3.4-5.0 [facility] Comment on above: Performed By: #### C MP, T7, CRP, TSH, URIC ####[facility] [address] [place] [address]Dr. Kizzy Hook Albumin/Globulin [Mass ratio] 1.1 {ratio} Normal [facility] Comment on above: Performed By: #### C MP, T7, CRP, TSH, URIC ####[facility] [address] [place] [address]Dr. Kizzy Hook ALP [Catalytic activity/Vol] 188 U/L Critically high 46-116 [facility] Comment on above: Performed By: #### C MP, T7, CRP, TSH, URIC ####[facility] [address] [place] [address]Dr. Kizzy Hook ALT [Catalytic activity/Vol] 60 U/L Critically high 14-59 [facility] Comment on above: Performed By: #### C MP, T7, CRP, TSH, URIC ####[facility] [address] [place] [address]Dr. Kizzy Hook Anion gap [Moles/Vol] 13.7 mmol/L Normal [facility] Comment on above: Performed By: #### C MP, T7, CRP, TSH, URIC ####[facility] [address] [place] [address]Dr. Kizzy Hook AST [Catalytic activity/Vol] 27 U/L Normal 15-37 [facility] Comment on above: Performed By: #### C MP, T7, CRP, TSH, URIC ####[facility] [address] [place] [address]Dr. Kizzy Hook Bilirubin [Mass/Vol] 0.3 mg/dL Normal 0.2-1.0 [facility] Comment on above: Performed By: #### C MP, T7, CRP, TSH, URIC ####[facility] [address] [place] [address]Dr. Kizzy Hook Calcium [Mass/Vol] 9.3 mg/dL Normal 8.5-10.1 [facility] Comment on above: Performed By: #### C MP, T7, CRP, TSH, URIC ####[facility] [address] [place] [address]Dr. Kizzy Hook Chloride [Moles/Vol] 101 mmol/L Normal 98-107 [facility] Comment on above: Performed By: #### C MP, T7, CRP, TSH, URIC ####[facility] [address] [place], [place] [address]Dr. Kizzy Hook CO2 [Moles/Vol] 27.4 mmol/L Normal 21.0-32.0 [facility] Comment on above: Performed By: #### C MP, T7, CRP, TSH, URIC ####[facility] [address] [place], [place] [address]Dr. Kizzy Hook Creatinine [Mass/Vol] 0.65 mg/dL Normal 0.55-1.02 [facility] Comment on above: Performed By: #### C MP, T7, CRP, TSH, URIC ####[facility] [address] [place], [place] [address]Dr. Kizzy Hook EGFR-AF FILIPINO >60 Normal >=60 [facility] Comment on above: Performed By: #### C MP, T7, CRP, TSH, URIC ####[facility] [address] [place], [place] [address]Dr. Kizzy Hook EGFR-NON AF FILIPINO >60 Normal >=60 [facility] Comment on above: Performed By: #### C MP, T7, CRP, TSH, URIC ####[facility] [address] [place] [address]Dr. Kizzy Hook Globulin (S) [Mass/Vol] 3.5 g/dL Normal [facility] Comment on above: Performed By: #### C MP, T7, CRP, TSH, URIC ####[facility] [address] [place] [address]Dr. Kizzy Hook Glucose [Mass/Vol] 162 mg/dL Critically high 74-106 [facility] Comment on above: Performed By: #### C MP, T7, CRP, TSH, URIC ####[facility] [address] [place], [place] [address]Dr. Kizzy Hook Potassium [Moles/Vol] 4.1 mmol/L Normal 3.5-5.1 [facility] Comment on above: Performed By: #### C MP, T7, CRP, TSH, URIC ####[facility] [address] [place], [place] [address]Dr. Kizzy Hook Protein [Mass/Vol] 7.5 g/dL Normal 6.4-8.2 [facility] Comment on above: Performed By: #### C MP, T7, CRP, TSH, URIC ####[facility] [address] [place], [place] [address]Dr. Kizzy Hook Sodium [Moles/Vol] 138 mmol/L Normal 136-145 [facility] Comment on above: Performed By: #### C MP, T7, CRP, TSH, URIC ####[facility] [address] [place], [place] [address]Dr. Kizzy Hook Urea nitrogen [Mass/Vol] 11.0 mg/dL Normal 7.0-18.0 [facility] Comment on above: Performed By: #### C MP, T7, CRP, TSH, URIC ####[facility] [address] [place], [place] [address]Dr. Kizzy Hook Urea nitrogen/Creatinine [Mass ratio] 16.9 mg/mg Normal [facility] Comment on above: Performed By: #### C MP, T7, CRP, TSH, URIC ####[facility] [address] [place], [place] [address]Dr. Kizzy Hook TSHon 01-15-2022 TSH 0.466 uIU/mL Normal 0.358-3.740 [facility] Comment on above: Performed By: #### C MP, T7, CRP, TSH, URIC ####[facility] [address] [place], [place] [address]Wa. Kizzy Hook URIC ACID SERUMon 01-15-2022 Urate [Mass/Vol] 3.6 mg/dL Normal 2.6-6.0 [facility] Comment on above: Performed By: #### C MP, T7, CRP, TSH, URIC ####[facility] [address] [place], [place] [address]Cl. Kizzy Hook Vital Signs Date Time Vital Sign Value Performing Clinician Facility 01-31-2025 12:38-0400 Body height 156 cm Serenity Saavedra MD, PhD Work Phone: [facility] 01-31-2025 12:38-0400 Body mass index (BMI) [Ratio] 26.71 kg/m2 Serenity Saavedra MD, PhD Work Phone: [facility] 01-31-2025 12:38-0400 Body temperature 98.01 [degF] Serenity Saavedra MD, PhD Work Phone: [facility] 01-31-2025 12:38-0400 Body weight 65 kg Serenity Saavedra MD, PhD Work Phone: [facility] 01-31-2025 12:38-0400 Diastolic blood pressure 95 mm[Hg] Serenity Saavedra MD, PhD Work Phone: [facility] Comment on above: Left arm sitting 01-31-2025 12:38-0400 Heart rate 85 /min Serenity Saavedra MD, PhD Work Phone: [facility] 01-31-2025 12:38-0400 Respiratory rate 15 /min Serenity Saavedra MD, PhD Work Phone: [address]06-2025 12:38-0400 SaO2% (BldA) [Mass fraction] 99 % Serenity Saavedra MD, PhD Work Phone: [facility] 01-31-2025 12:38-0400 Systolic blood pressure 146 mm[Hg] Serenity Saavedra MD, PhD Work Phone: [facility] Comment on above: Left arm sitting 10-16-2024 10:20-0400 Diastolic blood pressure 76 mm[Hg] Mohamad Mouchli [facility] 10-16-2024 10:20-0400 Heart rate 73 /min Mohamad Mouchli [facility] 10-16-2024 10:20-0400 Mean blood pressure 91 mm[Hg] Mohamad Mouchli [facility] 10-16-2024 10:20-0400 Respiratory rate 18 /min Mohamad Mouchli [facility] 10-16-2024 10:20-0400 SaO2% (BldA) [Mass fraction] 97 % Mohamad Mouchli [facility] 10-16-2024 10:20-0400 Systolic blood pressure 120 mm[Hg] Mohamad Mouchli [facility] 10-16-2024 10:05-0400 SaO2% (BldA) [Mass fraction] 96 % Mohamad Mouchli [facility] 10-16-2024 10:05-0400 Respiratory rate 18 /min Mohamad Mouchli [facility] 10-16-2024 10:05-0400 Heart rate 77 /min Mohamad Mouchli [facility] 10-16-2024 10:05-0400 Diastolic blood pressure 52 mm[Hg] Mohamad Mouchli [facility] 10-16-2024 10:05-0400 Mean blood pressure 65 mm[Hg] Mohamad Mouchli [facility] 10-16-2024 10:05-0400 Systolic blood pressure 90 mm[Hg] Mohamad Mouchli [facility] 10-16-2024 10:00-0400 Heart rate 78 /min Mohamad Mouchli [facility] 10-16-2024 10:00-0400 SaO2% (BldA) [Mass fraction] 97 % Mohamad Mouchli [facility] 10-16-2024 10:00-0400 Respiratory rate 19 /min Mohamad Mouchli [facility] 10-16-2024 10:00-0400 Body temperature 97.7 [degF] Mohamad Mouchli [facility] 10-16-2024 10:00-0400 Diastolic blood pressure 54 mm[Hg] Mohamad Mouchli [facility] 10-16-2024 10:00-0400 Systolic blood pressure 87 mm[Hg] Mohamad Mouchli [facility] 10-16-2024 09:50-0400 Respiratory rate 22 /min Mohamad Mouchli [facility] 10-16-2024 09:45-0400 Respiratory rate 24 /min Mohamad Mouchli [facility] 10-16-2024 08:13-0400 Blood Pressure Location Mohamad Mouchli [facility] 10-16-2024 08:13-0400 Body temperature 96.8 [degF] Roseline Rosalescrystal [facility] 10-16-2024 08:13-0400 Respiratory rate 20 /min CierraVionicbecky Betorodolfo [facility] 06-02-2024 09:22-0500 Blood Pressure Location Daily [employer] [facility] 06-02-2024 09:22-0500 Diastolic blood pressure 83 mm[Hg] Daily [employer] [facility] 06-02-2024 09:22-0500 Respiratory rate 16 /min [employer] [facility] 06-02-2024 09:22-0500 Systolic blood pressure 118 mm[Hg] Daily [employer] [facility] 04-10-2024 07:16-0400 Body height 157.48 cm [facility] 04-10-2024 07:16-0400 Body mass index (BMI) [Ratio] 30.4 kg/m2 [facility] 04-10-2024 07:16-0400 Body weight 75.4 kg [facility] 04-10-2024 07:16-0400 Diastolic blood pressure 75 mm[Hg] [facility] 04-10-2024 07:16-0400 Heart rate 84 /min [facility] 04-10-2024 07:16-0400 Respiratory rate 18 /min [facility] 04-10-2024 07:16-0400 SaO2% (BldA) [Mass fraction] 94 % [facility] 04-10-2024 07:16-0400 Systolic blood pressure 122 mm[Hg] [facility] 03-08-2024 10:56-0400 Body height 157.48 cm [facility] 03-08-2024 10:56-0400 Body mass index (BMI) [Ratio] 30.8 kg/m2 [facility] 03-08-2024 10:56-0400 Body weight 76.43 kg [facility] 03-08-2024 10:56-0400 Diastolic blood pressure 91 mm[Hg] [facility] 03-08-2024 10:56-0400 Heart rate 87 /min [facility] 03-08-2024 10:56-0400 Respiratory rate 18 /min [facility] 03-08-2024 10:56-0400 SaO2% (BldA) [Mass fraction] 94 % [facility] 03-08-2024 10:56-0400 Systolic blood pressure 134 mm[Hg] [facility] 06-03-2022 14:33-0500 Blood Pressure Location Odalys Cruzmetz [facility] 06-03-2022 14:33-0500 Body temperature 96.98 [degF] Odalys Blake [facility] 06-03-2022 14:33-0500 Diastolic blood pressure 84 mm[Hg] Odalys Cruzmetz [facility] 06-03-2022 14:33-0500 Heart rate 92 /min Odalys Cruzmetz [facility] 06-03-2022 14:33-0500 Systolic blood pressure 128 mm[Hg] Odalys Cruzmetz [facility] 05-22-2022 08:50-0500 Diastolic blood pressure 95 mm[Hg] Pandey SALAM [facility] 05-22-2022 08:50-0500 Heart rate 77 /min Pandey SALAM [facility] 05-22-2022 08:50-0500 Respiratory rate 17 /min Pandey SALAM [facility] 05-22-2022 08:50-0500 SaO2% (BldA) [Mass fraction] 95 % Pandey SALAM [facility] 05-22-2022 08:50-0500 Systolic blood pressure 133 mm[Hg] Pandey SALAM [facility] 05-22-2022 08:35-0500 Diastolic blood pressure 89 mm[Hg] Pandey SALAM [facility] 05-22-2022 08:35-0500 Heart rate 80 /min Pandey SALAM [facility] 05-22-2022 08:35-0500 Respiratory rate 20 /min Pandey SALAM [facility] 05-22-2022 08:35-0500 SaO2% (BldA) [Mass fraction] 95 % Pandey SALAM [facility] 05-22-2022 08:35-0500 Systolic blood pressure 127 mm[Hg] Pandey SALAM [facility] 05-22-2022 08:30-0500 Diastolic blood pressure 87 mm[Hg] Pandey SALAM [facility] 05-22-2022 08:30-0500 Heart rate 85 /min Pandey SALAM [facility] 05-22-2022 08:30-0500 Respiratory rate 20 /min Pandey SALAM [facility] 05-22-2022 08:30-0500 SaO2% (BldA) [Mass fraction] 96 % Pandey SALAM [facility] 05-22-2022 08:30-0500 Systolic blood pressure 126 mm[Hg] Pandey SALAM [facility] 05-22-2022 08:24-0500 Body temperature 97.52 [degF] Pandey SALAM [facility] 05-22-2022 07:20-0500 Blood Pressure Location Pandey SALAM [facility] 05-22-2022 07:20-0500 Body temperature 97.88 [degF] Pandey SALAM [facility] 04-14-2022 12:03-0400 Blood Pressure Location Pandey SALAM [facility] 04-14-2022 12:03-0400 Diastolic blood pressure 64 mm[Hg] Pandey SALAM [facility] 04-14-2022 12:03-0400 Heart rate 88 /min Pandey SALAM [facility] 04-14-2022 12:03-0400 SaO2% (BldA) [Mass fraction] 96 % Pandey SALAM [facility] 04-14-2022 12:03-0400 Systolic blood pressure 131 mm[Hg] Pandey SALAM [facility] 03-11-2022 10:45-0400 Body height 157.48 cm [employer] Other [employer] Other 03-11-2022 10:45-0400 Body mass index (BMI) [Ratio] 29.81 kg/m2 Tondra [employer] Other [employer] Other 03-11-2022 10:45-0400 Body weight 73.94 kg Tondra Kunl[employer] Other [employer] Other 03-11-2022 10:45-0400 Diastolic blood pressure 79 mm[Hg] Tondra Mapus Other [employer] Other 03-11-2022 10:45-0400 Respiratory rate 16 /min Tondra Mapus Other [employer] Other 03-11-2022 10:45-0400 SaO2% (BldA) [Mass fraction] 97 % Tondra Mapus Other [employer] Other 03-11-2022 10:45-0400 Systolic blood pressure 115 mm[Hg] Tondra Mapus Other [employer] Other 02-18-2022 12:00-0400 Body height 157.48 cm Tondra Mapus Other [employer] Other 02-18-2022 12:00-0400 Body mass index (BMI) [Ratio] 30.36 kg/m2 Tondra Mapus Other [employer] Other 02-18-2022 12:00-0400 Body weight 75.3 kg Tondra Mapus Other [employer] Other 02-18-2022 12:00-0400 Diastolic blood pressure 79 mm[Hg] Tondra Mapus Other [employer] Other 02-18-2022 12:00-0400 Respiratory rate 16 /min Tondra Mapus Other [employer] Other 02-18-2022 12:00-0400 SaO2% (BldA) [Mass fraction] 98 % Tondra Mapus Other [employer] Other 02-18-2022 12:00-0400 Systolic blood pressure 112 mm[Hg] Dewey Davidson Other [place] [employer] Other Encounters Encounter Date Encounter Type Care Provider Facility Start: 01-31-2025 End: 01-31-2025 ambulatory KAITLYN JOY Facility:[facility] Start: 01-31-2025 End: 01-31-2025 Patient encounter procedure Serenity Saavedra MD, PhD Work Phone: Hematology/Oncology Start: 01-31-2025 End: 01-31-2025 ambulatory Serenity Saavedra MD, PhD Work Phone: Hematology/Oncology Comment on above: Clonal hematopoiesis of indeterminate potential (Primary Dx) Start: 01-23-2025 ambulatory [facility] Start: 01-23-2025 End: 01-23-2025 [facility] Start: 01-19-2025 ambulatory [facility] Start: 01-11-2025 End: 01-11-2025 Office outpatient visit 15 minutes Cade Peng MD Work Phone: [facility] Comment on above: Seborrheic keratosis (Primary Dx); Lentigines; Epidermal inclusion cyst; Capillary angioma Start: 01-11-2025 End: 01-11-2025 ambulatory CADE PENG Not Available Start: 01-11-2025 End: 01-11-2025 Go flowsheet Cade Peng MD Work Phone: [facility] Start: 01-11-2025 End: 01-11-2025 Go flowsjuan carlos Peng MD Work Phone: [facility] Start: 12-27-2024 End: 12-27-2024 ambulatory [facility] Start: 12-25-2024 ambulatory Roseline Verma lity:Michelle Start: 11-23-2024 [facility]ulatory [facility] Start: 11-23-2024 [facility] Start: 11-11-2024 Evaluation and management of inpatient HAL T [facility] Start: 11-10-2024 Evaluation and management of inpatient HAL T [facility] Start: 11-10-2024 Evaluation and management of inpatient HAL T [facility] Start: 11-09-2024 End: 11-14-2024 Evaluation and management of inpatient KAITLYN JOY [facility] Start: 11-07-2024 End: 11-07-2024 ambulatory Kaitlyn Joy Facility:[facility] Start: 11-07-2024 End: 11-07-2024 Departed Referred Jose Eduardo Ann DO Work Phone: [facility] Start: 11-07-2024 End: 11-07-2024 ambulatory Jose Eduardo Ann Facility:[facility] Start: 11-07-2024 End: 11-07-2024 Departed Referred Jose Eduardo Ann DO Work Phone: [facility] Start: 10-31-2024 End: 10-31-2024 ambulatory [facility] Start: 10-27-2024 End: 10-27-2024 ambulatory Roseline Melendrez Facility:[facility] Start: 10-27-2024 End: 10-27-2024 Patient encounter procedure Roseline Melendrez [facility] Start: 10-16-2024 End: 10-16-2024 ambulatory Roseline Melendrez Facility:[facility] Start: 10-16-2024 End: 10-16-2024 Patient encounter procedure Roseline Melendrez [facility] Start: 10-10-2024 End: 10-10-2024 ambulatory Roseline Melendrez Facility:[facility] Start: 09-11-2024 End: 09-11-2024 ambulatory Roseline Melendrez Facility:[facility] Start: 06-12-2024 End: 06-12-2024 ambulatory Roseline Melendrez Facility:[facility] Start: 06-12-2024 End: 06-12-2024 Patient encounter procedure Roseline Melendrez [facility] Start: 06-02-2024 End: 06-02-2024 ambulatory Roseline Melendrez Facility:[facility] Start: 06-02-2024 End: 06-02-2024 Patient encounter procedure Roseline Melendrez [facility] Start: 04-10-2024 End: 04-10-2024 ambulatory [facility] Work Phone: Start: 04-10-2024 End: 04-10-2024 Patient encounter procedure [facility] Work Phone: Start: 03-09-2024 End: 03-09-2024 ambulatory [facility] Work Phone: Start: 03-09-2024 End: 03-09-2024 Patient encounter procedure [facility] Work Phone: Start: 03-08-2024 End: 03-08-2024 ambulatory [facility] Work Phone: Start: 03-08-2024 End: 03-08-2024 Patient encounter procedure [facility] Work Phone: Start: 08-11-2023 Go jimenez CCC-A Work Phone: [facility] Start: 08-11-2023 Bamboo flowsheet Rosa jimenez CCC-A Work Phone: [facility] Start: 08-11-2023 End: 08-11-2023 Clinical Support Rosa Kevin CCC-A Work Phone: [facility] Comment on above: OME (otitis media wi th effusion), left (Primary Dx); 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 Facility: Start: [address] KAITLYN JOY . Facili ty:[facility]1 Start: 06-16-2022 End: 06-16-2022 Patient encounter procedure Dannie STARKS [facility] Start: 06-03-2022 End: 06-03-2022 Patient encounter procedure Odalys Borrero Blake [facility] Start: 05-26-2022 End: 05-26-2022 ambulatory Tondra Mapus Other [employer] Other Start: 05-26-2022 Telephone encounter Tondra Mapus [facility] Start: 05-22-2022 End: 05-22-2022 Patient encounter procedure Pandeymarlene LOWAM [facility] Start: 04-15-2022 End: 04-15-2022 ambulatory Tondra Mapus Other [employer] Other Start: 04-15-2022 Telephone encounter Tondra Saidaus [facility] Start: 04-14-2022 End: 04-14-2022 Patient encounter procedure Dannie STARKS [facility] Start: 04-09-2022 End: 04-09-2022 ambulatory Tondra Mapus Other [employer] Other Start: 04-09-2022 Telephone encounter Tondra Saidaus Delgado [facility] Start: 03-24-2022 End: 04-30-2022 Pre-admission assessment Saran Morales [facility] Start: 03-16-2022 End: 03-17-2022 ambulatory SARAN MORALES Facility: Start: 03-11-2022 (DM) Diabetes Tondra Saidaus [facility] Start: 03-11-2022 End: 03-11-2022 ambulatory Tondra Mapus Other [employer] Other Start: 03-10-2022 End: 03-10-2022 ambulatory Tondra Mapus Other [employer] Other Start: 03-10-2022 Telephone encounter Tondra Mapus Delgado [facility] Start: 03-03-2022 End: 03-03-2022 ambulatory Tondra Mapus Other [employer] Other Start: 03-03-2022 Telephone encounter Tondra Mapus Delgado [facility] Start: 02-18-2022 End: 02-18-2022 ambulatory Tondra Mapus Other [employer] Other Start: 02-18-2022 FQHC visit new patient Tondra Mapus [facility] Start: 01-15-2022 End: 01-16-[address] KAITLYN JOY . Facility: Procedures Date Procedure Procedure Detail Performing Clinician Start: 10-16-2024 Esophagogastroduodenoscopy Roseline rojas Start: 08-11-2023 AUDITORY FUNCTION TESTS Rosa Kevin [facility] Work Phone: Start: 05-22-2022 Esophagogastroduodenoscopy Dannie STARKS Comment on above: gastric biopsy, gastritis, duodenal biop sy r/o celiac disease Start: 02-28-2019 Colonoscopy Serenity Saavedra MD, PhD Work Phone: Start: 09-10-2017 TVT with sling Pandey [employer] Abdominal hysterectomy Pandey [employer] Cholecystectomy Pandey SALAM Closed fracture of r ight wrist (disorder) Pandey [employer] ft (qualifier value) Pandey S ALAM History of arthropla sty of right knee Pandey [employer] History of cholecystectomy Statu s post cholecystectomy Cierraclivebecky Melendrez History of cholecystectomy M nelida Melendrez Plan of Treatment Date Care Activity Detail Author Start: 10-20-2027 Screening for malign ant neoplasm of colon [facility] Start: 01-10-2026 End: 01-10-2026 Patient encounter procedure 01/10/2026 10:20 AM EDT Office Visit [facility] [address] [place] [address] Cade Peng MD [address] [place] [address] [facility] Start: 05-02-2025 End: 05-02-2025 Follow-up encounter 05/02/2025 2:00 PM EST Visit (SP) Office Hematology/Oncology [address] [place] [address] [place] [address] [place] [address] FOLLOW UP Hematology/Oncology Comment on above: FOLLOW UP Start: 02-26-2025 Influenza vaccination Influenza Vacc ine (#1) [facility] Start: 01-11-2025 End: 01-11-2025 Patient encounter procedure 01/11/2025 2:45 PM EDT Office Visit [facility] [address] [place] [address] Cade Peng MD [address] [place] [address] Arrived [facility] Comment on above: Arrived Start: 11-07-2024 Bacteria identified in Urine by Culture Urine Culture [facility] Start: 11-07-2024 End: 11-07-2024 Urine culture [facility] Start: 01-11-2024 End: 01-11-2024 Patient encounter procedure 01/11/2024 11:00 AM EDT Office Visit [facility] [address] [place] [address] Cade Peng MD [address] [place] [address] [facility] Start: 08-25-2023 End: 08-25-2023 Patient encounter procedure 08/25/2023 9:10 AM EST Office Visit [facility] [address] [email or web address] [address] [place] [id number] Saran Morales MD [address] [place] [address] [facility] Start: 08-11-2023 End: 08-11-2023 Clinical Support 08/11/2023 9:30 AM EST Clinical Support [facility] [address] [place] [address] Rosa Kevin, [facility] [address] [place] [address] Arrived [facility] Comment on above: Arrived Start: 2023 RSV Vaccine (1 - Ris k 60-74 years 1-dose series) RSV Vaccine (1 - Risk 60-74 years 1-dose series) [facility] Start: 02-26-2023 Influenza vaccination Influenza Vacc ine (#1) [facility] Start: 02-29-2020 Screening for malign ant neoplasm of colon Colonoscopy [facility] Start: 02-01-2020 Urine microalbumin profile DTaP,Tdap,Td Vaccine (2 - Td or Tdap) [facility] Start: 2008 Screening for malign ant neoplasm of colon [facility] Start: 2003 Screening for malign ant neoplasm of breast [facility] Start: 1993 Screening for malign ant neoplasm of cervix [facility] Start: 1984 Screening for malign ant neoplasm of cervix [facility] Start: 1982 Pneumococcal Vaccine : 50+ (1 of 2 - PCV) Pneumococcal Vaccine: 50+ (1 of 2 - PCV) [facility] Start: 1982 Shingrix Vaccine (1 of 2) Shingrix Vaccine (1 of 2) [facility] Start: 1981 Annual PCP Team [employer] babak Disease Visit Annual PCP Team Chronic Disease Visit [facility] Start: 1981 Depression Screening Depression Scre ening [facility] Start: 1981 Hepatitis B surface antibody level LDL Cholesterol [facility] Start: 1981 Hepatitis C screening Hepatitis C Sc maureen [facility] Start: 1973 Diabetic foot examination Diabetic Foot Exam [facility] Start: 1973 Glaucoma screening Dilated Retinal E xam [facility] Start: 1973 Hepatitis B screening Urine Albumin:Creatinine Ratio [facility] Start: 1973 Meningococcal B Vacc ine (1 of 4 - Increased Risk) Meningococcal B Vaccine (1 of 4 - Increased Risk) [facility] Start: 1968 Hemoglobin A1c measurement HbA1C [facility] Start: 1965 Meningococcal Conjug ate Vaccine (1 - Risk 2-dose series) Meningococcal Conjugate Vaccine (1 - Risk 2-dose series) [facility] Start: 09-27-1964 Hib Vaccine (1 of 1 - Risk 1-dose series) Hib Vaccine (1 of 1 - Risk 1-dose series) [facility] Start: 1963 Screening for malign ant neoplasm of colon [facility] Patient Education [facility] Work Phone: Immunizations Immunization Date Immunization Notes Care Provider Fa cili 03-28-2022 influenza virus vaccine, unspecified formulation Pandey SALAM [facility] 05-29-2021 influenza virus vaccine, unspecified formulation Pandey SALAM [facility] 05-29-2021 SARS-CoV-2 (COVID-19 ) mRNA BNT-162b2 vax Pandey SALAM [facility] 09-28-2020 SARS-CoV-2 (COVID-19 ) mRNA BNT-162b2 vax Pandey SALAM [facility] 09-07-2020 SARS-CoV-2 (COVID-19 ) mRNA BNT-162b2 vax Pandey SALAM [facility] 05-16-2018 influenza virus vaccine, unspecified formulation Pandey SALAM [facility] 05-04-2018 influenza virus vaccine, unspecified formulation Pandey SALAM [facility] 03-28-2015 influenza virus vaccine, unspecified formulation Roseline Melendrez [facility] 01-31-2010 tetanus toxoid, reduced diphtheria toxoid, and acellular pertussis vaccine, adsorbed Pandey SALAM [facility] NEGATED: Highlighted row has not occurred!06-03-2022 influenza virus vaccine, unspecified formulation Odalys Lozano [facility] Payers Date Payer Category Payer Medicare [id number] 2024 Medicare [id number] 2022 Private Health Insurance [id number] 2022 Unknown [id number] 1963 Unknown [id number] 2.16.84 [id number] 1963 Unknown [id number] 2.16.84 [id number] 1963 Unknown [id number] 2.16.84 [id number] 1963 Unknown [id number] 2.16.84 [id number] 1963 Unknown [id number] 2.16.8 [id number] 1963 Unknown [id number] 2.16.8 [id number] 1963 Unknown [id number] 2.16.8 40.1.108479.3.579.2.727 1963 Unknown [id number] 2.16.8 [id number] 1963 Unknown [id number] 2.16.8 40.1.265200.3.579.2.727 1963 Unknown [id number] 2.16.8 40.1.574786.3.579.2.727 1963 Unknown [id number] 2.16.8 40.1.689067.3.579.2.727 1963 Unknown [id number] 2.16.8 [id number] 1963 Unknown [id number] 2.16.8 [id number] 1963 Unknown [id number] 2.16.8 [id number] 1963 Unknown [id number] 2.16.8 [id number] 1959 Self-pay [id number] 1959 Unknown [id number] 2. [id number] Self-pay Self Pay [id number] Unknown O [id number] Social History Date Type Detail Facility Unknown if ever smoked [employer] Other Start: 06-09-2023 End: 01-31-2025 [facility] Assigned At [facility] Start: 04-14-2022 End: 10-10-2024 Tobacco smoking status Heavy tobacco smoker (finding) [facility] Start: 11-08-2024 Tobacco smoking status Never [facility] Start: 1965 Sex Assigned At Female F [facility] Start: 04-29-2023 End: 01-11-2024 Tobacco smoking status DCIS Smokes tobacco daily [facility] History of tobacco use Cigarette Smoker [facility] Start: 04-29-2023 End: 01-31-2025 Cigarettes smoked current (pack per day) - Reported 1.5 [facility] Start: 04-29-2023 End: 01-11-2024 Tobacco use and exposure Smokeless tobacco non-user [facility] Start: 06-09-2023 End: 01-11-2025 Alcohol intake Ex-drinker (finding) [facility] Start: 05-02-2023 Alcohol Comment caffeine: yes, marianna lozoya [facility] Start: 1965 Sex Assigned At Not on file N [facility] Start: 08-17-2017 Tobacco smoking stat [facility] Smoker (finding) [facility] Sexual Orientation [facility] Start: 10-09-2009 End: 11-09-2024 Sex Female (finding) [facility] Start: 02-02-2025 Tobacco smoking stat [facility] Ex-smoker [facility] Work Phone: Medical Equipment Procedure Code Equipment Code Equipment [...] 03-09-2024 Functional Status Date Assessment Result Facility 10-16-2024 Functional Status N/A [facility] 06-02-2024 Functional Status N/A [facility] 06-03-2022 Functional Status N/A [facility] 05-22-2022 Functional Status N/A [facility] 04-14-2022 Functional Status N/A [facility] Clinical Notes 02-18-2022 to 02-23-2025 Bridger Mitchell LPN - 01/31/2025 12:38 PM Angi Landeros MD - 01/31/2025 12:30 PM Sapna Peng MD - 01/11/2025 2:45 PM Newton Kevin CCC-[facility] - 08/11/2023 9:30 AM EST Note Date & Type Note Facility 02-23-2025 Note Patient to follow up with pcp on elevated Ast and alphos . Ally, please give her a call on the same and ensure these results are sent to pcp . She may also follow up with me but pcp closer to home Юлия Starks MD [facility] 02-07-2025 Note [facility] 1 025 3:01 PM EDT [facility] Comment on above: Research 01-31-2025 Note HNO ID: [id number] Author: BRIDGER MITCHELL LPN Service: ? Author Type: LICENSED NURSE Type: Progress Notes Filed: 01/31/2025 12:39 Note Text: Additional intake questions: Has the patient had fever, nausea, vomiting, diarrhea, constipation, fatigue for > 1 week? Yes, nausea, vomiting, fatigue, and Provider Notified Does the patient have a decreased appetite? No Does patient want to see a Clipper Machine? No (yes to any of above refer patient to schedulers for dietitian appointment) ) Does patient have any new or increased numbness or tingling of extremities? No Is patient interested in fertility information? No Does patient need any prescription refills? No Does patient have an advanced directive in place? No, Patient refused referral to Social Work or Resource Center Electronically Signed By: Bridger Mitchell LPN [facility] 01-31-2025 History of Present illness Narrative Additional intake questions: Has the patient had fever, nausea, vomiting, diarrhea, constipation, fatigue for > 1 week? Yes, nausea, vomiting, fatigue, and Provider Notified Does the patient have a decreased appetite? No Does patient want to see a Clipper Machine? No (yes to any of above refer patient to schedulers for dietitian appointment) ) Does patient have any new or increased numbness or tingling of extremities? No Is patient interested in fertility information? No Does patient need any prescription refills? No Does patient have an advanced directive in place? No, Patient refused referral to Social Work or Resource Center Electronically Signed By: Bridger Mitchell LPN Images from the original note were not included. [facility] DEPARTMENT OF HEMATOLOGY AND MEDICAL ONCOLOGY MDS/LEUKEMIA CLINIC NEW CONSULT ____ STAFF PHYSICIAN: Dr. Serenity Saavedra MD, PhD Patient Name: Andreia Thomas DATE of SERVICE: February 01, 2025 Primary Care Physician: Kaitlyn Joy MD Reason for visit: pancytopenia r/o aplastic anemia History of Present Illness: Andreia Thomas is a 59 year old female with a PMHx of T2DM, hypothyroidism, presenting from [facility] after presenting with pancytopenia. Patient was initially admitted on 11/09/2024 at [facility] for confusion and weakness for the past 6 weeks. Her lab work was significant for pancytopenia (WBC 2.2, RBC 1.26, hemoglobin 5.3, hematocrit 15.6, platelet count 31, total bilirubin 1.7, direct bilirubin 0.4, Haptoglobin <3.5, LD 3489, AST 122, ALT 30, alkaline phosphatase 98), previous lab work in 2019 was normal. Patient required 2 U PRBCs. Her Plasma cell dyscrasia work up was negative, HIV, cold agglutinin and PNH panels reported negative. CT C/A/P was done to rule out lymphoma which was negative. Parvovirus IgG, EBV IgM and HSV IgG reported positive. Her blood count improved during her hospital stay and didn't require additional transfusions. BM on 11/10/2024 showed Hypercellular bone marrow for age with erythroid predominance and trilineage dysplasia; no increase in blasts. Mildly increased storage iron; ring sideroblasts present (5% of erythroid precursors DNMT3A: Chr2 (GRCh37):[id number]>A; [id number](DNMT3A):c.2311C>T; p.[id number]* (3%). Karyotype: 46,XX[20]. Interval History: Patient, accompanied by her , presents to [facility]. She states that she feels well overall. She complaints of chronic earache and chronic mild lightheadedness when going from lying to standing. She denies fever, chills, chest pain, palpitations, sob, abdominal pain, changes in bowel or bladder habits. Past Medical History: No past medical history on file. Medications: Current Outpatient Medications Medication Sig levothyroxine (SYNTHROID) 100 mcg tablet Take 125 mcg by mouth once daily. liothyronine (CYTOMEL) 5 mcg tablet Take 5 mcg by mouth once daily. rosuvastatin (CRESTOR) 5 mg tablet Take 5 mg by mouth once daily. pantoprazole DR (PROTONIX) 40 mg tablet Take 2 tablets by mouth once daily. RESTASIS 0.05 % ophthalmic emulsion Use 1 drop in both eyes two times a day. CELEXA 20 mg tablet Take 20 mg by mouth once daily. KLONOPIN 2 mg tablet Take 2 mg by mouth three times a day as needed for anxiety. cholecalciferol (VITAMIN D3) 50 mcg (2,000 unit) tablet Take 2,000 Units by mouth once daily. No current facility-administered medications for this visit. Allergies: ALLERGIES Allergen Reactions Simvastatin Unknown Other Reaction(s): Unknown Sulfa (Sulfonamide * Vomiting Other Reaction(s): Unknown, Vomiting Trimethoprim Unknown Other Reaction(s): Unknown Family Hx: No family history on file. 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 Vital Signs: There were no vitals taken for this visit. Physical Exam: ECOG/KPS: 0 General appearance: Well appearing, alert, in no acute distress, well-hydrated, well nourished. Head: Normocephalic, no masses, lesions, tenderness or abnormalities Lungs: Lungs clear to auscultation. No wheezing, rhonchi, rales. Heart: RRR without murmur, gallop, or rubs. No ectopy Abdomen: Normal abdominal exam, Abdomen soft, non-tender. Bowel sounds normal. No masses, organomegaly Extremities: No deformities, edema, skin discoloration, clubbing or cyanosis. Good capillary refill. Neuro: Gait normal. Reflexes normal and symmetric. Sensation grossly intact. Labs: Recent Labs 01/31/25 1422 WBC 10.28 HB 17.4* HCT 53.4* PLT 259 NA 141 K 5.1 CHLOR 101 CO2 28 BUN 12 CREAT 0.60 GLUC 119* CA 10.1 Component Ref Range & Units 2 d ago Erythropoietin 2.6 - 18.5 mIU/mL 2.4 Low Component 01/23/2025 01/19/2025 11/23/2024 11/14/2024 11/13/2024 11/12/2024 11/11/2024 11/10/2024 11/09/2024 Auto WBC 8.24 7.24 8.66 3.3 Low 2.6 Low 2.32 Low 2.87 Low 3.48 Low 3.49 Low RBC 5.82 High 5.8 High 4.03 2.59 Low 2.41 Low 2.34 Low 2.35 Low 2.42 Low 2.39 Low Hemoglobin 16 High 15.9 High 12.3 8.5 Low 8.2 Low 8.2 Low 8.2 Low 8.7 Low 8.4 Low Hematocrit 49.7 High 49.3 High 39.5 27.7 Low 26.4 Low 25.4 Low 25.4 Low 25.9 Low 24.8 Low MCV 85.4 85 98 106.9 High 109.5 High 108.5 High 108.1 High 107 High 103.8 High MCH 27.5 27.4 30.5 32.8 34 High 35 High 34.9 High 36 High 35.1 High MCHC 32.2 32.3 -- 31.1 Low 30.7 Low 31.1 Low 32.3 32.3 33.6 Platelets 223 218 419 High 113 Low 36 Low 17 Low Panic 19 Low Panic 24 Low 26 Low Recent Labs 01/31/25 1422 TPROT 7.8 8.2* ALB 4.6 ALT 46* AST 26 ALKPHOS 271* TBILI 0.3 Assessment and Plan: 59 year old female with CHIP. # Clonal hematopoiesis of indeterminate potential (CHIP) # Pancytopenia, resolved # Polycythemia - Initially patient was pancytopenic and required 2 U PRBCs. She was found to have viral infection (Parvovirus IgG, EBV IgM and HSV IgG were positive). - BM on 11/10/2024 showed Hypercellular bone marrow for age with erythroid predominance and trilineage dysplasia; no increase in blasts. Mildly increased storage iron; ring sideroblasts present (5% of erythroid precursors DNMT3A: Chr2 (GRCh37):[id number]>A; NM_022552.4(DNMT3A):c.2311C>T; p.Qxy666* (3%). - Her Plasma cell dyscrasia work up was negative, HIV, cold agglutinin and PNH panels reported negative. CT C/A/P was done to rule out lymphoma which was negative. - LGL, Immunoglobulin within normal limits. - Patient pancytopenia resolved, currently she is polycythemic with low EPO levels (2.4). Her polycythemia unlikely to be secondary to smoking as her EPO is low. Differential diagnosis include PV. Plan - CBC in 3 weeks for polycythemia. - JAK2 to r/o PV. - Obtain age/sex apporpiate cancer screening with PCP (mammography). - Follow up in [address]. [address] Saavedra. Abe Doan MD [employer] in Hematology and Oncology Fellow January 28, 2025 3:13 PM documented in this encounter [facility] 01-31-2025 Note HNO ID: [id number] Author: ANGI HALEY MD Service: ? Author Type: Resident Type: Progress Notes Filed: 02/08/2025 13:11 Note Text: [facility] DEPARTMENT OF HEMATOLOGY AND MEDICAL ONCOLOGY MDS/LEUKEMIA CLINIC NEW CONSULT ____ STAFF PHYSICIAN: Dr. Serenity Saavedra MD, PhD Patient Name: Andreia Thomas DATE of SERVICE: February 01, 2025 Primary Care Physician: Kaitlyn Joy MD Reason for visit: pancytopenia r/o aplastic anemia History of Present Illness: Andreia Thomas is a 59 year old female with a PMHx of T2DM, hypothyroidism, presenting from [facility] after presenting with pancytopenia. Patient was initially admitted on 11/09/2024 at [facility] for confusion and weakness for the past 6 weeks. Her lab work was significant for pancytopenia (WBC 2.2, RBC 1.26, hemoglobin 5.3, hematocrit 15.6, platelet count 31, total bilirubin 1.7, direct bilirubin 0.4, Haptoglobin <3.5, LD 3489, AST 122, ALT 30, alkaline phosphatase 98), previous lab work in 2019 was normal. Patient required 2 U PRBCs. Her Plasma cell dyscrasia work up was negative, HIV, cold agglutinin and PNH panels reported negative. CT C/A/P was done to rule out lymphoma which was negative. Parvovirus IgG, EBV IgM and HSV IgG reported positive. Her blood count improved during her hospital stay and didn't require additional transfusions. BM on 11/10/2024 showed Hypercellular bone marrow for age with erythroid predominance and trilineage dysplasia; no increase in blasts. Mildly increased storage iron; ring sideroblasts present (5% of erythroid precursors DNMT3A: Chr2 (GRCh37):[id number]>A; NM_022552.4(DNMT3A):c.2311C>T; p.Nci577* (3%). Karyotype: 46,XX[20]. Interval History: Patient, accompanied by her , presents to [facility]. She states that she feels well overall. She complaints of chronic earache and chronic mild lightheadedness when going from lying to standing. She denies fever, chills, chest pain, palpitations, sob, abdominal pain, changes in bowel or bladder habits. Past Medical History: No past medical history on file. Medications: Current Outpatient Medications Medication Sig levothyroxine (SYNTHROID) 100 mcg tablet Take 125 mcg by mouth once daily. liothyronine (CYTOMEL) 5 mcg tablet Take 5 mcg by mouth once daily. rosuvastatin (CRESTOR) 5 mg tablet Take 5 mg by mouth once daily. pantoprazole DR (PROTONIX) 40 mg tablet Take 2 tablets by mouth once daily. RESTASIS 0.05 % ophthalmic emulsion Use 1 drop in both eyes two times a day. CELEXA 20 mg tablet Take 20 mg by mouth once daily. KLONOPIN 2 mg tablet Take 2 mg by mouth three times a day as needed for anxiety. cholecalciferol (VITAMIN D3) 50 mcg (2,000 unit) tablet Take 2,000 Units by mouth once daily. No current facility-administered medications for this visit. Allergies: ALLERGIES Allergen Reactions Simvastatin Unknown Other Reaction(s): Unknown Sulfa (Sulfonamide * Vomiting Other Reaction(s): Unknown, Vomiting Trimethoprim Unknown Other Reaction(s): Unknown Family Hx: No family history on file. 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 Vital Signs: There were no vitals taken for this visit. Physical Exam: ECOG/KPS: 0 General appearance: Well appearing, alert, in no acute distress, well-hydrated, well nourished. Head: Normocephalic, no masses, lesions, tenderness or abnormalities Lungs: Lungs clear to auscultation. No wheezing, rhonchi, rales. Heart: RRR without murmur, gallop, or rubs. No ectopy Abdomen: Normal abdominal exam, Abdomen soft, non-tender. Bowel sounds normal. No masses, organomegaly Extremities: No deformities, edema, skin discoloration, clubbing or cyanosis. Good capillary refill. Neuro: Gait normal. Reflexes normal and symmetric. Sensation grossly intact. Labs: Recent Labs 01/31/25 1422 WBC 10.28 HB 17.4* HCT 53.4* PLT 259 NA 141 K 5.1 CHLOR 101 CO2 28 BUN 12 CREAT 0.60 GLUC 119* CA 10.1 Component Ref Range AND Units 2 d ago Erythropoietin 2.6 - 18.5 mIU/mL 2.4 Low Component 01/23/2025 01/19/2025 11/23/2024 11/14/2024 11/13/2024 11/12/2024 11/11/2024 11/10/2024 11/09/2024 Auto WBC 8.24 7.24 8.66 3.3 Low 2.6 L (more content not included)... [facility] 01-23-2025 Note HEMATOLOGY and MEDIC AL ONCOLOGY Dr. Betty Edmondson MD / MD Gayb Suazo, AOCNP / Sophy Hurt CNP / Juli Harris APRN-NANI Patient Name: Andreia Thomas Date of : 1965 Encounter Date: 01/23/2025 Patient Care Team: Kaitlyn Joy MD as PCP - General (Family Medicine) Юлия Starks MD as Consulting Physician (Hematology and Oncology) IMPRESSION and ASSESSMENT: Andreia Thomas is a 59 y.o. female with: Cancer Staging No matching staging information was found for the patient. Diagnoses and all orders for this visit: Vitamin B12 deficiency - CBC and differential; Future - Comprehensive metabolic panel; Future - Vitamin B12; Future - Ambulatory referral to Hematology / Oncology; Future Bone marrow erythroid hyperplasia - Ambulatory referral to Hematology / Oncology; Future RECOMMENDATIONS and PLAN: Pancytopenia with recent B12 deficiency, fully recovered 12/2024 and with pathogenetic mutation and hypercellular marrow will refer to [facility] Bone marrow biopsy 11/10/2024 showed Hypercellular bone marrow for age with erythroid predominance and trilineage dysplasia; no increase in blasts. Mildly increased storage iron; ring sideroblasts present (5% of erythroid precursors , NGS shows pathogenetic mutation but counts fully recovered and Gaining weight Plan: [facility] and follow up cbc Follow up scope with GI 2. Positive Parvovirus, EBV and HSV Refer to ID and no further follow up 3. Homocystinemia Continue Folic acid supplementation. 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 OncoHeme NGS and karyotype evaluations are pending; results will be reported in an addendum. Addendum 2 Ancillary studies were completed at [facility]: Myeloid neoplasms, NGS, V, bone marrow: - Pathogenic mutations detected: 1.) DNMT3A: Chr2 (GRCh37):[id number]>A; NM_022552.4(DNMT3A):c.2311C>T; p.Qhj180* (3%). Addendum electronically signed by Krysten Foster MD on 11/28/2024 at 1150 EDT Addendum Ancillary studies were completed at [facility]: Chromosomes, hematologic, bone marrow: - 46,XX[20]. Addendum electronically signed by Krysten Foster MD on 11/22/2024 at 1618 EDT Final Diagnosis A-C. Bone marrow, aspirate smears, aspirate clot section, core biopsy and peripheral blood smear: - Hypercellular bone marrow for age with erythroid predominance and trilineage dysplasia; no increase in blasts. - Mildly increased storage iron; ring sideroblasts present (5% of erythroid precursors). - See comment. Lab Results Component Value Date WBC 8.24 01/23/2025 HGB 16.0 (H) 01/23/2025 HCT 49.7 (H) 01/23/2025 MCV 85.4 01/23/2025 PLT 223 01/23/2025 Lab Results Component Value Date NEUTROABS 5.56 01/23/2025 Seen ID for the parvovirus/triple virus that is currently gaining weight Her follow up marrow showed Addendum 3 Parvovirus immunostains completed on the aspirate clot section and core biopsy are negative. 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 Addendum electronically signed by Krysten Foster MD on 11/28/2024 at 1150 ED She is seeing GI for scopes, denies symptoms and is gaining weight HPI: Andreia Thomas is a 59 y.o.-year-old female with PMH of DM2, dyslipidemia, hypothyroidism and anxiety who was admitted to [facility] due to confusion and weakness for the past 4-6 weeks. Spouse at bedside reports that she had been confused ON and OFF, although she is completely alert and oriented today. CT Head at [facility] was unremarkable, CT A/P was unremarkable. She was noted to have pancytopenia with WBC 2.2, Hb 5.3 and PLT 31, for which she was transferred to [facility]. Her blood work up [...] which was normal. Blood work up done on admission showed WBC 3.49 with neutrophil count 1.4, Hb 8.4, MCV 103.8, INR 1.20, LFTs normal, TSH 0.13, LD 3489, Haptoglobin <3.5, reticulocyte count low for anemia, peripheral smear showed leukopenia, anemia and thrombocytopenia (more content not included)... [facility] 01-11-2025 History of Present illness Narrative Skin Check Location: Patient requests a full body skin examination Dermatologic history: history of Squamous Cell Carcinoma Last visit: 1 year ago Established patient All pertinent medical history, medications, and allergies were reviewed. General Exam: alert, oriented to person, place, and time, normal affect, well appearing Accompanied by spouse Scalp, Examined , exam limited by hair Right leg Examined Head, Face Examined Left leg Examined Neck Examined Right foot Examined Chest Examined Patient kept bra on Left foot Examined Back Examined Buttocks Examined Patient kept underwear on Abdomen Examined Digits,nails: Examined Right arm Examined Patient wearing nail latvian Left arm Examined Lymphatics: Not examined Hands Examined Skin Exam 1. SEBORRHEIC KERATOSIS Torso - Posterior (Back) Stuck on verrucous, ortiz-brown papules and plaques. Patient was counseled regarding these benign growths. Removal is normally not necessary, but they may be removed if they are symptomatic or for cosmetic reasons. 2. LENTIGINES Generalized Scattered ortiz macules in sun-exposed areas. The patient was informed that lentigines are benign pigmented lesions that occur on sun-exposed and sun-damaged skin. No treatment is necessary. Recommended regular use of broad spectrum sunscreen SPF 30 or higher 3. EPIDERMAL INCLUSION CYST Chest - Medial (Center) subcutaneous, mobile nodule WITHOUT central punctum. Patient was counseled regarding cysts. Although benign, cysts often slowly enlarge and can occasionally become inflamed. Discussed the only way to definitively diagnose the lesion would be to have it removed and tested. Discussed treatment options including observation vs. excision. Patient elected for observation. Notify office if lesion is enlarging or becomes symptomatic. 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 The patient was informed that angiomas are benign growths on the the skin. No treatment is necessary. Next Visit: 1 year skin check documented in this encounter [facility] 12-27-2024 Note Attestation signed by Bravo Stahl DO at 01/08/2025 1:56 PM I performed a history and physical examination of the patient Andreia Thomas, I independently reviewed the laboratory work and imaging as well as other studies mentioned in the above note; I have seen the patient along with and discussed the management with the Infectious Diseases fellow, Quique Thurman MD I have reviewed the above note, I agree with the findings and plan of care with the following additions and corrections: Agree with above, pancytopenia is improving without dedicated antivirals. Titers most likely consistent with previous infection rather than acute infection. She has a history of recurrent cold sores. Is not interested in suppressive therapy. Follow up as needed Thank you for allowing us to participate in the care of this patient. . Subjective Patient ID: Andreia Thomas is a 59 y.o. female who presents for HSV Infection. HPI 59 yo F with PMHx, Past Surg Hx, FMHx, and Social Hx per below presenting for a hospital follow up for pancytopenia with concerning serologies. Pancytopenia: - Patient presenting for a hospital follow up from October 2024. In brief: - Patient had intermittent confusion over past few days prior to October hospitalization. At [facility], CT of the head was completed showing [...] blood which did improve hemoglobin. Physician at [facility] reached out to her hematology/oncology team and they recommend transferring patient for further workup and bone marrow biopsy. Patient was seen by hematology team as inpatient. She underwent significant work up for her pancytopenia. Labs ordered include, HIV (negative), [id number], LDH (high), retic count (normal). Sneha negative. 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 Patient blood count improved and platelet count improved as well. - Patient today nearly at baseline. She is still having some neuropathic pain in toes and finger than run up her legs. - She has been on a walker for the last several months. - During workup of pancytopenia, patient had following labs: - CMV IgM negative - CMV IgM <8.0 - EBV VCA IgM Positive - EBV VCA IgM 50.5 - Parvovirus B19 IgG 7.31 - Parvovirus B19 IgM 0.42 - HSV1: 8.77; HSV 2: 0.13 Recurrent Cold Sores: - Patient frequently getting recurrent cold sores on lips. Last had one one week ago. - Patient not interested in viral suppressant therapy at this time. Past Medical History: Medical History[1] Problem List[2] Past Surgical History: Surgical History[3] Medications: Medications Ordered Prior to Encounter[4] Social History: Social History Socioeconomic History Marital status: Spouse name: None Number of children: None Years of education: None Highest education level: None Occupational History None Tobacco Use Smoking status: Former Current packs/day: 1.00 Average packs/day: 1 pack/day for 48.5 years (48.5 ttl pk-yrs) Types: Cigarettes Start date: 06/28/1976 Smokeless tobacco: Never Vaping Use Vaping status: Never Used Substance and Sexual Activity Alcohol use: Never Drug use: Never Sexual activity: None Other Topics Concern None Social History Narrative None Social Drivers of Health Financial Resource Strain: Low Risk [...] Social Connections: Not on file Intimate Partner Viol (more content not included)... [facility] 11-23-2024 Note Keep planned appoint ment Юлия Starks MD [facility] 11-23-2024 Note Attestation signed by Юлия Starks MD at 11/23/2024 10:28 PM By using the attestations below, the signing clinician agrees that I have read and verify that the documentation has been personally reviewed by me and ensure that the documentation accurately reflects the encounter. GC: I personally saw this patient on the day of the encounter, performed the frazier portion(s) of the service and participated in the management and confirm the resident's documentation. Please note there may be an additional personal documentation from me. As noted by Dr Morales Additional Comments: Pancytopenia and bone marrow negative, added ngs and parvo virus and anemia ID not able to be done. Will follow up hemolysis and he will see ID for the triple virus She is getting PT with pcp and will keep her follow ups Юлия Starks MD HEMATOLOGY and MEDICAL ONCOLOGY Dr. Betty Edmondson MD / MD Gaby Suazo, GIGI / Sophy Hurt CNP / Juli Harris APRN-NANI Patient Name: Andreia Thomas Date of : 1965 Encounter Date: 11/23/2024 Patient Care Team: Kaitlyn Joy MD as PCP - General (Family Medicine) IMPRESSION and ASSESSMENT: Andreia Thomas is a 59 y.o. female with: Cancer Staging No matching staging information was found for the patient. Diagnoses and all orders for this visit: Pancytopenia (CMS/HCC) - Lactate dehydrogenase; Future - Haptoglobin; Future - CBC and differential; Future - Comprehensive metabolic panel; Future Vitamin B12 deficiency - Lactate dehydrogenase; Future - Haptoglobin; Future - CBC and differential; Future - Comprehensive metabolic panel; Future Acquired hemolytic anemia (CMS/HCC) - Lactate dehydrogenase; Future - Haptoglobin; Future - CBC and differential; Future - Comprehensive metabolic panel; Future HSV infection - Ambulatory referral to Infectious Disease; Future Elevated homocysteine Parvovirus B19 infection - Ambulatory referral to Infectious Disease; Future EBV infection - Ambulatory referral to Infectious Disease; Future RECOMMENDATIONS and PLAN: Pancytopenia with recent B12 deficiency Bone marrow biopsy 11/10/2024 showed Hypercellular bone marrow for age with erythroid predominance and trilineage dysplasia; no increase in blasts. Mildly increased storage iron; ring sideroblasts present (5% of erythroid precursors). NGS and karyotype are pending. Plan: Check CBC, CMP, LDH and haptoglobin. Continue B12 and Folic acid supplementation. 2. Positive Parvovirus, EBV and HSV Refer to ID. 3. Homocystinemia Continue Folic acid supplementation. - Return to clinic in 2 months. Kevin Morales MD PGY-4 Hematology & Oncology Fellow SUBJECTIVE: HPI: Andreia Thomas is a 59 y.o.-year-old female with PMH of DM2, dyslipidemia, hypothyroidism and anxiety who was admitted to [facility] due to confusion and weakness for the past 4-6 weeks. Spouse at bedside reports that she had been confused ON and OFF, although she is completely alert and oriented today. CT Head at [facility] was unremarkable, CT A/P was unremarkable. She was noted to have pancytopenia with WBC 2.2, Hb 5.3 and PLT 31, for which she was transferred to [facility]. Her blood work up [...] which was normal. Blood work up done on admission showed WBC 3.49 with neutrophil count 1.4, Hb 8.4, MCV 103.8, INR 1.20, LFTs normal, TSH 0.13, LD 3489, Haptoglobin <3.5, reticulocyte count low for anemia, peripheral smear showed leukopenia, anemia and thrombocytopenia without specific cell type. CT C/A/P was done to rule out lymphoma which was negative. Patient underwent bone marrow biopsy. CBC showed continues improvements in WBC, hemoglobin and platelet count so she will discharge home in stable condition. She presented to office for care establishment. We reviewed her workup which showed normal myeloma workup, negative HIV, negative cold agglutinins, negative PNH, negative CMV, elevated methylmalonic acid and homocystine level, positive EBV, Parvovirus B19 and HSV 1. Patient reports weakness and has to use a walker to ambulate. She is in the process of establishing care with PT/OT. Spouse reports that she still has some forgetfulness. Oncology History No history exists. [No matching plan found] PMH: DM2, anxiety, dyslipidemia Social History Tobacco Use Smoking status: Former Current packs/day: 1.00 Average packs/day: 1 pack/day for 48.4 years (48.4 ttl pk-yrs (more content not included)... [facility] 11-14-2024 Note Hospital Medicine Discharge Summary Final Discharge Diagnosis: Pancytopenia - improving Status post bone marrow biopsy Symptomatic anemia Syncope - resolved Vitamin B12 deficiency Iron deficiency Acute encephalopathy - resolved Acute cystitis without hematuria Vitamin D deficiency Transaminitis - resolved Insulin dependent diabetes mellitus type II Acquired hypothyroidism GERD Anxiety Moderate protein-calorie malnutrition Admission Diagnosis: Pancytopenia (CMS/[facility]) [D61.818] Hospital course: Ms. Andreia Thomas is an 59 y.o. female who came from home with past medical history of DM2, hypothyroidism, GERD, hyperlipidemia, anxiety. She presented as a direct admission from [facility] with pancytopenia. Patient reports that she has had intermittent confusion over the last few days. at bedside also reports a syncopal episode this past Wednesday. Patient denies any prodromal symptoms. She is unclear if she hit her head. At [facility], CT of the head was completed showing [...] blood which did improve hemoglobin. Physician at [facility] reached out to her hematology/oncology team and they recommend transferring patient for further workup and bone marrow biopsy. Patient was admitted to hospitalist services for further evaluation and management. Patient was seen by hematology team as inpatient. She underwent significant work up for her pancytopenia. Labs ordered include, HIV (negative), [id number], LDH (high), retic count (normal). Sneha negative. [...] marrow Consultations During Admission: Hematology/Oncology Dear MD Joy Brenda is advised to follow up with [...] morning for 97 doses. ergocalciferol 1.25 MG (49092 Units) capsule Commonly known as: Vitamin D-2 [...] Medications These medications were sent to [facility] - [address] [place] [address] [address] [facility] [place] [address], [facility] [address] cyano (more content not included)... [facility] 11-14-2024 Note Attestation signed by Betty Edmondson MD at [...] or edited in note) Betty Edmondson MD Recruitment Internship Benjamin Shell M.D. Endowed Professor in Hematology Chief of Hematology/Oncology Relationship Executive, Hematology and Medical Oncology Fellowship Hematology/Oncology. Internal Medicine. [facility]. [facility]. Clinic: [phone] Office: [phone] HEMATOLOGY and MEDICAL ONCOLOGY: [facility] ([facility]) MD Dr. Юлия Mehta MD [...] stable since 2 U PRBC transfusion at [facility]. PLT count has now improved [...] these hours, Please contact Hematology/Oncology Fellow through [employer] Chat first For Hematology Oncology needs on weekends and after hours, please page the on-call fellow through the hospital refining still operator. Subjective Reason for consultation / Chief complaint: Pancytopenia History of Present Illness Andreia Thomas is a 59 y.o.-year-old female with PMH of DM2, dyslipidemia, hypothyroidism and anxiety who was admitted to [facility] due to confusion and weakness for the past 4-6 weeks. Spouse at bedside reports that she had been confused ON and OFF, although she is completely alert and oriented today. CT Head at [facility] was unremarkable, CT A/P was unremarkable. She was noted to have pancytopenia with WBC 2.2, Hb 5.3 and PLT 31, for which she was transferred to [facility]. Her blood work up [...] Highest education level: None Occupational History None T (more content not included)... [facility] 11-13-2024 Note -Concerning for B12 deficiency vs iatrogenic vs MDS vs MPN vs malignancy, less likely MAHA process -OSH smear showing rare schistocytes, repeat smear here negative for schistocytes -[id number] activity mildly low which is nonspecific, however [...] Plt <10 or <20 and active bleeding [facility] 11-13-2024 Note -RD following, see below [facility] 11-13-2024 Note -Continue rosuvastatin [facility] 11-13-2024 Note -Continue Protonix [facility] 11-13-2024 Note -Continue levothyrox ine -TSH low with normal T4 -Does have tender thyroid, check US thyroid -On chart review, several changes to liothyronine, check T3 [facility] 11-13-2024 Note -ISS, [facility] 11-13-2024 Note -Elevated at OSH but were unremarkable here -Hyperbilirubinemia, AST>ALT [facility] 11-13-2024 Note -Treated with 3 days CTX and levofloxacin 11/07-15 at outside hospital -UA negative -Currently asymptomatic [facility] 11-13-2024 Note -Continue Celexa [facility] 11-13-2024 Note -quiet systolic murm ur that was not heard on admission -likely this is high output -without schistocytes I do not feel overly compelled to obtain TTE at this point [facility] 11-13-2024 Note -Low at OSH and rece ived multiple doses IM replacement -Appropriate levels on recheck here [facility] 11-13-2024 Note -?2/2 UTI vs above p rocess -Aox2 on presentation however improved today -Did have syncopal episode prior to initial presentation -CT of the head negative at outside hospital [facility] 11-13-2024 Note Hospital Medicine Daily Progress Note - 11/13/2024 6:50 AM; Room: [address] [place] [address] Admission: 11/09/2024 6:46 PM; Length of stay: 4 days THE HOSPITALIST TEAM PREFERS TO USE [employer] [employer] FOR NON-URGENT COMMUNICATION 7AM-7PM. IF I DO NOT RESPOND WITHIN 20 MINUTES OR URGENT MATTERS, PLEASE CALL THROUGH THE LITERARY WRITER. FROM 7PM-7AM, PLEASE PAGE [phone](COVR). Code Status: Full Code Barriers to Discharge: [...] schistocytes, repeat smear here negative for schistocytes -[id number] activity mildly low which is nonspecific, however [...] Academy of Nutrition and Dietetics and the [place] [employer] of Enteral and Parenteral Nutrition, meets the diagnosis for malnutrition. A care plan has been established for this patient. VTE Prophylaxis: Contraindicated due to thrombocytopenia Scheduled Meds citalopram, 20 mg, oral, Nightly ergocalciferol, 50,000 Units, oral, Weekly insulin lispro, 0-5 Units, subcutaneous, TID with meals And insulin lispro, 0-4 Units, subcutaneous, Nightly iron sucrose, 200 mg, (more content not included)... [facility] 11-12-2024 Note -?2/2 UTI vs above p rocess -Aox2 on presentation however improved today -Did have syncopal episode prior to initial presentation -CT of the head negative at outside hospital [facility] 11-12-2024 Note -Elevated at OSH but were unremarkable here -Hyperbilirubinemia, AST>ALT [facility] 11-12-2024 Note -Low at OSH and rece ived multiple doses IM replacement -Appropriate levels on recheck here [facility] 11-12-2024 Note -RD following, see below [facility] 11-12-2024 Note -quiet systolic murm ur that was not heard on admission -likely this is high output -without schistocytes I do not feel overly compelled to obtain TTE at this point [facility] 11-12-2024 Note -Continue Celexa [facility] 11-12-2024 Note -[facility] -Continue levothyrox ine -TSH low with normal T4 -Does have tender thyroid, check US thyroid -On chart review, several changes to liothyronine, check T3 [facility] 11-12-2024 Note -[facility], [facility] 11-12-2024 Note -Treated with 3 days CTX and levofloxacin at outside hospital -UA negative -Currently asymptomatic [facility] 11-12-2024 Note -Continue Protonix [facility] 11-12-2024 Note -Concerning for B12 deficiency vs iatrogenic vs MDS vs MPN vs malignancy, less likely MAHA process -OSH smear showing rare schistocytes, repeat smear here negative for schistocytes -f/u [id number] activity, PNH flow, BMBx results -CT imaging negative for LAD -Did have 5 days nitrofurantoin appx 1 month ago -HemOnc on board, grateful for their input -Daily CBC however minimize phlebotomy as much as possible (re: CMP every Wed/Th) -Transfuse for Hgb <7 -Transfuse for Plt <10 or <20 and active bleeding [facility] 11-12-2024 Note Attestation signed by Haroldo Brown MD at 11/22/2024 9:54 PM I performed a history and physical examination of the patient on 11/09/2024 and discussed his management with the resident. I reviewed the resident???s note and agree with the documented findings and plan of care. Aaron Brown MD [facility] Hematology and Oncology at [facility] [address] [place] [address] HEMATOLOGY and MEDICAL ONCOLOGY: [facility] ([facility]) MD Dr. Юлия Mehta MD Patient name: Andreia Thomas Patient Today's Date and Time: 11/12/2024, 10:37 AM Admission Date: 11/09/2024 Impression: New onset pancytopenia Peripheral smear showed pancyopenia, LDH high, Haptoglobin low, bili was slightly elevated at [facility], normal here. P smear at [facility] does not show any schistocytes, CHARLIE negative, LDH ~3500, Hapto <3.5 Abs retic count is low for anemia. Bone marrow results awaited. [facility] flow awaited Recommend checking serology for CMV, EBV, Parvo, Adeno, HSV Altered mental status, resolved here Macrocytosis Hypothyroidism DM2 Anxiety Recommendations: Bone marrow biopsy done yesterday, initial eval did not show schistocytes, blasts or promyelocytes. LDH high, Haptoglobin is low, retic count is normal, Sneha negative. [facility] flow cytometry, cold agglutinins and myeloma work up pending. Follow BM biopsy report. Iron levels, B12 and Folate levels are adequate. ADAMTS [address] C/A/P negative for LAD to r/o lymphoma due to elevated LDH. Continue to monitor Hb with transfusion for Hb<7, PLT<10,000 or PLT<20,000 with bleeding. Will continue to follow. Long Elder MD PGY-6 Hematology & Oncology Fellow Inpatient Hematology/Oncology Fellow availability Wednesday - 830am-500pm, Wednesday 830am-430pm and Wednesday 830am-1200pm During these hours, Please contact Hematology/Oncology Fellow through [employer] Chat first For Hematology Oncology needs on weekends and after hours, please page the on-call fellow through the hospital refining still operator. Subjective Reason for consultation / Chief complaint: Pancytopenia History of Present Illness Andreia Thomas is a 59 y.o.-year-old female with PMH of DM2, dyslipidemia, hypothyroidism and anxiety who was admitted to [facility] due to confusion and weakness for the past 4-6 weeks. Spouse at bedside reports that she had been confused ON and OFF, although she is completely alert and oriented today. CT Head at [facility] was unremarkable, CT A/P was unremarkable. She was noted to have pancytopenia with WBC 2.2, Hb 5.3 and PLT 31, for which she was transferred to [facility]. Her blood work up [...] thrombocytopenia without specific cell type. Interval History: Patient seen in the room. is present and her son (Milad) joined in via voice call. The patient has improved cognitively per family >90%. She denies any fever, chills, CP, SOB, NVDC, skin rash or petechiae. Labs test still pending. No evidence of schistocytes on P smear. Objective Past Medical History: History reviewed. No pertinent past medical history. Past Surgical History: History reviewed. No pertinent surgical history. Medications: Scheduled: citalopram, 20 mg, oral, Nightly [START ON 11/13/2024] ergocalciferol, 50,000 Units, oral, Weekly insulin lispro, [...] Use Vaping status: Never Used Substance and S (more content not included)... [facility] 11-12-2024 Note Hospital Medicine Daily Progress Note - 11/12/2024 10:16 AM; Room: [address] [place] [address] Admission: 11/09/2024 6:46 PM; Length of stay: 3 days THE HOSPITALIST TEAM PREFERS TO USE [employer] FOR NON-URGENT COMMUNICATION 7AM-7PM. IF I DO NOT RESPOND WITHIN 20 MINUTES OR URGENT MATTERS, PLEASE CALL THROUGH THE LITERARY WRITER. FROM 7PM-7AM, PLEASE PAGE [phone](COVR). Code Status: Full Code Barriers to Discharge: [...] repeat smear here negative for schistocytes -f/u [id number] activity, PNH flow, BMBx results -CT imaging [...] Academy of Nutrition and Dietetics and the [place] [employer] of Enteral and Parenteral Nutrition, meets [...] 4x daily Pertinent Investigations Hematology: Results from [place] (more content not included)... [facility] 11-11-2024 Note -Continue levothyrox ine -TSH low with normal T4 -Does have tender thyroid, check US thyroid [facility] 11-11-2024 Note -Treated with CTX at outside hospital -UA negative -Currently asymptomatic [facility] 11-11-2024 Note -Concerning for MDS vs MPN vs malignancy, less likely MAHA process -OSH smear showing rare schistocytes, repeat smear here negative for schistocytes -f/u [id number] activity, PNH flow, BMBx results -CT imaging negative for LAD -HemOnc on board, grateful for their input -Daily CBC however minimize phlebotomy as much as possible (re: BMP every Mon/Thurs) -Transfuse for Hgb <7 -Transfuse for Plt <10 or <20 and active bleeding [facility] 11-11-2024 Note -quiet systolic murm ur that was not heard on admission -likely this is high output -without schistocytes I do not feel overly compelled to obtain TTE at this point [facility] 11-11-2024 Note -RD following, see below [facility] 11-11-2024 Note -Continue rosuvastatin [facility] 11-11-2024 Note -Continue Protonix [facility] 11-11-2024 Note -?2/2 UTI vs above p rocess -Aox2, reporting delirium that pt herself denies -Did have syncopal episode -CT of the head negative at outside hospital [facility] 11-11-2024 Note -Continue Celexa [facility] 11-11-2024 Note -ISS, [facility] 11-11-2024 Note Hospital Medicine Daily Progress Note - 11/11/2024 6:52 AM; Room: [address] [place] [address] Admission: 11/09/2024 6:46 PM; Length of stay: 2 days THE HOSPITALIST TEAM PREFERS TO USE [employer] FOR NON-URGENT COMMUNICATION 7AM-7PM. IF I DO NOT RESPOND WITHIN 20 MINUTES OR URGENT MATTERS, PLEASE CALL THROUGH THE LITERARY WRITER. FROM 7PM-7AM, PLEASE PAGE [phone](COVR). Code Status: Full Code Barriers to Discharge: [...] repeat smear here negative for schistocytes -f/u [id number] activity, PNH flow, BMBx results -CT imaging [...] Academy of Nutrition and Dietetics and the [place] [employer] of Enteral and Parenteral Nutrition, meets [...] 7 days Lab Units 11/10/24 0513 11/09/24 1946 WBC AUTO 10*3/uL 3.48* 3.49* HEMOGLOBIN g/dL 8.7* 8.4* HEMATOCRIT % 25.9* 24.8* MCV fL 107.0* 103.8* (more content not included)... [facility] 11-10-2024 Note -Continue Celexa [facility] 11-10-2024 Note -Continue rosuvastatin [facility] 11-10-2024 Note -RD following, see below [facility] 11-10-2024 Note -Continue levothyrox ine -TSH low with normal T4 [facility] 11-10-2024 Note -?2/2 UTI vs above p rocess -Aox2, reporting delirium that pt herself denies -Did have syncopal episode -CT of the head negative at outside hospital [facility] 11-10-2024 Note -ISS, [facility] 11-10-2024 Note -Treated with CTX at outside hospital -Currently asymptomatic [facility] 11-10-2024 Note -Concerning for MDS vs MPN vs malignancy, less likely MAHA process -OSH smear showing rare schistocytes, repeat smear here -Check hemolysis labs, [id number] -HemOnc on board, grateful for their input -Will be undergoing BMBx today -Daily CBC however minimize phlebotomy as much as possible [facility] 11-10-2024 Note -Continue Protonix [facility] 11-10-2024 Note Adult Nutrition Asse ssment: Name: Andreia Thomas Date: 1965 Date of [...] ideal body weight (50 kg) Calorie needs: 3312-0073 kcals/day based on Equation: 25-30 kcal/kg Protein [...] advancements Nutrition-related labs (magnesium, phosphorus, BMP) wnl (more content not included)... [facility] 11-10-2024 Note History: Pancytopeni a Procedure: 1. CT guided bone marrow aspiration. [...] and the preliminary interpretation by the hematology labor economist revealed adequate spicules. Repeat bone marrow aspirate [...] and bone marrow biopsy Electronically signed: Scott Adam Vlparveen [facility] 11-10-2024 Note Hospital Medicine Daily Progress Note - 11/10/2024 3:16 PM; Room: [address] [place] [address] Admission: 11/09/2024 6:46 PM; Length of stay: 1 days THE HOSPITALIST TEAM PREFERS TO USE [employer] FOR NON-URGENT COMMUNICATION 7AM-7PM. IF I DO NOT RESPOND WITHIN 20 MINUTES OR URGENT MATTERS, PLEASE CALL THROUGH THE LITERARY WRITER. FROM 7PM-7AM, PLEASE PAGE [phone](COVR). Code Status: Full Code Barriers to Discharge: [...] schistocytes, repeat smear here -Check hemolysis labs, [id number] -HemOnc on board, grateful for their input [...] Academy of Nutrition and Dietetics and the [place] [employer] of Enteral and Parenteral Nutrition, meets [...] last 7 days Lab Units 11/10/24 0511/09/241945 WBC AUTO 10*3/uL 3.48* 3.49* HEMOGLOBIN g/dL [...] Units 11/10/24 1112 11/10/24 0750 11/09/24 2109 (more content not included)... [facility] 11-10-2024 Note 11/10/24 1100 Admission Assessment Questions Verify insurance with patient Yes Do you understand medical disease or what brought you into the hospital? Yes Who is your current PCP? Kaitlyn Joy Can I schedule a follow up appointment for you at the time of discharge? Yes Do you understand why you are taking your current medications? Yes Are you taking your medications as prescribed? Yes Did patient provide teach back? No Pharmacy Bedside Delivery Status Interested Does the patient have a onsite case manager assigned to them through their insurance? No [...] to send link and activate MyChart? No [facility] 11-10-2024 Note Case was discussed w ith the NANCY on 11/09/2024. I agree with the history, physical, assessment, and plan of care. I discussed the findings and therapeutic plan. I agree with the documentation, except for any updates below. Cookie Louis MD [facility] 11-09-2024 Note - Initial labs at [facility] found to be WBC 2.2, hemoglobin 5.3, platelet count 31 Repeat labs at [facility] show WBC 3.49, hemoglobin 8.4, platelet count 26 -Concern for TTP -Type and screen is been completed -Transfuse for hemoglobin less than 7 and a platelet count less than 10 unless actively bleeding -Hematology/oncology consult -N.p.o. at midnight for bone marrow biopsy [facility] 11-09-2024 Note - [facility], [facility] 11-09-2024 Note - Patient with inter mittent confusion as well as a syncopal episode which has since resolved -CT of the head negative at outside hospital -Suspect likely secondary to low hemoglobin [facility] 11-09-2024 Note - Continue Celexa [facility] 11-09-2024 Note - Continue Protonix [facility] 11-09-2024 Note - Continue levothyroxine [facility] 11-09-2024 Note - Patient reportedly with a positive UTI at outside hospital and was given Rocephin, patient currently denies any UTI symptoms, will hold on antibiotics at this time [facility] 11-09-2024 Note - Continue rosuvastatin [facility] 11-09-2024 Note Hospital Medicine History and Physical 11/09/2024 11:41 PM THE HOSPITALIST TEAM PREFERS TO USE [employer] FOR NON-URGENT COMMUNICATION 7AM-7PM. IF I DO NOT RESPOND WITHIN 20 MINUTES OR URGENT MATTERS, PLEASE CALL THROUGH THE LITERARY WRITER. FROM 7PM-7AM, PLEASE PAGE [phone](COVR). Chief Complaint Direct admission with pancytopenia History of Present Illness Andreia Thomas is an 59 y.o. female who came from home with past medical history of DM2, hypothyroidism, GERD, hyperlipidemia, anxiety presents as a direct admission from [facility] with pancytopenia. Patient reports that she has had intermittent confusion over the last few days. at bedside also reports a syncopal episode this past Wednesday. Patient denies any prodromal symptoms. She is unclear if she hit her head. At [facility], CT of the head was completed showing no acute intracranial abnormality. CT of the abdomen was completed showing no acute abnormality. Initial labs were completed showing WBC 2.2, RBC 1.26, hemoglobin 5.3, hematocrit 15.6, platelet count 31, INR 1.33, sodium 144, potassium 2.7, chloride 106, BUN 28, creatinine 0.81, calcium 8.3, total bilirubin 1.7, direct bilirubin 0.4, AST 122, ALT 30, alkaline , troponin 4.2. UA was reportedly found positive for UTI and patient was started on ceftriaxone. Patient was given 2 units of blood which did improve hemoglobin. Physician at [facility] reached out to her hematology/oncology team and [...] Assessment and Plan Assessment & Plan Pancytopenia ([facility]) - Initial labs at [facility] found to be WBC 2.2, hemoglobin 5.3, platelet count 31 Repeat labs at [facility] show WBC 3.49, hemoglobin 8.4, platelet [...] this time DM2 (diabetes mellitus, type 2) ([facility]) - ISS, [facility] Acquired hypothyroidism - Continue levothyroxine GERD (gastroesophageal reflux disease) - Continue Protonix HLD (hyperlipidemia) - Continue rosuvastatin Anxiety - Continue Celexa VTE Prophylaxis: Contraindicated due to thrombocytopenia ----- Focus of this inpatient stay will remain on problems that need acute care setting for care. We will review available studies and will order additional (more content not included)... [facility] 10-18-2024 Note Progress Note-Karen daniels Patient: ANDREIA THOMAS Age: 59 years Sex: Female : 1965 Associated Diagnoses: None Author: Mike hCeng Jr, DO Preoperative Information Anesthesia Preop Info: [...] Type 2 diabetes mellitus / SNOMED CT 245537719 / Confirmed Thrombocytopenia / SNOMED CT 542042520 / Confirmed Smoker / IMO [id number] / Confirmed Added secondary to documentation in Social History. Sleep apnea / SNOMED CT 652571531 / Confirmed Pure hypercholesterolemia / SNOMED CT 031568109 / Confirmed Screen for colon cancer / SNOMED CT 090711082 / Confirmed Nausea / SNOMED CT 5315909043 / Confirmed Lesion of earlobe / SNOMED CT 188729292 / Confirmed Hypothyroidism / SNOMED CT 84812102 / Confirmed Hyperplastic colon polyp / SNOMED CT 2995768791 / Confirmed Hypercholesterolemia / SNOMED CT 90914855 / Confirmed History of colon polyps / SNOMED CT 8995393646 / Confirmed History of pancreatitis / SNOMED CT 6422014193 / Confirmed Status post cholecystectomy / SNOMED CT 2299366298 / Confirmed Heartburn / SNOMED CT 30398877 / Confirmed Thyromegaly / SNOMED CT 2664351 / Confirmed Stress incontinence / SNOMED CT 133277603 / Confirmed GERD (gastroesophageal reflux disease) / SNOMED CT 992046458 / Confirmed Gastritis / SNOMED CT 6857630 / Confirmed Acute epigastric pain / SNOMED CT [id number] / Confirmed Epigastric pain / SNOMED CT 380497876 / Confirmed Early satiety / SNOMED CT 4775722944 / Confirmed Diverticulitis / SNOMED CT 550687506 / Confirmed Diabetes mellitus / SNOMED CT 188368385 / Confirmed Depression / SNOMED CT 71689531 / Confirmed Cirrhosis / SNOMED CT 60449747 / Confirmed Cervical disc disease / SNOMED CT 4058613914 / Confirmed Blood loss anemia / SNOMED CT 1602443811 / Confirmed Elevated alkaline phosphatase level / SNOMED CT 8006525179 / Confirmed Agoraphobia / SNOMED CT 379406501 / Confirmed Abdominal pain / SNOMED CT 01153887 / Confirmed Resolved: Thyroid dysfunction / SNOMED CT 633036244 Resolved: Panic disorder / SNOMED CT 6327966452 Resolved: FH: cholecystectomy / SNOMED CT 8158766890 Canceled: Abnormal cardiac CT angiography / SNOMED CT 4605844432 Histories Procedure history: Esophagogastroduodenoscopy ([id number]) on 05/22/2022 at 56 Years. Comments: 05/22/2022 9:42 Salena Davidson RN gastric biopsy, gastritis, duodenal biopsy r/o celiac disease TVT with sling on 09/10/2017 at 52 Years. Abdominal hysterectomy (767447048). Cholecystectomy (46003716). History of arthroscopy right knee ([id number]). feet b/l surgery (960476086). Closed fracture of right wrist ([id number]). History of cholecystectomy (situation) (8782315577). Social History Social & Psychosocial Habits Alcohol 10/10/2024 Risk Assessment: Denies Alcohol Use Substance Abuse 10/10/2024 Risk Assessment: Denies Substance Abuse Tobacco 10/10/2024 Risk Assessment: High Risk 10/10/2024 Tobacco Use: 10 or more cigarettes (1/ . Physical Examination Airway: Mallampati classification: II (soft palate, fauces, uvula visible). Respiratory: adequate air exchange. Cardiovascular: Regular rhythm. Plan [place] [employer] Anesthesiologists (ASA) physical status classification: Class III. Anesthetic Preoperative Plan: Anesthesia General, and Patient educated on benefits, alternatives and inherent risk of anesthesia including, but not all inclusive, Allergic reactions, dental damage, nerve damage and cardio-pulmonary complications and wishes to proceed with anesthetic plan.. [facility] Comment on above: Result Comment: Elec tronically Signed By: Mike Cheng Jr, DO\.br\Date and Time Signed: 10/18/24 07:32 EDT 10-18-2024 Note Progress Note-Physic jeremiah Patient: ANDREIA THOMAS Age: 59 years Sex: Female : 1965 Associated Diagnoses: None Author: Mike Cheng Jr, DO Postoperative Information Postoperative disposition: Postoperative disposition: To PACU. Optimetrix number: Optimetrix number [id number]. Anesthetic utilized: General. Health Status Allergies: Allergic [...] when meets criteria ( To home ). [facility] Comment on above: Result Comment: Kenneth vizcaino Signed By: Mike Cheng Jr, DO.craig\Date and Time Signed: 10/18/24 07:31 EDT 10-16-2024 Hospital Discharge instructions Patient Education 10/16/2024 10:08:28 Esophagitis Esophagitis Esophagitis is inflammation of the esophagus. The esophagus is the tube that carries food from the mouth to the stomach. Esophagitis can cause soreness or pain in the esophagus. This condition can make it difficult and painful to swallow. What are the causes? Most causes of esophagitis are not serious. Common causes of this condition include: Gastroesophageal reflux disease (GERD). This is when stomach contents move back up into the esophagus (reflux). Repeated vomiting. An allergic reaction, especially caused by food allergies (eosinophilic esophagitis). Injury to the esophagus by swallowing large pills with or without water, or swallowing certain types of medicines. Swallowing harmful chemicals, such as household cleaning products. Drinking a lot of alcohol. An infection of the esophagus. This most often occurs in people who have a weakened immune system. Radiation or chemotherapy treatment for cancer. Certain diseases such as sarcoidosis, Crohn's disease, and scleroderma. What are the signs or symptoms? Symptoms of this condition include: Difficult or painful swallowing. Pain with swallowing acidic liquids, such as citrus juices. You may also have pain when you burp. Chest pain and difficulty breathing. Nausea and vomiting. Pain in the abdomen. Weight loss. Ulcers in the mouth and white patches in the mouth (candidiasis). Fever. Coughing up blood or vomiting blood. Stool that is black, tarry, or bright red. How is this diagnosed? This condition may be diagnosed based on your medical history and a physical exam. You may also have other tests, including: A test to examine your esophagus and stomach with a small flexible tube with a camera (endoscopy). A test that measures the acidity level in your esophagus. A test that measures how much pressure is on your esophagus. A barium swallow or modified barium swallow to show the shape, size, and functioning of your esophagus. Allergy tests. How is this treated? Treatment for this condition depends on the cause of your esophagitis. In some cases, steroids or other medicines may be given to help relieve your symptoms or to treat the underlying cause of your condition. You may have to make some lifestyle changes, such as: Avoiding alcohol. Quitting any products that contain nicotine or tobacco. These products include cigarettes, chewing tobacco, and vaping devices, such as e-cigarettes. If you need help quitting, ask your health care provider. Changing your diet. Exercising. Changing your sleep habits and your sleep environment. Follow these instructions at home: Medicines Take zeip-fvm-sozuhtj and prescription medicines only as told by your health care provider. Do not take aspirin, ibuprofen, or other NSAIDs unless your health care provider told you to do so. If you have trouble taking pills: ?Use a pill splitter to decrease the size of the pill. This will decrease the chance of the pill getting stuck or injuring your esophagus. ?Drink water after you take a pill. Eating and drinking Avoid foods and drinks that seem to make your symptoms worse. Follow a diet as recommended by your health care provider. This may involve avoiding foods and drinks such as: ?Coffee and tea, with or without caffeine. ?Drinks that contain alcohol. ?Energy drinks and sports drinks. ?Carbonated drinks or sodas. ?Chocolate and cocoa. ?Peppermint and mint flavorings. ?Garlic and onions. ?Horseradish. ?Spicy and acidic foods, including peppers, chili powder, soriano powder, vinegar, hot sauces, and barbecue sauce. ?[place] fruit juices and citrus fruits, such as oranges, karl, and limes. ?Tomato-based foods, such as red sauce, chili, salsa, and pizza with red sauce. ?Fried and fatty foods, such as donuts, rwandan fries, potato chips, and high-fat dressings. ?High-fat meats, such as hot dogs and fatty cuts of red and white meats, such as rib eye steak, sausage, ham, and jasso. ?High-fat dairy items, such as whole milk, butter, and cream cheese. Lifestyle Eat small, frequent meals instead of large meals. Avoid drinking large amounts of liquid with your meals. Avoid eating meals during the 2 3 hours before bedtime. Avoid lying down right after you eat. Do not exercise right after you eat. Do not use any products that contain nicotine or tobacco. These products include cigarettes, chewing tobacco, and vaping devices, such as e-cigarettes. If you need help quitting, ask your health care provider. General instructions Pay attention to any changes in your symptoms. Let your health care provider know about them. Wear loose-fitting clothing. Do not wear anything tight around your waist that causes pressure on your abdomen. Raise (elevate) the head of your bed about 6 inches (15 cm). You may need to use a wedge to do this. Try relaxation strategies such as yoga, deep breathing, or meditation to manage stress. If you need help reducing stress, ask your health care provider. If you are overweight, reduce your weight to an amount that is healthy for you. Ask your health care provider for guidance about a safe weight loss goal. Keep all follow-up visits. This is important. Contact a health care provider if: You have new symptoms. You have unexplained weight loss. You have difficulty swallowing, or it hurts to swallow. You have wheezing or a cough that does not go away. Your symptoms do not improve with treatment. You have frequent heartburn for more than two weeks. Get help right away if: You have sudden severe pain in your arms, neck, jaw, teeth, or back. You suddenly feel sweaty, dizzy, or light-headed. You have chest pain or shortness of breath. You vomit and the vomit is green, yellow, or black, or it looks like blood or coffee grounds. Your stool is red, bloody, or black. You have a fever. You cannot swallow, drink, or eat. These symptoms may represent a serious problem that is an emergency. Do not wait to see if the symptoms will go away. Get medical help right away. Call your local emergency services (911 in the [place] Do not drive yourself to the hospital. Summary Esophagitis is inflammation of the esophagus. Most causes of esophagitis are not serious. Follow your health care provider's instructions about eating and drinking. Contact a health care provider if you have new symptoms, have weight loss, or coughing that does not stop. Get help right away if you have severe pain in the arms, neck, jaw, teeth, or back, or if you have chest pain, shortness of breath, or fever. This information is not intended to replace advice given to you by your health care provider. Make sure you discuss any questions you have with your health care provider. Document Revised: 12/23/2020 Document Reviewed: 12/23/2020 [employer] Patient Education 2023 [employer]. 10/16/2024 10:08:24 Gastritis, Adult, Hvjc-zb-Anol Gastritis, Adult Gastritis is irritation and swelling (inflammation) of the stomach. There are two kinds of gastritis: Acute gastritis. This kind develops quickly. Chronic gastritis. This kind is much more common. It develops slowly and lasts for a long time. It is important to get help for this condition. If you do not get help, your stomach can bleed, and you can get sores (ulcers) in your stomach. What are the causes? This condition may be caused by: Germs that get to your stomach and cause an infection. Drinking too much alcohol. Medicines you are taking. Having too much acid in the stomach. Having a disease of the stomach. Other causes may include: An allergic reaction. Some cancer treatments (radiation). Smoking cigarettes or using products that contain nicotine or tobacco. In some cases, the cause of this condition is not known. What increases the risk? Having a disease of the intestines. Having Crohn's disease. Using aspirin or ibuprofen and other NSAIDs to treat other conditions. Stress. What are the signs or symptoms? Pain in your stomach. A burning feeling in your stomach. Feeling like you may vomit (nauseous). Vomiting or vomiting blood. Feeling too full after you eat. Weight loss. Bad breath. Blood in your poop (stool). In some cases, there are no symptoms. How is this treated? This condition is treated with medicines. The medicines that are used depend on what caused the condition. You may be given: Antibiotic medicine, if your condition was caused by an infection from germs. H2 blockers and similar medicines, if your condition was caused by too much acid in the stomach. Treatment may also include stopping the use of certain medicines, such as aspirin or ibuprofen. Follow these instructions at home: Medicines Take fnzm-dqy-ktuvdzm and prescription medicines only as told by your doctor. If you were prescribed an antibiotic medicine, take it as told by your doctor. Do not stop taking it even if you start to feel better. Alcohol use Do not drink alcohol if: ?Your doctor tells you not to drink. ?You are , may be , or are planning to become . If you drink alcohol: ?Limit your use to: ?0 1 drink a day for women. ?0 2 drinks a day for men. ?Know how much alcohol is in your drink. In the [place] one drink equals one 12 oz bottle of beer (355 mL), one 5 oz glass of wine (148 mL), or one 1 oz glass of hard liquor (44 mL). General instructions Eat small meals often, instead of large meals. Avoid foods and drinks that make you feel worse. Drink enough fluid to keep your pee (urine) pale yellow. Talk with your doctor about ways to manage stress. You can exercise or do deep breathing, meditation, or yoga. Do not smoke or use any products that contain nicotine or tobacco. If you need help quitting, ask your doctor. Keep all follow-up visits. Contact a doctor if: Your symptoms get worse. Your stomach pain gets worse. Your symptoms go away and then come back. You have a fever. Get help right away if: You vomit blood or something that looks like coffee grounds. You have black or dark red poop. You throw up any time you try to drink fluids. These symptoms may be an emergency. Get help right away. Call your local emergency services (911 in the [place] Do not wait to see if the symptoms will go away. Do not drive yourself to the hospital. Summary Gastritis is irritation and swelling (inflammation) of the stomach. You must get help for this condition. If you do not get help, your stomach can bleed, and you can get sores (ulcers) in your stomach. You can be treated with medicines for germs or medicines to block too much acid in your stomach. This information is not intended to replace advice given to you by your health care provider. Make sure you discuss any questions you have with your health care provider. Document Revised: 10/18/2021 Document Reviewed: 10/18/2021 [employer] Patient Education 2023 [employer] 10/16/2024 10:08:23 Hiatal Hernia Hiatal Hernia A hiatal hernia occurs when [...] condition is more likely to develop in: Older people. Age is a major risk factor for a hiatal hernia, especially if you are over the age of 50. women. People who are overweight. People who have frequent constipation. What are the signs or symptoms? Symptoms of this condition usually develop in the form of GERD symptoms. Symptoms include: Heartburn. Upset stomach (indigestion). Trouble swallowing. Coughing or wheezing. Wheezing is making high-pitched whistling sounds when you breathe. Sore throat. Chest pain. Nausea and vomiting. How is this diagnosed? This condition may be diagnosed during testing for GERD. Tests that may be done include: X-rays of your stomach or chest. An upper gastrointestinal (GI) series. This is an X-ray exam of your GI tract that is taken after you swallow a chalky liquid that shows up clearly on the X-ray. Endoscopy. This is a procedure to look into your stomach using a thin, flexible tube that has a tiny camera and light on the end of it. How is this treated? This condition may be treated by: Dietary and lifestyle changes to help reduce GERD symptoms. Medicines. These may include: ?Kdjh-ymj-qkebeee antacids. ?Medicines that make your stomach empty more quickly. ?Medicines that block the production of stomach acid (H2 blockers). ?Stronger medicines to reduce stomach acid (proton pump inhibitors). Surgery to repair the hernia, if other treatments are not helping. If you have no symptoms, you may not need treatment. Follow these instructions at home: Lifestyle and activity Do not use any products that contain nicotine or tobacco. These products include cigarettes, chewing tobacco, and vaping devices, such as e-cigarettes. If you need help quitting, ask your health care provider. Try to achieve and maintain a healthy body weight. Avoid putting pressure on your abdomen. Anything that puts pressure on your abdomen increases the amount of acid that may be pushed up into your esophagus. ?Avoid bending over, especially after eating. ?Raise the head of your bed by putting blocks under the legs. This keeps your head and esophagus higher than your stomach. ?Do not wear tight clothing around your chest or stomach. ?Try not to strain when having a bowel movement, when urinating, or when lifting heavy objects. Eating and drinking Avoid foods that can worsen GERD symptoms. These may include: ?Fatty foods, like fried foods. ?[place] fruits, like oranges or lemon. ?Other foods and drinks that contain acid, like orange juice or tomatoes. ?Spicy food. ?Chocolate. Eat frequent small meals instead of three large meals a day. This helps prevent your stomach from getting too full. ?Eat slowly. ?Do not lie down right after eating. ?Do not eat 1 2 hours before bed. Do not drink beverages with caffeine. These include cola, coffee, cocoa, and tea. Do not drink alcohol. General instructions Take hlct-aiy-icdmlld and prescription medicines only as told by your health care provider. Keep all follow-up visits. Your health care provider will want to check that any new prescribed medicines are helping your symptoms. Contact a health care provider if: Your symptoms are not controlled with medicines or lifestyle changes. You are having trouble swallowing. You have coughing or wheezing that will not go away. Your pain is getting worse. Your pain spreads to your arms, neck, jaw, teeth, or back. You feel nauseous or you vomit. Get help right away if: You have shortness of breath. You vomit blood. You have bright red blood in your stools. You have black, tarry stools. These symptoms may be an emergency. Get help right away. Call 911. Do not wait to see if the symptoms will go away. Do not drive yourself to the hospital. Summary A hiatal hernia occurs when part of the stomach slides above the muscle that separates the abdomen from the chest. A person may be born with a weakness in the hiatus, or a weakness can develop over time. Symptoms of a hiatal hernia may include heartburn, trouble swallowing, or sore throat. Management of a hiatal hernia includes eating frequent small meals instead of three large meals a day. Get help right away if you vomit blood, have bright red blood in your stools, or have black, tarry stools. This information is not intended to replace advice given to you by your health care provider. Make sure you discuss any questions you have with your health care provider. Document Revised: 08/11/2022 Document Reviewed: 08/11/2022 [employer] Patient Education 2023 [employer]. 10/16/2024 10:08:13 Endoscopy, Care After Procedure [facility] [place] [facility]) Endoscopy Care After Procedure Please read the [...] after discharge, please call your doctor. ACTIVITY You may resume your regular activity but move at a slower pace for the next 24 hours. Take frequent rest periods for the next 24 hours. Walking will help expel (get rid of) the air and reduce the bloated feeling in your abdomen. No driving for 24 hours (because of the anesthesia (medicine) used during the test). You may shower. Do not sign any important legal documents or operate any machinery for 24 hours (because of the anesthesia used during the test). NUTRITION Drink plenty of fluids. You may resume your normal diet. Begin with a light meal and progress to your normal diet. Avoid alcoholic beverages for 24 hours or as instructed by your caregiver. MEDICATIONS You may resume your normal medications unless your caregiver tells you otherwise. WHAT YOU CAN EXPECT TODAY You may experience abdominal discomfort such as a feeling of fullness or gas pains. FOLLOW-UP Your doctor will discuss the results of your test with you. SEEK IMMEDIATE MEDICAL ATTENTION IF ANY OF THE FOLLOWING OCCUR: Excessive nausea (feeling sick to your stomach) and/or vomiting. Severe abdominal pain and distention (swelling). Trouble swallowing. Temperature over 100 F (37.8 C). Rectal bleeding or vomiting of blood. Document Released: 01/26/2005 Document Re-Released: 12/06/2006 [employer] Patient Information 2009 [employer]. [facility] 10-16-2024 Note Patient Education - Text Endoscopy Care After [...] blood. Document Released: 01/26/2005 Document Re-Released: 12/06/2006 [facility]??? Patient Information ???2009 [employer]. Gastroenterology Esophagitis Esophagitis is inflammation of the [...] these instructions at home: Medicines ??? Take xiwh-tgd-tasuhtv and prescription medicines only as told by your health care provider. ??? Do not take aspirin, ibuprofen, or other NSAIDs unless yo (more content not included)... [facility] 08-11-2023 History of Present illness Narrative History: Pt is here for [...] Type A tympanogram documented in this encounter [facility] 05-22-2022 Hospital Discharge instructions Patient Education 05/22/2022 08:35:59 Upper Endoscopy, [...] what activities are safe for you. Take dqct-tbo-fjkjlmh and prescription medicines only as told by [...] 12/13/2012 Document Revised: 12/06/2018 Document Reviewed: 11/14/2018 [employer] Patient Education 2020 [employer]. 05/22/2022 08:35:59 Gastritis, Adult Gastritis, Adult Gastritis [...] medicines. These include steroids, antibiotics, and some mmsr-sam-jsbcael medicines, such as aspirin or ibuprofen. Having [...] Follow these instructions at home: Medicines Take sfdp-sqk-txynjfb and prescription medicines only as told by [...] 06/08/2002 Document Revised: 11/01/2018 Document Reviewed: 11/01/2018 [employer] Patient Education 2020 [employer]. 05/22/2022 08:35:59 Gluten-Free Diet for Celiac Disease, [...] have questions, talk with your diet and product development specialist (registered dietitian) or your health care [...] how a food is processed, ask the scrap crusher. What frazier words help to identify gluten? [...] are safe to eat. In the [place] [employer] are also required to list common food allergens, including wheat, on their labels. Recommended foods Grains Amaranth, meneses flours, 100% buckwheat flour, corn, millet, nut flours or nut meals, GF oats, quinoa, rice, sorghum, teff, rice wafers, pure cornmeal tortillas, popcorn, and hot cereals made from cornmeal. [place], rice, wild rice. Some rice noodles or meneses noodles. Arrowroot starch, corn bran, corn flour, corn germ, cornmeal, corn starch, potato flour, potato starch flour, and rice bran. Plain, brown, and sweet rice flours. Rice latvian, soy flour, and tapioca starch. Vegetables All [...] and lunch meats. Bread-containing products, such as Japanese steak, croquettes, meatballs, and meatloaf. Most tuna [...] have questions, talk with your diet and product development specialist (registered dietitian) or your health care [...] 06/14/2006 Document Revised: 05/27/2018 Document Reviewed: 03/29/2017 [employer] Patient Education 2020 [employer]. 05/22/2022 08:35:59 Celiac Disease Celiac Disease Celiac [...] 06/14/2006 Document Revised: 11/02/2018 Document Reviewed: 11/02/2018 [employer] Patient Education 2020 [employer]. Follow Up Care 04/14/2022 12:39:34 With:Dannie STARKS Address: [address] [place] [address] Business (1) When: Unknown [facility] 04-15-2022 Evaluation note Encounter Date Diagnosis Assessment Notes Mar, Type 2 diabetes mellitus with hyperglycemia , without long-term current use of insulin (ICD-10 - E11.65) [facility] Other 09-14-2022 Evaluation note* Encounter Date Diagnosis Assessment Notes Treatment Notes Treatment Clinical Notes Feb, Type 2 diabetes mellitus with hyperglycemia, without long-term current use of insulin (ICD-10 - E11.65) Managing type 2 diabetes material was published 1. Controlled, a Type 2 diabetes with A1c of 6.8% 02/18/22 2. Blood glucose levels according to aline 2 cgm 02/19/22-03/04/22: Avg glucose 103. >250-0%, [...] last visit, continue with weight loss efforts [facility] Other 08-24-2022 Evaluation note* Encounter Date Diagnosis [...] weekly. She is agreeable to wearing sample aline 2. Pt added aline 2 nancy to her phone. Reviewed with pt how to use nancy/apply cgm. Applied aline 2 cgm to back of left arm [...] or diabetes medication issues. 6. Prescriptions: Uses Sirigen or RA Rubalcava. Sample aline 2 cgm and ozempic 0.5mg pen given today. Sent rx for aline 2 to [facility]. Pt is to notify office if tolerating ozempic after week 5 so prescription may be sent to [facility]. Jan, Hyperlipidemia, unspecified hyperlipidemia type (ICD-10 - [...] was published Pt would greatly benefit from [facility] personal use of CGM device such as a Freestyle Aline 2 with ability for high/low alarm feature. A CGM would improve ease of access to glucose results and reduce risk of hypoglcyemia/hyper glycemia. [employer] Other Chief complaint+Reason for visit Narrative* Chief Complaint no meter Reason for Visit Dietary counseling a nd surveillance Hyperlipidemia Type 2 diabetes mellitus [facility] Work Phone: chief complaint+Reason for visit Narrative* Chief Complaint no meter Reason for Visit BMI 30.0-30.9,adult Dietary counseling and surveillance Hyperlipidemia Type 2 diabetes mellitus Type 2 diabetes mellitus [facility] Work Phone: Evaluation + Plan note Future Appointments Appointment Date:04/24/2022 11:00:00 AM Scheduled Provider: [facility] Type:CT Sinus/Orbits/Maxillofacial (FT) Appointment Date:05/22/2022 08:15:00 AM Scheduled Provider: Location:[facility] Surgical Services Appointment Type:Surgery FT Future Scheduled Tests Radiology* CT Maxillofacial w/o Contrast 04/24/22 [facility] Evaluation + Plan note Future Appointments Appointment Date:05/22/2022 08:15:00 AM Scheduled Provider: Location:[facility]uled Tests Radiology* MRI Cholangiogram Pancreatography ([facility]) 06[facility]05[facility]22 [facility] Future Appointments Appointment Date:09/02/2022 09:00:00 AM Scheduled Provider:Dannie STARKS MD Location:[facility] Appointment Type:[facility] Follow Up Future Scheduled Tests Radiology* MRI Cholangiogram Pancreatography (mrcp) 06/05/22 [facility] Evaluation + Plan note Future Appointments Appointment Date:09/02/2022 09:00:00 AM Scheduled Provider:Dannie STARKS MD Location:[facility] Appointment Type:BAD [facility] Future Appointments Appointment Date:06/12/2024 08:00:00 AM Scheduled Provider: [facility] Appoint[facility] Type:NM Gastric Emptying Study () Appointment Date:07/28/2024 08:15:00 AM Scheduled Provider:Roseline Melendrez MD Location:[facility] [facility] Appointment Type:BAD Follow Up Future Scheduled Tests Laboratory* Antimitochondrial Antibody, Quantitative 06/02/24 * Alkaline Phosphatase Isoenzymes 06/02/24 * CBC w/ Auto Diff 06/02/24 * Comprehensive Metabolic Panel 06/02/24 Radiology* NM Gastric Emptying Study 06/12/24 [facility] Evaluation + Plan note Future Appointments Appointment Date:07/28/2024 08:15:00 AM Scheduled Provider:Roseline Melendrez MD Location:[facility] Appointment Type:[facility] Follow Up Future Scheduled Tests Laboratory* Antimitochondrial Antibody, Quantitative 06/02/24 * Alkaline Phosphatase Isoenzymes 06/02/24 * CBC w/ Auto Diff 06/02/24 * Comprehensive Metabolic Panel 06/02/24 [facility] Evaluation + Plan note Future Appointments Appointment Date:10/27/2024 09:00:00 AM Scheduled Provider: [facility] Appoint[facility] Type:US Abdominal/Pelvis () Appointment Date:10/31/2024 12:45:00 PM Scheduled Provider:Roseline Melendrez MD Location:[facility] Appointment Type:[facility] Follow Up Future Scheduled Tests Laboratory* Oqbff-3-Nwzhancronq 10/10/24 * Ceruloplasmin 10/10/24 * Antimitochondrial Antibody, Quantitative 06/02/24 * Antimitochondrial Antibody, Quantitative 10/10/24 * Alkaline Phosphatase Isoenzymes 06/02/24 * Smooth Muscle Antibody Screen 10/10/24 * CIPRIANO w/Reflex if POS 10/10/24 * IgA, Quant. 10/10/24 * IgG, Quant. 10/10/24 * t-Transglutaminase IgA 10/10/24 * TIBC Calculated 10/10/24 * Hepatitis A Virus (HAV) Antibody, Total 10/10/24 * Acute Hepatitis A B C Panel 10/10/24 * Vitamin D 25 Hydroxy 10/10/24 * Alpha Fetoprotein Tumor Marker 10/10/24 * Alpha Fetoprotein Tumor Marker 04/11/25 * CBC w/ Auto Diff 06/02/24 * Comprehensive Metabolic Panel 06/02/24 * Hepatitis B Surface Antibody 10/10/24 * Iron Level 10/10/24 * PT 10/10/24 Radiology* US Abdomen Complete 10/27/24 [facility] evaluation + Plan note Future Appointments Appointment Date:10/31/2024 12:45:00 PM Scheduled Provider:Roseline Melendrez MD Location:[facility] Appointment Type:[facility] Follow Up Diagnostic Tests Pending * Alkaline Phosphatase Isoenzymes 10/27/24 * Hepatitis A Virus (HAV) Antibody, Total 10/27/24 * Hepatitis B Surface Antibody 10/27/24 * Wnhdr-4-Mnbbmsdmhfw 10/27/24 * CIPRIANO w/Reflex if POS 10/27/24 * Antimitochondrial Antibody, Quantitative 10/27/24 * Ceruloplasmin 10/27/24 * Acute Hepatitis A B C Panel 10/27/24 * IgA, Quant. 10/27/24 * IgG, Quant. 10/27/24 * Smooth Muscle Antibody Screen 10/27/24 * t-Transglutaminase IgA 10/27/24 * Alpha Fetoprotein Tumor Marker 10/27/24 Future Scheduled Tests Laboratory* Antimitochondrial Antibody, Quantitative 06/02/24 * Alpha Fetoprotein Tumor Marker 04/11/25 [facility] Evaluation noteNo InformationNort [employer] Other Evaluation noteNo assessment information available [facility] Work Phone: Evaluation note* Diagnosis OME (otitis media with effusion), left- Primary Conductive hearing loss of right ear with restricted hearing of left ear [facility] Diagnosis Onset Date Resolution Status Dietary counseling and surveillance acute Hyperlipidemia acute Type 2 diabetes mellitus acu te [facility] Work Phone: Evaluation note* Diagnosis Onset Date Resolution Status BMI 30.0-30.9,adult acute Dietary counseling and surveillance acute Hyperlipidemia acute Type 2 diabetes mellitus acu te Type 2 diabetes mellitus acu te [facility] Work Phone: Evaluation note* Diagnosis Onset Date Resolution Status BMI 30.0-30.9,adult acute Dietary counseling and surveillance acute Hyperlipidemia acute Type 2 diabetes mellitus acu te Type 2 diabetes mellitus acu te BMI 30.0-30.9,adult acute Dietary counseling and surveillance acute Hyperlipidemia acute Type 2 diabetes mellitus acu te Hypoglycemia noneactive [facility] Work Phone: Evaluation note* Diagnosis Seborrheic keratosis- Primary Lentigines Epidermal inclusion cyst Sebaceous cyst Capillary angioma Nevus, non-neoplastic documented [facility] encounter [facility]* Diagnosis Clonal hematopoiesis of indeterminate potential- Primary documented in this encounter [facility] general Narrative - Reported* Type Description Date [...] TARSAL METATARSAL Hospitalization History SEE ABOVE SURGERY [employer] Other Hospital course Narrative No data available for this section [facility] Hospital Discharge instructions No data available for this section [facility] Progress note No data available for this section [facility] Reason for visit NarrativeSelf Referral, New patient Type 2 NIDDM apt with [employer] 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, 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, 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 [employer] Other Summary Purpose Family History No Family [...] surveillance Hyperlipidemia Type 2 diabetes mellitus Hypoglycemia Chief Complaint Admit Date Unknown November 07, 2024 10:38 am Chief Complaint Admit Date Unknown November 07, 2024 10:38 am Unknown November 07, 2024 7:09p m Additional Source Comments REASON FOR VISIT (unrecogniz ed section and content) Reason Comments Skin Check Reason Comments Consult Specialty Diagnoses / Procedures Referred By Contac t Referred To Contact Hematology/Oncology Diagnoses Vitamin B12 deficiency Bone marrow erythroid hyperplasia Procedures OFFICE/OUTPATIENT [facility] 60 MINUTES [id number] (SNOMED CT) - AMB REFERRAL TO HEMATOLOGY / ONCOLOGY Юлия Starks MD [address] [place] [address] Phone: tel: fax: [place] [address] [place] [address] Phone: tel: fax: Referral ID Status Reason Start Date Expiration Date V isits Requested Visits Authorized [id number] Pending Review 01/23/2025 01/23/2026 1 1 Patient Care team informatio n (unrecognized section and content) Veterinarian Poultry Relationship Specialty Start Date End Date Kaitlyn Joy MD [address] [place] [address] PCP - General Family Medicine 05/03/23 Veterinarian Poultry Relationship Specialty Start Date End Date Kaitlyn Joy MD [address] [place] [address] PCP - General Family Medicine 05/03/23 Team Status: Active Member Role Status Niles Joy MD Primary Care Provider Active Team Status: Inactive Member Role Status Niles Joy MD Primary Care Provider Active Start: March 08, 2024 End: March 08, 2024 Dewey Davidson APRN Attending Provider Active Start: March 08, 2024 End: March 08, 2024 Team Status: Inactive Member Role Status Niles Joy MD Primary Care Provider Active Start: March 09, 2024 End: March 09, 2024 Sophy Christianson RN Attending Provider Active Start: March 09, 2024 End: March 09, 2024 Dewey Davidson APRN Active Start: March 09, 2024 End: March 09, 2024 Team Status: Inactive Member Role Status Dates Kaitlyn Joy MD Primary Care Provider Active Start: April 10, 2024 End: April 10, 2024 Dewey Davidson APRN Attending Provider Active Start: April 10, 2024 End: April 10, 2024 Team Status: Inactive Member Role Status Dates Jose Eduardo Ann DO Attending Provider Active S tart: November 07, 2024 End: November 07, 2024 Team Status: Inactive Member Role Status Dates Kaitlyn Joy MD Attending Provider Active Sta rt: November 07, 2024 End: November 07, 2024 Veterinarian Poultry Relationship Specialty Start Date End Date Kaitlyn Joy MD [address] [place] [address] PCP - General Family Medicine 05/03/23 Veterinarian Poultry Relationship Specialty Start Date End Date Kaitlyn Joy MD [address] [place] [address] PCP - General Family Medicine 05/03/23 Veterinarian Poultry Relationship Specialty Start Date End Date Kaitlyn Joy MD [address] [place] [address] PCP - General Family Medicine 01/24/25 Юлия Starks MD [address] [place] [phone] Referring Hematology/Oncology 01/24/25 INFORMATION SOURCE (unrecogn ized section and content) DATE CREATED AUTHOR 09/20/2022 [facility] DATE CREATED AUTHOR AUTHOR'S ORGANIZ ATION 10/24/2024 [facility] DATE CREATED AUTHOR AUTHOR'S ORGANIZ ATION 11/01/2024 [facility] DATE CREATED AUTHOR AUTHOR'S ORGANIZ ATION 11/02/2024 [facility] DATE CREATED AUTHOR AUTHOR'S ORGANIZ ATION 11/10/2024 [facility] DATE CREATED AUTHOR AUTHOR'S ORGANIZ ATION 11/23/2024 [facility] DATE CREATED AUTHOR AUTHOR'S ORGANIZ ATION 12/25/2024 [facility] DATE CREATED AUTHOR AUTHOR'S ORGANIZ ATION 01/15/2025 [facility] DATE CREATED AUTHOR AUTHOR'S ORGANIZ ATION 02/09/2025 [facility] DATE CREATED AUTHOR AUTHOR'S ORGANIZ ATION 02/25/2025 [facility] Goals (unrecognized section and content) Goals may be documented in a n alternate section Source Comments (unrecognize d section and content) In the event this informatio n is protected by the Federal Confidentiality of Alcohol and Drug Abuse Patient Records regulations: The Federal rules restrict any use of the information to criminally investigate or prosecute any alcohol or drug abuse patient.[facility] FOR RECORDS PERTAINING TO PATIENTS WHO ARE [...] BE BASED ON THE PRIMARY CLINICAL RECORDS. [facility]. provides no warranty or guarantee of the accuracy or completeness of information in this document.
== END 2025-02-28 09:53 | disposition home or self-care (01) ==
LOC: CARD 09:53
PROVIDERS: PCP Family Medicine; Visit Provider Family Medicine
DX: R00.2 Palpitations (principal)
CPT/HCPCS: 93242

== ENCOUNTER 2025-03-06 12:09 | Outpatient (OUT) | payer OTHER, SELFPAY ==
--- OUTSIDE RECORDS SUMMARY | 2025-01-22 12:14 | XMS_ITS ---
Author Organization The [facility] in [place] Address [address] [place] [address] Care Team Providers Care Vehicle Service Agent Name Role Phone Salazar Downing Primary Care Provider REASON FOR VISIT Refill Clonazepam Medications Medication SIG (Take, Route, Fr equency, Duration) Notes Start Date End Date Status clonazePAM 2 MG 2-3 Oral daily for 90 days 025 Active Encounters Encounter Location Date Provider Diagnosis [address] [address] 01/22/2025 Salazar Downing GERD (gastroesophage al reflux [...] Andreia THOMAS EDOB:[birth year] (59 yo F)Acc No.[id number]:01/22/2025 Patient: Taylor JOSEPHINEIsabel Andreia Lozoya :1965 A ge:59 Y S ex:Female Address:[address] [place] [address], [phone] * Refills Refill clonazePAM Tablet, 2 MG, Oral, 270, 2-3, daily, 90 days, Refills=0 * true * Date: Generated for Konstantin choi/Jose D/Rufusitting on: 0 03/06/2025 12:15 PM EDT
--- OUTSIDE RECORDS SUMMARY | 2025-01-29 07:48 | XMS_ITS ---
Author Organization The [facility] in [place] Address [address] [place] [address] Care Team Providers Care Head Scorer Name Role Phone Salazar Downing Primary Care Provider REASON FOR VISIT Refill Clonazepam Medications Medication SIG (Take, Route, Fr equency, Duration) Notes Start Date End Date Status clonazePAM 2 MG 2-3 Oral daily for 90 days 025 Active Encounters Encounter Location Date Provider Diagnosis [address] [address] 01/29/2025 Salazar Downing GERD (gastroesophage al reflux disease) K21.9 Assessments Encounter Date Diagnosis (ICD Code) Assessment Notes Treatment Notes Treatment Clinical Notes Section Notes 01/29/2025 GERD (gastroesophage al reflux disease) (ICD-10 - K21.9) Plan Of Treatment Medication Medication Name Sig Start Date Stop Date Notes clonazePAM 2 MG 2-3 Oral daily for 90 days 01/29/2025 Progress Notes * Andreia THOMAS EDOB:[birth year] (59 yo F)Acc No.[id number]:01/29/2025 Patient: Taylor JOSEPHINEIsabel Andreia Lozoya :1965 A ge:59 Y S ex:Female Address:[address] [place] [address], [phone] * Refills Refill clonazePAM Tablet, 2 MG, Oral, 270, 2-3, daily, 90 days, Refills=0 * true * Date: Generated for Konstantin choi/Jose D/Rufusitting on: 0 03/06/2025 12:14 PM EDT
--- OUTSIDE RECORDS SUMMARY | 2025-02-05 12:00 | XMS_ITS ---
Author Organization [facility] in [place] Address [address] [place] [address] Care Team Providers Care Peer Educator Name Role Phone Salazar Downing Primary Care Provider Allergies Allergen (clinical drug ingredient) Drug/Non Drug Allergy documented on EMR Reaction Allergy Type Onset Date Status sulfamethoxazole / trimethoprim Bactrim flu like symptoms Drug Allergy Active simvastatin Zocor muscle aching Drug Allergy A ctive Substance with sulfonamide structure and antibacterial mechanism of action (substance) Sulfa Antibiotics diarrhea Drug Allergy Active REASON FOR VISIT patient is co dizziness patient has concerns about liver issues Medications Medication SIG (Take, Route, Frequency, Duration) Notes Start Date End Date Status Vitamin B12 1000 MCG 1 tablet Orally Onc e a day for 90 days Active Rosuvastatin Calcium 5 mg TAKE 1 TABLET DAILY Active Ondansetron 4 MG 1 tablet on the tongue and allow to dissolve Orally qid 11/06/2024 Not-Taking Meclizine HCl 25 MG 1 tablet as needed Orally Q 6 hours PRN 04/04/2024 Active Vitamin D3 1.25 MG (02361 UT) 1 capsule Orally weekly for 90 days 02/05/2025 Active Levothyroxine Sodium 150 MCG 1 tablet Orally in the morning on an empty stomach for 90 days Active DULoxetine HCl 20 MG 1 capsule Orally On ce a day for 30 days 07/03/2024 Active Cholecalciferol 1.25 MG (41373 UT) 1 capsule Orally once weekly for 90 days 12/15/2024 Active clonazePAM 2 MG 1 tablets Oral BID - TID for 90 days 02/05/2025 Active Liothyronine Sodium 5 MCG TAKE 2 TABLETS DAILY Active Ferrous Sulfate 325 (65 Fe) MG 1 tablet Orally twice a day for 90 days Active Folic Acid 1 MG 1 tablet Orally Once a day for 90 days 12/11/2024 Active Social History Tobacco Use: Social History Observation Description Date Details (start date - stop date) Former Smoker NA - NA Tobacco Control (Standard) Question Answer Notes Tobacco use: Former smoker AUDIT-C (Standard) Question Answer Notes Did you have a drink containing alcohol in the p ast year? No Points 0 Interpretation Negative Problems Problem Type SNOMED Code ICD Code Onset Dates Problem Status W/U Status Risk Notes Problem Fatty liver (271205053) Fatty liver (K76.0) Active confirmed Problem Anxiety state (018802958) Acute anxiety (F41.9) Active confirmed Vital Signs Weight 147.8 lbs 02/05/2025 Height 62 in 02/05/2025 Blood pressure systolic 138 mm Hg 02/06/20 25 Blood pressure diastolic 72 mm Hg 025 BMI 27.03 kg/m2 02/05/2025 Procedures Procedure Date Ordered Date Performed Result Body Sit e Holter Monitor - 3 days up to 14 days 02/05/2025 N/A Encounters Encounter Location Date Provider Diagnosis [facility] [address] [place] [address] 02/05/2025 Salazar Hoy Fatty liver K76.0 ; Palpitation R00.2 and Acute anxiety F41.9 Assessments Encounter Date Diagnosis (ICD Code) Assessment Notes Treatment Notes Treatment Clinical Notes Section Notes 02/05/2025 Fatty liver (ICD-10 - K76.0) 02/05/2025 Palpitation (ICD-10 - R00.2) 02/05/2025 Acute anxiety (ICD-10 - F41.9) Plan Of Treatment Medication Medication Name Sig Start Date Stop Date Notes Vitamin D3 1.25 MG (96408 UT) 1 capsule Orally weekly for 90 days 02/05/2025 clonazePAM 2 MG 1 tablets Oral BID - TID for 90 days 02/05/2025 Ferrous Sulfate 325 (65 Fe) MG 1 tablet Orally twice a day for 90 days Folic Acid 1 MG 1 tablet Orally Once a day for 90 days 12/11/2024 Pending Test Test Name Order Date Holter Monitor - 3 days up to 14 days Progress Notes * Andreia THOMAS EDOB:[birth year] (59 yo F)Acc No.[id number]:02/05/2025 Progress Note Patient: Andreia OLIVIER Provider: Miguel Angel Downing ([facility])MD :1965 A ge:59 Y S ex:Female Date:02/05/2025 Address:[address] , [place] , [id number] Check In:03:44 PM ESTCheck O ut:04:47 PM EST Subjective: * Chief Complaints: * P atient is co dizziness patient has concerns about liver issues * HPI: G eneral: DM _discussed suba\gare - starteidn semaglutide. * ROS: E ENT: hearing changes d enies. v isual changes d enies.?non-healing mouth sores d enies. s wollen glands or neck lumps d enies. h oarseness d enies. s ore throat d enies. d ifficulty swallowing d enies. n ose bleeds d enies. n charly congestion d enies. e ar ache d enies. e ar discharge?denies. r inging in ears d enies. l ight sensitivity d enies. e ye pain d enies. b lurring d enies. e ye irritation d enies. d ouble vision d enies.?vision loss d enies. G eneral/Constitutional: Sweats: D enies. F atigue d enies. S leep problems d enies. A norexia d enies. M alaise d enies. W eight loss d enies.?Fatigue or Weakness d enies. F ever or Chills d enies. C ardiovascular: Shortness of Breath w/lying flat d enies. L ightheadedness/dizziness d enies. C hest tightness/ heavy pressure d enies. S welling of legs, ankles, or feet d enies. W aking up with shortness of breath d enies. C hest pain denies. P alpitations d enies. W eight gain d enies. R espiratory: Chronic or frequent cough d enies. C oughing up blood?denies. D ifficulty breathing d enies. P roductive cough d enies. S noring?denies. S hortness of breath that awakens from sleep (PND) d enies. C hest pain d enies. S putum production d enies. W heezing d enies. M usculoskeletal: Joint pain d enies. J oint Fluid d enies. B ack pain d enies. K nee pain d enies. N jovita pain d enies. J oint Stiffness d enies. M uscle cramps d enies. W eakness of muscles d enies. A rthritis d enies. M uscle aches d enies. P ain in shoulder(s) d enies. S wollen joints d enies. * Active Problem List R00.2 Palpitations Modified On:12/04/2022 Status:confirmed K21.9 GERD (gastroesophage al reflux disease) Modified On:07/19/2023 Status:confirmed E03.9 Hypothyroid Modified On:07/19/2023 Status:confirmed G47.30 Sleep apnea Modified On:12/04/2022 Status:confirmed R74.8 Elevated liver enzym es Modified On:12/04/2022 Status:confirmed E55.9 Vitamin D deficiency Modified On:12/04/2022 Status:confirmed M25.50 Arthralgia Modified On:12/04/2022 Status:confirmed J30.9 Allergic rhinitis Modified On:12/04/2022 Status:confirmed M50.90 Cervical disc diseas e Modified On:12/04/2022 Status:confirmed M51.36 DDD (degenerative di sc disease), lumbar Modified On:12/04/2022 Status:confirmed K57.30 Diverticula of colon Modified On:12/04/2022U Status:confirmed N39.3 Stress incontinence Modified On:12/04/2022U Status:confirmed F40.00 Agoraphobia Modified On:12/04/2022 Status:confirmed E78.00 Hypercholesteremia Modified On:06/09/2023 Status:confirmed E11.9 Controlled type 2 di abetes mellitus Modified On:08/10/2023 Status:confirmed E01.0 Thyromegaly Modified On:12/04/2022 Status:confirmed R91.1 Solitary pulmonary n odule Modified On:12/16/2022 Status:confirmed H65.92 Unspecified nonsuppu rative otitis media, left ear Modified On:06/09/2023 Status:confirmed N39.0 Acute UTI Modified On:08/10/2023 Status:confirmed K14.8 Other diseases of to ngue Modified On:08/26/2023 Status:confirmed E11.40 Diabetic neuropathy Modified On:11/11/2023 Status:confirmed L03.90 Cellulitis Modified On:12/28/2023 Status:confirmed R42 Vertigo Modified On:04/04/2024 Status:confirmed R09.81 Nasal congestion Modified On:04/04/2024 Status:confirmed J01.90 Acute non-recurrent sinusitis, unspecified location Modified On:04/04/2024 Status:confirmed F17.210 Cigarette nicotine d ependence without complication Modified On:05/01/2024 Status:confirmed D58.2 Abnormal hemoglobin Modified On:09/08/2024 Status:confirmed D70.9 Neutropenia Modified On:11/09/2024 Status:confirmed D69.6 Thrombocytopenia Modified On:11/09/2024 Status:confirmed D64.9 Severe anemia Modified On:11/09/2024 Status:confirmed D61.818 Pancytopenia Modified On:11/17/2024 Status:confirmed D68.9 Coagulopathy Modified On:11/23/2024 Status:confirmed K74.60 Cirrhosis Modified On:11/23/2024 Status:confirmed J96.11 Chronic respiratory failure with hypoxia Modified On:12/13/2024U Status:confirmed E53.8 Vitamin B12 deficien cy Modified On:08/01/2025W/U Status:confirmed K76.0 Fatty liver Modified On:02/05/2025W/U Status:confirmed F41.9 Acute anxiety Modified On:02/05/2025/U Status:confirmed * Medical History: * Surgical History: O RIF Tarsal Metatarsal Total Hysterectomy Tonsills Right Wrist Left Foot Right Knee Appendix EGD 10/16/24 * Hospitalization/Major Diagno stic Procedure: N o Hospitalization History. * Family History: F ather: alive, prostate cancer, diagnosed with Other malignant neoplasm of unspecified site.?Mother: alive, diagnosed with Diabetes mellitus without mention of complication, type II or unspecified type, not stated as uncontrolled, Unspecified essential hypertension. B rother(s): , Brain Cancer, diagnosed with Other malignant neoplasm of unspecified site. * Social History: T obacco Use: T obacco Control (Standard) T obacco use: F ormer smoker D rug/Alcohol: A NINA-C (Standard) D id you have a drink containing alcohol in the past year? N o P oints 0 I nterpretation N egative * Medications: T akingCholecalciferol 1.25 MG (30912 UT) Capsule 1 capsule Orally once weekly clonazePAM 2 MG Tablet 2-3 Oral daily DULoxetine HCl 20 MG Capsule Delayed Release Particles 1 capsule Orally Once a day Ferrous Sulfate 325 (65 Fe) MG Tablet 1 tablet Orally twice a day Folic Acid 1 MG Tablet 1 tablet Orally Once a day Levothyroxine Sodium 150 MCG Capsule 1 tablet Orally in the morning on an empty stomach Liothyronine Sodium 5 MCG Tablet TAKE 2 TABLETS DAILY Meclizine HCl 25 MG Tablet 1 tablet as needed Orally Q 6 hours , Notes to Pharmacist: PRNRosuvastatin Calcium 5 mg Tablet TAKE 1 TABLET DAILY Vitamin B12 1000 MCG Tablet 1 tablet Orally Once a day Taking Cholecalciferol 1.25 MG (88390 UT) Capsule 1 capsule Orally once weekly Taking clonazePAM 2 MG Tablet 2-3 Oral daily Taking DULoxetine HCl 20 MG Capsule Delayed Release Particles 1 capsule Orally Once a day Taking Ferrous Sulfate 325 (65 Fe) MG Tablet 1 tablet Orally twice a day Taking Folic Acid 1 MG Tablet 1 tablet Orally Once a day Taking Levothyroxine Sodium 150 MCG Capsule 1 tablet Orally in the morning on an empty stomach Taking Liothyronine Sodium 5 MCG Tablet TAKE 2 TABLETS DAILY Taking Meclizine HCl 25 MG Tablet 1 tablet as needed Orally Q 6 hours , Notes to Pharmacist: PRNTaking Rosuvastatin Calcium 5 mg Tablet TAKE 1 TABLET DAILY Taking Vitamin B12 1000 MCG Tablet 1 tablet Orally Once a day Not-Taking/PRNOndansetron 4 MG Tablet Disintegrating 1 tablet on the tongue and allow to dissolve Orally qid Medication List reviewed and reconciled with the patientNot-Taking/PRN Ondansetron 4 MG Tablet Disintegrating 1 tablet on the tongue and allow to dissolve Orally qid Medication List reviewed and reconciled with the patient * Allergies: S ulfa Antibiotics: diarrhea - Side EffectsZocor: muscle achingBactrim: flu like symptomsno[Allergies Verified] Objective: * Vitals: W t:147.8lbs, Ht: 62 in, BP:138/72mm Hg, BMI:27.03Index, Ht-cm: 157.48 cm, Wt-k.04 kg. * Examination: P hysical Exam: GENERAL: w ell developed, well nourished, in no acute distress. HEAD: n ormocephalic/atraumatic. EYES: p upils equal, round and reactive to light, conjunctivae and sclerae normal. EARS: n o deformity or lesion of external ear, canals and TM appear normal bilaterally, TM's intact, not inflamed with normal light reflex, hearing grossly normal to conversational speech. NOSE: n o deformity, discharge, inflammation, or lesions.? MOUTH: m ucous membranes moist, normal oropharynx and posterior pharynx without lesions or exudates, tongue normal, dentition normal. NECK: n jovita supple, no masses or palpable cervical nodes, trachea midline, thyroid without nodules, masses, tenderness, or enlargement. CHEST: n o chest wall deformity, no chest wall tenderness.? LUNGS: n ormal respiratory effort and clear to auscultation, no wheezes, rales, or rhonchi, good air exchange. CARDIO: r egular rate and rhythm, normal S1 and S2, nor murmur, rub, or gallop. PULSES: n ormal capillary refill. ABDOMEN: s oft, non-distended, non-tender, no masses. MUSCULOSKELETAL: n o deformity or scoliosis noted, normal range of motion, joints normal, no erythema, edema, effusion, or ecchymosis. EXTREMITY: n o clubbing, cyanosis, edema, or deformity with normal ROM in both upper and lower bilateral extremities. NEUROLOGIC: g rossly normal. SKIN: n o rashes, ulcerations, or suspicious lesions. LYMPH NODES: n o cervical adenopathy, nodes normal. MENTAL STATUS: a lert and oriented x3, normal mood and affect. Assessment: * Assessment: 1. F atty liver - K76.0 (Primary) 2 . P alpitation - R00.2 3 . A cute anxiety - F41.9 Plan: * Treatment: 2. P alpitation P rocedure: Holter Monitor - 3 days up to 14 days 3.?Acute anxiety? Refill clonazePAM Tablet, 2 MG, 1 tablets, Oral, BID - TID, 90 days, 270, Refills 0.?? * Procedure Codes: * Preventive Medicine: Screenings/Counseling: B MS ACTION PLAN Above Normal BMI Follow-up D ietary management education, guidance, and counseling * * Sign off status: Completed Visit Status: C HK (Check Out) true * Provider: Miguel Angel Downing ([facility])MD Date: 0 02/05/2025 Generated for Printi ng/Jose D/eTransmitting on: 0 03/06/2025 12:15 PM EDT History and Physical Notes * HPI (History of Present Illness) Category Sub-Category Detail Notes Category Not es General DM _discussed s uba\gare - starteidn semaglutide Examination Category Sub-Category Detail Notes Category Not es Physical Exam GENERAL: well developed, well nourished, in no acute distress HEAD: normocephalic/atraum atic EYES: pupils equal, round and reactive to light, conjunctivae and sclerae normal EARS: no deformity or lesi on of external ear, canals and TM appear normal bilaterally, TM's intact, not inflamed with normal light reflex, hearing grossly normal to conversational speech NOSE: no deformity, discha rge, inflammation, or lesions MOUTH: mucous membranes fatmata st, normal oropharynx and posterior pharynx without lesions or exudates, tongue normal, dentition normal NECK: neck supple, no mass es or palpable cervical nodes, trachea midline, thyroid without nodules, masses, tenderness, or enlargement CHEST: no chest wall deform ity, no chest wall tenderness LUNGS: normal respiratory e ffort and clear to auscultation, no wheezes, rales, or rhonchi, good air exchange CARDIO: regular rate and rhy thm, normal S1 and S2, nor murmur, rub, or gallop PULSES: normal capillary ref ill ABDOMEN: soft, non-distended, non-tender, no masses RECTAL: MUSCULOSKELETAL: no deformity or scol iosis noted, normal range of motion, joints normal, no erythema, edema, effusion, or ecchymosis EXTREMITY: no clubbing, cyanosi s, edema, or deformity with normal ROM in both upper and lower bilateral extremities NEUROLOGIC: grossly normal SKIN: no rashes, ulceratio ns, or suspicious lesions LYMPH NODES: no cervical adenopat hy, nodes normal MENTAL STATUS: alert and oriented x 3, normal mood and affect
--- OUTSIDE RECORDS SUMMARY | 2025-02-05 12:33 | XMS_ITS ---
Author Organization The [facility] in [place] Address [address] [place] [address] Care Team Providers Care Boiler Attendant Name Role Phone Salazar Downing Primary Care Provider REASON FOR VISIT looking for [facility] records Encounters Encounter Location Date Provider Diagnosis [address] [address] 02/05/2025 Salazar Downing Plan Of Treatment No Information Progress Notes * Andreia THOMAS EDOB:[birth year] (59 yo F)Acc No.[id number]:02/05/2025 Patient: Taylor GONZALEZ Andreia Lozoya :1965 A ge:59 Y S ex:Female Address:[address] [place], [address] * true * Date: Generated for Shashii steph/Fadomingog/eTransmitting on: 0 03/06/2025 12:14 PM EDT
--- OUTSIDE RECORDS SUMMARY | 2025-02-27 10:54 | XMS_ITS ---
Author Organization The [facility] in [place] Address [address] [place] [address] Care Team Providers Care Keyboard Instrument Tuner Name Role Phone Salazar Downing Primary Care Provider [phone] REASON FOR VISIT Crestor refill Medications Medication SIG (Take, Route, Frequency, Duration) Notes Start Date End Date Status Rosuvastatin Calcium 5 mg TAKE 1 TABLET DAILY Active Encounters Encounter Location Date Provider Diagnosis [facility] [address] [place] [address] 02/27/2025 Salazar Downing Plan Of Treatment Medication Medication Name Sig Start Date Stop Date Notes Rosuvastatin Calcium 5 mg TAKE 1 TABLET DAILY Progress Notes * Andreia THOMAS EDOB:[birth year] (59 yo F)Acc No.[id number]:02/27/2025 Patient: Taylor Andreia GONZALEZ :1965 A ge:59 Y S ex:Female Address:[address] [facility], [place], [address] * Refills Refill Rosuvastatin Calcium Tablet, 5 mg, 90 Tablet, TAKE 1 TABLET DAILY, Refills=3 * true * Date: Generated for Konstantin choi/Jose D/eTransmitting on: 0 03/06/2025 12:15 PM EDT
--- OUTSIDE RECORDS SUMMARY | 2025-03-06 12:15 | XMS_ITS | Encounter Summary ---
Author Organization [facility] Address [address] [place] [address] Care Team Providers Care Patient Support Representative Name Role Phone Henrik Downing MD Primary Care Provider [phone] Юлия Guerra MD Unavailable [phone] Encounter Details Date Type Department Care Team (Late st Contact Info) Description 02/23/2025 Results Follow-Up [facility] [address] [place] [address] Юлия Guerra MD [address] [place] [address] Comprehensive metabolic panel, Vitamin B12, CBC auto differential Social History Tobacco Use Types Packs/Day Years Used Date Smoking Tobacco: Former Cigarettes 1 48.3 S tarted: 06/28/1976 Smokeless Tobacco: Never Alcohol Use Standard Drinks/Week Comments Never 0 (1 standard drink = 0.6 oz pur e alcohol) [facility] Utilities Answer Date Recorded In the past 12 months has [employer], gas, oil, or water [employer] threatened to shut off services in your [...] any time in the past 12 m [facility], were you homeless or living in a detention (including now)? No 11/09/2024 Hunger Vital Sign [...] 07/24/2025 11:00 AM EST [facility] [address] [place] [place] [address] Юлия Guerra MD [address] [place] [address] documented as of this encounter Visit Diagnoses Not on filedocumented in this encounter Care Teams Patient Support Representative Relationship Specialty Start Date End Date Henrik Downing MD [address] [facility] [address] [address] PCP - General Family Medicine 11/10/24 Юлия Guerra MD [address] [place] [address] Consulting Physician Hematology and Oncology 11/23/24 documented as of this encounter
--- OUTSIDE RECORDS SUMMARY | 2025-03-06 12:15 | XMS_ITS | Encounter Summary ---
Author Organization [facility] Address [address] [place] [address] Care Team Providers Care Wheat Grower Name Role Phone Юлия Guerra MD Unavailable [phone] Henrik Downing MD Primary Care Provider [phone] Source Comments In the event this information is protected by the Federal Confidentiality of Alcohol and Drug AbusePatient Records regulations: The Federal rules restrict any use of the information to criminally investigate or prosecute any alcohol or drug abuse patient.[facility] Encounter Details Date Type Department Care Team ([facility] Contact Info) Description 01/26/2025 Lab Requisition [facility] [place] [address] [place] [address] [place] [phone] Person encountering health services to consult on [...] 2:00 PM EST Visit (SP) Office Hematology/Oncology [address] [place] [address] [place] [address] [place] [address] FOLLOW UP documented as of this encounter Procedures Procedure Name Priority Date/Time Associated Diagnosis Comments OUTSIDE BONE MARROW SLIDE REVIEW Routine 01/26/2025 11:03 AM EDT Person encountering health services to consult on behalf of another person documented in this encounter Results * OUTSIDE BONE MARROW SLIDE REVIEW (01/26/2025 11:03 AM EDT) Case Report Bone Marrow Patholog y Report Case: [id number] Authorizing Provider: Loc Toribio MD, Collected: 01/26/2025 11:03 AM PhD Ordering Location: [facility] Received: 01/26/2025 11:02 AM [facility] Pathologist: Luis Enrique Andrea MD Specimen: Slide(s), 13 SLIDES [id number] / [id number] 02/08/2025 10:15 AM EDT [facility] FINAL DIAGNOSIS A. [facility], [place], [place] [address]. [id number], 11/10/2024: Bone marrow, aspirate, core biopsy, and clot section: - Hypercellular bone marrow with prominent eythroid hyperplasia and occasional atypical erythroid precursors - Adequate megakaryocytes with unremarkable morphology - Increased iron stores without ring sideroblasts - See comment Peripheral blood, smear: - Pancytopenia with macrocytic anemia and thrombocytopenia - Neutropenia 02/08/2025 10:15 AM EDT [facility] at 1015 EDT Diagnosis Comment This 59-year-old female presented to an outside institution with pancytopenia and a history of vitamin B12 deficiency. The patient underwent a bone marrow study which was submitted to the [facility] for review. The bone marrow is [...] clinical findings is suggested. 02/08/2025 10:[address] [facility] Performing Lab Diagnostic interpretation performed at: [facility], [address] [place] [address]# [id number] [employer]: León Eubanks MD 02/08/2025 10:[address] [facility] Microscopic Description PERIPHERAL BLOOD: CBC (11/10/2024) [...] VAF of 3%. 02/08/2025 10:15 AM EDT [facility] Disclaimer Laboratory Developed Test (LDT) Disclaimer: Performance characteristics of immunohistochemical, immunofluorescent, and chromogenic in-situ hybridization tests have been determined by the performing laboratory within [facility]'s [facility] Pathology and Laboratory Medicine Department ([facility], [facility], [facility], [place], [facility], [facility], or [facility]) in a manner consistent with CLIA requirements. One or more of these tests may not have been cleared or approved by the FDA. [facility] is regulated under CLIA as qualified to perform high-complexity testing. These tests are used for clinical purposes. These should not be regarded as investigational or for research. Positive and negative controls stain appropriately. 02/08/2025 10:15 AM EDT [facility] Blocks or Slides MICROSCOPE SLIDE / Unknown 01/26/2025 11:03 AM EDT 01/26/2025 11:02 AM EDT us Loc Toribio MD, PhD SURGICAL PATHOLOGY Final Result [facility] [address] [facility] [address] [place] [address], documented in this encounter Visit Diagnoses Diagnosis Person encountering health services to consult on behalf of another person Other person consulting on behalf of another person documented in this encounter Care Teams Wheat Grower Relationship Specialty Start Date End Date Henrik Downing MD [address] [place] [address] PCP - General Family Medicine 01/24/25 Юлия Guerra MD [address] [place] [address] Referring Hematology/Oncology 01/24/25 documented as of this encounter
--- OUTSIDE RECORDS SUMMARY | 2025-03-06 12:15 | XMS_ITS | Clinical Summary ---
Author Organization [facility] Address [address] [place] [address] Care Team Providers Care In School Suspension Aide Name Role Phone Henrik Downing MD Primary [...] Description 01/11/2025 2:45 PM EDT Office Visit [facility] [address] [place] [address] Misty Peng MD Seborrheic keratosis (Primary Dx); Lentigines; Epidermal inclusion cyst; Capillary angioma 01/11/2025 Bamboo flowsheet [facility] D[facility]atology [address] [place] [address] Misty Peng MD 01/11/2025 Travel from Last [...] Dermatology [address] [place] [address] Misty Peng MD [address] [place] [address] Health Maintenance Due Date Last Done Comments CT Colonography 1963 Colonoscopy 1963 Colorectal Cancer Screening 1963 FIT-DNA 1963 FIT 1963 FOBT 1963 Sigmoidoscopy 1963 Pap Smear 1984 Cervical Cancer Screening 1993 HPV/Cotest 1993 Mammogram 2003 Influenza Vaccine (#1) 2025 , 05/16/2018, 05/04/2018, Additional history exists Insurance [employer] Care Teams In School Suspension Aide Relationship Specialty Start Date End Date Henrik Downing MD [address] [place] [address] PCP - General Family Medicine 05/03/23
--- OUTSIDE RECORDS SUMMARY | 2025-03-06 12:15 | XMS_ITS | Encounter Summary ---
Author Organization [facility] Address [address] [place] [address] Care Team Providers Care Shipping Assistant Name Role Phone Юлия Guerra MD Unavailable [phone] Henrik Downing MD Primary Care Provider [phone] Source Comments In the event this information is protected by the Federal Confidentiality of Alcohol and Drug AbusePatient Records regulations: The Federal rules restrict any use of the information to criminally investigate or prosecute any alcohol or drug abuse patient.[facility] Encounter Details Date Type Department Care Team (Late st Contact Info) Description 03/06/2025 Orders Only Hematology/Oncology [address] [place] [address] [place] [address] [place] [address] Clonal hematopoiesis of indeterminate potential (Primary Dx) Social History Tobacco Use Types Packs/Day Years Used Date Smoking Tobacco: Former Cigarettes Area Deprivation Index Answer Date Zi rded National Score (1-100), lower number is lower ri sk 83 01/31/2025 State Score (1-10), lower number is lower risk 7 01/31/2025 Data from: https://www.[facility]/. Last address used for calculation [address] 01/31/2025 Comments Unknown Sex and Gender Information Value Date Recorded Sex Assigned at Not on file Legal Sex Female 7:19 AM EDT Gender Identity Not on file Sexual Orientation Not on file documented as of this encounter Plan of Treatment Upcoming Encounters Date Type Department Care Team (Late st Contact Info) Description 05/02/2025 2:00 PM EST Visit (SP) Office Hematology/Oncology [address] [place] [address] [place] [address] [place] [address] FOLLOW UP Scheduled Orders Name Type Priority Associated Diagnoses Orde r Schedule COMPLETE BLOOD COUNT AND DIFFERENTIAL Lab Routine Clonal hematopoiesis of indeterminate potential Expected: 03/06/2025, Expires: 06/05/2025 COMPREHENSIVE METABOLIC PANEL Lab Routine Clonal hematopoiesis of indeterminate potential Expected: 03/06/2025, Expires: 06/05/2025 LACTATE DEHYDROGENASE Lab Routine Clonal hematopoiesis of indeterminate potential Expected: 03/06/2025, Expires: 06/05/2025 documented as of this encounter Visit Diagnoses Diagnosis Clonal hematopoiesis of indeterminate potential- Primary documented in this encounter Care Teams Shipping Assistant Relationship Specialty Start Date End Date Henrik Downing MD [address] [place] [address] PCP - General Family Medicine 01/24/25 Юлия Guerra MD [address] [place] [address] Referring Hematology/Oncology 01/24/25 documented as of this encounter
--- OUTSIDE RECORDS SUMMARY | 2025-03-06 12:15 | XMS_ITS | Encounter Summary ---
Author Organization [facility] Address [address] [place] [id number] Care Team Providers Care School Photograph Editor Name Role Phone Юлия Guerra MD Unavailable [phone] Henrik Downing MD Primary Care Provider [phone] Source Comments In the event this information is protected by the Federal Confidentiality of Alcohol and Drug AbusePatient Records regulations: The Federal rules restrict any use of the information to criminally investigate or prosecute any alcohol or drug abuse patient.[facility] Reason for Visit * Reason Comments Patient Question Encounter Details Date Type Department Care Team (Late st Contact Info) Description 03/05/2025 Telephone Hematology/Oncology [address] [place] [address] [place] [address] [place] [address] Patient Question Social History Tobacco Use Types Packs/Day Years Used Date Smoking Tobacco: Former Cigarettes Area Deprivation Index Answer Date Zi rded National Score (1-100), lower number is lower ri sk 83 01/31/2025 State Score (1-10), lower number is lower risk 7 01/31/2025 Data from: https://www.[facility]/. Last address used for calculation [address] 01/31/2025 Comments Unknown Sex and Gender Information Value Date Recorded Sex Assigned at Not on file Legal Sex Female 7:19 AM EDT Gender Identity Not on file Sexual Orientation Not on file documented as of this encounter Miscellaneous Notes * Telephone Encounter - Jaclyn Frey - 03/05/2025 9:43 AM EDT Ms. Cid called asking for lab orders to be faxed to [facility]; she wants to go for labstomorrow. The fax number is [phone]. Selena documented in this encounter Plan of Treatment Upcoming Encounters Date Type Department Care Team (Late st Contact Info) Description 05/02/2025 2:00 PM EST Visit (SP) Office Hematology/Oncology [address] [place] [address] [place] [address] [place] [address] FOLLOW UP documented as of this encounter Visit Diagnoses Not on filedocumented in this encounter Care Teams School Photograph Editor Relationship Specialty Start Date End Date Henrik Downing MD [address] [place] [address] PCP - General Family Medicine 01/24/25 Юлия Guerra MD [address] [place] [address] Referring Hematology/Oncology 01/24/25 documented as of this encounter
--- OUTSIDE RECORDS SUMMARY | 2025-03-06 12:15 | XMS_ITS | Patient Health Record ---
Author Organization The [facility] in [place] Address [address] [place] [address] Care Team Providers Care Director Digital Sales Name Role Phone Salazar Downing Primary Care Provider [phone] Allergies Allergen (clinical drug ingredient) Drug/Non Drug Allergy documented on EMR Reaction Allergy Type Onset Date Status sulfamethoxazole / trimethoprim Bactrim flu like symptoms Drug Allergy Active simvastatin Zocor muscle aching Drug Allergy A ctive Substance with sulfonamide structure and antibacterial mechanism of action (substance) Sulfa Antibiotics diarrhea Drug Allergy Active Results Component Value Reference Range Notes CBC AUTO DIFF Reviewed date:09/07/2024 07:57:57 PM Interpretation: Performing Lab: Notes/Report: [facility] , White Blood Count 4.3 [...] Performing Lab: see note ML - [facility] FREE T3 Reviewed date:09/07/2024 07:57:57 PM Interpretation: Performing Lab: Notes/Report: [facility] , Free T3 1.62 2.18-3.98 pg/mL Performing Lab: see note ML - [facility] LB LIPID PROFILE Reviewed date:09/07/2024 07:57:57 PM Interpretation: Performing Lab: Notes/Report: [facility] , Triglycerides 154 <=150 mg/dL [...] RISK Performing Lab: see note ML - [facility] LB PROF 14(COMP METB) Reviewed date:09/07/2024 07:57:57 PM Interpretation: Performing Lab: Notes/Report: [facility] , Sodium 146 136-145 mmol/L [...] 1.4 Performing Lab: see note ML - [facility] LB T4 Reviewed date:09/07/2024 07:57:57 PM Interpretation: Performing Lab: Notes/Report: [facility] , T4 Thyroxine 5.10 4.80-13.90 ug/dL Performing Lab: see note ML - [facility] TSH Reviewed date:09/07/2024 07:57:57 PM Interpretation: Performing Lab: Notes/Report: [facility] , Thyroid Stimulating Hormone 17.412 0.358-3.740 uIU/mL Performing Lab: see note ML - [facility] VITAMIN D 25 [place] Reviewed date:09/07/2024 07:57:57 PM Interpretation: Performing Lab: Notes/Report: [facility] , Vitamin D 13.2 <20 ng/mL Vit D deficient 20-<30 ng/mL Vit D insufficient 30-100 ng/mL Vit D sufficient >100 ng/mL Potential Toxicity Performing Lab: see note ML - [facility] LB LAB TESTING Reviewed date:10/11/2024 08:14:00 PM Interpretation: Performing Lab: Notes/Report: [id number] Mitochondrial (M2) Antibody [facility] , Miscellaneous Test COMMENT . Test Ordered: [id number] Mitochondrial (M2) Antibody Mitochondrial (M2) Antibody <20.0 Units CB Reference Range: 0.0-20.0 Negative 0.0 - 20.0 Equivocal 20.1 - 24.9 Positive >24.9 Mitochondrial (M2) Antibodies are found in 90-96% of patients with primary biliary cirrhosis. Performed at: - [facility] [address] [id number] Typesetting Machine Tender: Brayan Pena PhD, Phone: [phone] Performing Lab: see note - [facility] LB FIBRINOGEN Reviewed date:11/07/2024 03:13:58 PM Interpretation: Performing Lab: Notes/Report: [facility] , Fibrinogen 275 200-400 mg/dL Performing Lab: see note - [facility] LIVER PROFILE Reviewed date:11/07/2024 03:13:58 PM Interpretation: Performing Lab: Notes/Report: [facility] , Bilirubin Total 1.7 0.2-1.0 mg/dL Bilirubin Direct 0.4 0.0-0.2 mg/dL Aspartate Amino Transferase 122 15-37 U/L Alanine Aminotransferase 30 14-59 U/L Alkaline Phosphatase 98 46-116 U/L Total Protein 5.7 6.4-8.2 g/dL Albumin Level 3.3 3.4-5.0 g/dL Globulin 2.4 Albumin Globulin Ratio 1.4 Performing Lab: see note - [facility] PROF CHEM 8 (BAS METB) Reviewed date:11/07/2024 03:13:58 PM Interpretation: Performing Lab: Notes/Report: [facility] , Sodium 144 136-145 mmol/L Potassium 2.7 [...] 8.3 8.5-10.1 mg/dL Performing Lab: see note - [facility] Prothrombin Time INR Reviewed date:11/07/2024 03:13:58 PM Interpretation: Performing Lab: Notes/Report: [facility] , Prothrombin Time 13.7 9.0-11.6 sec INR 1.33 DESIRED INR: 2.0-3.0 CONDITIONS NOT LISTED BELOW 2.5-3.5 FOR PROSTHETIC HEART VALVE REPLACEMENT 2.5-3.5 RECURRENT THROMBOSIS Performing Lab: see note ML - [facility] LB Second ABO/RH Type Reviewed date:11/07/2024 03:13:58 PM Interpretation: Performing Lab: Notes/Report: [facility] , Blood Type #2 O Positive Packed Red Blood Cells Reviewed date:11/08/2024 07:38:21 PM Interpretation: Performing Lab: Notes/Report: Packed Red Blood Cells [id number] OP RC TRANSFUSED 11/08/24 0241 [id number] OP RC TRANSFUSED 11/08/24 0617 Type and Screen Reviewed date:11/08/2024 07:38:21 PM Interpretation: Performing Lab: Notes/Report: [facility] , Blood Type O Positive Antibody Screen POSITIVE Troponin I High Sensitivity Reviewed date:11/07/2024 03:13:58 PM Interpretation: Performing Lab: Notes/Report: [facility] , Troponin I High Sensitivity 4.2 4.0-51.3 pg/mL CUT-OFF POINTS HAVE BEEN ESTABLISHED BASED ON THE FOURTH UNIVERSAL DEFINITION OF MYOCARDIAL INFARCTION. THE UPPER REFERENCE LIMIT (URL) OF TROPONIN, DEFINED THE 99TH PERCENTILE OF cTnI DISTRIBUTION IN A REFERENCE POPULATION, HAS BEEN CONFIRMED THE DECISION THRESHOLD FOR ND DIAGNOSIS. 99TH PERCENTILE = 51.4 PG/ML NOTE: HIGH-SENSITIVITY TROPONIN ASSAY IS NOT INTENDED TO BE USED IN ISOLATION BUT SHOULD BE INTERPRETED IN CONJUNCTION WITH OTHER DIAGNOSTIC AND CLINICAL INFORMATION. Performing Lab: see note ML - [facility] LB Venous Blood Gas Reviewed date:11/07/2024 03:13:58 PM Interpretation: Performing Lab: Notes/Report: [facility] , pH VBG 7.400 7.330-7.430 PCO2 VBG 41.9 40.0-52.0 mmHg Performing Lab: see note ML - [facility] LB Occult Blood* Reviewed date:11/07/2024 03:13:58 PM Interpretation: Performing Lab: Notes/Report: [facility] , Occult Blood Negative Performing Lab: see note ML - [facility] LB Vitamin B12 Reviewed date:11/08/2024 05:26:51 PM Interpretation: Performing Lab: Notes/Report: [facility] , Vitamin B12 270 911-6952 pg/mL Performed at: - [facility] [address] [id number] Typesetting Machine Tender: Brayan Pena PhD, Phone: [phone] Performing Lab: see note LC - [facility] LB ECG 12 lead Reviewed date:11/07/2024 06:10:41 PM Interpretation: Performing Lab: Notes/Report: Source Facility: [place] [address] Electrocardiograph Report Signed Patient: ANDREIA THOMAS MR#: [id number] : 1965 Acct:[id number] Age/Sex: 59 / F ADM Date: 11/07/24 Loc: [place] 218-[address]: Kaitlyn Downing M.D. Ordering Physician: Chance Ware M.D. Date of Service: 11/07/24 Procedure(s): ECG 12 lead Accession Number(s): [id number] cc: [facility] Test Date: 2024-11-07 Pat Name: ANDREIA THOMAS Department: Room: - Gender: Female Board Machine Set Up Operator: TIFFANIE: 1965 Requested By: 1030 Order Number: [id number] Reading MD: GONZALEZ BEVERLY M.D. Measurements Intervals [place] Rate: 80 P: 61 WI: 132 QRS: 16 QRSD: 86 T: 38 QT: 404 QTc: 440 Interpretive Statements 1100 Sinus rhythm 8102 Low QRS voltage in chest leads Abnormal ECG No previous ECG available for comparison Electronically Signed On 11-07-2024 17:53:39 EDT by GONZALEZ BEVERLY M.D. Dictated By: GONZALEZ BEVERLY Signed By: 11/07/24 1753 DD/ 0939 TD/TT: Supervisor Wet Room: [place] [address] Electrocardiograph Report Signed Patient: TY THOMAS MR#: [id number] : 1965 Acct:[id number] Age/Sex: 59 / F ADM Date: 11/07/24 Loc: [place] 218-[address]: Monica Downing M.D. Ordering Physician: Chance Ware M.D. Date of Service: 11/07/24 Procedure(s): ECG 12 lead Accession Number(s): [id number] cc: [facility] Test Date: 2024-11-07 Pat Name: ANDREIA TREVINO Department: 07 Room: - Gender: Female Board Machine Set Up Operator: : 1965 Requested By: 1030 Order Number: [id number] Reading MD: GONZALEZ BEVERLY M.D. Measurements Intervals [place] Rate: 80 P: 61 WI: 132 QRS: 16 QRSD: 86 T: 38 QT: 404 QTc: 440 Interpretive Statements 1100 Sinus rhythm 8102 Low QRS voltage in chest leads Abnormal ECG No previous ECG available for comparison Electronically Reena d On 11-07-2024 17:53:39 EDT by GONZALEZ BEVERLY M.D. Dictated By: GONZALEZ BEVERLY Signed By: 11/07/24 1753 DD/ 0939 TD/TT: Supervisor Wet Room: BILIRUBIN CONJUGATED (DIRECT ) Reviewed date:11/08/2024 05:26:51 PM Interpretation: Performing Lab: Notes/Report: [facility] , Bilirubin Direct 0.3 0.0-0.2 mg/dL Performing Lab: see note ML - [facility] LB CBC AUTO DIFF Reviewed date:11/08/2024 05:26:51 PM Interpretation: Performing Lab: Notes/Report: [facility] , White Blood Count 1.9 [...] 10 3/uL Performing Lab: see note - [facility] LB FERRITIN Reviewed date:11/08/2024 05:26:51 PM Interpretation: Performing Lab: Notes/Report: [facility] , Ferritin 300.0 8.0-252.0 ng/mL Performing Lab: see note - [facility] LB FOLATE Reviewed date:11/08/2024 05:26:51 PM Interpretation: Performing Lab: Notes/Report: [facility] , Folate 22.30 8.60-58.90 ng/mL Performing Lab: see note - [facility] IRON AND TIBC Reviewed date:11/08/2024 05:26:51 PM Interpretation: Performing Lab: Notes/Report: [facility] , Iron 95.0 50.0-170.0 ug/dL Total Iron Binding Capacity 219.0 250.0-450.0 ug/dL Percent Iron Saturation 43.4 Performing Lab: see note - [facility] LB Manual Differential Reviewed date:11/08/2024 05:26:51 PM Interpretation: Performing Lab: Notes/Report: [facility] , Segmented Neutrophils % Manual [...] Schistocytes 1+ Performing Lab: see note - [facility] LB Reticulocyte Pct Auto Reviewed date:11/08/2024 05:26:51 PM Interpretation: Performing Lab: Notes/Report: [facility] , Reticulocyte Pct Auto 1.31 0.60-3.10 % Performing Lab: see note ML - [facility] LB Bilirubin Total Reviewed date:11/08/2024 05:26:51 PM Interpretation: Performing Lab: Notes/Report: [facility] , Bilirubin Total 1.3 0.2-1.0 mg/dL Performing Lab: see note - [facility] LB CA echo doppler complete Reviewed date:11/08/2024 05:26:51 PM Interpretation: Performing Lab: Notes/Report: Source Facility: [place] [address] Cardiology Report Signed Patient: ANDREIA THOMAS MR#: [id number] : 1965 Acct:[id number] Age/Sex: 59 / F ADM Date: 11/07/24 Loc: [place] 218-[address]: Kaitlyn Downing M.D. Ordering Physician: Kaitlyn Downing M.D. Date of Service: 11/07/24 Procedure(s): CA echo doppler complete Accession Number(s): [id number] cc: Kaitlyn Downing M.D. Patient Name: ANDREIA THOMAS MR#: [id number] : 1965 Exam Date: 11/07/2024 Ordering Doctor: [...] Signed By: 11/08/24 1149 DD/ 1148 TD/TT: Supervisor Wet Room: [place] [address] Cardiology Report Signed Patient: TY THOMAS MR#: [id number] : 1965 Acct:[id number] Age/Sex: 59 / F ADM Date: 11/07/24 Loc: MS 218-[address]: Monica Downing M.D. Ordering Physician: Kaitlyn Downing M.D. Date of Service: 11/07/24 Procedure(s): CA ech o doppler complete Accession Number(s): [id number] cc: Kaitlyn Downing M.D. Patient Name: ANDREIA THOMAS MR#: [id number] : 1965 Exam Date: 11/07/2024 Ordering Doctor: [...] Signed By: 11/08/24 1149 DD/ 1148 TD/TT: Supervisor Wet Room: CBC AUTO DIFF Reviewed date:11/08/2024 05:26:51 PM Interpretation: Performing Lab: Notes/Report: [facility] , White Blood Count 2.0 [...] Performing Lab: see note ML - [facility] LB LAB TESTING Reviewed date:11/12/2024 10:59:29 PM Interpretation: Performing Lab: Notes/Report: [id number] ACTIVITY [facility] , Miscellaneous Test COMMENT . Test Ordered: [id number] GZQWXF55 Activity CHKRGE07 Activity 92.0 % Reference Range: >66.8 This test was developed and its performance characteristics determined by [facility]. It has not been cleared or approved by the Food and Drug Administration. Comment Comment Reference Range: . Severe deficiency of SJDXNZ62 (less than 10% activity) is a relatively specific finding in patients with a clinical diagnosis of either hereditary or acquired thrombotic thrombocytopenic purpura (TTP). Normal to moderately reduced TTXUFA73 activity results do not exclude a diagnosis of TTP. Conditions that could have UHDZSW42 activity greater than 10% include hemolytic uremic syndrome (HUS), atypical hemolytic uremic syndrome (aHUS), and other thrombotic microangiopathies associated with hematopoietic stem cell and solid organ transplantation, liver disease, DIC, sepsis, , or effects of certain medications (eg, clopidogrel, cyclosporine, mitomycin C, quinine). Performed at: [address] [id number] Typesetting Machine Tender: Ana Cristina Torres MD, Phone: [phone] Performed at: [address] [id number] Typesetting Machine Tender: Brayan Pena PhD, Phone: [phone] Performing Lab: see note - [facility] Comp panel: Leukemia/Lymphom a Reviewed date:11/12/2024 [...] blo od Assessment of Leukocytes Comment . [place] and lambda staining cannot be interpreted due [...] analysis with CD45/SSC gating Technical-Analysis performed at [address] [employer], [address], [place] [address], Director: Alon Altman, [facility], Phenotype Chart Comment . CD2 [...] developed and its performance characteristics determined by [facility]. It has not been cleared or approved by the U.S. Food and Drug Administration. The FDA has determined that such clearance or approval is not necessary. This test is used for clinical purposes. It should not be regarded as investigational or for research. Performed at: - - [facility] [place] [address], [place], [place] [id number] Typesetting Machine Tender: Alon Altman [facility], Phone: [phone] Performed at: TG - [facility] [place] [address] [place], [place] [id number] Typesetting Machine Tender: Navyajaelynosmany Altman [facility], Phone: [phone] Performing Lab: see note LC - [facility] LB AMMONIA Reviewed date:11/09/2024 09:02:01 PM Interpretation: Performing Lab: Notes/Report: [facility] , Ammonia 15 11-32 umol/L Performing Lab: see note ML - [facility] LB CBC AUTO DIFF Reviewed date:11/09/2024 09:02:01 PM Interpretation: Performing Lab: Notes/Report: [facility] , White Blood Count 3.2 [...] 0.00-0.03 10 3/uL Performing Lab: see note - [facility] LB PROF 14(COMP METB) Reviewed date:11/09/2024 09:02:01 PM Interpretation: Performing Lab: Notes/Report: [facility] , Sodium 147 136-145 mmol/L [...] 1.5 Performing Lab: see note ML - [facility] LB Prothrombin Time INR Reviewed date:11/09/2024 09:02:01 PM Interpretation: Performing Lab: Notes/Report: [facility] , Prothrombin Time 11.9 9.0-11.6 sec INR 1.14 DESIRED INR: 2.0-3.0 CONDITIONS NOT LISTED BELOW 2.5-3.5 FOR PROSTHETIC HEART VALVE REPLACEMENT 2.5-3.5 RECURRENT THROMBOSIS Performing Lab: see note - [facility] LB CBC AUTO DIFF Reviewed date:11/18/2024 12:00:18 PM Interpretation: Performing Lab: Notes/Report: [facility] , White Blood Count 6.1 4.0-11.0 10 [...] 9.7 9.5-13.5 fL Performing Lab: see note ML - [facility] LB PROF 14(COMP METB) Reviewed date:11/08/2024 05:26:51 PM Interpretation: Performing Lab: Notes/Report: [facility] , Sodium 141 136-145 mmol/L [...] 1.4 Performing Lab: see note ML - [facility] LB Prothrombin Time INR Reviewed date:11/08/2024 05:26:51 PM Interpretation: Performing Lab: Notes/Report: [facility] , Prothrombin Time 12.4 9.0-11.6 sec INR 1.19 DESIRED INR: 2.0-3.0 CONDITIONS NOT LISTED BELOW 2.5-3.5 FOR PROSTHETIC HEART VALVE REPLACEMENT 2.5-3.5 RECURRENT THROMBOSIS Performing Lab: see note ML [facility] LB PROF 14(COMP METB) Reviewed date:11/08/2024 05:26:51 PM Interpretation: Performing Lab: Notes/Report: [facility] , Sodium 143 136-145 mmol/L [...] 1.4 Performing Lab: see note ML - [facility] LB LIPASE Reviewed date:11/08/2024 05:26:51 PM Interpretation: Performing Lab: Notes/Report: [facility] , Lipase 55.0 16.0-77.0 U/L Performing Lab: see note ML - [facility] LB LACTATE or LACTIC ACID Reviewed date:11/08/2024 05:26:51 PM Interpretation: Performing Lab: Notes/Report: [facility] , Lactate/Lactic Acid 0.8 0.4-2.0 mmol/L Performing Lab: see note ML - [facility] LB CBC AUTO DIFF Reviewed date:11/08/2024 05:26:51 PM Interpretation: Performing Lab: Notes/Report: [facility] , White Blood Count 2.0 4.0-11.0 10 3/uL Red Blood Count 2.35 4.20-5.40 10 6/uL Hemoglobin 8.5 12.0-16.0 g/dL Hematocrit 24.4 36.0-48.0 % Mean Corpuscular Volume 103.8 81.0-99.0 fL Mean Corpuscular Hemoglobin 36.2 26.7-34.0 pg Mean Corpuscular HGB Conc 34.8 29.9-35.2 g/dL Platelet Count 34 150-450 10 3/uL Performing Lab: see note - [facility] LB AMYLASE Reviewed date:11/08/2024 05:26:51 PM Interpretation: Performing Lab: Notes/Report: [facility] , Amylase 37 25-115 U/L Performing Lab: see note [facility] LB AMMONIA Reviewed date:11/08/2024 05:26:51 PM Interpretation: Performing Lab: Notes/Report: [facility] , Ammonia 34 11-32 umol/L Performing Lab: see note [facility] LB Vitamin B12 Reviewed date:11/09/2024 09:02:01 PM Interpretation: Performing Lab: Notes/Report: [facility] , Vitamin B12 114 499-6966 pg/mL Performed at: [address] [id number] Typesetting Machine Tender: Brayan Pena PhD, Phone: [employer] Performing Lab: see note [facility] LB Haptoglobin Reviewed date:11/09/2024 09:02:01 PM Interpretation: Performing Lab: Notes/Report: [facility] , Haptoglobin <10 37-355 mg/dL Performed at: [address] [id number] Typesetting Machine Tender: Brayan Pena PhD, Phone: [phone] Performing Lab: see note [facility] LB Urine Culture - [facility] Reviewed date:11/09/2024 09:02:01 PM Interpretation: Performing Lab: Notes/Report: [facility] , Urine Culture - [facility] See Below For Report Urine Culture - [facility] Testing performed at [facility] O:ESCCOL Isolated Urine Culture - [facility] [place] Count Organism: 1.1 Antibiotic Interpretation ILIA Status Urine Culture - [facility] [address] [place] [address] Urine Culture - [facility] Testing performed at [facility] O:ESCCOL Isolated Urine Culture - [facility] [place] Count Organism: 1.1 Antibiotic Interpretation ILIA Status Urine Culture - [facility] See Below For Report Urine Culture - [facility] Testing performed at [facility] O:ESCCOL Isolated Urine Culture - [facility] [place] Count Organism: 1.1 Antibiotic Interpretation ILIA Status Urine Culture - [facility] See Below For Report Urine Culture - [facility] Testing performed at [facility] O:ESCCOL Isolated Urine Culture - [facility] [place] Count Organism: 1.1 Antibiotic Interpretation ILIA Status Urine Culture - [facility] >100,000 Urine Culture - [facility] Testing performed at [facility] O:ESCCOL Isolated Urine Culture - [facility] [place] Count Organism: 1.1 Antibiotic Interpretation ILIA Status Urine Culture - [facility] See Below For Report Urine Culture - [facility] Testing performed at [facility] O:ESCCOL Isolated Urine Culture - [facility] [place] Count Organism: 1.1 Antibiotic Interpretation ILIA Status Urine Culture - [facility] Amikacin S F Urine Culture - [facility] Testing performed at [facility] O:ESCCOL Isolated Urine Culture - [facility] [place] Count Organism: 1.1 Antibiotic Interpretation ILIA Status Urine Culture - [facility] Amoxicillin/Clavula gonsalo S F Urine Culture - [facility] Testing performed at [facility] O:ESCCOL Isolated Urine Culture - [facility] [place] Count Organism: 1.1 Antibiotic Interpretation ILIA Status Urine Culture - [facility] Ampicillin S F Urine Culture - [facility] Testing performed at [facility] O:ESCCOL Isolated Urine Culture - [facility] [place] Count Organism: 1.1 Antibiotic Interpretation ILIA Status Urine Culture - [facility] Aztreonam S F Urine Culture - [facility] Testing performed at [facility] O:ESCCOL Isolated Urine Culture - [facility] [place] Count Organism: 1.1 Antibiotic Interpretation ILIA Status Urine Culture - [facility] Ceftazidime S F Urine Culture - [facility] Testing performed at [facility] O:ESCCOL Isolated Urine Culture - [facility] [place] Count Organism: 1.1 Antibiotic Interpretation ILIA Status Urine Culture - [facility] Ceftazidime/Avibact am S F Urine Culture - [facility] Testing performed at [facility] O:ESCCOL Isolated Urine Culture - [facility] [place] Count Organism: 1.1 Antibiotic Interpretation ILIA Status Urine Culture - [facility] Ceftolozane/Tazobac cohn S F Urine Culture - [facility] Testing performed at [facility] O:ESCCOL Isolated Urine Culture - [facility] [place] Count Organism: 1.1 Antibiotic Interpretation ILIA Status Urine Culture - [facility] Ciprofloxacin S F Urine Culture - [facility] Testing performed at [facility] O:ESCCOL Isolated Urine Culture - [facility] [place] Count Organism: 1.1 Antibiotic Interpretation ILIA Status Urine Culture - [facility] Ertapenem S F Urine Culture - [facility] Testing performed at [facility] O:ESCCOL Isolated Urine Culture - [facility] [place] Count Organism: 1.1 Antibiotic Interpretation ILIA Status Urine Culture - [facility] Gentamicin S F Urine Culture - [facility] Testing performed at [facility] O:ESCCOL Isolated Urine Culture - [facility] [place] Count Organism: 1.1 Antibiotic Interpretation ILIA Status Urine Culture - [facility] Levofloxacin S F Urine Culture - [facility] Testing performed at [facility] O:ESCCOL Isolated Urine Culture - [facility] [place] Count Organism: 1.1 Antibiotic Interpretation ILIA Status Urine Culture - [facility] Meropenem S F Urine Culture - [facility] Testing performed at [facility] O:ESCCOL Isolated Urine Culture - [facility] [place] Count Organism: 1.1 Antibiotic Interpretation ILIA Status Urine Culture - [facility] Meropenem/Vaborbact am S F Urine Culture - [facility] Testing performed at [facility] O:ESCCOL Isolated Urine Culture - [facility] [place] Count Organism: 1.1 Antibiotic Interpretation ILIA Status Urine Culture - [facility] Nitrofurantoin S F Urine Culture - [facility] Testing performed at [facility] O:ESCCOL Isolated Urine Culture - [facility] [place] Count Organism: 1.1 Antibiotic Interpretation ILIA Status Urine Culture - [facility] Tetracycline S F Urine Culture - [facility] Testing performed at [facility] O:ESCCOL Isolated Urine Culture - [facility] [place] Count Organism: 1.1 Antibiotic Interpretation ILIA Status Urine [facility] Tigecycline S F [facility] Testing performed at [facility] O:ESCCOL Isolated Urine Culture - [facility] [place] Count Organism: 1.1 Antibiotic Interpretation ILIA Status Urine [facility] - [facility] Tobramycin S F U[facility] - [facility] Testing performed at [facility] O:ESCCOL Isolated Urine Culture - [facility] [place] Count Organism: 1.1 Antibiotic Interpretation ILIA Status Urine [facility] Ampicillin/Sulbactam S F Urine Culture - [facility] Testing performed at [facility] O:ESCCOL Isolated Urine Culture - [facility] [place] Count Organism: 1.1 Antibiotic Interpretation ILIA Status Urine [facility] Cefazolin S F Urine Culture - [facility] Testing performed at [facility] O:ESCCOL Isolated Urine Culture - [facility] [place] Count Organism: 1.1 Antibiotic Interpretation ILIA Status Urine [facility] Cefepime S F Urine [facility] - [facility] Testing performed at [facility] O:ESCCOL Isolated Urine Culture - [facility] [place] Count Organism: 1.1 Antibiotic Interpretation ILIA Status Urine Culture [facility] Ceftriaxone S F Urine Culture - [facility] Testing performed at [facility] O:ESCCOL Isolated Urine Culture - [facility] [place] Count Organism: 1.1 Antibiotic Interpretation ILIA Status Urine Culture [facility] Cefuroxime S F Urine Culture - [facility] Testing performed at [facility] O:ESCCOL Isolated Urine Culture - [facility] [place] Count Organism: 1.1 Antibiotic Interpretation ILIA Status Urine Culture [facility] Piperacillin/Tazoba ctam S F Urine Culture - [facility] Testing performed at [facility] O:ESCCOL Isolated Urine Culture - [facility] [place] Count Organism: 1.1 Antibiotic Interpretation ILIA Status Urine Culture [facility] Trimethoprim/Sulfa S F Urine Culture - [facility] Testing performed at [facility] O:ESCCOL Isolated Urine Culture - [facility] [place] Count Organism: 1.1 Antibiotic Interpretation ILIA Status Performing Lab: see note - [facility] LB SEE REPORT - Global Engineering Manager Id information not found for OBX-specific promotions executive producer legend Manual Differential Reviewed date:11/07/2024 03:13:58 PM Interpretation: Performing Lab: Notes/Report: [facility] , Segmented Neutrophils % Manual 56.0 [...] Macrocytosis 2+ Performing Lab: see note - [facility] LB Blood Culture 2 Reviewed date:11/12/2024 10:59:29 PM Interpretation: Performing Lab: Notes/Report: [facility] , Blood Culture 2 See Below For Report Blood Culture 2 NG5D NO GROWTH AT 5 DAYS.^NO GROWTH AT 5 DAYS. Performing Lab: see note - [facility] LB Blood Culture 1 Reviewed date:11/12/2024 10:59:29 PM Interpretation: Performing Lab: Notes/Report: PEDS [facility] , Blood Culture 1 See Below For Report Blood Culture 1 NG5D NO GROWTH AT 5 DAYS.^NO GROWTH AT 5 DAYS. Performing Lab: see note [facility] [place] UA RANDOM W or MICROSCOPIC Reviewed date:11/07/2024 03:13:58 PM Interpretation: Performing Lab: Notes/Report: [facility] , Color Urine YELLOW YELLOW Clarity Urine CLOUDY CLEAR Specific [place] Urine 1.025 1.005-1.025 pH Urine 6.0 5.0-9.0 [...] SEEN NONE SEEN #/LPF Urine Culture Indicated YES-[facility] [place] Performing Lab: see note [facility] TSH Reviewed date:11/07/2024 03:13:58 PM Interpretation: Performing Lab: Notes/Report: [facility] , Thyroid Stimulating Hormone 0.052 0.358-3.740 uIU/mL Performing Lab: see note - [facility] LB T4 Reviewed date:11/07/2024 03:13:58 PM Interpretation: Performing Lab: Notes/Report: [facility] , T4 Thyroxine 10.50 4.80-13.90 ug/dL Performing Lab: see note - [facility] LB PERIPHERAL SMEAR Reviewed date:11/09/2024 09:02:01 PM Interpretation: Performing Lab: Notes/Report: [facility] , Peripheral Smear SEE SCANNED REPORT Performing Lab: see note - [facility] LB MAGNESIUM Reviewed date:11/07/2024 03:13:58 PM Interpretation: Performing Lab: Notes/Report: [facility] , Magnesium 1.9 1.8-2.4 mg/dL Performing Lab: see note ML - [facility] LB LDH Reviewed date:11/07/2024 03:13:58 PM Interpretation: Performing Lab: Notes/Report: [facility] , Lactate Dehydrogenase 5257 81-234 U/L Performing Lab: see note ML - [facility] LB LACTATE or LACTIC ACID Reviewed date:11/07/2024 03:13:58 PM Interpretation: Performing Lab: Notes/Report: [facility] , Lactate/Lactic Acid 0.9 0.4-2.0 mmol/L Performing Lab: see note ML - [facility] LB FREE T3 Reviewed date:11/07/2024 03:13:58 PM Interpretation: Performing Lab: Notes/Report: [facility] , Free T3 1.85 2.18-3.98 pg/mL Performing Lab: see note ML - [facility] LB FOLATE Reviewed date:11/07/2024 03:13:58 PM Interpretation: Performing Lab: Notes/Report: [facility] , Folate 21.10 8.60-58.90 ng/mL Performing Lab: see note ML - [facility] LB CBC AUTO DIFF Reviewed date:11/07/2024 03:13:58 PM Interpretation: Performing Lab: Notes/Report: [facility] , White Blood Count 2.2 [...] fL Performing Lab: see note ML - [facility] LB ANTIBODY ID PANEL Reviewed date:11/08/2024 07:38:21 PM Interpretation: Performing Lab: Notes/Report: [facility] , Antibody Identification E LAB TESTING Reviewed date:10/11/2024 08:14:00 PM Interpretation: Performing Lab: Notes/Report: [id number] Alkaline Phosphatase Isoenzymes [facility] , Miscellaneous Test COMMENT . Test Ordered: [id number] Alk Phos Isoenzyme Alkaline Phosphatase 80 IU/L CB Reference Range: 44-121 Liver Fraction: 78 % CB Reference Range: 18-85 Bone Fraction: 22 % CB Reference Range: 14-68 Intestinal Frac.: 0 % CB Reference Range: 0-18 Performed at: - [facility] [address] [id number] Typesetting Machine Tender: Brayan Pena PhD, Phone: [phone] Performing Lab: see note - [facility] LB PROF 14(COMP METB) Reviewed date:10/10/2024 01:39:20 PM Interpretation: Performing Lab: Notes/Report: [facility] , Sodium 144 136-145 mmol/L [...] 1.4 Performing Lab: see note ML - [facility] LB CBC AUTO DIFF Reviewed date:10/10/2024 01:39:20 PM Interpretation: Performing Lab: Notes/Report: [facility] , White Blood Count 3.9 [...] 3/uL Performing Lab: see note ML - [facility] LB Erythrocyte Sedimentation Ra te Reviewed date:09/07/2024 07:57:57 PM Interpretation: Performing Lab: Notes/Report: [facility] , Erythrocyte Sedimentation Rate 3 <=30 mm/hr Performing Lab: see note ML - [facility] LB IRON Reviewed date:09/07/2024 07:57:57 PM Interpretation: Performing Lab: Notes/Report: [facility] , Iron 134.0 50.0-170.0 ug/dL Performing Lab: see note - [facility] LB GLYCOHEMOGLOBIN A1C Reviewed date:09/07/2024 07:57:57 PM Interpretation: Performing Lab: Notes/Report: [facility] , Glycohemoglobin A1C 7.0 4.5-6.2 % ADA RECOMMENDED LIMIT 4.0 - 6.0 ADA THERAPEUTIC TARGET < 7.0 ACTION SUGGESTED > 7.0 Estimated Average Glucose 154 Performing Lab: see note ML - [facility] CT lung screening low-dose Reviewed date:05/14/2024 02:32:46 PM Interpretation: Performing Lab: Notes/Report: Source Facility: [place] [address] [place] [address] CT Scan Report Signed Patient: ANDREIA THOMAS MR#: [id number] : 1965 Acct:[id number] Age/Sex: 58 / F ADM Date: 05/10/24 Loc: CT Attending Dr: Kaitlyn Downing M.D. Ordering Physician: Kaitlyn Downing M.D. Date of Service: 05/10/24 Procedure(s): CT lung screening low-dose Accession Number(s): [id number] cc: Kaitlyn Downing M.D. [place] [address] Patient Name: ANDREIA THOMAS MRN: [id number] date: 1965 Sex: F Assigned Patient Location: CT Current Patient Location: Accession/Order Number: [id number] Exam Date: 05/10/2024 09:32 Report Date: 05/11/2024 [...] M.D. Signed By: 05/11/24607 DD/ 4 TD/TT: Supervisor Wet Room: [place] [address] CT Scan Report Signed Patient: TY THOMAS MR#: [id number] : 1965 Acct:[id number] Age/Sex: 58 / F ADM Date: 05/10/24 Loc: CT Attending Dr: Monica Downing M.D. Ordering Physician: Kaitlyn Downing M.D. Date of Service: 05/10/24 Procedure(s): CT ketan g screening low-dose Accession Number(s): [id number] cc: Kaitlyn Downing M.D. [place] [address] Patient Name: ANDREIA THOMAS MRN: [id number] date: 1965 Sex: F Assigned Patient Location: CT Current Patient Location: Accession/Order Numb er: [id number] Exam Date: 09:32 Report Date: 05/11/2024 06:05 [...] M.D. Signed By: 05/11/24607 DD/ 4 TD/TT: Supervisor Wet Room: PTT Reviewed date:11/07/2024 03:13:58 PM Interpretation: Performing Lab: Notes/Report: [facility] , Partial Thromboplastin Time 25.3 22.3-36.2 sec Performing Lab: see note ML - [facility] LB AMMONIA Reviewed date:11/07/2024 03:13:58 PM Interpretation: Performing Lab: Notes/Report: [facility] , Ammonia 16 11-32 umol/L Performing Lab: see note - [facility] LB BNP Reviewed date:09/07/2024 07:57:57 PM Interpretation: Performing Lab: Notes/Report: [facility] , NT Pro B Type Natriuretic Pept 168.0 <=900.0 pg/mL Performing Lab: see note - [facility] LB Manual Differential Reviewed date:11/18/2024 12:00:18 PM Interpretation: Performing Lab: Notes/Report: [facility] , Segmented Neutrophils % Manual 72.0 43.0-75.0 [...] 2+ Ovalocytes 1+ Performing Lab: see note - [facility] LB PROF CHEM 8 (BAS METB) Reviewed date:11/18/2024 12:00:18 PM Interpretation: Performing Lab: Notes/Report: [facility] , Sodium 148 136-145 mmol/L Potassium 3.6 3.5-5.1 mmol/L Chloride 109 98-107 mmol/L Carbon Dioxide 29.5 21.0-32.0 mmol/L Anion Gap 13.1 Glucose 104 74-106 mg/dL Blood Urea Nitrogen 9.0 7.0-18.0 mg/dL Creatinine 0.49 0.55-1.02 mg/dL Estimated GFR ( Mendy >60 >=60 mL/min/1.73m 2 Estimated GFR (Non- Radha >60 >=60 mL/min/1.73m 2 BUN Creatinine Ratio 18.4 Calcium 8.7 8.5-10.1 mg/dL Performing Lab: see note - [facility] LB Manual Differential Reviewed date:11/08/2024 05:26:51 PM Interpretation: Performing Lab: Notes/Report: [facility] , Segmented Neutrophils % Manual [...] Performing Lab: see note ML - [facility] LB Reason For Referral Diagnosis 1 GERD (gastroesophage al reflux disease) (K21.9) Referral Organization [facility] Referring Provider First Name Salazar Referring Provider Last Name Salina Referring Provider [facility] alexandra Referred Provider Kenan Wynne Referred Provider Specialty General Surg eugenia Referral Priority Routine Reason home health and phys ical therapy Diagnosis 1 Weakness (R53.1) Diagnosis 2 Vertigo (R42) Diagnosis 3 Arthralgia (M25.50) Referral Organization [facility] Referring Provider First Name Salazar Referring Provider Last Name Salina [facility]erred Provider [facility]erral Priority Routine Diagnosis 1 Neutropenia (D70.9) Diagnosis 2 Cirrhosis (K74.60) Diagnosis 3 Coagulopathy (D68.9) Diagnosis 4 Pancytopenia (D61.81 8) Diagnosis 5 Severe anemia (D64.9 ) Diagnosis 6 Thrombocytopenia (D6 9.6) Diagnosis 7 Diabetic neuropathy (E11.40) Referral Organization [facility] Referring Provider First Name Salazar Referring Provider Last Name Salina Referring Provider [facility] icine Referred Provider [facility] Referred Provider Specialty Home Health Agency Referral Priority Routine Medications Medication SIG (Take, Route, Frequency, Duration) Notes Start Date End Date Status Levothyroxine Sodium 150 MCG 1 tablet Orally in the morning on an empty stomach for 90 days Active DULoxetine HCl 20 MG 1 capsule Orally On ce a day for 30 days 07/03/2024 Active Cholecalciferol 1.25 MG (36193 UT) 1 capsule Orally once weekly for [...] PRN 04/04/2024 Active Vitamin D3 1.25 MG (20794 UT) 1 capsule Orally weekly for 90 [...] Problem Status W/U Status Risk Notes Problem [id number] Unspecified nonsuppurative otitis media, left ear (H65.92) Active confirmed Problem Chronic respiratory failure (02948793) Chronic respiratory failure with hypoxia (J96.11) Active confirmed Problem 618745387 Other diseases o f tongue (K14.8) Active confirmed Problem Palpitations (12639189) Palpitations (R00.2) Active confirmed Problem 88642707 Nasal congestion (R09.81) Active confirmed Problem 150857213 Solitary pulmona ry nodule (R91.1) Active confirmed Problem Gastroesophageal reflux disease (344156398) GERD (gastroesophageal reflux disease) (K21.9) Active confirmed Problem Hypothyroid (27310085) Hypothyroid (E03.9) Activ e confirmed Problem Anxiety state (800149804) Acute anxiety (F41.9) Active confirmed Problem Vitamin B12 deficien cy (188713396) Vitamin B12 deficiency (E53.8) Active confirmed Problem Sleep apnea (17678041) Sleep roofer ea (G47.30) Active confirmed Problem Vertigo (917019774) Vertigo (R42) Active confir med Problem Elevated liver enzym es level (550453155) Elevated liver enzymes (R74.8) Active confirmed Problem Vitamin D deficiency (07116531) Vitamin D deficiency (E55.9) Active confirmed Problem Arthralgia (28319872) Arthralgia (M25.50) Active confirmed Problem Allergic rhinitis (68442508) Allergic rhinitis (J30.9) Active confirmed Problem Fatty liver (269722125) Fatty liver (K76.0) Active confirmed Problem Cirrhotic (095803919) Cirrhosis (K74.60) Active confirmed Problem Cervical disc diseas e (178932103) Cervical disc disease (M50.90) Active confirmed Problem Cellulitis (813057151) Cellulitis (L03.90) Activ e confirmed Problem Pancytopenia (872976917) Pancytopenia (D61.818) Active confirmed Problem Degenerative disc disease (48893293) DDD (degenerative disc disease), lumbar (M51.36) Active confirmed Problem Tobacco user (420059045) Cigarette nicotine dependence without complication (F17.210) Active confirmed Problem Thrombocytopenia (940189595) Thrombocytopenia (D69.6) Active confirmed Problem Diabetic neuropathy (339410648) Diabetic neuropathy (E11.40) Active confirmed Problem Neutropenia (596630958) Neutropenia (D70.9) Active confirmed Problem Diverticular disease of colon (328967571) Diverticula of colon (K57.30) Active confirmed Problem Coagulopathy (36205052) Coagulopathy (D68.9) Active confirmed Problem Anemia (122416397) Severe anemia (D64.9) Active confirmed Problem Polycythemia (913522065) Polycythemia (D75.1) Active confirmed Problem Abnormal hemoglobin (6311279) Abnormal hemoglobin (D58.2) Active confirmed Problem SI - Stress incontinence (13757232) Stress incontinence (N39.3) Active confirmed Problem Acute urinary tract infection (106787070) Acute UTI (N39.0) Active confirmed Problem Agoraphobia (64019485) Agoraphob ia (F40.00) Active confirmed Problem 14315802 Acute non-recurr ent sinusitis, unspecified location (J01.90) Active confirmed Problem hypercholesterolemia (disorder) (51582958) Hypercholesteremia (E78.00) Active confirmed Problem Type II diabetes mellitus without complication (241418261) Controlled type 2 diabetes mellitus (E11.9) Active confirmed Problem Thyromegaly (3576157) Thyromegaly (E01.0) Active confirmed Vital Signs Blood pressure diastolic 72 mm Hg 02/05/2025 Height 62 in 02/05/2025 Blood pressure systolic 138 mm Hg 02/05/2025 Weight 147.8 lbs 02/05/2025 BMI 27.03 kg/m2 02/05/2025 Procedures Procedure Date Ordered Date Performed Result Body Sit e Holter Monitor - 3 days up to 14 days 02/05/2025 N/A Encounters Encounter Location Date Provider Diagnosis [address] [address] 09/05/2024 Salazar Hoy Palpitations R00.2 ; GERD (gastroesophageal reflux disease) K21.9 and Hypothyroid E03.[address] [address] 11/06/2024 Salazar Hoy GERD (gastroesophage al reflux disease) K21.9 ; Elevated liver enzymes R74.8 and Hypothyroid E03.[address] [address] 11/17/2024 Salazar Hoy Hypothyroid E03.9 ; GERD (gastroesophageal reflux disease) K21.9 and Pancytopenia D61.[address] [address] 04/04/2024 Salazar Hoy Acute non-recurrent sinusitis, unspecified location J01.90 ; Nasal congestion R09.81 ; Vertigo R42 ; GERD (gastroesophageal reflux disease) K21.9 and Diabetic neuropathy E11.[address] [address] 05/10/2024 Salazar Hoy GERD (gastroesophage al reflux disease) K21.[address] [address] 07/03/2024 Salazar Hoy GERD (gastroesophage al reflux disease) K21.9 ; Hypothyroid E03.9 ; Controlled type 2 diabetes mellitus E11.9 ; Solitary pulmonary nodule R91.1 and Vertigo R42 [facility] [address] [place] [address] 09/27/2024 Salazar Hoy Hypothyroid E03.9 an d GERD (gastroesophageal reflux disease) K21.9 [facility] [address] [place] [address] 02/05/2025 Salazar Hoy Fatty liver K76.0 ; Palpitation R00.2 and Acute anxiety F41.9 [facility] [address] [place] [address] 01/29/2025 Salazar Hoy GERD (gastroesophage al reflux disease) K21.9 [facility] [address] [place] [address] 02/05/2025 Salazar Hoy [facility] [address] [place] [address] 02/27/2025 Salazar Hoy [facility] [address] [place] [address] 11/17/2024 Salazar Hoy Weakness R53.1 ; Arthralgia M25.50 and Vertigo R42 [place] [address] [place] [address] 11/23/2024 Salazar Hoy Neutropenia D70.9 ; Coagulopathy D68.9 ; UTI (urinary tract infection) N39.0 ; Hypokalemia E87.6 and Cirrhosis K74.60 [facility] [address] [place] [address] 12/11/2024 Salazar Hoy [facility] [address] [place] [address] 12/15/2024 Salazar y [facility] [address] [place] [address] 01/10/2025 Salazar Hoy [facility] [address] [place] [address] 01/22/2025 Salazar Hoy GERD (gastroesophage al reflux disease) K21.9 [facility] [address] [facility] [place] [address] 11/09/2024 Salazar Riverawerner [facility] [address] [place] [facility] [address] 11/09/2024 Salazar Riverawerner [facility] [address] [place] [facility] [address] 11/14/2024 Salazar werner [facility] [address] [place] [facility] [address] 11/15/2024 Salazar Riverawerner [facility] [address] [place] [facility] [address] 11/16/2024 Salazar werner [facility] [address] [place] [facility] [address] 11/17/2024 Salazar werner [facility] [address] [place] [facility] [address] 09/07/2024 Salazar Downing Abnormal hemoglobin D58.2 [facility] [address] [place] [facility] [address] 09/27/2024 Salazar Downing Acute non-recurrent sinusitis, unspecified location J01.90 [facility] [address] [place] [facility] [place] [address] 09/28/2024 Salazar werner [facility] [address] [place] [facility] [address] 10/10/2024 Salazar Downing [facility] [address] [place] [facility] [address] 10/18/2024 Salazar Downing [facility] [address] [place] [facility] [address] 11/06/2024 Salazar Downing [facility] [address] [place] [facility] [address] 04/28/2024 Salazar Downing Cigarette nicotine dependence without complication F17.210 [facility] [address] [facility] [place] [address] 05/11/2024 Salazar Downing [facility] [address] [facility] [place] [address] 05/14/2024 Salazar Downing [facility] [address] [facility] [place] [address] 06/30/2024 Salazar Downing Controlled type 2 diabetes mellitus E11.9 [facility] [address] [place] [facility] [place] [address] 08/01/2024 Salazar Downing [facility] [address] [place] [facility] [address] 08/28/2024 Salazar Downing Wellness examination Z01.89 Assessments Encounter Date Diagnosis (ICD Code) Assessment Notes Treatment Notes Treatment Clinical Notes Section Notes 04/04/2024 Nasal congestion (ICD-10 - R09.81) 04/04/2024 Acute non-recurrent sinusitis, unspecified location (ICD-10 - J01.90) Rest and drink more liquids, especially water. You may use a humidifier or vaporizer to help keep the drainage moist. Swpu-kuk-wjopwlb Nasal Saline may help the stuffy and runny nose. Use Ibuprofen and or Tylenol as needed for fever, chills, body aches or pain. Children 5 years old should not be given vclw-wei-rapvnln cough and cold medications such as guaifenesin and dextromethorphan. If you're over age 5, you may try fwpp-omj-rsbvykn cold medications such as guaifenesin and dextromethorphan, [...] symptoms do not improve within 3-5 days 05/10/2024 GERD (gastroesophagea l reflux disease) (ICD-10 - K21.9) 07/03/2024 GERD (gastroesophagea l reflux disease) (ICD-10 - K21.9) 07/03/2024 Hypothyroid (ICD-10 - E03.9) 09/27/2024 GERD (gastroesophagea l reflux disease) (ICD-10 - K21.9) 09/27/2024 Hypothyroid (ICD-10 - E03.9) 11/06/2024 GERD (gastroesophagea l reflux disease) (ICD-10 - K21.9) 02/05/2025 Fatty liver (ICD-10 - K76.0) 04/28/2024 Cigarette nicotine dependence without complication (ICD-10 - F17.210) 06/30/2024 Controlled type 2 diabetes mellitus (ICD-10 - E11.9) 08/28/2024 Wellness examination (ICD-10 - Z01.89) 09/07/2024 Abnormal hemoglobin (ICD-10 - D58.2) 09/27/2024 Acute non-recurrent sinusitis, unspecified location (ICD-10 - J01.90) 11/17/2024 Weakness (ICD-10 - R53.1) 11/06/2024 Elevated liver enzymes (ICD-10 - R74.8) 11/17/2024 GERD (gastroesophagea l reflux disease) (ICD-10 - K21.9) 11/17/2024 Hypothyroid (ICD-10 - E03.9) 09/05/2024 Palpitations (ICD-10 - R00.2) 09/05/2024 GERD (gastroesophagea l reflux disease) (ICD-10 - K21.9) 11/17/2024 Arthralgia (ICD-10 - M25.50) 11/23/2024 Neutropenia (ICD-10 - D70.9) 11/23/2024 Coagulopathy (ICD-10 - D68.9) 01/22/2025 GERD (gastroesophagea l reflux disease) (ICD-10 - K21.9) 01/29/2025 GERD (gastroesophagea l reflux disease) (ICD-10 - K21.9) 11/23/2024 UTI (urinary tract infection) (ICD-10 - N39.0) 09/05/2024 Hypothyroid (ICD-10 - E03.9) 11/17/2024 Pancytopenia (ICD-10 - D61.818) 02/05/2025 Palpitation (ICD-10 - R00.2) 11/17/2024 Vertigo (ICD-10 - R42) 11/06/2024 Hypothyroid (ICD-10 - E03.9) 07/03/2024 Controlled type 2 diabetes mellitus (ICD-10 - E11.9) 04/04/2024 Vertigo (ICD-10 - R42) 04/04/2024 GERD (gastroesophagea l reflux disease) (ICD-10 - K21.9) 07/03/2024 Solitary pulmonary nodule (ICD-10 - R91.1) 02/05/2025 Acute anxiety (ICD-10 - F41.9) 11/23/2024 Hypokalemia (ICD-10 - E87.6) 11/23/2024 Cirrhosis (ICD-10 - K74.60) 04/04/2024 Diabetic neuropathy (ICD-10 - E11.40) 07/03/2024 Vertigo (ICD-10 - R42) Plan Of Treatment Pending Test Test Name [...] Date MMO [employer] [address] [place] [address] [id number] Yemi Thomas Spouse - patient is the [...] Allergic rhinitis J30.9 Surgical History Surgery Date(Month/Year) ORIF Tarsal Metatarsal Tonsills Total Hysterectomy Right Wrist Left Foot Right Knee Appendix EGD 10/16/24
--- OUTSIDE RECORDS SUMMARY | 2025-03-06 12:16 | XMS_ITS | Encounter Summary ---
Author Organization [facility] Address [address] [place] [address] Care Team Providers Care Training Personnel Supervisor Name Role Phone Henrik Downing MD Primary Care Provider [phone] Encounter Details Date Type Department Care Team (Late st Contact Info) Description 05/31/2023 Clinisync Result Encounter [facility] Department Unsolicited Shannan Velez MD [address] [facility] [address] [place] [address] Social History Tobacco Use Types Packs/Day Years [...] Office Visit [facility] [address] [place] [phone] Misty Peng MD [address] [facility] [address] [place] [address] documented as of this encounter [...] on filedocumented in this encounter Care Teams Training Personnel Supervisor Relationship Specialty Start Date End Date Henrik Downing MD [address] [place] [address] PCP - General Family Medicine 05/03/23 documented as of this encounter
--- OUTSIDE RECORDS SUMMARY | 2025-03-06 12:16 | XMS_ITS | Clinical Summary ---
Author Organization [facility] Address [address] [place] [address] Care Team Providers Care Industrial Relations Officer Name Role Phone Юлия Guerra MD Unavailable [phone] Henrik Downing MD Primary Care Provider [phone] Allergies Active Allergy Reactions Criticality Noted Date [...] Encounters Date Type Department Care Team Description 03/06/2025 Orders Only [place]ematology[place] [address] [place] [address] Loc Toribio MD, PhD Clonal hematopoiesis of indeterminate potential (Primary Dx) 03/05/2025 Telephone Hematology[place] [address] [place] [address] Loc Toribio MD, PhD Patient Question 01/31/2025 12:30 PM EDT Visit (SP) Office [place]ematology[place] [address] [place] [address] Loc Toribio MD, PhD Clonal hematopoiesis of indeterminate potential (Primary Dx) 01/31/2025 Abstract Hematology/[place] [address] [place] [address] Salome Cornejo, Research Coordinator Research (IRB [id number] Informed Consent) 01/31/2025 Travel 01/26/2025 Lab Requisition [facility] [address] [place] [address] Loc Toribio MD, PhD Person encountering health [...] is lower risk 7 01/31/2025 Data from: https://www.neighborhoodatlas.medicine.[facility]/. Last address used for calculation [address] [...] 2:00 PM EST Visit (SP) Office Hematology/Oncology [address] [place] [address] [place] [address] [place] [address] FOLLOW UP Health Maintenance Due Date Last [...] PM EDT Clonal hematopoiesis of indeterminate potential [facility] [place] 1 Routine 01/31/2025 2 [...] SCREEN, SERUM (01/31/2025 2:22 PM EDT) Pathologist [facility] MPA Result A poorly defined region of restricted mobility is present that may represent an M protein.(A) No M protein is identifie d. 02/04/2025 11:02 AM EDT [facility] Interpretation (MPA) Poorly defined region of [...] correlation is necessary. 02/04/2025 11:02 AM EDT [facility] Staff Review (MPA) Reviewed by Dr. Benjamin Rai MD 02/04/2025 11:02 AM EDT [facility] Blood BLOOD SPECIMEN / Unknown Venipuncture / Unknown 01/31/2025 2:22 PM EDT 01/31/2025 2:23 PM EDT us Loc Toribio MD, PhD LABORATORY Fin al Result [facility] [address] [place] [address], * (ABNORMAL) PROTEIN ELECTROPHORESIS SERUM WITH EFFIE (P) (01/31/2025 2:22 PM EDT) Albumin for SPE 4.64 3.43 - 5.41 g/dL 02/05/2025 9:26 AM EDT [facility] Alpha 1 Globulin 0.36 0.18 - 0.43 g/dL 02/05/2025 9:26 AM EDT [facility] Alpha 2 Globulin 0.81 0.42 - 0.98 g/dL 02/05/2025 9:26 AM EDT [facility] Beta Globulin 0.93 0.61 - 1.17 g/dL 02/05/2025 9:26 AM EDT [facility] Gamma Globulin 1.07 0.53 - 1.51 g/dL 02/05/2025 9:26 AM EDT [facility] Interpretation (Prot Electro) An atypical region of restricted mobility is identified on protein electrophoresi s.(A) No definitive M protein is identified on protein electrophore sis. 02/05/2025 9:26 AM EDT [facility] M-Protein Location 02/05/2025 9:26 AM EDT [facility] Comment:Not Applicable. M-Protein Concentration 0.00 <=0.00 g/dL 02/05/2025 9:26 AM EDT [facility] SPE Staff Review Reviewed by Dr. Benjamin Rai MD 02/05/2025 9:26 AM EDT [facility] Comment (Serum Prot Electro) A reflex test for Monoclonal Protein analysis (immunofixatio n) has been ordered. 02/05/2025 9:26 AM EDT [facility] Interpretation Comment for Protein Electrophoresis The atypical region is relatively poorly defined and may represent an unusual presentation of polyclonal immunoglobulin s, but cannot rule out the presence of a low level M protein. If clinically indicated, monoclonal protein analysis and serum free light chain analysis are suggested to evaluate further for monoclonal gammopathy. 02/05/2025 9:26 AM EDT [facility] Blood BLOOD SPECIMEN / Unknown Venipuncture / Unknown 01/31/2025 2:22 PM EDT 01/31/2025 2:23 PM EDT Narrative [facility] - 02/05/2025 9:26 AM EDT Serum electrophoresis test was performed using the Pin-Digital V8 NEXUS capillary electrophoresis method. Results obtained with different assay methods or kits cannot be used interchangeably. us Loc Toribio MD, PhD LABORATORY Fin al Result [facility] [address] [facility] [address] [address], * RBC MORPHOLOGY (01/31/2025 2:22 PM EDT) Platelet Estimate Adequate 02/01/2025 6:50 PM EDT [facility] Red Cell Morph Reviewed: unremarkable 02/01/2025 6:50 PM EDT [facility] Blood BLOOD SPECIMEN / Unknown Venipuncture / Unknown 01/31/2025 2:22 PM EDT 01/31/2025 2:23 PM EDT us Loc Toribio MD, PhD LABORATORY Fin al Result Performing Organization Address City/[facility]/ZIP Co de Phone Number [facility] [address] [place] [address], [place] * LARGE GRANULAR LYMPH COUNT (01/31/2025 2:22 PM EDT) [facility] Percent LGL 7.0 % of Lymphocytes 025 6:53 PM EDT [facility] Absolute LGL 0.15 k/uL 02/01/2025 6:53 PM EDT [facility] Blood BLOOD SPECIMEN / Unknown Venipuncture / Unknown 01/31/2025 2:22 PM EDT 01/31/2025 2:23 PM EDT us Loc Toribio MD, PhD LABORATORY Fin al Result Performing Organization Address [facility] Co de Phone Number [facility] [address] [place] [address], [place] * IMMATURE PLATELET FRACTION (01/31/2025 2:22 PM EDT) [facility] Immature PLT Fract 4.4 0.9 - 7.2 % 01/31/2025 2:39 PM EDT [facility] Blood BLOOD SPECIMEN / Unknown Venipuncture / Unknown 01/31/2025 2:22 PM EDT 01/31/2025 2:23 PM EDT us Loc Toribio MD, PhD LABORATORY Fin al Result [facility] [address] [place] [address], [place] * (ABNORMAL) LACTATE DEHYDROGENASE (01/31/2025 2:22 PM EDT) [facility] LD 218(H) 135 - 214 U/L 01/31/2025 3:44 PM EDT [facility] Blood BLOOD SPECIMEN / Unknown Venipuncture / Unknown 01/31/2025 2:22 PM EDT 01/31/2025 2:23 PM EDT us Loc Toribio MD, PhD LABORATORY Fin al Result [facility] [address] [facility] [address] [place] [address], * [facility] [place] 1 (01/31/2025 2:22 PM EDT) Test 1 02/07/2025 3:01 PM EDT [facility] Comment:Research Test Results 1 02/07/2025 3:01 PM EDT [facility] Comment:Research Referral Lab 1 02/07/2025 3:01 PM EDT [facility] Comment:Research Blood BLOOD SPECIMEN / Unknown Venipuncture / Unknown 01/31/2025 2:22 PM EDT 01/31/2025 2:23 PM EDT us Loc Toribio MD, PhD LABORATORY Fin al Result Performing Organization Address [facility] Co de Phone Number [facility] [address] [place] [address] * ZINC BLD (01/31/2025 2:22 PM EDT) Zinc 77 60 - 120 ug/dL 02/01/2025 12:26 PM EDT [facility] Comment:This test was develo ped, and its performance characteristics determined by the [facility] Department of Pathology and Laboratory Medicine. It has not been cleared or approved by the FDA. The [facility] Department of Pathology and Laboratory Medicine is regulated under CLIA as qualified to perform high- complexity testing. This test is used for clinical purposes. It should not be regarded as investigational or for research. Blood BLOOD SPECIMEN / Unknown Venipuncture / Unknown 01/31/2025 2:22 PM EDT 01/31/2025 2:23 PM EDT us Loc Toribio MD, PhD LABORATORY Fin al Result Performing Organization Address City/[facility]/ZIP Co de Phone Number [facility] [address] [place] [id number], [place] * PATHOLOGIST INTERPRETATION CBC/DIFF (01/31/2025 2:22 PM EDT) Pathologist Interpretation, CBCDIF Elevated hemoglobin 02/01/2025 6:54 PM EDT [facility] CBCDIF Pathologist Reviewed by Reviewed by Aysha Moseley M.D. 02/01/2025 6:54 PM EDT [facility] Blood BLOOD SPECIMEN / Unknown Venipuncture / Unknown 01/31/2025 2:22 PM EDT 01/31/2025 2:23 PM EDT us Loc Toribio MD, PhD LABORATORY Fin al Result Performing Organization Address [facility] Co de Phone Number [facility] [address] [place] [id number], [place] * PROTEIN, TOTAL (01/31/2025 2:22 PM EDT) Pathologist [facility] Protein, Total 7.8 6.3 - 8.0 g/dL 01/31/2025 4:08 PM EDT [facility] Blood BLOOD SPECIMEN / Unknown Venipuncture / Unknown 01/31/2025 2:22 PM EDT 01/31/2025 2:23 PM EDT us oLc Toribio MD, PhD LABORATORY Fin al Result [facility] [address] [place] [phone], [place] * LEAD BLOOD (01/31/2025 2:22 PM EDT) Pathologist [facility] Lead <1.0 <3.5 ug/dL 02/01/2025 3:24 PM EDT [facility] Comment: The Centers for Disease Control [...] and its performance characteristics determined by the [facility] Department of Pathology and Laboratory Medicine. It has not been cleared or approved by the FDA. The [facility] Department of Pathology and Laboratory Medicine is regulated under CLIA as qualified to perform high- complexity testing. This test is used for clinical purposes. It should not be regarded as investigational or for research. Blood, Venous BLOOD SPECIMEN / Unknown Venipuncture / Unknown 01/31/2025 2:22 PM EDT 01/31/2025 2:23 PM EDT Loc Toribio MD, PhD LABORATORY Fin al Result [facility] [address] [place] [address], * (ABNORMAL) IMMUNOGLOBULINS,IGG,IGA,IGM (01/31/2025 2:22 PM EDT) IgG 978 700 - 1,600 mg/dL 01/31/2025 8:02 PM EDT [facility] IgA 218 70 - 400 mg/dL 01/31/2025 8:02 PM EDT [facility] IgM 302(H) 40 - 230 mg/dL 01/31/2025 8:02 PM EDT [facility] Blood BLOOD SPECIMEN / Unknown Venipuncture / Unknown 01/31/2025 2:22 PM EDT 01/31/2025 2:23 PM EDT us Loc Toribio MD, PhD LABORATORY Fin al Result [facility] [address] [place] [phone], [place] * HAPTOGLOBIN (01/31/2025 2:22 PM EDT) Haptoglobin 204 31 - 238 mg/dL 01/31/2025 4:08 PM EDT [facility] Blood BLOOD SPECIMEN / Unknown Venipuncture / Unknown 01/31/2025 2:22 PM EDT 01/31/2025 2:23 PM EDT Loc Toribio MD, PhD LABORATORY Fin al Result Performing Organization Address City/[facility] Co de Phone Number [facility] [address] [place] [address], [place] * (ABNORMAL) ERYTHROPOIETIN/EPO (01/31/2025 2:22 PM EDT) Erythropoietin 2.4(L) 2.6 - 18.5 mIU/mL 02/01/2025 10:09 AM EDT [facility] Blood BLOOD SPECIMEN / Unknown Venipuncture / Unknown 01/31/2025 2:22 PM EDT 01/31/2025 2:23 PM EDT Narrative [facility] - 02/01/2025 10:09 AM EDT Test analyzed by the Sharri DxI method. Loc Toribio MD, PhD LABORATORY Fin al Result Performing Organization Address City/[facility]/ZIP Co de Phone Number [facility] [address] [place] [phone], [place] * COPPER BLOOD (01/31/2025 2:22 PM EDT) Copper 155 80 - 155 ug/dL 02/01/2025 12:26 PM EDT [facility] Comment:This test was develo ped, and its performance characteristics determined by the [facility] Department of Pathology and Laboratory Medicine. It has not been cleared or approved by the FDA. The [facility] Department of Pathology and Laboratory Medicine is regulated under CLIA as qualified to perform high- complexity testing. This test is used for clinical purposes. It should not be regarded as investigational or for research. Blood BLOOD SPECIMEN / Unknown Venipuncture / Unknown 01/31/2025 2:22 PM EDT 01/31/2025 2:23 PM EDT us Loc Toribio MD, PhD LABORATORY Fin al Result [facility] [address] [facility] [address] [place] [phone], [place] * (ABNORMAL) COMPREHENSIVE METABOLIC PANEL (01/31/2025 2:22 PM EDT) Protein, Total 8.2(H) 6.3 - 8.0 g/dL 01/31/2025 2:52 PM EDT [facility] Albumin 4.6 3.9 - 4.9 g/dL 01/31/2025 2:52 PM EDT [facility] Calcium, Total 10.1 8.5 - 10.2 mg/dL 01/31/2025 2:52 PM EDT [facility] Bilirubin, Total 0.3 0.2 - 1.3 mg/dL 01/31/2025 2:52 PM EDT [facility] Alkaline Phosphatase 271(H) 34 - 123 U/L 01/31/2025 2:52 PM EDT [facility] AST 26 13 - 35 U/L 01/31/2025 2:52 PM EDT [facility] ALT 46(H) 7 - 38 U/L 01/31/2025 2:52 PM EDT [facility] Glucose 119(H) 74 - 99 mg/dL 01/31/2025 2:52 PM EDT [facility] Comment: The [place] Diabetes Association (ADA) provides guidance for cutoff [...] Standards of Medical Care in Diabetes 2016, [place] Diabetes Association. Diabetes Care. 2016.39(Suppl 1). BUN 12 7 - 21 mg/dL 01/31/2025 2:52 PM EDT [facility] Creatinine 0.60 0.58 - 0.96 mg/dL 01/31/2025 2:52 PM EDT [facility] Sodium 141 136 - 144 mmol/L 01/31/2025 2:52 PM EDT [facility] Potassium 5.1 3.7 - 5.1 mmol/L 01/31/2025 2:52 PM T [facility] Chloride 101 98 - 107 mmol/L 01/31/2025 2:52 PM EDT [facility] CO2 28 22 - 30 mmol/L 01/31/2025 2:52 PM EDT [facility] Anion Gap 12 8 - 15 mmol/L 01/31/2025 2:52 PM EDT [facility] Estimated Glomerular Filtration Rate 102 >=60 mL/min/1.7 3m 01/31/2025 2:52 PM [facility] Comment:Estimated Glomerular Filtration Rate (eGFR) is [...] LABORATORY Fin al Result [facility] [address] [facility] [address] [address], [place] * (ABNORMAL) COMPLETE BLOOD COUNT AND DIFFERENTIAL (01/31/2025 2:22 PM EDT) WBC 10.28 3.70 - 11.00 k/uL 01/31/2025 2:39 PM EDT [facility] Comment:Results checked and verified.No clot detected. [...] 01/31/2025 2:39 PM EDT [facility] MCHC 32.6 30.5 - 36.0 g/dL 01/31/2025 2:39 PM EDT [facility] RDW-CV 12.7 11.5 - 15.0 % 01/31/2025 2:39 PM EDT [facility] Platelet Count 259 150 - 400 [...] EDT [facility] Abs [place] 0.82 <0.87 k/uL 01/31/2025 2:39 PM EDT [...] PM EDT [facility] Immature Granulocytes % 0.5 % 01/31/2025 2:39 PM EDT [facility] Abs Immature Gran 0.05 <0.10 k/uL 025 2:39 PM EDT [facility] NRBC 0.0 /100 WBC 01/31/2025 2:39 PM EDT [facility] Absolute nRBC <0.01 <0.01 k/uL 01/31/2025 2:39 PM EDT [facility] Diff Type Auto 01/31/2025 2:39 PM EDT [facility] Blood BLOOD SPECIMEN / Unknown Venipuncture / Unknown 01/31/2025 2:22 PM EDT 01/31/2025 2:23 PM EDT us Loc Toribio MD, PhD LABORATORY Fin al Result [facility] [address] [place] [address], * OUTSIDE BONE MARROW SLIDE REVIEW (01/26/2025 11:03 AM EDT) Case Report Bone Marrow Patholog y Report Case: [id number] Authorizing Provider: Loc Toribio MD, Collected: 01/26/2025 11:03 AM PhD Ordering Location: [facility] Received: 01/26/2025 11:02 AM [facility] Pathologist: Luis Enrique Andrea MD Specimen: Slide(s), 13 SLIDES [id number] / [id number] 02/08/2025 10:15 AM EDT [facility] FINAL DIAGNOSIS A. [facility], [place], [place] [address]. [id number], 11/10/2024: Bone marrow, aspirate, core biopsy, and clot section: - Hypercellular bone marrow with prominent eythroid hyperplasia and occasional atypical erythroid precursors - Adequate megakaryocytes with unremarkable morphology - Increased iron stores without ring sideroblasts - See comment Peripheral blood, smear: - Pancytopenia with macrocytic anemia and thrombocytopenia - Neutropenia 02/08/2025 10:15 AM EDT [facility] at 1015 EDT Diagnosis Comment This 59-year-old female presented to an outside institution with pancytopenia and a history of vitamin B12 deficiency. The patient underwent a bone marrow study which was submitted to the [facility] for review. The bone marrow is hypercellular [...] findings is suggested. 02/08/2025 10:15 AM EDT [facility] Performing Lab Diagnostic interpretation performed at: [facility], [address] [place] [address], [place] [address] CLIA# [id number] Candle Molder: León Eubanks MD 02/08/2025 10:15 AM EDT [facility] Microscopic Description PERIPHERAL BLOOD: CBC (11/10/2024) [...] VAF of 3%. 02/08/2025 10:15 AM EDT [facility] Disclaimer Laboratory Developed Test (LDT) Disclaimer: Performance characteristics of immunohistochemical, immunofluorescent, and chromogenic in-situ hybridization tests have been determined by the performing laboratory within [facility]'s [facility] Pathology and Laboratory Medicine Department ([facility], [facility], [facility], [facility], [facility], [facility], or [facility]) in a manner consistent with CLIA requirements. One or more of these tests may not have been cleared or approved by the FDA. [facility] is regulated under CLIA as qualified to perform high-complexity testing. These tests are used for clinical purposes. These should not be regarded as investigational or for research. Positive and negative controls stain appropriately. 02/08/2025 10:15 AM EDT [facility] Blocks or Slides MICROSCOPE SLIDE / Unknown 01/26/2025 11:03 AM EDT 01/26/2025 11:02 AM EDT us Loc Toribio MD, PhD SURGICAL PATHOLOGY Final Result [facility] [address] [address], from Last 3 Months [facility] Care Teams Industrial Relations Officer Relationship Specialty Start Date End Date Henrik Downing MD [address] [place] [address] PCP - General Family Medicine 01/24/25 Юлия Guerra MD [address] [place] [address] Referring Hematology/Oncology 01/24/25
--- OUTSIDE RECORDS SUMMARY | 2025-03-06 12:16 | XMS_ITS | Clinical Summary ---
Author Organization [facility] Address [address] [place] [address] Care Team Providers Care Cutter V Groove Name Role Phone Henrik Downing MD Primary Care Provider [phone] Юлия Guerra MD Unavailable [phone] Allergies No known active allergies Medications levothyroxine [...] split. Active ergocalciferol (Vitamin D-2) 1.25 MG (69913 Units) capsuleIndicati ons:Vitamin D deficiency Take 1 [...] schistocytes, repeat smear here negative for schistocytes -[id number] activity mildly low which is nonspecific, however [...] repeat smear here negative for schistocytes -f/u [id number] activity, [facility] flow, BMBx results -CT imaging [...] repeat smear here negative for schistocytes -f/u [id number] activity, [facility] flow, BMBx results -CT imaging [...] schistocytes, repeat smear here -Check hemolysis labs, [id number] -HemOnc on board, grateful for their input -Will be undergoing BMBx today -Daily CBC however minimize phlebotomy as much as possible Assessment & Plan (11/09/2024 11:41 PM EDT): - Initial labs at [facility] found to be WBC 2.2, hemoglobin 5.3, platelet count 31 Repeat labs at [facility] show WBC 3.49, hemoglobin 8.4, platelet [...] Department Care Team Description 02/23/2025 [facility] [address] [place] [phone] Юлия Guerra MD Comprehensive metabolic panel, Vitamin B12, CBC auto differential 01/23/2025 3:50 PM EDT Lab [facility] [address] [place] [address] Vitamin B12 deficiency 01/23/2025 3:00 PM EDT Office Visit [facility] [address] [place] [address] Юлия Guerra MD Vitamin B12 deficiency (Primary Dx); Bone marrow erythroid hyperplasia 01/19/2025 2:25 PM EDT [facility] [place] [address] [place] [address] Pancytopenia (CMS/HCC) 01/04/2025 Abstract [facility] [address] [place] [address] Quique Thurman MD 12/27/2024 10:15 AM EDT Office Visit [facility] [address] [place] [address] Quique Thurman MD Pancytopenia (CMS/HCC) (Primary Dx); Recurrent cold sores 12/05/2024 Telephone [facility] [address] [place] [address] Samantha Patino MA from Last 3 Months [...] drink = 0.6 oz pur e alcohol) [facility] Utilities Answer Date Recorded In the past 12 months has e [employer], gas, oil, or water [employer] threatened to shut off services in your [...] any time in the past 12 m [facility], were you homeless or living in a halfway (including now)? No 11/09/2024 Hunger Vital Sign [...] Center On[facility] [address] [place] [address] Юлия Guerra MD [address] [place] [address] Health Maintenance Due Date Last Done [...] - 10.60 10*3/uL 01/23/2025 4:48 PM EDT [facility] ([facility]) RBC 5.82(H) 3.80 - 5.00 10*6/uL 01/23/2025 4:48 PM EDT [facility] ([facility]) Hemoglobin 16.0(H) 12.0 - 15.0 g/dL 01/23/2025 4:48 PM EDT [facility] ([facility]) Hematocrit 49.7(H) 36.0 - 45.0 % 01/23/2025 4:48 PM EDT [facility] ([facility]) MCV 85.4 82.0 - 98.0 fL 01/23/2025 4:48 PM EDT [facility] ([facility]) MCH 27.5 27.0 - 33.0 pg 01/23/2025 4:48 PM EDT [facility] ([facility]) MCHC 32.2 32.0 - 35.0 g/dL 01/23/2025 4:48 PM EDT [facility] ([facility]) RDW 12.9 11.5 - 15.0 % 01/23/2025 4:48 PM EDT [facility] ([facility]) Neutrophils % 67.5 40.0 - 72.0 % 01/23/2025 4:48 PM EDT [facility] ([facility]) Lymphocytes % 22.3 20.0 - 45.0 % 01/23/2025 4:48 PM EDT [facility] ([facility]) Monocytes % 7.4 5.0 - 12.0 % 01/23/2025 4:48 PM EDT [facility] ([facility]) Eosinophils % 1.6 0.0 - 6.0 % 01/23/2025 4:48 PM EDT [facility] ([facility]) Basophils % 0.7 0.0 - 1.0 % 01/23/2025 4:48 PM EDT [facility] ([facility]) Neutrophils Absolute 5.56 1.60 - 7.60 10*3/uL 01/23/2025 4:48 PM EDT [facility] ([facility]) Lymphocytes Absolute 1.84 1.20 - 4.00 10*3/uL 01/23/2025 4:48 PM EDT [facility] ([facility]) Monocytes Absolute 0.61 0.10 - 1.00 10*3/uL 01/23/2025 4:48 PM EDT [facility] ([facility]) Eosinophils Absolute 0.13 0.00 - 0.50 10*3/uL 01/23/2025 4:48 PM EDT [facility] ([facility]) Basophils Absolute 0.06 0.00 - 0.20 10*3/uL 01/23/2025 4:48 PM EDT [facility] ([facility]) Platelets 223 150 - 400 10*3/uL 01/23/2025 4:48 PM EDT [facility] ([facility]) nRBC % 0.0 0 % 01/23/2025 4:48 PM EDT [facility] ([facility]) Immature Granulocytes % 0.5 0.0 - 1.0 % 01/23/2025 4:48 PM EDT [facility] ([facility]) Immature Granulocytes Absolute 0.04 0.00 - 0.20 10*3/uL 01/23/2025 4:48 PM EDT [facility] ([facility]) Blood Venous blood specimen / Unknown Venipuncture / Unknown 01/23/2025 3:49 PM EDT 01/23/2025 4:33 PM EDT us Юлия Guerra MD LAB BLOOD ORDERABLES Final Res ult Performing Organization Address City/[facility]/ZIP Co de Phone Number [facility] ([facility]) [address], [place] [id number] * Vitamin B12 (01/23/2025 3:49 PM EDT) Vitamin B-12 488 180 - 914 pg/mL 01/23/2025 5:24 PM EDT [facility] ([facility]) Comment: REFERENCE RANGES: 180-914 pg/mL Normal 145-179 pg/mL Indeterminate <145 pg/mL Deficient Blood Venous blood specimen / Unknown Venipuncture / Unknown 01/23/2025 3:49 PM EDT 01/23/2025 4:32 PM EDT us Юлия Guerra MD LAB BLOOD ORDERABLES Final Res ult Performing Organization Address City/[facility]/ZIP Co de Phone Number [facility] ([facility]) [address] [place] [address] * (ABNORMAL) Comprehensive metabolic panel (01/23/2025 3:49 PM EDT) Only the most recent of2 resultswithin the time period is included. Sodium 135(L) 136 - 145 mmol/L 01/23/2025 5:01 PM EDT [facility] ([facility]) Potassium 4.5 3.5 - 5.1 mmol/L 01/23/2025 5:01 PM EDT [facility] ([facility]) Chloride 101 98 - 107 mmol/L 01/23/2025 5:01 PM T [facility] ([facility]) CO2 26 21 - 31 mmol/L 01/23/2025 5:01 PM [facility] ([facility]) Anion Gap 13 7 - 20 mmol/L 01/23/2025 5:01 PM [facility] ([facility]) BUN 10 7 - 25 mg/dL 01/23/2025 5:01 PM [facility] ([facility]) Creatinine 0.62 0.60 - 1.20 mg/dL 01/23/2025 5:01 PM [facility] ([facility]) BUN/Creatinine Ratio 16.1 12/27 5:01 PM [facility] ([facility]) Glucose 204(H) 70 - 100 mg/dL 01/23/2025 5:01 PM [facility] ([facility]) Calcium 9.5 8.6 - 10.3 mg/dL 01/23/2025 5:01 PM [facility] ([facility]) AST 36 13 - 39 U/L 01/23/2025 5:01 PM [facility] ([facility]) ALT (SGPT) 75(H) 7 - 52 U/L 01/23/2025 5:01 PM [facility] ([facility]) Alkaline Phosphatase 248(H) 34 - 104 U/L 01/23/2025 5:01 PM [facility] ([facility]) Total Protein 7.2 6.0 - 8.3 g/dL 01/23/2025 5:01 PM [facility] ([facility]) Albumin 4.2 3.5 - 5.7 g/dL 01/23/2025 5:01 PM [facility] ([facility]) Total Bilirubin 0.3 0.3 - 1.0 mg/dL 01/23/2025 5:01 PM [facility] ([facility]) eGFR 101.3 >60.0 mL/min/1. 73m*2 01/23/2025 5:01 PM [facility] ([facility]) Comment:[facility] s estimated glomerular filtration rate (eGFR) will [...] MD LAB BLOOD ORDERABLES Final Res ult [facility] ([facility]) [address] [place] [address] from Last 3 Months Insurance [employer] Advance Directives * Full Code (Latest Code Status on File) Date Activated Date Inactivated Comments 11/09/2024 8:51 PM 11/14/2024 5:06 PM Care Teams Cutter V Groove Relationship Specialty Start Date End Date Henrik Downing MD [address] [facility] [address] PCP - General Family Medicine 11/10/24 Юлия Guerra MD [address] [place] [phone] Consulting Physician Hematology and Oncology 11/23/24
--- OUTSIDE RECORDS SUMMARY | 2025-03-06 12:16 | XMS_ITS | Clinical Summary ---
Author Organization [facility] Address [id number] [address] [place] [address] Care Team Providers Care Director Emergency Services Name Role Phone Henrik Downing MD Primary Care Provider [phone] Allergies Active Allergy Reactions Criticality Noted Date [...] Narrative PM CARDIOVASCULAR - 02/28/2019 8:13 AM [facility] Patient Name: Andreia Thomas Procedure Date No Time: 02/28/2019 CSN : [id number] Date of : 1965 Admit Type: Outpatient Age: 53 Room: [place] [address] Gender: Female Note Status: Finalized Attending MD: Kenan Johnson DO Procedure: Colonoscopy Indications: Rectal bleeding Providers: Kenan Johnson DO Referring MD: Kenan Johnson DO Medicines: General Anesthesia Complications: No immediate complications. Procedure: After I obtained informed consent, the scope was passed under direct vision. Throughout the procedure, the patient's blood pressure, pulse, and oxygen saturations were monitored continuously. The OLYMPUS CF-190L # [id number] ADULT COLONOSCOPE was introduced through the anus [...] 1 week. Procedure Code(s): --- Professional --- 98798, Colonoscopy, flexible; with ablation of tumor(s), polyp(s), or other lesion(s) (includes pre- and post-dilation and guide wire passage, when performed) 11262, 59, Colonoscopy, flexible; with removal of tumor(s), polyp(s), or other lesion(s) by snare technique 63825, 59, Colonoscopy, flexible; with biopsy, single or multiple Diagnosis Code(s): --- Professional --- K64.9, Unspecified hemorrhoids K62.1, Rectal polyp D12.3, Benign neoplasm of transverse colon (hepatic flexure or splenic flexure) K63.3, Ulcer of intestine D12.7, Benign neoplasm of rectosigmoid junction CPT copyright 2017 [employer] [place] [employer]. All rights reserved. The codes documented in this report are preliminary and upon high value associate review may be revised to meet current compliance requirements. DO Kenan Wang DO 02/28/2019 8:10:51 AM Number of Addenda: 0 Note Initiated On: 02/28/2019 7:14 AM Procedure Note Kenan Johnson DO - 02/28/2019 [facility] Patient Name: Andreia Thomas Procedure Date No Time: 02/28/2019 CSN : [id number] Date of : 1965 Admit Type: Outpatient Age: 53 Room: [place] [address] Gender: Female Note Status: Finalized Attending MD: Kenan Johnson DO Procedure: Colonoscopy Indications: Rectal bleeding Providers: Kenan Johnson DO Referring MD: Kenan Johnson DO Medicines: General Anesthesia Complications: No immediate complications. Procedure: After I obtained informed consent, the scope waspassed under direct vision. Throughout the procedure, the patient's blood pressure, pulse, and oxygensaturations were monitored continuously. The OLYMPUS CF-190L # [id number] ADULT COLONOSCOPE was introduced through the anus [...] 1 week. Procedure Code(s): --- Professional --- 96473, Colonoscopy, flexible; with ablation of tumor(s), polyp(s), or other lesion(s) (includespre- and post-dilation and guide wire passage, when performed) 67848, 59, Colonoscopy, flexible; with removal of tumor(s), polyp(s), or other lesion(s) by snare technique 77156, 59, Colonoscopy, flexible; with biopsy,single or multiple Diagnosis Code(s): --- Professional --- K64.9, Unspecified hemorrhoids K62.1, Rectal polyp D12.3, Benign neoplasm of transverse colon (hepatic flexure orsplenic flexure) K63.3, Ulcer of intestine D12.7, Benign neoplasm of rectosigmoid junction CPT copyright 2017 [employer]. All rights reserved. The codes documented in this report are preliminary and upon high value associate reviewmay be revised to meet current compliance requirements. DO Kenan Wang DO 02/28/2019 8:10:51 AM Number of Addenda: 0 Note Initiated On: 02/28/2019 7:14 AM Kenan Johnson DO GI PROCEDURE ORDERABLES Fin al Result PM CARDIOVASCULAR from Last 3 Months or Most Recently Relevant to Health Maintenance Insurance [employer] Care Teams Director Emergency Services Relationship Specialty Start Date End Date Henrik Downing MD PCP - General 11/14/17
--- OUTSIDE RECORDS SUMMARY | 2025-03-06 12:19 | XMS_ITS | CCD ---
Author Organization [facility] CliniSyny Care Team Providers Care Hook Loader Name Role Phone Dewey Davidson Unavailable Kaitlyn Joy Primary Care Physician [phone] SAHNI Admitting Unavailable HOY [...] Unavailable Kaitlyn Joy MD Primary Care Provider [phone] Mouchli, Mohamad A. Admitting Unavailable Mouchli, Mohamad A. Attending Unavailable Mouchli, Mohamad A. Referring Unavailable Mouchli, Mohamad A. Admitting Unavailable Mouchli, Mohamad A. Attending Unavailable Mouchli, Mohamad A. Referring Unavailable Mouchli, Mohamad A. Attending Unavailable Mouchli, Mohamad A. Attending Unavailable Mouchli, Mohamad A. Referring Unavailable Mouchli, Mohamad A. Admitting Unavailable Mouchli, Mohamad A. Attending Unavailable Mouchli, Mohamad A. Attending Unavailable Morodolfo, Mohamad ARomana Attending Unavailable Kaitlyn Joy Attending Unavailable Kaitlyn Joy Admitting Unavailable Jose Eduardo Ann Attending Unavailable Jose Eduardo Ann Admitting Unavailable Jose Eduardo Ann DO Attending Provider [phone] Kaitlyn Joy MD Attending Provider Roseline Melendrez Attending Unavailable Roseline Melendrez Admitting Unavailable Roseline Melendrez Attending Unavailable Roseline Melendrez Referring Unavailable Kaitlyn Joy MD Primary Care Provider [phone] CADE PENG Attending Unavailable Юлия Starks MD Unavailable Kaitlyn Joy MD Primary Care Provider [phone] QUIQUE THURMAN Attending Unavailabl e PIRKL, CORETTA Referring Unavailable KAITLYN JOY Referring Unavailable HORHARVEY APARICIOAR Admitting Unavailable ROSA MARIA HOOK Attending Unavailable SHANT, HAL T Referring Unavailable SHANT, HAL T Referring Unavailable SHANT, HAL T Referring Unavailable VIJUAN PABLO JIMYA Attending Unavailable ЮЛИЯ STARKS Attending Unavailable KAITLYN JOY Primary Care Unavailable SERENITY SAAVEDRA Referring Unavailabl e KAITLYN JOY Primary Care Unavailable TEREZA, ЮЛИЯ GOUTAM Referring Unavailab le SERENITY SAAVEDRA Attending Unavailabl e Allergies Allergy Classification Reported Allergen(s) Allergy Type Date of Onset Reaction(s) Facility (7 sources) Sulfonamides (Antibiotic) Propensity to adverse reactions (John) 07/08/2011 Nausea/Vomiting/Di arrhea Nausea/Vomiting/Di arrhea [employer] Other (20 sources) Simvastatin; Translations: [simvastatin] Drug Allergy 023 Unknown (qualifier value), Unknown [facility] [place] (15 sources) Sulfamethoxazole / Trimethoprim; Translations: [sulfamethoxazole- trimethoprim] Drug Allergy Influenza-like illness (finding) [facility] (11 sources) Sulfamethoxazole; Translations: [sulfamethoxazole] Drug Allergy Unknown [facility] (1 source) Sulfamethoxazole / Trimethoprim Drug Allergy 017 [facility] (2 sources) Sulfonamides (Antibiotic) Drug allergy (disorder) 017 [facility] (5 sources) Simvastatin Allergy to substance [facility] Work Phone: (7 sources) Sulfonamides (Antibiotic) Drug Intolerance Vomiting [facility] (8 sources) Trimethoprim; Translations: [TRIMETHOPRIM] Drug Allergy Unknown [facility] (5 sources) metFORMIN Drug Allergy Gastrointestinal Upset [facility] (6 sources) Sulfonamides (Antibiotic); Translations: [SULFA (SULFONAMIDE ANTIBIOTICS)] Allergy to substance ([facility]) 07/08/2011 Nausea/Vomiting/Di arrhea Nausea/Vomiting... [facility] Comment on above: Reaction: (John) 07/08/2011 Nausea/Vomiti ng/Diarrhea Nausea/Vomiting/Diarrhea (5 sources) glimeperide Allergy to substance Gastrointestinal Upset [facility] Medications Current Medications Medication Drug Class(es) Dates Sig (Normalized) Sig (Original) [id number] 200 actuat albuterol 0.09 mg/actuat metered dose [...] as directed Active Blood-Glucose Sensor (Freest yle Laine 3 Sensor) device (8 sources) Start: 04-10-2024 [...] 05/03/2023 Active cholecalciferol 0.05 mg oral tablet (9 sources) Vitamin D Start: 09-08-2024 take 1 tablet by mouth once daily cholecalciferol (VITAMIN D3) 50 mcg (2,000 unit) tablet Take 2,000 Units by mouth once daily. 09/08/2024 Active take 1 capsule by mo [facility] every twenty-four hours Vitamin D3 50 [...] 12:00am Start: 08-27-2017 take 1 tablet by [facility] every eight hours as needed KLONOPIN 2 mg tablet Take 2 mg by mouth three times a day as needed for anxiety. 11/23/2018 Active KlonoPIN 2 MG ta blet every 8 (eight) hours. Active cycloSPORINE 0.5 mg/ml ophthalmic suspension (2 sources) Calcineurin Inhibitor Immunosuppressant Start: 08-09-2024 take 1 [...] day(s), # 120 cap(s), Refills(s) 11, [id number], 154, cm, 05/22/22 7:21:00 EST, Height/Length Dosing, [...] day(s), # 90 tab(s), Refills(s) 0, Pharmacy: [facility] #[id number], 154, cm, 06/03/22 14:37:00 EST, Height/Length Dosing, [...] Status: Ordered take 2 tablets by mo [facility] every twenty-four hours Liothyronine Sodium 5 [...] 30 tab(s), Refills(s) 3, [facility]acy: [facility] #[id number], 154, cm, 04/14/22 12:07:00 EDT, Height/Length Dosing, 74, kg, 04/14/22 12:07:00 EDT, Weight Dosing Start Date: 04/14/22 Status: Ordered Start: 04-14-2022 take 1 tablet by coleen th once daily pantoprazole 40 mg Oral EC Tab 40 mg = 1 tab(s), Oral, Daily, # 30 tab(s), Refills(s) 3, Pharmacy: [facility] #[id number], 154, cm, 04/14/22 12:07:00 EDT, Height/Length Dosing, [...] QID, # 120 tab(s), Refills(s) 4, Pharmacy: [facility] #[id number], 158, cm, 06/02/24 9:26:00 EST, Height/Length Dosing, [...] month trial offer voucher Start: 03-08-2024 Tirzepatide (Gerson mcclellanro) 2.5 mg/0.5 mL pen injector Active 2.5 [...] Onset: 2 Resolved: 2 Episodic Allergic reactions (7 sources) Atopic dermatitis; Translations: [Other atopic dermatitis] [...] loss 10-10-2024 Chronic Deficiency and other anemia (2 sources) Hemoglobinopathy; Translations: [Other hemoglobinopathies] Onset: 5 11-08-2024 [...] 2 Resolved: 2 Chronic Diverticulosis and diverticulitis (14 sources) Diverticulitis; Translations: [Diverticula of intestine] Onset: 4 02-07-2020 Chronic Esophageal disorders (20 sources) Gastroesophageal reflux disease; Translations: [Gastroesophageal reflux disease without esophagitis] Onset: 2 02-07-2020 Chronic Esophageal disorders (6 sources) Esophagitis; Translations: [Esophagitis, other specified type] Episodic Essential hypertension (9 sources) Essential hypertension; Translations: [Essential (primary) hypertension] Onset: 2 Resolved: 2 Chronic Gastritis and duodenitis (9 sources) Gastritis; Translations: [Gastritis, unspecified, without bleeding] Onset: 2 Episodic Genitourinary symptoms and ill-defined conditions (13 sources) Genuine stress incontinence; Translations: [Stress incontinence [...] Translations: [Nausea] Onset: 2 Episodic Nutritional deficiencies (12 sources) Vitamin D deficiency; Translations: [Vitamin D [...] Onset: 2 04-29-2023 Chronic Residual codes; unclassified (18 sources) Sleep apnea; Translations: [Sleep apnea, unspecified] [...] Episodic/Chronic Conditions associated with dizziness or vertigo (9 sources) Peripheral vertigo; Translations: [Other peripheral vertigo, [...] vitamins] Onset: 11-09-2024 Episodic Other liver diseases (2 sources) Elevated liver enzymes level; Translations: [Abnormal levels of other serum enzymes] Onset: 11-08-2024 11-08-2024 Episodic Other lower respiratory disease (2 sources) Solitary nodule of lung; Translations: [Solitary pulmonary nodule] Onset: 11-08-2024 11-08-2024 Episodic Other nervous system disorders (1 source) Anosmia; Translations: [ANOSMIA] Onset: 03-18-2022 Episodic Other nervous system disorders (5 sources) Loss of sense of smell; Translations: [Anosmia] Onset: 04-29-2023 04-29-2023 Episodic Other non-epithelial cancer of skin (7 sources) Squamous cell carcinoma of skin of [...] Onset: 06-09-2023 06-09-2023 Episodic Residual codes; unclassified (8 sources) Tobacco user; Translations: [Tobacco use disorder, current] Onset: 11-08-2024 11-08-2024 Episodic Unclassified (4 sources) Family history of cholecystectomy 06-02-2024 Viral infection (6 sources) Herpesviral infection, unspecified; Translations: [Parvovirus infection, unspecified] Onset: 11-23-2024 Episodic Results Test Name Value Interpretation Reference Range Facility [facility] 03-05-2025 CNPN Telephone (HEMAMN) -- ANDREIA THOMAS ([id number]) 1965 F Date Time Provider Department 03/05/25 SERENITY SAAVEDRAAMN During your visit today, we recorded the following information about you: Jaclyn Montes 03/05/2025 9:45 AM Signed Ms. Thomas called asking for lab orders to be faxed to [facility]; she wants to go for labs tomorrow. The fax number is [phone]. Selena Allergies As of Date: 03/05/2025 Noted Allergy Reaction SIMVASTATIN 04/29/2023 16 - Unknown Comments: Other Reaction(s): Unknown SULFA (SULFONAMIDE ANTIBIOTICS) 11/14/2017 11 - Vomiting Comments: Other Reaction(s): Unknown, Vomiting TRIMETHOPRIM 04/29/2023 16 - Unknown Comments: Other Reaction(s): Unknown Date Reviewed: 01/31/2025 Reviewed by: Bridger Mitchell LPN - Fully Assessed Reason for Visit: Patient Question [6927] Prescriptions as of 03/05/2025 - levothyroxine (SYNTHROID) 100 mcg tablet Take 125 mcg by mouth once daily. - liothyronine (CYTOMEL) 5 mcg tablet Take 5 mcg by mouth once daily. - rosuvastatin (CRESTOR) 5 mg tablet Take 5 mg by mouth once daily. - pantoprazole DR (PROTONIX) 40 mg tablet Take 2 tablets by mouth once daily. - RESTASIS 0.05 % ophthalmic emulsion Use 1 drop in both eyes two times a day. - CELEXA 20 mg tablet Take 20 mg by mouth once daily. - KLONOPIN 2 mg tablet Take 2 mg by mouth three times a day as needed for anxiety. - cholecalciferol (VITAMIN D3) 50 mcg (2,000 unit) tablet Take 2,000 Units by mouth once daily. Problem List As Of Date 03/05/2025 Noted Resolved Gastroesophageal reflux disease [K21.9] 04/29/2023 Hypothyroidism [E03.9] 04/29/2023 Pure hypercholesterolemia [E78.00] 04/29/2023 Sleep apnea [G47.30] 04/29/2023 DDD (degenerative disc disease), lumbar [M51.36*04/29/2023 DDD (degenerative disc disease), cervical [M50.*04/29/2023 Squamous cell carcinoma of skin of trunk [C44.5*04/29/2023 Peripheral vertigo [H81.399] 04/29/2023 Other atopic dermatitis [L20.89] 04/29/2023 Vitamin D deficiency [E55.9] 11/08/2024 Vertigo [R42] 11/08/2024 Type 2 diabetes mellitus without complications *11/08/2024 Tobacco user [Z72.0] 11/08/2024 Stress incontinence of urine [N39.3] 11/08/2024 Solitary pulmonary nodule [R91.1] 11/08/2024 Elevated liver enzymes [R74.8] 11/08/2024 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] 11/08/2024 Diabetic neuropathy (HCC) [E11.40] 11/08/2024 Agoraphobia [F40.00] 11/08/2024 Abnormal hemoglobin [D58.2] 11/08/2024 Encounter Status:Closed by JACLYN MONTES on 03/05/25 Normal [facility] SEND OUT TST 1on 2024 Test 1 [facility] Comment on above: Research Test Results 1 [facility] Comment on above: Research [facility] COPPER BLOODon 02-01-2025 Copper [Mass/Vol] 155 ug/dL 80 - 155 ug/dL [facility] Comment on above: This test was develo ped, and its performance characteristics determined by the [facility] Department of Pathology and Laboratory Medicine. It has not been cleared or approved by the FDA. The [facility] Department of Pathology and Laboratory Medicine is regulated under CLIA as qualified to perform high-complexity testing. This test is used for clinical purposes. It should not be regarded as investigational or for research. ERYTHROPOIETIN/EPOon 025 Erythropoietin (EPO) Qn 2.4 [IU]/L Low [facility] Erythropoietin (EPO) Qnon Interpretation and review of laboratory results Abnormal [facility] Test analyzed by the [employer] DxI method. [facility] Lead (Bld) [Mass/Vol]Ordered By: Danielle Mariscal on 02-01-2025 Interpretation and review of laboratory results Normal [facility] Lead (BldV) [Mass/Vol] ug/dL NINF - 3.5 ug/dL [facility] Comment on above: [facility] [...] and its performance characteristics determined by the [facility] Department of Pathology and Laboratory Medicine. It has not been cleared or approved by the FDA. The [facility] Department of Pathology and Laboratory Medicine is regulated under CLIA as qualified to perform high-complexity testing. This test is used for clinical purposes. It should not be regarded as investigational or for research. [facility] No Panel Informationon 02-01 Interpretation and review of laboratory results Normal [facility] ZINC BLDOrdered By: Eulalia Shukla on 02-01-2025 Zinc [Mass/Vol] 77 ug/dL 60 - 120 ug/dL [facility] Comment on above: This test was develo ped, and its performance characteristics determined by the [facility] Department of Pathology and Laboratory Medicine. It has not been cleared or approved by the FDA. The [facility] Department of Pathology and Laboratory Medicine is regulated under CLIA as qualified to perform high-complexity testing. This test is used for clinical purposes. It should not be regarded as investigational or for research. CBC W Auto Differential pane l (Bld)on 01-31-2025 Basophils (Bld) [#/Vol] 0.08 10*3/uL Normal <0.11 [place] Comment on above: Order Comment: Speci men Type: BLOOD SPECIMEN Ordering Facility: [facility] Address: [address] [place] [address] Performed By: #### 5 7021-8, IPFR #### [facility] [id number] [address] [place] [address] [place] #### [id number], [id number], STFREV #### [facility] [place] [id number] [address] [place] [address] [place] Basophils/100 WBC (Bld) 0.8 % Normal [place] Comment on above: Order Comment: Speci men Type: BLOOD SPECIMEN Ordering Facility: [facility] Address: [address] [place] [address] Performed By: #### 5 7021-8, IPFR #### [facility] [id number] [address] [place] [address] [place] #### [id number], [id number], STFREV #### [facility] CLIA [id number] [address] [place] [address] [place] Differential cell count method Nom (Bld) Auto Normal [place] Comment on above: Order Comment: Speci men Type: BLOOD SPECIMEN Ordering Facility: [facility] Address: [address] [place] [address] Performed By: #### 5 7021-8, IPFR #### [facility] [place] [id number] [address] [place] [address] [place] #### [id number], [id number], STFREV #### [facility] CLIA [id number] [address] [place] [address] [place] Eosinophils (Bld) [#/Vol] 0.13 10*3/uL Normal <0.46 [place] Comment on above: Order Comment: Speci men Type: BLOOD SPECIMEN Ordering Facility: [facility] Address: [address] [place] [address] Performed By: #### 5 7021-8, IPFR #### [facility] [place] [id number] [address] [place] [address] [place] #### [id number], [id number], STFREV #### [facility] CLIA [id number] [address] [place] [address] [place] Eosinophils/100 WBC (Bld) 1.3 % Normal [place] Comment on above: Order Comment: Speci men Type: BLOOD SPECIMEN Ordering Facility: [facility] Address: [address] [place] [address] Performed By: #### 5 7021-8, IPFR #### [facility] [place] [id number] [address] [place] [address] [place] #### [id number], [id number], STFREV #### [facility] CLIA [id number] [address] [place] [address] [place] Erythrocyte distribution width (RBC) [Ratio] 12.7 % Normal 11.5-15.0 [place] Comment on above: Order Comment: Speci men Type: BLOOD SPECIMEN Ordering Facility: [facility] Address: [address] [place] [address] Performed By: #### 5 7021-8, IPFR #### [facility] CLIA [id number] [address] [place] [address] [place] #### [id number], [id number], STFREV #### [facility] CLIA [id number] [address] [place] [address] [place] Hematocrit (Bld) [Volume fraction] 53.4 % High 36.0-46.0 [place] Comment on above: Order Comment: Speci men Type: BLOOD SPECIMEN Ordering Facility: [facility] Address: [address] [place] [address] Performed By: #### 5 7021-8, IPFR #### [facility] [id number] [address] [place] [address] [place] #### [id number], [id number], STFREV #### [facility] CLIA [id number] [address] [place] [address] [place] Hemoglobin (Bld) [Mass/Vol] 17.4 g/dL High 11.5-15.5 [place] Comment on above: Order Comment: Speci men Type: BLOOD SPECIMEN Ordering Facility: [facility] Address: [address] [place] [address] Performed By: #### 5 7021-8, IPFR #### [facility] [id number] [address] [place] [address] [place] #### [id number], [id number], STFREV #### [facility] CLIA [id number] [address] [place] [address] [place] Immature granulocytes (Bld) [#/Vol] 0.05 10*3/uL Normal <0.10 [place] Comment on above: Order Comment: Speci men Type: BLOOD SPECIMEN Ordering Facility: [facility] Address: [address] [place] [address] Performed By: #### 5 7021-8, IPFR #### [facility] [place] [id number] [address] [place] [address] [place] #### [id number], [id number], STFREV #### [facility] CLIA [id number] [address] [place] [address] [place] Immature granulocytes/100 WBC (Bld) 0.5 % Normal [place] Comment on above: Order Comment: Speci men Type: BLOOD SPECIMEN Ordering Facility: [facility] Address: [address] [place] [address] Performed By: #### 5 7021-8, IPFR #### [facility] [place] [id number] [address] [place] [address] [place] #### [id number], [id number], STFREV #### [facility] CLIA [id number] [address] [place] [address] [place] Lymphocytes (Bld) [#/Vol] 2.12 10*3/uL Normal 1.00-4.00 [place] Comment on above: Order Comment: Speci men Type: BLOOD SPECIMEN Ordering Facility: [facility] Address: [address] [place] [address] Performed By: #### 5 7021-8, IPFR #### [facility] [place] [id number] [address] [place] [address] [place] #### [id number], [id number], STFREV #### [facility] CLIA [id number] [address] [place] [address] [place] Lymphocytes/100 WBC (Bld) 20.6 % Normal [place] Comment on above: Order Comment: Speci men Type: BLOOD SPECIMEN Ordering Facility: [facility] Address: [address] [place] [address] Performed By: #### 5 7021-8, IPFR #### [facility] CLIA [id number] [address] [place] [address] [place] #### [id number], [id number], STFREV #### [facility] [place] [id number] [address] [place] [address] [place] MCH (RBC) [Entitic mass] 27.5 pg Normal 26.0-34.0 [place] Comment on above: Order Comment: Speci men Type: BLOOD SPECIMEN Ordering Facility: [facility] Address: [address] [place] [address] Performed By: #### 5 7021-8, IPFR #### [facility] [place] [id number] [address] [place] [address] [place] #### [id number], [id number], STFREV #### [facility] [place] [id number] [address] [place] [address] [place] MCHC (RBC) [Mass/Vol] 32.6 g/dL Normal 30.5-36.0 [place] Comment on above: Order Comment: Speci men Type: BLOOD SPECIMEN Ordering Facility: [facility] Address: [address] [place] [address] Performed By: #### 5 7021-8, IPFR #### [facility] [place] [id number] [address] [place] [address] [place] #### [id number], [id number], STFREV #### [facility] CLIA [id number] [address] [place] [address] [place] MCV (RBC) [Entitic vol] 84.4 fL Normal 80.0-100.0 [place] Comment on above: Order Comment: Speci men Type: BLOOD SPECIMEN Ordering Facility: [facility] Address: [address] [place] [address] Performed By: #### 5 7021-8, IPFR #### [facility] [place] [id number] [address] [place] [address] [place] #### [id number], [id number], STFREV #### [facility] CLIA [id number] [address] [place] [address] [place] Monocytes (Bld) [#/Vol] 0.82 10*3/uL Normal <0.87 [place] Comment on above: Order Comment: Speci men Type: BLOOD SPECIMEN Ordering Facility: [facility] Address: [address] [place] [address] Performed By: #### 5 7021-8, IPFR #### [facility] [place] [id number] [address] [place] [address] [place] #### [id number], [id number], STFREV #### [facility] [place] [id number] [address] [place] [address] [place] Monocytes/100 WBC (Bld) 8.0 % Normal [place] Comment on above: Order Comment: Speci men Type: BLOOD SPECIMEN Ordering Facility: [facility] Address: [address] [place] [address] Performed By: #### 5 7021-8, IPFR #### [facility] [id number] [address] [place] [address] [place] #### [id number], [id number], STFREV #### [facility] CLIA [id number] [address] [place] [address] [place] Neutrophils (Bld) [#/Vol] 7.08 10*3/uL Normal 1.45-7.50 [place] Comment on above: Order Comment: Speci men Type: BLOOD SPECIMEN Ordering Facility: [facility] Address: [address] [place] [address] Performed By: #### 5 7021-8, IPFR #### [facility] CLIA [id number] [address] [place] [address] [place] #### [id number], [id number], STFREV #### [facility] CLIA [id number] [address] [place] [address] [place] Neutrophils/100 WBC (Bld) 68.8 % Normal [place] Comment on above: Order Comment: Speci men Type: BLOOD SPECIMEN Ordering Facility: [facility] Address: [address] [place] [address] Performed By: #### 5 7021-8, IPFR #### [facility] [place] [id number] [address] [place] [address] [place] #### [id number], [id number], STFREV #### [facility] CLIA [id number] [address] [place] [address] [place] Nucleated RBC (Bld) [#/Vol] 10*3/uL Normal <0.01 [place] Comment on above: Order Comment: Speci men Type: BLOOD SPECIMEN Ordering Facility: [facility] Address: [address] [place] [address] Performed By: #### 5 7021-8, IPFR #### [facility] [id number] [address] [place] [address] [place] #### [id number], [id number], STFREV #### [facility] CLIA [id number] [address] [place] [address] [place] Nucleated RBC/100 WBC (Bld) [Ratio] 0.0 /100 WBC Normal [place] Comment on above: Order Comment: Speci men Type: BLOOD SPECIMEN Ordering Facility: [facility] Address: [address] [place] [address] Performed By: #### 5 7021-8, IPFR #### [facility] CLIA [id number] [address] [place] [address] [place] #### [id number], [id number], STFREV #### [facility] CLIA [id number] [address] [place] [address] [place] Platelet mean volume (Bld) [Entitic vol] 10.0 fL Normal 9.0-12.7 [place] Comment on above: Order Comment: Speci men Type: BLOOD SPECIMEN Ordering Facility: [facility] Address: [address] [place] [address] Performed By: #### 5 7021-8, IPFR #### [facility] [place] [id number] [address] [place] [address] [place] #### [id number], [id number], STFREV #### [facility] CLIA [id number] [address] [place] [address] [place] Platelets (Bld) [#/Vol] 259 10*3/uL Normal 150-400 [place] Comment on above: Order Comment: Speci men Type: BLOOD SPECIMEN Ordering Facility: [facility] Address: [address] [place] [address] Performed By: #### 5 7021-8, IPFR #### [facility] [place] [id number] [address] [place] [address] [place] #### [id number], [id number], STFREV #### [facility] CLIA [id number] [address] [place] [address] [place] RBC (Bld) [#/Vol] 6.33 10*6/uL High 3.90-5.[address] [facility] Comment on above: Order Comment: Speci men Type: BLOOD SPECIMEN Ordering Facility: [facility] Address: [address] [place] [address] Performed By: #### 5 7021-8, IPFR #### [facility] [id number] [address] [place] [address] [place] #### [id number], [id number], STFREV #### [facility] [place] [id number] [address] [place] [address] [place] WBC (Bld) [#/Vol] 10.28 10*3/uL Normal 3.70-11.00 [facility] Comment on above: Order Comment: Speci men Type: BLOOD SPECIMEN Ordering Facility: [facility] Address: [address] [place] [address] Result Comment: Resu lts checked and verified.No clot detected. Performed By: #### 5 7021-8, IPFR #### [facility] [id number] [address] [place] [address] [place] #### [id number], [id number], STFREV #### [facility] [place] [id number] [address] [place] [address] [place] CNOVSPon 01-31-2025 CNOVSP Visit (SP) Office (H EMANM) -- ANDREIA THOMAS ([id number]) 1965 F Date Time Provider Department 01/31/25 12:30 PM SERENITY SAAVEDRA During your visit today, we recorded the following information about you: Temperature Pulse Respiration Blood pressure 98 degrees 85/minute 15/minute 146/95 Weight Height 65 kg 1.56 m Angi Haley MD 02/08/2025 1:11 PM Signed [facility] DEPARTMENT OF HEMATOLOGY AND MEDICAL ONCOLOGY [facility] NEW CONSULT STAFF PHYSICIAN: Dr. Serenity Saavedra MD, PhD Patient Name: Andreia Thomas DATE of SERVICE: February 01, 2025 Primary Care Physician: Kaitlyn Joy MD Reason for visit: pancytopenia r/o aplastic anemia History of Present Illness: Andreia Thomas is a 59 year old female with a PMHx of T2DM, hypothyroidism, presenting from [facility] after presenting with pancytopenia. 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 Karyotype: 46,XX[20]. Interval History: Patient, accompanied by her , presents to [facility]. She states that she feels well [...] PLT 259 (more content not included)... Normal [place] COPPER BLOODon 01-31-2025 Copper [Mass/Vol] 155 ug/dL Normal 80-155 [facility] Comment on above: Order Comment: Speci men Type: BLOOD SPECIMEN Ordering Facility: [facility] Address: [address] [place] [address] Result Comment: This test was developed, and its performance characteristics determined by the [facility] Department of Pathology and Laboratory Medicine. It has not been cleared or approved by the FDA. The [facility] Department of Pathology and Laboratory Medicine is regulated under CLIA as qualified to perform high-complexity testing. This test is used for clinical purposes. It should not be regarded as investigational or for research. Performed By: #### L [id number], IFESC #### [facility] CLIA [id number] [address] [place] [address] [place] Comprehensive metabolic 2000 panelon 01-31-2025 Albumin [Mass/Vol] 4.6 g/dL 3.9 - 4.9 g/dL [facility] ALP [Catalytic activity/Vol] 271 U/L High 34 - 123 U/L [facility] ALT [Catalytic activity/Vol] 46 U/L High 7 - 38 U/L [facility] Anion gap [Moles/Vol] 12 mmol/L 8 - 15 mmol/L [facility] AST [Catalytic activity/Vol] 26 U/L 13 - 35 U/L [facility] Bilirubin [Mass/Vol] 0.3 mg/dL 0.2 - 1.3 mg/dL [facility] Calcium [Mass/Vol] 10.1 mg/dL 8.5 - 10. 2 mg/dL [facility] Chloride [Moles/Vol] 101 mmol/L 98 - 107 mmol/L [facility] CO2 [Moles/Vol] 28 mmol/L 22 - 30 mmol/L [facility] Creatinine [Mass/Vol] 0.60 mg/dL 0.58 - 0.96 mg/dL [facility] GFR/1.73 sq M.predicted among non-blacks MDRD (S/P/Bld) [Vol rate/Area] 102 mL/min/{1.73_m2} - PINF [facility] Comment on above: Estimated Glomerular Filtration Rate [...] 119 mg/dL High 74 - 99 mg/dL [facility] Comment on above: The [place] Diab[employer] Association (ADA) provides guidance for [...] Standards of Medical Care in Diabetes 2016, [place] Diabetes Association. Diabetes Care. 2016.39(Suppl 1). Interpretation and review of laboratory results Abnormal [facility] Potassium [Moles/Vol] 5.1 mmol/L 3.7 - 5.1 mmol/L [facility] Protein [Mass/Vol] 8.2 g/dL High 6.3 - 8.0 g/dL [facility] Sodium [Moles/Vol] 141 mmol/L 136 - 144 mmol/L [facility] Urea nitrogen [Mass/Vol] 12 mg/dL 7 - 21 mg/dL [facility] Albumin [Mass/Vol] 4.6 g/dL Normal 3.9-4.9 [facility] Comment on above: Order Comment: Speci men Type: BLOOD SPECIMEN Ordering Facility: [facility] Address: [address] [place] [address] Performed By: #### 2 4323-8 #### [facility] CLIA [id number] [address] [place] [address] [place] ALP [Catalytic activity/Vol] 271 U/L High 34-123 [place] Comment on above: Order Comment: Speci men Type: BLOOD SPECIMEN Ordering Facility: [facility] Address: [address] [place] [address] Performed By: #### 2 4323-8 #### [facility] CLIA [id number] [address] [place] [address] [place] ALT [Catalytic activity/Vol] 46 U/L High 7-38 [place] Comment on above: Order Comment: Speci men Type: BLOOD SPECIMEN Ordering Facility: [facility] Address: [address] [place] [address] Performed By: #### 2 4323-8 #### [facility] [place] [id number] [address] [place] [address] [place] Anion gap [Moles/Vol] 12 mmol/L Normal 8-15 [place] Comment on above: Order Comment: Speci men Type: BLOOD SPECIMEN Ordering Facility: [facility] Address: [address] [place] [address] Performed By: #### 2 4323-8 #### [facility] IA [id number] [address] [place] [address] [place] AST [Catalytic activity/Vol] 26 U/L Normal 13-35 [place] Comment on above: Order Comment: Speci men Type: BLOOD SPECIMEN Ordering Facility: [facility] Address: [address] [place] [address] Performed By: #### 2 4323-8 #### [facility] IA [id number] [address] [place] [address] [place] Bilirubin [Mass/Vol] 0.3 mg/dL Normal 0.2-1.3 [place] Comment on above: Order Comment: Speci men Type: BLOOD SPECIMEN Ordering Facility: [facility] Address: [address] [place] [address] Performed By: #### 2 4323-8 #### [facility] [id number] [address] [place] [address] [place] Calcium [Mass/Vol] 10.1 mg/dL Normal 8.5-10.2 [facility] Comment on above: Order Comment: Speci men Type: BLOOD SPECIMEN Ordering Facility: [facility] Address: [address] [place] [address] Performed By: #### 2 4323-8 #### [facility] IA [id number] [address] [place] [address] [place] Chloride [Moles/Vol] 101 mmol/L Normal 98-107 [place] Comment on above: Order Comment: Speci men Type: BLOOD SPECIMEN Ordering Facility: [facility] Address: [address] [place] [address] Performed By: #### 2 4323-8 #### [facility] [id number] [address] [place] [address] [place] CO2 [Moles/Vol] 28 mmol/L Normal 22-30 [place] Comment on above: Order Comment: Speci men Type: BLOOD SPECIMEN Ordering Facility: [facility] Address: [address] [place] [address] Performed By: #### 2 4323-8 #### [facility] [id number] [address] [place] [address] [place] Creatinine [Mass/Vol] 0.60 mg/dL Normal 0.58-0.96 [place] Comment on above: Order Comment: Speci men Type: BLOOD SPECIMEN Ordering Facility: [facility] Address: [address] [place] [address] Performed By: #### 2 4323-8 #### [facility] CLIA [id number] [address] [place] [address] [place] eGFRcr SerPlBld CKD-EPI 2020 102 mL/min/1.73m??? Normal >=60 [place] Comment on above: Order Comment: Specwilliam juarez Type: BLOOD SPECIMEN Ordering Facility: [facility] Address: [address] [place] [address] Result Comment: Talita mated Glomerular Filtration Rate [...] #### 2 4323-8 #### [facility] IA [id number] [address] [place] [address] [place] Glucose [Mass/Vol] 119 mg/dL High 74-99 [facility] Comment on above: Order Comment: Gris juarez Type: BLOOD SPECIMEN Ordering Facility: [facility] Address: [address] [place] [address] Result Comment: The [place] Diabetes Association (ADA) provides guidance for cutoff [...] Standards of Medical Care in Diabetes 2016, [place] Diabetes Association. Diabetes Care. 2016.39(Suppl 1). Performed By: #### 2 4323-8 #### [facility] IA [id number] [address] [place] [address] [place] Potassium [Moles/Vol] 5.1 mmol/L Normal 3.7-5.1 [place] Comment on above: Order Comment: Speci men Type: BLOOD SPECIMEN Ordering Facility: [facility] Address: [address] [place] [address] Performed By: #### 2 4323-8 #### [facility] [id number] [address] [place] [address] [place] Protein [Mass/Vol] 8.2 g/dL High 6.3-8.0 [facility] Comment on above: Order Comment: Speci men Type: BLOOD SPECIMEN Ordering Facility: [facility] Address: [address] [place] [address] Performed By: #### 2 4323-8 #### [facility] [id number] [address] [place] [address] [place] Sodium [Moles/Vol] 141 mmol/L Normal 136-144 [facility] Comment on above: Order Comment: Speci men Type: BLOOD SPECIMEN Ordering Facility: [facility] Address: [address] [place] [address] Performed By: #### 2 4323-8 #### [facility] [id number] [address] [place] [address] [place] Urea nitrogen [Mass/Vol] 12 mg/dL Normal 7-21 [place] Comment on above: Order Comment: Speci men Type: BLOOD SPECIMEN Ordering Facility: [facility] Address: [address] [place] [address] Performed By: #### 2 4323-8 #### [facility] [id number] [address] [place] [address] [place] EPO SerPl-aCncon 01-31-2025 Erythropoietin (EPO) Qn 2.4 mIU/mL Low 2.6-18.5 [place] Comment on above: Order Comment: Speci men Type: BLOOD SPECIMEN Ordering Facility: [facility] Address: [address] [place] [address] Performed By: #### L [id number], IFESC #### [facility] CLIA [id number] [address] [place] [address] [place] HAPTOGLOBINon 01-31-2025 Haptoglobin [Mass/Vol] 204 mg/dL 31 - 238 mg/dL [facility] Haptoglob SerPl-mCncon 01-31 Haptoglobin [Mass/Vol] 204 mg/dL Normal 31-238 [place] Comment on above: Order Comment: Gris juarez Type: BLOOD SPECIMEN Ordering Facility: [facility] Address: [address] [place] [address] Performed By: #### 4 542-7, 2885-2 #### [facility] CLIA [id number] [address] [place] [address] [place] Haptoglobin [Mass/Vol]on Interpretation and review of laboratory results Normal [facility] IMMATURE PLATELET FRACTIONon 01-31-2025 Interpretation and review of laboratory results Normal [facility] Platelets reticulated/100 platelets Auto (Bld) 4.4 % 0.9 - 7.2 % [facility] Platelets reticulated/100 platelets Auto (Bld) 4.4 % Normal 0.9-7.2 [place] Comment on above: Order Comment: Gris juarez Type: BLOOD SPECIMEN Ordering Facility: [facility] Address: [address] [place] [address] Performed By: #### 5 7021-8, IPFR #### [facility] CLIA [id number] [address] [place] [address] [place] #### [id number], [id number], STFREV #### [facility] CLIA [id number] [address] [place] [address] [place] IMMUNOFIXATION SCREEN, SERUM on 01-31-2025 [...] monoclonal gammopathy. Clinical correlation is necessary. Normal [place] Comment on above: Order Comment: Gris juarez Type: BLOOD SPECIMEN Ordering Facility: [facility] Address: [address] [place] [address] Performed By: #### L [id number], IFESC #### [facility] CLIA [id number] [address] [place] [address] [place] MPA RESULT A poorly defined reg ion of restricted mobility is present that may represent an M protein. Abnormal No M protein is identified. [place] Comment on above: Order Comment: Gris juarez Type: BLOOD SPECIMEN Ordering Facility: [facility] Address: [address] [place] [address] Performed By: #### L [id number], IFESC #### [facility] CLIA [id number] [address] [place] [address] [facility] [place] STAFF REVIEW (MPA) Reviewed by Dr. Sal Rai MD Normal [place] Comment on above: Order Comment: Gris juarez Type: BLOOD SPECIMEN Ordering Facility: [facility] Address: [address] [place] [address] Performed By: #### L [id number], IFESC #### [facility] CLIA [id number] [address] [place] [address] [place] IMMUNOGLOBULINS,IGG,IGA,IGMo n 01-31-2025 IgA [Mass/Vol] 218 mg/dL 70 - 400 mg/dL [facility] IgG [Mass/Vol] 978 mg/dL 700 - 1600 mg/dL [facility] IgM [Mass/Vol] 302 mg/dL High 40 - 230 mg/dL [facility] Interpretation and review of laboratory results Abnormal [facility] IgA [Mass/Vol] 218 mg/dL Normal 70-400 [place] Comment on above: Order Comment: Speci men Type: BLOOD SPECIMEN Ordering Facility: [facility] Address: [address] [place] [address] Performed By: #### S ERIMM #### [facility] CLIA [id number] [address] [place] [address] [place] IgG [Mass/Vol] 978 mg/dL Normal 700-1600 [place] Comment on above: Order Comment: Speci men Type: BLOOD SPECIMEN Ordering Facility: [facility] Address: [address] [place] [address] Performed By: #### S ERIMM #### [facility] CLIA [id number] [address] [place] [address] [place] IgM [Mass/Vol] 302 mg/dL High 40-230 [place] Comment on above: Order Comment: Speci men Type: BLOOD SPECIMEN Ordering Facility: [facility] Address: [address] [place] [address] Performed By: #### S ERIMM #### [facility] CLIA [id number] [address] [place] [address] [place] LACTATE DEHYDROGENASEon 08-0 LDH [Catalytic activity/Vol] 218 U/L High 135 - 214 U/L [facility] LARGE GRANULAR LYMPH COUNTon 01-31-2025 ABSOLUTE LGL 0.15 k/uL Normal [place] Comment on above: Order Comment: Speci men Type: BLOOD SPECIMEN Ordering Facility: [facility] Address: [address] [place] [address] Performed By: #### 5 7021-8, IPFR #### [facility] CLIA [id number] [address] [place] [address] [place] #### [id number], [id number], STFREV #### [facility] CLIA [id number] [address] [place] [address] [place] PERCENT LGL 7.0 % of Lymphocytes Normal [facility] Comment on above: Order Comment: Speci men Type: BLOOD SPECIMEN Ordering Facility: [facility] Address: [address] [place] [address] Performed By: #### 5 7021-8, IPFR #### [facility] CLIA [id number] [address] [place] [address] [place] #### [id number], [id number], STFREV #### [facility] CLIA [id number] [address] [place] [address] [place] LDH SerPl-cCncon 01-31-2025 LDH [Catalytic activity/Vol] 218 U/L High 135-214 [place] Comment on above: Order Comment: Speci men Type: BLOOD SPECIMEN Ordering Facility: [facility] Address: [address] [place] [address] Performed By: #### 2 4323-8 #### [facility] [place] [id number] [address] [place] [address] [place] LDH [Catalytic activity/Vol] on 01-31-2025 Interpretation and review of laboratory results Abnormal [facility] Lead (Bld) [Mass/Vol]on Lead (BldV) [Mass/Vol] <1.0 Normal <3.5 [place] Comment on above: Order Comment: Gris juarez Type: BLOOD SPECIMEN Ordering Facility: [facility] Address: [address] [place] [address] Result Comment: The Centers for Disease Control and Prevention (CDC) recommends a blood lead reference value of less than 3.5 ???g/dL (Update of the Blood Lead Reference Value - [place], 2020). The CDC's updated Recommended Actions Based on Blood Lead Level can be accessed at www.cdc.gov. Consult your [facility] Department of Health and/or applicable regulatory agencies for specific guidance on testing follow up and patient management. This test was developed, and its performance characteristics determined by the [facility] Department of Pathology and Laboratory Medicine. It has not been cleared or approved by the FDA. The [facility] Department of Pathology and Laboratory Medicine is regulated under CLIA as qualified to perform high-complexity testing. This test is used for clinical purposes. It should not be regarded as investigational or for research. Performed By: #### 2 4323-8 #### [facility] CLIA [id number] [address] [place] [address] [place] MISC SEND OUT TST 2024 MISC SCAN TEST RESULTS 1 Normal [place] Comment on above: Order Comment: Speci men Type: BLOOD SPECIMEN Ordering Facility: [facility] Address: [address] [place] [address] Result Comment: Rese arch REFERRAL LAB 1 (DROP-DOWN) Normal [place] Comment on above: Order Comment: Speci men Type: BLOOD SPECIMEN Ordering Facility: [facility] Address: [address] [place] [address] Result Comment: Rese arch TEST 1 Normal [place] Comment on above: Order Comment: Speci men Type: BLOOD SPECIMEN Ordering Facility: [facility] Address: [address] [place] [address] Result Comment: Rese arch PATHOLOGIST INTERPRETATION C BC/DIFFon 01-31-2025 Operating Engineer Apprentice review Nba (Unsp spec) [Interp] Reviewed by Aysha Moseley M.D. Normal [place] Comment on above: Order Comment: Speci men Type: BLOOD SPECIMEN Ordering Facility: [facility] Address: [address] [place] [address] Performed By: #### 5 7021-8, IPFR #### [facility] CLIA [id number] [address] [place] [address] [place] #### [id number], [id number], STFREV #### [facility] CLIA [id number] [address] [place] [address] [place] STAFF REVIEW, CBCDIF Elevated hemoglobin Normal [place] Comment on above: Order Comment: Speci men Type: BLOOD SPECIMEN Ordering Facility: [facility] Address: [address] [place] [address] Performed By: #### 5 7021-8, IPFR #### [facility] CLIA [id number] [address] [place] [address] [place] #### [id number], [id number], STFREV #### [facility] CLIA [id number] [address] [place] [address] [place] PROTEIN ELECTROPHORESIS SERU M WITH EFFIE (P)on 01-31-2025 Albumin [Mass/Vol] 4.64 g/dL Normal 3.43-5.41 [facility] Comment on above: Order Comment: Speci men Type: BLOOD SPECIMEN Ordering Facility: [facility] Address: [address] [place] [address] Performed By: #### L [id number], IFESC #### [facility] CLIA [id number] [address] [place] [address] [place] Alpha 1 globulin Elph [Mass/Vol] 0.36 g/dL Normal 0.18-0.43 [place] Comment on above: Order Comment: Speci men Type: BLOOD SPECIMEN Ordering Facility: [facility] Address: [address] [place] [address] Performed By: #### L [id number], IFESC #### [facility] CLIA [id number] [address] [place] [address] [place] Alpha 2 globulin Elph [Mass/Vol] 0.81 g/dL Normal 0.42-0.98 [place] Comment on above: Order Comment: Speci men Type: BLOOD SPECIMEN Ordering Facility: [facility] Address: [address] [place] [address] Performed By: #### L [id number], IFESC #### [facility] CLIA [id number] [address] [place] [address] [place] Beta globulin Elph [Mass/Vol] 0.93 g/dL Normal 0.61-1.17 [place] Comment on above: Order Comment: Speci men Type: BLOOD SPECIMEN Ordering Facility: [facility] Address: [address] [place] [address] Performed By: #### L [id number], IFESC #### [facility] CLIA [id number] [address] [place] [address] [place] COMMENT (SERUM PROT ELECTRO) A reflex test for Monoclonal Protein analysis (immunofixation) has been ordered. Normal [place] Comment on above: Order Comment: Speci men Type: BLOOD SPECIMEN Ordering Facility: [facility] Address: [address] [place] [address] Performed By: #### L [id number], IFESC #### [facility] CLIA [id number] [address] [place] [address] [place] Gamma globulin Elph [Mass/Vol] 1.07 g/dL Normal 0.53-1.51 [place] Comment on above: Order Comment: Felixi men Type: BLOOD SPECIMEN Ordering Facility: [facility] Address: [address] [place] [address] Performed By: #### L [id number], IFESC #### [facility] CLIA [id number] [address] [place] [address] [place] INTERPRETATION COMMENT FOR PROTEIN ELECTROPHORESIS The atypical region is relatively poorly defined and may represent an unusual presentation of polyclonal immunoglobulins, but cannot rule out the presence of a low level M protein. If clinically indicated, monoclonal protein analysis and serum free light chain analysis are suggested to evaluate further for monoclonal gammopathy. Normal [place] Comment on above: Order Comment: Gris juarez Type: BLOOD SPECIMEN Ordering Facility: [facility] Address: [address] [place] [address] Performed By: #### L [id number], IFESC #### [facility] CLIA [id number] [address] [place] [address] [place] M-PROTEIN LOCATION Normal [facility] Comment on above: Order Comment: Speci men Type: BLOOD SPECIMEN Ordering Facility: [facility] Address: [address] [place] [address] Result Comment: Not Applicable. Performed By: #### L [id number], IFESC #### [facility] CLIA [id number] [address] [place] [address] [place] Protein Fractions [Interp] An atypical region of restricted mobility is identified on protein electrophoresis. Abnormal No definitive M protein is identified on protein electrophore sis. [place] Comment on above: Order Comment: Speci men Type: BLOOD SPECIMEN Ordering Facility: [facility] Address: [address] [place] [address] Performed By: #### L [id number], IFESC #### [facility] CLIA [id number] [address] [place] [address] [place] Protein.monoclonal Elph [Mass/Vol] 0.00 g/dL Normal <=0.00 [place] Comment on above: Order Comment: Speci men Type: BLOOD SPECIMEN Ordering Facility: [facility] Address: [address] [place] [address] Performed By: #### L [id number], IFESC #### [facility] CLIA [id number] [address] [place] [address] [place] SPE STAFF REVIEW Reviewed by Dr. Sal Rai MD Normal [place] Comment on above: Order Comment: Speci men Type: BLOOD SPECIMEN Ordering Facility: [facility] Address: [address] [place] [address] Performed By: #### L [id number], IFESC #### [facility] CLIA [id number] [address] [place] [address] [place] Prot SerPl-mCncon 01-31-2025 Protein [Mass/Vol] 7.8 g/dL Normal 6.3-8.0 [facility] Comment on above: Order Comment: Speci men Type: BLOOD SPECIMEN Ordering Facility: [facility] Address: [address] [place] [address] Performed By: #### 2 4323-8 #### [facility] [place] [id number] [address] [place] [address] [place] RBC MORPHOLOGYon 01-31-2025 Platelets Estimate (Bld) [#/Vol] Adequate Normal [place] Comment on above: Order Comment: Speci men Type: BLOOD SPECIMEN Ordering Facility: [facility] Address: [address] [place] [address] Performed By: #### 5 7021-8, IPFR #### [facility] [place] [id number] [address] [place] [address] [place] #### [id number], [id number], STFREV #### [facility] CLIA [id number] [address] [place] [address] [place] RBC morphology finding Nom (Bld) Reviewed: unremarkable Normal [facility] Comment on above: Order Comment: Speci men Type: BLOOD SPECIMEN Ordering Facility: [facility] Address: [address] [place] [address] Performed By: #### 5 7021-8, IPFR #### [facility] [place] [id number] [address] [place] [address] [place] #### [id number], [id number], STFREV #### [facility] CLIA [id number] [address] [place] [address] [place] Zinc SerPl-mCncon 01-31-2025 Zinc [Mass/Vol] 77 ug/dL Normal 60-120 [place] Comment on above: Order Comment: Speci men Type: BLOOD SPECIMEN Ordering Facility: [facility] Address: [address] [place] [address] Result Comment: This test was developed, and its performance characteristics determined by the [facility] Department of Pathology and Laboratory Medicine. It has not been cleared or approved by the FDA. The [facility] Department of Pathology and Laboratory Medicine is regulated under CLIA as qualified to perform high-complexity testing. This test is used for clinical purposes. It should not be regarded as investigational or for research. Performed By: #### 2 4323-8 #### [facility] [place] [id number] [address] [place] [address] [place] OUTSIDE BONE MARROW SLIDE RE VIEWon 01-26-2025 AP DISCLAIMER Normal [place] Comment on above: Order Comment: Speci men Type: BLOOD SPECIMEN Ordering Facility: [facility] Address: [address] [place] [address] Result Comment: Freddy Hicks Test (LDT) Disclaimer: Performance characteristics of immunohistochemical, immunofluorescent, and chromogenic in-situ hybridization tests have been determined by the performing laboratory within [facility]'s [facility] Pathology and Laboratory Medicine Department ([facility], [facility], [facility], [facility], [facility], [facility], or [facility]) in a manner consistent with CLIA requirements. One or more of these tests may not have been cleared or approved by the FDA. [facility] is regulated under CLIA as qualified to perform high-complexity testing. These tests are used for clinical purposes. These should not be regarded as investigational or for research. Positive and negative controls stain appropriately. Performed By: #### 2 4323-8 #### [facility] [place] [id number] [address] [place] [address] [place] CASE REPORT Normal [place] Comment on above: Order Comment: Speci men Type: BLOOD SPECIMEN Ordering Facility: [facility] Address: [address] [place] [address] Result Comment: Bone Marrow Pathology Report Case: [id number] Authorizing Provider: Serenity Saavedra MD, Collected: 01/26/2025 11:03 AM PhD Ordering Location: [facility] Received: 01/26/2025 11:02 AM [facility] Pathologist: Luis Enrique Andrea MD Specimen: Slide(s), 13 SLIDES [id number] / [id number] Performed By: #### 2 4323-8 #### [facility] [place] [id number] [address] [place] [address] DIAGNOSIS COMMENT Normal [facility] Comment on above: Order Comment: Speci men Type: BLOOD SPECIMEN Ordering Facility: [facility] Address: [address] [place] [address] Result Comment: This 59-year-old female presented to an outside institution with pancytopenia and a history of vitamin B12 deficiency. The patient underwent a bone marrow study which was submitted to the [facility] for review. The bone marrow is [...] (CCUS). Both the WHO 5th Edition and [facility] 2021 suggest a minimum VAF threshold of >2% for a diagnosis of CCUS as a component of diagnosis. Correlation with the clinical findings is suggested. Performed By: #### 2 4323-8 #### [facility] [id number] [address] [place] [address] [place] FINAL DIAGNOSIS Normal [place] Comment on above: Order Comment: Speci men Type: BLOOD SPECIMEN Ordering Facility: [facility] Address: [address] [place] [address] Result Comment: Rena dela cruz [facility], [place] [address]. [id number], 11/10/2024: Bone marrow, aspirate, core biopsy, and clot section: - Hypercellular bone marrow with prominent eythroid hyperplasia and occasional atypical erythroid precursors - Adequate megakaryocytes with unremarkable morphology - Increased iron stores without ring sideroblasts - See comment Peripheral blood, smear: - Pancytopenia with macrocytic anemia and thrombocytopenia - Neutropenia at 1015 EDT Performed By: #### 2 4323-8 #### [facility] CLIA [id number] [address] [place] [address] [place] FINAL PERFORMING LAB Normal [place] Comment on above: Order Comment: Gris juarez Type: BLOOD SPECIMEN Ordering Facility: [facility] Address: [address] [place] [address] Result Comment: Diag nostic interpretation performed at: [facility], [address] [place] [address] CLIA# [id number] [employer] Machine Mechanic: León Eubanks MD Performed By: #### 2 4323-8 #### [facility] CLIA [id number] [address] [place] [address] [place] MICROSCOPIC DESCRIPTION Normal [place] Comment on above: Order Comment: Gris juarez Type: BLOOD SPECIMEN Ordering Facility: [facility] Address: [address] [place] [address] Result Comment: ZAYDA PHERAL BLOOD: CBC (11/10/2024) [...] a VAF of 3%. Performed By: #### 2 4323-8 #### [facility] [place] [id number] [address] [place] [address] [place] CBC WITH AUTO DIFFERENTIALon 01-23-2025 Basophils (Bld) [#/Vol] 0.06 10*3/uL Normal 0.00-0.20 [facility] Comment on above: Performed By: #### L [id number] #### [facility] ([facility]) [address] [place] [address] Basophils/100 WBC (Bld) 0.7 % Normal 0.0-1.0 [facility] Comment on above: Performed By: #### L [id number] #### [facility] ([facility]) [address] [place] [address] Eosinophils (Bld) [#/Vol] 0.13 10*3/uL Normal 0.00-0.50 [facility] Comment on above: Performed By: #### L [id number] #### [facility] ([facility]AKER) [address] [place] [address] Eosinophils/100 WBC (Bld) 1.6 % Normal 0.0-6.0 [facility] Comment on above: Performed By: #### L [id number] #### [facility] [address] [place] [address] Erythrocyte distribution width (RBC) [Ratio] 12.9 % Normal 11.5-15.0 [facility] Comment on above: Performed By: #### L [id number] #### [facility] [address] [place] [address] ERYTHROCYTE MEAN CORPUSCULAR HEMOGLOBIN CONCENTRATION (G/DL) BY AUTOMATED 32.2 g/dL Normal 32.0-35.0 [facility] Comment on above: Performed By: #### L [id number] #### [facility] [address] [place] [address] Hematocrit (Bld) [Volume fraction] 49.7 % High 36.0-45.0 [facility] Comment on above: Performed By: #### L [id number] #### [facility] [address] [place] [address] Hemoglobin (Bld) [Mass/Vol] 16.0 g/dL High 12.0-15.0 [facility] Comment on above: Performed By: #### L [id number] #### [facility] ([facility]ER) [address] [place] [address] Immature granulocytes (Bld) [#/Vol] 0.04 10*3/uL Normal 0.00-0.20 [facility] Comment on above: Performed By: #### L [id number] #### [facility] ([facility]ER) [address] [place] [address] Immature granulocytes/100 WBC (Bld) 0.5 % Normal 0.0-1.0 [facility] Comment on above: Performed By: #### L [id number] #### [facility] [address] [place] [address] Lymphocytes (Bld) [#/Vol] 1.84 10*3/uL Normal 1.20-4.00 [facility] Comment on above: Performed By: #### L [id number] #### [facility] ([facility]) [address] [place] [address] Lymphocytes/100 WBC (Bld) 22.3 % Normal 20.0-45.0 [facility] Comment on above: Performed By: #### L [id number] #### [facility] ([facility]) [address] [place] [address] MCH (RBC) [Entitic mass] 27.5 pg Normal 27.0-33.0 [facility] Comment on above: Performed By: #### L [id number] #### [facility] ([facility]) [address] [place] [address] MCV (RBC) [Entitic vol] 85.4 fL Normal 82.0-98.0 [facility] Comment on above: Performed By: #### L [id number] #### [facility] [address] [place] [address] Monocytes (Bld) [#/Vol] 0.61 10*3/uL Normal 0.10-1.00 [facility] Comment on above: Performed By: #### L [id number] #### [facility] ([facility]AKER) [address] [place] [address] Monocytes/100 WBC (Bld) 7.4 % Normal 5.0-12.0 [facility] Comment on above: Performed By: #### L [id number] #### [facility] ([facility]) [address] [place] [address] Neutrophils (Bld) [#/Vol] 5.56 10*3/uL Normal 1.60-7.60 [facility] Comment on above: Performed By: #### L [id number] #### [facility] ([facility]) [address] [place] [address] Neutrophils/100 WBC (Bld) 67.5 % Normal 40.0-72.0 [facility] Comment on above: Performed By: #### L [id number] #### [facility] ([facility]) [address] [place] [address] NRBC (PER 100 WBCS) BY AUTOMATED COUNT 0.0 % Normal 0 [facility] Comment on above: Performed By: #### L [id number] #### [facility] ([facility]) [address] [place] [address] PLATELETS (10*3/UL) IN BLOOD AUTOMATED COUNT 223 10*3/uL Normal 150-400 [facility] Comment on above: Performed By: #### L [id number] #### [facility] ([facility]) [address] [place] [address] RBC (Bld) [#/Vol] 5.82 10*6/uL High 3.80-5.00 [facility] Comment on above: Performed By: #### L [id number] #### [facility] ([facility]) [address] [place] [address] WBC (Bld) [#/Vol] 8.24 10*3/uL Normal 4.00-10.60 [facility] Comment on above: Performed By: #### L [id number] #### [facility] ([facility]) [address] [place] [address] COMPREHENSIVE METABOLIC PANE Dayo 01-23-2025 Albumin [Mass/Vol] 4.2 g/dL Normal 3.5-5.7 [facility] Comment on above: Performed By: #### L [id number] #### [facility] [address] [place] [address] ALP [Catalytic activity/Vol] 248 U/L High 34-104 [facility] Comment on above: Performed By: #### L [id number] #### [facility] ([facility]) [address] [place] [address] ALT [Catalytic activity/Vol] 75 U/L High 7-52 [facility] Comment on above: Performed By: #### L [id number] #### [facility] ([facility]) [address] [place] [address] Anion gap [Moles/Vol] 13 mmol/L Normal 7-20 [facility] Comment on above: Performed By: #### L [id number] #### [facility] ([facility]) [address] [place] [address] AST [Catalytic activity/Vol] 36 U/L Normal 13-39 [facility] Comment on above: Performed By: #### L [id number] #### [facility] ([facility]) [address] [place] [address] Bilirubin [Mass/Vol] 0.3 mg/dL Normal 0.3-1.0 [facility] Comment on above: Performed By: #### L [id number] #### [facility] ([facility]) [address] [place] [address] Calcium [Mass/Vol] 9.5 mg/dL Normal 8.6-10.3 [facility] Comment on above: Performed By: #### L [id number] #### [facility] [address] [place] [address] Chloride [Moles/Vol] 101 mmol/L Normal 98-107 [facility] Comment on above: Performed By: #### L [id number] #### [facility] [address] [place] [address] CO2 [Moles/Vol] 26 mmol/L Normal 21-31 [facility] Comment on above: Performed By: #### L [id number] #### [facility] [address] [place] [address] Creatinine [Mass/Vol] 0.62 mg/dL Normal 0.60-1.20 [facility] Comment on above: Performed By: #### L [id number] #### [facility] ([facility]) [address] [place] [address] GLOMERULAR FILTRATION RATE ML/MIN/1.73 SQ M.PREDICTED 101.3 mL/min/1.73m*2 Normal >60.0 [facility] Comment on above: Result Comment: The [facility]???s estimated glomerular filtration rate (eGFR) will no [...] group of individuals. Performed By: #### L [id number] #### [facility] ([facility]) [address] [place] [address] Glucose [Mass/Vol] 204 mg/dL High 70-100 [facility] Comment on above: Performed By: #### L [id number] #### [facility] ([facility]) [address] [facility] [place] [address] Potassium [Moles/Vol] 4.5 mmol/L Normal 3.5-5.1 [facility] Comment on above: Performed By: #### L [id number] #### [facility] ([facility]) [address] [facility] [place] [address] Protein [Mass/Vol] 7.2 g/dL Normal 6.0-8.3 [facility] Comment on above: Performed By: #### L [id number] #### [facility] ([facility]) [address] [facility] [place] [address] Sodium [Moles/Vol] 135 mmol/L Low 136-145 [facility] Comment on above: Performed By: #### L [id number] #### [facility] ([facility]AKER) [address] [place] [address] Urea nitrogen [Mass/Vol] 10 mg/dL Normal 01-19 [facility] Comment on above: Performed By: #### L [id number] #### [facility] [address] [place] [address] UREA NITROGEN/CREATININE (MASS RATIO) IN SER/PLAS 16.1 Normal [facility] Comment on above: Performed By: #### L [id number] #### [facility] [address] [place] [address] Labon 01-23-2025 Lab [id number] Elaine Thomas 1965 F Date Provider Department Center 01/23/2025 2243-[facility] RESOURCE [facility] Family History Problem Relation Age of Onset COPD Mother Other Mother Thyroid disease Mother Heart failure Mother Other Mother COPD Father Thyroid disease Father Prostate cancer Father Brain cancer Brother Family Status - Relation Status Age at Mother Father Brother Normal [facility] VITAMIN B12on 01-23-2025 Cobalamin (Vitamin B12) [Mass/Vol] 488 pg/mL Normal 180-914 [facility] Comment on above: Result Comment: REFE RENCE RANGES: 180-914 pg/mL Normal 145-179 pg/mL Indeterminate <145 pg/mL Deficient Performed By: #### L [id number] #### [facility] ([facility]) [address] [place] [address] CBC WITH AUTO DIFFERENTIALon 01-19-2025 Basophils (Bld) [#/Vol] 0.07 10*3/uL Normal 0.00-0.20 [facility] Comment on above: Performed By: #### L [id number] #### [facility] ([facility]ER) [address] [place] [address] Basophils/100 WBC (Bld) 1.0 % Normal 0.0-1.0 [facility] Comment on above: Performed By: #### L [id number] #### [facility] (BEAKER) [address] [place] [address] Eosinophils (Bld) [#/Vol] 0.15 10*3/uL Normal 0.00-0.50 [facility] Comment on above: Performed By: #### L [id number] #### [facility] ([facility]) [address] [place] [address] Eosinophils/100 WBC (Bld) 2.1 % Normal 0.0-6.0 [facility] Comment on above: Performed By: #### L [id number] #### [facility] ([facility]) [address] [place] [address] Erythrocyte distribution width (RBC) [Ratio] 12.7 % Normal 11.5-15.0 [facility] Comment on above: Performed By: #### L [id number] #### [facility] ([facility]) [address] [place] [address] ERYTHROCYTE MEAN CORPUSCULAR HEMOGLOBIN CONCENTRATION (G/DL) BY AUTOMATED 32.3 g/dL Normal 32.0-35.0 [facility] Comment on above: Performed By: #### L [id number] #### [facility] ([facility]) [address] [place] [address] Hematocrit (Bld) [Volume fraction] 49.3 % High 36.0-45.0 [facility] Comment on above: Performed By: #### L [id number] #### [facility] [address] [place] [address] Hemoglobin (Bld) [Mass/Vol] 15.9 g/dL High 12.0-15.0 [facility] Comment on above: Performed By: #### L [id number] #### [facility] [address] [place] [address] Immature granulocytes (Bld) [#/Vol] 0.04 10*3/uL Normal 0.00-0.20 [facility] Comment on above: Performed By: #### L [id number] #### [facility] ([facility]ER) [address] [place] [address] Immature granulocytes/100 WBC (Bld) 0.6 % Normal 0.0-1.0 [facility] Comment on above: Performed By: #### L [id number] #### [facility] [address] [place] [address] Lymphocytes (Bld) [#/Vol] 1.57 10*3/uL Normal 1.20-4.00 [facility] Comment on above: Performed By: #### L [id number] #### [facility] ([facility]) [address] [place] [address] Lymphocytes/100 WBC (Bld) 21.7 % Normal 20.0-45.0 [facility] Comment on above: Performed By: #### L [id number] #### [facility] ([facility]) [address] [place] [address] MCH (RBC) [Entitic mass] 27.4 pg Normal 27.0-33.0 [facility] Comment on above: Performed By: #### L [id number] #### [facility] ([facility]) [address] [place] [address] MCV (RBC) [Entitic vol] 85.0 fL Normal 82.0-98.0 [facility] Comment on above: Performed By: #### L [id number] #### [facility] [address] [place] [address] Monocytes (Bld) [#/Vol] 0.57 10*3/uL Normal 0.10-1.00 [facility] Comment on above: Performed By: #### L [id number] #### [facility] [address] [place] [address] Monocytes/100 WBC (Bld) 7.9 % Normal 5.0-12.0 [facility] Comment on above: Performed By: #### L [id number] #### [facility] (BEAKER) [address] [place] [address] Neutrophils (Bld) [#/Vol] 4.84 10*3/uL Normal 1.60-7.60 [facility] Comment on above: Performed By: #### L [id number] #### [facility] [address] [place] [address] Neutrophils/100 WBC (Bld) 66.7 % Normal 40.0-72.0 [facility] Comment on above: Performed By: #### L [id number] #### [facility] ([facility]) [address] [place] [address] NRBC (PER 100 WBCS) BY AUTOMATED COUNT 0.0 % Normal 0 [facility] Comment on above: Performed By: #### L [id number] #### [facility] ([facility]) [address] [place] [address] PLATELETS (10*3/UL) IN BLOOD AUTOMATED COUNT 218 10*3/uL Normal 150-400 [facility] Comment on above: Performed By: #### L [id number] #### [facility] ([facility]) [address] [place] [address] RBC (Bld) [#/Vol] 5.80 10*6/uL High 3.80-5.00 [facility] Comment on above: Performed By: #### L [id number] #### [facility] [address] [place] [address] WBC (Bld) [#/Vol] 7.24 10*3/uL Normal 4.00-10.60 [facility] Comment on above: Performed By: #### L [id number] #### [facility] [address] [place] [address] COMPREHENSIVE METABOLIC PANE Dayo 01-19-2025 Albumin [Mass/Vol] 4.1 g/dL Normal 3.5-5.7 [facility] Comment on above: Performed By: #### L [id number] #### [facility] [address] [place] [address] ALP [Catalytic activity/Vol] 254 U/L High 34-104 [facility] Comment on above: Performed By: #### L [id number] #### [facility] ([facility]) [address] [place] [address] ALT [Catalytic activity/Vol] 96 U/L High 7-52 [facility] Comment on above: Performed By: #### L [id number] #### [facility] ([facility]) [address] [place] [address] Anion gap [Moles/Vol] 11 mmol/L Normal 7-20 [facility] Comment on above: Performed By: #### L [id number] #### [facility] ([facility]) [address] [place] [address] AST [Catalytic activity/Vol] 50 U/L High 13-39 [facility] Comment on above: Performed By: #### L [id number] #### [facility] ([facility]) [address] [place] [address] Bilirubin [Mass/Vol] 0.3 mg/dL Normal 0.3-1.0 [facility] Comment on above: Performed By: #### L [id number] #### [facility] ([facility]) [address] [place] [address] Calcium [Mass/Vol] 8.8 mg/dL Normal 8.6-10.3 [facility] Comment on above: Performed By: #### L [id number] #### [facility] ([facility]) [address] [place] [address] Chloride [Moles/Vol] 100 mmol/L Normal 98-107 [facility] Comment on above: Performed By: #### L [id number] #### [facility] [address] [place] [address] CO2 [Moles/Vol] 27 mmol/L Normal 21-31 [facility] Comment on above: Performed By: #### L [id number] #### [facility] ([facility]) [address] [place] [address] Creatinine [Mass/Vol] 0.57 mg/dL Low 0.60-1.20 [facility] Comment on above: Performed By: #### L [id number] #### [facility] ([facility]) [address] [place] [address] GLOMERULAR FILTRATION RATE ML/MIN/1.73 SQ M.PREDICTED 103.3 mL/min/1.73m*2 Normal >60.0 [facility] Comment on above: Result Comment: The [facility]???s estimated glomerular filtration rate (eGFR) will no [...] group of individuals. Performed By: #### L [id number] #### [facility] ([facility]) [address] [place] [address] Glucose [Mass/Vol] 173 mg/dL High 70-100 [facility] Comment on above: Performed By: #### L [id number] #### [facility] ([facility]) [address] [place] [address] Potassium [Moles/Vol] 4.2 mmol/L Normal 3.5-5.1 [facility] Comment on above: Performed By: #### L [id number] #### [facility] ([facility]) [address] [place] [address] Protein [Mass/Vol] 7.2 g/dL Normal 6.0-8.3 [facility] Comment on above: Performed By: #### L [id number] #### [facility] ([facility]) [address] [place] [address] Sodium [Moles/Vol] 134 mmol/L Low 136-145 [facility] Comment on above: Performed By: #### L [id number] #### [facility] (BEAKER) [address] [place] [address] Urea nitrogen [Mass/Vol] 12 mg/dL Normal 01-19 [facility] Comment on above: Performed By: #### L [id number] #### [facility] (AKER) [address] [place] [address] UREA NITROGEN/CREATININE (MASS RATIO) IN SER/PLAS 21.1 Normal [facility] Comment on above: Performed By: #### L [id number] #### [facility] (JOSEY) [address] [place] [address] Labon 01-19-2025 Lab [id number] Elaine Thomas 1965 F Date Provider Department Center 01/19/[address] [place] [address] LAB RESOURCE DCC DRAW [facility] Family History Problem Relation Age of Onset COPD Mother Other Mother Thyroid disease Mother Heart failure Mother Other Mother COPD Father Thyroid disease Father Prostate cancer Father Brain cancer Brother Family Status - Relation Status Age at Mother Father Brother Normal [facility] Abstracton 01-04-2025 Abstract [id number] Elaine Thomas 1965 F Date Provider Department Center 01/04/2025 [id number] HERNADEZ INF Jimymarzena Saha Family History Problem Relation Age of Onset COPD Mother Other Mother Thyroid disease Mother Heart failure Mother Other Mother COPD Father Thyroid disease Father Prostate cancer Father Brain cancer Brother Family Status - Relation Status Age at Mother Father Brother Normal [facility] Office Visiton 12-27-2024 Follow-up visit [id number] Elaine Thomas 1965 Date Provider Department Center 12/27/2024 ZULEIMA CHOE INF Jimy Heal Family History Problem Relation Age of Onset COPD Mother Other Mother Thyroid disease Mother Heart failure Mother Other Mother COPD Father Thyroid disease Father Prostate cancer Father Brain cancer Brother Family Status - Relation Status Age at Mother Father Brother Level of Service:46115 UT OFFICE/OUTPATIENT NEW MODERATE MDM 45 MINUTES (GC) Reason for Visit and Comments: HSV Infection [Other] Normal [facility] Reminderson 12-25-2024 Reminders Reminders From: Tamiko Celis [...] Message Caller Name: ANDREIA THOMAS; Caller Number: , M repeat EGD after 3 months with mapping bx Patient has an appointment on 12/25/24. I called patient because she cancelled her appointment for 12/25/24. She stated she was unaware she needed a repeat. I sent to [facility] voicemail to call patient back to explain this. made Patient aware, they are willing to proceed with EGD patient is scheduled for 01/15/25 Normal [facility] CBC WITH AUTO DIFFERENTIALon 11-23-2024 Basophils (Bld) [#/Vol] 0.11 10*3/uL Normal 0.00-0.20 [facility] Comment on above: Order Comment: Waive d Testing in the ED is performed under the ED CLIA certificate #[id number]. Performed By: #### L [id number] #### [facility] (BEAKER) [address] [place] [address] Basophils/100 WBC (Bld) 1.3 % High 0.0-1.0 [facility] Comment on above: Order Comment: Waive d Testing in the ED is performed under the ED CLIA certificate #[id number]. Performed By: #### L [id number] #### [facility] (BEAKER) [address] [place] [address] Eosinophils (Bld) [#/Vol] 0.09 10*3/uL Normal 0.00-0.50 [facility] Comment on above: Order Comment: Waive d Testing in the ED is performed under the ED CLIA certificate #[id number]. Performed By: #### L [id number] #### [facility] (BEAKER) [address] [place] [address] Eosinophils/100 WBC (Bld) 1.0 % Normal 0.0-6.0 [facility] Comment on above: Order Comment: Waive d Testing in the ED is performed under the ED CLIA certificate #[id number]. Performed By: #### L [id number] #### [facility] (BEAKER) [address] [place] [address] Erythrocyte distribution width (RBC) [Ratio] 16.1 % High 11.5-15.0 [facility] Comment on above: Order Comment: Waive d Testing in the ED is performed under the ED CLIA certificate #[id number]. Performed By: #### L [id number] #### [facility] (BEAKER) [address] [place] [address] ERYTHROCYTE MEAN CORPUSCULAR HEMOGLOBIN CONCENTRATION (G/DL) BY AUTOMATED 31.1 g/dL Low 32.0-35.0 [facility] Comment on above: Order Comment: Waive d Testing in the ED is performed under the ED CLIA certificate #[id number]. Performed By: #### L [id number] #### [facility] (BEAKER) [address] [place] [address] Hematocrit (Bld) [Volume fraction] 39.5 % Normal 36.0-45.0 [facility] Comment on above: Order Comment: Waive d Testing in the ED is performed under the ED CLIA certificate #[id number]. Performed By: #### L [id number] #### [facility] (BEAKER) [address] [place] [address] Hemoglobin (Bld) [Mass/Vol] 12.3 g/dL Normal 12.0-15.0 [facility] Comment on above: Order Comment: Waive d Testing in the ED is performed under the ED CLIA certificate #[id number]. Performed By: #### L [id number] #### [facility] (BEAKER) [address] [place] [address] Immature granulocytes (Bld) [#/Vol] 0.05 10*3/uL Normal 0.00-0.20 [facility] Comment on above: Order Comment: Waive d Testing in the ED is performed under the ED CLIA certificate #[id number]. Performed By: #### L [id number] #### [facility] (BEAKER) [address] [place] [address] Immature granulocytes/100 WBC (Bld) 0.6 % Normal 0.0-1.0 [facility] Comment on above: Order Comment: Waive d Testing in the ED is performed under the ED CLIA certificate #[id number]. Performed By: #### L [id number] #### [facility] (BEAKER) [address] [place] [address] Lymphocytes (Bld) [#/Vol] 1.04 10*3/uL Low 1.20-4.00 [facility] Comment on above: Order Comment: Waive d Testing in the ED is performed under the ED CLIA certificate #[id number]. Performed By: #### L [id number] #### [facility] (BEAKER) [address] [place] [address] Lymphocytes/100 WBC (Bld) 12.0 % Low 20.0-45.0 [facility] Comment on above: Order Comment: Waive d Testing in the ED is performed under the ED CLIA certificate #[id number]. Performed By: #### L [id number] #### [facility] (BEAKER) [address] [place] [address] MCH (RBC) [Entitic mass] 30.5 pg Normal 27.0-33.0 [facility] Comment on above: Order Comment: Waive d Testing in the ED is performed under the ED CLIA certificate #[id number]. Performed By: #### L [id number] #### [facility] (BEAKER) [address] [place] [address] MCV (RBC) [Entitic vol] 98.0 fL Normal 82.0-98.0 [facility] Comment on above: Order Comment: Waive d Testing in the ED is performed under the ED CLIA certificate #[id number]. Performed By: #### L [id number] #### [facility] (BEAKER) [address] [place] [address] Monocytes (Bld) [#/Vol] 0.51 10*3/uL Normal 0.10-1.00 [facility] Comment on above: Order Comment: Waive d Testing in the ED is performed under the ED CLIA certificate #[id number]. Performed By: #### L [id number] #### [facility] (BEAKER) [address] [facility] [place] [address] Monocytes/100 WBC (Bld) 5.9 % Normal 5.0-12.0 [facility] Comment on above: Order Comment: Waive d Testing in the ED is performed under the ED CLIA certificate #[id number]. Performed By: #### L [id number] #### [facility] (BEAKER) [address] [place] [address] Neutrophils (Bld) [#/Vol] 6.86 10*3/uL Normal 1.60-7.60 [facility] Comment on above: Order Comment: Waive d Testing in the ED is performed under the ED CLIA certificate #[id number]. Performed By: #### L [id number] #### [facility] (BEAKER) [address] [place] [address] Neutrophils/100 WBC (Bld) 79.2 % High 40.0-72.0 [facility] Comment on above: Order Comment: Waive d Testing in the ED is performed under the ED CLIA certificate #[id number]. Performed By: #### L [id number] #### [facility] ([email or web address]) [address] [place] [address] NRBC (PER 100 WBCS) BY AUTOMATED COUNT 0.0 % Normal 0 [facility] Comment on above: Order Comment: Waive d Testing in the ED is performed under the ED CLIA certificate #[id number]. Performed By: #### L [id number] #### [facility] (BEAKER) [address] [place] [address] PLATELETS (10*3/UL) IN BLOOD AUTOMATED COUNT 419 10*3/uL High 150-400 [facility] Comment on above: Order Comment: Waive d Testing in the ED is performed under the ED CLIA certificate #[id number]. Performed By: #### L [id number] #### [facility] [address] [place] [address] RBC (Bld) [#/Vol] 4.03 10*6/uL Normal 3.80-5.00 [facility] Comment on above: Order Comment: Waive d Testing in the ED is performed under the ED CLIA certificate #[id number]. Performed By: #### L [id number] #### [facility] ([email or web address]) [address] [place] [address] WBC (Bld) [#/Vol] 8.66 10*3/uL Normal 4.00-10.60 [facility] Comment on above: Order Comment: Waive d Testing in the ED is performed under the ED CLIA certificate #[id number]. Performed By: #### L [id number] #### [facility] [address] [place] [address] COMPREHENSIVE METABOLIC PANE Dayo 11-23-2024 Albumin [Mass/Vol] 3.8 g/dL Normal 3.5-5.7 [facility] Comment on above: Performed By: #### L [id number] #### [facility] [address] [place] [address] ALP [Catalytic activity/Vol] 180 U/L High 34-104 [facility] Comment on above: Performed By: #### L [id number] #### [facility] [address] [place] [address] ALT [Catalytic activity/Vol] 12 U/L Normal 7-52 [facility] Comment on above: Performed By: #### L [id number] #### [facility] ([facility]) [address] [place] [address] Anion gap [Moles/Vol] 12 mmol/L Normal 7-20 [facility] Comment on above: Performed By: #### L [id number] #### [facility] ([facility]) [address] [place] [address] AST [Catalytic activity/Vol] 12 U/L Low 13-39 [facility] Comment on above: Performed By: #### L [id number] #### [facility] ([facility]) [address] [place] [address] Bilirubin [Mass/Vol] 0.6 mg/dL Normal 0.3-1.0 [facility] Comment on above: Performed By: #### L [id number] #### [facility] ([facility]) [address] [place] [address] Calcium [Mass/Vol] 8.9 mg/dL Normal 8.6-10.3 [facility] Comment on above: Performed By: #### L [id number] #### [facility] [address] [place] [address] Chloride [Moles/Vol] 105 mmol/L Normal 98-107 [facility] Comment on above: Performed By: #### L [id number] #### [facility] (BEAKER) [address] [place] [address] CO2 [Moles/Vol] 27 mmol/L Normal 21-31 [facility] Comment on above: Performed By: #### L [id number] #### [facility] ([facility]) [address] [place] [address] Creatinine [Mass/Vol] 0.52 mg/dL Low 0.60-1.20 [facility] Comment on above: Performed By: #### L [id number] #### [facility] ([facility]) [address] [place] [address] GLOMERULAR FILTRATION RATE ML/MIN/1.73 SQ M.PREDICTED 105.6 mL/min/1.73m*2 Normal >60.0 [facility] Comment on above: Result Comment: The [facility]???s estimated glomerular filtration rate (eGFR) will no [...] group of individuals. Performed By: #### L [id number] #### [facility] ([facility]) [address] [place] [address] Glucose [Mass/Vol] 118 mg/dL High 70-100 [facility] Comment on above: Performed By: #### L [id number] #### [facility] ([facility]) [address] [place] [address] Potassium [Moles/Vol] 3.8 mmol/L Normal 3.5-5.1 [facility] Comment on above: Performed By: #### L [id number] #### [facility] ([facility]) [address] [place] [address] Protein [Mass/Vol] 6.7 g/dL Normal 6.0-8.3 [facility] Comment on above: Performed By: #### L [id number] #### [facility] ([facility]) [address] [place] [address] Sodium [Moles/Vol] 140 mmol/L Normal 136-145 [facility] Comment on above: Performed By: #### L [id number] #### [facility] ([facility]) [address] [place] [address] Urea nitrogen [Mass/Vol] 8 mg/dL Normal 7-25 [facility] Comment on above: Performed By: #### L [id number] #### [facility] ([facility]) [address] [place] [address] UREA NITROGEN/CREATININE (MASS RATIO) IN SER/PLAS 15.4 Normal [facility] Comment on above: Performed By: #### L [id number] #### [facility] ([facility]) [address] [place] [address] LACTATE DEHYDROGENASEon 10-27 LACTATE DEHYDROGENASE (U/L) IN SER/PLAS BY LAC->PYR RXN 273 U/L High 140-271 [facility] Comment on above: Performed By: #### L [id number] #### [facility] ([facility]) [address] [place] [address] Labon 11-23-2024 Lab [id number] Elaine Thomas 1965 F Date Provider Department [place] 11/23/2024 2243-[facility] LAB RESOURCE DCC DRAW DCC No family history on file Normal [facility] 30on 11-14-2024 30 The patient is Moder ately Stable - Low risk of patient condition declining or worsening The patient's goals for the shift include sleep The clinical goals for the shift include vss, improved labs , free from falls, comfort, sleep Normal [facility] 30 The patient is Moder ately Stable - Low risk of patient condition declining or worsening The patient's goals for the shift include sleep The clinical goals for the shift include VSS, improved labs, free from falls, comfort, sleep Normal [facility] BASIC METABOLIC PANELon 10-27 Anion gap [Moles/Vol] 6 mmol/L Low -20 [facility] Comment on above: Performed By: #### L [id number] #### [facility] (BEAKER) [address] [place] [address] Calcium [Mass/Vol] 8.3 mg/dL Low 8.6-10.3 [facility] Comment on above: Performed By: #### L [id number] #### [facility] (BEAKER) [address] [place] [address] Chloride [Moles/Vol] 111 mmol/L High 98-107 [facility] Comment on above: Performed By: #### L [id number] #### [facility] [address] [place] [address] CO2 [Moles/Vol] 29 mmol/L Normal 21-31 [facility] Comment on above: Performed By: #### L [id number] #### [facility] [address] [place] [address] Creatinine [Mass/Vol] 0.58 mg/dL Low 0.60-1.20 [facility] Comment on above: Performed By: #### L [id number] #### [facility] ([facility]) [address] [place] [address] GLOMERULAR FILTRATION RATE ML/MIN/1.73 SQ M.PREDICTED 102.9 mL/min/1.73m*2 Normal >60.0 [facility] Comment on above: Result Comment: The [facility]???s estimated glomerular filtration rate (eGFR) will no [...] group of individuals. Performed By: #### L [id number] #### [facility] [address] [place] [address] Glucose [Mass/Vol] 122 mg/dL High 70-100 [facility] Comment on above: Performed By: #### L [id number] #### [facility] ([facility]) [address] [place] [address] Potassium [Moles/Vol] 3.8 mmol/L Normal 3.5-5.1 [facility] Comment on above: Performed By: #### L [id number] #### [facility] ([facility]) [address] [place] [address] Sodium [Moles/Vol] 142 mmol/L Normal 136-145 [facility] Comment on above: Performed By: #### L [id number] #### [facility] ([facility]) [address] [place] [address] Urea nitrogen [Mass/Vol] 11 mg/dL Normal 7-25 [facility] Comment on above: Performed By: #### L [id number] #### [facility] ([facility]) [address] [place] [address] UREA NITROGEN/CREATININE (MASS RATIO) IN SER/PLAS 19.0 Normal [facility] Comment on above: Performed By: #### L [id number] #### [facility] ([facility]) [address] [place] [address] CBC WITH AUTO DIFFERENTIALon 11-14-2024 Erythrocyte distribution width (RBC) [Ratio] 20.9 % High 11.5-15.0 [facility] Comment on above: Performed By: #### L [id number] #### [facility] ([facility]) [address] [place] [address] ERYTHROCYTE MEAN CORPUSCULAR HEMOGLOBIN CONCENTRATION (G/DL) BY AUTOMATED 30.7 g/dL Low 32.0-35.0 [facility] Comment on above: Performed By: #### L [id number] #### [facility] ([facility]) [address] [place] [address] Hematocrit (Bld) [Volume fraction] 27.7 % Low 36.0-45.0 [facility] Comment on above: Performed By: #### L [id number] #### [facility] [address] [place] [address] Hemoglobin (Bld) [Mass/Vol] 8.5 g/dL Low 12.0-15.0 [facility] Comment on above: Performed By: #### L [id number] #### [facility] ([facility]) [address] [place] [address] IMMATURE PLATELET FRACTION % 5.0 % Normal 0.8-6.3 [facility] Comment on above: Performed By: #### L [id number] #### [facility] ([facility]) [address] [place] [address] MCH (RBC) [Entitic mass] 32.8 pg Normal 27.0-33.0 [facility] Comment on above: Performed By: #### L [id number] #### [facility] ([facility]) [address] [place] [address] MCV (RBC) [Entitic vol] 106.9 fL High 82.0-98.0 [facility] Comment on above: Performed By: #### L [id number] #### [facility] ([facility]) [address] [place] [address] NRBC (PER 100 WBCS) BY AUTOMATED COUNT 1.8 % High 0 [facility] Comment on above: Performed By: #### L [id number] #### [facility] ([facility]) [address] [place] [address] PLATELETS (10*3/UL) IN BLOOD AUTOMATED COUNT 113 10*3/uL Low 150-400 [facility] Comment on above: Performed By: #### L [id number] #### [facility] ([facility]) [address] [place] [address] RBC (Bld) [#/Vol] 2.59 10*6/uL Low 3.80-5.00 [facility] Comment on above: Performed By: #### L [id number] #### [facility] ([facility]) [address] [place] [address] WBC (Bld) [#/Vol] 3.30 10*3/uL Low 4.00-10.60 [facility] Comment on above: Performed By: #### L [id number] #### [facility] ([facility]) [address] [place] [address] HIV COMBO 4Gon 11-14-2024 HIV COMBO 4G Negative Normal Negative [facility] Comment on above: Result Comment: Rece ived comment: User comments: Slide comments: Performed By: #### L [id number] #### [facility] ([facility]) [address] [place] [address] MANUAL DIFFERENTIALon 2024 ANISOCYTOSIS PRESENCE IN BLOOD BY LIGHT MICROSCOPY Moderate Normal [facility] Comment on above: Performed By: #### L [id number] #### [facility] ([facility]) [address] [place] [place] [address] BASOPHILS (10*3/UL) IN BLOOD BY CALCULATION 0.01 10*3/uL Normal 0.00-0.20 [facility] Comment on above: Performed By: #### L [id number] #### [facility] ([facility]) [address] [place] [address] BASOPHILS/100 LEUKOCYTES IN BLOOD BY AUTOMATED COUNT 0.3 % Normal 0.0-1.0 [facility] Comment on above: Performed By: #### L [id number] #### [facility] ([facility]) [address] [place] [address] EOSINOPHILS (10*3/UL) IN BLOOD BY CALCULATION 0.07 10*3/uL Normal 0.00-0.50 [facility] Comment on above: Performed By: #### L [id number] #### [facility] ([facility]) [address] [place] [address] EOSINOPHILS/100 LEUKOCYTES IN BLOOD BY AUTOMATED COUNT 2.1 % Normal 0.0-6.0 [facility] Comment on above: Performed By: #### L [id number] #### [facility] ([facility]) [address] [place] [address] IMMATURE GRANULOCYTES (10*3/UL) IN BLOOD BY CALCULATION 0.08 10*3/uL Normal 0.00-0.20 [facility] Comment on above: Performed By: #### L [id number] #### [facility] ([facility]) [address] [place] [address] IMMATURE GRANULOCYTES/100 LEUKOCYTES IN BLOOD BY AUTOMATED COUNT 2.4 % High 0.0-1.0 [facility] Comment on above: Performed By: #### L [id number] #### [facility] ([facility]) [address] [place] [address] LYMPHOCYTES (10*3/UL) IN BLOOD BY CALCULATION 0.82 10*3/uL Low 1.20-4.00 [facility] Comment on above: Performed By: #### L [id number] #### [facility] ([facility]) [address] [place] [address] LYMPHOCYTES/100 LEUKOCYTES IN BLOOD BY AUTOMATED COUNT 24.8 % Normal 20.0-45.0 [facility] Comment on above: Performed By: #### L [id number] #### [facility] ([facility]) [address] [place] [address] MONOCYTES (10*3/UL) IN BLOOD BY CALCUATION 0.55 10*3/uL Normal 0.10-1.00 [facility] Comment on above: Performed By: #### L [id number] #### [facility] ([facility]) [address] [place] [address] MONOCYTES/100 LEUKOCYTES IN BLOOD BY AUTOMATED COUNT 16.7 % High 5.0-12.0 [facility] Comment on above: Performed By: #### L [id number] #### [facility] ([facility]) [address] [place] [address] NEUTROPHILS (10*3/UL) IN BLOOD BY CALCULATION 1.8 10*3/uL Normal 1.6-7.6 [facility] Comment on above: Performed By: #### L [id number] #### [facility] ([facility]) [address] [place] [address] NEUTROPHILS/100 LEUKOCYTES IN BLOOD BY AUTOMATED COUNT 53.7 % Normal 40.0-72.0 [facility] Comment on above: Performed By: #### L [id number] #### [facility] ([facility]) [address] [place] [address] POIKILOCYTOSIS (PRESENCE) IN BLOOD BY LIGHT MICROSCOPY Slight Normal [facility] Comment on above: Performed By: #### L [id number] #### [facility] ([facility]) [address] [place] [address] POLYCHROMASIA IN BLOOD BY LIGHT MICROSCOPY Slight Normal [facility] Comment on above: Performed By: #### L [id number] #### [facility] ([facility]) [address] [place] [address] POCT GLUCOSE METER UNSOLICIT ED RESULTSon 11-14-2024 Glucose [Mass/Vol] 134 mg/dL High 70-105 [facility] Comment on above: Order Comment: Waive d Testing in the ED is performed under the ED CLIA certificate #[id number]. Result Comment: [email or web address] Performed By: #### L [id number] #### [facility] ([facility]) [address] [place] [address] Glucose [Mass/Vol] 155 mg/dL High 70-105 [facility] Comment on above: Order Comment: Waive d Testing in the ED is performed under the ED CLIA certificate #[id number]. Result Comment: [email or web address] Performed By: #### L [id number] ####[facility] ([facility])[address] [place] [address] CBC WITH AUTO DIFFERENTIALon 11-13-2024 Erythrocyte distribution width (RBC) [Ratio] 21.3 % High 11.5-15.0 [facility] Comment on above: Performed By: #### L [id number] #### [facility] ([facility]) [address] [place] [address] ERYTHROCYTE MEAN CORPUSCULAR HEMOGLOBIN CONCENTRATION (G/DL) BY AUTOMATED 31.1 g/dL Low 32.0-35.0 [facility] Comment on above: Performed By: #### L [id number] #### [facility] [address] [place] [address] Hematocrit (Bld) [Volume fraction] 26.4 % Low 36.0-45.0 [facility] Comment on above: Performed By: #### L [id number] #### [facility] ([facility]) [address] [place] [address] Hemoglobin (Bld) [Mass/Vol] 8.2 g/dL Low 12.0-15.0 [facility] Comment on above: Performed By: #### L [id number] #### [facility] ([facility]) [address] [place] [address] IMMATURE PLATELET FRACTION % 6.7 % High 0.8-6.3 [facility] Comment on above: Performed By: #### L [id number] #### [facility] ([facility]) [address] [place] [address] MCH (RBC) [Entitic mass] 34.0 pg High 27.0-33.0 [facility] Comment on above: Performed By: #### L [id number] #### [facility] [address] [place] [address] MCV (RBC) [Entitic vol] 109.5 fL High 82.0-98.0 [facility] Comment on above: Performed By: #### L [id number] #### [facility] [address] [place] [address] NRBC (PER 100 WBCS) BY AUTOMATED COUNT 3.1 % High 0 [facility] Comment on above: Performed By: #### L [id number] #### [facility] [address] [place] [address] PLATELETS (10*3/UL) IN BLOOD AUTOMATED COUNT 36 10*3/uL Low 150-400 [facility] Comment on above: Performed By: #### L [id number] #### [facility] ([facility]) [address] [place] [address] RBC (Bld) [#/Vol] 2.41 10*6/uL Low 3.80-5.00 [facility] Comment on above: Performed By: #### L [id number] #### [facility] ([facility]) [address] [place] [address] WBC (Bld) [#/Vol] 2.60 10*3/uL Low 4.00-10.60 [facility] Comment on above: Performed By: #### L [id number] #### [facility] ([facility]) [address] [place] [address] COLD AGGLUTININ SCREENon COLD AGGLUTININ TITER <1:32 Normal <1:32 [facility] Comment on above: Order Comment: See B one Marrow Exam Report Result Comment: INTE RPRETIVE INFORMATION: Cold Agglutinins [...] disease, and common respiratory disease. Performed By: [employer] [address] [place] [id number] [employer] Machine Mechanic: Cal Delgado MD, PhD CLIA Number: [id number] Performed By: #### L [id number] #### [facility] ([facility]) [address] [place] [address] COMPREHENSIVE METABOLIC PANE Dayo 11-13-2024 Albumin [Mass/Vol] 3.2 g/dL Low 3.5-5.7 [facility] Comment on above: Performed By: #### L [id number] #### [facility] ([facility]) [address] [place] [address] ALP [Catalytic activity/Vol] 81 U/L Normal 34-104 [facility] Comment on above: Performed By: #### L [id number] #### [facility] ([facility]) [address] [place] [address] ALT [Catalytic activity/Vol] 12 U/L Normal 7-52 [facility] Comment on above: Performed By: #### L [id number] #### [facility] ([facility]) [address] [place] [address] Anion gap [Moles/Vol] 6 mmol/L Low 7-20 [facility] Comment on above: Performed By: #### L [id number] #### [facility] ([facility]) [address] [place] [address] AST [Catalytic activity/Vol] 12 U/L Low 13-39 [facility] Comment on above: Performed By: #### L [id number] #### [facility] ([facility]) [address] [place] [address] Bilirubin [Mass/Vol] 0.7 mg/dL Normal 0.3-1.0 [facility] Comment on above: Performed By: #### L [id number] #### [facility] ([facility]) [address] [place] [address] Calcium [Mass/Vol] 8.2 mg/dL Low 8.6-10.3 [facility] Comment on above: Performed By: #### L [id number] #### [facility] ([facility]) [address] [place] [address] Chloride [Moles/Vol] 110 mmol/L High 98-107 [facility] Comment on above: Performed By: #### L [id number] #### [facility] ([facility]) [address] [place] [address] CO2 [Moles/Vol] 30 mmol/L Normal 21-31 [facility] Comment on above: Performed By: #### L [id number] #### [facility] ([facility]) [address] [place] [address] Creatinine [Mass/Vol] 0.48 mg/dL Low 0.60-1.20 [facility] Comment on above: Performed By: #### L [id number] #### [facility] ([facility]) [address] [place] [address] GLOMERULAR FILTRATION RATE ML/MIN/1.73 SQ M.PREDICTED 107.7 mL/min/1.73m*2 Normal >60.0 [facility] Comment on above: Result Comment: The [facility]???s estimated glomerular filtration rate (eGFR) will no [...] group of individuals. Performed By: #### L [id number] #### [facility] ([facility]) [address] [place] [address] Glucose [Mass/Vol] 120 mg/dL High 70-100 [facility] Comment on above: Performed By: #### L [id number] #### [facility] ([facility]) [address] [place] [address] Potassium [Moles/Vol] 3.4 mmol/L Low 3.5-5.1 [facility] Comment on above: Performed By: #### L [id number] #### [facility] ([facility]) [address] [place] [address] Protein [Mass/Vol] 5.1 g/dL Low 6.0-8.3 [facility] Comment on above: Performed By: #### L [id number] #### [facility] ([facility]) [address] [place] [address] Sodium [Moles/Vol] 143 mmol/L Normal 136-145 [facility] Comment on above: Performed By: #### L [id number] #### [facility] ([facility]) [address] [place] [address] Urea nitrogen [Mass/Vol] 10 mg/dL Normal 7-25 [facility] Comment on above: Performed By: #### L [id number] #### [facility] ([facility]) [address] [place] [address] UREA NITROGEN/CREATININE (MASS RATIO) IN SER/PLAS 20.8 Normal [facility] Comment on above: Performed By: #### L [id number] #### [facility] ([facility]) [address] [place] [address] HSV 1 AND 2 GLYCOPROTEIN G-S PECIFIC ANTIBODY, IGGon 11-13-2024 HSV 1 GLYCOPROTEIN G AB, IGG 8.77 IV High <=0.89 [facility] Comment on above: Result Comment: REFE RENCE [...] specific screening test. Performed By: #### L [id number] #### [facility] ([facility]) [address] [place] [address] HSV 2 GLYCOPROTEIN G AB, IGG 0.13 IV Normal <=0.89 [facility] Comment on above: Result Comment: REFE RENCE [...] the result for HSV-2 is Performed By: [employer] [address] [place] [address] [employer] Mechanic: Cal Delgado MD, PhD CLIA Number: [id number] Performed By: #### L [id number] #### [facility] ([facility]) [address] [place] [address] MAGNESIUMon 11-13-2024 Magnesium [Mass/Vol] 2.1 mg/dL Normal 1.9-2.7 [facility] Comment on above: Performed By: #### L [id number] #### [facility] ([facility]) [address] [place] [address] MANUAL DIFFERENTIALon 2024 ANISOCYTOSIS PRESENCE IN BLOOD BY LIGHT MICROSCOPY Moderate Normal [facility] Comment on above: Performed By: #### L [id number] #### [facility] ([facility]) [address] [place] [address] BASOPHILS (10*3/UL) IN BLOOD BY CALCULATION 0.01 10*3/uL Normal 0.00-0.20 [facility] Comment on above: Performed By: #### L [id number] #### [facility] ([facility]) [address] [place] [address] BASOPHILS/100 LEUKOCYTES IN BLOOD BY AUTOMATED COUNT 0.4 % Normal 0.0-1.0 [facility] Comment on above: Performed By: #### L [id number] #### [facility] ([facility]) [address] [place] [address] EOSINOPHILS (10*3/UL) IN BLOOD BY CALCULATION 0.04 10*3/uL Normal 0.00-0.50 [facility] Comment on above: Performed By: #### L [id number] #### [facility] ([facility]) [address] [place] [address] EOSINOPHILS/100 LEUKOCYTES IN BLOOD BY AUTOMATED COUNT 1.5 % Normal 0.0-6.0 [facility] Comment on above: Performed By: #### L [id number] #### [facility] ([facility]) [address] [place] [address] IMMATURE GRANULOCYTES (10*3/UL) IN BLOOD BY CALCULATION 0.10 10*3/uL Normal 0.00-0.20 [facility] Comment on above: Performed By: #### L [id number] #### [facility] ([facility]) [address] [place] [address] IMMATURE GRANULOCYTES/100 LEUKOCYTES IN BLOOD BY AUTOMATED COUNT 3.8 % High 0.0-1.0 [facility] Comment on above: Performed By: #### L [id number] #### [facility] ([facility]) [address] [place] [address] LYMPHOCYTES (10*3/UL) IN BLOOD BY CALCULATION 0.78 10*3/uL Low 1.20-4.00 [facility] Comment on above: Performed By: #### L [id number] #### [facility] ([facility]) [address] [place] [address] LYMPHOCYTES/100 LEUKOCYTES IN BLOOD BY AUTOMATED COUNT 30.0 % Normal 20.0-45.0 [facility] Comment on above: Performed By: #### L [id number] #### [facility] ([facility]) [address] [place] [address] MACROCYTES (PRESENCE) IN BLOOD BY LIGHT MICROSCOPY Slight Normal [facility] Comment on above: Performed By: #### L [id number] #### [facility] ([facility]) [address] [place] [address] MONOCYTES (10*3/UL) IN BLOOD BY CALCUATION 0.45 10*3/uL Normal 0.10-1.00 [facility] Comment on above: Performed By: #### L [id number] #### [facility] ([facility]) [address] [place] [address] MONOCYTES/100 LEUKOCYTES IN BLOOD BY AUTOMATED COUNT 17.3 % High 5.0-12.0 [facility] Comment on above: Performed By: #### L [id number] #### [facility] ([facility]) [address] [place] [address] NEUTROPHILS (10*3/UL) IN BLOOD BY CALCULATION 1.2 10*3/uL Low 1.6-7.6 [facility] Comment on above: Performed By: #### L [id number] #### [facility] ([facility]) [address] [place] [address] NEUTROPHILS/100 LEUKOCYTES IN BLOOD BY AUTOMATED COUNT 47.0 % Normal 40.0-72.0 [facility] Comment on above: Performed By: #### L [id number] #### [facility] ([facility]) [address] [place] [address] POIKILOCYTOSIS (PRESENCE) IN BLOOD BY LIGHT MICROSCOPY Slight Normal [facility] Comment on above: Performed By: #### L [id number] #### [facility] ([facility]) [address] [place] [address] POLYCHROMASIA IN BLOOD BY LIGHT MICROSCOPY Slight Normal [facility] Comment on above: Performed By: #### L [id number] #### [facility] ([facility]) [address] [place] [address] POCT GLUCOSE METER UNSOLICIT ED RESULTSon 11-13-2024 Glucose [Mass/Vol] 141 mg/dL High 70-105 [facility] Comment on above: Order Comment: Waive d Testing in the ED is performed under the ED CLIA certificate #[id number]. Result Comment: [email or web address] Performed By: #### L [id number] #### [facility] ([facility]) [address] [place] [address] Glucose [Mass/Vol] 156 mg/dL High 70-105 [facility] Comment on above: Order Comment: Waive d Testing in the ED is performed under the ED CLIA certificate #[id number]. Result Comment: kat [email or web address] Performed By: #### L [id number] #### [facility] ([facility]) [address] [place] [address] Glucose [Mass/Vol] 129 mg/dL High 70-105 [facility] Comment on above: Order Comment: Waive d Testing in the ED is performed under the ED CLIA certificate #[id number]. Result Comment: [email or web address] Performed By: #### L [id number] #### [facility] ([facility]) [address] [place] [address] Glucose [Mass/Vol] 139 mg/dL High 70-105 [facility] Comment on above: Order Comment: Waive d Testing in the ED is performed under the ED CLIA certificate #[id number]. Result Comment: [email or web address] Performed By: #### L [id number] #### [facility] ([facility]) [address] [place] [address] PROTEIN ELECTROPHORESIS, SER UMon 11-13-2024 Protein [Mass/Vol] 4.8 g/dL Low 6.0-8.3 [facility] Comment on above: Order Comment: Retim e per RN Kady S Performed By: #### L [id number] #### [facility] ([facility]) [address] [place] [address] PROTEIN FRACTION (INTERPRETATION) IN SER/PLAS BY ELECTROPHORESIS Please see attached report. [facility] Comment on above: Order Comment: Retim e per CHARIS Hillman S Performed By: #### L [id number] #### [facility] ([facility]) [address] [place] [address] 30on 11-12-2024 30 The patient is Moder [...] and behaviors that affect risk of falls Randolph fall precautions as indicated by assessment Educate [...] improved Outc (more content not included)... Normal [facility] 30 The patient is Moder ately Stable [...] injury: Assess patient frequently for physical needs Randolph fall precautions as indicated by assessment Problem: [...] symptoms for stability, deterioration, or improvement Normal [facility] ANAon 11-12-2024 CIPRIANO TITER <1:40 Normal <=1:40 [facility] Comment on above: Result Comment: Test performed using [employer] IFA CIPRIANO Hep-2 Test, a pre-standardized assay designed for the qualitative and semi-quantitative detection of antinuclear antibodies. Performed By: #### L [id number] #### [facility] ([facility]) [address] [place] [address] CBC WITH AUTO DIFFERENTIALon 11-12-2024 ERYTHROCYTE DISTRIBUTION WIDTH (RATIO) BY AUTOMATED COUNT Normal [facility] Comment on above: Result Comment: Unab le to calculate Performed By: #### L [id number] #### [facility] ([facility]) [address] [place] [address] ERYTHROCYTE MEAN CORPUSCULAR HEMOGLOBIN CONCENTRATION (G/DL) BY AUTOMATED 32.3 g/dL Normal 32.0-35.0 [facility] Comment on above: Performed By: #### L [id number] #### [facility] ([facility]) [address] [place] [address] Hematocrit (Bld) [Volume fraction] 25.4 % Low 36.0-45.0 [facility] Comment on above: Performed By: #### L [id number] #### [facility] [address] [place] [address] Hemoglobin (Bld) [Mass/Vol] 8.2 g/dL Low 12.0-15.0 [facility] Comment on above: Performed By: #### L [id number] #### [facility] ([facility]) [address] [place] [address] IMMATURE PLATELET FRACTION % 7.7 % High 0.8-6.3 [facility] Comment on above: Performed By: #### L [id number] #### [facility] ([facility]) [address] [place] [address] MCH (RBC) [Entitic mass] 35.0 pg High 27.0-33.0 [facility] Comment on above: Performed By: #### L [id number] #### [facility] ([facility]) [address] [place] [address] MCV (RBC) [Entitic vol] 108.5 fL High 82.0-98.0 [facility] Comment on above: Performed By: #### L [id number] #### [facility] ([facility]) [address] [place] [address] NRBC (PER 100 WBCS) BY AUTOMATED COUNT 4.7 % High 0 [facility] Comment on above: Performed By: #### L [id number] #### [facility] ([facility]) [address] [place] [address] PLATELETS (10*3/UL) IN BLOOD AUTOMATED COUNT 17 10*3/uL Invalid Interpretation Code 150-400 [facility] Comment on above: Performed By: #### L [id number] #### [facility] ([facility]) [address] [place] [address] RBC (Bld) [#/Vol] 2.34 10*6/uL Low 3.80-5.00 [facility] Comment on above: Performed By: #### L [id number] #### [facility] ([facility]) [address] [place] [address] WBC (Bld) [#/Vol] 2.32 10*3/uL Low 4.00-10.60 [facility] Comment on above: Performed By: #### L [id number] #### [facility] ([facility]) [address] [place] [address] HEPATITIS PANEL, ACUTEon HEPATITIS A VIRUS IGM AB PRESENCE IN SER/PLAS Non-Reactive Normal Nonreactive [facility] Comment on above: Performed By: #### L [id number] #### [facility] ([facility]) [address] [place] [address] HEPATITIS B VIRUS CORE AB (PRESENCE) IN SER/PLAS BY IMM Non-Reactive Normal Nonreactive [facility] Comment on above: Performed By: #### L [id number] #### [facility] ([facility]) [address] [place] [address] HEPATITIS B VIRUS SURFACE AG PRESENCE IN SERUM Non-Reactive Normal Nonreactive [facility] Comment on above: Performed By: #### L [id number] #### [facility] ([facility]) [address] [place] [address] HEPATITIS C VIRUS AB PRESENCE IN SERUM Non-Reactive Normal Nonreactive [facility] Comment on above: Performed By: #### L [id number] #### [facility] ([facility]) [address] [place] [address] HOMOCYSTEINE (CARDIO), FPIAo n 11-12-2024 HOMOCYSTEINE 20.5 umol/L High 0.0-15.0 [facility] Comment on above: Result Comment: Test Performed by [employer] [id number] [place] [address] - Released 11/12/2024 18:48 Performed By: #### L [id number] ####[employer] [id number] [place] [address] MANUAL DIFFERENTIALon 2024 ANISOCYTOSIS PRESENCE IN BLOOD BY LIGHT MICROSCOPY Moderate Normal [facility] Comment on above: Performed By: #### L [id number] #### [facility] ([facility]) [address] [place] [address] BASOPHILS (10*3/UL) IN BLOOD BY CALCULATION 0.00 10*3/uL Normal 0.00-0.20 [facility] Comment on above: Performed By: #### L [id number] #### [facility] ([facility]) [address] [place] [address] BASOPHILS/100 LEUKOCYTES IN BLOOD BY AUTOMATED COUNT 0.0 % Normal 0.0-1.0 [facility] Comment on above: Performed By: #### L [id number] #### [facility] ([facility]) [address] [place] [address] EOSINOPHILS (10*3/UL) IN BLOOD BY CALCULATION 0.03 10*3/uL Normal 0.00-0.50 [facility] Comment on above: Performed By: #### L [id number] #### [facility] ([facility]) [address] [place] [address] EOSINOPHILS/100 LEUKOCYTES IN BLOOD BY AUTOMATED COUNT 1.3 % Normal 0.0-6.0 [facility] Comment on above: Performed By: #### L [id number] #### [facility] ([facility]) [address] [place] [address] LYMPHOCYTES (10*3/UL) IN BLOOD BY CALCULATION 1.11 10*3/uL Low 1.20-4.00 [facility] Comment on above: Performed By: #### L [id number] #### [facility] ([facility]) [address] [place] [address] LYMPHOCYTES/100 LEUKOCYTES IN BLOOD BY AUTOMATED COUNT 48.0 % High 20.0-45.0 [facility] Comment on above: Performed By: #### L [id number] #### [facility] ([facility]) [address] [place] [address] MACROCYTES (PRESENCE) IN BLOOD BY LIGHT MICROSCOPY Moderate Normal [facility] Comment on above: Performed By: #### L [id number] #### [facility] ([facility]) [address] [place] [address] METAMYELOCYTES (10*3/UL) IN BLOOD BY CALCULATION 0.02 10*3/uL High 0.00 [facility] Comment on above: Performed By: #### L [id number] #### [facility] ([facility]) [address] [place] [address] METAMYELOCYTES/100 LEUKOCYTES IN BLOOD CELLAVISION 0.7 % High 0.0-0.0 [facility] Comment on above: Performed By: #### L [id number] #### [facility] ([facility]) [address] [place] [address] MONOCYTES (10*3/UL) IN BLOOD BY CALCUATION 0.14 10*3/uL Normal 0.10-1.00 [facility] Comment on above: Performed By: #### L [id number] #### [facility] ([facility]) [address] [place] [address] MONOCYTES/100 LEUKOCYTES IN BLOOD BY AUTOMATED COUNT 6.0 % Normal 5.0-12.0 [facility] Comment on above: Performed By: #### L [id number] #### [facility] ([facility]) [address] [place] [address] MYELOCYTES (10*3/UL) IN BLOOD BY CALCULATION 0.06 10*3/uL High 0.00 [facility] Comment on above: Performed By: #### L [id number] #### [facility] ([facility]) [address] [place] [address] MYELOCYTES/100 LEUKOCYTES IN BLOOD CELLAVISION 2.7 % High 0.0-0.0 [facility] Comment on above: Performed By: #### L [id number] #### [facility] ([facility]) [address] [place] [address] NEUTROPHILS (10*3/UL) IN BLOOD BY CALCULATION 1.0 10*3/uL Low 1.6-7.6 [facility] Comment on above: Performed By: #### L [id number] #### [facility] ([facility]) [address] [place] [address] NEUTROPHILS/100 LEUKOCYTES IN BLOOD BY AUTOMATED COUNT 41.3 % Normal 40.0-72.0 [facility] Comment on above: Performed By: #### L [id number] #### [facility] ([facility]) [address] [place] [address] NUCLEATED RED BLOOD CELLS IN BLOOD BY LIGHT MICROSCOPY Present Normal [facility] Comment on above: Performed By: #### L [id number] #### [facility] ([facility]) [address] [place] [address] PLASMA CELLS/100 LEUKOCYTES IN BLOOD 0 % Normal 0 [facility] Comment on above: Performed By: #### L [id number] #### [facility] ([facility]) [address] [place] [address] PLATELETS GIANT PRESENCE IN BLOOD BY LIGHT MICROSCOPY Present Normal [facility] Comment on above: Performed By: #### L [id number] #### [facility] ([facility]) [address] [place] [address] POIKILOCYTOSIS (PRESENCE) IN BLOOD BY LIGHT MICROSCOPY Slight Normal [facility] Comment on above: Performed By: #### L [id number] #### [facility] ([facility]) [address] [place] [address] POLYCHROMASIA IN BLOOD BY LIGHT MICROSCOPY Slight Normal [facility] Comment on above: Performed By: #### L [id number] #### [facility] ([facility]) [address] [place] [address] VARIANT LYMPHOCYTES (10*3/UL) IN BLOOD BY CALCULATION 0.00 10*3/uL Normal 0.00 [facility] Comment on above: Performed By: #### L [id number] #### [facility] ([facility]) [address] [place] [address] VARIANT LYMPHOCYTES/100 LEUKOCYTES IN BLOOD CELLAVISION 0.0 % Normal 0.0-0.0 [facility] Comment on above: Performed By: #### L [id number] #### [facility] [address] [place] [address] METHYLMALONIC ACID, SERUMon 11-12-2024 METHYLMALONIC ACID, S 3.04 umol/L High 0.00-0.40 [facility] Comment on above: Result Comment: Slight elevation [...] developed and its performance characteristics determined by [employer]. It has not been cleared or approved by the US Food and Drug Administration. This test was performed in a CLIA certified laboratory and is intended for clinical purposes. Performed By: [facility] [address] [place] [address] [employer] T[employer] Machine Mechanic: Cal Delgado MD, PhD CLIA Number: [id number] Performed By: #### L [id number] #### [facility] ([facility]) [address] [place] [address] PARVOVIRUS B19 ANTIBODY, IGG AND IGMon 11-12-2024 PARVOVIRUS B19 IGG ANTIBODY 7.31 IV High <=0.90 [facility] Comment on above: Result Comment: INTE RPRETIVE [...] the same time. Performed By: #### L [id number] #### [facility] ([facility]) [address] [place] [address] PARVOVIRUS B19 IGM ANTIBODY 0.42 IV Normal <=0.89 [facility] Comment on above: Result Comment: INTE RPRETIVE [...] levels of specific IgM antibodies. Performed By: [facility] [address] [place] [address] [employer] Machine Mechanic: Cal Delgado MD, PhD CLIA Number: [id number] Performed By: #### L [id number] #### [facility] ([facility]) [address] [place] [address] POCT GLUCOSE METER UNSOLICIT ED RESULTSon 11-12-2024 Glucose [Mass/Vol] 156 mg/dL High 70-105 [facility] Comment on above: Order Comment: Waive d Testing in the ED is performed under the ED CLIA certificate #[id number]. Result Comment: fbar aka Performed By: #### L [id number] #### [facility] ([facility]) [address] [place] [address] Glucose [Mass/Vol] 144 mg/dL High 70-105 [facility] Comment on above: Order Comment: See B one Marrow Exam Report Result Comment: smap e Performed By: #### L [id number] #### [facility] [address] [place] [address] Glucose [Mass/Vol] 149 mg/dL High 70-105 [facility] Comment on above: Order Comment: Waive d Testing in the ED is performed under the ED CLIA certificate #[id number]. Result Comment: dnap [email or web address] Performed By: #### L [id number] #### [facility] ([facility]) [address] [place] [address] Glucose [Mass/Vol] 135 mg/dL High 70-105 [facility] Comment on above: Order Comment: Waive d Testing in the ED is performed under the ED CLIA certificate #[id number]. Result Comment: dnap ier3 Performed By: #### L [id number] #### [facility] ([facility]) [address] [place] [address] T3, FREEon 11-12-2024 TRIIODOTHYRONINE (T3) FREE (PG/ML) IN SER/PLAS 3.0 pg/mL Normal 2.5-3.9 [facility] Comment on above: Performed By: #### L [id number] #### [facility] ([facility]) [address] [place] [address] 30on 11-11-2024 30 The patient is Moder ately Stable - Low risk of patient condition declining or worsening The patient's goals for the shift include Rest The clinical goals for the shift include VSS safety Normal [facility] 30 The patient is Moder ately Stable - Low risk of patient condition declining or worsening The patient's goals for the shift include rest The clinical goals for the shift include VSS Normal [facility] CBC WITH AUTO DIFFERENTIALon 11-11-2024 ERYTHROCYTE DISTRIBUTION WIDTH (RATIO) BY AUTOMATED COUNT Normal [facility] Comment on above: Result Comment: Unab le to calculate Performed By: #### L [id number] #### [facility] ([facility]) [address] [place] [address] ERYTHROCYTE MEAN CORPUSCULAR HEMOGLOBIN CONCENTRATION (G/DL) BY AUTOMATED 32.3 g/dL Normal 32.0-35.0 [facility] Comment on above: Performed By: #### L [id number] #### [facility] ([facility]) [address] [address] Hematocrit (Bld) [Volume fraction] 25.4 % Low 36.0-45.0 [facility] Comment on above: Performed By: #### L [id number] #### [facility] ([facility]) [address] [place] [address] Hemoglobin (Bld) [Mass/Vol] 8.2 g/dL Low 12.0-15.0 [facility] Comment on above: Performed By: #### L [id number] #### [facility] ([facility]) [address] [place] [address] IMMATURE PLATELET FRACTION % 7.8 % High 0.8-6.3 [facility] Comment on above: Performed By: #### L [id number] #### [facility] ([facility]) [address] [place] [address] MCH (RBC) [Entitic mass] 34.9 pg High 27.0-33.0 [facility] Comment on above: Performed By: #### L [id number] #### [facility] ([facility]) [address] [place] [address] MCV (RBC) [Entitic vol] 108.1 fL High 82.0-98.0 [facility] Comment on above: Performed By: #### L [id number] #### [facility] ([facility]) [address] [place] [address] NRBC (PER 100 WBCS) BY AUTOMATED COUNT 4.2 % High 0 [facility] Comment on above: Performed By: #### L [id number] #### [facility] ([facility]) [address] [facility] [place] [address] PLATELETS (10*3/UL) IN BLOOD AUTOMATED COUNT 19 10*3/uL Invalid Interpretation Code 150-400 [facility] Comment on above: Performed By: #### L [id number] #### [facility] [address] [place] [address] RBC (Bld) [#/Vol] 2.35 10*6/uL Low 3.80-5.00 [facility] Comment on above: Performed By: #### L [id number] #### [facility] (AKER) [address] [place] [address] WBC (Bld) [#/Vol] 2.87 10*3/uL Low 4.00-10.60 [facility] Comment on above: Performed By: #### L [id number] #### [facility] ([facility]) [address] [facility] [place] [address] CONSULTon 11-11-2024 CONSULT ------ -- Attestation signed by Haroldo Brown MD at 11/11/2024 6:50 PM I performed a history and physical examination of the patient and discussed his management with the resident. I reviewed the resident???s note and agree with the documented findings and plan of care. Aaron Brown MD [facility] Hematology and Oncology at [facility] [address] [place] [address] -- HEMATOLOGY and MEDICAL ONCOLOGY: [facility] MD Dr. Юлия Mehta MD Patient name: Andreia Thomas Patient Today's Date and Time: 11/11/2024, 3:09 PM Admission Date: 11/09/2024 Impression: New onset pancytopenia Peripheral smear showed pancyopenia, LDH high, Haptoglobin low, bili was slightly elevated at [facility], normal here. Altered mental status, resolved here Macrocytosis Hypothyroidism DM2 Anxiety Recommendations: Bone marrow biopsy done yesterday, initial eval did not show schistocytes, blasts or promyelocytes. LDH high, Haptoglobin is low, retic count is normal, Sneha negative. [facility] flow cytometry, cold agglutinins and myeloma work [...] these hours, Please contact Hematology/Oncology Fellow through [facility] Chat first For Hematology Oncology needs on weekends and after hours, please page the on-call fellow through the hospital circle cutting saw operator. Subjective Reason for consultation / Chief complaint: Pancytopenia History of Present Illness Andreia Thomas is a 59 y.o.-year-old female with PMH of DM2, dyslipidemia, hypothyroidism and anxiety who was admitted to [facility] due to confusion and weakness for the past 4-6 weeks. Spouse at bedside reports that she had been confused ON and OFF, although she is completely alert and oriented today. CT Head at [facility] was unremarkable, CT A/P was unremarkable. She was noted to have pancytopenia with WBC 2.2, Hb 5.3 and PLT 31, for which she was transferred to [facility]. Her blood work up available from [...] Not o (more content not included)... Normal [facility] COPPER, SERUMon 11-11-2024 COPPER 129.2 ug/dL Normal 80.0-155.0 [facility] Comment on above: Result Comment: INTE RPRETIVE [...] developed and its performance characteristics determined by [employer]. It has not been cleared or approved by the [place] Food and Drug Administration. This test was performed in a CLIA certified laboratory and is intended for clinical purposes. Performed By: [facility] [address] [place] [address] [employer] T[employer] Machine Mechanic: Cal Delgado MD, PhD CLIA Number: [id number] Performed By: #### L [id number] #### [facility] ([facility]) [address] [place] [address] MANUAL DIFFERENTIALon 2024 ANISOCYTOSIS PRESENCE IN BLOOD BY LIGHT MICROSCOPY Moderate Normal [facility] Comment on above: Performed By: #### L [id number] ####[facility] ([facility] [place] [address] BASOPHILS (10*3/UL) IN BLOOD BY CALCULATION 0.01 10*3/uL Normal 0.00-0.20 [facility] Comment on above: Performed By: #### L [id number] ####[facility] ([facility])[address] [place] [address] BASOPHILS/100 LEUKOCYTES IN BLOOD BY AUTOMATED COUNT 0.3 % Normal 0.0-1.0 [facility] Comment on above: Performed By: #### L [id number] ####[facility] ([facility])[address] [place] [address] EOSINOPHILS (10*3/UL) IN BLOOD BY CALCULATION 0.01 10*3/uL Normal 0.00-0.50 [facility] Comment on above: Performed By: #### L [id number] ####[facility] ([facility]ER)[address] [place] [address] EOSINOPHILS/100 LEUKOCYTES IN BLOOD BY AUTOMATED COUNT 0.3 % Normal 0.0-6.0 [facility] Comment on above: Performed By: #### L [id number] ####[facility] ([facility])[address] [place] [address] IMMATURE GRANULOCYTES (10*3/UL) IN BLOOD BY CALCULATION 0.08 10*3/uL Normal 0.00-0.20 [facility] Comment on above: Performed By: #### L [id number] ####[facility] ([facility])[address] [place] [address] IMMATURE GRANULOCYTES/100 LEUKOCYTES IN BLOOD BY AUTOMATED COUNT 2.8 % High 0.0-1.0 [facility] Comment on above: Performed By: #### L [id number] ####[facility] ([facility])[address] [place] [address] LYMPHOCYTES (10*3/UL) IN BLOOD BY CALCULATION 1.33 10*3/uL Normal 1.20-4.00 [facility] Comment on above: Performed By: #### L [id number] ####[facility] ([facility])[address] [place] [address] LYMPHOCYTES/100 LEUKOCYTES IN BLOOD BY AUTOMATED COUNT 46.3 % High 20.0-45.0 [facility] Comment on above: Performed By: #### L [id number] ####[facility] ([facility])[address] [place] [address] MONOCYTES (10*3/UL) IN BLOOD BY CALCUATION 0.37 10*3/uL Normal 0.10-1.00 [facility] Comment on above: Performed By: #### L [id number] ####[facility] ([facility])[address] [place] [address] MONOCYTES/100 LEUKOCYTES IN BLOOD BY AUTOMATED COUNT 12.9 % High 5.0-12.0 [facility] Comment on above: Performed By: #### L [id number] ####[facility] ([facility])[address] [place] [address] NEUTROPHILS (10*3/UL) IN BLOOD BY CALCULATION 1.1 10*3/uL Low 1.6-7.6 [facility] Comment on above: Performed By: #### L [id number] ####[facility] ([facility])[address] [facility] [place] [address] NEUTROPHILS/100 LEUKOCYTES IN BLOOD BY AUTOMATED COUNT 37.4 % Low 40.0-72.0 [facility] Comment on above: Performed By: #### L [id number] ####[facility] ([facility])[address] [facility] [place] [address] POIKILOCYTOSIS (PRESENCE) IN BLOOD BY LIGHT MICROSCOPY Slight Normal [facility] Comment on above: Performed By: #### L [id number] ####[facility] ([facility])[address] [place] [address] POLYCHROMASIA IN BLOOD BY LIGHT MICROSCOPY Slight Normal [facility] Comment on above: Performed By: #### L [id number] ####[facility] ([facility])[address] [facility] [place] [address] POCT GLUCOSE METER UNSOLICIT ED RESULTSon 11-11-2024 Glucose [Mass/Vol] 190 mg/dL High 70-105 [facility] Comment on above: Order Comment: Waive d Testing in the ED is performed under the ED CLIA certificate #[id number]. Result Comment: judy pedro Performed By: #### L [id number] ####[facility] ([facility])[address] [facility] [place] [address] Glucose [Mass/Vol] 144 mg/dL High 70-105 [facility] Comment on above: Order Comment: Waive d Testing in the ED is performed under the ED CLIA certificate #[id number]. Result Comment: sara soto Performed By: #### L [id number] #### [facility] ([facility]) [address] [place] [place] [address] Glucose [Mass/Vol] 133 mg/dL High 70-105 [facility] Comment on above: Order Comment: See B one Marrow Exam Report Result Comment: sara soto Performed By: #### L [id number] #### [facility] ([facility]) [address] [place] [address] Glucose [Mass/Vol] 115 mg/dL High 70-105 [facility] Comment on above: Order Comment: Waive d Testing in the ED is performed under the ED CLIA certificate #[id number]. Result Comment: sara soto Performed By: #### L [id number] ####[facility] ([facility])[address] [place] [address] 30on 11-10-2024 30 Problem: Infection - Adult [...] for the shift include VSS, safety Normal [facility] 30 The patient is Moder ately Stable - Low risk of patient condition declining or worsening The patient's goals for the shift include rest The clinical goals for the shift include VSS, safety Normal [facility] ADAMTS 13 ACTIVITYon 025 [id number] ACTIVITY 53 % Low >=61 [facility] Comment on above: Result Comment: INTE RPRETIVE INFORMATION: [id number] Activity [id number] levels of less than 10 percent may be associated with either inherited (Wilmer-Felipe Syndrome) or acquired thrombotic thrombocytopenic purpura (TTP). A variety of medical conditions may result in a mild to moderate deficiency of HNXRMD45 activity. Recent plasma exchange therapy may raise the observed TYOPML52 activity. This test was developed and its performance characteristics determined by [employer]. It has not been cleared or approved by the [place] Food and Drug Administration. This test was performed in a CLIA certified laboratory and is intended for clinical purposes. Performed By: [facility] [address] [place] [address] [employer] Teller Machine Mechanic: Cal Delgado MD, PhD CLIA Number: [id number] Performed By: #### L [id number] #### [facility] ([facility]) [address] [facility] [address] APTTon 11-10-2024 ACTIVATED PARTIAL THROMBOPLASTIN TIME IN PPP BY COAGULATION ASSAY 32.5 Seconds Normal 25.0-35.0 [facility] Comment on above: Result Comment: Clin ical significance of the APTT is questionable in the presence of heparin. Performed By: #### L [id number] ####[facility] ([facility])[address] [place] [address] BASIC METABOLIC PANELon 10-26 Anion gap [Moles/Vol] 5 mmol/L Low 7-20 [facility] Comment on above: Performed By: #### L [id number] #### [facility] [address] [place] [place] [address] Calcium [Mass/Vol] 8.8 mg/dL Normal 8.6-10.3 [facility] Comment on above: Performed By: #### L [id number] #### [facility] [address] [place] [address] Chloride [Moles/Vol] 109 mmol/L High 98-107 [facility] Comment on above: Performed By: #### L [id number] #### [facility] [address] [place] [address] CO2 [Moles/Vol] 33 mmol/L High 21-31 [facility] Comment on above: Performed By: #### L [id number] #### [facility] [address] [facility] [place] [address] Creatinine [Mass/Vol] 0.76 mg/dL Normal 0.60-1.20 [facility] Comment on above: Performed By: #### L [id number] #### [facility] ([facility]) [address] [address] GLOMERULAR FILTRATION RATE ML/MIN/1.73 SQ M.PREDICTED 89.1 mL/min/1.73m*2 Normal >60.0 [facility] Comment on above: Result Comment: The [facility]???s estimated glomerular filtration rate (eGFR) will no [...] group of individuals. Performed By: #### L [id number] #### [facility] ([facility]) [address] [place] [address] Glucose [Mass/Vol] 92 mg/dL Normal 70-100 [facility] Comment on above: Performed By: #### L [id number] #### [facility] ([facility]) [address] [place] [address] Potassium [Moles/Vol] 3.6 mmol/L Normal 3.5-5.1 [facility] Comment on above: Performed By: #### L [id number] #### [facility] ([facility]) [address] [place] [address] Sodium [Moles/Vol] 143 mmol/L Normal 136-145 [facility] Comment on above: Performed By: #### L [id number] #### [facility] ([facility]) [address] [facility] [place] [address] Urea nitrogen [Mass/Vol] 20 mg/dL Normal 7-25 [facility] Comment on above: Performed By: #### L [id number] #### [facility] ([facility]) [address] [facility] [place] [address] UREA NITROGEN/CREATININE (MASS RATIO) IN SER/PLAS 26.3 Normal [facility] Comment on above: Performed By: #### L [id number] #### [facility] CENTER) [address] [place] [address] BONE MARROW CELL DIFFERENTIA Dayo 11-10-2024 BM TOTAL CELLS COUNTED Normal [facility] Comment on above: Order Comment: See B one Marrow Exam Report Performed By: #### L [id number] #### [facility] ([facility]) [address] [place] [address] BONE MARROW EXAMon 5 LAB AP ADDENDUM 1 Normal [facility] Comment on above: Result Comment: Anci llary studies were completed at [facility]: Chromosomes, hematologic, bone marrow: - 46,XX[20]. 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 Addendum electronically signed by Krysten Foster MD on 11/28/2024 at 11:50 AM Performed By: #### L [id number] ####[facility] ([facility])[address] [place] [address] LAB AP ADDENDUM 3 Normal [facility] Comment on above: Result Comment: Parv ovirus immunostains completed on the aspirate clot section and core biopsy are negative. Addendum electronically signed by Krysten Foster MD on 12/05/2024 at 3:01 PM Performed By: #### L [id number] ####[facility] [facility] [place] [address] LAB AP ANCILLARY RESULTS Normal [facility] Comment on above: Result Comment: Emily alvarez studies were completed at [facility]: Chromosomes, hematologic, bone marrow: - Pending. Performed By: #### L [id number] ####[facility] ([facility])[address] [facility] [place] [address] LAB AP ASPIRATE SMEAR Normal [facility] Comment on above: Result Comment: The aspirate smears are adequately spiculate. The fgcftpf-au-ngbcpmgmj ratio is decreased. Cells of the myeloid [...] (500 cells counted). Performed By: #### L [id number] ####[facility] ([facility])[address] [facility] [place] [address] LAB AP ASR DISCLAIMER The interpretation of [...] Clinical Laboratory Improvement Amendments of 1998. Normal [facility] Comment on above: Performed By: #### L [id number] ####[facility] ([facility])[address] [facility] [place] [address] LAB AP CASE REPORT Normal [facility] Comment on above: Result Comment: Bone Marrow Case: [id number] Authorizing Provider: Hal Bajwa MD Collected: 11/10/2024 1300 Ordering Location: [address] Urology Received: 11/10/2024 1447 Pathologist: Krysten Foster MD Specimens: A) - Bone Marrow Clot B) - Bone Marrow Biopsy C) - Bone Marrow Aspirate Performed By: #### L [id number] ####[facility] (BEAKER)[address] [place] [address] LAB AP CBC AND DIFFERENTIAL Normal [facility] Comment on above: Result Comment: Comp lete [...] or platelet clumping. Performed By: #### L [id number] ####[facility] (BEAKER)[address] [place] [address] LAB AP CLINICAL INFORMATION Order Diagnoses Normal [facility] Comment on above: Result Comment: D61. 818 - Pancytopenia (CMS/HCC) [ICD-10-CM] Performed By: #### L [id number] ####[facility] (BEAKER)[address] [place] [address] LAB AP CLOT SECTION Normal [facility] Comment on above: Result Comment: The aspirate clot section reveals adequate marrow particles. Marrow cellularity and composition are similar to that identified in the core biopsy. Performed By: #### L [id number] ####[facility] ([facility])[address] [place] [address] LAB AP CORE BIOPSY Normal [facility] Comment on above: Result Comment: The fragmented core biopsy reveals 1.6 cm of evaluable marrow with mild aspiration artifact. Marrow cellularity approximates 90%, markedly cellular for age. There is relative erythroid hyperplasia with dysplastic morphology. Megakaryocytes appear mildly increased in number with occasional loose clusters; subset shows atypical morphology. Performed By: #### L [id number] ####[facility] ([facility])[address] 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 OncoHeme NGS and karyotype evaluations are pending; results will be reported in an addendum. Performed By: #### L [id number] ####[facility] ([facility])[address] [facility] [place] [address] LAB AP FLOW CYTOMETRY SUMMARY Normal [facility] Comment on above: Result Comment: Flow cytometry studies were completed at [facility]: Bone marrow, flow cytometric immunophenotyping: - Normal immunophenotyping results. No monotypic B-cell population or increase in blasts identified. Performed By: #### L [id number] ####[facility] ([facility])[address] [place] [address] LAB AP GROSS DESCRIPTION Normal [facility] Comment on above: Result Comment: A. B [...] stained for iron. Performed By: #### L [id number] ####[facility] ([facility])[address] [facility] [place] [address] LAB AP REPORT FINAL DIAGNOSIS NARRATIVE Normal [facility] Comment on above: Result Comment: A-C. Bone marrow, aspirate smears, aspirate clot section, core biopsy and peripheral blood smear: - Hypercellular bone marrow for age with erythroid predominance and trilineage dysplasia; no increase in blasts. - Mildly increased storage iron; ring sideroblasts present (5% of erythroid precursors). - See comment. Performed By: #### L [id number] ####[facility] ([facility])[address] [place] [address] LAB AP SPECIAL STAINS Normal [facility] Comment on above: Result Comment: Iron stains were completed on the aspirate clot section, core biopsy and aspirate smear. Storage iron is mildly increased; few ring sideroblasts are identified (5% of erythroid precursors). Performed By: #### L [id number] ####[facility] ([facility])[address] [place] [address] CBCon 11-10-2024 ERYTHROCYTE DISTRIBUTION WIDTH (RATIO) BY AUTOMATED COUNT Normal [facility] Comment on above: Result Comment: Unab le to calculate Performed By: #### L [id number] #### [facility] ([facility]) [address] [place] [address] ERYTHROCYTE MEAN CORPUSCULAR HEMOGLOBIN CONCENTRATION (G/DL) BY AUTOMATED 33.6 g/dL Normal 32.0-35.0 [facility] Comment on above: Performed By: #### L [id number] #### [facility] ([facility]) [address] [place] [address] Hematocrit (Bld) [Volume fraction] 25.9 % Low 36.0-45.0 [facility] Comment on above: Performed By: #### L [id number] #### [facility] ([facility]) [address] [place] [address] Hemoglobin (Bld) [Mass/Vol] 8.7 g/dL Low 12.0-15.0 [facility] Comment on above: Performed By: #### L [id number] #### [facility] ([facility]) [address] [place] [address] IMMATURE PLATELET FRACTION % 7.4 % High 0.8-6.3 [facility] Comment on above: Performed By: #### L [id number] #### [facility] ([facility]) [address] [place] [address] MCH (RBC) [Entitic mass] 36.0 pg High 27.0-33.0 [facility] Comment on above: Performed By: #### L [id number] #### [facility] ([facility]) [address] [place] [address] MCV (RBC) [Entitic vol] 107.0 fL High 82.0-98.0 [facility] Comment on above: Performed By: #### L [id number] #### [facility] ([facility]) [address] [place] [address] PLATELETS (10*3/UL) IN BLOOD AUTOMATED COUNT 24 10*3/uL Low 150-400 [facility] Comment on above: Performed By: #### L [id number] #### [facility] ([facility]) [address] [place] [address] RBC (Bld) [#/Vol] 2.42 10*6/uL Low 3.80-5.00 [facility] Comment on above: Performed By: #### L [id number] #### [facility] ([facility]) [address] [place] [address] WBC (Bld) [#/Vol] 3.48 10*3/uL Low 4.00-10.60 [facility] Comment on above: Performed By: #### L [id number] #### [facility] ([facility]) [address] [place] [address] CONSULTon 11-10-2024 CONSULT ------ -- Attestation signed [...] Comments: Patient is a 59-year-old admitted in [place] since Wednesday with pancytopenia , mild neutropenia at 1400 and (confusion which currently is fully resolved) Patients records from [place] is currently pending Thereby the tempo of [...] high unclear if she was repleted in [place] Will add a comprehensive workup not limited to consumptive disorders, production disorders( bone marrow ) and peripheral destruction Independently with LDH elevated and haptoglobin reduced and bilirubin normal she did have Sneha which was negative,. We will expand that workup to evaluate for Sneha negative hemolysis and PNH. Ferritin was normal thereby ruling out HLH Will get scans from [place]. Will add CT of the chest Reticulocyte count added as well No evidence of schistocytes on smear and personally discussed with pathology As data unfold for recommendations will be made Patient's PT marginal and fibrinogen and PTT normal as well Patient seen for the first time today after transfer from [place] and appreciate radiology pathology hospitalists for expeditious workup which is currently underway . We will Follow along Юлия Starks MD -- HEMATOLOGY and MEDICAL ONCOLOGY: [facility] MD Dr. Юлия Mehta MD Patient name: Andreia Thomas Patient Today's Date and Time: 11/10/2024, 11:08 AM Admission Date: 11/09/2024 Impression: New onset pancytopenia Peripheral smear showed pancyopenia, LDH high, Haptoglobin low, bili was slightly elevated at H, normal here. Altered mental status, resolved here [...] these hours, Please contact Hematology/Oncology Fellow through [facility] Chat first For Hematology Oncology needs on weekends and after hours, please page the on-call fellow through the hospital circle cutting saw operator. Subjective Reason for consultation / Chief complaint: Pancytopenia History of Present Illness Andreia Thomas is a 59 y.o.-year-old female with PMH of DM2, dyslipidemia, hypothyroidism and anxiety who was admitted to [facility] due to confusion and weakness for the past 4-6 weeks. Spouse at bedside reports that she had been confused ON and OFF, although she is completely alert and oriented today. CT Head at [facility] was unremarkable, CT A/P was unremarkable. She was noted to have pancytopenia with WBC 2.2, Hb 5.3 and PLT 31, for which she was transferred to [facility]. Her blood work up available from [...] Medications: Scheduled: (more content not included)... Normal [facility] CREATININE, URINE, RANDOMon 11-10-2024 Creatinine (U) [Mass/Vol] 142.0 mg/dL Normal 26-299 [facility] Comment on above: Performed By: #### L [id number] #### [facility] ([facility]ER) [address] [place] [address] CT CHEST W IV CONTRASTon CT CHEST [...] Brothers MD. Not Vldtd Invalid Interpretation Code [facility] FERRITINon 11-10-2024 FERRITIN (NG/ML) IN SER/PLAS 156.0 ng/mL Normal 11.0-307.0 [facility] Comment on above: Performed By: #### L [id number] ####[facility] ([facility] [place] [address] FIBRINOGENon 11-10-2024 Magnesium [Mass/Vol] 259 mg/dL Normal 150-425 [facility] Comment on above: Performed By: #### L [id number] #### [facility] ([facility]) [address] [place] [address] FOLATEon 11-10-2024 FOLATE (NG/ML) IN SER/PLAS 10.24 ng/mL Normal 6.6-1000 [facility] Comment on above: Performed By: #### L [id number] #### [facility] ([facility]) [address] [place] [address] IRON AND TIBCon 11-10-2024 IRON (UG/DL) IN SER/PLAS 24 ug/dL Low 50-212 [facility] Comment on above: Performed By: #### L [id number] #### [facility] ([facility]) [address] [place] [address] IRON BINDING CAPACITY (UG/DL) IN SER/PLAS 247 ug/dL Low 250-450 [facility] Comment on above: Performed By: #### L [id number] #### [facility] ([facility]) [address] [place] [address] IRON BINDING CAPACITY.UNSATURATE D (UG/DL) IN SER/PLAS 223.0 ug/dL Normal 155.0-355.0 [facility] Comment on above: Performed By: #### L [id number] #### [facility] ([facility]) [address] [place] [address] IRON SATURATION (%) IN SER/PLAS 10 % Low 20-50 [facility] Comment on above: Performed By: #### L [id number] #### [facility] [address] [place] [address] LACTATE DEHYDROGENASEon 10-26 LACTATE DEHYDROGENASE (U/L) IN SER/PLAS BY LAC->PYR RXN 3489 U/L High 140-271 [facility] Comment on above: Performed By: #### L [id number] #### [facility] ([facility]) [address] [facility] [place] [address] POCT GLUCOSE METER UNSOLICIT ED RESULTSon 11-10-2024 Glucose [Mass/Vol] 156 mg/dL High 70-105 [facility] Comment on above: Order Comment: Waive d Testing in the ED is performed under the ED CLIA certificate #[id number]. Result Comment: [email or web address] Performed By: #### L [id number] ####[facility] ([facility])[address] [facility] [place] [address] Glucose [Mass/Vol] 125 mg/dL High 70-105 [facility] Comment on above: Order Comment: Waive d Testing in the ED is performed under the ED CLIA certificate #[id number]. Result Comment: [email or web address] Performed By: #### L [id number] #### [facility] ([facility]) [address] [place] [place] [address] Glucose [Mass/Vol] 105 mg/dL Normal 70-105 [facility] Comment on above: Order Comment: Waive d Testing in the ED is performed under the ED CLIA certificate #[id number]. Result Comment: [email or web address] Performed By: #### L [id number] #### [facility] ([email or web address]) [address] [place] [address] Glucose [Mass/Vol] 108 mg/dL High 70-105 [facility] Comment on above: Order Comment: Waive d Testing in the ED is performed under the ED CLIA certificate #[id number]. Result Comment: [email or web address] Performed By: #### L [id number] #### [facility] ([facility]) [address] [place] [address] PROTEIN, URINE, RANDOMon Protein (U) [Mass/Vol] 14.7 mg/dL Normal [facility] Comment on above: Result Comment: Ther e are no established reference values for random urine specimens. Performed By: #### L [id number] #### [facility] ([facility]) [address] [place] [address] RETICULOCYTE PANELon 025 HEMOGLOBIN (PG) IN RETICULOCYTES 37.6 pg High 28.0-36.0 [facility] Comment on above: Performed By: #### L [id number] #### [facility] ([facility]) [address] [place] [address] IMMATURE RETICULOCYTE FRACTION (%) 22.4 % High 2-16 [facility] Comment on above: Performed By: #### L [id number] #### [facility] ([facility]) [address] [place] [address] RETICULOCYTES (10*6/UL) IN BLOOD 0.0425 10*6/uL Normal 0.0250-0.100 0 [facility] Comment on above: Performed By: #### L [id number] #### [facility] ([facility]) [address] [place] [address] Reticulocytes/100 RBC (Bld) 1.75 % Normal 0.50-1.80 [facility] Comment on above: Performed By: #### L [id number] #### [facility] ([facility]) [address] [place] [address] URINALYSIS WITH REFLEX CULTU REon 11-10-2024 BILIRUBIN, TOTAL PRESENCE IN URINE Negative Normal Negative [facility] Comment on above: Order Comment: Micro scopics not performed on urines with negative chemical reactions unless requested on original order. Performed By: #### L [id number] #### [facility] ([facility]) [address] [place] [address] Clarity (U) Clear Normal Clear [facility] Comment on above: Order Comment: Micro scopics not performed on urines with negative chemical reactions unless requested on original order. Performed By: #### L [id number] #### [facility] ([facility]) [address] [place] [address] Color (U) Yellow Normal Colorless, Yellow, Light-Yellow [facility] Comment on above: Order Comment: Micro scopics not performed on urines with negative chemical reactions unless requested on original order. Performed By: #### L [id number] #### [facility] ([facility]) [address] [place] [address] GLUCOSE (MG/DL) IN URINE Normal Normal Normal [facility] Comment on above: Order Comment: Micro scopics not performed on urines with negative chemical reactions unless requested on original order. Performed By: #### L [id number] #### [facility] ([facility]) [address] [place] [address] HEMOGLOBIN PRESENCE IN URINE Negative Normal Negative [facility] Comment on above: Order Comment: Micro scopics not performed on urines with negative chemical reactions unless requested on original order. Performed By: #### L [id number] #### [facility] ([facility]) [address] [place] [address] Ketones Ql (U) Negative Normal Negative [facility] Comment on above: Order Comment: Micro scopics not performed on urines with negative chemical reactions unless requested on original order. Performed By: #### L [id number] #### [facility] ([facility]) [address] [place] [address] LEUKOCYTE ESTERASE PRESENCE IN URINE BY TEST STRIP Negative Normal Negative [facility] Comment on above: Order Comment: Micro scopics not performed on urines with negative chemical reactions unless requested on original order. Performed By: #### L [id number] #### [facility] ([facility]) [address] [place] [address] NITRITE PRESENCE IN URINE Negative Normal Negative [facility] Comment on above: Order Comment: Micro scopics not performed on urines with negative chemical reactions unless requested on original order. Performed By: #### L [id number] #### [facility] ([facility]) [address] [place] [address] pH (U) 6.0 [pH] Normal 5.0-8.0 [facility] Comment on above: Order Comment: Micro scopics not performed on urines with negative chemical reactions unless requested on original order. Performed By: #### L [id number] #### [facility] ([facility]) [address] [place] [address] Protein (U) [Mass/Vol] Negative Normal Negative [facility] Comment on above: Order Comment: Micro scopics not performed on urines with negative chemical reactions unless requested on original order. Performed By: #### L [id number] #### [facility] ([facility]) [address] [address] Specific gravity (U) [Rel density] >1.050 High 1.010-1.030 [facility] Comment on above: Order Comment: Micro scopics not performed on urines with negative chemical reactions unless requested on original order. Performed By: #### L [id number] #### [facility] ([facility]) [address] [place] [address] UROBILINOGEN (MG/DL) IN URINE Normal Normal Normal [facility] Comment on above: Order Comment: Micro scopics not performed on urines with negative chemical reactions unless requested on original order. Performed By: #### L [id number] #### [facility] ([facility]) [address] [place] [address] 30on 11-09-2024 30 The patient is Moder ately Stable - Low risk of patient condition declining or worsening The patient's goals for the shift include feel better The clinical goals for the shift include Normal [facility] AMMONIAon 11-09-2024 AMMONIA (UMOL/L) IN PLASMA 31 umol/L Normal 18-72 [facility] Comment on above: Performed By: #### L [id number] ####[facility] ([facility])[address] [facility] [address] ANTI C3 DATon 11-09-2024 ANTI C3 CHARLIE Negative Normal [facility] Comment on above: Performed By: #### L [id number] #### [facility] ([facility]) [address] [place] [address] ANTI IGG DATon 11-09-2024 ANTI IGG CHARLIE Negative Normal [facility] Comment on above: Performed By: #### L [id number] #### [facility] ([facility]) [address] [place] [address] ANTIBODY IDENTIFICATIONon ANTIBODY IDENTIFICATION E Normal [facility] Comment on above: Performed By: #### L [id number] #### [facility] ([facility]) [address] [place] [address] BLOOD CULTUREon 11-09-2024 Bacteria identified Cx Nom (Bld) No growth at 5 days Normal [facility] Comment on above: Performed By: #### L [id number] ####[facility] ([facility])[address] [place] [address] Order Comment: Waive d Testing in the ED is performed under the ED CLIA certificate #[id number]. Performed By: #### L [id number] #### [facility] ([facility]) [address] [place] [address] CBC WITH AUTO DIFFERENTIALon 11-09-2024 ERYTHROCYTE MEAN CORPUSCULAR HEMOGLOBIN CONCENTRATION (G/DL) BY AUTOMATED 33.9 g/dL Normal 32.0-35.0 [facility] Comment on above: Performed By: #### L [id number] #### [facility] ([facility]) [address] [place] [address] Hematocrit (Bld) [Volume fraction] 24.8 % Low 36.0-45.0 [facility] Comment on above: Performed By: #### L [id number] #### [facility] ([facility]) [address] [place] [address] Hemoglobin (Bld) [Mass/Vol] 8.4 g/dL Low 12.0-15.0 [facility] Comment on above: Performed By: #### L [id number] #### [facility] ([facility]) [address] [place] [address] IMMATURE PLATELET FRACTION % 8.0 % High 0.8-6.3 [facility] Comment on above: Performed By: #### L [id number] #### [facility] ([facility]) [address] [place] [address] MCH (RBC) [Entitic mass] 35.1 pg High 27.0-33.0 [facility] Comment on above: Performed By: #### L [id number] #### [facility] ([facility]) [address] [place] [address] MCV (RBC) [Entitic vol] 103.8 fL High 82.0-98.0 [facility] Comment on above: Performed By: #### L [id number] #### [facility] ([facility]) [address] [place] [address] NRBC (PER 100 WBCS) BY AUTOMATED COUNT 2.9 % High 0 [facility] Comment on above: Performed By: #### L [id number] #### [facility] ([facility]) [address] [place] [address] PLATELETS (10*3/UL) IN BLOOD AUTOMATED COUNT 26 10*3/uL Low 150-400 [facility] Comment on above: Performed By: #### L [id number] #### [facility] ([facility]) [address] [place] [address] RBC (Bld) [#/Vol] 2.39 10*6/uL Low 3.80-5.00 [facility] Comment on above: Performed By: #### L [id number] #### [facility] ([facility]) [address] [place] [address] WBC (Bld) [#/Vol] 3.49 10*3/uL Low 4.00-10.60 [facility] Comment on above: Performed By: #### L [id number] #### [facility] ([facility]) [address] [place] [address] CK TOTAL AND CKMBon 11-10-19 25 CREATINE KINASE (U/L) IN SER/PLAS 43.0 U/L Normal 30.0-223.0 [facility] Comment on above: Performed By: #### L [id number] #### [facility] [address] [place] [address] CREATINE KINASE MB/CREATINE KINASE TOTAL BY CALCULATION 3.0 High 0.0-1.9 [facility] Comment on above: Performed By: #### L [id number] #### [facility] [address] [place] [address] CREATINE KINASE-MB (NG/ML) IN SER/PLAS 1.3 ng/mL Normal 0.0-5.0 [facility] Comment on above: Performed By: #### L [id number] #### [facility] [address] [place] [address] COMPREHENSIVE METABOLIC PANE Dayo 11-09-2024 Albumin [Mass/Vol] 4.0 g/dL Normal 3.5-5.7 [facility] Comment on above: Performed By: #### L [id number] ####[facility] [place] [address] ALP [Catalytic activity/Vol] 89 U/L Normal 34-104 [facility] Comment on above: Performed By: #### L [id number] ####[facility] [place] [address] ALT [Catalytic activity/Vol] 22 U/L Normal 7-52 [facility] Comment on above: Performed By: #### L [id number] ####[facility] [place] [address] Anion gap [Moles/Vol] 2 mmol/L Low 7-20 [facility] Comment on above: Performed By: #### L [id number] ####[facility] [place] [address] AST [Catalytic activity/Vol] 27 U/L Normal 13-39 [facility] Comment on above: Performed By: #### L [id number] ####[facility] [place] [address] Bilirubin [Mass/Vol] 1.0 mg/dL Normal 0.3-1.0 [facility] Comment on above: Performed By: #### L [id number] ####[facility] [place] [address] Calcium [Mass/Vol] 8.9 mg/dL Normal 8.6-10.3 [facility] Comment on above: Performed By: #### L [id number] ####[facility] ([facility])[address] [place] [address] Chloride [Moles/Vol] 107 mmol/L Normal 98-107 [facility] Comment on above: Performed By: #### L [id number] ####[facility] ([facility])[address] [place] [address] CO2 [Moles/Vol] 37 mmol/L High 21-31 [facility] Comment on above: Performed By: #### L [id number] ####[facility] ([facility])[address] [place] [address] Creatinine [Mass/Vol] 0.79 mg/dL Normal 0.60-1.20 [facility] Comment on above: Performed By: #### L [id number] ####[facility] ([facility])[address] [place] [address] GLOMERULAR FILTRATION RATE ML/MIN/1.73 SQ M.PREDICTED 85.0 mL/min/1.73m*2 Normal >60.0 [facility] Comment on above: Result Comment: The [facility]???s estimated glomerular filtration rate (eGFR) will no [...] of individuals. Performed By: #### L [id number] ####[facility] ([facility])[address] [place] [address] Glucose [Mass/Vol] 93 mg/dL Normal 70-100 [facility] Comment on above: Performed By: #### L [id number] ####[facility] ([facility])[address] [place] [address] Potassium [Moles/Vol] 3.6 mmol/L Normal 3.5-5.1 [facility] Comment on above: Performed By: #### L [id number] ####[facility] ([facility])[address] [place] [address] Protein [Mass/Vol] 5.9 g/dL Low 6.0-8.3 [facility] Comment on above: Performed By: #### L [id number] ####[facility] ([facility])[address] [place] [address] Sodium [Moles/Vol] 142 mmol/L Normal 136-145 [facility] Comment on above: Performed By: #### L [id number] ####[facility] ([facility])[address] [place] [address] Urea nitrogen [Mass/Vol] 23 mg/dL Normal 7-25 [facility] Comment on above: Performed By: #### L [id number] ####[facility] ([facility])[address] [place] [address] UREA NITROGEN/CREATININE (MASS RATIO) IN SER/PLAS 29.1 Normal [facility] Comment on above: Performed By: #### L [id number] ####[facility] ([facility])[address] [place] [address] HIGH SENSITIVITY TROPONIN Io n 11-09-2024 HS TROPONIN I (NG/L) 7 ng/L Normal <15 [facility] Comment on above: Performed By: #### L [id number] ####[facility] ([facility])[address] [place] [address] LACTIC ACID, PLASMAon 2024 LACTATE (MMOL/L) IN SER/PLAS 0.7 mmol/L Normal 0.5-2.2 [facility] Comment on above: Performed By: #### L [id number] ####[facility] ([facility])[address] [place] [address] MAGNESIUMon 11-09-2024 Magnesium [Mass/Vol] 1.9 mg/dL Normal 1.9-2.7 [facility] Comment on above: Performed By: #### L [id number] #### [facility] ([facility]) [address] [place] [address] MANUAL DIFFERENTIALon 2024 ANISOCYTOSIS PRESENCE IN BLOOD BY LIGHT MICROSCOPY Moderate Normal [facility] Comment on above: Performed By: #### L [id number] #### [facility] ([facility]) [address] [place] [address] BASOPHILS (10*3/UL) IN BLOOD BY CALCULATION 0.01 10*3/uL Normal 0.00-0.20 [facility] Comment on above: Performed By: #### L [id number] #### [facility] ([facility]) [address] [place] [address] BASOPHILS/100 LEUKOCYTES IN BLOOD BY AUTOMATED COUNT 0.3 % Normal 0.0-1.0 [facility] Comment on above: Performed By: #### L [id number] #### [facility] ([facility]) [address] [place] [address] EOSINOPHILS (10*3/UL) IN BLOOD BY CALCULATION 0.00 10*3/uL Normal 0.00-0.50 [facility] Comment on above: Performed By: #### L [id number] #### [facility] ([facility]) [address] [place] [address] EOSINOPHILS/100 LEUKOCYTES IN BLOOD BY AUTOMATED COUNT 0.0 % Normal 0.0-6.0 [facility] Comment on above: Performed By: #### L [id number] #### [facility] ([facility]) [address] [place] [address] IMMATURE GRANULOCYTES (10*3/UL) IN BLOOD BY CALCULATION 0.12 10*3/uL Normal 0.00-0.20 [facility] Comment on above: Performed By: #### L [id number] #### [facility] ([facility]) [address] [place] [address] IMMATURE GRANULOCYTES/100 LEUKOCYTES IN BLOOD BY AUTOMATED COUNT 3.4 % High 0.0-1.0 [facility] Comment on above: Performed By: #### L [id number] #### [facility] ([facility]) [address] [place] [address] LYMPHOCYTES (10*3/UL) IN BLOOD BY CALCULATION 1.63 10*3/uL Normal 1.20-4.00 [facility] Comment on above: Performed By: #### L [id number] #### [facility] ([facility]) [address] [place] [address] LYMPHOCYTES/100 LEUKOCYTES IN BLOOD BY AUTOMATED COUNT 46.7 % High 20.0-45.0 [facility] Comment on above: Performed By: #### L [id number] #### [facility] ([facility]) [address] [place] [address] MONOCYTES (10*3/UL) IN BLOOD BY CALCUATION 0.29 10*3/uL Normal 0.10-1.00 [facility] Comment on above: Performed By: #### L [id number] #### [facility] ([facility]) [address] [place] [address] MONOCYTES/100 LEUKOCYTES IN BLOOD BY AUTOMATED COUNT 8.3 % Normal 5.0-12.0 [facility] Comment on above: Performed By: #### L [id number] #### [facility] ([facility]) [address] [place] [address] NEUTROPHILS (10*3/UL) IN BLOOD BY CALCULATION 1.4 10*3/uL Low 1.6-7.6 [facility] Comment on above: Performed By: #### L [id number] #### [facility] ([facility]) [address] [place] [address] NEUTROPHILS/100 LEUKOCYTES IN BLOOD BY AUTOMATED COUNT 41.3 % Normal 40.0-72.0 [facility] Comment on above: Performed By: #### L [id number] #### [facility] [address] [facility] [place] [address] POIKILOCYTOSIS (PRESENCE) IN BLOOD BY LIGHT MICROSCOPY Slight Normal [facility] Comment on above: Performed By: #### L [id number] #### [facility] ([facility]) [address] [place] [address] POLYCHROMASIA IN BLOOD BY LIGHT MICROSCOPY Slight Normal [facility] Comment on above: Performed By: #### L [id number] #### [facility] ([facility]) [address] [place] [address] PHOSPHORUSon 11-09-2024 Magnesium [Mass/Vol] 2.9 mg/dL Normal 2.5-5.0 [facility] Comment on above: Performed By: #### L [id number] ####[facility] ([facility])[address] [place] [address] POCT GLUCOSE METER UNSOLICIT ED RESULTSon 11-09-2024 Glucose [Mass/Vol] 156 mg/dL High 70-105 [facility] Comment on above: Order Comment: Waive d Testing in the ED is performed under the ED CLIA certificate #[id number]. Result Comment: judy pedro Performed By: #### L [id number] ####[facility] ([facility])[address] [place] [address] PROTIME-INRon 11-09-2024 INR IN PPP BY COAGULATION ASSAY 1.20 High 0.90-1.10 [facility] Comment on above: Result Comment: ACCC P [...] RANGE. CHEST 1995;108:231S-246S. Performed By: #### L [id number] #### [facility] ([employer]) [address] [place] [address] PROTHROMBIN TIME (PT) IN PPP BY COAGULATION ASSAY 15.1 Seconds High 12.3-14.8 [facility] Comment on above: Performed By: #### L [id number] #### [facility] ([facility]) [address] [place] [address] Pathology study report docum entOrdered By: Prema Hook on 11-09-2024 Pathology study [facility] Other T4, FREEon 11-09-2024 THYROXINE (T4) FREE (NG/DL) IN SER/PLAS 1.41 ng/dL Normal 0.71-1.85 [facility] Comment on above: Performed By: #### L [id number] ####[facility] ([employer])[address] [place] [address] TSH3 REFLEX TO FT4on 025 THYROTROPIN (MIU/L) IN SER/PLAS BY DETECTION LIMIT <= 0.05 MIU/L 0.13 mIU/L Low 0.34-5.60 [facility] Comment on above: Performed By: #### L [id number] #### [facility] ([employer]) [address] [place] [address] TYPE AND SCREENon 11-09-2024 AB SCREEN Positive Normal [facility] Comment on above: Performed By: #### L [id number] #### [facility] ([employer]) [address] [place] [address] ABO group Nom (Bld) O Normal [facility] Comment on above: Performed By: #### L [id number] #### [facility] ([facility]) [address] [place] [address] RH TYPE IN BLOOD Positive Normal [facility] Comment on above: Performed By: #### L [id number] #### [facility] ([facility]) [address] [place] [address] VENOUS BLOOD GAS WITH IONIZE D CALCIUMon 11-09-2024 Base excess Calc (BldV) [Moles/Vol] 4.2 mmol/L Normal [facility] Comment on above: Performed By: #### L [id number] ####[facility] [id number] [place] [address] [place] CALCIUM IONIZED (MMOL/L) IN BLOOD 1.24 mmol/L Normal 1.15-1.33 [facility] Comment on above: Performed By: #### L [id number] ####[facility] [id number] [place] [address] [place] CO2 (BldV) [Partial pressure] 44 mm[Hg] Normal 40-50 [facility] Comment on above: Performed By: #### L [id number] ####[facility] [id number] [place] [address] [place] HCO3 (Bld) [Moles/Vol] 29.2 mmol/L Normal [facility] Comment on above: Performed By: #### L [id number] ####[facility] [id number] [place] [address] [place] Oxygen (BldV) [Partial pressure] 45 mm[Hg] Normal 35-45 [facility] Comment on above: Performed By: #### L [id number] ####[facility] [id number] [place] [address] [place] OXYGEN SATURATION (%) IN VENOUS BLOOD 75.0 % Normal 65.0-75.0 [facility] Comment on above: Performed By: #### L [id number] ####[facility] [id number] [place] [address] [facility] PH OF VENOUS BLOOD 7.43 High 7.31-7.41 [facility] Comment on above: Performed By: #### L [id number] ####[facility] [id number] [place] [address] [place] VITAMIN B12on 11-09-2024 Cobalamin (Vitamin B12) [Mass/Vol] 1113 pg/mL High 180-914 [facility] Comment on above: Result Comment: REFE RENCE RANGES: 180-914 pg/mL Normal 145-179 pg/mL Indeterminate <145 pg/mL Deficient Performed By: #### L [id number] #### [facility] ([facility]) [address] [place] [address] VITAMIN D 25 HYDROXYon 11-09 CALCIDIOL (25 [place] VITAMIN D3) (NG/ML) IN SER/PLAS 10.2 ng/mL Low 30.0-80.0 [facility] Comment on above: Result Comment: >80. 0 Toxicity possible Performed By: #### L [id number] ####[facility] ([facility])[address] [place] [address] [facility] 11-07-2024 L ------ Specimen: [id number] Received: 11/09/24 Status: DEZ Caal Num: [id number] Spec Type: Impression Subm Dr: Kaitlyn Joy MD Tissues: PATHPER Procedures: PATHREVIEW Age/ Patient Sex Location Account Attending Physician Andreia Thomas 59/F [facility] [id number] Kaitlyn Joy MD SPEC NUM: [id number] RECD: 11/09/24 STATUS: DEZ CAAL NUM: [id number] ROWENA: 11/07/[address] [facility] [address]: Kaitlyn Joy MD ENTERED: 11/09/[address]: Joselyn Pantoja MD SPEC TYPE: Impression DEPT: RAUL Villalpando ENTERED BY: [id number] RECV BY: [id number] ORDERED: PATHREVIEW ORDERED: PATHREVIEW Pathologist Review Abnormal [...] related Specimen: [id number] Received: 11/09/24 Status: DEZ Caal Num: [id number] Spec Type: Impression Subm Dr: Kaitlyn Joy MD Tissues: PATHPER Procedures: PATHREVIEW Patient: Andreia Thomas [id number] (Continued) Specimen: [id number] Received: 11/09/24 (Continued) Pathologist Review (Continued) Signed (signature on file) ChinLeigh Hook MD 11/09/24 1025 Specimen: [id number] Received: 11/09/24 Status: DEZ Caal Num: [id number] Spec Type: Impression Subm Dr: Kaitlyn Joy MD Tissues: PATHPER Procedures: PATHREVIEW Patient: Andreia Thomas [id number] (Continued) Specimen: [id number] Received: 11/09/24554 (Continued) Pathologist Review (Continued) effect. Continuous clinical and etiological correlation for the cause of marrow suppression, appropriate supportive medical management, and CBC laboratory follow-ups are also suggested. CPT 58395. Specimen: [id number] Received: 11/09/24 Status: DEZ Caal Num: [id number] Spec Type: Impression Subm Dr: Kaitlyn Joy MD Tissues: PATHPER Procedures: PATHREVIEW Patient: Andreia Thomas [id number] (Continued) Signed (signature on file) Prema Hook MD 11/09/24 1025 Normal [facility] Urine Cultureon 11-07-2024 Bacteria identified Cx Nom (U) ORGANISM: Escherichia coli (O:ESCCOL) [place] Count >100,000 Aerobic ILIA Charge (NMIC56) SUSCEPTIBILITY [...] RESISTANT TO ALL B-LACTAM DRUGS. PERFORMED BY: [place] [address] PATHOLOGIST MACHINE CLOTHING REPLACER SOLANGE Esparza [facility] Comment on above: Performed By: #### C UU #### [address] Ambulatory Visit Summaryon 0 10-31-2024 Ambulatory [...] EDT With: Parvin LAND, Roseline Chase Where: [facility] [address] [place] [id number]- Medications What How Much When Why Instructions New esomeprazole (Nexium 40 mg Cap-EC) 1 Capsules By Mouth Every day Elevated alkaline phosphatase level Cirrhosis Thrombocytopenia Blood loss anemia Abdominal pain Nausea Epigastric pain Early satiety Heartburn History of pancreatitis Refills: 8 Pickup at [id number] Changed sucralfate (Carafate 1 g/ 10 mL Susp-Oral) 10 Milliliter By Mouth 4 times a day Elevated alkaline phosphatase level Cirrhosis Thrombocytopenia Blood loss anemia Abdominal pain Nausea Epigastric pain Early satiety Heartburn History of pancreatitis Duration: 14 Days Pickup at [id number] Changed sucralfate (Carafate 1 gram Tab) 1 [...] Once a day (at bedtime) Pharmacy Information [facility] #[id number]: [address] [place], [place] [id number] [phone] Allergies Bactrim (Flu-like symptoms) Zocor (Unknown) simvastatin [...] choosing us for your care. Normal [facility] Gastroenterology Office/Clin ic Noteon 10-31-2024 Gastroenterology [...] epigastric area Just got blood work at [facility] and showed platelet count of 73 [...] fL High (10/27/24) Chloride: 105 mmol/L (10/27/24) Knott Absolute: 0.1 E9/L Low (10/27/24) CO2: 31 mmol/L (10/27/24) Knott Auto: 2 % Low (10/27/24) Creatinine: 0.6 [...] recent la (more content not included)... Normal [facility] Comment on above: Result Comment: Elec tronically Signed By: Parvin LAND, Roseline Chase\.br\Date and Time Signed: 10/31/24 13:37 EDT .Interpretation:on HCV Ab IA Ql Comment Invalid Interpretation Code [facility] Comment on above: Result Comment: Not infected with HCV unless early or acute infection is suspected (which may be delayed in an immunocompromised individual), or other evidence exists to indicate HCV infection. Performed at: [facility] [address] [place], [place] [id number] PhD Jean Schmidt Performed By: #### 2 [id number] #### [facility] [address] [place] [address] AFPon 10-30-2024 AFP.tumor marker [Mass/Vol] 3.6 ng/mL Invalid Interpretation Code 0.0-9.2 [facility] Comment on above: Result Comment: [facility] Electrochemiluminescence Immunoassay (ECLIA) Values obtained with different assay methods or kits cannot be used interchangeably. Results cannot be interpreted as absolute evidence of the presence or absence of malignant disease. This test is not interpretable in females. Performed at: [address] [id number] PhD Jean Schmidt Performed By: #### 2 [id number] #### [facility] [address] [place] [address] AMA Ab Scron 10-30-2024 Mitochondria M2 IgG Qn (S) <20.0 Invalid Interpretation Code 0.0-20.0 [facility] Comment on above: Result Comment: Nega tive 0.0 - 20.0 Equivocal 20.1 - 24.9 Positive >24.9 Mitochondrial (M2) Antibodies are found in 90-96% of patients with primary biliary cirrhosis. Performed at: [address] [id number] [id number] PhD Jean Schmidt Performed By: #### 1 [id number] #### [facility] [address] [place], [place] [id number] CIPRIANO w/Reflex if POSon 2024 Nuclear Ab Ql (S) Negative Invalid Interpretation Code Negative [facility] Comment on above: Result Comment: Perf ormed at: [address] [id number] PhD Jean Schmidt Performed By: #### 1 [id number] #### [facility] [address] [place] [address] Acute Hepatitis A B C Panelo n 10-30-2024 HAV IgM IA Ql Negative Invalid Interpretation Code Negative [facility] Comment on above: Result Comment: A ne gative anti-HAV IgM result suggests no recent or current HAV infection. Performed By: #### 3 [id number] #### [facility] [address] [place] [address] HBV core IgM IA Ql Negative Invalid Interpretation Code Negative [facility] Comment on above: Performed By: #### 3 [id number] #### [facility] [address] [place] [address] HBV surface Ag IA Ql Negative Invalid Interpretation Code Negative [facility] Comment on above: Performed By: #### 3 [id number] #### [facility] [address] [place] [address] HCV Ab IA Ql Non-Reactive Invalid Interpretation Code Non Reactive [facility] Comment on above: Result Comment: Perf ormed at: [address] [id number] PhD Jean Schmidt Performed By: #### 3 [id number] #### [facility] [address] [place] [address] Alk Phos Isoson 10-30-2024 ALP [Catalytic activity/Vol] 104 Int._Unit/L Invalid Interpretation Code 44-121 [facility] Comment on above: Performed By: #### 1 [id number] #### [facility] [address] [place] [address] ALP Bone [Catalytic fraction] 28 % Invalid Interpretation Code [facility] Comment on above: Performed By: #### 1 [id number] #### [facility] [address] [place] [address] ALP Intest [Catalytic fraction] 0 % Invalid Interpretation Code 018 [facility] Comment on above: Result Comment: Perf ormed at: [address] [id number] PhD Jean Schmidt Performed By: #### 1 [id number] #### [facility] [address] [place] [address] ALP Liver [Catalytic fraction] 72 % Invalid Interpretation Code 18 [facility] Comment on above: Performed By: #### 1 [id number] #### [facility] [address] [place] [address] Alpha 1 Antitrpon 10-30-2024 Alpha 1 antitrypsin [Mass/Vol] 219 mg/dL High 101-187 [facility] Comment on above: Result Comment: Perf ormed at: [address] [id number] PhD Jean Schmidt Performed By: #### 1 [id number] #### [facility] [address] [place] [address] Ceruloplasminon 10-30-2024 Ceruloplasmin [Mass/Vol] 36.3 mg/dL Invalid Interpretation Code 19.0-39.0 [facility] Comment on above: Result Comment: Perf ormed at: [address] [id number] PhD Jean Schmidt Performed By: #### 1 [id number] #### [facility] [address] [place] [address] Hep Bs Abon 10-30-2024 HBV surface Ab Ql (S) Non-Reactive Invalid Interpretation Code [facility] Comment on above: Result Comment: Non Reactive: Not immune to HBV infection. Equivocal: Unable to determine if anti-HBs is present at levels consistent with immunity. Reactive: Anti-HBs concentration detected at greater than 10 mIU/mL. Individual is considered to be immune to infection with HBV. Performed at: [address] [id number] [id number] PhD Jean Schmidt Performed By: #### 2 [id number] #### [facility] [address] [place] [address] Hepatitis A Virus (HAV) Anti body, Totalon 10-30-2024 HAV Ab IA Ql (S) Negative Invalid Interpretation Code Negative [facility] Comment on above: Result Comment: Comm ent: The HAV total antibody assay detects both IgG and IgM but does not differentiate between them. A negative result suggests susceptibility to infection. A positive result could be due to vaccination, previously resolved infection or active infection. Testing for HAV IgM should be performed if active HAV infection is suspected. [facility] offers profiles that will automatically reflex positive HAV total antibody results to IgM (e.g., panel #[id number] HAV Antibody w/ Rfx). Performed at: [address] [id number] PhD Jean Schmidt Performed By: #### 1 [id number] #### [facility] [address] [place] [address] IgA, Quant.on 10-30-2024 IgA [Mass/Vol] 118 mg/dL Invalid Interpretation Code 29-352 [facility] Comment on above: Result Comment: Perf ormed at: [address] [id number] PhD Cuauhtemocsharonwilliam Schmidt Performed By: #### 1 [id number] #### [facility] [address] [place] [address] IgG, Quant.on 10-30-2024 IgG [Mass/Vol] 652 mg/dL Invalid Interpretation Code [id number] [facility] Comment on above: Result Comment: Perf ormed at: [address] [id number] PhD Lydiawilliam Schmidt Performed By: #### 1 [id number] #### [facility] [address] [place] [address] Smooth Muscle Abon Actin smooth muscle IgG Qn (S) 19 unit(s) Invalid Interpretation Code 0-19 [facility] Comment on above: Result Comment: Nega tive 0 - 19 Weak positive 20 - 30 Moderate to strong positive >30 Actin Antibodies are found in 52-85% of patients with autoimmune hepatitis or chronic active hepatitis and in 22% of patients with primary biliary cirrhosis. Performed at: [address] [id number] PhD Pena Kittyreyna Performed By: #### 1 [id number] #### [facility] [address] [place] [address] T-TG IGAon 10-30-2024 tTG IgA Qn (S) <2 Invalid Interpretation Code 0-3 [facility] Comment on above: Result Comment: Nega tive 0 - 3 Weak Positive 4 - 10 Positive >10 Tissue Transglutaminase (tTG) has been identified as the endomysial antigen. Studies have demonstr- ated that endomysial IgA antibodies have over 99% specificity for gluten sensitive enteropathy. Performed at: [facility] [address], [place] [id number] PhD Jean Schmidt Performed By: #### 1 [id number] #### [facility] [address] [place] [address] WRITTEN AUTHORIZATIONon Written Authorization Comment Invalid Interpretation Code [facility] Comment on above: Result Comment: Writ ten Authorization Received. Authorization received from [employer] 10-30-2024 Logged by Kateryna Bowser Performed at: [facility] [address], [place] [id number] PhD Jean Schmidt Performed By: #### 3 [id number] #### [facility] [address] [place] [address] CBC w/ Auto Diffon Anisocytosis Ql (Bld) PRESENT Invalid Interpretation Code [facility] Comment on above: Performed By: #### 2 [id number] #### [facility] [address] [place] [address] Basophils/100 WBC (Bld) 0.4 % Normal 0.0-2.0 [facility] Comment on above: Performed By: #### 2 [id number] #### [facility] [address] [place] [address] Basophils/Leukocyte s Auto (Bld) [Pure # fraction] 0.0 E9/L Normal 0.0-0.2 [facility] Comment on above: Performed By: #### 2 [id number] #### [facility] [address] [place] [address] Eosinophils (Bld) [#/Vol] 0.0 E9/L Normal 0.0-0.5 [facility] Comment on above: Performed By: #### 2 [id number] #### [facility] [address] [place] [address] Eosinophils/100 WBC (Bld) 1.1 % Normal 0.0-8.0 [facility] Comment on above: Performed By: #### 2 110993 #### [facility] [address] [place] [address] Erythrocyte distribution width (RBC) [Ratio] 14.9 % High 10.9-14.2 [facility] Comment on above: Performed By: #### 2 235415 #### [facility] [address] [place] [address] Hematocrit (Bld) [Volume fraction] 21.8 % Low 34.0-46.0 [facility] Comment on above: Performed By: #### 2 402141 #### [facility] [address] [place] [address] Hemoglobin (Bld) [Mass/Vol] 7.5 g/dL Low 12.0-16.0 [facility] Comment on above: Performed By: #### 2 125470 #### [facility] [address] [place] [address] Hypochromia Auto Ql (Bld) PRESENT Invalid Interpretation Code [facility] Comment on above: Performed By: #### 2 356655 #### [facility] [address] [place] [address] Lymphocytes (Bld) [#/Vol] 0.8 E9/L Low 1.0-4.0 [facility] Comment on above: Performed By: #### 2 234231 #### [facility] [address] [place] [address] Lymphocytes/100 WBC (Bld) 27.9 % Normal 14.0-50.0 [facility] Comment on above: Performed By: #### 2 548473 #### [facility] [address] [place] [address] MCH (RBC) [Entitic mass] 43.0 pg High 27.0-34.0 [facility] Comment on above: Performed By: #### 2 862113 #### [facility] [address] [place] [address] MCHC (RBC) [Mass/Vol] 34.5 g/dL Normal 31.4-36.0 [facility] Comment on above: Performed By: #### 2 [id number] #### [facility] [address] [place] [address] MCV (RBC) [Entitic vol] 124.6 fL High 80.0-100.0 [facility] Comment on above: Performed By: #### 2 623558 #### [facility] [address] [place] [address] Microcytes Ql (Bld) PRESENT Invalid Interpretation Code [facility] Comment on above: Performed By: #### 2 372381 #### [facility] [address] [place] [address] Monocytes (Bld) [#/Vol] 0.1 E9/L Low 0.2-1.0 [facility] Comment on above: Performed By: #### 2 005889 #### [facility] [address] [place] [address] Neutrophils (Bld) [#/Vol] 2.0 E9/L Normal 2.0-7.5 [facility] Comment on above: Performed By: #### 2 225883 #### [facility] [address] [place] [address] Neutrophils/100 WBC (Bld) 68.6 % Normal 36.0-75.0 [facility] Comment on above: Performed By: #### 2 330941 #### [facility] [address] [place] [address] Ovalocytes LM Ql (Bld) PRESENT Invalid Interpretation Code [facility] Comment on above: Performed By: #### 2 [id number] #### [facility] [address] [place] [address] Platelet mean volume (Bld) [Entitic vol] 8.2 fL Normal 6.4-10.8 [facility] Comment on above: Performed By: #### 2 888411 #### [facility] [address] [place] [address] Platelets (Bld) [#/Vol] 60.0 E9/L Low 150.0-500.0 [facility] Comment on above: Performed By: #### 2 307962 #### [facility] [address] [place] [address] Polychromasia LM Ql (Bld) PRESENT Invalid Interpretation Code [facility] Comment on above: Performed By: #### 2 776421 #### [facility] [address] [place] [address] RBC (Bld) [#/Vol] 1.8 E12/L Low 4.3-5.9 [facility] Comment on above: Performed By: #### 2 472560 #### [facility] [address] [place] [address] RBC size Nom (Bld) SEE MORPHOLOGY Invalid Interpretation Code [facility] Comment on above: Performed By: #### 2 629355 #### [facility] [address] [place] [address] WBC corrected for nucl RBC Auto (Bld) [#/Vol] 2.9 E9/L Low 4.0-11.0 [facility] Comment on above: Performed By: #### 2 618320 #### [facility] [address] [place] [address] CHEMISTRYOrdered By: SYSTEM SYSTEM on 10-27-2024 25-hydroxyvitamin [...] 10-27-2024 Albumin [Mass/Vol] 4.6 g/dL Normal 3.3-5.0 [facility] Comment on above: Performed By: #### 2 603414 #### [facility] [address] [place] [address] Albumin/Globulin (S) [Mass conc ratio] 2.1 Normal 1.1-2.2 [facility] Comment on above: Performed By: #### 2 029287 #### [facility] [address] [place] [address] ALP [Catalytic activity/Vol] 85 Int._Unit/L Normal 21-98 [facility] Comment on above: Performed By: #### 2 982984 #### [facility] [address] [place] [address] ALT No additional P-5'-P [Catalytic activity/Vol] 38 Int._Unit/L Normal 6-46 [facility] Comment on above: Performed By: #### 2 443830 #### [facility] [address] [place] [address] Anion gap [Moles/Vol] 9 mmol/L Normal 6-16 [facility] Comment on above: Performed By: #### 2 151331 #### [facility] [address] [place] [address] AST [Catalytic activity/Vol] 59 Int._Unit/L High 5-43 [facility] Comment on above: Performed By: #### 2 103202 #### [facility] [address] [place] [address] Bilirubin [Mass/Vol] 1.6 mg/dL High 0.0-1.1 [facility] Comment on above: Performed By: #### 2 825123 #### [facility] [address] [place] [address] Calcium [Mass/Vol] 9.3 mg/dL Normal 8.9-11.1 [facility] Comment on above: Performed By: #### 2 168597 #### [facility] [address] [place] [address] Chloride [Moles/Vol] 105 mmol/L Normal 101-111 [facility] Comment on above: Performed By: #### 2 961668 #### [facility] [address] [place] [address] CO2 [Moles/Vol] 31 mmol/L Normal 21-31 [facility] Comment on above: Performed By: #### 2 626225 #### [facility] [address] [place] [address] Creatinine [Mass/Vol] 0.6 mg/dL Normal 0.5-1.3 [facility] Comment on above: Performed By: #### 2 915410 #### [facility] [address] [place] [address] Globulin (S) [Mass/Vol] 2.2 g/dL Normal 1.4-4.0 [facility] Comment on above: Performed By: #### 2 815552 #### [facility] [address] [place] [address] Glucose [Mass/Vol] 103 mg/dL Normal 55-199 [facility] Comment on above: Performed By: #### 2 500647 #### [facility] [address] [place] [address] Potassium [Moles/Vol] 3.5 mmol/L Normal 3.5-5.3 [facility] Comment on above: Performed By: #### 2 838520 #### [facility] [address] [place] [address] Protein [Mass/Vol] 6.8 g/dL Normal 6.0-7.8 [facility] Comment on above: Performed By: #### 2 156837 #### [facility] [address] [place] [address] Sodium [Moles/Vol] 141 mmol/L Normal 135-145 [facility] Comment on above: Performed By: #### 2 741587 #### [facility] [address] [place] [address] Urea nitrogen [Mass/Vol] 16 mg/dL Normal 5-21 [facility] Comment on above: Performed By: #### 2 703022 #### [facility] [address] [place] [address] Urea nitrogen/Creatinine [Mass ratio] 27 No Units High 10-20 [facility] Comment on above: Performed By: #### 2 320721 #### [facility] [address] [place] [address] COAGULATIONOrdered By: Micah Jaeger on 10-27-2024 INR Coag (PPP) [Relative time] 1.23 {INR} Invalid Interpretation Code [facility] Comment on above: Interpretive Data: I NR results are specifically intended to assess patients stabilized on long-term Anticoagulation therapy suggested INR s Less Intensive Anticoagulation 2.0 3.0 Conventional Range 3.0 4.5 PT Coag (PPP) [Time] 13.8 s High 9.4 - 12.5 second(s) [facility] Comment on above: Interpretive Data: [...] the same coagulation reagent and instrumentation as [facility]. Currently there are no coagulation studies available [...] 10-27-2024 Iron [Mass/Vol] 127 microgram/dL Normal 35-153 [facility] Comment on above: Performed By: #### 2 571006 #### [facility] [address] [place] [address] TIBC Calculatedon 10-27-2024 Iron binding capacity [Mass/Vol] 301 microgram/dL Normal 250-400 [facility] Comment on above: Performed By: #### 1 [id number] #### [facility] [address] [place] [address] Transferrin [Mass/Vol] 215 mg/dL Normal 200-370 [facility] Comment on above: Performed By: #### 1 [id number] #### [facility] [address] [place] [address] Vitamin D 25 Hydroxyon 10-27 25-hydroxyvitamin D3 [Mass/Vol] 9.6 ng/mL Low 30.0-100.0 [facility] Comment on above: Performed By: #### 5 [id number] #### [facility] [address] [place] [address] eGFRon 10-27-2024 eGFR 102 mL/min/1.73 m2 Normal >=59 [facility] Comment on above: Performed By: #### 1 [id number] #### [facility] [address] [place] [address] Surgical Pathology Reporton 10-20-2024 Surgical Pathology Report [address] [address]- Surgical Pathology Report Collected Date/Time: 10/16/2024 09:51 EDT Pathologist: Pepito Rueda MD Date/Time: 10/16/2024 10:39 EDT Roseline Melendrez MD, MD, Roseline Terry Surgical Pathology Report - 10/20/2024 13:12 EDT [...] recognition technology and might contain unintended computerized ultrasonographer errors. The use of one or more reagents in the above tests is regulated as an analyte specific reagent (ASR). The test or tests are ordered following initial H&E microscopic examination. The performance characteristics were determined by the [facility] Surgical Pathology. They have not been [...] recognition technology and might contain unintended computerized ultrasonographer errors. Normal [facility] Comment on above: Performed By: #### 4 [id number] #### [facility] [address] [place] [address] Provider Letteron 10-19-2024 Provider Letter Provider Letter October 19, 2024 ANDREIA THOMAS [address] [place] [address] : 1965 To Whom It May Concern, Please excuse the patient above from Jury Duty. They have multiple medical conditions that would prohibit sitting through jury duty. Respectfully, Roseline Melendrez MD [facility] P: [phone] F: [phone] [facility] Main OR Intraoperative Recor don 10-17-2024 Main OR Intraoperative Record Main OR Intraoperative Record IntraOp Document Type FT Summary Primary Physician: Roseline Melendrez MD Finalized Date/Time: 10/17/24 10:13:23 Pt. Name: ANDREIA THOMAS./Sex: 1965 Female Med Rec #: [id number] Physician: Roseline Melendrez MD Financial #: [id number] Pt. 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 Normal [facility] Discharge Instructionson Discharge Instructions Discharge Instructions ANDREIA [...] Wednesday. 2024 9:00 AM EDT With: Where: [facility] Sound Wednesday 12:45 PM EDT With: Roseline Melendrez MD Where: [facility] [address] [place] [address] [place] [address]- Medications What How Much When Why [...] esophagus. ??? (more content not included)... Normal [facility] Comment on above: Result Comment: Elec tronically Signed By: Guerita Jones.br\Date and Time Signed: 10/16/24 10:08 EDT H&P [...] Diagnosis: Epigastric pain and anemia -EGD Normal [facility] Main OR PACU II Recordon Main OR PACU II Record Main OR PACU II Record PACU Phase II Document Type FT Summary Primary Physician: Roseline Melendrez MD Finalized Date/Time: 10/16/24 10:29:38 Pt. Name: ANDREIA THOMAS /Sex: 1965 Female Med Rec #: [id number] Physician: Roseline Melendrez MD Financial #: [id number] Pt. Type: O Room/Bed: / Admit/Disch: 10/16/24 [...] Signed By: Guerita Jones I 10/16/24 10:29 [facility] Main OR Preoperative Recordo n 10-16-2024 Main OR Preoperative Record Main OR Preoperative Record Holding Area Document Type FT Summary Primary Physician: Roseline Melendrez MD Finalized Date/Time: 10/16/24 08:12:24 Pt. Name: ANDREIA THOMAS D.O.B./Sex: 1965 Female Med Rec #: [id number] Physician: Roseline Melendrez MD Financial #: [id number] Pt. Type: O Room/Bed: / Admit/Disch: 10/16/24 [...] Signed By: Macie Sorto RN 10/16/24 08:12 Normal [facility] Operative Reporton Operative Report Operative Report Patient: [...] QID, # 120 tab(s), Refills(s) 4, Pharmacy: [facility] #[id number], 158, cm, 06/02/24 9:26:00 EST, Height/Length Dosing, 72.6, kg, 06/02/24 9:26:00 EST, Weight Dosing pantoprazole 40 mg Oral EC Tab: 40 mg = 1 tab(s), Oral, Daily, # 30 tab(s), Refills(s) 3, Pharmacy: [facility] #[id number], 154, cm, 04/14/22 12:07:00 EDT, Height/Length Dosing, [...] the duodenum. Biopsies obtained Images Procedure images: Rec1_hd_video__T0 [id number].jpg Rec1_hd_video__T0 922_572.jpg Rec1_hd_video__T0 _52_[id number].jpg Rec1_hd_video__T0 9__03_[id number].jpg Rec1_hd_video__T0 9__[id number].jpg Rec1_hd_video__T0 9__40_[id number].jpg Rec1_hd_video__T0 9_29_[id number].jpg Rec1_hd_video_T0 9_04_136.jpg Rec1_hd_video_T0 952_507.jpg . Post-Procedure Complications: none. Estimated blood loss: minimal. Specimens: sent to pathology. Devices/ implants: none left in place. Impression and Plan hiatal hernia Reflux esophagitis Gastropathy Lymph ectasia of the duodenum Recommendations: -Resume previous diet -Resume home medications -Await pathology results, follow in GI clinic in 1-2 after discharge [facility] Comment on above: Result Comment: Elec tronically Signed By: Parvin LAND, Roseline Cook.br\Date and Time Signed: 10/16/24 09:57 EDT Other Comment: Jessica choi Attachment - attachment storage system not supported [id number] Can be viewed in source systemMissing Attachment - attachment storage system not supported [id number] Can be viewed in source systemMissing Attachment - attachment storage system not supported [id number] Can be viewed in source systemMissing Attachment - attachment storage system not supported [id number] Can be viewed in source systemMissing Attachment - attachment storage system not supported [id number] Can be viewed in source systemMissing Attachment - attachment storage system not supported [id number] Can be viewed in source systemMissing Attachment - attachment storage system not supported [id number] Can be viewed in source systemMissing Attachment - attachment storage system not supported [id number] Can be viewed in source systemMissing Attachment - attachment storage system not supported [id number] Can be viewed in source system Ambulatory Visit Summaryon 0 10-10-2024 Ambulatory Visit Summary Ambulatory Visit Summary ANDREIA THOMAS Devora :1965 Visit Date:10/10/2024 Ambulatory Visit Instructions Your [...] to do next Scheduled Follow-Up Appointments Wednesday 12:45 PM EDT With: Parvin LAND, Roseline Chase Where: [facility] [address] [facility] [address] [place] [address]- You Need to Complete the Following Acute [...] of pancreatitis Status post cholecystectomy Elevated alkali... Hjtst-5-Sdnztwnpdcs, Blood, Routine collect, 10/10/24, Order for future [...] Blood, Routi (more content not included)... Normal [facility] Gastroenterology Office/Clin ic Noteon 10-10-2024 Gastroenterology Office/Clinic Note Gastroenterology Office/Clinic Note Chief Complaint 4 month follow up HPI Staff Established patient is a(n) 59 year old female who presents today for a(n) 4 month follow up. Labs done at [facility] She can pull the results up [...] small bowel follow through Labs 09/07/24 @ [place]: RBC 2.71 (L) HGB 11.4 (L) HCT [...] epigastric area Just got blood work at [facility] and showed platelet count of 73 [...] Fetoprotein Tumor Marker Alpha Fetoprotein Tumor Marker Agwkh-4-Bxrvkxxmnhl CIPRIANO w/Reflex if POS Antimitochondrial Antibody, Quantitative Ceruloplasmin EGD Endoscopy (Hospital Procedure) Hepatitis A Virus (HAV) Antibody, Total Hepatitis B Surface Antibody IgA, Quant. IgG, Quant. Iron Level PT Smooth Muscle Antibody Screen t-Transglutaminase IgA TIBC Calculated US Abdomen Complete Vitamin D 25 Hydroxy 2. Nausea (R11.0: Nausea) Ordered: Acute Hepatitis A B C Panel Alpha Fetoprotein Tumor Marker Alpha Fetoprotein Tumor Marker Ugqpo-8-Dvquqwfdlzo CIPRIANO w/Reflex if POS Antimitochondrial Antibody, Quantitative Ceruloplasmin EGD Endoscopy (Hospital Procedure) Hepatitis A Virus (HAV) Antibody, Total Hepatitis B (more content not included)... Normal [facility] Comment on above: Result Comment: Elec tronically Signed By: Parvin LAND, Roseline Chase\.br\Date and Time Signed: 10/10/24 14:17 EDT Patient Educationon 06-13-20 Patient Education Patient Education Normal [facility] Patient Letter FTon 2023 Patient Letter [facility] Patient Letter [facility] June 13, 2024 ANDREIA THOMAS [address] [place] [address] : 1965 The anti-dumping diet, also known [...] manage diarrhea, and Use low-fat cooking methods [facility] Gastric Emptying Studyon 06-12-2024 CT Gastric Emptying Study Exam Date/Time: 06/12/2024 10:21 [...] 2.0 hr (Upper Limit 60%) 0 Normal [facility] Ambulatory Visit Summaryon 1 08-03-2023 Ambulatory Visit [...] EST With: Parvin LAND, Roseline Chase Where: [facility] [address] [place] [address] [place] [address]- You Need to Complete the Following Alkaline [...] Epigastric pain, No, pp_set_radiology_subspecia lty, [facility] Medications What How Much When Why Instructions [...] choosing us for your care. Vilma [facility] Gastroenterology Office/Clin ic Noteon 06-02-2024 Gastroenterology [...] Patient reports having previous colonoscopy completed in [place], [place] 2 years ago. Patient reports previous [...] Isoenzymes Antim (more content not included)... Normal [facility] Comment on above: Result Comment: Elec tronically Signed By: Parvin LAND, Roseline Cook.br\Date and Time Signed: 06/02/24 09:52 EST HbA1c HPLC (Bld) [Mass fract ion]on 03-08-2024 HbA1c (Bld) [Mass fraction] 8.5 % [facility] No Panel Informationon 03-08 Bedside Glucose 243 [facility] Auditory function testson Right Ear: Mild cond uctive hearing loss above 3K Hz Left Ear: Mild to moderate sensorineural hearing loss above 3K Hz [facility] INSULINon 09-14-2022 Insulin 36.5 uIU/mL Critically high 2.6-24.9 [facility] Comment on above: Performed By: #### I NSULIN #### [facility] [address] [place] [address] Dr. Kizzy Hook BNPon 09-12-2022 Natriuretic peptide B (Bld) [Mass/Vol] 44.0 pg/mL Normal <=900.0 [facility] Comment on above: Performed By: #### C MP, BNP, TSH, LIPID, T7 #### [facility] [address] [address] [address] Kizzy Hook CBC AUTO DIFFon 09-12-2022 BASO # 0.1 103/ul Normal 0.0-0.1 [facility] Comment on above: Performed By: #### C BC #### [facility] [address] [place] [address] Dr. Kizzy Hook Basophils/100 WBC (Bld) 0.8 % Normal 0.2-2.0 [facility] Comment on above: Performed By: #### C BC #### [facility] [address] [address] [address] Kizzy Hook EO # 0.1 103/ul Normal 0.0-0.7 [facility] Comment on above: Performed By: #### C BC #### [facility] [address] [address] [address] Kizzy Hook Eosinophils/100 WBC (Bld) 1.9 % Normal 0.9-7.0 [facility] Comment on above: Performed By: #### C BC #### [facility] [address] [place] [address] Dr. Kizzy Hook Erythrocyte distribution width (RBC) [Ratio] 16.0 % Critically high 11.0-15.0 [facility] Comment on above: Performed By: #### C BC #### [facility] [address] [place] [address] Dr. Kizzy Hook Hematocrit (Bld) [Volume fraction] 41.1 % Normal 36.0-48.0 [facility] Comment on above: Performed By: #### C BC #### [facility] [address] [place] [address] Dr. Kizzy Hook Hemoglobin (Bld) [Mass/Vol] 13.5 g/dL Normal 12.0-16.0 [facility] Comment on above: Performed By: #### C BC #### [facility] [address] [place] [address] Dr. Kizzy Hook IG # 0.09 10e3/ul Critically high 0.00-0.03 [facility] Comment on above: Performed By: #### C BC #### [facility] [address] [place] [address] Dr. Kizzy Hook IG % 1.2 % Critically high 0.0-0.5 [facility] Comment on above: Performed By: #### C BC #### [facility] [address] [place] [address] Dr. Kizzy Hook LYMPH # 2.0 103/ul Normal 1.2-3.8 [facility] Comment on above: Performed By: #### C BC #### [facility] [address] [place] [address] Dr. Kizzy Hook Lymphocytes/100 WBC (Bld) 27.0 % Normal 20.5-60.0 [facility] Comment on above: Performed By: #### C BC #### [facility] [address] [place] [address] Dr. Kizzy Hook MANUAL DIFF REQ NO Normal [facility] Comment on above: Performed By: #### C BC #### [facility] [address] [place] [address] Dr. Kizzy Hook MCH (RBC) [Entitic mass] 35.8 pg Critically high 26.7-34.0 [facility] Comment on above: Performed By: #### C BC #### [facility] [address] [place] [address] Dr. Kizzy Hook MCHC (RBC) [Mass/Vol] 32.8 g/dL Normal 29.9-35.2 [facility] Comment on above: Performed By: #### C BC #### [facility] [address] [place] [address] Dr. Kizzy Hook MCV (RBC) [Entitic vol] 109.0 fL Critically high 81.0-99.0 [facility] Comment on above: Performed By: #### C BC #### [facility] [address] [place] [address] Dr. Kizzy Hook MONO # 0.5 103/ul Normal 0.3-0.8 [facility] Comment on above: Performed By: #### C BC #### [facility] [address] [place] [address] Dr. Kizzy Hook Monocytes/100 WBC (Bld) 6.9 % Normal 1.7-12.0 [facility] Comment on above: Performed By: #### C BC #### [facility] [address] [place] [address] Dr. Kizzy Hook NEUT # 4.6 103/ul Normal 1.4-6.5 [facility] Comment on above: Performed By: #### C BC #### [facility] [address] [address] [address] Kizzy Hook Neutrophils/100 WBC (Bld) 62.2 % Normal 43.0-75.0 [facility] Comment on above: Performed By: #### C BC #### [facility] [address] [address] [address] Kizzy Hook Platelet mean volume (Bld) [Entitic vol] 9.7 fL Normal 9.5-13.5 [facility] Comment on above: Performed By: #### C BC #### [facility] [address] [address] [address] Kizzy Hook PLT 208 103/ul Normal 150-450 [facility] Comment on above: Performed By: #### C BC #### [facility] [address] [place] [address] Dr. Kizzy Hook RBC 3.77 106/ul Critically low 4.20-5.40 [facility] Comment on above: Performed By: #### C BC #### [facility] [address] [place] [address] Dr. Kizzy Hook WBC 7.4 103/ul Normal 4.0-11.0 [facility] Comment on above: Performed By: #### C BC #### [facility] [address] [place] [address] Dr. Kizzy Hook FREE THYROXINE INDEX T7on FTI 2.60 Normal 1.30-4.50 [facility] Comment on above: Performed By: #### C MP, BNP, TSH, LIPID, T7 #### [facility] [address] [place] [address] Dr. Kizzy Hook T3U 31.0 % Normal 30.0-39.0 [facility] Comment on above: Performed By: #### C MP, BNP, TSH, LIPID, T7 #### [facility] [address] [place] [address] Dr. Kizzy Hook T4 [Mass/Vol] 8.40 ug/dL Normal 4.80-13.90 The [place] Comment on above: Performed By: #### C MP, BNP, TSH, LIPID, T7 #### [facility] [address] [address] [address] Kizzy Hook GLYCOHEMOGLOBIN A1Con 2022 ADA RECOMMENDATION SEE BELOW Normal [facility] Comment on above: Result Comment: ADA RECOMMENDED LIMIT 4.0 - 6.0 ADA THERAPEUTIC TARGET < 7.0 ACTION SUGGESTED > 7.0 Performed By: #### A 1C ####[facility] [address] [address]Dr. Kizzy Hook Glucose [Mass/Vol] 151 mg/dL Normal [facility] Comment on above: Performed By: #### A 1C ####[facility] [address] [address]Dr. Kizzy Hook HbA1c (Bld) [Mass fraction] 6.9 % Critically high 4.5-6.2 [facility] Comment on above: Performed By: #### A 1C ####[facility] [address] [place], [place] [address]Dr. Kizzy Hook IRONon 09-12-2022 Iron [Mass/Vol] 57.0 ug/dL Normal 50.0-170.0 [facility] Comment on above: Performed By: #### I HEMANT AGUAYO ####[facility] [address] [address]Dr. Kizzy Hook LIPID PROFILEon 09-12-2022 CHOL-HDL RATIO NORM SEE BELOW Normal [facility] Comment on above: Result Comment: 3.3 - 4.4 LOW RISK 4.4 - 7.1 AVERAGE RISK 7.1 - 11.0 MODERATE RISK >11.0 HIGH RISK Performed By: #### C MP, BNP, TSH, LIPID, T7 #### [facility] [address] [address] [address] Kizzy Hook Cholesterol [Mass/Vol] 185 mg/dL Normal <=200 [facility] Comment on above: Performed By: #### C MP, BNP, TSH, LIPID, T7 #### [facility] [address] [address] [address] Kizzy Hook Cholesterol in HDL [Mass/Vol] 31 mg/dL Critically low 40-60 [facility] Comment on above: Performed By: #### C MP, BNP, TSH, LIPID, T7 #### [facility] [address] [address] [address] Kizzy Hook Cholesterol in LDL [Mass/Vol] 109.8 mg/dL Normal [facility] Comment on above: Performed By: #### C MP, BNP, TSH, LIPID, T7 #### [facility] [address] [address] [address] Kizzy Hook Cholesterol.total/C holesterol in HDL [Mass ratio] 6.0 {ratio} Normal [facility] Comment on above: Performed By: #### C MP, BNP, TSH, LIPID, T7 #### [facility] [address] [place] [address] Dr. Kizzy Hook HDL NORMAL > or = 60 mg/dl - LO W CARDIOVASCULAR RISK <40 mg/dl - HIGH CARDIOVASCULAR RISK Normal [facility] Comment on above: Performed By: #### C MP, BNP, TSH, LIPID, T7 #### [facility] [address] [place] [address] Dr. Kizzy Hook LDL CALC NORMAL SEE BELOW Normal [facility] Comment on above: Result Comment: <100 mg/dl OPTIMAL 100 - 129 mg/dl NEAR OR ABOVE OPTIMAL 130 - 159 mg/dl BORDERLINE HIGH 160 - 189 mg/dl HIGH >190 mg/dl VERY HIGH Performed By: #### C MP, BNP, TSH, LIPID, T7 #### [facility] [address] [address] [address] Kizzy Hook Triglyceride [Mass/Vol] 221 mg/dL Critically high <=150 [facility] Comment on above: Performed By: #### C MP, BNP, TSH, LIPID, T7 #### [facility] [address] [place] [address] Dr. Kizzy Hook VLDL CALC 44.2 mg/dL Normal [facility] Comment on above: Performed By: #### C MP, BNP, TSH, LIPID, T7 #### [facility] [address] [place] [address] Dr. Kizzy Hook PROF 14(COMP METB)on 023 Albumin [Mass/Vol] 3.7 g/dL Normal 3.4-5.0 [facility] Comment on above: Performed By: #### C MP, BNP, TSH, LIPID, T7 #### [facility] [address] [address] [address] Kizzy Hook Albumin/Globulin [Mass ratio] 1.1 {ratio} Normal [facility] Comment on above: Performed By: #### C MP, BNP, TSH, LIPID, T7 #### [facility] [address] [address] [address] Kizzy Hook ALP [Catalytic activity/Vol] 166 U/L Critically high 46-116 [facility] Comment on above: Performed By: #### C MP, BNP, TSH, LIPID, T7 #### [facility] [address] [place] [address] Dr. Kizzy Hook ALT [Catalytic activity/Vol] 50 U/L Normal 14-59 [facility] Comment on above: Performed By: #### C MP, BNP, TSH, LIPID, T7 #### [facility] [address] [address] [address] Kizzy Hook Anion gap [Moles/Vol] 13.2 mmol/L Normal [facility] Comment on above: Performed By: #### C MP, BNP, TSH, LIPID, T7 #### [facility] [address] [place] [address] Dr. Kizzy Hook AST [Catalytic activity/Vol] 34 U/L Normal 15-37 [facility] Comment on above: Performed By: #### C MP, BNP, TSH, LIPID, T7 #### [facility] [address] [place] [address] Dr. Kizzy Hook Bilirubin [Mass/Vol] 0.4 mg/dL Normal 0.2-1.0 [facility] Comment on above: Performed By: #### C MP, BNP, TSH, LIPID, T7 #### [facility] [address] [place] [address] Dr. Kizzy Hook Calcium [Mass/Vol] 9.3 mg/dL Normal 8.5-10.1 [facility] Comment on above: Performed By: #### C MP, BNP, TSH, LIPID, T7 #### [facility] [address] [place] [address] Dr. Kizzy Hook Chloride [Moles/Vol] 105 mmol/L Normal 98-107 [facility] Comment on above: Performed By: #### C MP, BNP, TSH, LIPID, T7 #### [facility] [address] [place] [address] Dr. Kizzy Hook CO2 [Moles/Vol] 28.1 mmol/L Normal 21.0-32.0 [facility] Comment on above: Performed By: #### C MP, BNP, TSH, LIPID, T7 #### [facility] [address] [place] [address] Dr. Kizzy Hook Creatinine [Mass/Vol] 0.59 mg/dL Normal 0.55-1.02 [facility] Comment on above: Performed By: #### C MP, BNP, TSH, LIPID, T7 #### [facility] [address] [place] [address] Dr. Kizzy Hook EGFR-AF CYMRO >60 Normal >=60 [facility] Comment on above: Performed By: #### C MP, BNP, TSH, LIPID, T7 #### [facility] [address] [place] [address] Dr. Kizzy Hook EGFR-NON AF CYMRO >60 Normal >=60 [facility] Comment on above: Performed By: #### C MP, BNP, TSH, LIPID, T7 #### [facility] [address] [place] [address] Dr. Kizzy Hook Globulin (S) [Mass/Vol] 3.4 g/dL Normal [facility] Comment on above: Performed By: #### C MP, BNP, TSH, LIPID, T7 #### [facility] [address] [place] [address] Dr. Kizzy Hook Glucose [Mass/Vol] 105 mg/dL Normal 74-106 [facility] Comment on above: Performed By: #### C MP, BNP, TSH, LIPID, T7 #### [facility] [address] [place] [address] Dr. Kizzy Hook Potassium [Moles/Vol] 4.3 mmol/L Normal 3.5-5.1 [facility] Comment on above: Performed By: #### C MP, BNP, TSH, LIPID, T7 #### [facility] [address] [address] [address] Kizzy Hook Protein [Mass/Vol] 7.1 g/dL Normal 6.4-8.2 [facility] Comment on above: Performed By: #### C MP, BNP, TSH, LIPID, T7 #### [facility] [address] [place] [address] Dr. Kizzy Hook Sodium [Moles/Vol] 142 mmol/L Normal 136-145 [facility] Comment on above: Performed By: #### C MP, BNP, TSH, LIPID, T7 #### [facility] [address] [place] [address] Dr. Kizzy Hook Urea nitrogen [Mass/Vol] 11.0 mg/dL Normal 7.0-18.0 [facility] Comment on above: Performed By: #### C MP, BNP, TSH, LIPID, T7 #### [facility] [address] [place] [address] Dr. Kizzy Hook Urea nitrogen/Creatinine [Mass ratio] 18.6 mg/mg Normal [facility] Comment on above: Performed By: #### C MP, BNP, TSH, LIPID, T7 #### [facility] [address] [place] [address] Dr. Kizzy Hook TSHon 09-12-2022 TSH 0.444 uIU/mL Normal 0.358-3.740 [facility] [place] Comment on above: Performed By: #### C MP, BNP, TSH, LIPID, T7 #### [facility] [address] [place] [address] Dr. Kizzy Hook VITAMIN D 25 OHon 09-12-2022 VIT D 25-OH 17.6 ng/mL Normal [facility] Comment on above: Performed By: #### William AGUAYO VITAD ####[facility] [address] [id number] Islaskasey Bernardino VIT D RANGES SEE BELOW Normal [facility] Comment on above: Result Comment: <20 ng/mL Vit D deficient 20 - <30 ng/mL Vit D insufficient 30 - 100 ng/mL Vit D sufficient >100 ng/mL Potential Toxicity Performed By: #### I RAGHAV VITAD ####[facility] [address] [address]DrRomana oHok CHEMISTRYOrdered By: SYSTEM SYSTEM on 04-14-2022 Albumin [...] rate/Area] mL/min/1.73 m2 Normal >=59mL/min/1 .73 m2 FT Chem S GFR/1.73 sq M.predicted [...] 69.0 % Normal 36.0 - 75.0 % FT HemeAutoSS Neutrophils/Leukocy sravani Auto (Bld) [Pure # [...] fL Normal 6.4 - 10.8 fL FT HemeAutoSS Platelets (Bld) [#/Vol] 260.0 E9/L Normal [...] by: TERELL HINTON Date: 2022-03-17 07:21 Normal [facility] Glucose - FINGER STICKon Glucose [Mass/Vol] 190 mg/dL [facility] SmartDocs ([employer]) Other A1C HEMOGLOBINon 02-18-2022 HbA1c (Bld) [Mass fraction] 6.8 % [employer] Other Glucose - FINGER STICKon Glucose [Mass/Vol] 113 mg/dL [employer] Other HbA1c (Bld) [Mass fraction]o n 02-18-2022 A1C HEMOGLOBIN [facility] [employer] ([employer]) Other CIPRIANO by IFAon 01-19-2022 Antinuclear Antibodies, IFA Negative Normal [facility] Comment on above: Result Comment: Nega tive <1:80 Borderline 1:80 Positive >1:80 ICAP nomenclature: AC-0 For more information about Hep-2 cell patterns use ANApatterns.org, the official website for the International Consensus on Antinuclear Antibody (CIPRIANO) Patterns (ICAP). Performed By: #### A NAIFA ####[facility] [address] [address]Dr. Kizzy Hook ANTISTREPTOLYSIN O AB (ASO)o n 01-17-2022 Antistreptolysin O Ab 55.0 IU/mL Normal 0.0-200.0 [facility] Comment on above: Performed By: #### A SOAB #### [facility] [address] [address] [address] Kizzy Hook RHEUMATOID FACTORon 01-18-20 22 RA Latex Turbid. <10.0 Normal <14.0 [facility] Comment on above: Performed By: #### R F ####[facility] [address] [id number]. Kizzy Hook CBC AUTO DIFFon 01-15-2022 BASO # 0.1 103/ul Normal 0.0-0.1 [facility] Comment on above: Performed By: #### C BC #### [facility] [address] [place] [address] Dr. Kizzy Hook Basophils/100 WBC (Bld) 0.6 % Normal 0.2-2.0 [facility] Comment on above: Performed By: #### C BC #### [facility] [address] [place] [address] Dr. Kizzy Hook EO # 0.1 103/ul Normal 0.0-0.7 [facility] Comment on above: Performed By: #### C BC #### [facility] [address] [place] [address] Dr. Kizzy Hook Eosinophils/100 WBC (Bld) 1.3 % Normal 0.9-7.0 [facility] Comment on above: Performed By: #### C BC #### [facility] [address] [place] [address] Dr. Kizzy Hook Erythrocyte distribution width (RBC) [Ratio] 17.0 % Critically high 11.0-15.0 [facility] Comment on above: Performed By: #### C BC #### [facility] [address] [place] [address] Dr. Kizzy Hook Hematocrit (Bld) [Volume fraction] 41.7 % Normal 36.0-48.0 [facility] Comment on above: Performed By: #### C BC #### [facility] [address] [place] [address] Dr. Kizzy Hook Hemoglobin (Bld) [Mass/Vol] 13.5 g/dL Normal 12.0-16.0 [facility] Comment on above: Performed By: #### C BC #### [facility] [address] [place] [address] Dr. Kizzy Hook IG # 0.08 10e3/ul Critically high 0.00-0.03 [facility] Comment on above: Performed By: #### C BC #### [facility] [address] [place] [address] Dr. Kizzy Hook IG % 0.9 % Critically high 0.0-0.5 [facility] Comment on above: Performed By: #### C BC #### [facility] [address] [place] [address] Dr. Kizzy Hook LYMPH # 1.7 103/ul Normal 1.2-3.8 [facility] Comment on above: Performed By: #### C BC #### [facility] [address] [place] [address] Dr. Kizzy Hook Lymphocytes/100 WBC (Bld) 19.1 % Critically low 20.5-60.0 [facility] Comment on above: Performed By: #### C BC #### [facility] [address] [place] [address] Dr. Kizzy Hook MANUAL DIFF REQ NO Normal [facility] Comment on above: Performed By: #### C BC #### [facility] [address] [place] [address] Dr. Kizzy Hook MCH (RBC) [Entitic mass] 31.2 pg Normal 26.7-34.0 [facility] Comment on above: Performed By: #### C BC #### [facility] [address] [place] [address] Dr. Kizzy Hook MCHC (RBC) [Mass/Vol] 32.4 g/dL Normal 29.9-35.2 [facility] Comment on above: Performed By: #### C BC #### [facility] [address] [place] [address] Dr. Kizzy Hook MCV (RBC) [Entitic vol] 96.3 fL Normal 81.0-99.0 [facility] Comment on above: Performed By: #### C BC #### [facility] [address] [place] [address] Dr. Kizzy Hook MONO # 0.6 103/ul Normal 0.3-0.8 [facility] Comment on above: Performed By: #### C BC #### [facility] [address] [place] [address] Dr. Kizzy Hook Monocytes/100 WBC (Bld) 6.7 % Normal 1.7-12.0 [facility] Comment on above: Performed By: #### C BC #### [facility] [address] [place] [address] Dr. Kizzy Hook NEUT # 6.2 103/ul Normal 1.4-6.5 [facility] Comment on above: Performed By: #### C BC #### [facility] [address] [address] [address] Kizzy Hook Neutrophils/100 WBC (Bld) 71.4 % Normal 43.0-75.0 [facility] Comment on above: Performed By: #### C BC #### [facility] [address] [address] [address] Kizzy Hook Platelet mean volume (Bld) [Entitic vol] 9.5 fL Normal 9.5-13.5 [facility] Comment on above: Performed By: #### C BC #### [facility] [address] [place] [address] Dr. Kizzy Hook PLT 272 103/ul Normal 150-450 [facility] Comment on above: Performed By: #### C BC #### [facility] [address] [place] [address] Dr. Kizzy Hook RBC 4.33 106/ul Normal 4.20-5.40 [facility] Comment on above: Performed By: #### C BC #### [facility] [address] [place] [address] Dr. Kizzy Hook WBC 8.7 103/ul Normal 4.0-11.0 [facility] Comment on above: Performed By: #### C BC #### [facility] [address] [place] [address] Dr. Kizzy Hook CRPon 01-15-2022 CRP 0.6 mg/dL Normal <=1.0 [facility] Comment on above: Performed By: #### C MP, T7, CRP, TSH, URIC ####[facility] [address] [address]Dr. Kizzy Hook FREE THYROXINE INDEX T7on FTI 2.85 Normal 1.30-4.50 [facility] Comment on above: Performed By: #### C MP, T7, CRP, TSH, URIC ####[facility] [address] [address]Dr. Kizzy Hook T3U 30.0 % Normal 30.0-39.0 [facility] Comment on above: Performed By: #### C MP, T7, CRP, TSH, URIC ####[facility] [address] [address]Dr. Kizzy Hook T4 [Mass/Vol] 9.50 ug/dL Normal 4.80-13.90 [facility] Comment on above: Performed By: #### C MP, T7, CRP, TSH, URIC ####[facility] [address] [address]Dr. Kizzy Hook PROF 14(COMP METB)on 022 Albumin [Mass/Vol] 4.0 g/dL Normal 3.4-5.0 [facility] Comment on above: Performed By: #### C MP, T7, CRP, TSH, URIC ####[facility] [address] [address]Dr. Kizzy Hook Albumin/Globulin [Mass ratio] 1.1 {ratio} Normal [facility] Comment on above: Performed By: #### C MP, T7, CRP, TSH, URIC ####[facility] [address] [address]Dr. Kizzy Hook ALP [Catalytic activity/Vol] 188 U/L Critically high 46-116 [facility] Comment on above: Performed By: #### C MP, T7, CRP, TSH, URIC ####[facility] [address] [address]Dr. Kizzy Hook ALT [Catalytic activity/Vol] 60 U/L Critically high 14-59 [facility] Comment on above: Performed By: #### C MP, T7, CRP, TSH, URIC ####[facility] [address] [address]Dr. Kizzy Hook Anion gap [Moles/Vol] 13.7 mmol/L Normal [facility] Comment on above: Performed By: #### C MP, T7, CRP, TSH, URIC ####[facility] [address] [address]Dr. Kizzy Hook AST [Catalytic activity/Vol] 27 U/L Normal 15-37 [facility] Comment on above: Performed By: #### C MP, T7, CRP, TSH, URIC ####[facility] [address] [address]Dr. Kizzy Hook Bilirubin [Mass/Vol] 0.3 mg/dL Normal 0.2-1.0 [facility] Comment on above: Performed By: #### C MP, T7, CRP, TSH, URIC ####[facility] [address] [place], [place] [address]Dr. Kizzy Hook Calcium [Mass/Vol] 9.3 mg/dL Normal 8.5-10.1 [facility] Comment on above: Performed By: #### C MP, T7, CRP, TSH, URIC ####[facility] [address] [place], [place] [address]Dr. Kizzy Hook Chloride [Moles/Vol] 101 mmol/L Normal 98-107 [facility] Comment on above: Performed By: #### C MP, T7, CRP, TSH, URIC ####[facility] [address] [place], [place] [address]Dr. Kizzy Hook CO2 [Moles/Vol] 27.4 mmol/L Normal 21.0-32.0 [facility] Comment on above: Performed By: #### C MP, T7, CRP, TSH, URIC ####[facility] [address] [place], [place] [address]Dr. Kizzy Hook Creatinine [Mass/Vol] 0.65 mg/dL Normal 0.55-1.02 [facility] Comment on above: Performed By: #### C MP, T7, CRP, TSH, URIC ####[facility] [address] [address]Dr. Kizzy Hook EGFR-AF CYMRO >60 Normal >=60 [facility] Comment on above: Performed By: #### C MP, T7, CRP, TSH, URIC ####[facility] [address] [place], [place] [address]Dr. Kizzy Hook EGFR-NON AF CYMRO >60 Normal >=60 [facility] Comment on above: Performed By: #### C MP, T7, CRP, TSH, URIC ####[facility] [address] [address]Dr. Kizzy Hook Globulin (S) [Mass/Vol] 3.5 g/dL Normal [facility] Comment on above: Performed By: #### C MP, T7, CRP, TSH, URIC ####[facility] [address] [address]Dr. Kizzy Hook Glucose [Mass/Vol] 162 mg/dL Critically high 74-106 T [facility] Comment on above: Performed By: #### C MP, T7, CRP, TSH, URIC ####[facility] [address] [place], [place] [address]Dr. Kizzy Hook Potassium [Moles/Vol] 4.1 mmol/L Normal 3.5-5.1 [facility] Comment on above: Performed By: #### C MP, T7, CRP, TSH, URIC ####[facility] [address] [place], [place] [address]Dr. Kizzy Hook Protein [Mass/Vol] 7.5 g/dL Normal 6.4-8.2 [facility] Comment on above: Performed By: #### C MP, T7, CRP, TSH, URIC ####[facility] [address] [place], [place] [address]Dr. Kizzy Hook Sodium [Moles/Vol] 138 mmol/L Normal 136-145 [facility] Comment on above: Performed By: #### C MP, T7, CRP, TSH, URIC ####[facility] [address] [place], [place] [address]Dr. Janellan Hook Urea nitrogen [Mass/Vol] 11.0 mg/dL Normal 7.0-18.0 [facility] Comment on above: Performed By: #### C MP, T7, CRP, TSH, URIC ####[facility] [address] [place], [place] [address]Dr. Kizzy Hook Urea nitrogen/Creatinine [Mass ratio] 16.9 mg/mg Normal [facility] Comment on above: Performed By: #### C MP, T7, CRP, TSH, URIC ####[facility] [address] [place], [place] [address]Jt. Kizzy Hook TSHon 01-15-2022 TSH 0.466 uIU/mL Normal 0.358-3.740 [facility] [place] Comment on above: Performed By: #### C MP, T7, CRP, TSH, URIC ####[facility] [address] [place], [place] [address]Uy. Kizzy Hook URIC ACID SERUMon 01-15-2022 Urate [Mass/Vol] 3.6 mg/dL Normal 2.6-6.0 [facility] Comment on above: Performed By: #### C MP, T7, CRP, TSH, URIC ####[facility] [address] [place], [place] [address]Ev. Kizzy Hook Vital Signs Date Time Vital Sign Value Performing Clinician Facility 01-31-2025 12:38-0400 Body height 156 cm Serenity Saavedra MD, PhD Work Phone: [facility] 01-31-2025 12:38-0400 Body mass index (BMI) [Ratio] 26.71 kg/m2 Serenity Saavedra MD, PhD Work Phone: [facility] 01-31-2025 12:38-0400 Body temperature 98.01 [degF] Serenity Saavedra MD, PhD Work Phone: [facility] 01-31-2025 12:38-0400 Body weight 65 kg Serenity Saavedra MD, PhD Work Phone: [facility] 01-31-2025 12:38-0400 Diastolic blood pressure 95 mm[Hg] Serenity Saavedra MD, PhD Work Phone: [facility] Comment on above: Left arm sitting 01-31-2025 12:38-0400 Heart rate 85 /min Serenity Saavedra MD, PhD Work Phone: [facility] 01-31-2025 12:38-0400 Respiratory rate 15 /min Serenity Saavedra MD, PhD Work Phone: [facility] 01-31-2025 12:38-0400 SaO2% (BldA) [Mass fraction] 99 % Serenity Saavedra MD, PhD Work Phone: [facility] 01-31-2025 12:38-0400 Systolic blood pressure 146 mm[Hg] Serenity Saavedra MD, PhD Work Phone: [facility] Comment on above: Left arm sitting 10-16-2024 10:20-0400 Diastolic blood pressure 76 mm[Hg] Mohamad Mouchli [facility] 10-16-2024 10:20-0400 Heart rate 73 /min Mohamad Mouchli [facility] 10-16-2024 10:20-0400 Mean blood pressure 91 mm[Hg] Mohamad Mouchli [facility] 10-16-2024 10:20-0400 Respiratory rate 18 /min Mohamad Mouchli [facility] 10-16-2024 10:20-0400 SaO2% (BldA) [Mass fraction] 97 % Mohamad Mouchli [facility] 10-16-2024 10:20-0400 Systolic blood pressure 120 mm[Hg] Mohamad Mouchli [facility] 10-16-2024 10:05-0400 SaO2% (BldA) [Mass fraction] 96 % Mohamad Mouchli [facility] 10-16-2024 10:05-0400 Respiratory rate 18 /min Mohamad Mouchli [facility] 10-16-2024 10:05-0400 Heart rate 77 /min Mohamad Mouchli [facility] 10-16-2024 10:05-0400 Diastolic blood pressure 52 mm[Hg] Mohamad Mouchli [facility] 10-16-2024 10:05-0400 Mean blood pressure 65 mm[Hg] Mohamad Mouchli [facility] 10-16-2024 10:05-0400 Systolic blood pressure 90 mm[Hg] Mohamad Mouchli [facility] 10-16-2024 10:00-0400 Heart rate 78 /min Mohamad Mouchli [facility] 10-16-2024 10:00-0400 SaO2% (BldA) [Mass fraction] 97 % Mohamad Mouchli [facility] 10-16-2024 10:00-0400 Respiratory rate 19 /min Mohamad Mouchli [facility] 10-16-2024 10:00-0400 Body temperature 97.7 [degF] Mohamad Mouchli [facility] 10-16-2024 10:00-0400 Diastolic blood pressure 54 mm[Hg] Mohamad Mouchli [facility] 10-16-2024 10:00-0400 Systolic blood pressure 87 mm[Hg] Mohamad Mouchli [facility] 10-16-2024 09:50-0400 Respiratory rate 22 /min Mohamad Mouchli [facility] 10-16-2024 09:45-0400 Respiratory rate 24 /min Mohamad Mouchli [facility] 10-16-2024 08:13-0400 Blood Pressure Location Roseline Melendrez [facility] 10-16-2024 08:13-0400 Body temperature 96.8 [degF] Roseline Rosalesli [facility] 10-16-2024 08:13-0400 Respiratory rate 20 /min Ana Liliabecky Connieli [facility] 06-02-2024 09:22-0500 Blood Pressure Location Roseline Rosalescrystal [facility] 06-02-2024 09:22-0500 Diastolic blood pressure 83 mm[Hg] Roseline Rosalesli [facility] 06-02-2024 09:22-0500 Respiratory rate 16 /min Roseline Rosalesli [facility] 06-02-2024 09:22-0500 Systolic blood pressure 118 mm[Hg] Roseline Rosalesli [facility] 04-10-2024 07:16-0400 Body height 157.48 cm [facility] 04-10-2024 07:16-0400 Body mass index (BMI) [Ratio] 30.4 kg/m2 [facility] 04-10-2024 07:16-0400 Body weight 75.4 kg [facility] 04-10-2024 07:16-0400 Diastolic blood pressure 75 mm[Hg] [facility] 04-10-2024 07:16-0400 Heart rate 84 /min [facility] 04-10-2024 07:16-0400 Respiratory rate 18 /min [facility] 04-10-2024 07:16-0400 SaO2% (BldA) [Mass fraction] 94 % [facility] 04-10-2024 07:16-0400 Systolic blood pressure 122 mm[Hg] [facility] 03-08-2024 10:56-0400 Body height 157.48 cm [facility] 03-08-2024 10:56-0400 Body mass index (BMI) [Ratio] 30.8 kg/m2 [facility] 03-08-2024 10:56-0400 Body weight 76.43 kg [facility] 03-08-2024 10:56-0400 Diastolic blood pressure 91 mm[Hg] [facility] 03-08-2024 10:56-0400 Heart rate 87 /min [facility] 03-08-2024 10:56-0400 Respiratory rate 18 /min [facility] 03-08-2024 10:56-0400 SaO2% (BldA) [Mass fraction] 94 % [facility] 03-08-2024 10:56-0400 Systolic blood pressure 134 mm[Hg] [facility] 06-03-2022 14:33-0500 Blood Pressure Location Odalys Marxz [facility] 06-03-2022 14:33-0500 Body temperature 96.98 [degF] Odalys Marxz [facility] 06-03-2022 14:33-0500 Diastolic blood pressure 84 mm[Hg] Odalys Cruzmetz [facility] 06-03-2022 14:33-0500 Heart rate 92 /min Odalys Marxz [facility] 06-03-2022 14:33-0500 Systolic blood pressure 128 mm[Hg] Odalysmain CruzBlake [facility] 05-22-2022 08:50-0500 Diastolic blood pressure 95 mm[Hg] Pandey SALAM [facility] 05-22-2022 08:50-0500 Heart rate 77 /min Pandey SALAM [facility] 05-22-2022 08:50-0500 Respiratory rate 17 /min Pandey SALAM [facility] 05-22-2022 08:50-0500 SaO2% (BldA) [Mass fraction] 95 % Pandey SALAM [facility] 05-22-2022 08:50-0500 Systolic blood pressure 133 mm[Hg] Pandey SALAM [facility] 05-22-2022 08:35-0500 Diastolic blood pressure 89 mm[Hg] Pandey SALAM [facility] 05-22-2022 08:35-0500 Heart rate 80 /min Pandey SALAM [facility] 05-22-2022 08:35-0500 Respiratory rate 20 /min Pandey SALAM [facility] 05-22-2022 08:35-0500 SaO2% (BldA) [Mass fraction] 95 % Pandey SALAM [facility] 05-22-2022 08:35-0500 Systolic blood pressure 127 mm[Hg] Pandey SALAM [facility] 05-22-2022 08:30-0500 Diastolic blood pressure 87 mm[Hg] Pandey SALAM [facility] 05-22-2022 08:30-0500 Heart rate 85 /min Pandey SALAM [facility] 05-22-2022 08:30-0500 Respiratory rate 20 /min Pandey SALAM [facility] 05-22-2022 08:30-0500 SaO2% (BldA) [Mass fraction] 96 % Pandey SALAM [facility] 05-22-2022 08:30-0500 Systolic blood pressure 126 mm[Hg] Pandey SALAM [facility] 05-22-2022 08:24-0500 Body temperature 97.52 [degF] Pandey SALAM [facility] 05-22-2022 07:20-0500 Blood Pressure Location Pandey SALAM [facility] 05-22-2022 07:20-0500 Body temperature 97.88 [degF] Pandey SALAM [facility] 04-14-2022 12:03-0400 Blood Pressure Location Pandey SALAM [facility] 04-14-2022 12:03-0400 Diastolic blood pressure 64 mm[Hg] Pandey SALAM [facility] 04-14-2022 12:03-0400 Heart rate 88 /min Pandey SALAM [facility] 04-14-2022 12:03-0400 SaO2% (BldA) [Mass fraction] 96 % Pandey SALAM [facility] 04-14-2022 12:03-0400 Systolic blood pressure 131 mm[Hg] Pandey SALAM [facility] 03-11-2022 10:45-0400 Body height 157.48 cm [employer] Other [employer] Other 03-11-2022 10:45-0400 Body mass index (BMI) [Ratio] 29.81 kg/m2 [employer] Other [employer] Other 03-11-2022 10:45-0400 Body weight 73.94 kg [employer] Other [employer] Other 03-11-2022 10:45-0400 Diastolic blood pressure 79 mm[Hg] Tondra Mapus Other [employer] Other 03-11-2022 10:45-0400 Respiratory rate 16 /min Tondra Mapus Other [employer] Other 03-11-2022 10:45-0400 SaO2% (BldA) [Mass fraction] 97 % Tondra Mapus Other [employer] Other 03-11-2022 10:45-0400 Systolic blood pressure 115 mm[Hg] Tondra Mapus Other [employer] Other 02-18-2022 12:00-0400 Body height 157.48 cm Tondra Mapus Other [employer] Other 02-18-2022 12:00-0400 Body mass index (BMI) [Ratio] 30.36 kg/m2 Tondra Mapus Other [employer] Other 02-18-2022 12:00-0400 Body weight 75.3 kg Tondra Mapus Other [employer] Other 02-18-2022 12:00-0400 Diastolic blood pressure 79 mm[Hg] Tondra Mapus Other [employer] Other 02-18-2022 12:00-0400 Respiratory rate 16 /min Tondra Mapus Other [employer] Other 02-18-2022 12:00-0400 SaO2% (BldA) [Mass fraction] 98 % Tondra Mapus Other [employer] Other 02-18-2022 12:00-0400 Systolic blood pressure 112 mm[Hg] Dewey Davidson Other [employer] Other Encounters Encounter Date Encounter Type Care Provider Facility Start: 03-05-2025 End: 03-05-2025 Telephone encounter Serenity Saavedra MD, PhD Work Phone: Hematology/Oncology Comment on above: Patient Question Start: 01-31-2025 End: 01-31-2025 ambulatory KAITLYN M Eduardo Facility:[facility] Start: 01-31-2025 End: 01-31-2025 Patient encounter procedure Serenity Saavedra MD, PhD Work Phone: Hematology/Oncology Start: 01-31-2025 End: 01-31-2025 ambulatory Serenity Saavedra MD, PhD Work Phone: Hematology/Oncology Comment on above: Clonal hematopoiesis of indeterminate potential (Primary Dx) Start: 01-23-[address] [facility] Start: 01-23-2025 End: 01-23-2025 ambulatory [facility] Start: 01-19-[address] [facility] Start: 01-11-2025 End: 01-11-2025 Office outpatient visit 15 minutes Cade Peng MD Work Phone: [facility] Comment on above: Seborrheic keratosis (Primary Dx); Lentigines; Epidermal inclusion cyst; Capillary angioma Start: 01-11-2025 End: 01-11-2025 ambulatory CADE PENG Not Available Start: 01-11-2025 End: 01-11-2025 Bamboo flowsheet Cade Peng MD Work Phone: [facility] Start: 01-11-2025 End: 01-11-2025 Bamboo flowsheet Cade Peng MD Work Phone: [facility] Start: 12-27-2024 End: 12-27-2024 ambulatory [facility] Start: 12-25-2024 ambulatory Roseline Melendrez [facility] lity:Michelle Start: 11-23-2024 ambulatory [facility] Start: 11-23-2024 [facility] Start: 11-11-2024 Evaluation and management of inpatient HAL [facility] Start: 11-10-2024 Evaluation and management of inpatient [facility] Start: 11-10-2024 Evaluation and management of inpatient [facility] Start: 11-09-2024 End: 11-14-2024 Evaluation and management of inpatient KAITLYN JOY [facility] Start: 11-07-2024 End: 11-07-2024 ambulatory Kaitlyn Joy Facility:[facility] Start: 11-07-2024 End: 11-07-2024 Departed Referred Jose Eduardo Ann DO Work Phone: [facility] Start: 11-07-2024 End: 11-07-2024 ambulatory Jose Eduardo Ann Facility:[facility] Start: 11-07-2024 End: 11-07-2024 Departed Referred Jose Eduardo Ann DO Work Phone: [facility] Start: 10-31-2024 End: 10-31-2024 ambulatory Roseline Melendrez Facility:[facility] Start: 10-27-2024 End: 10-27-2024 ambulatory Roseline Melendrez [facility] Start: 10-27-2024 End: 10-27-2024 Patient encounter procedure Roseline Melendrez [facility] Start: 10-16-2024 End: 10-16-2024 ambulatory Ana Liliad Adair. Parvin Facility:[facility] Start: 10-16-2024 End: 10-16-2024 Patient encounter procedure Ana Liliad Adair. Parvin [facility] Start: 10-10-2024 End: 10-10-2024 ambulatory [facility]ived A. [facility] Start: 09-11-2024 End: 09-11-2024 ambulatory Mohclived A. Parvin [facility] Start: 06-12-2024 End: 06-12-2024 ambulatory Mohclived A. Parvin Facility:[facility] Start: 06-12-2024 End: 06-12-2024 Patient encounter procedure Roseline Borrero. Parvin [facility] Start: 06-02-2024 End: 06-02-2024 ambulatory Ana Liliad A. Parvin Facility:[facility] Start: 06-02-2024 End: 06-02-2024 Patient encounter procedure Ana Liliad A. Connieli [facility] Start: 04-10-2024 End: 04-10-2024 ambulatory [facility] Work Phone: Start: 04-10-2024 End: 04-10-2024 Patient encounter procedure [facility] Work Phone: Start: 03-09-2024 End: 03-09-2024 ambulatory [facility] Work Phone: Start: 03-09-2024 End: 03-09-2024 Patient encounter procedure [facility] Phys[facility] Work Phone: Start: 03-08-2024 End: 03-08-2024 ambulatory [facility] Work Phone: Start: 03-08-2024 End: 03-08-2024 Patient encounter procedure [facility] Phys[facility] Work Phone: Start: 08-11-2023 Bamboo flowsheet Rosa jimenez CCC-A [...] End: 05-31-2023 Patient encounter procedure Saran Morales [facility] Start: 09-12-2022 End: 09-13-[address] KAITLYN JOY . Facility: Start: [address] KAITLYN JOY . Facili ty:[facility] Start: 06-16-2022 End: 06-16-2022 Patient encounter procedure Dannie STARKS [facility] Start: 06-03-2022 End: 06-03-2022 Patient encounter procedure Odalys Lozano [facility] Start: 05-26-2022 End: 05-26-2022 ambulatory Dewey Davidson Other [employer] Other Start: 05-26-2022 Telephone encounter Dewey Davidson [facility] Start: 05-22-2022 End: 05-22-2022 Patient encounter procedure Dannie STARKS [facility] Start: 04-15-2022 End: 04-15-2022 ambulatory Tondra Mapus Other [employer] Other Start: 04-15-2022 Telephone encounter Tondra Mapus [facility] Start: 04-14-2022 End: 04-14-2022 Patient encounter procedure Dannie STARKS [facility] Start: 04-09-2022 End: 04-09-2022 ambulatory Tondra Mapus Other [employer] Other Start: 04-09-2022 Telephone encounter Tondra Mapus [facility] Start: 03-24-2022 End: 04-30-2022 Pre-admission assessment Saran Main Gabrielanastasia [facility] Start: 03-16-2022 End: 03-17-2022 ambulatory SARAN MORALES Facility: Start: 03-11-2022 (DM) Diabetes Tondra Mapus [facility] Start: 03-11-2022 End: 03-11-2022 ambulatory Tondra Mapus Other [employer] Other Start: 03-10-2022 End: 03-10-2022 ambulatory Tondra Mapus Other [employer] Other Start: 03-10-2022 Telephone encounter Tondra Mapus [facility] Start: 03-03-2022 End: 03-03-2022 ambulatory Tondra Mapus Other [employer] Other Start: 03-03-2022 Telephone encounter Dewey Natarajan [facility] Start: 02-18-2022 End: 02-18-2022 ambulatory Dewey Davidson Other [employer] Other Start: 02-18-2022 [facility] visit new patient Dewey Bennett [facility] Start: 01-15-2022 End: 01-16-[address] KAITLYN JOY . Facility: Procedures Date Procedure Procedure Detail Performing Clinician Start: 10-16-2024 Esophagogastroduodenoscopy Roseline rojas Start: 08-11-2023 AUDITORY FUNCTION TESTS Rosa Kevin [facility] Work Phone: Start: 05-22-2022 Esophagogastroduodenoscopy Pandey [employer] Comment on above: gastric biopsy, gastritis, duodenal biop sy r/o celiac disease Start: 02-28-2019 Colonoscopy Serenity Saavedra MD, PhD Work Phone: Start: 09-10-2017 TVT with sling Pandey SALAM Abdominal hysterectomy Pandey SALAM Cholecystectomy Pandey SALAM Closed fracture of r ight wrist (disorder) Pandey SALAM ft (qualifier value) Pandey S ALAM History of arthropla sty of right knee Pandey SALAM History of cholecystectomy Statu s post cholecystectomy Roseline Melendrez History of cholecystectomy M nelida Melendrez Plan of Treatment Date Care Activity Detail Author Start: 10-20-2027 Screening for malign ant neoplasm of colon [facility] Start: 01-10-2026 End: 01-10-2026 Patient encounter procedure 01/10/2026 10:20 AM EDT Office Visit [facility] [address] [place] [address] Cade Peng MD [address] [place] [address] [facility] Start: 05-02-2025 End: 05-02-2025 Follow-up encounter 05/02/2025 2:00 PM EST Visit (SP) Office Hematology/Oncology [id number] [id number] [place] [address] [place] [address] FOLLOW UP Hematology/Oncology Comment on above: FOLLOW UP Start: 02-26-2025 Influenza vaccination Influenza Vacc ine (#1) [facility] Start: 01-11-2025 End: 01-11-2025 Patient encounter procedure 01/11/2025 2:45 PM EDT Office Visit [facility] [address] [place] [address] Cade Peng MD [address] [place] [address] Arrived [facility] Comment on above: Arrived Start: 11-07-2024 Bacteria identified in Urine by Culture Urine Culture [facility] Start: 11-07-2024 End: 11-07-2024 Urine culture [facility] Start: 01-11-2024 End: 01-11-2024 Patient encounter procedure 01/11/2024 11:00 AM EDT Office Visit [facility] [address] [place] [address] Cade Peng MD [address] [place] [address] [facility] Start: 08-25-2023 End: 08-25-2023 Patient encounter procedure 08/25/2023 9:10 AM EST Office Visit [facility] [address] [facility] [address] [place] [address] Saran Morales MD [address] [facility] [address] [place], [place] [id number] [facility] Start: 08-11-2023 End: 08-11-2023 Clinical Support 08/11/2023 9:30 AM EST Clinical Support [facility] [address] [facility] [address] [place] [address] Rosa Kevin, [facility] [address] [facility] [place] [address] Arrived [facility] Comment on above: Arrived Start: 2023 RSV Vaccine (1 - Ris k 60-74 years 1-dose series) RSV Vaccine (1 - Risk 60-74 years 1-dose series) [facility] Start: 02-26-2023 Influenza vaccination Influenza Vacc ine (#1) [facility] Start: 02-29-2020 Screening for malign ant neoplasm of colon Colonoscopy [facility] Start: 02-01-2020 Urine microalbumin profile DTaP,Tdap,Td Vaccine (2 - Td or Tdap) [facility] Start: 2008 Screening for malign ant neoplasm of colon [facility] Start: 2003 Screening for malign ant neoplasm of breast [facility] Start: 1993 Screening for malign ant neoplasm of cervix [facility] Start: 1984 Screening for malign ant neoplasm of cervix [facility] Start: 1982 Pneumococcal Vaccine : 50+ (1 of 2 - PCV) Pneumococcal Vaccine: 50+ (1 of 2 - PCV) [facility] Start: 1982 Shingrix Vaccine (1 of 2) Shingrix Vaccine (1 of 2) [facility] Start: 1981 Annual 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 babak Disease Visit Annual PCP Team Chronic Disease Visit [facility] Start: 1981 Depression Screening Depression Scre ening [facility] Start: 1981 Hepatitis B surface antibody level LDL Cholesterol [facility] Start: 1981 Hepatitis C screening Hepatitis C Sc maureen [facility] Start: 1973 Diabetic foot examination Diabetic Foot Exam [facility] Start: 1973 Glaucoma screening Dilated Retinal E xam [facility] Start: 1973 Hepatitis B screening Urine Albumin:Creatinine Ratio [facility] Start: 1973 Meningococcal B Vacc ine (1 of 4 - Increased Risk) Meningococcal B Vaccine (1 of 4 - Increased Risk) [facility] Start: 1968 Hemoglobin A1c measurement HbA1C [facility] Start: 1965 Meningococcal Conjug ate Vaccine (1 - Risk 2-dose series) Meningococcal Conjugate Vaccine (1 - Risk 2-dose series) [facility] Start: 09-27-1964 Hib Vaccine (1 of 1 - Risk 1-dose series) Hib Vaccine (1 of 1 - Risk 1-dose series) [facility] Start: 1963 Screening for malign ant neoplasm of colon [facility] Patient Education [facility] Work Phone: Immunizations Immunization Date Immunization Notes Care Provider Jem henry 03-28-2022 influenza virus vaccine, unspecified formulation Pandey SALAM [facility] 05-29-2021 influenza virus vaccine, unspecified formulation Pandey SALAM [facility] 05-29-2021 SARS-CoV-2 (COVID-19 ) mRNA BNT-162b2 vax Pandey SALAM [facility] 09-28-2020 SARS-CoV-2 (COVID-19 ) mRNA BNT-162b2 vax Pandey SALAM [facility] 09-07-2020 SARS-CoV-2 (COVID-19 ) mRNA BNT-162b2 vax Pandey SALAM [facility] 05-16-2018 influenza virus vaccine, unspecified formulation Pandey SALAM [facility] 05-04-2018 influenza virus vaccine, unspecified formulation Pandey SALAM [facility] 03-28-2015 influenza virus vaccine, unspecified formulation Roseline Melendrez [facility] 01-31-2010 tetanus toxoid, reduced diphtheria toxoid, and acellular pertussis vaccine, adsorbed Pandey SALAM [facility] NEGATED: Highlighted row has not occurred!06-03-2022 influenza virus vaccine, unspecified formulation Odalys Lozano [facility] Payers Date Payer Category Payer Medicare [id number] 2024 Medicare [id number] 2022 Private Health Insurance [id number] 2022 Unknown [id number] 1963 Unknown [id number] 1963 Unknown [id number] 1963 Unknown [id number] 1963 Unknown [id number] 1963 Unknown [id number] [id number] 1965 Unknown [id number] 2.16.8 [id number] 1965 Unknown [id number] 2.16.8 [id number] 1965 Unknown [id number] 2.16.8 [id number] 1965 Unknown [id number] 2.16.8 [id number] 1965 Unknown [id number] 2.16.8 [id number] 1965 Unknown [id number] 2.16.8 [id number] 1965 Unknown [id number] 2.16.8 [id number] 1965 Unknown [id number] 2.16.8 40.1.850172.3.579.2.7 1965 Unknown [id number] 2.16.8 40.1.627893.3.579.2.7 1965 Unknown [id number] 2.16.8 [id number] 1961 Self-pay [id number] 1961 Unknown [id number] 2. [id number] Self-pay Self Pay [id number] Unknown O [id number] Social History Date Type Detail Facility Unknown if ever smoked [employer] Other Start: 06-09-2023 End: 01-31-2025 Sex Assigned At [facility] Start: 04-14-2022 End: 10-10-2024 Tobacco smoking status Heavy tobacco smoker (finding) [facility] Start: 11-08-2024 Tobacco smoking status Never [facility] Start: 1965 Sex Assigned At Female F [facility] Start: 04-29-2023 End: 01-11-2024 Tobacco smoking status NHIS Smokes tobacco daily [facility] History of tobacco use Cigarette Smoker N [facility] Start: 04-29-2023 End: 01-31-2025 Cigarettes smoked current (pack per day) - Reported 1.5 [facility] Start: 04-29-2023 End: 01-11-2024 Tobacco use and exposure Smokeless tobacco non-user [facility] Start: 06-09-2023 End: 01-11-2025 Alcohol intake Ex-drinker (finding) [facility] Start: 05-02-2023 Alcohol Comment caffeine: yes, marianna meyer [facility] Start: 1965 Sex Assigned At Not on file N [facility] Start: 08-17-2017 Tobacco smoking stat [facility] Smoker (finding) [facility] Sexual Orientation [facility] Start: 10-09-2009 End: 11-09-2024 Sex Female (finding) [facility] Start: 02-02-2025 Tobacco smoking stat [facility] Ex-smoker [facility] Work Phone: Medical Equipment Procedure Code Equipment [...] Assessment Result Facility 10-16-2024 Functional Status N/A [facility] 06-02-2024 Functional Status N/A [facility] 06-03-2022 Functional Status N/A [facility] 05-22-2022 Functional Status N/A [facility] 04-14-2022 Functional Status N/A [facility] Clinical Notes 02-18-2022 to 03-05-2025 Telephone Encounter - Jaclyn Montes - 03/05/2025 9:43 AM EDTTelephone Encounter - Jaclyn Montes - 03/05/2025 9:43 AM HORACETSBridger ruiz LPN - 01/31/2025 12:38 PM EDT Note Date & Type Note Facility 03-05-2025 Telephone encount er Note Ms. Thomas called asking for lab orders to be faxed to [facility]; she wants to go for labs tomorrow. The fax number is [phone]. Selena [facility] Work Phone: 03-05-2025 Miscellaneous Notes Formattin g of this note might be different from the original. Ms. Thomas called asking for lab orders to be faxed to [facility]; she wants to go for labs tomorrow. The fax number is [phone]. Selena documented in this encounter [facility] 02-27-2025 Note Please send these re sults to patient's PCP [facility] 02-23-2025 Note Patient to follow up with pcp on elevated Ast and alphos . Ally, please give her a call on the same and ensure these results are sent to pcp . She may also follow up with me but pcp closer to home Юлия Starks MD [facility] 02-07-2025 Note [facility] Referral Lab 1 025 3:01 PM EDT [facility] Comment on above: Research 01-31-2025 Note HNO ID: [id number] Author: BRIDGER MITCHELL LPN Service: ? Author Type: LICENSED NURSE Type: Progress Notes Filed: 01/31/2025 12:39 Note Text: Additional intake questions: Has the patient had fever, nausea, vomiting, diarrhea, constipation, fatigue for > 1 week? Yes, nausea, vomiting, fatigue, and Provider Notified Does the patient have a decreased appetite? No Does patient want to see a Dietary Worker? No (yes to any of above refer [...] Center Electronically Signed By: Bridger Mitchell LPN [place] 01-31-2025 History of Present illness Narrative Additional intake questions: Has the patient had fever, nausea, vomiting, diarrhea, constipation, fatigue for > 1 week? Yes, nausea, vomiting, fatigue, and Provider Notified Does the patient have a decreased appetite? No Does patient want to see a Dietary Worker? No (yes to any of above refer [...] from the original note were not included. [facility] DEPARTMENT OF HEMATOLOGY AND MEDICAL ONCOLOGY MDS/LEUKEMIA CLINIC NEW CONSULT ____ STAFF PHYSICIAN: Dr. Serenity Saavedra MD, PhD Patient Name: Andreia Thomas DATE of SERVICE: February 01, 2025 Primary Care Physician: Kaitlyn Joy MD Reason for visit: pancytopenia r/o aplastic anemia History of Present Illness: Andreia Thomas is a 59 year old female with a PMHx of T2DM, hypothyroidism, presenting from [facility] after presenting with pancytopenia. Patient was initially admitted on 11/09/2024 at [facility] for confusion and weakness for the [...] present (5% of erythroid precursors DNMT3A: Chr2 (GRCh37):g.[id number]>A; NM_022552.4(DNMT3A):c.2311C>T; p.Dqq880* (3%). Karyotype: 46,XX[20]. Interval History: Patient, accompanied by her , presents to establish care. She states that she feels well [...] present (5% of erythroid precursors DNMT3A: Chr2 (GRCh37):g.[id number]>A; NM_022552.4(DNMT3A):c.2311C>T; p.Zoj029* (3%). - Her Plasma cell dyscrasia work [...] 2025 3:13 PM documented in this encounter [facility] 01-31-2025 Note HNO ID: [id number] Author: ANGI HALEY MD Service: ? Author Type: Resident Type: Progress Notes Filed: 02/08/2025 13:11 Note Text: [facility] DEPARTMENT OF HEMATOLOGY AND MEDICAL ONCOLOGY MDS/LEUKEMIA CLINIC NEW CONSULT ____ STAFF PHYSICIAN: Dr. Serenity Saavedra MD, PhD Patient Name: Andreia Thomas DATE of SERVICE: February 01, 2025 Primary Care Physician: Kaitlyn Joy MD Reason for visit: pancytopenia r/o aplastic anemia History of Present Illness: Andreia Thomas is a 59 year old female with a PMHx of T2DM, hypothyroidism, presenting from [facility] after presenting with pancytopenia. Patient was initially admitted on 11/09/2024 at [facility] for confusion and weakness for the [...] present (5% of erythroid precursors DNMT3A: Chr2 (GRCh37):g.[id number]>A; NM_022552.4(DNMT3A):c.2311C>T; p.Mnh962* (3%). Karyotype: 46,XX[20]. Interval History: Patient, accompanied by her , presents to [facility] care. She states that she feels well [...] Low 2.6 L (more content not included)... [place] 01-23-2025 Note HEMATOLOGY and MEDIC AL ONCOLOGY Dr. Betty Edmondson MD / MD Gaby Suazo, GIGI / Sophy Hurt CNP / SUNITA Alonzo Patient Name: Andreia Thomas Date of : [...] mutation and hypercellular marrow will refer to [facility] Bone marrow biopsy 11/10/2024 showed Hypercellular bone marrow for age with erythroid predominance and trilineage dysplasia; no increase in blasts. Mildly increased storage iron; ring sideroblasts present (5% of erythroid precursors , NGS shows pathogenetic mutation but counts fully recovered and Gaining weight Plan: [facility] and follow up cbc Follow up [...] Addendum 2 Ancillary studies were completed at [facility]: Myeloid neoplasms, NGS, V, bone marrow: - Pathogenic mutations detected: 1.) DNMT3A: Chr2 (GRCh37):g.[id number]>A; NM_022552.4(DNMT3A):c.2311C>T; p.Ypu173* (3%). Addendum electronically signed by Krysten Foster MD on 11/28/2024 at 1150 EDT Addendum Ancillary studies were completed at [facility]: Chromosomes, hematologic, bone marrow: - [...] Addendum 2 Ancillary studies were completed at [facility]: Myeloid neoplasms, NGS, V, bone marrow: - Pathogenic mutations detected: 1.) DNMT3A: Chr2 (GRCh37):g.[id number]>A; NM_022552.4(DNMT3A):c.2311C>T; p.Fvp765* (3%). Addendum electronically signed by Krysten Foster MD on 11/28/2024 at 1150 ED She is seeing GI for scopes, denies symptoms and is gaining weight HPI: Andreia Thomas is a 59 y.o.-year-old female with PMH of DM2, dyslipidemia, hypothyroidism and anxiety who was admitted to [facility] due to confusion and weakness for the past 4-6 weeks. Spouse at bedside reports that she had been confused ON and OFF, although she is completely alert and oriented today. CT Head at [facility] was unremarkable, CT A/P was unremarkable. She was noted to have pancytopenia with WBC 2.2, Hb 5.3 and PLT 31, for which she was transferred to [facility]. Her blood work up available from [...] anemia and thrombocytopenia (more content not included)... [facility] 01-11-2025 History of Present illness Narrative Skin [...] Examined Right arm Examined Patient wearing nail macedonian Left arm Examined Lymphatics: Not examined Hands [...] year skin check documented in this encounter [facility] 12-27-2024 Note Attestation signed by Bravo Stahl [...] few days prior to October hospitalization. At [facility], CT of the head was completed [...] blood which did improve hemoglobin. Physician at [facility] reached out to her hematology/oncology team and they recommend transferring patient for further workup and bone marrow biopsy. Patient was seen by hematology team as inpatient. She underwent significant work up for her pancytopenia. Labs ordered include, HIV (negative), [id number], LDH (high), retic count (normal). Sneha negative. [...] Intimate Partner Viol (more content not included)... [facility] 11-23-2024 Note Keep planned appoint ment Юлия Starks MD [facility] 11-23-2024 Note Attestation signed by Юлия Starks [...] Betty Edmondson MD / MD Gaby Suazo, BETSYP / Sophy Hurt CNP / Juli Harris [...] hypothyroidism and anxiety who was admitted to [facility] due to confusion and weakness for the past 4-6 weeks. Spouse at bedside reports that she had been confused ON and OFF, although she is completely alert and oriented today. CT Head at [facility] was unremarkable, CT A/P was unremarkable. She was noted to have pancytopenia with WBC 2.2, Hb 5.3 and PLT 31, for which she was transferred to [facility]. Her blood work up available from [...] (48.4 ttl pk-yrs (more content not included)... [facility] 11-14-2024 Note Hospital Medicine Discharge Summary Final Discharge Diagnosis: Pancytopenia - improving Status post bone marrow biopsy Symptomatic anemia Syncope - resolved Vitamin B12 deficiency Iron deficiency Acute encephalopathy - resolved Acute cystitis without hematuria Vitamin D deficiency Transaminitis - resolved Insulin dependent diabetes mellitus type II Acquired hypothyroidism GERD Anxiety Moderate protein-calorie malnutrition Admission Diagnosis: Pancytopenia (CMS/HCC) [D61.818] Hospital course: Ms. Andreia Thomas is an 59 y.o. female who came from home with past medical history of DM2, hypothyroidism, GERD, hyperlipidemia, anxiety. She presented as a direct admission from [facility] with pancytopenia. Patient reports that she has had intermittent confusion over the last few days. at bedside also reports a syncopal episode this past Wednesday. Patient denies any prodromal symptoms. She is unclear if she hit her head. At [facility], CT of the head was completed [...] blood which did improve hemoglobin. Physician at [facility] reached out to her hematology/oncology team and they recommend transferring patient for further workup and bone marrow biopsy. Patient was admitted to hospitalist services for further evaluation and management. Patient was seen by hematology team as inpatient. She underwent significant work up for her pancytopenia. Labs ordered include, HIV (negative), [id number], LDH (high), retic count (normal). Sneha negative. [...] Center 11/30/2024 10:00 AM Haroldo Brown MD [facility] ON[facility] Your medication list START taking these medications Instructions Last Dose Given Next Dose Due cyanocobalamin 1,000 mcg tablet Commonly known as: Vitamin B-12 Start taking on: November 15, 2024 Take 1 tablet (1,000 mcg) by mouth in the morning for 97 doses. ergocalciferol 1.25 MG (98085 Units) capsule Commonly known as: Vitamin D-2 [...] Medications These medications were sent to [facility] - [place], [place] - [address], [facility] [address] cyano (more content not included)... [facility] 11-14-2024 Note Attestation signed by Betty Edmondson [...] edited in note) Betty Edmondson MD Manager Wound Care Benjamin Shell M.D. Endowed Professor in Hematology Chief of Hematology/Oncology Tank St[employer] Assembler, Hematology and Medical Oncology Fellowship Hematology/Oncology. Internal Medicine. [place] [facility] and [employer]. [facility] Clinic: [phone] Office: [phone] HEMATOLOGY and MEDICAL ONCOLOGY: [facility] ([facility] MD Dr. Юлия Mehta MD Patient name: Andreia Thomas Patient Today's Date and Time: 11/14/2024, 1:41 PM Admission Date: 11/09/2024 Impression: New onset pancytopenia Peripheral smear showed pancyopenia, LDH high, Haptoglobin low, bili was slightly elevated at [facility], normal here. Altered mental status, resolved here Macrocytosis Hypothyroidism DM2 Anxiety Recommendations: Bone marrow biopsy result pending, initial eval did not show schistocytes, blasts or promyelocytes. LDH high, Haptoglobin is low, retic count is normal, Sneha negative. [facility] flow cytometry, cold agglutinins and myeloma work up pending. BM biopsy done. Iron levels, B12 and Folate levels are adequate. ADAMTS [address] C/A/P negative for LAD to r/o lymphoma due to elevated LDH. Hb has been stable since 2 U PRBC transfusion at [facility]. PLT count has now improved over past [...] these hours, Please contact Hematology/Oncology Fellow through [employer] Chat first For Hematology Oncology needs on weekends and after hours, please page the on-call fellow through the hospital circle cutting saw operator. Subjective Reason for consultation / Chief complaint: Pancytopenia History of Present Illness Andreia Thomas is a 59 y.o.-year-old female with PMH of DM2, dyslipidemia, hypothyroidism and anxiety who was admitted to [facility] due to confusion and weakness for the past 4-6 weeks. Spouse at bedside reports that she had been confused ON and OFF, although she is completely alert and oriented today. CT Head at [facility] was unremarkable, CT A/P was unremarkable. She was noted to have pancytopenia with WBC 2.2, Hb 5.3 and PLT 31, for which she was transferred to [facility]. Her blood work up available from [...] History None T (more content not included)... [facility] 11-13-2024 Note -Concerning for B12 deficiency vs iatrogenic vs MDS vs MPN vs malignancy, less likely MAHA process -OSH smear showing rare schistocytes, repeat smear here negative for schistocytes -[id number] activity mildly low which is nonspecific, however [...] Plt <10 or <20 and active bleeding [facility] 11-13-2024 Note -RD following, see below [facility] 11-13-2024 Note -Continue rosuvastatin [facility] 11-13-2024 Note -Continue Protonix [facility] 11-13-2024 Note -Elevated at OSH but were unremarkable here -Hyperbilirubinemia, AST>ALT [facility] 11-13-2024 Note -Treated with 3 days CTX and levofloxacin 11/07- at outside hospital -UA negative -Currently asymptomatic [facility] 11-13-2024 Note -Continue levothyrox ine -TSH low with normal T4 -Does have tender thyroid, check US thyroid -On chart review, several changes to liothyronine, check T3 [facility] 11-13-2024 Note -ISS, [facility] 11-13-2024 Note -Continue Celexa [facility] 11-13-2024 Note -quiet systolic murm ur that was not heard on admission -likely this is high output -without schistocytes I do not feel overly compelled to obtain TTE at this point [facility] 11-13-2024 Note -Low at OSH and rece ived multiple doses IM replacement -Appropriate levels on recheck here [facility] 11-13-2024 Note -?2/2 UTI vs above p rocess -Aox2 on presentation however improved today -Did have syncopal episode prior to initial presentation -CT of the head negative at outside hospital [facility] 11-13-2024 Note Hospital Medicine Daily Progress Note - 11/13/2024 6:50 AM; Room: [address] [place], [place] [address]- Admission: 11/09/2024 6:46 PM; Length of stay: 4 days THE HOSPITALIST TEAM PREFERS TO USE [employer] FOR NON-URGENT COMMUNICATION 7AM-7PM. IF I DO NOT RESPOND WITHIN 20 MINUTES OR URGENT MATTERS, PLEASE CALL THROUGH THE COOLING TOWER TECHNICIAN. FROM 7PM-7AM, PLEASE PAGE [phone](COVR). Code Status: Full Code Barriers to Discharge: [...] schistocytes, repeat smear here negative for schistocytes -REUMTI41 activity mildly low which is nonspecific, however [...] Academy of Nutrition and Dietetics and the [place] Society of Enteral and Parenteral Nutrition, meets the diagnosis for malnutrition. A care plan has been established for this patient. VTE Prophylaxis: Contraindicated due to thrombocytopenia Scheduled Meds citalopram, 20 mg, oral, Nightly ergocalciferol, 50,000 Units, oral, Weekly insulin lispro, 0-5 Units, subcutaneous, TID with meals And insulin lispro, 0-4 Units, subcutaneous, Nightly iron sucrose, 200 mg, (more content not included)... [facility] 11-12-2024 Note -?2/2 UTI vs above p rocess -Aox2 on presentation however improved today -Did have syncopal episode prior to initial presentation -CT of the head negative at outside hospital [facility] 11-12-2024 Note -quiet systolic murm ur that was not heard on admission -likely this is high output -without schistocytes I do not feel overly compelled to obtain TTE at this point [facility] 11-12-2024 Note -Elevated at OSH but were unremarkable here -Hyperbilirubinemia, AST>ALT [facility] 11-12-2024 Note -Low at OSH and rece ived multiple doses IM replacement -Appropriate levels on recheck here [facility] 11-12-2024 Note -RD following, see [facility]-12[facility] Note -Continue Celexa [facility] 11-12-2024 Note -ISS, [facility] 11-12-2024 Note -Treated with 3 days CTX and levofloxacin 11/07- at outside hospital -UA negative -Currently asymptomatic [facility] 11-12-2024 Note -Continue Protonix [facility] 11-12-2024 Note -[facility] -Continue levothyrox ine -TSH low with normal T4 -Does have tender thyroid, check US thyroid -On chart review, several changes to liothyronine, check T3 [facility] 11-12-2024 Note -Concerning for B12 deficiency vs iatrogenic vs MDS vs MPN vs malignancy, less likely MAHA process -OSH smear showing rare schistocytes, repeat smear here negative for schistocytes -f/u [id number] activity, [facility] flow, BMBx results -CT imaging negative for LAD -Did have 5 days nitrofurantoin appx 1 month ago -HemOnc on board, grateful for their input -Daily CBC however minimize phlebotomy as much as possible (re: CMP every Mon/Thurs) -Transfuse for Hgb <7 -Transfuse for Plt <10 or <20 and active bleeding [facility] 11-12-2024 Note Attestation signed by Haroldo Brown MD at 11/22/2024 9:54 PM I performed a history and physical examination of the patient on 11/09/2024 and discussed his management with the resident. I reviewed the resident???s note and agree with the documented findings and plan of care. Aaron Brown MD [facility] Hematology and Oncology at [facility] [address] [place] [address] HEMATOLOGY and MEDICAL ONCOLOGY: [facility]) MD Dr. Юлия Mehta MD Patient name: Andreia Thomas Patient Today's Date and Time: 11/12/2024, 10:37 AM Admission Date: 11/09/2024 Impression: New onset pancytopenia Peripheral smear showed pancyopenia, LDH high, Haptoglobin low, bili was slightly elevated at [facility], normal here. P smear at [facility] does not show any schistocytes, CHARLIE negative, LDH ~3500, Hapto <3.5 Abs retic count is low for anemia. Bone marrow results awaited. PN flow awaited Recommend checking serology for CMV, [...] these hours, Please contact Hematology/Oncology Fellow through [employer] Chat first For Hematology Oncology needs on weekends and after hours, please page the on-call fellow through the hospital circle cutting saw operator. Subjective Reason for consultation / Chief complaint: Pancytopenia History of Present Illness Andreia Thomas is a 59 y.o.-year-old female with PMH of DM2, dyslipidemia, hypothyroidism and anxiety who was admitted to [facility] due to confusion and weakness for the past 4-6 weeks. Spouse at bedside reports that she had been confused ON and OFF, although she is completely alert and oriented today. CT Head at [facility] was unremarkable, CT A/P was unremarkable. She was noted to have pancytopenia with WBC 2.2, Hb 5.3 and PLT 31, for which she was transferred to [facility]. Her blood work up available from [...] Substance and S (more content not included)... [facility] 11-12-2024 Note Hospital Medicine Daily Progress Note - 11/12/2024 10:16 AM; Room: [facility]6/4116-01 Admission: 11/09/2024 6:46 PM; Length of stay: 3 days THE HOSPITALIST TEAM PREFERS TO USE [employer] CHAT FOR NON-URGENT COMMUNICATION 7AM-7PM. IF I DO NOT RESPOND WITHIN 20 MINUTES OR URGENT MATTERS, PLEASE CALL THROUGH THE COOLING TOWER TECHNICIAN. FROM 7PM-7AM, PLEASE PAGE [phone](COVR). Code Status: Full Code Barriers to Discharge: [...] repeat smear here negative for schistocytes -f/u [id number] activity, [facility] flow, BMBx results -CT imaging [...] Academy of Nutrition and Dietetics and the [place] Society of Enteral and Parenteral Nutrition, meets [...] Results from [place] (more content not included)... [facility] 11-11-2024 Note -Continue levothyrox ine -TSH low with normal T4 -Does have tender thyroid, check US thyroid [facility] 11-11-2024 Note -Treated with CTX at outside hospital -UA negative -Currently asymptomatic [facility] 11-11-2024 Note -Concerning for MDS vs MPN vs malignancy, less likely MAHA process -OSH smear showing rare schistocytes, repeat smear here negative for schistocytes -f/u [id number] activity, [facility] flow, BMBx results -CT imaging negative for LAD -HemOnc on board, grateful for their input -Daily CBC however minimize phlebotomy as much as possible (re: BMP every Mon/Thurs) -Transfuse for Hgb <7 -Transfuse for Plt <10 or <20 and active bleeding [facility] 11-11-2024 Note -quiet systolic murm ur that was not heard on admission -likely this is high output -without schistocytes I do not feel overly compelled to obtain TTE at this point [facility] 11-11-2024 Note -ISS, [facility] 11-11-2024 Note -RD following, see below [facility] [place] 11-11-2024 Note -Continue rosuvastatin [facility] 11-11-2024 Note -Continue Protonix [facility] 11-11-2024 Note -?2/2 UTI vs above p rocess -Aox2, reporting delirium that pt herself denies -Did have syncopal episode -CT of the head negative at outside hospital [facility] 11-11-2024 Note -Continue Celexa [facility] 11-11-2024 Note Hospital Medicine Daily Progress Note - 11/11/2024 6:52 AM; Room: [facility] Admission: 11/09/2024 6:46 PM; Length of stay: 2 days THE HOSPITALIST TEAM PREFERS TO USE [employer] FOR NON-URGENT COMMUNICATION 7AM-7PM. IF I DO NOT RESPOND WITHIN 20 MINUTES OR URGENT MATTERS, PLEASE CALL THROUGH THE COOLING TOWER TECHNICIAN. FROM 7PM-7AM, PLEASE PAGE [phone](COVR). Code Status: Full Code Barriers to Discharge: [...] repeat smear here negative for schistocytes -f/u [id number] activity, PNH flow, BMBx results -CT imaging [...] Academy of Nutrition and Dietetics and the [place] Society of Enteral and Parenteral Nutrition, meets [...] fL 107.0* 103.8* (more content not included)... [facility] 11-10-2024 Note -RD following, see below [facility] [place] 11-10-2024 Note -ISS, [facility] 11-10-2024 Note -Continue Celexa [facility] 11-10-2024 Note -Continue rosuvastatin [facility] 11-10-2024 Note -Continue levothyrox ine -TSH low with normal T4 [facility] 11-10-2024 Note -?2/2 UTI vs above p rocess -Aox2, reporting delirium that pt herself denies -Did have syncopal episode -CT of the head negative at outside hospital [facility] 11-10-2024 Note -Concerning for MDS vs MPN vs malignancy, less likely MAHA process -OSH smear showing rare schistocytes, repeat smear here -Check hemolysis labs, [id number] -HemOnc on board, grateful for their input -Will be undergoing BMBx today -Daily CBC however minimize phlebotomy as much as possible [facility] 11-10-2024 Note -Continue Protonix [facility] 11-10-2024 Note -Treated with CTX at outside hospital -Currently asymptomatic [facility] 11-10-2024 Note Adult Nutrition Asse ssment: Name: [...] 0513 NA 143 11/10/2024 0513 K 3.6 11/10/2024512 PHOS 2.9 11/09/20241945 MG 1.9 11/09/20241945 HGB 8.7 (L) 11/10/2024 05 AMMONIA 31 11/09/20241945 WBC 3.48 (L) 11/10/2024 05 POC glucose 105-156 Allergies: No Known Allergies [...] ideal body weight (50 kg) Calorie needs: 3934-6321 kcals/day based on Equation: 25-30 kcal/kg Protein [...] phosphorus, BMP) wnl (more content not included)... [facility] 11-10-2024 Note History: Pancytopeni a Procedure: 1. [...] and the preliminary interpretation by the hematology labor/excavator revealed adequate spicules. Repeat bone marrow aspirate [...] marrow biopsy Electronically signed: Scott Adam Vlparveen [facility] 11-10-2024 Note Hospital Medicine Daily Progress Note - 11/10/2024 3:16 PM; Room: [address] [place] [address] Admission: 11/09/2024 6:46 PM; Length of stay: 1 days THE HOSPITALIST TEAM PREFERS TO USE [employer] CHAT FOR NON-URGENT COMMUNICATION 7AM-7PM. IF I DO NOT RESPOND WITHIN 20 MINUTES OR URGENT MATTERS, PLEASE CALL THROUGH THE COOLING TOWER TECHNICIAN. FROM 7PM-7AM, PLEASE PAGE [phone](COVR). Code Status: Full Code Barriers to Discharge: [...] schistocytes, repeat smear here -Check hemolysis labs, [id number] -HemOnc on board, grateful for their input [...] Academy of Nutrition and Dietetics and the [place] Society of Enteral and Parenteral Nutrition, meets [...] 0750 11/09/24 2109 (more content not included)... [facility] 11-10-2024 Note 11/10/24 1100 Admission Assessment Questions [...] Status Interested Does the patient have a case operator assigned to them through their insurance? No [...] to send link and activate MyChart? No [facility] 11-10-2024 Note Case was discussed w [facility] the NANCY on 11/09/2024. I agree with the history, physical, assessment, and plan of care. I discussed the findings and therapeutic plan. I agree with the documentation, except for any updates below. Cookie Louis MD [facility] 11-09-2024 Note - Initial labs at [facility] found to be WBC 2.2, hemoglobin 5.3, platelet count 31 Repeat labs at [facility] show WBC 3.49, hemoglobin 8.4, platelet count 26 -Concern for TTP -Type and screen is been completed -Transfuse for hemoglobin less than 7 and a platelet count less than 10 unless actively bleeding -Hematology/oncology consult -N.p.o. at midnight for bone marrow biopsy [facility] 11-09-2024 Note - Continue Celexa [facility] 11-09-2024 Note - Continue Protonix [facility] 11-09-2024 Note - [facility] Note - Patient with inter mittent confusion as well as a syncopal episode which has since resolved -CT of the head negative at outside hospital -Suspect likely secondary to low hemoglobin [facility] 11-09-2024 Note - Patient reportedly with a positive UTI at outside hospital and was given Rocephin, patient currently denies any UTI symptoms, will hold on antibiotics at this time [facility] 11-09-2024 Note - [facility] - [facility] 11-09-2024 Note Hospital Medicine History and Physical 11/09/2024 11:41 PM THE HOSPITALIST TEAM PREFERS TO USE [employer] CHAT FOR NON-URGENT COMMUNICATION 7AM-7PM. IF I DO NOT RESPOND WITHIN 20 MINUTES OR URGENT MATTERS, PLEASE CALL THROUGH THE COOLING TOWER TECHNICIAN. FROM 7PM-7AM, PLEASE PAGE [phone](COVR). Chief Complaint Direct admission with pancytopenia History of Present Illness Andreia Thomas is an 59 y.o. female who came from home with past medical history of DM2, hypothyroidism, GERD, hyperlipidemia, anxiety presents as a direct admission from [facility] with pancytopenia. Patient reports that she has had intermittent confusion over the last few days. at bedside also reports a syncopal episode this past Wednesday. Patient denies any prodromal symptoms. She is unclear if she hit her head. At [facility], CT of the head was completed showing no acute intracranial abnormality. CT of the abdomen was completed showing no acute abnormality. Initial labs were completed showing WBC 2.2, RBC 1.26, hemoglobin 5.3, hematocrit 15.6, platelet count 31, INR 1.33, sodium 144, potassium 2.7, chloride 106, BUN 28, creatinine 0.81, calcium 8.3, total bilirubin 1.7, direct bilirubin 0.4, AST 122, ALT 30, alkaline ztahgwohmkg32, troponin 4.2. UA was reportedly found positive for UTI and patient was started on ceftriaxone. Patient was given 2 units of blood which did improve hemoglobin. Physician at [facility] reached out to her hematology/oncology team [...] Assessment and Plan Assessment & Plan Pancytopenia ([facility]) - Initial labs at [facility] found to be WBC 2.2, hemoglobin 5.3, platelet count 31 Repeat labs at [facility] show WBC 3.49, hemoglobin 8.4, platelet count [...] this time DM2 (diabetes mellitus, type 2) ([facility]) - ISS, [facility] Acquired hypothyroidism - Continue levothyroxine GERD (gastroesophageal reflux disease) - Continue Protonix HLD (hyperlipidemia) - Continue rosuvastatin Anxiety - Continue Celexa VTE Prophylaxis: Contraindicated due to thrombocytopenia ----- Focus of this inpatient stay will remain on problems that need acute care setting for care. We will review available studies and will order additional (more content not included)... [facility] 10-18-2024 Note Progress Note-Karen daniels Patient: ANDREIA [...] Type 2 diabetes mellitus / SNOMED CT 685572688 / Confirmed Thrombocytopenia / SNOMED CT 073533081 / Confirmed Smoker / IMO 347768 / Confirmed Added secondary to documentation in Social History. Sleep apnea / SNOMED CT 267045713 / Confirmed Pure hypercholesterolemia / SNOMED CT 890471740 / Confirmed Screen for colon cancer / SNOMED CT 616577322 / Confirmed Nausea / SNOMED CT 8308446503 / Confirmed Lesion of earlobe / SNOMED CT 010025745 / Confirmed Hypothyroidism / SNOMED CT 65780733 / Confirmed Hyperplastic colon polyp / SNOMED CT 2645202896 / Confirmed Hypercholesterolemia / SNOMED CT 66207769 / Confirmed History of colon polyps / SNOMED CT 0505573453 / Confirmed History of pancreatitis / SNOMED CT 3574586446 / Confirmed Status post cholecystectomy / SNOMED CT 2592088343 / Confirmed Heartburn / SNOMED CT 99661278 / Confirmed Thyromegaly / SNOMED CT 5266156 / Confirmed Stress incontinence / SNOMED CT 861889914 / Confirmed GERD (gastroesophageal reflux disease) / SNOMED CT 410254136 / Confirmed Gastritis / SNOMED CT 6947831 / Confirmed Acute epigastric pain / SNOMED CT 186811273 / Confirmed Epigastric pain / SNOMED CT 352013530 / Confirmed Early satiety / SNOMED CT 9597401061 / Confirmed Diverticulitis / SNOMED CT 051574868 / Confirmed Diabetes mellitus / SNOMED CT 497998249 / Confirmed Depression / SNOMED CT 51902401 / Confirmed Cirrhosis / SNOMED CT 99023444 / Confirmed Cervical disc disease / SNOMED CT 3605764657 / Confirmed Blood loss anemia / SNOMED CT 5689471651 / Confirmed Elevated alkaline phosphatase level / SNOMED CT 2344869353 / Confirmed Agoraphobia / SNOMED CT 688836940 / Confirmed Abdominal pain / SNOMED CT 05913030 / Confirmed Resolved: Thyroid dysfunction / SNOMED CT 950513556 Resolved: Panic disorder / SNOMED CT 7756230446 Resolved: FH: cholecystectomy / SNOMED CT 9328987874 Canceled: Abnormal cardiac CT angiography / SNOMED CT 0079530541 Histories Procedure history: Esophagogastroduodenoscopy (021181549) on 05/22/2022 at 56 Years. Comments: 05/22/2022 9:42 GIOVANI Soares RN, [place] gastric biopsy, gastritis, duodenal biopsy r/o celiac disease TVT with sling on 09/10/2017 at 52 Years. Abdominal hysterectomy (682336898). Cholecystectomy (04619193). History of arthroscopy right knee (956534445729687). feet b/l surgery (622959295). Closed fracture of right wrist (707603103274830). History of cholecystectomy (situation) (0649539975). Social History Social & Psychosocial Habits Alcohol 10/10/2024 Risk Assessment: Denies Alcohol Use Substance Abuse 10/10/2024 Risk Assessment: Denies Substance Abuse Tobacco 10/10/2024 Risk Assessment: High Risk 10/10/2024 Tobacco Use: 10 or more cigarettes (1/ . Physical Examination Airway: Mallampati classification: II (soft palate, fauces, uvula visible). Respiratory: adequate air exchange. Cardiovascular: Regular rhythm. Plan [place] Society of Anesthesiologists (ASA) physical status classification: Class III. Anesthetic Preoperative Plan: Anesthesia General, and Patient educated on benefits, alternatives and inherent risk of anesthesia including, but not all inclusive, Allergic reactions, dental damage, nerve damage and cardio-pulmonary complications and wishes to proceed with anesthetic plan.. [facility] Comment on above: Result Comment: Elec tronically Signed By: Mike Cheng Jr, DO\.br\Date and Time Signed: 10/18/24 07:32 EDT 10-18-2024 Note Progress Note-Physic jeremiah Patient: ANDREIA THOMAS Age: 59 years Sex: Female : 1965 Associated Diagnoses: None Author: Mike Cheng Jr, DO Postoperative Information Postoperative disposition: Postoperative disposition: To PACU. Optimetrix number: Optimetrix number [phone]. Anesthetic utilized: General. Health Status Allergies: Allergic [...] when meets criteria ( To home ). [facility] Comment on above: Result Comment: Elec tronically Signed By: Mike Cheng Jr, DO\aliyah\Date and Time Signed: 10/18/24 07:31 EDT 10-16-2024 [...] Follow these instructions at home: Medicines Take theh-ezs-pkajhyh and prescription medicines only as told by [...] powder, vinegar, hot sauces, and barbecue sauce. ?[place] fruit juices and citrus fruits, such as oranges, karl, and limes. ?Tomato-based foods, such as red sauce, chili, salsa, and pizza with red sauce. ?Fried and fatty foods, such as donuts, citizen of [place] fries, potato chips, and high-fat dressings. ?High-fat [...] provider. Document Revised: 12/23/2020 Document Reviewed: 12/23/2020 [employer] Patient Education 2023 [employer]. 10/16/2024 10:08:24 Gastritis, Adult, Whyv-fj-Wrbr Gastritis, Adult Gastritis is irritation and swelling [...] Follow these instructions at home: Medicines Take nuvr-tyx-ypfnpun and prescription medicines only as told by [...] provider. Document Revised: 10/18/2021 Document Reviewed: 10/18/2021 [employer] Patient Education 2023 [employer]. 10/16/2024 10:08:23 Hiatal Hernia Hiatal Hernia A [...] reduce GERD symptoms. Medicines. These may include: ?Fldp-nwz-fjchthk antacids. ?Medicines that make your stomach empty [...] may include: ?Fatty foods, like fried foods. ?[place] fruits, like oranges or lemon. ?Other foods [...] Do not drink alcohol. General instructions Take tnck-ojs-lnjovzm and prescription medicines only as told by [...] provider. Document Revised: 08/11/2022 Document Reviewed: 08/11/2022 [employer] Patient Education 2023 [employer] 10/16/2024 10:08:13 Endoscopy, Care After Procedure [facility] Endoscopy Care After Procedure Please read [...] 01/26/2005 Document Re-Released: 12/06/2006 ExitCare Patient Information [employer] [facility] 10-16-2024 Note Patient Education - Text [...] Document Re-Released: 12/06/2006 ExitCare??? Patient Information ???2009 [employer]. Gastroenterology Esophagitis Esophagitis is inflammation of the [...] these instructions at home: Medicines ??? Take eclp-ptv-wsjmjsd and prescription medicines only as told by your health care provider. ??? Do not take aspirin, ibuprofen, or other NSAIDs unless yo (more content not included)... [facility] 08-11-2023 History of Present illness Narrative History: [...] Type A tympanogram documented in this encounter [facility] 05-22-2022 Hospital Discharge instructions Patient Education 05/22/2022 [...] what activities are safe for you. Take veol-ltn-jdyozvi and prescription medicines only as told by [...] 12/13/2012 Document Revised: 12/06/2018 Document Reviewed: 11/14/2018 [employer] Patient Education 2020 [employer]. 05/22/2022 08:35:59 Gastritis, Adult Gastritis, Adult Gastritis [...] medicines. These include steroids, antibiotics, and some rztb-hst-cctpxnd medicines, such as aspirin or ibuprofen. Having [...] Follow these instructions at home: Medicines Take ahyo-bpq-suxfirq and prescription medicines only as told by [...] 06/08/2002 Document Revised: 11/01/2018 Document Reviewed: 11/01/2018 [employer] Patient Education 2020 [employer]. 05/22/2022 08:35:59 Gluten-Free Diet for Celiac Disease, [...] questions, talk with your diet and nutrition coordinator (registered dietitian) or your health care provider. [...] how a food is processed, ask the bus person dishwasher. What frazier words help to identify gluten? [...] popcorn, and hot cereals made from cornmeal. Lawrence, rice, wild rice. Some rice noodles or meneses noodles. Arrowroot starch, corn bran, corn flour, corn germ, cornmeal, corn starch, potato flour, potato starch flour, and rice bran. Plain, brown, and sweet rice flours. Rice macedonian, soy flour, and tapioca starch. Vegetables All [...] questions, talk with your diet and nutrition coordinator (registered dietitian) or your health care provider. [...] 06/14/2006 Document Revised: 05/27/2018 Document Reviewed: 03/29/2017 [employer] Patient Education 2020 [employer]. 05/22/2022 08:35:59 Celiac Disease Celiac Disease Celiac [...] 06/14/2006 Document Revised: 11/02/2018 Document Reviewed: 11/02/2018 [employer] Patient Education 2020 [employer]. Follow Up Care 04/14/2022 12:39:34 With:Dannie STARKS Address: [address] [place] [address]. [address] [place] [address] Business (1) When: Unknown [facility] 04-15-2022 Evaluation note Encounter Date Diagnosis Assessment Notes Mar, Type 2 diabetes mellitus with hyperglycemia , without long-term current use of insulin (ICD-10 - E11.65) [facility] Other 09-14-2022 Evaluation note* Encounter Date Diagnosis [...] last visit, continue with weight loss efforts [facility] Other 08-24-2022 Evaluation note* Encounter Date Diagnosis [...] or diabetes medication issues. 6. Prescriptions: Uses Walk-in Appointment Scheduler or [facility] Rubalc[facility]. Sample aline 2 cgm and ozempic 0.5mg pen given today. Sent rx for aline 2 to [facility]. Pt is to notify office if tolerating ozempic after week 5 so prescription may be sent to [facility]. Jan, Hyperlipidemia, unspecified hyperlipidemia type (ICD-10 - [...] was published Pt would greatly benefit from mcc personal use of CGM device such as a Set.fme 2 with ability for high/low alarm feature. A CGM would improve ease of access to glucose results and reduce risk of hypoglcyemia/hyper glycemia. [facility] Other chief complaint+Reason for visit Narrative* Chief Complaint no meter Reason for Visit Dietary counseling a nd surveillance Hyperlipidemia Type 2 diabetes mellitus [facility] Work Phone: chief complaint+Reason for visit Narrative* Chief Complaint no meter Reason for Visit BMI 30.0-30.9,adult Dietary counseling and surveillance Hyperlipidemia Type 2 diabetes mellitus Type 2 diabetes mellitus [facility] Work Phone: Evaluation + Plan note Future Appointments Appointment Date:04/24/2022 11:00:00 AM Scheduled Provider: Location:.[facility] Appointment Type:CT Sinus/Orbits/Maxillofacial (FT) Appointment Date:05/22/2022 08:15:00 AM Scheduled Provider: Location:[facility] Appointment Type:Surgery FT Future Scheduled Tests Radiology* CT Maxillofacial w/o Contrast 04/24/22 [facility] Evaluation + Plan note Future Appointments Appointment Date:05/22/2022 08:15:00 AM Scheduled Provider: Location:[facility] Tests Radiology* MRI Cholangiogram Pancreatography (mrcp) [facility] App[facility]ments Appointment Date:09/02/2022 09:00:00 AM Scheduled Provider:Dannie STARKS MD Location:[facility] Appointment Type:BAD Follow Up Future Scheduled Tests Radiology* MRI Cholangiogram Pancreatography (mrcp) 06/05/22 [facility] Evaluation + Plan note Future Appointments Appointment Date:09/02/2022 09:00:00 AM Scheduled Provider:Dannie STARKS MD Location:[facility] Appointment Type:BADH [facility] App[facility]ments Appointment Date:06/12/2024 08:00:00 AM Scheduled Provider: [facility] Type:NM Gastric Emptying Study () Appointment Date:07/28/2024 08:15:00 AM Scheduled Provider:Roseline Melendrez MD Location:[facility] Appointment Type:[facility] Follow Up Future Scheduled Tests Laboratory* Antimitochondrial Antibody, Quantitative 06/02/24 * Alkaline Phosphatase Isoenzymes 06/02/24 * CBC w/ Auto Diff 06/02/24 * Comprehensive Metabolic Panel 06/02/24 Radiology* NM Gastric Emptying Study 06/12/24 [facility] aluation + Plan note Future Appointments Appointment Date:07/28/2024 08:15:00 AM Scheduled Provider:Roseline Melendrez MD Location:[facility] Appointment Type:[facility] Follow Up Future Scheduled Tests Laboratory* Antimitochondrial Antibody, Quantitative 06/02/24 * Alkaline Phosphatase Isoenzymes 06/02/24 * CBC w/ Auto Diff 06/02/24 * Comprehensive Metabolic Panel 06/02/24 [facility] Evaluation + Plan note Future Appointments Appointment Date:10/27/2024 09:00:00 AM Scheduled Provider: [facility] App[facility] Type:US Abdominal/Pelvis () Appointment Date:10/31/2024 12:45:00 PM Scheduled Provider:Roseline Melendrez MD Location:[facility] Appointment Type:BAD Follow Up Future Scheduled Tests Laboratory* Okpra-0-Pstemcggqfd 10/10/24 * Ceruloplasmin 10/10/24 * Antimitochondrial Antibody, [...] PT 10/10/24 Radiology* US Abdomen Complete 10/27/24 [facility] Evaluation + Plan note Future Appointments Appointment Date:10/31/2024 12:45:00 PM Scheduled Provider:Roseline Melendrez MD Location:[facility] Appointment Type:[facility] Follow Up Diagnostic Tests Pending * Alkaline Phosphatase Isoenzymes 10/27/24 * Hepatitis A Virus (HAV) Antibody, Total 10/27/24 * Hepatitis B Surface Antibody 10/27/24 * Xctgk-6-Ietlsxjdksl 10/27/24 * CIPRIANO w/Reflex if POS 10/27/24 * Antimitochondrial Antibody, Quantitative 10/27/24 * Ceruloplasmin 10/27/24 * Acute Hepatitis A B C Panel 10/27/24 * IgA, Quant. 10/27/24 * IgG, Quant. 10/27/24 * Smooth Muscle Antibody Screen 10/27/24 * t-Transglutaminase IgA 10/27/24 * Alpha Fetoprotein Tumor Marker 10/27/24 Future Scheduled Tests Laboratory* Antimitochondrial Antibody, Quantitative 06/02/24 * Alpha Fetoprotein Tumor Marker 04/11/25 [facility] Evaluation noteNo InformationNortLif[facility] ([employer]) Other Evaluation noteNo assessment information available [facility] Work Phone: Evaluation note* Diagnosis OME (otitis media with effusion), left- Primary Conductive hearing loss of right ear with restricted hearing of left ear documented in this encounter [facility] HealthcareEvaluation note* Diagnosis Onset Date Resolution Status Dietary counseling and surveillance acute Hyperlipidemia acute Type 2 diabetes mellitus acu te [facility] Work Phone: Evaluation note* Diagnosis Onset Date Resolution Status BMI 30.0-30.9,adult acute Dietary counseling and surveillance acute Hyperlipidemia acute Type 2 diabetes mellitus acu te Type 2 diabetes mellitus acu te [facility] Work Phone: Evaluation note* Diagnosis Onset Date Resolution Status BMI 30.0-30.9,adult acute Dietary counseling and surveillance acute Hyperlipidemia acute Type 2 diabetes mellitus acu te Type 2 diabetes mellitus acu te BMI 30.0-30.9,adult acute Dietary counseling and surveillance acute Hyperlipidemia acute Type 2 diabetes mellitus acu te Hypoglycemia noneactive [facility] Work Phone: Evaluation note* Diagnosis Seborrheic keratosis- Primary Lentigines Epidermal inclusion cyst Sebaceous cyst Capillary angioma Nevus, non-neoplastic documented in this encounter [facility] HealthcareEvaluation note* Diagnosis Clonal hematopoiesis of indeterminate potential- Primary documented in this encounter 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, 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, 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 [employer]ur[employer] Other Summary Purpose Family History No Family [...] deficiency Bone marrow erythroid hyperplasia Procedures OFFICE/OUTPATIENT [facility] 60 MINUTES [id number] (SNOMED CT) - AMB REFERRAL TO HEMATOLOGY / ONCOLOGY Юлия Starks MD [address] [place] [address] Phone: tel: fax: [place] [address] [place] [address] Phone: tel: fax: Referral ID Status Reason Start Date Expiration Date V isits Requested Visits Authorized [id number] Pending Review 01/23/2025 01/23/2026 1 1 Reason Comments Patient Question Patient Care team informatio n (unrecognized section and content) Hook Loader Relationship Specialty Start Date End Date Kaitlyn Joy MD [address] [place] [address] PCP - General Family Medicine 05/03/23 Hook Loader Relationship Specialty Start Date End Date Kaitlyn Joy MD [address] [facility] [place] [address] PCP - General Family Medicine 05/03/23 Team Status: Active Member Role Status Dates Kaitlyn Joy MD Primary Care Provider Active Team [...] November 07, 2024 End: November 07, 2024 Hook Loader Relationship Specialty Start Date End Date Kaitlyn Joy MD [address] [facility] [place] [address] PCP - General Family Medicine 05/03/23 Hook Loader Relationship Specialty Start Date End Date Kaitlyn Joy MD [address] [place] [address] PCP - General Family Medicine 05/03/23 Hook Loader Relationship Specialty Start Date End Date Kaitlyn Joy MD [address] [place] [address] PCP - General Family Medicine 01/24/25 Юлия Starks MD [address] [place] [address] Referring Hematology/Oncology 01/24/25 Hook Loader Relationship Specialty Start Date End Date Kaitlyn Joy MD [address] [place] [address] PCP - General Family Medicine 01/24/25 Юлия Starks MD [address] [place] [address] Referring Hematology/Oncology 01/24/25 INFORMATION SOURCE (unrecogn ized section and content) DATE CREATED AUTHOR 09/20/2022 [facility] DATE CREATED AUTHOR AUTHOR'S ORGANIZ ATION 10/24/2024 [facility] DATE CREATED AUTHOR AUTHOR'S ORGANIZ ATION 11/01/2024 [facility] DATE CREATED AUTHOR AUTHOR'S ORGANIZ ATION 11/02/2024 [facility] DATE CREATED AUTHOR AUTHOR'S ORGANIZ ATION 11/10/2024 [facility] DATE CREATED AUTHOR AUTHOR'S ORGANIZ ATION 11/23/2024 [facility] DATE CREATED AUTHOR AUTHOR'S ORGANIZ ATION 12/25/2024 [facility] DATE CREATED AUTHOR AUTHOR'S ORGANIZ ATION 01/15/2025 [facility] DATE CREATED AUTHOR AUTHOR'S ORGANIZ ATION 02/28/2025 [facility] DATE CREATED AUTHOR AUTHOR'S ORGANIZ ATION 03/06/2025 [place] Goals (unrecognized section and content) Goals may be documented in a n alternate section Source Comments (unrecognize d section and content) In the event this informatio n is protected by the Federal Confidentiality of Alcohol and Drug Abuse Patient Records regulations: The Federal rules restrict any use of the information to criminally investigate or prosecute any alcohol or drug abuse patient.[facility] HospitalIn the event this information is protected by the Federal Confidentiality of Alcohol and Drug Abuse Patient Records regulations: The Federal rules restrict any use of the information to criminally investigate or prosecute any alcohol or drug abuse patient.[facility] FOR RECORDS PERTAINING TO PATIENTS WHO ARE [...] BE BASED ON THE PRIMARY CLINICAL RECORDS. [employer] [facility]. provides no warranty or guarantee of the accuracy or completeness of information in this document.
[2025-03-06 12:36] LABS: Hematocrit 45.0 % (36.0-48.0); Hemoglobin 15.1 g/dL (12.0-16.0); Immature Granulocytes Abs Auto 0.12 10^3/uL (0.00-0.03); Immature Granulocytes Pct Auto 1.7 % (0.0-0.5); Lymphocytes Absolute Auto 1.4 10^3/uL (1.2-3.8); Mean Corpuscular HGB Conc 33.6 g/dL (29.9-35.2); Mean Corpuscular Hemoglobin 27.5 pg (26.7-34.0); Mean Corpuscular Volume 82.0 fL (81.0-99.0); Platelet Count 212 10^3/uL (150-450); Red Blood Count 5.49 10^6/uL (4.20-5.40); White Blood Count 7.2 10^3/uL (4.0-11.0)
[2025-03-06 13:21] LABS: Alanine Aminotransferase 126 U/L (14-59); Albumin Globulin Ratio 0.9; Albumin Level 3.5 g/dL (3.4-5.0); Alkaline Phosphatase 228 U/L (46-116); Anion Gap 14.5; Aspartate Amino Transferase 43 U/L (15-37); Blood Urea Nitrogen 9.0 mg/dL (7.0-18.0); Calcium 8.8 mg/dL (8.5-10.1); Carbon Dioxide 25.8 mmol/L (21.0-32.0); Chloride 101 mmol/L (98-107); Estimated GFR (African America >60 (>=60 mL/min/1.73m^2); Estimated GFR (Non-African Ame >60 (>=60 mL/min/1.73m^2); Globulin 3.8 g/dL; Glucose 323 mg/dL (74-106); Potassium 4.3 mmol/L (3.5-5.1); Sodium 137 mmol/L (136-145); Total Protein 7.3 g/dL (6.4-8.2)
== END 2025-03-06 12:10 | disposition home or self-care (01) ==
LOC: LAB 12:13
PROVIDERS: PCP Family Medicine
DX: D75.89 Other specified diseases of blood and blood-forming organs (principal)
CPT/HCPCS: 36415; 80053; 83615; 85025

== ENCOUNTER 2025-04-24 08:53 | Emergency (ER) | payer OTHER, SELFPAY ==
--- OUTSIDE RECORDS SUMMARY | 2025-04-10 10:15 | XMS_ITS | Encounter Summary ---
Author Organization [facility] Address [address] [place] [address] Care Team Providers Care Ticket Collector Name Role Phone Henrik Joy MD Primary Care Provider [phone] Reason for Referral * Consultation (Routine) - AuthorizedSpecialtyDiagnoses / ProceduresReferred By ContactReferred To ContactPain Medicine Diagnoses Acute pain of right knee Arthritis of right knee Acute pain of left knee Procedures SD OFFICE/OUTPATIENT NEW HIGH MDM 60 MINUTES Yordy Bruce PA [address] [place] [address] Phone: tel: fax: Giulia Lee MD [address] [place] [address], [address], [address] [place] [address] Phone: tel: fax: Referral IDStatusReasonStart DateExpiration DateVisits RequestedVisits [id number] Specialty Services Required / * Consultation (Routine) - AuthorizedSpecialtyDiagnoses / ProceduresReferred By ContactReferred To ContactPhysical Therapy Diagnoses Arthritis of right knee Chondromalacia, patella, right Procedures SD OFFICE/OUTPATIENT NEW HIGH MDM 60 MINUTES Yordy Bruce PA [address] [address] Phone: tel: fax: [facility] [address] [place] [address] Referral IDStatusReasonStart DateExpiration DateVisits RequestedVisits [id number] Consult and Treat / Reason for Visit * ReasonCommentsFollow-upPain Encounter Details DateTypeDepartmentCare Team (Latest Contact Info)Eaufbqrgdcm36/14/2025 10:15 AM EDTOffice Visit [facility] [address] [place] [address] Yordy Bruce PA [address] [place] [address] Acute pain of right knee (Primary Dx); Arthritis of right knee; Chondromalacia, patella, right; Acute pain of left knee Social History Tobacco UseTypesPacks/DayYears UsedDateSmoking Tobacco: Every DayCigarettes Smokeless Tobacco: NeverAlcohol UseStandard Drinks/WeekCommentsNot Currently0 (1 standard drink = 0.6 oz pure alcohol)caffeine: yes, coffeeComments UnknownSex and Gender InformationValueDate RecordedSex Assigned at BirthNot on fileLegal SgmUhhsjv40/15/2023 6:59 PM EDTGender IdentityNot on fileSexual OrientationNot on filedocumented as of this encounter Progress Notes * SHUKRI Iraheta - 04/10/2025 10:15 AM EDT Images from the original note were not included. Orthopedic Office note: NAME: Andreia Cid : 1965 (EST PT) WITH B/L KNEE PAIN FOR A WHILE, CONTINUES TO GET WORSE. S/P RT KNEE INJECTION 03/21 - EVAL LT KNEE TODAY XRAY B/L KNEE EPIC 03/21/25 DEPO INJECTION RT KNEE 03/21/[address] INJECTION RT KNEE DR JOY 2023 HX RT KNEE SCOPE DR OLIVEIRA 2017 *RT KNEE WEARING HINGE KNEE BRACE WITH SOME RELIEF. 80% RELIEF FOR 1 WEEK FROM INJECTION. PAIN ANTERIOR-LATERAL KNEE. OCCAS RADIATES INTO RODNEY. NO PAIN MEDS. +POPPING, GRINDING. +GIVING OUT. HX NEUROPATHY. *LT KNEE PAIN ANTERIOR-LATERAL KNEE. OCCAS RADIATES INTO RODNEY. NO PAIN MEDS. +POPPING, GRINDING. +GIVING OUT. Knee Musculoskeletal Exam Gait Gait is normal. Inspection Leg length disparity: no discrepancy Right Erythema: none Effusion: mild Edema: none Ecchymosis: none Deformity: none Alignment: normal Palpation Right Right knee palpation is unremarkable. Increased warmth: none Masses: none Crepitus: patellofemoral Tenderness: present Lateral joint line: mild Medial joint line: mild Patella: moderate Range of Motion Right Right knee range of motion is normal and full. Active extension: 0 Passive extension: 0 Active flexion: 115 Passive flexion: 120 Strength Right Right knee strength is normal. Extension: 4/5. Extension is affected by pain. Flexion: 4/5. Flexion is affected by pain. Instability Right Instability signs: none - stable Varus stress grade: normal Valgus stress grade: normal Anterior drawer: normal Medial Mai test: negative Lateral Mai test: negative Neurovascular Right Right knee neurovascular exam is normal. Pulses - PT: normal Posterior tibial: 2+ Capillary refill: warm and well-perfused Special Signs Right Right knee special signs are normal. Straight leg raise: normal Patellar compression: mild Patellar apprehension: moderate Special signs additional comments: Right hip with painless rom. General Constitutional: appears stated age Labored breathing: no Psychiatric: normal mood and affect Neurological: alert Skin: intact Lymphadenopathy: none Orders Placed This Encounter Procedures Ambulatory referral to Physical Therapy Standing Status: Future Expected Date: 04/10/2025 Expiration Date: 10/09/2025 Referral Priority: Routine Referral Type: Consultation Referral Reason: Consult and Treat Referral Location: [facility] Requested Specialty: Physical Therapy Number of Visits Requested: 1 Ambulatory referral to Pain Medicine Eval and treat B/L knee pain - visco injections Standing Status: Future Expected Date: 04/10/2025 Expiration Date: 10/09/2025 Referral Priority: Routine Referral Type: Consultation Referral Reason: Specialty Services Required Referred to Provider: Giulia Lee MD Requested Specialty: Pain Medicine Number of Visits Requested: 1 Procedures Results ICD-10-CM 1. Acute pain of right knee M25.561 Ambulatory referral to Pain Medicine 2. Arthritis of right knee M17.11 Ambulatory referral to Physical Therapy Ambulatory referral to Pain Medicine 3. Chondromalacia, patella, right M22.41 Ambulatory referral to Physical Therapy 4. Acute pain of left knee M25.562 Ambulatory referral to Pain Medicine F/U Dr. Oliveira s/p aquatic therapy and referral to pain management for visco to discuss need for possible: (R) TKA- consider repeat xrays. Surgical and non surgical tx options discussed with conservative measures reviewed. Recommend ICE/ ELEVATION, continued activity modification in interim. Pt would consider surgical intervention to possibly improve symptoms. Assessment & Plan Right knee pain Symptoms are mostly in the lateral joint line and patellofemoral compartments. Good relief was noted with a cortisone injection, but it only lasted for 1 week. A hinged knee brace is being used. Symptoms are hard to quantify due to low activity levels, as her does most of the grocery shopping and activities. She has been helping carry objects for her to redo a deck. Patellofemoralarthritis and reproducible symptoms on exam were discussed. Diagnostic plan: Referral to pain management for possible viscosupplementation. Treatment plan: Aquatic therapy is recommended to help with quad and hamstring strength and stamina. Tylenol may be used as needed for pain but NSAID treatment is avoided given her history of epigastric discomfort, prior anemia, and respiratory issues. Clinical decision making: Given temporary relief with the cortisone injection, viscosupplementationis recommended. She is trying to hold off on the thought of knee replacement surgery. Anemia Experienced an unknown cause of anemia over the summer, which seems to have contributed to her symptoms. Episodic dizziness Still sometimes experiences episodic dizziness. This was discussed at length as she previously wentthrough therapy for balance and gait training. Follow-up: Follow up in 8 weeks to monitor her progress. Questions answered in laymen terms at the bedside. The diagnosis, home exercise plan and any ongoing restrictions/ recommendations reviewed. If unable to be reached in office, I recommend evaluation at nearest Emergency Room if any symptoms worsened or new symptoms develop for requiring urgent evaluation. Visit was preformed using [employer] appointment coordinator speech recognition. documented in this encounter Plan of Treatment DateTypeDepartmentCare Team (Latest Contact Info)Pvbziwwwumz02/16/2026 10:20 AM EDTOffice Visit [facility] [address] [place] [address] Misty Peng MD [address] [place] [address] NameTypePriorityAssociated DiagnosesOrder ScheduleAmbulatory referral to Physical TherapyOutpatient ReferralRoutine Arthritis of right knee Chondromalacia, patella, right Expected: 04/10/2025 (Approximate), Expires: 10/09/2025mbulatory referral to Pain MedicineOutpatient ReferralRoutine Acute pain of right knee Arthritis of right knee Acute pain of left knee Expected: 04/10/2025 (Approximate), Expires: 10/09/2025documented as of this encounter Visit Diagnoses Diagnosis Acute pain of right knee- Primary Arthritis of right knee Chondromalacia, patella, right Acute pain of left knee documented in this encounter Care Teams Team MemberRelationshipSpecialtyStart DateEnd Henrik Joy MD [address] [facility] [place] [address] PCP - GeneralFamily Knngqatg91/6/23documented as of this encounter
--- OUTSIDE RECORDS SUMMARY | 2025-04-16 11:15 | XMS_ITS | Encounter Summary ---
Author Organization [facility] Address [address] [place] [address] Care Team Providers Care National Accounts Recruiter Name Role Phone Henrik Downing MD Primary Care Provider [phone] Encounter Details DateTypeDepartmentCare Team (Latest Contact Info)Txtdefdumqh56/20/2025 11:15 AM EDTOffice Visit [facility] [address] [facility] [address] [place] [address] Misty Peng MD [address] [facility] [address] [place] [address] Epidermal inclusion cyst (Primary Dx); Other specified erythematous conditions Social History Tobacco UseTypesPacks/DayYears UsedDateSmoking Tobacco: Every DayCigarettes Smokeless Tobacco: NeverAlcohol UseStandard Drinks/WeekCommentsNot Currently0 (1 standard drink = 0.6 oz pure alcohol)caffeine: yes, coffeeComments UnknownSex and Gender InformationValueDate RecordedSex Assigned at BirthNot on fileLegal XxkCeqgdv00/15/2023 6:59 PM EDTGender IdentityNot on fileSexual OrientationNot on filedocumented as of this encounter Progress Notes * Misty Peng MD - 04/16/2025 11:15 AM EDT Images from the original note were not included. Nurse visit Diagnosis: EIC Location: chest Duration: years Size and picture needed for excision benefit investigation. Established patient All pertinent medical history, medications, and allergies were reviewed. General Exam: alert, oriented to person, place, and time, normal affect, well appearing A focused exam completed based on patient reported problems, see below: Skin Exam 1. EPIDERMAL INCLUSION CYST Chest - Medial (Center) subcutaneous, mobile nodule 0.7 x 0.5 cm Patient informed that the office will contact them to schedule a 30 minute excision once an estimate of their co-pay is determined, no charge for today's visit 2. OTHER SPECIFIED ERYTHEMATOUS CONDITIONS Next Visit: We will contact patient to schedule excision. documented in this encounter Plan of Treatment DateTypeDepartmentCare Team (Latest Contact Info)Sflntkyqaef14/16/2026 10:20 AM EDTOffice Visit [facility] [address] [place] [address] Misty Peng MD [address] [facility] [address] [place] [address] documented as of this encounter Visit Diagnoses Diagnosis Epidermal inclusion cyst- Primary Sebaceous cyst Other specified erythematous conditions documented in this encounter Care Teams Team MemberRelationshipSpecialtyStart DateEnd Henrik Downing MD [address] [place] [address] PCP - GeneralFamily Vwjhrpqk61/6/23documented as of this encounter
--- OUTSIDE RECORDS SUMMARY | 2025-04-23 05:24 | XMS_ITS | Continuity of Care Document ---
Author Organization [facility] Address [address] [place] [address] Phone Care Team Providers Care Debt Management Counselor Name Role Phone Kady Preston APRN Attending Provider [phone] Henrik Downing MD Primary Care Provider [phone] Care Teams Patient Care Team Team Status: Active Member Role/Relationship Status Dates Henrik Downing MD Primary Care Provider Active Patient Care Team Team Status: Inactive Member Role/Relationship Status Dates Kady Preston APRN Attending Provider Active S tart: April 23, 2025 End: April 23, 2025DoSusie Leos Care ProviderActiveStart: April 23, 2025 End: April 23, 2025 Chief Complaint and Reason for Visit Chief Complaint Admit Date Right index finger possible paronychia O ctober 2024 9:03am Reason for Visit Admit Date Paronychia April 23, 2025 9 :03am Allergies, Adverse Reactions, Alerts Allergen Type Severity Reaction Last Updated Verified Status Comments Sulfa (Sulfonamide Antibiotics) Allergy Unknown (John) 07/08/2011 Nausea/Vomiting/Indira rrhea Nausea/Vomiting... April 10, 2024 10:40am Yes Active Reaction: (John) 07/08/2011 Nausea/Vomi ting/Diarrh ea Nausea/Vomi ting/Diarrh ea metformin Allergy Unknown Gastrointestina l Upset April 23, 2025 9:05am Yes Active Social History Smoking Status Status Start Date End Date Date of Observa tion Ex-smoker (finding) April 23, 2025 9:18am Observation Status Observation Response Date of Response Legal Sex Female (finding) Sex Assigned At BirthFemaleJanuary 1965 Family History Relationship Condition Age at Onset Recorded Date/T christian brother Diabetes mellitus Unknown fatherChronic obstructive pulmonary diseaseUnknownfamily memberDeceasedUnknown grandparentDiabetes mellitusUnknownDeceasedUnknowngrandparentDiabetes mellitus UnknownDeceasedUnknowngrandparentDeceasedUnknowngrandparentDeceasedUnknownmother Heart diseaseUnknownDiabetes mellitusUnknownHypertensionUnknown Problems Active Problems Problem Diagnosis/Recorded Date Onset Date Stat Paronychia April 23, 2025 9:21am Unknown Ac tive Pelvic congestion syndrome April 23, 2025 9:08am U nknown Active Dietary counseling and surveillance March 08 7:23am Unknown Active Type 2 diabetes mellitus March 08, 2024 7:22am U nknown Active Hyperlipidemia March 08, 2024 7:22am Unknown Active Hypothyroidism April 23, 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 Active Autoimmune thyroiditis April 23, 2025 9:08am Unkno wn Active 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, 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 Active BMI 30.0-30.9,adult March 08, 2024 12:58pm Unkno wn Active GERD (gastroesophageal reflux disease) April 23 9:08am Unknown Active Abdominal pain August 31, 2024 12:50pm Unknown Ac tive Hypertension April 23, 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 Ac tive Nausea August 31, 2024 12:51pm Unknown Acti ve Vitamin D deficiency April 23, 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 Active Medications Medication Status Dose Units Route Directions Qty Days Refills S tart Date Stop Date End Date Reason(s) Instructions Adherence Insulin Glargine-Yfgn (Semgl ee(Insulin Glarg-Yfgn)Pen) 100 unit/mL (3 mL) insulin pen Discontinued 36 UNIT SUBCUT Every evening 45 3January 2024 1:50pmOctober 2024 9:16amType 2 diabetes mellitus Type 2 diabetes mellitus without complicationsPantoprazole 40 mg tablet,delayed release (DR/EC)ActiveMGPOOctuofl health - [facility] 2023 12:00amComplies with drug therapy Meclizine 25 mg mbnpkiRdyesn78YOFLPcmi times daily as neededOct2023 12:00amComplies with drug therapyBlood-Glucose Sensor (Freestyle Ravin 3 Sensor) deviceActive0.ROUTE.PFYAQKUNI81Bjmfxob 2023 11:09amType 2 diabetes mellitus Hypoglycemia Type 2 diabetes mellitus without complications Hypoglycemia, unspecifiedchange every 14 daysTirzepatide (Mounjaro) 5 mg/0.5 mL pen wkgufnraZqvlgfpboikw6QQTRVDSRgiwlf nbzg90Toypcun 2023 12:00amDecember 2023 5:25pmCyanocobalamin (Vitamin B-12) 1,000 mcg tabletActiveMCGPO April 23, 2025 12:00amComplies with drug therapyGlimepiride 2 mg tablet Pobnyg5DQSVGlgcwva 27th, 2025 12:00amComplies with drug therapyFerrous Sulfate (Ferosul) 325 mg (65 mg iron) tabletActiveMGPOOctuofl health [facility] 2024 12:00amComplies with drug therapyFolic Acid 1 mg tabletActivePOFormerly [facility] 2024 12:00am Complies with drug therapyDuloxetine 30 mg capsule,delayed release(DR/EC)Active MGPOMaruofl health [facility] 2024 12:00amComplies with drug therapyCholecalciferol (Vitamin D3) 1,250 mcg (50,000 unit) pjsnblxVziais4308RURZBLdromfg 27th, 2025 12:00am Complies with drug therapyInsulin Glargine (Lantus U-100 Insulin) 100 unit/mL eujujaexVtkple27TKPJZEIKRODlswb dailyOct2024 12:00amComplies with drug therapyDoxycycline Hyclate 100 mg zoefbknHadnyb207XHBGDbwwa nvvht42429 April 23, 2025 12:00amComplies with drug therapyCephalexin 500 mg capsule Lcetkd034DNVVNpod times biuyh77753Gpbuefv 2024 12:00amComplies with drug therapyInsulin Glargine-Yfgn (Semglee(Insulin Glarg-Yfgn)Pen) 100 unit/mL (3 mL) insulin sydTqgkdbfclghy28MQQTQBYEHQVpngp eveningSept2023 12:00am March 08, 2024 1:01pmLevothyroxine (Synthroid) 125 mcg vbvxakMvzimk802JJY POEvery morningpt2023 12:00amComplies with drug therapy Liothyronine 5 mcg fpjceyAshrky44EWTFQXtwuq morningpt2023 12:00am Complies with drug therapyClonazepam 2 mg cfignaZeveup2WBRPXykhh dailySept2023 12:00amComplies with drug therapyCitalopram 20 mg apuxaqRnahou09ZXLR DailySept2023 12:00amComplies with drug therapyRosuvastatin 5 mg kveiyvNiakuk8JGGQIpbpp at bedtimeSept2023 12:00amComplies with drug therapyTirzepatide (Mounjaro) 2.5 mg/0.5 mL pen injectorDiscontinued2.5MGSUBCUT every lmcv98Kpbylleps2023 12:00amOct2023 11:10amType 2 diabetes mellitus Type 2 diabetes mellitus without complicationspt has free 1 month trial offer voucherBlood-Glucose Sensor (Freestyle Ravin 3 Sensor) deviceDiscontinued0.ROUTE .MZQVXHACP472Yhctncmpq 11th, 2024 12:00amApril 10, 2024 11:11amType 2 diabetes mellitus Type 2 diabetes mellitus without complicationschange every 14 daysInsulin Glargine-Yfgn (Semglee(Insulin Glarg-Yfgn)Pen) 100 unit/mL (3 mL) insulin pen Bcvpbztjubos23FDRVJTPCVCApsvl jqbqzgy846RsqenrmudMarch 08, 2024 1:00pmJanuary 2024 1:50pmType 2 diabetes mellitus Type 2 diabetes mellitus without complicationsPen Needle, Diabetic (Bd Ultra- Fine Susan Pen Needle) 32 gauge x 5/32 needleActive0.Xiyen3061Ymhnpbwjq 12th, 2024 12:00amType 2 diabetes mellitus Type 2 diabetes mellitus without complicationsAs directed Use with insulin pen in vitro once daily Vital Signs Vital Reading Result Reference Range Collection Date/Time Height 62 [in_i] April 23, 2025 9:53eaJzqspa83.66 kgFormerly [facility] 2024 9:09amBody Temperature 98.0 [degF]97.6-99.0Formerly [facility] 2024 9:09amHeart Rate84 /yfv62-693Njiavlp 2024 9:09amRespiratory rate16 /jfq14-67Whtexaf 2024 9:09amOxygen saturation by Pulse %95-100Formerly [facility] 2024 9:09amBP Seqnfupd641 mm[Hg]100-140Formerly [facility] 2024 9:09amBP Aifunxjqq97 mm[Hg]60-100Formerly [facility] 2024 9:09amBMI (Body Mass Index)28.9 kg/m9Dccbglp 2024 9:09am Advance Directives Advance Directive Response Recorded Date/ Time Advance Directives No February 14, 2019 2:17pm Insurance Providers Guarantor Andreia Cid Address [address] [address]Zbpcbmm Info.Home Phone: Payer Group Member ID Coverage Type Subscriber Relationship to Subscriber Effective Date Expiration Date [facility] Id: [id number] S Zilles Id: [id number] [address] [address] Home Phone: Email: declined Encounters Encounter Location(s) Arrival/Admit Date Discharge/Departure Date Discharge/Departure Disposition Provider(s) Departed Physician/ Provider Office [facility] April 23, 2025 9:03am April 23, 2025 9:23am Discharged to home care or self care (routine discharge) Gerson Schumacher APRN Recent Diagnosis Onset Date Admit Date Paronychia Unknown April 23 9:03am Assessments Diagnosis Onset Date Resolution Status Admit Date Paronychia acuteFormerly [facility] 2024 9:03am Plan of Treatment Future Tests Future scheduled test information is unavailable Pending Tests Test Name Ordered Date Scheduled Date Superficial Wound Culture April 23, 2025 9:2 2am Future Visits Future appointment information is unavailable Future Procedures Future procedure information is unavailable Future Medications Future medication information is unavailable Patient Instructions Patient instructions are unavailable
--- OUTSIDE RECORDS SUMMARY | 2025-04-24 09:00 | XMS_ITS | Clinical Summary ---
Author Organization [employer] [facility] tem Address [id number] [address] [place] [address] Care Team Providers Care Dramatic Coach Name Role Phone Henrik Downing MD Primary Care Provider [phone] Allergies Active AllergyReactionsCriticalityNoted DateCommentsSulfa (Sulfonamide Antibiotics)Nfjbijxg37/20/2018 Medications MedicationSigDispense QuantityRefillsLast FilledStart DateEnd DateStatus rosuvastatin (CRESTOR) 10 mg tablet Take 10 mg by mouth daily.Active levothyroxine (SYNTHROID, LEVOTHROID) 100 MCG tablet Take 125 mcg by mouth daily. Active citalopram (CeleXA) 20 mg tablet 12/07/2018Active glimepiride (AMARYL) 4 mg tablet 01/24/2019Active clonazePAM (KlonoPIN) 2 mg tablet 11/23/2018Active oxyCODONE-acetaminophen (PERCOCET) 5-325 mg per tablet Indications:Hemorrhoids, unspecified hemorrhoid typeTake 1 tablet by mouth every 6 (six) hours as needed for pain for up to 20 doses. Max Daily Amount:4 tablets 20 tablet 02/28/2019Active Additional Information Patient not taking.Reported on 04/24/2019 erythromycin (ILOTYCIN) ophthalmic ointment apply to BILATERAL UPPER EYELIDS (INCISIONS) three times a mfk569Active SYNTHROID 125 mcg tablet 03/06/2019Active rosuvastatin (CRESTOR) 5 mg tablet 03/29/2019Active Active Problems No known active problems Family History Medical HistoryRelationNameCommentsBrain cancerBrother 1Prostate cancerBrother 2 Prostate cancerFatherRelationNameStatusCommentsBrother 1DeceasedBrother 2Alive FatherAliveMotherAlive Social History Tobacco UseTypesPacks/DayYears UsedDateSmoking Tobacco: Every DayCigarettes Smokeless Tobacco: Never Tobacco Cessation:Ready to Q uit: No; Counseling Given: Yes Alcohol UseStandard Drinks/WeekCommentsNo0 (1 standard drink = 0.6 oz pure alcohol)ChildcareAnswerDate LxdqjreoTocjminhiIckwomj74/12/2019EmploymentAnswer Date MlnxvpceDcpmrvvvbhHefegfw50/12/2019Purpose - LifeAnswerDate RecordedPurpose and direction in wfmrNyivnpr76/11/2021CommentsNoSex and Gender InformationValueDate RecordedSex Assigned at BirthNot on fileLegal SexFemale 01/31/2015 11:21 AM EDTGender IdentityNot on fileSexual OrientationNot on file Last Filed Vital Signs Vital SignReadingTime TakenCommentsBlood Pandpkur361/801 2:24 PM EDT Rbdek8304/03/2019 9:40 AM OCZIxbkkktxbov84.4 ??C (97.5 ??F)02/28/2019 8:30 AM EDTRespiratory Zwmq793802/28/2019 8:50 AM EDTOxygen Oqgnxqvnyn69%02/28/2019 9:40 AM EDTInhaled Oxygen Concentration--Tqfevt82.6 kg (149 lb)04/24/2019 2:24 PM EDT Stilli603.5 cm (5' 2 )04/24/2019 2:24 PM EDTBody Mass Index27.251 2:24 PM EDT Plan of Treatment Health MaintenanceDue DateLast DoneCommentsDepression Lhckgdakm31/02/1976Tobacco Dttekmgzn38/02/1976Adult BMI Yuetfddiq84/02/1982DTaP,Tdap and Td Vaccines (1 - Tdap)1982Zoster (Shingles) Vaccine (1 of 2)06/29/20136270Txhiibgzrsf25/03/2022 02/28/2019, 02/28/2019Influenza Cghlvuq8502/26/2025 Medical Devices Not on file Procedures Procedure NamePriorityDate/TimeAssociated NcvedivosJvlhxazzFMEWQNEMIUU49/03/2019 7:14 AM EDT from Last 3 Months or Most Recently Relevant to Health Maintenance Results * Colonoscopy (02/28/2019 7:14 AM EDT)Specimen (Source)Anatomical Location / LateralityCollection Method / VolumeCollection TimeReceived Time02/28/2019 7:14 AM EDT Narrative PM CARDIOVASCULAR - 02/28/2019 8:13 AM EDT [facility] Patient Name: Andreia Thomas ?? Procedure Date No Time: 02/28/2019 ?? CSN : [id number] Date of : 1965 Admit Type: Outpatient Age: 53 Room: [facility] OR Gender: Female Note Status: Finalized Attending MD: Kenan Johnson DO Procedure: ?Colonoscopy Indications: ?Rectal bleeding Providers: ?Kenan Johnson DO Referring MD: ? Kenan Johnson DO Medicines: ?General Anesthesia Complications: ?No immediate complications. Procedure: ?After I obtained informed consent, the scope was passed ?under direct vision. Throughout the procedure, the ?patient's blood pressure, pulse, and oxygen saturations ?were monitored continuously. The OLYMPUS CF-190L # ?[id number] ADULT COLONOSCOPE was introduced through the ?anus and advanced to the cecum, identified by ?appendiceal orifice and ileocecal valve. The ?colonoscopy was performed without difficulty. The ?patient tolerated the procedure well. The quality of ?the bowel preparation was adequate to identify polyps. Findings: ? Hemorrhoids were found on perianal exam. ? Five sessile polyps were found in the rectum and splenic flexure. The ? polyps were 4 to 7 mm in size. These polyps were removed with a hot ? snare. Resection and retrieval were complete. ? A localized area of mildly ulcerated mucosa was found at the splenic ? flexure. Biopsies were taken with a cold forceps for histology. ? A 4 mm polyp was found in the recto-sigmoid colon. The polyp was ? sessile. Fulguration to ablate the lesion by monopolar probe was ? successful. Estimated Blood Loss: Estimated blood loss was minimal. Impression: ? - Hemorrhoids found on perianal exam. ?- Five 4 to 7 mm polyps in the rectum and at the ?splenic flexure, removed with a hot snare. Resected and ?retrieved. ?- Ulcerated mucosa at the splenic flexure. Biopsied. ?- One 4 mm polyp at the recto-sigmoid colon. Treated ?with a monopolar probe. Recommendation: ? - Repeat colonoscopy in 3 years for surveillance based ?on pathology results. ?- Return to my office in 1 week. Procedure Code(s): ?--- Professional --- ?89560, Colonoscopy, flexible; with ablation of ?tumor(s), polyp(s), or other lesion(s) (includes pre- ?and post-dilation and guide wire passage, when ?performed) ?31019, 59, Colonoscopy, flexible; with removal of ?tumor(s), polyp(s), or other lesion(s) by snare ?technique ?27260, 59, Colonoscopy, flexible; with biopsy, single ?or multiple Diagnosis Code(s): ? --- Professional --- ? K64.9, Unspecified hemorrhoids ? K62.1, Rectal polyp ? D12.3, Benign neoplasm of transverse colon (hepatic flexure or splenic ? flexure) ? K63.3, Ulcer of intestine ? D12.7, Benign neoplasm of rectosigmoid junction CPT copyright 2017 [employer]. All rights reserved. The codes documented in this report are preliminary and upon cellular equipment installer review may be revised to meet current compliance requirements. DO Kenan Wang DO 02/28/2019 8:10:51 AM Number of Addenda: 0 Note Initiated On: 02/28/2019 7:14 AM Procedure Note Kenan Johnson DO - 02/28/2019 [facility] Patient Name: Andreia Thomas Procedure Date No Time: 02/28/2019 CSN : [id number] Date of : 1965 Admit Type: Outpatient Age: 53 Room: [place] [address] Gender: Female Note Status: Finalized Attending MD: Kenan Johnson DO Procedure: Colonoscopy Indications: Rectal bleeding Providers: Kenan Johnson DO Referring MD: Kenan Johnson DO Medicines: General Anesthesia Complications: No immediate complications. Procedure: After I obtained informed consent, the scope waspassed under direct vision. Throughout the procedure, the patient's blood pressure, pulse, and oxygensaturations were monitored continuously. The OLYMPUS CF-190L # [id number] ADULT COLONOSCOPE was introduced through the anus [...] 1 week. Procedure Code(s): --- Professional --- 94807, Colonoscopy, flexible; with ablation of tumor(s), polyp(s), or other lesion(s) (includespre- and post-dilation and guide wire passage, when performed) 71421, 59, Colonoscopy, flexible; with removal of tumor(s), polyp(s), or other lesion(s) by snare technique 86008, 59, Colonoscopy, flexible; with biopsy,single or multiple Diagnosis Code(s): --- Professional --- K64.9, Unspecified hemorrhoids K62.1, Rectal polyp D12.3, Benign neoplasm of transverse colon (hepatic flexure orsplenic flexure) K63.3, Ulcer of intestine D12.7, Benign neoplasm of rectosigmoid junction CPT copyright 2017 [employer]. All rights reserved. The codes documented in this report are preliminary and upon cellular equipment installer reviewmay be revised to meet current compliance requirements. DO Kenan Wang DO 02/28/2019 8:10:51 AM Number of Addenda: 0 Note Initiated On: 02/28/2019 7:14 AM Authorizing ProviderResult TypeResult StatusMicasya Johnson DOGI PROCEDURE ORDERABLESFinal ResultPerforming OrganizationAddressCity/State/ZIP CodePhone Number PM CARDIOVASCULAR from Last 3 Months or Most Recently Relevant to Health Maintenance Insurance Care Teams Team MemberRelationshipSpecialtyStart DateEnd Date Henrik Downing MD [facility]11/14/17
--- OUTSIDE RECORDS SUMMARY | 2025-04-24 09:00 | XMS_ITS | Clinical Summary ---
Author Organization [facility] Address [address] [place] [address] Care Team Providers Care Search Planner Name Role Phone Henrik Downing MD Primary Care Provider [phone] Юлия Guerra MD Unavailable [phone] Allergies No known active allergies Medications MedicationSigDispense QuantityRefillsLast FilledStart DateEnd DateStatus levothyroxine (Synthroid, Levoxyl) 125 mcg tablet Take 125 mcg by mouth before breakfast.Active liothyronine (Cytomel) 5 mcg tablet Take 2 tablets by mouth in the morning.Active citalopram (CeleXA) 20 mg tablet Take 20 mg by mouth in the morning.Active rosuvastatin (Crestor) 5 mg tablet Take 5 mg by mouth in the morning.Active clonazePAM (KlonoPIN) 2 mg tablet Take 2 mg by mouth if needed in the morning, at noon, and at bedtime for anxiety. May take 2-3 tablets dailyActive esomeprazole (NexIUM) [address] capsule Take 40 mg by mouth before breakfast. Do not open capsule.Active ferrous sulfate 325 (65 Fe) MG EC tablet Take 65 mg of iron by mouth in the morning. Do not crush, chew, or split.Active Active Problems ProblemNoted DateDiagnosed DateRecurrent cold sores01/01/2025Vitamin B12 vkdhlvdoer16/18/2025 Assessment & Plan (11/13/2024 6:50 AM EDT): -Low at OSH and received multiple doses IM replacement -Appropriate levels on recheck here Assessment & Plan (11/12/2024 10:40 AM EDT): -Low at OSH and received multiple doses IM replacement -Appropriate levels on recheck here Yihvoqnbjxpyz20/18/2025 Assessment & Plan (11/13/2024 6:50 AM EDT): -Elevated at OSH but were unremarkable here -Hyperbilirubinemia, AST>ALT Assessment & Plan (11/12/2024 10:40 AM EDT): -Elevated at OSH but were unremarkable here -Hyperbilirubinemia, AST>ALT Heart jjojmp6011/11/2024 Assessment & Plan (11/13/2024 6:50 AM EDT): [...] obtain TTE at this point Moderate protein-calorie hucczxfvmhie74/16/2025 Assessment & Plan (11/13/2024 6:50 AM EDT): -RD following, see below Assessment & Plan (11/12/2024 10:40 AM EDT): -RD following, see below Assessment & Plan (11/11/2024 6:52 AM EDT): -RD following, see below Assessment & Plan (11/10/2024 3:28 PM EDT): -RD following, see below Sscdmhpxsvqm63/15/2025 Assessment & Plan (11/13/2024 7:00 AM EDT): -Concerning for B12 deficiency vs iatrogenic vs MDS vs MPN vs malignancy, less likely MAHA process -OSH smear showing rare schistocytes, repeat smear here negative for schistocytes -JUGQNL66 activity mildly low which is nonspecific, however [...] repeat smear here negative for schistocytes -f/u JMJWLT69 activity, [facility] flow, BMBx results -CT imaging [...] repeat smear here negative for schistocytes -f/u UXXAON85 activity, [facility] flow, BMBx results -CT imaging [...] schistocytes, repeat smear here -Check hemolysis labs, OOKGVF57 -HemOnc on board, grateful for their input -Will be undergoing BMBx today -Daily CBC however minimize phlebotomy as much as possible Assessment & Plan (11/09/2024 11:41 PM EDT): - Initial labs at [facility] found to be WBC 2.2, hemoglobin 5.3, platelet count 31 Repeat labs at [facility] show WBC 3.49, hemoglobin 8.4, platelet count 26 -Concern for TTP -Type and screen is been completed -Transfuse for hemoglobin less than 7 and a platelet count less than 10 unless actively bleeding -Hematology/oncology consult -N.p.o. at midnight for bone marrow biopsy Acute qfpgndpnztqcdi68/15/2025 Assessment & Plan (11/13/2024 6:50 AM EDT): [...] secondary to low hemoglobin Acute cystitis without /15/2025 Assessment & Plan (11/13/2024 6:50 AM EDT): -Treated with 3 days CTX and levofloxacin /-15 at outside hospital -UA negative -Currently asymptomatic [...] at this time DM2 (diabetes mellitus, type 2)11/09/2024 Assessment & Plan (11/13/2024 6:50 AM EDT): -ISS, ACHS Assessment & Plan (11/12/2024 10:40 AM EDT): -ISS, ACHS Assessment & Plan (11/11/2024 6:52 AM EDT): -ISS, ACHS Assessment & Plan (11/10/2024 3:28 PM EDT): -ISS, ACHS Assessment & Plan (11/09/2024 11:34 PM EDT): - ISS, ACHS Acquired axpuozcanvyxie23/15/2025 Assessment & Plan (11/13/2024 6:50 AM EDT): [...] EDT): - Continue levothyroxine GERD (gastroesophageal reflux disease)11/09/2024 Assessment & Plan (11/13/2024 6:50 AM EDT): -Continue Protonix Assessment & Plan (11/12/2024 10:40 AM EDT): -Continue Protonix Assessment & Plan (11/11/2024 6:52 AM EDT): -Continue Protonix Assessment & Plan (11/10/2024 3:28 PM EDT): -Continue Protonix Assessment & Plan (11/09/2024 11:34 PM EDT): - Continue Protonix HLD (hyperlipidemia)11/09/2024 Assessment & Plan (11/13/2024 6:50 AM EDT): -Continue rosuvastatin Assessment & Plan (11/12/2024 10:40 AM EDT): -Continue rosuvastatin Assessment & Plan (11/11/2024 6:52 AM EDT): -Continue rosuvastatin Assessment & Plan (11/10/2024 3:28 PM EDT): -Continue rosuvastatin Assessment & Plan (11/09/2024 11:34 PM EDT): - Continue rosuvastatin Zxzpcfm5211/09/2024 Assessment & Plan (11/13/2024 6:50 AM EDT): -Continue Celexa Assessment & Plan (11/12/2024 10:40 AM EDT): -Continue Celexa Assessment & Plan (11/11/2024 6:52 AM EDT): -Continue Celexa Assessment & Plan (11/10/2024 3:28 PM EDT): -Continue Celexa Assessment & Plan (11/09/2024 11:34 PM EDT): - Continue Celexa Encounters DateTypeDepartmentCare BzaiHppbsainhvl91/29/2025Results Follow-Up [facility] [address] [place] [address] Юлия Guerra MD Comprehensive metabolic panel, Vitamin B12, CBC auto hvuyyblgfsqq59/29/2025 3:50 PM EDTLab [facility] [address] [place] [address] Vitamin B12 /29/2025 3:00 PM EDTOffice Visit [facility] [address] [place] [address] Юлия Guerra MD Vitamin B12 deficiency (Primary Dx); Bone marrow erythroid hyperplasiafrom Last 3 Months Family History Medical HistoryRelationNameCommentsBrain cancerBrotherCOPDFatherProstate cancer FatherThyroid diseaseFatherCOPDMotherHeart failureMotherThyroid diseaseMotherckd MotherhtnMotherRelationNameStatusCommentsBrotherFatherMother Social History Tobacco UseTypesPacks/DayYears UsedDateSmoking Tobacco: ThutmoIukhwdlygj266.3 Started: 06/28/1976Smokeless Tobacco: Never Tobacco Cessation:Counseling Given: Not Answered Alcohol UseStandard Drinks/WeekCommentsNever0 (1 standard drink = 0.6 oz pure alcohol)[facility] UtilitiesAnswerDate RecordedIn the past 12 months has the [employer], gas, oil, or water [employer] threatened to shut off services in your home?No 11/09/2024Humiliation, Afraid, Rape, and Kick questionnaireAnswerDate Recorded Within the last year, have you been afraid of your partner or ex-partner?No 01/23/2025Emotionally AbusedNot on file01/23/2025Physically AbusedNot on file 01/23/2025Sexually AbusedNot on file01/23/2025Overall Financial Resource Strain (CARDIA)AnswerDate RecordedHow hard is it for you to pay for the very basics like food, housing, medical care, and heating?Not hard at all11/09/2024PHQ-2 AnswerDate RecordedPatient Health Questionnaire-2 Tthqn272Transportation AnswerDate RecordedIn the past 12 months, has lack of transportation kept you from medical appointments or from getting medications?No11/09/2024Lack of Transportation (Non-Medical)Not on file11/09/2024Housing Stability Vital Sign AnswerDate RecordedUnable to Pay for Housing in the Last YearNot on file 11/09/2024Number of Times Moved in the Last YearNot on file11/09/2024t any time in the past 12 months, were you homeless or living in a penitentiary (including now)? No11/09/2024Hunger Vital SignAnswerDate RecordedWithin the past 12 months, you worried that your food would run out before you got the money to buymore.Never true11/09/2024Ran Out of Food in the Last YearNot on file11/09/2024 CommentsUnknownSex and Gender InformationValueDate RecordedSex Assigned at Ashhqy7411/10/2024 8:57 AM EDTLegal OquWiifxe29/29/2022 10:47 PM EDTGender EwhrnspeRajikf55/16/2025 8:57 AM EDTSexual OrientationHeterosexual or Straight 11/10/2024 8:57 AM EDT Last Filed Vital Signs Vital SignReadingTime TakenCommentsBlood Bkwqvctr857/8301/23/2025 3:19 PM EDT Zpygs223101/23/2025 3:19 PM WTWPdrlmzdhvxz59.8 ??C (98.3 ??F)01/23/2025 3:19 PM EDTRespiratory Lzdc567111/23/2024 10:03 AM EDTOxygen Zvsjkfkwio49%01/23/2025 3:19 PM EDTInhaled Oxygen Concentration--Puvxce42.6 kg (149 lb)01/23/2025 3:19 PM EDT Qsdrbh887.5 cm (5' 2 )12/27/2024 10:13 AM EDTBody Mass Index27.2507 10:13 AM EDT Plan of Treatment DateTypeDepartmentCare Team (Latest Contact Info)Gcrnlgyglvo08/27/2026 11:00 AM ESTOffice Visit [facility] [address] [place] [address] Юлия Guerra MD [address] [place] [address] Health MaintenanceDue DateLast DoneCommentsCT Ioqhysizcvoy07/02/1964Diabetes: Hemoglobin A1C1963FOBT1963 3933Qvehavtupxeye10/02/1964Diabetes: Retinopathy Bzfmgipds61/02/1974Diabetes: Urine Protein Zefpopipp83/02/1983 Pneumococcal Vaccine: Pediatrics (0 to 5 Years) and At-Risk Patients (6 to 64 Years) (1 of 2 - PCV)1982Pap Smear1984Cervical Cancer Screening 1993HPV/Khrlik1306/29/19935358Iuxhzqpyu48/02/2004Zoster Vaccines (1 of 2) 2013dult Bhqvgbv44/11/2009COVID-19 Vaccine (2024- season) , 09/28/2020, 09/07/2020Influenza Vaccine (#1)2025 05/29/2021, 05/16/2018, 05/04/2018, Additional history oahverHTL10/24/2026 10/19/2024Depression Wkvjhhejo63FIT-DNA10/19/ Cpoiwlfrtzw41Colorectal Cancer Xagcvtihz05/03/2029HIB Vaccines Aged OutNo longer eligible based on patient's age to complete this topicHPV VaccinesAged OutNo longer eligible based on patient's age to complete this topic IPV VaccinesAged OutNo longer eligible based on patient's age to complete this topicMeningococcal B VaccineAged OutNo longer eligible based on patient's age to complete this topicMeningococcal VaccineAged OutNo longer eligible based on patient's age to complete this topicRotavirus VaccinesAged OutNo longer eligible based on patient's age to complete this topic Procedures Procedure NamePriorityDate/TimeAssociated DiagnosisCommentsCBC WITH AUTO LOGPCIUYMXCDHtxgcmk85/29/2025 3:49 PM EDT Vitamin B12 deficiency VITAMIN P15Yscilnj37/29/2025 3:49 PM EDT Vitamin B12 deficiency COMPREHENSIVE METABOLIC OZPRTXigkmov94/29/2025 3:49 PM EDT Vitamin B12 deficiency CBC AND WQUSKRYRZVNPVxjdqvk97/29/2025 3:49 PM EDT Vitamin B12 deficiency from Last 3 Months Results * (ABNORMAL) CBC auto differential (01/23/2025 3:49 PM EDT)ComponentValueRef RangeTest MethodAnalysis TimePerformed AtPathologist SignatureAuto WBC8.244.00 - 10.60 10*3/uL01/23/2025 4:48 PM [facility])RBC5.82(H)3.80 - 5.00 10*6/uL01/23/2025 4:[address] [facility] ([facility])Boakhfwbxp99.0 (H)12.0 - 15.0 g/dL01/23/2025 4:[address] [facility] ([facility])Hematocrit 49.7(H)36.0 - 45.0 %01/23/2025 4:[address] [facility] ([facility])MCV85.4 82.0 - 98.0 fL01/23/2025 4:[address] [facility] ([facility])MCH27.527.0 - 33.0 pg01/23/2025 4:[address] [facility] ([facility])MCHC32.232.0 - 35.0 g/dL01/23/2025 4:[address] [facility] ([facility])RDW12.911.5 - 15.0 % 01/23/2025 4:[address] [facility] ([facility])Neutrophils %67.540.0 - 72.0 % 01/23/2025 4:[address] [facility] ([facility])Lymphocytes %22.320.0 - 45.0 % 01/23/2025 4:[address] [facility] ([facility])Monocytes %7.45.0 - 12.0 % 01/23/2025 4:[address] [facility] ([facility])Eosinophils %1.60.0 - 6.0 % 01/23/2025 4:[address] [facility] ([facility])Basophils %0.70.0 - 1.0 % 01/23/2025 4:[address] [facility] ([facility])Neutrophils Absolute5.561.60 - 7.60 10*3/01/23/2025 4:[address] [facility] ([facility])Lymphocytes Absolute1.841.20 - 4.00 10*3/uL01/23/2025 4:[address] [facility] ([facility])Monocytes Absolute0.610.10 - 1.00 10*3/uL01/23/2025 4:[address] [facility] ([facility])Eosinophils Absolute0.130.00 - 0.50 10*3/uL01/23/2025 4:[address] [facility] ([facility])Basophils Absolute0.060.00 - 0.20 10*3/uL 01/23/2025 4:[address] [facility] ([facility])Tethorucb122085 - 400 10*3/uL 01/23/2025 4:[address] [facility] ([facility])nRBC %0.00 %01/23/2025 4:[address] [facility] ([facility])Immature Granulocytes %0.50.0 - 1.0 %01/23/2025 4:[address] [facility] ([facility])Immature Granulocytes Absolute0.040.00 - 0.20 10*3/uL01/23/2025 4:[address] [facility] ([facility])Specimen (Source) Anatomical Location / LateralityCollection Method / VolumeCollection Time Received TimeBloodVenous blood specimen / UnknownVenipuncture / Unknown 01/23/2025 3:49 PM EDT01/23/2025 4:33 PM EDT Narrative Authorizing ProviderResult TypeResult StatusЮлия URIOSTEGUI BLOOD ORDERABLESFinal ResultPerforming OrganizationAddressCity/State/ZIP CodePhone Number [facility] ([facility]) [address] [place] [address] * Vitamin B12 (01/23/2025 3:49 PM EDT)ComponentValueRef RangeTest MethodAnalysis TimePerformed AtPathologist SignatureVitamin B-77763540 - 914 pg/mL01/23/2025 5:[address] [facility] ([facility])Comment: REFERENCE RANGES: 180-914 pg/mL ??Normal 145-179 pg/mL ??Indeterminate <145 pg/mL Deficient Specimen (Source)Anatomical Location / LateralityCollection Method / Volume Collection TimeReceived TimeBloodVenous blood specimen / UnknownVenipuncture / Pzrfqjh9701/23/2025 3:49 PM EDT01/23/2025 4:32 PM EDT Narrative Authorizing ProviderResult TypeResult StatusЮлия URIOSTEGUI BLOOD ORDERABLESFinal ResultPerforming OrganizationAddressCity/State/ZIP CodePhone Number [facility] ([facility]) [address] [place] [address] * (ABNORMAL) Comprehensive metabolic panel (01/23/2025 3:49 PM EDT)Component ValueRef RangeTest MethodAnalysis TimePerformed AtPathologist SignatureSodium 135(L)136 - 145 mmol/L01/23/2025 5:[address] [facility] ([facility]) Potassium4.53.5 - 5.1 mmol/L01/23/2025 5:[address] [facility] ([facility]) Sscfzjzc31039 - 107 mmol/L01/23/2025 5:01 [facility] ([facility])CO2 2621 - 31 mmol/L01/23/2025 5:01 [facility] ([facility])Anion Qda421 - 20 mmol/L01/23/2025 5:01 [facility] ([facility])ICF795 - 25 mg/dL 01/23/2025 5:01 [facility] ([facility])Creatinine0.620.60 - 1.20 mg/dL01/23/2025 5:01 [facility] ([facility])BUN/Creatinine Ratio16.1 01/23/2025 5:01 [facility] ([facility])Pkmufjw935(H)70 - 100 mg/dL 01/23/2025 5:01 [facility] ([facility])Calcium9.58.6 - 10.3 mg/dL 01/23/2025 5:01 [facility] ([facility])QED4558 - 39 U/L01/23/2025 5:01 [facility] ([facility])ALT (SGPT)75(H)7 - 52 U/L01/23/2025 5:01 [facility] ([facility])Alkaline Lfiytguovlm874(H)34 - 104 U/L 01/23/2025 5:01 [facility] ([facility])Total Protein7.26.0 - 8.3 g/dL 01/23/2025 5:[address] [facility] ([facility])Albumin4.23.5 - 5.7 g/dL 01/23/2025 5:[address] [facility] ([facility])Total Bilirubin0.30.3 - 1.0 mg/dL01/23/2025 5:[address] [facility] ([facility])cNPZ519.3>60.0 mL/min/1.73m* 5:[address] [facility] ([facility])Comment:The [facility]???s estimated glomerular filtration rate (eGFR) will no [...] not disproportionately affect any one group of individuals.Specimen (Source)Anatomical Location / LateralityCollection Method / VolumeCollection TimeReceived TimeBloodVenous blood specimen / UnknownVenipuncture / Sobobbw9201/23/2025 3:49 PM EDT01/23/2025 4:32 PM EDT Narrative Authorizing ProviderResult TypeResult StatusЮлия URIOSTEGUI BLOOD ORDERABLESFinal ResultPerforming OrganizationAddressCity/State/ZIP CodePhone Number [facility] ([facility]) [address] [place] [address] from Last 3 Months Insurance Advance Directives * Full Code (Latest Code Status on File) Date ActivatedDate InactivatedComments11/09/2024 8:51 PM11/14/2024 5:06 PM Care Teams Team MemberRelationshipSpecialtyStart DateEnd Date Henrik Downing MD [address] [address] PCP - GeneralFamily Medicine11/10/24 Юлия Guerra MD [address] [place] [phone] Consulting PhysicianHematology and Oncology11/23/24
--- OUTSIDE RECORDS SUMMARY | 2025-04-24 09:00 | XMS_ITS | Clinical Summary ---
Author Organization [facility] Address [address] [place] [address] Care Team Providers Care Die Cast Patternmaker Name Role Phone Henrik Downing MD Primary Care Provider [phone] Allergies Active AllergyReactionsCriticalityNoted OaldBtiafxcjHwxltdgfunc50/02/2023 Other Reaction(s): Unknown Sulfa Komimvdbwkl94/20/2018 Other Reaction(s): Unknown, Vomiting Tlxieeatpigz16/02/2023 Other Reaction(s): Unknown Medications MedicationSigDispense QuantityRefillsLast FilledStart DateEnd DateStatus albuterol HFA (Proventil HFA) 90 mcg/act inhaler every 4 (four) hours.Active CeleXA 20 MG tablet 1 (one) time each day at the same time.Active KlonoPIN 2 MG tablet every 8 (eight) hours.Active levothyroxine (Synthroid, Levoxyl) 100 MCG tablet Take 125 mcg by mouth in the morning.Active liothyronine (Cytomel) 5 MCG tablet 1 (one) time each day at the same time.Active rosuvastatin (Crestor) 10 MG tablet Take 10 mg by mouth in the morning.Active rosuvastatin (Crestor) 5 MG tablet 1 (one) time each day at the same time.Active glipiZIDE XL (Glucotrol XL) 5 MG 24 hr tablet Take 5 mg by mouth in the morning. Do not crush, chew, or split. .Active fluticasone (Flonase) 50 MCG/ACT nasal spray Indications:Chronic pansinusitisAdminister 2 sprays into each nostril in the morning. Shake gently. Before first use, prime pump. After use, clean tip and replace cap.. 16 g ctive cetirizine (ZyrTEC) 10 MG tablet Indications:Chronic pansinusitisTake 1 tablet (10 mg) by mouth Daily as needed for allergies. 30 tablet ctive insulin glargine (Lantus) 100 UNIT/ML injection Inject under the skin at bedtimeActive Active Problems ProblemNoted DateDiagnosed DateOME (otitis media with effusion), left06/09/2023 Cxeqqum7304/29/2023astroesophageal reflux fvttwzk5504/29/2023Neurologic disorder associated with diabetes fptubotz18/02/2023Other atopic vkqvopslrs83/02/2023 Chronic dlzhijrnun97/02/2023hronic yhhrbhup55/02/2023Other chronic sinusitis 04/29/2023ain in right knee04/29/2023eripheral krzhsdb4504/29/2023ure peqnorcshhvziwybrjwa46/02/2023Sleep apnea04/29/2023Spondylosis of lumbosacral jcmmmm8504/29/2023Squamous cell carcinoma of skin of trunk04/29/2023Hypothyroidism 04/29/20233062Vllgzxhuvem21/02/2023DDD (degenerative disc disease), cervical 04/29/2023DD (degenerative disc disease), ofdags0104/29/2023 Resolved Problems ProblemNoted DateDiagnosed DateResolved DateLeukoplakia of oral mucosa and nhcmrd033106/29/2022 Encounters DateTypeDepartmentCare KuurLttsdvbibdk81/20/2025 11:15 AM EDTOffice Visit [facility] [address] [place] [address] Misty Peng MD Epidermal inclusion cyst (Primary Dx); Other specified erythematous lhmeqgpoap37/20/2025amboo flowsheet [facility] [address] [place] [address] Misty Peng MD 04/16/20250333Behoeo32/14/2025 10:15 AM EDTOffice Visit [facility] [address] [place] [address] Yordy Bruce PA Acute pain of right knee (Primary Dx); Arthritis of right knee; Chondromalacia, patella, right; Acute pain of left knee04/10/2025amboo flowsheet [facility] [address] [place] [address] Yordy Bruce PA 04/10/20254635Fabzqs00/29/2025Telephone [facility] [address] [place] [phone] Sandee Elkins LPN 03/21/2025 9:55 AM EDTAncillary Procedure [address] [address] 03/21/2025 9:50 AM EDTAncillary Procedure [address] [address] 03/21/2025 9:45 AM EDTOffice Visit [address] [address] Yordy Bruce PA Acute pain of right knee (Primary Dx); Acute pain of left knee; Arthritis of right knee; Chondromalacia, patella, right03/21/2025amboo flowsheet [place] [address] [place] [address] Yordy Bruce PA 03/21/2025Travelfrom Last 3 Months Immunizations ImmunizationAdministration DatesNext NcyNuoq8401/31/2010 Family History Medical HistoryRelationNameCommentsCancerFatherDiabetesMotherHypertensionMother Brain cancerSisterDiabetesSisterHypertensionSisterMultiple myelomaNeg HxRelation NameStatusCommentsFatherAliveMotherAliveSister Social History Tobacco UseTypesPacks/DayYears UsedDateSmoking Tobacco: Every DayCigarettes Smokeless Tobacco: Never Tobacco Cessation:Ready to Q uit: Not Asked; Counseling Given: Not Answered Alcohol UseStandard Drinks/WeekCommentsNot Currently0 (1 standard drink = 0.6 oz pure alcohol)caffeine: yes, coffeeCommentsUnknownSex and Gender InformationValueDate RecordedSex Assigned at BirthNot on fileLegal SexFemale 09/09/2022 6:59 PM EDTGender IdentityNot on fileSexual OrientationNot on file Last Filed Vital Signs Vital SignReadingTime TakenCommentsBlood Ictrwpto100/8308/25/2023 9:03 AM EST Pulse--Temperature--Respiratory Rate--Oxygen Saturation--Inhaled Oxygen Concentration--Yggovg23.8 kg (165 lb)08/25/2023 9:03 AM NRWRfqjxb625.5 cm (5' 2 )08/25/2023 9:03 AM ESTBody Mass Index30.18008/25/2023 9:03 AM EST Plan of Treatment DateTypeDepartmentCare Team (Latest Contact Info)Zraweybmpif28/16/2026 10:20 AM EDTOffice Visit [facility] [address] [place] [address] Misty Peng MD [address] [place] [address] Procedures Procedure NamePriorityDate/TimeAssociated DiagnosisCommentsPR ARTHROCENTESIS ASPIR&/INJ MAJOR JT/BURSA W/O ZPLfwqplx89/24/2025 10:23 AM EDT Arthritis of right knee Chondromalacia, patella, right XR KNEE 1-2 VIEWS LFHJMWspybpe23/24/2025 9:48 AM EDT Acute pain of right knee XR KNEE 1-2 VIEWS MEYDPtrpbul44/24/2025 9:45 AM EDT Acute pain of left knee from Last 3 Months Results * RI ARTHROCENTESIS ASPIR&/INJ MAJOR JT/BURSA W/O US (03/21/2025 10:23 AM EDT) Narrative Yordy Bruce PA - 03/21/2025 10:23 AM EDT SHUKRI Iraheta 03/21/2025 12:30 PM L Inj/Asp: R knee on 03/21/2025 10:23 AM Indications: pain Details: 22 G needle, anterolateral approach Medications: 40 mg methylPREDNISolone acetate 40 MG/ML; 1 mL bupivacaine PF 0.5 % Outcome: tolerated well, no immediate complications E UTILIZING ASEPTIC TECHNIQUE PT GIVEN INJECTION IN RIGHT KNEE, NEUROVASC INTACT S/P INJ, TOLERATED WELL Procedure, treatment alternatives, risks and benefits explained, specific risks discussed. Consent was given by the patient. Authorizing [facility]Res[facility] TypeResult [facility]/BEDSIDE ORDERABLESFinal Result * XR knee 1 or 2 views right (03/21/2025 9:48 AM EDT)Anatomical RegionLaterality ModalityLower Extremities, KneeRightRadiographic ImagingSpecimen (Source) Anatomical Location / LateralityCollection Method / VolumeCollection Time Received Time Narrative 03/21/2025 12:29 PM EDT Imaging Result: AP and Lateral weight bearing: Bones: The bony structures of the knee, including the distal femur, proximal tibia, and patella, visible with slight alignment. ?There are no fractures, dislocations, or bony lesions noted. Moderate lateral and patella femoral degenerative changes. Joint Spaces: The joint spaces are noted for narrowing mostly to lateral aspect with flattening of articular surfaces and subchondral sclerosis and osteophytes Soft Tissues: No radiopaque foreign body, mild effusion Impression: ? Moderate tricompartmental arthritis right knee. Authorizing ProviderResult TypeResult Veronika Bruce PAIMG XR PROCEDURES Edited Result - Final * XR knee 1 or 2 views left (03/21/2025 9:45 AM EDT)Anatomical RegionLaterality ModalityLower Extremities, KneeLeftRadiographic ImagingSpecimen (Source) Anatomical Location / LateralityCollection Method / VolumeCollection Time Received Time Narrative 03/21/2025 12:28 PM EDT Imaging Result: AP and Lateral weight bearing: Bones: The bony structures of the knee, including the distal femur, proximal tibia, and patella, are visible with Stable alignment. ?There are no fractures, dislocations, or bony lesions noted. Moderate lateral and patella femoral degenerative changes. Joint Spaces: The joint spaces are noted for narrowing mostly to lateral aspect with flattening of articular surfaces and subchondral sclerosis and osteophytes Soft Tissues: No radiopaque foreign body, mild effusion Impression: ? Moderate tricompartmental arthritis left knee. Authorizing ProviderResult TypeResult StatusMattangel Bruce PAIMG XR PROCEDURES Edited Result - Final from Last 3 Months Insurance Care Teams Team MemberRelationshipSpecialtyStart DateEnd Henrik Downing MD [address] [place] [phone] PCP - GeneralFanvly Efmsblyr86/6/23
--- OUTSIDE RECORDS SUMMARY | 2025-04-24 09:00 | XMS_ITS | Encounter Summary ---
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 Name Role Phone Henrik Downing MD Primary Care Provider [phone] Encounter Details DateTypeDepartmentCare Team (Latest Contact Info)Ngmxlbieeuc58/29/2025Telephone [facility] [address] [place] [address] Sandee Elkins LPN [address] [place] [address] Social History Tobacco UseTypesPacks/DayYears UsedDateSmoking Tobacco: Every DayCigarettes Smokeless Tobacco: NeverAlcohol UseStandard Drinks/WeekCommentsNot Currently0 (1 standard drink = 0.6 oz pure alcohol)caffeine: yes, coffeeComments UnknownSex and Gender InformationValueDate RecordedSex Assigned at BirthNot on fileLegal UyjFyterd05/15/2023 6:59 PM EDTGender IdentityNot on fileSexual OrientationNot on filedocumented as of this encounter Miscellaneous Notes * Telephone Encounter - Savannah Pink - 04/10/2025 12:43 PM EDT No size or picture noted in the last visit because the patient elected for observation. Scheduled pt to come in to get cyst measured and a photo taken before I can do insurance benefit investigation.Scheduled 04/16/25 @ 11:15 am. * Telephone Encounter - Sandee Elkins LPN - 03/26/2025 1:40 PM EDT Pt LM in call backs requesting to schedule EIC excision. Forwarded VM to Savannah at this time. documented in this encounter Plan of Treatment DateTypeDepartmentCare Team (Latest Contact Info)Xlwndqrpgtu23/16/2026 10:20 AM EDTOffice Visit [facility] [address] [place] [address] Misty Peng MD [address] [place] [address] documented as of this encounter Visit Diagnoses Not on filedocumented in this encounter Care Teams Team MemberRelationshipSpecialtyStart DateEnd Date Henrik Downing MD [address] [place] [address] PCP - GeneralFamily Svaghhjx25/6/23documented as of this encounter
--- OUTSIDE RECORDS SUMMARY | 2025-04-24 09:00 | XMS_ITS | Clinical Summary ---
Author Organization [facility] Address [address] [place] [address] Care Team Providers Care Manager Trading Name Role Phone Юлия Guerra MD Unavailable [phone] Henrik Downing MD Primary Care Provider [phone] Allergies Active AllergyReactionsCriticalityNoted NecsTrzxunbuThkrdzehihjWpevvby95/02/2023 Other Reaction(s): Unknown Sulfa (Sulfonamide Antibiotics)Niwwkouk96/20/2018 Other Reaction(s): Unknown, Vomiting JvqfpvoknqgfDffyxqw60/02/2023 Other Reaction(s): Unknown Medications MedicationSigDispense QuantityRefillsLast FilledStart DateEnd DateStatus levothyroxine (SYNTHROID) 100 mcg tablet Take 125 mcg by mouth once daily.Active liothyronine (CYTOMEL) 5 mcg tablet Take 5 mcg by mouth once daily.Active rosuvastatin (CRESTOR) 5 mg tablet Take 5 mg by mouth once daily.03/29/2019Active pantoprazole DR (PROTONIX) 40 mg tablet Take 2 tablets by mouth once daily.5Active RESTASIS 0.05 % ophthalmic emulsion Use 1 drop in both eyes two times a day.5Active CELEXA 20 mg tablet Take 20 mg by mouth once daily.12/07/2018Active KLONOPIN 2 mg tablet Take 2 mg by mouth three times a day as needed for anxiety.11/23/2018Active cholecalciferol (VITAMIN D3) 50 mcg (2,000 unit) tablet Take 2,000 Units by mouth once daily.5Active Active Problems ProblemNoted DateDiagnosed DateVitamin D gqdjkztwji51/14/6416Phzfyvi40/14/2025 Type 2 diabetes mellitus without ahfhqljjgeygl96/14/2025Tobacco user11/08/2024 Stress incontinence of urine11/08/2024Solitary pulmonary bhflwd3111/08/2024 Elevated liver bkxqmca2811/08/2024Diverticular disease of colon11/08/2024Diabetic oufofpgoio91/14/0181Hduufiggxhw37/14/2025bnormal wgtlowfjsz50/14/2025 Gastroesophageal reflux ovjqhjn4404/29/20230482Qssxeebusyolqu68/02/2023ure plhtepvqyuqsqahicvwu45/02/2023Sleep apnea04/29/2023DD (degenerative disc disease), pzmkoc4204/29/2023DD (degenerative disc disease), dzbkikkz47/02/2023 Squamous cell carcinoma of skin of trunk04/29/2023eripheral qoinutc5104/29/2023 Other atopic xgghxyypdt96/02/2023 Encounters DateTypeDepartmentCare LognCpuawlarkui88/01/2025Telephone Hematology/Oncology [address] [place], [place] [phone] Loc Toribio MD, PhD Patient Question; Returning Patient's Call03/06/2025Orders Only Hematology/Oncology [id number] [place] [address] Loc Toribio MD, PhD Clonal hematopoiesis of indeterminate potential (Primary Dx)03/05/2025Telephone Hematology/Oncology [address] [place] [address] Loc Toribio MD, PhD Patient Cgtfyqjy67/06/2025 12:30 PM EDTVisit (SP) Office Hematology/Oncology [address] [place] [address] Loc Toribio MD, PhD Clonal hematopoiesis of indeterminate potential (Primary Dx)01/31/2025bstract Hematology/Oncology [address] [place] [address] Salome Cornejo, Research Coordinator Research (IRB 5024 Informed Consent)01/31/20257578Bvrbze30/01/2025Lab Requisition [facility] [address] [place] [address] Loc Toribio MD, PhD Person encountering health services to consult on behalf of another personfrom Last 3 Months Immunizations ImmunizationAdministration DatesNext Duetetanus diphtheria pertussis (Tdap) vaccine, age 7+ yr (ADACEL, BOOSTRIX)01/31/2010 Social History Tobacco UseTypesPacks/DayYears UsedDateSmoking Tobacco: FormerCigarettes Tobacco Cessation:Counseling Given: Not Answered Area Deprivation IndexAnswerDate RecordedNational Score (1-100), lower number is lower xsaf377801/31/2025State Score (1-10), lower number is lower xere70301/31/2025 Data from: https://www.neighborhoodatlas.medicine.[facility].edu/. Last address used for [address]01/31/2025CommentsUnknownSex and Gender InformationValueDate RecordedSex Assigned at BirthNot on fileLegal SexFemale 11/08/2024 7:19 AM EDTGender IdentityNot on fileSexual OrientationNot on file Last Filed Vital Signs Vital SignReadingTime TakenCommentsBlood Abyfvcue875/95001/31/2025 12:38 PM EDT Left arm ydplfgqQjmlv3710/06/2025 12:38 PM GFFSiavrvmgwvv47.7 ??C (98 ??F) 01/31/2025 12:38 PM EDTRespiratory Hkov445501/31/2025 12:38 PM EDTOxygen Nnuyehyfjc95%01/31/2025 12:38 PM EDTInhaled Oxygen Concentration--Ewctmy29 kg (143 lb 4.8 oz)01/31/2025 12:38 PM FZFMxakat868 cm (5' 1.42 )01/31/2025 12:38 PM EDTBody Mass Index26.71001/31/2025 12:38 PM EDT Plan of Treatment Health MaintenanceDue DateLast JoeoBfynbqelUzM4W61/02/1969Diabetic Foot Exam 1973Dilated Retinal Exam1973Urine Albumin:Creatinine Ratio1973 Annual PCP Team Chronic Disease Visit1981Depression Zbfmdigmj52/02/1982 Hepatitis C Bvnngyofo12/02/1982LDL Swrdsgalgxp74/02/1982Pneumococcal Vaccine: 50+ (1 of 2 - PCV)1982Shingrix Vaccine (1 of 2)1982Cervical Cancer Wipihsjkh13/02/1985Mammogram Kgmuzuzda80/02/2004CT Ubmoskhfjtbj22/02/2009Fecal Occult Blood06/29/20085943Xwnxksrfsmrct29/02/2009DTaP,Tdap,Td Vaccine (2 - Td or Tdap)ColonoscopyRSV Vaccine (1 - Risk 60-74 years 1-dose series)4Covid-19 Vaccine ( - 2024- season) 5107/30/2020, 09/28/2020, 09/07/2020Influenza Vaccine (#1)2025 05/29/2021, 05/16/2018, 05/04/2018, Additional history existsCologuard (FIT-DNA) olorectal Cancer Urijcuujk52/24/2028HIV ScreeningCompleted 11/14/2024 Procedures Procedure NamePriorityDate/TimeAssociated DiagnosisCommentsEXTERNAL LAB 03/26/2025 11:54 AM EDT RBC UQQMUARZGJEhjxacd86/06/2025 2:22 PM EDT Clonal hematopoiesis of indeterminate potential IMMUNOFIXATION SCREEN, TRMJYDxexqsu62/06/2025 2:22 PM EDT Clonal hematopoiesis of indeterminate potential PROTEIN TOTAL RZHMagwrco79/06/2025 2:22 PM EDT Clonal hematopoiesis of indeterminate potential PROTEIN ELECTROPHORESIS SERUM WITH EFFIE (P)Kejjgen6501/31/2025 2:22 PM EDT Clonal hematopoiesis of indeterminate potential LARGE GRANULAR LYMPH LMTCFUqjapua93/06/2025 2:22 PM EDT Clonal hematopoiesis of indeterminate potential PATHOLOGIST INTERPRETATION CBC/QRBNLvqrdfo89/06/2025 2:22 PM EDT Clonal hematopoiesis of indeterminate potential CBC + AKAFIulqrim76/06/2025 2:22 PM EDT Clonal hematopoiesis of indeterminate potential MISC SEND OUT TST 3Xaalkov14/06/2025 2:22 PM EDT Clonal hematopoiesis of indeterminate potential PROT ELECT SERUM WITH EFFIE AND NEIPCANhkafmt20/06/2025 2:22 PM EDT Clonal hematopoiesis of indeterminate potential COPPER WQDAXPuigloe63/06/2025 2:22 PM EDT Clonal hematopoiesis of indeterminate potential LEAD PEASMXaiyxyg12/06/2025 2:22 PM EDT Clonal hematopoiesis of indeterminate potential ZINC EYALbimfym24/06/2025 2:22 PM EDT Clonal hematopoiesis of indeterminate potential ERYTHROPOIETIN/DYHGpwklpi38/06/2025 2:22 PM EDT Clonal hematopoiesis of indeterminate potential IMMUNOGLOBULINS BABYvtuawt64/06/2025 2:22 PM EDT Clonal hematopoiesis of indeterminate potential LARGE GRANULAR LYMPH OZFTSPhcxkaz89/06/2025 2:22 PM EDT Clonal hematopoiesis of indeterminate potential LD LACTATE NTGSYDGVhxxmpb22/06/2025 2:22 PM EDT Clonal hematopoiesis of indeterminate potential COMPREHENSIVE METABOLIC BLTQOQldwqvd50/06/2025 2:22 PM EDT Clonal hematopoiesis of indeterminate potential IMMATURE PLATELET ETPBGUMWJclgztl80/06/2025 2:22 PM EDT Clonal hematopoiesis of indeterminate potential HAPTOGLOBIN IPWAxvjhde90/06/2025 2:22 PM EDT Clonal hematopoiesis of indeterminate potential OUTSIDE BONE MARROW SLIDE OZBTIMGkowmes95/01/2025 11:03 AM EDT Person encountering health services to consult on behalf of another person from Last 3 Months Results * EXTERNAL LAB (03/26/2025 11:54 AM EDT) Narrative Authorizing ProviderResult TypeResult StatusExternal Provider PA-CLABORATORY Final Result * (ABNORMAL) IMMUNOFIXATION SCREEN, SERUM (01/31/2025 2:22 PM EDT)ComponentValue Ref RangeTest MethodAnalysis TimePerformed AtPathologist SignatureMPA ResultA poorly defined region of restricted mobility is present that may represent an M protein.(A)No M protein is identified.02/04/2025 11:02 AM [facility] LABInterpretation (MPA)Poorly defined region of restricted mobility in IgG [...] further for monoclonal gammopathy. Clinical correlation is necessary.02/04/2025 11:02 AM [facility] LABStaff Review (MPA)Reviewed by Dr. Benjamin Rai MD02/04/2025 11:02 AM EDT [facility] LABSpecimen (Source)Anatomical Location / LateralityCollection Method / VolumeCollection TimeReceived TimeBloodBLOOD SPECIMEN / UnknownVenipuncture / Ewrvnpz0801/31/2025 2:22 PM EDT01/31/2025 2:23 PM EDT Narrative Authorizing ProviderResult TypeResult StatusLoc Toribio MD, PhD LABORATORYFinal ResultPerforming OrganizationAddressCity/State/ZIP CodePhone Number [facility] [address] [address], * (ABNORMAL) PROTEIN ELECTROPHORESIS SERUM WITH EFFIE (P) (01/31/2025 2:22 PM EDT) ComponentValueRef RangeTest MethodAnalysis TimePerformed AtPathologist SignatureAlbumin for SPE4.643.43 - 5.41 g/dL02/05/2025 9:26 AM [facility] LABAlpha 1 Globulin0.360.18 - 0.43 g/dL02/05/2025 9:26 AM [facility] LABAlpha 2 Globulin0.810.42 - 0.98 g/dL 02/05/2025 9:26 AM [facility] LABBeta Globulin0.930.61 - 1.17 g/dL02/05/2025 9:26 AM [facility] LABGamma Globulin 1.070.53 - 1.51 g/dL02/05/2025 9:26 AM [facility] LAB Interpretation (Prot Electro)An atypical region of restricted mobility is identified on protein electrophoresis.(A)No definitive M protein is identified on protein electrophoresis.02/05/2025 9:26 AM [facility] LABM-Protein Xnkzajjd00/11/2025 9:26 AM [facility] Comment:Not Applicable.M-Protein Concentration0.00<=0.00 g/dL02/05/2025 9:26 AM [facility] LABSPE Staff ReviewReviewed by Dr. Benjamin Rai MD02/05/2025 9:26 AM [facility] LABComment (Serum Prot Electro)A reflex test for Monoclonal Protein analysis (immunofixation) has been ordered.02/05/2025 9:26 AM [facility] LABInterpretation Comment for Protein ElectrophoresisThe atypical region is relatively poorly defined and may represent an unusual presentation of polyclonal immunoglobulins, but cannot rule out the presence of a low level M protein. If clinically indicated, monoclonal protein analysis and serum free light chain analysis are suggested to evaluate further for monoclonal gammopathy.02/05/2025 9:26 AM [facility] LABSpecimen (Source)Anatomical Location / LateralityCollection Method / VolumeCollection TimeReceived TimeBloodBLOOD SPECIMEN / UnknownVenipuncture / Faulkvo8001/31/2025 2:22 PM EDT01/31/2025 2:23 PM EDT Narrative [facility] - 02/05/2025 9:26 AM EDT Serum electrophoresis test was performed using the Globili V8 NEXUS capillary electrophoresis method. Results obtained with different assay methods or kits cannot be used interchangeably. Authorizing ProviderResult TypeResult Shayy Toribio MD, PhD LABORATORYFinal ResultPerforming OrganizationAddressCity/State/ZIP CodePhone Number [facility] [address] [place] [address], * RBC MORPHOLOGY (01/31/2025 2:22 PM EDT)ComponentValueRef RangeTest Method Analysis TimePerformed AtPathologist SignaturePlatelet EstimateAdequate 02/01/2025 6:50 PM EDTCBELLEVUE HOSPITAL LABRed Cell MorphReviewed: pbxzpqxgmdmu95/07/2025 6:50 PM EDTCBELLEVUE HOSPITAL LABSpecimen (Source)Anatomical Location / LateralityCollection Method / VolumeCollection TimeReceived TimeBloodBLOOD SPECIMEN / UnknownVenipuncture / Pwxkxgw4901/31/2025 2:22 PM EDT01/31/2025 2:23 PM EDT Narrative Authorizing ProviderResult TypeResult Shayy Toribio MD, PhD LABORATORYFinal ResultPerforming OrganizationAddressCity/State/ZIP CodePhone Number [facility] [address] [place] [address], * LARGE GRANULAR LYMPH COUNT (01/31/2025 2:22 PM EDT)ComponentValueRef RangeTest MethodAnalysis TimePerformed AtPathologist SignaturePercent LGL7.0% of Mtpjarqonxr85/07/2025 6:53 PM EDSELECT [facility] LABAbsolute LGL 0.15k/uL02/01/2025 6:53 PM EDSELECT [facility] LABSpecimen (Source)Anatomical Location / LateralityCollection Method / VolumeCollection TimeReceived TimeBloodBLOOD SPECIMEN / UnknownVenipuncture / Tbopfsy0901/31/2025 2:22 PM EDT01/31/2025 2:23 PM EDT Narrative Authorizing ProviderResult TypeResult Shayy Toribio MD, PhD LABORATORYFinal ResultPerforming OrganizationAddressCity/State/ZIP CodePhone Number [facility] [address] [place] [address], * IMMATURE PLATELET FRACTION (01/31/2025 2:22 PM EDT)ComponentValueRef RangeTest MethodAnalysis TimePerformed AtPathologist SignatureImmature PLT Fract4.40.9 - 7.2 %01/31/2025 2:39 [address] [facility]TC[facility] (Source) Anatomical Location / LateralityCollection Method / VolumeCollection Time Received TimeBloodBLOOD SPECIMEN / UnknownVenipuncture / Lyxenjk0401/31/2025 2:22 PM EDT01/31/2025 2:23 PM EDT Narrative Authorizing ProviderResult TypeResult StatusLoc Toribio MD, PhD LABORATORYFinal ResultPerforming OrganizationAddressCity/State/ZIP CodePhone Number [place] [address], * (ABNORMAL) LACTATE DEHYDROGENASE (01/31/2025 2:22 PM EDT)ComponentValueRef RangeTest MethodAnalysis TimePerformed AtPathologist ZefzopauoCJ807(H)135 - 214 U/L01/31/2025 3:44 [address] [facility]TCANC[facility] (Source) Anatomical Location / LateralityCollection Method / VolumeCollection Time Received TimeBloodBLOOD SPECIMEN / UnknownVenipuncture / Gcfhvgt8401/31/2025 2:22 PM EDT01/31/2025 2:23 PM EDT Narrative Authorizing ProviderResult TypeResult StatusLoc Toribio MD, PhD LABORATORYFinal ResultPerforming OrganizationAddressCity/State/ZIP CodePhone Number [place] [address], * [facility] SEND OUT TST 1 (01/31/2025 2:22 PM EDT)ComponentValueRef RangeTest Method Analysis TimePerformed AtPathologist SignatureTest 3:01 PM EDT [facility] LABComment:ResearchTest Results 3:01 PM EDT [facility] LABComment:ResearchReferral Lab 3:01 PM EDT [facility] LABComment:ResearchSpecimen (Source)Anatomical Location / LateralityCollection Method / VolumeCollection TimeReceived TimeBloodBLOOD SPECIMEN / UnknownVenipuncture / Odkphxj2001/31/2025 2:22 PM EDT01/31/2025 2:23 PM EDT Narrative Authorizing ProviderResult TypeResult StatusLoc Toribio MD, PhD LABORATORYFinal ResultPerforming OrganizationAddressty/State/ZIP CodePhone Number [facility] [address] [phone] * ZINC BLD (01/31/2025 2:22 PM EDT)ComponentValueRef RangeTest MethodAnalysis TimePerformed AtPathologist FctcojdkoYrrh7337 - 120 ug/dL02/01/2025 12:26 PM EDSELECT [facility] LABComment:This test was developed, and its performance characteristics determined by the [facility] Department of Pathology and Laboratory Medicine. It has not been cleared or approved by the FDA. The [facility] Department of Pathology and Laboratory Medicine is regulated under CLIA as qualified to perform high-complexity testing. This test is used for clinical purposes. It should not be regarded as investigational or for research.Specimen (Source)Anatomical Location / LateralityCollection Method / VolumeCollection TimeReceived TimeBloodBLOOD SPECIMEN / UnknownVenipuncture / Kbhavog4101/31/2025 2:22 PM EDT01/31/2025 2:23 PM EDT Narrative Authorizing ProviderResult TypeResult Shayy Toribio MD, PhD LABORATORYFinal ResultPerforming OrganizationAddressty/[facility]/ZIP CodePhone Number [facility] [address] [phone], * PATHOLOGIST INTERPRETATION CBC/DIFF (01/31/2025 2:22 PM EDT)ComponentValueRef RangeTest MethodAnalysis TimePerformed AtPathologist SignaturePathologist Interpretation, CBCDIFElevated hemoglobin 02/01/2025 6:54 PM EDSELECT [facility] LABCBCDIF Pathologist Reviewed byReviewed by Aysha Moseley M.D.02/01/2025 6:54 PM [facility] LABSpecimen (Source)Anatomical Location / Laterality Collection Method / VolumeCollection TimeReceived TimeBloodBLOOD SPECIMEN / UnknownVenipuncture / Bfprwvz8501/31/2025 2:22 PM EDT01/31/2025 2:23 PM EDT Narrative Authorizing ProviderResult TypeResult Shayy Toribio MD, PhD LABORATORYFinal ResultPerforming OrganizationAddressty/State/ZIP CodePhone Number [facility] [address] [address], * PROTEIN, TOTAL (01/31/2025 2:22 PM EDT)ComponentValueRef RangeTest Method Analysis TimePerformed AtPathologist SignatureProtein, Total7.86.3 - 8.0 g/dL 01/31/2025 4:08 PM EDTCBELLEVUE HOSPITAL LABSpecimen (Source) Anatomical Location / LateralityCollection Method / VolumeCollection Time Received TimeBloodBLOOD SPECIMEN / UnknownVenipuncture / Eqtuurb6401/31/2025 2:22 PM EDT01/31/2025 2:23 PM EDT Narrative Authorizing ProviderResult TypeResult Shayy Toribio MD, PhD LABORATORYFinal ResultPerforming OrganizationAddressCity/State/ZIP CodePhone Number [facility] [address] [address], [place] * LEAD BLOOD (01/31/2025 2:22 PM EDT)ComponentValueRef RangeTest MethodAnalysis TimePerformed AtPathologist SignatureLead<1.0<3.5 ug/dL02/01/2025 3:24 PM EDT [facility] LABComment: The Centers for Disease Control and Prevention (CDC) recommends a blood lead reference value of less than 3.5 ??g/dL (Update of the Blood Lead Reference Value - [place], 2020). The CDC's updated Recommended Actions Based on Blood Lead Level can be accessed at www.cdc.gov. Consult your [facility] and/or applicable regulatory agencies for specific guidance on testing follow up and patient management. This test was developed, and its performance characteristics determined by the [facility] Department of Pathology and Laboratory Medicine. It has not been cleared or approved by the FDA. The [facility] Department of Pathology and Laboratory Medicine is regulated under CLIA as qualified to perform high-complexity testing. This test is used for clinical purposes. It should not be regarded as investigational or for research. Specimen (Source)Anatomical Location / LateralityCollection Method / Volume Collection TimeReceived TimeBlood, VenousBLOOD SPECIMEN / UnknownVenipuncture / Cqtaugi9101/31/2025 2:22 PM EDT01/31/2025 2:23 PM EDT Narrative Authorizing ProviderResult TypeResult StatusLoc Toribio MD, PhD LABORATORYFinal ResultPerforming OrganizationAddressCity/State/ZIP CodePhone Number [facility] [address] [address], [place] * (ABNORMAL) IMMUNOGLOBULINS,IGG,IGA,IGM (01/31/2025 2:22 PM EDT)ComponentValue Ref RangeTest MethodAnalysis TimePerformed AtPathologist HaibmxltdOqV855760 - 1,600 mg/dL01/31/2025 8:02 PM EDTCBELLEVUE HOSPITAL NAFNuS90556 - 400 mg/dL01/31/2025 8:02 PM EDTCBELLEVUE [facility] YDNJnR488(H)40 - 230 mg/dL01/31/2025 8:02 PM EDTCBELLEVUE [facility]PITAL LABSpecimen (Source)Anatomical Location / LateralityCollection Method / VolumeCollection TimeReceived TimeBloodBLOOD SPECIMEN / UnknownVenipuncture / Vgdefqp7001/31/2025 2:22 PM EDT01/31/2025 2:23 PM EDT Narrative Authorizing ProviderResult TypeResult Shayy Toribio MD, PhD LABORATORYFinal ResultPerforming OrganizationAddressty/State/ZIP CodePhone Number [facility] [address] [address], [place] * HAPTOGLOBIN (01/31/2025 2:22 PM EDT)ComponentValueRef RangeTest MethodAnalysis TimePerformed AtPathologist FlfaonphkSkjnrymkhzr06092 - 238 mg/dL01/31/2025 4:08 PM EDTCBELLEVUE HOSPITAL LABSpecimen (Source)Anatomical Location / LateralityCollection Method / VolumeCollection TimeReceived Time BloodBLOOD SPECIMEN / UnknownVenipuncture / Iykelcg4701/31/2025 2:22 PM EDT 01/31/2025 2:23 PM EDT Narrative Authorizing ProviderResult TypeResult Shayy Toribio MD, PhD LABORATORYFinal ResultPerforming OrganizationAddressCity/State/ZIP CodePhone Number [facility] [address] [place] [address], * (ABNORMAL) ERYTHROPOIETIN/EPO (01/31/2025 2:22 PM EDT)ComponentValueRef Range Test MethodAnalysis TimePerformed AtPathologist SignatureErythropoietin2.4(L) 2.6 - 18.5 mIU/mL02/01/2025 10:09 AM EDTCBELLEVUE HOSPITAL LAB Specimen (Source)Anatomical Location / LateralityCollection Method / Volume Collection TimeReceived TimeBloodBLOOD SPECIMEN / UnknownVenipuncture / Eywaunv1501/31/2025 2:22 PM EDT01/31/2025 2:23 PM EDT Narrative [facility] - 02/01/2025 10:09 AM EDT Test analyzed by the Sharri DxI method. Authorizing ProviderResult TypeResult Shayy Toribio MD, PhD LABORATORYFinal ResultPerforming OrganizationAddressCity/State/ZIP CodePhone Number [facility] [address] [place] [address], * COPPER BLOOD (01/31/2025 2:22 PM EDT)ComponentValueRef RangeTest Method Analysis TimePerformed AtPathologist NkotjzrwqPzqsvc38429 - 155 ug/dL 02/01/2025 12:26 PM EDTCBELLEVUE HOSPITAL LABComment:This test was developed, and its performance characteristics determined by the [facility] Department of Pathology and Laboratory Medicine. It has not been cleared or approved by the FDA. The [facility] Department of Pathology and Laboratory Medicine is regulated under CLIA as qualified to perform high- complexity testing. This test is used for clinical purposes. It should not be regarded as investigational or for research.Specimen (Source)Anatomical Location / LateralityCollection Method / VolumeCollection TimeReceived Time BloodBLOOD SPECIMEN / UnknownVenipuncture / Qfitmux0301/31/2025 2:22 PM EDT 01/31/2025 2:23 PM EDT Narrative Authorizing ProviderResult TypeResult Shayy Toribio MD, PhD LABORATORYFinal ResultPerforming OrganizationAddressCity/State/ZIP CodePhone Number [facility] [address] [facility] [address] [place] [address], * (ABNORMAL) COMPREHENSIVE METABOLIC PANEL (01/31/2025 2:22 PM EDT)Component ValueRef RangeTest MethodAnalysis TimePerformed AtPathologist Signature Protein, Total8.2(H)6.3 - 8.0 g/dL01/31/2025 2:52 PM [facility]TCANC[facility] AT [facility] LABAlbumin4.63.9 - 4.9 g/dL01/31/2025 2:52 PM EDTC[facility] LAB Calcium, Total10.18.5 - 10.2 mg/dL01/31/2025 2:52 PM EDTC[facility] LABBilirubin, Total0.30.2 - 1.3 mg/dL01/31/2025 2:52 PM EDTC[facility] LABAlkaline Monfgwpkbgb658(H)34 - 123 U/L01/31/2025 2:52 PM EDTC[facility] DWGUHK0144 - 35 U/L01/31/2025 2:52 PM EDTC[facility] RTUASU62(H)7 - 38 U/L01/31/2025 2:52 PM [facility]TC[facility] ACVQvwzoue089 (H)74 - 99 mg/dL01/31/2025 2:52 PM EDTCANC[facility] LABComment: The [place] [employer] (ADA) provides guidance for cutoff values for fasting glucose andrandom glucose. The ADA defines fasting as no [...] Standards of Medical Care in Diabetes 2016, [place] [employer]. Diabetes Care. 2016.39(Suppl 1). SPB425 - 21 mg/dL01/31/2025 2:52 PM EDTCANC[facility] LABCreatinine0.60 0.58 - 0.96 mg/dL01/31/2025 2:52 PM EDTC[facility] VYXUeimvk627708 - 144 mmol/L01/31/2025 2:52 PM EDTC[facility] LABPotassium5.13.7 - 5.1 mmol/L01/31/2025 2:52 PM [facility]TC[facility] HFUDzotqvhq93148 - 107 mmol/L 01/31/2025 2:52 PM [facility]TC[facility] HJGRI26170 - 30 mmol/L01/31/2025 2:52 PM EDTC[facility] LABAnion Zvc551 - 15 mmol/L01/31/2025 2:52 PM EDTC[facility] LABEstimated Glomerular Filtration Qckr860>=60 mL/min/1.73m 01/31/2025 2:52 PM EDTCANCER [facility] LABComment:Estimated Glomerular Filtration Rate (eGFR) is calculated using the 2020 CKD-EPI creatinine equation. This equation utilizes serum creatinine, sex, and age as parameters. The creatinine assay has traceable calibration to isotope dilution-mass spectrometry. Refer to KDIGO guidelines for clinical interpretation. In patients with unstable renal function, e.g. those with acute kidney injury, the eGFRmay not accurately reflect actual GFR.Specimen (Source)Anatomical Location / LateralityCollection Method / VolumeCollection TimeReceived TimeBloodBLOOD SPECIMEN / UnknownVenipuncture / Tbcuwbz9201/31/2025 2:22 PM EDT01/31/2025 2:23 PM EDT Narrative Authorizing ProviderResult TypeResult StatusManuelroslaw Malu LAND, PhD LABORATORYFinal ResultPerforming OrganizationAddressCity/State/ZIP CodePhone Number [facility] [address] * (ABNORMAL) COMPLETE BLOOD COUNT AND DIFFERENTIAL (01/31/2025 2:22 PM EDT) ComponentValueRef RangeTest MethodAnalysis TimePerformed AtPathologist [id number] - 11.00 k/uL01/31/2025 2:39 PM [facility] LABComment:Results checked and verified.No clot detected.RBC6.33(H)3.90 - 5.20 m/uL01/31/2025 2:39 PM EDTCANC[facility] UAOQtgcroeyyh26.4(H)11.5 - 15.5 g/dL01/31/2025 2:39 PM EDTCANC[facility] YSZRvarmqlzcg77.4(H)36.0 - 46.0 %01/31/2025 2:39 PM EDTCANC[facility] CENTERMCV84.480.0 - 100.0 fL 01/31/2025 2:39 PM EDTC[facility] HHYRHU89.526.0 - 34.0 pg01/31/2025 2:39 PM EDTC[facility]ENTERXZGDWOC89.630.5 - 36.0 g/dL01/31/2025 2:39 PM EDTCANC[facility] LABRDW-CV12.711.5 - 15.0 %01/31/2025 2:39 PM EDT [facility] LABPlatelet [id number] - 400 k/01/31/2025 2:39 PM EDT [facility] MXJOBR38.09.0 - 12.7 fL01/31/2025 2:39 PM EDTCANC[facility] LABNeutrophils %68.8%01/31/2025 2:39 PM EDTCANC[facility] LABAbs Neut7.081.45 - 7.50 k/01/31/2025 2:39 PM EDTC[facility] LABLymphocytes %20.6%01/31/2025 2:39 PM EDTCANC[facility] LABAbs Lymph2.121.00 - 4.00 k/uL01/31/2025 2:39 PM EDTC[facility] Monocytes %8.0%01/31/2025 2:39 PM EDTC[facility] LABAbs Mono0.82 <0.87 k/01/31/2025 2:39 PM EDTCANC[facility] LABEosinophils %1.3% 01/31/2025 2:39 PM EDTCANC[facility] LABAbs Eosin0.13<0.46 k/uL 01/31/2025 2:39 PM EDTCANC[facility] LABBasophils %0.8%01/31/2025 2:39 PM EDTCANC[facility] LABAbs Baso0.08<0.11 k/uL01/31/2025 2:39 PM EDT [facility] LABImmature Granulocytes %0.5%01/31/2025 2:39 PM EDT [facility]Abs Immature Gran0.05<0.10 k/uL01/31/2025 2:39 PM EDT [facility] LABNRBC0.0/100 WBC01/31/2025 2:39 PM EDTCANC[facility] CENTERAbsolute nRBC<0.01<0.01 k/uL01/31/2025 2:39 PM EDTCANC[facility] LABDiff PpdnFcnz93/06/2025 2:39 PM EDTCANC[facility] LABSpecimen (Source)Anatomical Location / LateralityCollection Method / VolumeCollection TimeReceived TimeBloodBLOOD SPECIMEN / UnknownVenipuncture / [id number]/31/2025 2:22 PM EDT01/31/2025 2:23 PM EDT Narrative Authorizing ProviderResult TypeResult StatusManuelroslaw Malu LAND, PhD LABORATORYFinal ResultPerforming OrganizationAddressCity/State/ZIP CodePhone Number [facility] [address] * OUTSIDE BONE MARROW SLIDE REVIEW (01/26/2025 11:03 AM EDT)ComponentValueRef RangeTest MethodAnalysis TimePerformed AtPathologist SignatureCase ReportBone Marrow Pathology Report ?Case: [id number] ? Authorizing Provider: ??Loc Toribio MD, Collected: ? 01/26/2025 11:03 AM ? PhD ? Ordering Location: ? [facility] ?Received: ?01/26/2025 11:02 AM ? [facility] ? Pathologist: ? Luis Enrique Andrea MD ? Specimen: ?Slide(s), 13 SLIDES [id number] / [id number] ? 02/08/2025 10:15 AM [facility] LABFINAL DIAGNOSIS A. [facility], [place], [place] [address]. [id number], 11/10/2024: Bone marrow, aspirate, core biopsy, and clot section: - Hypercellular bone marrow with prominent eythroid hyperplasia and occasional atypical erythroid precursors - Adequate megakaryocytes with unremarkable morphology - Increased iron stores without ring sideroblasts - See comment Peripheral blood, smear: - Pancytopenia with macrocytic anemia and thrombocytopenia - Neutropenia 02/08/2025 10:15 AM [facility] at 1015 EDTDiagnosis Comment This 59-year-old female presented to an outside institution with pancytopenia and a history of vitamin B12 deficiency. The patient underwent a bone marrow study which was submitted to the [facility] for review. The bone marrow [...] 5th Edition and ICC 2021 suggest a minimumVAF threshold of >2% for a diagnosis of CCUS as a component of diagnosis. Correlation with the clinical findings is suggested. 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 02/08/2025 10:15 AM [facility] LABDisclaimerLaboratory Developed Test (LDT) Disclaimer: Performance characteristics of immunohistochemical, immunofluorescent, and chromogenic in-situ hybridization tests have been determined by the performing laboratory within [facility]'s [facility] Pathology and Laboratory Medicine Department ([facility], [facility], [facility], [facility], [facility], [facility], or [facility]) in a manner consistent with CLIA requirements. One or more of these tests may not have been cleared or approved by the FDA. [facility] is regulated under CLIA as qualified to perform high- complexity testing. These tests are used for clinical purposes. These should not be regarded asinvestigational or for research. Positive and negative controls stain appropriately.02/08/2025 10:15 AM [facility] Specimen (Source)Anatomical Location / LateralityCollection Method / Volume Collection TimeReceived TimeBlocks or SlidesMICROSCOPE SLIDE / Xhbxmvr4301/26/2025 11:03 AM EDT01/26/2025 11:02 AM EDT Narrative Authorizing ProviderResult TypeResult StatusLoc Toribio MD, PhDSURGICAL PATHOLOGYFinal ResultPerforming OrganizationAddressCity/State/ZIP CodePhone Number [facility] [address] [facility] [address] [place] [address], from Last 3 Months Insurance Care Teams Team MemberRelationshipSpecialtyStart DateEnd Henrik Downing MD [address] [place] [address] PCP - GeneralFamily Medicine01/24/25 Юлия Guerra MD [address] [place] [address] ReferringHematology/Oncology01/24/25
--- OUTSIDE RECORDS SUMMARY | 2025-04-24 09:01 | XMS_ITS | Encounter Summary ---
Author Organization [facility] Address [address] [facility] [place] [address] Care Team Providers Care Stereoptician Name Role Phone Henrik Downing MD Primary Care Provider [phone] Encounter Details DateTypeDepartmentCare Team (Latest Contact Info)Ztxstgfthnp61/14/2025amboo flowsheet [facility] [address] [place] [address] Yordy Bruce PA [address] [place] [address] Social History Tobacco UseTypesPacks/DayYears UsedDateSmoking Tobacco: Every DayCigarettes Smokeless Tobacco: NeverAlcohol UseStandard Drinks/WeekCommentsNot Currently0 (1 standard drink = 0.6 oz pure alcohol)caffeine: yes, coffeeComments UnknownSex and Gender InformationValueDate RecordedSex Assigned at BirthNot on fileLegal SeoVzvcgg64/15/2023 6:59 PM EDTGender IdentityNot on fileSexual OrientationNot on filedocumented as of this encounter Plan of Treatment DateTypeDepartmentCare Team (Latest Contact Info)Yssiqizaanp15/16/2026 10:20 AM EDTOffice Visit [facility] [address] [place] [address] Misty Peng MD [address] [place] [address] documented as of this encounter Visit Diagnoses Not on filedocumented in this encounter Care Teams Team MemberRelationshipSpecialtyStart DateEnd Date Henrik Downing MD [address] [place] [address] PCP - GeneralFamily Jjxbvsvz12/6/23documented as of this encounter
--- OUTSIDE RECORDS SUMMARY | 2025-04-24 09:01 | XMS_ITS | Encounter Summary ---
Author Organization [facility] Address [address] [place] [address] Care Team Providers Care Screen Door Maker Name Role Phone Henrik Downing MD Primary Care Provider [phone] Encounter Details DateTypeDepartmentCare Team (Latest Contact Info)Zjejqvqkrks60/20/2025Travel Social History Tobacco UseTypesPacks/DayYears UsedDateSmoking Tobacco: Every DayCigarettes Smokeless Tobacco: NeverAlcohol UseStandard Drinks/WeekCommentsNot Currently0 (1 standard drink = 0.6 oz pure alcohol)caffeine: yes, coffeeComments UnknownSex and Gender InformationValueDate RecordedSex Assigned at BirthNot on fileLegal NkePkaede41/15/2023 6:59 PM EDTGender IdentityNot on fileSexual OrientationNot on filedocumented as of this encounter Plan of Treatment DateTypeDepartmentCare Team (Latest Contact Info)Bzmhlanupuh44/16/2026 10:20 AM EDTOffice Visit [facility] [address] [facility] [address] [place] [address] Misty Peng MD [address] [facility] [address] [place] [address] documented as of this encounter Visit Diagnoses Not on filedocumented in this encounter Care Teams Team MemberRelationshipSpecialtyStart DateEnd Date Henrik Downing MD [address] [facility] [place] [address] PCP - GeneralFamily Leytpbaa72/6/23documented as of this encounter
--- OUTSIDE RECORDS SUMMARY | 2025-04-24 09:01 | XMS_ITS | Encounter Summary ---
Author Organization [facility] Address [address] [place] [address] Care Team Providers Care Model Technician Name Role Phone Henrik Downing MD Primary Care Provider [phone] Encounter Details DateTypeDepartmentCare Team (Latest Contact Info)Pnyhxttinob91/20/2025amboo flowsheet [facility] [place] [facility] [address] [facility] [place] [address] Misty Pneg MD [address] [place] [address] Social History Tobacco UseTypesPacks/DayYears UsedDateSmoking Tobacco: Every DayCigarettes Smokeless Tobacco: NeverAlcohol UseStandard Drinks/WeekCommentsNot Currently0 (1 standard drink = 0.6 oz pure alcohol)caffeine: yes, coffeeComments UnknownSex and Gender InformationValueDate RecordedSex Assigned at BirthNot on fileLegal JdsLbhjti35/15/2023 6:59 PM EDTGender IdentityNot on fileSexual OrientationNot on filedocumented as of this encounter Plan of Treatment DateTypeDepartmentCare Team (Latest Contact Info)Cjxzaikcnbc98/16/2026 10:20 AM EDTOffice Visit [facility] [place] [facility] [address] [place] [address] Misty Peng MD [address] [place] [address] documented as of this encounter Visit Diagnoses Not on filedocumented in this encounter Care Teams Team MemberRelationshipSpecialtyStart DateEnd Date Henrik Downing MD [address] [place] [phone] PCP - GeneralFamily Bodrmulc40/6/23documented as of this encounter
--- OUTSIDE RECORDS SUMMARY | 2025-04-24 09:01 | XMS_ITS | Encounter Summary ---
Author Organization [facility] Address [address] [place] [address] Care Team Providers Care Wash Barrel Leader Name Role Phone Henrik Downing MD Primary Care Provider [phone] Encounter Details DateTypeDepartmentCare Team (Latest Contact Info)Irnkrgtqyun17/14/2025Travel Social History Tobacco UseTypesPacks/DayYears UsedDateSmoking Tobacco: Every DayCigarettes Smokeless Tobacco: NeverAlcohol UseStandard Drinks/WeekCommentsNot Currently0 (1 standard drink = 0.6 oz pure alcohol)caffeine: yes, coffeeComments UnknownSex and Gender InformationValueDate RecordedSex Assigned at BirthNot on fileLegal SupSsejkg82/15/2023 6:59 PM EDTGender IdentityNot on fileSexual OrientationNot on filedocumented as of this encounter Plan of Treatment DateTypeDepartmentCare Team (Latest Contact Info)Jquzeramehd57/16/2026 10:20 AM EDTOffice Visit [facility] [address] [facility] [address] [place] [address] Misty Peng MD [address] [facility] [address] [place] [address] documented as of this encounter Visit Diagnoses Not on filedocumented in this encounter Care Teams Team MemberRelationshipSpecialtyStart DateEnd Date Henrik Downing MD [address] [facility] [place] [address] PCP - GeneralFamily Qeshkbuv50/6/23documented as of this encounter
[2025-04-24 09:05] VITALS: BP 121/90; PULSE 91; TEMP 36.6; O2SAT 96; BMI 26.5
--- NOTE | 2025-04-24 09:44 | ED.GENADUL1 ---
HPI HPI - General Adult General Chief complaint: Skin/Abscess/Foreign Body Stated complaint: ABCESS R HAND FINGER Time Seen by Provider: 04/24/25 09:40 Source: patient Mode of arrival: walk-in Limitations: no limitations History of Present Illness HPI narrative: Patient is diabetic presented to the ER after she was already evaluated yesterday in urgent care started on Keflex and doxycycline She is presents to us with a paronychia and apparently got worse since yesterday with more swelling in her right index finger and she was told by the urgent care to present into the ER in case of increasing the swelling after she was started on antibiotic The patient denies any fever or chills Related Data Home Medications ?Medication ?Instructions ?Recorded ?Confirmed cholecalciferol (vitamin D3) 50 50 mcg PO DAILY 11/07/24 11/07/24 mcg (2,000 unit) tablet citalopram 20 mg tablet 20 mg PO DAILY 11/07/24 11/07/24 clonazepam 2 mg tablet 2 mg PO Q12H 11/07/24 11/07/24 esomeprazole magnesium 40 mg 40 mg PO Q24H 11/07/24 11/07/24 capsule,delayed release insulin glargine-yfgn 100 unit/mL 20 unit subcut .QHS 11/07/24 11/07/24 (3 mL) subcutaneous pen (Semglee (insulin glargine-yfgn) Pen) levothyroxine 150 mcg tablet 150 mcg PO .ACB 11/07/24 11/07/24 (Synthroid) liothyronine 5 mcg tablet 10 mcg PO DAILY 11/07/24 11/07/24 rosuvastatin 5 mg tablet 5 mg PO DAILY 11/07/24 11/07/24 sucralfate 100 mg/mL oral 10 ml PO Q6H 11/07/24 11/07/24 suspension Allergies Allergy/AdvReac Type Severity Reaction Status Date / Time Sulfa (Sulfonamide Allergy Unknown Unknown Verified 04/24/25 09:05 Antibiotics) Opioid HPI Opioid Management Most Recent Opioid Data: Last ORT Total Score 1 11/07/24, 13:00 Last ORT Risk Category Low Risk 11/07/24, 13:00 Review of Systems ROS Status of ROS 10 or more systems reviewed and unremarkable except as noted in history and below [facility] Medical History (Updated 04/24/25 @ 12:09 by Beatriz Smith MD) GERD (gastroesophageal reflux disease) ?K21.9 - Gastro-esophageal reflux disease without esophagitis (ICD-10) Depressed ?F32.A - Depression, unspecified (ICD-10) Hypercholesterolemia ?E78.00 - Pure hypercholesterolemia, unspecified (ICD-10) Vitamin D deficiency ?E55.9 - Vitamin D deficiency, unspecified (ICD-10) Hypoxia, sleep related ?G47.34 - Idiopathic sleep related nonobstructive alveolar hypoventilation (ICD-10) Hypothyroid ?E03.9 - Hypothyroidism, unspecified (ICD-10) B12 deficiency ?E53.8 - Deficiency of other specified B group vitamins (ICD-10) Elevated liver enzymes ?R74.8 - Abnormal levels of other serum enzymes (ICD-10) Elevated LDH ?R74.02 - Elevation of levels of lactic acid dehydrogenase [LDH] (ICD-10) Coagulopathy ?D68.9 - Coagulation defect, unspecified (ICD-10) Acute UTI ?N39.0 - Urinary tract infection, site not specified (ICD-10) Hypokalemia ?E87.6 - Hypokalemia (ICD-10) Thrombocytopenia ?D69.6 - Thrombocytopenia, unspecified (ICD-10) Neutropenia ?D70.9 - Neutropenia, unspecified (ICD-10) Anemia ?D64.9 - Anemia, unspecified (ICD-10) Diabetes ?E11.9 - Type 2 diabetes mellitus without complications (ICD-10) Hypotension ?I95.9 - Hypotension, unspecified (ICD-10) Cirrhosis ?K74.60 - Unspecified cirrhosis of liver (ICD-10) Enlarged liver ?R16.0 - Hepatomegaly, not elsewhere classified (ICD-10) Panic attack ?F41.0 - Panic disorder [episodic paroxysmal anxiety] (ICD-10) Anxiety ?F41.9 - Anxiety disorder, unspecified (ICD-10) Surgical History (Updated 11/07/24 @ 13:11 by Tereza Tavera) Hx of tonsillectomy ?Z90.89 - Acquired absence of other organs (ICD-10) History of foot surgery ?Z98.890 - Other specified postprocedural states (ICD-10) Hx of appendectomy ?Z90.49 - Acquired absence of other specified parts of digestive tract (ICD-10) History of hysterectomy ?Z90.710 - Acquired absence of both cervix and uterus (ICD-10) History of cholecystectomy ?Z90.49 - Acquired absence of other specified parts of digestive tract (ICD-10) Family History (Updated 11/07/24 @ 13:12 by Tereza Tavera) Father Family history of COPD (chronic obstructive pulmonary disease) Mother Family history of COPD (chronic obstructive pulmonary disease) Family history of diabetes mellitus Brother Family history of cancer Family history of diabetes mellitus Family history of hypertension Grandmother Family history of stroke Social History (Updated 11/07/24 @ 13:13 by Tereza Tavera) Within the past year, how often did you have a drink containing alcohol: never Within the past year, how often did you have six or more drinks on one occasion: never Score interpretation: A score less than 3 is consistent with normal alcohol consumption. Smoking status: Current every day smoker Non-prescribed substance use: denies use Previous occupational history: retired Highest level of school completed/degree received: high school graduate Are you now , , , , never or living with a partner: In a typical week, how many times do you talk on the telephone with family, friends, or neighbors: 3 or more times per week How often do you get together with friends or relatives: 3 or more times per week How often do you attend orthodox or cheondoism services: 4 or more times per year Do you belong to any clubs or organizations such as orthodox groups unions, fraternal or athletic groups, or school groups: no Total score: 3 Score interpretation: A score of greater than or equal to 2 indicates the lowest level of social isolation. Little interest or pleasure in doing things: not at all Feeling down, depressed, or hopeless: not at all Feel stressed/tense/nervous/anxious/difficulty sleeping: not at all Do you think of yourself as: straight/heterosexual Gender Identity: female Exam Narrative Exam Narrative: Nurses notes and vital signs reviewed and patient is not hypoxic. General: Well-appearing and in no apparent distress. Skin: Warm, dry, no pallor noted. No rash. Right hand examination: Have swelling at the index finger just at the lateral aspect of the nailbed. With a very small amount of pus that is obvious on examination she is tender at the tip of the finger as well No tenderness to palpation. No rebound, guarding, or rigidity noted. Neurological: A&O x4. No cranial nerve dysfunction observed. No truncal ataxia. Moves all extremities. Sensation intact. Psychiatric: Cooperative and interactive. Normal mood and affect. Constitutional Vital Signs, click to edit/add: Last Vital Signs Temp 98 F 04/24/25 09:05 Pulse 91 H 04/24/25 09:05 Resp 18 04/24/25 09:05 BP 121/90 04/24/25 09:05 Pulse Ox 96 04/24/25 09:05 O2 Del Method Room Air 04/24/25 09:05 Course Vital Signs Vital signs: Vital Signs Temperature 98 F 04/24/25 09:05 Pulse Rate 91 H 04/24/25 09:05 Respiratory Rate 18 04/24/25 09:05 Blood Pressure 121/90 04/24/25 09:05 Pulse Oximetry 96 04/24/25 09:05 Oxygen Delivery Method Room Air 04/24/25 09:05 Temperature 98 F 04/24/25 09:05 Pulse Rate 91 H 04/24/25 09:05 Respiratory Rate 18 04/24/25 09:05 Blood Pressure 121/90 04/24/25 09:05 Pulse Oximetry 96 04/24/25 09:05 Oxygen Delivery Method Room Air 04/24/25 09:05 Medical Decision Making MDM Narrative Medical decision making narrative: Presenting to us with paronychia and she needed further drainage of the pus after she was started antibiotic After cleaning the area with alcohol and applying 1% lidocaine at the second metacarpal phalangeal joint for a nerve block Adequate pain control was obtained and the patient had very small almost 2 mm stab wound to the lateral aspect of the nailbed after which the patient had almost half a cc of pus drained Adequately the patient had applied the pressure and Band-Aid applied after that Culture was sent from the pus The patient was instructed on continuing warm water dipping and back to the ER in case of new symptoms she is adequately getting treated with Keflex and doxycycline The patient to follow-up with the primary care within 2 to 3 days and to come back to the ER in case of any worsening of the current symptoms or any new symptoms or concerns Discharge Plan Discharge Chief Complaint: Skin/Abscess/Foreign Body Clinical Impression: Paronychia Patient Disposition: Home, Self-Care Time of Disposition Decision: 12:09 Condition: Good Mode of Transportation: Private Vehicle Prescriptions / Home Meds: No Action sucralfate 100 mg/mL suspension 10 ml PO Q6H esomeprazole magnesium 40 mg capsule,delayed release(DR/EC) 40 mg PO Q24H citalopram 20 mg tablet 20 mg PO DAILY rosuvastatin 5 mg tablet 5 mg PO DAILY liothyronine 5 mcg tablet 10 mcg PO DAILY clonazepam 2 mg tablet 2 mg PO Q12H insulin glargine-yfgn [Semglee(insulin glarg-yfgn)Pen] 100 unit/mL (3 mL) insulin pen 20 unit SUBCUT .QHS cholecalciferol (vitamin D3) 50 mcg (2,000 unit) tablet 50 mcg PO DAILY levothyroxine [Synthroid] 150 mcg tablet 150 mcg PO .ACB Print Language: [place] Instructions: Paronyrobert (ED) Referrals: Henrik Downing MD [Primary Care Provider, Family Practice] - 1 week Discharge Date/Time: 04/24/25 12:18
[2025-04-24] MEDS: LIDOCAINE HCL 1% 100 MG/10 ML MDV INJ (11:55)
== END 2025-04-24 12:18 | disposition home or self-care (01) ==
PROVIDERS: Emergency Provider Emergency Medicine; PCP Family Medicine
DX: L03.011 Cellulitis of right finger (principal); E11.9 Type 2 diabetes mellitus without complications; Z79.4 Long term (current) use of insulin; F17.200 Nicotine dependence, unspecified, uncomplicated
CPT/HCPCS: 87070; 87075; 87186; 99284

== ENCOUNTER 2025-06-11 11:15 | Outpatient (OUT) | payer OTHER, SELFPAY ==
[2025-06-11 11:45] LABS: Hematocrit 46.8 % (36.0-48.0); Hemoglobin 15.3 g/dL (12.0-16.0); Immature Granulocytes Abs Auto 0.08 10^3/uL (0.00-0.03); Immature Granulocytes Pct Auto 1.1 % (0.0-0.5); Lymphocytes Absolute Auto 1.8 10^3/uL (1.2-3.8); Mean Corpuscular HGB Conc 32.7 g/dL (29.9-35.2); Mean Corpuscular Hemoglobin 28.3 pg (26.7-34.0); Mean Corpuscular Volume 86.7 fL (81.0-99.0); Platelet Count 194 10^3/uL (150-450); Red Blood Count 5.40 10^6/uL (4.20-5.40); White Blood Count 7.3 10^3/uL (4.0-11.0)
[2025-06-11 12:05] LABS: Alanine Aminotransferase 94 U/L (14-59); Albumin Globulin Ratio 0.9; Albumin Level 3.4 g/dL (3.4-5.0); Alkaline Phosphatase 268 U/L (46-116); Anion Gap 12.0; Aspartate Amino Transferase 38 U/L (15-37); Blood Urea Nitrogen 12.0 mg/dL (7.0-18.0); Calcium 8.8 mg/dL (8.5-10.1); Carbon Dioxide 29.8 mmol/L (21.0-32.0); Chloride 100 mmol/L (98-107); Estimated GFR (African America >60 (>=60 mL/min/1.73m^2); Estimated GFR (Non-African Ame >60 (>=60 mL/min/1.73m^2); Free T3 3.09 pg/mL (2.18-3.98); Globulin 3.9 g/dL; Glucose 311 mg/dL (74-106); Potassium 3.8 mmol/L (3.5-5.1); Sodium 138 mmol/L (136-145); Thyroid Stimulating Hormone 0.116 uIU/mL (0.358-3.740); Total Protein 7.3 g/dL (6.4-8.2)
== END 2025-06-11 11:16 | disposition home or self-care (01) ==
LOC: LAB 11:15
PROVIDERS: PCP Family Medicine; Visit Provider Family Medicine
DX: R42 Dizziness and giddiness (principal)
CPT/HCPCS: 36415; 80053; 84436; 84443; 84481; 85025

== ENCOUNTER 2025-06-18 09:29 | Outpatient (OUT) | payer OTHER, SELFPAY ==
--- OUTSIDE RECORDS SUMMARY | 2025-06-06 05:54 | XMS_ITS ---
Author Organization [facility] [place] Address [address] [place] [address] Care Team Providers Care Sales Assoc Name Role Phone Salazar Downing Primary Care Provider Encounters Encounter Location Date Provider Diagnosis Electronic Health Records [address] [facility] [address] 06/06/2025 Salazar Downing Plan Of Treatment No Information Progress Notes * Andreia CID EDOB:[birth year] (59 yo F)Acc No.[id number]:06/06/2025 Patient:?Andreia CID :[id number]???Age:59 Y???Sex:FemalePhone:[phone] Address:[address] [place] [address], [phone] Subjective: * Chief Complaints: * * Medical History: * Surgical History: * Hospitalization/Major Diagno stic Procedure: * Medications: Objective: * Vitals: * Physical Examination: ??? Assessment: Plan: * Treatment: * Procedure Codes: * Preventive Medicine: ??Screenings/Counseling:?TOBACCO ACTION PLAN?Patient counselled on the dangers of tobacco use and urged to quit.? 11/06/2024 * true * Date:?Generated for Printing/Faxing/eTransmitting on:?06/18/2025 09:31 AM EST
--- OUTSIDE RECORDS SUMMARY | 2025-06-06 10:18 | XMS_ITS ---
Author Organization [facility] in [place] Address [address] [place] [address] Care Team Providers Care Meat Trimmer Name Role Phone Salazar Downing Primary Care Provider Encounters Encounter Location Date Provider Diagnosis Electronic Health Records [address] [facility] [place] [address] 06/06/2025 Salazar Downing Plan Of Treatment No Information Progress Notes * Andreia CID EDOB:[birth year] (59 yo F)Acc No.[id number]:06/06/2025 Patient:?Andreia CID :1965???Age:59 Y???Sex:FemalePhone:[phone] Address:[address] [place] [address], [id number] Subjective: * Chief Complaints: * * Medical History: * Surgical History: * Hospitalization/Major Diagno stic Procedure: * Medications: Objective: * Vitals: * Physical Examination: ??? Assessment: Plan: * Treatment: * Procedure Codes: * Preventive Medicine: ??Screenings/Counseling:?TOBACCO ACTION PLAN?Patient counselled on the dangers of tobacco use and urged to quit.? 07/03/2024 * true * Date:?Generated for Printing/Faxing/eTransmitting on:?06/18/2025 09:31 AM EST
--- OUTSIDE RECORDS SUMMARY | 2025-06-11 03:22 | XMS_ITS ---
Author Organization [facility] in [place] Address [address] [place] [address] Care Team Providers Care Literature Teacher Name Role Phone Salazar Downing Primary Care Provider [phone] REASON FOR VISIT dizzy Encounters Encounter Location Date Provider Diagnosis [facility] [address] [facility] [place] [address] 06/11/2025 Salazar Downing Vertigo R42 Assessments Encounter Date Diagnosis (ICD Code) Assessment Notes Treatment Notes Treatment Clinical Notes Section Notes 06/11/2025 Vertigo (ICD-10 - R42) Plan Of Treatment Pending Test Test Name Order Date COMPREHENSIVE METABOLIC PROFILE WITH GFR 06/11/2025 CBC W/AUTO DIFF 06/11/2025 THYROID PANEL (T4/TSH/FREE T3) Progress Notes * Andreia CID EDOB:[birth year] (59 yo F)Acc No.[id number]:06/11/2025 Patient:?Andreia CID :1965???Age:59 Y???Sex:FemalePhone:[phone] Address:[address] [place] [address], [id number] Subjective: * Chief Complaints: * D selvin * Medical History: * Surgical History: * Hospitalization/Major Diagno stic Procedure: * Medications: Objective: * Vitals: * Physical Examination: ??? Assessment: * Assessment: 1.?Vertigo - R42 (Primary)??? Plan: * Treatment: ?LAB: COMPREHENSIVE METABOLIC PROFILE WITH GFR ?LAB: CBC W/AUTO DIFF ?LAB: THYROID PANEL (T4/TSH/FREE T3) * Procedure Codes: * true * Date:?Generated for Printing/Faxing/eTransmitting on:?06/18/2025 09:31 AM EST
--- OUTSIDE RECORDS SUMMARY | 2025-06-11 08:08 | XMS_ITS ---
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) Activeconfirmed Encounters Encounter Location Date Provider Diagnosis [facility] [address] [place] [address] 06/11/2025 Salazar Downing Paronychia L03.019 ; Acute non-recurrent sinusitis, unspecified location J01.90 and 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 Assessments Encounter Date Diagnosis (ICD Code) Assessment Notes Treatment Notes Treatment Clinical Notes Section Notes 06/11/2025 Paronychia (ICD-10 - L03.019) 5Acute non-recurrent sinusitis, unspecified location (ICD-10 - J01.90) 06/11/2025Other primary ovarian failure (ICD-10 - E28.39) Plan Of Treatment Medication Medication Name Sig Start Date Stop Date Notes levoFLOXacin 750 MG 1 tablet Orally Once a day 025 Cephalexin 500 MGOralDoxycycline Hyclate 100 MGTAKE 1 CAPSULE BY MOUTH TWICE DAILY FOR 10 DAYS OralMeclizine HCl 25 MG1 tablet as needed Orally Q 6 hours 4PRNPending Test Test Name Order Date DEXA Axial Skeleton (hips, pelvis, spine )* 06/11/2025 Progress Notes * Andreia CID EDOB:[birth year] (59 yo F)Acc No.[id number]:06/11/2025 Patient:?Andreia CID E :1965???Age:59 Y???Sex:FemalePhone:[phone] Address:[address] [place] [id number] * Refills Stop levoFLOXacin Tablet, 750 MG, Orally, 1 tablet, Once a day Stop Cephalexin Capsule, 500 MG, Oral Stop Doxycycline Hyclate Capsule, 100 MG, Oral, TAKE 1 CAPSULE BY MOUTH TWICE DAILY FOR 10 DAYS Stop Meclizine HCl Tablet, 25 MG, Orally, 1 tablet as needed, Q 6 hours Subjective: * Chief Complaints: * L ab results * Medical History: * Surgical History: * Hospitalization/Major Diagno stic Procedure: * Medications: Objective: * Vitals: * Physical Examination: ??? Assessment: * Assessment: 1.?Paronychia - L03.019???2.?Acute non-recurrent sinusitis, unspecified location - J01.90???3.?Other primary ovarian failure - E28.39??? Plan: * Treatment: Stop levoFLOXacin Tablet, 750 MG, 1 tablet, Orally, Once a day.??2.?Acute non- recurrent sinusitis, unspecified location? Stop Meclizine HCl Tablet, 25 MG, 1 tablet as needed, Orally, Q 6 hours, Notes to Pharmacist: PRN. ?3.?Other primary ovarian failure?Imaging: DEXA Axial Skeleton (hips, pelvis, spine)*4.?Others? Stop Cephalexin Capsule, 500 MG, Oral;?Stop Doxycycline Hyclate Capsule, 100 MG, TAKE 1 CAPSULE BY MOUTH TWICE DAILY FOR 10 DAYS, Oral.?? * Procedure Codes: * true * Date:?Generated for Printing/Faxing/eTransmitting on:?06/18/2025 09:31 AM EST
--- OUTSIDE RECORDS SUMMARY | 2025-06-18 09:31 | XMS_ITS | Patient Health Record ---
Author Organization [facility] in [place] Address [address] [place] [address] Care Team Providers Care Pediatric Allergist Name Role Phone Salazar Downing Primary Care Provider Allergies Allergen (clinical drug ingredient) Drug/Non Drug Allergy documented on EMR Reaction Allergy Type Onset Date Status sulfamethoxazole / trimethoprim Bactrim flu like sympto ms Drug Allergy ActivesimvastatinZocormuscle achingDrug AllergyActiveSubstance with sulfonamide structure and antibacterial mechanism of action (substance)Sulfa Antibiotics diarrheaDrug AllergyActivemetforminmetFORMINdizzinessDrug AllergyActive Results Component Value Reference Range Notes AMMONIA Reviewed date:11/07/2024 03:13:58 PM Interpretation: Performing Lab: Notes/Report: [facility] , Ammonia 16 11-32 umol/L Performing Lab:see noteML - [facility] LBPTT Reviewed date:11/07/2024 03:13:58 PM Interpretation: Performing Lab: Notes/Report: [facility] ,Partial Thromboplastin Time25.322.3-36.2 secPerforming Lab:see note - [facility] LBFREE T3 Reviewed date:09/07/2024 07:57:57 PM Interpretation: Performing Lab: Notes/Report: [facility] ,Free T31.622.18-3.98 pg/mLPerforming Lab:see note - [facility] LB LIPID PROFILE Reviewed date:09/07/2024 07:57:57 PM Interpretation: Performing Lab: Notes/Report: [facility] ,Xxjdnpdxoaaff399<=150 mg/sYMtxncfmftjk606<=200 mg/dLHDL Azitpglfncy1801-45 mg/dL > or =60 mg/dl - LOW CARDIOVASCULAR RISK <40 mg/dl - HIGH CARDIOVASCULAR RISK LDL Cholesterol Xpayneflyy52.0 <100 mg/dl OPTIMAL 100-129 mg/dl NEAR OR ABOVE OPTIMAL 130-159 mg/dl BORDERLINE HIGH 160-189 mg/dl HIGH >190 mg/dl VERY HIGH VLDL LGILDMRBXWR11.8Chol HDL Ratio4.5 3.3 - 4.4 LOW RISK 4.4 - 7.1 AVERAGE RISK 7.1 - 11.0 MODERATE RISK >11.0 HIGH RISK Performing Lab:see note - [facility] LBPROF 14(COMP METB) Reviewed date:09/07/2024 07:57:57 PM Interpretation: Performing Lab: Notes/Report: [facility] ,Neyooo485401-598 mmol/LPotassium4.33.5-5.1 mmol/ZYsplpvbz47038-789 mmol/LCarbon Goqrvfq81.021.0-32.0 mmol/LAnion Gap10.3Mxioagi83950-572 mg/dLBlood Urea Jjrordpx16.07.0-18.0 mg/dLCreatinine0.620.55-1.02 mg/dLEstimated GFR ( Mendy>60>=60 mL/min/1.73m 2Estimated GFR (Non- Radha>60>=60 mL/min/1.73m 2BUN Creatinine Ratio17.6Tbqrqul4.98.5-10.1 mg/dLBilirubin Total1.20.2-1.0 mg/dL Aspartate Amino Ejlwwkovykd7969-48 U/LAlanine Lgqbsknzkyuhiqhv3697-64 U/L Alkaline Umcofxehxkq34409-625 U/LTotal Protein6.56.4-8.2 g/dLAlbumin Level3.8 3.4-5.0 g/dLGlobulin2.7Albumin Globulin Ratio1.4Performing Lab:see note - [facility] LBT4 Reviewed date:09/07/2024 07:57:57 PM Interpretation: Performing Lab: Notes/Report: [facility] ,T4 Thyroxine5.104.80-13.90 ug/dLPerforming Lab:see note - [facility] LBTSH Reviewed date:09/07/2024 07:57:57 PM Interpretation: Performing Lab: Notes/Report: [facility] ,Thyroid Stimulating Yooubdv15.4120.358-3.740 uIU/mLPerforming Lab:see noteML - [facility] LBCBC AUTO DIFF Reviewed date:10/10/2024 01:39:20 PM Interpretation: Performing Lab: Notes/Report: [facility] ,White Blood Count3.94.0-11.0 10 3/uLRed Blood Count2.024.20-5.40 10 6/uL Hemoglobin8.612.0-16.0 g/sKOgqtptzefu64.836.0-48.0 %Mean Corpuscular Dodhdt426.8 81.0-99.0 fLMACROCYTOSIS 3+Mean Corpuscular Fpkbsyxhny27.626.7-34.0 pgMean Corpuscular HGB Conc34.729.9-35.2 g/dLRed Cell Distribution Width13.211.0-15.0 % Platelet Ypwwb19589-038 10 3/uLMean Platelet Nagdkz50.09.5-13.5 fLNeutrophils Percent Auto67.343.0-75.0 %Lymphocytes Percent Auto27.320.5-60.0 %Monocytes Percent Auto2.61.7-12.0 %Eosinophils Percent Auto0.80.9-7.0 %Basophils Percent Auto0.50.2-2.0 %Immature Granulocytes Pct Auto1.50.0-0.5 %Neutrophils Absolute Auto2.61.4-6.5 10 3/uLLymphocytes Absolute Auto1.11.2-3.8 10 3/uLMonocytes Absolute Auto0.10.3-0.8 10 3/uLEosinophils Absolute Auto0.00.0-0.7 10 3/uL Basophils Absolute Auto0.00.0-0.1 10 3/uLImmature Granulocytes Abs Auto0.060.00- 0.03 10 3/uLPerforming Lab:see noteML - [facility] LBLAB TESTING Reviewed date:10/11/2024 08:14:00 PM Interpretation: Performing Lab: Notes/Report: [id number] Mitochondrial (M2) Antibody [facility] ,Miscellaneous TestCOMMENT. Test Ordered: [id number] Mitochondrial (M2) Antibody Mitochondrial (M2) Antibody <20.0 Units CB Reference Range: 0.0-20.0 Negative 0.0 - 20.0 Equivocal 20.1 - 24.9 Positive >24.9 Mitochondrial (M2) Antibodies are found in 90-96% of patients with primary biliary cirrhosis. Performed at: - [facility] [address] [id number] Leather Etcher: Brayan Pena PhD, Phone: [phone] Performing Lab:see note - [facility] LBPROF 14(COMP METB) Reviewed date:10/10/2024 01:39:20 PM Interpretation: Performing Lab: Notes/Report: [facility] ,Eqsfcv988938-943 mmol/LPotassium3.93.5-5.1 mmol/SGbxiaqsh15987-294 mmol/LCarbon Wxgiivb03.721.0-32.0 mmol/LAnion Gap14.7Nmelsfw1316-047 mg/dLBlood Urea Nitrogen 15.07.0-18.0 mg/dLCreatinine0.710.55-1.02 mg/dLEstimated GFR ( Mendy>60 >=60 mL/min/1.73m 2Estimated GFR (Non- Radha>60>=60 mL/min/1.73m 2BUN Creatinine Ratio21.4Wopfekg2.98.5-10.1 mg/dLBilirubin Total1.20.2-1.0 mg/dL Aspartate Amino Dwltkftynfk3715-80 U/LAlanine Yupsprddicgeuyjg6914-76 U/L Alkaline Egqwahruvgw5401-222 U/LTotal Protein6.56.4-8.2 g/dLAlbumin Level3.83.4- 5.0 g/dLGlobulin2.7Albumin Globulin Ratio1.4Performing Lab:see noteML - [facility] LBLAB TESTING Reviewed date:10/11/2024 08:14:00 PM Interpretation: Performing Lab: Notes/Report: [id number] Alkaline Phosphatase Isoenzymes [facility] ,Miscellaneous TestCOMMENT. Test Ordered: [id number] Alk Phos Isoenzyme Alkaline Phosphatase 80 IU/L CB Reference Range: 44-121 Liver Fraction: 78 % CB Reference Range: 18-85 Bone Fraction: 22 % CB Reference Range: 14-68 Intestinal Frac.: 0 % CB Reference Range: 0-18 Performed at: - [address] [id number] Leather Etcher: Brayan Pena PhD, Phone: [phone] Performing Lab:see note - [facility] LBANTIBODY ID PANEL Reviewed date:11/08/2024 07:38:21 PM Interpretation: Performing Lab: Notes/Report: [facility] ,Antibody IdentificationEFIBRINOGEN Reviewed date:11/07/2024 03:13:58 PM Interpretation: Performing Lab: Notes/Report: [facility] ,Nkhawnndek413099-050 mg/dLPerforming Lab:see note - [facility] LB FOLATE Reviewed date:11/07/2024 03:13:58 PM Interpretation: Performing Lab: Notes/Report: [facility] ,Gkicws34.108.60-58.90 ng/mLPerforming Lab:see noteML - [facility] LB FREE T3 Reviewed date:11/07/2024 03:13:58 PM Interpretation: Performing Lab: Notes/Report: [facility] ,Free T31.852.18-3.98 pg/mLPerforming Lab:see note - [facility] LB LACTATE or LACTIC ACID Reviewed date:11/07/2024 03:13:58 PM Interpretation: Performing Lab: Notes/Report: [facility] ,Lactate/Lactic Acid0.90.4-2.0 mmol/LPerforming Lab:see noteML - [facility] LBLDH Reviewed date:11/07/2024 03:13:58 PM Interpretation: Performing Lab: Notes/Report: [facility] ,Lactate Ohddgvpdkltva165587-051 U/LPerforming Lab:see note - [facility] LBLIVER PROFILE Reviewed date:11/07/2024 03:13:58 PM Interpretation: Performing Lab: Notes/Report: [facility] ,Bilirubin Total1.70.2-1.0 mg/dLBilirubin Direct0.40.0-0.2 mg/dLAspartate Amino Qjvyopxbhcy39604-65 U/LAlanine Jafbejjobzehizyk9158-36 U/LAlkaline Amnhjlavahx73 46-116 U/LTotal Protein5.76.4-8.2 g/dLAlbumin Level3.33.4-5.0 g/dLGlobulin2.4 Albumin Globulin Ratio1.4Performing Lab:see note - [facility] LB MAGNESIUM Reviewed date:11/07/2024 03:13:58 PM Interpretation: Performing Lab: Notes/Report: [facility] ,Magnesium1.91.8-2.4 mg/dLPerforming Lab:see note - [facility] LB PERIPHERAL SMEAR Reviewed date:11/09/2024 09:02:01 PM Interpretation: Performing Lab: Notes/Report: [facility] ,Peripheral SmearSEE SCANNED REPORTPerforming Lab:[facility] LBPROF CHEM 8 (BAS METB) Reviewed date:11/07/2024 03:13:58 PM Interpretation: Performing Lab: Notes/Report: [facility] ,Jwevsu350566-956 mmol/LPotassium2.73.5-5.1 mmol/LRESULTS CALLED TO Dr. Ware Azhwikso49370-071 mmol/LCarbon Hezjkyq37.221.0-32.0 mmol/LAnion Gap13.5Glucose 59299-743 mg/dLBlood Urea Pvzdohkl96.07.0-18.0 mg/dLCreatinine0.810.55-1.02 mg/dLEstimated GFR ( Mendy>60>=60 mL/min/1.73m 2Estimated GFR (Non- Radha>60>=60 mL/min/1.73m 2BUN Creatinine Ratio34.2Atkaguc8.38.5-10.1 mg/dLPerforming Lab:see note - [facility] LBT4 Reviewed date:11/07/2024 03:13:58 PM Interpretation: Performing Lab: Notes/Report: [facility] ,T4 Rvmbisucu39.504.80-13.90 ug/dLPerforming Lab:[facility] LBTSH Reviewed date:11/07/2024 03:13:58 PM Interpretation: Performing Lab: Notes/Report: [facility] ,Thyroid Stimulating Hormone0.0520.358-3.740 uIU/mLPerforming Lab:see note - [facility] LBProthrombin Time INR Reviewed date:11/07/2024 03:13:58 PM Interpretation: Performing Lab: Notes/Report: [facility] ,Prothrombin Time13.79.0-11.6 secINR1.33 DESIRED INR: 2.0-3.0 CONDITIONS NOT LISTED BELOW 2.5-3.5 FOR PROSTHETIC HEART VALVE REPLACEMENT 2.5-3.5 RECURRENT THROMBOSIS Performing Lab:see note - [facility] LBManual Differential Reviewed date:11/07/2024 03:13:58 PM Interpretation: Performing Lab: Notes/Report: [facility] ,Segmented Neutrophils % Skbfcp50.043.0-75.0Lymphocytes Percent Yvmfxc20.020.5- 60.0 %Monocytes Percent Manual2.01.7-12.0 %Eosinophils Percent Manual0.00.9-7.0 %Basophils Percent Manual0.00.2-2.0 %Segmented Neut Absolute Manual1.231.4-6.5 10 3/uLLymphocytes Absolute Manual0.921.20-3.80 10 3/uLMonocytes Absolute Manual 0.040.30-0.80 10 3/uLEosinophils Absolute Manual0.000.00-0.70 10 3/uLBasophils Abs Manual0.000.00-0.10 10 3/uLMacrocytosis2+Performing Lab:see note - [facility] LBPacked Red Blood Cells Reviewed date:11/08/2024 07:38:21 PM Interpretation: Performing Lab: Notes/Report:Packed Red Blood Cells [id number] OP RC TRANSFUSED 11/08/24 0241 [id number] OP RC TRANSFUSED 11/08/24 0617 Type and Screen Reviewed date:11/08/2024 07:38:21 PM Interpretation: Performing Lab: Notes/Report: [facility] ,Blood TypeO PositiveAntibody ScreenPOSITIVETroponin I High Sensitivity Reviewed date:11/07/2024 03:13:58 PM Interpretation: Performing Lab: Notes/Report: [facility] ,Troponin I High Sensitivity4.24.0-51.3 pg/mL CUT-OFF POINTS HAVE BEEN ESTABLISHED BASED ON THE FOURTH UNIVERSAL DEFINITION OF MYOCARDIAL INFARCTION. THE UPPER REFERENCE LIMIT (URL) OF TROPONIN, DEFINED THE 99TH PERCENTILE OF cTnI DISTRIBUTION IN A REFERENCE POPULATION, HAS BEEN CONFIRMED THE DECISION THRESHOLD FOR ID DIAGNOSIS. 99TH PERCENTILE = 51.4 PG/ML NOTE: HIGH-SENSITIVITY TROPONIN ASSAY IS NOT INTENDED TO BE USED IN ISOLATION BUT SHOULD BE INTERPRETED IN CONJUNCTION WITH OTHER DIAGNOSTIC AND CLINICAL INFORMATION. Performing Lab:see [facility] LBVenous Blood Gas Reviewed date:11/07/2024 03:13:58 PM Interpretation: Performing Lab: Notes/Report: [facility] ,pH VBG7.4007.330-7.866OPY8 VBG41.940.0-52.0 mmHgPerforming Lab:see [facility] LBVitamin B12 Reviewed date:11/08/2024 05:26:51 PM Interpretation: Performing Lab: Notes/Report: [facility] ,Vitamin O75808622-1931 pg/mL Performed at: [facility] [id number] Leather Etcher: Brayan Pena PhD, Phone: [phone] Performing Lab:see [facility] LBECG 12 lead Reviewed date:11/07/2024 06:10:41 PM Interpretation: Performing Lab: Notes/Report: Source Facility: [place] [address] Electrocardiograph Report Signed Patient: ANDREIA THOMAS MR#: [id number] : 1965 Acct:[id number] Age/Sex: 59 / F ADM Date: 11/07/24 Loc: [place] 218-[address]: Kaitlyn Downing M.D. Ordering Physician: Chance Ware M.D. 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 Measurements Intervals [place] Rate: 80 P: 61 [place]: 132 QRS: 16 QRSD: 86 T: 38 QT: 404 QTc: 440 Interpretive Statements 1100 Sinus rhythm 8102 Low QRS voltage in chest leads Abnormal ECG No previous ECG available for comparison Electronically Signed On 11-07-2024 17:53:39 EDT by GONZALEZ BEVERLY M.D. Dictated By: GONZALEZ BEVERLY Signed By: 11/07/24 1753 DD/ 0939 TD/TT: Periodontist:CBC AUTO DIFF Reviewed date:11/08/2024 05:26:51 PM Interpretation: Performing Lab: Notes/Report: [facility] ,White Blood Count1.94.0-11.0 10 3/uLRed Blood Count1.254.20-5.40 10 6/uL Hemoglobin5.212.0-16.0 g/dLRESULTS CALLED TO JUANA HERNANDEZ RN at 2027 Bwpdbakaoq65.236.0-48.0 %RESULTS CALLED TO JUANA HERNANDEZ RN at 2027Mean Corpuscular Obddiz698.681.0-99.0 fLMean Corpuscular Okcvgwbqiq43.626.7-34.0 pg Mean Corpuscular HGB Conc34.229.9-35.2 g/dLRed Cell Distribution Width13.611.0- 15.0 %Platelet Kpkui18652-516 10 3/uLPerforming Lab:see noteML - [facility] LBManual Differential Reviewed date:11/08/2024 05:26:51 PM Interpretation: Performing Lab: Notes/Report: [facility] ,Segmented Neutrophils % Vlkqrh61.043.0-75.0Lymphocytes Percent Qqzusk93.020.5- 60.0 %Monocytes Percent Manual1.01.7-12.0 %Eosinophils Percent Manual0.00.9-7.0 %Basophils Percent Manual0.00.2-2.0 %Segmented Neut Absolute Manual0.891.4-6.5 10 3/uLLymphocytes Absolute Manual0.981.20-3.80 10 3/uLMonocytes Absolute Manual 0.010.30-0.80 10 3/uLEosinophils Absolute Manual0.000.00-0.70 10 3/uLBasophils Abs Manual0.000.00-0.10 10 3/uLMacrocytosis1+Schistocytes1+Performing Lab:see note - [facility] LBReticulocyte Pct Auto Reviewed date:11/08/2024 05:26:51 PM Interpretation: Performing Lab: Notes/Report: [facility] ,Reticulocyte Pct Auto1.310.60-3.10 %Performing Lab:see note - [facility] LBHaptoglobin Reviewed date:11/09/2024 09:02:01 PM Interpretation: Performing Lab: Notes/Report: [facility] ,Haptoglobin<1037-355 mg/dL Performed at: [address] [id number] Leather Etcher: Brayan Pena PhD, Phone: [employer]aster Performing Lab[facility] LBVitamin B12 Reviewed date:11/09/2024 09:02:01 PM Interpretation: Performing Lab: Notes/Report: [facility] ,Vitamin B33372924-0960 pg/mL Performed at: [address] [id number] Leather Etcher: Brayan Pena PhD, Phone: [phone] Performing Lab:[facility]PR[facility] LBAMMONIA Reviewed date:11/08/2024 05:26:51 PM Interpretation: Performing Lab: Notes/Report: [facility] ,Ixsqssy6163-96 umol/LPerforming Lab:see note - [facility] LB AMYLASE Reviewed date:11/08/2024 05:26:51 PM Interpretation: Performing Lab: Notes/Report: [facility] ,Akxrwyl9562-021 U/LPerforming Lab:see note - [facility] LBLACTATE or LACTIC ACID Reviewed date:11/08/2024 05:26:51 PM Interpretation: Performing Lab: Notes/Report: [facility] ,Lactate/Lactic Acid0.80.4-2.0 mmol/LPerforming Lab:see note - [facility] LBLIPASE Reviewed date:11/08/2024 05:26:51 PM Interpretation: Performing Lab: Notes/Report: [facility] ,Vaqcsg28.016.0-77.0 U/LPerforming Lab:see noteML - [facility] LBCA echo doppler complete Reviewed date:11/08/2024 05:26:51 PM Interpretation: Performing Lab: Notes/Report: Source Facility: [facility] [place] [address] [place] [address] Cardiology Report Signed Patient: ANDREIA THOMAS MR#: [id number] : 1965 Acct:[id number] Age/Sex: 59 / F ADM Date: 11/07/24 Loc: [place] 218-[address]: Kaitlyn Downing M.D. Ordering Physician: Kaitlyn Downing M.D. Date of Service: 11/07/24 Procedure(s): CA echo doppler complete Accession Number(s): [id number] cc: Kaitlyn Downing M.D. Patient Name: ANDREIA THOMAS MR#: [id number] : 1965 Exam Date: 11/07/2024 Ordering Doctor: [...] Signed By: 11/08/24 1149 DD/ 1148 TD/TT: Periodontist:PROF [place](COMP METB) Reviewed date:11/08/2024 05:26:51 PM Interpretation: Performing Lab: Notes/Report: [facility] ,Cjkbfx028567-479 mmol/LPotassium4.13.5-5.1 mmol/ZWmrhodsd27587-774 mmol/LCarbon Wcxfgry21.721.0-32.0 mmol/LAnion Gap11.4Gnjvcft82742-213 mg/dLBlood Urea Ppgkwgsl91.07.0-18.0 mg/dLCreatinine0.680.55-1.02 mg/dLEstimated GFR ( Mendy>60>=60 mL/min/1.73m 2Estimated GFR (Non- Radha>60>=60 mL/min/1.73m 2BUN Creatinine Ratio26.0Zptbsat8.18.5-10.1 mg/dLBilirubin Total1.30.2-1.0 mg/dL Aspartate Amino Ycnxqhuowht52648-93 U/LAlanine Sswvmfcgvjlfhvjc6006-51 U/L Alkaline Wviguxkwldj76530-845 U/LTotal Protein6.26.4-8.2 g/dLAlbumin Level3.6 3.4-5.0 g/dLGlobulin2.6Albumin Globulin Ratio1.4Performing Lab:see noteML - [facility] LBLAB TESTING Reviewed date:11/12/2024 10:59:29 PM Interpretation: Performing Lab: Notes/Report: [id number] IHEZLF74 ACTIVITY [facility] ,Miscellaneous TestCOMMENT. Test Ordered: [id number] RWLPVQ69 Activity CJWWFV47 Activity 92.0 % Reference Range: >66.8 This test was developed and its performance characteristics determined by [facility]. It has not been cleared or approved by the Food and Drug Administration. Comment Comment BN Reference Range: . Severe deficiency of MXRJFK36 (less than 10% activity) is a relatively specific finding in patients with a clinical diagnosis of either hereditary or acquired thrombotic thrombocytopenic purpura (TTP). Normal to moderately reduced BCDQHQ44 activity results do not exclude a diagnosis of TTP. Conditions that could have HCRRBK46 activity greater than 10% include hemolytic uremic syndrome (HUS), atypical hemolytic uremic syndrome (aHUS), and other thrombotic microangiopathies associated with hematopoietic stem cell and solid organ transplantation, liver disease, DIC, sepsis, , or effects of certain medications (eg, clopidogrel, cyclosporine, mitomycin C, quinine). Performed at: [address] [id number] Leather Etcher: Ana Cristina Torres MD, Phone: [phone] Performed at: [address] [id number] Leather Etcher: Brayan Pena PhD, Phone: [phone] Performing Lab:[facility] LBComp panel: Leukemia/Lymphoma Reviewed date:11/12/2024 10:59:29 PM Interpretation: Performing Lab: Notes/Report: [facility] ,Flow InterpretationComment. No significant immunophenotypic abnormality detected. B cell clonality could not be evaluated due to non specific staining, see comment. Flow CommentComment. Nonspecific light chain binding can sometimes be seen in the setting of increased serum proteins. Clinical correlation is recommended. Repeat testing may be useful. Clinical InformationComment. A recent CBC was not available for review at the time this report was prepared. Specimen TypeComment.Peripheral bloodAssessment of LeukocytesComment. [place] and lambda staining cannot be interpreted due to nonspecific light chain binding. There is no loss of, or aberrant expression of, the ramos T cell antigens to suggest a neoplastic T cell process. CD4:CD8 ratio 6.0 1% myeloblasts with normal phenotype are detected. Granulocytes show left-shifted maturation. ViabilityComment. 74% Cell viability in this sample is sufficient for analysis but is less than optimal. Analysis and Gating StrategyComment. 8 color analysis with CD45/SSC gating Technical-Analysis performed at [place] [address], [facility], [address], [place] [address], Director: Alon Altman, [facility], Phenotype ChartComment. CD2 Normal CD3 Normal CD4 Normal CD5 Normal CD7 Normal CD8 Normal CD10 Normal CD11b Normal CD13 Normal CD14 Normal CD16 Normal CD19 Normal CD20 Normal CD33 Normal CD34 Normal CD38 Normal CD45 Normal CD56 Normal CD57 Normal CD64 Normal CD117 Normal HLA-DR Normal KAPPA See Text LAMBDA See Text Resulting Path NameComment.Nivia Sotelo M.D.Comment:Comment. Each antibody in this assay was utilized to assess for potential abnormalities of studied cell populations or to characterize identified abnormalities. This test was developed and its performance characteristics determined by [facility]. It has not been cleared or approved by the U.S. Food and Drug Administration. The FDA has determined that such clearance or approval is not necessary. This test is used for clinical purposes. It should not be regarded as investigational or for research. Performed at: -Y - [facility] [place] [address] [facility], [place] [id number] Leather Etcher: Alon Altman [facility], Phone: [phone] Performed at: - [facility] [place] [address] [facility], [place] [id number] Leather Etcher: Alon Altman [facility], Phone: [phone] Performing Lab:see [facility]PR[facility] LBCBC AUTO DIFF Reviewed date:11/09/2024 09:02:01 PM Interpretation: Performing Lab: Notes/Report: [facility] ,White Blood Count3.24.0-11.0 10 3/uLRed Blood Count2.444.20-5.40 10 6/uL TEAR DROP 1+ DIMORPHIC POPULATION 2+ Hemoglobin8.712.0-16.0 g/nYOhsgzlpmtb19.836.0-48.0 %Mean Corpuscular Cyuaqq865.7 81.0-99.0 fLMACROCYTOSIS 2+Mean Corpuscular Bkelbjywjd63.726.7-34.0 pgMean Corpuscular HGB Conc33.729.9-35.2 g/dLRed Cell Distribution Width23.911.0-15.0 % ANISOCYTOSIS 3+Platelet Rvdqt63181-953 10 3/uLRESULTS CALLED TO KACY REYES RN at 0736Neutrophils Percent Auto43.343.0-75.0 %Lymphocytes Percent Auto45.3 20.5-60.0 %Monocytes Percent Auto7.91.7-12.0 %Eosinophils Percent Auto0.00.9-7.0 %Basophils Percent Auto0.30.2-2.0 %Immature Granulocytes Pct Auto3.20.0-0.5 % Neutrophils Absolute Auto1.41.4-6.5 10 3/uLLymphocytes Absolute Auto1.41.2-3.8 10 3/uLMonocytes Absolute Auto0.30.3-0.8 10 3/uLEosinophils Absolute Auto0.00.0- 0.7 10 3/uLBasophils Absolute Auto0.00.0-0.1 10 3/uLImmature Granulocytes Abs Auto0.100.00-0.03 10 3/uLPerforming Lab:see noteML - [facility] LBLDH Reviewed date:03/06/2025 02:43:31 PM Interpretation: Performing Lab: Notes/Report: [facility] ,Lactate Vpotfjcjmogvh09032-658 U/LPerforming Lab:see note - [facility] LBPROF 14(COMP METB) Reviewed date:03/06/2025 02:43:31 PM Interpretation: Performing Lab: Notes/Report: [facility] ,Pfdcmr049346-639 mmol/LPotassium4.33.5-5.1 mmol/DUqoyspbq20922-612 mmol/LCarbon Anzhclx66.821.0-32.0 mmol/LAnion Gap14.8Kqavxon91933-071 mg/dLBlood Urea Nitrogen9.07.0-18.0 mg/dLCreatinine0.600.55-1.02 mg/dLEstimated GFR ( Mendy>60>=60 mL/min/1.73m 2Estimated GFR (Non- Radha>60>=60 mL/min/1.73m 2BUN Creatinine Ratio15.3Cyaenou3.88.5-10.1 mg/dLBilirubin Total0.50.2-1.0 mg/dL Aspartate Amino Hssnwjvapcu6825-90 U/LAlanine Ngvtzttiuzfvhdny65273-16 U/L Alkaline Sazqwmlrpew35425-121 U/LTotal Protein7.36.4-8.2 g/dLAlbumin Level3.5 3.4-5.0 g/dLGlobulin3.8Albumin Globulin Ratio0.9Performing Lab:see noteML - [facility] LBAerobic Culture Reviewed date:04/28/2025 12:44:01 PM Interpretation: Performing Lab: Notes/Report: [facility] ,Aerobic CultureSee Below For Report Aerobic Culture Organism: Staphylococcus aureus : O:STAAUR Isolated Organism: 1.1 Antibiotic Interpretation ILIA Status Aerobic Culture*ABNORMAL* Aerobic Culture Organism: Staphylococcus aureus : O:STAAUR Isolated Organism: 1.1 Antibiotic Interpretation ILIA Status Aerobic CultureHeavy growth Aerobic Culture Organism: Staphylococcus aureus : O:STAAUR Isolated Organism: 1.1 Antibiotic Interpretation ILIA Status Aerobic CultureStaphylococcus aureus Aerobic Culture Organism: Staphylococcus aureus : O:STAAUR Isolated Organism: 1.1 Antibiotic Interpretation ILIA Status Aerobic CultureOrganism: Staphylococcus aureus : Aerobic Culture Organism: Staphylococcus aureus : O:STAAUR Isolated Organism: 1.1 Antibiotic Interpretation ILIA Status Aerobic Culture*ABNORMAL* Aerobic Culture Organism: Staphylococcus aureus : O:STAAUR Isolated Organism: 1.1 Antibiotic Interpretation ILIA Status Aerobic CultureBased on susceptibility to oxacillin this isolate would be Aerobic Culture Organism: Staphylococcus aureus : O:STAAUR Isolated Organism: 1.1 Antibiotic Interpretation ILIA Status Aerobic Culturesusceptible to: Aerobic Culture Organism: Staphylococcus aureus : O:STAAUR Isolated Organism: 1.1 Antibiotic Interpretation ILIA Status Aerobic Culture*Penicillinase-stable penicillins, such as: Aerobic Culture Organism: Staphylococcus aureus : O:STAAUR Isolated Organism: 1.1 Antibiotic Interpretation ILIA Status Aerobic CultureCloxacillin, Dicloxacillin, Nafcillin Aerobic Culture Organism: Staphylococcus aureus : O:STAAUR Isolated Organism: 1.1 Antibiotic Interpretation ILIA Status Aerobic Culture*Beta-lactam combination agents, such as: Aerobic Culture Organism: Staphylococcus aureus : O:STAAUR Isolated Organism: 1.1 Antibiotic Interpretation ILIA Status Aerobic CultureAmoxicillin-clavulanic acid, Ampicillin-sulbactam, Aerobic Culture Organism: Staphylococcus aureus : O:STAAUR Isolated Organism: 1.1 Antibiotic Interpretation ILIA Status Aerobic CulturePiperacillin-tazobactam Aerobic Culture Organism: Staphylococcus aureus : O:STAAUR Isolated Organism: 1.1 Antibiotic Interpretation ILIA Status Aerobic Culture*Oral cephems, such as: Aerobic Culture Organism: Staphylococcus aureus : O:STAAUR Isolated Organism: 1.1 Antibiotic Interpretation ILIA Status Aerobic CultureCefaclor, Cefdinir, Cefpodoxime, Cefprozil, Cefuroxime, Aerobic Culture Organism: Staphylococcus aureus : O:STAAUR Isolated Organism: 1.1 Antibiotic Interpretation ILIA Status Aerobic CultureCephalexin, Loracarbef Aerobic Culture Organism: Staphylococcus aureus : O:STAAUR Isolated Organism: 1.1 Antibiotic Interpretation ILIA Status Aerobic Culture*Parenteral cephems, such as: Aerobic Culture Organism: Staphylococcus aureus : O:STAAUR Isolated Organism: 1.1 Antibiotic Interpretation ILIA Status Aerobic CultureCefazolin, Cefepime, Cefotaxime, Cefotetan, Ceftaroline, Aerobic Culture Organism: Staphylococcus aureus : O:STAAUR Isolated Organism: 1.1 Antibiotic Interpretation ILIA Status Aerobic CultureCeftizoxime, Ceftriaxone, Cefuroxime Aerobic Culture Organism: Staphylococcus aureus : O:STAAUR Isolated Organism: 1.1 Antibiotic Interpretation ILIA Status Aerobic Culture*Carbapenems, such as: Aerobic Culture Organism: Staphylococcus aureus : O:STAAUR Isolated Organism: 1.1 Antibiotic Interpretation ILIA Status Aerobic CultureDoripenem, Ertapenem, Imipenem, Meropenem Aerobic Culture Organism: Staphylococcus aureus : O:STAAUR Isolated Organism: 1.1 Antibiotic Interpretation ILIA Status Aerobic CultureHeavy growth Aerobic Culture Organism: Staphylococcus aureus : O:STAAUR Isolated Organism: 1.1 Antibiotic Interpretation ILIA Status Aerobic CultureSee Below For Report Aerobic Culture Organism: Staphylococcus aureus : O:STAAUR Isolated Organism: 1.1 Antibiotic Interpretation ILIA Status Aerobic CulturePerformed at: - [facility] Aerobic Culture Organism: Staphylococcus aureus : O:STAAUR Isolated Organism: 1.1 Antibiotic Interpretation ILIA Status Aerobic [id number] [place], [place] [id number] Aerobic Culture Organism: Staphylococcus aureus : O:STAAUR Isolated Organism: 1.1 Antibiotic Interpretation ILIA Status Aerobic CultureLab Director: Brayan Pena PhD, Phone: [phone] Aerobic Culture Organism: Staphylococcus aureus : O:STAAUR Isolated Organism: 1.1 Antibiotic Interpretation ILIA Status Aerobic CultureSee Below For Report Aerobic Culture Organism: Staphylococcus aureus : O:STAAUR Isolated Organism: 1.1 Antibiotic Interpretation ILIA Status Aerobic CultureCiprofloxacin S F Aerobic Culture Organism: Staphylococcus aureus : O:STAAUR Isolated Organism: 1.1 Antibiotic Interpretation ILIA Status Aerobic CultureErythromycin R F Aerobic Culture Organism: Staphylococcus aureus : O:STAAUR Isolated Organism: 1.1 Antibiotic Interpretation ILIA Status Aerobic CultureGentamicin S F Aerobic Culture Organism: Staphylococcus aureus : O:STAAUR Isolated Organism: 1.1 Antibiotic Interpretation ILIA Status Aerobic CultureLevofloxacin S F Aerobic Culture Organism: Staphylococcus aureus : O:STAAUR Isolated Organism: 1.1 Antibiotic Interpretation ILIA Status Aerobic CultureLinezolid S F Aerobic Culture Organism: Staphylococcus aureus : O:STAAUR Isolated Organism: 1.1 Antibiotic Interpretation ILIA Status Aerobic CultureMoxifloxacin S F Aerobic Culture Organism: Staphylococcus aureus : O:STAAUR Isolated Organism: 1.1 Antibiotic Interpretation ILIA Status Aerobic CultureOxacillin S F Aerobic Culture Organism: Staphylococcus aureus : O:STAAUR Isolated Organism: 1.1 Antibiotic Interpretation ILIA Status Aerobic CulturePenicillin R F Aerobic Culture Organism: Staphylococcus aureus : O:STAAUR Isolated Organism: 1.1 Antibiotic Interpretation ILIA Status Aerobic CultureRifampin S F Aerobic Culture Organism: Staphylococcus aureus : O:STAAUR Isolated Organism: 1.1 Antibiotic Interpretation ILIA Status Aerobic CultureTetracycline S F Aerobic Culture Organism: Staphylococcus aureus : O:STAAUR Isolated Organism: 1.1 Antibiotic Interpretation ILIA Status Aerobic CultureTrimethoprim/Sulfamethoxazole S F Aerobic Culture Organism: Staphylococcus aureus : O:STAAUR Isolated Organism: 1.1 Antibiotic Interpretation ILIA Status Aerobic CultureVancomycin S F Aerobic Culture Organism: Staphylococcus aureus : O:STAAUR Isolated Organism: 1.1 Antibiotic Interpretation ILIA Status Aerobic CultureClindamycin R F Aerobic Culture Organism: Staphylococcus aureus : O:STAAUR Isolated Organism: 1.1 Antibiotic Interpretation ILIA Status Performing Lab:see note LC - [facility] LB SEE REPORT - [employer] Id information not found for 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 legend CBC AUTO DIFF Reviewed date:06/11/2025 01:11:21 PM Interpretation: Performing Lab: Notes/Report: [facility] ,White Blood Count7.34.0-11.0 10 3/uLRed Blood Count5.404.20-5.40 10 6/uL Ydacbhfqko88.312.0-16.0 g/yRWtchddggwc82.836.0-48.0 %Mean Corpuscular Mxwmiw61.7 81.0-99.0 fLMean Corpuscular Aabdpvclxp63.326.7-34.0 pgMean Corpuscular HGB Conc 32.729.9-35.2 g/dLRed Cell Distribution Width11.911.0-15.0 %Platelet Kozgi736 150-450 10 3/uLMean Platelet Qnhtal03.49.5-13.5 fLNeutrophils Percent Auto64.3 43.0-75.0 %Lymphocytes Percent Auto24.320.5-60.0 %Monocytes Percent Auto8.01.7- 12.0 %Eosinophils Percent Auto1.70.9-7.0 %Basophils Percent Auto0.60.2-2.0 % Immature Granulocytes Pct Auto1.10.0-0.5 %Neutrophils Absolute Auto4.71.4-6.5 10 3/uLLymphocytes Absolute Auto1.81.2-3.8 10 3/uLMonocytes Absolute Auto0.60.3- 0.8 10 3/uLEosinophils Absolute Auto0.10.0-0.7 10 3/uLBasophils Absolute Auto0.0 0.0-0.1 10 3/uLImmature Granulocytes Abs Auto0.080.00-0.03 10 3/uLPerforming Lab:see noteML - [facility] LBFREE T3 Reviewed date:06/11/2025 01:11:21 PM Interpretation: Performing Lab: Notes/Report: [facility] ,Free T33.092.18-3.98 pg/mLPerforming Lab:see noteML - [facility] LB PROF 14(COMP METB) Reviewed date:06/11/2025 01:11:21 PM Interpretation: Performing Lab: Notes/Report: [facility] ,Wupbpy481193-658 mmol/LPotassium3.83.5-5.1 mmol/AIbdntlgl31906-252 mmol/LCarbon Prwmglh66.821.0-32.0 mmol/LAnion Gap12.7Fxnxtty18612-634 mg/dLBlood Urea Wacnjpbu24.07.0-18.0 mg/dLCreatinine0.710.55-1.02 mg/dLEstimated GFR ( Mendy>60>=60 mL/min/1.73m 2Estimated GFR (Non- Radha>60>=60 mL/min/1.73m 2BUN Creatinine Ratio16.3Qzdotpy0.88.5-10.1 mg/dLBilirubin Total0.40.2-1.0 mg/dL Aspartate Amino Fphkcbehgsu4957-12 U/LAlanine Xfdkguphhudumtui3301-86 U/L Alkaline Tthjmzsnsts82665-405 U/LTotal Protein7.36.4-8.2 g/dLAlbumin Level3.4 3.4-5.0 g/dLGlobulin3.9Albumin Globulin Ratio0.9Performing Lab:see noteML - [facility] LBT4 Reviewed date:06/11/2025 01:11:21 PM Interpretation: Performing Lab: Notes/Report: [facility] ,T4 Cxtddwtut34.804.80-13.90 ug/dLPerforming Lab:see noteML - [facility] LBTSH Reviewed date:06/11/2025 01:11:21 PM Interpretation: Performing Lab: Notes/Report: [facility] ,Thyroid Stimulating Hormone0.1160.358-3.740 uIU/mLPerforming Lab:see noteML - [facility] LBAerobic Culture Reviewed date:04/30/2025 07:37:01 PM Interpretation: Performing Lab: Notes/Report: [facility] ,Aerobic CultureSee Below For Report Aerobic Culture Organism: Staphylococcus aureus : O:STAAUR Isolated Organism: 2.1 Antibiotic Interpretation ILIA Status Ciprofloxacin Ciprofloxacin S F Erythromycin Erythromycin R F Gentamicin Gentamicin S F Levofloxacin Levofloxacin S F Linezolid Linezolid S F Moxifloxacin Moxifloxacin S F Oxacillin Oxacillin S F Penicillin Penicillin R F Rifampin Rifampin S F Tetracycline Tetracycline S F Trimethoprim/Sulfamethoxazole Trimethoprim/Sulfamethoxazole S F Vancomycin Vancomycin S F Clindamycin Clindamycin R F Aerobic Culture*ABNORMAL* Aerobic Culture Organism: Staphylococcus aureus : O:STAAUR Isolated Organism: 2.1 Antibiotic Interpretation ILIA Status Ciprofloxacin Ciprofloxacin S F Erythromycin Erythromycin R F Gentamicin Gentamicin S F Levofloxacin Levofloxacin S F Linezolid Linezolid S F Moxifloxacin Moxifloxacin S F Oxacillin Oxacillin S F Penicillin Penicillin R F Rifampin Rifampin S F Tetracycline Tetracycline S F Trimethoprim/Sulfamethoxazole Trimethoprim/Sulfamethoxazole S F Vancomycin Vancomycin S F Clindamycin Clindamycin R F Aerobic CultureHeavy growth Aerobic Culture Organism: Staphylococcus aureus : O:STAAUR Isolated Organism: 2.1 Antibiotic Interpretation ILIA Status Ciprofloxacin Ciprofloxacin S F Erythromycin Erythromycin R F Gentamicin Gentamicin S F Levofloxacin Levofloxacin S F Linezolid Linezolid S F Moxifloxacin Moxifloxacin S F Oxacillin Oxacillin S F Penicillin Penicillin R F Rifampin Rifampin S F Tetracycline Tetracycline S F Trimethoprim/Sulfamethoxazole Trimethoprim/Sulfamethoxazole S F Vancomycin Vancomycin S F Clindamycin Clindamycin R F Aerobic CultureStaphylococcus aureus Aerobic Culture Organism: Staphylococcus aureus : O:STAAUR Isolated Organism: 2.1 Antibiotic Interpretation ILIA Status Ciprofloxacin Ciprofloxacin S F Erythromycin Erythromycin R F Gentamicin Gentamicin S F Levofloxacin Levofloxacin S F Linezolid Linezolid S F Moxifloxacin Moxifloxacin S F Oxacillin Oxacillin S F Penicillin Penicillin R F Rifampin Rifampin S F Tetracycline Tetracycline S F Trimethoprim/Sulfamethoxazole Trimethoprim/Sulfamethoxazole S F Vancomycin Vancomycin S F Clindamycin Clindamycin R F Aerobic CultureOrganism: Staphylococcus aureus : Aerobic Culture Organism: Staphylococcus aureus : O:STAAUR Isolated Organism: 2.1 Antibiotic Interpretation ILIA Status Ciprofloxacin Ciprofloxacin S F Erythromycin Erythromycin R F Gentamicin Gentamicin S F Levofloxacin Levofloxacin S F Linezolid Linezolid S F Moxifloxacin Moxifloxacin S F Oxacillin Oxacillin S F Penicillin Penicillin R F Rifampin Rifampin S F Tetracycline Tetracycline S F Trimethoprim/Sulfamethoxazole Trimethoprim/Sulfamethoxazole S F Vancomycin Vancomycin S F Clindamycin Clindamycin R F Aerobic Culture*ABNORMAL* Aerobic Culture Organism: Staphylococcus aureus : O:STAAUR Isolated Organism: 2.1 Antibiotic Interpretation ILIA Status Ciprofloxacin Ciprofloxacin S F Erythromycin Erythromycin R F Gentamicin Gentamicin S F Levofloxacin Levofloxacin S F Linezolid Linezolid S F Moxifloxacin Moxifloxacin S F Oxacillin Oxacillin S F Penicillin Penicillin R F Rifampin Rifampin S F Tetracycline Tetracycline S F Trimethoprim/Sulfamethoxazole Trimethoprim/Sulfamethoxazole S F Vancomycin Vancomycin S F Clindamycin Clindamycin R F Aerobic CultureBased on susceptibility to oxacillin this isolate would be Aerobic Culture Organism: Staphylococcus aureus : O:STAAUR Isolated Organism: 2.1 Antibiotic Interpretation ILIA Status Ciprofloxacin Ciprofloxacin S F Erythromycin Erythromycin R F Gentamicin Gentamicin S F Levofloxacin Levofloxacin S F Linezolid Linezolid S F Moxifloxacin Moxifloxacin S F Oxacillin Oxacillin S F Penicillin Penicillin R F Rifampin Rifampin S F Tetracycline Tetracycline S F Trimethoprim/Sulfamethoxazole Trimethoprim/Sulfamethoxazole S F Vancomycin Vancomycin S F Clindamycin Clindamycin R F Aerobic Culturesusceptible to: Aerobic Culture Organism: Staphylococcus aureus : O:STAAUR Isolated Organism: 2.1 Antibiotic Interpretation ILIA Status Ciprofloxacin Ciprofloxacin S F Erythromycin Erythromycin R F Gentamicin Gentamicin S F Levofloxacin Levofloxacin S F Linezolid Linezolid S F Moxifloxacin Moxifloxacin S F Oxacillin Oxacillin S F Penicillin Penicillin R F Rifampin Rifampin S F Tetracycline Tetracycline S F Trimethoprim/Sulfamethoxazole Trimethoprim/Sulfamethoxazole S F Vancomycin Vancomycin S F Clindamycin Clindamycin R F Aerobic Culture*Penicillinase-stable penicillins, such as: Aerobic Culture Organism: Staphylococcus aureus : O:STAAUR Isolated Organism: 2.1 Antibiotic Interpretation ILIA Status Ciprofloxacin Ciprofloxacin S F Erythromycin Erythromycin R F Gentamicin Gentamicin S F Levofloxacin Levofloxacin S F Linezolid Linezolid S F Moxifloxacin Moxifloxacin S F Oxacillin Oxacillin S F Penicillin Penicillin R F Rifampin Rifampin S F Tetracycline Tetracycline S F Trimethoprim/Sulfamethoxazole Trimethoprim/Sulfamethoxazole S F Vancomycin Vancomycin S F Clindamycin Clindamycin R F Aerobic CultureCloxacillin, Dicloxacillin, Nafcillin Aerobic Culture Organism: Staphylococcus aureus : O:STAAUR Isolated Organism: 2.1 Antibiotic Interpretation ILIA Status Ciprofloxacin Ciprofloxacin S F Erythromycin Erythromycin R F Gentamicin Gentamicin S F Levofloxacin Levofloxacin S F Linezolid Linezolid S F Moxifloxacin Moxifloxacin S F Oxacillin Oxacillin S F Penicillin Penicillin R F Rifampin Rifampin S F Tetracycline Tetracycline S F Trimethoprim/Sulfamethoxazole Trimethoprim/Sulfamethoxazole S F Vancomycin Vancomycin S F Clindamycin Clindamycin R F Aerobic Culture*Beta-lactam combination agents, such as: Aerobic Culture Organism: Staphylococcus aureus : O:STAAUR Isolated Organism: 2.1 Antibiotic Interpretation ILIA Status Ciprofloxacin Ciprofloxacin S F Erythromycin Erythromycin R F Gentamicin Gentamicin S F Levofloxacin Levofloxacin S F Linezolid Linezolid S F Moxifloxacin Moxifloxacin S F Oxacillin Oxacillin S F Penicillin Penicillin R F Rifampin Rifampin S F Tetracycline Tetracycline S F Trimethoprim/Sulfamethoxazole Trimethoprim/Sulfamethoxazole S F Vancomycin Vancomycin S F Clindamycin Clindamycin R F Aerobic CultureAmoxicillin-clavulanic acid, Ampicillin-sulbactam, Aerobic Culture Organism: Staphylococcus aureus : O:STAAUR Isolated Organism: 2.1 Antibiotic Interpretation ILIA Status Ciprofloxacin Ciprofloxacin S F Erythromycin Erythromycin R F Gentamicin Gentamicin S F Levofloxacin Levofloxacin S F Linezolid Linezolid S F Moxifloxacin Moxifloxacin S F Oxacillin Oxacillin S F Penicillin Penicillin R F Rifampin Rifampin S F Tetracycline Tetracycline S F Trimethoprim/Sulfamethoxazole Trimethoprim/Sulfamethoxazole S F Vancomycin Vancomycin S F Clindamycin Clindamycin R F Aerobic CulturePiperacillin-tazobactam Aerobic Culture Organism: Staphylococcus aureus : O:STAAUR Isolated Organism: 2.1 Antibiotic Interpretation ILIA Status Ciprofloxacin Ciprofloxacin S F Erythromycin Erythromycin R F Gentamicin Gentamicin S F Levofloxacin Levofloxacin S F Linezolid Linezolid S F Moxifloxacin Moxifloxacin S F Oxacillin Oxacillin S F Penicillin Penicillin R F Rifampin Rifampin S F Tetracycline Tetracycline S F Trimethoprim/Sulfamethoxazole Trimethoprim/Sulfamethoxazole S F Vancomycin Vancomycin S F Clindamycin Clindamycin R F Aerobic Culture*Oral cephems, such as: Aerobic Culture Organism: Staphylococcus aureus : O:STAAUR Isolated Organism: 2.1 Antibiotic Interpretation ILIA Status Ciprofloxacin Ciprofloxacin S F Erythromycin Erythromycin R F Gentamicin Gentamicin S F Levofloxacin Levofloxacin S F Linezolid Linezolid S F Moxifloxacin Moxifloxacin S F Oxacillin Oxacillin S F Penicillin Penicillin R F Rifampin Rifampin S F Tetracycline Tetracycline S F Trimethoprim/Sulfamethoxazole Trimethoprim/Sulfamethoxazole S F Vancomycin Vancomycin S F Clindamycin Clindamycin R F Aerobic CultureCefaclor, Cefdinir, Cefpodoxime, Cefprozil, Cefuroxime, Aerobic Culture Organism: Staphylococcus aureus : O:STAAUR Isolated Organism: 2.1 Antibiotic Interpretation ILIA Status Ciprofloxacin Ciprofloxacin S F Erythromycin Erythromycin R F Gentamicin Gentamicin S F Levofloxacin Levofloxacin S F Linezolid Linezolid S F Moxifloxacin Moxifloxacin S F Oxacillin Oxacillin S F Penicillin Penicillin R F Rifampin Rifampin S F Tetracycline Tetracycline S F Trimethoprim/Sulfamethoxazole Trimethoprim/Sulfamethoxazole S F Vancomycin Vancomycin S F Clindamycin Clindamycin R F Aerobic CultureCephalexin, Loracarbef Aerobic Culture Organism: Staphylococcus aureus : O:STAAUR Isolated Organism: 2.1 Antibiotic Interpretation ILIA Status Ciprofloxacin Ciprofloxacin S F Erythromycin Erythromycin R F Gentamicin Gentamicin S F Levofloxacin Levofloxacin S F Linezolid Linezolid S F Moxifloxacin Moxifloxacin S F Oxacillin Oxacillin S F Penicillin Penicillin R F Rifampin Rifampin S F Tetracycline Tetracycline S F Trimethoprim/Sulfamethoxazole Trimethoprim/Sulfamethoxazole S F Vancomycin Vancomycin S F Clindamycin Clindamycin R F Aerobic Culture*Parenteral cephems, such as: Aerobic Culture Organism: Staphylococcus aureus : O:STAAUR Isolated Organism: 2.1 Antibiotic Interpretation ILIA Status Ciprofloxacin Ciprofloxacin S F Erythromycin Erythromycin R F Gentamicin Gentamicin S F Levofloxacin Levofloxacin S F Linezolid Linezolid S F Moxifloxacin Moxifloxacin S F Oxacillin Oxacillin S F Penicillin Penicillin R F Rifampin Rifampin S F Tetracycline Tetracycline S F Trimethoprim/Sulfamethoxazole Trimethoprim/Sulfamethoxazole S F Vancomycin Vancomycin S F Clindamycin Clindamycin R F Aerobic CultureCefazolin, Cefepime, Cefotaxime, Cefotetan, Ceftaroline, Aerobic Culture Organism: Staphylococcus aureus : O:STAAUR Isolated Organism: 2.1 Antibiotic Interpretation ILIA Status Ciprofloxacin Ciprofloxacin S F Erythromycin Erythromycin R F Gentamicin Gentamicin S F Levofloxacin Levofloxacin S F Linezolid Linezolid S F Moxifloxacin Moxifloxacin S F Oxacillin Oxacillin S F Penicillin Penicillin R F Rifampin Rifampin S F Tetracycline Tetracycline S F Trimethoprim/Sulfamethoxazole Trimethoprim/Sulfamethoxazole S F Vancomycin Vancomycin S F Clindamycin Clindamycin R F Aerobic CultureCeftizoxime, Ceftriaxone, Cefuroxime Aerobic Culture Organism: Staphylococcus aureus : O:STAAUR Isolated Organism: 2.1 Antibiotic Interpretation ILIA Status Ciprofloxacin Ciprofloxacin S F Erythromycin Erythromycin R F Gentamicin Gentamicin S F Levofloxacin Levofloxacin S F Linezolid Linezolid S F Moxifloxacin Moxifloxacin S F Oxacillin Oxacillin S F Penicillin Penicillin R F Rifampin Rifampin S F Tetracycline Tetracycline S F Trimethoprim/Sulfamethoxazole Trimethoprim/Sulfamethoxazole S F Vancomycin Vancomycin S F Clindamycin Clindamycin R F Aerobic Culture*Carbapenems, such as: Aerobic Culture Organism: Staphylococcus aureus : O:STAAUR Isolated Organism: 2.1 Antibiotic Interpretation ILIA Status Ciprofloxacin Ciprofloxacin S F Erythromycin Erythromycin R F Gentamicin Gentamicin S F Levofloxacin Levofloxacin S F Linezolid Linezolid S F Moxifloxacin Moxifloxacin S F Oxacillin Oxacillin S F Penicillin Penicillin R F Rifampin Rifampin S F Tetracycline Tetracycline S F Trimethoprim/Sulfamethoxazole Trimethoprim/Sulfamethoxazole S F Vancomycin Vancomycin S F Clindamycin Clindamycin R F Aerobic CultureDoripenem, Ertapenem, Imipenem, Meropenem Aerobic Culture Organism: Staphylococcus aureus : O:STAAUR Isolated Organism: 2.1 Antibiotic Interpretation ILIA Status Ciprofloxacin Ciprofloxacin S F Erythromycin Erythromycin R F Gentamicin Gentamicin S F Levofloxacin Levofloxacin S F Linezolid Linezolid S F Moxifloxacin Moxifloxacin S F Oxacillin Oxacillin S F Penicillin Penicillin R F Rifampin Rifampin S F Tetracycline Tetracycline S F Trimethoprim/Sulfamethoxazole Trimethoprim/Sulfamethoxazole S F Vancomycin Vancomycin S F Clindamycin Clindamycin R F Aerobic CultureHeavy growth Aerobic Culture Organism: Staphylococcus aureus : O:STAAUR Isolated Organism: 2.1 Antibiotic Interpretation ILIA Status Ciprofloxacin Ciprofloxacin S F Erythromycin Erythromycin R F Gentamicin Gentamicin S F Levofloxacin Levofloxacin S F Linezolid Linezolid S F Moxifloxacin Moxifloxacin S F Oxacillin Oxacillin S F Penicillin Penicillin R F Rifampin Rifampin S F Tetracycline Tetracycline S F Trimethoprim/Sulfamethoxazole Trimethoprim/Sulfamethoxazole S F Vancomycin Vancomycin S F Clindamycin Clindamycin R F Aerobic CultureSee Below For Report Aerobic Culture Organism: Staphylococcus aureus : O:STAAUR Isolated Organism: 2.1 Antibiotic Interpretation ILIA Status Ciprofloxacin Ciprofloxacin S F Erythromycin Erythromycin R F Gentamicin Gentamicin S F Levofloxacin Levofloxacin S F Linezolid Linezolid S F Moxifloxacin Moxifloxacin S F Oxacillin Oxacillin S F Penicillin Penicillin R F Rifampin Rifampin S F Tetracycline Tetracycline S F Trimethoprim/Sulfamethoxazole Trimethoprim/Sulfamethoxazole S F Vancomycin Vancomycin S F Clindamycin Clindamycin R F Aerobic CulturePerformed at: [facility] Aerobic Culture Organism: Staphylococcus aureus : O:STAAUR Isolated Organism: 2.1 Antibiotic Interpretation ILIA Status Ciprofloxacin Ciprofloxacin S F Erythromycin Erythromycin R F Gentamicin Gentamicin S F Levofloxacin Levofloxacin S F Linezolid Linezolid S F Moxifloxacin Moxifloxacin S F Oxacillin Oxacillin S F Penicillin Penicillin R F Rifampin Rifampin S F Tetracycline Tetracycline S F Trimethoprim/Sulfamethoxazole Trimethoprim/Sulfamethoxazole S F Vancomycin Vancomycin S F Clindamycin Clindamycin R F Aerobic [id number] [place] [address] [id number] Aerobic Culture Organism: Staphylococcus aureus : O:STAAUR Isolated Organism: 2.1 Antibiotic Interpretation ILIA Status Ciprofloxacin Ciprofloxacin S F Erythromycin Erythromycin R F Gentamicin Gentamicin S F Levofloxacin Levofloxacin S F Linezolid Linezolid S F Moxifloxacin Moxifloxacin S F Oxacillin Oxacillin S F Penicillin Penicillin R F Rifampin Rifampin S F Tetracycline Tetracycline S F Trimethoprim/Sulfamethoxazole Trimethoprim/Sulfamethoxazole S F Vancomycin Vancomycin S F Clindamycin Clindamycin R F Aerobic CultureLab Director: Brayan Pena PhD, Phone: [phone] Aerobic Culture Organism: Staphylococcus aureus : O:STAAUR Isolated Organism: 2.1 Antibiotic Interpretation ILIA Status Ciprofloxacin Ciprofloxacin S F Erythromycin Erythromycin R F Gentamicin Gentamicin S F Levofloxacin Levofloxacin S F Linezolid Linezolid S F Moxifloxacin Moxifloxacin S F Oxacillin Oxacillin S F Penicillin Penicillin R F Rifampin Rifampin S F Tetracycline Tetracycline S F Trimethoprim/Sulfamethoxazole Trimethoprim/Sulfamethoxazole S F Vancomycin Vancomycin S F Clindamycin Clindamycin R F Aerobic CultureSee Below For Report Aerobic Culture Organism: Staphylococcus aureus : O:STAAUR Isolated Organism: 2.1 Antibiotic Interpretation ILIA Status Ciprofloxacin Ciprofloxacin S F Erythromycin Erythromycin R F Gentamicin Gentamicin S F Levofloxacin Levofloxacin S F Linezolid Linezolid S F Moxifloxacin Moxifloxacin S F Oxacillin Oxacillin S F Penicillin Penicillin R F Rifampin Rifampin S F Tetracycline Tetracycline S F Trimethoprim/Sulfamethoxazole Trimethoprim/Sulfamethoxazole S F Vancomycin Vancomycin S F Clindamycin Clindamycin R F Aerobic CultureSee Below For Report Aerobic Culture Organism: Staphylococcus aureus : O:STAAUR Isolated Organism: 2.1 Antibiotic Interpretation ILIA Status Ciprofloxacin Ciprofloxacin S F Erythromycin Erythromycin R F Gentamicin Gentamicin S F Levofloxacin Levofloxacin S F Linezolid Linezolid S F Moxifloxacin Moxifloxacin S F Oxacillin Oxacillin S F Penicillin Penicillin R F Rifampin Rifampin S F Tetracycline Tetracycline S F Trimethoprim/Sulfamethoxazole Trimethoprim/Sulfamethoxazole S F Vancomycin Vancomycin S F Clindamycin Clindamycin R F Aerobic CultureSee Below For Report Aerobic Culture Organism: Staphylococcus aureus : O:STAAUR Isolated Organism: 2.1 Antibiotic Interpretation ILIA Status Ciprofloxacin Ciprofloxacin S F Erythromycin Erythromycin R F Gentamicin Gentamicin S F Levofloxacin Levofloxacin S F Linezolid Linezolid S F Moxifloxacin Moxifloxacin S F Oxacillin Oxacillin S F Penicillin Penicillin R F Rifampin Rifampin S F Tetracycline Tetracycline S F Trimethoprim/Sulfamethoxazole Trimethoprim/Sulfamethoxazole S F Vancomycin Vancomycin S F Clindamycin Clindamycin R F Aerobic CultureSee Below For Report Aerobic Culture Organism: Staphylococcus aureus : O:STAAUR Isolated Organism: 2.1 Antibiotic Interpretation ILIA Status Ciprofloxacin Ciprofloxacin S F Erythromycin Erythromycin R F Gentamicin Gentamicin S F Levofloxacin Levofloxacin S F Linezolid Linezolid S F Moxifloxacin Moxifloxacin S F Oxacillin Oxacillin S F Penicillin Penicillin R F Rifampin Rifampin S F Tetracycline Tetracycline S F Trimethoprim/Sulfamethoxazole Trimethoprim/Sulfamethoxazole S F Vancomycin Vancomycin S F Clindamycin Clindamycin R F Aerobic CultureSee Below For Report Aerobic Culture Organism: Staphylococcus aureus : O:STAAUR Isolated Organism: 2.1 Antibiotic Interpretation ILIA Status Ciprofloxacin Ciprofloxacin S F Erythromycin Erythromycin R F Gentamicin Gentamicin S F Levofloxacin Levofloxacin S F Linezolid Linezolid S F Moxifloxacin Moxifloxacin S F Oxacillin Oxacillin S F Penicillin Penicillin R F Rifampin Rifampin S F Tetracycline Tetracycline S F Trimethoprim/Sulfamethoxazole Trimethoprim/Sulfamethoxazole S F Vancomycin Vancomycin S F Clindamycin Clindamycin R F Aerobic CultureSee Below For Report Aerobic Culture Organism: Staphylococcus aureus : O:STAAUR Isolated Organism: 2.1 Antibiotic Interpretation ILIA Status Ciprofloxacin Ciprofloxacin S F Erythromycin Erythromycin R F Gentamicin Gentamicin S F Levofloxacin Levofloxacin S F Linezolid Linezolid S F Moxifloxacin Moxifloxacin S F Oxacillin Oxacillin S F Penicillin Penicillin R F Rifampin Rifampin S F Tetracycline Tetracycline S F Trimethoprim/Sulfamethoxazole Trimethoprim/Sulfamethoxazole S F Vancomycin Vancomycin S F Clindamycin Clindamycin R F Aerobic CultureSee Below For Report Aerobic Culture Organism: Staphylococcus aureus : O:STAAUR Isolated Organism: 2.1 Antibiotic Interpretation ILIA Status Ciprofloxacin Ciprofloxacin S F Erythromycin Erythromycin R F Gentamicin Gentamicin S F Levofloxacin Levofloxacin S F Linezolid Linezolid S F Moxifloxacin Moxifloxacin S F Oxacillin Oxacillin S F Penicillin Penicillin R F Rifampin Rifampin S F Tetracycline Tetracycline S F Trimethoprim/Sulfamethoxazole Trimethoprim/Sulfamethoxazole S F Vancomycin Vancomycin S F Clindamycin Clindamycin R F Aerobic CultureSee Below For Report Aerobic Culture Organism: Staphylococcus aureus : O:STAAUR Isolated Organism: 2.1 Antibiotic Interpretation ILIA Status Ciprofloxacin Ciprofloxacin S F Erythromycin Erythromycin R F Gentamicin Gentamicin S F Levofloxacin Levofloxacin S F Linezolid Linezolid S F Moxifloxacin Moxifloxacin S F Oxacillin Oxacillin S F Penicillin Penicillin R F Rifampin Rifampin S F Tetracycline Tetracycline S F Trimethoprim/Sulfamethoxazole Trimethoprim/Sulfamethoxazole S F Vancomycin Vancomycin S F Clindamycin Clindamycin R F Aerobic CultureSee Below For Report Aerobic Culture Organism: Staphylococcus aureus : O:STAAUR Isolated Organism: 2.1 Antibiotic Interpretation ILIA Status Ciprofloxacin Ciprofloxacin S F Erythromycin Erythromycin R F Gentamicin Gentamicin S F Levofloxacin Levofloxacin S F Linezolid Linezolid S F Moxifloxacin Moxifloxacin S F Oxacillin Oxacillin S F Penicillin Penicillin R F Rifampin Rifampin S F Tetracycline Tetracycline S F Trimethoprim/Sulfamethoxazole Trimethoprim/Sulfamethoxazole S F Vancomycin Vancomycin S F Clindamycin Clindamycin R F Aerobic CultureSee Below For Report Aerobic Culture Organism: Staphylococcus aureus : O:STAAUR Isolated Organism: 2.1 Antibiotic Interpretation ILIA Status Ciprofloxacin Ciprofloxacin S F Erythromycin Erythromycin R F Gentamicin Gentamicin S F Levofloxacin Levofloxacin S F Linezolid Linezolid S F Moxifloxacin Moxifloxacin S F Oxacillin Oxacillin S F Penicillin Penicillin R F Rifampin Rifampin S F Tetracycline Tetracycline S F Trimethoprim/Sulfamethoxazole Trimethoprim/Sulfamethoxazole S F Vancomycin Vancomycin S F Clindamycin Clindamycin R F Aerobic CultureSee Below For Report Aerobic Culture Organism: Staphylococcus aureus : O:STAAUR Isolated Organism: 2.1 Antibiotic Interpretation ILIA Status Ciprofloxacin Ciprofloxacin S F Erythromycin Erythromycin R F Gentamicin Gentamicin S F Levofloxacin Levofloxacin S F Linezolid Linezolid S F Moxifloxacin Moxifloxacin S F Oxacillin Oxacillin S F Penicillin Penicillin R F Rifampin Rifampin S F Tetracycline Tetracycline S F Trimethoprim/Sulfamethoxazole Trimethoprim/Sulfamethoxazole S F Vancomycin Vancomycin S F Clindamycin Clindamycin R F Aerobic CultureSee Below For Report Aerobic Culture Organism: Staphylococcus aureus : O:STAAUR Isolated Organism: 2.1 Antibiotic Interpretation ILIA Status Ciprofloxacin Ciprofloxacin S F Erythromycin Erythromycin R F Gentamicin Gentamicin S F Levofloxacin Levofloxacin S F Linezolid Linezolid S F Moxifloxacin Moxifloxacin S F Oxacillin Oxacillin S F Penicillin Penicillin R F Rifampin Rifampin S F Tetracycline Tetracycline S F Trimethoprim/Sulfamethoxazole Trimethoprim/Sulfamethoxazole S F Vancomycin Vancomycin S F Clindamycin Clindamycin R F Aerobic CultureSee Below For Report Aerobic Culture Organism: Staphylococcus aureus : O:STAAUR Isolated Organism: 2.1 Antibiotic Interpretation ILIA Status Ciprofloxacin Ciprofloxacin S F Erythromycin Erythromycin R F Gentamicin Gentamicin S F Levofloxacin Levofloxacin S F Linezolid Linezolid S F Moxifloxacin Moxifloxacin S F Oxacillin Oxacillin S F Penicillin Penicillin R F Rifampin Rifampin S F Tetracycline Tetracycline S F Trimethoprim/Sulfamethoxazole Trimethoprim/Sulfamethoxazole S F Vancomycin Vancomycin S F Clindamycin Clindamycin R F Aerobic CultureSee Below For Report Aerobic Culture Organism: Staphylococcus aureus : O:STAAUR Isolated Organism: 2.1 Antibiotic Interpretation ILIA Status Ciprofloxacin Ciprofloxacin S F Erythromycin Erythromycin R F Gentamicin Gentamicin S F Levofloxacin Levofloxacin S F Linezolid Linezolid S F Moxifloxacin Moxifloxacin S F Oxacillin Oxacillin S F Penicillin Penicillin R F Rifampin Rifampin S F Tetracycline Tetracycline S F Trimethoprim/Sulfamethoxazole Trimethoprim/Sulfamethoxazole S F Vancomycin Vancomycin S F Clindamycin Clindamycin R F Performing Lab:see note LC - [facility] LB SEE REPORT - [employer] Id information not found for 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 legend Anaerobic Culture Reviewed date:04/30/2025 07:37:01 PM Interpretation: Performing Lab: Notes/Report: [facility] ,Anaerobic CultureSee Below For Report Anaerobic Culture Anaerobic CultureNo anaerobic growth in 72 hours. Anaerobic Culture Performing Lab:see noteLC - [facility] LBCBC AUTO DIFF Reviewed date:03/06/2025 02:43:31 PM Interpretation: Performing Lab: Notes/Report: [facility] ,White Blood Count7.24.0-11.0 10 3/uLRed Blood Count5.494.20-5.40 10 6/uL Iodwclamhp38.112.0-16.0 g/gPWqzxccmisf73.036.0-48.0 %Mean Corpuscular Swodxs60.0 81.0-99.0 fLMean Corpuscular Lnarvbgdmk90.526.7-34.0 pgMean Corpuscular HGB Conc 33.629.9-35.2 g/dLRed Cell Distribution Width13.311.0-15.0 %Platelet Mtvkq107 150-450 10 3/uLMean Platelet Llorwa51.49.5-13.5 fLNeutrophils Percent Auto67.4 43.0-75.0 %Lymphocytes Percent Auto19.820.5-60.0 %Monocytes Percent Auto8.21.7- 12.0 %Eosinophils Percent Auto1.80.9-7.0 %Basophils Percent Auto1.10.2-2.0 % Immature Granulocytes Pct Auto1.70.0-0.5 %Neutrophils Absolute Auto4.91.4-6.5 10 3/uLLymphocytes Absolute Auto1.41.2-3.8 10 3/uLMonocytes Absolute Auto0.60.3- 0.8 10 3/uLEosinophils Absolute Auto0.10.0-0.7 10 3/uLBasophils Absolute Auto0.1 0.0-0.1 10 3/uLImmature Granulocytes Abs Auto0.120.00-0.03 10 3/uLPerforming Lab:see noteML - [facility] LBManual Differential Reviewed date:11/18/2024 12:00:18 PM Interpretation: Performing Lab: Notes/Report: [facility] ,Segmented Neutrophils % Pqieza84.043.0-75.0Band Neutrophils %1.00-5 % Lymphocytes Percent Kpubip43.020.5-60.0 %Monocytes Percent Manual5.01.7-12.0 % Eosinophils Percent Manual3.00.9-7.0 %Basophils Percent Manual0.00.2-2.0 % Segmented Neut Absolute Manual4.391.4-6.5 10 3/uLBand Neutrophils Absolute0.1 0.0-0.3 10 3/uLLymphocytes Absolute Manual1.151.20-3.80 10 3/uLMonocytes Absolute Manual0.300.30-0.80 10 3/uLEosinophils Absolute Manual0.180.00-0.70 10 3/uLBasophils Abs Manual0.000.00-0.10 10 3/uLPolychromasia1+Anisocytosis2+ Macrocytosis2+Ovalocytes1+Performing Lab:see noteML - [facility] LB PROF CHEM 8 (BAS METB) Reviewed date:11/18/2024 12:00:18 PM Interpretation: Performing Lab: Notes/Report: [facility] ,Iecwlp393389-595 mmol/LPotassium3.63.5-5.1 mmol/KJushalgd35919-026 mmol/LCarbon Txzabdw89.521.0-32.0 mmol/LAnion Gap13.0Bgonbph43479-363 mg/dLBlood Urea Nitrogen9.07.0-18.0 mg/dLCreatinine0.490.55-1.02 mg/dLEstimated GFR ( Mendy>60>=60 mL/min/1.73m 2Estimated GFR (Non- Radha>60>=60 mL/min/1.73m 2BUN Creatinine Ratio18.8Ycmfmzv1.78.5-10.1 mg/dLPerforming Lab:see noteML - [facility] LBCBC AUTO DIFF Reviewed date:11/18/2024 12:00:18 PM Interpretation: Performing Lab: Notes/Report: [facility] ,White Blood Count6.14.0-11.0 10 3/uLRed Blood Count3.154.20-5.40 10 6/uL Hqvbemldxe98.312.0-16.0 g/nZVsrbyjphht23.336.0-48.0 %Mean Corpuscular Volume 105.781.0-99.0 fLMean Corpuscular Ezkmifvvra00.726.7-34.0 pgMean Corpuscular HGB Conc30.929.9-35.2 g/dLRed Cell Distribution Width19.111.0-15.0 %Platelet Count 753025-632 10 3/uLMean Platelet Volume9.79.5-13.5 fLPerforming Lab:see noteML - [facility] LBProthrombin Time INR Reviewed date:11/09/2024 09:02:01 PM Interpretation: Performing Lab: Notes/Report: [facility] ,Prothrombin Time11.99.0-11.6 secINR1.14 DESIRED INR: 2.0-3.0 CONDITIONS NOT LISTED BELOW 2.5-3.5 FOR PROSTHETIC HEART VALVE REPLACEMENT 2.5-3.5 RECURRENT THROMBOSIS Performing Lab:see note - [facility] LBPROF 14(COMP METB) Reviewed date:11/09/2024 09:02:01 PM Interpretation: Performing Lab: Notes/Report: [facility] ,Mvvduh708508-245 mmol/LPotassium3.23.5-5.1 mmol/WJdromoek22293-676 mmol/LCarbon Qwdqvtk19.121.0-32.0 mmol/LAnion Gap11.6Nrnkdgc72980-811 mg/dLBlood Urea Yphoeayp73.07.0-18.0 mg/dLCreatinine0.810.55-1.02 mg/dLEstimated GFR ( Mendy>60>=60 mL/min/1.73m 2Estimated GFR (Non- Radha>60>=60 mL/min/1.73m 2BUN Creatinine Ratio29.8Mtkpzyc7.48.5-10.1 mg/dLBilirubin Total1.20.2-1.0 mg/dL Aspartate Amino Rbulxzykqoe9216-16 U/LAlanine Qyuoyiyawcmgvvxj6964-80 U/L Alkaline Bjznpaepidl00012-463 U/LTotal Protein6.26.4-8.2 g/dLAlbumin Level3.7 3.4-5.0 g/dLGlobulin2.5Albumin Globulin Ratio1.5Performing Lab:see note - [facility] LBAMMONIA Reviewed date:11/09/2024 09:02:01 PM Interpretation: Performing Lab: Notes/Report: [facility] ,Zdslbao0100-87 umol/LPerforming Lab:see noteML - [facility] LBCBC AUTO DIFF Reviewed date:11/08/2024 05:26:51 PM Interpretation: Performing Lab: Notes/Report: [facility] ,White Blood Count2.04.0-11.0 10 3/uLRed Blood Count2.374.20-5.40 10 6/uL Hemoglobin8.412.0-16.0 g/mUIrcdxlawfn39.436.0-48.0 %Mean Corpuscular Jxwodu531.0 81.0-99.0 fLMean Corpuscular Pheefmerfn73.426.7-34.0 pgMean Corpuscular HGB Conc 34.429.9-35.2 g/dLPlatelet Sroxe58080-358 10 3/uLNeutrophils Percent Auto56.8 43.0-75.0 %Lymphocytes Percent Auto32.220.5-60.0 %Monocytes Percent Auto4.01.7- 12.0 %Eosinophils Percent Auto0.00.9-7.0 %Basophils Percent Auto0.50.2-2.0 % Immature Granulocytes Pct Auto6.50.0-0.5 %Neutrophils Absolute Auto1.11.4-6.5 10 3/uLLymphocytes Absolute Auto0.61.2-3.8 10 3/uLMonocytes Absolute Auto0.10.3- 0.8 10 3/uLEosinophils Absolute Auto0.00.0-0.7 10 3/uLBasophils Absolute Auto0.0 0.0-0.1 10 3/uLImmature Granulocytes Abs Auto0.130.00-0.03 10 3/uLPerforming Lab:see noteML - [facility] LBManual Differential Reviewed date:11/08/2024 05:26:51 PM Interpretation: Performing Lab: Notes/Report: [facility] ,Segmented Neutrophils % Mjdgma91.043.0-75.0Lymphocytes Percent Pvlyfa77.020.5- 60.0 %Monocytes Percent Manual6.01.7-12.0 %Eosinophils Percent Manual0.00.9-7.0 %Basophils Percent Manual0.00.2-2.0 %Segmented Neut Absolute Manual1.281.4-6.5 10 3/uLLymphocytes Absolute Manual0.601.20-3.80 10 3/uLMonocytes Absolute Manual 0.120.30-0.80 10 3/uLEosinophils Absolute Manual0.000.00-0.70 10 3/uLBasophils Abs Manual0.000.00-0.10 10 3/uLAnisocytosis1+Macrocytosis1+Performing Lab:see noteML - [facility] LBProthrombin Time INR Reviewed date:11/08/2024 05:26:51 PM Interpretation: Performing Lab: Notes/Report: [facility] ,Prothrombin Time12.49.0-11.6 secINR1.19 DESIRED INR: 2.0-3.0 CONDITIONS NOT LISTED BELOW 2.5-3.5 FOR PROSTHETIC HEART VALVE REPLACEMENT 2.5-3.5 RECURRENT THROMBOSIS Performing Lab:see noteML - [facility] LBPROF 14(COMP METB) Reviewed date:11/08/2024 05:26:51 PM Interpretation: Performing Lab: Notes/Report: [facility] ,Vrnytc440052-972 mmol/LPotassium3.83.5-5.1 mmol/PWcrscrax73745-602 mmol/LCarbon Wjulzdr01.821.0-32.0 mmol/LAnion Gap13.9Cgasjxc96283-727 mg/dLBlood Urea Pxkyzieu59.07.0-18.0 mg/dLCreatinine0.640.55-1.02 mg/dLEstimated GFR ( Mendy>60>=60 mL/min/1.73m 2Estimated GFR (Non- Radha>60>=60 mL/min/1.73m 2BUN Creatinine Ratio26.6Ulcwcxu2.98.5-10.1 mg/dLBilirubin Total1.60.2-1.0 mg/dL Aspartate Amino Krpklchqyoz84655-56 U/LAlanine Afyauwdbeairwpgn5710-00 U/L Alkaline Buxlgzxackq35940-727 U/LTotal Protein6.36.4-8.2 g/dLAlbumin Level3.7 3.4-5.0 g/dLGlobulin2.6Albumin Globulin Ratio1.4Performing Lab:see noteML - [facility] LBCBC AUTO DIFF Reviewed date:11/08/2024 05:26:51 PM Interpretation: Performing Lab: Notes/Report: [facility] ,White Blood Count2.04.0-11.0 10 3/uLRed Blood Count2.354.20-5.40 10 6/uL Hemoglobin8.512.0-16.0 g/sJQrlozkucwa93.436.0-48.0 %Mean Corpuscular Gyqmmu846.8 81.0-99.0 fLMean Corpuscular Eiypotdvqw80.226.7-34.0 pgMean Corpuscular HGB Conc 34.829.9-35.2 g/dLPlatelet Ypzjk29242-994 10 3/uLPerforming Lab:see note - [facility] LBBilirubin Total Reviewed date:11/08/2024 05:26:51 PM Interpretation: Performing Lab: Notes/Report: [facility] ,Bilirubin Total1.30.2-1.0 mg/dLPerforming Lab:see note - [facility] LBIRON AND TIBC Reviewed date:11/08/2024 05:26:51 PM Interpretation: Performing Lab: Notes/Report: [facility] ,Iron95.050.0-170.0 ug/dLTotal Iron Binding Pcznkbfc778.0250.0-450.0 ug/dL Percent Iron Pneonataom17.4Performing Lab:see note - [facility] LB FOLATE Reviewed date:11/08/2024 05:26:51 PM Interpretation: Performing Lab: Notes/Report: [facility] ,Ahkqsb24.308.60-58.90 ng/mLPerforming Lab:see note - [facility] LB FERRITIN Reviewed date:11/08/2024 05:26:51 PM Interpretation: Performing Lab: Notes/Report: [facility] ,Qskwzgir519.08.0-252.0 ng/mLPerforming Lab:see note - [facility] LBBILIRUBIN CONJUGATED (DIRECT) Reviewed date:11/08/2024 05:26:51 PM Interpretation: Performing Lab: Notes/Report: [facility] ,Bilirubin Direct0.30.0-0.2 mg/dLPerforming Lab:see noteML - [facility] LBUrine Culture - [facility] Reviewed date:11/09/2024 09:02:01 PM Interpretation: Performing Lab: Notes/Report: [facility] ,Urine Culture - [facility]See Below For Report Urine [facility] Testing performed at [facility] O:ESCCOL Isolated Urine Culture - [facility] [place] Count Organism: 1.1 Antibiotic Interpretation ILIA Status Urine Culture - [id number] [place] [address] Urine Culture - [facility] Testing performed at [facility] O:ESCCOL Isolated Urine Culture - [facility] [place] Count Organism: 1.1 Antibiotic Interpretation ILIA Status Urine Culture - [facility]See [facility] For Report Urine Culture - [facility] Testing performed at [facility] O:ESCCOL Isolated Urine Culture - [facility] [place] Count Organism: 1.1 Antibiotic Interpretation ILIA Status Urine Culture - [facility]MCSee Below For Report Urine Culture - [facility] Testing performed at [facility] O:ESCCOL Isolated Urine Culture - [facility] [place] Count Organism: 1.1 Antibiotic Interpretation ILIA Status Urine Culture - [facility]>100,000 Urine Culture - [facility] Testing performed at [facility] O:ESCCOL Isolated Urine Culture - [facility] [place] Count Organism: 1.1 Antibiotic Interpretation ILIA Status Urine Culture - [facility]MCSee Below For Report Urine Culture - [facility] Testing performed at [facility] O:ESCCOL Isolated Urine Culture - [facility] [place] Count Organism: 1.1 Antibiotic Interpretation ILIA Status Urine Culture - FRMCAmikacin S F Urine Culture - [facility] Testing performed at [facility] O:ESCCOL Isolated Urine Culture - [facility] [place] Count Organism: 1.1 Antibiotic Interpretation ILIA Status Urine Culture - FRMCAmoxicillin/Clavulanate S F Urine Culture - [facility] Testing performed at [facility] O:ESCCOL Isolated Urine Culture - [facility] [place] Count Organism: 1.1 Antibiotic Interpretation ILIA Status Urine Culture - FRMCAmpicillin S F Urine Culture - [facility] Testing performed at [facility] O:ESCCOL Isolated Urine Culture - [facility] [place] Count Organism: 1.1 Antibiotic Interpretation ILIA Status Urine Culture - FRMCAztreonam S F Urine Culture - [facility] Testing performed at [facility] O:ESCCOL Isolated Urine Culture - [facility] [place] Count Organism: 1.1 Antibiotic Interpretation ILIA Status Urine Culture - FRMCCeftazidime S F Urine Culture - [facility] Testing performed at [facility] O:ESCCOL Isolated Urine Culture - [facility] [place] Count Organism: 1.1 Antibiotic Interpretation ILIA Status Urine Culture - FRMCCeftazidime/Avibactam S F Urine Culture - [facility] Testing performed at [facility] O:ESCCOL Isolated Urine Culture - [facility] [place] Count Organism: 1.1 Antibiotic Interpretation ILIA Status Urine Culture - FRMCCeftolozane/Tazobactam S F Urine Culture - [facility] Testing performed at [facility] O:ESCCOL Isolated Urine Culture - [facility] [place] Count Organism: 1.1 Antibiotic Interpretation ILIA Status Urine Culture - FRMCCiprofloxacin S F Urine Culture - [facility] Testing performed at [facility] O:ESCCOL Isolated Urine Culture - [facility] [place] Count Organism: 1.1 Antibiotic Interpretation ILIA Status Urine Culture - FRMCErtapenem S F Urine Culture - [facility] Testing performed at [facility] O:ESCCOL Isolated Urine Culture - [facility] [place] Count Organism: 1.1 Antibiotic Interpretation ILIA Status Urine Culture - FRMCGentamicin S F Urine Culture - [facility] Testing performed at [facility] O:ESCCOL Isolated Urine Culture - [facility] [place] Count Organism: 1.1 Antibiotic Interpretation ILIA Status Urine Culture - FRMCLevofloxacin S F Urine Culture - [facility] Testing performed at [facility] O:ESCCOL Isolated Urine Culture - [facility] [place] Count Organism: 1.1 Antibiotic Interpretation ILIA Status Urine Culture - FRMCMeropenem S F Urine Culture - [facility] Testing performed at [facility] O:ESCCOL Isolated Urine Culture - [facility] [place] Count Organism: 1.1 Antibiotic Interpretation ILIA Status Urine Culture - FRMCMeropenem/Vaborbactam S F Urine Culture - [facility] Testing performed at [facility] O:ESCCOL Isolated Urine Culture - [facility] [place] Count Organism: 1.1 Antibiotic Interpretation ILIA Status Urine Culture - FRMCNitrofurantoin S F Urine Culture - [facility] Testing performed at [facility] O:ESCCOL Isolated Urine Culture - [facility] [place] Count Organism: 1.1 Antibiotic Interpretation ILIA Status Urine Culture - FRMCTetracycline S F Urine Culture - [facility] Testing performed at [facility] O:ESCCOL Isolated Urine Culture - [facility] [place] Count Organism: 1.1 Antibiotic Interpretation ILIA Status Urine Culture - FRMCTigecycline S F Urine Culture - [facility] Testing performed at [facility] O:ESCCOL Isolated Urine Culture - [facility] [place] Count Organism: 1.1 Antibiotic Interpretation ILIA Status Urine Culture - FRMCTobramycin S F Urine Culture - [facility] Testing performed at [facility] O:ESCCOL Isolated Urine Culture - [facility] [place] Count Organism: 1.1 Antibiotic Interpretation ILIA Status Urine Culture - FRMCAmpicillin/Sulbactam S F Urine Culture - [facility] Testing performed at [facility] O:ESCCOL Isolated Urine Culture - [facility] [place] Count Organism: 1.1 Antibiotic Interpretation ILIA Status Urine Culture - FRMCCefazolin S F Urine Culture - [facility] Testing performed at [facility] O:ESCCOL Isolated Urine Culture - [facility] [place] Count Organism: 1.1 Antibiotic Interpretation ILIA Status Urine Culture - FR[facility]CCefepime S F Urine Culture - [facility] Testing performed at [facility] O:ESCCOL Isolated Urine Culture - [facility] [place] Count Organism: 1.1 Antibiotic Interpretation ILIA Status Urine Culture - FRMCCeftriaxone S F Urine Culture - [facility] Testing performed at [facility] O:ESCCOL Isolated Urine Culture - [facility] [place] Count Organism: 1.1 Antibiotic Interpretation ILIA Status Urine Culture - FRMCCefuroxime S F Urine Culture - [facility] Testing performed at [facility] O:ESCCOL Isolated Urine Culture - [facility] [place] Count Organism: 1.1 Antibiotic Interpretation ILIA Status Urine Culture - FRMCPiperacillin/Tazobactam S F Urine Culture - [facility] Testing performed at [facility] O:ESCCOL Isolated Urine Culture - [facility] [place] Count Organism: 1.1 Antibiotic Interpretation ILIA Status Urine Culture - FRMCTrimethoprim/Sulfa S F Urine Culture - [facility] Testing performed at [facility] O:ESCCOL Isolated Urine Culture - [facility] [place] Count Organism: 1.1 Antibiotic Interpretation ILIA Status Performing Lab:see note ML - [facility] LB SEE REPORT - [employer] Id information not found for 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 legend Occult Blood* Reviewed date:11/07/2024 03:13:58 PM Interpretation: Performing Lab: Notes/Report: [facility] ,Occult BloodNegativePerforming Lab:see noteML - [facility] LBSecond ABO/RH Type Reviewed date:11/07/2024 03:13:58 PM Interpretation: Performing Lab: Notes/Report: [facility] ,Blood Type #2O PositiveBlood Culture 2 Reviewed date:11/12/2024 10:59:29 PM Interpretation: Performing Lab: Notes/Report: [facility] ,Blood Culture 2See Below For Report Blood Culture 2 NG5D NO GROWTH AT 5 DAYS.^NO GROWTH AT 5 DAYS. Performing Lab:see note - [facility] LBBlood Culture 1 Reviewed date:11/12/2024 10:59:29 PM Interpretation: Performing Lab: Notes/Report: [facility] ,Blood Culture 1See Below For Report Blood Culture 1 NG5D NO GROWTH AT 5 DAYS.^NO GROWTH AT 5 DAYS. Performing [facility] LBUA RANDOM W or MICROSCOPIC Reviewed date:11/07/2024 03:13:58 PM Interpretation: Performing Lab: Notes/Report: [facility] ,Color UrineYELLOWYELLOWClarity UrineCLOUDYCLEARSpecific Davis Urine1.025 1.005-1.025pH Urine6.05.0-9.0Protein Egelr252MDW/TRACE mg/dLGlucose Urine UA NEGATIVENEGATIVE mg/dLBilirubin UrineSMALLNEGATIVEKetones UrineNEGATIVENEGATIVE mg/dLBlood UrineSMALLNEGATIVENitrite UrineNEGATIVENEGATIVEUrobilinogen Urine2.0 0.2-1.0 EU/dLLeukocyte Esterase UrineTRACENEGATIVEWBC Urine5-10NONE SEEN #/HPF RBC Urine2-50-2 #/HPFBacteria UrineLARGENONE SEEN #/HPFMucus UrineNONE SEENNONE SEENSquamous Epithelial Cell UrineFEWNONE/RARE #/LPFCrystals Seen?None SeenNone Seen #/HPFCast Seen?NONE SEENNONE SEEN #/LPFUrine Culture IndicatedYES-[facility] Performing Lab:see note - [facility] LBCBC AUTO DIFF Reviewed date:11/07/2024 03:13:58 PM Interpretation: Performing Lab: Notes/Report: [facility] ,White Blood Count2.24.0-11.0 10 3/uLRed Blood Count1.264.20-5.40 10 6/uL Hemoglobin5.312.0-16.0 g/dLRESULTS CALLED TO DR. CHANCE WARE at 1016Hematocrit 15.636.0-48.0 %RESULTS CALLED TO DR. CHANCE WARE at 1016Mean Corpuscular Ucpofd826.881.0-99.0 fLMean Corpuscular Nkzqdvkoxq24.126.7-34.0 pgMean Corpuscular HGB Conc34.029.9-35.2 g/dLRed Cell Distribution Width13.311.0-15.0 % Platelet Ubglw79200-613 10 3/uLMean Platelet Stzjoy67.29.5-13.5 fLPerforming Lab:see noteML - [facility] LBErythrocyte Sedimentation Rate Reviewed date:09/07/2024 07:57:57 PM Interpretation: Performing Lab: Notes/Report: [facility] ,Erythrocyte Sedimentation Rate3<=30 mm/hrPerforming Lab:see note - [facility] LBVITAMIN D 25 [place] Reviewed date:09/07/2024 07:57:57 PM Interpretation: Performing Lab: Notes/Report: [facility] ,Vitamin D13.2 <20 ng/mL Vit D deficient 20-<30 ng/mL Vit D insufficient 30-100 ng/mL Vit D sufficient >100 ng/mL Potential Toxicity Performing Lab:see note - [facility] LBIRON Reviewed date:09/07/2024 07:57:57 PM Interpretation: Performing Lab: Notes/Report: [facility] ,Hlwy086.050.0-170.0 ug/dLPerforming Lab:see note - [facility] LB GLYCOHEMOGLOBIN A1C Reviewed date:09/07/2024 07:57:57 PM Interpretation: Performing Lab: Notes/Report: [facility] ,Glycohemoglobin A1C7.04.5-6.2 % ADA RECOMMENDED LIMIT 4.0 - 6.0 ADA THERAPEUTIC TARGET < 7.0 ACTION SUGGESTED > 7.0 Estimated Average Lrxtoov861Lfptqejgco Lab:see note - [facility] LB CBC AUTO DIFF Reviewed date:09/07/2024 07:57:57 PM Interpretation: Performing Lab: Notes/Report: [facility] ,White Blood Count4.34.0-11.0 10 3/uLRed Blood Count2.714.20-5.40 10 6/uL Gcolvanzed18.412.0-16.0 g/cQStrfgeonbh49.436.0-48.0 %Mean Corpuscular Volume 123.281.0-99.0 fLMean Corpuscular Celuknoded58.126.7-34.0 pgMean Corpuscular HGB Conc34.129.9-35.2 g/dLRed Cell Distribution Width17.111.0-15.0 %Platelet Count 157036-580 10 3/uLMean Platelet Rccslt79.59.5-13.5 fLNeutrophils Percent Auto 64.443.0-75.0 %Lymphocytes Percent Auto26.320.5-60.0 %Monocytes Percent Auto4.2 1.7-12.0 %Eosinophils Percent Auto2.10.9-7.0 %Basophils Percent Auto0.70.2-2.0 % Immature Granulocytes Pct Auto2.30.0-0.5 %Neutrophils Absolute Auto2.81.4-6.5 10 3/uLLymphocytes Absolute Auto1.11.2-3.8 10 3/uLMonocytes Absolute Auto0.20.3- 0.8 10 3/uLEosinophils Absolute Auto0.10.0-0.7 10 3/uLBasophils Absolute Auto0.0 0.0-0.1 10 3/uLImmature Granulocytes Abs Auto0.100.00-0.03 10 3/uLPerforming Lab:see noteML - [facility] LBBNP Reviewed date:09/07/2024 07:57:57 PM Interpretation: Performing Lab: Notes/Report: [facility] ,NT Pro B Type Natriuretic Zjxy592.0<=900.0 pg/mLPerforming Lab:see noteML - [facility] LB Reason For Referral Reason home health and phys ical therapy Diagnosis 1 Weakness (R53.1) Diagnosis 2 Vertigo (R42) Diagnosis 3 Arthralgia (M25.50) Referral Organization [facility] Referring Provider First Name Salazar Referring Provider Last Name Salina Referring Provider [facility] alexandra Referred Provider [facility] Referred Provider [facility] Referral Priority Routine Diagnosis 1 Neutropenia (D70.9) Diagnosis 2 Cirrhosis (K74.60) Diagnosis 3 Coagulopathy (D68.9) Diagnosis 4 Pancytopenia (D61.81 8) Diagnosis 5 Severe anemia (D64.9 ) Diagnosis 6 Thrombocytopenia (D6 9.6) Diagnosis 7 Diabetic neuropathy (E11.40) Referral Organization [facility] Referring Provider First Name Salazar Referring Provider Last Name Miguelwerner [facility] Referred Provider Special[facility] Referral Priority Routine Medications Medication SIG (Take, Route, Frequency, Duration) Notes Start Date End Date Status DULoxetine HCl 30 MG 1 capsule Orally Once a day ; Duration: 30 days 5ActiveVitamin B12 1000 MCG1 tablet Orally Once a day; Duration: 90 daysActiveFerrous Sulfate 325 (65 Fe) MG1 tablet Orally twice a day; Duration: 90 daysActiveVitamin D3 1.25 MG (56979 UT)1 capsule Orally weekly; Duration: days02/05/2025tiveCholecalciferol 1.25 MG (03694 UT)1 capsule Orally once weekly; Duration: days5ActiveclonazePAM 2 MG1 tablets Oral BID - TID; Duration: 5ActiveRosuvastatin Calcium 5 mgTAKE 1 TABLET DAILYActiveFreeStyle Ravin 3 Sensor -use 1 sensor every 14 days to monitor blood glucose levels. Dx: E11.9; Duration: 14 5ActiveGlimepiride 2 MG2 tablet with breakfast or the first main meal of the day and 1 tab at dinner Orally twice a day; Duration: 90 days5ActiveFolic Acid 1 MG1 tablet Orally Once a day; Duration: 5ActiveOndansetron 4 MG1 tablet on the tongue and allow to dissolve Orally qid11/06/2024Not-TakingFreeStyle Ravin 3 ReaderUse reader to monitor blood glucose levels. Dx: E11.8105Active NexIUM 40 MG1 tablet Orally daily; Duration: days5ActiveInsulin Glargine 100 UNIT/ML36 u Subcutaneous daily5ActiveLevothyroxine Sodium 150 MCG1 tablet Orally in the morning on an empty stomach; Duration: 90 days ActiveLiothyronine Sodium 5 MCGTAKE 2 TABLETS DAILYActive Social History Tobacco Use: Social History Observation Description Date Details (start date - stop date) Former Smoker NA - NA Alcohol Screen (Audit-C) Question Answer Notes Did you have a drink containing alcohol in the p ast year? No Ymvrks7EbqutfirzptstqWisshravQomeexd Control (Standard) Question Answer Notes Tobacco use: Former smoker AUDIT-C (Standard) Question Answer Notes Did you have a drink containing alcohol in the p ast year? 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) ActiveconfirmedProblemNon-suppurative otitis media (759322661)Unspecified nonsuppurative otitis media, left ear (H65.92)ActiveconfirmedProblemChronic respiratory failure (46022804)Chronic respiratory failure with hypoxia (J96.11) ActiveconfirmedProblemDisorder of tongue (44051606)Other diseases of tongue (K14.8)ActiveconfirmedProblemPalpitations (25104610)Palpitations (R00.2)Active confirmedProblemNasal congestion (54725078)Nasal congestion (R09.81)Active confirmedProblemSolitary pulmonary nodule (153647944)Solitary pulmonary nodule (R91.1)ActiveconfirmedProblemGastroesophageal reflux disease (578585729)GERD (gastroesophageal reflux disease) (K21.9)ActiveconfirmedProblemHypothyroid (79765246)Hypothyroid (E03.9)ActiveconfirmedProblemAnxiety state (604962271) Acute anxiety (F41.9)ActiveconfirmedProblemVitamin B12 deficiency (570600699) Vitamin B12 deficiency (E53.8)ActiveconfirmedProblemSleep apnea (37974924)Sleep apnea (G47.30)ActiveconfirmedProblemVertigo (674528546)Vertigo (R42)Active confirmedProblemElevated liver enzymes level (677921902)Elevated liver enzymes (R74.8)ActiveconfirmedProblemVitamin D deficiency (70325778)Vitamin D deficiency (E55.9)ActiveconfirmedProblemArthralgia (26956423)Arthralgia (M25.50)Active confirmedProblemAllergic rhinitis (01876590)Allergic rhinitis (J30.9)Active confirmedProblemFatty liver (460858614)Fatty liver (K76.0)ActiveconfirmedProblem Cirrhotic (103292903)Cirrhosis (K74.60)ActiveconfirmedProblemCervical disc disease (349878065)Cervical disc disease (M50.90)ActiveconfirmedProblem Cellulitis (189735755)Cellulitis (L03.90)ActiveconfirmedProblemPancytopenia (709380102)Pancytopenia (D61.818)ActiveconfirmedProblemDegenerative disc disease (04515963)DDD (degenerative disc disease), lumbar (M51.36)Activeconfirmed ProblemTobacco user (972285577)Cigarette nicotine dependence without complication (F17.210)ActiveconfirmedProblemThrombocytopenia (331184479) Thrombocytopenia (D69.6)ActiveconfirmedProblemParonychia (23287724)Paronychia (L03.019)ActiveconfirmedProblemDiabetic neuropathy (325032997)Diabetic neuropathy (E11.40)ActiveconfirmedProblemNeutropenia (141591694)Neutropenia (D70.9)ActiveconfirmedProblemDiverticular disease of colon (357655923) Diverticula of colon (K57.30)ActiveconfirmedProblemCoagulopathy (34194879) Coagulopathy (D68.9)ActiveconfirmedProblemAnemia (148969600)Severe anemia (D64.9)ActiveconfirmedProblemPolycythemia (360109845)Polycythemia (D75.1)Active confirmedProblemAbnormal hemoglobin (1161997)Abnormal hemoglobin (D58.2)Active confirmedProblemSI - Stress incontinence (72653944)Stress incontinence (N39.3) ActiveconfirmedProblemAcute urinary tract infection (053734806)Acute UTI (N39.0) ActiveconfirmedProblemAgoraphobia (85874798)Agoraphobia (F40.00)Activeconfirmed ProblemDisorder due to type 2 diabetes mellitus (010713452)Insulin dependent diabetes mellitus with complications (E11.8)ActiveconfirmedProblemAcute sinusitis (48291125)Acute non-recurrent sinusitis, unspecified location (J01.90) ActiveconfirmedProblemhypercholesterolemia (disorder) (09891526) Hypercholesteremia (E78.00)ActiveconfirmedProblemType II diabetes mellitus without complication (242082657)Controlled type 2 diabetes mellitus (E11.9) ActiveconfirmedProblemThyromegaly (4937028)Thyromegaly (E01.0)Activeconfirmed Vital Signs Blood pressure diastolic 82 mm Hg 04/26/2025 Kenlht40 in04/26/2025lood pressure xrxaivyl843 mm Hg04/26/20253858Skvrun567.2 lbs 04/26/2025BMI28.57 kg/m204/26/2025 Procedures Procedure Date Ordered Date Performed Result Body Sit e Holter Monitor - 3 days up to 14 days 02/05/2025 N/A Encounters Encounter Location Date Provider Diagnosis [address] [address] 07/03/2024 Salazar Hoy GERD (gastroesophage al reflux disease) K21.9 ; Hypothyroid E03.9 ; Controlled type 2 diabetes mellitus E11.9 ; Solitary pulmonary nodule R91.1 and Vertigo R42 [address] [address] 09/05/2024 Salazar Hoy Palpitations R00.2 ; GERD (gastroesophageal reflux disease) K21.9 and Hypothyroid E03.[address] [address] 11/06/2024 Salazar Hoy GERD (gastroesophage al reflux disease) K21.9 ; Elevated liver enzymes R74.8 and Hypothyroid E03.9 [facility] [address] [facility] [place] [address] 11/17/2024 Salazar Hoy Hypothyroid E03.9 ; GERD (gastroesophageal reflux disease) K21.9 and Pancytopenia D61.818 [facility] [address] [place] [address] 04/18/2025 Salazar Hoy Controlled type 2 diabetes mellitus E11.9 and Insulin dependent diabetes mellitus with complications E11.8 [facility] [address] [facility] [place] [address] 04/26/2025 Salazar Hoy Paronychia L03.019 [facility] [address] [place] [address] 02/05/2025 Salazar Hoy Fatty liver K76.0 ; Palpitation R00.2 and Acute anxiety F41.9 [facility] [address] [place] [address] 09/27/2024 Salazar Hoy Hypothyroid E03.9 an d GERD (gastroesophageal reflux disease) K21.9 [facility] [address] [facility] [place] [address] 06/30/2024 Salazar Hoy Controlled type 2 diabetes mellitus E11.9 [facility] [address] [facility] [address] 08/01/2024 Salazar Hoy [facility] [place] [address] 08/28/2024Doug HoyWellness examination Z01.89[place] [address] [facility] [place] [address]/13/2025Doug HoyAbnormal hemoglobin D58.2BNicole [place] [address] [place] [address] 09/27/2024Doug HoyAcute non-recurrent sinusitis, unspecified location J01.90[facility] [facility] [address]/03/2025 Salazar HoyBHeart [facility] [facility] [place] [address]/Doug [facility] [facility] [place] [address]/[facility] [facility] [place] [address]/05/2025[facility] [facility] [place] [address]/[facility] [facility] [place] [address]/ Salazar [facility] [facility] [place] [address]/[facility] [facility] [place] [address]/[facility] [facility] [place] [address]/[facility] [facility] [place] [address]/[facility] [facility] [place] [address]/ Salazar HoyWeakness R53.1 ; Arthralgia M25.50 and Vertigo R72GthibqdHeart of the [facility]ies [facility] Center[address] [facility] [place] [address]/Doug Hoy Neutropenia D70.9 ; Coagulopathy D68.9 ; UTI (urinary tract infection) N39.0 ; Hypokalemia E87.6 and Cirrhosis K74.60[facility] [facility] [place] [address]/[facility] [facility] [place] [address]/[facility] [facility] [place] [address]/ [facility] [facility] [place] [address]/Doug HoyGERD (gastroesophageal reflux disease) K21.9BHeart of the [facility]ies [facility] Center[address] [facility] [place] [address]/09/2024 Salazar HoyGERD (gastroesophageal reflux disease) K21.9BHeart of the [facility]ies [facility] [facility] [place] [address]/04/2025Doug [facility] [facility] [place] [address]/07/2024 [facility] [facility] [place] [address]/02/2025[facility] [facility] [place] [address]/[facility] [facility] [place] [address]/02/2025[facility] [address] [facility] [place] [address]/[facility] [facility] [place] [address]/Doug [facility] [facility] [place] [address] 04/30/2025[facility] [facility] [place] [address]/08/2024Doug HoyElectronic Health Pqcmhiv[address] [facility], [place] [address]Doug yElectronic Health Fjrzxdu[address] [facility], [place] [address] [facility] [place] [address]/Doug [address] [place] [address]/15/2025Doug HoyParonychia L03.019 ; Acute non-recurrent sinusitis, unspecified location J01.90 and 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 Assessments Encounter Date Diagnosis (ICD Code) Assessment Notes Treatment Notes Treatment Clinical Notes Section Notes 07/03/2024 GERD (gastroesophageal reflux di sease) (ICD-10 - K21.9) 07/03/2024Hypothyroid (ICD-10 - E03.9)09/05/2024Palpitations (ICD-10 - R00.2) 09/05/2024GERD (gastroesophageal reflux disease) (ICD-10 - K21.9)09/27/2024 Hypothyroid (ICD-10 - E03.9)09/27/2024GERD (gastroesophageal reflux disease) (ICD-10 - K21.9)11/06/2024GERD (gastroesophageal reflux disease) (ICD-10 - K21.9)11/06/2024Elevated liver enzymes (ICD-10 - R74.8)04/18/2025ontrolled type 2 diabetes mellitus (ICD-10 - E11.9)04/18/2025Insulin dependent diabetes mellitus with complications (ICD-10 - E11.8)04/26/2025Paronychia (ICD-10 - L03.019)06/30/2024ontrolled type 2 diabetes mellitus (ICD-10 - E11.9)08/28/2024 Wellness examination (ICD-10 - Z01.89)09/07/2024bnormal hemoglobin (ICD-10 - D58.2)09/27/2024ute non-recurrent sinusitis, unspecified location (ICD-10 - J01.90)11/17/2024Weakness (ICD-10 - R53.1)11/17/2024rthralgia (ICD-10 - M25.50) 11/17/2024Hypothyroid (ICD-10 - E03.9)11/17/2024GERD (gastroesophageal reflux disease) (ICD-10 - K21.9)02/05/2025Fatty liver (ICD-10 - K76.0)11/23/2024 Neutropenia (ICD-10 - D70.9)11/23/2024oagulopathy (ICD-10 - D68.9)01/22/2025 GERD (gastroesophageal reflux disease) (ICD-10 - K21.9)01/29/2025GERD (gastroesophageal reflux disease) (ICD-10 - K21.9)06/11/2025Vertigo (ICD-10 - R42)06/11/2025Paronychia (ICD-10 - L03.019)06/11/2025ute non-recurrent sinusitis, unspecified location (ICD-10 - J01.90)11/23/2024UTI (urinary tract infection) (ICD-10 - N39.0)02/05/2025Palpitation (ICD-10 - R00.2)11/17/2024 Pancytopenia (ICD-10 - D61.818)11/17/2024Vertigo (ICD-10 - R42)11/06/2024 Hypothyroid (ICD-10 - E03.9)09/05/2024Hypothyroid (ICD-10 - E03.9)07/03/2024 Controlled type 2 diabetes mellitus (ICD-10 - E11.9)07/03/2024Solitary pulmonary nodule (ICD-10 - R91.1)02/05/2025ute anxiety (ICD-10 - F41.9)11/23/2024 Hypokalemia (ICD-10 - E87.6)06/11/2025Other primary ovarian failure (ICD-10 - E28.39)5Cirrhosis (ICD-10 - K74.60)07/03/2024Vertigo (ICD-10 - R42) Plan Of Treatment Pending Test Test Name Order Date CMP (COMPLETE METABOLIC PANEL) HEMOGLOBIN A1C (GLYCO) 09/05/2024 IRON, TOTAL 09/05/2024 IRON, TOTAL 11/06/2024 LIPID PANEL (CHOL/TRIG/HDL/LDL) 09/06/19 25 VITAMIN D, 25 LEVEL (TOTAL) 09/05/2024 DEXA Axial Skeleton (hips, pelvis, spin e)* 06/11/2025 T3 FREE, T4 FREE and TSH 09/17/2023 FECAL OCCULT BLOOD 09/17/2023 FECAL OCCULT BLOOD 08/28/2024 COMPREHENSIVE METABOLIC PROFILE WITH GFR 06/11/2025 CMP - Comprehensive Metabolic Panel 08/2024 CT Chest Low Dose for Screening* 023 CBC W/AUTO DIFF 09/07/2024 CBC W/AUTO DIFF 06/11/2025 FLUORO UPPER GI WITH AIR WITH KUB [...] Date MMO [employer] [address] [place] [id number] [id number] Yemi Thomas Spouse - patient is the [...] Allergic rhinitis J30.9 Surgical History Surgery Date(Month/Year) Tonsills Total HysterectomyORIF Tarsal MetatarsalAppendixRight KneeLeft FootRight Wrist EGD4
--- OUTSIDE RECORDS SUMMARY | 2025-06-18 09:31 | XMS_ITS | Encounter Summary ---
Author Organization [facility] Address [address] [place] [address] Care Team Providers Care Cnc Machine Operator Name Role Phone Henrik Downing MD Primary Care Provider [phone] Encounter Details DateTypeDepartmentCare Team (Latest Contact Info)Xnutpgmwczt83/31/2025Telephone [facility] [address] [facility] [address] [place] [address] Misty Peng MD [address] [facility] [address] [place] [address] Social History Tobacco UseTypesPacks/DayYears UsedDateSmoking Tobacco: Every DayCigarettes Smokeless Tobacco: NeverAlcohol UseStandard Drinks/WeekCommentsNot Currently0 (1 standard drink = 0.6 oz pure alcohol)caffeine: yes, coffeeComments UnknownSex and Gender InformationValueDate RecordedSex Assigned at BirthNot on fileLegal TutHnhxfx14/15/2023 6:59 PM EDTGender IdentityNot on fileSexual OrientationNot on filedocumented as of this encounter Miscellaneous Notes * Telephone Encounter - Savannah Pink - 06/13/2025 11:09 AM EST I informed pt of estimated financial responsibility of $470 due on DOS. I explained that this is just an estimate and could be more or less. Pt verbalized understanding and agreed to proceed with scheduling. Pt is scheduled 08/06/2025 @ 10:[address] Peng. * Telephone Encounter - Savannah Pink - 06/13/2025 11:09 AM EST Pt stated she is keeping same insurance for next year. Estimated financial responsibility would be $470 (all deduct) due on DOS. * Telephone Encounter - Sandee Elkins LPN - 06/07/2025 1:34 PM EST Pt LM requesting to schedule excision for EIC on the mid chest. * Telephone Encounter - Savannah Pink - 05/01/2025 10:33 AM EST Spoke with pt and informed her that we are scheduling into next year. Pt stated she would like to hold off on scheduling for now, as she is unsure if her insurance will change. Informed pt to call meback when she would like to schedule. * Telephone Encounter - Savannah Pink - 04/27/2025 1:18 PM EDT LVM * Telephone Encounter - Savannah Pink - 04/27/2025 1:17 PM EDT Pt requests to have cyst of mid chest 0.7 x 0.5 cm removed. Estimated financial responsibility would be $45 (all co-ins) due on DOS. documented in this encounter Plan of Treatment DateTypeDepartmentCare Team (Latest Contact Info)Enwtazbswub92/09/2026 10:00 AM ESTProcedure Visit [facility] [address] [place] [address] Misty Peng MD [address] [place] [address] 01/10/2026 10:20 AM EDTOffice Visit [facility] [address] [place] [address] Misty Peng MD [address] [place] [address] documented as of this encounter Visit Diagnoses Not on filedocumented in this encounter Care Teams Team MemberRelationshipSpecialtyStart DateEnd Date Henrik Downing MD [address] [place] [address] PCP - GeneralFamily Obtfgrec05/6/23documented as of this encounter
--- OUTSIDE RECORDS SUMMARY | 2025-06-18 09:31 | XMS_ITS | Clinical Summary ---
Author Organization [facility] Address [address] [place] [address] Care Team Providers Care Claim Adjuster Name Role Phone Henrik Downing MD Primary Care Provider [phone] Allergies Active AllergyReactionsCriticalityNoted KupwFgtknmlrXqaimhizgyy70/02/2023 Other Reaction(s): Unknown Sulfa Ctrnknidfhd62/20/2018 Other Reaction(s): Unknown, Vomiting Dodbjnuhgytc31/02/2023 Other Reaction(s): Unknown Medications MedicationSigDispense QuantityRefillsLast FilledStart [...] DateDiagnosed DateOME (otitis media with effusion), left06/09/2023 Refhjpt6004/29/2023astroesophageal reflux lakyrkq3404/29/2023Neurologic disorder associated with diabetes gqoqnhab51/02/2023Other atopic jngecqltpu23/02/2023 Chronic jahygzivtu42/02/2023hronic pvcumova98/02/2023Other chronic sinusitis 04/29/2023ain in right knee04/29/2023eripheral uutgxid7804/29/2023ure jltnloaapbqqnkmqxxla99/02/2023Sleep apnea04/29/2023Spondylosis of lumbosacral rrioxj1804/29/2023Squamous cell carcinoma of skin of trunk04/29/2023Hypothyroidism 04/29/20237893Lhaytdtzbdf68/02/2023DDD (degenerative disc disease), cervical 3DDD (degenerative disc disease), encptv0404/29/2023 Resolved Problems ProblemNoted DateDiagnosed DateResolved DateLeukoplakia of oral mucosa and aswnpj473106/29/2022 Encounters DateTypeDepartmentCare XxihMhnezxpjvhw79/31/2025Telephone [facility] [address] [place] [address] Misty Peng MD 04/16/2025 11:15 AM EDTOffice Visit [facility] [address] [place] [address] Misty Peng MD Epidermal inclusion cyst (Primary Dx); Other specified erythematous iuzhcikcgk52/20/2025amboo flowsheet [facility] [address] [place] [address] Misty Peng MD 04/16/20254684Yglmvu99/14/2025 10:15 AM EDTOffice Visit [facility] [place] [address] Yordy Bruce PA Acute pain of right knee (Primary Dx); Arthritis of right knee; Chondromalacia, patella, right; Acute pain of left knee04/10/2025amboo flowsheet [address] [address] [place] [address] Yordy Bruce PA 04/10/20251174Hakqcm63/29/2025Telephone [facility] [address] [place] [phone] Sandee Elkins LPN 03/21/2025 9:55 AM EDTAncillary Procedure [facility] [place] [address] 03/21/2025 9:50 AM EDTAncillary Procedure [facility] [place] [address] 03/21/2025 9:45 AM EDTOffice Visit [address] [place] [address] [place] [address] Yordy Bruce PA Acute pain of right knee (Primary Dx); Acute pain of left knee; Arthritis of right knee; Chondromalacia, patella, right03/21/2025amboo flowsheet [address] [address] [place] [address] Yordy Bruce PA 03/21/2025Travelfrom Last 3 Months Immunizations ImmunizationAdministration DatesNext OjpPhxr2101/31/2010 Family History Medical HistoryRelationNameCommentsCancerFatherDiabetesMotherHypertensionMother Brain cancerSisterDiabetesSisterHypertensionSisterMultiple myelomaNeg [...] Last Filed Vital Signs Vital SignReadingTime TakenCommentsBlood Qbvasonb435/8308/25/2023 9:03 AM EST Pulse--Temperature--Respiratory Rate--Oxygen Saturation--Inhaled Oxygen Concentration--Ilnwrj21.8 kg (165 lb)08/25/2023 9:03 AM ISYXkgedz776.5 cm (5' 2 )08/25/2023 9:03 AM ESTBody Mass Index30.18008/25/2023 9:03 AM EST Plan of Treatment DateTypeDepartmentCare Team (Latest Contact Info)Epmuydmagwi05/09/2026 10:00 AM ESTProcedure Visit [facility] [address] [address] Misty Peng MD [address] [address] 01/10/2026 10:20 AM EDTOffice Visit [facility] [address] [phone] Misty Peng MD [address] [address] Procedures Procedure NamePriorityDate/TimeAssociated DiagnosisCommentsPR ARTHROCENTESIS ASPIR&/INJ MAJOR JT/BURSA W/O GMQwubixu63/24/2025 10:23 AM EDT Arthritis of right knee Chondromalacia, patella, right XR KNEE 1-2 VIEWS AILLTAuzzckg96/24/2025 9:48 AM EDT Acute pain of right knee XR KNEE 1-2 VIEWS QJOTDtdmoqp11/24/2025 9:45 AM EDT Acute pain of left [...] Consent was given by the patient. Authorizing ProviderResult TypeResult Veronika Bruce [facility]/BEDSIDE ORDERABLESFinal Result * XR [...] right knee. Authorizing ProviderResult TypeResult Veronika Bruce [facility] XR PROCEDURES Edited Result - Final * [...] tricompartmental arthritis left knee. Authorizing ProviderResult TypeResult StatusMatthew Rachell Bruce [facility] XR PROCEDURES Edited Result - Final from Last 3 Months Insurance Care Teams Team MemberRelationshipSpecialtyStart DateEnd Henrik Downing MD [address] [place] [address] PCP - GeneralFamily Uokbfoso60/6/23
--- OUTSIDE RECORDS SUMMARY | 2025-06-18 09:31 | XMS_ITS | Clinical Summary ---
Author Organization [facility] Address [address] [place] [address] Care Team Providers Care Char Conveyor Tender Name Role Phone Юлия Guerra MD Unavailable [phone] Henrik Downing MD Primary Care Provider [phone] Allergies Active AllergyReactionsCriticalityNoted CkeuUmsazmsjZumuynilpuuKwvtqtv93/02/2023 Other Reaction(s): Unknown Sulfa (Sulfonamide Antibiotics)Njworecw05/20/2018 Other Reaction(s): Unknown, Vomiting OileyksicgpkZuderys32/02/2023 Other Reaction(s): Unknown Medications MedicationSigDispense QuantityRefillsLast FilledStart [...] daily.5Active Active Problems ProblemNoted DateDiagnosed DateVitamin D zayxeuixuu76/14/0513Wugkkqq10/14/2025 Type 2 diabetes mellitus without ixwzkaaykbezz32/14/2025Tobacco user11/08/2024 Stress incontinence of urine11/08/2024Solitary pulmonary wxyxit1811/08/2024 Elevated liver tyioitt6911/08/2024Diverticular disease of colon11/08/2024Diabetic /14/1922Ptuhepntxib50/14/2025bnormal urvxbyxgvy49/14/2025 Gastroesophageal reflux lqswqth5504/29/20237301Jocspbotydgqoa57/02/2023ure wrecrlqudbmqihupidjr25/02/2023Sleep apnea04/29/2023DD (degenerative disc disease), vglwfc6904/29/2023DD (degenerative disc disease), bhxzgpuo19/02/2023 Squamous cell carcinoma of skin of trunk04/29/2023eripheral erybzqr3804/29/2023 Other atopic xxragvqqgw21/02/2023 Encounters DateTypeDepartmentCare LdcdEdmhqklczwb40/01/2025Telephone Hematology/Oncology [address] [phone] Loc Toribio MD, PhD Patient Question; Returning Patient's Callfrom Last 3 Months Immunizations ImmunizationAdministration DatesNext Duetetanus diphtheria pertussis (Tdap) vaccine, age 7+ yr (ADACEL, BOOSTRIX)01/31/2010 Social History Tobacco UseTypesPacks/DayYears UsedDateSmoking Tobacco: FormerCigarettes Tobacco Cessation:Counseling Given: Not Answered Area Deprivation IndexAnswerDate RecordedNational Score (1-100), lower number is lower arvx553601/31/2025State Score (1-10), lower number is lower gpkm49901/31/2025 Data from: https://www.neighborhoodatlas.medicine.[facility].edu/. Last address used for mq[address]01/31/2025CommentsUnknownSex and Gender InformationValueDate RecordedSex Assigned at BirthNot on fileLegal SexFemale 11/08/2024 7:19 AM EDTGender IdentityNot on fileSexual OrientationNot on file Last Filed Vital Signs Vital SignReadingTime TakenCommentsBlood Ksckwzjp330/95001/31/2025 12:38 PM EDT Left arm zajipxsFfzbj8621/06/2025 12:38 PM YFOJxwjutsxgie46.7 ??C (98 ??F) 01/31/2025 12:38 PM EDTRespiratory Qbet611201/31/2025 12:38 PM EDTOxygen Dlokyevwmh69%01/31/2025 12:38 PM EDTInhaled Oxygen Concentration--Jwamml77 kg (143 lb 4.8 oz)01/31/2025 12:38 PM PSIYkundq248 cm (5' 1.42 )01/31/2025 12:38 PM EDTBody Mass Index26.71001/31/2025 12:38 PM EDT Plan of Treatment Health MaintenanceDue DateLast SebmGhprewoqLgG7H26/02/1969Diabetic Foot Exam 1973Dilated Retinal Exam1973Urine Albumin:Creatinine Ratio1973 Annual PCP Team Chronic Disease Visit1981Depression Zcgfjhzlt80/02/1982 Hepatitis C Vkihxeqep25/02/1982LDL Zjafggvcxlq71/02/1982Pneumococcal Vaccine: 50+ (1 of 2 - PCV)1982Shingrix Vaccine (1 of 2)1982Cervical Cancer Gjabogqys24/02/1985Mammogram Apqodjzya96/02/2004CT Acatohfygaol57/02/2009Fecal Occult Blood06/29/20088502Trylxybfqtgne60/02/2009RSV Vaccine (1 - Risk 50-74 years 1-dose series)2013DTaP,Tdap,Td Vaccine (2 - Td or Tdap)02/01/2020 01/31/20100699Hjecbrzzvpu97Covid-19 Vaccine ( season) 5107/30/2020, 09/28/2020, 09/07/2020Influenza Vaccine (#1)2025 05/29/2021, 05/16/2018, 05/04/2018, Additional history existsCologuard (FIT-DNA) 8010/19/2024olorectal Cancer Dgvhwhuzv47/24/2028HIV ScreeningCompleted 11/14/2024 Procedures Procedure NamePriorityDate/TimeAssociated DiagnosisCommentsEXTERNAL LAB 05/21/2025 8:59 AM EST EXTERNAL LAB03/26/2025 11:54 AM EDT from Last 3 Months Results * EXTERNAL LAB (05/21/2025 8:59 AM EST) Only the most recent of2 resultswithin the time period is included. Narrative Authorizing ProviderResult TypeResult StatusExternal Provider PA-CLABORATORY Final Result from Last 3 Months Insurance Care Teams Team MemberRelationshipSpecialtyStart DateEnd Date Henrik Dowinng MD [address] [place] [address] PCP - GeneralFamily Medicine01/24/25 Юлия Guerra MD [address] [place] [phone] ReferringHematology/Oncology01/24/25
--- OUTSIDE RECORDS SUMMARY | 2025-06-18 09:32 | XMS_ITS | Clinical Summary ---
Author Organization [facility] Address [address] [place] [address] Care Team Providers Care Instrument Setter Name Role Phone Henrik Downing MD Primary Care Provider [phone] Юлия Guerra MD Unavailable [phone] Allergies No known active allergies Medications [...] Problems ProblemNoted DateDiagnosed DateRecurrent cold sores01/01/2025Vitamin B12 pfoxgnrprc74/18/2025 Assessment & Plan (11/13/2024 6:50 AM EDT): -Low at OSH and received multiple doses IM replacement -Appropriate levels on recheck here Assessment & Plan (11/12/2024 10:40 AM EDT): -Low at OSH and received multiple doses IM replacement -Appropriate levels on recheck here Vhxyplzrcuzmc13/18/2025 Assessment & Plan (11/13/2024 6:50 AM EDT): -Elevated at OSH but were unremarkable here -Hyperbilirubinemia, AST>ALT Assessment & Plan (11/12/2024 10:40 AM EDT): -Elevated at OSH but were unremarkable here -Hyperbilirubinemia, AST>ALT Heart jlesos6611/11/2024 Assessment & Plan (11/13/2024 6:50 AM EDT): [...] obtain TTE at this point Moderate protein-calorie luoyijxudhvi93/16/2025 Assessment & Plan (11/13/2024 6:50 AM EDT): -RD following, see below Assessment & Plan (11/12/2024 10:40 AM EDT): -RD following, see below Assessment & Plan (11/11/2024 6:52 AM EDT): -RD following, see below Assessment & Plan (11/10/2024 3:28 PM EDT): -RD following, see below Nnjnmjfbwqnd00/15/2025 Assessment & Plan (11/13/2024 7:00 AM EDT): -Concerning for B12 deficiency vs iatrogenic vs MDS vs MPN vs malignancy, less likely MAHA process -OSH smear showing rare schistocytes, repeat smear here negative for schistocytes -MEDMKS36 activity mildly low which is nonspecific, however [...] repeat smear here negative for schistocytes -f/u DNVJVM76 activity, PNH flow, BMBx results -CT imaging [...] repeat smear here negative for schistocytes -f/u DLBTGH34 activity, PNH flow, BMBx results -CT imaging [...] schistocytes, repeat smear here -Check hemolysis labs, YBTMFP47 -HemOnc on board, grateful for their input -Will be undergoing BMBx today -Daily CBC however minimize phlebotomy as much as possible Assessment & Plan (11/09/2024 11:41 PM EDT): - Initial labs at [facility] found to be WBC 2.2, hemoglobin 5.3, platelet count 31 Repeat labs at [facility] show WBC 3.49, hemoglobin 8.4, platelet count 26 -Concern for TTP -Type and screen is been completed -Transfuse for hemoglobin less than 7 and a platelet count less than 10 unless actively bleeding -Hematology/oncology consult -N.p.o. at midnight for bone marrow biopsy Acute kmzcykohdktmyu15/15/2025 Assessment & Plan (11/13/2024 6:50 AM EDT): [...] secondary to low hemoglobin Acute cystitis without nvwdidlsz14/15/2025 Assessment & Plan (11/13/2024 6:50 AM EDT): [...] 11:34 PM EDT): - ISS, ACHS Acquired eupayiqvizyxio93/15/2025 Assessment & Plan (11/13/2024 6:50 AM EDT): [...] (11/09/2024 11:34 PM EDT): - Continue rosuvastatin Kkyiznp4811/09/2024 Assessment & Plan (11/13/2024 6:50 AM EDT): -Continue Celexa Assessment & Plan (11/12/2024 10:40 AM EDT): -Continue Celexa Assessment & Plan (11/11/2024 6:52 AM EDT): -Continue Celexa Assessment & Plan (11/10/2024 3:28 PM EDT): -Continue Celexa Assessment & Plan (11/09/2024 11:34 PM EDT): - Continue Celexa Family History Medical HistoryRelationNameCommentsBrain cancerBrotherCOPDFatherProstate cancer FatherThyroid diseaseFatherCOPDMotherHeart failureMotherThyroid diseaseMotherckd MotherhtnMotherRelationNameStatusCommentsBrotherFatherMother Social History Tobacco UseTypesPacks/DayYears UsedDateSmoking Tobacco: LevlhnXwhvtdgvyr920.3 Started: 06/28/1976Smokeless Tobacco: Never Tobacco Cessation:Counseling Given: Not Answered Alcohol UseStandard Drinks/WeekCommentsNever0 (1 standard drink = 0.6 oz pure alcohol)[facility] UtilitiesAnswerDate RecordedIn the past 12 months has the iPowow, gas, oil, or water [employer] threatened to shut off services in your [...] hard at all11/09/2024PHQ-2 AnswerDate RecordedPatient Health Questionnaire-2 Izdtp991Transportation AnswerDate RecordedIn the past 12 months, has [...] or living in a detention (including now)? No11/09/2024Hunger Vital SignAnswerDate RecordedWithin the past 12 months, you worried that your food would run out before you got the money to buymore.Never true11/09/2024Ran Out of Food in the Last YearNot on file11/09/2024 CommentsUnknownSex and Gender InformationValueDate RecordedSex Assigned at Tdmmwt8811/10/2024 8:57 AM EDTLegal MrbMjczeq81/29/2022 10:47 PM EDTGender AlbwurswFlsxez53/16/2025 8:57 AM EDTSexual OrientationHeterosexual or Straight 11/10/2024 8:57 AM EDT Last Filed Vital Signs Vital SignReadingTime TakenCommentsBlood Adxfxyef671/8301/23/2025 3:19 PM EDT Xapux030601/23/2025 3:19 PM OAWNdykdfvujir75.8 ??C (98.3 ??F)01/23/2025 3:19 PM EDTRespiratory Ajqh564311/23/2024 10:03 AM EDTOxygen Aecaxdydsy86%01/23/2025 3:19 PM EDTInhaled Oxygen Concentration--Ernemy03.6 kg (149 lb)01/23/2025 3:19 PM EDT Mvpkuk406.5 cm (5' 2 )12/27/2024 10:13 AM EDTBody Mass Index27.25012/27/2024 10:13 AM EDT Plan of Treatment DateTypeDepartmentCare Team (Latest Contact Info)Phnwttgcoqb92/27/2026 11:00 AM ESTOffice Visit [facility] [address] [place] [address] Юлия Guerra MD [address] [place] [address] Health MaintenanceDue DateLast DoneCommentsCT Pxmndcehrvnd03/02/1964Diabetes: Hemoglobin A1C1963FOBT1963 9121Peotsardpxify11/02/1964Diabetes: Retinopathy Dgmwtlpzs82/02/1974Diabetes: Urine Protein Fiudrglir57/02/1983 Pneumococcal Vaccine: Pediatrics (0 to 5 Years) and At-Risk Patients (6 to 64 Years) (1 of 2 - PCV)1982Pap Smear1984Cervical Cancer Screening 1993HPV/Szgila1606/29/19937242Zcyidqwpn34/02/2004Zoster Vaccines (1 of 2) 2013dult Dfqnaiw74COVID-19 Vaccine ( season) , 09/28/2020, 09/07/2020Influenza Vaccine (#1)2025 05/29/2021, 05/16/2018, 05/04/2018, Additional history hxztdwOFE52/24/2026 10/19/2024Depression Ibxnadidl66FIT-DNA Xzkburezuyg90/03/202909/08/2018Colorectal Cancer Vkldutubj30/03/2029HIB Vaccines Aged OutNo longer eligible based on [...] on patient's age to complete this topic Insurance Advance Directives * Full Code (Latest Code Status on File) Date ActivatedDate InactivatedComments11/09/2024 8:51 PM11/14/2024 5:06 PM Care Teams Team MemberRelationshipSpecialtyStart DateEnd Date Henrik Downing MD [address] [facility] [place] [address] PCP - GeneralFamily Medicine11/10/24 Юлия Guerra MD [address] [place] [address] Consulting PhysicianHematology and Oncology11/23/24
== END 2025-06-18 09:30 | disposition home or self-care (01) ==
LOC: RAD 09:29
PROVIDERS: PCP Family Medicine; Visit Provider Family Medicine
DX: E28.39 Other primary ovarian failure (principal); M85.88 Other specified disorders of bone density and structure, other site
CPT/HCPCS: 77080